=== PATIENT | female | born 1950 | race African-American/Black ===

== ENCOUNTER 2017-04-20 18:53 | Inpatient (IN) | payer OTHER ==
[2017-04-20] MEDS ORDERED: LORazepam 2 MG/ML SDV VIAL ONE (19:06)
[2017-04-20] MEDS ORDERED: NALOXONE HCL 0.4 MG/ML VIAL IVPUSH ONE (19:07)
[2017-04-20 19:27] LABS: BASOPHIL 0.6 % (0-2.0); EOSINOPHIL 0.1 % (0-4.5); MCH 29.2 pg (25.7-33.7); MCHC 32.6 g/dl (32.0-36.0); MEAN CELL VOLUME 89.6 fl (80-96); MEAN PLT VOLUME 8.5 fl (7.5-11.1); NEUTROPHILS 87.5 % (42.8-82.8); PLATELET COUNT 187 K/MM3 (134-434); RDW 18.1 % (11.6-15.6)
--- NOTE | 2017-04-20 19:47 | PDOC ---
History of Present Illness - General Chief Complaint: Injury Stated Complaint: FALL Time Seen by Provider: 04/20/17 19:04 History Source: Patient Exam Limitations: Clinical Condition - History of Present Illness Initial Comments: This is a female of unknown age and name with unknown medical history who presents BIBA after her called 911 because she had fallen on the floor and was not able to pick herself up after being on the floor for about 24 hours. EMS states that the patient was laying on the carpeted floor on their arrival on scene at her home. The explained that he found her on the floor yesterday but she said she felt fine, so he did not call 911 until he saw her in the same place on the floor this evening. The patient herself is minimally verbal but here in the ED she is able to convey that she has no pain, no headache, and she has been having left-sided weakness for the past three days which is what caused her to fall yesterday. She notes recently having been admitted to the hospital (states recently discharged back home) but is unable to say why she was admitted. She denies any recent illness. She cannot communicate her medical history or what medications she takes. She denies any heroin or opiate use. Past History - Past Medical History Allergies/Adverse Reactions: Allergies Allergy/AdvReac Type Severity Reaction Status Date / Time No Allergy Information Allergy Verified 04/20/17 19:02 Available Home Medications: Ambulatory Orders Unobtainable [Unobtainable] 04/21/17 Review of Systems - Review of Systems Able to Perform ROS?: No (clinical condition) *Physical Exam - Physical Exam General Appearance: Yes: Disheveled, Other (smells of urine, red carpet threads scattered in hair, unkempt, initially having an apparent diffuse tonic-clonic seizure which lasts about 30 seconds and resolves without intervention, initially not wearing C-collar) HEENT: positive: Hearing Grossly Normal, Other (mild left-sided subconjunctival hemorrhage, pupils are pinpoint bilaterally, left-sided raccoon eye, TMs not visualized due to cerumen impaction, no Cutler sign, no CSF rhinorrhea or otorrhea seen, small amount of yellow eye discharge bilaterally, small amount of thick oral secretions on lips, no tongue bite/lesion but small inferior lip skin tear, ). negative: Nasal Congestion Neck: positive: Trachea midline, Supple. negative: Tender, Rigid Respiratory/Chest: positive: Lungs Clear, Normal Breath Sounds. negative: Respiratory Distress, Crackles, Rhonchi, Stridor, Wheezing Cardiovascular: positive: Regular Rhythm, Regular Rate. negative: Murmur Gastrointestinal/Abdominal: positive: Normal Bowel Sounds, Soft. negative: Tender, Organomegaly, Pulsatile Mass, Guarding Musculoskeletal: positive: Normal Inspection. negative: Decreased Range of Motion, Vertebral Tenderness Extremity: positive: Normal Capillary Refill, Normal Inspection, Normal Range of Motion. negative: Tender, Cyanosis Integumentary: positive: Normal Color, Dry, Warm. 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 house II-XII NML intact, Fully Oriented, Alert, Normal Mood/ Affect, Normal Response, Motor Strength 5/5 Heart Score/ECG Review - History History: Moderately suspicious - Electrocardiogram EKG: Non specific repolarization disturbance - Age Age: >/= 65 - Risk Factors Based on the list above the patient has:: No risk factors known - Troponin Troponin: >/=3x normal limit - Score Heart Score - Total: 6 (Pt is a Jennifer Carranza at the time of this HEART score, no PMH known) ED Treatment Course - LABORATORY CBC & Chemistry Diagram: 04/20/17 19:10 04/20/17 20:25 - RADIOLOGY Radiology Studies Ordered: EXAM#: TYPE/EXAM: RESULT: [id number] CT/HEAD CT WITHOUT CONTRAST Cranial CT without contrast Clinical information: altered mental status; fall Multiplanar imaging was performed. No intracranial hemorrhage is seen. There is no CT evidence of intracranial injury or calvarial fracture. No discrete infarct is identified within the limitations of CT. There is no gross mass lesion. No abnormal attenuation is noted. Involutional changes are seen with mild ventricular dilatation. The mastoid air cells and partially imaged paranasal sinuses demonstrate no opacification. Impression: No CT evidence of acute intracranial pathology. Reported By: Lawrence Gunderson MD 04/20/171945 EXAM#: TYPE/EXAM: RESULT: [id number] CT/CERVICAL SPINE CT W/O CONTR Cervical spine CT (without contrast) Clinical information: fall There is no CT evidence of fracture or traumatic malalignment. Apparent incidental note is made of curvilinear calcification within the central canal posteriorly at levels C4-C6 probably on a degenerative basis. There is mild to moderate multilevel ventral spondylosis as well as mild multilevel bilateral facet arthropathy. The perivertebral soft tissues demonstrate no discrete abnormality. Impression: No fracture is identified. Reported By: Lawrence Gunderson MD 04/20/172004 Comments: No e/o active infectious process or other acute cardiopulmonary processes Medical Decision Making - Medical Decision Making Middle-aged female arrives via EMS as Jennifer Carranza with unknown PMH and unknown date. Active seizure with tonic-clonic movements all limbs, trunk, head lasts about 30 seconds. Confusing recent history of having fallen to the ground yesterday, found by , still on floor today and so 911 was called. Patient not moving right arm or leg, motor strength 1/5 right and 5/5 left, but sensory intact bilaterally. Able to answer yes/no to about 10 questions before beginning to seize again, lasts 1 minute. Pupils pinpoint on arrival without change with Narcan. Pt taken to CT with 1 mg Ativan drawn up in case of repeat seizure. Pt given Ativan during third seizure, then 1 gm Keppra, no repeat seizures. DDX includes but not limited to CVA, encephalitis (i.e. HSV), meningitis, ACS, sepsis/infection. Ordered is CT head/neck, CXR, CBCD, CMP, Mg, Phos, blood cx, lactate, cardiac profile, EKG, coags. ASA given as well. Initial EKG with significant limb lead artifact but no precordial ST-T changes or pathological q-waves. 04/20/17 21:05 Lactate results 2.7, troponin >2, CPK >3000, NICOLÁS as well. Pt re-assessed, sleeping with snoring respirations and protecting airway, opens eyes only to sternal rub. Pt opens eyes to sternal rub only, otherwise unreactive to pain, incomprehensible sounds currently. 04/20/17 22:30 Did not do LP because the patient did not complain of head/neck/back pain, was not febrile. Did not do tPA because the patient noted right sided weakness for 3 days, now high risk for hemorrhagic conversion. 04/20/17 23:20 Pt's repeat EKG shows ST elevations inferiorly with pathologic q-waves in III. Did not give heparin despite ST elevations and Q-waves inferiorly because of risk for hemorrhagic conversion. 04/21/17 00:25 Dr. Sims did speak with technical trainer Dr. Moss who agrees with plan to hold heparin. Also notes little value in PCI at this point as she does not have reciprocal ST depressions on EKG, no active STEMI. Pt is admitted to hospitalist team, ICU bed, Neuro and Cardiology consults placed. *DC/Admit/Observation/Transfer Diagnosis at time of Disposition: Lactic acidosis, Seizure, NICOLÁS (acute kidney injury) CVA (cerebral vascular accident) Qualifiers: CVA mechanism: unspecified Qualified Code(s): I63.9 - Cerebral infarction, unspecified UTI (urinary tract infection) Qualifiers: Urinary tract infection type: acute cystitis Hematuria presence: without hematuria Qualified Code(s): N30.00 - Acute cystitis without hematuria Rhabdomyolysis Qualifiers: Rhabdomyolysis type: non-traumatic Qualified Code(s): M62.82 - Rhabdomyolysis - Discharge Dispostion Condition at time of disposition: Guarded Admit: Yes NIH Stroke Scale - Initial Evaluation Level of consciousness: Not alert, but arousable with minimal stimulation Ask patient the month and their age: Both incorrect Ask patient to open & close eyes; make fist and let go: Obeys both correctly Best gaze (horizontal eye movement): Normal Visual field testing: No visual field loss Facial paresis (Show teeth/raise eyebrows/close eyes tight): Complete paralysis of one or both sides (Upper and lower face) Motor Function: Left Arm: Normal Motor Function: Right Arm: No movement Motor Function: Left Leg: Normal (extends leg 30 degrees for 5 seconds without drift) Motor Function: Right Leg: No movement Limb Ataxia: Present in one limb Sensory(Use pinprick test arms,legs,trunk,face/side to side): Normal Best language (Describe picture, name items, read sentences): Severe aphasia Dysarthria (read several words): Mild to moderate slurring of words Extinction and Inattention: Inattention or extinction bilaterally to one of the sensory modalities - Total Score NIH Stroke Scale Score: 19
[2017-04-20 19:51] LABS: INR 0.98 (0.82-1.09); PROTHROMBIN TIME (PATIENT) 10.8 SEC (9.98-11.88)
[2017-04-20] MEDS ORDERED: levETIRAcetam 500 MG/5 ML INJECTION VIAL IVPB ONE ×2 (19:51→20:03)
[2017-04-20 19:53] LABS: ACTIVATED PTT 23.8 SECONDS (26.9-34.4)
[2017-04-20 20:00] LABS: URINE APPEARANCE CLOUDY; URINE BILIRUBIN NEGATIVE (NEGATIVE); URINE BLOOD 1+ (NEGATIVE); URINE COLOR DKYELLOW; URINE GLUCOSE (UA) NEGATIVE (NEGATIVE); URINE KETONE TRACE (NEGATIVE); URINE NITRITE NEGATIVE (NEGATIVE); URINE UROBILINOGEN NEGATIVE mg/dL (0.2-1.0)
[2017-04-20 20:04] LABS: URINE LEUK ESTERASE 3+ (NEGATIVE); URINE PROTEIN 1+ (NEGATIVE)
[2017-04-20 20:08] LABS: URINE BACTERIA RARE /hpf (NONE SEEN); URINE MUCUS FEW; URINE WBC 25 /hpf (3-5)
[2017-04-20 20:18] LABS: URINE MARIJUANA THC NEGATIVE ng/ml (CUTOFF=50)
[2017-04-20 21:21] LABS: ALCOHOL < 5.0 mg/dl (0-5)
[2017-04-20 21:25] LABS: ALBUMIN 3.6 g/dl (3.4-5.0); ANION GAP 8 (8-16); BILIRUBIN,TOTAL 1.6 mg/dL (0.2-1.0); CALCIUM 9.8 mg/dL (8.5-10.1); CO2 30 mmol/L (21-32); CREATININE 1.2 mg/dL (0.55-1.02); GLUCOSE,RANDOM 102 mg/dL (74-106); MAGNESIUM 2.3 mg/dL (1.8-2.4); PHOSPHOROUS 2.5 mg/dL (2.5-4.9); SGOT/AST 139 U/L (15-37); SGPT/ALT 59 U/L (12-78); TOT PROT 7.9 g/dl (6.4-8.2)
[2017-04-20 21:39] LABS: SALICYLATE < 4.0 mg/dl (0.0-30.0)
[2017-04-20 21:40] LABS: ALK PHOS 67 U/L (45-117)
[2017-04-20 21:41] LABS: CPK 3458 IU/L (26-192)
[2017-04-20 21:42] LABS: TROPONIN I 2.74 ng/ml (0.00-0.05)
[2017-04-20] MEDS ORDERED: CEFTRIAXONE 1 GM in DEXTROSE 5%-WATER - 50 ML IVPB ONE (22:00)
[2017-04-20] MEDS ORDERED: CEFTRIAXONE 50 ML ONE (22:20)
[2017-04-20] MEDS ORDERED: SODIUM CHLORIDE 2,000 ML IV STA (22:21)
--- NOTE | 2017-04-20 22:47 | CONSULT ---
Consult Consult Specialty:: Critical Care/Pulm Reason for Consultation:: Altered mental status - History of Present Illness Chief Complaint: unable to obtain per patient, "altered mental status" per report History of Present Illness: This is a 74-year-old female with unknown past medical history who presented to the ED via EMS today after having fallen approximately 24 hours ago. Per report , the patient was BIBA after her activated 911 because she had fallen on the floor. Per the 's report (obtained from chart review) she was found lying on the floor yesterday and she said to him that she felt fine. He decided not to call 911 at the time but did call today when she was found in the same place. Per EMS on their arrival she was lying on the floor and was unable to provide any detailed history. Upon arrival to the ED she was minimally verbal but was able to deny pain and headache. She endorsed left- sided weakness for the past three days which she stated was the cause of her fall. She reports a recent hospital admission but did not provide any further information. In the ED, T 99.1, HR 85, BP 129/107, RR 19 with SpO2 100% on NC 2 LPM. Initial labs were notable for WBC 19, Cr 1.2 (unknown baseline), Lactate 2.7, CK 3458, Trop 27 and UA with 25 WBCs. While in the ED per report she had 4 generalized tonic clonic seizures each lasting less than 1 minutes. She received Lorazepam IVP and was loaded with Keppra per neurology. A CT head was negative for acute bleed and CT spine did not show any fracture. She was given a dose of Ceftriaxone, 2 L normal saline and is being sent to the ICU for further management. Of note a Utox was +benzos (unclear if obtained post Lorazepam). - History Source History Provided By: Medical Record Limitations to Obtaining History: Clinical Condition - Smoking History Smoking history: Unknown if ever smoked - Social History Usual Living Arrangement: With Spouse Home Medications - Allergies Allergies/Adverse Reactions: Allergies Allergy/AdvReac Type Severity Reaction Status Date / Time No Allergy Information Allergy Verified 04/20/17 19:02 Available Family Disease History - Family Disease History Family History: Unable to Obtain Physical Exam Vital Signs: Vital Signs Temperature 99.1 F 04/20/17 19:02 Pulse Rate 83 04/20/17 19:54 Respiratory Rate 12 04/20/17 19:54 Blood Pressure 102/72 04/20/17 19:54 O2 Sat by Pulse Oximetry (%) 100 04/20/17 20:45 Labs: CBC, BMP 04/20/17 19:10 04/20/17 20:25
[2017-04-21] MEDS ORDERED: SODIUM CHLORIDE 1,000 ML IV SCH ×3 (00:45→15:15)
--- NOTE | 2017-04-21 01:07 | PN ---
Teaching Attending Note Name of Resident: Stefan Henley ATTENDING PHYSICIAN STATEMENT I saw and evaluated the patient. I reviewed the resident's note and discussed the case with the resident. I agree with the resident's findings and plan as documented. SUBJECTIVE: Elderly female that was brought for evaluation with altered mental status . According to EDP and ER staff patient arrived with paramedics after she was found down on the floor unable to get up 1 day. She was extremely lethargic and disoriented upon arrival. She had 3 episodes of generalized tonic clonic seizures in ED for which she received Ativan IV . No further history was able to be collected. No prior records are available. ED course/workup was significant for UTI Leukocytosis Elevated Lactate level Abnormal EKG Abnormal physical exam - right hemiparesis OBJECTIVE: Vital Signs Temperature 99 F 04/21/17 05:00 Pulse Rate 79 04/21/17 05:00 Respiratory Rate 20 04/21/17 05:00 Blood Pressure 113/74 04/21/17 05:00 O2 Sat by Pulse Oximetry (%) 100 04/21/17 01:51 Constitutional: Yes: No Distress, Poor Hygeine Eyes: Yes: PERRL (Left conjunctival hemorrhage) HENT: Yes: Atraumatic, Normocephalic Neck: Yes: Supple, Trachea Midline Cardiovascular: Yes: Regular Rate and Rhythm, S1, S2 Respiratory: Yes: CTA Bilaterally Gastrointestinal: Yes: WNL, Soft, Hyperactive Bowel Sounds Renal/: Yes: Handy Present Extremities: Yes: WNL Neurological: Yes: Facial Droop (R facial droop. RUE withdraws to pain. 4/5 strength LUE. LLE 4/5. RLE not wothdrawing. Garbled speech.), Lethargy Labs: Abnormal Lab Results 04/20/17 04/20/17 04/20/17 19:10 19:10 19:44 WBC 19.0 H RBC 5.32 H Hgb 15.5 H Hct 47.7 H RDW 18.1 H Neutrophils % 87.5 H Lymphocytes % 4.8 L PTT (Actin FS) 23.8 L BUN Creatinine Lactic Acid Total Bilirubin AST Creatine Kinase CK-MB (CK-2) Troponin I Urine Protein 1+ H Urine Ketones Trace H Urine Blood 1+ H Acetaminophen 04/20/17 04/20/17 04/20/17 20:20 20:20 20:25 WBC RBC Hgb Hct RDW Neutrophils % Lymphocytes % PTT (Actin FS) BUN 32 H Creatinine 1.2 H Lactic Acid 2.7 H* Total Bilirubin 1.6 H AST 139 H Creatine Kinase 3458 H CK-MB (CK-2) 12.338 H Troponin I 2.74 H* Urine Protein Urine Ketones Urine Blood Acetaminophen < 2.0 L 04/21/17 04/21/17 00:30 00:30 WBC RBC Hgb Hct RDW Neutrophils % Lymphocytes % PTT (Actin FS) BUN Creatinine Lactic Acid 2.3 H* Total Bilirubin AST Creatine Kinase 2735 H CK-MB (CK-2) 11.276 H Troponin I 2.55 H* Urine Protein Urine Ketones Urine Blood Acetaminophen EKG ECG was significant for ST elevations in the inferior murray with Q waves however EKG is poor quality ASSESSMENT AND PLAN: 1. Acute right sided hemiparesis - acute CVA complicated by new onset seizure . No evidence of bleed on CT . Out of the window for TPA - ICU monitoring - telemetry - neuro checks - prmissive HTN - ASA rectally - MRI - Swallow eval - c/w Keppra IV 2. Acute Rhabdomyolisis and Acute Renal Failure- likely secondary to fall - IVF at 125 cc/hr - monitor CPK - monitor BMP 3. Severe sepsis secondary to UTI - iv rocephine - urine cultures - repeat lactic acid 4. NSTEMI - as per cardiology heparin was placed on hold - ASA rectally - EKG - ECHO
--- NOTE | 2017-04-21 01:15 | CONSULT ---
Consult Consult Specialty:: Pulm/Critical Care Reason for Consultation:: Altered mental status - History of Present Illness Chief Complaint: Per records "altered mental status" History of Present Illness: This is a 74-year-old female with unknown past medical history who presented to the ED via EMS today after having fallen approximately 24 hours ago. Per report , the patient was BIBA after her activated 911 because she had fallen on the floor. Per the 's report (obtained from chart review) she was found lying on the floor yesterday and she said to him that she felt fine. He decided not to call 911 at the time but did call today when she was found in the same place. Per EMS on their arrival she was lying on the floor and was unable to provide any detailed history. Upon arrival to the ED she was minimally verbal but was able to deny pain and headache. She endorsed right- sided weakness for the past three days which she stated was the cause of her fall. She reports a recent hospital admission but did not provide any further information. In the ED, T 99.1, HR 85, BP 129/107, RR 19 with SpO2 100% on NC 2 LPM. Initial labs were notable for WBC 19, Cr 1.2 (unknown baseline), Lactate 2.7, CK 3458, Trop 2.7 and UA with 25 WBCs. While in the ED per report she had 4 generalized tonic clonic seizures each lasting less than 1 minute. She received Lorazepam IVP and was loaded with Keppra per neurology. She has persistent right-sided hemiparesis. A CT head was negative for acute bleed and CT spine did not show any fracture. MRI brain pending. Per neuro out of the window for TPA. Also, of note a Utox was +benzos (unclear if obtained post Lorazepam). Additionally, ECG was significant for ST elevations in the inferior murray with Q waves and cardiology was curbsided. Given the time frame per cards the only intervention recommended was ASA. Heparin was considered but held in the setting of CVA. She received Ceftriaxone, 2L NS and is now being admitted to ICU for further care. On arrival to ICU, she reports her name is Sherri. She is intermittently answering yes/no questions but not providing further history. She is able to follow simples commands. She is moving the left side spontaneously, withdrawing to pain in the RUE. - History Source History Provided By: Medical Record Limitations to Obtaining History: Clinical Condition (Unable to obtain history per patient) - Smoking History Smoking history: Unknown if ever smoked Home Medications - Allergies Allergies/Adverse Reactions: Allergies Allergy/AdvReac Type Severity Reaction Status Date / Time No Allergy Information Allergy Verified 04/20/17 19:02 Available - Home Medications Home Medications: Ambulatory Orders Unobtainable [Unobtainable] 04/21/17 Family Disease History - Family Disease History Family History: Unable to Obtain Review of Systems Unable to obtain ROS, reason: unable to obtain, Physical Exam Vital Signs: Vital Signs Temperature 99.1 F 04/20/17 19:02 Pulse Rate 94 H 04/21/17 00:58 Respiratory Rate 25 H 04/21/17 00:58 Blood Pressure 110/71 04/21/17 00:58 O2 Sat by Pulse Oximetry (%) 100 04/21/17 00:58 Constitutional: Yes: No Distress, Poor Hygeine Eyes: Yes: PERRL (Left conjunctival hemorrhage) HENT: Yes: Atraumatic, Normocephalic Neck: Yes: Supple, Trachea Midline Cardiovascular: Yes: Regular Rate and Rhythm, S1, S2 Respiratory: Yes: CTA Bilaterally Gastrointestinal: Yes: WNL, Soft, Hyperactive Bowel Sounds Renal/: Yes: Handy Present Extremities: Yes: WNL Neurological: Yes: Facial Droop (R facial droop. RUE withdraws to pain. 4/5 strength LUE. LLE 4/5. RLE not wothdrawing. Garbled speech.), Lethargy Labs: CBC 04/20/17 19:10 Troponin, BNP 04/20/17 04/20/17 04/21/17 19:10 20:25 00:30 Troponin I Cancelled 2.74 H* 2.55 H* CMP Sodium 139 mmol/L (136-145) 04/20/17 20:25 Potassium 3.6 mmol/L (3.5-5.1) 04/20/17 20:25 Chloride 101 mmol/L (98-107) 04/20/17 20:25 Carbon Dioxide 30 mmol/L (21-32) 04/20/17 20:25 Anion Gap 8 (8-16) 04/20/17 20:25 BUN 32 mg/dL (7-18) H 04/20/17 20:25 Creatinine 1.2 mg/dL (0.55-1.02) H 04/20/17 20:25 Creat Clearance w eGFR 44.16 (>60) 04/20/17 20:25 POC Glucometer 163.31020 UNITS (()) 04/20/17 19:10 Random Glucose 102 mg/dL (74-106) 04/20/17 20:25 Lactic Acid 2.3 mmol/L (0.4-2.0) H* 04/21/17 00:30 Calcium 9.8 mg/dL (8.5-10.1) 04/20/17 20:25 Phosphorus 2.5 mg/dL (2.5-4.9) 04/20/17 20:25 Magnesium 2.3 mg/dL (1.8-2.4) 04/20/17 20:25 Total Bilirubin 1.6 mg/dL (0.2-1.0) H 04/20/17 20:25 AST 139 U/L (15-37) H 04/20/17 20:25 ALT 59 U/L (12-78) 04/20/17 20:25 Alkaline Phosphatase 67 U/L (45-117) 04/20/17 20:25 Creatine Kinase 2735 IU/L (26-192) H 04/21/17 00:30 Creatine Kinase Index 0.3 % (0.0-5.0) 04/20/17 20:25 CK-MB (CK-2) 12.338 ng/mL (0.5-3.6) H 04/20/17 20:25 Troponin I 2.55 ng/ml (0.00-0.05) H* 04/21/17 00:30 Total Protein 7.9 g/dl (6.4-8.2) 04/20/17 20:25 Albumin 3.6 g/dl (3.4-5.0) 04/20/17 20:25 Initial Vital Signs Temp Pulse Resp BP Pulse Ox 99.1 F 85 19 129/107 100 04/20/17 19:02 04/20/17 19:02 04/20/17 19:02 04/20/17 19:02 04/20/17 19:02 Active Medications Generic Name Dose Route Start Last Admin Trade Name Freq PRN Reason Stop Dose Admin Chlorhexidine Gluconate 1 applic 04/21/17 22:00 Hibiclens For Decolonization - TP HS CLEMENTE Sodium Chloride 1,000 mls @ 100 mls/hr 04/21/17 01:11 Normal Saline - IV ASDIR CLEMENTE Ceftriaxone Sodium 1 gm/ 100 mls @ 200 mls/hr 04/21/17 10:00 Dextrose IVPB DAILY CLEMENTE Levetiracetam 500 mg 04/21/17 10:00 Keppra Injection - IVPB BID CLEMENTE Mupirocin 1 applic 04/21/17 10:00 Bactroban Ointment (For Decolonization) - NS 04/26/17 09:59 BID CLEMENTE Imaging - Results Cat Scan: Report Reviewed EKG: Pending Problem List - Problems (1) NICOLÁS (acute kidney injury) Code(s): N17.9 - ACUTE KIDNEY FAILURE, UNSPECIFIED (2) CVA (cerebral vascular accident) Code(s): I63.9 - CEREBRAL INFARCTION, UNSPECIFIED Qualifiers: CVA mechanism: unspecified Qualified Code(s): I63.9 - Cerebral infarction, unspecified (3) Lactic acidosis Code(s): E87.2 - ACIDOSIS (4) Seizure Code(s): R56.9 - UNSPECIFIED CONVULSIONS Assessment/Plan A/P: This is a 74-year-old female with unknown past medical history who was BIBA after being found at home on the floor for about 24 hours found to have right-sided weakness c/w CVA as well as elevated troponin and ST changes with Q waves with c/c/b seizure activity now being admitted to the ICU for further care. Neuro: Right-sided paralysis c/w CVA with initial CT Head negative for acute bleed with c/c/b seizure activity now s/p Keppra load and altered mental status -Neurology consulted, to follow -Not within window for TPA -Pending MRI Brain -Continue Keppra -Consider cEEG -Lipid panel -Frequent neuro checks -Dysphagia eval -Statin when LFTs improve CV: Elevated troponin with ECG s/f ST changes and Q waves -Consult cardiology -Continuous telemetry -ASA per cards -No role for Heparin given CVA per cards -Trend Trop -TTE -Trend lactate -Repeat ECG Renal: Acute kidney injury (unknown baseline) likely in the setting of dehydration given poor PO intake with elevated lactate -IVFs as needed -Handy for strict Is and Os -Trend Cr and electrolytes -Consider renal US and urine lytes if no improvement s/p IVF resuscitation Pulm: Stable on NC -High risk for aspiration in setting of CVA -HOB elevated -Supplemental O2 as needed ID: Leukocytosis c/f underlying infection with urine WBC 25 -Ceftriaxone -Reza-culture -Follow up urine culture -Trend fever and WBC GI: NPO for now -Dyshpagia eval -BR Endo: No active issues -FS -AISS PPX: Venodynes Total Critical Care Time: 35 mins CHRISTIAN Layne
--- NOTE | 2017-04-21 01:17 | HP ---
CHIEF COMPLAINT: fall, weakness PCP: unknown HISTORY OF PRESENT ILLNESS: History unable to be obtained. Per Ed "This is a female of unknown age and name with unknown medical history who presents BIBA after her called 911 because she had fallen on the floor and was not able to pick herself up after being on the floor for about 24 hours. EMS states that the patient was laying on the carpeted floor on their arrival on scene at her home. The explained that he found her on the floor yesterday but she said she felt fine, so he did not call 911 until he saw her in the same place on the floor this evening. The patient herself is minimally verbal but here in the ED she is able to convey that she has no pain, no headache, and she has been having left-sided weakness for the past three days which is what caused her to fall yesterday. She notes recently having been admitted to the hospital (states recently discharged back home) but is unable to say why she was admitted. She denies any recent illness. She cannot communicate her medical history or what medications she takes. She denies any heroin or opiate use. In the ED, patient began having 4 generalized tonic clonic seizures, lasting 1 min. She received lorazepam and was given Keppra per neurology. ER course was notable for: (1) VS- wnl, (2) WBC- 19, lacic acid-2.7, BUN-23, Cr-1.2, CK- 3458, Troponin-2.74, CKMB- 12.338, AST-139, T bili- 1.6 (3) UA- wbc-25 (4) GCS-7 per ED, EKG-St elevations inferiorly with q waves in III (5) Keppra, ativan, narcan, rocephin Recent Travel: unknown PAST MEDICAL HISTORY: unknown PAST SURGICAL HISTORY: unknown Social History: Smoking: unknown Alcohol: unknown Drugs: unknown Family History: Allergies No Allergy Information Available Allergy (Verified 04/20/17 19:02) HOME MEDICATIONS: REVIEW OF SYSTEMS -- unable to be obtained CONSTITUTIONAL: Absent: fever, chills, diaphoresis, generalized weakness, malaise, loss of appetite, weight change HEENT: Absent: rhinorrhea, nasal congestion, throat pain, throat swelling, difficulty swallowing, mouth swelling, ear pain, eye pain, visual changes CARDIOVASCULAR: Absent: chest pain, syncope, palpitations, irregular heart rate, lightheadedness , peripheral edema RESPIRATORY: Absent: cough, shortness of breath, dyspnea with exertion, orthopnea, wheezing, stridor, hemoptysis GASTROINTESTINAL: Absent: abdominal pain, abdominal distension, nausea, vomiting, diarrhea, constipation, melena, hematochezia GENITOURINARY: Absent: dysuria, frequency, urgency, hesitancy, hematuria, flank pain, genital pain MUSCULOSKELETAL: Absent: myalgia, arthralgia, joint swelling, back pain, neck pain SKIN: Absent: rash, itching, pallor HEMATOLOGIC/IMMUNOLOGIC: Absent: easy bleeding, easy bruising, lymphadenopathy, frequent infections ENDOCRINE: Absent: unexplained weight gain, unexplained weight loss, heat intolerance, cold intolerance NEUROLOGIC: Absent: headache, focal weakness or paresthesias, dizziness, unsteady gait, seizure, mental status changes, bladder or bowel incontinence PSYCHIATRIC: Absent: anxiety, depression, suicidal or homicidal ideation, hallucinations. PHYSICAL EXAMINATION Vital Signs - 24 hr 04/20/17 04/20/17 04/20/17 19:02 19:54 20:45 Temperature 99.1 F Pulse Rate 85 Pulse Rate [ 83 Apical] Respiratory 19 12 Rate Blood Pressure 129/107 Blood Pressure 102/72 [Left Arm] O2 Sat by Pulse 100 100 100 Oximetry (%) 04/20/17 22:20 Temperature Pulse Rate Pulse Rate [ Apical] Respiratory Rate Blood Pressure 93/67 Blood Pressure [Left Arm] O2 Sat by Pulse Oximetry (%) General: Disheveled, awake, confused, lethargic, unable to fully respond to questions HEENT: Hearing normal, Left eye subconjunctival hemorrhage, pinpoint pupils, left sided racoon eye, thick oral secretions on lips Neck: tachea midline, supple, no jvd Lungs: Lungs clear to auscultation bilaterally, no wheezes, crackles, or accessory muscle use Heart: s1/s2, rrr. no murmurs, gallops, or rubs GI: BS+, nontender, nondistended, no organomegaly, no guarding Neuro: Right facial droop, 4/5 LUE/LLE, Lethargic Laboratory Results - last 24 hr 04/20/17 04/20/17 04/20/17 19:10 19:10 19:10 WBC 19.0 H RBC 5.32 H Hgb 15.5 H Hct 47.7 H MCV 89.6 MCH 29.2 MCHC 32.6 RDW 18.1 H Plt Count 187 MPV 8.5 Neutrophils % 87.5 H Lymphocytes % 4.8 L Monocytes % 7.0 Eosinophils % 0.1 Basophils % 0.6 PT with INR 10.80 INR 0.98 PTT (Actin FS) 23.8 L Sodium Cancelled Potassium Cancelled Chloride Cancelled Carbon Dioxide Cancelled Anion Gap Cancelled BUN Cancelled Creatinine Cancelled Creat Clearance w eGFR Cancelled POC Glucometer Random Glucose Cancelled Lactic Acid Calcium Cancelled Phosphorus Cancelled Magnesium Cancelled Total Bilirubin Cancelled AST Cancelled ALT Cancelled Alkaline Phosphatase Cancelled Creatine Kinase Creatine Kinase Index CK-MB (CK-2) Troponin I Total Protein Cancelled Albumin Cancelled Urine Color Urine Appearance Urine pH Ur Specific [place] Urine Protein Urine Glucose (UA) Urine Ketones Urine Blood Urine Nitrite Urine Bilirubin Urine Urobilinogen Urine RBC Urine WBC Urine Bacteria Urine Mucus Salicylates Opiates Screen Methadone Screen Acetaminophen Barbiturate Screen Phencyclidine Screen Ur Amphetamines Screen MDMA (Ecstasy) Screen Benzodiazepines Screen Cocaine Screen U Marijuana (THC) Screen Alcohol, Quantitative 04/20/17 04/20/17 04/20/17 19:10 19:10 19:44 WBC RBC Hgb Hct MCV MCH MCHC RDW Plt Count MPV Neutrophils % Lymphocytes % Monocytes % Eosinophils % Basophils % PT with INR INR PTT (Actin FS) Sodium Potassium Chloride Carbon Dioxide Anion Gap BUN Creatinine Creat Clearance w eGFR POC Glucometer [id number] Random Glucose Lactic Acid Calcium Phosphorus Magnesium Total Bilirubin AST ALT Alkaline Phosphatase Creatine Kinase Cancelled Creatine Kinase Index CK-MB (CK-2) Troponin I Cancelled Total Protein Albumin Urine Color Dkyellow Urine Appearance Cloudy Urine pH 7.0 Ur Specific [place] 1.015 Urine Protein 1+ H Urine Glucose (UA) Negative Urine Ketones Trace H Urine Blood 1+ H Urine Nitrite Negative Urine Bilirubin Negative Urine Urobilinogen Negative Urine RBC None Urine WBC 25 Urine Bacteria Rare Urine Mucus Few Salicylates Opiates Screen Methadone Screen Acetaminophen Barbiturate Screen Phencyclidine Screen Ur Amphetamines Screen MDMA (Ecstasy) Screen Benzodiazepines Screen Cocaine Screen U Marijuana (THC) Screen Alcohol, Quantitative 04/20/17 04/20/17 04/20/17 19:44 20:20 20:20 WBC RBC Hgb Hct MCV MCH MCHC RDW Plt Count MPV Neutrophils % Lymphocytes % Monocytes % Eosinophils % Basophils % PT with INR INR PTT (Actin FS) Sodium Potassium Chloride Carbon Dioxide Anion Gap BUN Creatinine Creat Clearance w eGFR POC Glucometer Random Glucose Lactic Acid 2.7 H* Calcium Phosphorus Magnesium Total Bilirubin AST ALT Alkaline Phosphatase Creatine Kinase Creatine Kinase Index CK-MB (CK-2) Troponin I Total Protein Albumin Urine Color Urine Appearance Urine pH Ur Specific [place] Urine Protein Urine Glucose (UA) Urine Ketones Urine Blood Urine Nitrite Urine Bilirubin Urine Urobilinogen Urine RBC Urine WBC Urine Bacteria Urine Mucus Salicylates < 4.0 Opiates Screen Negative Methadone Screen Negative Acetaminophen < 2.0 L Barbiturate Screen Negative Phencyclidine Screen Negative Ur Amphetamines Screen Negative MDMA (Ecstasy) Screen Negative Benzodiazepines Screen Positive Cocaine Screen Negative U Marijuana (THC) Screen Negative Alcohol, Quantitative < 5.0 04/20/17 20:25 WBC RBC Hgb Hct MCV MCH MCHC RDW Plt Count MPV Neutrophils % Lymphocytes % Monocytes % Eosinophils % Basophils % PT with INR INR PTT (Actin FS) Sodium 139 Potassium 3.6 Chloride 101 Carbon Dioxide 30 Anion Gap 8 BUN 32 H Creatinine 1.2 H Creat Clearance w eGFR 44.16 POC Glucometer Random Glucose 102 Lactic Acid Calcium 9.8 Phosphorus 2.5 Magnesium 2.3 Total Bilirubin 1.6 H AST 139 H ALT 59 Alkaline Phosphatase 67 Creatine Kinase 3458 H Creatine Kinase Index 0.3 CK-MB (CK-2) 12.338 H Troponin I 2.74 H* Total Protein 7.9 Albumin 3.6 Urine Color Urine Appearance Urine pH Ur Specific [place] Urine Protein Urine Glucose (UA) Urine Ketones Urine Blood Urine Nitrite Urine Bilirubin Urine Urobilinogen Urine RBC Urine WBC Urine Bacteria Urine Mucus Salicylates Opiates Screen Methadone Screen Acetaminophen Barbiturate Screen Phencyclidine Screen Ur Amphetamines Screen MDMA (Ecstasy) Screen Benzodiazepines Screen Cocaine Screen U Marijuana (THC) Screen Alcohol, Quantitative ASSESSMENT/PLAN: Female presenting s/p fall for 24 hours admitted for AMS r/o CVA with generalized tonic clonic seizures, rhabdomyolysis, and elevated troponin. #Altered Mental Status, likely 2/2 to CVA vs UTI with generalized tonic clonic seizures -ICU monitoring -Echo pending -Neuro checks q2h for worsening mental status -Speech/Swallow consult, Jodi Bermudez -Keppra 500 mg iv bid -IVF NS @ 125 cc/hr -MRI pending -Neurology consulted, Dr. Vasquez #Rhabdomyolysis 2/2 to fall -IVF NS @ 125 cc/hr -Repeat CPK in am -Repeat labs in am #Troponinemia, demand vs NSTEMI -Troponins elevated -Will trend troponins/ekg -Repeat EKG in AM -Echo pending #Severe Sepsis 2/2 to UTI -Continue ceftriaxone 1 gm IV -Lactic acid elevated -Will repeat q2h until normalizes -Pt received 1 dose of ceftriaxone 1 gm IV -UCX, BCX pending #FEN/GI -IVF NS @ 125 cc/hr -wnl -NPO #PPx -SCDs, heparin c/i at this time in the setting of CVA -GI- not indicated #Dispo -Admit patient to ICU Visit type - Emergency Visit Emergency Visit: Yes ED Registration Date: 04/21/17 Care time: The patient presented to the Emergency Department on the above date and was hospitalized for further evaluation of their emergent condition. - New Patient This patient is new to me today: Yes Date on this admission: 04/21/17 - Critical Care Critical Care patient: No
[2017-04-21 01:21] LABS: TROPONIN I 2.55 ng/ml (0.00-0.05)
[2017-04-21 01:46] VITALS: BMI 23.6
--- NOTE | 2017-04-21 03:14 | PDOC ---
Attending Attestation - Resident Resident Name: Zenaida Baker - ED Attending Attestation I have performed the following: I have examined & evaluated the patient, The case was reviewed & discussed with the resident, I agree w/resident's findings & plan, Exceptions are as noted - HPI HPI: 04/21/17 03:09 74-year-old patient with unknown medical history brought in by EMS for right- sided hemiparesis after she was found on the floor by her and has remained in that position for a period of 24 hours. Upon arrival in the ER, patient was noted to have intermittent clonic movement of the lower extremities (right greater than left), and suffered 2 generalized tonic-clonic seizures without regaining normal mental status. - Physicial Exam PE: 04/21/17 03:10 On initial evaluation, patient was awake, answering simple commands, with with dense right-sided hemiplegia. Pupils are noted to be pinpoint but reactive bilaterally; Babinski is positive bilaterally. cta; rrr; - Medical Decision Making 04/21/17 03:11 Patient 74-year-old female with unknown medical history who presented to the ER with dense right-sided hemiplegia after a 24-hour period of immobility, followed by recurrent generalized tonic-clonic seizures which required IV Ativan for termination and was consequently loaded with 1 g of Keppra IV. Patient was able to protect her airway and no pulling secretions noted ( decision was made not to intubate at that time). CT of head showed no evidence of acute intracranial pathology. Neurology was consulted. He agreed with administration of Keppra. MRI of brain was recommended. EKG also revealed ST segment elevations in II, III, and F aVF with Q waves but no reciprocal changes likely indicating a completed HI. Increased ICP is less likely. Patient's troponin and CPK noted to be elevated. I suspect a component of rhabdomyolysis. We will administer aspirin rectally; will also administer IV ceftriaxone for suspected UTI. At this time, will hold off on anticoagulation with heparin due to risk of hemorrhagic conversion of patient's suspected ischemic stroke. Case was also discussed with Dr. Patterson of cardiology who agreed with the plan of care. Will admit to the ICU for further evaluation. 04/21/17 03:18 After a period of observation, patient able to answer simple questions. Denies pain. Patient is not a candidate for PCI at this time. Will continue as planned.
[2017-04-21 06:24] LABS: BASOPHIL 0.2 % (0-2.0); MCH 30.3 pg (25.7-33.7); MCHC 33.4 g/dl (32.0-36.0); MEAN CELL VOLUME 90.6 fl (80-96); MEAN PLT VOLUME 8.5 fl (7.5-11.1); NEUTROPHILS 81.8 % (42.8-82.8); PLATELET COUNT 137 K/MM3 (134-434); RDW 17.8 % (11.6-15.6); WHITE BLOOD COUNT 14.4 K/mm3 (4.0-10.0)
[2017-04-21 06:47] LABS: ANION GAP 11 (8-16); BILIRUBIN,TOTAL 1.3 mg/dL (0.2-1.0); CALCIUM 9.3 mg/dL (8.5-10.1); CO2 28 mmol/L (21-32); CREATININE 0.9 mg/dL (0.55-1.02); GLUCOSE,RANDOM 102 mg/dL (74-106); SGOT/AST 97 U/L (15-37); SGPT/ALT 46 U/L (12-78)
[2017-04-21 06:48] LABS: ALK PHOS 53 U/L (45-117); TOT PROT 6.7 g/dl (6.4-8.2)
[2017-04-21] MEDS: SODIUM CHLORIDE 1,000 ML IV SCH ×2 (08:55→12:05)
[2017-04-21] MEDS ORDERED: LORazepam 2 MG/ML SDV VIAL ONE (09:14)
[2017-04-21] MEDS ORDERED: PT OWN MED DRAWER 7, Y5N ONE ×2 (09:20→14:57)
[2017-04-21] MEDS ORDERED: MUPIROCIN 2% TOPICAL OINTMENT FOR DECOLONIZATION NS SCH ×2 (10:00→22:00)
[2017-04-21] MEDS ORDERED: CEFTRIAXONE 1 GM in DEXTROSE 5%-WATER - 50 ML IVPB SCH (10:00)
[2017-04-21] MEDS ORDERED: levETIRAcetam 500 MG/5 ML INJECTION VIAL IVPB SCH (10:00)
[2017-04-21] MEDS ORDERED: ASPIRIN 300 MG SUPP.RECT PR SCH (10:00)
[2017-04-21 10:06] LABS: TROPONIN I 1.66 ng/ml (0.00-0.05)
--- NOTE | 2017-04-21 10:25 | EKG ---
Test Reason : Blood Pressure : / mmHG Vent. Rate : 080 BPM Atrial Rate : 080 BPM P-R Int : 128 ms QRS Dur : 086 ms QT Int : 462 ms P-R-T Axes : 082 011 026 degrees QTc Int : 532 ms NORMAL SINUS RHYTHM INFERIOR INFARCT (CITED ON OR BEFORE 20-APR-2017) PROLONGED QT ABNORMAL ECG WHEN COMPARED WITH ECG OF 20-APR-2017 23:09, NO SIGNIFICANT CHANGE WAS FOUND Confirmed by HUANG ALVAREZ, BRENTON ([id number]) on 04/21/2017 10:25:39 AM Referred By: KRYSTYNA SCHUSTER Confirmed By:BRENTON ENCINAS MD
--- NOTE | 2017-04-21 10:26 | EKG ---
Test Reason : Blood Pressure : / mmHG Vent. Rate : 103 BPM Atrial Rate : 103 BPM P-R Int : 140 ms QRS Dur : 070 ms QT Int : 408 ms P-R-T Axes : 092 023 029 degrees QTc Int : 534 ms POOR DATA QUALITY, INTERPRETATION MAY BE ADVERSELY AFFECTED SINUS TACHYCARDIA INFERIOR INFARCT , AGE UNDETERMINED PROLONGED QT ABNORMAL ECG WHEN COMPARED WITH ECG OF 20-APR-2017 23:05, PREVIOUS ECG HAS UNDETERMINED RHYTHM, NEEDS REVIEW Confirmed by BRENTON ENCINAS MD ([id number]) on 04/21/2017 10:26:13 AM Referred By: Confirmed By:BRENTON ENCINAS MD
[2017-04-21] MEDS ORDERED: CEFTRIAXONE 50 ML IVPB SCH (10:27)
[2017-04-21] MEDS ORDERED: PNEUMOC 13-VAL CONJ-DIP CRM/PF 0.5 ML DISP.SYRIN IM ONE (11:00)
--- NOTE | 2017-04-21 11:17 | CONSULT ---
Consult - text type - Consultation Consultation Note: Neurology This is a female of unknown age and name with unknown medical history who presented BIBA after her called 911 because she had fallen on the floor and was not able to pick herself up after being on the floor for reportedly 24 hours. EMS states that the patient was laying on the carpeted floor on their arrival on scene at her home. The explained that he found her on the floor and she said she felt fine, so he did not call 911 until he saw her in the same place on the floor therafter. The patient was minimally responsive in the ED but able to state she was having left-sided weakness for the past three days which is what caused her to fall but thought it would pass and did not come to the hospital. She was out of TPA window. There was a question of generalized seizure and positive troponins. CT head completed and did not show acute changes. She was admitted and sent to ICU for close management. She is able to tell me her name is Joe Isidro and name of president but did not know exact location or date. Able to tell birthdate. Trying to complete MRI brain and would need to fill out questionaire. Past History - Past Medical History Allergies/Adverse Reactions: Allergies Allergy/AdvReac Type Severity Reaction Status Date / Time No Allergy Information Allergy Verified 04/20/17 19:02 Available Home Medication List Medication Instructions Recorded Confirmed Type Unobtainable [Unobtainable] 04/21/17 04/21/17 History Active Medications Generic Name Dose Route Start Last Admin Trade Name Teofilo PRN Reason Stop Dose Admin Aspirin 300 mg 04/21/17 10:00 04/21/17 09:37 Asa - SD 300 mg DAILY CLEMENTE Administration Chlorhexidine Gluconate 1 applic 04/21/17 22:00 Hibiclens For Decolonization - TP HS CLEMENTE Sodium Chloride 1,000 mls @ 125 mls/hr 04/21/17 06:29 04/21/17 08:55 Normal Saline - IV Not Given ASDIR CLEMENTE Ceftriaxone Sodium 50 mls @ 100 mls/hr 04/21/17 10:27 Rocephin 1gm Ivpb (Pre-Docked) IVPB DAILY CLEMENTE Levetiracetam 500 mg 04/21/17 10:00 04/21/17 09:17 Keppra Injection - IVPB 500 mg BID CLEMENTE Administration Mupirocin 1 applic 04/21/17 10:00 04/21/17 09:43 Bactroban Ointment (For Decolonization) - NS 04/26/17 09:59 1 applic BID CLEMENTE Administration Review of Systems - Review of Systems Able to Perform ROS?: No (clinical condition) *Physical Exam - Physical Exam General Appearance: Yes: Disheveled, Other (smells of urine, red carpet threads scattered in hair, unkempt, initially having an apparent diffuse tonic-clonic seizure which lasts about 30 seconds and resolves without intervention, initially not wearing C-collar) HEENT: positive: Hearing Grossly Normal, Neck: positive: Trachea midline, Supple. negative: Tender, Rigid Respiratory/Chest: positive: Lungs Clear, Normal Breath Sounds. negative: Respiratory Distress, Crackles, Rhonchi, Stridor, Wheezing Cardiovascular: positive: Regular Rhythm, Regular Rate. negative: Murmur Gastrointestinal/Abdominal: positive: Normal Bowel Sounds, Soft. negative: Tender, Organomegaly, Pulsatile Mass, Guarding Musculoskeletal: positive: Normal Inspection. negative: Decreased Range of Motion, Vertebral Tenderness Extremity: positive: Normal Capillary Refill, Normal Inspection, Normal Range of Motion. negative: Tender, Cyanosis Integumentary: positive: Normal Color, Dry, Warm. negative: Erythema, Rash, Bruising Neurologic: Limited exam, not participating in full confrontation, move LUE slight more than right, ?3/5 on R, ? 2/5 on L, tactile stimulation intact but limited on R, gait deferred CBCD WBC 14.4 K/mm3 (4.0-10.0) H 04/21/17 05:10 RBC 4.31 M/mm3 (3.60-5.2) 04/21/17 05:10 Hgb 13.0 GM/dL (10.7-15.3) D 04/21/17 05:10 Hct 39.0 % (32.4-45.2) D 04/21/17 05:10 MCV 90.6 fl (80-96) 04/21/17 05:10 MCHC 33.4 g/dl (32.0-36.0) 04/21/17 05:10 RDW 17.8 % (11.6-15.6) H 04/21/17 05:10 Plt Count 137 K/MM3 (134-434) D 04/21/17 05:10 MPV 8.5 fl (7.5-11.1) 04/21/17 05:10 CMP Sodium 144 mmol/L (136-145) 04/21/17 05:10 Potassium 3.4 mmol/L (3.5-5.1) L 04/21/17 05:10 Chloride 105 mmol/L (98-107) 04/21/17 05:10 Carbon Dioxide 28 mmol/L (21-32) 04/21/17 05:10 Anion Gap 11 (8-16) 04/21/17 05:10 BUN 27 mg/dL (7-18) H 04/21/17 05:10 Creatinine 0.9 mg/dL (0.55-1.02) D 04/21/17 05:10 Creat Clearance w eGFR > 60 (>60) 04/21/17 05:10 Random Glucose 102 mg/dL (74-106) 04/21/17 05:10 Calcium 9.3 mg/dL (8.5-10.1) 04/21/17 05:10 Total Bilirubin 1.3 mg/dL (0.2-1.0) H 04/21/17 05:10 AST 97 U/L (15-37) H D 04/21/17 05:10 ALT 46 U/L (12-78) D 04/21/17 05:10 Alkaline Phosphatase 53 U/L (45-117) D 04/21/17 05:10 Total Protein 6.7 g/dl (6.4-8.2) 04/21/17 05:10 Albumin 3.0 g/dl (3.4-5.0) L 04/21/17 05:10 CARDIAC ENZYMES Creatine Kinase 2095 IU/L (26-192) H 04/21/17 08:25 Troponin I 1.66 ng/ml (0.00-0.05) H* 04/21/17 08:25 - RADIOLOGY CT/HEAD CT WITHOUT CONTRAST Impression: No CT evidence of acute intracranial pathology. Cervical spine CT (without contrast) Impression: No fracture is identified. Medical Decision Making female of unknown age and name with unknown medical history who presented BIBA after her called 911 because she had fallen on the floor and was not able to pick herself up after being on the floor for reportedly 24 hours. EMS states that the patient was laying on the carpeted floor on their arrival on scene at her home. The explained that he found her on the floor and she said she felt fine, so he did not call 911 until he saw her in the same place on the floor therafter. The patient was minimally responsive in the ED but able to state she was having left-sided weakness for the past three days which is what caused her to fall but thought it would pass and did not come to the hospital. There was a question of generalized seizure and positive troponins. CT head completed and did not show acute changes. She was admitted and sent to ICU for close management. She is able to tell me her name is Joe Isidro and name of president but did not know exact location or date. Able to tell birthdate. Trying to complete MRI brain and would need to fill out questionaire. -Patient started on Keppra for seizures, 500mg twice daily, no witnessed seizures during my visit -Ativan if needed -EEG -MRI brain when able to complete questionaire -ASA -Check CD, Echo -Monitor cardiac enzymes, follow up cardiology rec'd -PT/OT as tolerated -DVT ppx -IV hydration for rhabdo, monitor CPK Critical care 40 mins
--- NOTE | 2017-04-21 12:50 | CON.CARD ---
Consult Consult Specialty:: cardiology Referred by:: Aroldo Roper Reason for Consultation:: Stroke and myocardial infarction. - History of Present Illness Chief Complaint: Found on the floor by the . History of Present Illness: The patient is a 74-year-old female who was found on the floor by her confused and lethargic with a dense right hemiparesis. The patient was brought to the emergency room by ambulance. She had seizure activity in the ER. She was placed on Keppra. She is sleepy, barely arousable, not following commands. There ECG is consistent with an acute inferior wall infarction. Cardiac markers are elevated. The patient is in no apparent distress. - History Source History Provided By: Medical Record Limitations to Obtaining History: Unresponsive - Past Medical History ...: No - Alcohol/Substance Use Hx Alcohol Use: (unknown) - Smoking History Smoking history: Unknown if ever smoked Home Medications - Allergies Allergies/Adverse Reactions: Allergies Allergy/AdvReac Type Severity Reaction Status Date / Time No Allergy Information Allergy Verified 04/20/17 19:02 Available - Home Medications Home Medications: Ambulatory Orders Unobtainable [Unobtainable] 04/21/17 Review of Systems - Review of Systems Constitutional: reports: No Symptoms Eyes: reports: No Symptoms HENT: reports: No Symptoms Neck: reports: No Symptoms Cardiovascular: reports: No Symptoms Respiratory: reports: No Symptoms Gastrointestinal: reports: No Symptoms Genitourinary: reports: No Symptoms Breasts: reports: No Symptoms Reported Musculoskeletal: reports: No Symptoms Integumentary: reports: No Symptoms Neurological: reports: Change in LOC, Seizure Endocrine: reports: No Symptoms Hematology/Lymphatic: reports: No Symptoms Psychiatric: reports: No Symptoms Vital Signs: Vital Signs Temperature 99.1 F 04/21/17 12:00 Pulse Rate 92 H 04/21/17 10:00 Respiratory Rate 20 04/21/17 12:00 Blood Pressure 108/63 04/21/17 12:00 O2 Sat by Pulse Oximetry (%) 100 04/21/17 09:00 Constitutional: Yes: Well Nourished, No Distress Eyes: Yes: WNL HENT: Yes: WNL, Atraumatic, Normocephalic Neck: Yes: WNL, Supple, Trachea Midline Respiratory: Yes: WNL, Regular, CTA Bilaterally Gastrointestinal: Yes: WNL, Normal Bowel Sounds, Soft Renal/: Yes: WNL Cardiovascular: Yes: WNL, Regular Rate and Rhythm JVD: No Carotid Bruit: No PMI: Non-Displaced Heart Sounds: Yes: S1, S2 Murmur: Yes: Systolic Murmur, Grade 2 Musculoskeletal: Yes: WNL Extremities: Yes: WNL Edema: No Peripheral Pulses WNL: Yes Integumentary: Yes: WNL Neurological: Yes: Lethargy, Seizure, Unresponsive, Other (Dense right hemiparesis) - Other Data Labs, Other Data: CBC, BMP 04/21/17 05:10 04/21/17 05:10 INR, PTT INR 0.98 (0.82-1.09) 04/20/17 19:10 Troponin, BNP 04/21/17 08:25 Troponin I 1.66 H* Troponin, BNP 04/21/17 08:25 Troponin I 1.66 H* Assessment/Plan 75-year-old female, was found on the floor by the . Noted to have a right hemiparesthesias, seizure activity, ruling in for an inferior STEMI. The patient woke up and was more responsive earlier today. Currently lethargic, barely arousable, not following commands. The patient is in sinus rhythm. There is no CHF. Would start Ecotrin 81 mg daily. Start Toprol-XL 25 mg daily. If the patient cannot receive oral medications, would give metoprolol 5 mg IV every 6 hours. Please arrange for an echocardiogram No need for further intervention nor testing of this point. Conservative cardiac care.
--- NOTE | 2017-04-21 12:56 | PN ---
Teaching Attending Note Name of Resident: Nadira Michelle ATTENDING PHYSICIAN STATEMENT I saw and evaluated the patient. I reviewed the resident's note and discussed the case with the resident. I agree with the resident's findings and plan as documented. SUBJECTIVE: Patient seen and examined in the ICU. Lethargic but interactive. Able to tell us her name and that she is in the hospital. Denies CP or SOB. No VILCHIS. No gross change in weakness. Intake & Output 04/18/17 04/19/17 04/20/17 04/21/17 23:59 23:59 23:59 23:59 Intake Total 300 Output Total 600 Balance -300 Weight 185 lb 154 lb 9 oz Last Vital Signs Temp Pulse Resp BP Pulse Ox 99.1 F 92 H 20 108/63 100 04/21/17 12:00 04/21/17 10:00 04/21/17 12:00 04/21/17 12:00 04/21/17 09:00 Active Medications Aspirin (Asa -) 300 mg [place] DAILY [facility] Last Admin: 04/21/17 09:37 Dose: 300 mg Chlorhexidine Gluconate (Hibiclens For Decolonization -) 1 applic TP HS [facility] Sodium Chloride (Normal Saline -) 1,000 mls @ 125 mls/hr IV ASDIR [facility] Last Admin: 04/21/17 12:05 Dose: 125 mls/hr Ceftriaxone Sodium (Rocephin 1gm Ivpb (Pre-Docked)) 50 mls @ 100 mls/hr IVPB DAILY [facility] Levetiracetam (Keppra Injection -) 500 mg IVPB BID [facility] Last Admin: 04/21/17 09:17 Dose: 500 mg Metoprolol Succinate (Toprol Xl -) 12.5 mg PO DAILY [facility] Mupirocin (Bactroban Ointment (For Decolonization) -) 1 applic NS BID [facility] Stop: 04/26/17 09:59 Last Admin: 04/21/17 09:43 Dose: 1 applic Constitutional: Yes: Awake and alert, NAD Eyes: Yes: PERRL (Left conjunctival hemorrhage) HENT: Yes: Atraumatic, Normocephalic Neck: Yes: Supple, Trachea Midline Cardiovascular: Yes: Regular Rate and Rhythm, S1, S2 Respiratory: Yes: CTA Bilaterally Gastrointestinal: Yes: WNL, Soft, Hyperactive Bowel Sounds Renal/: Yes: Handy Present Extremities: Yes: WNL Neurological: Yes: Facial Droop (R facial droop. RUE withdraws to pain. 4/5 strength LUE. LLE 4/5. RLE not wothdrawing. Garbled speech.), Lethargy Labs: Laboratory Results - last 24 hr 04/20/17 04/20/17 04/20/17 19:10 19:10 19:10 WBC 19.0 H RBC 5.32 H Hgb 15.5 H Hct 47.7 H MCV 89.6 MCH 29.2 MCHC 32.6 RDW 18.1 H Plt Count 187 MPV 8.5 Neutrophils % 87.5 H Lymphocytes % 4.8 L Monocytes % 7.0 Eosinophils % 0.1 Basophils % 0.6 PT with INR 10.80 INR 0.98 PTT (Actin FS) 23.8 L Sodium Cancelled Potassium Cancelled Chloride Cancelled Carbon Dioxide Cancelled Anion Gap Cancelled BUN Cancelled Creatinine Cancelled Creat Clearance w eGFR Cancelled POC Glucometer Random Glucose Cancelled Lactic Acid Calcium Cancelled Phosphorus Cancelled Magnesium Cancelled Total Bilirubin Cancelled AST Cancelled ALT Cancelled Alkaline Phosphatase Cancelled Creatine Kinase Creatine Kinase Index CK-MB (CK-2) Troponin I Total Protein Cancelled Albumin Cancelled Urine Color Urine Appearance Urine pH Ur Specific Bath Urine Protein Urine Glucose (UA) Urine Ketones Urine Blood Urine Nitrite Urine Bilirubin Urine Urobilinogen Urine RBC Urine WBC Urine Bacteria Urine Mucus Salicylates Opiates Screen Methadone Screen Acetaminophen Barbiturate Screen Phencyclidine Screen Ur Amphetamines Screen MDMA (Ecstasy) Screen Benzodiazepines Screen Cocaine Screen U Marijuana (THC) Screen Alcohol, Quantitative 04/20/17 04/20/17 04/20/17 19:10 19:10 19:44 WBC RBC Hgb Hct MCV MCH MCHC RDW Plt Count MPV Neutrophils % Lymphocytes % Monocytes % Eosinophils % Basophils % PT with INR INR PTT (Actin FS) Sodium Potassium Chloride Carbon Dioxide Anion Gap BUN Creatinine Creat Clearance w eGFR POC Glucometer [id number] Random Glucose Lactic Acid Calcium Phosphorus Magnesium Total Bilirubin AST ALT Alkaline Phosphatase Creatine Kinase Cancelled Creatine Kinase Index CK-MB (CK-2) Troponin I Cancelled Total Protein Albumin Urine Color Dkyellow Urine Appearance Cloudy Urine pH 7.0 Ur Specific Bath 1.015 Urine Protein 1+ H Urine Glucose (UA) Negative Urine Ketones Trace H Urine Blood 1+ H Urine Nitrite Negative Urine Bilirubin Negative Urine Urobilinogen Negative Urine RBC None Urine WBC 25 Urine Bacteria Rare Urine Mucus Few Salicylates Opiates Screen Methadone Screen Acetaminophen Barbiturate Screen Phencyclidine Screen Ur Amphetamines Screen MDMA (Ecstasy) Screen Benzodiazepines Screen Cocaine Screen U Marijuana (THC) Screen Alcohol, Quantitative 04/20/17 04/20/17 04/20/17 19:44 20:20 20:20 WBC RBC Hgb Hct MCV MCH MCHC RDW Plt Count MPV Neutrophils % Lymphocytes % Monocytes % Eosinophils % Basophils % PT with INR INR PTT (Actin FS) Sodium Potassium Chloride Carbon Dioxide Anion Gap BUN Creatinine Creat Clearance w eGFR POC Glucometer Random Glucose Lactic Acid 2.7 H* Calcium Phosphorus Magnesium Total Bilirubin AST ALT Alkaline Phosphatase Creatine Kinase Creatine Kinase Index CK-MB (CK-2) Troponin I Total Protein Albumin Urine Color Urine Appearance Urine pH Ur Specific Bath Urine Protein Urine Glucose (UA) Urine Ketones Urine Blood Urine Nitrite Urine Bilirubin Urine Urobilinogen Urine RBC Urine WBC Urine Bacteria Urine Mucus Salicylates < 4.0 Opiates Screen Negative Methadone Screen Negative Acetaminophen < 2.0 L Barbiturate Screen Negative Phencyclidine Screen Negative Ur Amphetamines Screen Negative MDMA (Ecstasy) Screen Negative Benzodiazepines Screen Positive Cocaine Screen Negative U Marijuana (THC) Screen Negative Alcohol, Quantitative < 5.0 04/20/17 04/21/17 04/21/17 20:25 00:30 00:30 WBC RBC Hgb Hct MCV MCH MCHC RDW Plt Count MPV Neutrophils % Lymphocytes % Monocytes % Eosinophils % Basophils % PT with INR INR PTT (Actin FS) Sodium 139 Potassium 3.6 Chloride 101 Carbon Dioxide 30 Anion Gap 8 BUN 32 H Creatinine 1.2 H Creat Clearance w eGFR 44.16 POC Glucometer Random Glucose 102 Lactic Acid 2.3 H* Calcium 9.8 Phosphorus 2.5 Magnesium 2.3 Total Bilirubin 1.6 H AST 139 H ALT 59 Alkaline Phosphatase 67 Creatine Kinase 3458 H 2735 H Creatine Kinase Index 0.3 0.4 CK-MB (CK-2) 12.338 H 11.276 H Troponin I 2.74 H* 2.55 H* Total Protein 7.9 Albumin 3.6 Urine Color Urine Appearance Urine pH Ur Specific Bath Urine Protein Urine Glucose (UA) Urine Ketones Urine Blood Urine Nitrite Urine Bilirubin Urine Urobilinogen Urine RBC Urine WBC Urine Bacteria Urine Mucus Salicylates Opiates Screen Methadone Screen Acetaminophen Barbiturate Screen Phencyclidine Screen Ur Amphetamines Screen MDMA (Ecstasy) Screen Benzodiazepines Screen Cocaine Screen U Marijuana (THC) Screen Alcohol, Quantitative 04/21/17 04/21/17 04/21/17 05:10 05:10 08:25 WBC 14.4 H RBC 4.31 Hgb 13.0 D Hct 39.0 D MCV 90.6 MCH 30.3 MCHC 33.4 RDW 17.8 H Plt Count 137 D MPV 8.5 Neutrophils % 81.8 Lymphocytes % 9.0 D Monocytes % 9.0 Eosinophils % 0.0 D Basophils % 0.2 PT with INR INR PTT (Actin FS) Sodium 144 Potassium 3.4 L Chloride 105 Carbon Dioxide 28 Anion Gap 11 BUN 27 H Creatinine 0.9 D Creat Clearance w eGFR > 60 POC Glucometer Random Glucose 102 Lactic Acid Calcium 9.3 Phosphorus Magnesium Total Bilirubin 1.3 H AST 97 H D ALT 46 D Alkaline Phosphatase 53 D Creatine Kinase 2095 H Creatine Kinase Index 0.3 CK-MB (CK-2) 7.549 H Troponin I 1.66 H* Total Protein 6.7 Albumin 3.0 L Urine Color Urine Appearance Urine pH Ur Specific Bath Urine Protein Urine Glucose (UA) Urine Ketones Urine Blood Urine Nitrite Urine Bilirubin Urine Urobilinogen Urine RBC Urine WBC Urine Bacteria Urine Mucus Salicylates Opiates Screen Methadone Screen Acetaminophen Barbiturate Screen Phencyclidine Screen Ur Amphetamines Screen MDMA (Ecstasy) Screen Benzodiazepines Screen Cocaine Screen U Marijuana (THC) Screen Alcohol, Quantitative 04/21/17 08:25 WBC RBC Hgb Hct MCV MCH MCHC RDW Plt Count MPV Neutrophils % Lymphocytes % Monocytes % Eosinophils % Basophils % PT with INR INR PTT (Actin FS) Sodium Potassium Chloride Carbon Dioxide Anion Gap BUN Creatinine Creat Clearance w eGFR POC Glucometer Random Glucose Lactic Acid 1.1 Calcium Phosphorus Magnesium Total Bilirubin AST ALT Alkaline Phosphatase Creatine Kinase Creatine Kinase Index CK-MB (CK-2) Troponin I Total Protein Albumin Urine Color Urine Appearance Urine pH Ur Specific Bath Urine Protein Urine Glucose (UA) Urine Ketones Urine Blood Urine Nitrite Urine Bilirubin Urine Urobilinogen Urine RBC Urine WBC Urine Bacteria Urine Mucus Salicylates Opiates Screen Methadone Screen Acetaminophen Barbiturate Screen Phencyclidine Screen Ur Amphetamines Screen MDMA (Ecstasy) Screen Benzodiazepines Screen Cocaine Screen U Marijuana (THC) Screen Alcohol, Quantitative Problem List - Problems (1) NICOLÁS (acute kidney injury) Code(s): N17.9 - ACUTE KIDNEY FAILURE, UNSPECIFIED (2) CVA (cerebral vascular accident) Code(s): I63.9 - CEREBRAL INFARCTION, UNSPECIFIED Qualifiers: CVA mechanism: unspecified Qualified Code(s): I63.9 - Cerebral infarction, unspecified (3) Lactic acidosis Code(s): E87.2 - ACIDOSIS (4) Seizure Code(s): R56.9 - UNSPECIFIED CONVULSIONS Assessment/Plan Follow Neuro exam ECHO Aspiration precautions O2 as needed BP monitoring AEDs per Neuro MRI Beta iron ABX Stroke unit Dr Early Critical care time spent in reviewing chart, evaluating patient and formulating plan - 36 minutes.
--- NOTE | 2017-04-21 13:00 | PN ---
Teaching Attending Note Name of Resident: Don Lopez ATTENDING PHYSICIAN STATEMENT I saw and evaluated the patient. I reviewed the resident's note and discussed the case with the resident. I agree with the resident's findings and plan as documented. SUBJECTIVE: Female of unknown age who reports falling 2 days ago while walking to the bathroom. states she felt weak and short of breath and her Right leg gave out causing her to fall. states that her attempted to get her off the ground but was unable to. at one point she attempted to get up again but fell. states she been having multiple falls and was hospitalized here several weeks/months ago due to falling. she states they contributed her falling to her drinking problem and was suppose to go to rehab but never went. currently only complaining of R hip pain and weakness on her R side. denies CP, SOB, fever, chills, N/V/C/D, tonic/clonic movements. does not have hx of seizure or withdrawal seizures. denies past medical history although she was taking a medication at one time but does not recall the name. does not recall having a seizure on arrival at the hospital. denies any metal or devices in her body, denies cardiac stent or any previous cardiac workup in the past. believes she did have MRI before but does not recall what for. states her name is Joe Isidro, is Osmel Isidro OBJECTIVE: Last Vital Signs Temp Pulse Resp BP Pulse Ox 99.1 F 92 H 20 108/63 100 04/21/17 12:00 04/21/17 10:00 04/21/17 12:00 04/21/17 12:00 04/21/17 09:00 General lethargic, slurred speech, delayed speech, disheleved, unkept CV S1 s2 RRR no murmur/rub/gallop Lungs CTA B/L anteriorly Abdomen soft NT/ND Extremities point tenderness over the R hip, Full ROM of the hip on passive movement. unable to assess active movement Neuro + facial droop. slurred speech, decreased sensation to RUE and RLE, strength 1/5 RUE and RLE. only follows some simple commands. gait testing deferred ASSESSMENT AND PLAN: Female of unknown age with PMH ETOH use unknown other medical history presented to the ER after found on the floor by her 1. Acute toxic metabolic encephalopathy- likely due to CVA vs tonic/clonic seizure. initial Head CT negative for acute pathology. appears mental status has improved since presentation. no repeated episodes of tonic/clonic activity since initial presentation. concern for seizure activity secondary to CVA which could be large vs hemorrhagic conversion although not seen on initial imaging. not that mental status has improved will obtain MRI/MRA head and neck. frequent neuro-checks. monitor for seizure like activity. evaluated by Neuro. speech and swallow eval. if able to tolerate po will start. asa, statin. on keppra for seizure prophylaxis. ativan prn for breakthrough seizure. fall and seizure precautions. utox + for BZD but was obtained after ativan given for seizure 2. Troponin leak-demand ischemia vs NSTEMI. Troponin peaked at 2.74. not started on heparin ggt and plavix due to concern of bleeding. no reports of chest pain prior to or at arrival. will ultimately require NMST vs cardiac cath to further assess. echo pending. Cardio consulted 3. SIRS-concern for UTI however does not have +UA. will stop ceftriaxone at this time. monitor. f/u cx 4. Lactic acidosis- likely due to seizure like activity. resolved 5. NICOLÁS- likley dehydration. now resolved 6. Mechanical fall- likely due to CVA vs ETOH intoxication vs other etiology. obtain hip and knee XR. pain control. PT assessment 7. ETOH use- reported by pt. no signs of withdrawal. monitor. will give banana bag. start thiamine/folate/mvi 8. Rhabdomyolsis- due to immobilization. improving with IVF. 9. Polycythemia- resolve with IVF 10. DVT ppx- will start lovenox once confirmed on repeat imaging no bleeding 11. MICU monitoring The care of this patient involved high complexity decision making to prevent further life threatening deterioration of the patient's condition and/or to evaluate & treat vital organ system(s) failure or risk of failure. 50 minutes
--- NOTE | 2017-04-21 13:52 | PN ---
Physical Exam: SUBJECTIVE: Patient seen and examined in ICU. Garbled speech difficult to understand. Denies any chest pain, chest pressure, SOB, or VILCHIS. OBJECTIVE: Vital Signs Period Temp Pulse Resp BP Sys/Levine Pulse Ox Last 24 Hr 99 F-99.4 F 74-94 16-25 103-128/63-89 100-100 Intake & Output 04/18/17 04/19/17 04/20/17 04/21/17 23:59 23:59 23:59 23:59 Intake Total 300 Output Total 600 Balance -300 Weight 83.915 kg 70.108 kg GENERAL: The patient is lethargic, but arousable. EYES: perrla, eomi, sclera anicteric, conjunctiva clear ENT: moist mucous membranes LUNGS: CTAB, no wheezes, no crackles, no accessory muscle use HEART: rrr, normal s1/s2, no murmur, rub or gallop ABDOMEN: Soft, ntnd : Handy present EXTREMITIES: 2+ pulses, wwp, no edema NEUROLOGICAL: Oriented x2 (knows name, at [facility] [place], but not year). R facial droop, RUE withdraws from pain, RLE no motor function, L sided spontaneous movement, 4/5 LUE and LLE motor strength CBC, BMP 04/21/17 05:10 04/21/17 05:10 Hepatic Panel Total Bilirubin 1.3 mg/dL (0.2-1.0) H 04/21/17 05:10 AST 97 U/L (15-37) H D 04/21/17 05:10 ALT 46 U/L (12-78) D 04/21/17 05:10 Alkaline Phosphatase 53 U/L (45-117) D 04/21/17 05:10 Albumin 3.0 g/dl (3.4-5.0) L 04/21/17 05:10 Troponin, BNP 04/20/17 04/20/17 04/21/17 04/21/17 19:10 20:25 00:30 08:25 Troponin I Cancelled 2.74 H* 2.55 H* 1.66 H* Laboratory Tests 04/20/17 04/20/17 04/21/17 04/21/17 20:20 20:25 00:30 08:25 Lactic Acid 2.7 H* 2.3 H* 1.1 Creatine Kinase 3458 H 2735 H 2095 H CK-MB (CK-2) 12.338 H 11.276 H 7.549 H Active Medications Aspirin (Ecotrin -) 81 mg PO DAILY [facility] Chlorhexidine Gluconate (Hibiclens For Decolonization -) 1 applic TP HS [facility] Sodium Chloride (Normal Saline -) 1,000 mls @ 125 mls/hr IV ASDIR [facility] Last Admin: 04/21/17 15:49 Dose: Not Given Folic Acid 1 mg/ Thiamine HCl 100 mg/ Multivitamins/Minerals 10 ml/ Sodium Chloride 1,000 mls @ 125 mls/hr IVPB ONCE ONE Stop: 04/22/17 00:04 Last Admin: 04/21/17 17:56 Dose: 125 mls/hr Levetiracetam (Keppra Injection -) 500 mg IVPB BID [facility] Metoprolol Succinate (Toprol Xl -) 25 mg PO DAILY [facility] Mupirocin (Bactroban Ointment (For Decolonization) -) 1 applic NS BID [facility] ASSESSMENT/PLAN: 75yo woman with unknown PMH who presents with R sided hemiparesis, seizures, and acute inferior wall STEMI. Head CT showed no acute hemorrhage; MRI scheduled for today. Unable to contact Osmel Isidro () at . #CV A: acute inferior wall STEMI, troponin down trending, ECHO wnl (EF 64.6%) -Cardiology consulted -started on ASA 81mg -start Metoprolol 25mg PO daily #Pulm -O2 as needed to maintain SpaO2>90% #Neuro -Neurology consulted -AEDs per neuro -EEG pending -MRI pending -Aspiration/fall precautions #Renal A: NICOLÁS/Rhabdomyolysis -Monitor I&Os -IVF #FEN -NS @ 125cc/hr -Replete K -Dysphagia puree diet with thin liquids per SPL eval #PPX -DVT - b/l SCDs #Dispo: transfer to /tele d/w with Dr. Nneka Michelle MD PGY-1 Visit type - Emergency Visit Emergency Visit: No - New Patient This patient is new to me today: Yes Date on this admission: 04/21/17 - Critical Care Critical Care patient: Yes Total Critical Care Time (in minutes): 35 Critical Care Statement: The care of this patient involved high complexity decision making to prevent further life threatening deterioration of the patient 's condition and/or to evaluate & treat vital organ system(s) failure or risk of failure.
[2017-04-21] MEDS ORDERED: POTASSIUM CHLORIDE 20 MEQ PREMIX IVPB 100 ML IVPB ONE (14:45)
--- NOTE | 2017-04-21 15:40 | CONSULT ---
Admitting History and Physical - Past Medical History ...: No - Smoking History Smoking history: Unknown if ever smoked - Alcohol/Substance Use Hx Alcohol Use: (unknown) History - Admission Reason For Visit: CVA UTI LACTIC ACIDOSIS - Hearing Hearing: Normal With Patient: No Speech Evaluation - Communication Primary Language: TURKMEN Communication: Yes: Simple Responses, Dysarthria (slow weaken movements of the articulators.), Aphasia (possible. confrontational speech , answering some question are difficult.) Oral Expression Ability: Yes: Moderate Impairment - Speech Production Dysarthria: Yes: Mixed Apraxia: Yes Able to Make Needs Known: Yes: Mildly Impaired Intelligibility: Yes: Mildly Impaired (reduced intelligibility secondary to weakness.) - Speech Characteristics Voice Loudness: Normal Voice Pitch: Yes: Normal Voice Phonatory-based Quality: Yes: Tremor, Weak Speech Pattern: Impaired Speech Clarity: < 50% Articulation: Yes: Imprecise Dysfluency: Yes: Tonic Rate of Speech: Too Slow (secondary to apraxic-like and dysarthric movements) - Language/Auditory Comprehension Follows: Yes: 1 Stage Simple Commands (WFL), 2 Stage Simple Commands (WFL), Complex Commands (has difficulty) Observation: Able to respond to yes/no queries: Yes, Yes/No Confusion: No, Comprehends Conversational Speech: Yes, Benefits from Slow Speech: Yes, Benefits from Repetiton: Yes, Benefits from Increased Volume of Speech: No - Language/Verbal Expression Aphasia: Yes: Fluent, Apraxia Able to Respond to Simple Queries: Yes: Moderately Impaired Able to Communicate Wants and Needs: Yes: Mildly Impaired Functional Communication Status: Yes: Mildly Impaired Aware of Errors: No Attempts to Correct Errors: Yes Use of Gestures: Yes Written Expression: not examined Oral Expression: reduced Reading Comprehension: not examined Calculations: not examined Attention: Yes: Mild Impairment - 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: Moderately Impaired Short Term Memory: Yes: Mildly Impaired Hemaniopsia: Yes: Right - Swallow Evaluation/Bedside Assessment Current Nutritional Intake: NPO Oral Secretions: Yes: Halitosis, Dryness, Tongue Coated Tracheostomy Present: No Patient on Ventilator: No Dentition: Yes: Edentulous, Missing Teeth Facial Symmetry at Rest: Facial Droop Right Facial Symmetry on Retraction: Facial Droop Right Facial Movement: Controlled Sensation: Reduced Right Facial Comment: reduced right sided weakness observed but WFL for single word speech /swall Jaw Position: Closed at Rest Against Resistance Opening: Weak (right side) Against Resistance Closing: Weak Pucker Lips: Droops Right Smile: Droops Right Lips, Comment: reduced right sided weakness observed but WFL for single word speech /swall Lingual Movement: Apraxic, Other Lingual Speed of Movement: Reduced Lingual Movement Strgth Against Opposition: Reduced Lingual Movement Characteristics: Jerky, Writhing Lingual Comment: reduced right sided weakness observed but WFL for single word speech /swall Soft Palate Description: Normal Color Hard Palate Description: Normal Color Gag Reflex: Weak Bite Reflex: Present Velopharyngeal Movement: Weak Right Laryngeal Elevation: Impaired Laryngeal Movement: Able to Palpate, Labored,delay initiation Needs Assistance: Yes Rate of Intake: Slow/Holding Bolus Size: Small Labial Seal: WFL Chewing: WFL Oral Prep Time: WFL A-P Transit: Impaired Pocketing: None Timing of Swallow: Delayed (2-4 seconds average) Coughing/Throat Clear: No Change in Voice: No Other Findings/Remarks: 66 female seen at bedside for swallow eval to r/o dysphagia. Pt is verbal cooperative A&Ox2. Admitted to [facility] for s/p fall, right side weakness and AMS. Pt vocal quality is reduced for connected speech. Airway protection is reduced with weak cough and clearing of the throat. Overall right sided weakness of face, haed and extremities observed. Pt is responsive to y/n questions and is able to answer with one word responses. Reduced articulation with connected speech and sentences. Pt given po trials of pureed and mech soft with total assistance revealed good acceptance, reduce bolus formation and transport with mech soft. Pharyngeal swallow are delayed 2-4 seconds average with no s/s of aspiration observed. Pt given po trials of thin and nectar thicken liquids with total assistance revealed via spoon and cup good acceptance, adequate bolus control and transport.Pharyngeal swallow are delayed 2-4 seconds average with no s/s of aspiration observed with thicken liquids. Weak cough observed with initial thin liquid trials. Recommendations - Speech Evaluation, Impression/Plan Impression: Pt presents with apraxic- dysarthric speech pattern and pharyngeal phase dysphagia for puree and liquids. No overt s/s of aspiration but cannot be ruled out at bedside. Recommended Therapies: Speech (d), Articulation (could benefit from intervention.), Swallowing Fdc Goals: tolerate the least restrictive diet consistency with out s/s of aspiration. Short Term Goals: tolerate puree and thicken liquids with out s/s of aspiration. Recommended Frequency for Therapy: Follow Up PRN - Dysphagia Impressions/Plan Swallowing Skills: Impaired Dysphagia Impressions: Mild Impairment *Silent aspiration: cannot be R/O at bedside Dysphagia Treatment Plan: Pharyngeal Resistive Exer, Small Bites, Trial Feedings (puree / nectar thicken liquids pt may have small sips of regular water.), Safe Rate, 1/2 tsp. at a time, Elevate HOB during feed, Other Dysphagia Evaluation Summary: Trial puree and nectar thicken liquids with total assistance as tolerated. Pt may have small sips of regular water via cup. Crush meds in pureed. Monitor nutritional intake and pulmonary status. Results given verbally to mobility scooter repairer and to pcp via chart. Recommendations: Neuro Consult (for right sided weakness) - Recommendations Diet Consistency: Dysphagia Pureed Medication Administration: Crushed with applesauce Liquids: Thin Liquids (water only), Ray Thick (for all other liquids.)
[2017-04-21] MEDS ORDERED: FOLIC ACID INJECTION - 1 MG, THIAMINE HCL 100 MG, MULTIVIT INJECTION ADULT 10 ML in SOD... IVPB ONE (16:05)
[2017-04-21] MEDS ORDERED: METOPROLOL SUCCINATE 25 MG TAB.SR.24H (FP) PO SCH (18:00)
--- NOTE | 2017-04-21 18:30 | PN ---
Physical Exam: SUBJECTIVE: Patient seen and examined at bedside. Patient drowsy and slow to awaken, but able to open eyes and follow commands. She is oriented to time and place. Speech delayed and slurred, but coherent. OBJECTIVE: Vital Signs Period Temp Pulse Resp BP Sys/Levine Pulse Ox Last 24 Hr 97.4 F-99.4 F 74-94 14-25 102-128/63-89 100-100 GENERAL: The patient is arousable to voice but drowsy. Oriented to time and place. HEAD: Normal with no signs of trauma. EYES: PEERL, extraocular movements intact, sclera anicteric, conjunctival injection in left eye. No ptosis. NECK: Trachea midline, full range of motion, supple. LUNGS: Breath sounds equal, clear to auscultation bilaterally, no wheezes, no crackles, no accessory muscle use. HEART: Regular rate and rhythm, S1, S2 without murmur, rub or gallop. ABDOMEN: Soft, nontender, nondistended, normoactive bowel sounds, no guarding, no rebound. EXTREMITIES: 2+ pulses, warm, well-perfused, no edema. NEUROLOGICAL: Speech slurred. Right sided facial droop noted. Right deviation of the tongue. Right lower extremity paresis. Left lower extremity 5/5. B/L 3/5 strength in both upper extremities. Parasthesia over right extremities. PSYCH: Normal mood, normal affect. SKIN: Warm, dry, normal turgor, no rashes or lesions noted Laboratory Results - last 24 hr 04/21/17 04/21/17 04/21/17 05:10 05:10 08:25 WBC 14.4 H RBC 4.31 Hgb 13.0 D Hct 39.0 D MCV 90.6 MCH 30.3 MCHC 33.4 RDW 17.8 H Plt Count 137 D MPV 8.5 Neutrophils % 81.8 Lymphocytes % 9.0 D Monocytes % 9.0 Eosinophils % 0.0 D Basophils % 0.2 Sodium 144 Potassium 3.4 L Chloride 105 Carbon Dioxide 28 Anion Gap 11 BUN 27 H Creatinine 0.9 D Creat Clearance w eGFR > 60 Random Glucose 102 Lactic Acid Calcium 9.3 Total Bilirubin 1.3 H AST 97 H D ALT 46 D Alkaline Phosphatase 53 D Creatine Kinase 2095 H Creatine Kinase Index 0.3 CK-MB (CK-2) 7.549 H Troponin I 1.66 H* Total Protein 6.7 Albumin 3.0 L 04/21/17 08:25 WBC RBC Hgb Hct MCV MCH MCHC RDW Plt Count MPV Neutrophils % Lymphocytes % Monocytes % Eosinophils % Basophils % Sodium Potassium Chloride Carbon Dioxide Anion Gap BUN Creatinine Creat Clearance w eGFR Random Glucose Lactic Acid 1.1 Calcium Total Bilirubin AST ALT Alkaline Phosphatase Creatine Kinase Creatine Kinase Index CK-MB (CK-2) Troponin I Total Protein Albumin Active Medications Generic Name Dose Route Start Last Admin Trade Name Freq PRN Reason Stop Dose Admin Aspirin 300 mg 04/22/17 10:00 Asa - [place] DAILY [facility] Chlorhexidine Gluconate 1 applic 04/21/17 22:00 Hibiclens For Decolonization - TP HS [facility] Sodium Chloride 1,000 mls @ 125 mls/hr 04/21/17 15:15 04/21/17 15:49 Normal Saline - IV Not Given ASDIR [facility] Folic Acid 1 mg/ Thiamine HCl 1,000 mls @ 125 mls/hr 04/21/17 16:05 04/21/17 17 :56 100 mg/ Multivitamins/Minerals IVPB 04/22/17 00:04 125 mls/hr 10 ml/ Sodium Chloride ONCE ONE Administration Levetiracetam 500 mg 04/21/17 22:00 Keppra Injection - IVPB BID [facility] Metoprolol Succinate 12.5 mg 04/21/17 18:00 Toprol Xl - PO DAILY [facility] Mupirocin 1 applic 04/21/17 22:00 Bactroban Ointment (For Decolonization) - NS 04/26/17 09:59 BID [facility] ASSESSMENT/PLAN: Female presenting s/p fall for 24 hours admitted for AMS r/o CVA with generalized tonic clonic seizures, rhabdomyolysis, and elevated troponin. -efforts made to reach patient's next of kin and to obtain medical records without results; will continue attempts. #Paresis and seizures 2/2 to CVA -Echo WNL -Neuro checks q2h for worsening mental status -Speech/Swallow consult: patient cleared for dysphagia puree -Carotid dopplers WNL -Keppra 500 mg iv bid -IVF NS @ 125 cc/hr -MRI shows infarcts in left temporal and parietal lobes as well as in left thalmus -Neurology consulted, Dr. Vasquez #Elevated CK 2/2 acute [place] vs seizure activity -IVF NS @ 125 cc/hr -CPK trending down; 2735 -> 2095 #Troponinemia 2/2 STEMI -Troponins trending down; 2.7 -> 2.5 -> 1.6 -RPT EKG consistent with STEMI as per cardio -ASA 81 -Toprolol XL 25mg -anticoagulation contraindicated in the setting of acute stroke -Echo WNL #Lactic Acidosis -ABX d/c; UA non consistent with infection -Lactic acid 1.1 now -UCX, BCX pending #NICOLÁS-resolved -cr. 1.2 on admission -cr. .9 now #FEN -IVF NS @ 125 cc/hr -potassium 3.4; 20meq KCL given, will recheck in AM -Dysphagia puree #Propylaxsis -SCDs, heparin c/i at this time in the setting of CVA -GI- not indicated #Dispo -patient transferred to [place] as per ICU team. Visit type - Emergency Visit Emergency Visit: Yes ED Registration Date: 04/21/17 Care time: The patient presented to the Emergency Department on the above date and was hospitalized for further evaluation of their emergent condition. - New Patient This patient is new to me today: Yes Date on this admission: 04/21/17 - Critical Care Critical Care patient: Yes Total Critical Care Time (in minutes): 35 Critical Care Statement: The care of this patient involved high complexity decision making to prevent further life threatening deterioration of the patient 's condition and/or to evaluate & treat vital organ system(s) failure or risk of failure.
[2017-04-21] MEDS: levETIRAcetam 500 MG/5 ML INJECTION VIAL IVPB SCH (21:11)
[2017-04-21] MEDS ORDERED: CHLORHEXIDINE GLUCONATE 4% CLEANSER FOR DECOLONIZATION TP SCH ×2 (22:00)
[2017-04-22 05:57] LABS: BASOPHIL 0.1 % (0-2.0); EOSINOPHIL 0.1 % (0-4.5); MCH 31.3 pg (25.7-33.7); MCHC 34.1 g/dl (32.0-36.0); MEAN CELL VOLUME 91.9 fl (80-96); MEAN PLT VOLUME 8.8 fl (7.5-11.1); NEUTROPHILS 78.5 % (42.8-82.8); PLATELET COUNT 118 K/MM3 (134-434); RDW 17.7 % (11.6-15.6); WHITE BLOOD COUNT 9.5 K/mm3 (4.0-10.0)
[2017-04-22 06:31] LABS: ALBUMIN 2.6 g/dl (3.4-5.0); ALK PHOS 50 U/L (45-117); ANION GAP 10 (8-16); BILIRUBIN,TOTAL 1.4 mg/dL (0.2-1.0); CALCIUM 8.6 mg/dL (8.5-10.1); CO2 26 mmol/L (21-32); CREATININE 0.6 mg/dL (0.55-1.02); GLUCOSE,RANDOM 87 mg/dL (74-106); PHOSPHOROUS 2.4 mg/dL (2.5-4.9); SGOT/AST 81 U/L (15-37); SGPT/ALT 41 U/L (12-78); TOT PROT 5.8 g/dl (6.4-8.2)
[2017-04-22] MEDS ORDERED: DEXTROSE 5%-0.45% SALINE 1,000 ML IV SCH (08:00)
--- NOTE | 2017-04-22 08:12 | PN ---
Physical Exam: 24H Events: yesterday: -MRI subacute/chronic L temporal/parietal lobes medially, small subacute L thalamic infarct posteriorly -Doppler - no HD sig stenoses -Hip XRAY - cannot exclude hip fx -Knee - no fx O/N: no events AM: more awake SUBJECTIVE: Patient seen and examined in ICU. More awake and conversant. Strength improving. Denies chest pain, chest pressure, shortness of breath. C/o of R hip pain. OBJECTIVE: Vital Signs Period Temp Pulse Resp BP Sys/Levine Pulse Ox Last 24 Hr 97.4 F-99.1 F 63-92 14-24 102-133/63-88 100-100 Intake & Output 04/19/17 04/20/17 04/21/17 04/22/17 23:59 23:59 23:59 23:59 Intake Total 1808 1150 Output Total 1700 800 Balance 108 350 Weight 83.915 kg 70.108 kg 69.989 kg GENERAL: The patient is lethargic, but arousable. EYES: perrla, eomi, sclera anicteric, conjunctiva clear ENT: moist mucous membranes LUNGS: CTAB, no wheezes, no crackles, no accessory muscle use HEART: rrr, normal s1/s2, no murmur, rub or gallop ABDOMEN: Soft, ntnd : Handy present EXTREMITIES: 2+ pulses, wwp, no edema NEUROLOGICAL: Oriented x2 (knows name, at [facility], but not year). R facial droop, RUE withdraws from pain, RLE no motor function, L sided spontaneous movement, 4/5 LUE and LLE motor strength CBC, BMP 04/22/17 05:00 04/22/17 05:00 Ca- 8.6 Phos - 2.4 Mg - 2.0 Microbiology 04/20/17 20:25 Blood - Peripheral Venous Blood Culture - Preliminary NO GROWTH OBTAINED AFTER 24 HOURS, INCUBATION TO CONTINUE FOR 4 DAYS. 04/20/17 20:20 Blood - Peripheral Venous Blood Culture - Preliminary NO GROWTH OBTAINED AFTER 24 HOURS, INCUBATION TO CONTINUE FOR 4 DAYS. Imaging: Brain MRI w/o contrast: -subacute/chronic cortical infarct in L terminal temporal/parietal lobes medially -small subacute L thalamic infarct posteriorly Carotid dopplers: no hemodynamically significant stenoses bilaterally Knee/Hip Xray: cannot exclude hip fx ASSESSMENT/PLAN: 75yo woman with unknown PMH who presents with R sided hemiparesis, seizures, and acute inferior wall STEMI. #CV A: acute inferior wall STEMI, troponin down trending, ECHO wnl (EF 64.6%) -Cardiology consulted -started on ASA 81mg -start Metoprolol 25mg PO daily #Pulm -O2 as needed to maintain SpaO2>90% #MSK -F/u pelvis CT to r/o hip fracture #Neuro -Neurology consulted -AEDs per neuro -EEG pending -Aspiration/fall precautions #Renal A: NICOLÁS/Rhabdomyolysis -Monitor I&Os -IVF #FEN -1/2 NS @ 75cc/hr -Replete KPhos 30mm -Dysphagia puree diet with thin liquids per SPL eval #PPX -DVT - b/l SCDs #Dispo: transfer to /[facility] d/w with Dr. Nneka Michelle MD PGY-1 Visit type - Emergency Visit Emergency Visit: No - New Patient This patient is new to me today: No - Critical Care Critical Care patient: Yes Total Critical Care Time (in minutes): 35 Critical Care Statement: The care of this patient involved high complexity decision making to prevent further life threatening deterioration of the patient 's condition and/or to evaluate & treat vital organ system(s) failure or risk of failure.
[2017-04-22] MEDS ORDERED: SODIUM CHLORIDE 0.45% 1,000 ML IV SCH ×2 (08:15)
--- NOTE | 2017-04-22 08:16 | EKG ---
Test Reason : Blood Pressure : / mmHG Vent. Rate : 080 BPM Atrial Rate : 080 BPM P-R Int : 124 ms QRS Dur : 064 ms QT Int : 430 ms P-R-T Axes : 068 015 029 degrees QTc Int : 495 ms POOR DATA QUALITY, INTERPRETATION MAY BE ADVERSELY AFFECTED NORMAL SINUS RHYTHM POSSIBLE LEFT ATRIAL ENLARGEMENT POSSIBLE INFERIOR INFARCT , AGE UNDETERMINED ABNORMAL ECG NO PREVIOUS ECGS AVAILABLE Confirmed by JOON GRIMM (1) on 04/22/2017 8:16:28 AM Referred By: Confirmed By:JOON GRIMM
[2017-04-22] MEDS: levETIRAcetam 500 MG/5 ML INJECTION VIAL IVPB SCH ×3 (09:16→21:55)
[2017-04-22] MEDS: ASPIRIN COATED 81 MG TABLET.EC PO SCH (09:16)
[2017-04-22] MEDS: METOPROLOL SUCCINATE 25 MG TAB.SR.24H (FP) PO SCH (09:16)
[2017-04-22] MEDS ORDERED: morphine CARPU-JECT 2 MG/1 ML DISP.SYRIN IVPUSH PRN (09:24)
[2017-04-22] MEDS ORDERED: POTASSIUM PHOSPHATE 30 MM in SODIUM CHLORIDE 250 ML IVPB ONE (09:30)
[2017-04-22] MEDS ORDERED: morphine CARPU-JECT 2 MG/1 ML DISP.SYRIN ONE (09:31)
[2017-04-22] MEDS ORDERED: ASPIRIN 300 MG SUPP.RECT PR SCH (10:00)
[2017-04-22] MEDS ORDERED: METOPROLOL SUCCINATE 25 MG TAB.SR.24H (FP) PO SCH ×2 (10:00)
--- NOTE | 2017-04-22 10:03 | PN ---
Progress Note (short form) - Note Progress Note: Neurology This is a female of unknown age and name with unknown medical history who presented BIBA after her called 911 because she had fallen on the floor and was not able to pick herself up after being on the floor for reportedly 24 hours. EMS states that the patient was laying on the carpeted floor on their arrival on scene at her home. The explained that he found her on the floor and she said she felt fine, so he did not call 911 until he saw her in the same place on the floor therafter. The patient was minimally responsive in the ED but able to state she was having left-sided weakness for the past three days which is what caused her to fall but thought it would pass and did not come to the hospital. She was out of TPA window. There was a question of generalized seizure and positive troponins. CT head completed and did not show acute changes. She was admitted and sent to ICU for close management. She is more awake, alert, conversive today. MRI completed and showed subacute infarcts L temporal/parietal, L thalamic and she does have right sided deficits. There was some facial twitching and patient put on Keppra, increased to 750mg twice a day. Spoke with hospitalist team, remains in ICU, plan to downgrade to tele. Cristaltent on ASA 81mg. CD without hemodynamically significant stenosis, Echo reviewed and LV function normal. Active Medications Aspirin (Ecotrin -) 81 mg PO DAILY [facility] Last Admin: 04/22/17 09:16 Dose: 81 mg Potassium Phosphate 30 mm/ (Sodium Chloride) 260 mls @ 62.5 mls/hr IVPB ONCE ONE Stop: 04/22/17 13:39 Last Admin: 04/22/17 09:17 Dose: 62.5 mls/hr Sodium Chloride (1/2 Normal Saline) 1,000 mls @ 75 mls/hr IV ASDIR [facility] Last Admin: 04/22/17 09:17 Dose: 75 mls/hr Levetiracetam (Keppra Injection -) 500 mg IVPB BID [facility] Last Admin: 04/22/17 09:16 Dose: 500 mg Metoprolol Succinate (Toprol Xl -) 25 mg PO DAILY [facility] Last Admin: 04/22/17 09:16 Dose: 25 mg Morphine Sulfate (Morphine Injection -) 1 mg IVPUSH ONCE PRN PRN Reason: PAIN Stop: 04/23/17 09:23 Last Admin: 04/22/17 09:32 Dose: 1 mg *Physical Exam - Physical Exam General Appearance: Yes: Disheveled, Other (smells of urine, red carpet threads scattered in hair, unkempt, initially having an apparent diffuse tonic-clonic seizure which lasts about 30 seconds and resolves without intervention, initially not wearing C-collar) HEENT: positive: Hearing Grossly Normal, Neck: positive: Trachea midline, Supple. negative: Tender, Rigid Respiratory/Chest: positive: Lungs Clear, Normal Breath Sounds. negative: Respiratory Distress, Crackles, Rhonchi, Stridor, Wheezing Cardiovascular: positive: Regular Rhythm, Regular Rate. negative: Murmur Gastrointestinal/Abdominal: positive: Normal Bowel Sounds, Soft. negative: Tender, Organomegaly, Pulsatile Mass, Guarding Musculoskeletal: positive: Normal Inspection. negative: Decreased Range of Motion, Vertebral Tenderness Extremity: positive: Normal Capillary Refill, Normal Inspection, Normal Range of Motion. negative: Tender, Cyanosis Integumentary: positive: Normal Color, Dry, Warm. negative: Erythema, Rash, Bruising Neurologic: Limited exam, not participating in full confrontation, move LUE slight more than right, ?3/5 on R, ? 2/5 on L, tactile stimulation intact but limited on R, gait deferred CBCD WBC 9.5 K/mm3 (4.0-10.0) D 04/22/17 05:00 RBC 3.82 M/mm3 (3.60-5.2) 04/22/17 05:00 Hgb 12.0 GM/dL (10.7-15.3) 04/22/17 05:00 Hct 35.1 % (32.4-45.2) 04/22/17 05:00 MCV 91.9 fl (80-96) 04/22/17 05:00 MCHC 34.1 g/dl (32.0-36.0) 04/22/17 05:00 RDW 17.7 % (11.6-15.6) H 04/22/17 05:00 Plt Count 118 K/MM3 (134-434) L 04/22/17 05:00 MPV 8.8 fl (7.5-11.1) 04/22/17 05:00 CMP Sodium 146 mmol/L (136-145) H 04/22/17 05:00 Potassium 3.2 mmol/L (3.5-5.1) L 04/22/17 05:00 Chloride 110 mmol/L (98-107) H 04/22/17 05:00 Carbon Dioxide 26 mmol/L (21-32) 04/22/17 05:00 Anion Gap 10 (8-16) 04/22/17 05:00 BUN 14 mg/dL (7-18) D 04/22/17 05:00 Creatinine 0.6 mg/dL (0.55-1.02) D 04/22/17 05:00 Creat Clearance w eGFR > 60 (>60) 04/22/17 05:00 Calcium 8.6 mg/dL (8.5-10.1) 04/22/17 05:00 Total Bilirubin 1.4 mg/dL (0.2-1.0) H 04/22/17 05:00 AST 81 U/L (15-37) H 04/22/17 05:00 ALT 41 U/L (12-78) 04/22/17 05:00 Alkaline Phosphatase 50 U/L (45-117) 04/22/17 05:00 Total Protein 5.8 g/dl (6.4-8.2) L 04/22/17 05:00 Albumin 2.6 g/dl (3.4-5.0) L 04/22/17 05:00 - RADIOLOGY MRI brain reviewed CT head as above CD, echo reviewed Medical Decision Making female of unknown age and name with unknown medical history who presented BIBA after her called 911 because she had fallen on the floor and was not able to pick herself up after being on the floor for reportedly 24 hours. EMS states that the patient was laying on the carpeted floor on their arrival on scene at her home. The explained that he found her on the floor and she said she felt fine, so he did not call 911 until he saw her in the same place on the floor therafter. The patient was minimally responsive in the ED but able to state she was having left-sided weakness for the past three days which is what caused her to fall but thought it would pass and did not come to the hospital. There was a question of generalized seizure and positive troponins. CT head completed and did not show acute changes. She was admitted and sent to ICU for close management. She is able to tell me her name is Joe Isidro and name of president but did not know exact location or date. Able to tell birthdate. Trying to complete MRI brain and would need to fill out questionaire. -Patient started on Keppra for seizures, increased to 750mg twice daily, no witnessed seizures during my visit -EEG -Continue ASA -CD, echo reviewed -BPcontrol, goal < 160/90 for now, < 140/90 as outpatient -PT/OT as tolerated -DVT ppx -IV hydration for rhabdo, monitor CPK - Tele monitoring Critical care 40 mins
--- NOTE | 2017-04-22 12:19 | PN ---
Teaching Attending Note Name of Resident: Nadira Michelle ATTENDING PHYSICIAN STATEMENT I saw and evaluated the patient. I reviewed the resident's note and discussed the case with the resident. I agree with the resident's findings and plan as documented. SUBJECTIVE: Patient seen and examined in the ICU. More awake and alert. Interactive and able to have a conversation. Strength is improving. Denies CP or SOB. No VILCHIS. Intake & Output 04/19/17 04/20/17 04/21/17 04/22/17 23:59 23:59 23:59 23:59 Intake Total 1808 1150 Output Total 1700 800 Balance 108 350 Weight 185 lb 154 lb 9 oz 154 lb 4.8 oz Last Vital Signs Temp Pulse Resp BP Pulse Ox 97.6 F 69 18 100/67 100 04/22/17 10:00 04/22/17 10:00 04/22/17 10:00 04/22/17 10:00 04/22/17 09:00 Active Medications Aspirin (Ecotrin -) 81 mg PO DAILY [facility] Last Admin: 04/22/17 09:16 Dose: 81 mg Potassium Phosphate 30 mm/ (Sodium Chloride) 260 mls @ 62.5 mls/hr IVPB ONCE ONE Stop: 04/22/17 13:39 Last Admin: 04/22/17 09:17 Dose: 62.5 mls/hr Sodium Chloride (1/2 Normal Saline) 1,000 mls @ 75 mls/hr IV ASDIR [facility] Last Admin: 04/22/17 09:17 Dose: 75 mls/hr Levetiracetam (Keppra Injection -) 500 mg IVPB BID [facility] Last Admin: 04/22/17 09:16 Dose: 500 mg Metoprolol Succinate (Toprol Xl -) 25 mg PO DAILY [facility] Last Admin: 04/22/17 09:16 Dose: 25 mg Morphine Sulfate (Morphine Injection -) 1 mg IVPUSH ONCE PRN PRN Reason: PAIN Stop: 04/23/17 09:23 Last Admin: 04/22/17 09:32 Dose: 1 mg Constitutional: Yes: Awake and alert, NAD Eyes: Yes: PERRL (Left conjunctival hemorrhage) HENT: Yes: Atraumatic, Normocephalic Neck: Yes: Supple, Trachea Midline Cardiovascular: Yes: Regular Rate and Rhythm, S1, S2 Respiratory: Yes: CTA Bilaterally Gastrointestinal: Yes: WNL, Soft, Hyperactive Bowel Sounds Renal/: Yes: Handy Present Extremities: Yes: WNL Neurological: Yes: Awake and alert, facial Droop, some increase muscle strength from yesterday Labs: Laboratory Results - last 24 hr 04/22/17 04/22/17 04/22/17 05:00 05:00 05:00 WBC 9.5 D RBC 3.82 Hgb 12.0 Hct 35.1 MCV 91.9 MCH 31.3 MCHC 34.1 RDW 17.7 H Plt Count 118 L MPV 8.8 Neutrophils % 78.5 Lymphocytes % 12.1 D Monocytes % 9.2 Eosinophils % 0.1 D Basophils % 0.1 Sodium 146 H Potassium 3.2 L Chloride 110 H Carbon Dioxide 26 Anion Gap 10 BUN 14 D Creatinine 0.6 D Creat Clearance w eGFR > 60 Random Glucose 87 Lactic Acid 1.0 Calcium 8.6 Phosphorus 2.4 L Magnesium 2.0 Total Bilirubin 1.4 H AST 81 H ALT 41 Alkaline Phosphatase 50 Total Protein 5.8 L Albumin 2.6 L Problem List - Problems (1) NICOLÁS (acute kidney injury) Code(s): N17.9 - ACUTE KIDNEY FAILURE, UNSPECIFIED (2) CVA (cerebral vascular accident) Code(s): I63.9 - CEREBRAL INFARCTION, UNSPECIFIED Qualifiers: CVA mechanism: unspecified Qualified Code(s): I63.9 - Cerebral infarction, unspecified (3) Lactic acidosis Code(s): E87.2 - ACIDOSIS (4) Seizure Code(s): R56.9 - UNSPECIFIED CONVULSIONS Assessment/Plan Follow Neuro exam Aspiration precautions O2 as needed BP monitoring AEDs per Neuro Beta iron Monitor off ABX PO as tolerated Stroke unit Dr Early Critical care time spent in reviewing chart, evaluating patient and formulating plan - 36 minutes.
--- NOTE | 2017-04-22 12:44 | PN ---
Teaching Attending Note Name of Resident: Don Lopez ATTENDING PHYSICIAN STATEMENT I saw and evaluated the patient. I reviewed the resident's note and discussed the case with the resident. I agree with the resident's findings and plan as documented. SUBJECTIVE:c/o R hip pain. states it is improved. continues to have R sided weakness. denies Cp, SOB, fever, chills, N/V/C/D, dixzness OBJECTIVE: Last Vital Signs Temp Pulse Resp BP Pulse Ox 97.6 F 69 18 100/67 100 04/22/17 10:00 04/22/17 10:00 04/22/17 10:00 04/22/17 10:00 04/22/17 09:00 General alert, delayed speech CV S1 s2 RRR no murmur/rub/gallop Lungs CTA B/L anteriorly Abdomen soft NT/ND Extremities point tenderness over the R hip, myotonic twitching RUE Neuro + facial droop. slurred speech, decreased sensation to RUE and RLE, strength 2/5 RUE. did not test strength in lower extremity due to presumed R hip fx only follows some simple commands. gait testing deferred ASSESSMENT AND PLAN: Female of unknown age with PMH ETOH use unknown other medical history presented to the ER after found on the floor by her 1. Acute toxic metabolic encephalopathy- Acute L temporal/parietal CVA with tonic/clonic seziures. continues to have myotonic twitching. increase keppra to 750mg BID. some improvement clinically from pt. started on asa and statin. speech therapy. PT once confirm no hip fracture. will need RAHUL. 2. Troponin leak-demand ischemia vs NSTEMI. Troponin peaked at 2.74. echo wnl. started on lopressor. will need cardiac workup as outpatient. 3. SIRS-concern for UTI however does not have +UA. off abx 4. Lactic acidosis- likely due to seizure like activity. resolved 5. NICOLÁS- likley dehydration. now resolved 6. Mechanical fall- likely due to CVA vs ETOH intoxication vs other etiology. on XR seems may be hip fracture. obtain CT to better evaluate. will get ortho if positive for fracture. PT assessment 7. Hypokalemia- Kcl 8 Hypophosphatemia- neutraphos 9. ETOH use- reported by pt. no signs of withdrawal. monitor. on thiamine/folate /mvi 10. Rhabdomyolsis- due to immobilization. improving with IVF. 11. Polycythemia- resolved 12. DVT ppx- lovenox 13. stable for transfer to stroke floor, 4s The care of this patient involved high complexity decision making to prevent further life threatening deterioration of the patient's condition and/or to evaluate & treat vital organ system(s) failure or risk of failure. 45 minutes
--- NOTE | 2017-04-22 14:21 | PN ---
Progress Note, Physician Chief Complaint: Stroke History of Present Illness: The patient is supine in no apparent distress. She denies chest pains and shortness of breath. - Current Medication List Current Medications: Active Medications Aspirin (Ecotrin -) 81 mg PO DAILY [facility] Last Admin: 04/22/17 09:16 Dose: 81 mg Sodium Chloride (1/2 Normal Saline) 1,000 mls @ 75 mls/hr IV ASDIR [facility] Last Admin: 04/22/17 09:17 Dose: 75 mls/hr Levetiracetam (Keppra Injection -) 750 mg IVPB BID [facility] Metoprolol Succinate (Toprol Xl -) 25 mg PO DAILY [facility] Last Admin: 04/22/17 09:16 Dose: 25 mg Morphine Sulfate (Morphine Injection -) 1 mg IVPUSH ONCE PRN PRN Reason: PAIN Stop: 04/23/17 09:23 Last Admin: 04/22/17 09:32 Dose: 1 mg Rosuvastatin Calcium (Crestor -) 40 mg PO [facility] - Objective Vital Signs: Vital Signs Temperature 97.6 F 04/22/17 10:00 Pulse Rate 70 04/22/17 12:00 Respiratory Rate 20 04/22/17 12:00 Blood Pressure 102/75 04/22/17 12:00 O2 Sat by Pulse Oximetry (%) 100 04/22/17 09:00 Constitutional: Yes: Well Nourished, No Distress, Calm Eyes: Yes: WNL HENT: Yes: WNL Neck: Yes: WNL, Supple, Trachea Midline Cardiovascular: Yes: WNL, Regular Rate and Rhythm Respiratory: Yes: WNL, Regular, CTA Bilaterally Gastrointestinal: Yes: WNL, Normal Bowel Sounds, Soft ...Rectal Exam: Yes: Deferred Musculoskeletal: Yes: WNL Extremities: Yes: WNL Edema: No Peripheral Pulses WNL: Yes Labs: CBC, BMP 04/22/17 05:00 04/22/17 05:00 INR, PTT INR 0.98 (0.82-1.09) 04/20/17 19:10 Assessment/Plan The patient has been stable from the cardiac standpoint. There is significant neurological improvement. She has been chest pain-free. Breathing comfortably. Continue Toprol-XL and Crestor as currently. Continue aspirin. Replete potassium. No need for further cardiac workup nor intervention in this setting. We'll follow with you.
--- NOTE | 2017-04-22 16:49 | PN ---
Physical Exam: SUBJECTIVE: Patient seen and examined at bedside. She is more awake today. Her speech is clearer, but her response is still delayed. Fasciculation noted over right upper extremity, face and neck. OBJECTIVE: Vital Signs Period Temp Pulse Resp BP Sys/Levine Pulse Ox Last 24 Hr 97.4 F-98.4 F 63-76 14-23 100-133/67-88 100-100 GENERAL: The patient is awake, and fully oriented, in no acute distress. Responses delayed. HEAD: Normal with no signs of trauma. EYES: extraocular movements intact, sclera anicteric, conjunctiva clear. No ptosis. NECK: Trachea midline, full range of motion, supple. LUNGS: Breath sounds equal, clear to auscultation bilaterally, no wheezes, no crackles, no accessory muscle use. HEART: Regular rate and rhythm, S1, S2 without murmur, rub or gallop. ABDOMEN: Soft, nontender, nondistended, normoactive bowel sounds, no guarding, no rebound. EXTREMITIES: 2+ pulses, warm, well-perfused, no edema. NEUROLOGICAL: Slurred speech. facial droop on the right. 5/5 strength in LLE, 0/ 5 strength in RLE. 4/5 strength in LUE. 3/5 strength in RUE. PSYCH: Normal mood, normal affect. SKIN: Warm, dry, normal turgor, no rashes or lesions noted Laboratory Results - last 24 hr 04/22/17 04/22/17 04/22/17 05:00 05:00 05:00 WBC 9.5 D RBC 3.82 Hgb 12.0 Hct 35.1 MCV 91.9 MCH 31.3 MCHC 34.1 RDW 17.7 H Plt Count 118 L MPV 8.8 Neutrophils % 78.5 Lymphocytes % 12.1 D Monocytes % 9.2 Eosinophils % 0.1 D Basophils % 0.1 Sodium 146 H Potassium 3.2 L Chloride 110 H Carbon Dioxide 26 Anion Gap 10 BUN 14 D Creatinine 0.6 D Creat Clearance w eGFR > 60 Random Glucose 87 Lactic Acid 1.0 Calcium 8.6 Phosphorus 2.4 L Magnesium 2.0 Total Bilirubin 1.4 H AST 81 H ALT 41 Alkaline Phosphatase 50 Total Protein 5.8 L Albumin 2.6 L Active Medications Generic Name Dose Route Start Last Admin Trade Name Freq PRN Reason Stop Dose Admin Aspirin 81 mg 04/22/17 10:00 04/22/17 09:16 Ecotrin - PO 81 mg DAILY CLEMENTE Administration Sodium Chloride 1,000 mls @ 75 mls/hr 04/22/17 08:15 04/22/17 09:17 1/2 Normal Saline IV 75 mls/hr ASDIR CLEMENTE Administration Levetiracetam 750 mg 04/22/17 22:00 Keppra Injection - IVPB BID CLEMENTE Metoprolol Succinate 25 mg 04/22/17 10:00 04/22/17 09:16 Toprol Xl - PO 25 mg DAILY CLEMENTE Administration Morphine Sulfate 1 mg 04/22/17 09:24 04/22/17 09:32 Morphine Injection - IVPUSH 04/23/17 09:23 1 mg ONCE PRN Administration PAIN Rosuvastatin Calcium 40 mg 04/22/17 22:00 Crestor - PO HS CLEMENTE ASSESSMENT/PLAN: Female presenting s/p fall for 24 hours admitted for AMS r/o CVA with generalized tonic clonic seizures, rhabdomyolysis, and elevated troponin. -efforts made to reach patient's next of kin and to obtain medical records without results; will continue attempts. 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 Vasquez #Elevated CK 2/2 acute PR vs seizure activity -IVF 1/2 NS @ 75 cc/hr -Trend CK in AM #Troponinemia 2/2 STEMI -Troponins trending down; 2.7 -> 2.5 -> 1.6 -RPT EKG consistent with STEMI as per cardio -ASA 81 -Toprolol XL 25mg -anticoagulation contraindicated in the setting of acute stroke -Echo WNL #Lactic Acidosis- resolved -ABX d/c; UA non consistent with infection -Lactic acid 1.1 now -UCX, BCX pending #NICOLÁS-resolved -cr. 1.2 on admission -cr. .9 now #FEN -IVF 1/2 NS @ 75 cc/hr -potassium 3.2, phos 2.4, mag wnl; 30 meq kphos given -Dysphagia puree #Propylaxsis -SCDs, heparin c/i at this time in the setting of CVA -GI- not indicated #Dispo -patient stable for transfer to tele/stroke floor. Problem List - Problems (1) CVA (cerebral vascular accident) Code(s): I63.9 - CEREBRAL INFARCTION, UNSPECIFIED Qualifiers: CVA mechanism: unspecified Qualified Code(s): I63.9 - Cerebral infarction, unspecified (2) Seizure Code(s): R56.9 - UNSPECIFIED CONVULSIONS Visit type - Emergency Visit Emergency Visit: Yes ED Registration Date: 04/21/17 Care time: The patient presented to the Emergency Department on the above date and was hospitalized for further evaluation of their emergent condition. - New Patient This patient is new to me today: No - Critical Care Critical Care patient: Yes Total Critical Care Time (in minutes): 35 Critical Care Statement: The care of this patient involved high complexity decision making to prevent further life threatening deterioration of the patient 's condition and/or to evaluate & treat vital organ system(s) failure or risk of failure.
[2017-04-22 17:33] LABS: ALBUMIN 2.7 g/dl (3.4-5.0); ALK PHOS 52 U/L (45-117); ANION GAP 9 (8-16); BILIRUBIN,TOTAL 1.1 mg/dL (0.2-1.0); CALCIUM 8.3 mg/dL (8.5-10.1); CO2 27 mmol/L (21-32); CREATININE 0.6 mg/dL (0.55-1.02); GLUCOSE,RANDOM 89 mg/dL (74-106); MAGNESIUM 1.8 mg/dL (1.8-2.4); SGOT/AST 71 U/L (15-37); SGPT/ALT 41 U/L (12-78); TOT PROT 5.9 g/dl (6.4-8.2)
[2017-04-22] MEDS: ROSUVASTATIN CA 20 MG TABLET (FP) PO SCH ×2 (21:49→21:55)
[2017-04-23 08:06] LABS: MCH 30.5 pg (25.7-33.7); MCHC 33.5 g/dl (32.0-36.0); MEAN CELL VOLUME 91.1 fl (80-96); MEAN PLT VOLUME 8.9 fl (7.5-11.1); PLATELET COUNT 104 K/MM3 (134-434); RDW 17.2 % (11.6-15.6); WHITE BLOOD COUNT 8.6 K/mm3 (4.0-10.0)
[2017-04-23 08:52] LABS: ALBUMIN 2.5 g/dl (3.4-5.0); ALK PHOS 50 U/L (45-117); ANION GAP 8 (8-16); BILIRUBIN,TOTAL 0.9 mg/dL (0.2-1.0); CO2 26 mmol/L (21-32); CREATININE 0.5 mg/dL (0.55-1.02); GLUCOSE,RANDOM 88 mg/dL (74-106); MAGNESIUM 1.4 mg/dL (1.8-2.4); PHOSPHOROUS 3.1 mg/dL (2.5-4.9); SGOT/AST 57 U/L (15-37); SGPT/ALT 37 U/L (12-78); TOT PROT 5.7 g/dl (6.4-8.2)
[2017-04-23] MEDS: levETIRAcetam 500 MG/5 ML INJECTION VIAL IVPB SCH ×2 (09:23→21:42)
[2017-04-23] MEDS: METOPROLOL SUCCINATE 25 MG TAB.SR.24H (FP) PO SCH (09:23)
[2017-04-23] MEDS: ASPIRIN COATED 81 MG TABLET.EC PO SCH (09:23)
--- NOTE | 2017-04-23 12:17 | PN ---
Progress Note, Physician Chief Complaint: no complaints tele negative History of Present Illness: The patient is a 74-year-old female who was found on the floor by her confused and lethargic with a dense right hemiparesis. The patient was brought to the emergency room by ambulance. She had seizure activity in the ER. She was placed on Keppra. She is sleepy, barely arousable, not following commands. Found with acute CVA. No Tpa given due to fall. There ECG is consistent with an acute inferior wall infarction. Cardiac markers are elevated. Echo 04/21/17 normal EF, normal valves. - Current Medication List Current Medications: Active Medications Aspirin (Ecotrin -) 81 mg PO DAILY [facility] Last Admin: 04/23/17 09:23 Dose: 81 mg Sodium Chloride (1/2 Normal Saline) 1,000 mls @ 75 mls/hr IV ASDIR [facility] Last Admin: 04/22/17 09:17 Dose: 75 mls/hr Levetiracetam (Keppra Injection -) 750 mg IVPB BID [facility] Last Admin: 04/23/17 09:23 Dose: 750 mg Metoprolol Succinate (Toprol Xl -) 25 mg PO DAILY [facility] Last Admin: 04/23/17 09:23 Dose: 25 mg Rosuvastatin Calcium (Crestor -) 40 mg PO HS [facility] Last Admin: 04/22/17 21:55 Dose: 40 mg - Objective Vital Signs: Vital Signs Temperature 98 F 04/23/17 09:00 Pulse Rate 82 04/23/17 09:00 Respiratory Rate 20 04/23/17 09:00 Blood Pressure 115/68 04/23/17 09:00 O2 Sat by Pulse Oximetry (%) 96 04/22/17 20:39 Constitutional: Yes: No Distress, Calm Eyes: Yes: Conjunctiva Clear, EOM Intact HENT: Yes: Atraumatic, Normocephalic Neck: Yes: Supple, Trachea Midline Cardiovascular: Yes: Regular Rate and Rhythm Respiratory: Yes: Regular, CTA Bilaterally Gastrointestinal: Yes: Normal Bowel Sounds, Soft Edema: No Peripheral Pulses WNL: Yes Labs: CBC, BMP 04/23/17 06:00 04/23/17 06:00 INR, PTT INR 0.98 (0.82-1.09) 04/20/17 19:10 Problem List - Problems (1) STEMI (ST elevation myocardial infarction) Assessment/Plan: she is not a candidate for ischemia workup at this time. EF is normal, would continue with medical treatment at this point. continue aspirin, beta iron and statin. No need for ACEI due to normal EF. neuro dickson ongoing. Code(s): I21.3 - ST ELEVATION (STEMI) MYOCARDIAL INFARCTION OF UNSP SITE Qualifiers: Involved coronary artery: LAD coronary artery Qualified Code(s): I21.02 - ST elevation (STEMI) myocardial infarction involving left anterior descending coronary artery
--- NOTE | 2017-04-23 14:22 | PN ---
Progress Note (short form) - Note Progress Note: states she feels much better. continues to feel weak on R side but states improved. hip pain has resolved. denies CP, SOB, fever, chills, N/V/C/D Current Medications Generic Name Dose Route Start Last Admin Trade Name Teofilo PRN Reason Stop Dose Admin Aspirin 81 mg 04/22/17 10:00 04/23/17 09:23 Ecotrin - PO 81 mg DAILY CLEMENTE Administration Sodium Chloride 1,000 mls @ 75 mls/hr 04/22/17 08:15 04/22/17 09:17 1/2 Normal Saline IV 75 mls/hr ASDIR CLEMENTE Administration Levetiracetam 750 mg 04/22/17 22:00 04/23/17 09:23 Keppra Injection - IVPB 750 mg BID CLEMENTE Administration Metoprolol Succinate 25 mg 04/22/17 10:00 04/23/17 09:23 Toprol Xl - PO 25 mg DAILY CLEMENTE Administration Rosuvastatin Calcium 40 mg 04/22/17 22:00 04/22/17 21:55 Crestor - PO 40 mg HS CLEMENTE Administration Last Vital Signs Temp Pulse Resp BP Pulse Ox 98 F 82 20 115/68 97 04/23/17 09:00 04/23/17 09:00 04/23/17 09:00 04/23/17 09:00 04/23/17 09:00 General alert, delayed speech CV S1 s2 RRR no murmur/rub/gallop Lungs CTA B/L anteriorly Abdomen soft NT/ND Extremities no pedal edema. no pain in R hip Neuro + facial droop. speech no longer slurred but delayed response. more alert since yesterday. +pronator drift on R. Strength 3/5 RUE 5/5 LUE 1/5 RLE 3/5 LLE. sensation grossly intact. gait testing deferred CBCD WBC 8.6 K/mm3 (4.0-10.0) 04/23/17 06:00 RBC 3.95 M/mm3 (3.60-5.2) 04/23/17 06:00 Hgb 12.0 GM/dL (10.7-15.3) 04/23/17 06:00 Hct 36.0 % (32.4-45.2) 04/23/17 06:00 MCV 91.1 fl (80-96) 04/23/17 06:00 MCHC 33.5 g/dl (32.0-36.0) 04/23/17 06:00 RDW 17.2 % (11.6-15.6) H 04/23/17 06:00 Plt Count 104 K/MM3 (134-434) L 04/23/17 06:00 MPV 8.9 fl (7.5-11.1) 04/23/17 06:00 CMP Sodium 140 mmol/L (136-145) 04/23/17 06:00 Potassium 3.2 mmol/L (3.5-5.1) L 04/23/17 06:00 Chloride 106 mmol/L (98-107) 04/23/17 06:00 Carbon Dioxide 26 mmol/L (21-32) 04/23/17 06:00 Anion Gap 8 (8-16) 04/23/17 06:00 BUN 9 mg/dL (7-18) 04/23/17 06:00 Creatinine 0.5 mg/dL (0.55-1.02) L 04/23/17 06:00 Creat Clearance w eGFR > 60 (>60) 04/23/17 06:00 Calcium 8.0 mg/dL (8.5-10.1) L 04/23/17 06:00 Total Bilirubin 0.9 mg/dL (0.2-1.0) 04/23/17 06:00 AST 57 U/L (15-37) H 04/23/17 06:00 ALT 37 U/L (12-78) 04/23/17 06:00 Alkaline Phosphatase 50 U/L (45-117) 04/23/17 06:00 Total Protein 5.7 g/dl (6.4-8.2) L 04/23/17 06:00 Albumin 2.5 g/dl (3.4-5.0) L 04/23/17 06:00 ASSESSMENT AND PLAN: Female of unknown age with PMH ETOH use unknown other medical history presented to the ER after found on the floor by her 1. Acute toxic metabolic encephalopathy- Acute L temporal/parietal CVA with tonic/clonic seziures. myotonic twitching resolved. continues to have R hemiparesis with improvement in RUE. pt refusing to go to [facility]. however has not gotten out of bed and can not barely move the foot off the bed. cont asa, statin , keppra. speech therapy with liquid diet. 2. Troponin leak-demand ischemia vs NSTEMI. Troponin peaked at 2.74. echo wnl. on lopressor. will need cardiac workup as outpatient. 3. SIRS-concern for UTI however does not have +UA. off abx 4. Lactic acidosis- likely due to seizure like activity. resolved 5. NICOLÁS- likley dehydration. now resolved 6. Mechanical fall- likely due to CVA vs ETOH intoxication vs other etiology. CT done and r/o fracture. possible Pagets of the R iliac. pt no longer has hip pain, alk phos WNL. would defer treatment for Pagets. would have pt f/u with PMD as outpatient and consider bone scan to further evaulate. asymptomatic at this time if pt does indeed have. 7. Hypokalemia- Kcl 40meq 8 Hypophosphatemia- resolved 9. ETOH use- reported by pt. no signs of withdrawal. monitor. on thiamine/folate /mvi 10. Rhabdomyolsis- due to immobilization. resolved 11. Polycythemia- resolved 12. DVT ppx- lovenox 13. pt wants to go home. stressed need for RAH[facility] as pt is barely able to move leg. refusing [facility]. Although the only thing medically keeping pt hospitalized at this point is need for RAHUL I do not feel comfortable discharging this pt, she does not appear stable enough to care for herself. And her spouse does not appear to take care of her as he left her on the floor for 2 days and was not able to report her name or to EMS when he called for them to arrive. pt displays competency and able to verbalize risks assoc with leaving AMA. called number in chart and person who answered stated wrong number. pt does not know alternative number to reach spouse or son (both named Osmel). conversed with CM who will send referral to [facility] and PT to set up services if pt does indeed leave. counseled pt on risks and benefits of staying Visit type - Emergency Visit Emergency Visit: Yes ED Registration Date: 04/21/17 Care time: The patient presented to the Emergency Department on the above date and was hospitalized for further evaluation of their emergent condition. - New Patient This patient is new to me today: No - Critical Care Critical Care patient: No - Discharge Referral Referred to [facility] No
[2017-04-23] MEDS ORDERED: POTASSIUM CHLORIDE ORAL LIQUID 20 MEQ/15 ML PO ONE (14:45)
[2017-04-23] MEDS ORDERED: MAGNESIUM OXIDE 400 MG TABLET (FP) PO ONE (14:45)
--- NOTE | 2017-04-23 15:38 | PN ---
Progress Note, Physician History of Present Illness: covering for Dr Goins HX of ETOH ( ? last 3 weeks ago), found unresponsive, right hemiparesis (she states for one week) , no TPA given unknown time of onset, +STEMI also found to have subacute-chronic L temporal/parietal CVA, left thalamic, CVA with ? tonic/clonic seziures. on keppra 750BID for facial twitching no HX of seziures as per her , no new seizures noted as per nurse STUDIES : carotid dopplers --no hemodyanamic stenosis CT pelvis: no right hip fracture, DJD L5-S1 ECHO-NL EF - Current Medication List Current Medications: Active Medications Aspirin (Ecotrin -) 81 mg PO DAILY [facility] Last Admin: 04/23/17 09:23 Dose: 81 mg Levetiracetam (Keppra Injection -) 750 mg IVPB BID [facility] Last Admin: 04/23/17 09:23 Dose: 750 mg Metoprolol Succinate (Toprol Xl -) 25 mg PO DAILY [facility] Last Admin: 04/23/17 09:23 Dose: 25 mg Rosuvastatin Calcium (Crestor -) 40 mg PO HS [facility] Last Admin: 04/22/17 21:55 Dose: 40 mg - Objective Vital Signs: Vital Signs Temperature 97.7 F 04/23/17 15:11 Pulse Rate 81 04/23/17 15:11 Respiratory Rate 16 04/23/17 15:11 Blood Pressure 110/73 04/23/17 15:11 O2 Sat by Pulse Oximetry (%) 97 04/23/17 09:00 Neurological: Yes: Alert (awake , orinted right hemiparesis face/arm, leg 3/5) Labs: CBC, BMP 04/23/17 06:00 04/23/17 06:00 INR, PTT INR 0.98 (0.82-1.09) 04/20/17 19:10 Assessment/Plan HX of ETOH ( ? last 3 weeks ago), found unresponsive, right hemiparesis (she states for one week) , no TPA given unknown time of onset, +STEMI also found to have subacute-chronic L temporal/parietal CVA, left thalamic, CVA with ? tonic/clonic seziures. 1) ? etiology of stroke, --? [place]/ transient arrhythmia cont ASA , statin for now , consider [facility] holter as outpt check MRA HEad and neck r/o artery to artery embolism 2) kristal 750BID for facial twitching--seem to be stable 3) will likely need rehab Dr Montes De Oca [phone]
[2017-04-23] MEDS: ROSUVASTATIN CA 20 MG TABLET (FP) PO SCH (21:42)
[2017-04-24] MEDS ORDERED: LORazepam 2 MG/ML SDV VIAL IVPUSH ONE (07:25)
[2017-04-24 07:51] LABS: CALCIUM 8.8 mg/dL (8.5-10.1); CREATININE 0.5 mg/dL (0.55-1.02); GLUCOSE,RANDOM 96 mg/dL (74-106); MAGNESIUM 1.5 mg/dL (1.8-2.4)
[2017-04-24 07:55] LABS: ANION GAP 8 (8-16); CO2 26 mmol/L (21-32)
[2017-04-24] MEDS ORDERED: MAGNESIUM SULF 50% (8.12 MEQ/2 ML-1 GM VIAL) ONE (08:31)
[2017-04-24] MEDS ORDERED: MAGNESIUM OXIDE 400 MG TABLET (FP) PO ONE (08:45)
[2017-04-24] MEDS ORDERED: MAGNESIUM SULF 50% (8.12 MEQ/2 ML-1 GM VIAL) IVPB ONE (09:00)
[2017-04-24] MEDS: levETIRAcetam 500 MG/5 ML INJECTION VIAL IVPB SCH ×2 (09:04→22:05)
[2017-04-24] MEDS: METOPROLOL SUCCINATE 25 MG TAB.SR.24H (FP) PO SCH (09:14)
[2017-04-24] MEDS: ASPIRIN COATED 81 MG TABLET.EC PO SCH (09:15)
--- NOTE | 2017-04-24 09:17 | PN ---
Teaching Attending Note Name of Resident: Don Lopez ATTENDING PHYSICIAN STATEMENT I saw and evaluated the patient. I reviewed the resident's note and discussed the case with the resident. I agree with the resident's findings and plan as documented. SUBJECTIVE: Denies any new complaints. Continues having myoclonic twitching of RLE and RUE. Seizure activity reported by RN however it was RLE myoclonic spasms. OBJECTIVE: Vital Signs Temperature 98.8 F 04/24/17 06:00 Pulse Rate 74 04/24/17 06:00 Respiratory Rate 18 04/24/17 06:00 Blood Pressure 106/70 04/24/17 06:00 O2 Sat by Pulse Oximetry (%) 97 04/23/17 09:00 HEENT PERRL, OP dry , CVS S1 S2 WNL no MRG RS CTA b/l ABD soft NT BS positive 4 q EXT No pedal edema NEURO mild dysarthria , facial droop, Strength 3/5 RUE 5/5 LUE 1/5 RLE 3/5 LLE , paresthesis RUE RLE, myoclonic jerks RLE CBC, BMP 04/23/17 06:00 04/24/17 06:00 CMP Sodium 137 mmol/L (136-145) 04/24/17 06:00 Potassium 3.6 mmol/L (3.5-5.1) 04/24/17 06:00 Chloride 103 mmol/L (98-107) 04/24/17 06:00 Carbon Dioxide 26 mmol/L (21-32) 04/24/17 06:00 Anion Gap 8 (8-16) 04/24/17 06:00 BUN 7 mg/dL (7-18) D 04/24/17 06:00 Creatinine 0.5 mg/dL (0.55-1.02) L 04/24/17 06:00 Creat Clearance w eGFR > 60 (>60) 04/23/17 06:00 POC Glucometer 94 UNITS (()) 04/24/17 07:34 Random Glucose 96 mg/dL (74-106) 04/24/17 06:00 Lactic Acid 1.0 mmol/L (0.4-2.0) 04/22/17 05:00 Calcium 8.8 mg/dL (8.5-10.1) 04/24/17 06:00 Phosphorus 3.1 mg/dL (2.5-4.9) 04/23/17 06:00 Magnesium 1.5 mg/dL (1.8-2.4) L 04/24/17 06:00 Total Bilirubin 0.9 mg/dL (0.2-1.0) 04/23/17 06:00 AST 57 U/L (15-37) H 04/23/17 06:00 ALT 37 U/L (12-78) 04/23/17 06:00 Alkaline Phosphatase 50 U/L (45-117) 04/23/17 06:00 Creatine Kinase 2095 IU/L (26-192) H 04/21/17 08:25 Creatine Kinase Index 0.3 % (0.0-5.0) 04/21/17 08:25 CK-MB (CK-2) 1.643 ng/mL (0.5-3.6) 04/23/17 06:00 Troponin I 0.54 ng/ml (0.00-0.05) H 04/22/17 16:20 Total Protein 5.7 g/dl (6.4-8.2) L 04/23/17 06:00 Albumin 2.5 g/dl (3.4-5.0) L 04/23/17 06:00 ASSESSMENT AND PLAN: 1. Left MCA ischemic CVA - now subacute. Residual R hemiparesis with poor functional status and dysphagia. MRA imaging as above. - c/w statins - c/w aspirin - neurology follow up, appreciate input regarding further imaging studies of M2 MCA segment occlusion and need for intervention - needs PT/OT and rehab placement 2. Rhabdomyolisis - resolved 3. Elevated Troponin Level - in the setting of demand ischemia, rhabdomyolisis and acute CVA - now resolved. 4. Electrolyte Imbalance - will supplement K, Mag and repeat levels 5. 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 DVT ppx- lovenox Barriers for discharge : Concern for safety Unable to care for herself No family could be located
--- NOTE | 2017-04-24 10:43 | PN ---
Physical Exam: SUBJECTIVE: Patient seen and examined at bedside. Patient looks and feels better today. Speech is less slurred. Patient more alert today. She expresses concern that her has not come to see her or reached out to her. Informed her of continued efforts to reach him. OBJECTIVE: Vital Signs Period Temp Pulse Resp BP Sys/Levine Pulse Ox Last 24 Hr 97.7 F-99.2 F 67-81 16-20 106-124/67-73 GENERAL: The patient is awake, and fully oriented, in no acute distress. Responses more timely today. HEAD: Normal with no signs of trauma. EYES: extraocular movements intact, sclera anicteric, conjunctiva clear. No ptosis. NECK: Trachea midline, full range of motion, supple. LUNGS: Breath sounds equal, clear to auscultation bilaterally, no wheezes, no crackles, no accessory muscle use. HEART: Regular rate and rhythm, S1, S2 without murmur, rub or gallop. ABDOMEN: Soft, nontender, nondistended, normoactive bowel sounds, no guarding, no rebound. EXTREMITIES: 2+ pulses, warm, well-perfused, no edema. NEUROLOGICAL: Slurred speech (improved). facial droop on the right. 5/5 strength in LLE, 0/5 strength in RLE. 4/5 strength in LUE. 3/5 strength in RUE. Rhythmic, Tonic movements of right upper and lower extremity PSYCH: Normal mood, normal affect. SKIN: Warm, dry, normal turgor, no rashes or lesions noted Laboratory Results - last 24 hr 04/24/17 04/24/17 06:00 07:34 Sodium 137 Potassium 3.6 Chloride 103 Carbon Dioxide 26 Anion Gap 8 BUN 7 D Creatinine 0.5 L POC Glucometer 94 Random Glucose 96 Calcium 8.8 Magnesium 1.5 L Active Medications Generic Name Dose Route Start Last Admin Trade Name Freq PRN Reason Stop Dose Admin Aspirin 81 mg 04/22/17 10:00 04/24/17 09:15 Ecotrin - PO 81 mg DAILY CLEMENTE Administration Levetiracetam 1,000 mg 04/24/17 10:00 04/24/17 09:04 Keppra Injection - IVPB 1,000 mg BID CLEMENTE Administration Metoprolol Succinate 25 mg 04/22/17 10:00 04/24/17 09:14 Toprol Xl - PO 25 mg DAILY CLEMENTE Administration Rosuvastatin Calcium 40 mg 04/22/17 22:00 04/23/17 21:42 Crestor - PO 40 mg HS CLEMENTE Administration ASSESSMENT/PLAN: Female presenting s/p fall for 24 hours admitted for AMS r/o CVA with generalized tonic clonic seizures, rhabdomyolysis, and elevated troponin. 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, parietal and thalamic CVA -Echo WNL -Speech/Swallow consult: patient cleared for dysphagia puree -Carotid dopplers WNL -Keppra 750 IV BID -MRI shows infarcts in left temporal and parietal lobes as well as in left thalmus -patient continues to have tonic movements of right limbs -Will follow neurology reccs -RPT MRA shows possible occlusion or superior M2 branch of Left MCA #Elevated CK 2/2 acute HI vs seizure activity -ck trending down -Trend CK in AM #Troponinemia 2/2 STEMI -Troponins trending down; 2.7 -> 2.5 -> 1.6 -RPT EKG consistent with STEMI as per cardio -ASA 81 -Toprolol XL 25mg -anticoagulation contraindicated in the setting of acute stroke -Echo WNL -will follow cardio reccs #Lactic Acidosis- resolved -ABX d/c; UA non consistent with infection -Lactic acid 1.1 now -UCX, BCX pending #NICOLÁS-resolved -cr. 1.2 on admission -cr. .9 now #FEN -no fluids indicated -potassium 3.6, mag 1.5; will replete -Dysphagia puree #Propylaxsis -SCDs, heparin c/i at this time in the setting of CVA -GI- not indicated -OOB to chair today #Dispo -patient admitted for workup and treatment of acute stroke. Problem List - Problems (1) CVA (cerebral vascular accident) Code(s): I63.9 - CEREBRAL INFARCTION, UNSPECIFIED Qualifiers: CVA mechanism: unspecified Qualified Code(s): I63.9 - Cerebral infarction, unspecified (2) Seizure Code(s): R56.9 - UNSPECIFIED CONVULSIONS Visit type - Emergency Visit Emergency Visit: Yes ED Registration Date: 04/21/17 Care time: The patient presented to the Emergency Department on the above date and was hospitalized for further evaluation of their emergent condition. - New Patient This patient is new to me today: No - Critical Care Critical Care patient: No
--- NOTE | 2017-04-24 12:18 | PN ---
Progress Note, Physician Chief Complaint: no cp or sob tele nsr. History of Present Illness: The patient is a 74-year-old female who was found on the floor by her confused and lethargic with a dense right hemiparesis. The patient was brought to the emergency room by ambulance. She had seizure activity in the ER. She was placed on Keppra. She is sleepy, barely arousable, not following commands. Found with acute CVA. No Tpa given due to fall. There ECG is consistent with an acute inferior wall infarction. Cardiac markers are elevated. Echo 04/21/17 normal EF, normal valves. - Current Medication List Current Medications: Active Medications Aspirin (Ecotrin -) 81 mg PO DAILY [facility] Last Admin: 04/24/17 09:15 Dose: 81 mg Levetiracetam (Keppra Injection -) 1,000 mg IVPB BID [facility] Last Admin: 04/24/17 09:04 Dose: 1,000 mg Metoprolol Succinate (Toprol Xl -) 25 mg PO DAILY [facility] Last Admin: 04/24/17 09:14 Dose: 25 mg Rosuvastatin Calcium (Crestor -) 40 mg PO HS [facility] Last Admin: 04/23/17 21:42 Dose: 40 mg - Objective Vital Signs: Vital Signs Temperature 98 F 04/24/17 09:23 Pulse Rate 80 04/24/17 09:23 Respiratory Rate 18 04/24/17 09:23 Blood Pressure 124/70 04/24/17 09:23 O2 Sat by Pulse Oximetry (%) 97 04/23/17 09:00 Constitutional: Yes: No Distress Eyes: Yes: Conjunctiva Clear HENT: Yes: Atraumatic, Normocephalic Neck: Yes: Supple, Trachea Midline Cardiovascular: Yes: Regular Rate and Rhythm Respiratory: Yes: CTA Bilaterally Gastrointestinal: Yes: Normal Bowel Sounds, Soft Extremities: Yes: WNL Edema: No Peripheral Pulses WNL: Yes Labs: CBC, BMP 04/23/17 06:00 04/24/17 06:00 INR, PTT INR 0.98 (0.82-1.09) 04/20/17 19:10 Problem List - Problems (1) STEMI (ST elevation myocardial infarction) Assessment/Plan: she is not a candidate for ischemia workup at this time. EF is normal, would continue with medical treatment at this point. continue aspirin, beta iron and statin. No need for ACEI due to normal EF. neuro dickson ongoing. Code(s): I21.3 - ST ELEVATION (STEMI) MYOCARDIAL INFARCTION OF UNSP SITE Qualifiers: Involved coronary artery: LAD coronary artery Qualified Code(s): I21.02 - ST elevation (STEMI) myocardial infarction involving left anterior descending coronary artery
[2017-04-24] MEDS ORDERED: levETIRAcetam 500 MG/5 ML INJECTION VIAL IVPB ONE ×2 (15:07→15:30)
--- NOTE | 2017-04-24 17:04 | PN ---
Progress Note (short form) - Note Progress Note: covering for Dr Goins HX of ETOH ( ? last 3 weeks ago), found unresponsive, right hemiparesis (she states for one week) , no TPA given unknown time of onset, +STEMI also found to have subacute-chronic L temporal/parietal CVA, left thalamic, CVA with ? tonic/clonic seziures. on keppra 750BID for facial twitching FU : arm and leg rythmic shaking throughout day --suggestive of focal motor seziures was given extra dose Keppra and maintenance inc to 1000BID STUDIES : carotid dopplers --no hemodyanamic stenosis CT pelvis: no right hip fracture, DJD L5-S1 ECHO-NL EF - Current Medication List Current Medications: Active Medications Aspirin (Ecotrin -) 81 mg PO DAILY [facility] Last Admin: 04/23/17 09:23 Dose: 81 mg Levetiracetam (Keppra Injection -) 750 mg IVPB BID [facility] Last Admin: 04/23/17 09:23 Dose: 750 mg Metoprolol Succinate (Toprol Xl -) 25 mg PO DAILY [facility] Last Admin: 04/23/17 09:23 Dose: 25 mg Rosuvastatin Calcium (Crestor -) 40 mg PO HS [facility] Last Admin: 04/22/17 21:55 Dose: 40 mg - Objective Vital Signs: Vital Signs Temperature 99.4 F 04/24/17 15:00 Pulse Rate 84 04/24/17 15:00 Respiratory Rate 18 04/24/17 15:00 Blood Pressure 117/70 04/24/17 15:00 O2 Sat by Pulse Oximetry (%) 98 04/24/17 09:00 Neurological: Yes: Alert (awake , orinted right hemiparesis face/arm, leg 3/5) Labs: CBCD WBC 8.6 K/mm3 (4.0-10.0) 04/23/17 06:00 RBC 3.95 M/mm3 (3.60-5.2) 04/23/17 06:00 Hgb 12.0 GM/dL (10.7-15.3) 04/23/17 06:00 Hct 36.0 % (32.4-45.2) 04/23/17 06:00 MCV 91.1 fl (80-96) 04/23/17 06:00 MCHC 33.5 g/dl (32.0-36.0) 04/23/17 06:00 RDW 17.2 % (11.6-15.6) H 04/23/17 06:00 Plt Count 104 K/MM3 (134-434) L 04/23/17 06:00 MPV 8.9 fl (7.5-11.1) 04/23/17 06:00 CMP Sodium 137 mmol/L (136-145) 04/24/17 06:00 Potassium 3.6 mmol/L (3.5-5.1) 04/24/17 06:00 Chloride 103 mmol/L (98-107) 04/24/17 06:00 Carbon Dioxide 26 mmol/L (21-32) 04/24/17 06:00 Anion Gap 8 (8-16) 04/24/17 06:00 BUN 7 mg/dL (7-18) D 04/24/17 06:00 Creatinine 0.5 mg/dL (0.55-1.02) L 04/24/17 06:00 Creat Clearance w eGFR > 60 (>60) 04/23/17 06:00 Calcium 8.8 mg/dL (8.5-10.1) 04/24/17 06:00 Total Bilirubin 0.9 mg/dL (0.2-1.0) 04/23/17 06:00 AST 57 U/L (15-37) H 04/23/17 06:00 ALT 37 U/L (12-78) 04/23/17 06:00 Alkaline Phosphatase 50 U/L (45-117) 04/23/17 06:00 Total Protein 5.7 g/dl (6.4-8.2) L 04/23/17 06:00 Albumin 2.5 g/dl (3.4-5.0) L 04/23/17 06:00 Assessment/Plan HX of ETOH ( ? last 3 weeks ago), found unresponsive, right hemiparesis (she states for one week) , no TPA given unknown time of onset, +STEMI also found to have subacute-chronic L temporal/parietal CVA, left thalamic, CVA with focal motor seizures 1) ? etiology of stroke, --? OK/ transient arrhythmia cont ASA , statin for now , consider terminal clerk holter as outpt check MRA HEad and neck r/o artery to artery embolism 2) focal motor seizures, recurrent; cont keppra 1000BID and start VIMPAT 100BID --nurse aware 3) will likely need rehab Dr Montes De Oca [phone]
[2017-04-24] MEDS: Lacosamide 200 MG/20 ML VIAL IVPB SCH ×2 (17:24→21:55)
[2017-04-24] MEDS ORDERED: Lacosamide 200 MG/20 ML VIAL IVPB ONE (18:45)
[2017-04-24] MEDS ORDERED: VALPROATE SODIUM 500 MG/5 ML VIAL IVPB ONE (20:30)
[2017-04-24] MEDS ORDERED: Lacosamide 200 MG/20 ML VIAL IVPB SCH (22:00)
[2017-04-24] MEDS: ROSUVASTATIN CA 20 MG TABLET (FP) PO SCH (22:02)
[2017-04-25] MEDS ORDERED: ACETAMINOPHEN 325 MG TABLET (FP) PO ONE (00:05)
[2017-04-25 09:13] LABS: ALBUMIN 2.8 g/dl (3.4-5.0); ANION GAP 10 (8-16); CO2 26 mmol/L (21-32); CREATININE 0.5 mg/dL (0.55-1.02); GLUCOSE,RANDOM 110 mg/dL (74-106); MAGNESIUM 1.9 mg/dL (1.8-2.4); PHOSPHOROUS 3.9 mg/dL (2.5-4.9)
[2017-04-25] MEDS ORDERED: PT OWN MED DRAWER 7, Y5N ONE ×2 (09:14→21:01)
[2017-04-25 09:15] LABS: BASOPHIL 0.4 % (0-2.0); EOSINOPHIL 1.4 % (0-4.5); MCH 30.1 pg (25.7-33.7); MCHC 33.6 g/dl (32.0-36.0); MEAN CELL VOLUME 89.6 fl (80-96); MEAN PLT VOLUME 8.9 fl (7.5-11.1); NEUTROPHILS 70.9 % (42.8-82.8); PLATELET COUNT 156 K/MM3 (134-434); RDW 16.7 % (11.6-15.6); WHITE BLOOD COUNT 7.3 K/mm3 (4.0-10.0)
[2017-04-25] MEDS: ASPIRIN COATED 81 MG TABLET.EC PO SCH (09:19)
[2017-04-25] MEDS: METOPROLOL SUCCINATE 25 MG TAB.SR.24H (FP) PO SCH (09:19)
[2017-04-25] MEDS: levETIRAcetam 500 MG/5 ML INJECTION VIAL IVPB SCH ×2 (09:20→22:37)
[2017-04-25] MEDS: Lacosamide 200 MG/20 ML VIAL IVPB SCH ×2 (09:32→22:53)
[2017-04-25] MEDS: VALPROATE SODIUM 500 MG/5 ML VIAL IVPB SCH ×2 (09:37→21:08)
[2017-04-25] MEDS ORDERED: FLU VACCINE QUAD 60 MCG/0.5 ML (MDV 17-18) IM ONE (10:00)
--- NOTE | 2017-04-25 10:02 | PN ---
Progress Note (short form) - Note Progress Note: Neurology This is a female of unknown age and name with unknown medical history who presented BIBA after her called 911 because she had fallen on the floor and was not able to pick herself up after being on the floor for reportedly 24 hours. EMS states that the patient was laying on the carpeted floor on their arrival on scene at her home. The explained that he found her on the floor and she said she felt fine, so he did not call 911 until he saw her in the same place on the floor therafter. The patient was minimally responsive in the ED but able to state she was having left-sided weakness for the past three days which is what caused her to fall but thought it would pass and did not come to the hospital. She was out of TPA window. MRI completed and showed subacute infarcts L temporal/parietal, L thalamic and she does have right sided deficits. There was some facial twitching and patient put on Keppra, increased to 1000mg twice a day over the weekend. Vimpat also started 100mg twice daily, Depakote also started over weekend. Patient on ASA 81mg. CD without hemodynamically significant stenosis, Echo reviewed and LV function normal. Active Medications Aspirin (Ecotrin -) 81 mg PO DAILY [facility] Last Admin: 04/25/17 09:19 Dose: 81 mg Lacosamide (Vimpat Injection -) 100 mg IVPB BID [facility] Stop: 04/28/17 22:01 Last Admin: 04/25/17 09:32 Dose: 100 mg Levetiracetam (Keppra Injection -) 1,000 mg IVPB BID [facility] Last Admin: 04/25/17 09:20 Dose: 1,000 mg Metoprolol Succinate (Toprol Xl -) 25 mg PO DAILY [facility] Last Admin: 04/25/17 09:19 Dose: 25 mg Rosuvastatin Calcium (Crestor -) 40 mg PO HS [facility] Last Admin: 04/24/17 22:02 Dose: 40 mg Valproate Sodium (Depacon Injection -) 1,000 mg IVPB Q12H [facility] Last Admin: 04/25/17 09:37 Dose: 1,000 mg *Physical Exam Vital Signs Period Temp Pulse Resp BP Sys/Levine Pulse Ox Last 24 Hr 97.4 F-99.4 F 75-101 18-20 84-117/43-70 96 - Physical Exam General Appearance: Yes: Disheveled, Other (smells of urine, red carpet threads scattered in hair, unkempt, initially having an apparent diffuse tonic-clonic seizure which lasts about 30 seconds and resolves without intervention, initially not wearing C-collar) HEENT: positive: Hearing Grossly Normal, Neck: positive: Trachea midline, Supple. negative: Tender, Rigid Respiratory/Chest: positive: Lungs Clear, Normal Breath Sounds. negative: Respiratory Distress, Crackles, Rhonchi, Stridor, Wheezing Cardiovascular: positive: Regular Rhythm, Regular Rate. negative: Murmur Gastrointestinal/Abdominal: positive: Normal Bowel Sounds, Soft. negative: Tender, Organomegaly, Pulsatile Mass, Guarding Musculoskeletal: positive: Normal Inspection. negative: Decreased Range of Motion, Vertebral Tenderness Extremity: positive: Normal Capillary Refill, Normal Inspection, Normal Range of Motion. negative: Tender, Cyanosis Integumentary: positive: Normal Color, Dry, Warm. negative: Erythema, Rash, Bruising Neurologic: Limited exam, not participating in full confrontation, move LUE slight more than right, ?3/5 on R, ? 2/5 on L, tactile stimulation intact but limited on R, gait deferred CBCD WBC 7.3 K/mm3 (4.0-10.0) 04/25/17 09:14 RBC 4.33 M/mm3 (3.60-5.2) 04/25/17 09:14 Hgb 13.0 GM/dL (10.7-15.3) 04/25/17 09:14 Hct 38.8 % (32.4-45.2) 04/25/17 09:14 MCV 89.6 fl (80-96) 04/25/17 09:14 MCHC 33.6 g/dl (32.0-36.0) 04/25/17 09:14 RDW 16.7 % (11.6-15.6) H 04/25/17 09:14 Plt Count 156 K/MM3 (134-434) D 04/25/17 09:14 MPV 8.9 fl (7.5-11.1) 04/25/17 09:14 CMP Sodium 139 mmol/L (136-145) 04/25/17 08:30 Potassium 3.8 mmol/L (3.5-5.1) 04/25/17 08:30 Chloride 103 mmol/L (98-107) 04/25/17 08:30 Carbon Dioxide 26 mmol/L (21-32) 04/25/17 08:30 Anion Gap 10 (8-16) 04/25/17 08:30 BUN 9 mg/dL (7-18) D 04/25/17 08:30 Creatinine 0.5 mg/dL (0.55-1.02) L 04/25/17 08:30 Creat Clearance w eGFR > 60 (>60) 04/23/17 06:00 Calcium 9.0 mg/dL (8.5-10.1) 04/25/17 08:30 Total Bilirubin 0.9 mg/dL (0.2-1.0) 04/23/17 06:00 AST 57 U/L (15-37) H 04/23/17 06:00 ALT 37 U/L (12-78) 04/23/17 06:00 Alkaline Phosphatase 50 U/L (45-117) 04/23/17 06:00 Total Protein 5.7 g/dl (6.4-8.2) L 04/23/17 06:00 Albumin 2.8 g/dl (3.4-5.0) L 04/25/17 08:30 - RADIOLOGY MRI brain reviewed CT head as above CD, echo reviewed Medical Decision Making female of unknown age and name with unknown medical history who presented BIBA after her called 911 because she had fallen on the floor and was not able to pick herself up after being on the floor for reportedly 24 hours. EMS states that the patient was laying on the carpeted floor on their arrival on scene at her home. The explained that he found her on the floor and she said she felt fine, so he did not call 911 until he saw her in the same place on the floor therafter. The patient was minimally responsive in the ED but able to state she was having left-sided weakness for the past three days which is what caused her to fall but thought it would pass and did not come to the hospital. There was a question of generalized seizure and positive troponins. CT head completed and did not show acute changes. She was admitted and sent to ICU for close management. She is able to tell me her name is Joe Isidro and name of president but did not know exact location or date. Able to tell birthdate. Trying to complete MRI brain and would need to fill out questionaire. -Patient started on Keppra for seizures, increased to 1000mg twice daily, no witnessed seizures during my visit but reported with arm and leg twitching that is episodic -Vimpat 100mg twice daily and Depakote 1000mg twice daily can be continued -Continue ASA -CD, echo reviewed -BPcontrol, goal < 160/90 for now, < 140/90 as outpatient -PT/OT as tolerated -DVT ppx -IV hydration for rhabdo, monitor CPK -Will need rehab placement
--- NOTE | 2017-04-25 12:53 | PN ---
Progress Note, SOFTWARE PROGRAMMER - Note Progress Note: Pt on Puree/nectar/sips of water. MRI completed and showed subacute infarcts L temporal/parietal, L thalamic and she does have right sided deficits. Selected Entries 04/21/17 04/21/17 04/21/17 01:00 01:40 05:00 Breakfast Lunch Supper Temperature 99.4 F 99.1 F 99 F 04/21/17 04/21/17 04/21/17 10:00 12:00 18:00 Breakfast Lunch Supper Temperature 99.1 F 99.1 F 97.4 F L 04/21/17 04/22/17 04/22/17 22:00 02:00 06:00 Breakfast Lunch Supper Temperature 98.2 F 98.4 F 98.2 F 04/22/17 04/22/17 04/22/17 10:00 14:00 17:00 Breakfast 50% Lunch 25% Supper Temperature 97.6 F 98.0 F 98.3 F 04/22/17 04/22/17 04/23/17 20:01 20:39 01:00 Breakfast Lunch Supper 25% Temperature 99.3 F 98.8 F 04/23/17 04/23/17 04/23/17 05:00 09:00 11:02 Breakfast 100% Lunch Supper Temperature 99.2 F 98 F 04/23/17 04/23/17 04/23/17 15:11 18:00 20:45 Breakfast Lunch 75% Supper 75% Temperature 97.7 F 98.5 F 99.2 F 04/24/17 04/24/17 04/24/17 02:00 06:00 09:23 Breakfast Lunch Supper Temperature 99 F 98.8 F 98 F 04/24/17 04/24/17 04/24/17 12:53 15:00 18:00 Breakfast 75% Lunch 50% Supper 50% Temperature 99.4 F 99.1 F 04/24/17 04/25/17 04/25/17 22:00 02:00 06:00 Breakfast Lunch Supper Temperature 98.8 F 97.4 F L 98.5 F 04/25/17 04/25/17 10:00 12:22 Breakfast 75% Lunch Supper Temperature 98.5 F Laboratory Tests 04/23/17 04/25/17 06:00 09:14 WBC 8.6 7.3 Speech initiation impaired but improving. Right side twitching. Anomia with simple intermittent responses. Overtly tolerating thin liquid and trial of soft solid. My concen is the involuntary twitching potentially adversely affecting oropharyngeal control. IMP: Aphasia/Apraxia/ Grossly oriented Swallowing improving REC: Dys ground with 1-2 soft, moist items, Thin liquids. Monitor tolerance
--- NOTE | 2017-04-25 15:09 | PN ---
Progress Note, Physician Chief Complaint: Patient appears comfortable. She is awake and alert. She denies chest pain, SOB , palpitation, dizziness, syncope or near syncope. Tele shows sinus rhythm without arrhythmia. History of Present Illness: 66-year-old woman admitted with acute CVA with dense right hemiparesis. No tPA was given due to the fall. There ECG is consistent with an acute inferior wall infarction. Cardiac markers are elevated. She has no symptoms of angina. Echo 04/21/17 normal EF, normal valves. - Current Medication List Current Medications: Active Medications Aspirin (Ecotrin -) 81 mg PO DAILY [facility] Last Admin: 04/25/17 09:19 Dose: 81 mg Lacosamide (Vimpat Injection -) 100 mg IVPB BID [facility] Stop: 04/28/17 22:01 Last Admin: 04/25/17 09:32 Dose: 100 mg Levetiracetam (Keppra Injection -) 1,000 mg IVPB BID [facility] Last Admin: 04/25/17 09:20 Dose: 1,000 mg Metoprolol Succinate (Toprol Xl -) 25 mg PO DAILY [facility] Last Admin: 04/25/17 09:19 Dose: 25 mg Rosuvastatin Calcium (Crestor -) 40 mg PO HS [facility] Last Admin: 04/24/17 22:02 Dose: 40 mg Valproate Sodium (Depacon Injection -) 1,000 mg IVPB Q12H [facility] Last Admin: 04/25/17 09:37 Dose: 1,000 mg - Objective Vital Signs: Vital Signs Temperature 98.5 F 04/25/17 10:00 Pulse Rate 89 04/25/17 10:00 Respiratory Rate 20 04/25/17 10:00 Blood Pressure 102/79 04/25/17 10:00 O2 Sat by Pulse Oximetry (%) 96 04/25/17 09:00 Constitutional: Yes: Well Nourished, No Distress, Calm Eyes: Yes: Conjunctiva Clear, EOM Intact HENT: Yes: Atraumatic, Normocephalic Neck: Yes: Supple, Trachea Midline Cardiovascular: Yes: Regular Rate and Rhythm Respiratory: Yes: Regular, CTA Bilaterally Gastrointestinal: Yes: WNL, Normal Bowel Sounds, Soft ...Rectal Exam: Yes: Deferred Extremities: Yes: WNL Edema: No Peripheral Pulses WNL: Yes Labs: CBC, BMP 04/25/17 09:14 04/25/17 08:30 INR, PTT INR 0.98 (0.82-1.09) 04/20/17 19:10 Assessment/Plan Acute inferior wall ST elevation TX in the setting of acute CVA. She has been stable without symptoms of angina or CHF. Cardiac markers are trending down. Echo showed normal wall motion and systolic function. She is not a candidate for ischemia workup at this time. LV wall motion and EF are normal, would continue with medical treatment at this point. Continue aspirin, metoprolol and crestor. No need for ACEI due to normal EF. neuro dickson ongoing.
[2017-04-25] MEDS ORDERED: POLYETHYLENE GLYCOL 3350 119 GM BTL PO ONE (15:18)
--- NOTE | 2017-04-25 15:37 | PN ---
Teaching Attending Note Name of Resident: Don Lopez ATTENDING PHYSICIAN STATEMENT I saw and evaluated the patient. I reviewed the resident's note and discussed the case with the resident. I agree with the resident's findings and plan as documented. SUBJECTIVE:states she has no complaints at this time. denies CP, SOB< fever, chills, N/V/C/D. unaware of twitching shes experiencing OBJECTIVE: Last Vital Signs Temp Pulse Resp BP Pulse Ox 98.5 F 89 20 102/79 96 04/25/17 10:04/25/17 10:00 04/25/17 10:04/25/17 10:04/25/17 09:00 General NAD Neuro slurred speech, +myotonic twitching R side of body, decreased sensation R side, strength 1/5 RUE and RLE 4/5 LUE/LLE ASSESSMENT AND PLAN: 66yo F with PMH ETOH use unknown other medical history presented to the ER after found on the floor by her 1. Acute toxic metabolic encephalopathy- Acute L temporal/parietal CVA with tonic/clonic seziures. continues to have R sided hemiparesis and sensation loss iwth myotonic twitching on that side. neuro is aware of twitching per RN. started on depakote and vimpat yesterday. keppra has been increased. will monitor for now. repeat MRI/MRA was not uselful as pt unable to lay still. cont statin/asa 2. Troponin leak-demand ischemia vs NSTEMI. Troponin peaked at 2.74. echo wnl. on lopressor. will need cardiac workup as outpatient. 3. Fever- 101 documented in RN notes but not on flow sheet. check UA stat. on admission UA was negative but Cx was + for Ecoli. if UA is + will treat for UTI. CXR was not done. will check CXR as she is aspiration risk. BCx sent and are pending. 4. Lactic acidosis- likely due to seizure like activity. resolved 5. NICOLÁS- likley dehydration. now resolved 6. Mechanical fall- likely due to CVA vs ETOH intoxication vs other etiology. CT done and r/o fracture. possible Pagets of the R iliac. pt no longer has hip pain, alk phos WNL. would defer treatment for Pagets. would have pt f/u with PMD as outpatient and consider bone scan to further evaulate. asymptomatic at this time if pt does indeed have. 7. Hypokalemia- Kcl 40meq 8 Hypophosphatemia- resolved 9. ETOH use- reported by pt. no signs of withdrawal. monitor. on thiamine/folate /mvi 10. Rhabdomyolsis- due to immobilization. resolved 11. Polycythemia- resolved 12. DVT ppx- lovenox 13. refusing to go to [facility]. SW has done extensive work to find family and unable to locate anyone. Doubt that pt is unable to care for herself at home and would not be safe for her to d/c home as she has significant deficits that would make her unable to carry ADL's. states she has husbnad but no family has visited and unable to reach anyone. may need to get psych involvement to determine competency.
[2017-04-25] MEDS ORDERED: POTASSIUM CHLORIDE TABS 20 MEQ TABLET.ER (FP) PO ONE (16:04)
--- NOTE | 2017-04-25 17:44 | PN ---
Physical Exam: SUBJECTIVE: Patient seen and examined at bedside. She has no new complaints. Patient continues to have rhythmic tonic movements of the right extremities. PAtient spiked a fever to 101 last night OBJECTIVE: Vital Signs Period Temp Pulse Resp BP Sys/Levine Pulse Ox Last 24 Hr 97.4 F-99.1 F 75-101 18-20 84-119/43-79 96-96 GENERAL: The patient is awake, alert, and fully oriented, in no acute distress. HEAD: Normal with no signs of trauma. EYES: PERRL, extraocular movements intact, sclera anicteric, conjunctiva clear. No ptosis. NECK: Trachea midline, full range of motion, supple. LUNGS: Breath sounds equal, clear to auscultation bilaterally, no wheezes, no crackles, no accessory muscle use. HEART: Regular rate and rhythm, S1, S2 without murmur, rub or gallop. ABDOMEN: Soft, nontender, nondistended, normoactive bowel sounds, no guarding, no rebound. EXTREMITIES: 2+ pulses, warm, well-perfused, no edema. NEUROLOGICAL: Cranial nerves II through X grossly intact. Normal speech, gait not observed. 0/5 strength in right upper and lower extremity. Right sided facial droop noted. PSYCH: Normal mood, normal affect. SKIN: Warm, dry, normal turgor, no rashes or lesions noted Laboratory Results - last 24 hr 04/25/17 04/25/17 04/25/17 00:17 08:30 09:14 WBC 7.3 RBC 4.33 Hgb 13.0 Hct 38.8 MCV 89.6 MCH 30.1 MCHC 33.6 RDW 16.7 H Plt Count 156 D MPV 8.9 Neutrophils % 70.9 Lymphocytes % 17.6 D Monocytes % 9.7 Eosinophils % 1.4 D Basophils % 0.4 D Sodium 139 Potassium 3.8 Chloride 103 Carbon Dioxide 26 Anion Gap 10 BUN 9 D Creatinine 0.5 L POC Glucometer 99 Random Glucose 110 H Calcium 9.0 Phosphorus 3.9 D Magnesium 1.9 D Albumin 2.8 L Active Medications Generic Name Dose Route Start Last Admin Trade Name Freq PRN Reason Stop Dose Admin Aspirin 81 mg 04/22/17 10:00 04/25/17 09:19 Ecotrin - PO 81 mg DAILY [facility] Administration Lacosamide 100 mg 04/24/17 17:15 04/25/17 09:32 Vimpat Injection - IVPB 04/28/17 22:01 100 mg BID [facility] Administration Levetiracetam 1,000 mg 04/24/17 10:00 04/25/17 09:20 Keppra Injection - IVPB 1,000 mg BID [facility] Administration Metoprolol Succinate 25 mg 04/22/17 10:00 04/25/17 09:19 Toprol Xl - PO 25 mg DAILY [facility] Administration Rosuvastatin Calcium 40 mg 04/22/17 22:00 04/24/17 22:02 Crestor - PO 40 mg HS [facility] Administration Valproate Sodium 1,000 mg 04/25/17 08:00 04/25/17 09:37 Depacon Injection - IVPB 1,000 mg Q12H [facility] Administration ASSESSMENT/PLAN: 66 yo f w/PMH ETOH abuse w/ rest of PMH unknown presents s/p fall for 24 hours admitted for CVA with myotonic movments and residual right sided weakness. 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, parietal and thalamic CVA -Echo WNL -Carotid dopplers WNL -RPT MRA shows possible occlusion or superior M2 branch of Left MCA -MRI shows infarcts in left temporal and parietal lobes as well as in left thalmus -patient continues to have tonic movements of right limbs -Will follow neurology reccs to attempt control of tonic movements: -Keppra 750 IV BID increased to 1g BID -Depacon 1g IV Q12H -lacosamide 100mg IV BID #New onset fever to 101, possibly 2/2 UTI -UA on admission was negative for UTI -Ucx from admission growing e. coli -Will obtain repeat UA. If positive, will treat for presumptive UTI with Ceftriaxone. -Bcx, repeat ucx pending -cxr (by my read) unchanged from previous. will follow official read #Troponinemia 2/2 STEMI -Troponin peak at 2.7 documented -No anginal symptoms currently -Echo WNL -no ischemic workup indicated at this time as per cardio -ASA 81 -Toprolol XL 25mg -anticoagulation contraindicated in the setting of acute stroke #Lactic Acidosis- resolved -Lactic acid 1.1 now -UCX, BCX pending #Elevated CK 2/2 acute VA vs seizure activity- resolved -ck trending down #NICOLÁS-resolved -cr. 1.2 on admission -cr. .9 now #FEN -no fluids indicated at this time -potassium 3.8, will replete -Dysphagia puree #Propylaxsis -SCDs, heparin c/i at this time in the setting of CVA -GI- not indicated at this time -OOB to chair #Dispo -patient admitted for workup and treatment of acute stroke. -patient is refusing RAHUL. Multiple attempts to reach the family have been made by multiple health care teams. -Patient is not able to carry out ADLs on her own and requires assistance. Without contact with family members, she will be unable to be discharged home. -Psych may need to be involve to assess the patient's capacity to refuse further treatment. Problem List - Problems (1) CVA (cerebral vascular accident) Code(s): I63.9 - CEREBRAL INFARCTION, UNSPECIFIED Qualifiers: CVA mechanism: unspecified Qualified Code(s): I63.9 - Cerebral infarction, unspecified (2) Seizure Code(s): R56.9 - UNSPECIFIED CONVULSIONS Visit type - Emergency Visit Emergency Visit: Yes ED Registration Date: 04/21/17 Care time: The patient presented to the Emergency Department on the above date and was hospitalized for further evaluation of their emergent condition. - New Patient This patient is new to me today: No - Critical Care Critical Care patient: No
[2017-04-25 21:01] LABS: URINE APPEARANCE SLCLOUDY; URINE BILIRUBIN NEGATIVE (NEGATIVE); URINE BLOOD 2+ (NEGATIVE); URINE COLOR YELLOW; URINE GLUCOSE (UA) NEGATIVE (NEGATIVE); URINE KETONE TRACE (NEGATIVE); URINE NITRITE NEGATIVE (NEGATIVE); URINE PROTEIN NEGATIVE (NEGATIVE)
[2017-04-25 21:03] LABS: URINE LEUK ESTERASE 3+ (NEGATIVE)
[2017-04-25 21:04] LABS: URINE BACTERIA RARE /hpf (NONE SEEN); URINE MUCUS RARE; URINE RBC 3 /hpf (0-3); URINE WBC 54 /hpf (3-5)
[2017-04-25] MEDS: ROSUVASTATIN CA 20 MG TABLET (FP) PO SCH (22:36)
[2017-04-26 07:38] LABS: MCH 31.1 pg (25.7-33.7); MCHC 34.4 g/dl (32.0-36.0); MEAN CELL VOLUME 90.4 fl (80-96); MEAN PLT VOLUME 8.6 fl (7.5-11.1); PLATELET COUNT 180 K/MM3 (134-434); RDW 16.7 % (11.6-15.6); WHITE BLOOD COUNT 7.6 K/mm3 (4.0-10.0)
[2017-04-26] MEDS ORDERED: PT OWN MED DRAWER 7, Y5N ONE (08:49)
[2017-04-26 09:06] LABS: ANION GAP 9 (8-16); CALCIUM 9.2 mg/dL (8.5-10.1); CO2 27 mmol/L (21-32); GLUCOSE,RANDOM 80 mg/dL (74-106)
[2017-04-26] MEDS: VALPROATE SODIUM 500 MG/5 ML VIAL IVPB SCH (09:06)
[2017-04-26 09:07] LABS: CREATININE 0.5 mg/dL (0.55-1.02)
[2017-04-26] MEDS: ASPIRIN COATED 81 MG TABLET.EC PO SCH (09:13)
[2017-04-26] MEDS: METOPROLOL SUCCINATE 25 MG TAB.SR.24H (FP) PO SCH (09:13)
--- NOTE | 2017-04-26 10:21 | PN ---
Progress Note (short form) - Note Progress Note: Neurology This is a female of unknown age and name with unknown medical history who presented BIBA after her called 911 because she had fallen on the floor and was not able to pick herself up after being on the floor for reportedly 24 hours. EMS states that the patient was laying on the carpeted floor on their arrival on scene at her home. The explained that he found her on the floor and she said she felt fine, so he did not call 911 until he saw her in the same place on the floor therafter. The patient was minimally responsive in the ED but able to state she was having left-sided weakness for the past three days which is what caused her to fall but thought it would pass and did not come to the hospital. She was out of TPA window. MRI completed and showed subacute infarcts L temporal/parietal, L thalamic and she does have right sided deficits. There was some facial twitching and patient put on Keppra, increased to 1000mg twice a day over the weekend. Vimpat also started 100mg twice daily, Depakote also started over weekend. Patient on ASA 81mg. CD without hemodynamically significant stenosis, Echo reviewed and LV function normal. Will convert AED's to PO today. Possibly for rehab placement. Will add Klonipin for low amplitude tremor that's bilateral and ongoing. Active Medications Aspirin (Ecotrin -) 81 mg PO DAILY [facility] Last Admin: 04/26/17 09:13 Dose: 81 mg Lacosamide (Vimpat Injection -) 100 mg IVPB BID [facility] Stop: 04/28/17 22:01 Last Admin: 04/25/17 22:53 Dose: 100 mg Levetiracetam (Keppra Injection -) 1,000 mg IVPB BID [facility] Last Admin: 04/25/17 22:37 Dose: 1,000 mg Metoprolol Succinate (Toprol Xl -) 25 mg PO DAILY [facility] Last Admin: 04/26/17 09:13 Dose: 25 mg Rosuvastatin Calcium (Crestor -) 40 mg PO HS [facility] Last Admin: 04/25/17 22:36 Dose: 40 mg Valproate Sodium (Depacon Injection -) 1,000 mg IVPB Q12H [facility] Last Admin: 04/26/17 09:06 Dose: 1,000 mg *Physical Exam Vital Signs Temperature 98.9 F 04/26/17 06:59 Pulse Rate 82 04/26/17 05:47 Respiratory Rate 20 04/26/17 05:47 Blood Pressure 120/73 04/26/17 05:47 O2 Sat by Pulse Oximetry (%) 95 04/25/17 21:00 - Physical Exam General Appearance: Yes: Disheveled, Other (smells of urine, red carpet threads scattered in hair, unkempt, initially having an apparent diffuse tonic-clonic seizure which lasts about 30 seconds and resolves without intervention, initially not wearing C-collar) HEENT: positive: Hearing Grossly Normal, Neck: positive: Trachea midline, Supple. negative: Tender, Rigid Respiratory/Chest: positive: Lungs Clear, Normal Breath Sounds. negative: Respiratory Distress, Crackles, Rhonchi, Stridor, Wheezing Cardiovascular: positive: Regular Rhythm, Regular Rate. negative: Murmur Gastrointestinal/Abdominal: positive: Normal Bowel Sounds, Soft. negative: Tender, Organomegaly, Pulsatile Mass, Guarding Musculoskeletal: positive: Normal Inspection. negative: Decreased Range of Motion, Vertebral Tenderness Extremity: positive: Normal Capillary Refill, Normal Inspection, Normal Range of Motion. negative: Tender, Cyanosis Integumentary: positive: Normal Color, Dry, Warm. negative: Erythema, Rash, Bruising Neurologic: Limited exam, not participating in full confrontation, move LUE slight more than right, ?3/5 on R, ? 2/5 on L, tactile stimulation intact but limited on R, gait deferred CBCD WBC 7.6 K/mm3 (4.0-10.0) 04/26/17 05:28 RBC 4.10 M/mm3 (3.60-5.2) 04/26/17 05:28 Hgb 12.7 GM/dL (10.7-15.3) 04/26/17 05:28 Hct 37.0 % (32.4-45.2) 04/26/17 05:28 MCV 90.4 fl (80-96) 04/26/17 05:28 MCHC 34.4 g/dl (32.0-36.0) 04/26/17 05:28 RDW 16.7 % (11.6-15.6) H 04/26/17 05:28 Plt Count 180 K/MM3 (134-434) 04/26/17 05:28 MPV 8.6 fl (7.5-11.1) 04/26/17 05:28 CMP Sodium 137 mmol/L (136-145) 04/26/17 05:28 Potassium 4.1 mmol/L (3.5-5.1) 04/26/17 05:28 Chloride 101 mmol/L (98-107) 04/26/17 05:28 Carbon Dioxide 27 mmol/L (21-32) 04/26/17 05:28 Anion Gap 9 (8-16) 04/26/17 05:28 BUN 8 mg/dL (7-18) 04/26/17 05:28 Creatinine 0.5 mg/dL (0.55-1.02) L 04/26/17 05:28 Creat Clearance w eGFR > 60 (>60) 04/23/17 06:00 Calcium 9.2 mg/dL (8.5-10.1) 04/26/17 05:28 Total Bilirubin 0.9 mg/dL (0.2-1.0) 04/23/17 06:00 AST 57 U/L (15-37) H 04/23/17 06:00 ALT 37 U/L (12-78) 04/23/17 06:00 Alkaline Phosphatase 50 U/L (45-117) 04/23/17 06:00 Total Protein 5.7 g/dl (6.4-8.2) L 04/23/17 06:00 Albumin 2.8 g/dl (3.4-5.0) L 04/25/17 08:30 - RADIOLOGY MRI brain reviewed CT head as above CD, echo reviewed Medical Decision Making female of unknown age and name with unknown medical history who presented BIBA after her called 911 because she had fallen on the floor and was not able to pick herself up after being on the floor for reportedly 24 hours. EMS states that the patient was laying on the carpeted floor on their arrival on scene at her home. The explained that he found her on the floor and she said she felt fine, so he did not call 911 until he saw her in the same place on the floor therafter. The patient was minimally responsive in the ED but able to state she was having left-sided weakness for the past three days which is what caused her to fall but thought it would pass and did not come to the hospital. There was a question of generalized seizure and positive troponins. CT head completed and did not show acute changes. She was admitted and sent to ICU for close management. She is able to tell me her name is Joe Isidro and name of president but did not know exact location or date. Able to tell birthdate. Trying to complete MRI brain and would need to fill out questionaire. -Patient started on Keppra for seizures, increased to 1000mg twice daily, no witnessed seizures during my visit but reported with arm and leg twitching that is episodic -Vimpat 100mg twice daily and Depakote 1000mg twice daily can be continued, will convert to PA -will add Klonipin 1mg Q12 hrs for tremor -Continue ASA -CD, echo reviewed -BPcontrol, goal < 160/90 for now, < 140/90 as outpatient -PT/OT as tolerated -DVT ppx -IV hydration for rhabdo, monitor CPK -Will need rehab placement
[2017-04-26] MEDS ORDERED: clonazePAM 0.5 MG TABLET PO SCH (10:30)
[2017-04-26] MEDS ORDERED: LACOSAMIDE 10 MG/1 ML PO SCH (11:00)
[2017-04-26] MEDS: levETIRAcetam 500 MG TABLET (FP) PO SCH ×2 (11:22→21:55)
[2017-04-26] MEDS ORDERED: LACOSAMIDE 50 MG TABLET PO SCH (11:43)
[2017-04-26] MEDS: LACOSAMIDE 50 MG TABLET PO SCH ×2 (12:13→22:00)
--- NOTE | 2017-04-26 12:47 | PN ---
Progress Note, [employer] - Note Progress Note: Received Klonopin today for seizures. Seems less verbal, less responsive with greater delay. Eyes less open, blinking. Reduced intelligibility sec Klonopin? Discussed with nursing change in status. Selected Entries 04/25/17 04/25/17 04/25/17 02:00 06:00 10:00 Breakfast Lunch Temperature 97.4 F L 98.5 F 98.5 F 04/25/17 04/25/17 04/25/17 12:22 14:00 21:11 Breakfast 75% Lunch 75% Temperature 97.9 F 98.2 F 04/26/17 04/26/17 04/26/17 02:00 05:47 06:59 Breakfast Lunch Temperature 98.0 F 97.7 F 98.9 F 04/26/17 04/26/17 09:53 10:00 Breakfast 50% Lunch Temperature 99.8 F H Continue diet,as tolerated. Monitor PO tolerance.
--- NOTE | 2017-04-26 14:00 | PN ---
Progress Note, Physician Chief Complaint: Patient appears comfortable. She is awake. No acute distress. Tele shows sinus rhythm without arrhythmia. History of Present Illness: 66-year-old woman admitted with acute CVA with dense right hemiparesis. No tPA was given due to the fall. There ECG is consistent with an acute inferior wall infarction. Cardiac markers are elevated. She has no symptoms of angina. Echo 04/21/17 normal EF, normal valves. - Current Medication List Current Medications: Active Medications Aspirin (Ecotrin -) 81 mg PO DAILY [facility] Last Admin: 04/26/17 09:13 Dose: 81 mg Clonazepam (Klonopin -) 1 mg PO BID [facility] Last Admin: 04/26/17 11:22 Dose: 1 mg Divalproex Sodium (Depakote -) 1,000 mg PO BID [facility] Lacosamide (Vimpat -) 100 mg PO BID [facility] Last Admin: 04/26/17 12:13 Dose: 100 mg Levetiracetam (Keppra -) 1,000 mg PO BID [facility] Last Admin: 04/26/17 11:22 Dose: 1,000 mg Metoprolol Succinate (Toprol Xl -) 25 mg PO DAILY [facility] Last Admin: 04/26/17 09:13 Dose: 25 mg Rosuvastatin Calcium (Crestor -) 40 mg PO HS [facility] Last Admin: 04/25/17 22:36 Dose: 40 mg - Objective Vital Signs: Vital Signs Temperature 99.8 F H 04/26/17 10:00 Pulse Rate 83 04/26/17 10:00 Respiratory Rate 20 04/26/17 10:00 Blood Pressure 102/63 04/26/17 10:00 O2 Sat by Pulse Oximetry (%) 95 04/26/17 09:00 Constitutional: Yes: Well Nourished, No Distress, Calm Eyes: Yes: Conjunctiva Clear HENT: Yes: Atraumatic, Normocephalic Neck: Yes: Supple, Trachea Midline Cardiovascular: Yes: Regular Rate and Rhythm, S1, S2 Respiratory: Yes: Regular, CTA Bilaterally Gastrointestinal: Yes: Normal Bowel Sounds, Soft ...Rectal Exam: Yes: Deferred Extremities: Yes: WNL Edema: No Peripheral Pulses WNL: Yes Labs: CBC, BMP 04/26/17 05:28 04/26/17 05:28 INR, PTT INR 0.98 (0.82-1.09) 04/20/17 19:10 Assessment/Plan Acute inferior wall ST elevation SC in the setting of acute CVA. She has been stable without symptoms of angina or CHF. Cardiac markers are trending down. Echo showed normal wall motion and systolic function. She is not a candidate for myocardial ischemia workup at this time. LV wall motion and EF are normal, would continue with medical treatment at this point. Continue aspirin, metoprolol and crestor. No need for ACEI due to normal EF. Neuro follow up. May discontinue telemetry. Please call us for reconsult as needed.
[2017-04-26] MEDS ORDERED: ACETAMINOPHEN 325 MG TABLET (FP) PO PRN (16:02)
--- NOTE | 2017-04-26 17:48 | PN ---
Teaching Attending Note Name of Resident: Don Lopez ATTENDING PHYSICIAN STATEMENT I saw and evaluated the patient. I reviewed the resident's note and discussed the case with the resident. I agree with the resident's findings and plan as documented. SUBJECTIVE: Patient has no complaints and wants to go home. OBJECTIVE: Vital Signs Period Temp Pulse Resp BP Sys/Levine Pulse Ox Last 24 Hr 97.7 F-99.8 F 80-92 2-20 102-145/50-73 95-95 HEART: S1S2, RRR LUNGS: Clear ABDOMEN: Soft, non-tender, non-distended, normal BS EXTREMITIES: No edema NEUROLOGICAL: Mild slurred speech, RUE/RLE strength 1/5 Current Medications Generic Name Dose Route Start Last Admin Trade Name Freq PRN Reason Stop Dose Admin Acetaminophen 650 mg 04/26/17 16:02 Tylenol - PO Q6H PRN FEVER OR PAIN Aspirin 81 mg 04/22/17 10:00 04/26/17 09:13 Ecotrin - PO 81 mg DAILY [facility] Administration Clonazepam 0.5 mg 04/26/17 22:00 Klonopin - PO BID [facility] Divalproex Sodium 1,000 mg 04/26/17 22:00 Depakote - PO BID [facility] Lacosamide 100 mg 04/26/17 12:00 04/26/17 12:13 Vimpat - PO 100 mg BID [facility] Administration Levetiracetam 1,000 mg 04/26/17 11:00 04/26/17 11:22 Keppra - PO 1,000 mg BID [facility] Administration Metoprolol Succinate 25 mg 04/22/17 10:00 04/26/17 09:13 Toprol Xl - PO 25 mg DAILY [facility] Administration Rosuvastatin Calcium 40 mg 04/22/17 22:00 04/25/17 22:36 Crestor - PO 40 mg HS [facility] Administration Senna 1 tab 04/26/17 22:00 Senna - PO HS [facility] ASSESSMENT AND PLAN: This is a 66 year old woman with a history of alcohol abuse who presented to the ER after she was found on the floor by her . 1. 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 Tonic-clonic seizures - Continue Keppra, Depakote, Vimpat, Klonopin 3. Acute inferior wall STEMI - Echo shows normal LV, normal RV - Continue medical management - Continue aspirin, Toprol XL, Crestor 4. Lactic acidemia secondary to seizure - Resolved 5. Acute kidney injury likely secondary to dehydration - Resolved 6. Hypokalemia - Improved 7. Hypophosphatemia - Improved 8. Hypomagnesemia - Improved 9. Alcohol abuse - No signs of withdrawal 10. Rhabdomyolsis 11. Polycythemia secondary to dehydration - Resolved
--- NOTE | 2017-04-26 20:49 | PN ---
Physical Exam: SUBJECTIVE: Patient seen and examined at bedside. She continues to have myoclonic movements of the right side. She continues to refuse RAHUL and insists on talking to her . OBJECTIVE: Vital Signs Period Temp Pulse Resp BP Sys/Levine Pulse Ox Last 24 Hr 97.7 F-99.8 F 76-92 2-20 102-145/50-73 95-96 GENERAL: The patient is awake, alert, and fully oriented, in no acute distress. HEAD: Normal with no signs of trauma. EYES: extraocular movements intact, sclera anicteric, conjunctiva clear. No ptosis. NECK: Trachea midline, full range of motion, supple. LUNGS: Breath sounds equal, clear to auscultation bilaterally, no wheezes, no crackles, no accessory muscle use. HEART: Regular rate and rhythm, S1, S2 without murmur, rub or gallop. ABDOMEN: Soft, nontender, nondistended, normoactive bowel sounds, no guarding, no rebound. EXTREMITIES: 2+ pulses, warm, well-perfused, no edema. NEUROLOGICAL: Cranial nerves II through X grossly intact. Normal speech, gait not observed. 2/5 strength on right side, 5/5 on left. Patient endorses loss of sensation on right. PSYCH: Normal mood, normal affect. SKIN: Warm, dry, normal turgor, no rashes or lesions noted Laboratory Results - last 24 hr 04/25/17 04/26/17 04/26/17 18:22 05:28 05:28 WBC 7.6 RBC 4.10 Hgb 12.7 Hct 37.0 MCV 90.4 MCH 31.1 MCHC 34.4 RDW 16.7 H Plt Count 180 MPV 8.6 Sodium 137 Potassium 4.1 Chloride 101 Carbon Dioxide 27 Anion Gap 9 BUN 8 Creatinine 0.5 L Random Glucose 80 D Calcium 9.2 Urine Color Yellow Urine Appearance Slcloudy Urine pH 7.0 Ur Specific Sandy 1.015 Urine Protein Negative Urine Glucose (UA) Negative Urine Ketones Trace H Urine Blood 2+ H Urine Nitrite Negative Urine Bilirubin Negative Urine Urobilinogen 2.0 H Urine RBC 3 Urine WBC 54 Urine Bacteria Rare Urine Mucus Rare Active Medications Generic Name Dose Route Start Last Admin Trade Name Freq PRN Reason Stop Dose Admin Acetaminophen 650 mg 04/26/17 16:02 Tylenol - PO Q6H PRN FEVER OR PAIN Aspirin 81 mg 04/22/17 10:00 04/26/17 09:13 Ecotrin - PO 81 mg DAILY [facility] Administration Clonazepam 0.5 mg 04/26/17 22:00 Klonopin - PO BID [facility] Divalproex Sodium 1,000 mg 04/26/17 22:00 Depakote - PO BID [facility] Lacosamide 100 mg 04/26/17 12:00 04/26/17 12:13 Vimpat - PO 100 mg BID [facility] Administration Levetiracetam 1,000 mg 04/26/17 11:00 04/26/17 11:22 Keppra - PO 1,000 mg BID [facility] Administration Metoprolol Succinate 25 mg 04/22/17 10:00 04/26/17 09:13 Toprol Xl - PO 25 mg DAILY [facility] Administration Rosuvastatin Calcium 40 mg 04/22/17 22:00 04/25/17 22:36 Crestor - PO 40 mg HS [facility] Administration Senna 1 tab 04/26/17 22:00 Senna - PO HS [facility] ASSESSMENT/PLAN: 66 yo f w/PMH ETOH abuse w/ rest of PMH unknown presents s/p fall for 24 hours admitted for CVA with myotonic movments and residual right sided weakness. 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, parietal and thalamic CVA -RPT MRA shows possible occlusion or superior M2 branch of Left MCA -MRI shows infarcts in left temporal and parietal lobes as well as in left thalmus -patient continues to have tonic movements of right limbs -Will follow neurology reccs to attempt control of tonic movements: -Neuro has converted anti seizure meds to PO -Keppra 1g PO BID -Depakote 1g PO BID -lacosamide 100mg PO BID -klonopin .5 BID PO added #New onset fever to 101, possibly 2/2 UTI- resolved -Patient afebrile -UA on admission was negative for UTI -Ucx from admission growing e. coli -repeat UA Not indiciative of UTI -Bcx negative -repeat ucx growing lactose fermenting negative bacilli #Troponinemia 2/2 STEMI -Troponin peak at 2.7 documented -No anginal symptoms currently -no ischemic workup indicated at this time as per cardio -ASA 81 -Toprolol XL 25mg -anticoagulation contraindicated in the setting of acute stroke #Lactic Acidosis- resolved -Lactic acid 1.1 now -UCX, BCX pending #Elevated CK 2/2 acute TN vs seizure activity- resolved -ck trending down #NICOLÁS-resolved -cr. 1.2 on admission -cr. .9 now #FEN -no fluids indicated at this time -potassium 3.8, will replete -Dysphagia puree #Propylaxsis -SCDs, heparin c/i at this time in the setting of CVA -GI- not indicated at this time -OOB to chair #Dispo -patient admitted for workup and treatment of acute stroke. -patient is refusing RAHUL. Multiple attempts to reach the family have been made by multiple health care teams. -Patient is not able to carry out ADLs on her own and requires assistance. Without contact with family members, she will be unable to be discharged home. -Psych may need to be involve to assess the patient's capacity to refuse further treatment. -Case management to contact adult protective services as patient seems to have been abandoned by Problem List - Problems (1) CVA (cerebral vascular accident) Code(s): I63.9 - CEREBRAL INFARCTION, UNSPECIFIED Qualifiers: CVA mechanism: unspecified Qualified Code(s): I63.9 - Cerebral infarction, unspecified (2) Seizure Code(s): R56.9 - UNSPECIFIED CONVULSIONS Visit type - Emergency Visit Emergency Visit: Yes ED Registration Date: 04/21/17 Care time: The patient presented to the Emergency Department on the above date and was hospitalized for further evaluation of their emergent condition. - New Patient This patient is new to me today: No - Critical Care Critical Care patient: No
[2017-04-26] MEDS: ROSUVASTATIN CA 20 MG TABLET (FP) PO SCH (21:54)
[2017-04-26] MEDS: SENNOSIDES 8.6MG TABLET (FP) PO SCH (21:55)
[2017-04-26] MEDS: clonazePAM 0.5 MG TABLET PO SCH (21:55)
[2017-04-26] MEDS: DIVALPROEX SODIUM 500 MG TABLET E.C. PO SCH (22:00)
--- NOTE | 2017-04-27 06:00 | PN ---
Physical Exam: SUBJECTIVE: Patient seen and examined at bedside. She has no new complaints and states that she feels fine. OBJECTIVE: Vital Signs Period Temp Pulse Resp BP Sys/Levine Pulse Ox Last 24 Hr 97.4 F-99.8 F 64-83 20-20 94-120/58-64 95-96 GENERAL: The patient is awake, alert, and fully oriented, in no acute distress. HEAD: Normal with no signs of trauma. EYES: extraocular movements intact, sclera anicteric, conjunctiva clear. No ptosis. NECK: Trachea midline, full range of motion, supple. LUNGS: Breath sounds equal, clear to auscultation bilaterally, no wheezes, no crackles, no accessory muscle use. HEART: Regular rate and rhythm, S1, S2 without murmur, rub or gallop. ABDOMEN: Soft, nontender, nondistended, normoactive bowel sounds, no guarding, no rebound, no hepatosplenomegaly, no masses. EXTREMITIES: 2+ pulses, warm, well-perfused, no edema. NEUROLOGICAL: Cranial nerves II through X grossly intact. Normal speech, gait not observed. 2/5 strength on the right, 5/5 strength on the left. PSYCH: Normal mood, normal affect. SKIN: Warm, dry, normal turgor, no rashes or lesions noted Laboratory Results - last 24 hr 04/26/17 04/26/17 05:28 05:28 WBC 7.6 RBC 4.10 Hgb 12.7 Hct 37.0 MCV 90.4 MCH 31.1 MCHC 34.4 RDW 16.7 H Plt Count 180 MPV 8.6 Sodium 137 Potassium 4.1 Chloride 101 Carbon Dioxide 27 Anion Gap 9 BUN 8 Creatinine 0.5 L Random Glucose 80 D Calcium 9.2 Active Medications Generic Name Dose Route Start Last Admin Trade Name Freq PRN Reason Stop Dose Admin Acetaminophen 650 mg 04/26/17 16:02 Tylenol - PO Q6H PRN FEVER OR PAIN Aspirin 81 mg 04/22/17 10:00 04/26/17 09:13 Ecotrin - PO 81 mg DAILY [facility] Administration Clonazepam 0.5 mg 04/26/17 22:00 04/26/17 21:55 Klonopin - PO 0.5 mg BID [facility] Administration Divalproex Sodium 1,000 mg 04/26/17 22:00 04/26/17 22:00 Depakote - PO 1,000 mg BID [facility] Administration Lacosamide 100 mg 04/26/17 12:00 04/26/17 22:00 Vimpat - PO 100 mg BID [facility] Administration Levetiracetam 1,000 mg 04/26/17 11:00 04/26/17 21:55 Keppra - PO 1,000 mg BID [facility] Administration Metoprolol Succinate 25 mg 04/22/17 10:00 04/26/17 09:13 Toprol Xl - PO 25 mg DAILY [facility] Administration Rosuvastatin Calcium 40 mg 04/22/17 22:00 04/26/17 21:54 Crestor - PO 40 mg HS [facility] Administration Senna 1 tab 04/26/17 22:00 04/26/17 21:55 Senna - PO 1 tab HS [facility] Administration ASSESSMENT/PLAN: 66 yo f w/PMH ETOH abuse w/ rest of PMH unknown presents s/p fall for 24 hours admitted for CVA with myotonic movments and residual right sided weakness. 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, parietal and thalamic CVA -RPT MRA shows possible occlusion or superior M2 branch of Left MCA -MRI shows infarcts in left temporal and parietal lobes as well as in left thalmus -patient continues to have tonic movements of right limbs -Will follow neurology reccs to attempt control of tonic movements: -Keppra 1g PO BID -Depakote 1g PO BID -lacosamide 100mg PO BID -klonopin .5 BID PO added #New onset fever to 101, possibly 2/2 UTI- resolved -Patient afebrile for >24h -repeat UA Not indiciative of UTI -repeat ucx growing E. Coli -repeat bcx growing coagulase negative staph #Troponinemia 2/2 STEMI -Troponin peak at 2.7 documented -No anginal symptoms currently -no ischemic workup indicated at this time as per cardio -ASA 81 -Toprolol XL 25mg -anticoagulation contraindicated in the setting of acute stroke #Lactic Acidosis- resolved -Lactic acid 1.1 now #Elevated CK 2/2 acute DC vs seizure activity- resolved -ck trending down #NICOLÁS-resolved -cr. .9 now #FEN -no fluids indicated at this time -monitor lytes -Dysphagia ground; soft items on tray #Propylaxsis -SCDs, heparin c/i at this time in the setting of CVA -GI- not indicated at this time -OOB to chair #Dispo -patient admitted for workup and treatment of acute stroke. -patient is refusing RAHUL. Multiple attempts to reach the family have been made by multiple health care teams. -Patient is not able to carry out ADLs on her own and requires assistance. Without contact with family members, she will be unable to be discharged home. -Psych called to assess the patient's capacity to refuse further treatment. -Case management to contact adult protective services as patient seems to have been abandoned by Problem List - Problems (1) CVA (cerebral vascular accident) Code(s): I63.9 - CEREBRAL INFARCTION, UNSPECIFIED Qualifiers: CVA mechanism: unspecified Qualified Code(s): I63.9 - Cerebral infarction, unspecified (2) Seizure Code(s): R56.9 - UNSPECIFIED CONVULSIONS Visit type - Emergency Visit Emergency Visit: Yes ED Registration Date: 04/21/17 Care time: The patient presented to the Emergency Department on the above date and was hospitalized for further evaluation of their emergent condition. - New Patient This patient is new to me today: No - Critical Care Critical Care patient: No
[2017-04-27] MEDS: clonazePAM 0.5 MG TABLET PO SCH ×2 (09:53→22:04)
[2017-04-27] MEDS: LACOSAMIDE 50 MG TABLET PO SCH ×2 (09:53→22:03)
[2017-04-27] MEDS: levETIRAcetam 500 MG TABLET (FP) PO SCH ×2 (09:53→22:03)
--- NOTE | 2017-04-27 09:54 | PN ---
Progress Note (short form) - Note Progress Note: Neurology This is a female of unknown age and name with unknown medical history who presented BIBA after her called 911 because she had fallen on the floor and was not able to pick herself up after being on the floor for reportedly 24 hours. EMS states that the patient was laying on the carpeted floor on their arrival on scene at her home. The explained that he found her on the floor and she said she felt fine, so he did not call 911 until he saw her in the same place on the floor therafter. The patient was minimally responsive in the ED but able to state she was having left-sided weakness for the past three days which is what caused her to fall but thought it would pass and did not come to the hospital. She was out of TPA window. MRI completed and showed subacute infarcts L temporal/parietal, L thalamic and she does have right sided deficits. There was some facial twitching and patient put on Keppra, increased to 1000mg twice a day over the weekend. Vimpat also started 100mg twice daily, Depakote also started over weekend. Patient on ASA 81mg. CD without hemodynamically significant stenosis, Echo reviewed and LV function normal. AED' s converted to PO. Possibly for rehab placement. Klonipin for low amplitude tremor added, not having seizure events at this time. Active Medications Acetaminophen (Tylenol -) 650 mg PO Q6H PRN PRN Reason: FEVER OR PAIN Aspirin (Ecotrin -) 81 mg PO DAILY [facility] Last Admin: 04/26/17 09:13 Dose: 81 mg Clonazepam (Klonopin -) 0.5 mg PO BID [facility] Last Admin: 04/26/17 21:55 Dose: 0.5 mg Divalproex Sodium (Depakote -) 1,000 mg PO BID [facility] Last Admin: 04/26/17 22:00 Dose: 1,000 mg Lacosamide (Vimpat -) 100 mg PO BID [facility] Last Admin: 04/26/17 22:00 Dose: 100 mg Levetiracetam (Keppra -) 1,000 mg PO BID [facility] Last Admin: 04/26/17 21:55 Dose: 1,000 mg Metoprolol Succinate (Toprol Xl -) 25 mg PO DAILY [facility] Last Admin: 04/26/17 09:13 Dose: 25 mg Rosuvastatin Calcium (Crestor -) 40 mg PO [facility] Last Admin: 04/26/17 21:54 Dose: 40 mg Senna (Senna -) 1 tab PO HS [facility] Last Admin: 04/26/17 21:55 Dose: 1 tab *Physical Exam Vital Signs Temperature 98.7 F 04/27/17 06:00 Pulse Rate 62 04/27/17 06:00 Respiratory Rate 20 04/27/17 06:00 Blood Pressure 101/68 04/27/17 06:00 O2 Sat by Pulse Oximetry (%) 96 04/26/17 21:00 - Physical Exam General Appearance: Yes: Disheveled, Other (smells of urine, red carpet threads scattered in hair, unkempt, initially having an apparent diffuse tonic-clonic seizure which lasts about 30 seconds and resolves without intervention, initially not wearing C-collar) HEENT: positive: Hearing Grossly Normal, Neck: positive: Trachea midline, Supple. negative: Tender, Rigid Respiratory/Chest: positive: Lungs Clear, Normal Breath Sounds. negative: Respiratory Distress, Crackles, Rhonchi, Stridor, Wheezing Cardiovascular: positive: Regular Rhythm, Regular Rate. negative: Murmur Gastrointestinal/Abdominal: positive: Normal Bowel Sounds, Soft. negative: Tender, Organomegaly, Pulsatile Mass, Guarding Musculoskeletal: positive: Normal Inspection. negative: Decreased Range of Motion, Vertebral Tenderness Extremity: positive: Normal Capillary Refill, Normal Inspection, Normal Range of Motion. negative: Tender, Cyanosis Integumentary: positive: Normal Color, Dry, Warm. negative: Erythema, Rash, Bruising Neurologic: Limited exam, not participating in full confrontation, move LUE slight more than right, ?3/5 on R, ? 2/5 on L, tactile stimulation intact but limited on R, gait deferred CBCD WBC 7.6 K/mm3 (4.0-10.0) 04/26/17 05:28 RBC 4.10 M/mm3 (3.60-5.2) 04/26/17 05:28 Hgb 12.7 GM/dL (10.7-15.3) 04/26/17 05:28 Hct 37.0 % (32.4-45.2) 04/26/17 05:28 MCV 90.4 fl (80-96) 04/26/17 05:28 MCHC 34.4 g/dl (32.0-36.0) 04/26/17 05:28 RDW 16.7 % (11.6-15.6) H 04/26/17 05:28 Plt Count 180 K/MM3 (134-434) 04/26/17 05:28 MPV 8.6 fl (7.5-11.1) 04/26/17 05:28 CMP Sodium 137 mmol/L (136-145) 04/26/17 05:28 Potassium 4.1 mmol/L (3.5-5.1) 04/26/17 05:28 Chloride 101 mmol/L (98-107) 04/26/17 05:28 Carbon Dioxide 27 mmol/L (21-32) 04/26/17 05:28 Anion Gap 9 (8-16) 04/26/17 05:28 BUN 8 mg/dL (7-18) 04/26/17 05:28 Creatinine 0.5 mg/dL (0.55-1.02) L 04/26/17 05:28 Creat Clearance w eGFR > 60 (>60) 04/23/17 06:00 Calcium 9.2 mg/dL (8.5-10.1) 04/26/17 05:28 Total Bilirubin 0.9 mg/dL (0.2-1.0) 04/23/17 06:00 AST 57 U/L (15-37) H 04/23/17 06:00 ALT 37 U/L (12-78) 04/23/17 06:00 Alkaline Phosphatase 50 U/L (45-117) 04/23/17 06:00 Total Protein 5.7 g/dl (6.4-8.2) L 04/23/17 06:00 Albumin 2.8 g/dl (3.4-5.0) L 04/25/17 08:30 - RADIOLOGY MRI brain reviewed CT head as above CD, echo reviewed Medical Decision Making female of unknown age and name with unknown medical history who presented BIBA after her called 911 because she had fallen on the floor and was not able to pick herself up after being on the floor for reportedly 24 hours. EMS states that the patient was laying on the carpeted floor on their arrival on scene at her home. The explained that he found her on the floor and she said she felt fine, so he did not call 911 until he saw her in the same place on the floor therafter. The patient was minimally responsive in the ED but able to state she was having left-sided weakness for the past three days which is what caused her to fall but thought it would pass and did not come to the hospital. There was a question of generalized seizure and positive troponins. CT head completed and did not show acute changes. She was admitted and sent to ICU for close management. She is able to tell me her name is Joe Isidro and name of president but did not know exact location or date. Able to tell birthdate. Trying to complete MRI brain and would need to fill out questionaire. -Patient started on Keppra for seizures, increased to 1000mg twice daily, -Vimpat 100mg twice daily and Depakote 1000mg twice daily can be continued, - Klonipin 0.5mg Q12 hrs for tremor -Continue ASA -Seizures stabilized -CD, echo reviewed -BPcontrol, goal < 160/90 for now, < 140/90 as outpatient -PT/OT as tolerated -DVT ppx -IV hydration for rhabdo, monitor CPK -Will need rehab placement
[2017-04-27] MEDS: DIVALPROEX SODIUM 500 MG TABLET E.C. PO SCH ×2 (09:58→22:03)
[2017-04-27] MEDS: ASPIRIN COATED 81 MG TABLET.EC PO SCH (10:04)
--- NOTE | 2017-04-27 11:31 | PN ---
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 Producing mainly single words and some phrases, wih moderate cues required. Twitch of sternocleidomastoid muscle repeatedy. Head rotated fully to right, but able to turn to right with manual assistance. Crosses midline more easily wih eyes. Tolerating diet. Noted to cough on saliva, but tolerating diet. Swallow seems brisk but delayed in onset. Selected Entries 04/26/17 04/26/17 04/26/17 02:00 05:47 06:59 Breakfast Lunch Supper Temperature 98.0 F 97.7 F 98.9 F 04/26/17 04/26/17 04/26/17 09:53 10:00 14:39 Breakfast 50% Lunch 25% Supper Temperature 99.8 F H 98.5 F 04/26/17 04/26/17 04/27/17 18:40 22:00 02:00 Breakfast Lunch Supper 25% Temperature 97.4 F L 98.5 F 98.7 F 04/27/17 04/27/17 06:00 10:29 Breakfast 25% Lunch Supper Temperature 98.7 F Consider trial of diet upgrade to dys ground with 1-2 soft items added per tray, thin liquid, Ensure Enlive bid Monitor PO tolerance/sufficient po accepance.
[2017-04-27] MEDS ORDERED: PT OWN MED DRAWER 7, Y5N ONE ×2 (14:36→22:01)
[2017-04-27] MEDS: METOPROLOL SUCCINATE 25 MG TAB.SR.24H (FP) PO SCH (14:41)
--- NOTE | 2017-04-27 17:38 | PN ---
Teaching Attending Note Name of Resident: Don Lopez ATTENDING PHYSICIAN STATEMENT I saw and evaluated the patient. I reviewed the resident's note and discussed the case with the resident. I agree with the resident's findings and plan as documented. SUBJECTIVE: Patient is comfortable lying in bed. She continues to refuse rehab and says she will be ok at home. OBJECTIVE: Vital Signs Period Temp Pulse Resp BP Sys/Levine Pulse Ox Last 24 Hr 97.4 F-99.0 F 62-81 18-20 94-120/52-68 95-96 HEART: S1S2, RRR LUNGS: Clear ABDOMEN: Soft, non-tender, non-distended, normal BS EXTREMITIES: No edema NEUROLOGICAL: Mild slurred speech, RUE/RLE strength 1/5 Current Medications Generic Name Dose Route Start Last Admin Trade Name Freq PRN Reason Stop Dose Admin Acetaminophen 650 mg 04/26/17 16:02 Tylenol - PO Q6H PRN FEVER OR PAIN Aspirin 81 mg 04/22/17 10:00 04/27/17 10:04 Ecotrin - PO 81 mg DAILY [facility] Administration Clonazepam 0.5 mg 04/26/17 22:00 04/27/17 09:53 Klonopin - PO 0.5 mg BID [facility] Administration Divalproex Sodium 1,000 mg 04/26/17 22:00 04/27/17 09:58 Depakote - PO 1,000 mg BID [facility] Administration Lacosamide 100 mg 04/26/17 12:00 04/27/17 09:53 Vimpat - PO 100 mg BID [facility] Administration Levetiracetam 1,000 mg 04/26/17 11:00 04/27/17 09:53 Keppra - PO 1,000 mg BID [facility] Administration Metoprolol Succinate 25 mg 04/22/17 10:00 04/27/17 14:41 Toprol Xl - PO 25 mg DAILY [facility] Administration Rosuvastatin Calcium 40 mg 04/22/17 22:00 04/26/17 21:54 Crestor - PO 40 mg HS [facility] Administration Senna 1 tab 04/26/17 22:00 04/26/17 21:55 Senna - PO 1 tab HS [facility] Administration ASSESSMENT AND PLAN: This is a 66 year old woman with a history of alcohol abuse who presented to the ER after she was found on the floor by her . 1. 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 Tonic-clonic seizures - Continue Keppra, Depakote, Vimpat, Klonopin 3. Acute inferior wall STEMI - Echo shows normal LV, normal RV - Continue medical management - Continue aspirin, Toprol XL, Crestor 4. Lactic acidemia secondary to seizure - Resolved 5. Acute kidney injury likely secondary to dehydration - Resolved 6. Hypokalemia - Improved 7. Hypophosphatemia - Improved 8. Hypomagnesemia - Improved 9. Alcohol abuse - No signs of withdrawal 10. Rhabdomyolsis 11. Polycythemia secondary to dehydration - Resolved
[2017-04-27] MEDS: SENNOSIDES 8.6MG TABLET (FP) PO SCH (22:03)
[2017-04-27] MEDS: ROSUVASTATIN CA 20 MG TABLET (FP) PO SCH (22:04)
--- NOTE | 2017-04-28 06:11 | PN ---
Physical Exam: SUBJECTIVE: Patient seen and examined at bedside. No new complaints. no events overnight. OBJECTIVE: Vital Signs Period Temp Pulse Resp BP Sys/Levine Pulse Ox Last 24 Hr 98.5 F-99.0 F 70-81 18-20 97-114/52-69 95-98 GENERAL: The patient is awake, alert, and fully oriented, in no acute distress. HEAD: Normal with no signs of trauma. EYES: extraocular movements intact, sclera anicteric, conjunctiva clear. No ptosis. NECK: Trachea midline, full range of motion, supple. LUNGS: Breath sounds equal, clear to auscultation bilaterally, no wheezes, no crackles, no accessory muscle use. HEART: Regular rate and rhythm, S1, S2 without murmur, rub or gallop. ABDOMEN: Soft, nontender, nondistended, normoactive bowel sounds, no guarding, no rebound, no hepatosplenomegaly, no masses. EXTREMITIES: 2+ pulses, warm, well-perfused, no edema. NEUROLOGICAL: Cranial nerves II through X grossly intact. Normal speech, gait not observed. 2/5 strength on the right, 5/5 strength on the left. PSYCH: Normal mood, normal affect. SKIN: Warm, dry, normal turgor, no rashes or lesions noted Active Medications Generic Name Dose Route Start Last Admin Trade Name Freq PRN Reason Stop Dose Admin Acetaminophen 650 mg 04/26/17 16:02 Tylenol - PO Q6H PRN FEVER OR PAIN Aspirin 81 mg 04/22/17 10:00 04/27/17 10:04 Ecotrin - PO 81 mg DAILY [facility] Administration Clonazepam 0.5 mg 04/26/17 22:00 04/27/17 22:04 Klonopin - PO 0.5 mg BID [facility] Administration Divalproex Sodium 1,000 mg 04/26/17 22:00 04/27/17 22:03 Depakote - PO 1,000 mg BID [facility] Administration Lacosamide 100 mg 04/26/17 12:00 04/27/17 22:03 Vimpat - PO 100 mg BID [facility] Administration Levetiracetam 1,000 mg 04/26/17 11:00 04/27/17 22:03 Keppra - PO 1,000 mg BID [facility] Administration Metoprolol Succinate 25 mg 04/22/17 10:00 04/27/17 14:41 Toprol Xl - PO 25 mg DAILY [facility] Administration Rosuvastatin Calcium 40 mg 04/22/17 22:00 04/27/17 22:04 Crestor - PO 40 mg HS [facility] Administration Senna 1 tab 04/26/17 22:00 04/27/17 22:03 Senna - PO 1 tab HS [facility] Administration ASSESSMENT/PLAN: 66 yo f w/PMH ETOH abuse w/ rest of PMH unknown presents s/p fall for 24 hours admitted for CVA with myotonic movments and residual right sided weakness. 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, parietal and thalamic CVA -RPT MRA shows possible occlusion or superior M2 branch of Left MCA -MRI shows infarcts in left temporal and parietal lobes as well as in left thalmus -patient continues to have tonic movements of right limbs -Will follow neurology reccs to attempt control of tonic movements: -Keppra 1g PO BID -Depakote 1g PO BID -lacosamide 100mg PO BID -klonopin .5 BID PO added #Troponinemia 2/2 STEMI -Troponin peak at 2.7 documented -No anginal symptoms currently -no ischemic workup indicated at this time as per cardio -ASA 81 -Toprolol XL 25mg -anticoagulation contraindicated in the setting of acute stroke #New onset fever to 101, possibly 2/2 UTI- resolved -Patient afebrile for >24h -repeat UA Not indiciative of UTI -repeat ucx growing E. Coli -repeat bcx growing coagulase negative staph #Lactic Acidosis- resolved -Lactic acid 1.1 now #Elevated CK 2/2 acute [place] vs seizure activity- resolved -ck trending down #NICOLÁS-resolved -cr. .9 now #FEN -no fluids indicated at this time -monitor lytes -Dysphagia ground; soft items on tray #Propylaxsis -SCDs, heparin c/i at this time in the setting of CVA -GI- not indicated at this time -OOB to chair #Dispo -patient admitted for workup and treatment of acute stroke. -patient is refusing RAHUL. Multiple attempts to reach the family have been made by multiple health care teams. -Patient is not able to carry out ADLs on her own and requires assistance. Without contact with family members, she will be unable to be discharged home. -Psych has deemed that the patient does not have the capacity to make her own decisions. We must defer to an advanced directive or patient's to make decisions. -Case management to contact adult protective services as patient seems to have been abandoned by Problem List - Problems (1) CVA (cerebral vascular accident) Code(s): I63.9 - CEREBRAL INFARCTION, UNSPECIFIED Qualifiers: CVA mechanism: unspecified Qualified Code(s): I63.9 - Cerebral infarction, unspecified (2) Seizure Code(s): R56.9 - UNSPECIFIED CONVULSIONS Visit type - Emergency Visit Emergency Visit: Yes ED Registration Date: 04/21/17 Care time: The patient presented to the Emergency Department on the above date and was hospitalized for further evaluation of their emergent condition. - New Patient This patient is new to me today: No - Critical Care Critical Care patient: No
--- NOTE | 2017-04-28 09:26 | PN ---
Progress Note (short form) - Note Progress Note: Neurology This is a female of unknown age and name with unknown medical history who presented BIBA after her called 911 because she had fallen on the floor and was not able to pick herself up after being on the floor for reportedly 24 hours. EMS states that the patient was laying on the carpeted floor on their arrival on scene at her home. The explained that he found her on the floor and she said she felt fine, so he did not call 911 until he saw her in the same place on the floor therafter. The patient was minimally responsive in the ED but able to state she was having left-sided weakness for the past three days which is what caused her to fall but thought it would pass and did not come to the hospital. She was out of TPA window. MRI completed and showed subacute infarcts L temporal/parietal, L thalamic and she does have right sided deficits. There was some facial twitching and patient put on Keppra, increased to 1000mg twice a day over the weekend. Vimpat also started 100mg twice daily, Depakote also started over weekend. Patient on ASA 81mg. CD without hemodynamically significant stenosis, Echo reviewed and LV function normal. AED' s converted to PO. Possibly for rehab placement. Klonipin for low amplitude tremor added, not having seizure events at this time. Neurologically stable on tele monitoring. Active Medications Acetaminophen (Tylenol -) 650 mg PO Q6H PRN PRN Reason: FEVER OR PAIN Aspirin (Ecotrin -) 81 mg PO DAILY [facility] Last Admin: 04/27/17 10:04 Dose: 81 mg Clonazepam (Klonopin -) 0.5 mg PO BID [facility] Last Admin: 04/27/17 22:04 Dose: 0.5 mg Divalproex Sodium (Depakote -) 1,000 mg PO BID [facility] Last Admin: 04/27/17 22:03 Dose: 1,000 mg Lacosamide (Vimpat -) 100 mg PO BID [facility] Last Admin: 04/27/17 22:03 Dose: 100 mg Levetiracetam (Keppra -) 1,000 mg PO BID [facility] Last Admin: 04/27/17 22:03 Dose: 1,000 mg Metoprolol Succinate (Toprol Xl -) 25 mg PO DAILY [facility] Last Admin: 04/27/17 14:41 Dose: 25 mg Rosuvastatin Calcium (Crestor -) 40 mg PO [facility] Last Admin: 04/27/17 22:04 Dose: 40 mg Senna (Senna -) 1 tab PO [facility] Last Admin: 04/27/17 22:03 Dose: 1 tab *Physical Exam Vital Signs Temperature 98.1 F 04/28/17 06:00 Pulse Rate 74 04/28/17 06:00 Respiratory Rate 20 04/28/17 06:00 Blood Pressure 109/65 04/28/17 06:00 O2 Sat by Pulse Oximetry (%) 98 04/27/17 21:00 - Physical Exam General Appearance: Yes: Disheveled, Other (smells of urine, red carpet threads scattered in hair, unkempt, initially having an apparent diffuse tonic-clonic seizure which lasts about 30 seconds and resolves without intervention, initially not wearing C-collar) HEENT: positive: Hearing Grossly Normal, Neck: positive: Trachea midline, Supple. negative: Tender, Rigid Respiratory/Chest: positive: Lungs Clear, Normal Breath Sounds. negative: Respiratory Distress, Crackles, Rhonchi, Stridor, Wheezing Cardiovascular: positive: Regular Rhythm, Regular Rate. negative: Murmur Gastrointestinal/Abdominal: positive: Normal Bowel Sounds, Soft. negative: Tender, Organomegaly, Pulsatile Mass, Guarding Musculoskeletal: positive: Normal Inspection. negative: Decreased Range of Motion, Vertebral Tenderness Extremity: positive: Normal Capillary Refill, Normal Inspection, Normal Range of Motion. negative: Tender, Cyanosis Integumentary: positive: Normal Color, Dry, Warm. negative: Erythema, Rash, Bruising Neurologic: Limited exam, not participating in full confrontation, move LUE slight more than right, ?3/5 on R, ? 2/5 on L, tactile stimulation intact but limited on R, gait deferred CBCD WBC 7.6 K/mm3 (4.0-10.0) 04/26/17 05:28 RBC 4.10 M/mm3 (3.60-5.2) 04/26/17 05:28 Hgb 12.7 GM/dL (10.7-15.3) 04/26/17 05:28 Hct 37.0 % (32.4-45.2) 04/26/17 05:28 MCV 90.4 fl (80-96) 04/26/17 05:28 MCHC 34.4 g/dl (32.0-36.0) 04/26/17 05:28 RDW 16.7 % (11.6-15.6) H 04/26/17 05:28 Plt Count 180 K/MM3 (134-434) 04/26/17 05:28 MPV 8.6 fl (7.5-11.1) 04/26/17 05:28 CMP Sodium 137 mmol/L (136-145) 04/26/17 05:28 Potassium 4.1 mmol/L (3.5-5.1) 04/26/17 05:28 Chloride 101 mmol/L (98-107) 04/26/17 05:28 Carbon Dioxide 27 mmol/L (21-32) 04/26/17 05:28 Anion Gap 9 (8-16) 04/26/17 05:28 BUN 8 mg/dL (7-18) 04/26/17 05:28 Creatinine 0.5 mg/dL (0.55-1.02) L 04/26/17 05:28 Creat Clearance w eGFR > 60 (>60) 04/23/17 06:00 Calcium 9.2 mg/dL (8.5-10.1) 04/26/17 05:28 Total Bilirubin 0.9 mg/dL (0.2-1.0) 04/23/17 06:00 AST 57 U/L (15-37) H 04/23/17 06:00 ALT 37 U/L (12-78) 04/23/17 06:00 Alkaline Phosphatase 50 U/L (45-117) 04/23/17 06:00 Total Protein 5.7 g/dl (6.4-8.2) L 04/23/17 06:00 Albumin 2.8 g/dl (3.4-5.0) L 04/25/17 08:30 - RADIOLOGY MRI brain reviewed CT head as above CD, echo reviewed Medical Decision Making female of unknown age and name with unknown medical history who presented BIBA after her called 911 because she had fallen on the floor and was not able to pick herself up after being on the floor for reportedly 24 hours. EMS states that the patient was laying on the carpeted floor on their arrival on scene at her home. The explained that he found her on the floor and she said she felt fine, so he did not call 911 until he saw her in the same place on the floor therafter. The patient was minimally responsive in the ED but able to state she was having left-sided weakness for the past three days which is what caused her to fall but thought it would pass and did not come to the hospital. There was a question of generalized seizure and positive troponins. CT head completed and did not show acute changes. She was admitted and sent to ICU for close management. She is able to tell me her name is Joe Isidro and name of president but did not know exact location or date. Able to tell birthdate. Trying to complete MRI brain and would need to fill out questionaire. -Patient started on Keppra for seizures, getting 1000mg twice daily, -Vimpat 100mg twice daily and Depakote 1000mg twice daily can be continued, - Klonipin 0.5mg Q12 hrs for tremor -Continue ASA -Seizures stabilized -BP control, goal < 160/90 for now, < 140/90 as outpatient -PT/OT as tolerated -DVT ppx -Will need rehab placement
[2017-04-28] MEDS: LACOSAMIDE 50 MG TABLET PO SCH ×2 (10:10→21:36)
[2017-04-28] MEDS: clonazePAM 0.5 MG TABLET PO SCH ×2 (10:12→21:36)
[2017-04-28] MEDS: METOPROLOL SUCCINATE 25 MG TAB.SR.24H (FP) PO SCH ×2 (10:13→10:16)
[2017-04-28] MEDS: ASPIRIN COATED 81 MG TABLET.EC PO SCH (10:13)
[2017-04-28] MEDS: levETIRAcetam 500 MG TABLET (FP) PO SCH ×2 (10:13→21:35)
[2017-04-28] MEDS: DIVALPROEX SODIUM 500 MG TABLET E.C. PO SCH ×2 (10:14→21:35)
--- NOTE | 2017-04-28 12:07 | PN ---
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 Producing mainly single words and some phrases, wih moderate cues required. Swallow seems brisk but delayed in onset. Selected Entries 04/26/17 04/26/17 04/26/17 02:00 05:47 06:59 Breakfast Lunch Supper Temperature 98.0 F 97.7 F 98.9 F 04/26/17 04/26/17 04/26/17 09:53 10:00 14:39 Breakfast 50% Lunch 25% Supper Temperature 99.8 F H 98.5 F 04/26/17 04/26/17 04/27/17 18:40 22:00 02:00 Breakfast Lunch Supper 25% Temperature 97.4 F L 98.5 F 98.7 F 04/27/17 04/27/17 06:00 10:29 Breakfast 25% Lunch Supper Temperature 98.7 F Selected Entries 04/27/17 04/27/17 04/27/17 02:00 06:00 10:00 Breakfast 25% Supper Temperature 98.7 F 98.7 F 98.5 F 04/27/17 04/27/17 04/27/17 10:29 14:00 18:00 Breakfast 25% Supper 50% Temperature 99.0 F 98.6 F 04/27/17 04/28/17 04/28/17 22:00 02:00 06:00 Breakfast Supper Temperature 98.5 F 98.8 F 98.1 F Laboratory Tests 04/26/17 05:28 WBC 7.6 Diet upgraded to dys ground with 1-2 soft items added per tray,thin liquid, Ensure Enlive bid Tolerating diet Improved PO acceptance noted. Pt would benefit from contoinued Speech therapy upon d/c.
--- NOTE | 2017-04-28 16:27 | PN ---
Teaching Attending Note Name of Resident: Don Lopez ATTENDING PHYSICIAN STATEMENT I saw and evaluated the patient. I reviewed the resident's note and discussed the case with the resident. I agree with the resident's findings and plan as documented. SUBJECTIVE: Patient has no complaints. OBJECTIVE: Vital Signs Period Temp Pulse Resp BP Sys/Levine Pulse Ox Last 24 Hr 98.1 F-98.8 F 70-76 18-20 100-114/62-69 98 HEART: S1S2, RRR LUNGS: Clear ABDOMEN: Soft, non-tender, non-distended, normal BS EXTREMITIES: No edema NEUROLOGICAL: Mild slurred speech, RUE/RLE strength 1/5 Current Medications Generic Name Dose Route Start Last Admin Trade Name Freq PRN Reason Stop Dose Admin Acetaminophen 650 mg 04/26/17 16:02 Tylenol - PO Q6H PRN FEVER OR PAIN Aspirin 81 mg 04/22/17 10:00 04/28/17 10:13 Ecotrin - PO 81 mg DAILY [facility] Administration Clonazepam 0.5 mg 04/26/17 22:00 04/28/17 10:12 Klonopin - PO 0.5 mg BID [facility] Administration Divalproex Sodium 1,000 mg 04/26/17 22:00 04/28/17 10:14 Depakote - PO 1,000 mg BID [facility] Administration Lacosamide 100 mg 04/26/17 12:00 04/28/17 10:10 Vimpat - PO 100 mg BID [facility] Administration Levetiracetam 1,000 mg 04/26/17 11:00 04/28/17 10:13 Keppra - PO 1,000 mg BID [facility] Administration Metoprolol Succinate 25 mg 04/22/17 10:00 04/28/17 10:16 Toprol Xl - PO Not Given DAILY [facility] Rosuvastatin Calcium 40 mg 04/22/17 22:00 04/27/17 22:04 Crestor - PO 40 mg HS [facility] Administration Senna 1 tab 04/26/17 22:00 04/27/17 22:03 Senna - PO 1 tab HS [facility] Administration ASSESSMENT AND PLAN: This is a 66 year old woman with a history of alcohol abuse who presented to the ER after she was found on the floor by her . 1. 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 Tonic-clonic seizures - Continue Keppra, Depakote, Vimpat, Klonopin 3. Acute inferior wall STEMI - Echo shows normal LV, normal RV - Continue medical management - Continue aspirin, Toprol XL, Crestor 4. Lactic acidemia secondary to seizure - Resolved 5. Acute kidney injury likely secondary to dehydration - Resolved 6. Hypokalemia - Improved 7. Hypophosphatemia - Improved 8. Hypomagnesemia - Improved 9. Alcohol abuse - No signs of withdrawal 10. Rhabdomyolsis 11. Polycythemia secondary to dehydration - Resolved
--- NOTE | 2017-04-28 16:29 | PN ---
Progress Note (short form) - Note Progress Note: Overall appears better. No acute events overnight. No CP or SOB. Intake & Output 04/25/17 04/26/17 04/27/17 04/28/17 23:59 23:59 23:59 23:59 Intake Total 400 1850 740 Output Total 350 900 Balance 50 950 740 Last Vital Signs Temp Pulse Resp BP Pulse Ox 98.3 F 74 20 110/65 98 04/28/17 15:55 04/28/17 15:55 04/28/17 06:00 04/28/17 15:55 04/27/17 21:00 Active Medications Acetaminophen (Tylenol -) 650 mg PO Q6H PRN PRN Reason: FEVER OR PAIN Aspirin (Ecotrin -) 81 mg PO DAILY [facility] Last Admin: 04/28/17 10:13 Dose: 81 mg Clonazepam (Klonopin -) 0.5 mg PO BID [facility] Last Admin: 04/28/17 10:12 Dose: 0.5 mg Divalproex Sodium (Depakote -) 1,000 mg PO BID [facility] Last Admin: 04/28/17 10:14 Dose: 1,000 mg Lacosamide (Vimpat -) 100 mg PO BID [facility] Last Admin: 04/28/17 10:10 Dose: 100 mg Levetiracetam (Keppra -) 1,000 mg PO BID [facility] Last Admin: 04/28/17 10:13 Dose: 1,000 mg Metoprolol Succinate (Toprol Xl -) 25 mg PO DAILY [facility] Last Admin: 04/28/17 10:16 Dose: Not Given Rosuvastatin Calcium (Crestor -) 40 mg PO [facility] Last Admin: 04/27/17 22:04 Dose: 40 mg Senna (Senna -) 1 tab PO [facility] Last Admin: 04/27/17 22:03 Dose: 1 tab Constitutional: Yes: Awake and alert, NAD Eyes: Yes: Resolving Left conjunctival hemorrhage HENT: Yes: Atraumatic, Normocephalic Neck: Yes: Supple, Trachea Midline Cardiovascular: Yes: Regular Rate and Rhythm, S1, S2 Respiratory: Yes: CTA Bilaterally Gastrointestinal: Yes: WNL, Soft, Hyperactive Bowel Sounds Renal/: Yes: Handy Present Extremities: Yes: WNL Neurological: Yes: Awake and alert, facial Droop Labs: Problem List - Problems (1) NICOLÁS (acute kidney injury) Code(s): N17.9 - ACUTE KIDNEY FAILURE, UNSPECIFIED (2) CVA (cerebral vascular accident) Code(s): I63.9 - CEREBRAL INFARCTION, UNSPECIFIED Qualifiers: CVA mechanism: unspecified Qualified Code(s): I63.9 - Cerebral infarction, unspecified (3) Lactic acidosis Code(s): E87.2 - ACIDOSIS (4) Seizure Code(s): R56.9 - UNSPECIFIED CONVULSIONS Assessment/Plan Aspiration precautions O2 as needed BP monitoring AEDs per Neuro Beta iron D/C planning Dr Early
--- NOTE | 2017-04-28 19:20 | PN ---
Progress Note (short form) - Note Progress Note: Patient was seen and examined Nursing notes reviewed Medical documentation reviewed. Patient suffered a CVA with right hemiparesis Patient is somnolent, responds with short answers only- one word, two words, Responds to her name only Not oriented to time but she says, " Im in the hospital Patient states "Ask my " when the topic of rehab placement was broached. She seems hesitant to answer questions and make decision Cognitively impaired. Patient with impaired consciousness. Rec Patient has limited/impaired capacity to make decisions on her behalf She was not able to verbalize the nature and consequences of rehab vs no rehab. Defer to advance directive or to make decisions for her with regard to this particular situation.
[2017-04-28] MEDS: ROSUVASTATIN CA 20 MG TABLET (FP) PO SCH (21:34)
[2017-04-28] MEDS: SENNOSIDES 8.6MG TABLET (FP) PO SCH (21:34)
--- NOTE | 2017-04-29 06:23 | PN ---
Physical Exam: SUBJECTIVE: Patient seen and examined at bedside. No new complaints. Patient states she is fine. OBJECTIVE: Vital Signs Period Temp Pulse Resp BP Sys/Levine Pulse Ox Last 24 Hr 98.1 F-98.7 F 74-78 18-20 97-121/61-80 98-99 GENERAL: The patient is awake, alert, and fully oriented, in no acute distress. HEAD: Normal with no signs of trauma. EYES: extraocular movements intact, sclera anicteric, conjunctiva clear. No ptosis. NECK: Trachea midline, full range of motion, supple. LUNGS: Breath sounds equal, clear to auscultation bilaterally, no wheezes, no crackles, no accessory muscle use. HEART: Regular rate and rhythm, S1, S2 without murmur, rub or gallop. ABDOMEN: Soft, nontender, nondistended, normoactive bowel sounds, no guarding, no rebound, no hepatosplenomegaly, no masses. EXTREMITIES: 2+ pulses, warm, well-perfused, no edema. NEUROLOGICAL: Cranial nerves II through X grossly intact. Normal speech, gait not observed. 2/5 strength on the right, 5/5 strength on the left. PSYCH: Normal mood, normal affect. SKIN: Warm, dry, normal turgor, no rashes or lesions noted Active Medications Generic Name Dose Route Start Last Admin Trade Name Freq PRN Reason Stop Dose Admin Acetaminophen 650 mg 04/26/17 16:02 Tylenol - PO Q6H PRN FEVER OR PAIN Aspirin 81 mg 04/22/17 10:00 04/28/17 10:13 Ecotrin - PO 81 mg DAILY [facility] Administration Clonazepam 0.5 mg 04/26/17 22:00 04/28/17 21:36 Klonopin - PO 0.5 mg BID [facility] Administration Divalproex Sodium 1,000 mg 04/26/17 22:00 04/28/17 21:35 Depakote - PO 1,000 mg BID [facility] Administration Lacosamide 100 mg 04/26/17 12:00 04/28/17 21:36 Vimpat - PO 100 mg BID [facility] Administration Levetiracetam 1,000 mg 04/26/17 11:00 04/28/17 21:35 Keppra - PO 1,000 mg BID [facility] Administration Metoprolol Succinate 25 mg 04/22/17 10:00 04/28/17 10:16 Toprol Xl - PO Not Given DAILY [facility] Rosuvastatin Calcium 40 mg 04/22/17 22:00 04/28/17 21:34 Crestor - PO 40 mg HS [facility] Administration Senna 1 tab 04/26/17 22:00 04/28/17 21:34 Senna - PO 1 tab HS [facility] Administration ASSESSMENT/PLAN: 66 yo f w/PMH ETOH abuse w/ rest of PMH unknown presents s/p fall for 24 hours admitted for CVA with myotonic movments and residual right sided weakness. 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, parietal and thalamic CVA -RPT MRA shows possible occlusion or superior M2 branch of Left MCA -MRI shows infarcts in left temporal and parietal lobes as well as in left thalmus -patient continues to have tonic movements of right limbs -Will follow neurology reccs to attempt control of tonic movements: -Keppra 1g PO BID -Depakote 1g PO BID -lacosamide 100mg PO BID -klonopin .5 BID PO added #Troponinemia 2/2 STEMI -Troponin peak at 2.7 documented -No anginal symptoms currently -no ischemic workup indicated at this time as per cardio -ASA 81 -Toprolol XL 25mg -anticoagulation contraindicated in the setting of acute stroke #New onset fever to 101, possibly 2/2 UTI- resolved -Patient afebrile for >24h -repeat UA Not indiciative of UTI -repeat ucx growing E. Coli -repeat bcx growing coagulase negative staph #Lactic Acidosis- resolved -Lactic acid 1.1 now #Elevated CK 2/2 acute RI vs seizure activity- resolved -ck trending down #NICOLÁS-resolved -cr. .9 now #FEN -no fluids indicated at this time -monitor lytes -Dysphagia ground; soft items on tray #Propylaxsis -SCDs, heparin c/i at this time in the setting of CVA -GI- not indicated at this time -OOB to chair #Dispo -patient admitted for workup and treatment of acute stroke. -patient is refusing RAHUL. Multiple attempts to reach the family have been made by multiple health care teams. -Patient is not able to carry out ADLs on her own and requires assistance. Without contact with family members, she will be unable to be discharged home. -Psych has deemed that the patient does not have the capacity to make her own decisions. We must defer to an advanced directive or patient's to make decisions. -Case management to contact adult protective services as patient seems to have been abandoned by Problem List - Problems (1) CVA (cerebral vascular accident) Code(s): I63.9 - CEREBRAL INFARCTION, UNSPECIFIED Qualifiers: CVA mechanism: unspecified Qualified Code(s): I63.9 - Cerebral infarction, unspecified (2) Seizure Code(s): R56.9 - UNSPECIFIED CONVULSIONS Visit type - Emergency Visit Emergency Visit: Yes ED Registration Date: 04/21/17 Care time: The patient presented to the Emergency Department on the above date and was hospitalized for further evaluation of their emergent condition. - New Patient This patient is new to me today: No - Critical Care Critical Care patient: No
[2017-04-29] MEDS ORDERED: PT OWN MED DRAWER 7, Y5N ONE ×2 (08:04→21:08)
[2017-04-29 08:29] LABS: ANION GAP 8 (8-16); CALCIUM 9.3 mg/dL (8.5-10.1); CO2 29 mmol/L (21-32); GLUCOSE,RANDOM 83 mg/dL (74-106); MAGNESIUM 1.7 mg/dL (1.8-2.4)
[2017-04-29 08:33] LABS: CPK 111 IU/L (26-192); CREATININE 0.7 mg/dL (0.55-1.02); PHOSPHOROUS 4.2 mg/dL (2.5-4.9)
[2017-04-29] MEDS: levETIRAcetam 500 MG TABLET (FP) PO SCH ×2 (09:41→21:32)
[2017-04-29] MEDS: DIVALPROEX SODIUM 500 MG TABLET E.C. PO SCH ×2 (09:41→21:34)
[2017-04-29] MEDS: LACOSAMIDE 50 MG TABLET PO SCH ×2 (09:41→21:32)
[2017-04-29] MEDS: ASPIRIN COATED 81 MG TABLET.EC PO SCH (09:42)
[2017-04-29] MEDS: clonazePAM 0.5 MG TABLET PO SCH ×2 (09:42→21:32)
[2017-04-29] MEDS: METOPROLOL SUCCINATE 25 MG TAB.SR.24H (FP) PO SCH (09:43)
--- NOTE | 2017-04-29 09:57 | PN ---
Progress Note (short form) - Note Progress Note: Neurology This is a female of unknown age and name with unknown medical history who presented BIBA after her called 911 because she had fallen on the floor and was not able to pick herself up after being on the floor for reportedly 24 hours. EMS states that the patient was laying on the carpeted floor on their arrival on scene at her home. The explained that he found her on the floor and she said she felt fine, so he did not call 911 until he saw her in the same place on the floor therafter. The patient was minimally responsive in the ED but able to state she was having left-sided weakness for the past three days which is what caused her to fall but thought it would pass and did not come to the hospital. She was out of TPA window. MRI completed and showed subacute infarcts L temporal/parietal, L thalamic and she does have right sided deficits. There was some facial twitching and patient put on Keppra, increased to 1000mg twice a day over the weekend. Vimpat also started 100mg twice daily, Depakote also started with good control. Patient on ASA 81mg. CD without hemodynamically significant stenosis, Echo reviewed and LV function normal. AED' s converted to PO. Possibly for rehab placement. Klonipin for low amplitude tremor added, not having seizure events at this time. Awaiting placement, no new events overnight. Active Medications Acetaminophen (Tylenol -) 650 mg PO Q6H PRN PRN Reason: FEVER OR PAIN Aspirin (Ecotrin -) 81 mg PO DAILY [facility] Last Admin: 04/29/17 09:42 Dose: 81 mg Clonazepam (Klonopin -) 0.5 mg PO BID [facility] Last Admin: 04/29/17 09:42 Dose: 0.5 mg Divalproex Sodium (Depakote -) 1,000 mg PO BID [facility] Last Admin: 04/29/17 09:41 Dose: 1,000 mg Lacosamide (Vimpat -) 100 mg PO BID [facility] Last Admin: 04/29/17 09:41 Dose: 100 mg Levetiracetam (Keppra -) 1,000 mg PO BID [facility] Last Admin: 04/29/17 09:41 Dose: 1,000 mg Metoprolol Succinate (Toprol Xl -) 25 mg PO DAILY [facility] Last Admin: 09/29/17 09:43 Dose: Not Given Rosuvastatin Calcium (Crestor -) 40 mg PO HS [facility] Last Admin: 04/28/17 21:34 Dose: 40 mg Senna (Senna -) 1 tab PO HS [facility] Last Admin: 04/28/17 21:34 Dose: 1 tab *Physical Exam Vital Signs Period Temp Pulse Resp BP Sys/Levine Pulse Ox Last 24 Hr 98.1 F-98.7 F 74-80 18-20 97-121/61-80 98-99 - Physical Exam General Appearance: Yes: Disheveled, Other (smells of urine, red carpet threads scattered in hair, unkempt, initially having an apparent diffuse tonic-clonic seizure which lasts about 30 seconds and resolves without intervention, initially not wearing C-collar) HEENT: positive: Hearing Grossly Normal, Neck: positive: Trachea midline, Supple. negative: Tender, Rigid Respiratory/Chest: positive: Lungs Clear, Normal Breath Sounds. negative: Respiratory Distress, Crackles, Rhonchi, Stridor, Wheezing Cardiovascular: positive: Regular Rhythm, Regular Rate. negative: Murmur Gastrointestinal/Abdominal: positive: Normal Bowel Sounds, Soft. negative: Tender, Organomegaly, Pulsatile Mass, Guarding Musculoskeletal: positive: Normal Inspection. negative: Decreased Range of Motion, Vertebral Tenderness Extremity: positive: Normal Capillary Refill, Normal Inspection, Normal Range of Motion. negative: Tender, Cyanosis Integumentary: positive: Normal Color, Dry, Warm. negative: Erythema, Rash, Bruising Neurologic: Limited exam, not participating in full confrontation, move LUE slight more than right, ?3/5 on R, ? 2/5 on L, tactile stimulation intact but limited on R, gait deferred CBCD WBC 7.6 K/mm3 (4.0-10.0) 04/26/17 05:28 RBC 4.10 M/mm3 (3.60-5.2) 04/26/17 05:28 Hgb 12.7 GM/dL (10.7-15.3) 04/26/17 05:28 Hct 37.0 % (32.4-45.2) 04/26/17 05:28 MCV 90.4 fl (80-96) 04/26/17 05:28 MCHC 34.4 g/dl (32.0-36.0) 04/26/17 05:28 RDW 16.7 % (11.6-15.6) H 04/26/17 05:28 Plt Count 180 K/MM3 (134-434) 04/26/17 05:28 MPV 8.6 fl (7.5-11.1) 04/26/17 05:28 CMP Sodium 140 mmol/L (136-145) 04/29/17 05:35 Potassium 4.1 mmol/L (3.5-5.1) 04/29/17 05:35 Chloride 103 mmol/L (98-107) 04/29/17 05:35 Carbon Dioxide 29 mmol/L (21-32) 04/29/17 05:35 Anion Gap 8 (8-16) 04/29/17 05:35 BUN 10 mg/dL (7-18) D 04/29/17 05:35 Creatinine 0.7 mg/dL (0.55-1.02) D 04/29/17 05:35 Creat Clearance w eGFR > 60 (>60) 04/23/17 06:00 Calcium 9.3 mg/dL (8.5-10.1) 04/29/17 05:35 Total Bilirubin 0.9 mg/dL (0.2-1.0) 04/23/17 06:00 AST 57 U/L (15-37) H 04/23/17 06:00 ALT 37 U/L (12-78) 04/23/17 06:00 Alkaline Phosphatase 50 U/L (45-117) 04/23/17 06:00 Total Protein 5.7 g/dl (6.4-8.2) L 04/23/17 06:00 Albumin 2.8 g/dl (3.4-5.0) L 04/25/17 08:30 - RADIOLOGY MRI brain reviewed CT head as above CD, echo reviewed Medical Decision Making female of unknown age and name with unknown medical history who presented BIBA after her called 911 because she had fallen on the floor and was not able to pick herself up after being on the floor for reportedly 24 hours. EMS states that the patient was laying on the carpeted floor on their arrival on scene at her home. The explained that he found her on the floor and she said she felt fine, so he did not call 911 until he saw her in the same place on the floor therafter. The patient was minimally responsive in the ED but able to state she was having left-sided weakness for the past three days which is what caused her to fall but thought it would pass and did not come to the hospital. There was a question of generalized seizure and positive troponins. CT head completed and did not show acute changes. MRI demonstrated subacute infarcts L temporal/parietal, L thalamic CVA. She was admitted and sent to ICU for close management. She is able to tell me her name is Joe Isidro and name of president but did not know exact location or date. Able to tell birthdate. -Patient started on Keppra for seizures, getting 1000mg twice daily, -Vimpat 100mg twice daily and Depakote 1000mg twice daily can be continued, - Klonipin 0.5mg Q12 hrs for tremor -Continue ASA -Seizures stabilized -BP control, goal < 160/90 for now, < 140/90 as outpatient -PT/OT as tolerated -DVT ppx -Seen by psych as well -Will need rehab placement
[2017-04-29] MEDS ORDERED: MAGNESIUM OXIDE 400 MG TABLET (FP) PO ONE (10:30)
--- NOTE | 2017-04-29 11:40 | PN ---
Progress Note, [employer] - Note Progress Note: Pt is much more alert and better able to verbalize. Still hesitant with anomia, but seems oriented. Reports receiving and disliking chopped food. Twitching less but still observed. Selected Entries 04/28/17 04/28/17 04/28/17 02:00 06:00 10:00 Supper Temperature 98.8 F 98.1 F 98.3 F 04/28/17 04/28/17 04/28/17 15:55 18:00 19:16 Supper 75% Temperature 98.3 F 98.7 F 04/28/17 04/29/17 04/29/17 21:31 02:00 05:34 Supper Temperature 98.4 F 98.1 F 98.2 F 04/29/17 08:24 Supper 75% Temperature 98.6 F Laboratory Tests 04/26/17 05:28 WBC 7.6 Trial of Dysphagia whole diet/thi liquid. Monitor tolerance.
--- NOTE | 2017-04-29 16:33 | PN ---
Teaching Attending Note Name of Resident: Don Lopez ATTENDING PHYSICIAN STATEMENT I saw and evaluated the patient. I reviewed the resident's note and discussed the case with the resident. I agree with the resident's findings and plan as documented. SUBJECTIVE: Patient is lying in bed. She appears comfortable. She has no complaints. OBJECTIVE: Vital Signs Period Temp Pulse Resp BP Sys/Levine Pulse Ox Last 24 Hr 97.6 F-98.7 F 74-85 18-20 104-121/68-80 98-99 HEART: S1S2, RRR LUNGS: Clear ABDOMEN: Soft, non-tender, non-distended, normal BS EXTREMITIES: No edema NEUROLOGICAL: Mild slurred speech, RUE/RLE strength 1/5. Right side twitching noted when she tries to move her right side Current Medications Generic Name Dose Route Start Last Admin Trade Name Freq PRN Reason Stop Dose Admin Acetaminophen 650 mg 04/26/17 16:02 Tylenol - PO Q6H PRN FEVER OR PAIN Aspirin 81 mg 04/22/17 10:00 04/29/17 09:42 Ecotrin - PO 81 mg DAILY [facility] Administration Clonazepam 0.5 mg 04/26/17 22:00 04/29/17 09:42 Klonopin - PO 0.5 mg BID [facility] Administration Divalproex Sodium 1,000 mg 04/26/17 22:00 04/29/17 09:41 Depakote - PO 1,000 mg BID [facility] Administration Lacosamide 100 mg 04/26/17 12:00 04/29/17 09:41 Vimpat - PO 100 mg BID [facility] Administration Levetiracetam 1,000 mg 04/26/17 11:00 04/29/17 09:41 Keppra - PO 1,000 mg BID [facility] Administration Metoprolol Succinate 25 mg 04/22/17 10:00 04/29/17 09:43 Toprol Xl - PO Not Given DAILY [facility] Rosuvastatin Calcium 40 mg 04/22/17 22:00 04/28/17 21:34 Crestor - PO 40 mg HS [facility] Administration Senna 1 tab 04/26/17 22:00 04/28/17 21:34 Senna - PO 1 tab HS [facility] Administration ASSESSMENT AND PLAN: This is a 66 year old woman with a history of alcohol abuse who presented to the ER after she was found on the floor by her . 1. 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 Psychiatry evaluation appreciated - she has limited/impaired capacity to make decisions on her behalf 2. Tonic-clonic seizures - Continue Keppra, Depakote, Vimpat, Klonopin 3. Acute inferior wall STEMI - Echo shows normal LV, normal RV - Continue medical management - Continue aspirin, Toprol XL, Crestor 4. Lactic acidemia secondary to seizure - Resolved 5. Acute kidney injury likely secondary to dehydration - Resolved 6. Hypokalemia - Improved 7. Hypophosphatemia - Improved 8. Hypomagnesemia - Supplement magnesium 9. Alcohol abuse - No signs of withdrawal 10. Rhabdomyolsis - Resolved 11. Polycythemia secondary to dehydration - Resolved
[2017-04-29] MEDS: SENNOSIDES 8.6MG TABLET (FP) PO SCH (21:32)
[2017-04-29] MEDS: ROSUVASTATIN CA 20 MG TABLET (FP) PO SCH (21:33)
[2017-04-30] MEDS ORDERED: PT OWN MED DRAWER 7, Y5N ONE ×2 (07:51→10:02)
[2017-04-30 08:28] LABS: ALBUMIN 2.6 g/dl (3.4-5.0); ALK PHOS 62 U/L (45-117); ANION GAP 6 (8-16); BILIRUBIN,TOTAL 0.3 mg/dL (0.2-1.0); CALCIUM 9.8 mg/dL (8.5-10.1); CO2 31 mmol/L (21-32); CREATININE 0.9 mg/dL (0.55-1.02); GLUCOSE,RANDOM 79 mg/dL (74-106); MAGNESIUM 1.8 mg/dL (1.8-2.4); PHOSPHOROUS 3.8 mg/dL (2.5-4.9); SGOT/AST 16 U/L (15-37); SGPT/ALT 17 U/L (12-78); TOT PROT 6.6 g/dl (6.4-8.2)
--- NOTE | 2017-04-30 09:15 | PN ---
Physical Exam: SUBJECTIVE: Patient seen and examined at bedside. No acute events overnight. Pt still against going to [facility]. Pt does not remember any new phone numbers for family members today OBJECTIVE: Vital Signs Temperature 98.2 F 04/30/17 08:05 Pulse Rate 72 04/30/17 08:05 Respiratory Rate 16 04/30/17 08:05 Blood Pressure 108/72 04/30/17 08:05 O2 Sat by Pulse Oximetry (%) 98 04/29/17 21:00 GENERAL: The patient is awake, alert, and oriented to person and place only. HEAD: Normal with no signs of trauma. R sided facial droop. ENT: Ears normal, nares patent NECK: Trachea midline, full range of motion, supple. LUNGS: Breath sounds equal, clear to auscultation bilaterally HEART: Regular rate and rhythm, S1, S2+ ABDOMEN: Soft, nontender, nondistended, normoactive bowel sounds, no guarding, no rebound, no hepatosplenomegaly, no masses. EXTREMITIES: R sided weakness. RUE 2/5 strength. RLE 1/5 strength. NEUROLOGICAL: Decreased sensation on R side of body (RUE, RLE). SKIN: Warm, dry Laboratory Results - last 24 hr 04/30/17 05:30 Sodium 139 Potassium 3.9 Chloride 102 Carbon Dioxide 31 Anion Gap 6 L BUN 11 Creatinine 0.9 D Creat Clearance w eGFR > 60 Random Glucose 79 Calcium 9.8 Phosphorus 3.8 Magnesium 1.8 Total Bilirubin 0.3 D AST 16 D ALT 17 D Alkaline Phosphatase 62 D Total Protein 6.6 Albumin 2.6 L Active Medications Generic Name Dose Route Start Last Admin Trade Name Teofilo PRN Reason Stop Dose Admin Acetaminophen 650 mg 04/26/17 16:02 Tylenol - PO Q6H PRN FEVER OR PAIN Aspirin 81 mg 04/22/17 10:00 04/29/17 09:42 Ecotrin - PO 81 mg DAILY [facility] Administration Clonazepam 0.5 mg 04/26/17 22:00 04/29/17 21:32 Klonopin - PO 0.5 mg BID [facility] Administration Divalproex Sodium 1,000 mg 04/26/17 22:00 04/29/17 21:34 Depakote - PO 1,000 mg BID [facility] Administration Lacosamide 100 mg 04/26/17 12:00 04/29/17 21:32 Vimpat - PO 100 mg BID [facility] Administration Levetiracetam 1,000 mg 04/26/17 11:00 04/29/17 21:32 Keppra - PO 1,000 mg BID [facility] Administration Metoprolol Succinate 25 mg 04/22/17 10:00 04/29/17 09:43 Toprol Xl - PO Not Given DAILY [facility] Rosuvastatin Calcium 40 mg 04/22/17 22:00 04/29/17 21:33 Crestor - PO 40 mg HS [facility] Administration Senna 1 tab 04/26/17 22:00 04/29/17 21:32 Senna - PO 1 tab HS [facility] Administration ASSESSMENT/PLAN: 66 y/o F w/PMH of EtOH abuse admitted for CVA w/new onset seizures. Now with R sided weakness and assessed to not have decision making capacity at this time. -AMS and new onset seizures secondary to L temporal, parietal and thalamic CVA -No baseline for mental status but improved compared to on admission. AAOX2 now. Psych eval - pt unable to make decisions at this time. -Neuro on board -Seizures controlled w/ Keppra 1g PO bid, depakote 1g PO bid, lacosamid 100 mg PO bid, klonopin 0.5 mg PO bid -For CVA: asa 81 mg po qd, crestor 40 mg po qhs -Elevated CK secondary to seizures most likely -now wnl at 111 (04/29/17) -DVT ppx -SCDs -FEN -no fluids -monitor electrolytes -speech/swallow recommends: Trial of Dysphagia whole diet/thin liquid. Monitor tolerance. -Psych -Pt seen by psych and assessed not to have decision making capacity. -Dispo: -Needs RAHUL placement or at home VNS/PT -Unable to contact family despite multiple attempts. Pt does not know any new phone numbers we can use. -Pt does not have capacity to make decisions. -Case management aware. -Will continue PT here in the meantime. Problem List - Problems (1) CVA (cerebral vascular accident) Code(s): I63.9 - CEREBRAL INFARCTION, UNSPECIFIED Qualifiers: CVA mechanism: unspecified Qualified Code(s): I63.9 - Cerebral infarction, unspecified (2) Seizure Code(s): R56.9 - UNSPECIFIED CONVULSIONS Visit type - Emergency Visit Emergency Visit: Yes ED Registration Date: 04/21/17 Care time: The patient presented to the Emergency Department on the above date and was hospitalized for further evaluation of their emergent condition. - New Patient This patient is new to me today: No - Critical Care Critical Care patient: No
[2017-04-30] MEDS ORDERED: MAGNESIUM OXIDE 400 MG TABLET (FP) PO ONE (09:17)
--- NOTE | 2017-04-30 10:17 | PN ---
Teaching Attending Note Name of Resident: Jorge Hernandez ATTENDING PHYSICIAN STATEMENT I saw and evaluated the patient. I reviewed the resident's note and discussed the case with the resident. I agree with the resident's findings and plan as documented. SUBJECTIVE: Patient has no complaints. OBJECTIVE: Vital Signs Period Temp Pulse Resp BP Sys/Levine Pulse Ox Last 24 Hr 97.6 F-98.6 F 72-87 16-20 102-124/67-86 98 HEART: S1S2, RRR LUNGS: Clear ABDOMEN: Soft, non-tender, non-distended, normal BS EXTREMITIES: No edema NEUROLOGICAL: Mild slurred speech, right facial weakness, RUE/RLE strength 1/5. Right side twitching noted when she tries to move her right arm Current Medications Generic Name Dose Route Start Last Admin Trade Name Freq PRN Reason Stop Dose Admin Acetaminophen 650 mg 04/26/17 16:02 Tylenol - PO Q6H PRN FEVER OR PAIN Aspirin 81 mg 04/22/17 10:00 04/29/17 09:42 Ecotrin - PO 81 mg DAILY CLEMENTE Administration Clonazepam 0.5 mg 04/26/17 22:00 04/29/17 21:32 Klonopin - PO 0.5 mg BID CLEMENTE Administration Divalproex Sodium 1,000 mg 04/26/17 22:00 04/29/17 21:34 Depakote - PO 1,000 mg BID CLEMENTE Administration Lacosamide 100 mg 04/26/17 12:00 04/29/17 21:32 Vimpat - PO 100 mg BID CLEMENTE Administration Levetiracetam 1,000 mg 04/26/17 11:00 04/29/17 21:32 Keppra - PO 1,000 mg BID CLEMENTE Administration Metoprolol Succinate 25 mg 04/22/17 10:00 04/29/17 09:43 Toprol Xl - PO Not Given DAILY CLEMENTE Rosuvastatin Calcium 40 mg 04/22/17 22:00 04/29/17 21:33 Crestor - PO 40 mg HS CLEMENTE Administration Senna 1 tab 04/26/17 22:00 04/29/17 21:32 Senna - PO 1 tab HS CLEMENTE Administration ASSESSMENT AND PLAN: This is a 66 year old woman with a history of alcohol abuse who presented to the ER after she was found on the floor by her . 1. 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 Psychiatry evaluation appreciated - she has limited/impaired capacity to make decisions on her behalf 2. Tonic-clonic seizures and right side myoclonic jerks - Continue Keppra, Depakote, Vimpat, Klonopin 3. Acute inferior wall STEMI - Echo shows normal LV, normal RV - Continue medical management - Continue aspirin, Toprol XL, Crestor 4. Lactic acidemia secondary to seizure - Resolved 5. Acute kidney injury likely secondary to dehydration - Resolved 6. Hypokalemia - Improved 7. Hypophosphatemia - Improved 8. Hypomagnesemia - Improved 9. Alcohol abuse - No signs of withdrawal 10. Rhabdomyolsis - Resolved 11. Polycythemia secondary to dehydration - Resolved
[2017-04-30] MEDS: LACOSAMIDE 50 MG TABLET PO SCH ×2 (10:39→21:43)
[2017-04-30] MEDS: ASPIRIN COATED 81 MG TABLET.EC PO SCH (10:42)
[2017-04-30] MEDS: levETIRAcetam 500 MG TABLET (FP) PO SCH ×2 (10:42→21:41)
[2017-04-30] MEDS: METOPROLOL SUCCINATE 25 MG TAB.SR.24H (FP) PO SCH (10:43)
[2017-04-30] MEDS: clonazePAM 0.5 MG TABLET PO SCH ×2 (10:43→21:42)
[2017-04-30] MEDS: DIVALPROEX SODIUM 500 MG TABLET E.C. PO SCH ×2 (10:43→21:41)
--- NOTE | 2017-04-30 13:05 | PN ---
Progress Note (short form) - Note Progress Note: Covering for Dr Morley 66 year old female came with unreponsiveness and found to have left sided temporal, parietal and thalamic stroke. Patient has right sided myoclonic jerks and partial seizures, on three AED and klonopin. Patinet is also on crestor and aspirin. She is able to eat and incontinence. There is no new symptoms. She remains confused . There no generalized tonic clonic seizures, and She is able to communicate for her needs. Medication include Depakote 1 gm po bid keppra 1000 mg po bid vimpat 100 mg po bid crestor and apsirin Neurological Examination Vital stable Alert and oriented x 2, speech is dyarthric Her myoclonic jerks becomes worse on arousal severe right sided facial palsy, pupils are reactive and eomi there is right sided hemiparesis Investigation MRI OF BRAIN mra of brain, eeg and echo reviewed Assessment 1. Left Parietal, temporal and thalamci infarct, continue aspirin and statin 2. partial myoclonic jerks, very intractable on four AED , still continue to have myoclonic jerks specially on arousal, continue AED . Prognosis is guarded condition stable, continue current level of care - Continue PT, DVT Prophylaxis, placement , speech therapy, Thanking you so much Emmanuel Hampton MD
[2017-04-30] MEDS: ROSUVASTATIN CA 20 MG TABLET (FP) PO SCH (21:39)
[2017-04-30] MEDS: SENNOSIDES 8.6MG TABLET (FP) PO SCH (21:42)
[2017-05-01 07:38] LABS: ALBUMIN 2.7 g/dl (3.4-5.0); ANION GAP 6 (8-16); CO2 30 mmol/L (21-32); CREATININE 0.9 mg/dL (0.55-1.02); GLUCOSE,RANDOM 83 mg/dL (74-106); MAGNESIUM 1.8 mg/dL (1.8-2.4); PHOSPHOROUS 4.5 mg/dL (2.5-4.9)
[2017-05-01] MEDS ORDERED: PT OWN MED DRAWER 7, Y5N ONE (09:15)
[2017-05-01] MEDS: levETIRAcetam 500 MG TABLET (FP) PO SCH ×2 (09:20→21:34)
[2017-05-01] MEDS: DIVALPROEX SODIUM 500 MG TABLET E.C. PO SCH ×2 (09:20→21:34)
[2017-05-01] MEDS: ASPIRIN COATED 81 MG TABLET.EC PO SCH (09:21)
[2017-05-01] MEDS: clonazePAM 0.5 MG TABLET PO SCH ×2 (09:21→21:34)
[2017-05-01] MEDS: METOPROLOL SUCCINATE 25 MG TAB.SR.24H (FP) PO SCH (09:21)
[2017-05-01] MEDS: LACOSAMIDE 50 MG TABLET PO SCH ×2 (09:21→21:34)
--- NOTE | 2017-05-01 11:06 | PN ---
Physical Exam: SUBJECTIVE: Patient seen and examined. She has no complaints. OBJECTIVE: Vital Signs Period Temp Pulse Resp BP Sys/Levine Pulse Ox Last 24 Hr 97.5 F-98.8 F 68-77 18-20 102-125/66-87 96-96 GENERAL: The patient is awake, alert, confused, in no acute distress. LUNGS: Breath sounds equal, clear to auscultation bilaterally, no wheezes, no crackles, no accessory muscle use. HEART: Regular rate and rhythm, S1, S2 without murmur, rub or gallop. ABDOMEN: Soft, nontender, nondistended, normoactive bowel sounds, no guarding, no rebound, no hepatosplenomegaly, no masses. EXTREMITIES: 2+ pulses, warm, well-perfused, no edema. NEUROLOGICAL: Mild slurred speech, right facial weakness, RUE/RLE strength 1/5, twitching of RLE Laboratory Results - last 24 hr 05/01/17 05:25 Sodium 139 Potassium 4.0 Chloride 103 Carbon Dioxide 30 Anion Gap 6 L BUN 10 Creatinine 0.9 Random Glucose 83 Calcium 10.0 Phosphorus 4.5 Magnesium 1.8 Albumin 2.7 L Active Medications Generic Name Dose Route Start Last Admin Trade Name Freq PRN Reason Stop Dose Admin Acetaminophen 650 mg 04/26/17 16:02 Tylenol - PO Q6H PRN FEVER OR PAIN Aspirin 81 mg 04/22/17 10:00 05/01/17 09:21 Ecotrin - PO 81 mg DAILY CLEMENTE Administration Clonazepam 0.5 mg 04/26/17 22:00 05/01/17 09:21 Klonopin - PO 0.5 mg BID CLEMENTE Administration Divalproex Sodium 1,000 mg 04/26/17 22:00 05/01/17 09:20 Depakote - PO 1,000 mg BID CLEMENTE Administration Lacosamide 100 mg 04/26/17 12:00 05/01/17 09:21 Vimpat - PO 100 mg BID CLEMENTE Administration Levetiracetam 1,000 mg 04/26/17 11:00 05/01/17 09:20 Keppra - PO 1,000 mg BID CLEMENTE Administration Metoprolol Succinate 25 mg 04/22/17 10:00 05/01/17 09:21 Toprol Xl - PO 25 mg DAILY CLEMENTE Administration Rosuvastatin Calcium 40 mg 04/22/17 22:00 04/30/17 21:39 Crestor - PO 40 mg HS CLEMENTE Administration Senna 1 tab 04/26/17 22:00 04/30/17 21:42 Senna - PO 1 tab HS CLEMENTE Administration ASSESSMENT/PLAN: This is a 66 year old woman with a history of alcohol abuse who presented to the ER after she was found on the floor by her . 1. 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 Psychiatry evaluation appreciated - she has limited/impaired capacity to make decisions on her behalf 2. Tonic-clonic seizures and right side myoclonic jerks - Continue Keppra, Depakote, Vimpat, Klonopin 3. Acute inferior wall STEMI - Echo shows normal LV, normal RV - Continue medical management - Continue aspirin, Toprol XL, Crestor 4. Lactic acidemia secondary to seizure - Resolved 5. Acute kidney injury likely secondary to dehydration - Resolved 6. Hypokalemia - Improved 7. Hypophosphatemia - Improved 8. Hypomagnesemia - Improved 9. Alcohol abuse - No signs of withdrawal 10. Rhabdomyolsis - Resolved 11. Polycythemia secondary to dehydration - Resolved Visit type - Emergency Visit Emergency Visit: Yes ED Registration Date: 04/21/17 Care time: The patient presented to the Emergency Department on the above date and was hospitalized for further evaluation of their emergent condition. - New Patient This patient is new to me today: No - Critical Care Critical Care patient: No - Discharge Referral Referred to [facility] No
[2017-05-01] MEDS ORDERED: ROSUVASTATIN CA 10 MG TABLET (FP) ONE (20:25)
[2017-05-01] MEDS: SENNOSIDES 8.6MG TABLET (FP) PO SCH (21:35)
[2017-05-01] MEDS: ROSUVASTATIN CA 20 MG TABLET (FP) PO SCH (21:35)
[2017-05-02] MEDS ORDERED: ACETAMINOPHEN 325 MG TABLET (FP) PO PRN (06:48)
--- NOTE | 2017-05-02 06:55 | PN ---
Physical Exam: SUBJECTIVE: Patient seen and examined at bedside. Patient appears more awake and alert today. Responses still mildly delayed. Now moving left upper limb spontaneously. Left lower limb still with minimal movement. Myoclonic movments have improved. OBJECTIVE: Vital Signs Period Temp Pulse Resp BP Sys/Levine Pulse Ox Last 24 Hr 98 F-98.8 F 66-80 18-20 98-135/56-77 96-96 GENERAL: The patient is awake, alert, and fully oriented, in no acute distress. HEAD: Normal with no signs of trauma. EYES: extraocular movements intact, sclera anicteric, conjunctiva clear. No ptosis. NECK: Trachea midline, full range of motion, supple. LUNGS: Breath sounds equal, clear to auscultation bilaterally, no wheezes, no crackles, no accessory muscle use. HEART: Regular rate and rhythm, S1, S2 without murmur, rub or gallop. ABDOMEN: Soft, nontender, nondistended, normoactive bowel sounds, no guarding, no rebound, no hepatosplenomegaly, no masses. EXTREMITIES: 2+ pulses, warm, well-perfused, no edema. NEUROLOGICAL: Cranial nerves II through X grossly intact. Normal speech, gait not observed. 45 strength on the left. 3/5 strength in the RUE, 2/5 strength in the RLE SKIN: Warm, dry, normal turgor, no rashes or lesions noted Laboratory Results - last 24 hr 05/01/17 05:25 Sodium 139 Potassium 4.0 Chloride 103 Carbon Dioxide 30 Anion Gap 6 L BUN 10 Creatinine 0.9 Random Glucose 83 Calcium 10.0 Phosphorus 4.5 Magnesium 1.8 Albumin 2.7 L Active Medications Generic Name Dose Route Start Last Admin Trade Name Freq PRN Reason Stop Dose Admin Acetaminophen 650 mg 05/02/17 06:48 Tylenol - PO Q6H PRN FEVER OR PAIN Aspirin 81 mg 05/02/17 10:00 Ecotrin - PO DAILY CLEMENTE Clonazepam 0.5 mg 05/02/17 10:00 Klonopin - PO BID CLEMENTE Divalproex Sodium 1,000 mg 05/02/17 10:00 Depakote - PO BID CLEMENTE Lacosamide 100 mg 05/02/17 10:00 Vimpat - PO BID CLEMENTE Levetiracetam 1,000 mg 05/02/17 10:00 Keppra - PO BID CLEMENTE Metoprolol Succinate 25 mg 05/02/17 10:00 Toprol Xl - PO DAILY CLEMENTE Rosuvastatin Calcium 40 mg 05/02/17 22:00 Crestor - PO HS CLEMENTE Senna 1 tab 05/02/17 22:00 Senna - PO HS CLEMENTE ASSESSMENT/PLAN: 66 yo f w/PMH ETOH abuse w/ rest of PMH unknown presents s/p fall for 24 hours admitted for CVA with myotonic movments and residual right sided weakness. 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, parietal and thalamic CVA -RPT MRA shows possible occlusion or superior M2 branch of Left MCA -MRI shows infarcts in left temporal and parietal lobes as well as in left thalmus -tonic movements of right limbs improved today -Will follow neurology reccs to attempt control of tonic movements: -Keppra 1g PO BID -Depakote 1g PO BID -lacosamide 100mg PO BID -klonopin .5 BID PO added #Troponinemia 2/2 STEMI -Troponin peak at 2.7 documented -No anginal symptoms currently -no ischemic workup indicated at this time as per cardio -ASA 81 -Toprolol XL 25mg -anticoagulation contraindicated in the setting of acute stroke #New onset fever to 101, possibly 2/2 UTI- resolved -Patient afebrile for >24h -repeat UA Not indiciative of UTI -repeat ucx growing E. Coli -repeat bcx growing coagulase negative staph #Lactic Acidosis- resolved -Lactic acid 1.1 now #Elevated CK 2/2 acute KS vs seizure activity- resolved -ck trending down #NICOLÁS-resolved -cr. .9 now #FEN -no fluids indicated at this time -monitor lytes -Dysphagia ground; soft items on tray #Propylaxsis -SCDs, heparin c/i at this time in the setting of CVA -GI- not indicated at this time -OOB to chair #Dispo -patient admitted for workup and treatment of acute stroke. -patient is refusing RAHUL. Multiple attempts to reach the family have been made by multiple health care teams. -Patient is not able to carry out ADLs on her own and requires assistance. Without contact with family members, she will be unable to be discharged home. -Psych has deemed that the patient does not have the capacity to make her own decisions. We must defer to an advanced directive or patient's to make decisions. -Case management to contact adult protective services as patient seems to have been abandoned by Problem List - Problems (1) CVA (cerebral vascular accident) Code(s): I63.9 - CEREBRAL INFARCTION, UNSPECIFIED Qualifiers: CVA mechanism: unspecified Qualified Code(s): I63.9 - Cerebral infarction, unspecified; I63.9 - Cerebral infarction, unspecified; I63.9 - Cerebral infarction, unspecified; I63.9 - Cerebral infarction, unspecified (2) Seizure Code(s): R56.9 - UNSPECIFIED CONVULSIONS Visit type - Emergency Visit Emergency Visit: Yes ED Registration Date: 04/21/17 Care time: The patient presented to the Emergency Department on the above date and was hospitalized for further evaluation of their emergent condition. - New Patient This patient is new to me today: No - Critical Care Critical Care patient: No
--- NOTE | 2017-05-02 09:40 | PN ---
Progress Note (short form) - Note Progress Note: Neurology This is a female of unknown age and name with unknown medical history who presented BIBA after her called 911 because she had fallen on the floor and was not able to pick herself up after being on the floor for reportedly 24 hours. EMS states that the patient was laying on the carpeted floor on their arrival on scene at her home. The explained that he found her on the floor and she said she felt fine, so he did not call 911 until he saw her in the same place on the floor therafter. The patient was minimally responsive in the ED but able to state she was having left-sided weakness for the past three days which is what caused her to fall but thought it would pass and did not come to the hospital. She was out of TPA window. MRI completed and showed subacute infarcts L temporal/parietal, L thalamic and she does have right sided deficits. There was some facial twitching and patient put on Keppra, increased to 1000mg twice a day, Vimpat also started 100mg twice daily, Depakote also started with good control. Patient on ASA 81mg. CD without hemodynamically significant stenosis, Echo reviewed and LV function normal. AED's converted to PO. Possibly for rehab placement. Klonipin for low amplitude tremor added, not having seizure events at this time. Awaiting placement, no new events over the weekend, covered by Dr. Neri. Patient calm and comfortable. Active Medications Acetaminophen (Tylenol -) 650 mg PO Q6H PRN PRN Reason: FEVER OR PAIN Aspirin (Ecotrin -) 81 mg PO DAILY CLEMENTE Clonazepam (Klonopin -) 0.5 mg PO BID CLEMENTE Divalproex Sodium (Depakote -) 1,000 mg PO BID CLEMENTE Lacosamide (Vimpat -) 100 mg PO BID CLEMENTE Levetiracetam (Keppra -) 1,000 mg PO BID CLEMENTE Metoprolol Succinate (Toprol Xl -) 25 mg PO DAILY CLEMENTE Rosuvastatin Calcium (Crestor -) 40 mg PO HS CLEMENTE Senna (Senna -) 1 tab PO HS CLEMENTE *Physical Exam Vital Signs Period Temp Pulse Resp BP Sys/Levine Pulse Ox Last 24 Hr 96.7 F-98.8 F 66-80 18-20 98-135/56-77 96 - Physical Exam General Appearance: Yes: Disheveled, Other (smells of urine, red carpet threads scattered in hair, unkempt, initially having an apparent diffuse tonic-clonic seizure which lasts about 30 seconds and resolves without intervention, initially not wearing C-collar) HEENT: positive: Hearing Grossly Normal, Neck: positive: Trachea midline, Supple. negative: Tender, Rigid Respiratory/Chest: positive: Lungs Clear, Normal Breath Sounds. negative: Respiratory Distress, Crackles, Rhonchi, Stridor, Wheezing Cardiovascular: positive: Regular Rhythm, Regular Rate. negative: Murmur Gastrointestinal/Abdominal: positive: Normal Bowel Sounds, Soft. negative: Tender, Organomegaly, Pulsatile Mass, Guarding Musculoskeletal: positive: Normal Inspection. negative: Decreased Range of Motion, Vertebral Tenderness Extremity: positive: Normal Capillary Refill, Normal Inspection, Normal Range of Motion. negative: Tender, Cyanosis Integumentary: positive: Normal Color, Dry, Warm. negative: Erythema, Rash, Bruising Neurologic: Limited exam, not participating in full confrontation, move LUE slight more than right, ?3/5 on R, ? 2/5 on L, tactile stimulation intact but limited on R, gait deferred CBCD WBC 7.6 K/mm3 (4.0-10.0) 04/26/17 05:28 RBC 4.10 M/mm3 (3.60-5.2) 04/26/17 05:28 Hgb 12.7 GM/dL (10.7-15.3) 04/26/17 05:28 Hct 37.0 % (32.4-45.2) 04/26/17 05:28 MCV 90.4 fl (80-96) 04/26/17 05:28 MCHC 34.4 g/dl (32.0-36.0) 04/26/17 05:28 RDW 16.7 % (11.6-15.6) H 04/26/17 05:28 Plt Count 180 K/MM3 (134-434) 04/26/17 05:28 MPV 8.6 fl (7.5-11.1) 04/26/17 05:28 CMP Sodium 139 mmol/L (136-145) 05/01/17 05:25 Potassium 4.0 mmol/L (3.5-5.1) 05/01/17 05:25 Chloride 103 mmol/L (98-107) 05/01/17 05:25 Carbon Dioxide 30 mmol/L (21-32) 05/01/17 05:25 Anion Gap 6 (8-16) L 05/01/17 05:25 BUN 10 mg/dL (7-18) 05/01/17 05:25 Creatinine 0.9 mg/dL (0.55-1.02) 05/01/17 05:25 Creat Clearance w eGFR > 60 (>60) 04/30/17 05:30 Calcium 10.0 mg/dL (8.5-10.1) 05/01/17 05:25 Total Bilirubin 0.3 mg/dL (0.2-1.0) D 04/30/17 05:30 AST 16 U/L (15-37) D 04/30/17 05:30 ALT 17 U/L (12-78) D 04/30/17 05:30 Alkaline Phosphatase 62 U/L (45-117) D 04/30/17 05:30 Total Protein 6.6 g/dl (6.4-8.2) 04/30/17 05:30 Albumin 2.7 g/dl (3.4-5.0) L 05/01/17 05:25 - RADIOLOGY MRI brain reviewed CT head as above CD, echo reviewed Medical Decision Making female of unknown age and name with unknown medical history who presented BIBA after her called 911 because she had fallen on the floor and was not able to pick herself up after being on the floor for reportedly 24 hours. EMS states that the patient was laying on the carpeted floor on their arrival on scene at her home. The explained that he found her on the floor and she said she felt fine, so he did not call 911 until he saw her in the same place on the floor therafter. The patient was minimally responsive in the ED but able to state she was having left-sided weakness for the past three days which is what caused her to fall but thought it would pass and did not come to the hospital. There was a question of generalized seizure and positive troponins. CT head completed and did not show acute changes. MRI demonstrated subacute infarcts L temporal/parietal, L thalamic CVA. She was admitted and sent to ICU for close management. She is able to tell me her name is Joe Isidro and name of president but did not know exact location or date. Able to tell birthdate. -Patient started on Keppra for seizures, getting 1000mg twice daily, -Vimpat 100mg twice daily and Depakote 1000mg twice daily can be continued, - Klonipin 0.5mg Q12 hrs for tremor -Continue ASA -Seizures stabilized -BP control, goal < 160/90 for now, < 140/90 as outpatient -PT/OT as tolerated -DVT ppx -Seen by psych as well -Will need rehab placement
[2017-05-02] MEDS ORDERED: PT OWN MED DRAWER 7, Y5N ONE ×2 (11:16→11:17)
--- NOTE | 2017-05-02 11:26 | PN ---
Teaching Attending Note Name of Resident: Don Lopez ATTENDING PHYSICIAN STATEMENT I saw and evaluated the patient. I reviewed the resident's note and discussed the case with the resident. I agree with the resident's findings and plan as documented. SUBJECTIVE: Patient has no complaints. OBJECTIVE: Vital Signs Period Temp Pulse Resp BP Sys/Levine Pulse Ox Last 24 Hr 96.7 F-98.7 F 66-80 18-18 98-135/56-77 96 HEART: S1S2, RRR LUNGS: Clear ABDOMEN: Soft, non-tender, non-distended, normal BS EXTREMITIES: 2+ pulses, warm, well-perfused, no edema NEUROLOGICAL: Mild slurred speech, right facial weakness, RUE/RLE strength 1/5, occasional twitching of RLE Current Medications Generic Name Dose Route Start Last Admin Trade Name Freq PRN Reason Stop Dose Admin Acetaminophen 650 mg 05/02/17 06:48 Tylenol - PO Q6H PRN FEVER OR PAIN Aspirin 81 mg 05/02/17 10:00 Ecotrin - PO DAILY CLEMENTE Clonazepam 0.5 mg 05/02/17 10:00 Klonopin - PO BID CLEMENTE Divalproex Sodium 1,000 mg 05/02/17 10:00 Depakote - PO BID CLEMENTE Lacosamide 100 mg 05/02/17 10:00 Vimpat - PO BID CLEMENTE Levetiracetam 1,000 mg 05/02/17 10:00 Keppra - PO BID CLEMENTE Metoprolol Succinate 25 mg 05/02/17 10:00 Toprol Xl - PO DAILY CLEMENTE Rosuvastatin Calcium 40 mg 05/02/17 22:00 Crestor - PO HS CLEMENTE Senna 1 tab 05/02/17 22:00 Senna - PO HS CLEMENTE ASSESSMENT AND PLAN: This is a 66 year old woman with a history of alcohol abuse who presented to the ER after she was found on the floor by her . 1. 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 Psychiatry evaluation appreciated - she has limited/impaired capacity to make decisions on her behalf 2. Tonic-clonic seizures and right-sided myoclonic jerks - Continue Keppra, Depakote, Vimpat, Klonopin 3. Acute inferior wall STEMI - Echo shows normal LV, normal RV - Continue medical management - Continue aspirin, Toprol XL, Crestor 4. Lactic acidemia secondary to seizure - Resolved 5. Acute kidney injury likely secondary to dehydration - Resolved 6. Hypokalemia - Improved 7. Hypophosphatemia - Improved 8. Hypomagnesemia - Improved 9. Alcohol abuse - No signs of withdrawal 10. Rhabdomyolsis - Resolved 11. Polycythemia secondary to dehydration - Resolved
[2017-05-02] MEDS: ASPIRIN COATED 81 MG TABLET.EC PO SCH (11:36)
[2017-05-02] MEDS: DIVALPROEX SODIUM 500 MG TABLET E.C. PO SCH ×2 (11:37→21:14)
[2017-05-02] MEDS: levETIRAcetam 500 MG TABLET (FP) PO SCH ×2 (11:37→21:14)
[2017-05-02] MEDS: LACOSAMIDE 50 MG TABLET PO SCH ×2 (11:38→21:13)
[2017-05-02] MEDS: METOPROLOL SUCCINATE 25 MG TAB.SR.24H (FP) PO SCH (11:39)
[2017-05-02] MEDS: clonazePAM 0.5 MG TABLET PO SCH ×2 (11:43→21:14)
--- NOTE | 2017-05-02 14:12 | PN ---
Progress Note (short form) - Note Progress Note: Overall appears better. No acute events overnight. No CP or SOB. Intake & Output 04/29/17 04/30/17 05/01/17 05/02/17 23:59 23:59 23:59 23:59 Intake Total 90 440 670 Balance 90 440 670 Last Vital Signs Temp Pulse Resp BP Pulse Ox 98.3 F 72 24 108/56 98 05/02/17 10:00 05/02/17 10:00 05/02/17 10:00 05/02/17 10:00 05/02/17 09:00 Home Medication List Medication Instructions Recorded Confirmed Type Unobtainable [Unobtainable] 04/21/17 04/21/17 History Active Medications Generic Name Dose Route Start Last Admin Trade Name Freq PRN Reason Stop Dose Admin Acetaminophen 650 mg 05/02/17 06:48 Tylenol - PO Q6H PRN FEVER OR PAIN Aspirin 81 mg 05/02/17 10:00 05/02/17 11:36 Ecotrin - PO 81 mg DAILY CLEMENTE Administration Clonazepam 0.5 mg 05/02/17 10:00 05/02/17 11:43 Klonopin - PO 0.5 mg BID CLEMENTE Administration Divalproex Sodium 1,000 mg 05/02/17 10:00 05/02/17 11:37 Depakote - PO 1,000 mg BID CLEMENTE Administration Lacosamide 100 mg 05/02/17 10:00 05/02/17 11:38 Vimpat - PO 100 mg BID CLEMENTE Administration Levetiracetam 1,000 mg 05/02/17 10:00 05/02/17 11:37 Keppra - PO 1,000 mg BID CLEMENTE Administration Metoprolol Succinate 25 mg 05/02/17 10:00 05/02/17 11:39 Toprol Xl - PO 25 mg DAILY CLEMENTE Administration Rosuvastatin Calcium 40 mg 05/02/17 22:00 Crestor - PO HS CLEMENTE Senna 1 tab 05/02/17 22:00 Senna - PO HS CLEMENTE Constitutional: Yes: Awake and alert, NAD Eyes: Yes: Resolved Left conjunctival hemorrhage HENT: Yes: Atraumatic, Normocephalic Neck: Yes: Supple, Trachea Midline Cardiovascular: Yes: Regular Rate and Rhythm, S1, S2 Respiratory: Yes: CTA Bilaterally Gastrointestinal: Yes: WNL, Soft, Hyperactive Bowel Sounds Renal/: Yes: Handy Present Extremities: Yes: WNL Neurological: Yes: Awake and alert, facial Droop Labs: Problem List - Problems (1) NICOLÁS (acute kidney injury) Code(s): N17.9 - ACUTE KIDNEY FAILURE, UNSPECIFIED (2) CVA (cerebral vascular accident) Code(s): I63.9 - CEREBRAL INFARCTION, UNSPECIFIED Qualifiers: CVA mechanism: unspecified Qualified Code(s): I63.9 - Cerebral infarction, unspecified (3) Lactic acidosis Code(s): E87.2 - ACIDOSIS (4) Seizure Code(s): R56.9 - UNSPECIFIED CONVULSIONS Assessment/Plan Aspiration precautions O2 as needed BP monitoring AEDs per Neuro Beta iron D/C planning Dr Early
--- NOTE | 2017-05-02 15:53 | PN ---
Progress Note, HOME DEPOT REP - Note Progress Note: Lethargic with limited verbalizations. On seizure medications, likely affecting NORI and ability to participate. No twitching noted with me. Said to have beenm twitching in abdominal area leg , earlier today. Selected Entries 05/01/17 05/01/17 05/01/17 02:00 05:26 10:00 Breakfast Lunch Temperature 97.5 F L 98.2 F 98.8 F 05/01/17 05/01/17 05/01/17 11:46 14:00 18:25 Breakfast 50% Lunch 50% Temperature 98.7 F 98.3 F 05/01/17 05/02/17 05/02/17 22:00 01:56 02:16 Breakfast Lunch Temperature 98.0 F 98 F 98 F 05/02/17 05/02/17 05/02/17 06:00 09:29 10:00 Breakfast 75% Lunch Temperature 96.7 F L 98.3 F 05/02/17 14:31 Breakfast Lunch 50% Temperature 98.4 F May need dietary downgrade due to lethargy. Monitor toilerance. Feed only if fully awake.Aspiration precautions.
[2017-05-02] MEDS ORDERED: ROSUVASTATIN CA 10 MG TABLET (FP) ONE (20:22)
[2017-05-02] MEDS: ROSUVASTATIN CA 20 MG TABLET (FP) PO SCH (21:14)
[2017-05-02] MEDS: SENNOSIDES 8.6MG TABLET (FP) PO SCH (21:14)
--- NOTE | 2017-05-03 06:28 | PN ---
Physical Exam: SUBJECTIVE: Patient seen and examined at bedside. No new complaints. Patient appears more lethargic today than yesterday. OBJECTIVE: Vital Signs Period Temp Pulse Resp BP Sys/Levine Pulse Ox Last 24 Hr 97.9 F-98.4 F 65-75 16-24 105-112/56-74 98-98 GENERAL: The patient is awake, alert, and fully oriented, in no acute distress. HEAD: Normal with no signs of trauma. EYES: extraocular movements intact, sclera anicteric, conjunctiva clear. No ptosis. NECK: Trachea midline, full range of motion, supple. LUNGS: Breath sounds equal, clear to auscultation bilaterally, no wheezes, no crackles, no accessory muscle use. HEART: Regular rate and rhythm, S1, S2 without murmur, rub or gallop. ABDOMEN: Soft, nontender, nondistended, normoactive bowel sounds, no guarding, no rebound, no hepatosplenomegaly, no masses. EXTREMITIES: 2+ pulses, warm, well-perfused, no edema. NEUROLOGICAL: Cranial nerves II through X grossly intact. Normal speech, gait not observed. PSYCH: Normal mood, normal affect. SKIN: Warm, dry, normal turgor, no rashes or lesions noted Active Medications Generic Name Dose Route Start Last Admin Trade Name Freq PRN Reason Stop Dose Admin Acetaminophen 650 mg 05/02/17 06:48 Tylenol - PO Q6H PRN FEVER OR PAIN Aspirin 81 mg 05/02/17 10:00 05/02/17 11:36 Ecotrin - PO 81 mg DAILY CLEMENTE Administration Clonazepam 0.5 mg 05/02/17 10:00 05/02/17 21:14 Klonopin - PO 0.5 mg BID CLEMENTE Administration Divalproex Sodium 1,000 mg 05/02/17 10:00 05/02/17 21:14 Depakote - PO 1,000 mg BID CLEMENTE Administration Lacosamide 100 mg 05/02/17 10:00 05/02/17 21:13 Vimpat - PO 100 mg BID CLEMENTE Administration Levetiracetam 1,000 mg 05/02/17 10:00 05/02/17 21:14 Keppra - PO 1,000 mg BID CLEMENTE Administration Metoprolol Succinate 25 mg 05/02/17 10:00 05/02/17 11:39 Toprol Xl - PO 25 mg DAILY CLEMENTE Administration Rosuvastatin Calcium 40 mg 05/02/17 22:00 05/02/17 21:14 Crestor - PO 40 mg HS CLEMENTE Administration Senna 1 tab 05/02/17 22:00 05/02/17 21:14 Senna - PO 1 tab HS CLEMENTE Administration ASSESSMENT/PLAN: 66 yo f w/PMH ETOH abuse w/ rest of PMH unknown presents s/p fall for 24 hours admitted for CVA with myotonic movments and residual right sided weakness. 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, parietal and thalamic CVA -RPT MRA shows possible occlusion or superior M2 branch of Left MCA -MRI shows infarcts in left temporal and parietal lobes as well as in left thalmus -tonic movements of right limbs absent today -Will follow neurology reccs to attempt control of tonic movements: -Keppra 1g PO BID -Depakote 1g PO BID -lacosamide 100mg PO BID -klonopin .5 BID PO added #Troponinemia 2/2 STEMI -Troponin peak at 2.7 documented -No anginal symptoms currently -no ischemic workup indicated at this time as per cardio -ASA 81 -Toprolol XL 25mg -anticoagulation contraindicated in the setting of acute stroke #New onset fever to 101, possibly 2/2 UTI- resolved -Patient afebrile for >24h -repeat UA Not indiciative of UTI -repeat ucx growing E. Coli -repeat bcx growing coagulase negative staph -because patient is more lethargic over the past two days, will treat the otherwise asymptomatic UTI empirically -Rocephin 1g daily -NS @ 75 #Lactic Acidosis- resolved -Lactic acid 1.1 now #Elevated CK 2/2 acute [place] vs seizure activity- resolved -ck trending down #NICOLÁS-resolved -cr. .9 now #FEN -NS @ 75 -monitor lytes -Dysphagia puree with nectar consistancy liquids #Propylaxsis -SCDs, heparin c/i at this time in the setting of CVA -GI- not indicated at this time -OOB to chair #Dispo -patient admitted for workup and treatment of acute stroke. -Multiple attempts to reach the family have been made by multiple health care teams. -Patient is not able to carry out ADLs on her own and requires assistance. Without contact with family members, she will be unable to be discharged home. -Psych has deemed that the patient does not have the capacity to make her own decisions. We must defer to an advanced directive or patient's to make decisions. -Case management to contact adult protective services as patient seems to have been abandoned by Problem List - Problems (1) CVA (cerebral vascular accident) Code(s): I63.9 - CEREBRAL INFARCTION, UNSPECIFIED Qualifiers: CVA mechanism: unspecified Qualified Code(s): I63.9 - Cerebral infarction, unspecified; I63.9 - Cerebral infarction, unspecified; I63.9 - Cerebral infarction, unspecified; I63.9 - Cerebral infarction, unspecified (2) Seizure Code(s): R56.9 - UNSPECIFIED CONVULSIONS Visit type - Emergency Visit Emergency Visit: Yes ED Registration Date: 04/21/17 Care time: The patient presented to the Emergency Department on the above date and was hospitalized for further evaluation of their emergent condition. - New Patient This patient is new to me today: No - Critical Care Critical Care patient: No
[2017-05-03 07:57] LABS: ALBUMIN 2.7 g/dl (3.4-5.0); ANION GAP 6 (8-16); CO2 30 mmol/L (21-32); GLUCOSE,RANDOM 93 mg/dL (74-106)
[2017-05-03 07:59] LABS: PHOSPHOROUS 4.6 mg/dL (2.5-4.9)
[2017-05-03] MEDS ORDERED: PT OWN MED DRAWER 7, Y5N ONE (10:07)
--- NOTE | 2017-05-03 10:12 | PN ---
Progress Note (short form) - Note Progress Note: Neurology This is a female of unknown age and name with unknown medical history who presented BIBA after her called 911 because she had fallen on the floor and was not able to pick herself up after being on the floor for reportedly 24 hours. EMS states that the patient was laying on the carpeted floor on their arrival on scene at her home. The explained that he found her on the floor and she said she felt fine, so he did not call 911 until he saw her in the same place on the floor therafter. The patient was minimally responsive in the ED but able to state she was having left-sided weakness for the past three days which is what caused her to fall but thought it would pass and did not come to the hospital. She was out of TPA window. MRI completed and showed subacute infarcts L temporal/parietal, L thalamic and she does have right sided deficits. There was some facial twitching and patient put on Keppra, increased to 1000mg twice a day, Vimpat also started 100mg twice daily, Depakote also started with good control. Patient on ASA 81mg. CD without hemodynamically significant stenosis, Echo reviewed and LV function normal. AED' s converted to PO. Possibly for rehab placement. Klonipin for low amplitude tremor added, not having seizure events at this time. Awaiting placement, patient slightly fatigued this morning. Active Medications Acetaminophen (Tylenol -) 650 mg PO Q6H PRN PRN Reason: FEVER OR PAIN Aspirin (Ecotrin -) 81 mg PO DAILY [facility] Last Admin: 05/02/17 11:36 Dose: 81 mg Clonazepam (Klonopin -) 0.5 mg PO BID [facility] Last Admin: 05/02/17 21:14 Dose: 0.5 mg Divalproex Sodium (Depakote -) 1,000 mg PO BID [facility] Last Admin: 05/02/17 21:14 Dose: 1,000 mg Lacosamide (Vimpat -) 100 mg PO BID [facility] Last Admin: 05/02/17 21:13 Dose: 100 mg Levetiracetam (Keppra -) 1,000 mg PO BID [facility] Last Admin: 05/02/17 21:14 Dose: 1,000 mg Metoprolol Succinate (Toprol Xl -) 25 mg PO DAILY [facility] Last Admin: 05/02/17 11:39 Dose: 25 mg Rosuvastatin Calcium (Crestor -) 40 mg PO HS [facility] Last Admin: 05/02/17 21:14 Dose: 40 mg Senna (Senna -) 1 tab PO HS [facility] Last Admin: 05/02/17 21:14 Dose: 1 tab *Physical Exam Vital Signs Temperature 98.1 F 05/03/17 06:00 Pulse Rate 75 05/03/17 06:00 Respiratory Rate 18 05/03/17 06:00 Blood Pressure 107/63 05/03/17 06:00 O2 Sat by Pulse Oximetry (%) 98 05/02/17 21:00 - Physical Exam General Appearance: Yes: Disheveled, Other (smells of urine, red carpet threads scattered in hair, unkempt, initially having an apparent diffuse tonic-clonic seizure which lasts about 30 seconds and resolves without intervention, initially not wearing C-collar) HEENT: positive: Hearing Grossly Normal, Neck: positive: Trachea midline, Supple. negative: Tender, Rigid Respiratory/Chest: positive: Lungs Clear, Normal Breath Sounds. negative: Respiratory Distress, Crackles, Rhonchi, Stridor, Wheezing Cardiovascular: positive: Regular Rhythm, Regular Rate. negative: Murmur Gastrointestinal/Abdominal: positive: Normal Bowel Sounds, Soft. negative: Tender, Organomegaly, Pulsatile Mass, Guarding Musculoskeletal: positive: Normal Inspection. negative: Decreased Range of Motion, Vertebral Tenderness Extremity: positive: Normal Capillary Refill, Normal Inspection, Normal Range of Motion. negative: Tender, Cyanosis Integumentary: positive: Normal Color, Dry, Warm. negative: Erythema, Rash, Bruising Neurologic: Limited exam, not participating in full confrontation, move LUE slight more than right, ?3/5 on R, ? 2/5 on L, tactile stimulation intact but limited on R, gait deferred CBCD WBC 7.6 K/mm3 (4.0-10.0) 04/26/17 05:28 RBC 4.10 M/mm3 (3.60-5.2) 04/26/17 05:28 Hgb 12.7 GM/dL (10.7-15.3) 04/26/17 05:28 Hct 37.0 % (32.4-45.2) 04/26/17 05:28 MCV 90.4 fl (80-96) 04/26/17 05:28 MCHC 34.4 g/dl (32.0-36.0) 04/26/17 05:28 RDW 16.7 % (11.6-15.6) H 04/26/17 05:28 Plt Count 180 K/MM3 (134-434) 04/26/17 05:28 MPV 8.6 fl (7.5-11.1) 04/26/17 05:28 CMP Sodium 142 mmol/L (136-145) 05/03/17 06:30 Potassium 3.9 mmol/L (3.5-5.1) 05/03/17 06:30 Chloride 106 mmol/L (98-107) 05/03/17 06:30 Carbon Dioxide 30 mmol/L (21-32) 05/03/17 06:30 Anion Gap 6 (8-16) L 05/03/17 06:30 BUN 15 mg/dL (7-18) D 05/03/17 06:30 Creatinine 1.0 mg/dL (0.55-1.02) 05/03/17 06:30 Creat Clearance w eGFR > 60 (>60) 04/30/17 05:30 Calcium 10.0 mg/dL (8.5-10.1) 05/03/17 06:30 Total Bilirubin 0.3 mg/dL (0.2-1.0) D 04/30/17 05:30 AST 16 U/L (15-37) D 04/30/17 05:30 ALT 17 U/L (12-78) D 04/30/17 05:30 Alkaline Phosphatase 62 U/L (45-117) D 04/30/17 05:30 Total Protein 6.6 g/dl (6.4-8.2) 04/30/17 05:30 Albumin 2.7 g/dl (3.4-5.0) L 05/03/17 06:30 - RADIOLOGY MRI brain reviewed CT head as above CD, echo reviewed Medical Decision Making female of unknown age and name with unknown medical history who presented BIBA after her called 911 because she had fallen on the floor and was not able to pick herself up after being on the floor for reportedly 24 hours. EMS states that the patient was laying on the carpeted floor on their arrival on scene at her home. The explained that he found her on the floor and she said she felt fine, so he did not call 911 until he saw her in the same place on the floor therafter. The patient was minimally responsive in the ED but able to state she was having left-sided weakness for the past three days which is what caused her to fall but thought it would pass and did not come to the hospital. There was a question of generalized seizure and positive troponins. CT head completed and did not show acute changes. MRI demonstrated subacute infarcts L temporal/parietal, L thalamic CVA. She was admitted and sent to ICU for close management. She is able to tell me her name is Joe Isidro and name of president but did not know exact location or date. Able to tell birthdate. -Patient started on Keppra for seizures, getting 1000mg twice daily, -Vimpat 100mg twice daily and Depakote 1000mg twice daily can be continued, - Klonipin 0.5mg Q12 hrs for tremor -Continue ASA -Seizures stabilized -BP control, goal < 160/90 for now, < 140/90 as outpatient -PT/OT as tolerated -DVT ppx -Seen by psych as well -Will need rehab placement, Adult Protection services possibly to be involved as question of abandonment -Monitor mental status to see if more active later in the day
[2017-05-03] MEDS: ASPIRIN COATED 81 MG TABLET.EC PO SCH ×2 (10:33→10:59)
[2017-05-03] MEDS: METOPROLOL SUCCINATE 25 MG TAB.SR.24H (FP) PO SCH ×2 (10:33→11:00)
[2017-05-03] MEDS: clonazePAM 0.5 MG TABLET PO SCH ×3 (10:33→22:06)
[2017-05-03] MEDS: LACOSAMIDE 50 MG TABLET PO SCH ×3 (10:33→22:06)
[2017-05-03] MEDS: levETIRAcetam 500 MG TABLET (FP) PO SCH ×2 (10:41→10:58)
[2017-05-03] MEDS: DIVALPROEX SODIUM 500 MG TABLET E.C. PO SCH ×4 (10:59→22:12)
--- NOTE | 2017-05-03 11:56 | PN ---
Teaching Attending Note Name of Resident: Don Lopez ATTENDING PHYSICIAN STATEMENT I saw and evaluated the patient. I reviewed the resident's note and discussed the case with the resident. I agree with the resident's findings and plan as documented. SUBJECTIVE: Patient has no complaints. Twitching appears less frequent. OBJECTIVE: Vital Signs Period Temp Pulse Resp BP Sys/Levine Pulse Ox Last 24 Hr 97.9 F-99.2 F 65-75 16-18 99-112/62-74 98 HEART: S1S2, RRR LUNGS: Clear ABDOMEN: Soft, non-tender, non-distended, normal BS EXTREMITIES: 2+ pulses, warm, well-perfused, no edema NEUROLOGICAL: Mild slurred speech, right facial weakness, RUE/RLE strength 1/5, occasional twitching of RLE Current Medications Generic Name Dose Route Start Last Admin Trade Name Freq PRN Reason Stop Dose Admin Acetaminophen 650 mg 05/02/17 06:48 Tylenol - PO Q6H PRN FEVER OR PAIN Aspirin 81 mg 05/02/17 10:00 05/03/17 10:59 Ecotrin - PO Not Given DAILY CLEMENTE Clonazepam 0.5 mg 05/02/17 10:00 05/03/17 10:59 Klonopin - PO Not Given BID CLEMENTE Divalproex Sodium 1,000 mg 05/02/17 10:00 05/03/17 10:59 Depakote - PO Not Given BID CLEMENTE Ceftriaxone Sodium 1 gm/ 50 mls @ 100 mls/hr 05/03/17 11:30 Dextrose IVPB DAILY CLEMENTE Lacosamide 100 mg 05/02/17 10:00 05/03/17 11:00 Vimpat - PO Not Given BID CLEMENTE Levetiracetam 1,000 mg 05/02/17 10:00 05/03/17 10:58 Keppra - PO Not Given BID CLEMENTE Metoprolol Succinate 25 mg 05/02/17 10:00 05/03/17 11:00 Toprol Xl - PO Not Given DAILY CLEMENTE Rosuvastatin Calcium 40 mg 05/02/17 22:00 05/02/17 21:14 Crestor - PO 40 mg HS CLEMENTE Administration Senna 1 tab 05/02/17 22:00 05/02/17 21:14 Senna - PO 1 tab HS CLEMENTE Administration ASSESSMENT AND PLAN: This is a 66 year old woman with a history of alcohol abuse who presented to the ER after she was found on the floor by her . 1. 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 Psychiatry evaluation appreciated - she has limited/impaired capacity to make decisions on her behalf 2. Tonic-clonic seizures and right-sided myoclonic jerks - Continue Keppra, Depakote, Vimpat, Klonopin 3. Acute inferior wall STEMI - Echo shows normal LV, normal RV - Continue medical management - Continue aspirin, Toprol XL, Crestor 4. Lactic acidemia secondary to seizure - Resolved 5. Acute kidney injury likely secondary to dehydration - Resolved 6. Hypokalemia - Improved 7. Hypophosphatemia - Improved 8. Hypomagnesemia - Improved 9. Alcohol abuse - No signs of withdrawal 10. Rhabdomyolsis - Resolved 11. Polycythemia secondary to dehydration - Resolved
[2017-05-03] MEDS ORDERED: cefTRIAXone SODIUM 1 GM VIAL ONE (12:04)
[2017-05-03] MEDS ORDERED: DEXTROSE 5%-WATER - 50 ML IVPB ONE (12:05)
[2017-05-03] MEDS: CEFTRIAXONE 1 GM in DEXTROSE 5%-WATER - 50 ML IVPB SCH (12:09)
--- NOTE | 2017-05-03 13:19 | PN ---
Progress Note, ART COORDINATOR - Note Progress Note: Eyes open, staring off. Poor ability to establish/maintain eye contact.Limited abilty to respond to questions with rare responses, moderately impaired intelligibility. Oral holding with very delayed swallow onset, increasing risk of aspiration. (+) UA. Seizure medications. No twitching observed. REC: Dys puree/nectar thick liquid, ensure compact Only feed when alert and responsive Monitor po tolerance
[2017-05-03] MEDS: SODIUM CHLORIDE 1,000 ML IV SCH (15:38)
[2017-05-03] MEDS ORDERED: ROSUVASTATIN CA 10 MG TABLET (FP) ONE (20:42)
[2017-05-03] MEDS: ROSUVASTATIN CA 20 MG TABLET (FP) PO SCH (22:04)
[2017-05-03] MEDS: levETIRAcetam 500 MG/5 ML ORAL SOLUTION (UNIT-DOSE CUPS) PO SCH (22:05)
[2017-05-03] MEDS: SENNOSIDES 8.6MG TABLET (FP) PO SCH (22:06)
--- NOTE | 2017-05-04 06:34 | PN ---
Physical Exam: SUBJECTIVE: Patient seen and examined at bedside. Patient remains lethargic today with delayed speech. Has trouble following simple commands. OBJECTIVE: Vital Signs Period Temp Pulse Resp BP Sys/Levine Pulse Ox Last 24 Hr 98.6 F-101.1 F 68-91 16-22 99-110/62-71 98-98 GENERAL: The patient is Lethargic and oriented to self only. HEAD: Normal with no signs of trauma. EYES: extraocular movements intact, sclera anicteric, conjunctiva clear. No ptosis. NECK: Trachea midline, full range of motion, supple. LUNGS: Breath sounds equal, clear to auscultation bilaterally, no wheezes, no crackles, no accessory muscle use. HEART: Regular rate and rhythm, S1, S2 without murmur, rub or gallop. ABDOMEN: Soft, nontender, nondistended, normoactive bowel sounds, no guarding, no rebound, no hepatosplenomegaly, no masses. EXTREMITIES: 2+ pulses, warm, well-perfused, no edema. NEUROLOGICAL: Unable to perform full neuro exam as patient unable to cooperate. SKIN: Warm, dry, normal turgor, no rashes or lesions noted Laboratory Results - last 24 hr 05/03/17 06:30 Sodium 142 Potassium 3.9 Chloride 106 Carbon Dioxide 30 Anion Gap 6 L BUN 15 D Creatinine 1.0 Random Glucose 93 Calcium 10.0 Phosphorus 4.6 Magnesium 2.0 Albumin 2.7 L Active Medications Generic Name Dose Route Start Last Admin Trade Name Freq PRN Reason Stop Dose Admin Acetaminophen 650 mg 05/02/17 06:48 Tylenol - PO Q6H PRN FEVER OR PAIN Aspirin 81 mg 05/02/17 10:00 05/03/17 10:59 Ecotrin - PO Not Given DAILY CLEMENTE Clonazepam 0.5 mg 05/02/17 10:00 05/03/17 22:06 Klonopin - PO 0.5 mg BID CLEMENTE Administration Divalproex Sodium 1,000 mg 05/02/17 10:00 05/03/17 22:12 Depakote - PO 1,000 mg BID CLEMENTE Administration Ceftriaxone Sodium 1 gm/ 50 mls @ 100 mls/hr 05/03/17 11:30 05/03/17 12:09 Dextrose IVPB 100 mls/hr DAILY CLEMENTE Administration Sodium Chloride 1,000 mls @ 75 mls/hr 05/03/17 15:30 05/03/17 15:38 Normal Saline - IV 75 mls/hr ASDIR CLEMENTE Administration Lacosamide 100 mg 05/02/17 10:00 05/03/17 22:06 Vimpat - PO 100 mg BID CLEMENTE Administration Levetiracetam 1,000 mg 05/03/17 22:00 05/03/17 22:05 Keppra Oral Solution - PO 1,000 mg BID CLEMENTE Administration Metoprolol Succinate 25 mg 05/02/17 10:00 05/03/17 11:00 Toprol Xl - PO Not Given DAILY CLEMENTE Rosuvastatin Calcium 40 mg 05/02/17 22:00 05/03/17 22:04 Crestor - PO 40 mg HS CLEMENTE Administration Senna 1 tab 05/02/17 22:00 05/03/17 22:06 Senna - PO 1 tab HS CLEMENTE Administration ASSESSMENT/PLAN: 66 yo f w/PMH ETOH abuse w/ rest of PMH unknown presents s/p fall for 24 hours admitted for CVA with myotonic movments and residual right sided weakness. #New onset lethargy and fever to 101, likely 2/2 UTI -Patient afebrile for >24h -repeat UA Not indiciative of UTI -repeat ucx growing E. Coli -repeat bcx growing coagulase negative staph -because patient is more lethargic over the past two days, will treat the otherwise asymptomatic UTI empirically -Rocephin 1g daily -NS @ 75 as patient is not eating well -CT head obtained to rule out worsening stroke as cause of lethargy; was negative 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, parietal and thalamic CVA -MRI shows infarcts in left temporal and parietal lobes as well as in left thalmus -tonic movements of right limbs absent today -Will follow neurology reccs to attempt control of tonic movements: -Keppra 1g PO BID -Depakote 1g PO BID -lacosamide 100mg PO BID -klonopin .5 BID PO added -RPT CT head negative #Troponinemia 2/2 STEMI- resolved -Troponin peak at 2.7 documented -No anginal symptoms currently -no ischemic workup indicated at this time as per cardio -ASA 81 -Toprolol XL 25mg -anticoagulation contraindicated in the setting of acute stroke #Lactic Acidosis- resolved -Lactic acid 1.1 now #Elevated CK 2/2 acute [place] vs seizure activity- resolved -ck trending down #NICOLÁS-resolved -cr. .9 now #FEN -NS @ 75 -monitor lytes -Dysphagia puree with nectar consistency liquids #Propylaxsis -SCDs, heparin c/i at this time in the setting of CVA -GI- not indicated at this time -OOB to chair #Dispo -patient admitted for workup and treatment of acute stroke. -Multiple attempts to reach the family have been made by multiple health care teams. -Psych has deemed that the patient does not have the capacity to make her own decisions. We must defer to an advanced directive or patient's to make decisions. -Case management to contact adult protective services as patient seems to have been abandoned by Problem List - Problems (1) CVA (cerebral vascular accident) Code(s): I63.9 - CEREBRAL INFARCTION, UNSPECIFIED Qualifiers: CVA mechanism: unspecified Qualified Code(s): I63.9 - Cerebral infarction, unspecified; I63.9 - Cerebral infarction, unspecified; I63.9 - Cerebral infarction, unspecified; I63.9 - Cerebral infarction, unspecified (2) Seizure Code(s): R56.9 - UNSPECIFIED CONVULSIONS Visit type - Emergency Visit Emergency Visit: Yes ED Registration Date: 04/21/17 Care time: The patient presented to the Emergency Department on the above date and was hospitalized for further evaluation of their emergent condition. - New Patient This patient is new to me today: No - Critical Care Critical Care patient: No
[2017-05-04 07:34] LABS: MCH 29.6 pg (25.7-33.7); MCHC 33.5 g/dl (32.0-36.0); MEAN CELL VOLUME 88.4 fl (80-96); MEAN PLT VOLUME 8.7 fl (7.5-11.1); PLATELET COUNT 154 K/MM3 (134-434); RDW 16.5 % (11.6-15.6); WHITE BLOOD COUNT 14.6 K/mm3 (4.0-10.0)
[2017-05-04 08:02] LABS: ALBUMIN 2.6 g/dl (3.4-5.0); ANION GAP 7 (8-16); CALCIUM 9.7 mg/dL (8.5-10.1); CO2 27 mmol/L (21-32); GLUCOSE,RANDOM 108 mg/dL (74-106); PHOSPHOROUS 4.2 mg/dL (2.5-4.9); SGOT/AST 14 U/L (15-37); SGPT/ALT 13 U/L (12-78)
[2017-05-04 08:03] LABS: ALK PHOS 66 U/L (45-117); BILIRUBIN,TOTAL 0.3 mg/dL (0.2-1.0); TOT PROT 7.4 g/dl (6.4-8.2)
[2017-05-04] MEDS ORDERED: cefTRIAXone SODIUM 1 GM VIAL ONE (09:38)
[2017-05-04] MEDS ORDERED: DEXTROSE 5%-WATER - 50 ML IVPB ONE (09:38)
[2017-05-04] MEDS ORDERED: PT OWN MED DRAWER 7, Y5N ONE ×2 (09:38→09:56)
[2017-05-04] MEDS: CEFTRIAXONE 1 GM in DEXTROSE 5%-WATER - 50 ML IVPB SCH (09:52)
[2017-05-04] MEDS: levETIRAcetam 500 MG/5 ML ORAL SOLUTION (UNIT-DOSE CUPS) PO SCH ×2 (09:53→21:07)
[2017-05-04] MEDS: LACOSAMIDE 50 MG TABLET PO SCH ×2 (09:53→21:07)
[2017-05-04] MEDS: ASPIRIN COATED 81 MG TABLET.EC PO SCH (09:53)
[2017-05-04] MEDS: METOPROLOL SUCCINATE 25 MG TAB.SR.24H (FP) PO SCH (09:53)
[2017-05-04] MEDS: clonazePAM 0.5 MG TABLET PO SCH (09:53)
[2017-05-04] MEDS: DIVALPROEX SODIUM 500 MG TABLET E.C. PO SCH ×2 (09:54→21:07)
--- NOTE | 2017-05-04 12:37 | PN ---
Teaching Attending Note Name of Resident: Don Lopez ATTENDING PHYSICIAN STATEMENT I saw and evaluated the patient. I reviewed the resident's note and discussed the case with the resident. I agree with the resident's findings and plan as documented. SUBJECTIVE:lethargic, slow to answer. states no on all questioning OBJECTIVE: Last Vital Signs Temp Pulse Resp BP Pulse Ox 98.2 F 85 20 110/70 98 05/04/17 06:00 05/04/17 06:00 05/04/17 06:00 05/04/17 06:00 05/04/17 00:36 General lethargic, slow to respond. slurred speech. responsive to verbal and tactile stimuli CV S1 S2 RRR no murmur/rub/gallop Lungs CTA B/L no wheezing/rales/rhonchi Neuro unable to assess CN. flaccid paralysis of RUE/RLE 1/5 LUE and LLE. unable to assess sensation. not following all commands ASSESSMENT AND PLAN: 66 yo F with PMH alcohol abuse who presented to the ER after she was found on the floor by her . 1. Lethargy- most likely due to UTI however concern for stroke due to worsening neurological exam. stat CT head ordered. d/w neurology who will also evaluate. 2. Acute left temporal/parietal ischemic CVA with right hemiparesis- repeat Head CT. neuro on board. cont asa, statin. PT and speech therapy 3. Tonic-clonic seizures and right-sided myoclonic jerks- resolved. no more appreciated. Continue Keppra, Depakote, Vimpat, Klonopin 4. sepsis due to UTI- Tm 101.1 with leukocytosis. started on Ceftriaxone day 2. Ucx showing lombardi-sensitive UTI. cont for now 5. Acute inferior wall STEMI- no cardiac intervention at this time. Continue aspirin, Toprol XL, Crestor 6. Acute kidney injury likely secondary to dehydration- Resolved 7. Alcohol abuse- No signs of withdrawal 8. DVT ppx- unclear why not on ppx at this time. will start lovenox once head CT ensure there is no bleed. 9. pt does not have decision making capacity determined by psych. pt should go to [facility] however family is unreachable. CM/SW aware and working on guardianship placement
--- NOTE | 2017-05-04 13:05 | PN ---
Progress Note, GAS STATION SERVICE ATTENDANT - Note Progress Note: Selected Entries 05/03/17 05/03/17 05/03/17 06:00 10:00 10:44 Breakfast 75% Lunch Supper Temperature 98.1 F 99.2 F 05/03/17 05/03/17 05/03/17 15:09 18:00 20:50 Breakfast Lunch 75% Supper 25% Temperature 98.7 F 99.5 F 05/03/17 05/04/17 05/04/17 22:35 02:00 06:00 Breakfast Lunch Supper Temperature 101.1 F H 98.6 F 98.2 F 05/04/17 05/04/17 10:00 11:49 Breakfast 25% Lunch Supper Temperature [address] results pending. May be secondary to seizure medications?
--- NOTE | 2017-05-04 14:02 | PN ---
Progress Note (short form) - Note Progress Note: Neurology This is a female of unknown age and name with unknown medical history who presented BIBA after her called 911 because she had fallen on the floor and was not able to pick herself up after being on the floor for reportedly 24 hours. EMS states that the patient was laying on the carpeted floor on their arrival on scene at her home. The explained that he found her on the floor and she said she felt fine, so he did not call 911 until he saw her in the same place on the floor therafter. The patient was minimally responsive in the ED but able to state she was having left-sided weakness for the past three days which is what caused her to fall but thought it would pass and did not come to the hospital. She was out of TPA window. MRI completed and showed subacute infarcts L temporal/parietal, L thalamic and she does have right sided deficits. There was some facial twitching and patient put on Keppra, increased to 1000mg twice a day, Vimpat also started 100mg twice daily, Depakote also started with good control. Patient on ASA 81mg. CD without hemodynamically significant stenosis, Echo reviewed and LV function normal. AED' s converted to PO. Possibly for rehab placement. Patient with lethargy this morning, overnight spiked fever and increase in Wbc. Being treated for UTI and put on Ceftriaxone. Due to diminished mental status, CT head ordered, did not show acute changes. Klonipin also held as patient somnolent this AM. Active Medications Acetaminophen (Tylenol -) 650 mg PO Q6H PRN PRN Reason: FEVER OR PAIN Aspirin (Ecotrin -) 81 mg PO DAILY [facility] Last Admin: 05/04/17 09:53 Dose: 81 mg Clonazepam (Klonopin -) 0.5 mg PO BID [facility] Last Admin: 05/04/17 09:53 Dose: Not Given Divalproex Sodium (Depakote -) 1,000 mg PO BID [facility] Last Admin: 05/04/17 09:54 Dose: 1,000 mg Ceftriaxone Sodium 1 gm/ (Dextrose) 50 mls @ 100 mls/hr IVPB DAILY [facility] Last Admin: 05/04/17 09:52 Dose: 100 mls/hr Sodium Chloride (Normal Saline -) 1,000 mls @ 75 mls/hr IV ASDIR [facility] Last Admin: 05/03/17 15:38 Dose: 75 mls/hr Lacosamide (Vimpat -) 100 mg PO BID [facility] Last Admin: 05/04/17 09:53 Dose: 100 mg Levetiracetam (Keppra Oral Solution -) 1,000 mg PO BID [facility] Last Admin: 05/04/17 09:53 Dose: 1,000 mg Metoprolol Succinate (Toprol Xl -) 25 mg PO DAILY [facility] Last Admin: 05/04/17 09:53 Dose: 25 mg Rosuvastatin Calcium (Crestor -) 40 mg PO [facility] Last Admin: 05/03/17 22:04 Dose: 40 mg Senna (Senna -) 1 tab PO [facility] Last Admin: 05/03/17 22:06 Dose: 1 tab *Physical Exam Vital Signs Temperature 98.1 F 05/03/17 06:00 Pulse Rate 75 05/03/17 06:00 Respiratory Rate 18 05/03/17 06:00 Blood Pressure 107/63 05/03/17 06:00 O2 Sat by Pulse Oximetry (%) 98 05/02/17 21:00 - Physical Exam General Appearance: Yes: Disheveled, HEENT: positive: Hearing Grossly Normal, Neck: positive: Trachea midline, Supple. negative: Tender, Rigid Respiratory/Chest: positive: Lungs Clear, Normal Breath Sounds. negative: Respiratory Distress, Crackles, Rhonchi, Stridor, Wheezing Cardiovascular: positive: Regular Rhythm, Regular Rate. negative: Murmur Gastrointestinal/Abdominal: positive: Normal Bowel Sounds, Soft. negative: Tender, Organomegaly, Pulsatile Mass, Guarding Musculoskeletal: positive: Normal Inspection. negative: Decreased Range of Motion, Vertebral Tenderness Extremity: positive: Normal Capillary Refill, Normal Inspection, Normal Range of Motion. negative: Tender, Cyanosis Integumentary: positive: Normal Color, Dry, Warm. negative: Erythema, Rash, Bruising Neurologic: Limited exam, not participating in full confrontation, move LUE slight more than right, ?3/5 on R, ? 2/5 on L, tactile stimulation intact but limited on R, gait deferred CBCD WBC 14.6 K/mm3 (4.0-10.0) H D 05/04/17 07:20 RBC 4.56 M/mm3 (3.60-5.2) 05/04/17 07:20 Hgb 13.5 GM/dL (10.7-15.3) 05/04/17 07:20 Hct 40.3 % (32.4-45.2) 05/04/17 07:20 MCV 88.4 fl (80-96) 05/04/17 07:20 MCHC 33.5 g/dl (32.0-36.0) 05/04/17 07:20 RDW 16.5 % (11.6-15.6) H 05/04/17 07:20 Plt Count 154 K/MM3 (134-434) 05/04/17 07:20 MPV 8.7 fl (7.5-11.1) 05/04/17 07:20 CMP Sodium 146 mmol/L (136-145) H 05/04/17 07:20 Potassium 3.7 mmol/L (3.5-5.1) 05/04/17 07:20 Chloride 112 mmol/L (98-107) H 05/04/17 07:20 Carbon Dioxide 27 mmol/L (21-32) 05/04/17 07:20 Anion Gap 7 (8-16) L 05/04/17 07:20 BUN 14 mg/dL (7-18) 05/04/17 07:20 Creatinine 1.0 mg/dL (0.55-1.02) 05/04/17 07:20 Creat Clearance w eGFR 55.82 (>60) 05/04/17 07:20 Calcium 9.7 mg/dL (8.5-10.1) 05/04/17 07:20 Total Bilirubin 0.3 mg/dL (0.2-1.0) 05/04/17 07:20 AST 14 U/L (15-37) L 05/04/17 07:20 ALT 13 U/L (12-78) D 05/04/17 07:20 Alkaline Phosphatase 66 U/L (45-117) 05/04/17 07:20 Total Protein 7.4 g/dl (6.4-8.2) 05/04/17 07:20 Albumin 2.6 g/dl (3.4-5.0) L 05/04/17 07:20 - RADIOLOGY MRI brain reviewed CT head repeated and reviewed CD, echo reviewed Medical Decision Making female of unknown age and name with unknown medical history who presented BIBA after her called 911 because she had fallen on the floor and was not able to pick herself up after being on the floor for reportedly 24 hours. EMS states that the patient was laying on the carpeted floor on their arrival on scene at her home. The explained that he found her on the floor and she said she felt fine, so he did not call 911 until he saw her in the same place on the floor therafter. The patient was minimally responsive in the ED but able to state she was having left-sided weakness for the past three days which is what caused her to fall but thought it would pass and did not come to the hospital. There was a question of generalized seizure and positive troponins. CT head completed and did not show acute changes. MRI demonstrated subacute infarcts L temporal/parietal, L thalamic CVA. She was admitted and sent to ICU for close management. She is able to tell me her name is Joe Isidro and name of president but did not know exact location or date. Able to tell birthdate. -Patient started on Keppra for seizures, getting 1000mg twice daily, -Vimpat 100mg twice daily and Depakote 1000mg twice daily can be continued, - Klonipin on hold -Repeat CT head stable -Continue ASA -Seizures stabilized -BP control, goal < 160/90 for now, < 140/90 as outpatient -PT/OT as tolerated -Continue Ceftriaxone -Monitor fever, wbc -Discharge on hold - DVT ppx
[2017-05-04] MEDS ORDERED: DEXTROSE 5%-0.45% SALINE 1,000 ML IV SCH (16:30)
[2017-05-04] MEDS: ENOXAPARIN NA (PORCINE) 40 MG/0.4 ML DISP.SYRIN SQ SCH (18:16)
[2017-05-04] MEDS: SODIUM CHLORIDE 1,000 ML IV SCH (18:18)
[2017-05-04] MEDS: SENNOSIDES 8.6MG TABLET (FP) PO SCH (21:06)
[2017-05-04] MEDS: ROSUVASTATIN CA 20 MG TABLET (FP) PO SCH (21:07)
--- NOTE | 2017-05-05 06:26 | PN ---
Physical Exam: SUBJECTIVE: Patient seen and examined at bedside. Patient slightly improved compared with yesterday, but is still lethargic. Has trouble following commands with delayed responses to questions. OBJECTIVE: Vital Signs Period Temp Pulse Resp BP Sys/Levine Pulse Ox Last 24 Hr 98.1 F-100.2 F 66-81 16-24 100-131/59-85 99-99 GENERAL: The patient is awake, alert, and fully oriented, in no acute distress. HEAD: Normal with no signs of trauma. EYES: extraocular movements intact, sclera anicteric, conjunctiva clear. No ptosis. NECK: Trachea midline, full range of motion, supple. LUNGS: Breath sounds equal, clear to auscultation bilaterally, no wheezes, no crackles, no accessory muscle use. HEART: Regular rate and rhythm, S1, S2 without murmur, rub or gallop. ABDOMEN: Soft, nontender, nondistended, normoactive bowel sounds, no guarding, no rebound, no hepatosplenomegaly, no masses. EXTREMITIES: 2+ pulses, warm, well-perfused, no edema. NEUROLOGICAL: Cranial nerves II through X grossly intact. Normal speech, gait not observed. SKIN: Warm, dry, normal turgor, no rashes or lesions noted Laboratory Results - last 24 hr 05/04/17 05/04/17 07:20 07:20 WBC 14.6 H D RBC 4.56 Hgb 13.5 Hct 40.3 MCV 88.4 MCH 29.6 MCHC 33.5 RDW 16.5 H Plt Count 154 MPV 8.7 Sodium 146 H Potassium 3.7 Chloride 112 H Carbon Dioxide 27 Anion Gap 7 L BUN 14 Creatinine 1.0 Creat Clearance w eGFR 55.82 Random Glucose 108 H Calcium 9.7 Phosphorus 4.2 Magnesium 2.0 Total Bilirubin 0.3 AST 14 L ALT 13 D Alkaline Phosphatase 66 Total Protein 7.4 Albumin 2.6 L Active Medications Generic Name Dose Route Start Last Admin Trade Name Freq PRN Reason Stop Dose Admin Acetaminophen 650 mg 05/02/17 06:48 Tylenol - PO Q6H PRN FEVER OR PAIN Aspirin 81 mg 05/02/17 10:00 05/04/17 09:53 Ecotrin - PO 81 mg DAILY [facility] Administration Clonazepam 0.5 mg 05/02/17 10:00 05/04/17 09:53 Klonopin - PO Not Given BID [facility] Divalproex Sodium 1,000 mg 05/02/17 10:00 05/04/17 21:07 Depakote - PO 1,000 mg BID [facility] Administration Enoxaparin Sodium 40 mg 05/04/17 16:30 05/04/17 18:16 Lovenox - SQ 40 mg DAILY [facility] Administration Ceftriaxone Sodium 1 gm/ 50 mls @ 100 mls/hr 05/03/17 11:30 05/04/17 09:52 Dextrose IVPB 100 mls/hr DAILY [facility] Administration Dextrose/Sodium Chloride 1,000 mls @ 100 mls/hr 05/04/17 16:30 05/04/17 18:14 D5-1/2ns - IV 100 mls/hr ASDIR [facility] Administration Lacosamide 100 mg 05/02/17 10:00 05/04/17 21:07 Vimpat - PO 100 mg BID [facility] Administration Levetiracetam 1,000 mg 05/03/17 22:00 05/04/17 21:07 Keppra Oral Solution - PO 1,000 mg BID [facility] Administration Metoprolol Succinate 25 mg 05/02/17 10:00 05/04/17 09:53 Toprol Xl - PO 25 mg DAILY [facility] Administration Rosuvastatin Calcium 40 mg 05/02/17 22:00 05/04/17 21:07 Crestor - PO 40 mg HS [facility] Administration Senna 1 tab 05/02/17 22:00 05/04/17 21:06 Senna - PO 1 tab HS [facility] Administration ASSESSMENT/PLAN: 66 yo f w/PMH ETOH abuse w/ rest of PMH unknown presents s/p fall for 24 hours admitted for CVA with myotonic movments and residual right sided weakness. #New onset lethargy and fever to 101, likely 2/2 UTI -Patient afebrile for >24h -repeat UA Not indiciative of UTI -repeat ucx growing E. Coli -repeat bcx growing coagulase negative staph -because patient is more lethargic over the past two days, will treat the otherwise asymptomatic UTI empirically -Rocephin 1g daily -NS @ 75 as patient is not eating well -CT head obtained to rule out worsening stroke as cause of lethargy; was negative 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, parietal and thalamic CVA -MRI shows infarcts in left temporal and parietal lobes as well as in left thalmus -tonic movements of right limbs absent today -Will follow neurology reccs to attempt control of tonic movements: -Keppra 1g PO BID -Depakote 1g PO BID -lacosamide 100mg PO BID -klonopin .5 BID PO added -RPT CT head negative #Troponinemia 2/2 STEMI- resolved -Troponin peak at 2.7 documented -No anginal symptoms currently -no ischemic workup indicated at this time as per cardio -ASA 81 -Toprolol XL 25mg -anticoagulation contraindicated in the setting of acute stroke #Lactic Acidosis- resolved -Lactic acid 1.1 now #Elevated CK 2/2 acute RI vs seizure activity- resolved -ck trending down #NICOLÁS-resolved -cr. .9 now #FEN -NS @ 75 -monitor lytes -Dysphagia puree with nectar consistency liquids #Propylaxsis -SCDs, heparin c/i at this time in the setting of CVA -GI- not indicated at this time -OOB to chair #Dispo -patient admitted for workup and treatment of acute stroke. -Multiple attempts to reach the family have been made by multiple health care teams. -Psych has deemed that the patient does not have the capacity to make her own decisions. We must defer to an advanced directive or patient's to make decisions. -Case management to contact adult protective services as patient seems to have been abandoned by Problem List - Problems (1) CVA (cerebral vascular accident) Code(s): I63.9 - CEREBRAL INFARCTION, UNSPECIFIED Qualifiers: CVA mechanism: unspecified Qualified Code(s): I63.9 - Cerebral infarction, unspecified; I63.9 - Cerebral infarction, unspecified; I63.9 - Cerebral infarction, unspecified; I63.9 - Cerebral infarction, unspecified (2) Seizure Code(s): R56.9 - UNSPECIFIED CONVULSIONS Visit type - Emergency Visit Emergency Visit: Yes ED Registration Date: 04/21/17 Care time: The patient presented to the Emergency Department on the above date and was hospitalized for further evaluation of their emergent condition. - New Patient This patient is new to me today: No - Critical Care Critical Care patient: No
[2017-05-05 08:39] LABS: BASOPHIL 1.1 % (0-2.0); EOSINOPHIL 0.4 % (0-4.5); MCH 29.1 pg (25.7-33.7); MCHC 32.9 g/dl (32.0-36.0); MEAN CELL VOLUME 88.4 fl (80-96); MEAN PLT VOLUME 8.9 fl (7.5-11.1); NEUTROPHILS 75.2 % (42.8-82.8); PLATELET COUNT 131 K/MM3 (134-434); RDW 16.1 % (11.6-15.6); WHITE BLOOD COUNT 10.2 K/mm3 (4.0-10.0)
[2017-05-05 08:56] LABS: ANION GAP 5 (8-16); CALCIUM 9.1 mg/dL (8.5-10.1); CO2 29 mmol/L (21-32); CREATININE 0.9 mg/dL (0.55-1.02); GLUCOSE,RANDOM 151 mg/dL (74-106)
[2017-05-05] MEDS ORDERED: cefTRIAXone SODIUM 1 GM VIAL ONE (09:29)
[2017-05-05] MEDS ORDERED: DEXTROSE 5%-WATER - 50 ML IVPB ONE (09:29)
[2017-05-05] MEDS: CEFTRIAXONE 1 GM in DEXTROSE 5%-WATER - 50 ML IVPB SCH (09:38)
[2017-05-05] MEDS: LACOSAMIDE 50 MG TABLET PO SCH ×2 (09:38→22:25)
[2017-05-05] MEDS: ENOXAPARIN NA (PORCINE) 40 MG/0.4 ML DISP.SYRIN SQ SCH (09:38)
[2017-05-05] MEDS: ASPIRIN COATED 81 MG TABLET.EC PO SCH (09:38)
[2017-05-05] MEDS: METOPROLOL SUCCINATE 25 MG TAB.SR.24H (FP) PO SCH (09:38)
[2017-05-05] MEDS: levETIRAcetam 500 MG/5 ML ORAL SOLUTION (UNIT-DOSE CUPS) PO SCH ×2 (09:39→23:20)
[2017-05-05] MEDS: DIVALPROEX SODIUM 500 MG TABLET E.C. PO SCH ×2 (09:39→22:24)
--- NOTE | 2017-05-05 10:09 | PN ---
Progress Note (short form) - Note Progress Note: Neurology This is a female of unknown age and name with unknown medical history who presented BIBA after her called 911 because she had fallen on the floor and was not able to pick herself up after being on the floor for reportedly 24 hours. EMS states that the patient was laying on the carpeted floor on their arrival on scene at her home. The explained that he found her on the floor and she said she felt fine, so he did not call 911 until he saw her in the same place on the floor therafter. The patient was minimally responsive in the ED but able to state she was having left-sided weakness for the past three days which is what caused her to fall but thought it would pass and did not come to the hospital. She was out of TPA window. MRI completed and showed subacute infarcts L temporal/parietal, L thalamic and she does have right sided deficits. There was some facial twitching and patient put on Keppra, increased to 1000mg twice a day, Vimpat also started 100mg twice daily, Depakote also started with good control. Patient on ASA 81mg. CD without hemodynamically significant stenosis, Echo reviewed and LV function normal. AED' s converted to PO. Possibly for rehab placement. Patient with lethargy this morning, overnight spiked fever and increase in Wbc. Being treated for UTI and put on Ceftriaxone. Repeat CT head completed due to diminished mental status and did not show acute changes. Klonipin also held as patient somnolent and more awake and alert today. Says she's fine but won't engage in further mental status testing. Today is day 3 of Abx, likely for 2 more days. Active Medications Acetaminophen (Tylenol -) 650 mg PO Q6H PRN PRN Reason: FEVER OR PAIN Aspirin (Ecotrin -) 81 mg PO DAILY [facility] Last Admin: 05/05/17 09:38 Dose: 81 mg Clonazepam (Klonopin -) 0.5 mg PO BID [facility] Last Admin: 05/04/17 09:53 Dose: Not Given Divalproex Sodium (Depakote -) 1,000 mg PO BID [facility] Last Admin: 05/05/17 09:39 Dose: 1,000 mg Enoxaparin Sodium (Lovenox -) 40 mg SQ DAILY [facility] Last Admin: 05/05/17 09:38 Dose: 40 mg Ceftriaxone Sodium 1 gm/ (Dextrose) 50 mls @ 100 mls/hr IVPB DAILY [facility] Last Admin: 05/05/17 09:38 Dose: 100 mls/hr Dextrose/Sodium Chloride (D5-1/2ns -) 1,000 mls @ 100 mls/hr IV ASDIR [facility] Last Admin: 05/04/17 18:14 Dose: 100 mls/hr Lacosamide (Vimpat -) 100 mg PO BID [facility] Last Admin: 05/05/17 09:38 Dose: 100 mg Levetiracetam (Keppra Oral Solution -) 1,000 mg PO BID [facility] Last Admin: 05/05/17 09:39 Dose: 1,000 mg Metoprolol Succinate (Toprol Xl -) 25 mg PO DAILY [facility] Last Admin: 05/05/17 09:38 Dose: 25 mg Rosuvastatin Calcium (Crestor -) 40 mg PO HS [facility] Last Admin: 05/04/17 21:07 Dose: 40 mg Senna (Senna -) 1 tab PO [facility] Last Admin: 05/04/17 21:06 Dose: 1 tab *Physical Exam Vital Signs Temperature 98.3 F 05/05/17 06:00 Pulse Rate 66 05/05/17 06:00 Respiratory Rate 20 05/05/17 06:00 Blood Pressure 102/59 05/05/17 06:00 O2 Sat by Pulse Oximetry (%) 99 05/04/17 21:00 - Physical Exam General Appearance: Yes: Disheveled, HEENT: positive: Hearing Grossly Normal, Neck: positive: Trachea midline, Supple. negative: Tender, Rigid Respiratory/Chest: positive: Lungs Clear, Normal Breath Sounds. negative: Respiratory Distress, Crackles, Rhonchi, Stridor, Wheezing Cardiovascular: positive: Regular Rhythm, Regular Rate. negative: Murmur Gastrointestinal/Abdominal: positive: Normal Bowel Sounds, Soft. negative: Tender, Organomegaly, Pulsatile Mass, Guarding Musculoskeletal: positive: Normal Inspection. negative: Decreased Range of Motion, Vertebral Tenderness Extremity: positive: Normal Capillary Refill, Normal Inspection, Normal Range of Motion. negative: Tender, Cyanosis Integumentary: positive: Normal Color, Dry, Warm. negative: Erythema, Rash, Bruising Neurologic: Limited exam, not participating in full confrontation, move LUE slight more than right, ?3/5 on R, ? 2/5 on L, tactile stimulation intact but limited on R, gait deferred CBCD WBC 10.2 K/mm3 (4.0-10.0) H D 05/05/17 08:22 RBC 4.15 M/mm3 (3.60-5.2) 05/05/17 08:22 Hgb 12.1 GM/dL (10.7-15.3) D 05/05/17 08:22 Hct 36.7 % (32.4-45.2) 05/05/17 08:22 MCV 88.4 fl (80-96) 05/05/17 08:22 MCHC 32.9 g/dl (32.0-36.0) 05/05/17 08:22 RDW 16.1 % (11.6-15.6) H 05/05/17 08:22 Plt Count 131 K/MM3 (134-434) L 05/05/17 08:22 MPV 8.9 fl (7.5-11.1) 05/05/17 08:22 CMP Sodium 145 mmol/L (136-145) 05/05/17 08:22 Potassium 3.3 mmol/L (3.5-5.1) L 05/05/17 08:22 Chloride 111 mmol/L (98-107) H 05/05/17 08:22 Carbon Dioxide 29 mmol/L (21-32) 05/05/17 08:22 Anion Gap 5 (8-16) L 05/05/17 08:22 BUN 9 mg/dL (7-18) D 05/05/17 08:22 Creatinine 0.9 mg/dL (0.55-1.02) 05/05/17 08:22 Creat Clearance w eGFR 55.82 (>60) 05/04/17 07:20 Calcium 9.1 mg/dL (8.5-10.1) 05/05/17 08:22 Total Bilirubin 0.3 mg/dL (0.2-1.0) 05/04/17 07:20 AST 14 U/L (15-37) L 05/04/17 07:20 ALT 13 U/L (12-78) D 05/04/17 07:20 Alkaline Phosphatase 66 U/L (45-117) 05/04/17 07:20 Total Protein 7.4 g/dl (6.4-8.2) 05/04/17 07:20 Albumin 2.6 g/dl (3.4-5.0) L 05/04/17 07:20 - RADIOLOGY MRI brain reviewed CT head repeated and reviewed CD, echo reviewed Medical Decision Making female of unknown age and name with unknown medical history who presented BIBA after her called 911 because she had fallen on the floor and was not able to pick herself up after being on the floor for reportedly 24 hours. EMS states that the patient was laying on the carpeted floor on their arrival on scene at her home. The explained that he found her on the floor and she said she felt fine, so he did not call 911 until he saw her in the same place on the floor therafter. The patient was minimally responsive in the ED but able to state she was having left-sided weakness for the past three days which is what caused her to fall but thought it would pass and did not come to the hospital. There was a question of generalized seizure and positive troponins. CT head completed and did not show acute changes. MRI demonstrated subacute infarcts L temporal/parietal, L thalamic CVA. -Patient started on Keppra for seizures, getting 1000mg twice daily, -Vimpat 100mg twice daily and Depakote 1000mg twice daily can be continued, -Klonipin on hold -Repeat CT head stable -Continue ASA -Seizures stabilized -BP control, goal < 160/90 for now, < 140/90 as outpatient -PT/OT as tolerated -Continue Ceftriaxone -Monitor fever-low grade overnight, wbc count improving -Discharge on hold -DVT ppx
--- NOTE | 2017-05-05 12:57 | PN ---
Teaching Attending Note Name of Resident: Don Lopez ATTENDING PHYSICIAN STATEMENT I saw and evaluated the patient. I reviewed the resident's note and discussed the case with the resident. I agree with the resident's findings and plan as documented. SUBJECTIVE:more alert and responsive but not at baseline. offers no complaints. OBJECTIVE: Last Vital Signs Temp Pulse Resp BP Pulse Ox 98.1 F 70 16 105/60 96 05/05/17 09:00 05/05/17 09:00 05/05/17 09:00 05/05/17 09:00 05/05/17 09:00 General drowsy but more alert A&O x1 (self) CV S1 S2 RRR no murmur/rub/gallop Lungs CTA B/L no wheezing/rales/rhonchi Neuro slow to respond to verbal questioning. +facial droop. follows some commands. strength 2/5 LUE/LLE flaccid RUE/RLE. sensation appears absent on R side evident by not withdrawing to pain. ASSESSMENT AND PLAN: 66 yo F with PMH alcohol abuse who presented to the ER after she was found on the floor by her . 1. Lethargy- most likely due to UTI. CT head negative for acute pathology. more alert today but not at baseline. Klonopin held yesterday, spoke with neuro. will continue to hold at this time as there are no myotonic twitching. will monitor mental status if it does not improve will attempt to decrease antieleptics. cont low dose D51/2NS for now until oral intake improves. 2. Acute left temporal/parietal ischemic CVA with right hemiparesis- neuro on board. cont asa, statin. PT and speech therapy 3. Tonic-clonic seizures and right-sided myoclonic jerks- resolved. no more appreciated. Klonopin now d/c. Continue Keppra, Depakote, Vimpat, 4. Hypokalemia- Kcl to IVF 5. sepsis due to UTI- afebrile. leukocytosis improving. on Ceftriaxone day 3. Ucx showing lombardi-sensitive UTI. cont for now 6. Acute inferior wall STEMI- no cardiac intervention at this time. Continue aspirin, Toprol XL, Crestor 7. Acute kidney injury likely secondary to dehydration- Resolved 8. Alcohol abuse- No signs of withdrawal 9. DVT ppx- lovenox 10. pt does not have decision making capacity determined by psych. pt should go to [facility] however family is unreachable. CM/SW aware and working on guardianship placement
[2017-05-05] MEDS: ROSUVASTATIN CA 20 MG TABLET (FP) PO SCH (22:23)
[2017-05-05] MEDS: DEXTROSE 5%-0.45% SALINE 1,000 ML with POTASSIUM CHLORIDE 10 MEQ IVPB SCH (22:24)
[2017-05-05] MEDS: SENNOSIDES 8.6MG TABLET (FP) PO SCH (22:25)
--- NOTE | 2017-05-06 06:28 | PN ---
Physical Exam: SUBJECTIVE: Patient seen and examined at bedside. She is more alert today, but still having difficulty following commands. OBJECTIVE: Vital Signs Period Temp Pulse Resp BP Sys/Levine Pulse Ox Last 24 Hr 98.1 F-99.4 F 63-86 16-18 105-126/60-75 96-96 GENERAL: The patient is lethargic and oriented to self and place only. HEAD: Normal with no signs of trauma. EYES: extraocular movements intact, sclera anicteric, conjunctiva clear. No ptosis. NECK: Trachea midline, full range of motion, supple. LUNGS: Breath sounds equal, clear to auscultation bilaterally, no wheezes, no crackles, no accessory muscle use. HEART: Regular rate and rhythm, S1, S2 without murmur, rub or gallop. ABDOMEN: Soft, nontender, nondistended, normoactive bowel sounds, no guarding, no rebound, no hepatosplenomegaly, no masses. EXTREMITIES: 2+ pulses, warm, well-perfused, no edema. NEUROLOGICAL: Cranial nerves II through X grossly intact. Normal speech, gait not observed. SKIN: Warm, dry, normal turgor, no rashes or lesions noted Laboratory Results - last 24 hr 05/05/17 05/05/17 08:22 08:22 WBC 10.2 H D RBC 4.15 Hgb 12.1 D Hct 36.7 MCV 88.4 MCH 29.1 MCHC 32.9 RDW 16.1 H Plt Count 131 L MPV 8.9 Neutrophils % 75.2 Lymphocytes % 13.3 D Monocytes % 10.0 Eosinophils % 0.4 Basophils % 1.1 Sodium 145 Potassium 3.3 L Chloride 111 H Carbon Dioxide 29 Anion Gap 5 L BUN 9 D Creatinine 0.9 Random Glucose 151 H D Calcium 9.1 Active Medications Generic Name Dose Route Start Last Admin Trade Name Freq PRN Reason Stop Dose Admin Acetaminophen 650 mg 05/02/17 06:48 Tylenol - PO Q6H PRN FEVER OR PAIN Aspirin 81 mg 05/02/17 10:00 05/05/17 09:38 Ecotrin - PO 81 mg DAILY [facility] Administration Clonazepam 0.5 mg 05/02/17 10:00 05/04/17 09:53 Klonopin - PO Not Given BID [facility] Divalproex Sodium 1,000 mg 05/02/17 10:00 05/05/17 22:24 Depakote - PO 1,000 mg BID [facility] Administration Enoxaparin Sodium 40 mg 05/04/17 16:30 05/05/17 09:38 Lovenox - SQ 40 mg DAILY [facility] Administration Ceftriaxone Sodium 1 gm/ 50 mls @ 100 mls/hr 05/03/17 11:30 05/05/17 09:38 Dextrose IVPB 100 mls/hr DAILY [facility] Administration Potassium Chloride 10 meq/ 1,005 mls @ 100 mls/hr 05/05/17 13:30 05/05/17 22:24 Dextrose/Sodium Chloride IVPB Not Given Q10H [facility] Lacosamide 100 mg 05/02/17 10:00 05/05/17 22:25 Vimpat - PO 100 mg BID [facility] Administration Levetiracetam 1,000 mg 05/03/17 22:00 05/05/17 23:20 Keppra Oral Solution - PO 1,000 mg BID [facility] Administration Metoprolol Succinate 25 mg 05/02/17 10:00 05/05/17 09:38 Toprol Xl - PO 25 mg DAILY [facility] Administration Rosuvastatin Calcium 40 mg 05/02/17 22:00 05/05/17 22:23 Crestor - PO 40 mg HS [facility] Administration Senna 1 tab 05/02/17 22:00 05/05/17 22:25 Senna - PO 1 tab HS [facility] Administration ASSESSMENT/PLAN: 66 yo f w/PMH ETOH abuse w/ rest of PMH unknown presents s/p fall for 24 hours 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 #New onset lethargy likely 2/2 UTI -Patient afebrile for >24h -repeat UA Not indiciative of UTI -repeat ucx growing E. Coli -repeat bcx growing coagulase negative staph -because patient is more lethargic over the past two days, will treat the otherwise asymptomatic UTI empirically -Rocephin 1g daily, day 4 -NS @ 75 as patient is not eating well -CT head obtained to rule out worsening stroke as cause of lethargy; was negative 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, parietal and thalamic CVA -MRI shows infarcts in left temporal and parietal lobes as well as in left thalmus -tonic movements of right limbs absent today -Will follow neurology reccs to attempt control of tonic movements: -Keppra 1g PO BID -Depakote 1g PO BID -lacosamide 100mg PO BID -klonopin .5 BID PO added -RPT CT head negative #Troponinemia 2/2 STEMI- resolved -Troponin peak at 2.7 documented -No anginal symptoms currently -no ischemic workup indicated at this time as per cardio -ASA 81 -Toprolol XL 25mg -anticoagulation contraindicated in the setting of acute stroke #Lactic Acidosis- resolved #Elevated CK 2/2 acute PR vs seizure activity- resolved -ck trending down #NICOLÁS-resolved -cr. .9 now #FEN -NS @ 75 -monitor lytes -Dysphagia puree with nectar consistency liquids #Propylaxsis -SCDs, heparin c/i at this time in the setting of CVA -GI- not indicated at this time -OOB to chair #Dispo -patient admitted for workup and treatment of acute stroke. -Multiple attempts to reach the family have been made by multiple health care teams. -Psych has deemed that the patient does not have the capacity to make her own decisions. We must defer to an advanced directive or patient's to make decisions. -Case management to contact adult protective services as patient seems to have been abandoned by Problem List - Problems (1) CVA (cerebral vascular accident) Code(s): I63.9 - CEREBRAL INFARCTION, UNSPECIFIED Qualifiers: CVA mechanism: unspecified Qualified Code(s): I63.9 - Cerebral infarction, unspecified; I63.9 - Cerebral infarction, unspecified; I63.9 - Cerebral infarction, unspecified; I63.9 - Cerebral infarction, unspecified (2) Seizure Code(s): R56.9 - UNSPECIFIED CONVULSIONS Visit type - Emergency Visit Emergency Visit: Yes ED Registration Date: 04/21/17 Care time: The patient presented to the Emergency Department on the above date and was hospitalized for further evaluation of their emergent condition. - New Patient This patient is new to me today: No - Critical Care Critical Care patient: No
[2017-05-06 08:02] LABS: MCH 30.7 pg (25.7-33.7); MCHC 33.6 g/dl (32.0-36.0); MEAN CELL VOLUME 91.4 fl (80-96); MEAN PLT VOLUME 9.3 fl (7.5-11.1); PLATELET COUNT 134 K/MM3 (134-434); WHITE BLOOD COUNT 8.7 K/mm3 (4.0-10.0)
[2017-05-06 08:14] LABS: ALBUMIN 2.3 g/dl (3.4-5.0); ANION GAP 11 (8-16); CALCIUM 9.2 mg/dL (8.5-10.1); CO2 25 mmol/L (21-32); GLUCOSE,RANDOM 103 mg/dL (74-106); MAGNESIUM 1.7 mg/dL (1.8-2.4)
[2017-05-06 08:18] LABS: ALK PHOS 58 U/L (45-117); BILIRUBIN,TOTAL 0.4 mg/dL (0.2-1.0); CREATININE 0.8 mg/dL (0.55-1.02); PHOSPHOROUS 3.1 mg/dL (2.5-4.9); SGOT/AST 28 U/L (15-37); SGPT/ALT 18 U/L (12-78)
[2017-05-06] MEDS ORDERED: cefTRIAXone SODIUM 1 GM VIAL ONE (09:12)
[2017-05-06] MEDS ORDERED: DEXTROSE 5%-WATER - 50 ML IVPB ONE (09:12)
[2017-05-06] MEDS: ENOXAPARIN NA (PORCINE) 40 MG/0.4 ML DISP.SYRIN SQ SCH (09:15)
[2017-05-06] MEDS: CEFTRIAXONE 1 GM in DEXTROSE 5%-WATER - 50 ML IVPB SCH (09:15)
[2017-05-06] MEDS: levETIRAcetam 500 MG/5 ML ORAL SOLUTION (UNIT-DOSE CUPS) PO SCH ×2 (09:16→21:19)
[2017-05-06] MEDS: METOPROLOL SUCCINATE 25 MG TAB.SR.24H (FP) PO SCH (09:16)
[2017-05-06] MEDS: LACOSAMIDE 50 MG TABLET PO SCH ×2 (09:16→21:22)
[2017-05-06] MEDS: ASPIRIN COATED 81 MG TABLET.EC PO SCH (09:16)
[2017-05-06] MEDS: DIVALPROEX SODIUM 500 MG TABLET E.C. PO SCH ×2 (09:17→21:22)
[2017-05-06] MEDS: DEXTROSE 5%-0.45% SALINE 1,000 ML with POTASSIUM CHLORIDE 10 MEQ IVPB SCH (09:17)
--- NOTE | 2017-05-06 09:25 | PN ---
Progress Note (short form) - Note Progress Note: Neurology This is a female of unknown age and name with unknown medical history who presented BIBA after her called 911 because she had fallen on the floor and was not able to pick herself up after being on the floor for reportedly 24 hours. EMS states that the patient was laying on the carpeted floor on their arrival on scene at her home. The explained that he found her on the floor and she said she felt fine, so he did not call 911 until he saw her in the same place on the floor therafter. The patient was minimally responsive in the ED but able to state she was having left-sided weakness for the past three days which is what caused her to fall but thought it would pass and did not come to the hospital. She was out of TPA window. MRI completed and showed subacute infarcts L temporal/parietal, L thalamic and she does have right sided deficits. There was some facial twitching and patient put on Keppra, increased to 1000mg twice a day, Vimpat also started 100mg twice daily, Depakote also started with good control. Patient on ASA 81mg. CD without hemodynamically significant stenosis, Echo reviewed and LV function normal. AED' s converted to PO. Possibly for rehab placement. Patient with lethargy this morning, overnight spiked fever and increase in Wbc. Being treated for UTI and put on Ceftriaxone. Repeat CT head completed due to diminished mental status and did not show acute changes. Klonipin also held as patient somnolent but continues to be more awake and alert since Abx was started. Today able to tell me she's in the hospital and seems to be more easily arousable and remains more alert. Day 4 of Abx, will complete 5 day course tomorrow. Active Medications Acetaminophen (Tylenol -) 650 mg PO Q6H PRN PRN Reason: FEVER OR PAIN Aspirin (Ecotrin -) 81 mg PO DAILY [facility] Last Admin: 05/06/17 09:16 Dose: 81 mg Clonazepam (Klonopin -) 0.5 mg PO BID [facility] Last Admin: 05/04/17 09:53 Dose: Not Given Divalproex Sodium (Depakote -) 1,000 mg PO BID [facility] Last Admin: 05/06/17 09:17 Dose: 1,000 mg Enoxaparin Sodium (Lovenox -) 40 mg SQ DAILY [facility] Last Admin: 05/06/17 09:15 Dose: 40 mg Ceftriaxone Sodium 1 gm/ (Dextrose) 50 mls @ 100 mls/hr IVPB DAILY [facility] Last Admin: 05/06/17 09:15 Dose: 100 mls/hr Potassium Chloride 10 meq/ (Dextrose/Sodium Chloride) 1,005 mls @ 100 mls/hr IVPB Q10H [facility] Last Admin: 05/06/17 09:17 Dose: Not Given Lacosamide (Vimpat -) 100 mg PO BID [facility] Last Admin: 05/06/17 09:16 Dose: 100 mg Levetiracetam (Keppra Oral Solution -) 1,000 mg PO BID [facility] Last Admin: 05/06/17 09:16 Dose: 1,000 mg Metoprolol Succinate (Toprol Xl -) 25 mg PO DAILY [facility] Last Admin: 05/06/17 09:16 Dose: 25 mg Rosuvastatin Calcium (Crestor -) 40 mg PO [facility] Last Admin: 05/05/17 22:23 Dose: 40 mg Senna (Senna -) 1 tab PO [facility] Last Admin: 05/05/17 22:25 Dose: 1 tab *Physical Exam Vital Signs Temperature 98.1 F 05/06/17 06:00 Pulse Rate 67 05/06/17 06:00 Respiratory Rate 18 05/06/17 06:00 Blood Pressure 110/71 05/06/17 06:00 O2 Sat by Pulse Oximetry (%) 96 05/05/17 21:00 - Physical Exam General Appearance: Yes: Disheveled, HEENT: positive: Hearing Grossly Normal, Neck: positive: Trachea midline, Supple. negative: Tender, Rigid Respiratory/Chest: positive: Lungs Clear, Normal Breath Sounds. negative: Respiratory Distress, Crackles, Rhonchi, Stridor, Wheezing Cardiovascular: positive: Regular Rhythm, Regular Rate. negative: Murmur Gastrointestinal/Abdominal: positive: Normal Bowel Sounds, Soft. negative: Tender, Organomegaly, Pulsatile Mass, Guarding Musculoskeletal: positive: Normal Inspection. negative: Decreased Range of Motion, Vertebral Tenderness Extremity: positive: Normal Capillary Refill, Normal Inspection, Normal Range of Motion. negative: Tender, Cyanosis Integumentary: positive: Normal Color, Dry, Warm. negative: Erythema, Rash, Bruising Neurologic: Limited exam, not participating in full confrontation, move LUE slight more than right, ?3/5 on R, ? 2/5 on L, tactile stimulation intact but limited on R, gait deferred CBCD WBC 8.7 K/mm3 (4.0-10.0) 05/06/17 07:00 RBC 4.27 M/mm3 (3.60-5.2) 05/06/17 07:00 Hgb 13.1 GM/dL (10.7-15.3) 05/06/17 07:00 Hct 39.0 % (32.4-45.2) 05/06/17 07:00 MCV 91.4 fl (80-96) 05/06/17 07:00 MCHC 33.6 g/dl (32.0-36.0) 05/06/17 07:00 RDW 16.0 % (11.6-15.6) H 05/06/17 07:00 Plt Count 134 K/MM3 (134-434) 05/06/17 07:00 MPV 9.3 fl (7.5-11.1) 05/06/17 07:00 CMP Sodium 142 mmol/L (136-145) 05/06/17 07:00 Potassium 3.3 mmol/L (3.5-5.1) L 05/06/17 07:00 Chloride 106 mmol/L (98-107) 05/06/17 07:00 Carbon Dioxide 25 mmol/L (21-32) 05/06/17 07:00 Anion Gap 11 (8-16) 05/06/17 07:00 BUN 5 mg/dL (7-18) L D 05/06/17 07:00 Creatinine 0.8 mg/dL (0.55-1.02) 05/06/17 07:00 Creat Clearance w eGFR > 60 (>60) 05/06/17 07:00 Calcium 9.2 mg/dL (8.5-10.1) 05/06/17 07:00 Total Bilirubin 0.4 mg/dL (0.2-1.0) D 05/06/17 07:00 AST 28 U/L (15-37) D 05/06/17 07:00 ALT 18 U/L (12-78) D 05/06/17 07:00 Alkaline Phosphatase 58 U/L (45-117) 05/06/17 07:00 Total Protein 7.0 g/dl (6.4-8.2) 05/06/17 07:00 Albumin 2.3 g/dl (3.4-5.0) L 05/06/17 07:00 - RADIOLOGY MRI brain reviewed CT head repeated and reviewed CD, echo reviewed Medical Decision Making female of unknown age and name with unknown medical history who presented BIBA after her called 911 because she had fallen on the floor and was not able to pick herself up after being on the floor for reportedly 24 hours. EMS states that the patient was laying on the carpeted floor on their arrival on scene at her home. The explained that he found her on the floor and she said she felt fine, so he did not call 911 until he saw her in the same place on the floor therafter. The patient was minimally responsive in the ED but able to state she was having left-sided weakness for the past three days which is what caused her to fall but thought it would pass and did not come to the hospital. There was a question of generalized seizure and positive troponins. CT head completed and did not show acute changes. MRI demonstrated subacute infarcts L temporal/parietal, L thalamic CVA. -Patient started on Keppra for seizures, getting 1000mg twice daily, -Vimpat 100mg twice daily and Depakote 1000mg twice daily can be continued, -Klonipin on hold -Repeat CT head stable -Continue ASA -Seizures stabilized -BP control, goal < 160/90 for now, < 140/90 as outpatient -PT/OT as tolerated -Mental status improved -Will complete 5 day course of Abx tomorrow -Discharge on hold -DVT ppx
[2017-05-06] MEDS ORDERED: MAGNESIUM OXIDE 400 MG TABLET (FP) PO ONE ×2 (12:15→14:45)
[2017-05-06] MEDS: D5-1/2NS+40 MEQ KCL - 1,000 ML IV SCH ×3 (12:55→22:55)
--- NOTE | 2017-05-06 13:15 | PN ---
Teaching Attending Note Name of Resident: Don Lopez ATTENDING PHYSICIAN STATEMENT I saw and evaluated the patient. I reviewed the resident's note and discussed the case with the resident. I agree with the resident's findings and plan as documented. SUBJECTIVE:more alert, has no complaints OBJECTIVE: Last Vital Signs Temp Pulse Resp BP Pulse Ox 98.1 F 72 16 121/78 96 05/06/17 10:00 05/06/17 10:00 05/06/17 10:00 05/06/17 10:00 05/06/17 09:00 General drowsy but more alert A&O x2 (self and location) CV S1 S2 RRR no murmur/rub/gallop Lungs Crackles R base Neuro slow to respond to verbal questioning. follows some commands ASSESSMENT AND PLAN: 66 yo F with PMH alcohol abuse who presented to the ER after she was found on the floor by her . 1. Lethargy- most likely due to UTI. slowly improving. will cont to monitor. will reduce low dose IVF as developing crackles. encourage pt to increase intake. 2. Acute left temporal/parietal ischemic CVA with right hemiparesis- neuro on board. cont asa, statin. PT and speech therapy 3. Tonic-clonic seizures and right-sided myoclonic jerks- resolved. no more appreciated. Klonopin now d/c. Continue Keppra, Depakote, Vimpat, 4. Hypokalemia- Kcl to IVF 5. sepsis due to UTI- afebrile. leukocytosis improving. on Ceftriaxone day 4. Ucx showing lombardi-sensitive UTI. cont for now 6. Acute inferior wall STEMI- no cardiac intervention at this time. Continue aspirin, Toprol XL, Crestor 7. Acute kidney injury likely secondary to dehydration- Resolved 8. Alcohol abuse- No signs of withdrawal 9. DVT ppx- lovenox 10. pt does not have decision making capacity determined by psych. pt should go to [facility] however family is unreachable. CM/SW aware and working on guardianship placement
[2017-05-06] MEDS: SENNOSIDES 8.6MG TABLET (FP) PO SCH (21:22)
[2017-05-06] MEDS: ROSUVASTATIN CA 20 MG TABLET (FP) PO SCH (21:22)
[2017-05-07 08:24] LABS: MCH 29.2 pg (25.7-33.7); MCHC 32.9 g/dl (32.0-36.0); MEAN CELL VOLUME 88.7 fl (80-96); MEAN PLT VOLUME 9.7 fl (7.5-11.1); PLATELET COUNT 135 K/MM3 (134-434); WHITE BLOOD COUNT 7.6 K/mm3 (4.0-10.0)
[2017-05-07 08:43] LABS: MAGNESIUM 1.6 mg/dL (1.8-2.4); PHOSPHOROUS 2.7 mg/dL (2.5-4.9)
[2017-05-07] MEDS ORDERED: cefTRIAXone SODIUM 1 GM VIAL ONE (09:05)
[2017-05-07] MEDS: ENOXAPARIN NA (PORCINE) 40 MG/0.4 ML DISP.SYRIN SQ SCH (09:10)
[2017-05-07] MEDS: CEFTRIAXONE 1 GM in DEXTROSE 5%-WATER - 50 ML IVPB SCH (09:10)
[2017-05-07] MEDS: METOPROLOL SUCCINATE 25 MG TAB.SR.24H (FP) PO SCH (09:11)
[2017-05-07] MEDS: DIVALPROEX SODIUM 500 MG TABLET E.C. PO SCH ×2 (09:11→21:48)
[2017-05-07] MEDS: ASPIRIN COATED 81 MG TABLET.EC PO SCH (09:11)
[2017-05-07] MEDS: LACOSAMIDE 50 MG TABLET PO SCH ×2 (09:11→21:49)
[2017-05-07] MEDS: levETIRAcetam 500 MG/5 ML ORAL SOLUTION (UNIT-DOSE CUPS) PO SCH ×2 (09:12→21:49)
[2017-05-07] MEDS: D5-1/2NS+40 MEQ KCL - 1,000 ML IV SCH ×2 (09:14→21:42)
--- NOTE | 2017-05-07 09:40 | PN ---
Progress Note (short form) - Note Progress Note: asymptomatic. denies CP, SOB, fver, chills, N/V/C/D Current Medications Generic Name Dose Route Start Last Admin Trade Name Teofilo PRN Reason Stop Dose Admin Acetaminophen 650 mg 05/02/17 06:48 Tylenol - PO Q6H PRN FEVER OR PAIN Aspirin 81 mg 05/02/17 10:00 05/07/17 09:11 Ecotrin - PO 81 mg DAILY [facility] Administration Clonazepam 0.5 mg 05/02/17 10:00 05/04/17 09:53 Klonopin - PO Not Given BID [facility] Divalproex Sodium 1,000 mg 05/02/17 10:00 05/07/17 09:11 Depakote - PO 1,000 mg BID [facility] Administration Enoxaparin Sodium 40 mg 05/04/17 16:30 05/07/17 09:10 Lovenox - SQ 40 mg DAILY [facility] Administration Ceftriaxone Sodium 1 gm/ 50 mls @ 100 mls/hr 05/03/17 11:30 05/07/17 09:10 Dextrose IVPB 100 mls/hr DAILY [facility] Administration Dextrose/Sodium Chloride 1,000 mls @ 75 mls/hr 05/06/17 11:05 05/07/17 09:14 D5-1/2ns+40 Meq Kcl - IV 75 mls/hr Q10H [facility] Administration Lacosamide 100 mg 05/02/17 10:00 05/07/17 09:11 Vimpat - PO 100 mg BID [facility] Administration Levetiracetam 1,000 mg 05/03/17 22:00 05/07/17 09:12 Keppra Oral Solution - PO 1,000 mg BID [facility] Administration Metoprolol Succinate 25 mg 05/02/17 10:00 05/07/17 09:11 Toprol Xl - PO 25 mg DAILY [facility] Administration Rosuvastatin Calcium 40 mg 05/02/17 22:00 05/06/17 21:22 Crestor - PO 40 mg HS [facility] Administration Senna 1 tab 05/02/17 22:00 05/06/17 21:22 Senna - PO 1 tab HS [facility] Administration Last Vital Signs Temp Pulse Resp BP Pulse Ox 98.2 F 76 18 129/80 96 05/07/17 06:07 05/07/17 06:07 05/07/17 06:07 05/07/17 06:07 05/06/17 21:00 General A&O x2 (self and location) CV S1 S2 RRR no murmur/rub/gallop Lungs decreased breath sounds R base no crackles or wheezing Neuro slow to respond to verbal questioning. follows some commands CBCD WBC 7.6 K/mm3 (4.0-10.0) 05/07/17 06:00 RBC 4.28 M/mm3 (3.60-5.2) 05/07/17 06:00 Hgb 12.5 GM/dL (10.7-15.3) 05/07/17 06:00 Hct 38.0 % (32.4-45.2) 05/07/17 06:00 MCV 88.7 fl (80-96) 05/07/17 06:00 MCHC 32.9 g/dl (32.0-36.0) 05/07/17 06:00 RDW 16.0 % (11.6-15.6) H 05/07/17 06:00 Plt Count 135 K/MM3 (134-434) 05/07/17 06:00 MPV 9.7 fl (7.5-11.1) 05/07/17 06:00 CMP Sodium 142 mmol/L (136-145) 05/06/17 07:00 Potassium 3.3 mmol/L (3.5-5.1) L 05/06/17 07:00 Chloride 106 mmol/L (98-107) 05/06/17 07:00 Carbon Dioxide 25 mmol/L (21-32) 05/06/17 07:00 Anion Gap 11 (8-16) 05/06/17 07:00 BUN 5 mg/dL (7-18) L D 05/06/17 07:00 Creatinine 0.8 mg/dL (0.55-1.02) 05/06/17 07:00 Creat Clearance w eGFR > 60 (>60) 05/06/17 07:00 Calcium 9.2 mg/dL (8.5-10.1) 05/06/17 07:00 Total Bilirubin 0.4 mg/dL (0.2-1.0) D 05/06/17 07:00 AST 28 U/L (15-37) D 05/06/17 07:00 ALT 18 U/L (12-78) D 05/06/17 07:00 Alkaline Phosphatase 58 U/L (45-117) 05/06/17 07:00 Total Protein 7.0 g/dl (6.4-8.2) 05/06/17 07:00 Albumin 2.3 g/dl (3.4-5.0) L 05/06/17 07:00 ASSESSMENT AND PLAN: 66 yo F with PMH alcohol abuse who presented to the ER after she was found on the floor by her . 1. Lethargy- most likely due to UTI. now improving. cont low dose IVF at this time. encouraged increase po intake. 2. Acute left temporal/parietal ischemic CVA with right hemiparesis- neuro on board. cont asa, statin. PT and speech therapy 3. Tonic-clonic seizures and right-sided myoclonic jerks- resolved. no more appreciated. Continue Keppra, Depakote, Vimpat, 4. Hypokalemia- Kcl to IVF. will give kcl 2 riders 5. Hypomagnesemia- Mg 2g 6. sepsis due to UTI- afebrile. leukocytosis improving. on Ceftriaxone day 5. will d/c after todays dose. Ucx showing lombardi-sensitive UTI. cont for now 7. Acute inferior wall STEMI- no cardiac intervention at this time. Continue aspirin, Toprol XL, Crestor 8. Acute kidney injury likely secondary to dehydration- Resolved 9. Alcohol abuse- No signs of withdrawal 10. DVT ppx- lovenox 11. pt does not have decision making capacity determined by psych. pt should go to [facility] however family is unreachable. CM/SW aware and working on guardianship placement Visit type - Emergency Visit Emergency Visit: Yes ED Registration Date: 04/21/17 Care time: The patient presented to the Emergency Department on the above date and was hospitalized for further evaluation of their emergent condition. - New Patient This patient is new to me today: No - Critical Care Critical Care patient: No - Discharge Referral Referred to [facility] Med P.C.: No
[2017-05-07] MEDS ORDERED: MAGNESIUM SULF 50% (8.12 MEQ/2 ML-1 GM VIAL) IVPB ONE (10:36)
[2017-05-07] MEDS ORDERED: MAGNESIUM OXIDE 400 MG TABLET (FP) PO ONE (10:36)
[2017-05-07] MEDS: KCL 10 MEQ IVPB 100 ML IVPB SCH ×2 (12:06→14:32)
[2017-05-07] MEDS ORDERED: PT OWN MED DRAWER 7, Y5N ONE (21:05)
[2017-05-07] MEDS: ROSUVASTATIN CA 20 MG TABLET (FP) PO SCH (21:48)
[2017-05-07] MEDS: SENNOSIDES 8.6MG TABLET (FP) PO SCH (21:49)
[2017-05-08 09:00] LABS: ANION GAP 10 (8-16); CALCIUM 9.8 mg/dL (8.5-10.1); CO2 26 mmol/L (21-32); CREATININE 0.7 mg/dL (0.55-1.02); GLUCOSE,RANDOM 96 mg/dL (74-106); MAGNESIUM 1.9 mg/dL (1.8-2.4); PHOSPHOROUS 3.5 mg/dL (2.5-4.9)
[2017-05-08] MEDS ORDERED: PT OWN MED DRAWER 7, Y5N ONE ×2 (09:13→20:42)
[2017-05-08] MEDS: ASPIRIN COATED 81 MG TABLET.EC PO SCH (09:17)
[2017-05-08] MEDS: METOPROLOL SUCCINATE 25 MG TAB.SR.24H (FP) PO SCH (09:17)
[2017-05-08] MEDS: DIVALPROEX SODIUM 500 MG TABLET E.C. PO SCH ×2 (09:17→22:15)
[2017-05-08] MEDS: LACOSAMIDE 50 MG TABLET PO SCH ×2 (09:17→22:22)
[2017-05-08] MEDS: levETIRAcetam 500 MG/5 ML ORAL SOLUTION (UNIT-DOSE CUPS) PO SCH ×2 (09:17→22:45)
[2017-05-08] MEDS: ENOXAPARIN NA (PORCINE) 40 MG/0.4 ML DISP.SYRIN SQ SCH (09:18)
--- NOTE | 2017-05-08 10:05 | PN ---
Progress Note (short form) - Note Progress Note: asymptomatic. denies CP, SOB, fver, chills, N/V/C/D alert with periods of confusion, knows who she is that its a Tuesday and at [facility] but reports she went to [employer] this morning with her . informed her that she has not left the hospital for several weeks and that no one is able to reach her . she disagrees and that she was with him this morning. overall pt is much more alert and speech fluid. Rn confirms waxing/waning mental status states she ate more than 1/4 of her breakfast Current Medications Generic Name Dose Route Start Last Admin Trade Name Freq PRN Reason Stop Dose Admin Acetaminophen 650 mg 05/02/17 06:48 Tylenol - PO Q6H PRN FEVER OR PAIN Aspirin 81 mg 05/02/17 10:00 05/08/17 09:17 Ecotrin - PO 81 mg DAILY [facility] Administration Clonazepam 0.5 mg 05/02/17 10:00 05/04/17 09:53 Klonopin - PO Not Given BID [facility] Divalproex Sodium 1,000 mg 05/02/17 10:00 05/08/17 09:17 Depakote - PO 1,000 mg BID [facility] Administration Enoxaparin Sodium 40 mg 05/04/17 16:30 05/08/17 09:18 Lovenox - SQ 40 mg DAILY [facility] Administration Dextrose/Sodium Chloride 1,000 mls @ 75 mls/hr 05/06/17 11:05 05/07/17 21:42 D5-1/2ns+40 Meq Kcl - IV Not Given Q10H [facility] Lacosamide 100 mg 05/02/17 10:00 05/08/17 09:17 Vimpat - PO 100 mg BID [facility] Administration Levetiracetam 1,000 mg 05/03/17 22:00 05/08/17 09:17 Keppra Oral Solution - PO 1,000 mg BID [facility] Administration Metoprolol Succinate 25 mg 05/02/17 10:00 05/08/17 09:17 Toprol Xl - PO 25 mg DAILY [facility] Administration Rosuvastatin Calcium 40 mg 05/02/17 22:00 05/07/17 21:48 Crestor - PO 40 mg HS [facility] Administration Senna 1 tab 05/02/17 22:00 05/07/17 21:49 Senna - PO 1 tab HS [facility] Administration Last Vital Signs Temp Pulse Resp BP Pulse Ox 98.4 F 63 18 109/76 96 05/08/17 06:00 05/08/17 06:00 05/08/17 06:00 05/08/17 06:00 05/07/17 21:00 General A&O x3 CV S1 S2 RRR no murmur/rub/gallop Lungs CTA B/L no wheezing/rales/rhonchi Neuro follows some commands, +Flaccid paralysis RUE/RLE CMP Sodium 139 mmol/L (136-145) 05/08/17 06:45 Potassium 4.1 mmol/L (3.5-5.1) D 05/08/17 06:45 Chloride 103 mmol/L (98-107) 05/08/17 06:45 Carbon Dioxide 26 mmol/L (21-32) 05/08/17 06:45 Anion Gap 10 (8-16) 05/08/17 06:45 BUN 4 mg/dL (7-18) L 05/08/17 06:45 Creatinine 0.7 mg/dL (0.55-1.02) 05/08/17 06:45 Creat Clearance w eGFR > 60 (>60) 05/06/17 07:00 Calcium 9.8 mg/dL (8.5-10.1) 05/08/17 06:45 Total Bilirubin 0.4 mg/dL (0.2-1.0) D 05/06/17 07:00 AST 28 U/L (15-37) D 05/06/17 07:00 ALT 18 U/L (12-78) D 05/06/17 07:00 Alkaline Phosphatase 58 U/L (45-117) 05/06/17 07:00 Total Protein 7.0 g/dl (6.4-8.2) 05/06/17 07:00 Albumin 2.3 g/dl (3.4-5.0) L 05/06/17 07:00 ASSESSMENT AND PLAN: 66 yo F with PMH alcohol abuse who presented to the ER after she was found on the floor by her . 1. Lethargy- most likely due to UTI. appears to be near baseline. cont low dose IVF at this time. encouraged increase po intake. 2. Acute left temporal/parietal ischemic CVA with right hemiparesis- neuro on board. cont asa, statin. PT and speech therapy 3. Tonic-clonic seizures and right-sided myoclonic jerks- resolved. no more appreciated. Continue Keppra, Depakote, Vimpat, 4. Hypokalemia- resolved. 5. Hypomagnesemia- resolved 6. sepsis due to UTI- afebrile. completed 5 day course of Ceftriaxone. 7. Acute inferior wall STEMI- no cardiac intervention at this time. Continue aspirin, Toprol XL, Crestor 8. Acute kidney injury likely secondary to dehydration- Resolved 9. Alcohol abuse- No signs of withdrawal 10. DVT ppx- lovenox 11. pt does not have decision making capacity determined by psych. pt should go to [facility] however family is unreachable. CM/SW aware and working on guardianship placement Visit type - Emergency Visit Emergency Visit: Yes ED Registration Date: 04/21/17 Care time: The patient presented to the Emergency Department on the above date and was hospitalized for further evaluation of their emergent condition. - New Patient This patient is new to me today: No - Critical Care Critical Care patient: No - Discharge Referral Referred to [facility] Med P.C.: No
[2017-05-08] MEDS: D5-1/2NS+40 MEQ KCL - 1,000 ML IV SCH ×2 (17:41→23:00)
[2017-05-08] MEDS: ROSUVASTATIN CA 20 MG TABLET (FP) PO SCH (22:16)
[2017-05-08] MEDS ORDERED: ROSUVASTATIN CA 10 MG TABLET (FP) ONE (22:20)
[2017-05-08] MEDS: SENNOSIDES 8.6MG TABLET (FP) PO SCH (22:23)
[2017-05-09] MEDS: D5-1/2NS+40 MEQ KCL - 1,000 ML IV SCH (02:38)
--- NOTE | 2017-05-09 06:28 | PN ---
Physical Exam: SUBJECTIVE: Patient seen and examined at bedside. She is more alert today and able to better follow commands. OBJECTIVE: Vital Signs Period Temp Pulse Resp BP Sys/Levine Pulse Ox Last 24 Hr 98.0 F-98.2 F 70-76 18-18 118-125/75-86 96-97 GENERAL: The patient more alert today. Oriented to self and place. HEAD: Normal with no signs of trauma. EYES: extraocular movements intact, sclera anicteric, conjunctiva clear. No ptosis. NECK: Trachea midline, full range of motion, supple. LUNGS: Breath sounds equal, clear to auscultation bilaterally, no wheezes, no crackles, no accessory muscle use. HEART: Regular rate and rhythm, S1, S2 without murmur, rub or gallop. ABDOMEN: Soft, nontender, nondistended, normoactive bowel sounds, no guarding, no rebound, no hepatosplenomegaly, no masses. EXTREMITIES: 2+ pulses, warm, well-perfused, no edema. NEUROLOGICAL: Cranial nerves II through X grossly intact. Normal speech, gait not observed. 3/5 strength in right limbs, 2/5 strength in left limbs SKIN: Warm, dry, normal turgor, no rashes or lesions noted Laboratory Results - last 24 hr 05/08/17 06:45 Sodium 139 Potassium 4.1 D Chloride 103 Carbon Dioxide 26 Anion Gap 10 BUN 4 L Creatinine 0.7 Random Glucose 96 Calcium 9.8 Phosphorus 3.5 D Magnesium 1.9 Active Medications Generic Name Dose Route Start Last Admin Trade Name Freq PRN Reason Stop Dose Admin Acetaminophen 650 mg 05/02/17 06:48 Tylenol - PO Q6H PRN FEVER OR PAIN Aspirin 81 mg 05/02/17 10:00 05/08/17 09:17 Ecotrin - PO 81 mg DAILY CLEMENTE Administration Clonazepam 0.5 mg 05/02/17 10:00 05/04/17 09:53 Klonopin - PO Not Given BID CLEMENTE Divalproex Sodium 1,000 mg 05/02/17 10:00 05/08/17 22:15 Depakote - PO 1,000 mg BID CLEMENTE Administration Enoxaparin Sodium 40 mg 05/04/17 16:30 05/08/17 09:18 Lovenox - SQ 40 mg DAILY CLEMENTE Administration Dextrose/Sodium Chloride 1,000 mls @ 75 mls/hr 05/06/17 11:05 05/09/17 02:38 D5-1/2ns+40 Meq Kcl - IV 75 mls/hr Q10H CLEMENTE Administration Lacosamide 100 mg 05/02/17 10:00 05/08/17 22:22 Vimpat - PO 100 mg BID CLEMENTE Administration Levetiracetam 1,000 mg 05/03/17 22:00 05/08/17 22:45 Keppra Oral Solution - PO 1,000 mg BID CLEMENTE Administration Metoprolol Succinate 25 mg 05/02/17 10:00 05/08/17 09:17 Toprol Xl - PO 25 mg DAILY CLEMENTE Administration Rosuvastatin Calcium 40 mg 05/02/17 22:00 05/08/17 22:16 Crestor - PO 40 mg HS CLEMENTE Administration Senna 1 tab 05/02/17 22:00 05/08/17 22:23 Senna - PO Not Given HS CLEMENTE ASSESSMENT/PLAN: 66 yo f w/PMH ETOH abuse w/ rest of PMH unknown presents s/p fall for 24 hours 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 #New onset lethargy likely 2/2 UTI -Patient afebrile for >24h -because patient is more lethargic over the past two days, will treat the otherwise asymptomatic UTI empirically -completed 4 day course of Rocephin 1g -CT head obtained to rule out worsening stroke as cause of lethargy; was negative -Patient now beginning to eat; will d/c IVF 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, parietal and thalamic CVA -MRI shows infarcts in left temporal and parietal lobes as well as in left thalmus -tonic movements of right limbs absent today -Will follow neurology reccs to attempt control of tonic movements: -Keppra 1g PO BID -Depakote 1g PO BID -lacosamide 100mg PO BID -klonopin .5 BID d/cd -RPT CT head negative #Troponinemia 2/2 STEMI- resolved -ASA 81 daily -Toprolol XL 25mg #Lactic Acidosis- resolved #Elevated CK 2/2 acute [place] vs seizure activity- resolved #NICOLÁS-resolved #FEN -no fluids indicated at this time -monitor lytes -Dysphagia puree with nectar consistency liquids #Propylaxsis -SCDs w/ lovenox 40 mg SQ as patient is at high risk for DVT -GI- not indicated at this time #Dispo -patient admitted for workup and treatment of acute stroke. -Multiple attempts to reach the family have been made by multiple health care teams. -Psych has deemed that the patient does not have the capacity to make her own decisions. We must defer to an advanced directive or patient's to make decisions. -ongoing efforts by case management team to reach Problem List - Problems (1) CVA (cerebral vascular accident) Code(s): I63.9 - CEREBRAL INFARCTION, UNSPECIFIED Qualifiers: CVA mechanism: unspecified Qualified Code(s): I63.9 - Cerebral infarction, unspecified; I63.9 - Cerebral infarction, unspecified; I63.9 - Cerebral infarction, unspecified; I63.9 - Cerebral infarction, unspecified (2) Seizure Code(s): R56.9 - UNSPECIFIED CONVULSIONS Visit type - Emergency Visit Emergency Visit: Yes ED Registration Date: 04/21/17 Care time: The patient presented to the Emergency Department on the above date and was hospitalized for further evaluation of their emergent condition. - New Patient This patient is new to me today: No - Critical Care Critical Care patient: No
[2017-05-09] MEDS ORDERED: PT OWN MED DRAWER 7, Y5N ONE ×2 (09:20→20:30)
[2017-05-09] MEDS: METOPROLOL SUCCINATE 25 MG TAB.SR.24H (FP) PO SCH (09:38)
[2017-05-09] MEDS: ASPIRIN COATED 81 MG TABLET.EC PO SCH (09:38)
[2017-05-09] MEDS: ENOXAPARIN NA (PORCINE) 40 MG/0.4 ML DISP.SYRIN SQ SCH (09:38)
[2017-05-09] MEDS: LACOSAMIDE 50 MG TABLET PO SCH ×2 (09:38→21:58)
[2017-05-09] MEDS: levETIRAcetam 500 MG/5 ML ORAL SOLUTION (UNIT-DOSE CUPS) PO SCH ×2 (09:39→22:40)
[2017-05-09] MEDS: DIVALPROEX SODIUM 500 MG TABLET E.C. PO SCH ×2 (09:39→21:58)
--- NOTE | 2017-05-09 10:08 | PN ---
Progress Note (short form) - Note Progress Note: Neurology This is a female of unknown age and name with unknown medical history who presented BIBA after her called 911 because she had fallen on the floor and was not able to pick herself up after being on the floor for reportedly 24 hours. EMS states that the patient was laying on the carpeted floor on their arrival on scene at her home. The explained that he found her on the floor and she said she felt fine, so he did not call 911 until he saw her in the same place on the floor therafter. The patient was minimally responsive in the ED but able to state she was having left-sided weakness for the past three days which is what caused her to fall but thought it would pass and did not come to the hospital. She was out of TPA window. MRI completed and showed subacute infarcts L temporal/parietal, L thalamic and she does have right sided deficits. There was some facial twitching and patient put on Keppra, increased to 1000mg twice a day, Vimpat also started 100mg twice daily, Depakote also started with good control. Patient on ASA 81mg. CD without hemodynamically significant stenosis, Echo reviewed and LV function normal. AED' s converted to PO. Possibly for rehab placement. Completed Abx for UTI. Wasn't sure of location today, could tell me it's hospital but not exact name. Awake and alert otherwise. Active Medications Acetaminophen (Tylenol -) 650 mg PO Q6H PRN PRN Reason: FEVER OR PAIN Aspirin (Ecotrin -) 81 mg PO DAILY [facility] Last Admin: 05/09/17 09:38 Dose: 81 mg Clonazepam (Klonopin -) 0.5 mg PO BID [facility] Last Admin: 05/04/17 09:53 Dose: Not Given Divalproex Sodium (Depakote -) 1,000 mg PO BID [facility] Last Admin: 05/09/17 09:39 Dose: 1,000 mg Enoxaparin Sodium (Lovenox -) 40 mg SQ DAILY [facility] Last Admin: 05/09/17 09:38 Dose: 40 mg Dextrose/Sodium Chloride (D5-1/2ns+40 Meq Kcl -) 1,000 mls @ 75 mls/hr IV Q10H [facility] Last Admin: 05/09/17 02:38 Dose: 75 mls/hr Lacosamide (Vimpat -) 100 mg PO BID [facility] Last Admin: 05/09/17 09:38 Dose: 100 mg Levetiracetam (Keppra Oral Solution -) 1,000 mg PO BID [facility] Last Admin: 05/09/17 09:39 Dose: 1,000 mg Metoprolol Succinate (Toprol Xl -) 25 mg PO DAILY [facility] Last Admin: 05/09/17 09:38 Dose: 25 mg Rosuvastatin Calcium (Crestor -) 40 mg PO [facility] Last Admin: 05/08/17 22:16 Dose: 40 mg Senna (Senna -) 1 tab PO [facility] Last Admin: 05/08/17 22:23 Dose: Not Given *Physical Exam Vital Signs Temperature 97.9 F 05/09/17 06:27 Pulse Rate 68 05/09/17 06:27 Respiratory Rate 20 05/09/17 06:27 Blood Pressure 108/69 05/09/17 06:27 O2 Sat by Pulse Oximetry (%) 97 05/08/17 21:00 - Physical Exam General Appearance: Yes: Disheveled, HEENT: positive: Hearing Grossly Normal, Neck: positive: Trachea midline, Supple. negative: Tender, Rigid Respiratory/Chest: positive: Lungs Clear, Normal Breath Sounds. negative: Respiratory Distress, Crackles, Rhonchi, Stridor, Wheezing Cardiovascular: positive: Regular Rhythm, Regular Rate. negative: Murmur Gastrointestinal/Abdominal: positive: Normal Bowel Sounds, Soft. negative: Tender, Organomegaly, Pulsatile Mass, Guarding Musculoskeletal: positive: Normal Inspection. negative: Decreased Range of Motion, Vertebral Tenderness Extremity: positive: Normal Capillary Refill, Normal Inspection, Normal Range of Motion. negative: Tender, Cyanosis Integumentary: positive: Normal Color, Dry, Warm. negative: Erythema, Rash, Bruising Neurologic: Limited exam, not participating in full confrontation, move LUE slight more than right, ?3/5 on R, ? 2/5 on L, tactile stimulation intact but limited on R, gait deferred 05/07/17 06:00 05/08/17 06:45 - RADIOLOGY MRI brain reviewed CT head repeated and reviewed CD, echo reviewed Medical Decision Making female of unknown age and name with unknown medical history who presented BIBA after her called 911 because she had fallen on the floor and was not able to pick herself up after being on the floor for reportedly 24 hours. EMS states that the patient was laying on the carpeted floor on their arrival on scene at her home. The explained that he found her on the floor and she said she felt fine, so he did not call 911 until he saw her in the same place on the floor therafter. The patient was minimally responsive in the ED but able to state she was having left-sided weakness for the past three days which is what caused her to fall but thought it would pass and did not come to the hospital. There was a question of generalized seizure and positive troponins. CT head completed and did not show acute changes. MRI demonstrated subacute infarcts L temporal/parietal, L thalamic CVA. -Patient started on Keppra for seizures, getting 1000mg twice daily, -Vimpat 100mg twice daily and Depakote 1000mg twice daily can be continued, -Klonipin was restarted -Repeat CT head stable -Continue ASA -Seizures stabilized -BP control, goal < 160/90 for now, < 140/90 as outpatient -PT/OT as tolerated -Mental status improved -Completed 5 days of ABx for UTI -Awaiting placement -DVT ppx
--- NOTE | 2017-05-09 11:19 | PN ---
Progress Note (short form) - Note Progress Note: Overall appears better. No acute events overnight. No CP or SOB. Intake & Output 05/06/17 05/07/17 05/08/17 05/09/17 23:59 23:59 23:59 23:59 Intake Total 3820 2270 600 900 Balance 3820 2270 600 900 Last Vital Signs Temp Pulse Resp BP Pulse Ox 97.9 F 68 20 108/69 97 05/09/17 06:27 05/09/17 06:27 05/09/17 06:27 05/09/17 06:27 05/08/17 21:00 Active Medications Acetaminophen (Tylenol -) 650 mg PO Q6H PRN PRN Reason: FEVER OR PAIN Aspirin (Ecotrin -) 81 mg PO DAILY [facility] Last Admin: 05/09/17 09:38 Dose: 81 mg Divalproex Sodium (Depakote -) 1,000 mg PO BID [facility] Last Admin: 05/09/17 09:39 Dose: 1,000 mg Enoxaparin Sodium (Lovenox -) 40 mg SQ DAILY [facility] Last Admin: 05/09/17 09:38 Dose: 40 mg Lacosamide (Vimpat -) 100 mg PO BID [facility] Last Admin: 05/09/17 09:38 Dose: 100 mg Levetiracetam (Keppra Oral Solution -) 1,000 mg PO BID [facility] Last Admin: 05/09/17 09:39 Dose: 1,000 mg Metoprolol Succinate (Toprol Xl -) 25 mg PO DAILY [facility] Last Admin: 05/09/17 09:38 Dose: 25 mg Rosuvastatin Calcium (Crestor -) 40 mg PO [facility] Last Admin: 05/08/17 22:16 Dose: 40 mg Senna (Senna -) 1 tab PO [facility] Last Admin: 05/08/17 22:23 Dose: Not Given Constitutional: Yes: Awake and alert, NAD Eyes: Yes: Resolved Left conjunctival hemorrhage HENT: Yes: Atraumatic, Normocephalic Neck: Yes: Supple, Trachea Midline Cardiovascular: Yes: Regular Rate and Rhythm, S1, S2 Respiratory: Yes: CTA Bilaterally Gastrointestinal: Yes: WNL, Soft, Hyperactive Bowel Sounds Renal/: Yes: Handy Present Extremities: Yes: WNL Neurological: Yes: Awake and alert, facial Droop Labs: Problem List - Problems (1) NICOLÁS (acute kidney injury) Code(s): N17.9 - ACUTE KIDNEY FAILURE, UNSPECIFIED (2) CVA (cerebral vascular accident) Code(s): I63.9 - CEREBRAL INFARCTION, UNSPECIFIED Qualifiers: CVA mechanism: unspecified Qualified Code(s): I63.9 - Cerebral infarction, unspecified (3) Lactic acidosis Code(s): E87.2 - ACIDOSIS (4) Seizure Code(s): R56.9 - UNSPECIFIED CONVULSIONS Assessment/Plan PT BP meds as ordered AEDs per Neuro Beta iron D/C planning Dr Early
--- NOTE | 2017-05-09 13:55 | PN ---
Teaching Attending Note Name of Resident: Don Lopez ATTENDING PHYSICIAN STATEMENT I saw and evaluated the patient. I reviewed the resident's note and discussed the case with the resident. I agree with the resident's findings and plan as documented. SUBJECTIVE:asymptomatic. denies CP, SOB, fever, chills, N/V/C/D, states appetite improved. OBJECTIVE: Last Vital Signs Temp Pulse Resp BP Pulse Ox 97.8 F 72 16 128/80 97 05/09/17 09:00 05/09/17 09:00 05/09/17 09:00 05/09/17 09:00 05/08/17 21:00 General NAD A&O x2 (self and location) CV S1 S2 RRR no murmur/rub/gallop Lungs CTA B/L no wheezing/rales/rhonchi Neuro CN grossly intact, flaccid paralysis RUE/RLE ASSESSMENT AND PLAN: 66 yo F with PMH alcohol abuse who presented to the ER after she was found on the floor by her . 1. Lethargy- most likely due to UTI. appears to be near baseline. d/c IVF. encouraged increase po intake. 2. Acute left temporal/parietal ischemic CVA with right hemiparesis- neuro on board. cont asa, statin. PT and speech therapy 3. Tonic-clonic seizures and right-sided myoclonic jerks- resolved. no more appreciated. Continue Keppra, Depakote, Vimpat, 4. Hypokalemia- resolved. 5. Hypomagnesemia- resolved 6. sepsis due to UTI- afebrile. completed 5 day course of Ceftriaxone. 7. Acute inferior wall STEMI- no cardiac intervention at this time. Continue aspirin, Toprol XL, Crestor 8. Acute kidney injury likely secondary to dehydration- Resolved 9. Alcohol abuse- No signs of withdrawal 10. DVT ppx- lovenox 11. pt does not have decision making capacity determined by psych. pt should go to [facility] however family is unreachable. CM/SW aware and working on guardianship placement
[2017-05-09] MEDS: SENNOSIDES 8.6MG TABLET (FP) PO SCH (21:58)
[2017-05-09] MEDS: ROSUVASTATIN CA 20 MG TABLET (FP) PO SCH (21:58)
--- NOTE | 2017-05-10 06:34 | PN ---
Physical Exam: SUBJECTIVE: Patient seen and examined at bedside. Patient's mental status continues to improve daily OBJECTIVE: Vital Signs Period Temp Pulse Resp BP Sys/Levine Pulse Ox Last 24 Hr 97.1 F-98.3 F 65-72 16-20 109-165/76-93 97-97 GENERAL: The patient is awake, alert, and fully oriented, in no acute distress. HEAD: Normal with no signs of trauma. EYES: extraocular movements intact, sclera anicteric, conjunctiva clear. No ptosis. NECK: Trachea midline, full range of motion, supple. LUNGS: Breath sounds equal, clear to auscultation bilaterally, no wheezes, no crackles, no accessory muscle use. HEART: Regular rate and rhythm, S1, S2 without murmur, rub or gallop. ABDOMEN: Soft, nontender, nondistended, normoactive bowel sounds, no guarding, no rebound, no hepatosplenomegaly, no masses. EXTREMITIES: 2+ pulses, warm, well-perfused, no edema. NEUROLOGICAL: Cranial nerves II through X grossly intact. Normal speech, gait not observed. PSYCH: Normal mood, normal affect. SKIN: Warm, dry, normal turgor, no rashes or lesions noted Active Medications Generic Name Dose Route Start Last Admin Trade Name Freq PRN Reason Stop Dose Admin Acetaminophen 650 mg 05/02/17 06:48 Tylenol - PO Q6H PRN FEVER OR PAIN Aspirin 81 mg 05/02/17 10:00 05/09/17 09:38 Ecotrin - PO 81 mg DAILY CLEMENTE Administration Divalproex Sodium 1,000 mg 05/02/17 10:00 05/09/17 21:58 Depakote - PO 1,000 mg BID CLEMENTE Administration Enoxaparin Sodium 40 mg 05/04/17 16:30 05/09/17 09:38 Lovenox - SQ 40 mg DAILY CLEMENTE Administration Lacosamide 100 mg 05/02/17 10:00 05/09/17 21:58 Vimpat - PO 100 mg BID CLEMENTE Administration Levetiracetam 1,000 mg 05/03/17 22:00 05/09/17 22:40 Keppra Oral Solution - PO 1,000 mg BID CLEMENTE Administration Metoprolol Succinate 25 mg 05/02/17 10:00 05/09/17 09:38 Toprol Xl - PO 25 mg DAILY CLEMENTE Administration Rosuvastatin Calcium 40 mg 05/02/17 22:00 05/09/17 21:58 Crestor - PO 40 mg HS CLEMENTE Administration Senna 1 tab 05/02/17 22:00 05/09/17 21:58 Senna - PO 1 tab HS CLEMENTE Administration ASSESSMENT/PLAN: 66 yo f w/PMH ETOH abuse w/ rest of PMH unknown presents s/p fall for 24 hours 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, parietal and thalamic CVA -right hemiparesis improving slowly -tonic movements controlled -Keppra 1g PO BID -Depakote 1g PO BID increased to 1250 BID -lacosamide 100mg PO BID #Troponinemia 2/2 STEMI- resolved -ASA 81 daily -Toprolol XL 25mg #Lactic Acidosis- resolved #Elevated CK 2/2 acute [place] vs seizure activity- resolved #NICOLÁS-resolved #FEN -no fluids indicated at this time -monitor lytes -Dysphagia puree with nectar consistency liquids #Propylaxsis -SCDs w/ lovenox 40 mg SQ as patient is at high risk for DVT -GI- not indicated at this time #Dispo -Psych has deemed that the patient does not have the capacity to make her own decisions. We must defer to an advanced directive or patient's to make decisions. -Patient's found at bedside. He agrees with decision to bring patient to [facility]. Problem List - Problems (1) CVA (cerebral vascular accident) Code(s): I63.9 - CEREBRAL INFARCTION, UNSPECIFIED Qualifiers: CVA mechanism: unspecified Qualified Code(s): I63.9 - Cerebral infarction, unspecified; I63.9 - Cerebral infarction, unspecified; I63.9 - Cerebral infarction, unspecified; I63.9 - Cerebral infarction, unspecified (2) Seizure Code(s): R56.9 - UNSPECIFIED CONVULSIONS Visit type - Emergency Visit Emergency Visit: Yes ED Registration Date: 04/21/17 Care time: The patient presented to the Emergency Department on the above date and was hospitalized for further evaluation of their emergent condition. - New Patient This patient is new to me today: No - Critical Care Critical Care patient: No
[2017-05-10 07:36] LABS: ANION GAP 10 (8-16); CALCIUM 9.9 mg/dL (8.5-10.1); CO2 26 mmol/L (21-32); CREATININE 0.7 mg/dL (0.55-1.02); GLUCOSE,RANDOM 92 mg/dL (74-106)
[2017-05-10] MEDS ORDERED: PT OWN MED DRAWER 7, Y5N ONE (09:43)
[2017-05-10] MEDS: ENOXAPARIN NA (PORCINE) 40 MG/0.4 ML DISP.SYRIN SQ SCH (09:52)
[2017-05-10] MEDS: METOPROLOL SUCCINATE 25 MG TAB.SR.24H (FP) PO SCH ×2 (09:53→13:27)
[2017-05-10] MEDS: levETIRAcetam 500 MG/5 ML ORAL SOLUTION (UNIT-DOSE CUPS) PO SCH ×2 (09:53→13:26)
[2017-05-10] MEDS: DIVALPROEX SODIUM 500 MG TABLET E.C. PO SCH ×2 (09:53→13:24)
[2017-05-10] MEDS: ASPIRIN COATED 81 MG TABLET.EC PO SCH ×2 (09:53→13:26)
[2017-05-10] MEDS: LACOSAMIDE 50 MG TABLET PO SCH ×2 (09:53→13:27)
[2017-05-10] MEDS: D5-1/2NS+40 MEQ KCL - 1,000 ML IV SCH (09:55)
--- NOTE | 2017-05-10 10:06 | PN ---
Progress Note (short form) - Note Progress Note: Neurology This is a female of unknown age and name with unknown medical history who presented BIBA after her called 911 because she had fallen on the floor and was not able to pick herself up after being on the floor for reportedly 24 hours. EMS states that the patient was laying on the carpeted floor on their arrival on scene at her home. The explained that he found her on the floor and she said she felt fine, so he did not call 911 until he saw her in the same place on the floor therafter. The patient was minimally responsive in the ED but able to state she was having left-sided weakness for the past three days which is what caused her to fall but thought it would pass and did not come to the hospital. She was out of TPA window. MRI completed and showed subacute infarcts L temporal/parietal, L thalamic and she does have right sided deficits. There was some facial twitching and patient put on Keppra, increased to 1000mg twice a day, Vimpat also started 100mg twice daily, Depakote also started with good control. Patient on ASA 81mg. CD without hemodynamically significant stenosis, Echo complete and LV function normal. AED' s converted to PO. Completed Abx for UTI. Somnolent but arousable this morning. Able to tell me she's in the hopsital but again wasn't sure of location today, she tends to perk up in the afternoon according to nurse. Active Medications Acetaminophen (Tylenol -) 650 mg PO Q6H PRN PRN Reason: FEVER OR PAIN Aspirin (Ecotrin -) 81 mg PO DAILY [facility] Last Admin: 05/10/17 Dose: 81 mg Divalproex Sodium (Depakote -) 1,000 mg PO BID [facility] Last Admin: 05/10/17 Dose: 1,000 mg Enoxaparin Sodium (Lovenox -) 40 mg SQ DAILY [facility] Last Admin: 05/10/17:52 Dose: 40 mg Lacosamide (Vimpat -) 100 mg PO BID [facility] Last Admin: 05/10/17 Dose: 100 mg Levetiracetam (Keppra Oral Solution -) 1,000 mg PO BID [facility] Last Admin: 05/10/17 Dose: 1,000 mg Metoprolol Succinate (Toprol Xl -) 25 mg PO DAILY [facility] Last Admin: 05/10/17 09:53 Dose: 25 mg Rosuvastatin Calcium (Crestor -) 40 mg PO HS [facility] Last Admin: 05/09/17 21:58 Dose: 40 mg Senna (Senna -) 1 tab PO HS [facility] Last Admin: 05/09/17 21:58 Dose: 1 tab *Physical Exam Vital Signs Temperature 97.3 F L 05/10/17 09:00 Pulse Rate 73 05/10/17 09:00 Respiratory Rate 16 05/10/17 09:00 Blood Pressure 104/70 05/10/17 09:00 O2 Sat by Pulse Oximetry (%) 97 05/09/17 21:00 - Physical Exam General Appearance: Yes: Disheveled, HEENT: positive: Hearing Grossly Normal, Neck: positive: Trachea midline, Supple. negative: Tender, Rigid Respiratory/Chest: positive: Lungs Clear, Normal Breath Sounds. negative: Respiratory Distress, Crackles, Rhonchi, Stridor, Wheezing Cardiovascular: positive: Regular Rhythm, Regular Rate. negative: Murmur Gastrointestinal/Abdominal: positive: Normal Bowel Sounds, Soft. negative: Tender, Organomegaly, Pulsatile Mass, Guarding Musculoskeletal: positive: Normal Inspection. negative: Decreased Range of Motion, Vertebral Tenderness Extremity: positive: Normal Capillary Refill, Normal Inspection, Normal Range of Motion. negative: Tender, Cyanosis Integumentary: positive: Normal Color, Dry, Warm. negative: Erythema, Rash, Bruising Neurologic: Limited exam, not participating in full confrontation, move LUE slight more than right, ?3/5 on R, ? 2/5 on L, tactile stimulation intact but limited on R, gait deferred CBCD WBC 7.6 K/mm3 (4.0-10.0) 05/07/17 06:00 RBC 4.28 M/mm3 (3.60-5.2) 05/07/17 06:00 Hgb 12.5 GM/dL (10.7-15.3) 05/07/17 06:00 Hct 38.0 % (32.4-45.2) 05/07/17 06:00 MCV 88.7 fl (80-96) 05/07/17 06:00 MCHC 32.9 g/dl (32.0-36.0) 05/07/17 06:00 RDW 16.0 % (11.6-15.6) H 05/07/17 06:00 Plt Count 135 K/MM3 (134-434) 05/07/17 06:00 MPV 9.7 fl (7.5-11.1) 05/07/17 06:00 CMP Sodium 138 mmol/L (136-145) 05/10/17 06:30 Potassium 3.9 mmol/L (3.5-5.1) 05/10/17 06:30 Chloride 102 mmol/L (98-107) 05/10/17 06:30 Carbon Dioxide 26 mmol/L (21-32) 05/10/17 06:30 Anion Gap 10 (8-16) 05/10/17 06:30 BUN 9 mg/dL (7-18) D 05/10/17 06:30 Creatinine 0.7 mg/dL (0.55-1.02) 05/10/17 06:30 Creat Clearance w eGFR > 60 (>60) 05/06/17 07:00 Calcium 9.9 mg/dL (8.5-10.1) 05/10/17 06:30 Total Bilirubin 0.4 mg/dL (0.2-1.0) D 05/06/17 07:00 AST 28 U/L (15-37) D 05/06/17 07:00 ALT 18 U/L (12-78) D 05/06/17 07:00 Alkaline Phosphatase 58 U/L (45-117) 05/06/17 07:00 Total Protein 7.0 g/dl (6.4-8.2) 05/06/17 07:00 Albumin 2.3 g/dl (3.4-5.0) L 05/06/17 07:00 - RADIOLOGY MRI brain reviewed CT head repeated and reviewed CD, echo reviewed Medical Decision Making female of unknown age and name with unknown medical history who presented BIBA after her called 911 because she had fallen on the floor and was not able to pick herself up after being on the floor for reportedly 24 hours. EMS states that the patient was laying on the carpeted floor on their arrival on scene at her home. The explained that he found her on the floor and she said she felt fine, so he did not call 911 until he saw her in the same place on the floor therafter. The patient was minimally responsive in the ED but able to state she was having left-sided weakness for the past three days which is what caused her to fall but thought it would pass and did not come to the hospital. There was a question of generalized seizure and positive troponins. CT head completed and did not show acute changes. MRI demonstrated subacute infarcts L temporal/parietal, L thalamic CVA. -Patient started on Keppra for seizures, getting 1000mg twice daily, -Vimpat 100mg twice daily and Depakote 1000mg twice daily can be continued, -Klonipin on hold -Repeat CT head stable -Continue ASA -Seizures stabilized -BP control, goal < 160/90 for now, < 140/90 as outpatient -PT/OT as tolerated -Mental status improves but can be somnolent in AM, resident to recheck later -Completed 5 days of ABx for UTI -Awaiting placement -DVT ppx
[2017-05-10] MEDS ORDERED: SODIUM CHLORIDE 1,000 ML IV STA (10:23)
[2017-05-10] MEDS ORDERED: LORazepam 2 MG/ML SDV VIAL ONE ×2 (10:24→13:42)
[2017-05-10] MEDS ORDERED: VALPROATE SODIUM 500 MG/5 ML VIAL IVPB ONE ×3 (10:39→22:00)
--- NOTE | 2017-05-10 10:47 | RAPID ---
Physical Examination Vital Signs: Vital Signs Temperature 97.3 F L 05/10/17 09:00 Pulse Rate 73 05/10/17 09:00 Respiratory Rate 16 05/10/17 09:00 Blood Pressure 104/70 05/10/17 09:00 O2 Sat by Pulse Oximetry (%) 97 05/09/17 21:00 Findings/Remarks: Called to bedside by rapid response because patient was seizing. Upon arrival, patient was having myoclonic twitching of the right arm, face, leg and toes. No tongue biting, bladder or bowel incontinence noted. Patient was able to answer questions and follow commands very slowly during this time. Dr. Vasquez at bedside. Patient is admitted for stroke with seizures and myoclonic movements previously. He has not had these myoconic movements since 05/02. She had not yet received any of her antiepilleptic medications prior to this episode. Plan -1mg ativan stat to stop seizure activity -Ordered non-con CT head stat which was negative. -As patient became sedated 09/02 ativan administration, will order her AM antiepileptics IV -will increase patient's Depakote to 1250mg BID starting this evening. -Dr. Vasquez agrees with the above plan -neuro checks Q2H -will reassess. Constitutional: Yes: Other (patient with decreased level of consiousness) Eyes: Yes: PERRL HENT: Yes: Atraumatic, Normocephalic Cardiovascular: Yes: Regular Rate and Rhythm, S1, S2. No: JVD, Gallop, Murmur Respiratory: Yes: Regular, CTA Bilaterally Peripheral Pulses: Left Radial: 2+, Right Radial: 2+, Left Doralis Pedis: 2+, Right Dorsalis Pedis: 2+ Neurological: Yes: Other (myoclonic jerking over right face, RUE, RLE. no abnormal movemnt of the left side. Delayed answers to questions. difficulty following commands; sightly worse than this AM.) Labs: CBC, BMP 05/07/17 06:00 05/10/17 06:30
[2017-05-10] MEDS ORDERED: Lacosamide 200 MG/20 ML VIAL IVPB ONE ×2 (11:08→22:00)
--- NOTE | 2017-05-10 11:33 | PN ---
Teaching Attending Note Name of Resident: Don Lopez ATTENDING PHYSICIAN STATEMENT I saw and evaluated the patient. I reviewed the resident's note and discussed the case with the resident. I agree with the resident's findings and plan as documented. SUBJECTIVE: Patient was lethargic this morning. She later was noted to have twitching of the right side of her face, her right arm and right leg. Rapid response was called. She was treated with Ativan 1 mg IV and twitching ceased. OBJECTIVE: Vital Signs Period Temp Pulse Resp BP Sys/Levine Pulse Ox Last 24 Hr 97.1 F-98.4 F 65-74 16-20 104-165/67-93 97 HEART: S1S2, RRR LUNGS: Clear ABDOMEN: Soft, non-distended, normal BS EXTREMITIES: No edema Current Medications Generic Name Dose Route Start Last Admin Trade Name Freq PRN Reason Stop Dose Admin Acetaminophen 650 mg 05/02/17 06:48 Tylenol - PO Q6H PRN FEVER OR PAIN Aspirin 81 mg 05/02/17 10:00 05/10/17 09:53 Ecotrin - PO 81 mg DAILY [facility] Administration Divalproex Sodium 1,000 mg 05/02/17 10:00 05/10/17 09:53 Depakote - PO 1,000 mg BID [facility] Administration Enoxaparin Sodium 40 mg 05/04/17 16:30 05/10/17 09:52 Lovenox - SQ 40 mg DAILY [facility] Administration Sodium Chloride 1,000 mls @ 1,000 mls/hr 05/10/17 10:23 Normal Saline - IV 05/10/17 11:22 ASDIR STA Lacosamide 100 mg 05/02/17 10:00 05/10/17 09:53 Vimpat - PO 100 mg BID [facility] Administration Lacosamide 100 mg 05/10/17 11:08 Vimpat Injection - IVPB 05/10/17 11:09 ONCE ONE Levetiracetam 1,000 mg 05/03/17 22:00 05/10/17 09:53 Keppra Oral Solution - PO 1,000 mg BID [facility] Administration Levetiracetam 1,000 mg 05/10/17 10:39 Keppra Injection - IVPB 05/10/17 10:40 ONCE ONE Lorazepam 1 mg 05/10/17 10:22 Ativan Injection - IVPUSH 05/10/17 10:23 ONCE STA Metoprolol Succinate 25 mg 05/02/17 10:00 05/10/17 09:53 Toprol Xl - PO 25 mg DAILY [facility] Administration Rosuvastatin Calcium 40 mg 05/02/17 22:00 05/09/17 21:58 Crestor - PO 40 mg HS [facility] Administration Senna 1 tab 05/02/17 22:00 05/09/17 21:58 Senna - PO 1 tab HS [facility] Administration Valproate Sodium 1,000 mg 05/10/17 10:39 Depacon Injection - IVPB 05/10/17 10:40 ONCE ONE ASSESSMENT AND PLAN: This is a 66 year old woman with a history of alcohol abuse who presented to the ER after she was found on the floor by her . 1. 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 Seizures - Continue Keppra, Depakote, Vimpat - Klonopin was discontinued - Head CT pending 3. Acute inferior wall STEMI - Echo shows normal LV, normal RV - Continue medical management - Continue aspirin, Toprol XL, Crestor 4. Lactic acidemia secondary to seizure - Resolved 5. Acute kidney injury likely secondary to dehydration - Resolved 6. Hypokalemia - Improved 7. Hypophosphatemia - Improved 8. Hypomagnesemia - Improved 9. Alcohol abuse 10. Rhabdomyolsis - Resolved 11. Polycythemia secondary to dehydration - Resolved 12. E. coli UTI - Completed Rocephin
--- NOTE | 2017-05-10 11:53 | PN ---
Progress Note, [facility] [employer] - Note Progress Note: Selected Entries 05/09/17 05/09/17 05/09/17 06:27 09:00 10:00 Breakfast 100% Supper Temperature 97.9 F 97.8 F 05/09/17 05/09/17 05/09/17 15:36 17:12 19:33 Breakfast Supper 25% Temperature 98.3 F 97.1 F L 05/09/17 05/10/17 05/10/17 22:00 06:31 09:00 Breakfast Supper Temperature 98.0 F 98.4 F 97.3 F L Medical events noted. Breakthrough seizures reported. Sleeping. Case reviewed with staff and who is at bedside. Plan is for transfer to [place].
--- NOTE | 2017-05-10 11:54 | PN ---
Progress Note (short form) - Note Progress Note: Seizure activity this AM. [employer] called. CT Head : likely evolving subacute infarct Intake & Output 05/07/17 05/08/17 05/09/17 05/10/17 23:59 23:59 23:59 23:59 Intake Total 2270 600 2240 Balance 2270 600 2240 Last Vital Signs Temp Pulse Resp BP Pulse Ox 97.3 F L 73 16 104/70 97 05/10/17 09:00 05/10/17 09:00 05/10/17 09:00 05/10/17 09:00 05/09/17 21:00 Active Medications Acetaminophen (Tylenol -) 650 mg PO Q6H PRN PRN Reason: FEVER OR PAIN Aspirin (Ecotrin -) 81 mg PO DAILY [facility] Last Admin: 05/10/17 09:53 Dose: 81 mg Divalproex Sodium (Depakote -) 1,000 mg PO BID [facility] Last Admin: 05/10/17 09:53 Dose: 1,000 mg Enoxaparin Sodium (Lovenox -) 40 mg SQ DAILY [facility] Last Admin: 05/10/17 09:52 Dose: 40 mg Lacosamide (Vimpat -) 100 mg PO BID [facility] Last Admin: 05/10/17 09:53 Dose: 100 mg Levetiracetam (Keppra Oral Solution -) 1,000 mg PO BID [facility] Last Admin: 05/10/17 09:53 Dose: 1,000 mg Levetiracetam (Keppra Injection -) 1,000 mg IVPB ONCE ONE Stop: 05/10/17 10:40 Lorazepam (Ativan Injection -) 1 mg IVPUSH ONCE STA Stop: 05/10/17 10:23 Last Admin: 05/10/17 10:30 Dose: 1 mg Metoprolol Succinate (Toprol Xl -) 25 mg PO DAILY [facility] Last Admin: 05/10/17 09:53 Dose: 25 mg Rosuvastatin Calcium (Crestor -) 40 mg PO HS [facility] Last Admin: 05/09/17 21:58 Dose: 40 mg Senna (Senna -) 1 tab PO HS [facility] Last Admin: 05/09/17 21:58 Dose: 1 tab Valproate Sodium (Depacon Injection -) 1,000 mg IVPB ONCE ONE Stop: 05/10/17 10:40 Constitutional: Yes: Awake and alert, NAD Eyes: Yes: Resolved Left conjunctival hemorrhage HENT: Yes: Atraumatic, Normocephalic Neck: Yes: Supple, Trachea Midline Cardiovascular: Yes: Regular Rate and Rhythm, S1, S2 Respiratory: Yes: CTA Bilaterally Gastrointestinal: Yes: WNL, Soft, Hyperactive Bowel Sounds Renal/: Yes: Handy Present Extremities: Yes: WNL Neurological: Yes: Awake and alert, facial Droop Labs: Laboratory Results - last 24 hr 05/10/17 06:30 Sodium 138 Potassium 3.9 Chloride 102 Carbon Dioxide 26 Anion Gap 10 BUN 9 D Creatinine 0.7 Random Glucose 92 Calcium 9.9 Problem List - Problems (1) NICOLÁS (acute kidney injury) Code(s): N17.9 - ACUTE KIDNEY FAILURE, UNSPECIFIED (2) CVA (cerebral vascular accident) Code(s): I63.9 - CEREBRAL INFARCTION, UNSPECIFIED Qualifiers: CVA mechanism: unspecified Qualified Code(s): I63.9 - Cerebral infarction, unspecified (3) Lactic acidosis Code(s): E87.2 - ACIDOSIS (4) Seizure Code(s): R56.9 - UNSPECIFIED CONVULSIONS Assessment/Plan AEDs per Neuro PT BP meds as ordered Beta iron No Pulmonary contraindication for D/C planning Dr Early
[2017-05-10] MEDS ORDERED: levETIRAcetam 500 MG/5 ML INJECTION VIAL IVPB ONE ×2 (12:30→22:00)
[2017-05-10] MEDS ORDERED: DIVALPROEX SODIUM 500 MG TABLET E.C. PO SCH (13:30)
[2017-05-10] MEDS ORDERED: ROSUVASTATIN CA 10 MG TABLET (FP) ONE (20:57)
[2017-05-10] MEDS ORDERED: DIVALPROEX 1,000 MG, DIVALPROEX 250 MG PO SCH (22:00)
[2017-05-10] MEDS: SENNOSIDES 8.6MG TABLET (FP) PO SCH (22:07)
[2017-05-10] MEDS: ROSUVASTATIN CA 20 MG TABLET (FP) PO SCH (22:07)
--- NOTE | 2017-05-11 06:29 | PN ---
Physical Exam: SUBJECTIVE: Patient seen and examined at bedside. Yesterday PM, patient had rapid response for restarting of myoclonic movements. Neurology aware. Increased depakote dose to 1250. Patient continuing to have myoclonic movements today, improved from those observed at [employer]. OBJECTIVE: Vital Signs Period Temp Pulse Resp BP Sys/Levine Pulse Ox Last 24 Hr 97.3 F-98.4 F 64-75 16-20 101-119/64-70 97-100 GENERAL: The patient lethargic and slow to answer questions and follow commands. HEAD: Normal with no signs of trauma. EYES: extraocular movements intact, sclera anicteric, conjunctiva clear. No ptosis. NECK: Trachea midline, full range of motion, supple. LUNGS: Breath sounds equal, clear to auscultation bilaterally, no wheezes, no crackles, no accessory muscle use. HEART: Regular rate and rhythm, S1, S2 without murmur, rub or gallop. ABDOMEN: Soft, nontender, nondistended, normoactive bowel sounds, no guarding, no rebound, no hepatosplenomegaly, no masses. EXTREMITIES: 2+ pulses, warm, well-perfused, no edema. NEUROLOGICAL: Cranial nerves II through X grossly intact. Normal speech, gait not observed. RLL paresis, weakness in upper extremities R>L, LLL 5/5 strength PSYCH: Normal mood, normal affect. SKIN: Warm, dry, normal turgor, no rashes or lesions noted Laboratory Results - last 24 hr 05/10/17 06:30 Sodium 138 Potassium 3.9 Chloride 102 Carbon Dioxide 26 Anion Gap 10 BUN 9 D Creatinine 0.7 Random Glucose 92 Calcium 9.9 Active Medications Generic Name Dose Route Start Last Admin Trade Name Freq PRN Reason Stop Dose Admin Acetaminophen 650 mg 05/02/17 06:48 Tylenol - PO Q6H PRN FEVER OR PAIN Aspirin 81 mg 05/02/17 10:00 05/10/17 13:26 Ecotrin - PO Not Given DAILY [facility] Divalproex Sodium 1,000 mg/ 1,250 mg 05/11/17 10:00 Divalproex Sodium 250 mg PO BID [facility] Enoxaparin Sodium 40 mg 05/04/17 16:30 05/10/17 09:52 Lovenox - SQ 40 mg DAILY [facility] Administration Lacosamide 100 mg 05/02/17 10:00 10/10/17 13:27 Vimpat - PO Not Given BID [facility] Levetiracetam 1,000 mg 05/03/17 22:00 05/10/17 13:26 Keppra Oral Solution - PO Not Given BID [facility] Lorazepam 1 mg 05/10/17 14:27 Ativan Injection - IVPUSH Q4H PRN Seizures Metoprolol Succinate 25 mg 05/02/17 10:00 05/10/17 13:27 Toprol Xl - PO Not Given DAILY [facility] Rosuvastatin Calcium 40 mg 05/02/17 22:00 05/10/17 22:07 Crestor - PO Not Given HS [facility] Senna 1 tab 05/02/17 22:00 05/10/17 22:07 Senna - PO Not Given HS [facility] ASSESSMENT/PLAN: 66 yo f w/PMH ETOH abuse w/ rest of PMH unknown presents s/p fall for 24 hours 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 #Paresis, lethargy and seizures 2/2 to residual damage from CVA -right hemiparesis improving slowly -tonic movements noted to restart yesterday, improved today -administered ativan 1mg PRN; will d/c and switch the patient to klonopin .25mg BID -Keppra 1g IV BID -Depakote 1250 IV BID -lacosamide 100mg IV BID -NS @ 75 as patient now no longer eating # UTI - resolved -completed 4 day course of Rocephin 1g #Troponinemia 2/2 STEMI- resolved -ASA 81 daily -Toprolol XL 25mg #Lactic Acidosis- resolved #Elevated CK 2/2 acute HI vs seizure activity- resolved #NICOLÁS-resolved #FEN -NS @ 75 -monitor lytes -Dysphagia puree with nectar consistency liquids #Propylaxsis -SCDs w/ lovenox 40 mg SQ as patient is at high risk for DVT -GI- not indicated at this time #Dispo -Psych has deemed that the patient does not have the capacity to make her own decisions. We must defer to an advanced directive or patient's to make decisions. -Patient's agrees with decision to bring patient to [facility]. -ongoing planning for [facility] once patient is stable Problem List - Problems (1) CVA (cerebral vascular accident) Code(s): I63.9 - CEREBRAL INFARCTION, UNSPECIFIED Qualifiers: CVA mechanism: unspecified Qualified Code(s): I63.9 - Cerebral infarction, unspecified; I63.9 - Cerebral infarction, unspecified; I63.9 - Cerebral infarction, unspecified; I63.9 - Cerebral infarction, unspecified (2) Seizure Code(s): R56.9 - UNSPECIFIED CONVULSIONS Visit type - Emergency Visit Emergency Visit: Yes ED Registration Date: 04/21/17 Care time: The patient presented to the Emergency Department on the above date and was hospitalized for further evaluation of their emergent condition. - New Patient This patient is new to me today: No - Critical Care Critical Care patient: No
[2017-05-11 07:20] LABS: MCH 30.2 pg (25.7-33.7); MCHC 33.5 g/dl (32.0-36.0); MEAN CELL VOLUME 90.1 fl (80-96); MEAN PLT VOLUME 9.3 fl (7.5-11.1); PLATELET COUNT 118 K/MM3 (134-434); RDW 15.5 % (11.6-15.6); WHITE BLOOD COUNT 6.5 K/mm3 (4.0-10.0)
[2017-05-11 08:06] LABS: ALBUMIN 2.1 g/dl (3.4-5.0); ANION GAP 9 (8-16); CO2 27 mmol/L (21-32); GLUCOSE,RANDOM 80 mg/dL (74-106); MAGNESIUM 1.6 mg/dL (1.8-2.4)
[2017-05-11 08:13] LABS: ALK PHOS 57 U/L (45-117); BILIRUBIN,TOTAL 0.4 mg/dL (0.2-1.0); CREATININE 0.7 mg/dL (0.55-1.02); PHOSPHOROUS 3.8 mg/dL (2.5-4.9); SGOT/AST 16 U/L (15-37); SGPT/ALT 15 U/L (12-78); TOT PROT 6.3 g/dl (6.4-8.2)
[2017-05-11] MEDS ORDERED: LORazepam 2 MG/ML SDV VIAL IVPUSH PRN (09:02)
[2017-05-11] MEDS: SODIUM CHLORIDE 1,000 ML IV SCH (09:16)
[2017-05-11] MEDS ORDERED: DIVALPROEX 1,000 MG, DIVALPROEX 250 MG PO SCH (10:00)
--- NOTE | 2017-05-11 10:01 | PN ---
Progress Note (short form) - Note Progress Note: Neurology This is a female of unknown age and name with unknown medical history who presented BIBA after her called 911 because she had fallen on the floor and was not able to pick herself up after being on the floor for reportedly 24 hours. EMS states that the patient was laying on the carpeted floor on their arrival on scene at her home. The explained that he found her on the floor and she said she felt fine, so he did not call 911 until he saw her in the same place on the floor therafter. The patient was minimally responsive in the ED but able to state she was having left-sided weakness for the past three days which is what caused her to fall but thought it would pass and did not come to the hospital. She was out of TPA window. MRI completed and showed subacute infarcts L temporal/parietal, L thalamic and she does have right sided deficits. There was some facial twitching and patient put on Keppra, increased to 1000mg twice a day, Vimpat also started 100mg twice daily, Depakote also started with good control. Patient on ASA 81mg. CD without hemodynamically significant stenosis, Echo complete and LV function normal. Completed Abx for UTI. More awake and conversant this morning. Some mild twitching, depakote had been attempted to increase to 1250mg twice daily. Would like to avoid sedative but may consider very low dose Klonipin or Ativan as needed. Active Medications Acetaminophen (Tylenol -) 650 mg PO Q6H PRN PRN Reason: FEVER OR PAIN Aspirin (Ecotrin -) 81 mg PO DAILY [facility] Last Admin: 05/10/17 13:26 Dose: Not Given Enoxaparin Sodium (Lovenox -) 40 mg SQ DAILY [facility] Last Admin: 05/10/17 09:52 Dose: 40 mg Sodium Chloride (Normal Saline -) 1,000 mls @ 75 mls/hr IV ASDIR [facility] Last Admin: 05/11/17 09:16 Dose: 75 mls/hr Lacosamide (Vimpat Injection -) 100 mg IVPB BID [facility] Levetiracetam (Keppra Injection -) 1,000 mg IVPB BID [facility] Lorazepam (Ativan Injection -) 1 mg IVPUSH Q4H PRN PRN Reason: Seizures Last Admin: 05/11/17 09:15 Dose: 1 mg Metoprolol Succinate (Toprol Xl -) 25 mg PO DAILY [facility] Last Admin: 05/10/17 13:27 Dose: Not Given Rosuvastatin Calcium (Crestor -) 40 mg PO HS [facility] Last Admin: 05/10/17 22:07 Dose: Not Given Senna (Senna -) 1 tab PO HS [facility] Last Admin: 05/10/17 22:07 Dose: Not Given Valproate Sodium (Depacon Injection -) 1,250 mg IVPB BID [facility] *Physical Exam Vital Signs Period Temp Pulse Resp BP Sys/Levine Pulse Ox Last 24 Hr 97.7 F-98.4 F 64-75 18-20 101-119/64-69 100 - Physical Exam General Appearance: Yes: Disheveled, HEENT: positive: Hearing Grossly Normal, Neck: positive: Trachea midline, Supple. negative: Tender, Rigid Respiratory/Chest: positive: Lungs Clear, Normal Breath Sounds. negative: Respiratory Distress, Crackles, Rhonchi, Stridor, Wheezing Cardiovascular: positive: Regular Rhythm, Regular Rate. negative: Murmur Gastrointestinal/Abdominal: positive: Normal Bowel Sounds, Soft. negative: Tender, Organomegaly, Pulsatile Mass, Guarding Musculoskeletal: positive: Normal Inspection. negative: Decreased Range of Motion, Vertebral Tenderness Extremity: positive: Normal Capillary Refill, Normal Inspection, Normal Range of Motion. negative: Tender, Cyanosis Integumentary: positive: Normal Color, Dry, Warm. negative: Erythema, Rash, Bruising Neurologic: Limited exam, not participating in full confrontation, move LUE slight more than right, ?3/5 on R, ? 2/5 on L, tactile stimulation intact but limited on R, gait deferred CBCD WBC 6.5 K/mm3 (4.0-10.0) 05/11/17 05:35 RBC 3.98 M/mm3 (3.60-5.2) 05/11/17 05:35 Hgb 12.0 GM/dL (10.7-15.3) 05/11/17 05:35 Hct 35.8 % (32.4-45.2) 05/11/17 05:35 MCV 90.1 fl (80-96) 05/11/17 05:35 MCHC 33.5 g/dl (32.0-36.0) 05/11/17 05:35 RDW 15.5 % (11.6-15.6) 05/11/17 05:35 Plt Count 118 K/MM3 (134-434) L 05/11/17 05:35 MPV 9.3 fl (7.5-11.1) 05/11/17 05:35 CMP Sodium 142 mmol/L (136-145) 05/11/17 05:35 Potassium 4.0 mmol/L (3.5-5.1) 05/11/17 05:35 Chloride 106 mmol/L (98-107) 05/11/17 05:35 Carbon Dioxide 27 mmol/L (21-32) 05/11/17 05:35 Anion Gap 9 (8-16) 05/11/17 05:35 BUN 10 mg/dL (7-18) 05/11/17 05:35 Creatinine 0.7 mg/dL (0.55-1.02) 05/11/17 05:35 Creat Clearance w eGFR > 60 (>60) 05/11/17 05:35 Calcium 9.0 mg/dL (8.5-10.1) 05/11/17 05:35 Total Bilirubin 0.4 mg/dL (0.2-1.0) 05/11/17 05:35 AST 16 U/L (15-37) D 05/11/17 05:35 ALT 15 U/L (12-78) 05/11/17 05:35 Alkaline Phosphatase 57 U/L (45-117) 05/11/17 05:35 Total Protein 6.3 g/dl (6.4-8.2) L 05/11/17 05:35 Albumin 2.1 g/dl (3.4-5.0) L 05/11/17 05:35 - RADIOLOGY MRI brain reviewed CT head repeated and reviewed CD, echo reviewed Medical Decision Making female of unknown age and name with unknown medical history who presented BIBA after her called 911 because she had fallen on the floor and was not able to pick herself up after being on the floor for reportedly 24 hours. EMS states that the patient was laying on the carpeted floor on their arrival on scene at her home. The explained that he found her on the floor and she said she felt fine, so he did not call 911 until he saw her in the same place on the floor therafter. The patient was minimally responsive in the ED but able to state she was having left-sided weakness for the past three days which is what caused her to fall but thought it would pass and did not come to the hospital. There was a question of generalized seizure and positive troponins. CT head completed and did not show acute changes. MRI demonstrated subacute infarcts L temporal/parietal, L thalamic CVA. -Patient started on Keppra for seizures, getting 1000mg twice daily -Vimpat 100mg twice daily and Depakote increased to 1250mg twice daily can be continued, -Repeat CT head stable -Continue ASA -BP control, goal < 160/90 for now, < 140/90 as outpatient -PT/OT as tolerated -Mental status improves but can be somnolent in AM and seems apathetic to questioins -Completed 5 days of ABx for UTI -Awaiting placement -DVT ppx
[2017-05-11] MEDS: METOPROLOL SUCCINATE 25 MG TAB.SR.24H (FP) PO SCH (10:12)
[2017-05-11] MEDS: ASPIRIN COATED 81 MG TABLET.EC PO SCH (10:12)
--- NOTE | 2017-05-11 10:26 | PN ---
Teaching Attending Note Name of Resident: Don Lopez ATTENDING PHYSICIAN STATEMENT I saw and evaluated the patient. I reviewed the resident's note and discussed the case with the resident. I agree with the resident's findings and plan as documented. SUBJECTIVE: Patient is lethargic. Continues to have myoclonic movements of her right side. OBJECTIVE: Vital Signs Period Temp Pulse Resp BP Sys/Levine Pulse Ox Last 24 Hr 97.7 F-98.4 F 64-75 18-20 101-119/64-69 100 HEART: S1S2, RRR LUNGS: Clear ABDOMEN: Soft, non-distended, normal BS EXTREMITIES: No edema NEUROLOGICAL: Lethargic, twitching of right arm, leg, face noted Current Medications Generic Name Dose Route Start Last Admin Trade Name Freq PRN Reason Stop Dose Admin Acetaminophen 650 mg 05/02/17 06:48 Tylenol - PO Q6H PRN FEVER OR PAIN Aspirin 81 mg 05/02/17 10:00 05/11/17 10:12 Ecotrin - PO Not Given DAILY [facility] Enoxaparin Sodium 40 mg 05/04/17 16:30 05/10/17 09:52 Lovenox - SQ 40 mg DAILY [facility] Administration Sodium Chloride 1,000 mls @ 75 mls/hr 05/11/17 09:15 05/11/17 09:16 Normal Saline - IV 75 mls/hr ASDIR [facility] Administration Lacosamide 100 mg 05/11/17 10:00 Vimpat Injection - IVPB BID [facility] Levetiracetam 1,000 mg 05/11/17 10:00 Keppra Injection - IVPB BID [facility] Lorazepam 1 mg 05/11/17 09:02 05/11/17 09:15 Ativan Injection - IVPUSH 1 mg Q4H PRN Administration Seizures Metoprolol Succinate 25 mg 05/02/17 10:00 05/11/17 10:12 Toprol Xl - PO Not Given DAILY [facility] Rosuvastatin Calcium 40 mg 05/02/17 22:00 05/10/17 22:07 Crestor - PO Not Given HS [facility] Senna 1 tab 05/02/17 22:00 05/10/17 22:07 Senna - PO Not Given HS [facility] Valproate Sodium 1,250 mg 05/11/17 10:00 Depacon Injection - IVPB BID [facility] ASSESSMENT AND PLAN: This is a 66 year old woman with a history of alcohol abuse who presented to the ER after she was found on the floor by her . 1. 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 Seizures, myoclonic movements of right side - Continue Keppra, Depacon, Vimpat - Restart Klonopin at lower dose - Head CT shows evolving subacute infarct of left parietal lobe 3. Acute inferior wall STEMI - Echo shows normal LV, normal RV - Continue medical management - Continue aspirin, Toprol XL, Crestor 4. Lactic acidemia secondary to seizure - Resolved 5. Acute kidney injury likely secondary to dehydration - Resolved 6. Hypokalemia - Improved 7. Hypophosphatemia - Improved 8. Hypomagnesemia - Improved 9. Alcohol abuse 10. Rhabdomyolsis - Resolved 11. Polycythemia secondary to dehydration - Resolved 12. E. coli UTI - Completed Rocephin
[2017-05-11] MEDS: ENOXAPARIN NA (PORCINE) 40 MG/0.4 ML DISP.SYRIN SQ SCH (10:55)
[2017-05-11] MEDS: levETIRAcetam 500 MG/5 ML INJECTION VIAL IVPB SCH ×2 (10:55→21:29)
[2017-05-11] MEDS ORDERED: PT OWN MED DRAWER 7, Y5N ONE (11:33)
[2017-05-11] MEDS: VALPROATE SODIUM 500 MG/5 ML VIAL IVPB SCH ×2 (11:49→21:29)
[2017-05-11] MEDS: Lacosamide 200 MG/20 ML VIAL IVPB SCH ×2 (13:36→21:29)
--- NOTE | 2017-05-11 15:10 | PN ---
Progress Note, [employer] - Note Progress Note: Right arm with consistent twitching. Opens left eye and attempts to verbalize but non functional at this time. Dys puree and nectar thick liquid ordered. ASPIRATION PRECAUTIONS. Only feed if pt is responsive and generates a swallow. Monitor PO tolerance. Selected Entries 05/10/17 05/10/17 05/10/17 06:31 09:00 12:07 Breakfast 100% Supper Temperature 98.4 F 97.3 F L 05/10/17 05/10/17 05/10/17 15:14 17:00 18:34 Breakfast Supper NPO Temperature 97.7 F 98.2 F 05/10/17 05/11/17 05/11/17 22:00 02:05 06:06 Breakfast Supper Temperature 98.4 F 98.3 F 98.3 F 05/11/17 09:55 Breakfast 0 Supper Temperature May need TF? if unable to accept PO. What are pt's wishes? Reviewed with staff.
[2017-05-11] MEDS: ROSUVASTATIN CA 20 MG TABLET (FP) PO SCH (21:28)
[2017-05-11] MEDS: clonazePAM 0.5 MG TABLET PO SCH (21:29)
[2017-05-11] MEDS: SENNOSIDES 8.6MG TABLET (FP) PO SCH (21:29)
[2017-05-12] MEDS: SODIUM CHLORIDE 1,000 ML IV SCH ×3 (04:20→20:54)
--- NOTE | 2017-05-12 06:44 | PN ---
Physical Exam: SUBJECTIVE: Patient seen and examined at bedside. patient more alert today OBJECTIVE: Vital Signs Period Temp Pulse Resp BP Sys/Levine Pulse Ox Last 24 Hr 97.7 F-99 F 73-88 17-20 110-145/64-73 100-100 GENERAL: The patient more awake today, but still had delay in answers and trouble following commands. no acute distress. HEAD: Normal with no signs of trauma. EYES: extraocular movements intact, sclera anicteric, conjunctiva clear. No ptosis. NECK: Trachea midline, full range of motion, supple. LUNGS: Breath sounds equal, clear to auscultation bilaterally, no wheezes, no crackles, no accessory muscle use. HEART: Regular rate and rhythm, S1, S2 without murmur, rub or gallop. ABDOMEN: Soft, nontender, nondistended, normoactive bowel sounds, no guarding, no rebound, no hepatosplenomegaly, no masses. EXTREMITIES: 2+ pulses, warm, well-perfused, no edema. NEUROLOGICAL: Cranial nerves II through X grossly intact. Normal speech, gait not observed. PSYCH: Normal mood, normal affect. SKIN: Warm, dry, normal turgor, no rashes or lesions noted Laboratory Results - last 24 hr 05/11/17 05/11/17 05:35 05:35 WBC 6.5 RBC 3.98 Hgb 12.0 Hct 35.8 MCV 90.1 MCH 30.2 MCHC 33.5 RDW 15.5 Plt Count 118 L MPV 9.3 Sodium 142 Potassium 4.0 Chloride 106 Carbon Dioxide 27 Anion Gap 9 BUN 10 Creatinine 0.7 Creat Clearance w eGFR > 60 Random Glucose 80 Calcium 9.0 Phosphorus 3.8 Magnesium 1.6 L Total Bilirubin 0.4 AST 16 D ALT 15 Alkaline Phosphatase 57 Total Protein 6.3 L Albumin 2.1 L Active Medications Generic Name Dose Route Start Last Admin Trade Name Freq PRN Reason Stop Dose Admin Acetaminophen 650 mg 05/02/17 06:48 Tylenol - PO Q6H PRN FEVER OR PAIN Aspirin 81 mg 05/02/17 10:00 05/11/17 10:12 Ecotrin - PO Not Given DAILY [facility] Clonazepam 0.25 mg 05/11/17 22:00 05/11/17 21:29 Klonopin - PO 0.25 mg BID [facility] Administration Enoxaparin Sodium 40 mg 05/04/17 16:30 05/11/17 10:55 Lovenox - SQ 40 mg DAILY [facility] Administration Sodium Chloride 1,000 mls @ 75 mls/hr 05/11/17 09:15 05/12/17 04:20 Normal Saline - IV 75 mls/hr ASDIR [facility] Administration Lacosamide 100 mg 05/11/17 10:00 05/11/17 21:29 Vimpat Injection - IVPB 100 mg BID [facility] Administration Levetiracetam 1,000 mg 05/11/17 10:00 05/11/17 21:29 Keppra Injection - IVPB 1,000 mg BID [facility] Administration Metoprolol Succinate 25 mg 05/02/17 10:00 05/11/17 10:12 Toprol Xl - PO Not Given DAILY [facility] Rosuvastatin Calcium 40 mg 05/02/17 22:00 05/11/17 21:28 Crestor - PO 40 mg HS [facility] Administration Senna 1 tab 05/02/17 22:00 05/11/17 21:29 Senna - PO 1 tab HS [facility] Administration Valproate Sodium 1,250 mg 05/11/17 10:00 05/11/17 21:29 Depacon Injection - IVPB 1,250 mg BID [facility] Administration ASSESSMENT/PLAN: 66 yo f w/PMH ETOH abuse w/ rest of PMH unknown presents s/p fall for 24 hours 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 #Paresis, lethargy and seizures 2/2 to residual damage from CVA -right hemiparesis improving slowly -tonic movements noted to restart yesterday, improved today -administered ativan 1mg PRN; will d/c and switch the patient to klonopin .25mg BID -Keppra 1g IV BID -Depakote 1250 IV BID -lacosamide 100mg IV BID -NS @ 75 as patient now no longer eating -will attempt transition to PO this PM # UTI - resolved -completed 4 day course of Rocephin 1g #Troponinemia 2/2 STEMI- resolved -ASA 81 daily -Toprolol XL 25mg #Lactic Acidosis- resolved #Elevated CK 2/2 acute OK vs seizure activity- resolved #NICOLÁS-resolved #FEN -NS @ 75 -monitor lytes -Dysphagia puree with nectar consistency liquids #Propylaxsis -SCDs w/ lovenox 40 mg SQ as patient is at high risk for DVT -GI- not indicated at this time #Dispo -Psych has deemed that the patient does not have the capacity to make her own decisions. We must defer to an advanced directive or patient's to make decisions. -Patient's agrees with decision to bring patient to [facility]. -ongoing planning for [facility] once patient is stable Problem List - Problems (1) CVA (cerebral vascular accident) Code(s): I63.9 - CEREBRAL INFARCTION, UNSPECIFIED Qualifiers: CVA mechanism: unspecified Qualified Code(s): I63.9 - Cerebral infarction, unspecified; I63.9 - Cerebral infarction, unspecified; I63.9 - Cerebral infarction, unspecified; I63.9 - Cerebral infarction, unspecified (2) Seizure Code(s): R56.9 - UNSPECIFIED CONVULSIONS Visit type - Emergency Visit Emergency Visit: Yes ED Registration Date: 04/21/17 Care time: The patient presented to the Emergency Department on the above date and was hospitalized for further evaluation of their emergent condition. - New Patient This patient is new to me today: No - Critical Care Critical Care patient: No
[2017-05-12 08:03] LABS: ALBUMIN 2.2 g/dl (3.4-5.0); ANION GAP 9 (8-16); CALCIUM 8.9 mg/dL (8.5-10.1); CO2 24 mmol/L (21-32); GLUCOSE,RANDOM 82 mg/dL (74-106); PHOSPHOROUS 3.9 mg/dL (2.5-4.9)
[2017-05-12 08:08] LABS: ALK PHOS 59 U/L (45-117); BILIRUBIN,TOTAL 0.3 mg/dL (0.2-1.0); CREATININE 0.5 mg/dL (0.55-1.02); SGPT/ALT 13 U/L (12-78); TOT PROT 6.3 g/dl (6.4-8.2)
[2017-05-12 08:25] LABS: MAGNESIUM 1.6 mg/dL (1.8-2.4); SGOT/AST 18 U/L (15-37)
--- NOTE | 2017-05-12 08:47 | PN ---
Progress Note (short form) - Note Progress Note: Appears stable. No acute events documented overnight. No CP or SOB. Intake & Output 05/09/17 05/10/17 05/11/17 05/12/17 23:59 23:59 23:59 23:59 Intake Total 1919 1900 1200 1050 Balance 1919 1900 1200 1050 Last Vital Signs Temp Pulse Resp BP Pulse Ox 98.1 F 73 20 115/69 100 05/12/17 06:28 05/12/17 06:28 05/12/17 06:28 05/12/17 06:28 05/11/17 21:00 Active Medications Acetaminophen (Tylenol -) 650 mg PO Q6H PRN PRN Reason: FEVER OR PAIN Aspirin (Ecotrin -) 81 mg PO DAILY [facility] Last Admin: 05/11/17 10:12 Dose: Not Given Clonazepam (Klonopin -) 0.25 mg PO BID [facility] Last Admin: 05/11/17 21:29 Dose: 0.25 mg Enoxaparin Sodium (Lovenox -) 40 mg SQ DAILY [facility] Last Admin: 05/11/17 10:55 Dose: 40 mg Sodium Chloride (Normal Saline -) 1,000 mls @ 75 mls/hr IV ASDIR [facility] Last Admin: 05/12/17 04:20 Dose: 75 mls/hr Lacosamide (Vimpat Injection -) 100 mg IVPB BID [facility] Last Admin: 05/11/17 21:29 Dose: 100 mg Levetiracetam (Keppra Injection -) 1,000 mg IVPB BID [facility] Last Admin: 05/11/17 21:29 Dose: 1,000 mg Metoprolol Succinate (Toprol Xl -) 25 mg PO DAILY [facility] Last Admin: 05/11/17 10:12 Dose: Not Given Rosuvastatin Calcium (Crestor -) 40 mg PO HS [facility] Last Admin: 05/11/17 21:28 Dose: 40 mg Senna (Senna -) 1 tab PO HS [facility] Last Admin: 05/11/17 21:29 Dose: 1 tab Valproate Sodium (Depacon Injection -) 1,250 mg IVPB BID [facility] Last Admin: 05/11/17 21:29 Dose: 1,250 mg Constitutional: NAD Eyes: Yes: Resolved Left conjunctival hemorrhage HENT: Yes: Atraumatic, Normocephalic Neck: Yes: Supple, Trachea Midline Cardiovascular: Yes: Regular Rate and Rhythm, S1, S2 Respiratory: Yes: CTA Bilaterally Gastrointestinal: Yes: WNL, Soft, Hyperactive Bowel Sounds Renal/: Yes: Handy Present Extremities: Yes: WNL Neurological: Yes: Awake and alert, facial Droop Labs: Laboratory Results - last 24 hr 05/12/17 06:25 Sodium 141 Potassium 4.2 Chloride 108 H Carbon Dioxide 24 Anion Gap 9 BUN 8 Creatinine 0.5 L D Creat Clearance w eGFR > 60 Random Glucose 82 Calcium 8.9 Phosphorus 3.9 Magnesium 1.6 L Total Bilirubin 0.3 D AST 18 ALT 13 Alkaline Phosphatase 59 Total Protein 6.3 L Albumin 2.2 L Problem List - Problems (1) NICOLÁS (acute kidney injury) Code(s): N17.9 - ACUTE KIDNEY FAILURE, UNSPECIFIED (2) CVA (cerebral vascular accident) Code(s): I63.9 - CEREBRAL INFARCTION, UNSPECIFIED Qualifiers: CVA mechanism: unspecified Qualified Code(s): I63.9 - Cerebral infarction, unspecified (3) Lactic acidosis Code(s): E87.2 - ACIDOSIS (4) Seizure Code(s): R56.9 - UNSPECIFIED CONVULSIONS Assessment/Plan AEDs per Neuro PT BP meds as ordered Beta iron No Pulmonary contraindication for D/C planning Dr Early
[2017-05-12] MEDS ORDERED: PT OWN MED DRAWER 7, Y5N ONE ×3 (09:42→11:34)
[2017-05-12] MEDS: ENOXAPARIN NA (PORCINE) 40 MG/0.4 ML DISP.SYRIN SQ SCH (09:53)
[2017-05-12] MEDS: levETIRAcetam 500 MG/5 ML INJECTION VIAL IVPB SCH ×2 (09:53→22:06)
[2017-05-12] MEDS: ASPIRIN COATED 81 MG TABLET.EC PO SCH (09:54)
[2017-05-12] MEDS: METOPROLOL SUCCINATE 25 MG TAB.SR.24H (FP) PO SCH (09:54)
[2017-05-12] MEDS: clonazePAM 0.5 MG TABLET PO SCH ×2 (09:54→22:03)
--- NOTE | 2017-05-12 10:26 | PN ---
Progress Note (short form) - Note Progress Note: Neurology This is a female of unknown age and name with unknown medical history who presented BIBA after her called 911 because she had fallen on the floor and was not able to pick herself up after being on the floor for reportedly 24 hours. EMS states that the patient was laying on the carpeted floor on their arrival on scene at her home. The explained that he found her on the floor and she said she felt fine, so he did not call 911 until he saw her in the same place on the floor therafter. The patient was minimally responsive in the ED but able to state she was having left-sided weakness for the past three days which is what caused her to fall but thought it would pass and did not come to the hospital. She was out of TPA window. MRI completed and showed subacute infarcts L temporal/parietal, L thalamic and she does have right sided deficits. There was some facial twitching and patient put on Keppra, increased to 1000mg twice a day, Vimpat also started 100mg twice daily, Depakote also started with good control. Patient on ASA 81mg. CD without hemodynamically significant stenosis, Echo complete and LV function normal. Completed Abx for UTI. Some mild twitching, depakote had been attempted to increase to 1250mg twice daily. Tolerating Klonipin 0.25mg at this time. More awake and conversant this morning. Family now involved and has been stable. Spoke with primary team, will consider placement options with family. Active Medications Generic Name Dose Route Start Last Admin Trade Name Freq PRN Reason Stop Dose Admin Acetaminophen 650 mg 05/02/17 06:48 Tylenol - PO Q6H PRN FEVER OR PAIN Aspirin 81 mg 05/02/17 10:00 05/12/17 09:54 Ecotrin - PO 81 mg DAILY [facility] Administration Clonazepam 0.25 mg 05/11/17 22:00 05/12/17 09:54 Klonopin - PO 0.25 mg BID [facility] Administration Enoxaparin Sodium 40 mg 05/04/17 16:30 05/12/17 09:53 Lovenox - SQ 40 mg DAILY [facility] Administration Sodium Chloride 1,000 mls @ 75 mls/hr 05/11/17 09:15 05/12/17 09:54 Normal Saline - IV Not Given [facility]IR [facility] Lacosamide 100 mg 05/11/17 10:00 05/11/17 21:29 Vimpat Injection - IVPB 100 mg BID [facility] Administration Levetiracetam 1,000 mg 05/11/17 10:00 05/12/17 09:53 Keppra Injection - IVPB 1,000 mg BID [facility] Administration Metoprolol Succinate 25 mg 05/02/17 10:00 05/12/17 09:54 Toprol Xl - PO 25 mg DAILY [facility] Administration Rosuvastatin Calcium 40 mg 05/02/17 22:00 05/11/17 21:28 Crestor - PO 40 mg HS [facility] Administration Senna 1 tab 05/02/17 22:00 05/11/17 21:29 Senna - PO 1 tab HS [facility] Administration Valproate Sodium 1,250 mg 05/11/17 10:00 05/11/17 21:29 Depacon Injection - IVPB 1,250 mg BID [facility] Administration *Physical Exam Vital Signs Temperature 98.1 F 05/12/17 06:28 Pulse Rate 73 05/12/17 06:28 Respiratory Rate 20 05/12/17 06:28 Blood Pressure 115/69 05/12/17 06:28 O2 Sat by Pulse Oximetry (%) 100 05/11/17 21:00 - Physical Exam General Appearance: Yes: Disheveled, HEENT: positive: Hearing Grossly Normal, Neck: positive: Trachea midline, Supple. negative: Tender, Rigid Respiratory/Chest: positive: Lungs Clear, Normal Breath Sounds. negative: Respiratory Distress, Crackles, Rhonchi, Stridor, Wheezing Cardiovascular: positive: Regular Rhythm, Regular Rate. negative: Murmur Gastrointestinal/Abdominal: positive: Normal Bowel Sounds, Soft. negative: Tender, Organomegaly, Pulsatile Mass, Guarding Musculoskeletal: positive: Normal Inspection. negative: Decreased Range of Motion, Vertebral Tenderness Extremity: positive: Normal Capillary Refill, Normal Inspection, Normal Range of Motion. negative: Tender, Cyanosis Integumentary: positive: Normal Color, Dry, Warm. negative: Erythema, Rash, Bruising Neurologic: Limited exam, not participating in full confrontation, move LUE slight more than right, ?3/5 on R, ? 2/5 on L, tactile stimulation intact but limited on R, gait deferred CBCD WBC 6.5 K/mm3 (4.0-10.0) 05/11/17 05:35 RBC 3.98 M/mm3 (3.60-5.2) 05/11/17 05:35 Hgb 12.0 GM/dL (10.7-15.3) 05/11/17 05:35 Hct 35.8 % (32.4-45.2) 05/11/17 05:35 MCV 90.1 fl (80-96) 05/11/17 05:35 MCHC 33.5 g/dl (32.0-36.0) 05/11/17 05:35 RDW 15.5 % (11.6-15.6) 05/11/17 05:35 Plt Count 118 K/MM3 (134-434) L 05/11/17 05:35 MPV 9.3 fl (7.5-11.1) 05/11/17 05:35 CMP Sodium 141 mmol/L (136-145) 05/12/17 06:25 Potassium 4.2 mmol/L (3.5-5.1) 05/12/17 06:25 Chloride 108 mmol/L (98-107) H 05/12/17 06:25 Carbon Dioxide 24 mmol/L (21-32) 05/12/17 06:25 Anion Gap 9 (8-16) 05/12/17 06:25 BUN 8 mg/dL (7-18) 05/12/17 06:25 Creatinine 0.5 mg/dL (0.55-1.02) L D 05/12/17 06:25 Creat Clearance w eGFR > 60 (>60) 05/12/17 06:25 Calcium 8.9 mg/dL (8.5-10.1) 05/12/17 06:25 Total Bilirubin 0.3 mg/dL (0.2-1.0) D 05/12/17 06:25 AST 18 U/L (15-37) 05/12/17 06:25 ALT 13 U/L (12-78) 05/12/17 06:25 Alkaline Phosphatase 59 U/L (45-117) 05/12/17 06:25 Total Protein 6.3 g/dl (6.4-8.2) L 05/12/17 06:25 Albumin 2.2 g/dl (3.4-5.0) L 05/12/17 06:25 - RADIOLOGY MRI brain reviewed CT head repeated and reviewed CD, echo reviewed Medical Decision Making female of unknown age and name with unknown medical history who presented BIBA after her called 911 because she had fallen on the floor and was not able to pick herself up after being on the floor for reportedly 24 hours. EMS states that the patient was laying on the carpeted floor on their arrival on scene at her home. The explained that he found her on the floor and she said she felt fine, so he did not call 911 until he saw her in the same place on the floor therafter. The patient was minimally responsive in the ED but able to state she was having left-sided weakness for the past three days which is what caused her to fall but thought it would pass and did not come to the hospital. There was a question of generalized seizure and positive troponins. CT head completed and did not show acute changes. MRI demonstrated subacute infarcts L temporal/parietal, L thalamic CVA. -Patient started on Keppra for seizures, getting 1000mg twice daily -Vimpat 100mg twice daily and Depakote increased to 1250mg twice daily can be continued, -Klonipin at 0.25mg has been helpful -Repeat CT head stable -Continue ASA -BP control, goal < 160/90 for now, < 140/90 as outpatient -PT/OT as tolerated -Mental status improves but can be somnolent in AM and seems apathetic to questioins -Completed 5 days of ABx for UTI -Awaiting placement, has been medically stable -DVT ppx
[2017-05-12] MEDS: Lacosamide 200 MG/20 ML VIAL IVPB SCH ×2 (11:00→22:03)
--- NOTE | 2017-05-12 11:44 | PN ---
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 Rare verbalizations, usually solicited. Thinks she is in [place]. Limited PO acceptance. Mild right side twitching. Selected Entries 05/11/17 05/11/17 05/11/17 02:05 06:06 15:42 Breakfast Supper Temperature 98.3 F 98.3 F 97.7 F 05/11/17 05/11/17 05/11/17 17:09 18:53 22:00 Breakfast Supper 25% Temperature 99 F 98.4 F 05/12/17 05/12/17 06:28 10:00 Breakfast 25% Supper Temperature 98.1 F Laboratory Tests 05/11/17 05:35 WBC 6.5 Feed only when alert and responsive. Continue modified diet/supplements.
[2017-05-12] MEDS: VALPROATE SODIUM 500 MG/5 ML VIAL IVPB SCH ×2 (12:19→22:16)
--- NOTE | 2017-05-12 12:21 | PN ---
Teaching Attending Note Name of Resident: Don Lopez ATTENDING PHYSICIAN STATEMENT I saw and evaluated the patient. I reviewed the resident's note and discussed the case with the resident. I agree with the resident's findings and plan as documented. SUBJECTIVE: Patient is alert. She appears comfortable and has no complaints. OBJECTIVE: Vital Signs Period Temp Pulse Resp BP Sys/Levine Pulse Ox Last 24 Hr 97.7 F-99 F 73-88 17-20 110-145/64-73 100 HEART: S1S2, RRR LUNGS: Clear ABDOMEN: Soft, non-distended, normal BS EXTREMITIES: No edema NEUROLOGICAL: Lethargic. Decreased twitching of right arm, leg, face Current Medications Generic Name Dose Route Start Last Admin Trade Name Freq PRN Reason Stop Dose Admin Acetaminophen 650 mg 05/02/17 06:48 Tylenol - PO Q6H PRN FEVER OR PAIN Aspirin 81 mg 05/02/17 10:00 05/12/17 09:54 Ecotrin - PO 81 mg DAILY CLEMENTE Administration Clonazepam 0.25 mg 05/11/17 22:00 05/12/17 09:54 Klonopin - PO 0.25 mg BID CLEMENTE Administration Enoxaparin Sodium 40 mg 05/04/17 16:30 05/12/17 09:53 Lovenox - SQ 40 mg DAILY CLEMENTE Administration Sodium Chloride 1,000 mls @ 75 mls/hr 05/11/17 09:15 05/12/17 09:54 Normal Saline - IV Not Given ASDIR CLEMENTE Lacosamide 100 mg 05/11/17 10:00 05/12/17 11:00 Vimpat Injection - IVPB 100 mg BID CLEMENTE Administration Levetiracetam 1,000 mg 05/11/17 10:00 05/12/17 09:53 Keppra Injection - IVPB 1,000 mg BID CLEMENTE Administration Metoprolol Succinate 25 mg 05/02/17 10:00 05/12/17 09:54 Toprol Xl - PO 25 mg DAILY CLEMENTE Administration Rosuvastatin Calcium 40 mg 05/02/17 22:00 05/11/17 21:28 Crestor - PO 40 mg HS CLEMENTE Administration Senna 1 tab 05/02/17 22:00 05/11/17 21:29 Senna - PO 1 tab HS CLEMENTE Administration Valproate Sodium 1,250 mg 05/11/17 10:00 05/12/17 12:19 Depacon Injection - IVPB 1,250 mg BID CLEMENTE Administration ASSESSMENT AND PLAN: This is a 66 year old woman with a history of alcohol abuse who presented to the ER after she was found on the floor by her . 1. 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 Seizures, myoclonic movements of right side - Continue Keppra, Depacon, Vimpat, Klonopin - Head CT shows evolving subacute infarct of left parietal lobe 3. Acute inferior wall STEMI - Echo shows normal LV, normal RV - Continue medical management - Continue aspirin, Toprol XL, Crestor 4. Lactic acidemia secondary to seizure - Resolved 5. Acute kidney injury likely secondary to dehydration - Resolved 6. Hypokalemia - Improved 7. Hypophosphatemia - Improved 8. Hypomagnesemia - Improved 9. Alcohol abuse 10. Rhabdomyolsis - Resolved 11. Polycythemia secondary to dehydration - Resolved 12. E. coli UTI - Completed Rocephin
[2017-05-12] MEDS ORDERED: MAGNESIUM SULF 50% (8.12 MEQ/2 ML-1 GM VIAL) IVPB ONE (17:06)
[2017-05-12] MEDS: ROSUVASTATIN CA 20 MG TABLET (FP) PO SCH (22:02)
[2017-05-12] MEDS: SENNOSIDES 8.6MG TABLET (FP) PO SCH (22:02)
--- NOTE | 2017-05-13 06:47 | PN ---
Physical Exam: SUBJECTIVE: Patient seen and examined at bedside. Patient continues to improve daily. Found awake and alert today. Speech is still delayed. OBJECTIVE: Vital Signs Period Temp Pulse Resp BP Sys/Levine Pulse Ox Last 24 Hr 97.6 F-98.5 F 65-76 16-20 105-138/66-81 96-100 GENERAL: The patient is awake, alert, oriented to self only, in no acute distress. HEAD: Normal with no signs of trauma. EYES: extraocular movements intact, sclera anicteric, conjunctiva clear. No ptosis. NECK: Trachea midline, full range of motion, supple. LUNGS: Breath sounds equal, clear to auscultation bilaterally, no wheezes, no crackles, no accessory muscle use. HEART: Regular rate and rhythm, S1, S2 without murmur, rub or gallop. ABDOMEN: Soft, nontender, nondistended, normoactive bowel sounds, no guarding, no rebound, no hepatosplenomegaly, no masses. EXTREMITIES: 2+ pulses, warm, well-perfused, no edema. NEUROLOGICAL: Cranial nerves II through X grossly intact. Normal speech, gait not observed. PSYCH: Normal mood, normal affect. SKIN: Warm, dry, normal turgor, no rashes or lesions noted Laboratory Results - last 24 hr 05/12/17 06:25 Sodium 141 Potassium 4.2 Chloride 108 H Carbon Dioxide 24 Anion Gap 9 BUN 8 Creatinine 0.5 L D Creat Clearance w eGFR > 60 Random Glucose 82 Calcium 8.9 Phosphorus 3.9 Magnesium 1.6 L Total Bilirubin 0.3 D AST 18 ALT 13 Alkaline Phosphatase 59 Total Protein 6.3 L Albumin 2.2 L Active Medications Generic Name Dose Route Start Last Admin Trade Name Freq PRN Reason Stop Dose Admin Acetaminophen 650 mg 05/02/17 06:48 Tylenol - PO Q6H PRN FEVER OR PAIN Aspirin 81 mg 05/02/17 10:00 05/12/17 09:54 Ecotrin - PO 81 mg DAILY CLEMENTE Administration Clonazepam 0.25 mg 05/11/17 22:00 05/12/17 22:03 Klonopin - PO 0.25 mg BID CLEMENTE Administration Divalproex Sodium 1,000 mg/ 1,250 mg 05/13/17 10:00 Divalproex Sodium 250 mg PO BID CLEMENTE Enoxaparin Sodium 40 mg 05/04/17 16:30 05/12/17 09:53 Lovenox - SQ 40 mg DAILY CLEMENTE Administration Sodium Chloride 1,000 mls @ 75 mls/hr 05/11/17 09:15 05/12/17 20:54 Normal Saline - IV 75 mls/hr ASDIR CLEMENTE Administration Lacosamide 100 mg 05/13/17 10:00 Vimpat - PO BID CLEMENTE Levetiracetam 1,000 mg 05/13/17 10:00 Keppra - PO BID CLEMENTE Metoprolol Succinate 25 mg 05/02/17 10:00 05/12/17 09:54 Toprol Xl - PO 25 mg DAILY CLEMENTE Administration Rosuvastatin Calcium 40 mg 05/02/17 22:00 05/12/17 22:02 Crestor - PO 40 mg HS CLEMENTE Administration Senna 1 tab 05/02/17 22:00 05/12/17 22:02 Senna - PO 1 tab HS CLEMENTE Administration ASSESSMENT/PLAN: 66 yo f w/PMH ETOH abuse w/ rest of PMH unknown presents s/p fall for 24 hours 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 #Paresis, lethargy and seizures 2/2 to residual damage from CVA -tonic movements not seen today; patient has them intermittently as per nurse. -klonopin .25mg BID -Keppra 1g po BID -Depakote 1250 po BID -lacosamide 100mg IV BID -patient tolerated PO meds well this AM # UTI - resolved -completed 4 day course of Rocephin 1g #Troponinemia 2/2 STEMI- resolved -ASA 81 daily -Toprolol XL 25mg #Lactic Acidosis- resolved #Elevated CK 2/2 acute OK vs seizure activity- resolved #NICOLÁS-resolved #FEN -no fluids indicated -monitor lytes -Dysphagia puree with nectar consistency liquids #Propylaxsis -SCDs w/ lovenox 40 mg SQ as patient is at high risk for DVT -GI- not indicated at this time #Dispo -Psych has deemed that the patient does not have the capacity to make her own decisions. We must defer to an advanced directive or patient's to make decisions. -Patient's agrees with decision to bring patient to [facility]. -ongoing planning for [facility] once patient is stable; awaiting insurance auth. Problem List - Problems (1) CVA (cerebral vascular accident) Code(s): I63.9 - CEREBRAL INFARCTION, UNSPECIFIED Qualifiers: CVA mechanism: unspecified Qualified Code(s): I63.9 - Cerebral infarction, unspecified; I63.9 - Cerebral infarction, unspecified; I63.9 - Cerebral infarction, unspecified; I63.9 - Cerebral infarction, unspecified (2) Seizure Code(s): R56.9 - UNSPECIFIED CONVULSIONS Visit type - Emergency Visit Emergency Visit: Yes ED Registration Date: 04/21/17 Care time: The patient presented to the Emergency Department on the above date and was hospitalized for further evaluation of their emergent condition. - New Patient This patient is new to me today: No - Critical Care Critical Care patient: No
[2017-05-13] MEDS ORDERED: PT OWN MED DRAWER 7, Y5N ONE (08:10)
[2017-05-13 08:46] LABS: ALBUMIN 2.2 g/dl (3.4-5.0); ANION GAP 8 (8-16); CO2 30 mmol/L (21-32); GLUCOSE,RANDOM 84 mg/dL (74-106)
[2017-05-13 08:47] LABS: CREATININE 0.7 mg/dL (0.55-1.02); PHOSPHOROUS 3.8 mg/dL (2.5-4.9)
[2017-05-13] MEDS: clonazePAM 0.5 MG TABLET PO SCH ×2 (09:41→22:01)
[2017-05-13] MEDS: LACOSAMIDE 50 MG TABLET PO SCH ×2 (09:41→22:01)
[2017-05-13] MEDS: ASPIRIN COATED 81 MG TABLET.EC PO SCH (09:41)
[2017-05-13] MEDS: METOPROLOL SUCCINATE 25 MG TAB.SR.24H (FP) PO SCH (09:42)
[2017-05-13] MEDS: ENOXAPARIN NA (PORCINE) 40 MG/0.4 ML DISP.SYRIN SQ SCH (09:43)
[2017-05-13] MEDS: levETIRAcetam 500 MG TABLET (FP) PO SCH ×2 (09:43→22:01)
[2017-05-13] MEDS ORDERED: DIVALPROEX 1,000 MG, DIVALPROEX 250 MG PO SCH (10:00)
[2017-05-13] MEDS ORDERED: DIVALPROEX SODIUM 500 MG TABLET E.C. PO SCH (10:00)
--- NOTE | 2017-05-13 10:08 | PN ---
Progress Note (short form) - Note Progress Note: Neurology This is a female of unknown age and name with unknown medical history who presented BIBA after her called 911 because she had fallen on the floor and was not able to pick herself up after being on the floor for reportedly 24 hours. EMS states that the patient was laying on the carpeted floor on their arrival on scene at her home. The explained that he found her on the floor and she said she felt fine, so he did not call 911 until he saw her in the same place on the floor therafter. The patient was minimally responsive in the ED but able to state she was having left-sided weakness for the past three days which is what caused her to fall but thought it would pass and did not come to the hospital. She was out of [facility] window. MRI completed and showed subacute infarcts L temporal/parietal, L thalamic and she does have right sided deficits. There was some facial twitching and patient put on Keppra, increased to 1000mg twice a day, Vimpat also started 100mg twice daily, Depakote also started with good control. Patient on ASA 81mg. CD without hemodynamically significant stenosis, Echo complete and LV function normal. Completed Abx for UTI. Some mild twitching, depakote had been attempted to increase to 1250mg twice daily. Tolerating Klonipin 0.25mg at this time. Family now involved and has been stable. Spoke with primary team, will consider placement options with family. Patient has been responsive and awake in the morning last fews. Does have occasional twitching during the day but stable and subside. Active Medications Acetaminophen (Tylenol -) 650 mg PO Q6H PRN PRN Reason: FEVER OR PAIN Aspirin (Ecotrin -) 81 mg PO DAILY [facility] Last Admin: 05/13/17 09:41 Dose: 81 mg Clonazepam (Klonopin -) 0.25 mg PO BID [facility] Last Admin: 05/13/17 09:41 Dose: 0.25 mg Divalproex Sodium 1,000 mg/ (Divalproex Sodium 250 mg) 1,250 mg PO BID [facility] Enoxaparin Sodium (Lovenox -) 40 mg SQ DAILY [facility] Last Admin: 05/13/17 09:43 Dose: 40 mg Sodium Chloride (Normal Saline -) 1,000 mls @ 75 mls/hr IV ASDIR [facility] Last Admin: 05/12/17 20:54 Dose: 75 mls/hr Lacosamide (Vimpat -) 100 mg PO BID [facility] Last Admin: 05/13/17 09:41 Dose: 100 mg Levetiracetam (Keppra -) 1,000 mg PO BID [facility] Last Admin: 05/13/17 09:43 Dose: 1,000 mg Metoprolol Succinate (Toprol Xl -) 25 mg PO DAILY [facility] Last Admin: 05/13/17 09:42 Dose: 25 mg Rosuvastatin Calcium (Crestor -) 40 mg PO HS [facility] Last Admin: 05/12/17 22:02 Dose: 40 mg Senna (Senna -) 1 tab PO [facility] Last Admin: 05/12/17 22:02 Dose: 1 tab *Physical Exam Vital Signs Temperature 98.0 F 05/13/17 09:00 Pulse Rate 67 05/13/17 09:00 Respiratory Rate 18 05/13/17 09:00 Blood Pressure 117/72 05/13/17 09:00 O2 Sat by Pulse Oximetry (%) 96 05/12/17 21:00 - Physical Exam General Appearance: Yes: Disheveled, HEENT: positive: Hearing Grossly Normal, Neck: positive: Trachea midline, Supple. negative: Tender, Rigid Respiratory/Chest: positive: Lungs Clear, Normal Breath Sounds. negative: Respiratory Distress, Crackles, Rhonchi, Stridor, Wheezing Cardiovascular: positive: Regular Rhythm, Regular Rate. negative: Murmur Gastrointestinal/Abdominal: positive: Normal Bowel Sounds, Soft. negative: Tender, Organomegaly, Pulsatile Mass, Guarding Musculoskeletal: positive: Normal Inspection. negative: Decreased Range of Motion, Vertebral Tenderness Extremity: positive: Normal Capillary Refill, Normal Inspection, Normal Range of Motion. negative: Tender, Cyanosis Integumentary: positive: Normal Color, Dry, Warm. negative: Erythema, Rash, Bruising Neurologic: Limited exam, not participating in full confrontation, move LUE slight more than right, ?3/5 on R, ? 2/5 on L, tactile stimulation intact but limited on R, gait deferred CBCD WBC 6.5 K/mm3 (4.0-10.0) 05/11/17 05:35 RBC 3.98 M/mm3 (3.60-5.2) 05/11/17 05:35 Hgb 12.0 GM/dL (10.7-15.3) 05/11/17 05:35 Hct 35.8 % (32.4-45.2) 05/11/17 05:35 MCV 90.1 fl (80-96) 05/11/17 05:35 MCHC 33.5 g/dl (32.0-36.0) 05/11/17 05:35 RDW 15.5 % (11.6-15.6) 05/11/17 05:35 Plt Count 118 K/MM3 (134-434) L 05/11/17 05:35 MPV 9.3 fl (7.5-11.1) 05/11/17 05:35 CMP Sodium 142 mmol/L (136-145) 05/13/17 06:30 Potassium 3.5 mmol/L (3.5-5.1) 05/13/17 06:30 Chloride 104 mmol/L (98-107) 05/13/17 06:30 Carbon Dioxide 30 mmol/L (21-32) D 05/13/17 06:30 Anion Gap 8 (8-16) 05/13/17 06:30 BUN 8 mg/dL (7-18) 05/13/17 06:30 Creatinine 0.7 mg/dL (0.55-1.02) D 05/13/17 06:30 Creat Clearance w eGFR > 60 (>60) 05/12/17 06:25 Calcium 9.0 mg/dL (8.5-10.1) 05/13/17 06:30 Total Bilirubin 0.3 mg/dL (0.2-1.0) D 05/12/17 06:25 AST 18 U/L (15-37) 05/12/17 06:25 ALT 13 U/L (12-78) 05/12/17 06:25 Alkaline Phosphatase 59 U/L (45-117) 05/12/17 06:25 Total Protein 6.3 g/dl (6.4-8.2) L 05/12/17 06:25 Albumin 2.2 g/dl (3.4-5.0) L 05/13/17 06:30 - RADIOLOGY MRI brain reviewed CT head repeated and reviewed CD, echo reviewed Medical Decision Making female of unknown age and name with unknown medical history who presented BIBA after her called 911 because she had fallen on the floor and was not able to pick herself up after being on the floor for reportedly 24 hours. EMS states that the patient was laying on the carpeted floor on their arrival on scene at her home. The explained that he found her on the floor and she said she felt fine, so he did not call 911 until he saw her in the same place on the floor therafter. The patient was minimally responsive in the ED but able to state she was having left-sided weakness for the past three days which is what caused her to fall but thought it would pass and did not come to the hospital. There was a question of generalized seizure and positive troponins. CT head completed and did not show acute changes. MRI demonstrated subacute infarcts L temporal/parietal, L thalamic CVA. -Patient started on Keppra for seizures, getting 1000mg twice daily -Vimpat 100mg twice daily and Depakote increased to 1250mg twice daily can be continued, -Klonipin at 0.25mg has been helpful -Repeat CT head stable -Continue ASA -BP control, goal < 160/90 for now, < 140/90 as outpatient -PT/OT as tolerated -Mental status improves but can be somnolent in AM and seems apathetic to questioins -Completed 5 days of ABx for UTI -Awaiting placement, SNF, nurse case management involved closely -DVT ppx
[2017-05-13] MEDS ORDERED: ASPIRIN 81 MG CHEWABLE TABLETS PO SCH (11:45)
--- NOTE | 2017-05-13 11:48 | PN ---
Teaching Attending Note Name of Resident: Don Lopez ATTENDING PHYSICIAN STATEMENT I saw and evaluated the patient. I reviewed the resident's note and discussed the case with the resident. I agree with the resident's findings and plan as documented. SUBJECTIVE: No complaints. OBJECTIVE: Vital Signs Period Temp Pulse Resp BP Sys/Levine Pulse Ox Last 24 Hr 97.6 F-98.1 F 65-76 16-20 105-138/66-81 96 HEART: S1S2, RRR LUNGS: Clear ABDOMEN: Soft, non-distended, normal BS EXTREMITIES: No edema NEUROLOGICAL: Strength 1/5 in RUE/RLE. Occasional twitching of RUE/RLE Current Medications Generic Name Dose Route Start Last Admin Trade Name Freq PRN Reason Stop Dose Admin Acetaminophen 650 mg 05/02/17 06:48 Tylenol - PO Q6H PRN FEVER OR PAIN Aspirin 81 mg 05/14/17 10:00 Asa - PO DAILY CLEMENTE Clonazepam 0.25 mg 05/11/17 22:00 05/13/17 09:41 Klonopin - PO 0.25 mg BID CLEMENTE Administration Divalproex Sodium 1,250 mg 05/13/17 12:00 Depakote Sprinkle Caps - PO BID CLEMENTE Enoxaparin Sodium 40 mg 05/04/17 16:30 05/13/17 09:43 Lovenox - SQ 40 mg DAILY CLEMENTE Administration Sodium Chloride 1,000 mls @ 75 mls/hr 05/11/17 09:15 05/12/17 20:54 Normal Saline - IV 75 mls/hr ASDIR CLEMENTE Administration Lacosamide 100 mg 05/13/17 10:00 05/13/17 09:41 Vimpat - PO 100 mg BID CLEMENTE Administration Levetiracetam 1,000 mg 05/13/17 10:00 05/13/17 09:43 Keppra - PO 1,000 mg BID CLEMENTE Administration Metoprolol Succinate 25 mg 05/02/17 10:00 05/13/17 09:42 Toprol Xl - PO 25 mg DAILY CLEMENTE Administration Rosuvastatin Calcium 40 mg 05/02/17 22:00 05/12/17 22:02 Crestor - PO 40 mg HS CLEMENTE Administration Senna 1 tab 05/02/17 22:00 05/12/17 22:02 Senna - PO 1 tab HS CLEMENTE Administration ASSESSMENT AND PLAN: This is a 66 year old woman with a history of alcohol abuse who presented to the ER after she was found on the floor by her . 1. 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 Seizures, myoclonic movements of right side - Continue Keppra, Depakote, Vimpat, Klonopin - Head CT shows evolving subacute infarct of left parietal lobe 3. Acute inferior wall STEMI - Echo shows normal LV, normal RV - Continue medical management - Continue aspirin, Toprol XL, Crestor 4. Lactic acidemia secondary to seizure - Resolved 5. Acute kidney injury likely secondary to dehydration - Resolved 6. Hypokalemia - Improved 7. Hypophosphatemia - Improved 8. Hypomagnesemia - Improved 9. Alcohol abuse 10. Rhabdomyolsis - Resolved 11. Polycythemia secondary to dehydration - Resolved 12. E. coli UTI - Completed Rocephin
[2017-05-13] MEDS: SODIUM CHLORIDE 1,000 ML IV SCH ×2 (12:05→23:09)
--- NOTE | 2017-05-13 12:21 | PN ---
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 Followed by Palliative care regarding end of life decisions. Feed only when alert and responsive. Continue modified diet/supplements.
[2017-05-13] MEDS: DIVALPROEX SODIUM 125 MG SPRINKLE CAPS (FP) PO SCH ×2 (12:28→22:04)
[2017-05-13] MEDS ORDERED: SODIUM PHOSPHATE/NA BIPHOS 133 ML ENEMA PR ONE (15:04)
[2017-05-13] MEDS: SENNOSIDES 8.6MG TABLET (FP) PO SCH (22:01)
[2017-05-13] MEDS: ROSUVASTATIN CA 20 MG TABLET (FP) PO SCH (22:01)
[2017-05-14] MEDS ORDERED: PT OWN MED DRAWER 7, Y5N ONE (09:11)
[2017-05-14] MEDS: LACOSAMIDE 50 MG TABLET PO SCH ×2 (09:12→21:24)
[2017-05-14] MEDS: ENOXAPARIN NA (PORCINE) 40 MG/0.4 ML DISP.SYRIN SQ SCH (09:12)
[2017-05-14] MEDS: levETIRAcetam 500 MG TABLET (FP) PO SCH ×2 (09:13→21:24)
[2017-05-14] MEDS: DIVALPROEX SODIUM 125 MG SPRINKLE CAPS (FP) PO SCH ×2 (09:13→21:23)
[2017-05-14] MEDS: clonazePAM 0.5 MG TABLET PO SCH ×2 (09:13→21:23)
[2017-05-14] MEDS: ASPIRIN 81 MG CHEWABLE TABLETS PO SCH (09:13)
[2017-05-14] MEDS: METOPROLOL SUCCINATE 25 MG TAB.SR.24H (FP) PO SCH (09:13)
--- NOTE | 2017-05-14 09:59 | PN ---
Progress Note (short form) - Note Progress Note: Appears stable. Remains confused. No acute events documented overnight. Intake & Output 05/11/17 05/12/17 05/13/17 05/14/17 23:59 23:59 23:59 23:59 Intake Total 1200 2140 2215 450 Balance 1200 2140 2215 450 Last Vital Signs Temp Pulse Resp BP Pulse Ox 98.0 F 59 L 20 121/68 94 L 05/14/17 06:00 05/14/17 06:00 05/14/17 06:00 05/14/17 06:00 05/13/17 21:00 Active Medications Acetaminophen (Tylenol -) 650 mg PO Q6H PRN PRN Reason: FEVER OR PAIN Aspirin (Asa -) 81 mg PO DAILY [facility] Last Admin: 05/14/17 09:13 Dose: 81 mg Clonazepam (Klonopin -) 0.25 mg PO BID [facility] Last Admin: 05/14/17 09:13 Dose: 0.25 mg Divalproex Sodium (Depakote Sprinkle Caps -) 1,250 mg PO BID [facility] Last Admin: 05/14/17 09:13 Dose: 1,250 mg Enoxaparin Sodium (Lovenox -) 40 mg SQ DAILY [facility] Last Admin: 05/14/17 09:12 Dose: 40 mg Sodium Chloride (Normal Saline -) 1,000 mls @ 75 mls/hr IV ASDIR [facility] Last Admin: 05/13/17 23:09 Dose: 75 mls/hr Lacosamide (Vimpat -) 100 mg PO BID [facility] Last Admin: 05/14/17 09:12 Dose: 100 mg Levetiracetam (Keppra -) 1,000 mg PO BID [facility] Last Admin: 05/14/17 09:13 Dose: 1,000 mg Metoprolol Succinate (Toprol Xl -) 25 mg PO DAILY [facility] Last Admin: 05/14/17 09:13 Dose: 25 mg Rosuvastatin Calcium (Crestor -) 40 mg PO HS [facility] Last Admin: 05/13/17 22:01 Dose: 40 mg Senna (Senna -) 1 tab PO HS [facility] Last Admin: 05/13/17 22:01 Dose: 1 tab Constitutional: NAD Eyes: Yes: Resolved Left conjunctival hemorrhage HENT: Yes: Atraumatic, Normocephalic Neck: Yes: Supple, Trachea Midline Cardiovascular: Yes: Regular Rate and Rhythm, S1, S2 Respiratory: Yes: CTA Bilaterally Gastrointestinal: Yes: WNL, Soft, Hyperactive Bowel Sounds Renal/: Yes: Handy Present Extremities: Yes: WNL Neurological: Yes: Awake and alert, facial Droop Labs: Problem List - Problems (1) NICOLÁS (acute kidney injury) Code(s): N17.9 - ACUTE KIDNEY FAILURE, UNSPECIFIED (2) CVA (cerebral vascular accident) Code(s): I63.9 - CEREBRAL INFARCTION, UNSPECIFIED Qualifiers: CVA mechanism: unspecified Qualified Code(s): I63.9 - Cerebral infarction, unspecified (3) Lactic acidosis Code(s): E87.2 - ACIDOSIS (4) Seizure Code(s): R56.9 - UNSPECIFIED CONVULSIONS Assessment/Plan AEDs per Neuro PT BP meds as ordered Beta iron No Pulmonary contraindication for D/C planning Dr Early
--- NOTE | 2017-05-14 11:43 | PN ---
Progress Note (short form) - Note Progress Note: Neurology This is a female of unknown age and name with unknown medical history who presented BIBA after her called 911 because she had fallen on the floor and was not able to pick herself up after being on the floor for reportedly 24 hours. EMS states that the patient was laying on the carpeted floor on their arrival on scene at her home. The explained that he found her on the floor and she said she felt fine, so he did not call 911 until he saw her in the same place on the floor therafter. The patient was minimally responsive in the ED but able to state she was having left-sided weakness for the past three days which is what caused her to fall but thought it would pass and did not come to the hospital. She was out of TPA window. MRI completed and showed subacute infarcts L temporal/parietal, L thalamic and she does have right sided deficits. There was some facial twitching and patient put on Keppra, increased to 1000mg twice a day, Vimpat also started 100mg twice daily, Depakote also started with good control. Patient on ASA 81mg. CD without hemodynamically significant stenosis, Echo complete and LV function normal. Completed Abx for UTI. Some mild twitching, depakote had been attempted to increase to 1250mg twice daily. Tolerating Klonipin 0.25mg at this time. Family now involved and has been stable. Does have occasional twitching during the day but stable and subside. Patient stable, spoke to nurse and has been interactive and improved. No twitching noted during my visit. Active Medications Acetaminophen (Tylenol -) 650 mg PO Q6H PRN PRN Reason: FEVER OR PAIN Aspirin (Asa -) 81 mg PO DAILY [facility] Last Admin: 05/14/17 09:13 Dose: 81 mg Clonazepam (Klonopin -) 0.25 mg PO BID [facility] Last Admin: 05/14/17 09:13 Dose: 0.25 mg Divalproex Sodium (Depakote Sprinkle Caps -) 1,250 mg PO BID [facility] Last Admin: 05/14/17 09:13 Dose: 1,250 mg Enoxaparin Sodium (Lovenox -) 40 mg SQ DAILY [facility] Last Admin: 05/14/17 09:12 Dose: 40 mg Sodium Chloride (Normal Saline -) 1,000 mls @ 75 mls/hr IV ASDIR [facility] Last Admin: 05/13/17 23:09 Dose: 75 mls/hr Lacosamide (Vimpat -) 100 mg PO BID [facility] Last Admin: 05/14/17 09:12 Dose: 100 mg Levetiracetam (Keppra -) 1,000 mg PO BID [facility] Last Admin: 05/14/17 09:13 Dose: 1,000 mg Metoprolol Succinate (Toprol Xl -) 25 mg PO DAILY [facility] Last Admin: 05/14/17 09:13 Dose: 25 mg Rosuvastatin Calcium (Crestor -) 40 mg PO [facility] Last Admin: 05/13/17 22:01 Dose: 40 mg Senna (Senna -) 1 tab PO [facility] Last Admin: 05/13/17 22:01 Dose: 1 tab *Physical Exam Vital Signs Temperature 98.0 F 05/14/17 06:00 Pulse Rate 59 L 05/14/17 06:00 Respiratory Rate 20 05/14/17 06:00 Blood Pressure 121/68 05/14/17 06:00 O2 Sat by Pulse Oximetry (%) 94 L 05/13/17 21:00 - Physical Exam General Appearance: Yes: Disheveled, HEENT: positive: Hearing Grossly Normal, Neck: positive: Trachea midline, Supple. negative: Tender, Rigid Respiratory/Chest: positive: Lungs Clear, Normal Breath Sounds. negative: Respiratory Distress, Crackles, Rhonchi, Stridor, Wheezing Cardiovascular: positive: Regular Rhythm, Regular Rate. negative: Murmur Gastrointestinal/Abdominal: positive: Normal Bowel Sounds, Soft. negative: Tender, Organomegaly, Pulsatile Mass, Guarding Musculoskeletal: positive: Normal Inspection. negative: Decreased Range of Motion, Vertebral Tenderness Extremity: positive: Normal Capillary Refill, Normal Inspection, Normal Range of Motion. negative: Tender, Cyanosis Integumentary: positive: Normal Color, Dry, Warm. negative: Erythema, Rash, Bruising Neurologic: Limited exam, not participating in full confrontation, move LUE slight more than right, ?3/5 on R, ? 2/5 on L, tactile stimulation intact but limited on R, gait deferred CBCD WBC 6.5 K/mm3 (4.0-10.0) 05/11/17 05:35 RBC 3.98 M/mm3 (3.60-5.2) 05/11/17 05:35 Hgb 12.0 GM/dL (10.7-15.3) 05/11/17 05:35 Hct 35.8 % (32.4-45.2) 05/11/17 05:35 MCV 90.1 fl (80-96) 05/11/17 05:35 MCHC 33.5 g/dl (32.0-36.0) 05/11/17 05:35 RDW 15.5 % (11.6-15.6) 05/11/17 05:35 Plt Count 118 K/MM3 (134-434) L 05/11/17 05:35 MPV 9.3 fl (7.5-11.1) 05/11/17 05:35 CMP Sodium 142 mmol/L (136-145) 05/13/17 06:30 Potassium 3.5 mmol/L (3.5-5.1) 05/13/17 06:30 Chloride 104 mmol/L (98-107) 05/13/17 06:30 Carbon Dioxide 30 mmol/L (21-32) D 05/13/17 06:30 Anion Gap 8 (8-16) 05/13/17 06:30 BUN 8 mg/dL (7-18) 05/13/17 06:30 Creatinine 0.7 mg/dL (0.55-1.02) D 05/13/17 06:30 Creat Clearance w eGFR > 60 (>60) 05/12/17 06:25 Calcium 9.0 mg/dL (8.5-10.1) 05/13/17 06:30 Total Bilirubin 0.3 mg/dL (0.2-1.0) D 05/12/17 06:25 AST 18 U/L (15-37) 05/12/17 06:25 ALT 13 U/L (12-78) 05/12/17 06:25 Alkaline Phosphatase 59 U/L (45-117) 05/12/17 06:25 Total Protein 6.3 g/dl (6.4-8.2) L 05/12/17 06:25 Albumin 2.2 g/dl (3.4-5.0) L 05/13/17 06:30 - RADIOLOGY MRI brain reviewed CT head repeated and reviewed CD, echo reviewed Medical Decision Making female of unknown age and name with unknown medical history who presented BIBA after her called 911 because she had fallen on the floor and was not able to pick herself up after being on the floor for reportedly 24 hours. EMS states that the patient was laying on the carpeted floor on their arrival on scene at her home. The explained that he found her on the floor and she said she felt fine, so he did not call 911 until he saw her in the same place on the floor therafter. The patient was minimally responsive in the ED but able to state she was having left-sided weakness for the past three days which is what caused her to fall but thought it would pass and did not come to the hospital. There was a question of generalized seizure and positive troponins. CT head completed and did not show acute changes. MRI demonstrated subacute infarcts L temporal/parietal, L thalamic CVA. -Patient started on Keppra for seizures, getting 1000mg twice daily -Vimpat 100mg twice daily and Depakote increased to 1250mg twice daily can be continued, -Klonipin at 0.25mg has been helpful, monitor for sedation -Repeat CT head stable -Continue ASA -BP control, goal < 160/90 for now, < 140/90 as outpatient -PT/OT as tolerated -Mental status improves but can be apathetic to questins -Awaiting placement, SNF, case management coordinator involved closely -DVT ppx
--- NOTE | 2017-05-14 18:53 | PN ---
Physical Exam: SUBJECTIVE: Patient seen and examined at bedside. Patient is awake and alert sitting up in bed. She is uncooperative with questioning today and provided minimal answers. OBJECTIVE: Vital Signs Period Temp Pulse Resp BP Sys/Levine Pulse Ox Last 24 Hr 97.8 F-98.5 F 59-67 18-20 109-121/66-71 94-97 GENERAL: The patient is awake, alert, and fully oriented, in no acute distress. HEAD: Normal with no signs of trauma. EYES: extraocular movements intact, sclera anicteric, conjunctiva clear. No ptosis. NECK: Trachea midline, full range of motion, supple. LUNGS: Breath sounds equal, clear to auscultation bilaterally, no wheezes, no crackles, no accessory muscle use. HEART: Regular rate and rhythm, S1, S2 without murmur, rub or gallop. ABDOMEN: Soft, nontender, nondistended, normoactive bowel sounds, no guarding, no rebound. EXTREMITIES: 2+ pulses, warm, well-perfused, no edema. NEUROLOGICAL: Cranial nerves II through X grossly intact. Normal speech, gait not observed. SKIN: Warm, dry, normal turgor, no rashes or lesions noted Active Medications Generic Name Dose Route Start Last Admin Trade Name Freq PRN Reason Stop Dose Admin Acetaminophen 650 mg 05/02/17 06:48 Tylenol - PO Q6H PRN FEVER OR PAIN Aspirin 81 mg 05/14/17 10:00 05/14/17 09:13 Asa - PO 81 mg DAILY [facility] Administration Clonazepam 0.25 mg 05/11/17 22:00 05/14/17 09:13 Klonopin - PO 0.25 mg BID [facility] Administration Divalproex Sodium 1,250 mg 05/13/17 12:00 05/14/17 09:13 Depakote Sprinkle Caps - PO 1,250 mg BID [facility] Administration Enoxaparin Sodium 40 mg 05/04/17 16:30 05/14/17 09:12 Lovenox - SQ 40 mg DAILY [facility] Administration Sodium Chloride 1,000 mls @ 75 mls/hr 05/11/17 09:15 05/13/17 23:09 Normal Saline - IV 75 mls/hr ASDIR [facility] Administration Lacosamide 100 mg 05/13/17 10:00 05/14/17 09:12 Vimpat - PO 100 mg BID [facility] Administration Levetiracetam 1,000 mg 05/13/17 10:00 05/14/17 09:13 Keppra - PO 1,000 mg BID [facility] Administration Metoprolol Succinate 25 mg 05/02/17 10:00 05/14/17 09:13 Toprol Xl - PO 25 mg DAILY [facility] Administration Rosuvastatin Calcium 40 mg 05/02/17 22:00 05/13/17 22:01 Crestor - PO 40 mg HS [facility] Administration Senna 1 tab 05/02/17 22:00 05/13/17 22:01 Senna - PO 1 tab HS [facility] Administration ASSESSMENT/PLAN: 66 yo f w/PMH ETOH abuse w/ rest of PMH unknown presents s/p fall for 24 hours 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 #Paresis, lethargy and seizures 2/2 to residual damage from CVA -tonic movements not seen today -klonopin .25mg PO BID -Keppra 1g po BID -Depakote 1250 po BID -lacosamide 100mg PO BID # UTI - resolved -completed 4 day course of Rocephin 1g #Troponinemia 2/2 STEMI- resolved -ASA 81 daily -Toprolol XL 25mg #Lactic Acidosis- resolved #Elevated CK 2/2 acute ID vs seizure activity- resolved #NICOLÁS-resolved #FEN -no fluids indicated -monitor lytes -Dysphagia puree with nectar consistency liquids #Propylaxsis -SCDs w/ lovenox 40 mg SQ as patient is at high risk for DVT -GI- not indicated at this time #Dispo -Patient's agrees with decision to bring patient to [facility]. -ongoing planning for [facility] once patient is stable; awaiting insurance auth. Problem List - Problems (1) CVA (cerebral vascular accident) Code(s): I63.9 - CEREBRAL INFARCTION, UNSPECIFIED Qualifiers: CVA mechanism: unspecified Qualified Code(s): I63.9 - Cerebral infarction, unspecified; I63.9 - Cerebral infarction, unspecified; I63.9 - Cerebral infarction, unspecified; I63.9 - Cerebral infarction, unspecified (2) Seizure Code(s): R56.9 - UNSPECIFIED CONVULSIONS Visit type - Emergency Visit Emergency Visit: Yes ED Registration Date: 04/21/17 Care time: The patient presented to the Emergency Department on the above date and was hospitalized for further evaluation of their emergent condition. - New Patient This patient is new to me today: No - Critical Care Critical Care patient: No
--- NOTE | 2017-05-14 18:53 | PN ---
Teaching Attending Note Name of Resident: Don Lopez ATTENDING PHYSICIAN STATEMENT I saw and evaluated the patient. I reviewed the resident's note and discussed the case with the resident. I agree with the resident's findings and plan as documented. SUBJECTIVE: Patient appears comfortable. OBJECTIVE: Vital Signs Period Temp Pulse Resp BP Sys/Levine Pulse Ox Last 24 Hr 97.8 F-98.5 F 59-67 18-20 109-121/66-71 94-97 HEART: S1S2, RRR LUNGS: Clear ABDOMEN: Soft, non-distended, normal BS EXTREMITIES: No edema NEUROLOGICAL: Strength 1/5 in RUE/RLE. No twitching of RUE/RLE Current Medications Generic Name Dose Route Start Last Admin Trade Name Freq PRN Reason Stop Dose Admin Acetaminophen 650 mg 05/02/17 06:48 Tylenol - PO Q6H PRN FEVER OR PAIN Aspirin 81 mg 05/14/17 10:00 05/14/17 09:13 Asa - PO 81 mg DAILY [facility] Administration Clonazepam 0.25 mg 05/11/17 22:00 05/14/17 09:13 Klonopin - PO 0.25 mg BID [facility] Administration Divalproex Sodium 1,250 mg 05/13/17 12:00 05/14/17 09:13 Depakote Sprinkle Caps - PO 1,250 mg BID [facility] Administration Enoxaparin Sodium 40 mg 05/04/17 16:30 05/14/17 09:12 Lovenox - SQ 40 mg DAILY [facility] Administration Sodium Chloride 1,000 mls @ 75 mls/hr 05/11/17 09:15 05/13/17 23:09 Normal Saline - IV 75 mls/hr ASDIR [facility] Administration Lacosamide 100 mg 05/13/17 10:00 05/14/17 09:12 Vimpat - PO 100 mg BID [facility] Administration Levetiracetam 1,000 mg 05/13/17 10:00 05/14/17 09:13 Keppra - PO 1,000 mg BID [facility] Administration Metoprolol Succinate 25 mg 05/02/17 10:00 05/14/17 09:13 Toprol Xl - PO 25 mg DAILY [facility] Administration Rosuvastatin Calcium 40 mg 05/02/17 22:00 05/13/17 22:01 Crestor - PO 40 mg HS [facility] Administration Senna 1 tab 05/02/17 22:00 05/13/17 22:01 Senna - PO 1 tab [facility] Administration ASSESSMENT AND PLAN: This is a 66 year old woman with a history of alcohol abuse who presented to the ER after she was found on the floor by her . 1. 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 Seizures, myoclonic movements of right side - Continue Keppra, Depakote, Vimpat, Klonopin - Head CT shows evolving subacute infarct of left parietal lobe 3. Acute inferior wall STEMI - Echo shows normal LV, normal RV - Continue medical management - Continue aspirin, Toprol XL, Crestor 4. Lactic acidemia secondary to seizure - Resolved 5. Acute kidney injury likely secondary to dehydration - Resolved 6. Hypokalemia - Improved 7. Hypophosphatemia - Improved 8. Hypomagnesemia - Improved 9. Alcohol abuse 10. Rhabdomyolsis - Resolved 11. Polycythemia secondary to dehydration - Resolved 12. E. coli UTI - Completed Rocephin
[2017-05-14] MEDS: ROSUVASTATIN CA 20 MG TABLET (FP) PO SCH (21:24)
[2017-05-14] MEDS: SENNOSIDES 8.6MG TABLET (FP) PO SCH (21:24)
[2017-05-14] MEDS: SODIUM CHLORIDE 1,000 ML IV SCH (21:24)
[2017-05-15] MEDS: SODIUM CHLORIDE 1,000 ML IV SCH ×2 (07:06→09:24)
[2017-05-15] MEDS ORDERED: PT OWN MED DRAWER 7, Y5N ONE ×2 (09:11→22:27)
[2017-05-15] MEDS: ENOXAPARIN NA (PORCINE) 40 MG/0.4 ML DISP.SYRIN SQ SCH (09:22)
[2017-05-15] MEDS: DIVALPROEX SODIUM 125 MG SPRINKLE CAPS (FP) PO SCH ×2 (09:23→22:33)
[2017-05-15] MEDS: METOPROLOL SUCCINATE 25 MG TAB.SR.24H (FP) PO SCH (09:23)
[2017-05-15] MEDS: LACOSAMIDE 50 MG TABLET PO SCH ×2 (09:23→22:36)
[2017-05-15] MEDS: ASPIRIN 81 MG CHEWABLE TABLETS PO SCH (09:23)
[2017-05-15] MEDS: levETIRAcetam 500 MG TABLET (FP) PO SCH ×2 (09:23→22:36)
[2017-05-15] MEDS: clonazePAM 0.5 MG TABLET PO SCH ×2 (09:23→22:37)
--- NOTE | 2017-05-15 10:42 | PN ---
Progress Note (short form) - Note Progress Note: Lethargic and remains confused. No acute events documented overnight. Intake & Output 05/12/17 05/13/17 05/14/17 05/15/17 23:59 23:59 23:59 23:59 Intake Total 2140 2215 2233 Balance 2140 2215 2233 Last Vital Signs Temp Pulse Resp BP Pulse Ox 97.9 F 58 L 20 115/71 97 05/15/17 06:00 05/15/17 06:00 05/15/17 06:00 05/15/17 06:00 05/14/17 09:00 Active Medications Acetaminophen (Tylenol -) 650 mg PO Q6H PRN PRN Reason: FEVER OR PAIN Aspirin (Asa -) 81 mg PO DAILY [facility] Last Admin: 05/15/17 09:23 Dose: 81 mg Clonazepam (Klonopin -) 0.25 mg PO BID [facility] Last Admin: 05/15/17 09:23 Dose: 0.25 mg Divalproex Sodium (Depakote Sprinkle Caps -) 1,250 mg PO BID [facility] Last Admin: 05/15/17 09:23 Dose: 1,250 mg Enoxaparin Sodium (Lovenox -) 40 mg SQ DAILY [facility] Last Admin: 05/15/17 09:22 Dose: 40 mg Lacosamide (Vimpat -) 100 mg PO BID [facility] Last Admin: 05/15/17 09:23 Dose: 100 mg Levetiracetam (Keppra -) 1,000 mg PO BID [facility] Last Admin: 05/15/17 09:23 Dose: 1,000 mg Metoprolol Succinate (Toprol Xl -) 25 mg PO DAILY [facility] Last Admin: 05/15/17 09:23 Dose: 25 mg Rosuvastatin Calcium (Crestor -) 40 mg PO HS [facility] Last Admin: 05/14/17 21:24 Dose: 40 mg Senna (Senna -) 1 tab PO [facility] Last Admin: 05/14/17 21:24 Dose: 1 tab Constitutional: NAD Eyes: Yes: Resolved Left conjunctival hemorrhage HENT: Yes: Atraumatic, Normocephalic Neck: Yes: Supple, Trachea Midline Cardiovascular: Yes: Regular Rate and Rhythm, S1, S2 Respiratory: Yes: CTA Bilaterally Gastrointestinal: Yes: WNL, Soft, Hyperactive Bowel Sounds Renal/: Yes: Handy Present Extremities: Yes: WNL Neurological: Yes: Awake and alert, facial Droop Labs: Problem List - Problems (1) NICOLÁS (acute kidney injury) Code(s): N17.9 - ACUTE KIDNEY FAILURE, UNSPECIFIED (2) CVA (cerebral vascular accident) Code(s): I63.9 - CEREBRAL INFARCTION, UNSPECIFIED Qualifiers: CVA mechanism: unspecified Qualified Code(s): I63.9 - Cerebral infarction, unspecified (3) Lactic acidosis Code(s): E87.2 - ACIDOSIS (4) Seizure Code(s): R56.9 - UNSPECIFIED CONVULSIONS Assessment/Plan AEDs per Neuro PT BP meds as ordered Beta iron No Pulmonary contraindication for D/C planning Dr Early
--- NOTE | 2017-05-15 12:34 | PN ---
Physical Exam: SUBJECTIVE: Patient seen and examined OBJECTIVE: Vital Signs Period Temp Pulse Resp BP Sys/Levine Pulse Ox Last 24 Hr 96.6 F-98.4 F 58-67 18-20 94-117/65-71 98 GENERAL: The patient is awake, alert, in no acute distress. LUNGS: Breath sounds equal, clear to auscultation bilaterally, no wheezes, no crackles, no accessory muscle use. HEART: Regular rate and rhythm, S1, S2 without murmur, rub or gallop. ABDOMEN: Soft, nontender, nondistended, normoactive bowel sounds, no guarding, no rebound, no hepatosplenomegaly, no masses. EXTREMITIES: 2+ pulses, warm, well-perfused, no edema. NEUROLOGICAL: Strength 1/5 in RUE/RLE. No twitching of RUE/RLE Active Medications Generic Name Dose Route Start Last Admin Trade Name Freq PRN Reason Stop Dose Admin Acetaminophen 650 mg 05/02/17 06:48 Tylenol - PO Q6H PRN FEVER OR PAIN Aspirin 81 mg 05/14/17 10:00 05/15/17 09:23 Asa - PO 81 mg DAILY [facility] Administration Clonazepam 0.25 mg 05/11/17 22:00 05/15/17 09:23 Klonopin - PO 0.25 mg BID [facility] Administration Divalproex Sodium 1,250 mg 05/13/17 12:00 05/15/17 09:23 Depakote Sprinkle Caps - PO 1,250 mg BID [facility] Administration Enoxaparin Sodium 40 mg 05/04/17 16:30 05/15/17 09:22 Lovenox - SQ 40 mg DAILY [facility] Administration Lacosamide 100 mg 05/13/17 10:00 05/15/17 09:23 Vimpat - PO 100 mg BID [facility] Administration Levetiracetam 1,000 mg 05/13/17 10:00 05/15/17 09:23 Keppra - PO 1,000 mg BID [facility] Administration Metoprolol Succinate 25 mg 05/02/17 10:00 05/15/17 09:23 Toprol Xl - PO 25 mg DAILY [facility] Administration Rosuvastatin Calcium 40 mg 05/02/17 22:00 05/14/17 21:24 Crestor - PO 40 mg HS [facility] Administration Senna 1 tab 05/02/17 22:00 05/14/17 21:24 Senna - PO 1 tab HS [facility] Administration ASSESSMENT/PLAN: This is a 66 year old woman with a history of alcohol abuse who presented to the ER after she was found on the floor by her . 1. 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 Seizures, myoclonic movements of right side - Continue Keppra, Depakote, Vimpat, Klonopin - Head CT shows evolving subacute infarct of left parietal lobe 3. Acute inferior wall STEMI - Echo shows normal LV, normal RV - Continue medical management - Continue aspirin, Toprol XL, Crestor 4. Lactic acidemia secondary to seizure - Resolved 5. Acute kidney injury likely secondary to dehydration - Resolved 6. Hypokalemia - Improved 7. Hypophosphatemia - Improved 8. Hypomagnesemia - Improved 9. Alcohol abuse 10. Rhabdomyolsis - Resolved 11. Polycythemia secondary to dehydration - Resolved 12. E. coli UTI - Completed [facility] Visit type - Emergency Visit Emergency Visit: Yes ED Registration Date: 04/21/17 Care time: The patient presented to the Emergency Department on the above date and was hospitalized for further evaluation of their emergent condition. - New Patient This patient is new to me today: No - Critical Care Critical Care patient: No - Discharge Referral Referred to [facility] No
[2017-05-15] MEDS: ROSUVASTATIN CA 20 MG TABLET (FP) PO SCH (22:32)
[2017-05-15] MEDS: SENNOSIDES 8.6MG TABLET (FP) PO SCH (22:35)
[2017-05-16 08:28] LABS: ANION GAP 8 (8-16); CALCIUM 9.3 mg/dL (8.5-10.1); CO2 28 mmol/L (21-32); CREATININE 0.6 mg/dL (0.55-1.02); GLUCOSE,RANDOM 80 mg/dL (74-106)
[2017-05-16 08:31] LABS: MCH 29.3 pg (25.7-33.7); MCHC 33.4 g/dl (32.0-36.0); MEAN CELL VOLUME 87.8 fl (80-96); MEAN PLT VOLUME 9.3 fl (7.5-11.1); PLATELET COUNT 110 K/MM3 (134-434); RDW 15.5 % (11.6-15.6); WHITE BLOOD COUNT 7.9 K/mm3 (4.0-10.0)
[2017-05-16] MEDS ORDERED: PT OWN MED DRAWER 7, Y5N ONE (09:29)
[2017-05-16] MEDS: METOPROLOL SUCCINATE 25 MG TAB.SR.24H (FP) PO SCH ×2 (09:40→11:42)
[2017-05-16] MEDS: clonazePAM 0.5 MG TABLET PO SCH ×3 (09:40→21:37)
[2017-05-16] MEDS: levETIRAcetam 500 MG TABLET (FP) PO SCH ×2 (09:40→10:13)
[2017-05-16] MEDS: ASPIRIN 81 MG CHEWABLE TABLETS PO SCH ×2 (09:40→11:41)
[2017-05-16] MEDS: LACOSAMIDE 50 MG TABLET PO SCH ×3 (09:40→21:37)
[2017-05-16] MEDS: ENOXAPARIN NA (PORCINE) 40 MG/0.4 ML DISP.SYRIN SQ SCH (09:40)
[2017-05-16] MEDS: DIVALPROEX SODIUM 125 MG SPRINKLE CAPS (FP) PO SCH ×3 (09:40→22:04)
--- NOTE | 2017-05-16 09:59 | PN ---
Teaching Attending Note Name of Resident: Don Lopez ATTENDING PHYSICIAN STATEMENT I saw and evaluated the patient. I reviewed the resident's note and discussed the case with the resident. I agree with the resident's findings and plan as documented. SUBJECTIVE: OBJECTIVE: Vital Signs Period Temp Pulse Resp BP Sys/Levine Pulse Ox Last 24 Hr 97.8 F-99.3 F 62-71 18-20 107-146/68-82 96 Current Medications Generic Name Dose Route Start Last Admin Trade Name Freq PRN Reason Stop Dose Admin Acetaminophen 650 mg 05/02/17 06:48 Tylenol - PO Q6H PRN FEVER OR PAIN Aspirin 81 mg 05/14/17 10:00 05/16/17 09:40 Asa - PO 81 mg DAILY [facility] Administration Clonazepam 0.25 mg 05/11/17 22:00 05/16/17 09:40 Klonopin - PO 0.25 mg BID [facility] Administration Divalproex Sodium 1,250 mg 05/13/17 12:00 05/16/17 09:40 Depakote Sprinkle Caps - PO 1,250 mg BID [facility] Administration Enoxaparin Sodium 40 mg 05/04/17 16:30 05/16/17 09:40 Lovenox - SQ 40 mg DAILY [facility] Administration Lacosamide 100 mg 05/13/17 10:00 05/16/17 09:40 Vimpat - PO 100 mg BID [facility] Administration Levetiracetam 1,000 mg 05/13/17 10:00 05/16/17 09:40 Keppra - PO 1,000 mg BID [facility] Administration Metoprolol Succinate 25 mg 05/02/17 10:00 05/16/17 09:40 Toprol Xl - PO 25 mg DAILY [facility] Administration Rosuvastatin Calcium 40 mg 05/02/17 22:00 05/15/17 22:32 Crestor - PO 40 mg HS [facility] Administration Senna 1 tab 05/02/17 22:00 05/15/17 22:35 Senna - PO 1 tab HS [facility] Administration ASSESSMENT AND PLAN:
--- NOTE | 2017-05-16 10:07 | PN ---
Progress Note (short form) - Note Progress Note: Neurology This is a female of unknown age and name with unknown medical history who presented BIBA after her called 911 because she had fallen on the floor and was not able to pick herself up after being on the floor for reportedly 24 hours. EMS states that the patient was laying on the carpeted floor on their arrival on scene at her home. The explained that he found her on the floor and she said she felt fine, so he did not call 911 until he saw her in the same place on the floor therafter. The patient was minimally responsive in the ED but able to state she was having left-sided weakness for the past three days which is what caused her to fall but thought it would pass and did not come to the hospital. She was out of TPA window. MRI completed and showed subacute infarcts L temporal/parietal, L thalamic and she does have right sided deficits. There was some facial twitching and patient put on Keppra, increased to 1000mg twice a day, Vimpat also started 100mg twice daily, Depakote also started with good control. Patient on ASA 81mg. CD without hemodynamically significant stenosis, Echo complete and LV function normal. Completed Abx for UTI. Some mild twitching, depakote had been attempted to increase to 1250mg twice daily. Tolerating Klonipin 0.25mg at this time. Family now involved and has been stable. Does have occasional twitching during the day but stable and subside. Patient stable, has been interactive and improved. No twitching noted during my visit. Able to tell me she's at [facility]. Spoke to licensed master social worker and patient accepted at [facility], awaiting insurance clearance. Active Medications Acetaminophen (Tylenol -) 650 mg PO Q6H PRN PRN Reason: FEVER OR PAIN Aspirin (Asa -) 81 mg PO DAILY [facility] Last Admin: 05/16/17 09:40 Dose: 81 mg Clonazepam (Klonopin -) 0.25 mg PO BID [facility] Last Admin: 05/16/17 09:40 Dose: 0.25 mg Divalproex Sodium (Depakote Sprinkle Caps -) 1,250 mg PO BID [facility] Last Admin: 05/16/17 09:40 Dose: 1,250 mg Enoxaparin Sodium (Lovenox -) 40 mg SQ DAILY [facility] Last Admin: 05/16/17 09:40 Dose: 40 mg Lacosamide (Vimpat -) 100 mg PO BID [facility] Last Admin: 05/16/17 09:40 Dose: 100 mg Lacosamide (Vimpat Injection -) 100 mg IVPB ONCE ONE Stop: 05/16/17 10:01 Levetiracetam (Keppra -) 1,000 mg PO BID [facility] Last Admin: 05/16/17 09:40 Dose: 1,000 mg Levetiracetam (Keppra Injection -) 1,000 mg IVPB ONCE ONE Stop: 05/16/17 10:00 Lorazepam (Ativan Injection -) 0.5 mg IVPUSH ONCE ONE Stop: 05/16/17 09:59 Metoprolol Succinate (Toprol Xl -) 25 mg PO DAILY [facility] Last Admin: 05/16/17 09:40 Dose: 25 mg Rosuvastatin Calcium (Crestor -) 40 mg PO HS [facility] Last Admin: 05/15/17 22:32 Dose: 40 mg Senna (Senna -) 1 tab PO HS [facility] Last Admin: 05/15/17 22:35 Dose: 1 tab Valproate Sodium (Depacon Injection -) 1,250 mg IVPB ONCE ONE Stop: 05/16/17 10:00 *Physical Exam Vital Signs Period Temp Pulse Resp BP Sys/Levine Pulse Ox Last 24 Hr 97.8 F-99.3 F 62-71 18-20 107-146/68-82 96 - Physical Exam General Appearance: Yes: Disheveled, HEENT: positive: Hearing Grossly Normal, Neck: positive: Trachea midline, Supple. negative: Tender, Rigid Respiratory/Chest: positive: Lungs Clear, Normal Breath Sounds. negative: Respiratory Distress, Crackles, Rhonchi, Stridor, Wheezing Cardiovascular: positive: Regular Rhythm, Regular Rate. negative: Murmur Gastrointestinal/Abdominal: positive: Normal Bowel Sounds, Soft. negative: Tender, Organomegaly, Pulsatile Mass, Guarding Musculoskeletal: positive: Normal Inspection. negative: Decreased Range of Motion, Vertebral Tenderness Extremity: positive: Normal Capillary Refill, Normal Inspection, Normal Range of Motion. negative: Tender, Cyanosis Integumentary: positive: Normal Color, Dry, Warm. negative: Erythema, Rash, Bruising Neurologic: Limited exam, not participating in full confrontation, move LUE slight more than right, ?3/5 on R, ? 2/5 on L, tactile stimulation intact but limited on R, gait deferred CBCD WBC 7.9 K/mm3 (4.0-10.0) 05/16/17 07:45 RBC 4.11 M/mm3 (3.60-5.2) 05/16/17 07:45 Hgb 12.0 GM/dL (10.7-15.3) 05/16/17 07:45 Hct 36.1 % (32.4-45.2) 05/16/17 07:45 MCV 87.8 fl (80-96) 05/16/17 07:45 MCHC 33.4 g/dl (32.0-36.0) 05/16/17 07:45 RDW 15.5 % (11.6-15.6) 05/16/17 07:45 Plt Count 110 K/MM3 (134-434) L 05/16/17 07:45 MPV 9.3 fl (7.5-11.1) 05/16/17 07:45 CMP Sodium 139 mmol/L (136-145) 05/16/17 07:45 Potassium 3.3 mmol/L (3.5-5.1) L 05/16/17 07:45 Chloride 103 mmol/L (98-107) 05/16/17 07:45 Carbon Dioxide 28 mmol/L (21-32) 05/16/17 07:45 Anion Gap 8 (8-16) 05/16/17 07:45 BUN 7 mg/dL (7-18) 05/16/17 07:45 Creatinine 0.6 mg/dL (0.55-1.02) 05/16/17 07:45 Creat Clearance w eGFR > 60 (>60) 05/12/17 06:25 Calcium 9.3 mg/dL (8.5-10.1) 05/16/17 07:45 Total Bilirubin 0.3 mg/dL (0.2-1.0) D 05/12/17 06:25 AST 18 U/L (15-37) 05/12/17 06:25 ALT 13 U/L (12-78) 05/12/17 06:25 Alkaline Phosphatase 59 U/L (45-117) 10/12/17 06:25 Total Protein 6.3 g/dl (6.4-8.2) L 05/12/17 06:25 Albumin 2.2 g/dl (3.4-5.0) L 05/13/17 06:30 - RADIOLOGY MRI brain reviewed CT head repeated and reviewed CD, echo reviewed Medical Decision Making female of unknown age and name with unknown medical history who presented BIBA after her called 911 because she had fallen on the floor and was not able to pick herself up after being on the floor for reportedly 24 hours. EMS states that the patient was laying on the carpeted floor on their arrival on scene at her home. The explained that he found her on the floor and she said she felt fine, so he did not call 911 until he saw her in the same place on the floor therafter. The patient was minimally responsive in the ED but able to state she was having left-sided weakness for the past three days which is what caused her to fall but thought it would pass and did not come to the hospital. There was a question of generalized seizure and positive troponins. CT head completed and did not show acute changes. MRI demonstrated subacute infarcts L temporal/parietal, L thalamic CVA. -Patient on Keppra for seizures, getting 1000mg twice daily -Vimpat 100mg twice daily and Depakote increased to 1250mg twice daily can be continued, -Klonipin at 0.25mg has been helpful, monitor for sedation -Continue ASA -BP control, goal < 160/90 for now, < 140/90 as outpatient -PT/OT as tolerated -Mental status improved -Awaiting placement, SNF, spoke to behavioral health care manager -DVT ppx
[2017-05-16] MEDS ORDERED: LORazepam 2 MG/ML SDV VIAL IVPUSH ONE (10:30)
[2017-05-16] MEDS ORDERED: Lacosamide 200 MG/20 ML VIAL IVPB ONE ×2 (10:30→14:45)
[2017-05-16] MEDS ORDERED: VALPROATE SODIUM 500 MG/5 ML VIAL IVPB ONE ×2 (11:00→22:00)
[2017-05-16] MEDS ORDERED: levETIRAcetam 500 MG/5 ML INJECTION VIAL IVPB ONE (11:00)
--- NOTE | 2017-05-16 11:43 | PN ---
Teaching Attending Note Name of Resident: Don Lopez ATTENDING PHYSICIAN STATEMENT I saw and evaluated the patient. I reviewed the resident's note and discussed the case with the resident. I agree with the resident's findings and plan as documented. SUBJECTIVE: OBJECTIVE: Vital Signs Period Temp Pulse Resp BP Sys/Levine Pulse Ox Last 24 Hr 97.8 F-99.3 F 62-71 18-20 107-146/68-82 96 Current Medications Generic Name Dose Route Start Last Admin Trade Name Freq PRN Reason Stop Dose Admin Acetaminophen 650 mg 05/02/17 06:48 Tylenol - PO Q6H PRN FEVER OR PAIN Aspirin 81 mg 05/14/17 10:00 05/16/17 11:41 Asa - PO Not Given DAILY [facility] Clonazepam 0.25 mg 05/11/17 22:00 05/16/17 11:42 Klonopin - PO Not Given BID [facility] Divalproex Sodium 1,250 mg 05/13/17 12:00 05/16/17 10:12 Depakote Sprinkle Caps - PO Not Given BID [facility] Enoxaparin Sodium 40 mg 05/04/17 16:30 05/16/17 09:40 Lovenox - SQ 40 mg DAILY [facility] Administration Lacosamide 100 mg 05/13/17 10:00 05/16/17 10:13 Vimpat - PO Not Given BID [facility] Levetiracetam 1,000 mg 05/13/17 10:00 05/16/17 10:13 Keppra - PO Not Given BID [facility] Metoprolol Succinate 25 mg 05/02/17 10:00 05/16/17 11:42 Toprol Xl - PO Not Given DAILY [facility] Rosuvastatin Calcium 40 mg 05/02/17 22:00 05/15/17 22:32 Crestor - PO 40 mg HS [facility] Administration Senna 1 tab 05/02/17 22:00 05/15/17 22:35 Senna - PO 1 tab HS [facility] Administration ASSESSMENT AND PLAN:
--- NOTE | 2017-05-16 17:51 | PN ---
Physical Exam: SUBJECTIVE: Patient seen and examined. no new complaints. less talkative today. excessive facial twitching necessities transition of medications back to IV. OBJECTIVE: Vital Signs Period Temp Pulse Resp BP Sys/Levine Pulse Ox Last 24 Hr 98.5 F-99.3 F 70-71 18-18 107-146/68-80 96-96 GENERAL: The patient is awake, alert, and fully oriented, in no acute distress. HEAD: Normal with no signs of trauma. EYES: extraocular movements intact, sclera anicteric, conjunctiva clear. No ptosis. NECK: Trachea midline, full range of motion, supple. LUNGS: Breath sounds equal, clear to auscultation bilaterally, no wheezes, no crackles, no accessory muscle use. HEART: Regular rate and rhythm, S1, S2 without murmur, rub or gallop. ABDOMEN: Soft, nontender, nondistended, normoactive bowel sounds, no guarding, no rebound, no hepatosplenomegaly, no masses. EXTREMITIES: 2+ pulses, warm, well-perfused, no edema. NEUROLOGICAL: Cranial nerves II through X grossly intact. Normal speech, gait not observed. SKIN: Warm, dry, normal turgor, no rashes or lesions noted Laboratory Results - last 24 hr 05/16/17 05/16/17 07:45 07:45 WBC 7.9 RBC 4.11 Hgb 12.0 Hct 36.1 MCV 87.8 MCH 29.3 MCHC 33.4 RDW 15.5 Plt Count 110 L MPV 9.3 Sodium 139 Potassium 3.3 L Chloride 103 Carbon Dioxide 28 Anion Gap 8 BUN 7 Creatinine 0.6 Random Glucose 80 Calcium 9.3 Active Medications Generic Name Dose Route Start Last Admin Trade Name Freq PRN Reason Stop Dose Admin Acetaminophen 650 mg 05/02/17 06:48 Tylenol - PO Q6H PRN FEVER OR PAIN Aspirin 81 mg 05/14/17 10:00 05/16/17 11:41 Asa - PO Not Given DAILY [facility] Clonazepam 0.25 mg 05/11/17 22:00 05/16/17 11:42 Klonopin - PO Not Given BID [facility] Divalproex Sodium 1,250 mg 05/13/17 12:00 05/16/17 10:12 Depakote Sprinkle Caps - PO Not Given BID [facility] Enoxaparin Sodium 40 mg 05/04/17 16:30 05/16/17 09:40 Lovenox - SQ 40 mg DAILY [facility] Administration Lacosamide 100 mg 05/13/17 10:00 05/16/17 10:13 Vimpat - PO Not Given BID [facility] Levetiracetam 1,000 mg 05/13/17 10:00 05/16/17 10:13 Keppra - PO Not Given BID [facility] Metoprolol Succinate 25 mg 05/02/17 10:00 05/16/17 11:42 Toprol Xl - PO Not Given DAILY [facility] Rosuvastatin Calcium 40 mg 05/02/17 22:00 05/15/17 22:32 Crestor - PO 40 mg HS [facility] Administration Senna 1 tab 05/02/17 22:00 05/15/17 22:35 Senna - PO 1 tab HS [facility] Administration ASSESSMENT/PLAN: 66 yo f w/PMH ETOH abuse w/ rest of PMH unknown presents s/p fall for 24 hours 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 #Paresis, lethargy and seizures 2/2 to residual damage from CVA -converted below medications to IV one time, will try PO intake this evening. .5 ativan given this AM for violent twitching. -klonopin .25mg PO BID -Keppra 1g po BID -Depakote 1250 po BID -lacosamide 100mg PO BID # UTI - resolved -completed 4 day course of Rocephin 1g #Troponinemia 2/2 STEMI- resolved -ASA 81 daily -Toprolol XL 25mg #Lactic Acidosis- resolved #Elevated CK 2/2 acute NV vs seizure activity- resolved #NICOLÁS-resolved #FEN -no fluids indicated -monitor lytes -Dysphagia puree with nectar consistency liquids #Propylaxsis -SCDs w/ lovenox 40 mg SQ as patient is at high risk for DVT -GI- not indicated at this time #Dispo -Patient's agrees with decision to bring patient to [facility]. -ongoing planning for [facility] once patient is stable Problem List - Problems (1) CVA (cerebral vascular accident) Code(s): I63.9 - CEREBRAL INFARCTION, UNSPECIFIED Qualifiers: CVA mechanism: unspecified Qualified Code(s): I63.9 - Cerebral infarction, unspecified; I63.9 - Cerebral infarction, unspecified; I63.9 - Cerebral infarction, unspecified; I63.9 - Cerebral infarction, unspecified (2) Seizure Code(s): R56.9 - UNSPECIFIED CONVULSIONS Visit type - Emergency Visit Emergency Visit: Yes ED Registration Date: 04/21/17 Care time: The patient presented to the Emergency Department on the above date and was hospitalized for further evaluation of their emergent condition. - New Patient This patient is new to me today: No - Critical Care Critical Care patient: No
[2017-05-16] MEDS: ROSUVASTATIN CA 20 MG TABLET (FP) PO SCH (21:35)
[2017-05-16] MEDS: levETIRAcetam 500 MG/5 ML ORAL SOLUTION (UNIT-DOSE CUPS) PO SCH (21:37)
[2017-05-16] MEDS: SENNOSIDES 8.6MG TABLET (FP) PO SCH (21:38)
--- NOTE | 2017-05-17 06:23 | PN ---
Physical Exam: SUBJECTIVE: Patient seen and examined at bedside. Patient continues to be lethargic and less talkative. Patient was able to take most of her PO meds last night except for her keppra, which was given IV. Patient unable to tolerate PO Meds today. OBJECTIVE: Vital Signs Period Temp Pulse Resp BP Sys/Levine Pulse Ox Last 24 Hr 98.5 F-98.8 F 71-74 18-18 100-107/57-77 96-97 GENERAL: The patient is lethargic, unable to ascertain orientation as patient is not responding to questions. Patient able to speak if coaxed. HEAD: Normal with no signs of trauma. EYES: extraocular movements intact, sclera anicteric, conjunctiva clear. No ptosis. NECK: Trachea midline, full range of motion, supple. LUNGS: Breath sounds equal, clear to auscultation bilaterally, no wheezes, no crackles, no accessory muscle use. HEART: Regular rate and rhythm, S1, S2 without murmur, rub or gallop. ABDOMEN: Soft, nontender, nondistended, normoactive bowel sounds, no guarding, no rebound. EXTREMITIES: 2+ pulses, warm, well-perfused, no edema. NEUROLOGICAL: Cranial nerves II through X grossly intact. Normal speech, gait not observed. PSYCH: Normal mood, normal affect. SKIN: Warm, dry, normal turgor, no rashes or lesions noted Laboratory Results - last 24 hr 05/16/17 05/16/17 07:45 07:45 WBC 7.9 RBC 4.11 Hgb 12.0 Hct 36.1 MCV 87.8 MCH 29.3 MCHC 33.4 RDW 15.5 Plt Count 110 L MPV 9.3 Sodium 139 Potassium 3.3 L Chloride 103 Carbon Dioxide 28 Anion Gap 8 BUN 7 Creatinine 0.6 Random Glucose 80 Calcium 9.3 Active Medications Generic Name Dose Route Start Last Admin Trade Name Freq PRN Reason Stop Dose Admin Acetaminophen 650 mg 05/02/17 06:48 Tylenol - PO Q6H PRN FEVER OR PAIN Aspirin 81 mg 05/14/17 10:00 05/16/17 11:41 Asa - PO Not Given DAILY [facility] Clonazepam 0.25 mg 05/11/17 22:00 05/16/17 21:37 Klonopin - PO 0.25 mg BID [facility] Administration Divalproex Sodium 1,250 mg 05/13/17 12:00 05/16/17 22:04 Depakote Sprinkle Caps - PO Not Given BID [facility] Enoxaparin Sodium 40 mg 05/04/17 16:30 05/16/17 09:40 Lovenox - SQ 40 mg DAILY [facility] Administration Lacosamide 100 mg 05/13/17 10:00 05/16/17 21:37 Vimpat - PO 100 mg BID [facility] Administration Levetiracetam 1,000 mg 05/16/17 20:38 05/16/17 21:37 Keppra Oral Solution - PO 1,000 mg BID [facility] Administration Metoprolol Succinate 25 mg 05/02/17 10:00 05/16/17 11:42 Toprol Xl - PO Not Given DAILY [facility] Rosuvastatin Calcium 40 mg 05/02/17 22:00 05/16/17 21:35 Crestor - PO 40 mg HS [facility] Administration Senna 1 tab 05/02/17 22:00 05/16/17 21:38 Senna - PO Not Given HS [facility] ASSESSMENT/PLAN: 66 yo f w/PMH ETOH abuse w/ rest of PMH unknown presents s/p fall for 24 hours 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 #Paresis, lethargy and seizures 2/2 to residual damage from CVA -converted medications to IV as patient unable to tolerate PO. -klonopin .25mg PO BID -Keppra 1g IV BID -Depakote 1250 IV BID -lacosamide 100mg IV BID #swelling on right side of back -US shows complex collection suspicious for abscess -afebrile -will consult surgery for I&D # UTI - resolved -completed 4 day course of Rocephin 1g #Troponinemia 2/2 STEMI- resolved -ASA 81 daily -Toprolol XL 25mg #Lactic Acidosis- resolved #Elevated CK 2/2 acute CO vs seizure activity- resolved #NICOLÁS-resolved #FEN -no fluids indicated -monitor lytes -Dysphagia puree with nectar consistency liquids #Propylaxsis -SCDs w/ lovenox 40 mg SQ as patient is at high risk for DVT -GI- not indicated at this time #Dispo -Patient's agrees with decision to bring patient to [facility]. -ongoing planning for [facility] once patient is stable Problem List - Problems (1) CVA (cerebral vascular accident) Code(s): I63.9 - CEREBRAL INFARCTION, UNSPECIFIED Qualifiers: CVA mechanism: unspecified Qualified Code(s): I63.9 - Cerebral infarction, unspecified; I63.9 - Cerebral infarction, unspecified; I63.9 - Cerebral infarction, unspecified; I63.9 - Cerebral infarction, unspecified (2) Seizure Code(s): R56.9 - UNSPECIFIED CONVULSIONS Visit type - Emergency Visit Emergency Visit: Yes ED Registration Date: 04/21/17 Care time: The patient presented to the Emergency Department on the above date and was hospitalized for further evaluation of their emergent condition. - New Patient This patient is new to me today: No - Critical Care Critical Care patient: No
[2017-05-17] MEDS ORDERED: PT OWN MED DRAWER 7, Y5N ONE ×5 (09:30→17:35)
[2017-05-17] MEDS: clonazePAM 0.5 MG TABLET PO SCH ×2 (09:34→21:41)
--- NOTE | 2017-05-17 10:04 | PN ---
Progress Note (short form) - Note Progress Note: Neurology This is a female of unknown age and name with unknown medical history who presented BIBA after her called 911 because she had fallen on the floor and was not able to pick herself up after being on the floor for reportedly 24 hours. EMS states that the patient was laying on the carpeted floor on their arrival on scene at her home. The explained that he found her on the floor and she said she felt fine, so he did not call 911 until he saw her in the same place on the floor therafter. The patient was minimally responsive in the ED but able to state she was having left-sided weakness for the past three days which is what caused her to fall but thought it would pass and did not come to the hospital. She was out of TPA window. MRI completed and showed subacute infarcts L temporal/parietal, L thalamic and she does have right sided deficits. There was some facial twitching and patient put on Keppra, increased to 1000mg twice a day, Vimpat also started 100mg twice daily, Depakote also started with good control. Patient on ASA 81mg. CD without hemodynamically significant stenosis, Echo complete and LV function normal. Completed Abx for UTI. Some mild twitching, depakote had been increased to 1250mg twice daily. Tolerating Klonipin 0.25mg at this time. Patient with twitching overnight, this morning more somnolent. Not following commands and not verbalizing with me this AM. May need to convert medication from PO to IV. Active Medications Acetaminophen (Tylenol -) 650 mg PO Q6H PRN PRN Reason: FEVER OR PAIN Aspirin (Asa -) 81 mg PO DAILY [facility] Last Admin: 05/16/17 11:41 Dose: Not Given Clonazepam (Klonopin -) 0.25 mg PO BID [facility] Last Admin: 05/17/17 09:34 Dose: 0.25 mg Divalproex Sodium (Depakote Sprinkle Caps -) 1,250 mg PO BID [facility] Last Admin: 05/16/17 22:04 Dose: Not Given Enoxaparin Sodium (Lovenox -) 40 mg SQ DAILY [facility] Last Admin: 05/16/17 09:40 Dose: 40 mg Lacosamide (Vimpat -) 100 mg PO BID [facility] Last Admin: 05/16/17 21:37 Dose: 100 mg Levetiracetam (Keppra Oral Solution -) 1,000 mg PO BID [facility] Last Admin: 05/16/17 21:37 Dose: 1,000 mg Metoprolol Succinate (Toprol Xl -) 25 mg PO DAILY [facility] Last Admin: 05/16/17 11:42 Dose: Not Given Rosuvastatin Calcium (Crestor -) 40 mg PO [facility] Last Admin: 05/16/17 21:35 Dose: 40 mg Senna (Senna -) 1 tab PO [facility] Last Admin: 05/16/17 21:38 Dose: Not Given *Physical Exam Vital Signs Temperature 97.7 F 05/17/17 06:22 Pulse Rate 77 05/17/17 06:22 Respiratory Rate 18 05/17/17 06:22 Blood Pressure 99/63 05/17/17 06:22 O2 Sat by Pulse Oximetry (%) 97 05/16/17 21:00 - Physical Exam General Appearance: Yes: Disheveled, HEENT: positive: Hearing Grossly Normal, Neck: positive: Trachea midline, Supple. negative: Tender, Rigid Respiratory/Chest: positive: Lungs Clear, Normal Breath Sounds. negative: Respiratory Distress, Crackles, Rhonchi, Stridor, Wheezing Cardiovascular: positive: Regular Rhythm, Regular Rate. negative: Murmur Gastrointestinal/Abdominal: positive: Normal Bowel Sounds, Soft. negative: Tender, Organomegaly, Pulsatile Mass, Guarding Musculoskeletal: positive: Normal Inspection. negative: Decreased Range of Motion, Vertebral Tenderness Extremity: positive: Normal Capillary Refill, Normal Inspection, Normal Range of Motion. negative: Tender, Cyanosis Integumentary: positive: Normal Color, Dry, Warm. negative: Erythema, Rash, Bruising Neurologic: Limited exam, not participating in full confrontation, move LUE slight more than right, ?3/5 on R, ? 2/5 on L, tactile stimulation intact but limited on R, gait deferred CBCD WBC 7.9 K/mm3 (4.0-10.0) 05/16/17 07:45 RBC 4.11 M/mm3 (3.60-5.2) 05/16/17 07:45 Hgb 12.0 GM/dL (10.7-15.3) 05/16/17 07:45 Hct 36.1 % (32.4-45.2) 05/16/17 07:45 MCV 87.8 fl (80-96) 05/16/17 07:45 MCHC 33.4 g/dl (32.0-36.0) 05/16/17 07:45 RDW 15.5 % (11.6-15.6) 05/16/17 07:45 Plt Count 110 K/MM3 (134-434) L 05/16/17 07:45 MPV 9.3 fl (7.5-11.1) 05/16/17 07:45 CMP Sodium 139 mmol/L (136-145) 05/16/17 07:45 Potassium 3.3 mmol/L (3.5-5.1) L 05/16/17 07:45 Chloride 103 mmol/L (98-107) 05/16/17 07:45 Carbon Dioxide 28 mmol/L (21-32) 05/16/17 07:45 Anion Gap 8 (8-16) 05/16/17 07:45 BUN 7 mg/dL (7-18) 05/16/17 07:45 Creatinine 0.6 mg/dL (0.55-1.02) 05/16/17 07:45 Creat Clearance w eGFR > 60 (>60) 05/12/17 06:25 Calcium 9.3 mg/dL (8.5-10.1) 05/16/17 07:45 Total Bilirubin 0.3 mg/dL (0.2-1.0) D 05/12/17 06:25 AST 18 U/L (15-37) 05/12/17 06:25 ALT 13 U/L (12-78) 05/12/17 06:25 Alkaline Phosphatase 59 U/L (45-117) 05/12/17 06:25 Total Protein 6.3 g/dl (6.4-8.2) L 05/12/17 06:25 Albumin 2.2 g/dl (3.4-5.0) L 05/13/17 06:30 - RADIOLOGY MRI brain reviewed CT head repeated and reviewed CD, echo reviewed Medical Decision Making female of unknown age and name with unknown medical history who presented BIBA after her called 911 because she had fallen on the floor and was not able to pick herself up after being on the floor for reportedly 24 hours. EMS states that the patient was laying on the carpeted floor on their arrival on scene at her home. The explained that he found her on the floor and she said she felt fine, so he did not call 911 until he saw her in the same place on the floor therafter. The patient was minimally responsive in the ED but able to state she was having left-sided weakness for the past three days which is what caused her to fall but thought it would pass and did not come to the hospital. There was a question of generalized seizure and positive troponins. CT head completed and did not show acute changes. MRI demonstrated subacute infarcts L temporal/parietal, L thalamic CVA. -Patient on Keppra for seizures, getting 1000mg twice daily, may need to be IV for now -Vimpat 100mg twice daily and Depakote increased to 1250mg twice daily can be continued, may need to be IV -Klonipin at 0.25mg has been helpful, monitor for sedation -Continue ASA -IF not more awake by afternoon, would check repeat CT head -Monitor labs, check white count, metabolic changes -BP control, goal < 160/90 for now, < 140/90 as outpatient -PT/OT as tolerated -Mental status improved -Awaiting placement, on hold for now -DVT ppx
[2017-05-17] MEDS: levETIRAcetam 500 MG/5 ML ORAL SOLUTION (UNIT-DOSE CUPS) PO SCH ×2 (10:38→13:47)
[2017-05-17] MEDS: LACOSAMIDE 50 MG TABLET PO SCH ×2 (10:38→13:47)
--- NOTE | 2017-05-17 13:39 | PN ---
Progress Note, ADMITTING CLERK - Note Progress Note: Late entry from yesterday and follow up today. Seen yesterday with lethargy and poor PO acceptance/tolerance.She had a seizure witnessed by nursing. Reported by nursing to b spitting out puree./meds,only accepted liquid medication. Selected Entries 05/15/17 05/15/17 05/15/17 11:18 15:06 18:29 Breakfast 50% Lunch 50% Supper 25% Temperature 05/15/17 05/16/17 05/16/17 22:00 06:00 10:00 Breakfast 25% Lunch Supper 25% Temperature 99.3 F 98.5 F 05/16/17 05/16/17 05/17/17 18:30 22:00 06:22 Breakfast Lunch Supper 0 0 Temperature 98.8 F 97.7 F 05/17/17 05/17/17 10:00 11:47 Breakfast 0 Lunch Supper Temperature 98.2 F Lethargy persists. Consider medication iv if possible. Pt may tolerate PO better, with small sips of liquid, when sufficiently awake. Encourage liquid supplements order at present is Dysphagia Puree/[place] thick liquid diet and supplements- Ensure pudding/magic cup Mix puree into soup, Consider Ensure compact. Palliative care consult f/u regarding pt's wishes for tube feeding.
[2017-05-17] MEDS: METOPROLOL SUCCINATE 25 MG TAB.SR.24H (FP) PO SCH (13:47)
[2017-05-17] MEDS: ASPIRIN 81 MG CHEWABLE TABLETS PO SCH (13:47)
[2017-05-17] MEDS: DIVALPROEX SODIUM 125 MG SPRINKLE CAPS (FP) PO SCH (13:47)
[2017-05-17 14:31] LABS: ALBUMIN 2.3 g/dl (3.4-5.0); ANION GAP 7 (8-16); BILIRUBIN,TOTAL 0.3 mg/dL (0.2-1.0); CALCIUM 8.9 mg/dL (8.5-10.1); CO2 30 mmol/L (21-32); CREATININE 0.7 mg/dL (0.55-1.02); GLUCOSE,RANDOM 77 mg/dL (74-106); SGOT/AST 18 U/L (15-37); SGPT/ALT 11 U/L (12-78); TOT PROT 6.4 g/dl (6.4-8.2)
[2017-05-17 14:32] LABS: ALK PHOS 51 U/L (45-117)
[2017-05-17 15:38] LABS: URINE APPEARANCE SLCLOUDY; URINE BILIRUBIN NEGATIVE (NEGATIVE); URINE BLOOD NEGATIVE (NEGATIVE); URINE COLOR YELLOW; URINE GLUCOSE (UA) NEGATIVE (NEGATIVE); URINE KETONE TRACE (NEGATIVE); URINE NITRITE NEGATIVE (NEGATIVE); URINE UROBILINOGEN 4.0 E.U/dl mg/dL (0.2-1.0)
[2017-05-17 15:39] LABS: URINE PROTEIN 1+ (NEGATIVE)
[2017-05-17 15:45] LABS: URINE MUCUS RARE; URINE RBC <1 /hpf (0-3); URINE WBC 4 /hpf (3-5)
[2017-05-17] MEDS: levETIRAcetam 500 MG/5 ML INJECTION VIAL IVPB SCH ×2 (15:45→21:40)
[2017-05-17] MEDS: Lacosamide 200 MG/20 ML VIAL IVPB SCH ×2 (16:39→21:40)
--- NOTE | 2017-05-17 16:58 | PN ---
Teaching Attending Note Name of Resident: Don Lopez ATTENDING PHYSICIAN STATEMENT I saw and evaluated the patient. I reviewed the resident's note and discussed the case with the resident. I agree with the resident's findings and plan as documented. SUBJECTIVE:lethargic, slow to respond to questioning. responds no to everything OBJECTIVE: Last Vital Signs Temp Pulse Resp BP Pulse Ox 98.3 F 70 18 103/57 98 05/17/17 15:29 05/17/17 15:29 05/17/17 15:29 05/17/17 15:29 05/17/17 09:00 General lethargic, alert on verbal stimuli HEENT +myotonic twitching of bottom jaw CV S1 S2 RRR no murmur/rub/gallop Lungs CTA B/L no wheezing/rlaes/rhonchi Abdomen soft NT/ND Extremities +myotonic twitching RUE Skin 2cm flucuating lesion on R shoulder blade, no drainage no warmth, area tender ASSESSMENT AND PLAN: 66 yo F with PMH of alcohol abuse who presented to the ER after she was found on the floor by her . 1. Acute lethargy- appears to have wax/waning. check labs, check UA. if no clinical improvement will need to obtain CT head to evaluate for repeat ischemia 2. 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 PT and speech pathology 3. Seizures, myoclonic movements of right side- + active twitching. re-started back on klonopin. would increase however will wait for now due to worsening lethargy. neuro aware of twitching. will await recommendations for adjustment on anti-eleptics. 4. R shoulder swelling- concern for abscess, maybe alternate source of infection. obtain u/s to evaluate. hold abx for now 5. Acute inferior wall STEMI- medical management. on asa/toprol/crestor 6. Hypokalemia- repeat labs 7. Alcohol abuse 8. E. coli UTI- Completed Rocephin 9. DVT ppx- hep sq 10. was able to locate . agreeable to [facility] placement. when send when medically optimized
[2017-05-17] MEDS: VALPROATE SODIUM 500 MG/5 ML VIAL IVPB SCH ×2 (17:29→21:59)
[2017-05-17] MEDS: ENOXAPARIN NA (PORCINE) 40 MG/0.4 ML DISP.SYRIN SQ SCH (17:58)
[2017-05-17 18:09] LABS: URINE LEUK ESTERASE Negative (NEGATIVE)
[2017-05-17] MEDS: DEXTROSE 5%-0.45% SALINE 1,000 ML IV SCH (18:36)
[2017-05-17] MEDS ORDERED: ROSUVASTATIN CA 10 MG TABLET (FP) ONE (20:58)
[2017-05-17] MEDS: SENNOSIDES 8.6MG TABLET (FP) PO SCH (21:41)
[2017-05-17] MEDS: ROSUVASTATIN CA 20 MG TABLET (FP) PO SCH (21:43)
--- NOTE | 2017-05-18 07:09 | PN ---
Physical Exam: SUBJECTIVE: Patient seen and examined at bedside. Patient appears slightly improved today, more talkative today but still having difficulty following commands and responses continued to be delayed. OBJECTIVE: Vital Signs Period Temp Pulse Resp BP Sys/Levine Pulse Ox Last 24 Hr 98.1 F-98.6 F 58-75 18-20 101-121/56-69 98-98 GENERAL: The patient is awake, alert, and fully oriented, in no acute distress. HEAD: Normal with no signs of trauma. EYES: extraocular movements intact, sclera anicteric, conjunctiva clear. No ptosis. NECK: Trachea midline, full range of motion, supple. LUNGS: Breath sounds equal, clear to auscultation bilaterally, no wheezes, no crackles, no accessory muscle use. HEART: Regular rate and rhythm, S1, S2 without murmur, rub or gallop. ABDOMEN: Soft, nontender, nondistended, normoactive bowel sounds, no guarding, no rebound. EXTREMITIES: 2+ pulses, warm, well-perfused, no edema. NEUROLOGICAL: Cranial nerves II through X grossly intact. Normal speech, gait not observed. weakness of all extremities with 1/5 strength on the right. myoclonic jerks continue and seem to be exacerbated by intention to move. PSYCH: Normal mood, normal affect. SKIN: Warm, dry, normal turgor. raised, warm area on right scapulae draining purulent material Laboratory Results - last 24 hr 05/17/17 05/17/17 13:56 14:07 Sodium 140 Potassium 3.6 Chloride 103 Carbon Dioxide 30 Anion Gap 7 L BUN 11 D Creatinine 0.7 Creat Clearance w eGFR > 60 Random Glucose 77 Calcium 8.9 Total Bilirubin 0.3 AST 18 ALT 11 L Alkaline Phosphatase 51 Total Protein 6.4 Albumin 2.3 L Urine Color Yellow Urine Appearance Slcloudy Urine pH 7.0 Ur Specific [place] 1.015 Urine Protein 1+ H Urine Glucose (UA) Negative Urine Ketones Trace H Urine Blood Negative Urine Nitrite Negative Urine Bilirubin Negative Urine Urobilinogen 4.0 e.u/dl H Ur Leukocyte Esterase Negative Urine RBC <1 Urine WBC 4 Urine Mucus Rare Active Medications Generic Name Dose Route Start Last Admin Trade Name Freq PRN Reason Stop Dose Admin Acetaminophen 650 mg 05/02/17 06:48 Tylenol - PO Q6H PRN FEVER OR PAIN Aspirin 81 mg 05/14/17 10:00 05/17/17 13:47 Asa - PO Not Given DAILY CLEMENTE Clonazepam 0.25 mg 05/11/17 22:00 05/17/17 21:41 Klonopin - PO 0.25 mg BID CLEMENTE Administration Dextrose/Sodium Chloride 1,000 mls @ 75 mls/hr 05/17/17 18:00 05/17/17 18:36 D5-1/2ns - IV 75 mls/hr ASDIR CLEMENTE Administration Lacosamide 100 mg 05/17/17 15:00 05/17/17 21:40 Vimpat Injection - IVPB 100 mg BID CLEMENTE Administration Levetiracetam 1,000 mg 05/17/17 13:30 05/17/17 21:40 Keppra Injection - IVPB 1,000 mg BID CLEMENTE Administration Metoprolol Succinate 25 mg 05/02/17 10:00 05/17/17 13:47 Toprol Xl - PO Not Given DAILY CLEMENTE Rosuvastatin Calcium 40 mg 05/02/17 22:00 05/17/17 21:43 Crestor - PO 40 mg HS CLEMENTE Administration Senna 1 tab 05/02/17 22:00 05/17/17 21:41 Senna - PO 1 tab HS CLEMENTE Administration Valproate Sodium 1,250 mg 05/17/17 13:30 05/17/17 21:59 Depacon Injection - IVPB 1,250 mg BID CLEMENTE Administration ASSESSMENT/PLAN: 66 yo f w/PMH ETOH abuse w/ rest of PMH unknown presents s/p fall for 24 hours 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 #Paresis, lethargy and seizures 2/2 to residual damage from CVA -converted medications to IV as patient unable to tolerate PO. -klonopin .25mg PO BID -Keppra 1g IV BID -Depakote 1250 IV BID -lacosamide 100mg IV BID # Acute drop in Hb -Hb on 05/16 was 12 -9.6 today -possibly an error as sample drawn close to IV site -will repeat this PM -will conduct further workup if counts continue to drop #swelling on right side of back -US shows complex collection suspicious for abscess -afebrile -surgery consulted and performed I&D of abscess. -wound culture sent w/ grams stain showing G+cocci in pairs # UTI - resolved -completed 4 day course of Rocephin 1g #Troponinemia 2/2 STEMI- resolved -ASA 81 daily -Toprolol XL 25mg changed to metoprolol tartrate 12.5 BID as patient cannot tolerate PO #Lactic Acidosis- resolved #Elevated CK 2/2 acute DC vs seizure activity- resolved #NICOLÁS-resolved #FEN -no fluids indicated -monitor lytes -Dysphagia puree with nectar consistency liquids #Propylaxsis -SCDs w/ lovenox 40 mg SQ as patient is at high risk for DVT -GI- not indicated at this time #Dispo -Patient's agrees with decision to bring patient to [facility]. -ongoing planning for [facility] once patient is stable Problem List - Problems (1) CVA (cerebral vascular accident) Code(s): I63.9 - CEREBRAL INFARCTION, UNSPECIFIED Qualifiers: CVA mechanism: unspecified Qualified Code(s): I63.9 - Cerebral infarction, unspecified; I63.9 - Cerebral infarction, unspecified; I63.9 - Cerebral infarction, unspecified; I63.9 - Cerebral infarction, unspecified (2) Seizure Code(s): R56.9 - UNSPECIFIED CONVULSIONS Visit type - Emergency Visit Emergency Visit: Yes ED Registration Date: 04/21/17 Care time: The patient presented to the Emergency Department on the above date and was hospitalized for further evaluation of their emergent condition. - New Patient This patient is new to me today: No - Critical Care Critical Care patient: No
[2017-05-18 07:56] LABS: BASOPHIL 2.2 % (0-2.0); EOSINOPHIL 2.1 % (0-4.5); MCH 28.9 pg (25.7-33.7); MCHC 31.7 g/dl (32.0-36.0); MEAN CELL VOLUME 91.2 fl (80-96); NEUTROPHILS 55.4 % (42.8-82.8); PLATELET COUNT 82 K/MM3 (134-434); RDW 15.1 % (11.6-15.6)
[2017-05-18] MEDS ORDERED: PT OWN MED DRAWER 7, Y5N ONE ×4 (10:22→20:53)
[2017-05-18] MEDS: levETIRAcetam 500 MG/5 ML INJECTION VIAL IVPB SCH ×2 (10:31→21:56)
[2017-05-18] MEDS: AMINO ACIDS/PROTEIN HYDROLYS 30 ML LIQUID.PKT PO SCH ×2 (10:31→17:12)
[2017-05-18] MEDS: clonazePAM 0.5 MG TABLET PO SCH (10:32)
[2017-05-18] MEDS: METOPROLOL SUCCINATE 25 MG TAB.SR.24H (FP) PO SCH (10:32)
[2017-05-18] MEDS: ASPIRIN 81 MG CHEWABLE TABLETS PO SCH (10:32)
--- NOTE | 2017-05-18 10:51 | CONSULT ---
- Consultation REQUESTING PROVIDER: Sami Reyes - General Surgery CONSULT REQUEST: We have been asked to surgically evaluate this patient for right scapular abscess. PCP: Kelli Diaz HPI: Called to sharron 66 yo female admitted to [facility] w/ subacute evolving CVA. During physical exam, she was noted to have abscess on her right scapula. PMHx: PSHx: Home Meds: Allergy: NKDA (per ) ROS: CONSTITUTIONAL: Absent: fever, chills, diaphoresis, generalized weakness, malaise, loss of appetite, weight change COR: Absent: chest pain, syncope, palpitations, irregular heart rate, lightheadedness, peripheral edema RESPIRATORY: Absent: cough, shortness of breath, dyspnea with exertion, wheezing , stridor, hemoptysis GI:Absent: abdominal pain, abdominal distension, nausea, vomiting, diarrhea, constipation, melena, hematochezia GENITOURINARY: Absent: dysuria, frequency, urgency, hesitancy, hematuria, flank pain, genital pain MUSCULOSKELETAL: Absent: myalgia, arthralgia, joint swelling, back pain, neck pain SKIN: Absent: SEE HPI HEMATOLOGIC/IMMUNOLOGIC: Absent: easy bleeding, easy bruising, lymphadenopathy NEUROLOGIC: HPI PSYCHIATRIC: Absent: anxiety, depression, suicidal or homicidal ideation, hallucinations. PHYSICAL EXAM: General: awake, confused Neck: tachea midline, supple, no jvd Lungs: CTA bilat anteriorly Heart: RRR Skin: ~ 3 x 3 cm abscess over right scapula. Foul smelling. + purulent drainage Vital Signs Temperature 98.1 F 05/18/17 06:15 Pulse Rate 58 L 05/18/17 06:15 Respiratory Rate 20 05/18/17 06:15 Blood Pressure 112/56 05/18/17 06:15 O2 Sat by Pulse Oximetry (%) 98 05/17/17 21:00 Lab Results WBC 5.0 K/mm3 (4.0-10.0) D 05/18/17 06:00 RBC 3.33 M/mm3 (3.60-5.2) L 05/18/17 06:00 Hgb 9.6 GM/dL (10.7-15.3) L D 05/18/17 06:00 Hct 30.4 % (32.4-45.2) L D 05/18/17 06:00 MCV 91.2 fl (80-96) 05/18/17 06:00 MCHC 31.7 g/dl (32.0-36.0) L 05/18/17 06:00 RDW 15.1 % (11.6-15.6) 05/18/17 06:00 Plt Count 82 K/MM3 (134-434) L D 05/18/17 06:00 Sodium 140 mmol/L (136-145) 05/17/17 13:56 Potassium 3.6 mmol/L (3.5-5.1) 05/17/17 13:56 Chloride 103 mmol/L (98-107) 05/17/17 13:56 Carbon Dioxide 30 mmol/L (21-32) 05/17/17 13:56 Anion Gap 7 (8-16) L 05/17/17 13:56 BUN 11 mg/dL (7-18) D 05/17/17 13:56 Creatinine 0.7 mg/dL (0.55-1.02) 05/17/17 13:56 Random Glucose 77 mg/dL (74-106) 05/17/17 13:56 Calcium 8.9 mg/dL (8.5-10.1) 05/17/17 13:56 INR 0.98 (0.82-1.09) 04/20/17 19:10 Problem List - Problems (1) Abscess Assessment/Plan: Will perform bedside I&D. Will send culture. IV abx Pain management prn Above discussed with Dr. Reyes and agrees Code(s): L02.91 - CUTANEOUS ABSCESS, UNSPECIFIED (2) CVA (cerebral vascular accident) Code(s): I63.9 - CEREBRAL INFARCTION, UNSPECIFIED Qualifiers: CVA mechanism: unspecified Qualified Code(s): I63.9 - Cerebral infarction, unspecified; I63.9 - Cerebral infarction, unspecified; I63.9 - Cerebral infarction, unspecified; I63.9 - Cerebral infarction, unspecified Visit type - Case Type Case Type: ED Admission - New patient This patient is new to me today: Yes Date on this admission: 05/18/17
[2017-05-18] MEDS ORDERED: LIDOCAINE HCL 2% (50ML VIAL) SQ ONE (11:06)
[2017-05-18] MEDS: Lacosamide 200 MG/20 ML VIAL IVPB SCH ×2 (11:09→21:57)
[2017-05-18] MEDS ORDERED: LIDOCAINE HCL 1%, 10 MG/ML (20ML VIAL) ONE (11:10)
[2017-05-18] MEDS: DEXTROSE 5%-0.45% SALINE 1,000 ML IV SCH ×2 (11:11→21:55)
--- NOTE | 2017-05-18 11:33 | PROC ---
Incision and Drainage Indication/Location: Right posterior shoulder Risks and Benefits Explained: Yes Consent on Chart: Yes (Her signed) Betadine cleansed: Yes Anesthesia: 1% Lidocaine Blade Size: 10 Drainage: Contents of infected sebaceous cyst plus extraction of capsule Irrigated with Normal Saline: Yes (20mL NS) Iodinated Packin/ in Sterile Dressing Applied: Yes
[2017-05-18] MEDS: ENOXAPARIN NA (PORCINE) 40 MG/0.4 ML DISP.SYRIN SQ SCH (11:37)
--- NOTE | 2017-05-18 11:45 | PN ---
Progress Note, BLENDING LINE ATTENDANT - Note Progress Note: Status similar to before. Selected Entries 05/17/17 05/17/17 05/17/17 06:22 10:00 11:47 Breakfast 0 Supper Temperature 97.7 F 98.2 F 05/17/17 05/17/17 05/17/17 15:29 18:00 22:00 Breakfast Supper 0 0 Temperature 98.3 F 98.2 F 98.6 F 05/18/17 06:15 Breakfast Supper Temperature 98.1 F Taking very little on tsp. Educated staff on mixing puree into soup, milk or ensure when sufficiently awake. Consider Ensure compact. If likely too lethargic to accept sufficient nutrition by mouth and medication, TF may need to be considered. What is pt's prognosis for a functional recovery? Palliative care consult f/u regarding pt's wishes for tube feeding vs comfort care. PO can be given with supplemental tf, if pt becomes more alert.
[2017-05-18] MEDS: METOPROLOL TARTRATE 25 MG TABLET (FP) PO SCH ×2 (11:50→21:56)
[2017-05-18] MEDS: VALPROATE SODIUM 500 MG/5 ML VIAL IVPB SCH ×2 (12:24→21:59)
[2017-05-18] MEDS ORDERED: CLINDAMYCIN HCL 150 MG CAPSULE (FP) PO SCH (12:30)
--- NOTE | 2017-05-18 13:05 | PN ---
Teaching Attending Note Name of Resident: Don Lopez ATTENDING PHYSICIAN STATEMENT I saw and evaluated the patient. I reviewed the resident's note and discussed the case with the resident. I agree with the resident's findings and plan as documented. SUBJECTIVE:asymptomatic. steven CP, SOB, fever, chills, N/V/C/D OBJECTIVE: Last Vital Signs Temp Pulse Resp BP Pulse Ox 97.9 F 70 18 101/68 98 05/18/17 12:15 05/18/17 12:15 05/18/17 12:15 05/18/17 12:15 05/18/17 09:00 General alert, A&O x2 (self and location) HEENT +myotonic twitching of bottom jaw CV S1 S2 RRR no murmur/rub/gallop Lungs CTA B/L no wheezing/rlaes/rhonchi Abdomen soft NT/ND Extremities +myotonic twitching RUE Skin 2cm flucuating lesion on R shoulder blade,+ dark pus drainage, area tender ASSESSMENT AND PLAN: 66 yo F with PMH of alcohol abuse who presented to the ER after she was found on the floor by her . 1. Acute lethargy- appears to have wax/waning. no signs of infection (afebrile no luekocytosis) concern for abcess on back, today was able to express some pus. will send cx to lab. Start Clindamycin empirically. consult surgery for I& D. 2. 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 PT and speech pathology 3. Seizures, myoclonic movements of right side- + active twitching but less than yesterday. will monitor closely. consider increasing klonopin but will hold for now to prevent lethargy. cont anti-eleptics 4. R shoulder swelling- u/s showing complex cyst 2.3x2.2x1cm. as per above will have surgery perform I&D. 5. Acute anemia- no active signs of bleeding. repeat Hgb this afternoon. consider FIOBT. txn for Hgb < 7. 6. Acute inferior wall STEMI- medical management. on asa/toprol/crestor 7. Hypokalemia- repeat labs 8. Alcohol abuse 9. E. coli UTI- Completed Rocephin 10. DVT ppx- hep sq 11. present at bedside. all questions answered. agrees to I&D of shoulder and ok to blood products if necessary. is not aware if pt had colonoscopy in the past.
--- NOTE | 2017-05-18 14:10 | PN ---
Progress Note (short form) - Note Progress Note: Neurology This is a female of unknown age and name with unknown medical history who presented BIBA after her called 911 because she had fallen on the floor and was not able to pick herself up after being on the floor for reportedly 24 hours. EMS states that the patient was laying on the carpeted floor on their arrival on scene at her home. The explained that he found her on the floor and she said she felt fine, so he did not call 911 until he saw her in the same place on the floor therafter. The patient was minimally responsive in the ED but able to state she was having left-sided weakness for the past three days which is what caused her to fall but thought it would pass and did not come to the hospital. She was out of TPA window. MRI completed and showed subacute infarcts L temporal/parietal, L thalamic and she does have right sided deficits. There was some facial twitching and patient put on Keppra, increased to 1000mg twice a day, Vimpat also started 100mg twice daily, Depakote also started with good control. Patient on ASA 81mg. CD without hemodynamically significant stenosis, Echo complete and LV function normal. Completed Abx for UTI. Some mild twitching, depakote had been increased to 1250mg twice daily. Tolerating Klonipin 0.25mg at this time. Patient this morning more somnolent. Not following commands and not verbalizing with me this AM. Medication converted to IV. I ordered CT head to re-evaluate infarct. Discussed with nurse. Note regarding R shoulder abcess reviewed drainage procedure reviewed. Active Medications Acetaminophen (Tylenol -) 650 mg PO Q6H PRN PRN Reason: FEVER OR PAIN Amino Acids (Prosource No Carb Liquid Pkt) 30 ml PO BID@0800,1730 [facility] Last Admin: 05/18/17 10:31 Dose: 30 ml Aspirin (Asa -) 81 mg PO DAILY [facility] Last Admin: 05/18/17 10:32 Dose: 81 mg Clindamycin HCl (Cleocin -) 300 mg PO Q6HPO [facility] Last Admin: 05/18/17 12:25 Dose: 300 mg Clonazepam (Klonopin -) 0.25 mg PO BID [facility] Last Admin: 05/18/17 10:32 Dose: 0.25 mg Enoxaparin Sodium (Lovenox -) 40 mg SQ DAILY [facility] Last Admin: 05/18/17 11:37 Dose: 40 mg Dextrose/Sodium Chloride (D5-1/2ns -) 1,000 mls @ 75 mls/hr IV ASDIR [facility] Last Admin: 05/18/17 11:11 Dose: 75 mls/hr Lacosamide (Vimpat Injection -) 100 mg IVPB BID [facility] Last Admin: 05/18/17 11:09 Dose: 100 mg Levetiracetam (Keppra Injection -) 1,000 mg IVPB BID [facility] Last Admin: 05/18/17 10:31 Dose: 1,000 mg Metoprolol Tartrate (Lopressor -) 12.5 mg PO BID [facility] Last Admin: 05/18/17 11:50 Dose: Not Given Rosuvastatin Calcium (Crestor -) 40 mg PO HS [facility] Last Admin: 05/17/17 21:43 Dose: 40 mg Senna (Senna -) 1 tab PO HS [facility] Last Admin: 05/17/17 21:41 Dose: 1 tab Valproate Sodium (Depacon Injection -) 1,250 mg IVPB BID [facility] Last Admin: 05/18/17 12:24 Dose: 1,250 mg *Physical Exam Vital Signs Temperature 97.9 F 05/18/17 12:15 Pulse Rate 70 05/18/17 12:15 Respiratory Rate 18 05/18/17 12:15 Blood Pressure 101/68 05/18/17 12:15 O2 Sat by Pulse Oximetry (%) 98 05/18/17 09:00 - Physical Exam General Appearance: Yes: Disheveled, HEENT: positive: Hearing Grossly Normal, Neck: positive: Trachea midline, Supple. negative: Tender, Rigid Respiratory/Chest: positive: Lungs Clear, Normal Breath Sounds. negative: Respiratory Distress, Crackles, Rhonchi, Stridor, Wheezing Cardiovascular: positive: Regular Rhythm, Regular Rate. negative: Murmur Gastrointestinal/Abdominal: positive: Normal Bowel Sounds, Soft. negative: Tender, Organomegaly, Pulsatile Mass, Guarding Musculoskeletal: positive: Normal Inspection. negative: Decreased Range of Motion, Vertebral Tenderness Extremity: positive: Normal Capillary Refill, Normal Inspection, Normal Range of Motion. negative: Tender, Cyanosis Integumentary: positive: Normal Color, Dry, Warm. negative: Erythema, Rash, Bruising Neurologic: Limited exam, not participating in full confrontation, move LUE slight more than right, ?3/5 on R, ? 2/5 on L, tactile stimulation intact but limited on R, gait deferred CBCD WBC 5.0 K/mm3 (4.0-10.0) D 05/18/17 06:00 RBC 3.33 M/mm3 (3.60-5.2) L 05/18/17 06:00 Hgb 9.6 GM/dL (10.7-15.3) L D 05/18/17 06:00 Hct 30.4 % (32.4-45.2) L D 05/18/17 06:00 MCV 91.2 fl (80-96) 05/18/17 06:00 MCHC 31.7 g/dl (32.0-36.0) L 05/18/17 06:00 RDW 15.1 % (11.6-15.6) 05/18/17 06:00 Plt Count 82 K/MM3 (134-434) L D 05/18/17 06:00 MPV 9.0 fl (7.5-11.1) 05/18/17 06:00 CMP Sodium 140 mmol/L (136-145) 05/17/17 13:56 Potassium 3.6 mmol/L (3.5-5.1) 05/17/17 13:56 Chloride 103 mmol/L (98-107) 05/17/17 13:56 Carbon Dioxide 30 mmol/L (21-32) 05/17/17 13:56 Anion Gap 7 (8-16) L 05/17/17 13:56 BUN 11 mg/dL (7-18) D 05/17/17 13:56 Creatinine 0.7 mg/dL (0.55-1.02) 05/17/17 13:56 Creat Clearance w eGFR > 60 (>60) 05/17/17 13:56 Calcium 8.9 mg/dL (8.5-10.1) 05/17/17 13:56 Total Bilirubin 0.3 mg/dL (0.2-1.0) 05/17/17 13:56 AST 18 U/L (15-37) 05/17/17 13:56 ALT 11 U/L (12-78) L 05/17/17 13:56 Alkaline Phosphatase 51 U/L (45-117) 05/17/17 13:56 Total Protein 6.4 g/dl (6.4-8.2) 05/17/17 13:56 Albumin 2.3 g/dl (3.4-5.0) L 05/17/17 13:56 - RADIOLOGY MRI brain reviewed CT head repeated and reviewed CD, echo reviewed Medical Decision Making female of unknown age and name with unknown medical history who presented BIBA after her called 911 because she had fallen on the floor and was not able to pick herself up after being on the floor for reportedly 24 hours. EMS states that the patient was laying on the carpeted floor on their arrival on scene at her home. The explained that he found her on the floor and she said she felt fine, so he did not call 911 until he saw her in the same place on the floor therafter. The patient was minimally responsive in the ED but able to state she was having left-sided weakness for the past three days which is what caused her to fall but thought it would pass and did not come to the hospital. There was a question of generalized seizure and positive troponins. CT head completed and did not show acute changes. MRI demonstrated subacute infarcts L temporal/parietal, L thalamic CVA. -Patient on Keppra for seizures, getting 1000mg twice daily, may need to be IV for now -Vimpat 100mg twice daily and Depakote increased to 1250mg twice daily can be continued, may need to be IV -Klonipin at 0.25mg has been helpful, sedation issue currently, will hold -Continue ASA -Check repeat CT head -Monitor labs, check white count, metabolic changes -BP control, goal < 160/90 for now, < 140/90 as outpatient -PT/OT as tolerated -Mental status somnolent -Awaiting placement, on hold for now -DVT ppx
[2017-05-18 15:41] LABS: BASOPHIL 0.8 % (0-2.0); EOSINOPHIL 2.9 % (0-4.5); MCH 29.4 pg (25.7-33.7); MCHC 33.4 g/dl (32.0-36.0); MEAN CELL VOLUME 87.8 fl (80-96); MEAN PLT VOLUME 9.5 fl (7.5-11.1); NEUTROPHILS 56.3 % (42.8-82.8); PLATELET COUNT 104 K/MM3 (134-434); RDW 15.2 % (11.6-15.6); WHITE BLOOD COUNT 6.9 K/mm3 (4.0-10.0)
[2017-05-18 16:20] LABS: ALBUMIN 2.4 g/dl (3.4-5.0); ALK PHOS 54 U/L (45-117); ANION GAP 7 (8-16); BILIRUBIN,TOTAL 0.3 mg/dL (0.2-1.0); CALCIUM 9.2 mg/dL (8.5-10.1); CO2 30 mmol/L (21-32); CREATININE 0.7 mg/dL (0.55-1.02); GLUCOSE,RANDOM 87 mg/dL (74-106); MAGNESIUM 1.7 mg/dL (1.8-2.4); PHOSPHOROUS 3.4 mg/dL (2.5-4.9); SGOT/AST 20 U/L (15-37); SGPT/ALT 12 U/L (12-78); TOT PROT 6.6 g/dl (6.4-8.2)
[2017-05-18 16:23] LABS: CHOLESTEROL 149 mg/dL (50-200)
[2017-05-18] MEDS ORDERED: MAGNESIUM SULF 50% (8.12 MEQ/2 ML-1 GM VIAL) IVPB ONE ×2 (18:55→23:00)
[2017-05-18] MEDS ORDERED: ROSUVASTATIN CA 10 MG TABLET (FP) ONE (20:51)
[2017-05-18] MEDS: SENNOSIDES 8.6MG TABLET (FP) PO SCH (21:57)
[2017-05-18] MEDS: ROSUVASTATIN CA 20 MG TABLET (FP) PO SCH (21:59)
--- NOTE | 2017-05-19 06:26 | PN ---
Physical Exam: SUBJECTIVE: Patient seen and examined at bedside. Lethargic and minimally verbal today. Patient continues to wax and wane in her mental status daily. Family expresses wishes for PEG placement. Still able to tolerate only minimal feeds and PO meds. No myoclonic jerks noted today. OBJECTIVE: Vital Signs Period Temp Pulse Resp BP Sys/Levine Pulse Ox Last 24 Hr 97.5 F-98.6 F 61-72 18-20 98-112/61-79 97-98 GENERAL: The patient is awake, alert, and fully oriented, in no acute distress. HEAD: Normal with no signs of trauma. EYES: extraocular movements intact, sclera anicteric, conjunctiva clear. No ptosis. NECK: Trachea midline, full range of motion, supple. LUNGS: Breath sounds equal, clear to auscultation bilaterally, no wheezes, no crackles, no accessory muscle use. HEART: Regular rate and rhythm, S1, S2 without murmur, rub or gallop. ABDOMEN: Soft, nontender, nondistended, normoactive bowel sounds, no guarding, no rebound. EXTREMITIES: 2+ pulses, warm, well-perfused, no edema. NEUROLOGICAL: Cranial nerves II through X grossly intact. Normal speech, gait not observed. SKIN: Warm, dry, normal turgor, I&D site covered with clean bandage. Laboratory Results - last 24 hr 05/18/17 05/18/17 05/18/17 06:00 06:00 14:35 WBC 5.0 D 6.9 D RBC 3.33 L 4.11 D Hgb 9.6 L D 12.1 D Hct 30.4 L D 36.1 D MCV 91.2 87.8 MCH 28.9 29.4 MCHC 31.7 L 33.4 RDW 15.1 15.2 Plt Count 82 L D 104 L D MPV 9.0 9.5 Neutrophils % 55.4 D 56.3 Lymphocytes % 28.3 D 28.7 Monocytes % 12.0 H 11.3 H Eosinophils % 2.1 D 2.9 Basophils % 2.2 H 0.8 Sodium Cancelled Potassium Cancelled Chloride Cancelled Carbon Dioxide Cancelled Anion Gap Cancelled BUN Cancelled Creatinine Cancelled Creat Clearance w eGFR Cancelled Random Glucose Cancelled Calcium Cancelled Phosphorus Cancelled Magnesium Cancelled Total Bilirubin Cancelled AST Cancelled ALT Cancelled Alkaline Phosphatase Cancelled Total Protein Cancelled Albumin Cancelled Triglycerides Cholesterol Total LDL Cholesterol HDL Cholesterol 05/18/17 05/18/17 14:35 14:35 WBC RBC Hgb Hct MCV MCH MCHC RDW Plt Count MPV Neutrophils % Lymphocytes % Monocytes % Eosinophils % Basophils % Sodium 142 Potassium 3.6 Chloride 105 Carbon Dioxide 30 Anion Gap 7 L BUN 11 Creatinine 0.7 Creat Clearance w eGFR > 60 Random Glucose 87 Calcium 9.2 Phosphorus 3.4 Magnesium 1.7 L Total Bilirubin 0.3 AST 20 ALT 12 Alkaline Phosphatase 54 Total Protein 6.6 Albumin 2.4 L Triglycerides 100 Cholesterol 149 Total LDL Cholesterol 87 HDL Cholesterol 32 L Active Medications Generic Name Dose Route Start Last Admin Trade Name Freq PRN Reason Stop Dose Admin Acetaminophen 650 mg 05/02/17 06:48 Tylenol - PO Q6H PRN FEVER OR PAIN Amino Acids 30 ml 05/18/17 08:15 05/18/17 17:12 Prosource No Carb Liquid Pkt PO Not Given BID@0800,1730 CLEMENTE Aspirin 81 mg 05/14/17 10:00 05/18/17 10:32 Asa - PO 81 mg DAILY CLEMENTE Administration Clonazepam 0.25 mg 05/11/17 22:00 05/18/17 10:32 Klonopin - PO 0.25 mg BID CLEMENTE Administration Enoxaparin Sodium 40 mg 05/18/17 10:00 05/18/17 11:37 Lovenox - SQ 40 mg DAILY CLEMENTE Administration Dextrose/Sodium Chloride 1,000 mls @ 75 mls/hr 05/17/17 18:00 05/18/17 21:55 D5-1/2ns - IV 75 mls/hr ASDIR CLEMENTE Administration Lacosamide 100 mg 05/17/17 15:00 05/18/17 21:57 Vimpat Injection - IVPB 100 mg BID CLEMENTE Administration Levetiracetam 1,000 mg 05/17/17 13:30 05/18/17 21:56 Keppra Injection - IVPB 1,000 mg BID CLEMENTE Administration Metoprolol Tartrate 12.5 mg 05/18/17 11:45 05/18/17 21:56 Lopressor - PO 12.5 mg BID CLEMENTE Administration Rosuvastatin Calcium 40 mg 05/02/17 22:00 05/18/17 21:59 Crestor - PO 40 mg HS CLEMENTE Administration Senna 1 tab 05/02/17 22:00 05/18/17 21:57 Senna - PO 1 tab HS CLEMENTE Administration Valproate Sodium 1,250 mg 05/17/17 13:30 05/18/17 21:59 Depacon Injection - IVPB 1,250 mg BID CLEMENTE Administration ASSESSMENT/PLAN: 66 yo f w/PMH ETOH abuse w/ rest of PMH unknown presents s/p fall for 24 hours 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 #Paresis, lethargy and seizures 2/2 to residual damage from CVA -converted medications to IV as patient unable to tolerate PO. -klonopin .25mg PO BID -Keppra 1g IV BID -Depakote 1250 IV BID -lacosamide 100mg IV BID -D5/2 NS as patient has poor PO intake # Acute drop in Hb- resolved -repeat Hb 12.1, dropped to 11.1 this AM; will monitor -possibly an error as sample drawn close to IV site -will conduct further workup if counts continue to drop #abscess on right side of back -US shows complex collection suspicious for abscess -afebrile -surgery consulted and performed I&D of abscess. -wound culture sent w/ grams stain showing G+cocci in pairs -Gentamycin 300mg Q6H #patient for PEG placement -scheduled for 05/24 -Dr. Santoro consulted -will reconsult Dr. Benavides for cardio clearance. # UTI - resolved #Troponinemia 2/2 STEMI- resolved -ASA 81 daily -Toprolol XL 25mg changed to metoprolol tartrate 12.5 BID as patient cannot tolerate PO #Lactic Acidosis- resolved #Elevated CK 2/2 acute PA vs seizure activity- resolved #NICOLÁS-resolved #FEN -D5 08/02 NS -potassium 3.0 today, added 2meq to IVF. will monitor. -Dysphagia puree with nectar consistency liquids #Propylaxsis -SCDs w/ lovenox 40 mg SQ as patient is at high risk for DVT -GI- not indicated at this time #Dispo -Patient's agrees with decision to bring patient to [facility]. -ongoing planning for [facility] once patient is stable -Pt for PEG placement 05/24; will require cardio clearance. Problem List - Problems (1) CVA (cerebral vascular accident) Code(s): I63.9 - CEREBRAL INFARCTION, UNSPECIFIED Qualifiers: Qualified Code(s): I63.9 - Cerebral infarction, unspecified; I63.9 - Cerebral infarction, unspecified; I63.9 - Cerebral infarction, unspecified; I63.9 - Cerebral infarction, unspecified (2) Seizure Code(s): R56.9 - UNSPECIFIED CONVULSIONS Visit type - Emergency Visit Emergency Visit: Yes ED Registration Date: 04/21/17 Care time: The patient presented to the Emergency Department on the above date and was hospitalized for further evaluation of their emergent condition. - New Patient This patient is new to me today: No - Critical Care Critical Care patient: No
[2017-05-19 08:45] LABS: MCH 29.3 pg (25.7-33.7); MCHC 33.3 g/dl (32.0-36.0); MEAN CELL VOLUME 87.7 fl (80-96); MEAN PLT VOLUME 9.4 fl (7.5-11.1); PLATELET COUNT 91 K/MM3 (134-434); RDW 15.1 % (11.6-15.6); WHITE BLOOD COUNT 7.8 K/mm3 (4.0-10.0)
[2017-05-19 09:16] LABS: ALBUMIN 2.2 g/dl (3.4-5.0); ALK PHOS 49 U/L (45-117); ANION GAP 6 (8-16); BILIRUBIN,TOTAL 0.3 mg/dL (0.2-1.0); CALCIUM 8.8 mg/dL (8.5-10.1); CO2 29 mmol/L (21-32); CREATININE 0.6 mg/dL (0.55-1.02); GLUCOSE,RANDOM 79 mg/dL (74-106); MAGNESIUM 2.3 mg/dL (1.8-2.4); SGOT/AST 20 U/L (15-37); SGPT/ALT 10 U/L (12-78); TOT PROT 6.4 g/dl (6.4-8.2)
[2017-05-19] MEDS ORDERED: PT OWN MED DRAWER 7, Y5N ONE ×4 (09:17→18:02)
[2017-05-19] MEDS: AMINO ACIDS/PROTEIN HYDROLYS 30 ML LIQUID.PKT PO SCH ×3 (09:23→18:26)
[2017-05-19] MEDS: ENOXAPARIN NA (PORCINE) 40 MG/0.4 ML DISP.SYRIN SQ SCH (09:23)
[2017-05-19] MEDS: METOPROLOL TARTRATE 25 MG TABLET (FP) PO SCH ×2 (09:23→21:51)
[2017-05-19] MEDS: ASPIRIN 81 MG CHEWABLE TABLETS PO SCH (09:23)
[2017-05-19] MEDS: Lacosamide 200 MG/20 ML VIAL IVPB SCH (09:24)
--- NOTE | 2017-05-19 10:11 | PN ---
Progress Note (short form) - Note Progress Note: Neurology This is a female of unknown age and name with unknown medical history who presented BIBA after her called 911 because she had fallen on the floor and was not able to pick herself up after being on the floor for reportedly 24 hours. EMS states that the patient was laying on the carpeted floor on their arrival on scene at her home. The explained that he found her on the floor and she said she felt fine, so he did not call 911 until he saw her in the same place on the floor therafter. The patient was minimally responsive in the ED but able to state she was having left-sided weakness for the past three days which is what caused her to fall but thought it would pass and did not come to the hospital. She was out of TPA window. MRI completed and showed subacute infarcts L temporal/parietal, L thalamic and she does have right sided deficits. There was some facial twitching and patient put on Keppra, increased to 1000mg twice a day, Vimpat also started 100mg twice daily, Depakote also started with good control. Patient on ASA 81mg. CD without hemodynamically significant stenosis, Echo complete and LV function normal. Completed Abx for UTI. Some mild twitching, depakote had been increased to 1250mg twice daily. Tolerating Klonipin 0.25mg at this time. Patient this morning more somnolent. Not following commands and not verbalizing with me this AM. Medication converted to IV.Ct head was repeated and no acute changes. Regarding R shoulder abcess, this could be source of lethargy. Was incised and drained. Cultures grew Gram positive cocci in pairs. Active Medications Acetaminophen (Tylenol -) 650 mg PO Q6H PRN PRN Reason: FEVER OR PAIN Amino Acids (Prosource No Carb Liquid Pkt) 30 ml PO BID@0800,1730 [facility] Last Admin: 05/19/17 09:23 Dose: 30 ml Aspirin (Asa -) 81 mg PO DAILY [facility] Last Admin: 05/19/17 09:23 Dose: 81 mg Clonazepam (Klonopin -) 0.25 mg PO BID [facility] Last Admin: 05/18/17 10:32 Dose: 0.25 mg Enoxaparin Sodium (Lovenox -) 40 mg SQ DAILY [facility] Last Admin: 05/19/17 09:23 Dose: 40 mg Dextrose/Sodium Chloride (D5-1/2ns -) 1,000 mls @ 75 mls/hr IV ASDIR [facility] Last Admin: 05/18/17 21:55 Dose: 75 mls/hr Lacosamide (Vimpat Injection -) 100 mg IVPB BID [facility] Last Admin: 05/19/17 09:24 Dose: 100 mg Levetiracetam (Keppra Injection -) 1,000 mg IVPB BID [facility] Last Admin: 05/18/17 21:56 Dose: 1,000 mg Metoprolol Tartrate (Lopressor -) 12.5 mg PO BID [facility] Last Admin: 05/19/17 09:23 Dose: 12.5 mg Rosuvastatin Calcium (Crestor -) 40 mg PO [facility] Last Admin: 05/18/17 21:59 Dose: 40 mg Senna (Senna -) 1 tab PO [facility] Last Admin: 05/18/17 21:57 Dose: 1 tab Valproate Sodium (Depacon Injection -) 1,250 mg IVPB BID [facility] Last Admin: 05/18/17 21:59 Dose: 1,250 mg *Physical Exam Vital Signs Temperature 97.4 F L 05/19/17 09:28 Pulse Rate 64 05/19/17 09:28 Respiratory Rate 20 05/19/17 09:28 Blood Pressure 97/67 05/19/17 09:28 O2 Sat by Pulse Oximetry (%) 97 05/18/17 20:04 - Physical Exam General Appearance: Yes: Disheveled, HEENT: positive: Hearing Grossly Normal, Neck: positive: Trachea midline, Supple. negative: Tender, Rigid Respiratory/Chest: positive: Lungs Clear, Normal Breath Sounds. negative: Respiratory Distress, Crackles, Rhonchi, Stridor, Wheezing Cardiovascular: positive: Regular Rhythm, Regular Rate. negative: Murmur Gastrointestinal/Abdominal: positive: Normal Bowel Sounds, Soft. negative: Tender, Organomegaly, Pulsatile Mass, Guarding Musculoskeletal: positive: Normal Inspection. negative: Decreased Range of Motion, Vertebral Tenderness Extremity: positive: Normal Capillary Refill, Normal Inspection, Normal Range of Motion. negative: Tender, Cyanosis Integumentary: positive: Normal Color, Dry, Warm. negative: Erythema, Rash, Bruising Neurologic: Limited exam, not participating in full confrontation, move LUE slight more than right, ?3/5 on R, ? 2/5 on L, tactile stimulation intact but limited on R, gait deferred CBCD WBC 7.8 K/mm3 (4.0-10.0) 05/19/17 06:00 RBC 3.80 M/mm3 (3.60-5.2) 05/19/17 06:00 Hgb 11.1 GM/dL (10.7-15.3) 05/19/17 06:00 Hct 33.3 % (32.4-45.2) 05/19/17 06:00 MCV 87.7 fl (80-96) 05/19/17 06:00 MCHC 33.3 g/dl (32.0-36.0) 05/19/17 06:00 RDW 15.1 % (11.6-15.6) 05/19/17 06:00 Plt Count 91 K/MM3 (134-434) L 05/19/17 06:00 MPV 9.4 fl (7.5-11.1) 05/19/17 06:00 CMP Sodium 140 mmol/L (136-145) 05/19/17 06:00 Potassium 3.0 mmol/L (3.5-5.1) L 05/19/17 06:00 Chloride 105 mmol/L (98-107) 05/19/17 06:00 Carbon Dioxide 29 mmol/L (21-32) 05/19/17 06:00 Anion Gap 6 (8-16) L 05/19/17 06:00 BUN 8 mg/dL (7-18) D 05/19/17 06:00 Creatinine 0.6 mg/dL (0.55-1.02) 05/19/17 06:00 Creat Clearance w eGFR > 60 (>60) 05/19/17 06:00 Calcium 8.8 mg/dL (8.5-10.1) 05/19/17 06:00 Total Bilirubin 0.3 mg/dL (0.2-1.0) 05/19/17 06:00 AST 20 U/L (15-37) 05/19/17 06:00 ALT 10 U/L (12-78) L 05/19/17 06:00 Alkaline Phosphatase 49 U/L (45-117) 05/19/17 06:00 Total Protein 6.4 g/dl (6.4-8.2) 05/19/17 06:00 Albumin 2.2 g/dl (3.4-5.0) L 05/19/17 06:00 - RADIOLOGY MRI brain reviewed CT head repeated and reviewed CD, echo reviewed Medical Decision Making female of unknown age and name with unknown medical history who presented BIBA after her called 911 because she had fallen on the floor and was not able to pick herself up after being on the floor for reportedly 24 hours. EMS states that the patient was laying on the carpeted floor on their arrival on scene at her home. The explained that he found her on the floor and she said she felt fine, so he did not call 911 until he saw her in the same place on the floor therafter. The patient was minimally responsive in the ED but able to state she was having left-sided weakness for the past three days which is what caused her to fall but thought it would pass and did not come to the hospital. There was a question of generalized seizure and positive troponins. CT head completed and did not show acute changes. MRI demonstrated subacute infarcts L temporal/parietal, L thalamic CVA. -Patient on Keppra for seizures, getting 1000mg twice daily, may need to be IV for now -Vimpat 100mg twice daily and Depakote increased to 1250mg twice daily can be continued, may need to be IV -Klonipin at 0.25mg has been helpful, sedation issue currently, held -Continue ASA -repeat CT head without acute changes -Abcess growing Gram + cocci in pairs, likely source of lethargy -BP control, goal < 160/90 for now, < 140/90 as outpatient -PT/OT as tolerated -Mental status remains somnolent -Abx as per primary team -DVT ppx
[2017-05-19] MEDS ORDERED: DIVALPROEX SODIUM 500 MG TABLET E.C. PO SCH (10:45)
[2017-05-19] MEDS: DEXTROSE 5%-0.45% SALINE 1,000 ML with POTASSIUM CHLORIDE 20 MEQ IV SCH (11:24)
--- NOTE | 2017-05-19 11:51 | CON.GI ---
Consult Consult Specialty:: GI Referred by:: Hospitalist Reason for Consultation:: Inadequate po intak, failure to thrive - History of Present Illness History of Present Illness: Chart reviewed. A 66 yo female hospitalized 20+ days ago for CVA, acute AMI, seizures, lethargy. The patient remains lethargic with fluctuating mental status. Per hospital records and assessments she is unable to maintain adequate PO intake. The patient's and son are aware of this. An option of alterative feeding mode via gastrostomy tube was discussed with them and they have agreed to PEG placement. Home Medication List Medication Instructions Recorded Confirmed Type Unobtainable [Unobtainable] 04/21/17 04/21/17 History Active Medications Generic Name Dose Route Start Last Admin Trade Name Freq PRN Reason Stop Dose Admin Acetaminophen 650 mg 05/02/17 06:48 Tylenol - PO Q6H PRN FEVER OR PAIN Amino Acids 30 ml 05/18/17 08:15 05/19/17 09:23 Prosource No Carb Liquid Pkt PO 30 ml BID@0800,1730 CLEMENTE Administration Aspirin 81 mg 05/14/17 10:00 05/19/17 09:23 Asa - PO 81 mg DAILY CLEMENTE Administration Clindamycin HCl 300 mg 05/19/17 12:00 Cleocin - PO Q6HPO CLEMENTE Clonazepam 0.25 mg 05/11/17 22:00 05/18/17 10:32 Klonopin - PO 0.25 mg BID CLEMENTE Administration Divalproex Sodium 1,000 mg/ 1,250 mg 05/19/17 12:00 Divalproex Sodium 250 mg PO BID CLEMENTE Enoxaparin Sodium 40 mg 05/18/17 10:00 05/19/17 09:23 Lovenox - SQ 40 mg DAILY CLEMENTE Administration Potassium Chloride 20 meq/ 1,010 mls @ 75 mls/hr 05/19/17 10:21 05/19/17 11:24 Dextrose/Sodium Chloride IV 75 mls/hr ASDIR CLEMENTE Administration Lacosamide 100 mg 05/19/17 22:00 Vimpat Liquid - PO BID CLEMENTE Levetiracetam 1,000 mg 05/19/17 12:00 Keppra Oral Solution - PO BID CLEMENTE Metoprolol Tartrate 12.5 mg 05/18/17 11:45 05/19/17 09:23 Lopressor - PO 12.5 mg BID CLEMENTE Administration Rosuvastatin Calcium 40 mg 05/02/17 22:00 05/18/17 21:59 Crestor - PO 40 mg HS CLEMENTE Administration Senna 1 tab 05/02/17 22:00 05/18/17 21:57 Senna - PO 1 tab HS CLEMENTE Administration - History Source History Provided By: Medical Record Limitations to Obtaining History: Clinical Condition - Past Medical History ...: No - Alcohol/Substance Use Hx Alcohol Use: (unknown) - Smoking History Smoking history: Unknown if ever smoked Home Medications - Allergies Allergies/Adverse Reactions: Allergies Allergy/AdvReac Type Severity Reaction Status Date / Time No Known Allergies Allergy Verified 05/10/17 12:18 - Home Medications Home Medications: Ambulatory Orders Unobtainable [Unobtainable] 04/21/17 Family Disease History - Family Disease History Family History: Unable to Obtain Review of Systems Unable to obtain ROS, reason: Non-verbal, Findings/Remarks: chart for ROS reviewed Physical Exam-GI Vital Signs: Vital Signs Temperature 97.4 F L 05/19/17 09:28 Pulse Rate 64 05/19/17 09:28 Respiratory Rate 20 05/19/17 09:28 Blood Pressure 97/67 05/19/17 09:28 O2 Sat by Pulse Oximetry (%) 97 05/18/17 20:04 Constitutional: Yes: No Distress, Calm Eyes: Yes: Conjunctiva Clear HENT: Yes: Atraumatic Neck: Yes: Supple Cardiovascular: Yes: Regular Rate and Rhythm Respiratory: Yes: Regular ...Auscultate: Yes: Normoactive Bowel Sounds ...Palpate: Yes: Soft. No: Guarding, Mass, Pulsatile Mass, Tenderness ...Percussion: No: Fluid Wave Neurological: Yes: Confusion Labs: CBC, BMP 05/19/17 06:00 05/19/17 06:00 INR, PTT INR 0.98 (0.82-1.09) 04/20/17 19:10 CBCD WBC 7.8 K/mm3 (4.0-10.0) 05/19/17 06:00 RBC 3.80 M/mm3 (3.60-5.2) 05/19/17 06:00 Hgb 11.1 GM/dL (10.7-15.3) 05/19/17 06:00 Hct 33.3 % (32.4-45.2) 05/19/17 06:00 MCV 87.7 fl (80-96) 05/19/17 06:00 MCHC 33.3 g/dl (32.0-36.0) 05/19/17 06:00 RDW 15.1 % (11.6-15.6) 05/19/17 06:00 Plt Count 91 K/MM3 (134-434) L 05/19/17 06:00 MPV 9.4 fl (7.5-11.1) 05/19/17 06:00 CMP Sodium 140 mmol/L (136-145) 05/19/17 06:00 Potassium 3.0 mmol/L (3.5-5.1) L 05/19/17 06:00 Chloride 105 mmol/L (98-107) 05/19/17 06:00 Carbon Dioxide 29 mmol/L (21-32) 05/19/17 06:00 Anion Gap 6 (8-16) L 05/19/17 06:00 BUN 8 mg/dL (7-18) D 05/19/17 06:00 Creatinine 0.6 mg/dL (0.55-1.02) 05/19/17 06:00 Creat Clearance w eGFR > 60 (>60) 05/19/17 06:00 Calcium 8.8 mg/dL (8.5-10.1) 05/19/17 06:00 Total Bilirubin 0.3 mg/dL (0.2-1.0) 05/19/17 06:00 AST 20 U/L (15-37) 05/19/17 06:00 ALT 10 U/L (12-78) L 05/19/17 06:00 Alkaline Phosphatase 49 U/L (45-117) 05/19/17 06:00 Total Protein 6.4 g/dl (6.4-8.2) 05/19/17 06:00 Albumin 2.2 g/dl (3.4-5.0) L 05/19/17 06:00 INR, PTT INR 0.98 (0.82-1.09) 04/20/17 19:10 Vital Signs Temp 97.4 F L 05/19/17 09:28 Pulse 64 05/19/17 09:28 Resp 20 05/19/17 09:28 BP 97/67 05/19/17 09:28 Pulse Ox 97 05/18/17 20:04 Intake & Output 05/18/17 05/18/17 05/19/17 11:59 23:59 11:59 Intake Total 450 1868 450 Balance 450 1868 450 Intake: IV 450 1350 450 D5-1/2Ns - 1,000 ml @ 75 450 900 450 mls/hr IV ASDIR CLEMENTE Rx#: [id number] s/l 450 IVPB 400 Oral 118 CBI Intake 0 Other: Voiding Method Incontinent Incontinent # Unmeasured Voids Void 1 1 1 Bowel Movement No No No Problem List - Problems (1) Failure to thrive in adult Code(s): R62.7 - ADULT FAILURE TO THRIVE (2) CVA (cerebral vascular accident) Code(s): I63.9 - CEREBRAL INFARCTION, UNSPECIFIED Qualifiers: CVA mechanism: unspecified Qualified Code(s): I63.9 - Cerebral infarction, unspecified; I63.9 - Cerebral infarction, unspecified; I63.9 - Cerebral infarction, unspecified; I63.9 - Cerebral infarction, unspecified (3) Seizure Code(s): R56.9 - UNSPECIFIED CONVULSIONS (4) STEMI (ST elevation myocardial infarction) Assessment/Plan: Will need input from cardiology re PEG procedure. Ok to continue Aspirin, if needed. Code(s): I21.3 - ST ELEVATION (STEMI) MYOCARDIAL INFARCTION OF [facility] SITE Qualifiers: Involved coronary artery: LAD coronary artery Qualified Code(s): I21.02 - ST elevation (STEMI) myocardial infarction involving left anterior descending coronary artery; I21.02 - ST elevation (STEMI) myocardial infarction involving left anterior descending coronary artery; I21.02 - ST elevation (STEMI ) myocardial infarction involving left anterior descending coronary artery; I21.02 - ST elevation (STEMI) myocardial infarction involving left anterior descending coronary artery Assessment/Plan Plan PEG placement on Tuesday. Cardiology clearance. Continue Aspirin, if necessary. Aspiration precautions maintain IV hydration and assist with PO as tolerated Patient's will be contacted for consent Discussed with Dr. Diaz, palliative care nurse, speech pathologist
[2017-05-19] MEDS ORDERED: DIVALPROEX 1,000 MG, DIVALPROEX 250 MG PO SCH (12:00)
[2017-05-19] MEDS ORDERED: levETIRAcetam 500 MG TABLET (FP) PO SCH (12:00)
[2017-05-19] MEDS: levETIRAcetam 500 MG/5 ML INJECTION VIAL IVPB SCH (12:06)
[2017-05-19] MEDS: VALPROATE SODIUM 500 MG/5 ML VIAL IVPB SCH (12:06)
--- NOTE | 2017-05-19 12:42 | PN ---
Progress Note, [employer] - Note Progress Note: Selected Entries 05/18/17 05/18/17 05/18/17 06:15 10:00 12:13 Breakfast 25% Supper Temperature 98.1 F 98.6 F 05/18/17 05/18/17 05/18/17 12:15 15:34 18:00 Breakfast Supper 0 Temperature 97.9 F 97.5 F L 97.7 F 05/18/17 05/18/17 05/19/17 20:01 22:00 06:52 Breakfast Supper 0 Temperature 97.5 F L 97.6 F 97.5 F L 05/19/17 09:28 Breakfast Supper Temperature 97.4 F L Case reviewed with palliative care and GI. For PEG insertion. In meantime, educated staff on mixing puree with liquid to "drink" meals, which she manages better than on a tsp. Focus pt and tell her to "swallow" with each bite/sip. Trial of Ensure with each meal, to increase nutritional intake.
[2017-05-19] MEDS: CLINDAMYCIN HCL 150 MG CAPSULE (FP) PO SCH ×2 (12:56→18:06)
[2017-05-19] MEDS: VALPROATE SODIUM 250 MG/5 ML UNIT DOSE CUP PO SCH ×2 (13:17→21:51)
[2017-05-19] MEDS: levETIRAcetam 500 MG/5 ML ORAL SOLUTION (UNIT-DOSE CUPS) PO SCH ×2 (13:24→21:51)
--- NOTE | 2017-05-19 17:02 | PN ---
Teaching Attending Note Name of Resident: Don Lopez ATTENDING PHYSICIAN STATEMENT I saw and evaluated the patient. I reviewed the resident's note and discussed the case with the resident. I agree with the resident's findings and plan as documented. SUBJECTIVE:asymptomatic. denies CP, SOB, fever, chills, N/V/C/D OBJECTIVE: Last Vital Signs Temp Pulse Resp BP Pulse Ox 98.2 F 68 18 97/67 96 05/19/17 15:14 05/19/17 15:14 05/19/17 15:14 05/19/17 09:28 05/19/17 09:00 General alert, A&O x2 (self and location) HEENT no twitching noted CV S1 S2 RRR no murmur/rub/gallop Lungs CTA B/L no wheezing/rlaes/rhonchi Abdomen soft NT/ND Extremities no pedal edema ASSESSMENT AND PLAN: 66 yo F with PMH of alcohol abuse who presented to the ER after she was found on the floor by her . 1. Acute lethargy- appears to have wax/waning. no signs of infection (afebrile no luekocytosis) back abscess s/p I&D 05/18. was stated to be sebaceuous cyst. now WCx with + organism. will start clindamcyin until organism is obtained. 2. Dysphagia- component of poor mental status. unclear if this is progression of disease. family discussion regarding PEG. agreeable to PEG at this time. GI consulted. plan for PEG placement tuesday, cont low dose IVF to prevent dehydration. 3. 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 PT and speech pathology 4. Seizures, myoclonic movements of right side- resolvedy. will monitor closely. consider increasing klonopin but will hold for now to prevent lethargy. cont anti-eleptics 5. R shoulder swelling- u/s showing complex cyst 2.3x2.2x1cm. s/p I&D 05/18. + pending organism. will start clindamycin until Cx results. 6. Acute anemia- no active signs of bleeding. HGB stable. txn for Hgb < 7. 7. Acute inferior wall STEMI- medical management. on asa/toprol/crestor 8. Hypokalemia- add KCl to IVF 9. Alcohol abuse 10. E. coli UTI- Completed Rocephin 11. DVT ppx- hep sq
[2017-05-19] MEDS ORDERED: ROSUVASTATIN CA 10 MG TABLET (FP) ONE (20:55)
[2017-05-19] MEDS: ROSUVASTATIN CA 20 MG TABLET (FP) PO SCH (21:51)
[2017-05-19] MEDS: SENNOSIDES 8.6MG TABLET (FP) PO SCH (21:51)
[2017-05-19] MEDS: LACOSAMIDE 10 MG/1 ML PO SCH (22:23)
[2017-05-20] MEDS: CLINDAMYCIN HCL 150 MG CAPSULE (FP) PO SCH ×2 (00:18→06:31)
[2017-05-20 08:41] LABS: MCH 29.4 pg (25.7-33.7); MCHC 33.8 g/dl (32.0-36.0); MEAN CELL VOLUME 87.1 fl (80-96); MEAN PLT VOLUME 8.7 fl (7.5-11.1); PLATELET COUNT 80 K/MM3 (134-434); RDW 15.5 % (11.6-15.6); WHITE BLOOD COUNT 8.4 K/mm3 (4.0-10.0)
[2017-05-20] MEDS: AMINO ACIDS/PROTEIN HYDROLYS 30 ML LIQUID.PKT PO SCH ×2 (08:44→17:24)
--- NOTE | 2017-05-20 08:49 | PN ---
Progress Note, Physician History of Present Illness: Chart reviewed. More awake and alert this am. No events, comfortable. - Current Medication List Current Medications: Active Medications Acetaminophen (Tylenol -) 650 mg PO Q6H PRN PRN Reason: FEVER OR PAIN Amino Acids (Prosource No Carb Liquid Pkt) 30 ml PO BID@0800,1730 [facility] Last Admin: 05/20/17 08:44 Dose: 30 ml Aspirin (Asa -) 81 mg PO DAILY [facility] Last Admin: 05/19/17 09:23 Dose: 81 mg Clonazepam (Klonopin -) 0.25 mg PO BID [facility] Last Admin: 05/18/17 10:32 Dose: 0.25 mg Enoxaparin Sodium (Lovenox -) 40 mg SQ DAILY [facility] Last Admin: 05/19/17 09:23 Dose: 40 mg Potassium Chloride 20 meq/ (Dextrose/Sodium Chloride) 1,010 mls @ 75 mls/hr IV ASDIR [facility] Last Admin: 05/19/17 11:24 Dose: 75 mls/hr Lacosamide (Vimpat Liquid -) 100 mg PO BID [facility] Last Admin: 05/19/17 22:23 Dose: 100 mg Levetiracetam (Keppra Oral Solution -) 1,000 mg PO BID [facility] Last Admin: 05/19/17 21:51 Dose: 1,000 mg Metoprolol Tartrate (Lopressor -) 12.5 mg PO BID [facility] Last Admin: 05/19/17 21:51 Dose: 12.5 mg Rosuvastatin Calcium (Crestor -) [address] [facility] Last Admin: 05/19/17 21:51 Dose: 40 mg Senna (Senna -) [address] [facility] Last Admin: 05/19/17 21:51 Dose: 1 tab Valproate Sodium (Depakene -) 1,250 mg PO BID [facility] Last Admin: 05/19/17 21:51 Dose: 1,250 mg - Objective Vital Signs: Vital Signs Temperature 97.9 F 05/19/17 22:00 Pulse Rate 76 05/19/17 22:00 Respiratory Rate 18 05/19/17 22:00 Blood Pressure 114/70 05/19/17 22:00 O2 Sat by Pulse Oximetry (%) 97 05/19/17 21:00 Constitutional: Yes: No Distress, Calm Gastrointestinal: Yes: Normal Bowel Sounds, Soft. No: Tenderness Neurological: Yes: Alert, Aphasia Labs: CBC, BMP 05/20/17 06:00 INR, PTT INR 0.98 (0.82-1.09) 04/20/17 19:10 Problem List - Problems (1) Failure to thrive in adult Code(s): R62.7 - ADULT FAILURE TO THRIVE (2) CVA (cerebral vascular accident) Code(s): I63.9 - CEREBRAL INFARCTION, UNSPECIFIED Qualifiers: CVA mechanism: unspecified Qualified Code(s): I63.9 - Cerebral infarction, unspecified; I63.9 - Cerebral infarction, unspecified; I63.9 - Cerebral infarction, unspecified; I63.9 - Cerebral infarction, unspecified (3) Seizure Code(s): R56.9 - UNSPECIFIED CONVULSIONS (4) STEMI (ST elevation myocardial infarction) Code(s): I21.3 - ST ELEVATION (STEMI) MYOCARDIAL INFARCTION OF UNSP SITE Qualifiers: Involved coronary artery: LAD coronary artery Qualified Code(s): I21.02 - ST elevation (STEMI) myocardial infarction involving left anterior descending coronary artery; I21.02 - ST elevation (STEMI) myocardial infarction involving left anterior descending coronary artery; I21.02 - ST elevation (STEMI ) myocardial infarction involving left anterior descending coronary artery; I21.02 - ST elevation (STEMI) myocardial infarction involving left anterior descending coronary artery Assessment/Plan Plan PEG placement on Tuesday. Cardiology clearance requested. Continue Aspirin, if necessary. Aspiration precautions maintain IV hydration and assist with PO as tolerated Patient's will be contacted for consent
[2017-05-20 08:50] LABS: ANION GAP 7 (8-16); CALCIUM 9.3 mg/dL (8.5-10.1); CO2 29 mmol/L (21-32); CREATININE 0.7 mg/dL (0.55-1.02); GLUCOSE,RANDOM 90 mg/dL (74-106); MAGNESIUM 1.8 mg/dL (1.8-2.4); PHOSPHOROUS 3.4 mg/dL (2.5-4.9)
[2017-05-20] MEDS ORDERED: PT OWN MED DRAWER 7, Y5N ONE ×2 (09:30→14:35)
[2017-05-20] MEDS: VALPROATE SODIUM 250 MG/5 ML UNIT DOSE CUP PO SCH ×2 (09:35→21:47)
[2017-05-20] MEDS: ASPIRIN 81 MG CHEWABLE TABLETS PO SCH (09:35)
[2017-05-20] MEDS: DEXTROSE 5%-0.45% SALINE 1,000 ML with POTASSIUM CHLORIDE 20 MEQ IV SCH (09:36)
[2017-05-20] MEDS: levETIRAcetam 500 MG/5 ML ORAL SOLUTION (UNIT-DOSE CUPS) PO SCH ×2 (09:36→21:48)
[2017-05-20] MEDS: ENOXAPARIN NA (PORCINE) 40 MG/0.4 ML DISP.SYRIN SQ SCH (09:36)
[2017-05-20] MEDS: METOPROLOL TARTRATE 25 MG TABLET (FP) PO SCH ×2 (09:36→21:48)
[2017-05-20] MEDS: LACOSAMIDE 10 MG/1 ML PO SCH ×2 (09:36→21:48)
--- NOTE | 2017-05-20 09:58 | PN ---
Progress Note (short form) - Note Progress Note: Neurology This is a female of unknown age and name with unknown medical history who presented BIBA after her called 911 because she had fallen on the floor and was not able to pick herself up after being on the floor for reportedly 24 hours. EMS states that the patient was laying on the carpeted floor on their arrival on scene at her home. The explained that he found her on the floor and she said she felt fine, so he did not call 911 until he saw her in the same place on the floor therafter. The patient was minimally responsive in the ED but able to state she was having left-sided weakness for the past three days which is what caused her to fall but thought it would pass and did not come to the hospital. She was out of TPA window. MRI completed and showed subacute infarcts L temporal/parietal, L thalamic and she does have right sided deficits. There was some facial twitching and patient put on Keppra, increased to 1000mg twice a day, Vimpat also started 100mg twice daily, Depakote also started with good control. Patient on ASA 81mg. CD without hemodynamically significant stenosis, Echo complete and LV function normal. Completed Abx for UTI. Some mild twitching, depakote had been increased to 1250mg twice daily. Much more awake and alert today. Was conversive but also irritable. Discussed possible plan for placement. Regarding R shoulder abcess, this likely source of lethargy. Was incised and drained. Cultures grew Gram positive cocci in pairs. Active Medications Acetaminophen (Tylenol -) 650 mg PO Q6H PRN PRN Reason: FEVER OR PAIN Amino Acids (Prosource No Carb Liquid Pkt) 30 ml PO BID@0800,1730 [facility] Last Admin: 05/20/17 08:44 Dose: 30 ml Aspirin (Asa -) 81 mg PO DAILY [facility] Last Admin: 05/20/17 09:35 Dose: 81 mg Clonazepam (Klonopin -) 0.25 mg PO BID [facility] Last Admin: 05/18/17 10:32 Dose: 0.25 mg Enoxaparin Sodium (Lovenox -) 40 mg SQ DAILY [facility] Last Admin: 05/20/17 09:36 Dose: 40 mg Potassium Chloride 20 meq/ (Dextrose/Sodium Chloride) 1,010 mls @ 75 mls/hr IV ASDIR [facility] Last Admin: 05/20/17 09:36 Dose: Not Given Lacosamide (Vimpat Liquid -) 100 mg PO BID [facility] Last Admin: 05/20/17 09:36 Dose: 100 mg Levetiracetam (Keppra Oral Solution -) 1,000 mg PO BID [facility] Last Admin: 05/20/17 09:36 Dose: 1,000 mg Metoprolol Tartrate (Lopressor -) 12.5 mg PO BID [facility] Last Admin: 05/20/17 09:36 Dose: 12.5 mg Rosuvastatin Calcium (Crestor -) 40 mg PO [facility] Last Admin: 05/19/17 21:51 Dose: 40 mg Senna (Senna -) 1 tab PO [facility] Last Admin: 05/19/17 21:51 Dose: 1 tab Valproate Sodium (Depakene -) 1,250 mg PO BID [facility] Last Admin: 05/20/17 09:35 Dose: 1,250 mg *Physical Exam Vital Signs Temperature 97.9 F 05/19/17 22:00 Pulse Rate 76 05/19/17 22:00 Respiratory Rate 18 05/19/17 22:00 Blood Pressure 114/70 05/19/17 22:00 O2 Sat by Pulse Oximetry (%) 97 05/19/17 21:00 - Physical Exam General Appearance: Yes: Disheveled, HEENT: positive: Hearing Grossly Normal, Neck: positive: Trachea midline, Supple. negative: Tender, Rigid Respiratory/Chest: positive: Lungs Clear, Normal Breath Sounds. negative: Respiratory Distress, Crackles, Rhonchi, Stridor, Wheezing Cardiovascular: positive: Regular Rhythm, Regular Rate. negative: Murmur Gastrointestinal/Abdominal: positive: Normal Bowel Sounds, Soft. negative: Tender, Organomegaly, Pulsatile Mass, Guarding Musculoskeletal: positive: Normal Inspection. negative: Decreased Range of Motion, Vertebral Tenderness Extremity: positive: Normal Capillary Refill, Normal Inspection, Normal Range of Motion. negative: Tender, Cyanosis Integumentary: positive: Normal Color, Dry, Warm. negative: Erythema, Rash, Bruising Neurologic: Limited exam, not participating in full confrontation, move LUE slight more than right, ?3/5 on R, ? 2/5 on L, tactile stimulation intact but limited on R, gait deferred CBCD WBC 8.4 K/mm3 (4.0-10.0) 05/20/17 06:00 RBC 4.09 M/mm3 (3.60-5.2) 05/20/17 06:00 Hgb 12.0 GM/dL (10.7-15.3) 05/20/17 06:00 Hct 35.6 % (32.4-45.2) 05/20/17 06:00 MCV 87.1 fl (80-96) 05/20/17 06:00 MCHC 33.8 g/dl (32.0-36.0) 05/20/17 06:00 RDW 15.5 % (11.6-15.6) 05/20/17 06:00 Plt Count 80 K/MM3 (134-434) L 05/20/17 06:00 MPV 8.7 fl (7.5-11.1) 05/20/17 06:00 CMP Sodium 140 mmol/L (136-145) 05/20/17 06:00 Potassium 3.1 mmol/L (3.5-5.1) L 05/20/17 06:00 Chloride 104 mmol/L (98-107) 05/20/17 06:00 Carbon Dioxide 29 mmol/L (21-32) 05/20/17 06:00 Anion Gap 7 (8-16) L 05/20/17 06:00 BUN 7 mg/dL (7-18) 05/20/17 06:00 Creatinine 0.7 mg/dL (0.55-1.02) 05/20/17 06:00 Creat Clearance w eGFR > 60 (>60) 05/19/17 06:00 Calcium 9.3 mg/dL (8.5-10.1) 05/20/17 06:00 Total Bilirubin 0.3 mg/dL (0.2-1.0) 05/19/17 06:00 AST 20 U/L (15-37) 05/19/17 06:00 ALT 10 U/L (12-78) L 05/19/17 06:00 Alkaline Phosphatase 49 U/L (45-117) 05/19/17 06:00 Total Protein 6.4 g/dl (6.4-8.2) 05/19/17 06:00 Albumin 2.2 g/dl (3.4-5.0) L 05/19/17 06:00 - RADIOLOGY MRI brain reviewed CT head repeated and reviewed CD, echo reviewed Medical Decision Making female of unknown age and name with unknown medical history who presented BIBA after her called 911 because she had fallen on the floor and was not able to pick herself up after being on the floor for reportedly 24 hours. EMS states that the patient was laying on the carpeted floor on their arrival on scene at her home. The explained that he found her on the floor and she said she felt fine, so he did not call 911 until he saw her in the same place on the floor therafter. The patient was minimally responsive in the ED but able to state she was having left-sided weakness for the past three days which is what caused her to fall but thought it would pass and did not come to the hospital. There was a question of generalized seizure and positive troponins. CT head completed and did not show acute changes. MRI demonstrated subacute infarcts L temporal/parietal, L thalamic CVA. -Patient on Keppra for seizures, getting 1000mg twice daily, may need to be IV for now -Vimpat 100mg twice daily and Depakote increased to 1250mg twice daily can be continued, may need to be IV -Klonipin at 0.25mg has been helpful, sedation issue currently, held -Continue ASA -repeat CT head without acute changes -Abcess growing Gram + cocci in pairs, likely source of lethargy -BP control, goal < 160/90 for now, < 140/90 as outpatient -PT/OT as tolerated -Mental status has improved -Consider placement options -DVT ppx
--- NOTE | 2017-05-20 12:58 | PN ---
Progress Note, [employer] - Note Progress Note: Selected Entries 05/19/17 05/19/17 05/19/17 06:52 09:28 15:14 Breakfast 25% Lunch 0 Supper Temperature 97.5 F L 97.4 F L 98.2 F 05/19/17 05/19/17 05/19/17 17:52 18:41 22:00 Breakfast Lunch Supper 0 0 Temperature 98.4 F 97.9 F 05/20/17 05/20/17 10:00 11:17 Breakfast 25% Lunch Supper Temperature 98.3 F Laboratory Tests 05/19/17 05/20/17 06:00 06:00 WBC 7.8 8.4 Taking a little more by mouth. Seen being fed by her , educated on waiting for the swallow reflex, small bites, fed slowly, alternating solids with liquids. Encourage supplements. PEG planned due to inconsistency of PO intake, intermittent seizues, need for consistency of ability to give medications, etc. PEG may be used to supplement PO intake.
--- NOTE | 2017-05-20 13:21 | PN ---
Teaching Attending Note Name of Resident: Don Lopez ATTENDING PHYSICIAN STATEMENT I saw and evaluated the patient. I reviewed the resident's note and discussed the case with the resident. I agree with the resident's findings and plan as documented. SUBJECTIVE:asymptomatic. denies CP, SOB, fever,chills, N/V/C/D OBJECTIVE: Last Vital Signs Temp Pulse Resp BP Pulse Ox 98.3 F 71 18 102/69 97 05/20/17 10:00 05/20/17 10:05/20/17 10:05/20/17 10:05/19/17 21:00 General alert, A&O x0 HEENT no twitching noted CV S1 S2 RRR no murmur/rub/gallop Lungs CTA B/L no wheezing/rlaes/rhonchi Abdomen soft NT/ND Extremities no pedal edema back R shoulder non tender. bleeding noted on dressing. +packing in place ASSESSMENT AND PLAN: 66 yo F with PMH of alcohol abuse who presented to the ER after she was found on the floor by her . 1. Acute lethargy- appears to have wax/waning. no signs of infection (afebrile no luekocytosis) back abscess s/p I&D 05/18. was stated to be sebaceuous cyst. now WCx showing normal skin michael. will d/c abx 2. Dysphagia- component of poor mental status. unclear if this is progression of disease. family discussion regarding PEG. agreeable to PEG at this time. GI consulted. plan for PEG placement tuesday, cont low dose IVF to prevent dehydration. 3. 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 PT and speech pathology 4. Seizures, myoclonic movements of right side- resolved. will monitor closely. consider increasing klonopin but will hold for now to prevent lethargy. cont anti-eleptics 5. R shoulder swelling- u/s showing complex cyst 2.3x2.2x1cm. s/p I&D 05/18. normal skin michael. will d/c abx. 6. Acute anemia- no active signs of bleeding. HGB stable. txn for Hgb < 7. 7. Acute inferior wall STEMI- medical management. on asa/toprol/crestor 8. Hypokalemia- add KCl to IVF. +kriders x3 9. Alcohol abuse 10. E. coli UTI- Completed Rocephin 11. DVT ppx- hep sq
[2017-05-20] MEDS ORDERED: POTASSIUM CHLORIDE ORAL LIQUID 20 MEQ/15 ML PO ONE (14:30)
--- NOTE | 2017-05-20 14:52 | PN ---
Progress Note, Physician Chief Complaint: Reconsult for preoperative cardiac risk assessment of PEG. Patient appears comfortable. She is awake, but not answering questions. No acute distress. History of Present Illness: 66-year-old woman admitted with acute CVA with dense right hemiparesis. No tPA was given due to the fall. She was found to have acute inferior wall infarction. Her LV systolic function is normal and no symptoms of angina. Her hospital course was complicated by seizures and lethargy. She has fluctuating mental status. She was seen by GI. PEG placement planned. - Current Medication List Current Medications: Active Medications Acetaminophen (Tylenol -) 650 mg PO Q6H PRN PRN Reason: FEVER OR PAIN Amino Acids (Prosource No Carb Liquid Pkt) 30 ml PO BID@0800,1730 [facility] Last Admin: 05/20/17 08:44 Dose: 30 ml Aspirin (Asa -) 81 mg PO DAILY [facility] Last Admin: 05/20/17 09:35 Dose: 81 mg Clonazepam (Klonopin -) 0.25 mg PO BID [facility] Last Admin: 05/18/17 10:32 Dose: 0.25 mg Enoxaparin Sodium (Lovenox -) 40 mg SQ DAILY [facility] Last Admin: 05/20/17 09:36 Dose: 40 mg Potassium Chloride 20 meq/ (Dextrose/Sodium Chloride) 1,010 mls @ 75 mls/hr IV ASDIR [facility] Last Admin: 05/20/17 09:36 Dose: Not Given Lacosamide (Vimpat Liquid -) 100 mg PO BID [facility] Last Admin: 05/20/17 09:36 Dose: 100 mg Levetiracetam (Keppra Oral Solution -) 1,000 mg PO BID [facility] Last Admin: 05/20/17 09:36 Dose: 1,000 mg Metoprolol Tartrate (Lopressor -) 12.5 mg PO BID [facility] Last Admin: 05/20/17 09:36 Dose: 12.5 mg Rosuvastatin Calcium (Crestor -) 40 mg PO HS [facility] Last Admin: 05/19/17 21:51 Dose: 40 mg Senna (Senna -) 1 tab PO HS [facility] Last Admin: 05/19/17 21:51 Dose: 1 tab Valproate Sodium (Depakene -) 1,250 mg PO BID [facility] Last Admin: 05/20/17 09:35 Dose: 1,250 mg - Objective Vital Signs: Vital Signs Temperature 99.1 F 05/20/17 14:41 Pulse Rate 64 05/20/17 14:41 Respiratory Rate 18 05/20/17 14:41 Blood Pressure 112/76 05/20/17 14:41 O2 Sat by Pulse Oximetry (%) 96 05/20/17 09:00 Labs: CBC, BMP 05/20/17 06:00 05/20/17 06:00 INR, PTT INR 0.98 (0.82-1.09) 04/20/17 19:10 Assessment/Plan Ms. Isidro was seen by GI. PEG placement planned. She had recent acute inferior wall ST elevation NC in the setting of acute CVA. She has been stable without symptoms of angina or CHF. Her cardiac function is normal without regional wall motion abnormality. Patient is at intermediate risk of cardiac complication for the planned low risk PEG placement. There are no direct cardiac contraindication to the procedure. She is medically optimized. No further cardiac test recommended at this time. Continue current cardiac meds. Please call us for reconsult as needed.
--- NOTE | 2017-05-20 17:17 | PN ---
Physical Exam: SUBJECTIVE: Patient seen and examined at bedside. Patient is more alert today and more responsive to questioning. OBJECTIVE: Vital Signs Period Temp Pulse Resp BP Sys/Levine Pulse Ox Last 24 Hr 97.9 F-99.1 F 64-76 18-18 102-114/69-76 96-97 GENERAL: The patient is awake, alert, oriented to self only. in no acute distress. HEAD: Normal with no signs of trauma. EYES: extraocular movements intact, sclera anicteric, conjunctiva clear. No ptosis. NECK: Trachea midline, full range of motion, supple. LUNGS: Breath sounds equal, clear to auscultation bilaterally, no wheezes, no crackles, no accessory muscle use. HEART: Regular rate and rhythm, S1, S2 without murmur, rub or gallop. ABDOMEN: Soft, nontender, nondistended, normoactive bowel sounds, no guarding, no rebound. EXTREMITIES: 2+ pulses, warm, well-perfused, no edema. NEUROLOGICAL: Cranial nerves II through X grossly intact. Normal speech, gait not observed. SKIN: Warm, dry, normal turgor, no rashes or lesions noted Laboratory Results - last 24 hr 05/20/17 05/20/17 06:00 06:00 WBC 8.4 RBC 4.09 Hgb 12.0 Hct 35.6 MCV 87.1 MCH 29.4 MCHC 33.8 RDW 15.5 Plt Count 80 L MPV 8.7 Sodium 140 Potassium 3.1 L Chloride 104 Carbon Dioxide 29 Anion Gap 7 L BUN 7 Creatinine 0.7 Random Glucose 90 Calcium 9.3 Phosphorus 3.4 Magnesium 1.8 D Active Medications Generic Name Dose Route Start Last Admin Trade Name Freq PRN Reason Stop Dose Admin Acetaminophen 650 mg 05/02/17 06:48 Tylenol - PO Q6H PRN FEVER OR PAIN Amino Acids 30 ml 05/18/17 08:15 05/20/17 08:44 Prosource No Carb Liquid Pkt PO 30 ml BID@0800,1730 [facility] Administration Aspirin 81 mg 05/14/17 10:00 05/20/17 09:35 Asa - PO 81 mg DAILY [facility] Administration Clonazepam 0.25 mg 05/11/17 22:00 05/18/17 10:32 Klonopin - PO 0.25 mg BID [facility] Administration Enoxaparin Sodium 40 mg 05/18/17 10:00 05/20/17 09:36 Lovenox - SQ 40 mg DAILY [facility] Administration Potassium Chloride 20 meq/ 1,010 mls @ 75 mls/hr 05/19/17 10:21 05/20/17 09:36 Dextrose/Sodium Chloride IV Not Given ASDIR [facility] Lacosamide 100 mg 05/19/17 22:00 05/20/17 09:36 Vimpat Liquid - PO 100 mg BID [facility] Administration Levetiracetam 1,000 mg 05/19/17 12:00 05/20/17 09:36 Keppra Oral Solution - PO 1,000 mg BID [facility] Administration Metoprolol Tartrate 12.5 mg 05/18/17 11:45 05/20/17 09:36 Lopressor - PO 12.5 mg BID [facility] Administration Rosuvastatin Calcium 40 mg 05/02/17 22:00 05/19/17 21:51 Crestor - PO 40 mg HS [facility] Administration Senna 1 tab 05/02/17 22:00 05/19/17 21:51 Senna - PO 1 tab HS [facility] Administration Valproate Sodium 1,250 mg 05/19/17 13:00 05/20/17 09:35 Depakene - PO 1,250 mg BID [facility] Administration ASSESSMENT/PLAN: 66 yo f w/PMH ETOH abuse w/ rest of PMH unknown presents s/p fall for 24 hours 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 #Paresis, lethargy and seizures 2/2 to residual damage from CVA -converted medications to IV as patient unable to tolerate PO. -klonopin .25mg PO BID -Keppra 1g IV BID -Depakote 1250 IV BID -lacosamide 100mg IV BID -D51/2 NS as patient has poor PO intake # Acute drop in Hb- resolved -repeat Hb 12.1, dropped to 11.1 this AM; will monitor -possibly an error as sample drawn close to IV site -will conduct further workup if counts continue to drop #sebacious cyst on right side of back -US shows complex collection suspicious for abscess -afebrile -surgery consulted and performed I&D of abscess. -wound culture gowing mssa; nigelley contaminant -d/c'd clindamycin #patient for PEG placement -scheduled for 05/24 -Dr. Santoro consulted -will reconsult Dr. Benvaides for cardio clearance. # UTI - resolved #Troponinemia 2/2 STEMI- resolved -ASA 81 daily -Toprolol XL 25mg changed to metoprolol tartrate 12.5 BID as patient cannot tolerate PO #Lactic Acidosis- resolved #Elevated CK 2/2 acute DC vs seizure activity- resolved #NICOLÁS-resolved #FEN -D5 1/2 NS -potassium 3.0 today, added 2meq to IVF. will monitor. -Dysphagia puree with nectar consistency liquids #Propylaxsis -SCDs w/ lovenox 40 mg SQ as patient is at high risk for DVT -GI- not indicated at this time #Dispo -Patient's agrees with decision to bring patient to [facility]. -ongoing planning for [facility] once patient is stable -Pt for PEG placement 05/24; will require cardio clearance. Problem List - Problems (1) CVA (cerebral vascular accident) Code(s): I63.9 - CEREBRAL INFARCTION, UNSPECIFIED Qualifiers: CVA mechanism: unspecified Qualified Code(s): I63.9 - Cerebral infarction, unspecified; I63.9 - Cerebral infarction, unspecified; I63.9 - Cerebral infarction, unspecified; I63.9 - Cerebral infarction, unspecified (2) Seizure Code(s): R56.9 - UNSPECIFIED CONVULSIONS Visit type - Emergency Visit Emergency Visit: Yes ED Registration Date: 04/21/17 Care time: The patient presented to the Emergency Department on the above date and was hospitalized for further evaluation of their emergent condition. - New Patient This patient is new to me today: No - Critical Care Critical Care patient: No
[2017-05-20] MEDS ORDERED: ROSUVASTATIN CA 10 MG TABLET (FP) ONE (21:34)
[2017-05-20] MEDS: ROSUVASTATIN CA 20 MG TABLET (FP) PO SCH (21:47)
[2017-05-20] MEDS: SENNOSIDES 8.6MG TABLET (FP) PO SCH (21:48)
[2017-05-21] MEDS: DEXTROSE 5%-0.45% SALINE 1,000 ML with POTASSIUM CHLORIDE 20 MEQ IV SCH ×2 (02:36→11:42)
--- NOTE | 2017-05-21 07:56 | PN ---
Progress Note (short form) - Note Progress Note: no complaints. denies Cp, SOB, fever, chills, N/V/C/D Current Medications Generic Name Dose Route Start Last Admin Trade Name Teofilo PRN Reason Stop Dose Admin Acetaminophen 650 mg 05/02/17 06:48 Tylenol - PO Q6H PRN FEVER OR PAIN Amino Acids 30 ml 05/18/17 08:15 05/20/17 17:24 Prosource No Carb Liquid Pkt PO 30 ml BID@0800,1730 [facility] Administration Aspirin 81 mg 05/14/17 10:00 05/20/17 09:35 Asa - PO 81 mg DAILY [facility] Administration Clonazepam 0.25 mg 05/11/17 22:00 05/18/17 10:32 Klonopin - PO 0.25 mg BID [facility] Administration Enoxaparin Sodium 40 mg 05/18/17 10:00 05/20/17 09:36 Lovenox - SQ 40 mg DAILY [facility] Administration Potassium Chloride 20 meq/ 1,010 mls @ 75 mls/hr 05/19/17 10:21 05/21/17 02:36 Dextrose/Sodium Chloride IV 75 mls/hr ASDIR [facility] Administration Lacosamide 100 mg 05/19/17 22:00 05/20/17 21:48 Vimpat Liquid - PO 100 mg BID [facility] Administration Levetiracetam 1,000 mg 05/19/17 12:00 05/20/17 21:48 Keppra Oral Solution - PO 1,000 mg BID [facility] Administration Metoprolol Tartrate 12.5 mg 05/18/17 11:45 05/20/17 21:48 Lopressor - PO 12.5 mg BID [facility] Administration Rosuvastatin Calcium 40 mg 05/02/17 22:00 05/20/17 21:47 Crestor - PO 40 mg HS [facility] Administration Senna 1 tab 05/02/17 22:00 05/20/17 21:48 Senna - PO 1 tab HS [facility] Administration Valproate Sodium 1,250 mg 05/19/17 13:00 05/20/17 21:47 Depakene - PO 1,250 mg BID [facility] Administration Last Vital Signs Temp Pulse Resp BP Pulse Ox 99.7 F H 68 18 91/58 94 L 05/21/17 05:58 05/21/17 05:58 05/21/17 05:58 05/21/17 05:58 05/20/17 21:00 General alert, A&O x0 CV S1 S2 RRR no murmur/rub/gallop Lungs CTA B/L no wheezing/rlaes/rhonchi Abdomen soft NT/ND Extremities +twitching RUE ASSESSMENT AND PLAN: 66 yo F with PMH of alcohol abuse who presented to the ER after she was found on the floor by her . 1. Acute lethargy- appears to have wax/waning. this may be new mental status. no signs of infection (afebrile no luekocytosis) back abscess s/p I&D 05/18. was stated to be sebaceuous cyst. now WCx showing normal skin michael. 2. Dysphagia- component of poor mental status. unclear if this is progression of disease. family discussion regarding PEG. agreeable to PEG at this time. GI consulted. plan for PEG placement tuesday, cont low dose IVF to prevent dehydration. 3. 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 PT and speech pathology 4. Seizures, myoclonic movements of right side- some twitching RUE, klonopin on hold due to lethargy, will re-start at lower dose with holding parameter for lethagy. cont anti-eleptics 5. R shoulder swelling- u/s showing complex cyst 2.3x2.2x1cm. s/p I&D 05/18. normal skin michael. off abx 6. Acute anemia- no active signs of bleeding. HGB stable. txn for Hgb < 7. 7. Acute inferior wall STEMI- medical management. on asa/toprol/crestor 8. Hypokalemia- awaiting todays labs 9. Alcohol abuse 10. E. coli UTI- Completed Rocephin 11. DVT ppx- hep sq Visit type - Emergency Visit Emergency Visit: Yes ED Registration Date: 04/21/17 Care time: The patient presented to the Emergency Department on the above date and was hospitalized for further evaluation of their emergent condition. - New Patient This patient is new to me today: No - Critical Care Critical Care patient: No - Discharge Referral Referred to [facility] Med P.C.: No
[2017-05-21] MEDS: AMINO ACIDS/PROTEIN HYDROLYS 30 ML LIQUID.PKT PO SCH ×2 (08:16→16:45)
[2017-05-21] MEDS ORDERED: PT OWN MED DRAWER 7, Y5N ONE ×2 (09:13→22:50)
[2017-05-21] MEDS ORDERED: clonazePAM 0.5 MG TABLET PO SCH (09:15)
[2017-05-21] MEDS: LACOSAMIDE 10 MG/1 ML PO SCH ×2 (09:18→22:58)
[2017-05-21] MEDS: levETIRAcetam 500 MG/5 ML ORAL SOLUTION (UNIT-DOSE CUPS) PO SCH ×2 (09:18→22:54)
[2017-05-21] MEDS: METOPROLOL TARTRATE 25 MG TABLET (FP) PO SCH ×2 (09:18→22:51)
[2017-05-21] MEDS: ENOXAPARIN NA (PORCINE) 40 MG/0.4 ML DISP.SYRIN SQ SCH (09:18)
[2017-05-21] MEDS: VALPROATE SODIUM 250 MG/5 ML UNIT DOSE CUP PO SCH ×2 (09:18→22:54)
[2017-05-21] MEDS: ASPIRIN 81 MG CHEWABLE TABLETS PO SCH (09:18)
[2017-05-21] MEDS ORDERED: clonazePAM 0.5 MG TABLET PO PRN (10:00)
--- NOTE | 2017-05-21 10:02 | PN ---
Progress Note (short form) - Note Progress Note: CC left parietal lobe infarct also involving left thalamic area 66 year old female history of Hypertension, admitted for left parietal and thalamic stroke. She has very bad right sided focal seizures vs myoclonic jerks , and her mental status was detiorated after giving klonopin , now patient mental status has improved and she was able to eat this morning. Her current medication include keppra, crestor, aspirin, lacosamide and clonazepam and valproic acid. Active Medications Acetaminophen (Tylenol -) 650 mg PO Q6H PRN PRN Reason: FEVER OR PAIN Amino Acids (Prosource No Carb Liquid Pkt) 30 ml PO BID@0800,1730 [facility] Last Admin: 05/20/17 08:44 Dose: 30 ml Aspirin (Asa -) 81 mg PO DAILY [facility] Last Admin: 05/20/17 09:35 Dose: 81 mg Clonazepam (Klonopin -) 0.25 mg PO BID [facility] Last Admin: 05/18/17 10:32 Dose: 0.25 mg Enoxaparin Sodium (Lovenox -) 40 mg SQ DAILY [facility] Last Admin: 05/20/17 09:36 Dose: 40 mg Potassium Chloride 20 meq/ (Dextrose/Sodium Chloride) 1,010 mls @ 75 mls/hr IV ASDIR [facility] Last Admin: 05/20/17 09:36 Dose: Not Given Lacosamide (Vimpat Liquid -) 100 mg PO BID [facility] Last Admin: 05/20/17 09:36 Dose: 100 mg Levetiracetam (Keppra Oral Solution -) 1,000 mg PO BID [facility] Last Admin: 05/20/17 09:36 Dose: 1,000 mg Metoprolol Tartrate (Lopressor -) 12.5 mg PO BID [facility] Last Admin: 05/20/17 09:36 Dose: 12.5 mg Rosuvastatin Calcium (Crestor -) 40 mg PO HS [facility] Last Admin: 05/19/17 21:51 Dose: 40 mg Senna (Senna -) 1 tab PO HS [facility] Last Admin: 05/19/17 21:51 Dose: 1 tab Valproate Sodium (Depakene -) 1,250 mg PO BID [facility] Last Admin: 05/20/17 09:35 Dose: 1,250 mg Neurological Examination limited by mental status alert follow command, and able to speak, she is oriented x 1 There is right sided hemparesis Mri of brain and recent ct scan reviewed Assessment- left hemispheric stroke , currently on statin, apsirin and three antiepileptic medication plus Klonopin . Klonopin is being resumed today. PLan- she is currently maximal medical therapy, continue current medication and all AED. Please feel free to call me if you have any question Emmanuel Ramos MD
[2017-05-21 10:20] LABS: ANION GAP 7 (8-16); CALCIUM 9.2 mg/dL (8.5-10.1); CO2 27 mmol/L (21-32); CREATININE 0.8 mg/dL (0.55-1.02); GLUCOSE,RANDOM 114 mg/dL (74-106); MAGNESIUM 1.6 mg/dL (1.8-2.4)
[2017-05-21] MEDS: clonazePAM 0.5 MG TABLET PO SCH ×2 (11:42→22:57)
[2017-05-21] MEDS ORDERED: MAGNESIUM OXIDE 400 MG TABLET (FP) PO ONE (15:45)
[2017-05-21] MEDS ORDERED: POTASSIUM CHLORIDE ORAL LIQUID 20 MEQ/15 ML PO ONE (15:45)
[2017-05-21] MEDS ORDERED: ROSUVASTATIN CA 10 MG TABLET (FP) ONE (22:49)
[2017-05-21] MEDS: SENNOSIDES 8.6MG TABLET (FP) PO SCH (22:51)
[2017-05-21] MEDS: ROSUVASTATIN CA 20 MG TABLET (FP) PO SCH (22:51)
[2017-05-22] MEDS: DEXTROSE 5%-0.45% SALINE 1,000 ML with POTASSIUM CHLORIDE 20 MEQ IV SCH ×2 (04:48→18:13)
[2017-05-22] MEDS: AMINO ACIDS/PROTEIN HYDROLYS 30 ML LIQUID.PKT PO SCH ×2 (08:23→16:50)
[2017-05-22] MEDS ORDERED: PT OWN MED DRAWER 7, Y5N ONE ×2 (09:01→20:28)
[2017-05-22] MEDS: VALPROATE SODIUM 250 MG/5 ML UNIT DOSE CUP PO SCH ×2 (09:06→21:14)
[2017-05-22] MEDS: ENOXAPARIN NA (PORCINE) 40 MG/0.4 ML DISP.SYRIN SQ SCH (09:07)
[2017-05-22] MEDS: LACOSAMIDE 10 MG/1 ML PO SCH ×2 (09:07→21:16)
[2017-05-22] MEDS: clonazePAM 0.5 MG TABLET PO SCH ×2 (09:07→21:13)
[2017-05-22] MEDS: levETIRAcetam 500 MG/5 ML ORAL SOLUTION (UNIT-DOSE CUPS) PO SCH ×2 (09:07→21:14)
[2017-05-22] MEDS: METOPROLOL TARTRATE 25 MG TABLET (FP) PO SCH ×2 (09:07→21:12)
[2017-05-22] MEDS: ASPIRIN 81 MG CHEWABLE TABLETS PO SCH (09:07)
--- NOTE | 2017-05-22 09:46 | PN ---
Physical Exam: SUBJECTIVE: Patient seen and examined at bedside. Patient much more awake and talkative today. Quicker to respond to questions. Patient denies any pain. OBJECTIVE: Vital Signs Period Temp Pulse Resp BP Sys/Levine Pulse Ox Last 24 Hr 98.0 F-98.6 F 66-76 18-18 93-100/60-64 96 GENERAL: The patient is awake, alert, and oriented to self only. in no acute distress. LUNGS: Breath sounds equal, clear to auscultation bilaterally, no wheezes, no crackles, no accessory muscle use. HEART: Regular rate and rhythm, S1, S2 without murmur, rub or gallop. ABDOMEN: Soft, nontender, nondistended, normoactive bowel sounds, no guarding, no rebound. NEUROLOGICAL: Normal speech, gait not observed. Strength 5/5 on left side and 1/ 5 in RUE and 0/5 in RLE. PSYCH: Normal mood, normal affect. SKIN: Warm, dry, normal turgor, no rashes or lesions noted Laboratory Results - last 24 hr 05/21/17 09:45 Sodium 141 Potassium 3.7 Chloride 107 Carbon Dioxide 27 Anion Gap 7 L BUN 9 D Creatinine 0.8 Random Glucose 114 H D Calcium 9.2 Magnesium 1.6 L Active Medications Generic Name Dose Route Start Last Admin Trade Name Teofilo PRN Reason Stop Dose Admin Acetaminophen 650 mg 05/02/17 06:48 Tylenol - PO Q6H PRN FEVER OR PAIN Amino Acids 30 ml 05/18/17 08:15 05/22/17 08:23 Prosource No Carb Liquid Pkt PO 30 ml BID@0800,1730 [facility] Administration Aspirin 81 mg 05/14/17 10:00 05/22/17 09:07 Asa - PO 81 mg DAILY [facility] Administration Clonazepam 0.25 mg 05/21/17 10:00 05/22/17 09:07 Klonopin - PO 0.25 mg BID [facility] Administration Enoxaparin Sodium 40 mg 05/18/17 10:00 05/22/17 09:07 Lovenox - SQ 40 mg DAILY [facility] Administration Potassium Chloride 20 meq/ 1,010 mls @ 75 mls/hr 05/19/17 10:21 05/22/17 04:48 Dextrose/Sodium Chloride IV 75 mls/hr ASDIR [facility] Administration Lacosamide 100 mg 05/19/17 22:00 05/22/17 09:07 Vimpat Liquid - PO 100 mg BID [facility] Administration Levetiracetam 1,000 mg 05/19/17 12:00 05/22/17 09:07 Keppra Oral Solution - PO 1,000 mg BID [facility] Administration Metoprolol Tartrate 12.5 mg 05/18/17 11:45 05/22/17 09:07 Lopressor - PO 12.5 mg BID [facility] Administration Rosuvastatin Calcium 40 mg 05/02/17 22:00 05/21/17 22:51 Crestor - PO 40 mg HS [facility] Administration Senna 1 tab 05/02/17 22:00 05/21/17 22:51 Senna - PO 1 tab HS [facility] Administration Valproate Sodium 1,250 mg 05/19/17 13:00 05/22/17 09:06 Depakene - PO 1,250 mg BID [facility] Administration ASSESSMENT/PLAN: 66 yo f w/ PMH ETOH abuse w/ rest of PMH unknown presents s/p fall for 24 hours 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 #Paresis, lethargy and seizures 2/2 to residual damage from CVA -converted medications to IV as patient unable to tolerate PO. -klonopin .25mg PO BID -Keppra 1g IV BID -Depakote 1250 IV BID -lacosamide 100mg IV BID -D51/2 NS as patient has poor PO intake #sebaceous cyst on right side of back -US shows complex collection suspicious for abscess -afebrile -surgery consulted and performed I&D. -wound culture gowing mssa; steffany contaminant -d/c'd clindamycin #patient for PEG placement -scheduled for 05/24 -Dr. Santoro consulted -Cardio has cleared patient. # Acute drop in Hb- resolved -will monitor periodically # UTI - resolved #Troponinemia 2/2 STEMI- resolved -ASA 81 daily -metoprolol tartrate 12.5 BID; Hold parameters placed on beta blockers as patient has been hypotensive #Lactic Acidosis- resolved #Elevated CK 2/2 acute PR vs seizure activity- resolved #NICOLÁS-resolved #FEN -D5 1/2 NS -potassium 3.0 today, added 2meq to IVF. will monitor. -Dysphagia puree with nectar consistency liquids #Propylaxsis -SCDs w/ lovenox 40 mg SQ as patient is at high risk for DVT -GI- not indicated at this time #Dispo -Patient's agrees with decision to bring patient to [facility]. -ongoing planning for [facility] once patient is stable -Pt for PEG placement 05/24; will require cardio clearance. Problem List - Problems (1) CVA (cerebral vascular accident) Code(s): I63.9 - CEREBRAL INFARCTION, UNSPECIFIED Qualifiers: CVA mechanism: unspecified Qualified Code(s): I63.9 - Cerebral infarction, unspecified; I63.9 - Cerebral infarction, unspecified; I63.9 - Cerebral infarction, unspecified; I63.9 - Cerebral infarction, unspecified (2) Seizure Code(s): R56.9 - UNSPECIFIED CONVULSIONS Visit type - Emergency Visit Emergency Visit: Yes ED Registration Date: 04/21/17 Care time: The patient presented to the Emergency Department on the above date and was hospitalized for further evaluation of their emergent condition. - New Patient This patient is new to me today: No - Critical Care Critical Care patient: No
--- NOTE | 2017-05-22 09:47 | PN ---
Teaching Attending Note Name of Resident: Don Lopez ATTENDING PHYSICIAN STATEMENT I saw and evaluated the patient. I reviewed the resident's note and discussed the case with the resident. I agree with the resident's findings and plan as documented. SUBJECTIVE:resting comfortable. offers no complaints OBJECTIVE: Last Vital Signs Temp Pulse Resp BP Pulse Ox 98.6 F 69 18 93/60 96 05/21/17 18:00 05/21/17 18:00 05/21/17 21:00 05/21/17 18:00 05/21/17 21:00 General alert, A&O x1 (self only) CV S1 S2 RRR no murmur/rub/gallop Lungs CTA B/L no wheezing/rlaes/rhonchi Abdomen soft NT/ND Extremities no twitching noted ASSESSMENT AND PLAN: 66 yo F with PMH of alcohol abuse who presented to the ER after she was found on the floor by her . 1. Acute lethargy- appears to have wax/waning. this may be new mental status. no signs of infection (afebrile no luekocytosis) back abscess s/p I&D 05/18. was stated to be sebaceuous cyst. now WCx showing normal skin michael. 2. Dysphagia- component of poor mental status. unclear if this is progression of disease. family discussion regarding PEG. agreeable to PEG at this time. GI consulted. plan for PEG placement tuesday, cont low dose IVF to prevent dehydration. 3. 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 PT and speech pathology 4. Seizures, myoclonic movements of right side- some twitching RUE, klonopin with holding parameters. no more twitching noted. cont anti-eleptics 5. R shoulder swelling- u/s showing complex cyst 2.3x2.2x1cm. s/p I&D 05/18. normal skin michael. off abx 6. Acute anemia- no active signs of bleeding. HGB stable. txn for Hgb < 7. 7. Acute inferior wall STEMI- medical management. on asa/toprol/crestor 8. Hypokalemia- awaiting todays labs 9. Alcohol abuse 10. E. coli UTI- Completed Rocephin 11. DVT ppx- hep sq
[2017-05-22] MEDS ORDERED: POTASSIUM CHLORIDE ORAL LIQUID 20 MEQ/15 ML PO ONE (14:15)
--- NOTE | 2017-05-22 15:17 | PN ---
Progress Note (short form) - Note Progress Note: at bedside. Feeding patient soft foods. States she is eating all of it. Consider 24 hr caloric count. Reevaluate need for PEG. Problem List - Problems (1) Failure to thrive in adult Code(s): R62.7 - ADULT FAILURE TO THRIVE (2) CVA (cerebral vascular accident) Code(s): I63.9 - CEREBRAL INFARCTION, UNSPECIFIED Qualifiers: CVA mechanism: unspecified Qualified Code(s): I63.9 - Cerebral infarction, unspecified; I63.9 - Cerebral infarction, unspecified; I63.9 - Cerebral infarction, unspecified; I63.9 - Cerebral infarction, unspecified (3) Seizure Code(s): R56.9 - UNSPECIFIED CONVULSIONS (4) STEMI (ST elevation myocardial infarction) Code(s): I21.3 - ST ELEVATION (STEMI) MYOCARDIAL INFARCTION OF UNSP SITE Qualifiers: Involved coronary artery: LAD coronary artery Qualified Code(s): I21.02 - ST elevation (STEMI) myocardial infarction involving left anterior descending coronary artery; I21.02 - ST elevation (STEMI) myocardial infarction involving left anterior descending coronary artery; I21.02 - ST elevation (STEMI ) myocardial infarction involving left anterior descending coronary artery; I21.02 - ST elevation (STEMI) myocardial infarction involving left anterior descending coronary artery
[2017-05-22] MEDS ORDERED: ROSUVASTATIN CA 10 MG TABLET (FP) ONE (20:25)
[2017-05-22] MEDS: ROSUVASTATIN CA 20 MG TABLET (FP) PO SCH (21:13)
[2017-05-22] MEDS: SENNOSIDES 8.6MG TABLET (FP) PO SCH (21:14)
[2017-05-23] MEDS: DEXTROSE 5%-0.45% SALINE 1,000 ML with POTASSIUM CHLORIDE 20 MEQ IV SCH ×3 (06:29→21:20)
[2017-05-23 08:03] LABS: ANION GAP 6 (8-16); CALCIUM 8.7 mg/dL (8.5-10.1); CO2 29 mmol/L (21-32); CREATININE 0.8 mg/dL (0.55-1.02); GLUCOSE,RANDOM 88 mg/dL (74-106); MAGNESIUM 1.7 mg/dL (1.8-2.4); PHOSPHOROUS 3.7 mg/dL (2.5-4.9)
[2017-05-23] MEDS: AMINO ACIDS/PROTEIN HYDROLYS 30 ML LIQUID.PKT PO SCH ×2 (09:46→18:39)
--- NOTE | 2017-05-23 10:18 | PN ---
Progress Note (short form) - Note Progress Note: Neurology This is a female of unknown age and name with unknown medical history who presented BIBA after her called 911 because she had fallen on the floor and was not able to pick herself up after being on the floor for reportedly 24 hours. EMS states that the patient was laying on the carpeted floor on their arrival on scene at her home. The explained that he found her on the floor and she said she felt fine, so he did not call 911 until he saw her in the same place on the floor therafter. The patient was minimally responsive in the ED but able to state she was having left-sided weakness for the past three days which is what caused her to fall but thought it would pass and did not come to the hospital. She was out of TPA window. MRI completed and showed subacute infarcts L temporal/parietal, L thalamic and she does have right sided deficits. There was some facial twitching and patient put on Keppra, increased to 1000mg twice a day, Vimpat also started 100mg twice daily, Depakote also started with good control. Patient on ASA 81mg. CD without hemodynamically significant stenosis, Echo complete and LV function normal. Completed Abx for UTI. Some mild twitching, depakote had been increased to 1250mg twice daily. Has been arousable and more communicative. Regarding R shoulder abcess, this likely source of lethargy. Was incised and drained. No twitching which has been stable. Active Medications Acetaminophen (Tylenol -) 650 mg PO Q6H PRN PRN Reason: FEVER OR PAIN Amino Acids (Prosource No Carb Liquid Pkt) 30 ml PO BID@0800,1730 [facility] Last Admin: 05/22/17 16:50 Dose: 30 ml Aspirin (Asa -) 81 mg PO DAILY [facility] Last Admin: 05/22/17 09:07 Dose: 81 mg Clonazepam (Klonopin -) 0.25 mg PO BID [facility] Last Admin: 05/22/17 21:13 Dose: 0.25 mg Enoxaparin Sodium (Lovenox -) 40 mg SQ DAILY [facility] Last Admin: 05/22/17 09:07 Dose: 40 mg Potassium Chloride 20 meq/ (Dextrose/Sodium Chloride) 1,010 mls @ 75 mls/hr IV ASDIR [facility] Last Admin: 05/23/17 06:29 Dose: 75 mls/hr Lacosamide (Vimpat Liquid -) 100 mg PO BID [facility] Last Admin: 05/22/17 21:16 Dose: 100 mg Levetiracetam (Keppra Oral Solution -) 1,000 mg PO BID [facility] Last Admin: 05/22/17 21:14 Dose: 1,000 mg Metoprolol Tartrate (Lopressor -) 12.5 mg PO BID [facility] Last Admin: 05/22/17 21:12 Dose: 12.5 mg Rosuvastatin Calcium (Crestor -) 40 mg PO [facility] Last Admin: 05/22/17 21:13 Dose: 40 mg Senna (Senna -) 1 tab PO [facility] Last Admin: 05/22/17 21:14 Dose: 1 tab Valproate Sodium (Depakene -) 1,250 mg PO BID [facility] Last Admin: 05/22/17 21:14 Dose: 1,250 mg *Physical Exam Vital Signs Period Temp Pulse Resp BP Sys/Levine Pulse Ox Last 24 Hr 97.2 F-97.8 F 63-70 18-18 93-118/61-75 96 - Physical Exam General Appearance: Yes: Disheveled, HEENT: positive: Hearing Grossly Normal, Neck: positive: Trachea midline, Supple. negative: Tender, Rigid Respiratory/Chest: positive: Lungs Clear, Normal Breath Sounds. negative: Respiratory Distress, Crackles, Rhonchi, Stridor, Wheezing Cardiovascular: positive: Regular Rhythm, Regular Rate. negative: Murmur Gastrointestinal/Abdominal: positive: Normal Bowel Sounds, Soft. negative: Tender, Organomegaly, Pulsatile Mass, Guarding Musculoskeletal: positive: Normal Inspection. negative: Decreased Range of Motion, Vertebral Tenderness Extremity: positive: Normal Capillary Refill, Normal Inspection, Normal Range of Motion. negative: Tender, Cyanosis Integumentary: positive: Normal Color, Dry, Warm. negative: Erythema, Rash, Bruising Neurologic: Limited exam, not participating in full confrontation, move LUE slight more than right, ?3/5 on R, ? 2/5 on L, tactile stimulation intact but limited on R, gait deferred CBCD WBC 8.4 K/mm3 (4.0-10.0) 05/20/17 06:00 RBC 4.09 M/mm3 (3.60-5.2) 05/20/17 06:00 Hgb 12.0 GM/dL (10.7-15.3) 05/20/17 06:00 Hct 35.6 % (32.4-45.2) 05/20/17 06:00 MCV 87.1 fl (80-96) 05/20/17 06:00 MCHC 33.8 g/dl (32.0-36.0) 05/20/17 06:00 RDW 15.5 % (11.6-15.6) 05/20/17 06:00 Plt Count 80 K/MM3 (134-434) L 05/20/17 06:00 MPV 8.7 fl (7.5-11.1) 05/20/17 06:00 CMP Sodium 140 mmol/L (136-145) 05/23/17 06:00 Potassium 3.6 mmol/L (3.5-5.1) 05/23/17 06:00 Chloride 105 mmol/L (98-107) 05/23/17 06:00 Carbon Dioxide 29 mmol/L (21-32) 05/23/17 06:00 Anion Gap 6 (8-16) L 05/23/17 06:00 BUN 11 mg/dL (7-18) D 05/23/17 06:00 Creatinine 0.8 mg/dL (0.55-1.02) 05/23/17 06:00 Creat Clearance w eGFR > 60 (>60) 05/19/17 06:00 Calcium 8.7 mg/dL (8.5-10.1) 05/23/17 06:00 Total Bilirubin 0.3 mg/dL (0.2-1.0) 05/19/17 06:00 AST 20 U/L (15-37) 05/19/17 06:00 ALT 10 U/L (12-78) L 05/19/17 06:00 Alkaline Phosphatase 49 U/L (45-117) 05/19/17 06:00 Total Protein 6.4 g/dl (6.4-8.2) 05/19/17 06:00 Albumin 2.2 g/dl (3.4-5.0) L 05/19/17 06:00 - RADIOLOGY MRI brain reviewed CT head repeated and reviewed CD, echo reviewed Medical Decision Making female of unknown age and name with unknown medical history who presented BIBA after her called 911 because she had fallen on the floor and was not able to pick herself up after being on the floor for reportedly 24 hours. EMS states that the patient was laying on the carpeted floor on their arrival on scene at her home. The explained that he found her on the floor and she said she felt fine, so he did not call 911 until he saw her in the same place on the floor therafter. The patient was minimally responsive in the ED but able to state she was having left-sided weakness for the past three days which is what caused her to fall but thought it would pass and did not come to the hospital. There was a question of generalized seizure and positive troponins. CT head completed and did not show acute changes. MRI demonstrated subacute infarcts L temporal/parietal, L thalamic CVA. -Patient on Keppra for seizures, getting 1000mg twice daily, -Vimpat 100mg twice daily and Depakote increased to 1250mg twice daily can be continued -Klonipin at 0.25mg has been helpful, sedation issue currently, held -Continue ASA -repeat CT head without acute changes -Shoulder wound treated -BP control, goal < 160/90 for now, < 140/90 as outpatient -PT/OT as tolerated -Mental status has improved -Consider placement options -DVT ppx
[2017-05-23] MEDS: ASPIRIN 81 MG CHEWABLE TABLETS PO SCH (11:46)
[2017-05-23] MEDS: clonazePAM 0.5 MG TABLET PO SCH ×2 (11:47→21:18)
[2017-05-23] MEDS: METOPROLOL TARTRATE 25 MG TABLET (FP) PO SCH ×3 (11:47→21:19)
[2017-05-23] MEDS ORDERED: PT OWN MED DRAWER 7, Y5N ONE ×3 (11:57→20:08)
[2017-05-23] MEDS: VALPROATE SODIUM 250 MG/5 ML UNIT DOSE CUP PO SCH ×2 (12:01→21:18)
[2017-05-23] MEDS: LACOSAMIDE 10 MG/1 ML PO SCH ×2 (12:01→21:19)
[2017-05-23] MEDS: levETIRAcetam 500 MG/5 ML ORAL SOLUTION (UNIT-DOSE CUPS) PO SCH ×2 (12:01→21:18)
[2017-05-23] MEDS: ENOXAPARIN NA (PORCINE) 40 MG/0.4 ML DISP.SYRIN SQ SCH (12:02)
--- NOTE | 2017-05-23 12:02 | PN ---
Progress Note (short form) - Note Progress Note: tolerating soft diet. needs assistance. Caloric count. Reevaluate need for PEG. Problem List - Problems (1) Failure to thrive in adult Code(s): R62.7 - ADULT FAILURE TO THRIVE (2) CVA (cerebral vascular accident) Code(s): I63.9 - CEREBRAL INFARCTION, UNSPECIFIED Qualifiers: CVA mechanism: unspecified Qualified Code(s): I63.9 - Cerebral infarction, unspecified; I63.9 - Cerebral infarction, unspecified; I63.9 - Cerebral infarction, unspecified; I63.9 - Cerebral infarction, unspecified (3) Seizure Code(s): R56.9 - UNSPECIFIED CONVULSIONS (4) STEMI (ST elevation myocardial infarction) Code(s): I21.3 - ST ELEVATION (STEMI) MYOCARDIAL INFARCTION OF UNSP SITE Qualifiers: Involved coronary artery: LAD coronary artery Qualified Code(s): I21.02 - ST elevation (STEMI) myocardial infarction involving left anterior descending coronary artery; I21.02 - ST elevation (STEMI) myocardial infarction involving left anterior descending coronary artery; I21.02 - ST elevation (STEMI ) myocardial infarction involving left anterior descending coronary artery; I21.02 - ST elevation (STEMI) myocardial infarction involving left anterior descending coronary artery
[2017-05-23] MEDS ORDERED: MAGNESIUM SULF 50% (8.12 MEQ/2 ML-1 GM VIAL) IVPB ONE ×2 (13:30→16:15)
--- NOTE | 2017-05-23 13:51 | PN ---
Teaching Attending Note Name of Resident: Brian Paz ATTENDING PHYSICIAN STATEMENT I saw and evaluated the patient. I reviewed the resident's note and discussed the case with the resident. I agree with the resident's findings and plan as documented. SUBJECTIVE:asymptomatic. denies Cp, SOB, fever, chills, N/V/c/D. OBJECTIVE: Last Vital Signs Temp Pulse Resp BP Pulse Ox 97.8 F 63 18 118/75 96 05/23/17 07:34 05/23/17 07:34 05/23/17 07:34 05/23/17 07:34 05/22/17 21:00 General alert, A&O x1 (self only) CV S1 S2 RRR no murmur/rub/gallop Lungs CTA B/L no wheezing/rlaes/rhonchi Abdomen soft NT/ND Extremities random myotonic twitching RUE ASSESSMENT AND PLAN: 66 yo F with PMH of alcohol abuse who presented to the ER after she was found on the floor by her . 1. Acute lethargy- appears to have wax/waning. this may be new mental status. no signs of infection (afebrile no luekocytosis) back abscess s/p I&D 05/18. was stated to be sebaceuous cyst. now WCx showing normal skin michael. 2. Dysphagia- component of poor mental status. as per she is eating most of her meals but noted by RN she is not. will do calorie count and determine if PEG still indicated at this time. PEG placement on hold. cont low dose IVF to prevent dehydration. 3. 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 PT and speech pathology 4. Seizures, myoclonic movements of right side- some twitching RUE, klonopin with holding parameters. no more twitching noted. cont anti-eleptics 5. R shoulder swelling- u/s showing complex cyst 2.3x2.2x1cm. s/p I&D 05/18. normal skin michael. off abx 6. Acute anemia- no active signs of bleeding. HGB stable. txn for Hgb < 7. 7. Acute inferior wall STEMI- medical management. on asa/toprol/crestor 8. Hypokalemia- resolved 9. hypomagnesemia- Mg 800mg 10. Alcohol abuse 11. E. coli UTI- Completed Rocephin 12. DVT ppx- hep sq
--- NOTE | 2017-05-23 14:43 | PN ---
Progress Note, FIELD AUDITOR - Note Progress Note: Selected Entries 05/21/17 05/21/17 05/21/17 10:00 15:46 18:00 Breakfast 50% Lunch 0 Supper 25% Temperature 05/21/17 05/22/17 05/22/17 22:00 09:41 10:00 Breakfast 0 Lunch Supper 25% Temperature 97.9 F 05/22/17 05/22/17 05/22/17 15:39 18:00 22:00 Breakfast Lunch 25% Supper 25% Temperature 97.6 F 97.2 F L 97.8 F 05/23/17 05/23/17 07:34 10:00 Breakfast 50% Lunch Supper Temperature 97.8 F Pending PEG insertion tomorrow. GI recommended calorie count to reconsider necessity for PEG. PO intake seems inconsistent. Concern regarding periods of lethargy/ seizures? may adversely affect sufficient PO acceptance and ability to receive medication. May benefit from PEG insertion to supplement PO intake with goal to wean from TF , if pt improves. Encourage supplements b/n meals.
--- NOTE | 2017-05-23 18:54 | PN ---
Physical Exam: SUBJECTIVE: Patient seen and examined at bedside. Patient is lethargic appearing and is unable to answer any of my questions or respond to my commands. OBJECTIVE: Vital Signs Period Temp Pulse Resp BP Sys/Levine Pulse Ox Last 24 Hr 97 F-98.9 F 62-70 18-20 90-132/56-75 96-96 GENERAL: The patient is awake, awake but not alert or oriented. Is not in any acute distress. HEAD: Normal with no signs of trauma. ENT: Ears normal, nares patent, oropharynx clear without exudates, moist mucous membranes. NECK: Trachea midline, full range of motion, supple. LUNGS: Breath sounds equal, clear to auscultation bilaterally, no wheezes, no crackles, no accessory muscle use. HEART: Regular rate and rhythm, S1, S2 without murmur, rub or gallop. ABDOMEN: Soft, nontender, nondistended, normoactive bowel sounds, no guarding, no rebound, no hepatosplenomegaly, no masses. EXTREMITIES: 2+ pulses, warm, well-perfused, no edema. NEUROLOGICAL: Cranial nerves II through XII grossly intact. Normal speech, gait not observed. PSYCH: Normal mood, normal affect. SKIN: Warm, dry, normal turgor, no rashes or lesions noted Laboratory Results - last 24 hr 05/23/17 06:00 Sodium 140 Potassium 3.6 Chloride 105 Carbon Dioxide 29 Anion Gap 6 L BUN 11 D Creatinine 0.8 Random Glucose 88 D Calcium 8.7 Phosphorus 3.7 Magnesium 1.7 L Active Medications Generic Name Dose Route Start Last Admin Trade Name Freq PRN Reason Stop Dose Admin Acetaminophen 650 mg 05/02/17 06:48 Tylenol - PO Q6H PRN FEVER OR PAIN Amino Acids 30 ml 05/18/17 08:15 05/23/17 09:46 Prosource No Carb Liquid Pkt PO 30 ml BID@0800,1730 [facility] Administration Aspirin 81 mg 05/14/17 10:00 05/23/17 11:46 Asa - PO 81 mg DAILY [facility] Administration Clonazepam 0.25 mg 05/21/17 10:00 05/23/17 11:47 Klonopin - PO 0.25 mg BID [facility] Administration Enoxaparin Sodium 40 mg 05/18/17 10:00 05/23/17 12:02 Lovenox - SQ 40 mg DAILY [facility] Administration Potassium Chloride 20 meq/ 1,010 mls @ 75 mls/hr 05/19/17 10:21 05/23/17 12:02 Dextrose/Sodium Chloride IV Not Given ASDIR [facility] Lacosamide 100 mg 05/19/17 22:00 05/23/17 12:01 Vimpat Liquid - PO 100 mg BID [facility] Administration Levetiracetam 1,000 mg 05/19/17 12:00 05/23/17 12:01 Keppra Oral Solution - PO 1,000 mg BID [facility] Administration Metoprolol Tartrate 12.5 mg 05/22/17 11:34 05/23/17 12:03 Lopressor - PO Not Given BID [facility] Rosuvastatin Calcium 40 mg 05/02/17 22:00 05/22/17 21:13 Crestor - PO 40 mg HS [facility] Administration Senna 1 tab 05/02/17 22:00 05/22/17 21:14 Senna - PO 1 tab HS [facility] Administration Valproate Sodium 1,250 mg 05/19/17 13:00 05/23/17 12:01 Depakene - PO 1,250 mg BID [facility] Administration ASSESSMENT/PLAN: 66 year old female w/ hx of alcohol abuse presented to the ED after being found on the floor by her , hospitalized, on day 34 for L temporal/parietal CVA and seizures, acute inferior wall SD 1. Lethargy: her lethargy waxes and wanes, could be lethargic and unresponsive to commands and several hours later be oriented -no signs of any acute cause or infection -continue to monitor 2. Dysphagia: patient's states that she is able to eat foods - nurse did not observe that same finding. -order calorie count and plan for PEG if necessary -continue low dose IVF for hydration 3. CVA: -continues to have R hemiparesis -continue aspirin 81mg -continue crestor 40mg 4. Seizures: patient continues to have myoclonic movements of her right upper extremity -patient is on klonopin, which has been effective, continue medication -continue keppra 1000 BID and depakene 1250 5. R shoulder cyst: ultrasound revealed a cystic mass with dimensions 2.3 x 2.2x 1 centimeters -patient received an I&D on 05/18 and pathology revealed normal skin michael -patient is not currently receiving antibiotics 6. Acute Inferior Wall SD: currently managed medically, no other intervention required -continue aspirin -continue crestor 7. Hypomagnesemia: magnesium was low at 1.7 -replete magnesium with 2gm IV Mag 8. Hypokalemia: resolved -monitor K and Mg in the AM 9. UTI: resolved 10. FEN -patient is on KCl 20meq in dextrose/NS @75/hr -electrolytes stable, measure CMP in AM -continue dysphagia puree diet 11. Prophylaxis -cont lovenox 40mg QD 12. Dyspo: -f/u calorie count -need to d/c to [facility] facility -pending PEG placement if calorie count low Problem List - Problems (1) NICOLÁS (acute kidney injury) Code(s): N17.9 - ACUTE KIDNEY FAILURE, UNSPECIFIED (2) Abscess Code(s): L02.91 - CUTANEOUS ABSCESS, UNSPECIFIED (3) CVA (cerebral vascular accident) Code(s): I63.9 - CEREBRAL INFARCTION, UNSPECIFIED Qualifiers: CVA mechanism: unspecified Qualified Code(s): I63.9 - Cerebral infarction, unspecified; I63.9 - Cerebral infarction, unspecified; I63.9 - Cerebral infarction, unspecified; I63.9 - Cerebral infarction, unspecified (4) STEMI (ST elevation myocardial infarction) Code(s): I21.3 - ST ELEVATION (STEMI) MYOCARDIAL INFARCTION OF UNSP SITE Qualifiers: Involved coronary artery: LAD coronary artery Qualified Code(s): I21.02 - ST elevation (STEMI) myocardial infarction involving left anterior descending coronary artery; I21.02 - ST elevation (STEMI) myocardial infarction involving left anterior descending coronary artery; I21.02 - ST elevation (STEMI ) myocardial infarction involving left anterior descending coronary artery; I21.02 - ST elevation (STEMI) myocardial infarction involving left anterior descending coronary artery (5) Seizure Code(s): R56.9 - UNSPECIFIED CONVULSIONS (6) UTI (urinary tract infection) Code(s): N39.0 - URINARY TRACT INFECTION, SITE NOT SPECIFIED Qualifiers: Urinary tract infection type: acute cystitis Hematuria presence: without hematuria Qualified Code(s): N30.00 - Acute cystitis without hematuria; N30.00 - Acute cystitis without hematuria Visit type - Emergency Visit Emergency Visit: No - New Patient This patient is new to me today: Yes Date on this admission: 05/23/17 - Critical Care Critical Care patient: No
[2017-05-23] MEDS ORDERED: ROSUVASTATIN CA 10 MG TABLET (FP) ONE (20:06)
[2017-05-23] MEDS: ROSUVASTATIN CA 20 MG TABLET (FP) PO SCH (21:17)
[2017-05-23] MEDS: SENNOSIDES 8.6MG TABLET (FP) PO SCH (21:19)
--- NOTE | 2017-05-24 06:24 | PN ---
Physical Exam: SUBJECTIVE: Patient seen and examined at bedside. Patient is more awake/alert but does not respond to all questions. OBJECTIVE: Vital Signs Period Temp Pulse Resp BP Sys/Levine Pulse Ox Last 24 Hr 97 F-98.9 F 62-72 18-20 90-134/56-89 96 GENERAL: The patient is awake, alert and oriented only to person LUNGS: Breath sounds equal, clear to auscultation bilaterally, no wheezes, no crackles, no accessory muscle use. HEART: Regular rate and rhythm, S1, S2 without murmur, rub or gallop. EXTREMITIES: 2+ pulses, warm, well-perfused, no edema. NEUROLOGICAL: R sided hemiparalaysis with right upper extremity myoclonic jerk observed Laboratory Results - last 24 hr 05/23/17 06:00 Sodium 140 Potassium 3.6 Chloride 105 Carbon Dioxide 29 Anion Gap 6 L BUN 11 D Creatinine 0.8 Random Glucose 88 D Calcium 8.7 Phosphorus 3.7 Magnesium 1.7 L Active Medications Generic Name Dose Route Start Last Admin Trade Name Freq PRN Reason Stop Dose Admin Acetaminophen 650 mg 05/02/17 06:48 Tylenol - PO Q6H PRN FEVER OR PAIN Amino Acids 30 ml 05/18/17 08:15 05/23/17 18:39 Prosource No Carb Liquid Pkt PO Not Given BID@0800,1730 [facility] Aspirin 81 mg 05/14/17 10:00 05/23/17 11:46 Asa - PO 81 mg DAILY [facility]E Administration Clonazepam 0.25 mg 05/21/17 10:00 05/23/17 21:18 Klonopin - PO 0.25 mg BID [facility] Administration Enoxaparin Sodium 40 mg 05/18/17 10:00 05/23/17 12:02 Lovenox - SQ 40 mg DAILY [facility]E Administration Potassium Chloride 20 meq/ 1,010 mls @ 75 mls/hr 05/19/17 10:21 05/23/17 21:20 Dextrose/Sodium Chloride IV 75 mls/hr ASDIR CLEMENTE Administration Lacosamide 100 mg 05/19/17 22:00 05/23/17 21:19 Vimpat Liquid - PO 100 mg BID CLEMENTE Administration Levetiracetam 1,000 mg 05/19/17 12:00 05/23/17 21:18 Keppra Oral Solution - PO 1,000 mg BID [facility]MENTE Administration Metoprolol Tartrate 12.5 mg 05/22/17 11:34 05/23/17 21:19 Lopressor - PO 12.5 mg BID [facility]E Administration Rosuvastatin Calcium 40 mg 05/02/17 22:00 05/23/17 21:17 Crestor - PO 40 mg HS [facility] Administration Senna 1 tab 05/02/17 22:00 05/23/17 21:19 Senna - PO 1 tab HS [facility]E Administration Valproate Sodium 1,250 mg 05/19/17 13:00 05/23/17 21:18 Depakene - PO 1,250 mg BID [facility] Administration ASSESSMENT/PLAN: 66 year old female w/ hx of alcohol abuse presented to the ED after being found on the floor by her , hospitalized, on day 34 for L temporal/parietal CVA and seizures, acute inferior wall NC 1. Lethargy: her lethargy waxes and wanes, could be lethargic and unresponsive to commands and several hours later be oriented -today patient was more alert and oriented, but only to name -no signs of any acute cause or infection -continue to monitor 2. Dysphagia: patient's states that she is able to eat foods - nurse did not observe that same finding. -monitor calorie count today/tomorrow and plan for PEG if necessary -poor PO intake -continue low dose IVF for hydration 3. CVA: continues to have R hemiparesis and R upper extremity myoclonic jerks -continue aspirin 81mg -continue crestor 40mg 4. Seizures: patient continues to have myoclonic movements of her right upper extremity -patient is on klonopin, which has been effective, continue medication -continue keppra 1000 BID, depakene 1250 bid and Vimpat 100 bid 5. R shoulder cyst: ultrasound revealed a cystic mass with dimensions 2.3 x 2.2x 1 centimeters -patient received an I&D on 05/18 and pathology revealed normal skin michael -patient is not currently receiving antibiotics 6. Acute Inferior Wall NC: currently managed medically, no other intervention required -continue aspirin -continue crestor 7. Hypomagnesemia: previously resolved -order mag level in the Am 8. Hypokalemia: potassium 3.5 today -gave 1 dose of 50mEq K-dur -monitor K and Mg in the AM 9. UTI: resolved 10. FEN -patient is on KCl 20meq in dextrose/NS @75/hr -electrolytes stable, measure CMP in AM -continue dysphagia puree diet 11. Prophylaxis -cont lovenox 40mg QD 12. Dyspo: -f/u calorie count -[facility]pending [facility] placement Problem List - Problems (1) NICOLÁS (acute kidney injury) Code(s): N17.9 - ACUTE KIDNEY FAILURE, UNSPECIFIED (2) Abscess Code(s): L02.91 - CUTANEOUS ABSCESS, UNSPECIFIED (3) CVA (cerebral vascular accident) Code(s): I63.9 - CEREBRAL INFARCTION, UNSPECIFIED Qualifiers: CVA mechanism: unspecified Qualified Code(s): I63.9 - Cerebral infarction, unspecified; I63.9 - Cerebral infarction, unspecified; I63.9 - Cerebral infarction, unspecified; I63.9 - Cerebral infarction, unspecified (4) STEMI (ST elevation myocardial infarction) Code(s): I21.3 - ST ELEVATION (STEMI) MYOCARDIAL INFARCTION OF UNSP SITE Qualifiers: Involved coronary artery: LAD coronary artery Qualified Code(s): I21.02 - ST elevation (STEMI) myocardial infarction involving left anterior descending coronary artery; I21.02 - ST elevation (STEMI) myocardial infarction involving left anterior descending coronary artery; I21.02 - ST elevation (STEMI ) myocardial infarction involving left anterior descending coronary artery; I21.02 - ST elevation (STEMI) myocardial infarction involving left anterior descending coronary artery (5) Seizure Code(s): R56.9 - UNSPECIFIED CONVULSIONS (6) UTI (urinary tract infection) Code(s): N39.0 - URINARY TRACT INFECTION, SITE NOT SPECIFIED Qualifiers: Urinary tract infection type: acute cystitis Hematuria presence: without hematuria Qualified Code(s): N30.00 - Acute cystitis without hematuria; N30.00 - Acute cystitis without hematuria Visit type - Emergency Visit Emergency Visit: No - New Patient This patient is new to me today: No - Critical Care Critical Care patient: No
[2017-05-24 08:07] LABS: INR 1.11 (0.82-1.09); PROTHROMBIN TIME (PATIENT) 12.5 SEC (9.98-11.88)
[2017-05-24] MEDS: AMINO ACIDS/PROTEIN HYDROLYS 30 ML LIQUID.PKT PO SCH ×2 (08:28→18:18)
[2017-05-24 08:46] LABS: BASOPHIL 0.5 % (0-2.0); EOSINOPHIL 5.6 % (0-4.5); MCH 28.7 pg (25.7-33.7); MCHC 33.9 g/dl (32.0-36.0); MEAN CELL VOLUME 84.8 fl (80-96); MEAN PLT VOLUME 8.6 fl (7.5-11.1); NEUTROPHILS 63.8 % (42.8-82.8); PLATELET COUNT 73 K/MM3 (134-434); RDW 15.5 % (11.6-15.6)
[2017-05-24 09:00] LABS: ALBUMIN 2.2 g/dl (3.4-5.0); ANION GAP 10 (8-16); CALCIUM 8.9 mg/dL (8.5-10.1); CO2 26 mmol/L (21-32); GLUCOSE,RANDOM 83 mg/dL (74-106)
[2017-05-24 09:07] LABS: ALK PHOS 104 U/L (45-117); BILIRUBIN,TOTAL 0.3 mg/dL (0.2-1.0); CREATININE 0.8 mg/dL (0.55-1.02); SGOT/AST 25 U/L (15-37); SGPT/ALT 22 U/L (12-78); TOT PROT 6.8 g/dl (6.4-8.2)
--- NOTE | 2017-05-24 09:43 | PN ---
Progress Note (short form) - Note Progress Note: Neurology This is a female of unknown age and name with unknown medical history who presented BIBA after her called 911 because she had fallen on the floor and was not able to pick herself up after being on the floor for reportedly 24 hours. EMS states that the patient was laying on the carpeted floor on their arrival on scene at her home. The explained that he found her on the floor and she said she felt fine, so he did not call 911 until he saw her in the same place on the floor therafter. The patient was minimally responsive in the ED but able to state she was having left-sided weakness for the past three days which is what caused her to fall but thought it would pass and did not come to the hospital. She was out of TPA window. MRI completed and showed subacute infarcts L temporal/parietal, L thalamic and she does have right sided deficits. There was some facial twitching and patient put on Keppra, increased to 1000mg twice a day, Vimpat also started 100mg twice daily, Depakote also started with good control. Patient on ASA 81mg. CD without hemodynamically significant stenosis, Echo complete and LV function normal. Completed Abx for UTI. Some mild twitching, depakote had been increased to 1250mg twice daily. Has been arousable and more communicative. Regarding R shoulder abcess, this likely source of lethargy. Was incised and drained. No twitching which has been stable. Was being consider for PEG placement. Active Medications Acetaminophen (Tylenol -) 650 mg PO Q6H PRN PRN Reason: FEVER OR PAIN Amino Acids (Prosource No Carb Liquid Pkt) 30 ml PO BID@0800,1730 [facility] Last Admin: 05/24/17 08:28 Dose: 30 ml Aspirin (Asa -) 81 mg PO DAILY [facility] Last Admin: 05/23/17 11:46 Dose: 81 mg Clonazepam (Klonopin -) 0.25 mg PO BID [facility] Last Admin: 05/23/17 21:18 Dose: 0.25 mg Enoxaparin Sodium (Lovenox -) 40 mg SQ DAILY [facility] Last Admin: 05/23/17 12:02 Dose: 40 mg Potassium Chloride 20 meq/ (Dextrose/Sodium Chloride) 1,010 mls @ 75 mls/hr IV ASDIR [facility] Last Admin: 05/23/17 21:20 Dose: 75 mls/hr Lacosamide (Vimpat Liquid -) 100 mg PO BID [facility] Last Admin: 05/23/17 21:19 Dose: 100 mg Levetiracetam (Keppra Oral Solution -) 1,000 mg PO BID [facility] Last Admin: 05/23/17 21:18 Dose: 1,000 mg Metoprolol Tartrate (Lopressor -) 12.5 mg PO BID [facility] Last Admin: 05/23/17 21:19 Dose: 12.5 mg Rosuvastatin Calcium (Crestor -) 40 mg PO [facility] Last Admin: 05/23/17 21:17 Dose: 40 mg Senna (Senna -) 1 tab PO [facility] Last Admin: 05/23/17 21:19 Dose: 1 tab Valproate Sodium (Depakene -) 1,250 mg PO BID [facility] Last Admin: 05/23/17 21:18 Dose: 1,250 mg *Physical Exam Vital Signs Temperature 98 F 05/24/17 06:00 Pulse Rate 72 05/24/17 06:00 Respiratory Rate 20 05/24/17 06:00 Blood Pressure 134/89 05/24/17 06:00 O2 Sat by Pulse Oximetry (%) 96 05/23/17 21:00 - Physical Exam General Appearance: Yes: Disheveled, HEENT: positive: Hearing Grossly Normal, Neck: positive: Trachea midline, Supple. negative: Tender, Rigid Respiratory/Chest: positive: Lungs Clear, Normal Breath Sounds. negative: Respiratory Distress, Crackles, Rhonchi, Stridor, Wheezing Cardiovascular: positive: Regular Rhythm, Regular Rate. negative: Murmur Gastrointestinal/Abdominal: positive: Normal Bowel Sounds, Soft. negative: Tender, Organomegaly, Pulsatile Mass, Guarding Musculoskeletal: positive: Normal Inspection. negative: Decreased Range of Motion, Vertebral Tenderness Extremity: positive: Normal Capillary Refill, Normal Inspection, Normal Range of Motion. negative: Tender, Cyanosis Integumentary: positive: Normal Color, Dry, Warm. negative: Erythema, Rash, Bruising Neurologic: Limited exam, not participating in full confrontation, move LUE slight more than right, ?3/5 on R, ? 2/5 on L, tactile stimulation intact but limited on R, gait deferred CBCD WBC 9.0 K/mm3 (4.0-10.0) 05/24/17 08:35 RBC 4.16 M/mm3 (3.60-5.2) 05/24/17 08:35 Hgb 12.0 GM/dL (10.7-15.3) 05/24/17 08:35 Hct 35.3 % (32.4-45.2) 05/24/17 08:35 MCV 84.8 fl (80-96) 05/24/17 08:35 MCHC 33.9 g/dl (32.0-36.0) 05/24/17 08:35 RDW 15.5 % (11.6-15.6) 05/24/17 08:35 Plt Count 73 K/MM3 (134-434) L 05/24/17 08:35 MPV 8.6 fl (7.5-11.1) 05/24/17 08:35 CMP Sodium 137 mmol/L (136-145) 05/24/17 07:25 Potassium 3.5 mmol/L (3.5-5.1) 05/24/17 07:25 Chloride 101 mmol/L (98-107) 05/24/17 07:25 Carbon Dioxide 26 mmol/L (21-32) 05/24/17 07:25 Anion Gap 10 (8-16) 05/24/17 07:25 BUN 9 mg/dL (7-18) 05/24/17 07:25 Creatinine 0.8 mg/dL (0.55-1.02) 05/24/17 07:25 Creat Clearance w eGFR > 60 (>60) 05/24/17 07:25 Calcium 8.9 mg/dL (8.5-10.1) 05/24/17 07:25 Total Bilirubin 0.3 mg/dL (0.2-1.0) 05/24/17 07:25 AST 25 U/L (15-37) D 05/24/17 07:25 ALT 22 U/L (12-78) D 05/24/17 07:25 Alkaline Phosphatase 104 U/L (45-117) D 05/24/17 07:25 Total Protein 6.8 g/dl (6.4-8.2) 05/24/17 07:25 Albumin 2.2 g/dl (3.4-5.0) L 05/24/17 07:25 - RADIOLOGY MRI brain reviewed CT head repeated and reviewed CD, echo reviewed Medical Decision Making female of unknown age and name with unknown medical history who presented BIBA after her called 911 because she had fallen on the floor and was not able to pick herself up after being on the floor for reportedly 24 hours. EMS states that the patient was laying on the carpeted floor on their arrival on scene at her home. The explained that he found her on the floor and she said she felt fine, so he did not call 911 until he saw her in the same place on the floor therafter. The patient was minimally responsive in the ED but able to state she was having left-sided weakness for the past three days which is what caused her to fall but thought it would pass and did not come to the hospital. There was a question of generalized seizure and positive troponins. CT head completed and did not show acute changes. MRI demonstrated subacute infarcts L temporal/parietal, L thalamic CVA. -Patient on Keppra for seizures, getting 1000mg twice daily, -Vimpat 100mg twice daily and Depakote increased to 1250mg twice daily can be continued -Klonipin at 0.25mg has been helpful, sedation issue currently, held -Continue ASA -repeat CT head without acute changes -Shoulder wound treated -BP control, goal < 160/90 for now, < 140/90 as outpatient -PT/OT as tolerated -Mental status has improved -Being considered for PEG placement -DVT ppx
[2017-05-24] MEDS: levETIRAcetam 500 MG/5 ML ORAL SOLUTION (UNIT-DOSE CUPS) PO SCH ×2 (09:48→12:33)
[2017-05-24] MEDS: ENOXAPARIN NA (PORCINE) 40 MG/0.4 ML DISP.SYRIN SQ SCH (09:48)
[2017-05-24] MEDS: clonazePAM 0.5 MG TABLET PO SCH ×2 (09:49→22:31)
[2017-05-24] MEDS: LACOSAMIDE 10 MG/1 ML PO SCH ×2 (09:50→22:28)
[2017-05-24] MEDS: METOPROLOL TARTRATE 25 MG TABLET (FP) PO SCH ×2 (09:50→22:31)
[2017-05-24] MEDS: VALPROATE SODIUM 250 MG/5 ML UNIT DOSE CUP PO SCH ×3 (09:51→22:32)
[2017-05-24] MEDS: ASPIRIN 81 MG CHEWABLE TABLETS PO SCH (09:51)
[2017-05-24] MEDS: DEXTROSE 5%-0.45% SALINE 1,000 ML with POTASSIUM CHLORIDE 20 MEQ IV SCH (09:52)
[2017-05-24] MEDS ORDERED: POTASSIUM CHLORIDE TABS 20 MEQ TABLET.ER (FP) PO ONE (13:18)
--- NOTE | 2017-05-24 13:24 | PN ---
Progress Note (short form) - Note Progress Note: No significant in overall condition. No acute events documented overnight. Intake & Output 05/21/17 05/22/17 05/23/17 05/24/17 23:59 23:59 23:59 23:59 Intake Total 2805 900 2020 1100 Balance 2805 900 2020 1100 Last Vital Signs Temp Pulse Resp BP Pulse Ox 98.0 F 70 20 110/70 96 05/24/17 10:59 05/24/17 10:59 05/24/17 10:59 05/24/17 10:59 05/23/17 21:00 Active Medications Acetaminophen (Tylenol -) 650 mg PO Q6H PRN PRN Reason: FEVER OR PAIN Amino Acids (Prosource No Carb Liquid Pkt) 30 ml PO BID@0800,1730 [facility] Last Admin: 05/24/17 08:28 Dose: 30 ml Aspirin (Asa -) 81 mg PO DAILY [facility] Last Admin: 05/24/17 09:51 Dose: 81 mg Clonazepam (Klonopin -) 0.25 mg PO BID [facility] Last Admin: 05/24/17 09:49 Dose: 0.25 mg Enoxaparin Sodium (Lovenox -) 40 mg SQ DAILY [facility] Last Admin: 05/24/17 09:48 Dose: 40 mg Potassium Chloride 20 meq/ (Dextrose/Sodium Chloride) 1,010 mls @ 75 mls/hr IV ASDIR [facility] Last Admin: 05/24/17 09:52 Dose: 75 mls/hr Lacosamide (Vimpat Liquid -) 100 mg PO BID [facility] Last Admin: 05/24/17 09:50 Dose: 100 mg Levetiracetam (Keppra Oral Solution -) 1,000 mg PO BID [facility] Last Admin: 05/24/17 12:33 Dose: Not Given Metoprolol Tartrate (Lopressor -) 12.5 mg PO BID [facility] Last Admin: 05/24/17 09:50 Dose: 12.5 mg Potassium Chloride (K-Dur -) 40 meq PO ONCE ONE Stop: 05/24/17 13:19 Rosuvastatin Calcium (Crestor -) 40 mg PO HS [facility] Last Admin: 05/23/17 21:17 Dose: 40 mg Senna (Senna -) 1 tab PO HS [facility] Last Admin: 05/23/17 21:19 Dose: 1 tab Valproate Sodium (Depakene -) 1,250 mg PO BID [facility] Last Admin: 05/24/17 09:51 Dose: 1,250 mg Constitutional: NAD Eyes: Yes: (-) Pallor HENT: Yes: Atraumatic, Normocephalic Neck: Yes: Supple, Trachea Midline Cardiovascular: Yes: Regular Rate and Rhythm, S1, S2 Respiratory: Yes: CTA Bilaterally Gastrointestinal: Yes: WNL, Soft, Hyperactive Bowel Sounds Renal/: Yes: Handy Present Extremities: Yes: WNL Neurological: Yes: Awake, facial Droop Labs: Laboratory Results - last 24 hr 05/24/17 05/24/17 05/24/17 07:25 07:25 07:25 WBC Cancelled Corrected WBC (auto) Cancelled RBC Cancelled Hgb Cancelled Hct Cancelled MCV Cancelled MCH Cancelled MCHC Cancelled RDW Cancelled Plt Count Cancelled MPV Cancelled Neutrophils % Cancelled Lymphocytes % Cancelled Monocytes % Cancelled Eosinophils % Cancelled Basophils % Cancelled Platelet Estimate Cancelled Platelet Comment Cancelled RBC Morphology Cancelled PT with INR 12.50 H INR 1.11 Sodium 137 Potassium 3.5 Chloride 101 Carbon Dioxide 26 Anion Gap 10 BUN 9 Creatinine 0.8 Creat Clearance w eGFR > 60 Random Glucose 83 Calcium 8.9 Total Bilirubin 0.3 AST 25 D ALT 22 D Alkaline Phosphatase 104 D Total Protein 6.8 Albumin 2.2 L 05/24/17 08:35 WBC 9.0 Corrected WBC (auto) RBC 4.16 Hgb 12.0 Hct 35.3 MCV 84.8 MCH 28.7 MCHC 33.9 RDW 15.5 Plt Count 73 L MPV 8.6 Neutrophils % 63.8 Lymphocytes % 17.1 D Monocytes % 13.0 H Eosinophils % 5.6 H D Basophils % 0.5 Platelet Estimate Platelet Comment RBC Morphology PT with INR INR Sodium Potassium Chloride Carbon Dioxide Anion Gap BUN Creatinine Creat Clearance w eGFR Random Glucose Calcium Total Bilirubin AST ALT Alkaline Phosphatase Total Protein Albumin Problem List - Problems (1) NICOLÁS (acute kidney injury) Code(s): N17.9 - ACUTE KIDNEY FAILURE, UNSPECIFIED (2) CVA (cerebral vascular accident) Code(s): I63.9 - CEREBRAL INFARCTION, UNSPECIFIED Qualifiers: CVA mechanism: unspecified Qualified Code(s): I63.9 - Cerebral infarction, unspecified (3) Lactic acidosis Code(s): E87.2 - ACIDOSIS (4) Seizure Code(s): R56.9 - UNSPECIFIED CONVULSIONS Assessment/Plan For possible PEG AEDs PT BP meds as ordered Beta iron No Pulmonary contraindication for D/C planning Dr Early
[2017-05-24] MEDS ORDERED: DEXTROSE 5%-0.45% SALINE 1,000 ML with POTASSIUM CHLORIDE 40 MEQ IVPB ONE (15:00)
--- NOTE | 2017-05-24 15:51 | PN ---
Teaching Attending Note Name of Resident: Brian Paz ATTENDING PHYSICIAN STATEMENT I saw and evaluated the patient. I reviewed the resident's note and discussed the case with the resident. I agree with the resident's findings and plan as documented. SUBJECTIVE:asymptomatic. denies Cp, SOB, fever, chills, N/V/C/D OBJECTIVE: Last Vital Signs Temp Pulse Resp BP Pulse Ox 98.0 F 73 20 113/78 96 05/24/17 14:00 05/24/17 14:00 05/24/17 14:00 05/24/17 14:00 05/23/17 21:00 General alert, A&O x1 (self only) CV S1 S2 RRR no murmur/rub/gallop Lungs CTA B/L no wheezing/rlaes/rhonchi Abdomen soft NT/ND Extremities no myotonic twitching noted ASSESSMENT AND PLAN: 66 yo F with PMH of alcohol abuse who presented to the ER after she was found on the floor by her . 1. Acute lethargy- appears to have wax/waning. this may be new mental status. no signs of infection (afebrile no luekocytosis) back abscess s/p I&D 05/18. was stated to be sebaceuous cyst. now WCx showing normal skin michael. 2. Dysphagia- component of poor mental status. PEG on hold for calorie count. believe this pt will likely also have good and bad days of consuming enough calories but overall will not be enough to sustain life. would recommend to go forward with the peg at this time as her mental status today is poor. will inform GI of plan. 3. 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 PT and speech pathology 4. Seizures, myoclonic movements of right side- some twitching RUE, klonopin with holding parameters. no more twitching noted. cont anti-eleptics 5. R shoulder swelling- u/s showing complex cyst 2.3x2.2x1cm. s/p I&D 05/18. normal skin michael. off abx 6. Acute anemia- no active signs of bleeding. HGB stable. txn for Hgb < 7. 7. Acute inferior wall STEMI- medical management. on asa/toprol/crestor 8. Hypokalemia- resolved 9. hypomagnesemia- resolved 10. Alcohol abuse 11. E. coli UTI- Completed Rocephin 12. DVT ppx- hep sq 13. ideally will need PEG prior to d/c to [facility]. awaiting to hear if there is insurance auth to move forward with placement
[2017-05-24] MEDS ORDERED: ROSUVASTATIN CA 10 MG TABLET (FP) ONE (20:31)
[2017-05-24] MEDS ORDERED: PT OWN MED DRAWER 7, Y5N ONE (20:32)
[2017-05-24] MEDS ORDERED: levETIRAcetam 500 MG/5 ML INJECTION VIAL IVPB SCH (22:00)
[2017-05-24] MEDS: levETIRAcetam 500 MG TABLET (FP) PO SCH (22:31)
[2017-05-24] MEDS: ROSUVASTATIN CA 20 MG TABLET (FP) PO SCH (22:31)
[2017-05-24] MEDS: SENNOSIDES 8.6MG TABLET (FP) PO SCH (22:31)
[2017-05-24] MEDS: VALPROATE SODIUM 500 MG/5 ML VIAL IVPB SCH (22:32)
[2017-05-25 08:49] LABS: BASOPHIL 1.9 % (0-2.0); EOSINOPHIL 3.6 % (0-4.5); MCH 28.7 pg (25.7-33.7); MCHC 33.4 g/dl (32.0-36.0); MEAN CELL VOLUME 86.1 fl (80-96); MEAN PLT VOLUME 8.2 fl (7.5-11.1); NEUTROPHILS 57.6 % (42.8-82.8); PLATELET COUNT 75 K/MM3 (134-434); RDW 15.4 % (11.6-15.6); WHITE BLOOD COUNT 7.5 K/mm3 (4.0-10.0)
[2017-05-25] MEDS: AMINO ACIDS/PROTEIN HYDROLYS 30 ML LIQUID.PKT PO SCH ×2 (09:03→17:39)
[2017-05-25] MEDS: ENOXAPARIN NA (PORCINE) 40 MG/0.4 ML DISP.SYRIN SQ SCH (09:03)
[2017-05-25] MEDS: METOPROLOL TARTRATE 25 MG TABLET (FP) PO SCH ×2 (09:03→22:20)
[2017-05-25] MEDS: levETIRAcetam 500 MG TABLET (FP) PO SCH ×2 (09:04→22:19)
[2017-05-25] MEDS: ASPIRIN 81 MG CHEWABLE TABLETS PO SCH (09:04)
[2017-05-25] MEDS: clonazePAM 0.5 MG TABLET PO SCH ×2 (09:08→22:20)
[2017-05-25 09:23] LABS: ALBUMIN 2.3 g/dl (3.4-5.0); ANION GAP 10 (8-16); CO2 26 mmol/L (21-32); GLUCOSE,RANDOM 98 mg/dL (74-106); MAGNESIUM 1.9 mg/dL (1.8-2.4)
[2017-05-25 09:26] LABS: ALK PHOS 94 U/L (45-117); BILIRUBIN,TOTAL 0.3 mg/dL (0.2-1.0); CREATININE 0.8 mg/dL (0.55-1.02); SGOT/AST 20 U/L (15-37); SGPT/ALT 16 U/L (12-78); TOT PROT 6.9 g/dl (6.4-8.2)
--- NOTE | 2017-05-25 10:10 | PN ---
Progress Note (short form) - Note Progress Note: Neurology This is a female of unknown age and name with unknown medical history who presented BIBA after her called 911 because she had fallen on the floor and was not able to pick herself up after being on the floor for reportedly 24 hours. EMS states that the patient was laying on the carpeted floor on their arrival on scene at her home. The explained that he found her on the floor and she said she felt fine, so he did not call 911 until he saw her in the same place on the floor therafter. The patient was minimally responsive in the ED but able to state she was having left-sided weakness for the past three days which is what caused her to fall but thought it would pass and did not come to the hospital. She was out of TPA window. MRI completed and showed subacute infarcts L temporal/parietal, L thalamic and she does have right sided deficits. There was some facial twitching and patient put on Keppra, increased to 1000mg twice a day, Vimpat also started 100mg twice daily, Depakote also started with good control. Patient on ASA 81mg. CD without hemodynamically significant stenosis, Echo complete and LV function normal. Completed Abx for UTI. Some mild twitching, depakote had been increased to 1250mg twice daily. Has been arousable and more communicative. Regarding R shoulder abcess, this likely source of lethargy. Was incised and drained. No twitching which has been stable. Was being consider for PEG placement and spoke to PCP today, plan is for PEG tomorrow. Active Medications Acetaminophen (Tylenol -) 650 mg PO Q6H PRN PRN Reason: FEVER OR PAIN Amino Acids (Prosource No Carb Liquid Pkt) 30 ml PO BID@0800,1730 [facility] Last Admin: 05/25/17 09:03 Dose: 30 ml Aspirin (Asa -) 81 mg PO DAILY [facility] Last Admin: 05/25/17 09:04 Dose: 81 mg Clonazepam (Klonopin -) 0.25 mg PO BID [facility] Last Admin: 05/25/17 09:08 Dose: 0.25 mg Enoxaparin Sodium (Lovenox -) 40 mg SQ DAILY [facility] Last Admin: 05/25/17 09:03 Dose: 40 mg Lacosamide (Vimpat Liquid -) 100 mg PO BID [facility] Last Admin: 05/24/17 22:28 Dose: 100 mg Levetiracetam (Keppra -) 1,000 mg PO BID [facility] Last Admin: 05/25/17 09:04 Dose: 1,000 mg Metoprolol Tartrate (Lopressor -) 12.5 mg PO BID [facility] Last Admin: 05/25/17 09:03 Dose: 12.5 mg Rosuvastatin Calcium (Crestor -) 40 mg PO [facility] Last Admin: 05/24/17 22:31 Dose: 40 mg Senna (Senna -) 1 tab PO HS [facility] Last Admin: 05/24/17 22:31 Dose: 1 tab Valproate Sodium (Depacon Injection -) 1,250 mg IVPB BID [facility] Last Admin: 05/24/17 22:32 Dose: Not Given *Physical Exam Vital Signs Temperature 98.4 F 05/25/17 06:00 Pulse Rate 66 05/25/17 06:00 Respiratory Rate 20 05/25/17 06:00 Blood Pressure 109/71 05/25/17 06:00 O2 Sat by Pulse Oximetry (%) 96 05/23/17 21:00 - Physical Exam General Appearance: Yes: Disheveled, HEENT: positive: Hearing Grossly Normal, Neck: positive: Trachea midline, Supple. negative: Tender, Rigid Respiratory/Chest: positive: Lungs Clear, Normal Breath Sounds. negative: Respiratory Distress, Crackles, Rhonchi, Stridor, Wheezing Cardiovascular: positive: Regular Rhythm, Regular Rate. negative: Murmur Gastrointestinal/Abdominal: positive: Normal Bowel Sounds, Soft. negative: Tender, Organomegaly, Pulsatile Mass, Guarding Musculoskeletal: positive: Normal Inspection. negative: Decreased Range of Motion, Vertebral Tenderness Extremity: positive: Normal Capillary Refill, Normal Inspection, Normal Range of Motion. negative: Tender, Cyanosis Integumentary: positive: Normal Color, Dry, Warm. negative: Erythema, Rash, Bruising Neurologic: Limited exam, not participating in full confrontation, move LUE slight more than right, ?3/5 on R, ? 2/5 on L, tactile stimulation intact but limited on R, gait deferred CBCD WBC 7.5 K/mm3 (4.0-10.0) 05/25/17 08:35 RBC 4.09 M/mm3 (3.60-5.2) 05/25/17 08:35 Hgb 11.8 GM/dL (10.7-15.3) 05/25/17 08:35 Hct 35.2 % (32.4-45.2) 05/25/17 08:35 MCV 86.1 fl (80-96) 05/25/17 08:35 MCHC 33.4 g/dl (32.0-36.0) 05/25/17 08:35 RDW 15.4 % (11.6-15.6) 05/25/17 08:35 Plt Count 75 K/MM3 (134-434) L 05/25/17 08:35 MPV 8.2 fl (7.5-11.1) 05/25/17 08:35 CMP Sodium 140 mmol/L (136-145) 05/25/17 08:35 Potassium 3.9 mmol/L (3.5-5.1) 05/25/17 08:35 Chloride 104 mmol/L (98-107) 05/25/17 08:35 Carbon Dioxide 26 mmol/L (21-32) 05/25/17 08:35 Anion Gap 10 (8-16) 05/25/17 08:35 BUN 11 mg/dL (7-18) D 05/25/17 08:35 Creatinine 0.8 mg/dL (0.55-1.02) 05/25/17 08:35 Creat Clearance w eGFR > 60 (>60) 05/25/17 08:35 Calcium 9.0 mg/dL (8.5-10.1) 05/25/17 08:35 Total Bilirubin 0.3 mg/dL (0.2-1.0) 05/25/17 08:35 AST 20 U/L (15-37) 05/25/17 08:35 ALT 16 U/L (12-78) D 05/25/17 08:35 Alkaline Phosphatase 94 U/L (45-117) 05/25/17 08:35 Total Protein 6.9 g/dl (6.4-8.2) 05/25/17 08:35 Albumin 2.3 g/dl (3.4-5.0) L 05/25/17 08:35 - RADIOLOGY MRI brain reviewed CT head repeated and reviewed CD, echo reviewed Medical Decision Making female of unknown age and name with unknown medical history who presented BIBA after her called 911 because she had fallen on the floor and was not able to pick herself up after being on the floor for reportedly 24 hours. EMS states that the patient was laying on the carpeted floor on their arrival on scene at her home. The explained that he found her on the floor and she said she felt fine, so he did not call 911 until he saw her in the same place on the floor therafter. The patient was minimally responsive in the ED but able to state she was having left-sided weakness for the past three days which is what caused her to fall but thought it would pass and did not come to the hospital. There was a question of generalized seizure and positive troponins. CT head completed and did not show acute changes. MRI demonstrated subacute infarcts L temporal/parietal, L thalamic CVA. -Patient on Keppra for seizures, getting 1000mg twice daily, -Vimpat 100mg twice daily and Depakote increased to 1250mg twice daily can be continued -Klonipin at 0.25mg has been helpful, sedation issue currently, held -Continue ASA -repeat CT head without acute changes -Shoulder wound treated -BP control, goal < 160/90 for now, < 140/90 as outpatient -PT/OT as tolerated -Mental status has improved -Being considered for PEG placement for tomorrow -SNF thereafter -DVT ppx
--- NOTE | 2017-05-25 10:33 | PN ---
Progress Note, Physician History of Present Illness: Chart reviewed. More awake and alert this am. No events, comfortable. Consensus that pt will not be able to maintain adequate po intake in settings of fluctuation metal status. Will discuss with PEG placement before transfer. - Current Medication List Current Medications: Active Medications Acetaminophen (Tylenol -) 650 mg PO Q6H PRN PRN Reason: FEVER OR PAIN Amino Acids (Prosource No Carb Liquid Pkt) 30 ml PO BID@0800,1730 [facility] Last Admin: 05/25/17 09:03 Dose: 30 ml Aspirin (Asa -) 81 mg PO DAILY [facility] Last Admin: 05/25/17 09:04 Dose: 81 mg Clonazepam (Klonopin -) 0.25 mg PO BID [facility] Last Admin: 05/25/17 09:08 Dose: 0.25 mg Enoxaparin Sodium (Lovenox -) 40 mg SQ DAILY [facility] Last Admin: 05/25/17 09:03 Dose: 40 mg Lacosamide (Vimpat Liquid -) 100 mg PO BID [facility] Last Admin: 05/24/17 22:28 Dose: 100 mg Levetiracetam (Keppra -) 1,000 mg PO BID [facility] Last Admin: 05/25/17 09:04 Dose: 1,000 mg Metoprolol Tartrate (Lopressor -) 12.5 mg PO BID [facility] Last Admin: 05/25/17 09:03 Dose: 12.5 mg Rosuvastatin Calcium (Crestor -) 40 mg PO HS [facility] Last Admin: 05/24/17 22:31 Dose: 40 mg Senna (Senna -) 1 tab PO HS [facility] Last Admin: 05/24/17 22:31 Dose: 1 tab Valproate Sodium (Depacon Injection -) 1,250 mg IVPB BID [facility] Last Admin: 05/24/17 22:32 Dose: Not Given - Objective Vital Signs: Vital Signs Temperature 98.4 F 05/25/17 06:00 Pulse Rate 66 05/25/17 06:00 Respiratory Rate 20 05/25/17 06:00 Blood Pressure 109/71 05/25/17 06:00 O2 Sat by Pulse Oximetry (%) 96 05/23/17 21:00 Constitutional: Yes: No Distress, Calm Eyes: Yes: Conjunctiva Clear HENT: Yes: Atraumatic Neck: Yes: Supple Cardiovascular: Yes: Regular Rate and Rhythm Respiratory: Yes: Regular Gastrointestinal: Yes: Normal Bowel Sounds, Soft. No: Distention, Pulsatile Mass, Rectal Bleeding, Tenderness, Vomiting Neurological: Yes: Alert Labs: CBC, BMP 05/25/17 08:35 05/25/17 08:35 INR, PTT INR 1.11 (0.82-1.09) 05/24/17 07:25 CBCD WBC 7.5 K/mm3 (4.0-10.0) 05/25/17 08:35 RBC 4.09 M/mm3 (3.60-5.2) 05/25/17 08:35 Hgb 11.8 GM/dL (10.7-15.3) 05/25/17 08:35 Hct 35.2 % (32.4-45.2) 05/25/17 08:35 MCV 86.1 fl (80-96) 05/25/17 08:35 MCHC 33.4 g/dl (32.0-36.0) 05/25/17 08:35 RDW 15.4 % (11.6-15.6) 05/25/17 08:35 Plt Count 75 K/MM3 (134-434) L 05/25/17 08:35 MPV 8.2 fl (7.5-11.1) 05/25/17 08:35 CMP Sodium 140 mmol/L (136-145) 05/25/17 08:35 Potassium 3.9 mmol/L (3.5-5.1) 05/25/17 08:35 Chloride 104 mmol/L (98-107) 05/25/17 08:35 Carbon Dioxide 26 mmol/L (21-32) 05/25/17 08:35 Anion Gap 10 (8-16) 05/25/17 08:35 BUN 11 mg/dL (7-18) D 05/25/17 08:35 Creatinine 0.8 mg/dL (0.55-1.02) 05/25/17 08:35 Creat Clearance w eGFR > 60 (>60) 05/25/17 08:35 Calcium 9.0 mg/dL (8.5-10.1) 05/25/17 08:35 Total Bilirubin 0.3 mg/dL (0.2-1.0) 05/25/17 08:35 AST 20 U/L (15-37) 05/25/17 08:35 ALT 16 U/L (12-78) D 05/25/17 08:35 Alkaline Phosphatase 94 U/L (45-117) 05/25/17 08:35 Total Protein 6.9 g/dl (6.4-8.2) 05/25/17 08:35 Albumin 2.3 g/dl (3.4-5.0) L 05/25/17 08:35 Problem List - Problems (1) Failure to thrive in adult Code(s): R62.7 - ADULT FAILURE TO THRIVE (2) CVA (cerebral vascular accident) Code(s): I63.9 - CEREBRAL INFARCTION, UNSPECIFIED Qualifiers: CVA mechanism: unspecified Qualified Code(s): I63.9 - Cerebral infarction, unspecified; I63.9 - Cerebral infarction, unspecified; I63.9 - Cerebral infarction, unspecified; I63.9 - Cerebral infarction, unspecified (3) Seizure Code(s): R56.9 - UNSPECIFIED CONVULSIONS (4) STEMI (ST elevation myocardial infarction) Code(s): I21.3 - ST ELEVATION (STEMI) MYOCARDIAL INFARCTION OF UNSP SITE Qualifiers: Involved coronary artery: LAD coronary artery Qualified Code(s): I21.02 - ST elevation (STEMI) myocardial infarction involving left anterior descending coronary artery; I21.02 - ST elevation (STEMI) myocardial infarction involving left anterior descending coronary artery; I21.02 - ST elevation (STEMI ) myocardial infarction involving left anterior descending coronary artery; I21.02 - ST elevation (STEMI) myocardial infarction involving left anterior descending coronary artery Assessment/Plan Plan PEG placement on . To readress this with pts today. Cardiology clearance Continue Aspirin, if necessary. Aspiration precautions maintain IV hydration and assist with PO as tolerated Consent in chart NPO after midnight
[2017-05-25] MEDS: LACOSAMIDE 10 MG/1 ML PO SCH ×2 (10:43→22:20)
[2017-05-25] MEDS: VALPROATE SODIUM 500 MG/5 ML VIAL IVPB SCH ×2 (10:53→22:34)
--- NOTE | 2017-05-25 11:35 | PN ---
Progress Note, [facility] - Note Progress Note: Selected Entries 05/23/17 05/23/17 05/24/17 10:00 15:48 06:00 Breakfast Lunch 0 0 Supper Temperature 98 F 05/24/17 05/24/17 05/24/17 09:00 10:59 12:17 Breakfast 25% Lunch 25% Supper Temperature 98.1 F 98.0 F 05/24/17 05/24/17 05/24/17 14:00 16:30 16:55 Breakfast Lunch Supper 25% Temperature 98.0 F 98.3 F 05/25/17 06:00 Breakfast Lunch Supper Temperature 98.4 F Case discussed with GI/nursing.PO acceptance is intermittent, with pt holding food in her mouth secondary to Apraxia. Pending PEG insertion. Suggest PEG be used to supplement PO intake, with goal for possible weaning from PEG feedings if pt improves.
[2017-05-25] MEDS ORDERED: PT OWN MED DRAWER 7, Y5N ONE (12:05)
--- NOTE | 2017-05-25 15:19 | PN ---
Physical Exam: SUBJECTIVE: Patient seen and examined at bedside. Patient is in no acute distress, and is minimally able to answer questions or respond to commands. She is in a lethargic state. OBJECTIVE: Vital Signs Period Temp Pulse Resp BP Sys/Levine Pulse Ox Last 24 Hr 98.3 F-98.5 F 66-71 20-20 92-109/64-71 GENERAL: The patient is awake, alert and oriented only to person LUNGS: Breath sounds equal, clear to auscultation bilaterally, no wheezes, no crackles, no accessory muscle use. HEART: Regular rate and rhythm, S1, S2 without murmur, rub or gallop. EXTREMITIES: 2+ pulses, warm, well-perfused, no edema. NEUROLOGICAL: R sided hemiparalaysis with right upper extremity myoclonic jerk observed CBC, BMP 05/25/17 08:35 05/25/17 08:35 Active Medications Generic Name Dose Route Start Last Admin Trade Name Freq PRN Reason Stop Dose Admin Acetaminophen 650 mg 05/02/17 06:48 Tylenol - PO Q6H PRN FEVER OR PAIN Amino Acids 30 ml 05/18/17 08:15 05/25/17 09:03 Prosource No Carb Liquid Pkt PO 30 ml BID@0800,1730 [facility] Administration Aspirin 81 mg 05/14/17 10:00 05/25/17 09:04 Asa - PO 81 mg DAILY [facility] Administration Clonazepam 0.25 mg 05/21/17 10:00 05/25/17 09:08 Klonopin - PO 0.25 mg BID [facility] Administration Enoxaparin Sodium 40 mg 05/18/17 10:00 05/25/17 09:03 Lovenox - SQ 40 mg DAILY [facility] Administration Lacosamide 100 mg 05/19/17 22:00 05/25/17 10:43 Vimpat Liquid - PO 100 mg BID [facility] Administration Levetiracetam 1,000 mg 05/24/17 22:00 05/25/17 09:04 Keppra - PO 1,000 mg BID [facility] Administration Metoprolol Tartrate 12.5 mg 05/22/17 11:34 05/25/17 09:03 Lopressor - PO 12.5 mg BID [facility] Administration Rosuvastatin Calcium 40 mg 05/02/17 22:00 05/24/17 22:31 Crestor - PO 40 mg HS [facility] Administration Senna 1 tab 05/02/17 22:00 05/24/17 22:31 Senna - PO 1 tab HS [facility] Administration Valproate Sodium 1,250 mg 05/24/17 22:00 05/25/17 10:53 Depacon Injection - IVPB 1,250 mg BID [facility] Administration ASSESSMENT/PLAN: 66 year old female w/ hx of alcohol abuse presented to the ED after being found on the floor by her , hospitalized, on day 34 for L temporal/parietal CVA and seizures, acute inferior wall AL 1. Dysphagia: patient's states that she is able to eat foods - nurse did not observe that same finding. -calorie count proved insufficient intake. -poor PO intake -continue low dose IVF for hydration -GI on board and planned for PEG tomorrow -consent on file -NPO after midnight 2. Lethargy: her lethargy waxes and wanes, could be lethargic and unresponsive to commands and several hours later be oriented -today patient wasalert and oriented, but only to name -no signs of any acute cause or infection -continue to monitor 3. CVA: continues to have R hemiparesis and R upper extremity myoclonic jerks -continue aspirin 81mg -continue crestor 40mg 4. Seizures: patient continues to have myoclonic movements of her right upper extremity -patient is on klonopin, which has been effective, continue medication -continue keppra 1000 BID, depakene 1250 bid and Vimpat 100 bid 5. R shoulder cyst: ultrasound revealed a cystic mass with dimensions 2.3 x 2.2x 1 centimeters -patient received an I&D on 05/18 and pathology revealed normal skin michael -patient is not currently receiving antibiotics 6. Acute Inferior Wall AL: currently managed medically, no other intervention required -continue aspirin -continue crestor 7. Hypomagnesemia: previously resolved 8. Hypokalemia: resolved -monitor K and Mg in the AM 9. UTI: resolved 10. FEN -patient is on KCl 20meq in dextrose/NS @75/hr -electrolytes stable, measure CMP in AM -continue dysphagia puree diet 11. Prophylaxis -cont lovenox 40mg QD 12. Dyspo: -need to d/c to assisted facility -pending PEG placement Problem List - Problems (1) NICOLÁS (acute kidney injury) Code(s): N17.9 - ACUTE KIDNEY FAILURE, UNSPECIFIED (2) Abscess Code(s): L02.91 - CUTANEOUS ABSCESS, UNSPECIFIED (3) CVA (cerebral vascular accident) Code(s): I63.9 - CEREBRAL INFARCTION, UNSPECIFIED Qualifiers: Qualified Code(s): I63.9 - Cerebral infarction, unspecified; I63.9 - Cerebral infarction, unspecified; I63.9 - Cerebral infarction, unspecified; I63.9 - Cerebral infarction, unspecified (4) STEMI (ST elevation myocardial infarction) Code(s): I21.3 - ST ELEVATION (STEMI) MYOCARDIAL INFARCTION OF UNSP SITE Qualifiers: Qualified Code(s): I21.02 - ST elevation (STEMI) myocardial infarction involving left anterior descending coronary artery; I21.02 - ST elevation (STEMI ) myocardial infarction involving left anterior descending coronary artery; I21.02 - ST elevation (STEMI) myocardial infarction involving left anterior descending coronary artery; I21.02 - ST elevation (STEMI) myocardial infarction involving left anterior descending coronary artery (5) Seizure Code(s): R56.9 - UNSPECIFIED CONVULSIONS (6) UTI (urinary tract infection) Code(s): N39.0 - URINARY TRACT INFECTION, SITE NOT SPECIFIED Qualifiers: Qualified Code(s): N30.00 - Acute cystitis without hematuria; N30.00 - Acute cystitis without hematuria Visit type - Emergency Visit Emergency Visit: No - New Patient This patient is new to me today: No - Critical Care Critical Care patient: No
--- NOTE | 2017-05-25 17:33 | PN ---
Teaching Attending Note Name of Resident: Brian Paz ATTENDING PHYSICIAN STATEMENT I saw and evaluated the patient. I reviewed the resident's note and discussed the case with the resident. I agree with the resident's findings and plan as documented. SUBJECTIVE: Patient seen and examined. no complaints. oriented to self only currently. ROS limited by her mental status. OBJECTIVE: Vital Signs Period Temp Pulse Resp BP Sys/Levine Pulse Ox Last 24 Hr 98.1 F-98.5 F 65-70 18-20 92-109/64-71 100 CVS- S1S2 regular Chest - poor effort but positive air entry, no rales or wheezing Abdomen - soft, NT, ND, positive bowel sounds Extr - no edema Neuro AA, oriented to self, RIght hemiparesis Current Medications Acetaminophen (Tylenol -) 650 mg PO Q6H PRN PRN Reason: FEVER OR PAIN Amino Acids (Prosource No Carb Liquid Pkt) 30 ml PO BID@0800,1730 [facility] Last Admin: 05/25/17 09:03 Dose: 30 ml Aspirin (Asa -) 81 mg PO DAILY [facility] Last Admin: 05/25/17 09:04 Dose: 81 mg Clonazepam (Klonopin -) 0.25 mg PO BID [facility] Last Admin: 05/25/17 09:08 Dose: 0.25 mg Enoxaparin Sodium (Lovenox -) 40 mg SQ DAILY [facility] Last Admin: 05/25/17 09:03 Dose: 40 mg Lacosamide (Vimpat Liquid -) 100 mg PO BID [facility] Last Admin: 05/25/17 10:43 Dose: 100 mg Levetiracetam (Keppra -) 1,000 mg PO BID [facility] Last Admin: 05/25/17 09:04 Dose: 1,000 mg Metoprolol Tartrate (Lopressor -) 12.5 mg PO BID [facility] Last Admin: 05/25/17 09:03 Dose: 12.5 mg Rosuvastatin Calcium (Crestor -) 40 mg PO HS [facility] Last Admin: 05/24/17 22:31 Dose: 40 mg Senna (Senna -) 1 tab PO HS [facility] Last Admin: 05/24/17 22:31 Dose: 1 tab Valproate Sodium (Depacon Injection -) 1,250 mg IVPB BID [facility] Last Admin: 05/25/17 10:53 Dose: 1,250 mg Laboratory Results - last 24 hr 05/25/17 05/25/17 08:35 08:35 WBC 7.5 RBC 4.09 Hgb 11.8 Hct 35.2 MCV 86.1 MCH 28.7 MCHC 33.4 RDW 15.4 Plt Count 75 L MPV 8.2 Neutrophils % 57.6 Lymphocytes % 22.0 D Monocytes % 14.9 H Eosinophils % 3.6 Basophils % 1.9 D Sodium 140 Potassium 3.9 Chloride 104 Carbon Dioxide 26 Anion Gap 10 BUN 11 D Creatinine 0.8 Creat Clearance w eGFR > 60 Random Glucose 98 Calcium 9.0 Magnesium 1.9 Total Bilirubin 0.3 AST 20 ALT 16 D Alkaline Phosphatase 94 Total Protein 6.9 Albumin 2.3 L ASSESSMENT AND PLAN: 66 yo F with PMH of alcohol abuse who presented to the ER after she was found on the floor by her . 1. Acute lethargy- appears to have wax/waning. this may be new mental status. no signs of infection (afebrile no luekocytosis) back abscess s/p I&D 05/18. was stated to be sebaceuous cyst. now WCx showing normal skin michael. Suspect multifactorial encephalopathy from ongoing ETOH use, CVA Klonopin BID as mental status tolerates. 2. Dysphagia- component of poor mental status. Overall PO intake unrelaible. Refused meds today. Discussed with GI, PEG placement in AM, cardiology clearance as needed. Aspiration precautions. 3. 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 PT and speech pathology 4. Seizures, myoclonic movements of right side- some twitching RUE, klonopin with holding parameters. no more twitching noted. cont anti-eleptics 5. R shoulder swelling- u/s showing complex cyst 2.3x2.2x1cm. s/p I&D 05/18. normal skin michael. off abx 6. Acute anemia- no active signs of bleeding. HGB stable. txn for Hgb < 7. 7. Acute inferior wall STEMI- medical management. on asa/toprol/crestor 8. Hypokalemia- resolved 9. hypomagnesemia- resolved 10. Alcohol abuse 11. E. coli UTI- Completed Rocephin 12. DVT ppx- hep sq 13. PLan for PEG tomorrow and anticipate d/c to [facility] on Tuesday if tolerating feeds and no concerns.
--- NOTE | 2017-05-25 17:59 | PN ---
Progress Note (short form) - Note Progress Note: The patient's at bedside. Need for PEG was discussed. Reiterated that the GT can be removed if the patient regains ability to maintane adequate po intake. Risks discussed. He verbalized understanding. Problem List - Problems (1) Failure to thrive in adult Code(s): R62.7 - ADULT FAILURE TO THRIVE (2) CVA (cerebral vascular accident) Code(s): I63.9 - CEREBRAL INFARCTION, UNSPECIFIED Qualifiers: CVA mechanism: unspecified Qualified Code(s): I63.9 - Cerebral infarction, unspecified; I63.9 - Cerebral infarction, unspecified; I63.9 - Cerebral infarction, unspecified; I63.9 - Cerebral infarction, unspecified (3) Seizure Code(s): R56.9 - UNSPECIFIED CONVULSIONS (4) STEMI (ST elevation myocardial infarction) Code(s): I21.3 - ST ELEVATION (STEMI) MYOCARDIAL INFARCTION OF UNSP SITE Qualifiers: Involved coronary artery: LAD coronary artery Qualified Code(s): I21.02 - ST elevation (STEMI) myocardial infarction involving left anterior descending coronary artery; I21.02 - ST elevation (STEMI) myocardial infarction involving left anterior descending coronary artery; I21.02 - ST elevation (STEMI ) myocardial infarction involving left anterior descending coronary artery; I21.02 - ST elevation (STEMI) myocardial infarction involving left anterior descending coronary artery
[2017-05-25] MEDS ORDERED: ROSUVASTATIN CA 10 MG TABLET (FP) ONE (21:35)
[2017-05-25] MEDS: ROSUVASTATIN CA 20 MG TABLET (FP) PO SCH (22:18)
[2017-05-25] MEDS: SENNOSIDES 8.6MG TABLET (FP) PO SCH (22:19)
[2017-05-26] MEDS: AMINO ACIDS/PROTEIN HYDROLYS 30 ML LIQUID.PKT PO SCH ×2 (08:26→17:13)
[2017-05-26 08:47] LABS: ALBUMIN 2.2 g/dl (3.4-5.0); ANION GAP 9 (8-16); BASOPHIL 1.1 % (0-2.0); CALCIUM 8.6 mg/dL (8.5-10.1); CO2 26 mmol/L (21-32); CREATININE 0.9 mg/dL (0.55-1.02); EOSINOPHIL 3.6 % (0-4.5); GLUCOSE,RANDOM 90 mg/dL (74-106); MAGNESIUM 1.8 mg/dL (1.8-2.4); MCH 29.7 pg (25.7-33.7); MCHC 34.1 g/dl (32.0-36.0); MEAN CELL VOLUME 87.2 fl (80-96); MEAN PLT VOLUME 8.5 fl (7.5-11.1); NEUTROPHILS 58.1 % (42.8-82.8); PHOSPHOROUS 3.3 mg/dL (2.5-4.9); PLATELET COUNT 71 K/MM3 (134-434); RDW 15.6 % (11.6-15.6); SGOT/AST 17 U/L (15-37); SGPT/ALT 14 U/L (12-78); WHITE BLOOD COUNT 8.1 K/mm3 (4.0-10.0)
[2017-05-26 08:53] LABS: ALK PHOS 86 U/L (45-117); BILIRUBIN,TOTAL 0.3 mg/dL (0.2-1.0); TOT PROT 6.8 g/dl (6.4-8.2)
[2017-05-26] MEDS ORDERED: PT OWN MED DRAWER 7, Y5N ONE (09:03)
[2017-05-26] MEDS: D5-NS + 20 MEQ KCL - 1,000 ML IV SCH (09:13)
[2017-05-26] MEDS: VALPROATE SODIUM 500 MG/5 ML VIAL IVPB SCH ×2 (09:14→21:47)
[2017-05-26] MEDS: METOPROLOL TARTRATE 25 MG TABLET (FP) PO SCH ×2 (09:15→21:46)
[2017-05-26] MEDS: clonazePAM 0.5 MG TABLET PO SCH ×2 (09:15→21:44)
[2017-05-26] MEDS: ENOXAPARIN NA (PORCINE) 40 MG/0.4 ML DISP.SYRIN SQ SCH (09:16)
[2017-05-26] MEDS: ASPIRIN 81 MG CHEWABLE TABLETS PO SCH (09:17)
[2017-05-26] MEDS ORDERED: PROPOFOL 20 ML ONE (09:35)
[2017-05-26] MEDS ORDERED: ETOMIDATE 20 MG/10 ML AMPUL IVPUSH ONE (09:35)
--- NOTE | 2017-05-26 10:11 | PN ---
Progress Note (short form) - Note Progress Note: Neurology This is a female of unknown age and name with unknown medical history who presented BIBA after her called 911 because she had fallen on the floor and was not able to pick herself up after being on the floor for reportedly 24 hours. EMS states that the patient was laying on the carpeted floor on their arrival on scene at her home. The explained that he found her on the floor and she said she felt fine, so he did not call 911 until he saw her in the same place on the floor therafter. The patient was minimally responsive in the ED but able to state she was having left-sided weakness for the past three days which is what caused her to fall but thought it would pass and did not come to the hospital. She was out of TPA window. MRI completed and showed subacute infarcts L temporal/parietal, L thalamic and she does have right sided deficits. There was some facial twitching and patient put on Keppra, increased to 1000mg twice a day, Vimpat also started 100mg twice daily, Depakote also started with good control. Patient on ASA 81mg. CD without hemodynamically significant stenosis, Echo complete and LV function normal. Completed Abx for UTI. Some mild twitching, depakote had been increased to 1250mg twice daily. Has been arousable and more communicative. Regarding R shoulder abcess, this likely source of lethargy. Was incised and drained. Some twitching noted, for PEG today. Recommend giving her seizure medications as IV for this morning to prevent seizures. Patient also to get anesthesia which would also be protective. Active Medications Acetaminophen (Tylenol -) 650 mg PO Q6H PRN PRN Reason: FEVER OR PAIN Amino Acids (Prosource No Carb Liquid Pkt) 30 ml PO BID@0800,1730 [facility] Last Admin: 05/26/17 08:26 Dose: Not Given Aspirin (Asa -) 81 mg PO DAILY [facility] Last Admin: 05/26/17 09:17 Dose: Not Given Clonazepam (Klonopin -) 0.25 mg PO BID [facility] Last Admin: 05/26/17 09:15 Dose: Not Given Enoxaparin Sodium (Lovenox -) 40 mg SQ DAILY [facility] Last Admin: 05/26/17 09:16 Dose: Not Given Dextrose/Sodium Chloride (Dextrose 5%-Normal Saline+20 Meq Kcl -) 1,000 mls @ 75 mls/hr IV ASDIR [facility] Last Admin: 05/26/17 09:13 Dose: 75 mls/hr Lacosamide (Vimpat Injection -) 100 mg IVPB BID [facility] Levetiracetam (Keppra Injection -) 1,000 mg IVPB BID [facility] Metoprolol Tartrate (Lopressor -) 12.5 mg PO BID [facility] Last Admin: 05/26/17 09:15 Dose: Not Given Rosuvastatin Calcium (Crestor -) 40 mg PO HS [facility] Last Admin: 05/25/17 22:18 Dose: 40 mg Senna (Senna -) 1 tab PO HS [facility] Last Admin: 05/25/17 22:19 Dose: 1 tab Valproate Sodium (Depacon Injection -) 1,250 mg IVPB BID [facility] Last Admin: 05/26/17 09:14 Dose: 1,250 mg *Physical Exam Vital Signs Temperature 98.5 F 05/26/17 06:00 Pulse Rate 61 05/26/17 06:00 Respiratory Rate 20 05/26/17 06:00 Blood Pressure 127/69 05/26/17 06:00 O2 Sat by Pulse Oximetry (%) 100 05/25/17 21:00 - Physical Exam General Appearance: Yes: Disheveled, HEENT: positive: Hearing Grossly Normal, Neck: positive: Trachea midline, Supple. negative: Tender, Rigid Respiratory/Chest: positive: Lungs Clear, Normal Breath Sounds. negative: Respiratory Distress, Crackles, Rhonchi, Stridor, Wheezing Cardiovascular: positive: Regular Rhythm, Regular Rate. negative: Murmur Gastrointestinal/Abdominal: positive: Normal Bowel Sounds, Soft. negative: Tender, Organomegaly, Pulsatile Mass, Guarding Musculoskeletal: positive: Normal Inspection. negative: Decreased Range of Motion, Vertebral Tenderness Extremity: positive: Normal Capillary Refill, Normal Inspection, Normal Range of Motion. negative: Tender, Cyanosis Integumentary: positive: Normal Color, Dry, Warm. negative: Erythema, Rash, Bruising Neurologic: Limited exam, not participating in full confrontation, move LUE slight more than right, ?3/5 on R, ? 2/5 on L, tactile stimulation intact but limited on R, gait deferred CBCD WBC 8.1 K/mm3 (4.0-10.0) 05/26/17 07:00 RBC 3.73 M/mm3 (3.60-5.2) 05/26/17 07:00 Hgb 11.1 GM/dL (10.7-15.3) 05/26/17 07:00 Hct 32.5 % (32.4-45.2) 05/26/17 07:00 MCV 87.2 fl (80-96) 05/26/17 07:00 MCHC 34.1 g/dl (32.0-36.0) 05/26/17 07:00 RDW 15.6 % (11.6-15.6) 05/26/17 07:00 Plt Count 71 K/MM3 (134-434) L 05/26/17 07:00 MPV 8.5 fl (7.5-11.1) 05/26/17 07:00 CMP Sodium 137 mmol/L (136-145) 05/26/17 07:00 Potassium 3.7 mmol/L (3.5-5.1) 05/26/17 07:00 Chloride 102 mmol/L (98-107) 05/26/17 07:00 Carbon Dioxide 26 mmol/L (21-32) 05/26/17 07:00 Anion Gap 9 (8-16) 05/26/17 07:00 BUN 12 mg/dL (7-18) 05/26/17 07:00 Creatinine 0.9 mg/dL (0.55-1.02) 05/26/17 07:00 Creat Clearance w eGFR > 60 (>60) 05/26/17 07:00 Calcium 8.6 mg/dL (8.5-10.1) 05/26/17 07:00 Total Bilirubin 0.3 mg/dL (0.2-1.0) 05/26/17 07:00 AST 17 U/L (15-37) 05/26/17 07:00 ALT 14 U/L (12-78) 05/26/17 07:00 Alkaline Phosphatase 86 U/L (45-117) 05/26/17 07:00 Total Protein 6.8 g/dl (6.4-8.2) 05/26/17 07:00 Albumin 2.2 g/dl (3.4-5.0) L 05/26/17 07:00 - RADIOLOGY MRI brain reviewed CT head repeated and reviewed CD, echo reviewed Medical Decision Making female of unknown age and name with unknown medical history who presented BIBA after her called 911 because she had fallen on the floor and was not able to pick herself up after being on the floor for reportedly 24 hours. EMS states that the patient was laying on the carpeted floor on their arrival on scene at her home. The explained that he found her on the floor and she said she felt fine, so he did not call 911 until he saw her in the same place on the floor therafter. The patient was minimally responsive in the ED but able to state she was having left-sided weakness for the past three days which is what caused her to fall but thought it would pass and did not come to the hospital. There was a question of generalized seizure and positive troponins. CT head completed and did not show acute changes. MRI demonstrated subacute infarcts L temporal/parietal, L thalamic CVA. -Patient on Keppra for seizures, getting 1000mg twice daily, recommend IV admistration as expected to get PEG -Vimpat 100mg twice daily and Depakote increased to 1250mg twice daily can be continued, would recommend IV in anticipating of PEG -Klonipin at 0.25mg has been helpful, sedation issue currently, held -Continue ASA -Shoulder wound treated -BP control, goal < 160/90 for now, < 140/90 as outpatient -PT/OT as tolerated -Mental status has improved -Being considered for PEG placement for today -SNF thereafter -DVT ppx
[2017-05-26] MEDS: levETIRAcetam 500 MG/5 ML INJECTION VIAL IVPB SCH ×2 (10:33→21:47)
[2017-05-26] MEDS ORDERED: ceFAZolin SODIUM 1 GM VIAL ONE (10:56)
[2017-05-26] MEDS ORDERED: ceFAZolin SODIUM 1 GM VIAL IVPB ONE (11:00)
--- NOTE | 2017-05-26 11:23 | PN ---
Physical Exam: SUBJECTIVE: Patient seen and examined at bedside. Patient is more lethargic today, possibly due to his antipsychotics. Patient is able to respond to commands. OBJECTIVE: Vital Signs Period Temp Pulse Resp BP Sys/Levine Pulse Ox Last 24 Hr 98.1 F-98.8 F 61-70 18-20 92-127/64-76 100-100 GENERAL: The patient is barely arousable and not oriented HEAD: Normal with no signs of trauma. LUNGS: Breath sounds equal, clear to auscultation bilaterally, no wheezes, no crackles, no accessory muscle use. HEART: Regular rate and rhythm, S1, S2 without murmur, rub or gallop. ABDOMEN: Soft, nontender, nondistended, normoactive bowel sounds, no guarding, no rebound, no hepatosplenomegaly, no masses. NEUROLOGICAL: patient is able to lift her L arm on command, slightly moves her right hand and fingers on command, no myoclonic jerks noted on exam Laboratory Results - last 24 hr 05/26/17 05/26/17 07:00 07:00 WBC 8.1 RBC 3.73 Hgb 11.1 Hct 32.5 MCV 87.2 MCH 29.7 MCHC 34.1 RDW 15.6 Plt Count 71 L MPV 8.5 Neutrophils % 58.1 Lymphocytes % 25.3 Monocytes % 11.9 H Eosinophils % 3.6 Basophils % 1.1 Sodium 137 Potassium 3.7 Chloride 102 Carbon Dioxide 26 Anion Gap 9 BUN 12 Creatinine 0.9 Creat Clearance w eGFR > 60 Random Glucose 90 Calcium 8.6 Phosphorus 3.3 Magnesium 1.8 Total Bilirubin 0.3 AST 17 ALT 14 Alkaline Phosphatase 86 Total Protein 6.8 Albumin 2.2 L Active Medications Generic Name Dose Route Start Last Admin Trade Name Freq PRN Reason Stop Dose Admin Acetaminophen 650 mg 05/02/17 06:48 Tylenol - PO Q6H PRN FEVER OR PAIN Amino Acids 30 ml 05/18/17 08:15 05/26/17 08:26 Prosource No Carb Liquid Pkt PO Not Given BID@0800,1730 [facility] Aspirin 81 mg 05/14/17 10:00 05/26/17 09:17 Asa - PO Not Given DAILY [facility] Clonazepam 0.25 mg 05/21/17 10:00 05/26/17 09:15 Klonopin - PO Not Given BID [facility] Enoxaparin Sodium 40 mg 05/18/17 10:00 05/26/17 09:16 Lovenox - SQ Not Given DAILY [facility] Dextrose/Sodium Chloride 1,000 mls @ 75 mls/hr 05/26/17 09:00 05/26/17 09:13 Dextrose 5%-Normal Saline+20 Meq Kcl - IV 75 mls/hr ASDIR [facility] Administration Lacosamide 100 mg 05/26/17 10:00 Vimpat Injection - IVPB BID [facility] Levetiracetam 1,000 mg 05/26/17 10:00 05/26/17 10:33 Keppra Injection - IVPB 1,000 mg BID [facility] Administration Metoprolol Tartrate 12.5 mg 05/22/17 11:34 05/26/17 09:15 Lopressor - PO Not Given BID [facility] Rosuvastatin Calcium 40 mg 05/02/17 22:00 05/25/17 22:18 Crestor - PO 40 mg HS [facility] Administration Senna 1 tab 05/02/17 22:00 05/25/17 22:19 Senna - PO 1 tab HS [facility] Administration Valproate Sodium 1,250 mg 05/24/17 22:00 05/26/17 09:14 Depacon Injection - IVPB 1,250 mg BID [facility] Administration ASSESSMENT/PLAN: 66 year old female w/ hx of alcohol abuse presented to the ED after being found on the floor by her , hospitalized, on day 34 for L temporal/parietal CVA and seizures, acute inferior wall SD 1. Dysphagia: patient has poor PO intake; PEG placement today -continue low dose IVF for hydration -PEG today (Dr. Santoro), consent on file -start tube feeds in the AM 2. Lethargy: her lethargy waxes and wanes, could be lethargic and unresponsive to commands and several hours later be oriented -today patient was not alert and oriented -no signs of any acute cause or infection -continue to monitor 3. CVA: slightly improved R hemiparesis and R upper extremity myoclonic jerks -continue aspirin 81mg -continue crestor 40mg 4. Seizures: patient continues to have myoclonic movements of her right upper extremity -patient is on klonopin, which has been effective, continue medication -switch seizure meds to IV - keppra 1000 BID, depakene 1250 bid and Vimpat 100 bid 5. R shoulder cyst: ultrasound revealed a cystic mass with dimensions 2.3 x 2.2x 1 centimeters -patient received an I&D on 05/18 and pathology revealed normal skin michael -patient is not currently receiving antibiotics 6. Acute Inferior Wall SD: currently managed medically, no other intervention required -continue aspirin -continue crestor 7. Hypomagnesemia: previously resolved 8. Hypokalemia: resolved -monitor K and Mg in the AM 9. UTI: resolved 10. FEN -patient is on KCl 20meq in dextrose/NS @75/hr -electrolytes stable, measure CMP in AM -continue dysphagia puree diet 11. Prophylaxis -cont lovenox 40mg QD 12. Dyspo: -PEG today -Will need D/C to [facility] facility tomorrow Problem List - Problems (1) NICOLÁS (acute kidney injury) Code(s): N17.9 - ACUTE KIDNEY FAILURE, UNSPECIFIED (2) Abscess Code(s): L02.91 - CUTANEOUS ABSCESS, UNSPECIFIED (3) CVA (cerebral vascular accident) Code(s): I63.9 - CEREBRAL INFARCTION, UNSPECIFIED Qualifiers: CVA mechanism: unspecified Qualified Code(s): I63.9 - Cerebral infarction, unspecified; I63.9 - Cerebral infarction, unspecified; I63.9 - Cerebral infarction, unspecified; I63.9 - Cerebral infarction, unspecified (4) STEMI (ST elevation myocardial infarction) Code(s): I21.3 - ST ELEVATION (STEMI) MYOCARDIAL INFARCTION OF UNSP SITE Qualifiers: Involved coronary artery: LAD coronary artery Qualified Code(s): I21.02 - ST elevation (STEMI) myocardial infarction involving left anterior descending coronary artery; I21.02 - ST elevation (STEMI) myocardial infarction involving left anterior descending coronary artery; I21.02 - ST elevation (STEMI ) myocardial infarction involving left anterior descending coronary artery; I21.02 - ST elevation (STEMI) myocardial infarction involving left anterior descending coronary artery (5) Seizure Code(s): R56.9 - UNSPECIFIED CONVULSIONS (6) UTI (urinary tract infection) Code(s): N39.0 - URINARY TRACT INFECTION, SITE NOT SPECIFIED Qualifiers: Urinary tract infection type: acute cystitis Hematuria presence: without hematuria Qualified Code(s): N30.00 - Acute cystitis without hematuria; N30.00 - Acute cystitis without hematuria Visit type - Emergency Visit Emergency Visit: No - New Patient This patient is new to me today: No - Critical Care Critical Care patient: No
--- NOTE | 2017-05-26 11:38 | PROC ---
Endoscopy Procedure Endoscopy procedure completed. Please see scanned procedure report.
--- NOTE | 2017-05-26 11:43 | PN ---
Progress Note (short form) - Note Progress Note: NPO, except medications Do not use peg today Monitor for signs of bleeding' Inform GI if fever, tachycardia, hypotension, abdominal pain, hematemesis, vomiting. CBC in AM Problem List - Problems (1) Failure to thrive in adult Code(s): R62.7 - ADULT FAILURE TO THRIVE (2) CVA (cerebral vascular accident) Code(s): I63.9 - CEREBRAL INFARCTION, UNSPECIFIED Qualifiers: CVA mechanism: unspecified Qualified Code(s): I63.9 - Cerebral infarction, unspecified; I63.9 - Cerebral infarction, unspecified; I63.9 - Cerebral infarction, unspecified; I63.9 - Cerebral infarction, unspecified (3) Seizure Code(s): R56.9 - UNSPECIFIED CONVULSIONS (4) STEMI (ST elevation myocardial infarction) Code(s): I21.3 - ST ELEVATION (STEMI) MYOCARDIAL INFARCTION OF UNSP SITE Qualifiers: Involved coronary artery: LAD coronary artery Qualified Code(s): I21.02 - ST elevation (STEMI) myocardial infarction involving left anterior descending coronary artery; I21.02 - ST elevation (STEMI) myocardial infarction involving left anterior descending coronary artery; I21.02 - ST elevation (STEMI ) myocardial infarction involving left anterior descending coronary artery; I21.02 - ST elevation (STEMI) myocardial infarction involving left anterior descending coronary artery
[2017-05-26] MEDS: Lacosamide 200 MG/20 ML VIAL IVPB SCH ×3 (11:55→21:46)
--- NOTE | 2017-05-26 14:16 | PN ---
Teaching Attending Note Name of Resident: Brian Paz ATTENDING PHYSICIAN STATEMENT I saw and evaluated the patient. I reviewed the resident's note and discussed the case with the resident. I agree with the resident's findings and plan as documented. SUBJECTIVE: patient seen and examined, Calm, responds to name, follows commands, denies any symptoms, but ROS limited by her cognitive status. OBJECTIVE: Vital Signs Period Temp Pulse Resp BP Sys/Levine Pulse Ox Last 24 Hr 98.1 F-98.8 F 61-68 18-20 101-129/67-81 98-100 Intake & Output 05/23/17 05/24/17 05/25/17 05/26/17 23:59 23:59 23:59 23:59 Intake Total 2019 1200 2335 200 Balance 2019 1200 2335 200 Weight 151 lb 8 oz General - in bed in no acute distress CVS -S1S2 regular Chest poor effort, no rales or wheezing appreciated Abdomen - soft, NT extremities - no edema Neuro sleepy but arousable, responds to name, follows commands, right hemiparesis (few intentional movements in RUE) Current Medications Acetaminophen (Tylenol -) 650 mg PO Q6H PRN PRN Reason: FEVER OR PAIN Amino Acids (Prosource No Carb Liquid Pkt) 30 ml PO BID@0800,1730 [facility] Last Admin: 05/26/17 08:26 Dose: Not Given Aspirin (Asa -) 81 mg PO DAILY [facility] Last Admin: 05/26/17 09:17 Dose: Not Given Clonazepam (Klonopin -) 0.25 mg PO BID [facility] Last Admin: 05/26/17 09:15 Dose: Not Given Enoxaparin Sodium (Lovenox -) 40 mg SQ DAILY [facility] Last Admin: 05/26/17 09:16 Dose: Not Given Dextrose/Sodium Chloride (Dextrose 5%-Normal Saline+20 Meq Kcl -) 1,000 mls @ 75 mls/hr IV ASDIR [facility] Last Admin: 05/26/17 09:13 Dose: 75 mls/hr Lacosamide (Vimpat Injection -) 100 mg IVPB BID [facility] Last Admin: 05/26/17 13:26 Dose: 100 mg Levetiracetam (Keppra Injection -) 1,000 mg IVPB BID [facility] Last Admin: 05/26/17 10:33 Dose: 1,000 mg Metoprolol Tartrate (Lopressor -) 12.5 mg PO BID [facility] Last Admin: 05/26/17 09:15 Dose: Not Given Rosuvastatin Calcium (Crestor -) 40 mg PO [facility] Last Admin: 05/25/17 22:18 Dose: 40 mg Senna (Senna -) 1 tab PO [facility] Last Admin: 05/25/17 22:19 Dose: 1 tab Valproate Sodium (Depacon Injection -) 1,250 mg IVPB BID [facility] Last Admin: 05/26/17 09:14 Dose: 1,250 mg Laboratory Results - last 24 hr 05/26/17 05/26/17 07:00 07:00 WBC 8.1 RBC 3.73 Hgb 11.1 Hct 32.5 MCV 87.2 MCH 29.7 MCHC 34.1 RDW 15.6 Plt Count 71 L MPV 8.5 Neutrophils % 58.1 Lymphocytes % 25.3 Monocytes % 11.9 H Eosinophils % 3.6 Basophils % 1.1 Sodium 137 Potassium 3.7 Chloride 102 Carbon Dioxide 26 Anion Gap 9 BUN 12 Creatinine 0.9 Creat Clearance w eGFR > 60 Random Glucose 90 Calcium 8.6 Phosphorus 3.3 Magnesium 1.8 Total Bilirubin 0.3 AST 17 ALT 14 Alkaline Phosphatase 86 Total Protein 6.8 Albumin 2.2 L ASSESSMENT AND PLAN: -Encephalopathy, suspect multifactorial from CVA with seizures, ETOH abuse, prior infection -Dysphagia -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 coli UTI s/p rocephin Plan: for PEG insertion today, post procedure care per GI. Continue current medical management. PLan for d/c tomorrow if no issues with PEG and no new concerns.
--- NOTE | 2017-05-26 15:38 | PN ---
Progress Note (short form) - Note Progress Note: No significant in overall condition. No acute events documented overnight. Awake and responsive. Intake & Output 05/21/17 05/22/17 05/23/17 05/24/17 23:59 23:59 23:59 23:59 Intake Total 2805 900 2020 1100 Balance 2805 900 2020 1100 Last Vital Signs Temp Pulse Resp BP Pulse Ox 98.0 F 70 20 110/70 96 05/24/17 10:59 05/24/17 10:59 05/24/17 10:59 05/24/17 10:59 05/23/17 21:00 Active Medications Acetaminophen (Tylenol -) 650 mg PO Q6H PRN PRN Reason: FEVER OR PAIN Amino Acids (Prosource No Carb Liquid Pkt) 30 ml PO BID@0800,1730 [facility] Last Admin: 05/24/17 08:28 Dose: 30 ml Aspirin (Asa -) 81 mg PO DAILY [facility] Last Admin: 05/24/17 09:51 Dose: 81 mg Clonazepam (Klonopin -) 0.25 mg PO BID [facility] Last Admin: 05/24/17 09:49 Dose: 0.25 mg Enoxaparin Sodium (Lovenox -) 40 mg SQ DAILY [facility] Last Admin: 05/24/17 09:48 Dose: 40 mg Potassium Chloride 20 meq/ (Dextrose/Sodium Chloride) 1,010 mls @ 75 mls/hr IV ASDIR [facility] Last Admin: 05/24/17 09:52 Dose: 75 mls/hr Lacosamide (Vimpat Liquid -) 100 mg PO BID [facility] Last Admin: 05/24/17 09:50 Dose: 100 mg Levetiracetam (Keppra Oral Solution -) 1,000 mg PO BID [facility] Last Admin: 05/24/17 12:33 Dose: Not Given Metoprolol Tartrate (Lopressor -) 12.5 mg PO BID [facility] Last Admin: 05/24/17 09:50 Dose: 12.5 mg Potassium Chloride (K-Dur -) 40 meq PO ONCE ONE Stop: 05/24/17 13:19 Rosuvastatin Calcium (Crestor -) 40 mg PO HS [facility] Last Admin: 05/23/17 21:17 Dose: 40 mg Senna (Senna -) 1 tab PO HS [facility] Last Admin: 05/23/17 21:19 Dose: 1 tab Valproate Sodium (Depakene -) 1,250 mg PO BID [facility] Last Admin: 05/24/17 09:51 Dose: 1,250 mg Constitutional: NAD Eyes: Yes: (-) Pallor HENT: Yes: Atraumatic, Normocephalic Neck: Yes: Supple, Trachea Midline Cardiovascular: Yes: Regular Rate and Rhythm, S1, S2 Respiratory: Yes: CTA Bilaterally Gastrointestinal: Yes: WNL, Soft, Hyperactive Bowel Sounds Renal/: Yes: Handy Present Extremities: Yes: WNL Neurological: Yes: Awake, facial Droop Labs: Laboratory Results - last 24 hr 05/24/17 05/24/17 05/24/17 07:25 07:25 07:25 WBC Cancelled Corrected WBC (auto) Cancelled RBC Cancelled Hgb Cancelled Hct Cancelled MCV Cancelled MCH Cancelled MCHC Cancelled RDW Cancelled Plt Count Cancelled MPV Cancelled Neutrophils % Cancelled Lymphocytes % Cancelled Monocytes % Cancelled Eosinophils % Cancelled Basophils % Cancelled Platelet Estimate Cancelled Platelet Comment Cancelled RBC Morphology Cancelled PT with INR 12.50 H INR 1.11 Sodium 137 Potassium 3.5 Chloride 101 Carbon Dioxide 26 Anion Gap 10 BUN 9 Creatinine 0.8 Creat Clearance w eGFR > 60 Random Glucose 83 Calcium 8.9 Total Bilirubin 0.3 AST 25 D ALT 22 D Alkaline Phosphatase 104 D Total Protein 6.8 Albumin 2.2 L 05/24/17 08:35 WBC 9.0 Corrected WBC (auto) RBC 4.16 Hgb 12.0 Hct 35.3 MCV 84.8 MCH 28.7 MCHC 33.9 RDW 15.5 Plt Count 73 L MPV 8.6 Neutrophils % 63.8 Lymphocytes % 17.1 D Monocytes % 13.0 H Eosinophils % 5.6 H D Basophils % 0.5 Platelet Estimate Platelet Comment RBC Morphology PT with INR INR Sodium Potassium Chloride Carbon Dioxide Anion Gap BUN Creatinine Creat Clearance w eGFR Random Glucose Calcium Total Bilirubin AST ALT Alkaline Phosphatase Total Protein Albumin Problem List - Problems (1) NICOLÁS (acute kidney injury) Code(s): N17.9 - ACUTE KIDNEY FAILURE, UNSPECIFIED (2) CVA (cerebral vascular accident) Code(s): I63.9 - CEREBRAL INFARCTION, UNSPECIFIED Qualifiers: CVA mechanism: unspecified Qualified Code(s): I63.9 - Cerebral infarction, unspecified (3) Lactic acidosis Code(s): E87.2 - ACIDOSIS (4) Seizure Code(s): R56.9 - UNSPECIFIED CONVULSIONS Assessment/Plan S/P PEG AEDs PT Medications as ordered No Pulmonary contraindication for D/C planning Dr Early
[2017-05-26] MEDS: ROSUVASTATIN CA 20 MG TABLET (FP) PO SCH (21:43)
[2017-05-26] MEDS: SENNOSIDES 8.6MG TABLET (FP) PO SCH (21:46)
--- NOTE | 2017-05-27 09:04 | PN ---
Progress Note, Physician History of Present Illness: No events. PEG intact @ 5-6. No bleeding, fever, melena - Current Medication List Current Medications: Active Medications Acetaminophen (Tylenol -) 650 mg PO Q6H PRN PRN Reason: FEVER OR PAIN Amino Acids (Prosource No Carb Liquid Pkt) 30 ml PO BID@0800,1730 [facility] Last Admin: 05/26/17 17:13 Dose: 30 ml Aspirin (Asa -) 81 mg PO DAILY [facility] Last Admin: 05/26/17 09:17 Dose: Not Given Clonazepam (Klonopin -) 0.25 mg PO BID [facility] Last Admin: 05/26/17 21:44 Dose: 0.25 mg Enoxaparin Sodium (Lovenox -) 40 mg SQ DAILY [facility] Last Admin: 05/26/17 09:16 Dose: Not Given Dextrose/Sodium Chloride (Dextrose 5%-Normal Saline+20 Meq Kcl -) 1,000 mls @ 75 mls/hr IV ASDIR [facility] Last Admin: 05/26/17 09:13 Dose: 75 mls/hr Lacosamide (Vimpat Injection -) 100 mg IVPB BID [facility] Last Admin: 05/26/17 21:46 Dose: 100 mg Levetiracetam (Keppra Injection -) 1,000 mg IVPB BID [facility] Last Admin: 05/26/17 21:47 Dose: 1,000 mg Metoprolol Tartrate (Lopressor -) 12.5 mg PO BID [facility] Last Admin: 05/26/17 21:46 Dose: 12.5 mg Rosuvastatin Calcium (Crestor -) 40 mg PO [facility] Last Admin: 05/26/17 21:43 Dose: 40 mg Senna (Senna -) 1 tab PO [facility] Last Admin: 05/26/17 21:46 Dose: 1 tab Valproate Sodium (Depacon Injection -) 1,250 mg IVPB BID [facility] Last Admin: 05/26/17 21:47 Dose: 1,250 mg - Objective Vital Signs: Vital Signs Temperature 99 F 05/26/17 22:00 Pulse Rate 89 05/26/17 22:00 Respiratory Rate 18 05/26/17 22:00 Blood Pressure 127/74 05/26/17 22:00 O2 Sat by Pulse Oximetry (%) 95 05/26/17 21:00 Constitutional: Yes: No Distress, Calm Eyes: Yes: Conjunctiva Clear HENT: Yes: Atraumatic Neck: Yes: Supple Cardiovascular: Yes: Regular Rate and Rhythm Respiratory: Yes: Regular Gastrointestinal: Yes: Normal Bowel Sounds, Soft, Tenderness (at PEG), Other ( PEG intact. NO leak, bleeding. Mild tenderness (expected)). No: Distention, Melena, Palpable Mass, Pulsatile Mass, Rectal Bleeding Wound/Incision: Yes: Clean/Dry, Dressing Dry and Intact. No: Draining, Reddened , Bleeding, Excoriated Neurological: Yes: Alert Labs: CBC, BMP 05/26/17 07:00 05/26/17 07:00 INR, PTT INR 1.11 (0.82-1.09) 05/24/17 07:25 CBCD WBC 8.1 K/mm3 (4.0-10.0) 05/26/17 07:00 RBC 3.73 M/mm3 (3.60-5.2) 05/26/17 07:00 Hgb 11.1 GM/dL (10.7-15.3) 05/26/17 07:00 Hct 32.5 % (32.4-45.2) 05/26/17 07:00 MCV 87.2 fl (80-96) 05/26/17 07:00 MCHC 34.1 g/dl (32.0-36.0) 05/26/17 07:00 RDW 15.6 % (11.6-15.6) 05/26/17 07:00 Plt Count 71 K/MM3 (134-434) L 05/26/17 07:00 MPV 8.5 fl (7.5-11.1) 05/26/17 07:00 CMP Sodium 137 mmol/L (136-145) 05/26/17 07:00 Potassium 3.7 mmol/L (3.5-5.1) 05/26/17 07:00 Chloride 102 mmol/L (98-107) 05/26/17 07:00 Carbon Dioxide 26 mmol/L (21-32) 05/26/17 07:00 Anion Gap 9 (8-16) 05/26/17 07:00 BUN 12 mg/dL (7-18) 05/26/17 07:00 Creatinine 0.9 mg/dL (0.55-1.02) 05/26/17 07:00 Creat Clearance w eGFR > 60 (>60) 05/26/17 07:00 Calcium 8.6 mg/dL (8.5-10.1) 05/26/17 07:00 Total Bilirubin 0.3 mg/dL (0.2-1.0) 05/26/17 07:00 AST 17 U/L (15-37) 05/26/17 07:00 ALT 14 U/L (12-78) 05/26/17 07:00 Alkaline Phosphatase 86 U/L (45-117) 05/26/17 07:00 Total Protein 6.8 g/dl (6.4-8.2) 05/26/17 07:00 Albumin 2.2 g/dl (3.4-5.0) L 05/26/17 07:00 Problem List - Problems (1) Failure to thrive in adult Code(s): R62.7 - ADULT FAILURE TO THRIVE (2) CVA (cerebral vascular accident) Code(s): I63.9 - CEREBRAL INFARCTION, UNSPECIFIED Qualifiers: CVA mechanism: unspecified Qualified Code(s): I63.9 - Cerebral infarction, unspecified; I63.9 - Cerebral infarction, unspecified; I63.9 - Cerebral infarction, unspecified; I63.9 - Cerebral infarction, unspecified (3) Seizure Code(s): R56.9 - UNSPECIFIED CONVULSIONS (4) STEMI (ST elevation myocardial infarction) Code(s): I21.3 - ST ELEVATION (STEMI) [facility]ARDIAL [facility] Qualifiers: Involved coronary artery: LAD coronary artery Qualified Code(s): I21.02 - ST elevation (STEMI) myocardial infarction involving left anterior descending coronary artery; I21.02 - ST elevation (STEMI) myocardial infarction involving left anterior descending coronary artery; I21.02 - ST elevation (STEMI ) myocardial infarction involving left anterior descending coronary artery; I21.02 - ST elevation (STEMI) myocardial infarction involving left anterior descending coronary artery Assessment/Plan OK to use PEG Diet order placed. Follow AM labs OK to D/C in the afternoon if tolerating feeding OK to supplement diet via PO Discussed with convening nurse
[2017-05-27] MEDS ORDERED: PT OWN MED DRAWER 7, Y5N ONE ×3 (09:14→15:27)
[2017-05-27] MEDS: AMINO ACIDS/PROTEIN HYDROLYS 30 ML LIQUID.PKT PO SCH ×2 (09:21→17:29)
[2017-05-27] MEDS: VALPROATE SODIUM 500 MG/5 ML VIAL IVPB SCH (09:21)
[2017-05-27] MEDS: ASPIRIN 81 MG CHEWABLE TABLETS PO SCH (09:21)
[2017-05-27] MEDS: D5-NS + 20 MEQ KCL - 1,000 ML IV SCH (09:21)
[2017-05-27] MEDS: clonazePAM 0.5 MG TABLET PO SCH ×2 (09:22→22:01)
[2017-05-27] MEDS: METOPROLOL TARTRATE 25 MG TABLET (FP) PO SCH (09:22)
[2017-05-27] MEDS: ENOXAPARIN NA (PORCINE) 40 MG/0.4 ML DISP.SYRIN SQ SCH (09:26)
[2017-05-27 09:42] LABS: BASOPHIL 1.4 % (0-2.0); EOSINOPHIL 0.8 % (0-4.5); MCH 29.7 pg (25.7-33.7); MCHC 34.3 g/dl (32.0-36.0); MEAN CELL VOLUME 86.5 fl (80-96); MEAN PLT VOLUME 8.8 fl (7.5-11.1); NEUTROPHILS 65.8 % (42.8-82.8); PLATELET COUNT 80 K/MM3 (134-434); RDW 15.8 % (11.6-15.6); WHITE BLOOD COUNT 9.6 K/mm3 (4.0-10.0)
--- NOTE | 2017-05-27 09:52 | PN ---
Progress Note (short form) - Note Progress Note: Neurology This is a female of unknown age and name with unknown medical history who presented BIBA after her called 911 because she had fallen on the floor and was not able to pick herself up after being on the floor for reportedly 24 hours. EMS states that the patient was laying on the carpeted floor on their arrival on scene at her home. The explained that he found her on the floor and she said she felt fine, so he did not call 911 until he saw her in the same place on the floor therafter. The patient was minimally responsive in the ED but able to state she was having left-sided weakness for the past three days which is what caused her to fall but thought it would pass and did not come to the hospital. She was out of TPA window. MRI completed and showed subacute infarcts L temporal/parietal, L thalamic and she does have right sided deficits. There was some facial twitching and patient put on Keppra, increased to 1000mg twice a day, Vimpat also started 100mg twice daily, Depakote also started with good control. Patient on ASA 81mg. CD without hemodynamically significant stenosis, Echo complete and LV function normal. Completed Abx for UTI. Some mild twitching, depakote had been increased to 1250mg twice daily. Has been arousable and more communicative. Regarding R shoulder abcess, this likely source of lethargy. Was incised and drained. Completed PEG and in place. No neurologic issues overnight and post-procedure. Fatigued appearing this morning but awake and alert. Active Medications Acetaminophen (Tylenol -) 650 mg PO Q6H PRN PRN Reason: FEVER OR PAIN Amino Acids (Prosource No Carb Liquid Pkt) 30 ml PO BID@0800,1730 [facility] Last Admin: 05/27/17 09:21 Dose: 30 ml Aspirin (Asa -) 81 mg PO DAILY [facility] Last Admin: 05/27/17 09:21 Dose: 81 mg Clonazepam (Klonopin -) 0.25 mg PO BID [facility] Last Admin: 05/27/17 09:22 Dose: 0.25 mg Enoxaparin Sodium (Lovenox -) 40 mg SQ DAILY [facility] Last Admin: 05/27/17 09:26 Dose: 40 mg Dextrose/Sodium Chloride (Dextrose 5%-Normal Saline+20 Meq Kcl -) 1,000 mls @ 75 mls/hr IV ASDIR [facility] Last Admin: 05/27/17 09:21 Dose: Not Given Lacosamide (Vimpat Injection -) 100 mg IVPB BID [facility] Last Admin: 05/26/17 21:46 Dose: 100 mg Levetiracetam (Keppra Injection -) 1,000 mg IVPB BID [facility] Last Admin: 05/26/17 21:47 Dose: 1,000 mg Metoprolol Tartrate (Lopressor -) 12.5 mg PO BID [facility] Last Admin: 05/27/17 09:22 Dose: 12.5 mg Rosuvastatin Calcium (Crestor -) 40 mg PO [facility] Last Admin: 05/26/17 21:43 Dose: 40 mg Senna (Senna -) 1 tab PO [facility] Last Admin: 05/26/17 21:46 Dose: 1 tab Valproate Sodium (Depacon Injection -) 1,250 mg IVPB BID [facility] Last Admin: 05/27/17 09:21 Dose: 1,250 mg *Physical Exam Vital Signs Period Temp Pulse Resp BP Sys/Levine Pulse Ox Last 24 Hr 98.1 F-99 F 62-89 18-20 107-129/53-81 95-100 - Physical Exam HEENT: positive: Hearing Grossly Normal, Neck: positive: Trachea midline, Supple. negative: Tender, Rigid Respiratory/Chest: positive: Lungs Clear, Normal Breath Sounds. negative: Respiratory Distress, Crackles, Rhonchi, Stridor, Wheezing Cardiovascular: positive: Regular Rhythm, Regular Rate. negative: Murmur Gastrointestinal/Abdominal: positive: Normal Bowel Sounds, Soft. negative: Tender, Organomegaly, Pulsatile Mass, Guarding Musculoskeletal: positive: Normal Inspection. negative: Decreased Range of Motion, Vertebral Tenderness Extremity: positive: Normal Capillary Refill, Normal Inspection, Normal Range of Motion. negative: Tender, Cyanosis Integumentary: positive: Normal Color, Dry, Warm. negative: Erythema, Rash, Bruising Neurologic: Limited exam, not participating in full confrontation, move LUE slight more than right, 3+/5 on R, 2/5 on L, tactile stimulation intact but limited on R, gait deferred CBCD WBC 8.1 K/mm3 (4.0-10.0) 05/26/17 07:00 RBC 3.73 M/mm3 (3.60-5.2) 05/26/17 07:00 Hgb 11.1 GM/dL (10.7-15.3) 05/26/17 07:00 Hct 32.5 % (32.4-45.2) 05/26/17 07:00 MCV 87.2 fl (80-96) 05/26/17 07:00 MCHC 34.1 g/dl (32.0-36.0) 05/26/17 07:00 RDW 15.6 % (11.6-15.6) 05/26/17 07:00 Plt Count 71 K/MM3 (134-434) L 05/26/17 07:00 MPV 8.5 fl (7.5-11.1) 05/26/17 07:00 CMP Sodium 137 mmol/L (136-145) 05/26/17 07:00 Potassium 3.7 mmol/L (3.5-5.1) 05/26/17 07:00 Chloride 102 mmol/L (98-107) 05/26/17 07:00 Carbon Dioxide 26 mmol/L (21-32) 05/26/17 07:00 Anion Gap 9 (8-16) 05/26/17 07:00 BUN 12 mg/dL (7-18) 05/26/17 07:00 Creatinine 0.9 mg/dL (0.55-1.02) 05/26/17 07:00 Creat Clearance w eGFR > 60 (>60) 05/26/17 07:00 Calcium 8.6 mg/dL (8.5-10.1) 05/26/17 07:00 Total Bilirubin 0.3 mg/dL (0.2-1.0) 05/26/17 07:00 AST 17 U/L (15-37) 05/26/17 07:00 ALT 14 U/L (12-78) 05/26/17 07:00 Alkaline Phosphatase 86 U/L (45-117) 05/26/17 07:00 Total Protein 6.8 g/dl (6.4-8.2) 05/26/17 07:00 Albumin 2.2 g/dl (3.4-5.0) L 05/26/17 07:00 - RADIOLOGY MRI brain reviewed CT head repeated and reviewed CD, echo reviewed Medical Decision Making female of unknown age and name with unknown medical history who presented BIBA after her called 911 because she had fallen on the floor and was not able to pick herself up after being on the floor for reportedly 24 hours. EMS states that the patient was laying on the carpeted floor on their arrival on scene at her home. The explained that he found her on the floor and she said she felt fine, so he did not call 911 until he saw her in the same place on the floor therafter. The patient was minimally responsive in the ED but able to state she was having left-sided weakness for the past three days which is what caused her to fall but thought it would pass and did not come to the hospital. There was a question of generalized seizure and positive troponins. CT head completed and did not show acute changes. MRI demonstrated subacute infarcts L temporal/parietal, L thalamic CVA. -Patient on Keppra for seizures, getting 1000mg twice daily, Give IV or via PEG , whichever able to be tolerated -Vimpat 100mg twice daily and Depakote increased to 1250mg twice daily can be continued, Give IV or via PEG, whichever able to be tolerated -Klonipin at 0.25mg has been helpful, sedation issue currently, held -Continue ASA -PEG completed and no issues -BP control, goal < 160/90 for now, < 140/90 as outpatient -PT/OT as tolerated -Mental status has improved -SNF placement -DVT ppx
[2017-05-27 09:55] LABS: ALBUMIN 2.2 g/dl (3.4-5.0); ANION GAP 6 (8-16); BILIRUBIN,TOTAL 0.4 mg/dL (0.2-1.0); CALCIUM 8.6 mg/dL (8.5-10.1); CO2 28 mmol/L (21-32); CREATININE 0.8 mg/dL (0.55-1.02); GLUCOSE,RANDOM 95 mg/dL (74-106); MAGNESIUM 1.7 mg/dL (1.8-2.4); PHOSPHOROUS 3.7 mg/dL (2.5-4.9); SGOT/AST 13 U/L (15-37); SGPT/ALT 12 U/L (12-78); TOT PROT 6.9 g/dl (6.4-8.2)
[2017-05-27 09:56] LABS: ALK PHOS 77 U/L (45-117)
[2017-05-27] MEDS: VALPROATE SODIUM 250 MG/5 ML UNIT DOSE CUP PEG SCH ×2 (11:56→21:59)
[2017-05-27] MEDS ORDERED: levETIRAcetam 500 MG/5 ML ORAL SOLUTION (UNIT-DOSE CUPS) PO SCH (12:00)
--- NOTE | 2017-05-27 12:20 | PN ---
Progress Note, PRESS HELPER - Note Progress Note: PEG inserted and TF ordered. Pending transfer to NH if TF tolerated. PO acceptance is intermittent, with pt holding food in her mouth secondary to Apraxia. Continue to mix puree into soup, milk or ensure if pt is holding food orally. Feed only when sufficiently awake, palpate larynx for reflex and verbally cue pt to swallow. Alternate puree with liquid and finish meal with liquid. Suggest PEG be used to supplement PO intake, with goal for possible weaning from PEG feedings if pt improves.
[2017-05-27] MEDS: levETIRAcetam 500 MG/5 ML ORAL SOLUTION (UNIT-DOSE CUPS) PEG SCH ×2 (13:50→22:00)
[2017-05-27] MEDS: LACOSAMIDE 10 MG/1 ML PEG SCH ×2 (13:51→22:02)
--- NOTE | 2017-05-27 14:53 | DS ---
Physical Exam: SUBJECTIVE: Patient seen and examined at bedside. Patient was mildly lethargic but opens her eyes to commands. Patient is s/p PEG and is tolerating feeds. OBJECTIVE: Vital Signs Period Temp Pulse Resp BP Sys/Levine Pulse Ox Last 24 Hr 98.2 F-99 F 73-89 18-20 106-127/61-81 95-98 PHYSICAL EXAM GENERAL: The patient is barely arousable and not oriented HEAD: Normal with no signs of trauma. LUNGS: Breath sounds equal, clear to auscultation bilaterally, no wheezes, no crackles, no accessory muscle use. HEART: Regular rate and rhythm, S1, S2 without murmur, rub or gallop. ABDOMEN: Soft, nontender, nondistended, abdomen in a binder s/p G-tube placement NEUROLOGICAL: patient is able to lift her L arm on command, slightly moves her right hand and fingers on command, no myoclonic jerks noted on exam LABS Laboratory Results - last 24 hr 05/27/17 05/27/17 09:18 09:18 WBC 9.6 RBC 3.78 Hgb 11.2 Hct 32.7 MCV 86.5 MCH 29.7 MCHC 34.3 RDW 15.8 H Plt Count 80 L MPV 8.8 Neutrophils % 65.8 Lymphocytes % 18.6 D Monocytes % 13.4 H Eosinophils % 0.8 Basophils % 1.4 Sodium 140 Potassium 3.9 Chloride 106 Carbon Dioxide 28 Anion Gap 6 L BUN 12 Creatinine 0.8 Creat Clearance w eGFR > 60 Random Glucose 95 Calcium 8.6 Phosphorus 3.7 Magnesium 1.7 L Total Bilirubin 0.4 D AST 13 L D ALT 12 Alkaline Phosphatase 77 Total Protein 6.9 Albumin 2.2 L HOSPITAL COURSE: Date of Admission:04/21/17 Patient initially presented to the hospital after her called EMS due to a fall where she was not able to get up for 24 hours. She arrived at the hospital without a known age, name, or medical history. Patient was admitted to the hospital with several medical issues including altered mental status secondary to cerebrovascular accident, seizures, inferior wall STEMI, sepsis, and electrolyte abnormalities. Patient's baseline after admission became a waxing and waning lethargy, where on any given day patient would be arousable and able to answer questions, and another day she would be in a somnolent state. There were no acute triggers to these events. Her CVA left her with a R-sided paresis of upper and lower extremities that was treated with aspirin and crestor. Her condition mildly improved and near the end of her admission, patient was able to ambulate her phalanges minimally. Her seizures and subsequent R sided myoclonic jerks of her upper extremity were well controlled on klonopin, keppra, depakene, and vimpat. During her hospitalization, patient developed a troponinemia which was determined to be an acute, inferior wall myocardial infarction, treated medically with aspirin and crestor. Patient furthermore experienced sepsis due to UTI resolved with antibiotic management. Patient's status improved overall, however she was not able to eat and obtain enough calories to sustain a normal intake. Patient underwent percutaneous endoscopic gastrostomy tube placement for caloric supplementation and she was started on a Jevity 1.5 regimen. Patient was discharged to [facility] facility for [facility]. Date of Discharge: 05/27/17 Minutes to complete discharge: 45 Discharge Summary Reason For Visit: CVA UTI LACTIC ACIDOSIS Current Active Problems NICOLÁS (acute kidney injury) (Acute) Abscess (Acute) CVA (cerebral vascular accident) (Acute) Failure to thrive in adult (Acute) Lactic acidosis (Acute) Rhabdomyolysis (Acute) STEMI (ST elevation myocardial infarction) (Acute) Seizure (Acute) UTI (urinary tract infection) (Acute) Condition: Stable - Instructions Diet, Activity, Other Instructions: You were treated at the hospital for stroke, poor ability to eat, seizures, and a heart attack. You had a Percutaneous Endoscopic Gastrostomy tube inserted to assist with feeding. TUBE FEEDING RECOMMENDATION: -Begin Jevity 1.5 @ 20ml/hr x 24 hours with 40ml water flush each hour of feeding -Increase 10ml every 6 hours to goal rate 50ml/hr x 24 hours with 40ml water flush each hour of feeding -Aspiration precautions, keep head elevated to 30-45 degrees -Continue PO diet for pleasure feeding -Please perform calorie count at home with your assistants These are the medications you should be taking at home Keppra 1000mg PO liquid 2x a day through PEG Depakene 1250mg liquid 2x a day through PEG Vimpat 100mg liquid 2x a day Aspirin 81mg once a day Crestor 40mg Metoprolol 12.5mg 2x a day Follow-up Please follow up with your primary care physician. If you don't have a primary care physician, please make an appointment at [facility] Internal Medicine Office [address], [address] Office Additionally, make an appointment with the software engineering project manager Dr. Santoro, the neurologist Dr. Vasquez, and the plant mechanic Dr. Benavides. Advise taper klonopin to off as patient improves. If you experience fever of >101 degrees, return to the emergency room. Referrals: Lc Benavides MD [Staff Physician] - Anthony Santoro MD [Staff Physician] - Clark Vasquez MD [Staff Physician] - Disposition: [facility] - Home Medications Comprehensive Discharge Medication List: Ambulatory Orders Amino Acids/Protein Hydrolys [Prosource No Carb Liquid Pkt] 30 ml PO BID@0800, 1730 #60 packet 05/27/17 Aspirin [ASA -] 81 mg PO DAILY 30 Days 05/27/17 Clonazepam [Klonopin -] 0.25 mg PO BID #30 tablet MDD 0.5 05/27/17 Lacosamide Liquid [Vimpat Liquid -] 100 mg PEG BID #60 bottle MDD 200 05/27/17 Metoprolol Tartrate [Lopressor -] 12.5 mg PEG BID tablet 05/27/17 Rosuvastatin [Crestor -] 40 mg PO HS 30 Days 05/27/17 Sennosides [Senna -] 1 tab PO HS #30 tablet 05/27/17 Valproate Sodium [Depakene -] 1,250 mg PEG BID #60 bottle 05/27/17 Problem List - Problems (1) NICOLÁS (acute kidney injury) Code(s): N17.9 - ACUTE KIDNEY FAILURE, UNSPECIFIED (2) Abscess Code(s): L02.91 - CUTANEOUS ABSCESS, UNSPECIFIED (3) CVA (cerebral vascular accident) Code(s): I63.9 - CEREBRAL INFARCTION, UNSPECIFIED Qualifiers: CVA mechanism: unspecified Qualified Code(s): I63.9 - Cerebral infarction, unspecified; I63.9 - Cerebral infarction, unspecified; I63.9 - Cerebral infarction, unspecified; I63.9 - Cerebral infarction, unspecified (4) STEMI (ST elevation myocardial infarction) Code(s): I21.3 - ST ELEVATION (STEMI) MYOCARDIAL INFARCTION OF [facility] S[facility] Qualifiers: Involved coronary artery: LAD coronary artery Qualified Code(s): I21.02 - ST elevation (STEMI) myocardial infarction involving left anterior descending coronary artery; I21.02 - ST elevation (STEMI) myocardial infarction involving left anterior descending coronary artery; I21.02 - ST elevation (STEMI ) myocardial infarction involving left anterior descending coronary artery; I21.02 - ST elevation (STEMI) myocardial infarction involving left anterior descending coronary artery (5) Seizure Code(s): R56.9 - UNSPECIFIED CONVULSIONS (6) UTI (urinary tract infection) Code(s): N39.0 - URINARY TRACT INFECTION, SITE NOT SPECIFIED Qualifiers: Urinary tract infection type: acute cystitis Hematuria presence: without hematuria Qualified Code(s): N30.00 - Acute cystitis without hematuria; N30.00 - Acute cystitis without hematuria This patient is new to me today: No Emergency Visit: No Critical Care patient: No - Discharge Referral Referred to [facility] No
[2017-05-27] MEDS: levETIRAcetam 500 MG/5 ML INJECTION VIAL IVPB SCH (15:28)
[2017-05-27] MEDS: Lacosamide 200 MG/20 ML VIAL IVPB SCH (15:28)
--- NOTE | 2017-05-27 16:06 | PN ---
Teaching Attending Note Name of Resident: Brian Paz ATTENDING PHYSICIAN STATEMENT I saw and evaluated the patient. I reviewed the resident's note and discussed the case with the resident. I agree with the resident's findings and plan as documented. SUBJECTIVE: Patient seen and examined, Responds to name, no complaints. ROS limited by cognitive status OBJECTIVE: Vital Signs Period Temp Pulse Resp BP Sys/Levine Pulse Ox Last 24 Hr 97.3 F-99 F 71-89 16-20 93-127/57-81 95-98 Intake & Output 05/24/17 05/25/17 05/26/17 05/27/17 23:59 23:59 23:59 23:59 Intake Total 1200 2335 1545 700 Balance 1200 2335 1545 700 Weight 151 lb 8 oz general in no acute distress in bed CVS -S1S2 regular Chest CTAB, no rales, poor effort Abdomen soft, PEG in place, no surrounding erythema/discharge Extremities no edema Neuro RIght hemiparesis Current Medications Acetaminophen (Tylenol -) 650 mg PO Q6H PRN PRN Reason: FEVER OR PAIN Amino Acids (Prosource No Carb Liquid Pkt) 30 ml PO BID@0800,1730 [facility] Last Admin: 05/27/17 09:21 Dose: 30 ml Aspirin (Asa -) 81 mg PO DAILY [facility] Last Admin: 05/27/17 09:21 Dose: 81 mg Clonazepam (Klonopin -) 0.25 mg PO BID [facility] Last Admin: 05/27/17 09:22 Dose: 0.25 mg Enoxaparin Sodium (Lovenox -) 40 mg SQ DAILY [facility] Last Admin: 05/27/17 09:26 Dose: 40 mg Lacosamide (Vimpat Liquid -) 100 mg PEG BID [facility] Last Admin: 05/27/17 13:51 Dose: 100 mg Levetiracetam (Keppra Oral Solution -) 1,000 mg PEG BID [facility] Last Admin: 05/27/17 13:50 Dose: 1,000 mg Metoprolol Tartrate (Lopressor -) 12.5 mg PEG BID [facility] Rosuvastatin Calcium (Crestor -) 40 mg PO HS [facility] Last Admin: 05/26/17 21:43 Dose: 40 mg Senna (Senna -) 1 tab PO [facility] Last Admin: 05/26/17 21:46 Dose: 1 tab Valproate Sodium (Depakene -) 1,250 mg PEG BID [facility] Last Admin: 05/27/17 11:56 Dose: Not Given Laboratory Results - last 24 hr 05/27/17 05/27/17 09:18 09:18 WBC 9.6 RBC 3.78 Hgb 11.2 Hct 32.7 MCV 86.5 MCH 29.7 MCHC 34.3 RDW 15.8 H Plt Count 80 L MPV 8.8 Neutrophils % 65.8 Lymphocytes % 18.6 D Monocytes % 13.4 H Eosinophils % 0.8 Basophils % 1.4 Sodium 140 Potassium 3.9 Chloride 106 Carbon Dioxide 28 Anion Gap 6 L BUN 12 Creatinine 0.8 Creat Clearance w eGFR > 60 Random Glucose 95 Calcium 8.6 Phosphorus 3.7 Magnesium 1.7 L Total Bilirubin 0.4 D AST 13 L D ALT 12 Alkaline Phosphatase 77 Total Protein 6.9 Albumin 2.2 L ASSESSMENT AND PLAN: -Encephalopathy, suspect multifactorial from CVA with seizures, ETOH abuse, prior infection -Dysphagia -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 coli UTI s/p rocephin Plan: s/p PEG placement, tolerating feeds well, titrate up to goal. Continue current medical management. D/c to rehab today when bed available.
[2017-05-27] MEDS ORDERED: ROSUVASTATIN CA 10 MG TABLET (FP) ONE (20:39)
[2017-05-27] MEDS: ROSUVASTATIN CA 20 MG TABLET (FP) PO SCH (21:57)
[2017-05-27] MEDS: METOPROLOL TARTRATE 25 MG TABLET (FP) PEG SCH (22:01)
[2017-05-27] MEDS: SENNOSIDES 8.6MG TABLET (FP) PO SCH (22:02)
[2017-05-28] MEDS ORDERED: PT OWN MED DRAWER 7, Y5N ONE (09:55)
[2017-05-28] MEDS: clonazePAM 0.5 MG TABLET PO SCH (10:25)
[2017-05-28] MEDS: METOPROLOL TARTRATE 25 MG TABLET (FP) PEG SCH ×2 (10:29→21:37)
[2017-05-28] MEDS: ENOXAPARIN NA (PORCINE) 40 MG/0.4 ML DISP.SYRIN SQ SCH (10:32)
[2017-05-28] MEDS: LACOSAMIDE 10 MG/1 ML PEG SCH ×2 (10:35→21:40)
[2017-05-28] MEDS: ASPIRIN 81 MG CHEWABLE TABLETS PO SCH (10:44)
[2017-05-28] MEDS: AMINO ACIDS/PROTEIN HYDROLYS 30 ML LIQUID.PKT PO SCH ×2 (10:45→19:30)
[2017-05-28] MEDS: VALPROATE SODIUM 250 MG/5 ML UNIT DOSE CUP PEG SCH ×2 (10:46→21:39)
[2017-05-28] MEDS: levETIRAcetam 500 MG/5 ML ORAL SOLUTION (UNIT-DOSE CUPS) PEG SCH ×2 (10:47→21:39)
[2017-05-28] MEDS ORDERED: clonazePAM 0.5 MG TABLET PO PRN (13:18)
--- NOTE | 2017-05-28 13:25 | PN ---
Teaching Attending Note Name of Resident: Bozena Crawley ATTENDING PHYSICIAN STATEMENT I saw and evaluated the patient. I reviewed the resident's note and discussed the case with the resident. I agree with the resident's findings and plan as documented. SUBJECTIVE: patient seen and examined, sleepy but arousable, minimal conversation, opens eyes when called, but does not follow all commands. OBJECTIVE: Vital Signs Period Temp Pulse Resp BP Sys/Levine Pulse Ox Last 24 Hr 97.3 F-99.4 F 68-75 16-18 90-104/57-68 98 Intake & Output 05/25/17 05/26/17 05/27/17 05/28/17 23:59 23:59 23:59 23:59 Intake Total 2335 1545 1560 480 Output Total 400 Balance 2335 1545 1160 480 Weight 150 lb 1.6 oz General: sleepy but arousable, in no acute distress in bed CVS-S1s2 regular Chest poor effort, no rales or wheezing abdomen soft, NT, PEG in place, Neuro sleepy but arousable, right hemiparesis Current Medications Acetaminophen (Tylenol -) 650 mg PO Q6H PRN PRN Reason: FEVER OR PAIN Amino Acids (Prosource No Carb Liquid Pkt) 30 ml PO BID@0800,1730 [facility] Last Admin: 05/28/17 10:45 Dose: 30 ml Aspirin (Asa -) 81 mg PO DAILY [facility] Last Admin: 05/28/17 10:44 Dose: 81 mg Clonazepam (Klonopin -) 0.25 mg PO BID PRN PRN Reason: ANXIETY Enoxaparin Sodium (Lovenox -) 40 mg SQ DAILY [facility] Last Admin: 05/28/17 10:32 Dose: 40 mg Lacosamide (Vimpat Liquid -) 100 mg PEG BID [facility] Last Admin: 05/28/17 10:35 Dose: 100 mg Levetiracetam (Keppra Oral Solution -) 1,000 mg PEG BID [facility] Last Admin: 05/28/17 10:47 Dose: 1,000 mg Metoprolol Tartrate (Lopressor -) 12.5 mg PEG BID [facility] Last Admin: 05/28/17 10:29 Dose: 12.5 mg Rosuvastatin Calcium (Crestor -) 40 mg PO HS [facility] Last Admin: 05/27/17 21:57 Dose: 40 mg Senna (Senna -) 1 tab PO HS [facility] Last Admin: 05/27/17 22:02 Dose: 1 tab Valproate Sodium (Depakene -) 1,250 mg PEG BID [facility] Last Admin: 05/28/17 10:46 Dose: 1,250 mg ASSESSMENT AND PLAN: -Encephalopathy, suspect multifactorial from CVA with seizures, ETOH abuse, prior infection -Dysphagia -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 coli UTI s/p rocephin Plan: s/p PEG placement, tolerating feeds well, titrate up to goal. SBP 90s-100s, monitor for now, patient at baseline. Continue current medical management. D/c to rehab when bed available.
[2017-05-28] MEDS ORDERED: ROSUVASTATIN CA 10 MG TABLET (FP) ONE (21:27)
[2017-05-28] MEDS: SENNOSIDES 8.6MG TABLET (FP) PO SCH (21:36)
[2017-05-28] MEDS: ROSUVASTATIN CA 20 MG TABLET (FP) PO SCH (21:38)
[2017-05-29 07:38] LABS: BASOPHIL 2.6 % (0-2.0); EOSINOPHIL 2.5 % (0-4.5); MCH 30.1 pg (25.7-33.7); MCHC 34.3 g/dl (32.0-36.0); MEAN CELL VOLUME 87.6 fl (80-96); MEAN PLT VOLUME 9.1 fl (7.5-11.1); NEUTROPHILS 59.3 % (42.8-82.8); PLATELET COUNT 86 K/MM3 (134-434); RDW 15.5 % (11.6-15.6); WHITE BLOOD COUNT 7.9 K/mm3 (4.0-10.0)
[2017-05-29 08:24] LABS: ANION GAP 9 (8-16); CALCIUM 8.8 mg/dL (8.5-10.1); CO2 29 mmol/L (21-32); CREATININE 0.8 mg/dL (0.55-1.02); GLUCOSE,RANDOM 95 mg/dL (74-106)
[2017-05-29] MEDS: AMINO ACIDS/PROTEIN HYDROLYS 30 ML LIQUID.PKT PO SCH ×2 (09:44→17:40)
[2017-05-29] MEDS: VALPROATE SODIUM 250 MG/5 ML UNIT DOSE CUP PEG SCH ×2 (09:46→23:31)
[2017-05-29] MEDS: levETIRAcetam 500 MG/5 ML ORAL SOLUTION (UNIT-DOSE CUPS) PEG SCH ×2 (09:47→23:31)
[2017-05-29] MEDS: METOPROLOL TARTRATE 25 MG TABLET (FP) PEG SCH ×2 (09:54→23:32)
[2017-05-29] MEDS: LACOSAMIDE 10 MG/1 ML PEG SCH ×2 (09:55→23:32)
[2017-05-29] MEDS: ASPIRIN 81 MG CHEWABLE TABLETS PO SCH (09:55)
[2017-05-29] MEDS: ENOXAPARIN NA (PORCINE) 40 MG/0.4 ML DISP.SYRIN SQ SCH (09:55)
--- NOTE | 2017-05-29 10:20 | PN ---
Progress Note (short form) - Note Progress Note: No significant in overall condition. No acute events documented overnight. Awake and responsive. Intake & Output 05/26/17 05/27/17 05/28/17 05/29/17 23:59 23:59 23:59 23:59 Intake Total 1545 1560 1875 630 Output Total 400 Balance 1545 1160 1875 630 Weight 150 lb 1.6 oz 153 lb Last Vital Signs Temp Pulse Resp BP Pulse Ox 98.5 F 73 20 106/69 97 05/29/17 06:00 05/29/17 06:00 05/29/17 06:00 05/29/17 06:00 05/28/17 21:00 Active Medications Acetaminophen (Tylenol -) 650 mg PO Q6H PRN PRN Reason: FEVER OR PAIN Amino Acids (Prosource No Carb Liquid Pkt) 30 ml PO BID@0800,1730 [facility] Last Admin: 05/29/17 09:44 Dose: 30 ml Aspirin (Asa -) 81 mg PO DAILY [facility] Last Admin: 05/29/17 09:55 Dose: 81 mg Clonazepam (Klonopin -) 0.25 mg PO BID PRN PRN Reason: ANXIETY Enoxaparin Sodium (Lovenox -) 40 mg SQ DAILY [facility] Last Admin: 05/29/17 09:55 Dose: 40 mg Lacosamide (Vimpat Liquid -) 100 mg PEG BID [facility] Last Admin: 05/29/17 09:55 Dose: 100 mg Levetiracetam (Keppra Oral Solution -) 1,000 mg PEG BID [facility] Last Admin: 05/29/17 09:47 Dose: 1,000 mg Metoprolol Tartrate (Lopressor -) 12.5 mg PEG BID [facility] Last Admin: 05/29/17 09:54 Dose: 12.5 mg Rosuvastatin Calcium (Crestor -) 40 mg PO [facility] Last Admin: 05/28/17 21:38 Dose: 40 mg Senna (Senna -) 1 tab PO [facility] Last Admin: 05/28/17 21:36 Dose: 1 tab Valproate Sodium (Depakene -) 1,250 mg PEG BID [facility] Last Admin: 05/29/17 09:46 Dose: 1,250 mg Constitutional: NAD Eyes: Yes: (-) Pallor HENT: Yes: Atraumatic, Normocephalic Neck: Yes: Supple, Trachea Midline Cardiovascular: Yes: Regular Rate and Rhythm, S1, S2 Respiratory: Yes: CTA Bilaterally Gastrointestinal: Yes: WNL, Soft, Hyperactive Bowel Sounds Renal/: Yes: Handy Present Extremities: Yes: WNL Neurological: Yes: Awake, facial Droop Labs: Laboratory Results - last 24 hr 05/29/17 05/29/17 06:00 06:00 WBC 7.9 RBC 3.61 Hgb 10.9 Hct 31.7 L MCV 87.6 MCH 30.1 MCHC 34.3 RDW 15.5 Plt Count 86 L MPV 9.1 Neutrophils % 59.3 Lymphocytes % 19.8 Monocytes % 15.8 H Eosinophils % 2.5 D Basophils % 2.6 H Sodium 138 Potassium 3.5 Chloride 100 Carbon Dioxide 29 Anion Gap 9 BUN 19 H D Creatinine 0.8 Random Glucose 95 Calcium 8.8 Problem List - Problems (1) NICOLÁS (acute kidney injury) Code(s): N17.9 - ACUTE KIDNEY FAILURE, UNSPECIFIED (2) CVA (cerebral vascular accident) Code(s): I63.9 - CEREBRAL INFARCTION, UNSPECIFIED Qualifiers: CVA mechanism: unspecified Qualified Code(s): I63.9 - Cerebral infarction, unspecified (3) Lactic acidosis Code(s): E87.2 - ACIDOSIS (4) Seizure Code(s): R56.9 - UNSPECIFIED CONVULSIONS Assessment/Plan AEDs Medications as ordered No Pulmonary contraindication for D/C planning Dr Early
--- NOTE | 2017-05-29 15:49 | PN ---
Teaching Attending Note Name of Resident: Bozena Crawley ATTENDING PHYSICIAN STATEMENT SUBJECTIVE: Patient seen and examined. Awake and more conversant today OBJECTIVE: Vital Signs Period Temp Pulse Resp BP Sys/Levine Pulse Ox Last 24 Hr 97.3 F-98.5 F 72-85 18-20 92-117/58-75 97 Intake & Output 05/26/17 05/27/17 05/28/17 05/29/17 23:59 23:59 23:59 23:59 Intake Total 1545 1560 1875 630 Output Total 400 Balance 1545 1160 1875 630 Weight 150 lb 1.6 oz 153 lb General: sleepy but arousable, in no acute distress in bed CVS-S1s2 regular Chest poor effort, no rales or wheezing abdomen soft, NT, PEG in place, Neuro sleepy but arousable, right hemiparesis Current Medications Acetaminophen (Tylenol -) 650 mg PO Q6H PRN PRN Reason: FEVER OR PAIN Amino Acids (Prosource No Carb Liquid Pkt) 30 ml PO BID@0800,1730 [facility] Last Admin: 05/29/17 09:44 Dose: 30 ml Aspirin (Asa -) 81 mg PO DAILY [facility] Last Admin: 05/29/17 09:55 Dose: 81 mg Clonazepam (Klonopin -) 0.25 mg PO BID PRN PRN Reason: ANXIETY Enoxaparin Sodium (Lovenox -) 40 mg SQ DAILY [facility] Last Admin: 05/29/17 09:55 Dose: 40 mg Lacosamide (Vimpat Liquid -) 100 mg PEG BID [facility] Last Admin: 05/29/17 09:55 Dose: 100 mg Levetiracetam (Keppra Oral Solution -) 1,000 mg PEG BID [facility] Last Admin: 05/29/17 09:47 Dose: 1,000 mg Metoprolol Tartrate (Lopressor -) 12.5 mg PEG BID [facility] Last Admin: 05/29/17 09:54 Dose: 12.5 mg Rosuvastatin Calcium (Crestor -) 40 mg PO HS [facility] Last Admin: 05/28/17 21:38 Dose: 40 mg Senna (Senna -) 1 tab PO [facility] Last Admin: 05/28/17 21:36 Dose: 1 tab Valproate Sodium (Depakene -) 1,250 mg PEG BID [facility] Last Admin: 05/29/17 09:46 Dose: 1,250 mg Laboratory Results - last 24 hr 05/29/17 05/29/17 05/29/17 06:00 06:00 12:22 WBC 7.9 RBC 3.61 Hgb 10.9 Hct 31.7 L MCV 87.6 MCH 30.1 MCHC 34.3 RDW 15.5 Plt Count 86 L MPV 9.1 Neutrophils % 59.3 Lymphocytes % 19.8 Monocytes % 15.8 H Eosinophils % 2.5 D Basophils % 2.6 H Sodium 138 Potassium 3.5 Chloride 100 Carbon Dioxide 29 Anion Gap 9 BUN 19 H D Creatinine 0.8 POC Glucometer 103 Random Glucose 95 Calcium 8.8 ASSESSMENT AND PLAN: -Encephalopathy, suspect multifactorial from CVA with seizures, ETOH abuse, prior infection -Dysphagia -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 coli UTI s/p rocephin Plan: s/p PEG placement, tolerating feeds well, at goal now. Continue current medical management. D/c to rehab when bed available.
[2017-05-29] MEDS ORDERED: ROSUVASTATIN CA 10 MG TABLET (FP) ONE (20:45)
[2017-05-29] MEDS: ROSUVASTATIN CA 20 MG TABLET (FP) PO SCH (23:30)
[2017-05-29] MEDS: SENNOSIDES 8.6MG TABLET (FP) PO SCH (23:32)
[2017-05-30] MEDS ORDERED: PT OWN MED DRAWER 7, Y5N ONE (08:55)
[2017-05-30] MEDS: ENOXAPARIN NA (PORCINE) 40 MG/0.4 ML DISP.SYRIN SQ SCH (09:08)
[2017-05-30] MEDS: ASPIRIN 81 MG CHEWABLE TABLETS PO SCH (09:08)
[2017-05-30] MEDS: METOPROLOL TARTRATE 25 MG TABLET (FP) PEG SCH ×2 (09:08→23:13)
[2017-05-30] MEDS: LACOSAMIDE 10 MG/1 ML PEG SCH ×2 (09:09→23:21)
[2017-05-30] MEDS: AMINO ACIDS/PROTEIN HYDROLYS 30 ML LIQUID.PKT PO SCH ×2 (09:51→17:18)
--- NOTE | 2017-05-30 10:00 | PN ---
Progress Note (short form) - Note Progress Note: Neurology This is a female of unknown age and name with unknown medical history who presented BIBA after her called 911 because she had fallen on the floor and was not able to pick herself up after being on the floor for reportedly 24 hours. EMS states that the patient was laying on the carpeted floor on their arrival on scene at her home. The explained that he found her on the floor and she said she felt fine, so he did not call 911 until he saw her in the same place on the floor therafter. The patient was minimally responsive in the ED but able to state she was having left-sided weakness for the past three days which is what caused her to fall but thought it would pass and did not come to the hospital. She was out of TPA window. MRI completed and showed subacute infarcts L temporal/parietal, L thalamic and she does have right sided deficits. There was some facial twitching and patient put on Keppra, increased to 1000mg twice a day, Vimpat also started 100mg twice daily, Depakote also started with good control. Patient on ASA 81mg. CD without hemodynamically significant stenosis, Echo complete and LV function normal. Completed Abx for UTI. Had R shoulder abcess, Was incised and drained. Completed PEG and in place. No neurologic issues over weekend and awaiting transfer to SNF. Active Medications Acetaminophen (Tylenol -) 650 mg PO Q6H PRN PRN Reason: FEVER OR PAIN Amino Acids (Prosource No Carb Liquid Pkt) 30 ml PO BID@0800,1730 [facility] Last Admin: 05/30/17 09:51 Dose: 30 ml Aspirin (Asa -) 81 mg PO DAILY [facility] Last Admin: 05/30/17 09:08 Dose: 81 mg Clonazepam (Klonopin -) 0.25 mg PO BID PRN PRN Reason: ANXIETY Enoxaparin Sodium (Lovenox -) 40 mg SQ DAILY [facility] Last Admin: 05/30/17 09:08 Dose: 40 mg Lacosamide (Vimpat Liquid -) 100 mg PEG BID [facility] Last Admin: 05/30/17 09:09 Dose: 100 mg Levetiracetam (Keppra Oral Solution -) 1,000 mg PEG BID [facility] Last Admin: 05/29/17 23:31 Dose: 1,000 mg Metoprolol Tartrate (Lopressor -) 12.5 mg PEG BID [facility] Last Admin: 05/30/17 09:08 Dose: 12.5 mg Rosuvastatin Calcium (Crestor -) 40 mg PO [facility] Last Admin: 05/29/17 23:30 Dose: 40 mg Senna (Senna -) 1 tab PO [facility] Last Admin: 05/29/17 23:32 Dose: 1 tab Valproate Sodium (Depakene -) 1,250 mg PEG BID [facility] Last Admin: 05/29/17 23:31 Dose: 1,250 mg *Physical Exam Vital Signs Period Temp Pulse Resp BP Sys/Levine Pulse Ox Last 24 Hr 97.3 F-99.5 F 72-85 18-20 93-117/60-75 96 - Physical Exam HEENT: positive: Hearing Grossly Normal, Neck: positive: Trachea midline, Supple. negative: Tender, Rigid Respiratory/Chest: positive: Lungs Clear, Normal Breath Sounds. negative: Respiratory Distress, Crackles, Rhonchi, Stridor, Wheezing Cardiovascular: positive: Regular Rhythm, Regular Rate. negative: Murmur Gastrointestinal/Abdominal: positive: Normal Bowel Sounds, Soft. negative: Tender, Organomegaly, Pulsatile Mass, Guarding Musculoskeletal: positive: Normal Inspection. negative: Decreased Range of Motion, Vertebral Tenderness Extremity: positive: Normal Capillary Refill, Normal Inspection, Normal Range of Motion. negative: Tender, Cyanosis Integumentary: positive: Normal Color, Dry, Warm. negative: Erythema, Rash, Bruising Neurologic: Limited exam, not participating in full confrontation, move LUE slight more than right, 3+/5 on R, 2/5 on L, tactile stimulation intact but limited on R, gait deferred CBCD WBC 7.9 K/mm3 (4.0-10.0) 05/29/17 06:00 RBC 3.61 M/mm3 (3.60-5.2) 05/29/17 06:00 Hgb 10.9 GM/dL (10.7-15.3) 05/29/17 06:00 Hct 31.7 % (32.4-45.2) L 05/29/17 06:00 MCV 87.6 fl (80-96) 05/29/17 06:00 MCHC 34.3 g/dl (32.0-36.0) 05/29/17 06:00 RDW 15.5 % (11.6-15.6) 05/29/17 06:00 Plt Count 86 K/MM3 (134-434) L 05/29/17 06:00 MPV 9.1 fl (7.5-11.1) 05/29/17 06:00 CMP Sodium 138 mmol/L (136-145) 05/29/17 06:00 Potassium 3.5 mmol/L (3.5-5.1) 05/29/17 06:00 Chloride 100 mmol/L (98-107) 05/29/17 06:00 Carbon Dioxide 29 mmol/L (21-32) 05/29/17 06:00 Anion Gap 9 (8-16) 05/29/17 06:00 BUN 19 mg/dL (7-18) H D 05/29/17 06:00 Creatinine 0.8 mg/dL (0.55-1.02) 05/29/17 06:00 Creat Clearance w eGFR > 60 (>60) 05/27/17 09:18 Calcium 8.8 mg/dL (8.5-10.1) 05/29/17 06:00 Total Bilirubin 0.4 mg/dL (0.2-1.0) D 05/27/17 09:18 AST 13 U/L (15-37) L D 05/27/17 09:18 ALT 12 U/L (12-78) 05/27/17 09:18 Alkaline Phosphatase 77 U/L (45-117) 05/27/17 09:18 Total Protein 6.9 g/dl (6.4-8.2) 05/27/17 09:18 Albumin 2.2 g/dl (3.4-5.0) L 05/27/17 09:18 - RADIOLOGY MRI brain reviewed CT head repeated and reviewed CD, echo reviewed Medical Decision Making female of unknown age and name with unknown medical history who presented BIBA after her called 911 because she had fallen on the floor and was not able to pick herself up after being on the floor for reportedly 24 hours. EMS states that the patient was laying on the carpeted floor on their arrival on scene at her home. The explained that he found her on the floor and she said she felt fine, so he did not call 911 until he saw her in the same place on the floor therafter. The patient was minimally responsive in the ED but able to state she was having left-sided weakness for the past three days which is what caused her to fall but thought it would pass and did not come to the hospital. There was a question of generalized seizure and positive troponins. CT head completed and did not show acute changes. MRI demonstrated subacute infarcts L temporal/parietal, L thalamic CVA. -Patient on Keppra for seizures, getting 1000mg twice daily, -Vimpat 100mg twice daily and Depakote increased to 1250mg twice daily can be continued, -Klonipin at 0.25mg has been helpful, sedation issue currently, held and likely will not need to restart as twitching stabilized -Continue ASA -PEG completed and no issues -BP control, goal < 160/90 for now, < 140/90 as outpatient -PT/OT as tolerated -Mental status has improved -SNF placement -DVT ppx
[2017-05-30] MEDS: VALPROATE SODIUM 250 MG/5 ML UNIT DOSE CUP PEG SCH ×2 (11:04→23:17)
[2017-05-30] MEDS: levETIRAcetam 500 MG/5 ML ORAL SOLUTION (UNIT-DOSE CUPS) PEG SCH ×2 (11:04→23:17)
--- NOTE | 2017-05-30 16:47 | PN ---
Teaching Attending Note Name of Resident: Brian Paz ATTENDING PHYSICIAN STATEMENT Time of evaluation: 10:50 AM I saw and evaluated the patient. I reviewed the resident's note and discussed the case with the resident. I agree with the resident's findings and plan as documented. SUBJECTIVE: patient seen and examined. No complaints, sleepy but arousable. OBJECTIVE: Vital Signs Period Temp Pulse Resp BP Sys/Levine Pulse Ox Last 24 Hr 97.3 F-99.5 F 72-79 18-20 93-143/57-71 95-96 Intake & Output 05/27/17 05/28/17 05/29/17 05/30/17 23:59 23:59 23:59 23:59 Intake Total 1560 1875 1890 0 Output Total 400 Balance 1160 1875 1890 0 Weight 150 lb 1.6 oz 153 lb 154 lb 8 oz General: comfortable in bed,sleepy but arousable CVS S1S2 regular Chest poor effort no rales or wheezing abdomen soft, NT, PEG in place Neuro Sleepy but arousable, right hemiparesis, unchanged. Current Medications Acetaminophen (Tylenol -) 650 mg PO Q6H PRN PRN Reason: FEVER OR PAIN Amino Acids (Prosource No Carb Liquid Pkt) 30 ml PO BID@0800,1730 [facility] Last Admin: 05/30/17 09:51 Dose: 30 ml Aspirin (Asa -) 81 mg PO DAILY [facility] Last Admin: 05/30/17 09:08 Dose: 81 mg Clonazepam (Klonopin -) 0.25 mg PO BID PRN PRN Reason: ANXIETY Enoxaparin Sodium (Lovenox -) 40 mg SQ DAILY [facility] Last Admin: 05/30/17 09:08 Dose: 40 mg Lacosamide (Vimpat Liquid -) 100 mg PEG BID [facility] Last Admin: 05/30/17 09:09 Dose: 100 mg Levetiracetam (Keppra Oral Solution -) 1,000 mg PEG BID [facility] Last Admin: 05/30/17 11:04 Dose: 1,000 mg Metoprolol Tartrate (Lopressor -) 12.5 mg PEG BID [facility] Last Admin: 05/30/17 09:08 Dose: 12.5 mg Rosuvastatin Calcium (Crestor -) 40 mg PO HS [facility] Last Admin: 05/29/17 23:30 Dose: 40 mg Senna (Senna -) 1 tab PO [facility] Last Admin: 05/29/17 23:32 Dose: 1 tab Valproate Sodium (Depakene -) 1,250 mg PEG BID [facility] Last Admin: 05/30/17 11:04 Dose: 1,250 mg Laboratory Results - last 24 hr 05/29/17 18:15 POC Glucometer 110 ASSESSMENT AND PLAN: -Encephalopathy, suspect multifactorial from CVA with seizures, ETOH abuse, prior infection -Dysphagia -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 coli UTI s/p rocephin Plan: s/p PEG placement, tolerating feeds well, at goal now. Continue current medical management. D/c to rehab vs SNF when bed available.
--- NOTE | 2017-05-30 19:01 | PN ---
Physical Exam: SUBJECTIVE: Patient seen and examined at bedside. No acute complaints. No interval frame changer the weekend. OBJECTIVE: Vital Signs Period Temp Pulse Resp BP Sys/Levine Pulse Ox Last 24 Hr 97.3 F-99.5 F 73-79 18-18 93-143/57-71 95-96 GENERAL: The patient is awake, not alert or oriented. EYES: PERRL, extraocular movements intact, sclera anicteric, conjunctiva clear. No ptosis. ENT: Ears normal, nares patent, oropharynx clear without exudates, moist mucous membranes. NECK: Trachea midline, full range of motion, supple. LUNGS: Breath sounds equal, clear to auscultation bilaterally, no wheezes, no crackles, no accessory muscle use. HEART: Regular rate and rhythm, S1, S2 without murmur, rub or gallop. ABDOMEN: Soft, nontender, nondistended, normoactive bowel sounds, no guarding, no rebound, no hepatosplenomegaly, no masses. Active Medications Generic Name Dose Route Start Last Admin Trade Name Freq PRN Reason Stop Dose Admin Acetaminophen 650 mg 05/02/17 06:48 Tylenol - PO Q6H PRN FEVER OR PAIN Amino Acids 30 ml 05/18/17 08:15 05/30/17 17:18 Prosource No Carb Liquid Pkt PO 30 ml BID@0800,1730 [facility] Administration Aspirin 81 mg 05/14/17 10:00 05/30/17 09:08 Asa - PO 81 mg DAILY [facility] Administration Enoxaparin Sodium 40 mg 05/18/17 10:00 05/30/17 09:08 Lovenox - SQ 40 mg DAILY [facility] Administration Lacosamide 100 mg 05/27/17 12:15 05/30/17 09:09 Vimpat Liquid - PEG 100 mg BID [facility] Administration Levetiracetam 1,000 mg 05/27/17 12:30 05/30/17 11:04 Keppra Oral Solution - PEG 1,000 mg BID [facility] Administration Metoprolol Tartrate 12.5 mg 05/27/17 22:00 05/30/17 09:08 Lopressor - PEG 12.5 mg BID [facility] Administration Rosuvastatin Calcium 40 mg 05/02/17 22:00 05/29/17 23:30 Crestor - PO 40 mg HS [facility] Administration Senna 1 tab 05/02/17 22:00 05/29/17 23:32 Senna - PO 1 tab HS [facility] Administration Valproate Sodium 1,250 mg 05/27/17 12:00 05/30/17 11:04 Depakene - PEG 1,250 mg BID [facility] Administration ASSESSMENT/PLAN: 66 year old female w/ hx of alcohol abuse presented to the ED after being found on the floor by her , hospitalized, on day 39 for L temporal/parietal CVA and seizures, acute inferior wall SD 1. Dysphagia: patient has poor PO intake; PEG placed -s/p PEG (Dr. Santoro) -continue tube feeds 2. Lethargy: her lethargy waxes and wanes, could be lethargic and unresponsive to commands and several hours later be oriented -today patient was not alert and oriented -no signs of any acute cause or infection -continue to monitor 3. CVA: slightly improved R hemiparesis and R upper extremity myoclonic jerks -continue aspirin 81mg -continue crestor 40mg 4. Seizures: patient continues to have myoclonic movements of her right upper extremity -patient is on klonopin, which has been effective, continue medication -switch seizure meds to IV - keppra 1000 BID, depakene 1250 bid and Vimpat 100 bid 5. R shoulder cyst: ultrasound revealed a cystic mass with dimensions 2.3 x 2.2x 1 centimeters -patient received an I&D on 05/18 and pathology revealed normal skin michael -patient is not currently receiving antibiotics 6. Acute Inferior Wall SD: currently managed medically, no other intervention required -continue aspirin -continue crestor 7. Hypomagnesemia: previously resolved 8. Hypokalemia: resolved -monitor K and Mg in the AM 9. UTI: resolved 10. FEN -patient is on KCl 20meq in dextrose/NS @75/hr -electrolytes stable, measure CMP in AM -continue dysphagia puree diet 11. Prophylaxis -cont lovenox 40mg QD 12. Dyspo: -Pending insurance acceptance of nursing facility placement Problem List - Problems (1) NICOLÁS (acute kidney injury) Code(s): N17.9 - ACUTE KIDNEY FAILURE, UNSPECIFIED (2) Abscess Code(s): L02.91 - CUTANEOUS ABSCESS, UNSPECIFIED (3) CVA (cerebral vascular accident) Code(s): I63.9 - CEREBRAL INFARCTION, UNSPECIFIED Qualifiers: CVA mechanism: unspecified Qualified Code(s): I63.9 - Cerebral infarction, unspecified; I63.9 - Cerebral infarction, unspecified; I63.9 - Cerebral infarction, unspecified; I63.9 - Cerebral infarction, unspecified (4) STEMI (ST elevation myocardial infarction) Code(s): I21.3 - ST ELEVATION (STEMI) MYOCARDIAL INFARCTION OF UNSP SITE Qualifiers: Involved coronary artery: LAD coronary artery Qualified Code(s): I21.02 - ST elevation (STEMI) myocardial infarction involving left anterior descending coronary artery; I21.02 - ST elevation (STEMI) myocardial infarction involving left anterior descending coronary artery; I21.02 - ST elevation (STEMI ) myocardial infarction involving left anterior descending coronary artery; I21.02 - ST elevation (STEMI) myocardial infarction involving left anterior descending coronary artery (5) Seizure Code(s): R56.9 - UNSPECIFIED CONVULSIONS (6) UTI (urinary tract infection) Code(s): N39.0 - URINARY TRACT INFECTION, SITE NOT SPECIFIED Qualifiers: Urinary tract infection type: acute cystitis Hematuria presence: without hematuria Qualified Code(s): N30.00 - Acute cystitis without hematuria; N30.00 - Acute cystitis without hematuria Visit type - Emergency Visit Emergency Visit: No - New Patient This patient is new to me today: No - Critical Care Critical Care patient: No
[2017-05-30] MEDS ORDERED: ROSUVASTATIN CA 10 MG TABLET (FP) ONE (21:20)
[2017-05-30] MEDS: ROSUVASTATIN CA 20 MG TABLET (FP) PO SCH (23:13)
[2017-05-30] MEDS: SENNOSIDES 8.6MG TABLET (FP) PO SCH (23:13)
[2017-05-31] MEDS ORDERED: PT OWN MED DRAWER 7, Y5N ONE ×4 (08:16→22:02)
[2017-05-31] MEDS: AMINO ACIDS/PROTEIN HYDROLYS 30 ML LIQUID.PKT PO SCH ×2 (08:24→17:28)
--- NOTE | 2017-05-31 09:44 | PN ---
Progress Note (short form) - Note Progress Note: Neurology This is a female of unknown age and name with unknown medical history who presented BIBA after her called 911 because she had fallen on the floor and was not able to pick herself up after being on the floor for reportedly 24 hours. EMS states that the patient was laying on the carpeted floor on their arrival on scene at her home. The explained that he found her on the floor and she said she felt fine, so he did not call 911 until he saw her in the same place on the floor therafter. The patient was minimally responsive in the ED but able to state she was having left-sided weakness for the past three days which is what caused her to fall but thought it would pass and did not come to the hospital. She was out of TPA window. MRI completed and showed subacute infarcts L temporal/parietal, L thalamic and she does have right sided deficits. There was some facial twitching and patient put on Keppra, increased to 1000mg twice a day, Vimpat also started 100mg twice daily, Depakote also started with good control. Patient on ASA 81mg. CD without hemodynamically significant stenosis, Echo complete and LV function normal. Completed Abx for UTI. Had R shoulder abcess, Was incised and drained. Completed PEG and in place. No neurologic issues overnight and awaiting transfer to SNF. Remains somnolent in AM but recovers during the day. Twitching has resolved but occasionally recur briefly. Active Medications Acetaminophen (Tylenol -) 650 mg PO Q6H PRN PRN Reason: FEVER OR PAIN Amino Acids (Prosource No Carb Liquid Pkt) 30 ml PO BID@0800,1730 [facility] Last Admin: 05/31/17 08:24 Dose: 30 ml Aspirin (Asa -) 81 mg PO DAILY [facility] Last Admin: 05/30/17 09:08 Dose: 81 mg Enoxaparin Sodium (Lovenox -) 40 mg SQ DAILY [facility] Last Admin: 05/30/17 09:08 Dose: 40 mg Lacosamide (Vimpat Liquid -) 100 mg PEG BID [facility] Last Admin: 05/30/17 23:21 Dose: 100 mg Levetiracetam (Keppra Oral Solution -) 1,000 mg PEG BID [facility] Last Admin: 05/30/17 23:17 Dose: 1,000 mg Metoprolol Tartrate (Lopressor -) 12.5 mg PEG BID [facility] Last Admin: 05/30/17 23:13 Dose: 12.5 mg Rosuvastatin Calcium (Crestor -) [address] [facility] Last Admin: 05/30/17 23:13 Dose: 40 mg Senna (Senna -) [address] [facility] Last Admin: 05/30/17 23:13 Dose: 1 tab Valproate Sodium (Depakene -) 1,250 mg PEG BID [facility] Last Admin: 05/30/17 23:17 Dose: 1,250 mg *Physical Exam Vital Signs Period Temp Pulse Resp BP Sys/Levine Pulse Ox Last 24 Hr 97.3 F-99.6 F 73-84 18-20 92-147/56-99 97 - Physical Exam HEENT: positive: Hearing Grossly Normal, Neck: positive: Trachea midline, Supple. negative: Tender, Rigid Respiratory/Chest: positive: Lungs Clear, Normal Breath Sounds. negative: Respiratory Distress, Crackles, Rhonchi, Stridor, Wheezing Cardiovascular: positive: Regular Rhythm, Regular Rate. negative: Murmur Gastrointestinal/Abdominal: positive: Normal Bowel Sounds, Soft. negative: Tender, Organomegaly, Pulsatile Mass, Guarding Musculoskeletal: positive: Normal Inspection. negative: Decreased Range of Motion, Vertebral Tenderness Extremity: positive: Normal Capillary Refill, Normal Inspection, Normal Range of Motion. negative: Tender, Cyanosis Integumentary: positive: Normal Color, Dry, Warm. negative: Erythema, Rash, Bruising Neurologic: Limited exam, not participating in full confrontation, move LUE slight more than right, 3+/5 on R, 2/5 on L, tactile stimulation intact but limited on R, gait deferred CBCD WBC 7.9 K/mm3 (4.0-10.0) 05/29/17 06:00 RBC 3.61 M/mm3 (3.60-5.2) 05/29/17 06:00 Hgb 10.9 GM/dL (10.7-15.3) 05/29/17 06:00 Hct 31.7 % (32.4-45.2) L 05/29/17 06:00 MCV 87.6 fl (80-96) 05/29/17 06:00 MCHC 34.3 g/dl (32.0-36.0) 05/29/17 06:00 RDW 15.5 % (11.6-15.6) 05/29/17 06:00 Plt Count 86 K/MM3 (134-434) L 05/29/17 06:00 MPV 9.1 fl (7.5-11.1) 05/29/17 06:00 CMP Sodium 138 mmol/L (136-145) 05/29/17 06:00 Potassium 3.5 mmol/L (3.5-5.1) 05/29/17 06:00 Chloride 100 mmol/L (98-107) 05/29/17 06:00 Carbon Dioxide 29 mmol/L (21-32) 05/29/17 06:00 Anion Gap 9 (8-16) 05/29/17 06:00 BUN 19 mg/dL (7-18) H D 05/29/17 06:00 Creatinine 0.8 mg/dL (0.55-1.02) 05/29/17 06:00 Creat Clearance w eGFR > 60 (>60) 05/27/17 09:18 Calcium 8.8 mg/dL (8.5-10.1) 05/29/17 06:00 Total Bilirubin 0.4 mg/dL (0.2-1.0) D 05/27/17 09:18 AST 13 U/L (15-37) L D 05/27/17 09:18 ALT 12 U/L (12-78) 05/27/17 09:18 Alkaline Phosphatase 77 U/L (45-117) 05/27/17 09:18 Total Protein 6.9 g/dl (6.4-8.2) 05/27/17 09:18 Albumin 2.2 g/dl (3.4-5.0) L 05/27/17 09:18 - RADIOLOGY MRI brain reviewed CT head repeated and reviewed CD, echo reviewed Medical Decision Making female of unknown age and name with unknown medical history who presented BIBA after her called 911 because she had fallen on the floor and was not able to pick herself up after being on the floor for reportedly 24 hours. EMS states that the patient was laying on the carpeted floor on their arrival on scene at her home. The explained that he found her on the floor and she said she felt fine, so he did not call 911 until he saw her in the same place on the floor therafter. The patient was minimally responsive in the ED but able to state she was having left-sided weakness for the past three days which is what caused her to fall but thought it would pass and did not come to the hospital. There was a question of generalized seizure and positive troponins. CT head completed and did not show acute changes. MRI demonstrated subacute infarcts L temporal/parietal, L thalamic CVA. -Patient on Keppra for seizures, getting 1000mg twice daily, -Vimpat 100mg twice daily and Depakote increased to 1250mg twice daily can be continued, -Klonipin at 0.25mg has been helpful, sedation issue currently, held and likely will not need to restart as twitching stabilized -Continue ASA -PEG completed and no issues, tolerating tube feeds -BP control, goal < 160/90 for now, < 140/90 as outpatient -PT/OT as tolerated -Mental status has improved -Twitching has also stabilized -SNF placement -DVT ppx
[2017-05-31] MEDS: LACOSAMIDE 10 MG/1 ML PEG SCH (10:11)
[2017-05-31] MEDS: METOPROLOL TARTRATE 25 MG TABLET (FP) PEG SCH ×2 (10:12→23:10)
[2017-05-31] MEDS: VALPROATE SODIUM 250 MG/5 ML UNIT DOSE CUP PEG SCH ×2 (10:12→23:04)
[2017-05-31] MEDS: ASPIRIN 81 MG CHEWABLE TABLETS PO SCH (10:12)
[2017-05-31] MEDS: ENOXAPARIN NA (PORCINE) 40 MG/0.4 ML DISP.SYRIN SQ SCH (10:13)
[2017-05-31] MEDS: levETIRAcetam 500 MG/5 ML ORAL SOLUTION (UNIT-DOSE CUPS) PEG SCH ×2 (10:13→23:03)
--- NOTE | 2017-05-31 13:10 | PN ---
Physical Exam: SUBJECTIVE: Patient seen and examined at bedside. No interval change from yesterday. OBJECTIVE: Vital Signs Period Temp Pulse Resp BP Sys/Levine Pulse Ox Last 24 Hr 97.3 F-99.6 F 73-85 18-20 92-147/56-99 97 GENERAL: The patient is awake, not alert or oriented. EYES: PERRL, extraocular movements intact, sclera anicteric, conjunctiva clear. No ptosis. ENT: Ears normal, nares patent, oropharynx clear without exudates, moist mucous membranes. NECK: Trachea midline, full range of motion, supple. LUNGS: Breath sounds equal, clear to auscultation bilaterally, no wheezes, no crackles, no accessory muscle use. HEART: Regular rate and rhythm, S1, S2 without murmur, rub or gallop. ABDOMEN: Soft, nontender, nondistended, normoactive bowel sounds, no guarding, no rebound, no hepatosplenomegaly, no masses. Active Medications Generic Name Dose Route Start Last Admin Trade Name Freq PRN Reason Stop Dose Admin Acetaminophen 650 mg 05/02/17 06:48 Tylenol - PO Q6H PRN FEVER OR PAIN Amino Acids 30 ml 05/18/17 08:15 05/31/17 08:24 Prosource No Carb Liquid Pkt PO 30 ml BID@0800,1730 [facility] Administration Aspirin 81 mg 05/14/17 10:00 05/31/17 10:12 Asa - PO 81 mg DAILY [facility] Administration Enoxaparin Sodium 40 mg 05/18/17 10:00 05/31/17 10:13 Lovenox - SQ 40 mg DAILY [facility] Administration Lacosamide 100 mg 05/31/17 11:51 Vimpat Liquid - PEG BID [facility] Levetiracetam 1,000 mg 05/27/17 12:30 05/31/17 10:13 Keppra Oral Solution - PEG 1,000 mg BID [facility] Administration Metoprolol Tartrate 12.5 mg 05/27/17 22:00 05/31/17 10:12 Lopressor - PEG 12.5 mg BID [facility] Administration Rosuvastatin Calcium 40 mg 05/02/17 22:00 05/30/17 23:13 Crestor - PO 40 mg HS [facility] Administration Senna 1 tab 05/02/17 22:00 05/30/17 23:13 Senna - PO 1 tab HS [facility] Administration Valproate Sodium 1,250 mg 05/27/17 12:00 05/31/17 10:12 Depakene - PEG 1,250 mg BID [facility] Administration ASSESSMENT/PLAN: 66 year old female w/ hx of alcohol abuse presented to the ED after being found on the floor by her , hospitalized, on day 40 for L temporal/parietal CVA and seizures, acute inferior wall CO 1. Dysphagia: patient has poor PO intake; PEG placed -s/p PEG (Dr. Santoro) -continue tube feeds 2. Lethargy: her lethargy waxes and wanes, could be lethargic and unresponsive to commands and several hours later be oriented -today patient was not alert and oriented -no signs of any acute cause or infection -continue to monitor 3. CVA: slightly improved R hemiparesis and R upper extremity myoclonic jerks -continue aspirin 81mg -continue crestor 40mg 4. Seizures: patient continues to have myoclonic movements of her right upper extremity -patient is on klonopin, which has been effective, continue medication -switch seizure meds to IV - keppra 1000 BID, depakene 1250 bid and Vimpat 100 bid 5. R shoulder cyst: ultrasound revealed a cystic mass with dimensions 2.3 x 2.2x 1 centimeters -patient received an I&D on 05/18 and pathology revealed normal skin michael -patient is not currently receiving antibiotics 6. Acute Inferior Wall CO: currently managed medically, no other intervention required -continue aspirin -continue crestor 7. Hypomagnesemia: previously resolved 8. Hypokalemia: resolved -monitor K and Mg in the AM 9. UTI: resolved 10. FEN -patient is on KCl 20meq in dextrose/NS @75/hr -electrolytes stable, measure CMP in AM -continue dysphagia puree diet 11. Prophylaxis -cont lovenox 40mg QD 12. Dyspo: -Pending insurance acceptance of nursing facility placement Problem List - Problems (1) NICOLÁS (acute kidney injury) Code(s): N17.9 - ACUTE KIDNEY FAILURE, UNSPECIFIED (2) Abscess Code(s): L02.91 - CUTANEOUS ABSCESS, UNSPECIFIED (3) CVA (cerebral vascular accident) Code(s): I63.9 - CEREBRAL INFARCTION, UNSPECIFIED Qualifiers: CVA mechanism: unspecified Qualified Code(s): I63.9 - Cerebral infarction, unspecified; I63.9 - Cerebral infarction, unspecified; I63.9 - Cerebral infarction, unspecified; I63.9 - Cerebral infarction, unspecified (4) STEMI (ST elevation myocardial infarction) Code(s): I21.3 - ST ELEVATION (STEMI) MYOCARDIAL INFARCTION OF UNSP SITE Qualifiers: Involved coronary artery: LAD coronary artery Qualified Code(s): I21.02 - ST elevation (STEMI) myocardial infarction involving left anterior descending coronary artery; I21.02 - ST elevation (STEMI) myocardial infarction involving left anterior descending coronary artery; I21.02 - ST elevation (STEMI ) myocardial infarction involving left anterior descending coronary artery; I21.02 - ST elevation (STEMI) myocardial infarction involving left anterior descending coronary artery (5) Seizure Code(s): R56.9 - UNSPECIFIED CONVULSIONS (6) UTI (urinary tract infection) Code(s): N39.0 - URINARY TRACT INFECTION, SITE NOT SPECIFIED Qualifiers: Urinary tract infection type: acute cystitis Hematuria presence: without hematuria Qualified Code(s): N30.00 - Acute cystitis without hematuria; N30.00 - Acute cystitis without hematuria Visit type - Emergency Visit Emergency Visit: No - New Patient This patient is new to me today: No - Critical Care Critical Care patient: No
--- NOTE | 2017-05-31 17:55 | PN ---
Teaching Attending Note Name of Resident: Brian Paz ATTENDING PHYSICIAN STATEMENT I saw and evaluated the patient. I reviewed the resident's note and discussed the case with the resident. I agree with the resident's findings and plan as documented. SUBJECTIVE: Patient appears comfortable. OBJECTIVE: Vital Signs Period Temp Pulse Resp BP Sys/Levine Pulse Ox Last 24 Hr 98.3 F-99.6 F 80-85 18-20 105-147/67-99 97-98 HEART: S1S2, RRR LUNGS: Clear ABDOMEN: Soft, non-distended, normal BS, PEG in place EXTREMITIES: No edema Current Medications Generic Name Dose Route Start Last Admin Trade Name Freq PRN Reason Stop Dose Admin Acetaminophen 650 mg 05/02/17 06:48 Tylenol - PO Q6H PRN FEVER OR PAIN Amino Acids 30 ml 05/18/17 08:15 05/31/17 17:28 Prosource No Carb Liquid Pkt PO 30 ml BID@0800,1730 [facility] Administration Aspirin 81 mg 05/14/17 10:00 05/31/17 10:12 Asa - PO 81 mg DAILY [facility] Administration Lacosamide 100 mg 05/31/17 11:51 Vimpat Liquid - PEG BID [facility] Levetiracetam 1,000 mg 05/27/17 12:30 05/31/17 10:13 Keppra Oral Solution - PEG 1,000 mg BID [facility] Administration Metoprolol Tartrate 12.5 mg 05/27/17 22:00 05/31/17 10:12 Lopressor - PEG 12.5 mg BID [facility] Administration Rosuvastatin Calcium 40 mg 05/02/17 22:00 05/30/17 23:13 Crestor - PO 40 mg HS [facility] Administration Senna 1 tab 05/02/17 22:00 05/30/17 23:13 Senna - PO 1 tab HS [facility] Administration Valproate Sodium 1,250 mg 05/27/17 12:00 05/31/17 10:12 Depakene - PEG 1,250 mg BID [facility] Administration ASSESSMENT AND PLAN: This is a 66 year old woman with a history of alcohol abuse who presented to the ER after being found on the floor by her . 1. 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 Seizures, myoclonic movements of right side - Continue Keppra, Depakene, Vimpat 3. Acute inferior wall STEMI - Echo shows normal LV, normal RV - Continue medical management - Continue aspirin, Lopressor, Crestor 4. Posterior right shoulder sebaceous cyst - s/p incision and drainage 05/18 5. Acute kidney injury likely secondary to dehydration - Resolved 6. Alcohol abuse 7. Rhabdomyolsis - Resolved 8. Polycythemia secondary to dehydration - Resolved 9. E. coli UTI - Completed Rocephin 10. Nutrition - Continue dysphagia diet, Jevity via PEG, Prosource
[2017-05-31] MEDS ORDERED: ROSUVASTATIN CA 10 MG TABLET (FP) ONE (19:58)
[2017-05-31] MEDS: ROSUVASTATIN CA 20 MG TABLET (FP) PO SCH (23:02)
[2017-05-31] MEDS: SENNOSIDES 8.6MG TABLET (FP) PO SCH (23:05)
[2017-05-31] MEDS: Lacosamide 50 MG/5 ML ORAL SOLUTION UNIT CUPS PEG SCH (23:10)
--- NOTE | 2017-06-01 08:33 | PN ---
Physical Exam: SUBJECTIVE: Patient seen and examined at bedside. No interval change from yesterday. OBJECTIVE: Vital Signs - 8 hr 06/01/17 07:34 Temperature 98.2 F Pulse Rate 85 Respiratory 20 Rate Blood Pressure 92/57 GENERAL: The patient is awake, not alert or oriented. EYES: PERRL, extraocular movements intact, sclera anicteric, conjunctiva clear. No ptosis. ENT: Ears normal, nares patent, oropharynx clear without exudates, moist mucous membranes. NECK: Trachea midline, full range of motion, supple. LUNGS: Breath sounds equal, clear to auscultation bilaterally, no wheezes, no crackles, no accessory muscle use. HEART: Regular rate and rhythm, S1, S2 without murmur, rub or gallop. ABDOMEN: Soft, nontender, nondistended, normoactive bowel sounds, no guarding, no rebound, no hepatosplenomegaly, no masses. Active Medications Acetaminophen (Tylenol Oral Solution -) 650 mg PEG Q6H PRN PRN Reason: FEVER OR PAIN Amino Acids (Prosource No Carb Liquid Pkt) 30 ml PEG BID@0800,1730 [facility] Last Admin: 06/01/17 10:12 Dose: 30 ml Aspirin (Asa -) 81 mg PEG DAILY [facility] Last Admin: 06/01/17 10:00 Dose: 81 mg Emollient Ointment (Aquaphor -) 1 applic TP BID PRN PRN Reason: DRYNESS Enoxaparin Sodium (Lovenox -) 40 mg SQ DAILY [facility] Last Admin: 06/01/17 10:00 Dose: 40 mg Lacosamide (Vimpat Liquid -) 100 mg PEG BID [facility] Last Admin: 05/31/17 23:10 Dose: 100 mg Levetiracetam (Keppra Oral Solution -) 1,000 mg PEG BID [facility] Last Admin: 06/01/17 10:00 Dose: 1,000 mg Metoprolol Tartrate (Lopressor -) 12.5 mg PEG BID [facility] Last Admin: 06/01/17 09:50 Dose: Not Given Rosuvastatin Calcium (Crestor -) 40 mg NR HS [facility] Senna (Senna Oral Solution -) 8.8 mg PEG HS [facility] Valproate Sodium (Depakene -) 1,250 mg PEG BID [facility] Last Admin: 06/01/17 10:01 Dose: 1,250 mg CBC, BMP 10/29/17 06:00 06/01/17 07:00 ASSESSMENT/PLAN: 66 year old female w/ hx of alcohol abuse presented to the ED after being found on the floor by her , hospitalized, on day 41 for L temporal/parietal CVA and seizures, acute inferior wall MT 1. Dysphagia: patient has poor PO intake; PEG placed -s/p PEG (Dr. Santoro) -continue tube feeds as per dietary note 2. Lethargy: her lethargy waxes and wanes, could be lethargic and unresponsive to commands and several hours later be oriented -today patient was not alert and oriented -no signs of any acute cause or infection -continue to monitor 3. CVA: slightly improved R hemiparesis and R upper extremity myoclonic jerks -continue aspirin 81mg -continue crestor 40mg 4. Seizures: patient continues to have myoclonic movements of her right upper extremity -patient is on klonopin, which has been effective, continue medication -switch seizure meds to IV - keppra 1000 BID, depakene 1250 bid and Vimpat 100 bid 5. R shoulder cyst: ultrasound revealed a cystic mass with dimensions 2.3 x 2.2x 1 centimeters -patient received an I&D on 05/18 and pathology revealed normal skin michael -patient is not currently receiving antibiotics 6. Acute Inferior Wall MT: currently managed medically, no other intervention required -continue aspirin -continue crestor 7. Hypomagnesemia: previously resolved 8. Hypokalemia: resolved -monitor K and Mg in the AM 9. UTI: resolved 10. FEN -No standing fluid -electrolytes stable, measure CMP in AM -continue dysphagia puree diet 11. Prophylaxis -cont lovenox 40mg QD 12. Dyspo: -Pending insurance acceptance of nursing facility placement Problem List - Problems (1) NICOLÁS (acute kidney injury) Code(s): N17.9 - ACUTE KIDNEY FAILURE, UNSPECIFIED (2) Abscess Code(s): L02.91 - CUTANEOUS ABSCESS, UNSPECIFIED (3) CVA (cerebral vascular accident) Code(s): I63.9 - CEREBRAL INFARCTION, UNSPECIFIED Qualifiers: CVA mechanism: unspecified Qualified Code(s): I63.9 - Cerebral infarction, unspecified; I63.9 - Cerebral infarction, unspecified; I63.9 - Cerebral infarction, unspecified; I63.9 - Cerebral infarction, unspecified (4) STEMI (ST elevation myocardial infarction) Code(s): I21.3 - ST ELEVATION (STEMI) MYOCARDIAL INFARCTION OF UNSP SITE Qualifiers: Involved coronary artery: LAD coronary artery Qualified Code(s): I21.02 - ST elevation (STEMI) myocardial infarction involving left anterior descending coronary artery; I21.02 - ST elevation (STEMI) myocardial infarction involving left anterior descending coronary artery; I21.02 - ST elevation (STEMI ) myocardial infarction involving left anterior descending coronary artery; I21.02 - ST elevation (STEMI) myocardial infarction involving left anterior descending coronary artery (5) Seizure Code(s): R56.9 - UNSPECIFIED CONVULSIONS (6) UTI (urinary tract infection) Code(s): N39.0 - URINARY TRACT INFECTION, SITE NOT SPECIFIED Qualifiers: Urinary tract infection type: acute cystitis Hematuria presence: without hematuria Qualified Code(s): N30.00 - Acute cystitis without hematuria; N30.00 - Acute cystitis without hematuria Visit type - Emergency Visit Emergency Visit: No - New Patient This patient is new to me today: No - Critical Care Critical Care patient: No
[2017-06-01 08:51] LABS: ANION GAP 6 (8-16); CALCIUM 8.4 mg/dL (8.5-10.1); CO2 30 mmol/L (21-32); CREATININE 0.8 mg/dL (0.55-1.02); GLUCOSE,RANDOM 134 mg/dL (74-106); MAGNESIUM 2.2 mg/dL (1.8-2.4); PHOSPHOROUS 3.7 mg/dL (2.5-4.9)
[2017-06-01] MEDS ORDERED: ACETAMINOPHEN 650 MG/20.3 ML ORAL SOLUTION (CUPS) PO PRN (08:57)
[2017-06-01] MEDS: AMINO ACIDS/PROTEIN HYDROLYS 30 ML LIQUID.PKT PO SCH (09:08)
[2017-06-01] MEDS ORDERED: MINERAL OIL/PET HY-PHL TOPICAL OINTMENT 454 GM JAR TP PRN (09:32)
[2017-06-01] MEDS: METOPROLOL TARTRATE 25 MG TABLET (FP) PEG SCH (09:50)
[2017-06-01] MEDS ORDERED: PT OWN MED DRAWER 7, Y5N ONE (09:58)
[2017-06-01] MEDS: levETIRAcetam 500 MG/5 ML ORAL SOLUTION (UNIT-DOSE CUPS) PEG SCH (10:00)
[2017-06-01] MEDS ORDERED: AMINO ACIDS/PROTEIN HYDROLYS 30 ML LIQUID.PKT PO SCH (10:00)
[2017-06-01] MEDS ORDERED: MINERAL OIL/PET HY-PHL TOPICAL OINTMENT 454 GM JAR TP SCH (10:00)
[2017-06-01] MEDS ORDERED: ASPIRIN 81 MG CHEWABLE TABLETS PEG SCH (10:00)
[2017-06-01] MEDS ORDERED: ENOXAPARIN NA (PORCINE) 40 MG/0.4 ML DISP.SYRIN SQ SCH ×2 (10:00)
[2017-06-01] MEDS: VALPROATE SODIUM 250 MG/5 ML UNIT DOSE CUP PEG SCH (10:01)
[2017-06-01] MEDS ORDERED: ACETAMINOPHEN 650 MG/20.3 ML ORAL SOLUTION (CUPS) PEG PRN (10:05)
[2017-06-01] MEDS ORDERED: AMINO ACIDS/PROTEIN HYDROLYS 30 ML LIQUID.PKT PEG SCH (10:15)
--- NOTE | 2017-06-01 10:36 | PN ---
Progress Note (short form) - Note Progress Note: Neurology This is a female of unknown age and name with unknown medical history who presented BIBA after her called 911 because she had fallen on the floor and was not able to pick herself up after being on the floor for reportedly 24 hours. EMS states that the patient was laying on the carpeted floor on their arrival on scene at her home. The explained that he found her on the floor and she said she felt fine, so he did not call 911 until he saw her in the same place on the floor therafter. The patient was minimally responsive in the ED but able to state she was having left-sided weakness for the past three days which is what caused her to fall but thought it would pass and did not come to the hospital. She was out of TPA window. MRI completed and showed subacute infarcts L temporal/parietal, L thalamic and she does have right sided deficits. There was some facial twitching and patient put on Keppra, increased to 1000mg twice a day, Vimpat also started 100mg twice daily, Depakote also started with good control. Patient on ASA 81mg. CD without hemodynamically significant stenosis, Echo complete and LV function normal. Completed Abx for UTI. Had R shoulder abcess, Was incised and drained. Completed PEG and in place. No neurologic issues overnight and awaiting transfer to SNF. Remains neurologically stable. Twitching has resolved but occasionally recur briefly. Active Medications Acetaminophen (Tylenol Oral Solution -) 650 mg PEG Q6H PRN PRN Reason: FEVER OR PAIN Amino Acids (Prosource No Carb Liquid Pkt) 30 ml PEG BID@0800,1730 [facility] Last Admin: 06/01/17 10:12 Dose: 30 ml Aspirin (Asa -) 81 mg PEG DAILY [facility] Last Admin: 06/01/17 10:00 Dose: 81 mg Emollient Ointment (Aquaphor -) 1 applic TP BID PRN PRN Reason: DRYNESS Enoxaparin Sodium (Lovenox -) 40 mg SQ DAILY [facility] Last Admin: 06/01/17 10:00 Dose: 40 mg Lacosamide (Vimpat Liquid -) 100 mg PEG BID [facility] Last Admin: 05/31/17 23:10 Dose: 100 mg Levetiracetam (Keppra Oral Solution -) 1,000 mg PEG BID [facility] Last Admin: 06/01/17 10:00 Dose: 1,000 mg Metoprolol Tartrate (Lopressor -) 12.5 mg PEG BID [facility] Last Admin: 06/01/17 09:50 Dose: Not Given Rosuvastatin Calcium (Crestor -) 40 mg NR HS [facility] Senna (Senna Oral Solution -) 8.8 mg PEG HS [facility] Valproate Sodium (Depakene -) 1,250 mg PEG BID [facility] Last Admin: 06/01/17 10:01 Dose: 1,250 mg *Physical Exam Vital Signs Temperature 98.2 F 06/01/17 07:34 Pulse Rate 85 06/01/17 07:34 Respiratory Rate 20 06/01/17 07:34 Blood Pressure 92/57 06/01/17 07:34 O2 Sat by Pulse Oximetry (%) 98 05/31/17 21:00 - Physical Exam HEENT: positive: Hearing Grossly Normal, Neck: positive: Trachea midline, Supple. negative: Tender, Rigid Respiratory/Chest: positive: Lungs Clear, Normal Breath Sounds. negative: Respiratory Distress, Crackles, Rhonchi, Stridor, Wheezing Cardiovascular: positive: Regular Rhythm, Regular Rate. negative: Murmur Gastrointestinal/Abdominal: positive: Normal Bowel Sounds, Soft. negative: Tender, Organomegaly, Pulsatile Mass, Guarding Musculoskeletal: positive: Normal Inspection. negative: Decreased Range of Motion, Vertebral Tenderness Extremity: positive: Normal Capillary Refill, Normal Inspection, Normal Range of Motion. negative: Tender, Cyanosis Integumentary: positive: Normal Color, Dry, Warm. negative: Erythema, Rash, Bruising Neurologic: Limited exam, not participating in full confrontation, move LUE slight more than right, 3+/5 on R, 2/5 on L, tactile stimulation intact but limited on R, gait deferred CBCD WBC 7.9 K/mm3 (4.0-10.0) 05/29/17 06:00 RBC 3.61 M/mm3 (3.60-5.2) 05/29/17 06:00 Hgb 10.9 GM/dL (10.7-15.3) 05/29/17 06:00 Hct 31.7 % (32.4-45.2) L 05/29/17 06:00 MCV 87.6 fl (80-96) 05/29/17 06:00 MCHC 34.3 g/dl (32.0-36.0) 05/29/17 06:00 RDW 15.5 % (11.6-15.6) 05/29/17 06:00 Plt Count 86 K/MM3 (134-434) L 05/29/17 06:00 MPV 9.1 fl (7.5-11.1) 05/29/17 06:00 CMP Sodium 136 mmol/L (136-145) 06/01/17 07:00 Potassium 3.8 mmol/L (3.5-5.1) 06/01/17 07:00 Chloride 100 mmol/L (98-107) 06/01/17 07:00 Carbon Dioxide 30 mmol/L (21-32) 06/01/17 07:00 Anion Gap 6 (8-16) L 06/01/17 07:00 BUN 23 mg/dL (7-18) H D 06/01/17 07:00 Creatinine 0.8 mg/dL (0.55-1.02) 06/01/17 07:00 Creat Clearance w eGFR > 60 (>60) 05/27/17 09:18 Calcium 8.4 mg/dL (8.5-10.1) L 06/01/17 07:00 Total Bilirubin 0.4 mg/dL (0.2-1.0) D 05/27/17 09:18 AST 13 U/L (15-37) L D 05/27/17 09:18 ALT 12 U/L (12-78) 05/27/17 09:18 Alkaline Phosphatase 77 U/L (45-117) 05/27/17 09:18 Total Protein 6.9 g/dl (6.4-8.2) 05/27/17 09:18 Albumin 2.2 g/dl (3.4-5.0) L 05/27/17 09:18 - RADIOLOGY MRI brain reviewed CT head repeated and reviewed CD, echo reviewed Medical Decision Making female of unknown age and name with unknown medical history who presented BIBA after her called 911 because she had fallen on the floor and was not able to pick herself up after being on the floor for reportedly 24 hours. EMS states that the patient was laying on the carpeted floor on their arrival on scene at her home. The explained that he found her on the floor and she said she felt fine, so he did not call 911 until he saw her in the same place on the floor therafter. The patient was minimally responsive in the ED but able to state she was having left-sided weakness for the past three days which is what caused her to fall but thought it would pass and did not come to the hospital. There was a question of generalized seizure and positive troponins. CT head completed and did not show acute changes. MRI demonstrated subacute infarcts L temporal/parietal, L thalamic CVA. -Patient on Keppra for seizures, getting 1000mg twice daily, -Vimpat 100mg twice daily and Depakote increased to 1250mg twice daily can be continued, -Klonipin at 0.25mg has been helpful, sedation issue currently, held and likely will not need to restart as twitching stabilized -Continue ASA -PEG completed and no issues, tolerating tube feeds -BP control, goal < 160/90 for now, < 140/90 as outpatient -PT/OT as tolerated -Mental status has improved, continue to monitor -Twitching has also stabilized, continue to monitor -SNF placement -DVT ppx
[2017-06-01] MEDS: Lacosamide 50 MG/5 ML ORAL SOLUTION UNIT CUPS PEG SCH (10:57)
--- NOTE | 2017-06-01 13:32 | PN ---
Progress Note, [employer]GE - Note Progress Note: PEG inserted and TF ordered. Pending transfer to [place] if TF tolerated. PO acceptance is intermittent, with pt holding food in her mouth secondary to Apraxia. Continue to mix puree into soup, milk or ensure if pt is holding food orally. Feed only when sufficiently awake, palpate larynx for reflex and verbally cue pt to swallow. Alternate puree with liquid and finish meal with liquid. Selected Entries 05/25/17 05/25/17 05/25/17 06:00 11:34 15:21 Breakfast Lunch Supper Temperature 98.4 F 98.5 F 98.1 F 05/25/17 05/25/17 05/26/17 17:06 22:00 06:00 Breakfast Lunch Supper Temperature 98.4 F 98.8 F 98.5 F 05/26/17 05/26/17 05/26/17 10:00 14:50 16:20 Breakfast Lunch Supper Temperature 98.1 F 98.3 F 98.2 F 05/26/17 05/26/17 05/31/17 18:30 22:00 10:59 Breakfast 25% Lunch Supper NPO Temperature 99 F 05/31/17 05/31/17 06/01/17 15:12 18:04 11:34 Breakfast 0 Lunch 25% Supper 0 Temperature Laboratory Tests 05/27/17 09:18 WBC 9.6 Suggest PEG be used to supplement PO intake, with goal for possible weaning from PEG feedings if pt improves. Suggest RD consult regarding coordination of PO and GT intake.
[2017-06-01 15:01] VITALS: BP 96/59; PULSE 58; TEMP 99
--- NOTE | 2017-06-01 15:29 | PN ---
Teaching Attending Note Name of Resident: Brian Paz ATTENDING PHYSICIAN STATEMENT I saw and evaluated the patient. I reviewed the resident's note and discussed the case with the resident. I agree with the resident's findings and plan as documented. SUBJECTIVE:resting comfortable. refusing to answer my questions OBJECTIVE: Last Vital Signs Temp Pulse Resp BP Pulse Ox 99.0 F 58 L 20 96/59 98 06/01/17 10:00 06/01/17 10:00 06/01/17 10:00 06/01/17 10:00 05/31/17 21:00 General NAD, no myotonic twitching ASSESSMENT AND PLAN: 66 yo F with PMH alcohol abuse who presented to the ER after being found on the floor by her . 1. 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 s/p PEG. tolerating PEG feeds. on asa/crestor. cont PT and speech therapy. 2. Seizures, myoclonic movements of right side- none noted today. Continue Keppra, Depakene, Vimpat 3. Acute inferior wall STEMI- medically managed. not candidate for ischemia workup at this time. on asa/lopressor/crestor 4. Posterior right shoulder sebaceous cyst- s/p incision and drainage 05/18 5. Acute kidney injury likely secondary to dehydration- Resolved 6. Alcohol abuse 7. Rhabdomyolsis- Resolved 8. Polycythemia secondary to dehydration- Resolved 9. E. coli UTI- Completed Rocephin 10. d/c to [facility]
[2017-06-01] MEDS ORDERED: ROSUVASTATIN CA 20 MG TABLET (FP) NR SCH ×2 (22:00)
[2017-06-01] MEDS ORDERED: SENNOSIDES 8.8 MG/5 ML BULK BOTTLE PEG SCH (22:00)
[2017-06-01] MEDS ORDERED: SENNOSIDES 8.8 MG/5 ML BULK BOTTLE PO SCH (22:00)
== END 2017-06-01 15:12 | DRG 951 ==
LOC: JER 18:53 → JERBED 04-21 00:38 → EDBD 04-21 00:38 → UNDOADMIN 04-21 00:44 → JERBED 04-21 00:44 → JICU 04-21 01:37 → J4W 04-22 16:57 → J8W 05-01 20:02
PROVIDERS: ADMIT Internal Medicine; ATTEND Internal Medicine
PROC: 0R9J0ZZ Drainage of Right Shoulder Joint, Open Approach (ICD-10-PCS; 2017-05-18)
PROC: 3E0G76Z Introduction of Nutritional Substance into Upper GI, Via Natural or Artificial Opening (ICD-10-PCS; 2017-05-26)
PROC: 0DJ08ZZ Inspection of Upper Intestinal Tract, Via Natural or Artificial Opening Endoscopic (ICD-10-PCS; 2017-05-26)
PROC: 0DH63UZ Insertion of Feeding Device into Stomach, Percutaneous Approach (ICD-10-PCS; principal; 2017-05-26 12:30)
DX: I63.9 Cerebral infarction, unspecified (principal); I21.19 ST elevation (STEMI) myocardial infarction involving other coronary artery of inferior wall; N17.9 Acute kidney failure, unspecified; E87.2 Acidosis; G81.91 Hemiplegia, unspecified affecting right dominant side; G92 Toxic encephalopathy; A41.9 Sepsis, unspecified organism; D75.1 Secondary polycythemia; M62.82 Rhabdomyolysis; E83.39 Other disorders of phosphorus metabolism; N39.0 Urinary tract infection, site not specified; R62.7 Adult failure to thrive; R47.01 Aphasia; G40.409 Other generalized epilepsy and epileptic syndromes, not intractable, without status epilepticus; E83.42 Hypomagnesemia; E87.8 Other disorders of electrolyte and fluid balance, not elsewhere classified; E86.0 Dehydration; F10.10 Alcohol abuse, uncomplicated; E87.6 Hypokalemia; R29.709 NIHSS score 9; B96.20 Unspecified Escherichia coli [E. coli] as the cause of diseases classified elsewhere; L02.413 Cutaneous abscess of right upper limb; D64.9 Anemia, unspecified; L72.3 Sebaceous cyst
CPT/HCPCS: 36415; 70450-TC; 70544-TC; 70547-TC; 70551-TC; 71010-TC; 72125-TC; 72192-TC; 73502-TC-RT; 73560-TC-RT; 74000-TC; 76604; 80048; 80053; 80061; 80307; 81003; 81015; 82040; 82553; 83605; 83721; 83735; 84100; 84484; 85025; 85027; 85610; 85730; 87040; 87070; 87077; 87086; 87186; 87205; 90670; 90688; 93005; 93010; 93306-TC; 93880-TC; 95816; 97161-GP; 99285-25; C9254; G0008; G0009

== ENCOUNTER 2017-07-13 18:45 | Emergency (ER) | payer OTHER ==
[2017-07-13 19:01] VITALS: BP 107/80; PULSE 77; TEMP 99.2; BMI 21.8
--- NOTE | 2017-07-13 20:29 | PDOC ---
History of Present Illness - General Chief Complaint: G Tube Problem Stated Complaint: G-TUBE PROBLEM Time Seen by Provider: 07/13/17 19:41 - History of Present Illness Initial Comments: 07/13/17 20:22 CHIEF COMPLAINT: HISTORY OF PRESENT ILLNESS: 66 yo F with hx of seizure disorder, HLD, recurrent falls, TIA, dysphagia, HTN, s/p g-tube placement (05/26/17) sent to ED by [facility] for g-tube placement confirmation. Patient is a poor historian but per chart notes KUB indicated that tip of g-tube was overlying right upper abdomen. Patient was sent for KUB with contrast. PAST MEDICAL HISTORY: as per HPI FAMILY HISTORY: Denies SOCIAL HISTORY: Denies tobacco, alcohol, illicit drug use. SURGICAL HISTORY: Denies ALLERGIES: No known drug allergies REVIEW OF SYSTEMS General/Constitutional: Denies fever or chills. Denies weakness, weight change. HEENT: Denies change in vision. Denies ear pain or discharge. Denies sore throat. Cardiovascular: Denies chest pain or shortness of breath. Respiratory: Denies cough, wheezing, or hemoptysis. Gastrointestinal: Denies nausea, vomiting, diarrhea or constipation. Denies rectal bleeding. Genitourinary: Denies dysuria, frequency, or change in urination. Musculoskeletal: Denies joint or muscle swelling or pain. Denies neck or back pain. Skin and breasts: Denies rash or easy bruising. Neurologic: Denies headache, vertigo, loss of consciousness, or loss of sensation. Psychiatric: Denies depression or anxiety. Endocrine: Denies increased thirst. Denies abnormal weight change. Hematologic/Lymphatic: Denies anemia, easy bleeding, or history of blood clots. Allergic/Immunologic: Denies hives or skin allergy. Denies latex allergy. PHYSICAL EXAM General Appearance: Well-appearing, appropriately dressed. No apparent distress , no intoxication. HEENT: EOMI, PERRLA, normal ENT inspection, normal voice, TMs normal, pharynx normal. No conjunctival pallor. No photophobia, scleral icterus. Neck: Supple. Trachea midline. No tenderness, rigidity, carotid bruit, stridor , lymphadenopathy, or thyromegaly. Respiratory/Chest: Lungs CTAB. No shortness of breath, chest tenderness, respiratory distress, accessory muscle use. No crackles, rales, rhonchi, stridor , wheezing, dullness Cardiovascular: RRR. S1, S2. No JVD, murmur, bradycardia, tachycardia. Vascular Pulses: Dorsalis-Pedis (R): 2+, Dorsalis-Pedis (L): 2+ Gastrointestinal/Abdominal: Normal bowel sounds. Abdomen soft, non-distended. No tenderness or rebound tenderness. No organomegaly, pulsatile mass, guarding , hernia, hepatomegaly, splenomegaly. Lymphatic: No adenopathy, tenderness. Musculoskeletal/Extremities: Normal inspection. FROM of all extremities, normal capillary refill. Pelvis Stable. No CVA tenderness. No tenderness to extremities, pedal edema, swelling, erythema or deformity. Integumentary: Appropriate color, dry, warm. No cyanosis, erythema, jaundice or rash Neurologic: investment sales assistant II-XII intact. Fully oriented, alert. Appropriate mood/affect. Motor strength 5/5. No appreciable EOM palsy, facial droop or sensory deficit. 07/13/17 21:28 07/13/17 21:31 Past History - Past Medical History Allergies/Adverse Reactions: Allergies Allergy/AdvReac Type Severity Reaction Status Date / Time No Known Allergies Allergy Verified 07/13/17 19:02 Home Medications: Ambulatory Orders Amino Acids/Protein Hydrolys [Prosource No Carb Liquid Pkt] 30 ml PO BID@0800, 1730 #60 packet 05/27/17 Aspirin [ASA -] 81 mg PO DAILY 30 Days tab.chew 05/27/17 Clonazepam [Klonopin -] 0.25 mg PO BID #30 tablet MDD 0.5 05/27/17 Lacosamide Liquid [Vimpat Liquid -] 100 mg PEG BID #60 bottle MDD 200 05/27/17 Metoprolol Tartrate [Lopressor -] 12.5 mg PEG BID tablet 05/27/17 Rosuvastatin [Crestor -] 40 mg PO HS 30 Days tablet 05/27/17 Sennosides [Senna -] 1 tab PO HS #30 tablet 05/27/17 Valproate Sodium [Depakene -] 1,250 mg PEG BID #60 bottle 05/27/17 Anemia: Yes CVA: Yes (TIA dyspagia) COPD: No HTN: Yes Hypercholesterolemia: Yes Psychiatric Problems: Yes (depressive disorders) Seizures: Yes Other medical history: thiamine deficiency, generalized weakness. frequent falls - Suicide/Smoking/Psychosocial Hx Smoking History: Unknown if ever smoked Have you smoked in the past 12 months: No Information on smoking cessation initiated: No Hx Alcohol Use: No Drug/Substance Use Hx: No Substance Use Type: None Hx Substance Use Treatment: (unknown) *Physical Exam - Vital Signs Last Vital Signs Temp Pulse Resp BP Pulse Ox 99.2 F 77 18 107/80 100 07/13/17 18:45 07/13/17 18:45 07/13/17 18:45 07/13/17 18:45 07/13/17 18:45 ED Treatment Course - LABORATORY CBC & Chemistry Diagram: 07/13/17 20:50 07/13/17 20:50 - RADIOLOGY Radiology Studies Ordered: Category Date Time Status KUB (KID UR & BLAD) [RAD] Stat Radiology 07/13/17 20:21 Ordered Medical Decision Making - Medical Decision Making 07/13/17 23:27 66 yo F with hx of seizure disorder, HLD, recurrent falls, TIA, dysphagia, HTN , s/p g-tube placement (05/26/17) sent to ED by [facility] for g-tube placement confirmation. -CBC, CMP -KUB with contrast 07/13/17 23:28 Laboratory Tests 07/13/17 07/13/17 20:50 20:50 WBC 12.4 H D Sodium 149 H KUB results: A gastronomy tube is identified within the gastric lumen. Contrast opacification of the gastric lumen, duodenal cap, duodenal sweep, and proximal jejunum is noted. No gross contrast extravasation is identified. The gastrostomy tube tip appears to be positioned adjacent to the gastroesophageal junction. The initial radiograph obtained following contrast instillation demonstrates refluxed contrast within the partially imaged lower thoracic esophagus which subsequently clears on the second radiograph. Read by: Lawrence Gunderson MD Patient to be discharged to [place]. *DC/Admit/Observation/Transfer Diagnosis at time of Disposition: Problem with gastrostomy tube - Discharge Dispostion Disposition: [facility]ILITY Condition at time of disposition: Stable Admit: No - Referrals Referrals: Lyndon Akbar MD [Primary Care Provider] - - Patient Instructions - Post Discharge Activity
[2017-07-13 20:56] LABS: BASOPHIL 1.1 % (0-2.0); EOSINOPHIL 0.3 % (0-4.5); MCH 28.8 pg (25.7-33.7); MCHC 32.4 g/dl (32.0-36.0); MEAN CELL VOLUME 88.7 fl (80-96); MEAN PLT VOLUME 9.8 fl (7.5-11.1); NEUTROPHILS 63.6 % (42.8-82.8); PLATELET COUNT 259 K/MM3 (134-434); RDW 17.1 % (11.6-15.6); WHITE BLOOD COUNT 12.4 K/mm3 (4.0-10.0)
--- NOTE | 2017-07-13 21:24 | PDOC ---
*Physical Exam - Vital Signs Last Vital Signs Temp Pulse Resp BP Pulse Ox 99.2 F 77 18 107/80 100 07/13/17 18:45 07/13/17 18:45 07/13/17 18:45 07/13/17 18:45 07/13/17 18:45 ED Treatment Course - LABORATORY CBC & Chemistry Diagram: 07/13/17 20:50 07/13/17 20:50 - ADDITIONAL ORDERS Additional order review: 07/13/17 20:50 RBC 3.81 MCV 88.7 MCHC 32.4 RDW 17.1 H D MPV 9.8 Neutrophils % 63.6 Lymphocytes % 29.0 D Monocytes % 6.0 Eosinophils % 0.3 D Basophils % 1.1 Medical Decision Making - Medical Decision Making 07/13/17 21:24 agree with care from [facility] *DC/Admit/Observation/Transfer Diagnosis at time of Disposition: Problem with gastrostomy tube - Discharge Dispostion Disposition: [facility] Condition at time of disposition: Stable - Referrals Referrals: Lyndon Akbar MD [Primary Care Provider] - - Patient Instructions - Post Discharge Activity
[2017-07-13 21:26] LABS: ALBUMIN 3.1 g/dl (3.4-5.0); ALK PHOS 69 U/L (45-117); ANION GAP 11 (8-16); BILIRUBIN,TOTAL 0.5 mg/dL (0.2-1.0); CALCIUM 10.7 mg/dL (8.5-10.1); CO2 27 mmol/L (21-32); CREATININE 0.9 mg/dL (0.55-1.02); GLUCOSE,RANDOM 93 mg/dL (74-106); SGOT/AST 12 U/L (15-37); SGPT/ALT 12 U/L (12-78); TOT PROT 7.9 g/dl (6.4-8.2)
== END 2017-07-14 01:10 ==
LOC: JER 18:45
DX: K94.29 Other complications of gastrostomy (principal); I10 Essential (primary) hypertension; E78.5 Hyperlipidemia, unspecified; G40.909 Epilepsy, unspecified, not intractable, without status epilepticus; F39 Unspecified mood [affective] disorder; Z91.81 History of falling; I69.891 Dysphagia following other cerebrovascular disease; R13.19 Other dysphagia; Z79.82 Long term (current) use of aspirin
CPT/HCPCS: 36415; 74000-TC; 80053; 85025; 99282-25

== ENCOUNTER 2017-09-22 02:05 | Inpatient (IN) | payer OTHER ==
[2017-09-22 02:26] VITALS: BMI 23.3
[2017-09-22] MEDS ORDERED: ACETAMINOPHEN 1000 MG/100 ML VIAL (NON FORMULARY) IVPB ONE (02:49)
[2017-09-22] MEDS ORDERED: SODIUM CHLORIDE 1,000 ML IV STA ×3 (02:49→04:49)
--- NOTE | 2017-09-22 02:52 | PDOC ---
History of Present Illness - General History Source: [facility] Records - History of Present Illness Initial Comments: 09/22/17 02:55 The patient is a 66 year old female, with a significant past medical history of hyperlipidemia, frequent falls, epilepsy, anemia, TIA, dysphasia, and depression , who presents to the emergency department via EMS from [facility] for evaluation of altered mental status, tachypnea, and fever of 103F and rule out pneumonia as per [place] paperwork. Allergies: NKDA <Staci Ramires - Last Filed: 09/22/17 04:54> - General History Source: [facility] Records <Darien Rodriguez - Last Filed: 09/22/17 05:11> - General Chief Complaint: SIRS, Suspected/Possible Stated Complaint: FEVER Time Seen by Provider: 09/22/17 02:47 Past History <Staci Ramires - Last Filed: 09/22/17 04:54> - Suicide/Smoking/Psychosocial Hx Smoking History: Unknown if ever smoked Have you smoked in the past 12 months: No Information on smoking cessation initiated: No Hx Alcohol Use: No Drug/Substance Use Hx: No <Darien Rodriguez - Last Filed: 09/22/17 05:11> - Past Medical History Allergies/Adverse Reactions: Allergies Allergy/AdvReac Type Severity Reaction Status Date / Time No Known Allergies Allergy Verified 09/22/17 02:55 Review of Systems - Review of Systems Able to Perform ROS?: No (AMS) <Staci Ramires - Last Filed: 09/22/17 04:54> *Physical Exam - Vital Signs Last Vital Signs Temp Pulse Resp BP Pulse Ox 103.7 F H 128 H 14 104/71 94 L 09/22/17 02:16 09/22/17 02:16 09/22/17 02:16 09/22/17 02:16 09/22/17 02:16 - Physical Exam Comments: 09/22/17 02:57 GENERAL: (+) in mild distress. mildly confused. Well developed, well nourished. Awake. HEENT: (+) dry mucous membranes. Normocephalic, atraumatic. PERRLA, EOMI. No conjunctival pallor. Sclera are non-icteric. Oropharynx is clear. NECK: Supple. Full ROM. No JVD. Carotid pulses 2+ and symmetric, without bruits. No thyromegaly. No lymphadenopathy. CARDIOVASCULAR: (+) tachycardic rate with regular rhythm. diaphoretic. No murmurs, rubs, or gallops. Distal pulses are 2+ and symmetric. PULMONARY: (+) tachypneic. decreased breath sounds bilaterally. No wheezing, rales or rhonchi. ABDOMINAL: Soft. Non-tender. Non-distended. No rebound or guarding. No organomegaly. Normoactive bowel sounds. MUSCULOSKELETAL Normal range of motion at all joints. No bony deformities or tenderness. No CVA tenderness. EXTREMITIES: No cyanosis. No clubbing. No edema. No calf tenderness. SKIN: Warm and dry. Normal capillary refill. No rashes. No jaundice. NEUROLOGICAL: Alert, awake, appropriate. Cranial nerves 2-12 intact. Normoreflexic in the upper and lower extremities. Toes are down-going bilaterally. No focal neuro deficits. PSYCHIATRIC: Cooperative. Good eye contact. <Staci Ramires - Last Filed: 09/22/17 04:54> - Vital Signs Last Vital Signs Temp Pulse Resp BP Pulse Ox 103.7 F H 128 H 14 104/71 94 L 09/22/17 02:16 09/22/17 02:16 09/22/17 02:16 09/22/17 02:16 09/22/17 02:16 <Darien Rodriguez - Last Filed: 09/22/17 05:11> ED Treatment Course - LABORATORY CBC & Chemistry Diagram: 09/22/17 03:17 09/22/17 03:17 <Staci Ramires - Last Filed: 09/22/17 04:54> - LABORATORY CBC & Chemistry Diagram: 09/22/17 03:17 09/22/17 03:17 - RADIOLOGY Radiology Studies Ordered: Category Date Time Status CHEST X-RAY PORTABLE* [RAD] Stat Radiology 09/22/17 02:49 Ordered <Darien Rodriguez - Last Filed: 09/22/17 05:11> Medical Decision Making - Medical Decision Making 09/22/17 05:09 Dr. Rodriguez: The scribe's documentation has been prepared under my direction and personally reviewed by me in its entirery. I confirm that the note above accurately reflects all work, treatment, procedures, and medical decision making performed by me. patient accepted to ICU by [facility]. IVF and Abx given. awaiting UA results. <Darien Rodriguez - Last Filed: 09/22/17 05:11> *DC/Admit/Observation/Transfer - Attestations Scribe Attestion: 09/22/17 03:01 Documentation prepared by Staci Ramires, acting as medical science liaison for Darien Rodriguez DO. <Staci Ramires - Last Filed: 09/22/17 04:54> - Discharge Dispostion Admit: Yes <Darien Rodriguez - Last Filed: 09/22/17 05:11> Diagnosis at time of Disposition: Sepsis Qualifiers: Sepsis type: sepsis due to unspecified organism Qualified Code(s): A41.9 - Sepsis, unspecified organism - Discharge Dispostion Condition at time of disposition: Stable
[2017-09-22 03:25] LABS: BASO % 0.2 % (0-2.0); HEMATOCRIT 33.5 % (32.4-45.2); MCH 29.3 pg (25.7-33.7); MCHC 32.8 g/dl (32.0-36.0); MEAN CELL VOLUME 89.3 fl (80-96); MEAN PLT VOLUME 11.6 fl (7.5-11.1); MONO % 9.5 % (3.8-10.2); NEUT % 85.3 % (42.8-82.8); PLATELET COUNT 142 K/MM3 (134-434); RBC 3.75 M/mm3 (3.60-5.2); RDW 16.5 % (11.6-15.6); WHITE BLOOD COUNT 15.5 K/mm3 (4.0-10.0)
[2017-09-22] MEDS ORDERED: VANCOMYCIN 1,000 MG in DEXTROSE 5%-WATER - 250 ML IVPB ONE (03:29)
[2017-09-22] MEDS ORDERED: PIPERACILLIN/TAZOB 3.375 GM 50 ML IVPB ONE (03:30)
[2017-09-22 03:38] LABS: VENOUS PH 7.46 (7.32-7.42); VENOUS PO2 52.9 mmHg (28-48)
[2017-09-22 04:03] LABS: GLUCOSE,RANDOM 283 mg/dL (74-106)
[2017-09-22 04:04] LABS: ANION GAP 9 (8-16); BLOOD UREA NITROGEN 41 mg/dL (7-18); CHLORIDE 124 mmol/L (98-107); CO2 24 mmol/L (21-32); CREATININE 1.4 mg/dL (0.55-1.02); POTASSIUM 3.7 mmol/L (3.5-5.1); SODIUM 157 mmol/L (136-145)
[2017-09-22 04:05] LABS: ALBUMIN 2.4 g/dl (3.4-5.0); ALK PHOS 70 U/L (45-117); BILIRUBIN,TOTAL 0.4 mg/dL (0.2-1.0); CALCIUM 8.4 mg/dL (8.5-10.1); SGOT/AST 7 U/L (15-37); SGPT/ALT 8 U/L (12-78); TOT PROT 6.7 g/dl (6.4-8.2)
[2017-09-22 04:27] LABS: INR 1.28 (0.82-1.09); PROTHROMBIN TIME (PATIENT) 14.5 SEC (9.98-11.88)
[2017-09-22 04:30] LABS: ACTIVATED PTT 28.8 SECONDS (26.9-34.4)
[2017-09-22] MEDS ORDERED: IBUPROFEN 800 MG/8 ML IJ IVPB ONE (04:41)
[2017-09-22 05:29] LABS: URINE APPEARANCE SLCLOUDY; URINE BILIRUBIN NEGATIVE (NEGATIVE); URINE BLOOD NEGATIVE (NEGATIVE); URINE COLOR LTYELLOW; URINE GLUCOSE (UA) NEGATIVE (NEGATIVE); URINE KETONE NEGATIVE (NEGATIVE); URINE NITRITE NEGATIVE (NEGATIVE); URINE PROTEIN NEGATIVE (NEGATIVE); URINE UROBILINOGEN NEGATIVE mg/dL (0.2-1.0)
[2017-09-22 05:41] LABS: URINE LEUK ESTERASE 3+ (NEGATIVE)
[2017-09-22 05:42] LABS: EPI CELLS RARE /HPF (FEW); URINE BACTERIA MODERATE /hpf (NONE SEEN); URINE MUCUS RARE
[2017-09-22] MEDS ORDERED: SODIUM CHLORIDE 1,000 ML IV SCH (06:00)
--- NOTE | 2017-09-22 06:12 | HP ---
CHIEF COMPLAINT: Fever PCP: Dr. Akbar HISTORY OF PRESENT ILLNESS: The patient is a 66 yo f w/ PMH HLD, Epilepsy, anemia, CVA with residual right sided weakness was brought from [facility] for evaluation of altered mental status and fever. Per [facility] records, the patient had a fever to 103 as well as tachypnea. Patient is minimally responsive and unable to provide a history. ER course was notable for: (1) Fever to 102.7 (2) Vanc/zosyn (3) 1L bolus Recent Travel: none PAST MEDICAL HISTORY: same as HPI PAST SURGICAL HISTORY: Social History: Smoking: none Alcohol: none Drugs: none Family History: non-contributory Allergies No Known Allergies Allergy (Verified 09/22/17 02:55) HOME MEDICATIONS: REVIEW OF SYSTEMS Unable to obtain due to patient's clinical status PHYSICAL EXAMINATION Vital Signs - 24 hr 09/22/17 09/22/17 09/22/17 02:16 04:26 04:41 Temperature 103.7 F H 103.2 F H 102.7 F H Pulse Rate 128 H Respiratory 14 Rate Blood Pressure 104/71 O2 Sat by Pulse 94 L Oximetry (%) GENERAL: Minimally responsive to stimuli. Patient makes some effort to interact. Withdraws from pain. Patient diaphoretic. HEAD: Normal with no signs of trauma. EYES: Pupils equal, round and reactive to light, extraocular movements intact, sclera anicteric, conjunctiva clear. No lid lag. LUNGS: Breath sounds equal. Coarse breath sounds b/l. No accessory muscle use. HEART: Regular rate and rhythm, normal S1 and S2 without murmur, rub or gallop. ABDOMEN: Soft, nontender, not distended, normoactive bowel sounds, no guarding, no rebound, no masses. G tube in place. LOWER EXTREMITIES: 2+ pulses, warm, well-perfused. No calf tenderness. No peripheral edema. NEUROLOGICAL: unable to perform due to clinical status Laboratory Results - last 24 hr 09/22/17 09/22/17 09/22/17 03:17 03:17 03:32 WBC 15.5 H RBC 3.75 Hgb 11.0 Hct 33.5 MCV 89.3 MCH 29.3 MCHC 32.8 RDW 16.5 H Plt Count 142 MPV 11.6 H Neutrophils % 85.3 H Lymphocytes % 5.0 L Monocytes % 9.5 Eosinophils % 0.0 Basophils % 0.2 PT with INR 14.50 H INR 1.28 H PTT (Actin FS) 28.8 VBG pH POC VBG pCO2 POC VBG pO2 Mixed VBG HCO3 Sodium 157 H Potassium 3.7 Chloride 124 H Carbon Dioxide 24 Anion Gap 9 BUN 41 H Creatinine 1.4 H Creat Clearance w eGFR 37.86 Random Glucose 283 H Lactic Acid Calcium 8.4 L Total Bilirubin 0.4 AST 7 L ALT 8 L Alkaline Phosphatase 70 Creatine Kinase 17 L Troponin I 0.04 Total Protein 6.7 Albumin 2.4 L Urine Color Urine Appearance Urine pH Ur Specific [place] Urine Protein Urine Glucose (UA) Urine Ketones Urine Blood Urine Nitrite Urine Bilirubin Urine Urobilinogen Ur Leukocyte Esterase Urine WBC (Auto) Urine RBC (Auto) Ur Epithelial Cells Urine Bacteria Urine Mucus 09/22/17 09/22/17 09/22/17 03:32 03:32 05:17 WBC RBC Hgb Hct MCV MCH MCHC RDW Plt Count MPV Neutrophils % Lymphocytes % Monocytes % Eosinophils % Basophils % PT with INR INR PTT (Actin FS) VBG pH 7.46 H POC VBG pCO2 32.0 L POC VBG pO2 52.9 H Mixed VBG HCO3 22.5 Sodium Potassium Chloride Carbon Dioxide Anion Gap BUN Creatinine Creat Clearance w eGFR Random Glucose Lactic Acid 4.1 H* Calcium Total Bilirubin AST ALT Alkaline Phosphatase Creatine Kinase Troponin I Total Protein Albumin Urine Color Ltyellow Urine Appearance Slcloudy Urine pH 5.0 Ur Specific [place] 1.018 Urine Protein Negative Urine Glucose (UA) Negative Urine Ketones Negative Urine Blood Negative Urine Nitrite Negative Urine Bilirubin Negative Urine Urobilinogen Negative Ur Leukocyte Esterase 3+ H Urine WBC (Auto) 76 Urine RBC (Auto) 3 Ur Epithelial Cells Rare Urine Bacteria Moderate Urine Mucus Rare ASSESSMENT/PLAN: The patient is a 66 yo f w/ PMH epilepsy, anemia, CVA w/ residual right sided weakness who is being admitted to ICU for septic shock. #Septic shock 2/2 unknown source -s/p vanc/zosyn in ED -c/w vanc/zosyn (today's vanc dose already administered) -NS @75 -trend lactic acid -BCx/ UCx pending #FEN -NS @75 -monitor lytes -NPO #Prophylaxis -Hep sq TID #dispo -Admit to ICU Visit type - Emergency Visit Emergency Visit: Yes Care time: The patient presented to the Emergency Department on the above date and was hospitalized for further evaluation of their emergent condition. - New Patient This patient is new to me today: Yes Date on this admission: 09/22/17 - Critical Care Critical Care patient: No Hospitalist Screening - Colonoscopy Questionnaire Colonoscopy Questionnaire: Colonoscopy Questionnaire - Patient: 50 - 75 years old and never had a screening colonoscopy: Unknown History of colon or rectal polyps, or CA: Unknown History of IBD, Crohn's disease or UC: Unknown History of abdominal radiation therapy as a child: Unknown - Relative: 1 with colon or rectal CA, or polyps at age 60 or younger: Unknown Colon or rectal CA diagnosed at age 45 or younger: Unknown Multiple relatives with colon or rectal CA: Unknown - Outcome: Screening Result: Negative Screen
[2017-09-22] MEDS: HEPARIN NA (PORCINE) 5,000 UNITS/ML 1ML VIAL SQ SCH ×3 (06:23→22:00)
--- NOTE | 2017-09-22 06:32 | PN ---
Teaching Attending Note Name of Resident: Don Lopez ATTENDING PHYSICIAN STATEMENT I saw and evaluated the patient. I reviewed the resident's note and discussed the case with the resident. I agree with the resident's findings and plan as documented. SUBJECTIVE: OBJECTIVE: Vital Signs Period Temp Pulse Resp BP Sys/Levine Pulse Ox Last 24 Hr 102.7 F-103.7 F 128 14 104/71 94 Laboratory Tests 09/22/17 09/22/17 09/22/17 03:17 03:17 03:32 WBC 15.5 H RBC 3.75 Hgb 11.0 Hct 33.5 MCV 89.3 MCH 29.3 MCHC 32.8 RDW 16.5 H Plt Count 142 MPV 11.6 H Neutrophils % 85.3 H Lymphocytes % 5.0 L Monocytes % 9.5 Eosinophils % 0.0 Basophils % 0.2 PT with INR 14.50 H INR 1.28 H PTT (Actin FS) 28.8 VBG pH POC VBG pCO2 POC VBG pO2 Mixed VBG HCO3 Sodium 157 H Potassium 3.7 Chloride 124 H Carbon Dioxide 24 Anion Gap 9 BUN 41 H Creatinine 1.4 H Creat Clearance w eGFR 37.86 Random Glucose 283 H Lactic Acid Calcium 8.4 L Total Bilirubin 0.4 AST 7 L ALT 8 L Alkaline Phosphatase 70 Creatine Kinase 17 L Troponin I 0.04 Total Protein 6.7 Albumin 2.4 L Urine Color Urine Appearance Urine pH Ur Specific [place] Urine Protein Urine Glucose (UA) Urine Ketones Urine Blood Urine Nitrite Urine Bilirubin Urine Urobilinogen Ur Leukocyte Esterase Urine WBC (Auto) Urine RBC (Auto) Ur Epithelial Cells Urine Bacteria Urine Mucus 09/22/17 09/22/17 09/22/17 03:32 03:32 05:17 WBC RBC Hgb Hct MCV MCH MCHC RDW Plt Count MPV Neutrophils % Lymphocytes % Monocytes % Eosinophils % Basophils % PT with INR INR PTT (Actin FS) VBG pH 7.46 H POC VBG pCO2 32.0 L POC VBG pO2 52.9 H Mixed VBG HCO3 22.5 Sodium Potassium Chloride Carbon Dioxide Anion Gap BUN Creatinine Creat Clearance w eGFR Random Glucose Lactic Acid 4.1 H* Calcium Total Bilirubin AST ALT Alkaline Phosphatase Creatine Kinase Troponin I Total Protein Albumin Urine Color Ltyellow Urine Appearance Slcloudy Urine pH 5.0 Ur Specific [place] 1.018 Urine Protein Negative Urine Glucose (UA) Negative Urine Ketones Negative Urine Blood Negative Urine Nitrite Negative Urine Bilirubin Negative Urine Urobilinogen Negative Ur Leukocyte Esterase 3+ H Urine WBC (Auto) 76 Urine RBC (Auto) 3 Ur Epithelial Cells Rare Urine Bacteria Moderate Urine Mucus Rare ASSESSMENT AND PLAN:
--- NOTE | 2017-09-22 08:01 | CONSULT ---
Consult Consult Specialty:: ICU - History of Present Illness History of Present Illness: This is a 66 YOF with h/o CVA (residual right sided weakness), dysphagia, gastrostomy (current PEG tube), epilepsy, UTI, anemia, folate and thiamine deficiency, HLD, HTN, and depression who was BIBA to ED from [facility] for fever (103), tachypnea, and altered mental status. The patient herself is unable to provide any of her medical history and family is not answering the three phone numbers given on her [facility] records. Per SNF VS were BP 100/72, HR 123 , RR 24, T 103.7. The is Osmel Isidro not reachable on any numbers from [facility] record, and neither is son. The PCP is Dr. Arana. ED course: WBC elevation to 15k's, lactate 4.1, BCx drawn. Hypernatremic to 157, BUN 41, Cr 1.4. CXR showing LLL consolidation, no vascular congestion. UTI with leukocyte esterase and WBCs. Given vanc/zosyn and 4 liters NS. Given Tylenol 1 gm at about 0250 today. - History Source History Provided By: Medical Record Limitations to Obtaining History: Clinical Condition - Alcohol/Substance Use Hx Alcohol Use: No - Smoking History Smoking history: Unknown if ever smoked Have you smoked in the past 12 months: No Home Medications - Allergies Allergies/Adverse Reactions: Allergies Allergy/AdvReac Type Severity Reaction Status Date / Time No Known Allergies Allergy Verified 09/22/17 02:55 - Home Medications Home Medications: Ambulatory Orders Acetaminophen 325 mg PO Q4H 09/22/17 Amino Acids/Protein Hydrolys [Prosource No Carb Liquid Pkt] 30 ml PO BID Aspirin 81 mg PO DAILY 09/22/17 Enoxaparin [Lovenox -] 40 mg SQ DAILY 09/22/17 Lacosamide [Vimpat -] 100 mg PO DAILY 09/22/17 Metoprolol Tartrate 25 mg PO BID 09/22/17 Sennosides [Senna] 8.6 mg PO HS 09/22/17 Simvastatin 20 mg PO DAILY 09/22/17 Valproate Na [Depakene] 250 mg GT BID 09/22/17 Vit A/Vitamin D3/E/Aloe V/Zinc [Periguard Ointment] 5 gm TP DAILY 09/22/17 levETIRAcetam [Keppra -] 500 mg PO BID 09/22/17 Review of Systems Unable to obtain ROS, reason: AMS Physical Exam Vital Signs: Vital Signs Temperature 102.7 F H 09/22/17 04:41 Pulse Rate 99 H 09/22/17 06:44 Respiratory Rate 18 09/22/17 06:44 Blood Pressure 102/67 09/22/17 06:44 O2 Sat by Pulse Oximetry (%) 94 L 09/22/17 06:44 Constitutional: Yes: Well Nourished, No Distress, Calm, Other (mumbles yes/no to very simple questions, does not follow commands) Eyes: Yes: Conjunctiva Clear, EOM Intact HENT: Yes: Atraumatic, Normocephalic Neck: Yes: Supple, Trachea Midline Cardiovascular: Yes: Regular Rate and Rhythm, Murmur (2/6 systolid at LUSB) Respiratory: Yes: Regular, On Nasal O2, Other (coarse BS bilaterally, no cough) Gastrointestinal: Yes: Normal Bowel Sounds, Soft. No: Tenderness Renal/: Yes: Bingham Present, Other (cloudy urine in bingham bag) Extremities: No: Calf Tenderness, Cold, Cyanosis, Erythema Edema: No Integumentary: Yes: Other (skin dry, tenting) Neurological: Yes: Confusion, Other (moving all extremities) Psychiatric: No: Alert, Oriented, Agitated Labs: CBC, BMP 09/22/17 03:17 09/22/17 03:17 Assessment/Plan 66 YOF with h/o CVA (residual right sided weakness), dysphagia, gastrostomy ( current PEG tube), epilepsy, UTI, anemia, folate and thiamine deficiency, HLD, HTN, and depression who was BIBA to ED from [facility] for fever (103), tachypnea, and altered mental status. Found to have UTI and possible PNA on workup in the ED. NEURO #Altered mental status. Likely 2/2 septic shock. Per SNF she can talk in simple language, say yes/no when asked simple questions, normally is on thin liquids PO , and tends to have agitation when repositioned or changed at her normal baseline. -Frequent neuro checks. RESPIRATORY #Septic shock. Likely 2/2 PNA and UTI. -Continue vanc/zosyn (today's vanc dose already administered) -Continue fluid resuscitation -Trend lactic acid, WBC -BCx/ UCx pending FEN #Hypernatremia -1/2 NS at 150cc as patient still looks dry (max correction 190cc/h) -monitor lytes -NPO for now (may advance after swallow study) -PEG tube feeds PPX -Hep sq TID -GI: none currently -PT when able DISPO Further ICU care CODE STATUS
--- NOTE | 2017-09-22 08:11 | PN ---
Progress Note, Physician Chief Complaint: ID Patient is alert but offers no history Febrile currently 102 Hypoxic - Current Medication List Current Medications: Active Medications Chlorhexidine Gluconate (Hibiclens For Decolonization -) 1 applic TP HS CLEMENTE Heparin Sodium (Porcine) (Heparin -) 5,000 unit SQ TID CLEMENTE Last Admin: 09/22/17 06:23 Dose: 5,000 unit Piperacillin/Tazobactam/Dextrose (Zosyn 3.375gm Ivpb (Premix)) 50 mls @ 100 mls /hr IVPB Q8H-IV CLEMENTE PRN Reason: Protocol Sodium Chloride (1/2 Normal Saline) 1,000 mls @ 150 mls/hr IV ASDIR CLEMENTE Mupirocin (Bactroban Ointment (For Decolonization) -) 1 applic NS BID CLEMENTE Stop: 09/27/17 09:59 - Objective Vital Signs: Vital Signs Temperature 102.7 F H 09/22/17 04:41 Pulse Rate 99 H 09/22/17 06:44 Respiratory Rate 18 09/22/17 06:44 Blood Pressure 102/67 09/22/17 06:44 O2 Sat by Pulse Oximetry (%) 94 L 09/22/17 06:44 Constitutional: Yes: No Distress HENT: Yes: WNL, Atraumatic Neck: Yes: WNL, Supple Cardiovascular: Yes: S1, S2 Respiratory: Yes: WNL, Regular, CTA Bilaterally Gastrointestinal: Yes: WNL, Normal Bowel Sounds, Soft. No: Tenderness Edema: No Labs: CBC, BMP 09/22/17 03:17 09/22/17 03:17 INR, PTT INR 1.28 (0.82-1.09) H 09/22/17 03:32 Problem List - Problems (1) UTI (urinary tract infection) Code(s): N39.0 - URINARY TRACT INFECTION, SITE NOT SPECIFIED (2) Sepsis Code(s): A41.9 - SEPSIS, UNSPECIFIED ORGANISM Qualifiers: Sepsis type: sepsis due to unspecified organism Qualified Code(s): A41.9 - Sepsis, unspecified organism Assessment/Plan Laboratory Tests 09/22/17 09/22/17 09/22/17 03:17 03:17 03:32 WBC 15.5 H Plt Count 142 BUN 41 H Lactic Acid 4.1 H* ALT 8 L Alkaline Phosphatase 70 Creatine Kinase 17 L Ur Leukocyte Esterase Urine WBC (Auto) Urine Bacteria 09/22/17 05:17 WBC Plt Count BUN Lactic Acid ALT Alkaline Phosphatase Creatine Kinase Ur Leukocyte Esterase 3+ H Urine WBC (Auto) 76 Urine Bacteria Moderate Assessment Sepsis syndrome urinary source likely Plan Cultures pending Vanco daily and Zosyn pending c/s Adele ALVAREZ
[2017-09-22] MEDS ORDERED: ACETAMINOPHEN 325 MG TABLET (FP) PO SCH (08:45)
[2017-09-22 08:48] LABS: BASO % 0.3 % (0-2.0); HEMATOCRIT 32.2 % (32.4-45.2); HEMOGLOBIN 10.2 GM/dL (10.7-15.3); LYMPH % 8.6 % (8-40); MCH 28.6 pg (25.7-33.7); MCHC 31.6 g/dl (32.0-36.0); MEAN CELL VOLUME 90.6 fl (80-96); MEAN PLT VOLUME 11.1 fl (7.5-11.1); MONO % 10.8 % (3.8-10.2); NEUT % 80.3 % (42.8-82.8); PLATELET COUNT 123 K/MM3 (134-434); RBC 3.55 M/mm3 (3.60-5.2); RDW 16.5 % (11.6-15.6); WHITE BLOOD COUNT 15.8 K/mm3 (4.0-10.0)
[2017-09-22 09:13] LABS: ALBUMIN 2.4 g/dl (3.4-5.0); ANION GAP 11 (8-16); BILIRUBIN,TOTAL 0.6 mg/dL (0.2-1.0); BLOOD UREA NITROGEN 34 mg/dL (7-18); CALCIUM 8.8 mg/dL (8.5-10.1); CHLORIDE 125 mmol/L (98-107); CO2 24 mmol/L (21-32); GLUCOSE,RANDOM 129 mg/dL (74-106); MAGNESIUM 2.5 mg/dL (1.8-2.4); PHOSPHOROUS 3.5 mg/dL (2.5-4.9); POTASSIUM 3.3 mmol/L (3.5-5.1); SGOT/AST 7 U/L (15-37); SGPT/ALT 7 U/L (12-78); SODIUM 160 mmol/L (136-145); TOT PROT 6.6 g/dl (6.4-8.2)
[2017-09-22 09:14] LABS: ALK PHOS 62 U/L (45-117)
--- NOTE | 2017-09-22 09:30 | CONS ---
DATE OF CONSULTATION: 09/22/2017 HISTORY OF PRESENT ILLNESS: This is an ICU consultation for this 66-year-old female from the care home who presents for evaluation of tachypnea, hypoxemia, and temperature to 103. Though alert, she can offer no history. The history was obtained from reviewing the ER records, indicating history of epilepsy, frequent falls, TIA, dysphagia, and depression. On admission, she was noted to be febrile and hypoxic. She was brought to the ICU for further evaluation and treatment. PAST MEDICAL HISTORY: As noted above. CURRENT MEDICATIONS: Vancomycin and Zosyn. ALLERGIES: None known. SOCIAL HISTORY: Unknown if ever smoked. No history of alcohol or drug use. FAMILY HISTORY: Unobtainable. REVIEW OF SYSTEMS: Respiratory: Tachypnea. No cough. Cardiac: No chest pain, palpitations, syncope. History of murmur. Gastrointestinal: No abdominal pain, nausea, vomiting, diarrhea. Genitourinary: Incontinent of urine. No gross hematuria. PHYSICAL EXAMINATION: Vital signs: The admitting temperature was 103.7, pulse 128, respiratory rate 14, blood pressure 104/71, oxygen 94%. HEENT: Reveal malodorous mouth with poor dentition and mouth care. Neck: Supple, without adenopathy. Heart: S1, S2, regular rhythm, without audible murmur or gallop. Lungs: Coarse breath sounds. No rales or rhonchi. Abdomen: Soft, nontender. Normoactive bowel sounds. No guarding or rebound. Gastrostomy tube. Extremities: No clubbing, cyanosis, or edema. LABORATORY DATA: The white count was 15.5 with hemoglobin 11, platelets of 142. Sodium 157, potassium 3.7, BUN 41, creatinine 1.4, glucose 283. Liver enzymes within normal limits. Urinalysis with 3+ leukocyte esterase, 76 WBCs, 3 RBCs, and moderate bacteria. Blood and urine cultures pending. Chest x-ray was reviewed, shows some increased markings in the left lower lobe, cannot rule out pneumonia. ASSESSMENT: A 66-year-old female with history of epilepsy and prior transient ischemic attack who presents now with tachypnea and fever to 103. Possible sources include urinary tract infection as well as possible pneumonia. Her mouth care is poor, and the possibility of an anaerobic pulmonary infection is considered. Would empirically treat with piperacillin tazobactam 3.375 g IV q.8 hours, await blood and urine cultures. She received vancomycin overnight. Will determine whether she needs additional vancomycin dosing going forward. Legionella urinary antigen ordered. SHAE BESS M.D. [id number]
[2017-09-22] MEDS ORDERED: PATIENT'S OWN MEDICATION (NON-FORMULARY) (Vit A/Vitamin D3/E/Aloe V/Zinc [Periguard Ointme TP SCH (10:00)
[2017-09-22] MEDS ORDERED: ASPIRIN 81 MG CHEWABLE TABLETS PO SCH (10:00)
[2017-09-22] MEDS: SODIUM CHLORIDE 0.45% 1,000 ML IV SCH (10:00)
[2017-09-22] MEDS ORDERED: levETIRAcetam 500 MG TABLET (FP) PO SCH (10:00)
[2017-09-22] MEDS ORDERED: PIPERACILLIN/TAZOB 3.375 GM 50 ML IVPB SCH (10:00)
[2017-09-22] MEDS ORDERED: AMINO ACIDS/PROTEIN HYDROLYS 30 ML LIQUID.PKT PO SCH (10:00)
[2017-09-22] MEDS ORDERED: METOPROLOL TARTRATE 25 MG TABLET (FP) PO SCH (10:00)
[2017-09-22] MEDS: PIPERACILLIN/TAZOB 3.375 GM 50 ML IVPB SCH ×2 (10:30→18:37)
[2017-09-22] MEDS ORDERED: ASPIRIN 81 MG CHEWABLE TABLETS GT SCH (11:16)
--- NOTE | 2017-09-22 12:17 | EKG ---
Test Reason : Blood Pressure : / mmHG Vent. Rate : 119 BPM Atrial Rate : 119 BPM P-R Int : 128 ms QRS Dur : 072 ms QT Int : 334 ms P-R-T Axes : 067 015 071 degrees QTc Int : 469 ms SINUS TACHYCARDIA NONSPECIFIC ST ABNORMALITY ABNORMAL ECG NO PREVIOUS ECGS AVAILABLE Confirmed by BRENTON ENCINAS MD ([id number]) on 09/22/2017 12:17:12 PM Referred By: Confirmed By:BRENTON ENCINAS MD
--- NOTE | 2017-09-22 12:33 | PN ---
Teaching Attending Note Name of Resident: Zenaida Baker ATTENDING PHYSICIAN STATEMENT I saw and evaluated the patient. I reviewed the resident's note and discussed the case with the resident. I agree with the resident's findings and plan as documented. SUBJECTIVE: Patient seen and examined in the ICU. Awake but confused and not able to provide a history. No pressors, but periods of marginal BP. All cultures are pending. Intake & Output 09/19/17 09/20/17 09/21/17 09/22/17 23:59 23:59 23:59 23:59 Weight 145 lb Last Vital Signs Temp Pulse Resp BP Pulse Ox 98.8 F 84 15 92/66 94 L 09/22/17 10:00 09/22/17 10:00 09/22/17 10:09/22/17 10:00 09/22/17 06:44 Active Medications Acetaminophen (Tylenol Oral Solution -) 325 mg GT Q4HPO CLEMENTE Amino Acids (Prosource No Carb Liquid Pkt) 30 ml GT BIDWM CLEMENTE Aspirin (Asa -) 81 mg GT DAILY CLEMENTE Atorvastatin Calcium (Lipitor -) 10 mg GT HS CLEMENTE Chlorhexidine Gluconate (Hibiclens For Decolonization -) 1 applic TP HS CLEMENTE Heparin Sodium (Porcine) (Heparin -) 5,000 unit SQ TID CLEMENTE Last Admin: 09/22/17 06:23 Dose: 5,000 unit Sodium Chloride (1/2 Normal Saline) 1,000 mls @ 150 mls/hr IV ASDIR CLEMENTE Piperacillin/Tazobactam/Dextrose (Zosyn 3.375gm Ivpb (Premix)) 50 mls @ 100 mls /hr IVPB Q8H-IV CLEMENTE PRN Reason: Protocol Lacosamide (Vimpat Liquid -) 100 mg GT DAILY CLEMENTE Levetiracetam (Keppra Oral Solution -) 500 mg GT BID CLEMENTE Metoprolol Tartrate (Lopressor -) 25 mg GT BID CLEMENTE Mupirocin (Bactroban Ointment (For Decolonization) -) 1 applic NS BID CLEMENTE Stop: 09/27/17 09:59 Non-Formulary Medication (Vit A/Vitamin D3/E/Aloe V/Zinc [Periguard Ointment]) 5 gm TP DAILY CLEMENTE Senna (Senna Oral Solution -) 8.8 mg PO HS CLEMENTE Valproate Sodium (Depakene -) 250 mg GT BID CLEMENTE Constitutional: Yes: Awake, confused Eyes: Yes: Conjunctiva Clear, EOM Intact HENT: Yes: Atraumatic, Normocephalic Neck: Yes: Supple, Trachea Midline Cardiovascular: Yes: Regular Rate and Rhythm, (+) ESM Respiratory: Yes: Bilateral scattered rhonchi, On Nasal O2 Gastrointestinal: Yes: Normal Bowel Sounds, Soft. No: Tenderness Renal/: Yes: [place]ingham Present, Other (cloudy urine in bingham bag) Extremities: No: Calf Tenderness, Cold, Cyanosis, Erythema Edema: No Integumentary: Yes: Other (skin dry, tenting) Neurological: Yes: Confusion, Other (moving all extremities) Psychiatric: No: Confusion Labs: Laboratory Results - last 24 hr 09/22/17 09/22/17 09/22/17 03:17 03:17 03:32 WBC 15.5 H RBC 3.75 Hgb 11.0 Hct 33.5 MCV 89.3 MCH 29.3 MCHC 32.8 RDW 16.5 H Plt Count 142 MPV 11.6 H Neutrophils % 85.3 H Lymphocytes % 5.0 L Monocytes % 9.5 Eosinophils % 0.0 Basophils % 0.2 PT with INR 14.50 H INR 1.28 H PTT (Actin FS) 28.8 VBG pH POC VBG pCO2 POC VBG pO2 Mixed VBG HCO3 Sodium 157 H Potassium 3.7 Chloride 124 H Carbon Dioxide 24 Anion Gap 9 BUN 41 H Creatinine 1.4 H Creat Clearance w eGFR 37.86 Random Glucose 283 H Lactic Acid Calcium 8.4 L Phosphorus Magnesium Total Bilirubin 0.4 AST 7 L ALT 8 L Alkaline Phosphatase 70 Creatine Kinase 17 L Troponin I 0.04 Total Protein 6.7 Albumin 2.4 L Urine Color Urine Appearance Urine pH Ur Specific [place] Urine Protein Urine Glucose (UA) Urine Ketones Urine Blood Urine Nitrite Urine Bilirubin Urine Urobilinogen Ur Leukocyte Esterase Urine WBC (Auto) Urine RBC (Auto) Ur Epithelial Cells Urine Bacteria Urine Mucus Blood Type Antibody Screen 09/22/17 09/22/17 09/22/17 03:32 03:32 05:17 WBC RBC Hgb Hct MCV MCH MCHC RDW Plt Count MPV Neutrophils % Lymphocytes % Monocytes % Eosinophils % Basophils % PT with INR INR PTT (Actin FS) VBG pH 7.46 H POC VBG pCO2 32.0 L POC VBG pO2 52.9 H Mixed VBG HCO3 22.5 Sodium Potassium Chloride Carbon Dioxide Anion Gap BUN Creatinine Creat Clearance w eGFR Random Glucose Lactic Acid 4.1 H* Calcium Phosphorus Magnesium Total Bilirubin AST ALT Alkaline Phosphatase Creatine Kinase Troponin I Total Protein Albumin Urine Color Ltyellow Urine Appearance Slcloudy Urine pH 5.0 Ur Specific [place] 1.018 Urine Protein Negative Urine Glucose (UA) Negative Urine Ketones Negative Urine Blood Negative Urine Nitrite Negative Urine Bilirubin Negative Urine Urobilinogen Negative Ur Leukocyte Esterase 3+ H Urine WBC (Auto) 76 Urine RBC (Auto) 3 Ur Epithelial Cells Rare Urine Bacteria Moderate Urine Mucus Rare Blood Type Antibody Screen 09/22/17 09/22/17 09/22/17 05:47 06:50 08:20 WBC RBC Hgb Hct MCV MCH MCHC RDW Plt Count MPV Neutrophils % Lymphocytes % Monocytes % Eosinophils % Basophils % PT with INR INR PTT (Actin FS) VBG pH POC VBG pCO2 POC VBG pO2 Mixed VBG HCO3 Sodium Potassium Chloride Carbon Dioxide Anion Gap BUN Creatinine Creat Clearance w eGFR Random Glucose Lactic Acid 3.4 H* 3.0 H* Calcium Phosphorus Magnesium Total Bilirubin AST ALT Alkaline Phosphatase Creatine Kinase Troponin I Total Protein Albumin Urine Color Urine Appearance Urine pH Ur Specific [place] Urine Protein Urine Glucose (UA) Urine Ketones Urine Blood Urine Nitrite Urine Bilirubin Urine Urobilinogen Ur Leukocyte Esterase Urine WBC (Auto) Urine RBC (Auto) Ur Epithelial Cells Urine Bacteria Urine Mucus Blood Type A POSITIVE Antibody Screen Negative 09/22/17 09/22/17 09/22/17 08:20 08:20 08:20 WBC 15.8 H RBC 3.55 L Hgb 10.2 L Hct 32.2 L MCV 90.6 MCH 28.6 MCHC 31.6 L RDW 16.5 H Plt Count 123 L MPV 11.1 Neutrophils % 80.3 Lymphocytes % 8.6 D Monocytes % 10.8 H Eosinophils % 0.0 Basophils % 0.3 PT with INR INR PTT (Actin FS) VBG pH POC VBG pCO2 POC VBG pO2 Mixed VBG HCO3 Sodium 160 H Potassium 3.3 L Chloride 125 H Carbon Dioxide 24 Anion Gap 11 BUN 34 H Creatinine 1.0 Creat Clearance w eGFR 55.82 Random Glucose 129 H Lactic Acid Calcium 8.8 Phosphorus 3.5 Magnesium 2.5 H Total Bilirubin 0.6 D AST 7 L ALT 7 L Alkaline Phosphatase 62 Creatine Kinase Troponin I Total Protein 6.6 Albumin 2.4 L Urine Color Urine Appearance Urine pH Ur Specific [place] Urine Protein Urine Glucose (UA) Urine Ketones Urine Blood Urine Nitrite Urine Bilirubin Urine Urobilinogen Ur Leukocyte Esterase Urine WBC (Auto) Urine RBC (Auto) Ur Epithelial Cells Urine Bacteria Urine Mucus Blood Type A POSITIVE Antibody Screen Assessment/Plan Sepsis due to suspected LLL PNA / UTI AMS Hypernatremia Electrolyte imbalance IVF changed Strict I&O Broad ABX per ID O2 as needed Aspiration precautions Replete lytes ICU monitoring Dr Early Critical care time spent in reviewing chart, evaluating patient and formulating plan - 36 minutes.
[2017-09-22] MEDS: Lacosamide 50 MG/5 ML ORAL SOLUTION UNIT CUPS GT SCH (13:07)
[2017-09-22] MEDS: MUPIROCIN 2% TOPICAL OINTMENT FOR DECOLONIZATION NS SCH ×2 (13:07→22:00)
[2017-09-22] MEDS: VALPROATE SODIUM 250 MG/5 ML UNIT DOSE CUP GT SCH ×2 (13:08→22:59)
[2017-09-22] MEDS: levETIRAcetam 500 MG/5 ML ORAL SOLUTION (UNIT-DOSE CUPS) GT SCH ×2 (13:09→21:42)
[2017-09-22] MEDS ORDERED: PNEUMOC 13-VAL CONJ-DIP CRM/PF 0.5 ML DISP.SYRIN IM ONE (16:15)
[2017-09-22] MEDS ORDERED: PT OWN MED DRAWER 7, Y5N ONE ×2 (18:27→21:22)
[2017-09-22] MEDS: ACETAMINOPHEN 650 MG/20.3 ML ORAL SOLUTION (CUPS) GT SCH ×3 (18:36→22:00)
[2017-09-22] MEDS: AMINO ACIDS/PROTEIN HYDROLYS 30 ML LIQUID.PKT GT SCH (18:37)
[2017-09-22 19:01] LABS: BASO % 0.2 % (0-2.0); HEMATOCRIT 28.5 % (32.4-45.2); HEMOGLOBIN 9.3 GM/dL (10.7-15.3); LYMPH % 11.1 % (8-40); MCH 29.4 pg (25.7-33.7); MCHC 32.5 g/dl (32.0-36.0); MEAN CELL VOLUME 90.6 fl (80-96); MEAN PLT VOLUME 11.4 fl (7.5-11.1); MONO % 6.6 % (3.8-10.2); NEUT % 82.1 % (42.8-82.8); PLATELET COUNT 126 K/MM3 (134-434); RBC 3.15 M/mm3 (3.60-5.2); RDW 16.2 % (11.6-15.6); WHITE BLOOD COUNT 18.3 K/mm3 (4.0-10.0)
[2017-09-22 19:28] LABS: ALBUMIN 2.2 g/dl (3.4-5.0); ANION GAP 6 (8-16); BLOOD UREA NITROGEN 27 mg/dL (7-18); CALCIUM 8.1 mg/dL (8.5-10.1); CHLORIDE 127 mmol/L (98-107); CO2 27 mmol/L (21-32); CREATININE 0.9 mg/dL (0.55-1.02); GLUCOSE,RANDOM 81 mg/dL (74-106); MAGNESIUM 2.1 mg/dL (1.8-2.4); PHOSPHOROUS 2.8 mg/dL (2.5-4.9); POTASSIUM 3.6 mmol/L (3.5-5.1); SGOT/AST 7 U/L (15-37); SGPT/ALT 7 U/L (12-78)
[2017-09-22 19:30] LABS: ALK PHOS 58 U/L (45-117); BILIRUBIN,TOTAL 0.9 mg/dL (0.2-1.0); TOT PROT 6.1 g/dl (6.4-8.2)
[2017-09-22 19:35] LABS: SODIUM 160 mmol/L (136-145)
[2017-09-22] MEDS: METOPROLOL TARTRATE 25 MG TABLET (FP) GT SCH (21:43)
[2017-09-22] MEDS ORDERED: SENNOSIDES 8.8 MG/5 ML BULK BOTTLE PO SCH (22:00)
[2017-09-22] MEDS ORDERED: CHLORHEXIDINE GLUCONATE 4% CLEANSER FOR DECOLONIZATION TP SCH (22:00)
[2017-09-22] MEDS ORDERED: ATORVASTATIN CA 10 MG TABLET (FP) GT SCH (22:00)
[2017-09-23] MEDS: ACETAMINOPHEN 650 MG/20.3 ML ORAL SOLUTION (CUPS) GT SCH ×3 (01:41→21:54)
[2017-09-23] MEDS: PIPERACILLIN/TAZOB 3.375 GM 50 ML IVPB SCH ×4 (01:48→17:43)
[2017-09-23 06:22] LABS: HEMATOCRIT 27.5 % (32.4-45.2); HEMOGLOBIN 8.8 GM/dL (10.7-15.3); MCH 28.9 pg (25.7-33.7); MCHC 31.8 g/dl (32.0-36.0); MEAN CELL VOLUME 90.8 fl (80-96); MEAN PLT VOLUME 11.8 fl (7.5-11.1); PLATELET COUNT 129 K/MM3 (134-434); RBC 3.03 M/mm3 (3.60-5.2); RDW 16.2 % (11.6-15.6); WHITE BLOOD COUNT 20.9 K/mm3 (4.0-10.0)
[2017-09-23 06:38] LABS: INR 1.33 (0.82-1.09)
[2017-09-23 06:40] LABS: ACTIVATED PTT 34.3 SECONDS (26.9-34.4)
--- NOTE | 2017-09-23 06:42 | PN ---
Progress Note, Physician History of Present Illness: This is a 66 YOF with h/o CVA (residual right sided weakness), dysphagia, gastrostomy (current PEG tube), epilepsy, UTI, anemia, folate and thiamine deficiency, HLD, HTN, and depression who was BIBA to ED from [facility] for fever (103), tachypnea, and altered mental status, admitted to ICU 2/2 septic shock likely from UTI and possible PNA. 24 HOUR EVENTS Per RN notes: Received patient alert, oriented to name only. Afebrile. 2 LPM O2 , SPO2-100%. Becomes agitated and screams while performing care. Incontinent of stool Handy catheter in place patent and draining. Overall doing much better this morning. Dr. Angulo concerned for abdominal pain patient is noting this morning; CT with PO contrast ordered. SUBJECTIVE Patient states no SOB or cough, feels much better. Only complaint is mild left- sided abdominal pain. 24 HOUR INTAKE & OUTPUT In: 1700cc Out: 1100cc Net: +600cc BM: Yes, incontinent - Current Medication List Current Medications: Active Medications Acetaminophen (Tylenol Oral Solution -) 325 mg GT Q4HPO [facility] Last Admin: 09/23/17 01:41 Dose: 325 mg Amino Acids (Prosource No Carb Liquid Pkt) 30 ml GT BIDWM [facility] Last Admin: 09/22/17 18:37 Dose: 30 ml Aspirin (Asa -) 81 mg GT DAILY [facility] Atorvastatin Calcium (Lipitor -) 10 mg GT HS [facility] Last Admin: 09/22/17 21:43 Dose: 10 mg Chlorhexidine Gluconate (Hibiclens For Decolonization -) 1 applic TP HS [facility] Last Admin: 09/22/17 21:43 Dose: 1 applic Heparin Sodium (Porcine) (Heparin -) 5,000 unit SQ TID [facility] Last Admin: 09/22/17 22:00 Dose: 5,000 unit Sodium Chloride (1/2 Normal Saline) 1,000 mls @ 150 mls/hr IV ASDIR [facility] Last Admin: 09/22/17 10:00 Dose: 150 mls/hr Piperacillin/Tazobactam/Dextrose (Zosyn 3.375gm Ivpb (Premix)) 50 mls @ 100 mls /hr IVPB Q8H-IV [facility] PRN Reason: Protocol Last Admin: 09/23/17 01:48 Dose: 100 mls/hr Lacosamide (Vimpat Liquid -) 100 mg GT DAILY [facility] Last Admin: 09/22/17 13:07 Dose: 100 mg Levetiracetam (Keppra Oral Solution -) 500 mg GT BID [facility] Last Admin: 09/22/17 21:42 Dose: 500 mg Metoprolol Tartrate (Lopressor -) 25 mg GT BID [facility] Last Admin: 09/22/17 21:43 Dose: Not Given Mupirocin (Bactroban Ointment (For Decolonization) -) 1 applic NS BID [facility] Stop: 09/27/17 09:59 Last Admin: 09/22/17 22:00 Dose: 1 applic Non-Formulary Medication (Vit A/Vitamin D3/E/Aloe V/Zinc [Periguard Ointment]) 5 gm TP DAILY [facility] Pneumococcal 13-Valent Conj Vacc (Prevnar 13 Syringe -) 0.5 ml IM .ONCE ONE Stop: 09/22/17 16:16 Senna (Senna Oral Solution -) 8.8 mg PO HS [facility] Last Admin: 09/22/17 21:42 Dose: 5 ml Valproate Sodium (Depakene -) 250 mg GT BID [facility] Last Admin: 09/22/17 22:59 Dose: 250 mg - Objective Vital Signs: Vital Signs Temperature 98.5 F 09/23/17 02:00 Pulse Rate 83 09/23/17 02:00 Respiratory Rate 18 09/23/17 02:00 Blood Pressure 132/84 09/23/17 02:00 O2 Sat by Pulse Oximetry (%) 98 09/22/17 21:00 Constitutional: Yes: Well Nourished, No Distress, Calm, Other (much more communicative than yesterday, conversing, answering most questions appropriately and occasionally misunderstands questions, positive sense of humor ) Eyes: Yes: Conjunctiva Clear, EOM Intact HENT: Yes: Atraumatic, Normocephalic Neck: Yes: Supple, Trachea Midline Cardiovascular: Yes: Regular Rate and Rhythm, Murmur (2/6 systolic) Respiratory: Yes: Regular, CTA Bilaterally. No: Tachypnea, Wheezes Gastrointestinal: Yes: Normal Bowel Sounds, Soft, Distention (possibly normal baseline), Tenderness (LUQ mild) Genitourinary: Yes: Handy Present Extremities: Yes: WNL. No: Calf Tenderness, Cold, Cyanosis, Delayed Capillary Refill, Erythema Edema: No Peripheral Pulses: Left Doralis Pedis: 2+, Right Dorsalis Pedis: 2+ Integumentary: Yes: WNL, Other (dry) Neurological: Yes: Alert, Other (oriented to name and own birthdate but not to year, type of building, city, or situation) Psychiatric: Yes: Alert Labs: CBC, BMP 09/23/17 05:00 INR, PTT INR 1.28 (0.82-1.09) H 09/22/17 03:32 Assessment/Plan 66 YOF with h/o CVA (residual right sided weakness), dysphagia, gastrostomy ( current PEG tube), epilepsy, UTI, anemia, folate and thiamine deficiency, HLD, HTN, and depression who was BIBA to ED from [facility] for fever (103), tachypnea, and altered mental status. Found to have UTI and possible PNA on workup in the ED. NEURO #Altered mental status, resolved. Likely 2/2 septic shock which has also resolved. Per SNF she can talk in simple language, say yes/no when asked simple questions, normally is on thin liquids PO, and tends to have agitation when repositioned or changed at her normal baseline. Today she seems to be acting per this normal baseline. -Frequent neuro checks. RESPIRATORY #Septic shock, resolved. Likely 2/2 UTI, possible additional source. BCx negative and UCx negative. -Continue vanc/zosyn (today's vanc dose already administered) -Continue fluid resuscitation -CT abdomen/pelvis with PO contrast as ordered by Dr. Angulo FEN #Hypernatremia -1/2 NS at 150cc (max correction 190cc/h) -Monitor lytes -NPO for now (may advance after swallow study) -PEG tube feeds PPX -Hep sq TID -GI: none currently -PT when able DISPO Likely can be transferred to tele today if abdomen/pelvis CT results negative. Otherwise further ICU care. CODE STATUS
[2017-09-23 07:00] LABS: CHLORIDE 121 mmol/L (98-107); POTASSIUM 3.3 mmol/L (3.5-5.1); SODIUM 157 mmol/L (136-145)
[2017-09-23 07:12] LABS: ALK PHOS 58 U/L (45-117); ANION GAP 11 (8-16); BILIRUBIN,TOTAL 0.5 mg/dL (0.2-1.0); BLOOD UREA NITROGEN 22 mg/dL (7-18); CALCIUM 9.1 mg/dL (8.5-10.1); CO2 25 mmol/L (21-32); CREATININE 0.8 mg/dL (0.55-1.02); GLUCOSE,RANDOM 82 mg/dL (74-106); MAGNESIUM 2.4 mg/dL (1.8-2.4); PHOSPHOROUS 3.3 mg/dL (2.5-4.9); SGOT/AST 10 U/L (15-37); SGPT/ALT 9 U/L (12-78); TOT PROT 5.9 g/dl (6.4-8.2)
--- NOTE | 2017-09-23 07:34 | PN ---
Progress Note, Physician Chief Complaint: ID More alert and able to answer questions today. Appears dyspneic Dose of vancomycin given along with Pip Tazobactam day 1 therapy T max 103.7 She denies SOB abd pains - Current Medication List Current Medications: Active Medications Acetaminophen (Tylenol Oral Solution -) 325 mg GT Q4HPO [facility] Last Admin: 09/23/17 01:41 Dose: 325 mg Amino Acids (Prosource No Carb Liquid Pkt) 30 ml GT BIDWM [facility] Last Admin: 09/22/17 18:37 Dose: 30 ml Aspirin (Asa -) 81 mg GT DAILY [facility] Atorvastatin Calcium (Lipitor -) 10 mg GT HS [facility] Last Admin: 09/22/17 21:43 Dose: 10 mg Chlorhexidine Gluconate (Hibiclens For Decolonization -) 1 applic TP HS [facility] Last Admin: 09/22/17 21:43 Dose: 1 applic Heparin Sodium (Porcine) (Heparin -) 5,000 unit SQ TID [facility] Last Admin: 09/22/17 22:00 Dose: 5,000 unit Sodium Chloride (1/2 Normal Saline) 1,000 mls @ 150 mls/hr IV ASDIR [facility] Last Admin: 09/22/17 10:00 Dose: 150 mls/hr Piperacillin/Tazobactam/Dextrose (Zosyn 3.375gm Ivpb (Premix)) 50 mls @ 100 mls /hr IVPB Q8H-IV [facility] PRN Reason: Protocol Last Admin: 09/23/17 01:48 Dose: 100 mls/hr Lacosamide (Vimpat Liquid -) 100 mg GT DAILY [facility] Last Admin: 09/22/17 13:07 Dose: 100 mg Levetiracetam (Keppra Oral Solution -) 500 mg GT BID [facility] Last Admin: 09/22/17 21:42 Dose: 500 mg Metoprolol Tartrate (Lopressor -) 25 mg GT BID [facility] Last Admin: 09/22/17 21:43 Dose: Not Given Mupirocin (Bactroban Ointment (For Decolonization) -) 1 applic NS BID [facility] Stop: 09/27/17 09:59 Last Admin: 09/22/17 22:00 Dose: 1 applic Non-Formulary Medication (Vit A/Vitamin D3/E/Aloe V/Zinc [Periguard Ointment]) 5 gm TP DAILY [facility] Pneumococcal 13-Valent Conj Vacc (Prevnar 13 Syringe -) 0.5 ml IM .ONCE ONE Stop: 09/22/17 16:16 Senna (Senna Oral Solution -) 8.8 mg PO HS [facility] Last Admin: 09/22/17 21:42 Dose: 5 ml Valproate Sodium (Depakene -) 250 mg GT BID [facility] Last Admin: 09/22/17 22:59 Dose: 250 mg - Objective Vital Signs: Vital Signs Temperature 98.5 F 09/23/17 02:00 Pulse Rate 84 09/23/17 07:00 Respiratory Rate 21 09/23/17 07:00 Blood Pressure 96/58 09/23/17 07:00 O2 Sat by Pulse Oximetry (%) 98 09/22/17 21:00 Constitutional: Yes: Mild Distress HENT: Yes: Other (Mouth care poor dentition poor) Cardiovascular: Yes: Regular Rate and Rhythm, S1, S2 Respiratory: Yes: WNL, Regular, CTA Bilaterally. No: Rales, Rhonchi Gastrointestinal: Yes: Soft, Distention, Tenderness. No: Tenderness, Rebound Extremities: No: Cold, Cool, Cyanosis Edema: No Labs: CBC, BMP 09/23/17 05:00 09/23/17 05:00 INR, PTT INR 1.33 (0.82-1.09) H 09/23/17 05:00 Problem List - Problems (1) UTI (urinary tract infection) Code(s): N39.0 - URINARY TRACT INFECTION, SITE NOT SPECIFIED (2) Sepsis Code(s): A41.9 - SEPSIS, UNSPECIFIED ORGANISM Qualifiers: Sepsis type: sepsis due to unspecified organism Qualified Code(s): A41.9 - Sepsis, unspecified organism Assessment/Plan Microbiology 09/22/17 03:17 Blood - Peripheral Venous Blood Culture - Preliminary NO GROWTH OBTAINED AFTER 24 HOURS, INCUBATION TO CONTINUE FOR 4 DAYS. 09/22/17 03:17 Blood - Peripheral Venous Blood Culture - Preliminary NO GROWTH OBTAINED AFTER 24 HOURS, INCUBATION TO CONTINUE FOR 4 DAYS. Laboratory Tests 09/22/17 09/22/17 09/22/17 05:17 06:50 08:20 WBC Hgb Plt Count INR BUN Creatinine Lactic Acid 3.4 H* 3.0 H* Magnesium Total Bilirubin AST ALT Ur Leukocyte Esterase 3+ H Urine WBC (Auto) 76 Urine RBC (Auto) 3 09/23/17 09/23/17 09/23/17 05:00 05:00 05:00 WBC 20.9 H Hgb 8.8 L Plt Count 129 L INR 1.33 H BUN 22 H Creatinine 0.8 Lactic Acid Magnesium 2.4 Total Bilirubin 0.5 D AST 10 L ALT 9 L Ur Leukocyte Esterase Urine WBC (Auto) Urine RBC (Auto) Assessment Sepsis syndrome sources pneumonia and urinary tract. No decubitus ulcers per nursing staff. ? persistant leukocytosis raises question of either resistant organisms or another focus ? abd. Plan Vanco level random this am Check cultures when available Order CT abd and pelvis make sure nothing going on the abd LEATHA Angulo MD
[2017-09-23] MEDS ORDERED: PT OWN MED DRAWER 7, Y5N ONE ×3 (09:16→17:35)
[2017-09-23] MEDS: Lacosamide 50 MG/5 ML ORAL SOLUTION UNIT CUPS GT SCH (09:25)
[2017-09-23] MEDS: levETIRAcetam 500 MG/5 ML ORAL SOLUTION (UNIT-DOSE CUPS) GT SCH ×2 (09:26→21:48)
[2017-09-23] MEDS: VALPROATE SODIUM 250 MG/5 ML UNIT DOSE CUP GT SCH ×2 (09:26→21:49)
[2017-09-23] MEDS: AMINO ACIDS/PROTEIN HYDROLYS 30 ML LIQUID.PKT GT SCH ×2 (09:27→17:43)
[2017-09-23] MEDS: HEPARIN NA (PORCINE) 5,000 UNITS/ML 1ML VIAL SQ SCH ×3 (09:27→21:45)
[2017-09-23] MEDS: METOPROLOL TARTRATE 25 MG TABLET (FP) GT SCH ×2 (09:28→21:58)
[2017-09-23] MEDS: SODIUM CHLORIDE 0.45% 1,000 ML IV SCH ×2 (09:29→18:54)
[2017-09-23] MEDS: MUPIROCIN 2% TOPICAL OINTMENT FOR DECOLONIZATION NS SCH (09:36)
--- NOTE | 2017-09-23 09:44 | PN ---
Progress Note, Physician History of Present Illness: Pt seen/ examined in icu. Chart reviewed. All f/u noted / appreciated Pt awake. no distress but somewhat confused. Afebrile - Current Medication List Current Medications: Active Medications Acetaminophen (Tylenol Oral Solution -) 325 mg GT Q4HPO [facility] Last Admin: 09/23/17 01:41 Dose: 325 mg Amino Acids (Prosource No Carb Liquid Pkt) 30 ml GT BIDWM [facility] Last Admin: 09/23/17 09:27 Dose: 30 ml Aspirin (Asa -) 81 mg GT DAILY [facility] Last Admin: 09/23/17 09:28 Dose: 81 mg Atorvastatin Calcium (Lipitor -) 10 mg GT HS [facility] Last Admin: 09/22/17 21:43 Dose: 10 mg Chlorhexidine Gluconate (Hibiclens For Decolonization -) 1 applic TP HS [facility] Last Admin: 09/22/17 21:43 Dose: 1 applic Heparin Sodium (Porcine) (Heparin -) 5,000 unit SQ TID [facility] Last Admin: 09/23/17 09:27 Dose: 5,000 unit Sodium Chloride (1/2 Normal Saline) 1,000 mls @ 150 mls/hr IV ASDIR [facility] Last Admin: 09/23/17 09:29 Dose: 150 mls/hr Piperacillin/Tazobactam/Dextrose (Zosyn 3.375gm Ivpb (Premix)) 50 mls @ 100 mls /hr IVPB Q8H-IV [facility] PRN Reason: Protocol Last Admin: 09/23/17 09:35 Dose: 100 mls/hr Lacosamide (Vimpat Liquid -) 100 mg GT DAILY [facility] Last Admin: 09/23/17 09:25 Dose: 100 mg Levetiracetam (Keppra Oral Solution -) 500 mg GT BID [facility] Last Admin: 09/23/17 09:26 Dose: 500 mg Metoprolol Tartrate (Lopressor -) 25 mg GT BID [facility] Last Admin: 09/23/17 09:28 Dose: 25 mg Mupirocin (Bactroban Ointment (For Decolonization) -) 1 applic NS BID [facility] Stop: 09/27/17 09:59 Last Admin: 09/23/17 09:36 Dose: 1 applic Non-Formulary Medication (Vit A/Vitamin D3/E/Aloe V/Zinc [Periguard Ointment]) 5 gm TP DAILY [facility] Pneumococcal 13-Valent Conj Vacc (Prevnar 13 Syringe -) 0.5 ml IM .ONCE ONE Stop: 09/22/17 16:16 Senna (Senna Oral Solution -) 8.8 mg PO HS [facility] Last Admin: 09/22/17 21:42 Dose: 5 ml Valproate Sodium (Depakene -) 250 mg GT BID [facility] Last Admin: 09/23/17 09:26 Dose: 250 mg - Objective Vital Signs: Vital Signs Temperature 98.5 F 09/23/17 02:00 Pulse Rate 88 09/23/17 08:00 Respiratory Rate 21 09/23/17 08:00 Blood Pressure 99/57 09/23/17 08:00 O2 Sat by Pulse Oximetry (%) 96 09/23/17 09:00 Constitutional: Yes: No Distress Eyes: Yes: Conjunctiva Clear Neck: Yes: Supple Cardiovascular: Yes: Regular Rate and Rhythm Respiratory: Yes: Diminished Gastrointestinal: Yes: Soft Edema: No Neurological: Yes: Other (awake/ confused) Labs: CBC, BMP 09/23/17 05:00 09/23/17 05:00 INR, PTT INR 1.33 (0.82-1.09) H 09/23/17 05:00 - ....Imaging Chest X-ray: Report Reviewed Problem List - Problems (1) Sepsis Code(s): A41.9 - SEPSIS, UNSPECIFIED ORGANISM Qualifiers: Sepsis type: sepsis due to unspecified organism Qualified Code(s): A41.9 - Sepsis, unspecified organism (2) Lactic acidosis Code(s): E87.2 - ACIDOSIS Assessment/Plan Continue Abx f/u cultures Ct Abd/ pelvis for occult sourse of infection. f/u labs will follow. Discussed with nursing staff.
[2017-09-23 11:31] LABS: ANISOCYTOSIS 1+; MACROCYTOSIS 1+; PLATELET ESTIMATE DECREASED; TOXIC GRANULATION 1+
--- NOTE | 2017-09-23 11:56 | PN ---
Teaching Attending Note Name of Resident: Zenaida Baker ATTENDING PHYSICIAN STATEMENT I saw and evaluated the patient. I reviewed the resident's note and discussed the case with the resident. I agree with the resident's findings and plan as documented. SUBJECTIVE: Patient seen and examined in the ICU. Awake and less confused. Reports feeling better. (+) Fever and elevated WBC. CXR: Better inspiratory effort with improvig basilar atelectasis Intake & Output 09/20/17 09/21/17 09/22/17 09/23/17 23:59 23:59 23:59 23:59 Intake Total 1700 Output Total 1100 450 Balance 600 -450 Weight 145 lb Last Vital Signs Temp Pulse Resp BP Pulse Ox 97.6 F 92 H 27 H 105/71 96 09/23/17 10:00 09/23/17 10:00 09/23/17 10:00 09/23/17 10:00 09/23/17 09:00 Active Medications Acetaminophen (Tylenol Oral Solution -) 325 mg GT Q4HPO [facility] Last Admin: 09/23/17 01:41 Dose: 325 mg Amino Acids (Prosource No Carb Liquid Pkt) 30 ml GT BIDWM [facility] Last Admin: 09/23/17 09:27 Dose: 30 ml Aspirin (Asa -) 81 mg GT DAILY [facility] Last Admin: 09/23/17 09:28 Dose: 81 mg Atorvastatin Calcium (Lipitor -) 10 mg GT HS [facility] Last Admin: 09/22/17 21:43 Dose: 10 mg Chlorhexidine Gluconate (Hibiclens For Decolonization -) 1 applic TP HS [facility] Last Admin: 09/22/17 21:43 Dose: 1 applic Heparin Sodium (Porcine) (Heparin -) 5,000 unit SQ TID [facility] Last Admin: 09/23/17 09:27 Dose: 5,000 unit Sodium Chloride (1/2 Normal Saline) 1,000 mls @ 150 mls/hr IV ASDIR [facility] Last Admin: 09/23/17 09:29 Dose: 150 mls/hr Piperacillin/Tazobactam/Dextrose (Zosyn 3.375gm Ivpb (Premix)) 50 mls @ 100 mls /hr IVPB Q8H-IV [facility] PRN Reason: Protocol Last Admin: 09/23/17 09:35 Dose: 100 mls/hr Lacosamide (Vimpat Liquid -) 100 mg GT DAILY [facility] Last Admin: 09/23/17 09:25 Dose: 100 mg Levetiracetam (Keppra Oral Solution -) 500 mg GT BID [facility] Last Admin: 09/23/17 09:26 Dose: 500 mg Metoprolol Tartrate (Lopressor -) 25 mg GT BID [facility] Last Admin: 09/23/17 09:28 Dose: 25 mg Mupirocin (Bactroban Ointment (For Decolonization) -) 1 applic NS BID [facility] Stop: 09/27/17 09:59 Last Admin: 09/23/17 09:36 Dose: 1 applic Non-Formulary Medication (Vit A/Vitamin D3/E/Aloe V/Zinc [Periguard Ointment]) 5 gm TP DAILY [facility] Pneumococcal Polyvalent Vaccine (Pneumovax -) 0.5 ml IM .ONCE ONE Stop: 09/23/17 12:01 Senna (Senna Oral Solution -) 8.8 mg PO HS [facility] Last Admin: 09/22/17 21:42 Dose: 5 ml Valproate Sodium (Depakene -) 250 mg GT BID [facility] Last Admin: 09/23/17 09:26 Dose: 250 mg Constitutional: Yes: Awake, less confused, now interactive Eyes: Yes: Conjunctiva Clear, EOM Intact HENT: Yes: Atraumatic, Normocephalic Neck: Yes: Supple, Trachea Midline Cardiovascular: Yes: Regular Rate and Rhythm, (+) ESM Respiratory: Yes: Bilateral scattered rhonchi, On Nasal O2 Gastrointestinal: Yes: Normal Bowel Sounds, Soft. (+) mild tenderness Renal/: Yes: Bingham Present, Other (cloudy urine in bingham bag) Extremities: No: Calf Tenderness, Cold, Cyanosis, Erythema Edema: No Integumentary: Yes: Other (skin dry, tenting) Neurological: Yes: Less confusion, Other (moving all extremities) Psychiatric: No: Less confusion Labs: Laboratory Results - last 24 hr 09/22/17 09/22/17 09/22/17 17:20 17:20 17:20 WBC 18.3 H RBC 3.15 L Hgb 9.3 L Hct 28.5 L MCV 90.6 MCH 29.4 MCHC 32.5 RDW 16.2 H Plt Count 126 L MPV 11.4 H Neutrophils % 82.1 Neutrophils % (Manual) Band Neutrophils % Lymphocytes % 11.1 D Lymphocytes % (Manual) Monocytes % 6.6 Monocytes % (Manual) Eosinophils % 0.0 Eosinophils % (Manual) Basophils % 0.2 Basophils % (Manual) Myelocytes % (Man) Promyelocytes % (Man) Nucleated RBC % Metamyelocytes Hypochromia Toxic Granulation Dohle Bodies Platelet Estimate Polychromasia Poikilocytosis Anisocytosis Microcytosis Macrocytosis PT with INR INR PTT (Actin FS) Sodium 160 H Potassium 3.6 Chloride 127 H Carbon Dioxide 27 Anion Gap 6 L BUN 27 H Creatinine 0.9 Creat Clearance w eGFR > 60 Random Glucose 81 Lactic Acid 2.8 H* Calcium 8.1 L Phosphorus 2.8 Magnesium 2.1 Total Bilirubin 0.9 D AST 7 L ALT 7 L Alkaline Phosphatase 58 C-Reactive Protein Total Protein 6.1 L Albumin 2.2 L Random Vancomycin 09/23/17 09/23/17 09/23/17 05:00 05:00 05:00 WBC 20.9 H RBC 3.03 L Hgb 8.8 L Hct 27.5 L MCV 90.8 MCH 28.9 MCHC 31.8 L RDW 16.2 H Plt Count 129 L MPV 11.8 H Neutrophils % No Result Required. Neutrophils % (Manual) 38.8 L Band Neutrophils % 35.7 Lymphocytes % No Result Required. Lymphocytes % (Manual) 17.3 Monocytes % Monocytes % (Manual) 5 Eosinophils % Eosinophils % (Manual) 0.0 Basophils % Basophils % (Manual) 0.0 Myelocytes % (Man) 0 Promyelocytes % (Man) 0 Nucleated RBC % 0 Metamyelocytes 0 Hypochromia 0 Toxic Granulation 1+ Dohle Bodies 1+ Platelet Estimate Decreased Polychromasia 1+ Poikilocytosis 1+ Anisocytosis 1+ Microcytosis 1+ Macrocytosis 1+ PT with INR 15.00 H INR 1.33 H PTT (Actin FS) 34.3 Sodium 157 H Potassium 3.3 L Chloride 121 H Carbon Dioxide 25 Anion Gap 11 BUN 22 H Creatinine 0.8 Creat Clearance w eGFR > 60 Random Glucose 82 Lactic Acid Calcium 9.1 Phosphorus 3.3 Magnesium 2.4 Total Bilirubin 0.5 D AST 10 L ALT 9 L Alkaline Phosphatase 58 C-Reactive Protein Total Protein 5.9 L Albumin 2.0 L Random Vancomycin 09/23/17 09/23/17 08:20 08:20 WBC RBC Hgb Hct MCV MCH MCHC RDW Plt Count MPV Neutrophils % Neutrophils % (Manual) Band Neutrophils % Lymphocytes % Lymphocytes % (Manual) Monocytes % Monocytes % (Manual) Eosinophils % Eosinophils % (Manual) Basophils % Basophils % (Manual) Myelocytes % (Man) Promyelocytes % (Man) Nucleated RBC % Metamyelocytes Hypochromia Toxic Granulation Dohle Bodies Platelet Estimate Polychromasia Poikilocytosis Anisocytosis Microcytosis Macrocytosis PT with INR INR PTT (Actin FS) Sodium Potassium Chloride Carbon Dioxide Anion Gap BUN Creatinine Creat Clearance w eGFR Random Glucose Lactic Acid Calcium Phosphorus Magnesium Total Bilirubin AST ALT Alkaline Phosphatase C-Reactive Protein 26.0 H Total Protein Albumin Random Vancomycin 1.613 Assessment/Plan Sepsis due to suspected LLL PNA / UTI AMS Hypernatremia Electrolyte imbalance CT evaluation of the Abdomen/Pelvis IVF Strict I&O Broad ABX per ID O2 as needed Aspiration precautions Replete hiral Early Critical care time spent in reviewing chart, evaluating patient and formulating plan - 36 minutes.
[2017-09-23] MEDS ORDERED: PNEUMOCOCCAL 23 VACCINE 0.5 ML VIAL IM ONE (12:00)
[2017-09-23] MEDS ORDERED: POTASSIUM CHLORIDE ORAL LIQUID 20 MEQ/15 ML GT ONE (17:34)
[2017-09-23] MEDS: PIPERACILLIN/TAZOB 3.375 GM 3.375 GM in DEXTROSE 5%-WATER - 50 ML IVPB SCH (18:54)
[2017-09-23] MEDS: ATORVASTATIN CA 10 MG TABLET (FP) GT SCH (21:47)
[2017-09-23] MEDS: SENNOSIDES 8.8 MG/5 ML BULK BOTTLE PO SCH (21:57)
[2017-09-23] MEDS ORDERED: MUPIROCIN 2% TOPICAL OINTMENT FOR DECOLONIZATION NS SCH (22:00)
[2017-09-23] MEDS ORDERED: CHLORHEXIDINE GLUCONATE 4% CLEANSER FOR DECOLONIZATION TP SCH (22:00)
[2017-09-24] MEDS: ACETAMINOPHEN 650 MG/20.3 ML ORAL SOLUTION (CUPS) GT SCH ×6 (02:01→21:56)
[2017-09-24] MEDS: PIPERACILLIN/TAZOB 3.375 GM 3.375 GM in DEXTROSE 5%-WATER - 50 ML IVPB SCH ×3 (02:03→17:00)
[2017-09-24] MEDS ORDERED: PT OWN MED DRAWER 7, Y5N ONE ×3 (05:45→16:42)
[2017-09-24] MEDS: HEPARIN NA (PORCINE) 5,000 UNITS/ML 1ML VIAL SQ SCH ×3 (05:52→21:57)
[2017-09-24 06:55] LABS: BASO % 0.3 % (0-2.0); EOS % 1.6 % (0-4.5); HEMATOCRIT 27.2 % (32.4-45.2); HEMOGLOBIN 8.8 GM/dL (10.7-15.3); LYMPH % 15.6 % (8-40); MCH 28.9 pg (25.7-33.7); MCHC 32.3 g/dl (32.0-36.0); MEAN CELL VOLUME 89.4 fl (80-96); MEAN PLT VOLUME 11.5 fl (7.5-11.1); NEUT % 78.5 % (42.8-82.8); PLATELET COUNT 160 K/MM3 (134-434); RBC 3.04 M/mm3 (3.60-5.2); RDW 16.3 % (11.6-15.6); WHITE BLOOD COUNT 13.5 K/mm3 (4.0-10.0)
[2017-09-24 07:10] LABS: CHLORIDE 117 mmol/L (98-107); POTASSIUM 3.4 mmol/L (3.5-5.1); SODIUM 152 mmol/L (136-145)
[2017-09-24 07:36] LABS: ALK PHOS 59 U/L (45-117); ANION GAP 12 (8-16); BILIRUBIN,TOTAL 0.5 mg/dL (0.2-1.0); BLOOD UREA NITROGEN 14 mg/dL (7-18); CALCIUM 9.2 mg/dL (8.5-10.1); CO2 23 mmol/L (21-32); CREATININE 0.7 mg/dL (0.55-1.02); GLUCOSE,RANDOM 72 mg/dL (74-106); INR 1.07 (0.82-1.09); MAGNESIUM 2.1 mg/dL (1.8-2.4); PHOSPHOROUS 3.5 mg/dL (2.5-4.9); PROTHROMBIN TIME (PATIENT) 12.1 SEC (9.98-11.88); SGOT/AST 11 U/L (15-37); SGPT/ALT 10 U/L (12-78); TOT PROT 5.8 g/dl (6.4-8.2)
[2017-09-24 07:37] LABS: ACTIVATED PTT 31.2 SECONDS (26.9-34.4)
[2017-09-24] MEDS: SODIUM CHLORIDE 0.45% 1,000 ML IV SCH (08:46)
[2017-09-24] MEDS: AMINO ACIDS/PROTEIN HYDROLYS 30 ML LIQUID.PKT GT SCH ×2 (09:09→16:48)
[2017-09-24] MEDS: Lacosamide 50 MG/5 ML ORAL SOLUTION UNIT CUPS GT SCH (09:09)
[2017-09-24] MEDS: METOPROLOL TARTRATE 25 MG TABLET (FP) GT SCH ×2 (09:10→21:56)
[2017-09-24] MEDS: levETIRAcetam 500 MG/5 ML ORAL SOLUTION (UNIT-DOSE CUPS) GT SCH ×2 (09:10→21:55)
[2017-09-24] MEDS: ASPIRIN 81 MG CHEWABLE TABLETS GT SCH (09:10)
[2017-09-24] MEDS: VALPROATE SODIUM 250 MG/5 ML UNIT DOSE CUP GT SCH ×2 (09:10→21:56)
--- NOTE | 2017-09-24 10:41 | PN ---
Progress Note, Physician Chief Complaint: ID Jaylene day 3 Dialysis in progress - Current Medication List Current Medications: Active Medications Acetaminophen (Tylenol Oral Solution -) 325 mg GT Q4HPO [facility] Last Admin: 09/24/17 10:02 Dose: 325 mg Amino Acids (Prosource No Carb Liquid Pkt) 30 ml GT BIDWM [facility] Last Admin: 09/24/17 09:09 Dose: 30 ml Aspirin (Asa -) 81 mg GT DAILY [facility] Last Admin: 09/24/17 09:10 Dose: 81 mg Atorvastatin Calcium (Lipitor -) 10 mg GT HS [facility] Last Admin: 09/23/17 21:47 Dose: 10 mg Heparin Sodium (Porcine) (Heparin -) 5,000 unit SQ TID [facility] Last Admin: 09/24/17 05:52 Dose: 5,000 unit Sodium Chloride (1/2 Normal Saline) 1,000 mls @ 150 mls/hr IV ASDIR [facility] Last Admin: 09/24/17 08:46 Dose: 150 mls/hr Piperacillin Sod/Tazobactam (Sod 3.375 gm/ Dextrose) 50 mls @ 100 mls/hr IVPB Q8H-IV [facility] PRN Reason: Protocol Last Admin: 09/24/17 10:37 Dose: 100 mls/hr Lacosamide (Vimpat Liquid -) 100 mg GT DAILY [facility] Last Admin: 09/24/17 09:09 Dose: 100 mg Levetiracetam (Keppra Oral Solution -) 500 mg GT BID [facility] Last Admin: 09/24/17 09:10 Dose: 500 mg Metoprolol Tartrate (Lopressor -) 25 mg GT BID [facility] Last Admin: 09/24/17 09:10 Dose: 25 mg Senna (Senna Oral Solution -) 8.8 mg PO HS [facility] Last Admin: 09/23/17 21:57 Dose: Not Given Valproate Sodium (Depakene -) 250 mg GT BID [facility] Last Admin: 09/24/17 09:10 Dose: 250 mg - Objective Vital Signs: Vital Signs Temperature 98 F 09/24/17 10:00 Pulse Rate 80 09/24/17 10:00 Respiratory Rate 18 09/24/17 10:00 Blood Pressure 102/68 09/24/17 10:00 O2 Sat by Pulse Oximetry (%) 99 09/23/17 21:00 Constitutional: Yes: Well Nourished, No Distress Cardiovascular: Yes: S1, S2 Respiratory: Yes: WNL, Regular, CTA Bilaterally Extremities: Yes: Other (AV fistula) Labs: CBC, BMP 09/24/17 05:10 09/24/17 05:10 INR, PTT INR 1.07 (0.82-1.09) 09/24/17 05:10 Problem List - Problems (1) Sepsis Code(s): A41.9 - SEPSIS, UNSPECIFIED ORGANISM Qualifiers: Sepsis type: sepsis due to unspecified organism Qualified Code(s): A41.9 - Sepsis, unspecified organism (2) UTI (urinary tract infection) Code(s): N39.0 - URINARY TRACT INFECTION, SITE NOT SPECIFIED Assessment/Plan Microbiology 09/22/17 05:17 Urine - Urine - Catheterized Urine Culture - Final NO GROWTH OBTAINED 09/22/17 03:17 Blood - Peripheral Venous Blood Culture - Preliminary NO GROWTH OBTAINED AFTER 48 HOURS, INCUBATION TO CONTINUE FOR 3 DAYS. 09/22/17 03:17 Blood - Peripheral Venous Blood Culture - Preliminary NO GROWTH OBTAINED AFTER 48 HOURS, INCUBATION TO CONTINUE FOR 3 DAYS. Laboratory Tests 09/23/17 09/24/17 05:00 05:10 WBC 20.9 H 13.5 H D Plt Count [address] consolidation but no intrabd pathology Assessment ESRD Fever to 103 culture negative/ Sepsis improving Pneumonia Plan Continue antibiotic through the weekend reassess on tuesday Adele ALVAREZ
--- NOTE | 2017-09-24 10:51 | PN ---
Progress Note (short form) - Note Progress Note: ID Revised note the ID note preceeding this under my name is for another patient not Genice Zosyn day 2 therapy Appears comfortable Selected Entries 09/24/17 10:00 Temperature 98 F Pulse Rate 80 Respiratory 18 Rate Blood Pressure 102/68 Lung Clear Cor S1 S2 RR Abd Soft nontender Ext NO edema Microbiology 09/22/17 05:17 Urine - Urine - Catheterized Urine Culture - Final NO GROWTH OBTAINED 09/22/17 03:17 Blood - Peripheral Venous Blood Culture - Preliminary NO GROWTH OBTAINED AFTER 48 HOURS, INCUBATION TO CONTINUE FOR 3 DAYS. 09/22/17 03:17 Blood - Peripheral Venous Blood Culture - Preliminary NO GROWTH OBTAINED AFTER 48 HOURS, INCUBATION TO CONTINUE FOR 3 DAYS. Laboratory Tests 09/23/17 09/24/17 09/24/17 05:00 05:10 05:10 WBC 20.9 H 13.5 H D Hgb 8.8 L Hct 27.2 L Plt Count 160 D BUN 14 Creatinine 0.7 Assessment Fever 103 sepsis Pneumonia unspecified improving culture no growth Plan Continue current therapy antibiotic PNA as ordered few more days Adele ALVAREZ Problem List - Problems (1) Sepsis Code(s): A41.9 - SEPSIS, UNSPECIFIED ORGANISM Qualifiers: Sepsis type: sepsis due to unspecified organism Qualified Code(s): A41.9 - Sepsis, unspecified organism (2) UTI (urinary tract infection) Code(s): N39.0 - URINARY TRACT INFECTION, SITE NOT SPECIFIED
--- NOTE | 2017-09-24 11:04 | PN ---
Progress Note, Physician Chief Complaint: Awake no complaints looks comfortable - Current Medication List Current Medications: Active Medications Acetaminophen (Tylenol Oral Solution -) 325 mg GT Q4HPO [facility] Last Admin: 09/24/17 10:02 Dose: 325 mg Amino Acids (Prosource No Carb Liquid Pkt) 30 ml GT BIDWM [facility] Last Admin: 09/24/17 09:09 Dose: 30 ml Aspirin (Asa -) 81 mg GT DAILY [facility] Last Admin: 09/24/17 09:10 Dose: 81 mg Atorvastatin Calcium (Lipitor -) 10 mg GT HS [facility] Last Admin: 09/23/17 21:47 Dose: 10 mg Heparin Sodium (Porcine) (Heparin -) 5,000 unit SQ TID [facility] Last Admin: 09/24/17 05:52 Dose: 5,000 unit Sodium Chloride (1/2 Normal Saline) 1,000 mls @ 150 mls/hr IV ASDIR [facility] Last Admin: 09/24/17 08:46 Dose: 150 mls/hr Piperacillin Sod/Tazobactam (Sod 3.375 gm/ Dextrose) 50 mls @ 100 mls/hr IVPB Q8H-IV [facility] PRN Reason: Protocol Last Admin: 09/24/17 10:37 Dose: 100 mls/hr Lacosamide (Vimpat Liquid -) 100 mg GT DAILY [facility] Last Admin: 09/24/17 09:09 Dose: 100 mg Levetiracetam (Keppra Oral Solution -) 500 mg GT BID [facility] Last Admin: 09/24/17 09:10 Dose: 500 mg Metoprolol Tartrate (Lopressor -) 25 mg GT BID [facility] Last Admin: 09/24/17 09:10 Dose: 25 mg Senna (Senna Oral Solution -) 8.8 mg PO HS [facility] Last Admin: 09/23/17 21:57 Dose: Not Given Valproate Sodium (Depakene -) 250 mg GT BID [facility] Last Admin: 09/24/17 09:10 Dose: 250 mg - Objective Vital Signs: Vital Signs Temperature 98 F 09/24/17 10:00 Pulse Rate 80 09/24/17 10:00 Respiratory Rate 18 09/24/17 10:00 Blood Pressure 102/68 09/24/17 10:00 O2 Sat by Pulse Oximetry (%) 99 09/23/17 21:00 Cardiovascular: Yes: Regular Rate and Rhythm Respiratory: Yes: Diminished Gastrointestinal: Yes: Normal Bowel Sounds, Soft, Other (GT). No: Tenderness Edema: No Labs: CBC, BMP 09/24/17 05:10 09/24/17 05:10 INR, PTT INR 1.07 (0.82-1.09) 09/24/17 05:10 Problem List - Problems (1) Pneumonia Code(s): J18.9 - PNEUMONIA, UNSPECIFIED ORGANISM (2) Sepsis Code(s): A41.9 - SEPSIS, UNSPECIFIED ORGANISM Qualifiers: Sepsis type: sepsis due to unspecified organism Qualified Code(s): A41.9 - Sepsis, unspecified organism (3) UTI (urinary tract infection) Code(s): N39.0 - URINARY TRACT INFECTION, SITE NOT SPECIFIED (4) Failure to thrive in adult Code(s): R62.7 - ADULT FAILURE TO THRIVE Assessment/Plan CT abd noted on iv antibiotics nebs O2 as needed continue with meds resume GT feeding
[2017-09-24] MEDS ORDERED: SODIUM CHLORIDE 0.45% 1,000 ML IV SCH (11:29)
[2017-09-24] MEDS: SODIUM CHLORIDE 0.45% 1,000 ML with POTASSIUM CHLORIDE 10 MEQ IV SCH ×2 (13:05→22:54)
--- NOTE | 2017-09-24 13:29 | PN ---
Progress Note, Physician Chief Complaint: APPEARS STABLE History of Present Illness: REVIEWED - Current Medication List Current Medications: Active Medications Acetaminophen (Tylenol Oral Solution -) 325 mg GT Q4HPO [facility] Last Admin: 09/24/17 10:02 Dose: 325 mg Amino Acids (Prosource No Carb Liquid Pkt) 30 ml GT BIDWM [facility] Last Admin: 09/24/17 09:09 Dose: 30 ml Aspirin (Asa -) 81 mg GT DAILY [facility] Last Admin: 09/24/17 09:10 Dose: 81 mg Atorvastatin Calcium (Lipitor -) 10 mg GT HS [facility] Last Admin: 09/23/17 21:47 Dose: 10 mg Heparin Sodium (Porcine) (Heparin -) 5,000 unit SQ TID [facility] Last Admin: 09/24/17 05:52 Dose: 5,000 unit Piperacillin Sod/Tazobactam (Sod 3.375 gm/ Dextrose) 50 mls @ 100 mls/hr IVPB Q8H-IV [facility] PRN Reason: Protocol Last Admin: 09/24/17 10:37 Dose: 100 mls/hr Potassium Chloride 10 meq/ (Sodium Chloride) 1,005 mls @ 100 mls/hr IV Q10H [facility] Last Admin: 09/24/17 13:05 Dose: 100 mls/hr Lacosamide (Vimpat Liquid -) 100 mg GT DAILY [facility] Last Admin: 09/24/17 09:09 Dose: 100 mg Levetiracetam (Keppra Oral Solution -) 500 mg GT BID [facility] Last Admin: 09/24/17 09:10 Dose: 500 mg Metoprolol Tartrate (Lopressor -) 25 mg GT BID [facility] Last Admin: 09/24/17 09:10 Dose: 25 mg Senna (Senna Oral Solution -) 8.8 mg PO HS [facility] Last Admin: 09/23/17 21:57 Dose: Not Given Valproate Sodium (Depakene -) 250 mg GT BID [facility] Last Admin: 09/24/17 09:10 Dose: 250 mg - Objective Vital Signs: Vital Signs Temperature 98 F 09/24/17 10:00 Pulse Rate 80 09/24/17 10:00 Respiratory Rate 18 09/24/17 10:00 Blood Pressure 102/68 09/24/17 10:00 O2 Sat by Pulse Oximetry (%) 99 09/23/17 21:00 Constitutional: Yes: Calm Eyes: Yes: EOM Intact HENT: Yes: Normocephalic Neck: Yes: Trachea Midline Cardiovascular: Yes: S1, S2 Respiratory: Yes: Diminished (BIBASILAR) Gastrointestinal: Yes: Soft Edema: LLE: Trace, RLE: Trace Labs: CBC, BMP 09/24/17 05:10 09/24/17 05:10 INR, PTT INR 1.07 (0.82-1.09) 09/24/17 05:10 - ....Imaging Chest X-ray: Report Reviewed Cat Scan: Report Reviewed Problem List - Problems (1) Pneumonia Code(s): J18.9 - PNEUMONIA, UNSPECIFIED ORGANISM (2) Sepsis Code(s): A41.9 - SEPSIS, UNSPECIFIED ORGANISM Qualifiers: Sepsis type: sepsis due to unspecified organism Qualified Code(s): A41.9 - Sepsis, unspecified organism (3) CVA (cerebral vascular accident) Code(s): I63.9 - CEREBRAL INFARCTION, UNSPECIFIED Qualifiers: CVA mechanism: unspecified Qualified Code(s): I63.9 - Cerebral infarction, unspecified (4) Failure to thrive in adult Code(s): R62.7 - ADULT FAILURE TO THRIVE Assessment/Plan Bibasilar consolidations on CT abd AMS Hypernatremia Electrolyte imbalance IVF Strict I&O Broad ABX per ID O2 as needed Aspiration precautions Replete hiral PRIETO MD
[2017-09-24] MEDS: SENNOSIDES 8.8 MG/5 ML BULK BOTTLE PO SCH (21:55)
[2017-09-24] MEDS: ATORVASTATIN CA 10 MG TABLET (FP) GT SCH (21:56)
[2017-09-25] MEDS: PIPERACILLIN/TAZOB 3.375 GM 3.375 GM in DEXTROSE 5%-WATER - 50 ML IVPB SCH ×3 (01:06→16:59)
[2017-09-25] MEDS: ACETAMINOPHEN 650 MG/20.3 ML ORAL SOLUTION (CUPS) GT SCH ×6 (01:56→21:48)
[2017-09-25] MEDS: HEPARIN NA (PORCINE) 5,000 UNITS/ML 1ML VIAL SQ SCH ×3 (06:11→21:50)
[2017-09-25 06:43] LABS: ANION GAP 11 (8-16); BLOOD UREA NITROGEN 13 mg/dL (7-18); CALCIUM 8.5 mg/dL (8.5-10.1); CHLORIDE 116 mmol/L (98-107); CO2 22 mmol/L (21-32); CREATININE 0.6 mg/dL (0.55-1.02); GLUCOSE,RANDOM 122 mg/dL (74-106); POTASSIUM 3.4 mmol/L (3.5-5.1); SODIUM 149 mmol/L (136-145)
[2017-09-25] MEDS: ASPIRIN 81 MG CHEWABLE TABLETS GT SCH (09:01)
[2017-09-25] MEDS: VALPROATE SODIUM 250 MG/5 ML UNIT DOSE CUP GT SCH ×2 (09:01→21:48)
[2017-09-25] MEDS: Lacosamide 50 MG/5 ML ORAL SOLUTION UNIT CUPS GT SCH (09:02)
[2017-09-25] MEDS: AMINO ACIDS/PROTEIN HYDROLYS 30 ML LIQUID.PKT GT SCH ×2 (09:02→17:00)
[2017-09-25] MEDS: METOPROLOL TARTRATE 25 MG TABLET (FP) GT SCH ×2 (09:02→21:50)
[2017-09-25] MEDS: levETIRAcetam 500 MG/5 ML ORAL SOLUTION (UNIT-DOSE CUPS) GT SCH ×2 (09:02→21:50)
[2017-09-25] MEDS ORDERED: POTASSIUM CHLORIDE ORAL LIQUID 20 MEQ/15 ML GT ONE (10:58)
[2017-09-25] MEDS: SODIUM CHLORIDE 0.45% 1,000 ML with POTASSIUM CHLORIDE 10 MEQ IV SCH ×2 (11:30→17:00)
--- NOTE | 2017-09-25 12:03 | PN ---
Progress Note, Physician Chief Complaint: Awake no complaints looks comfortable - Current Medication List Current Medications: Active Medications Acetaminophen (Tylenol Oral Solution -) 325 mg GT Q4HPO [facility] Last Admin: 09/25/17 09:01 Dose: 325 mg Amino Acids (Prosource No Carb Liquid Pkt) 30 ml GT BIDWM [facility] Last Admin: 09/25/17 09:02 Dose: 30 ml Aspirin (Asa -) 81 mg GT DAILY [facility] Last Admin: 09/25/17 09:01 Dose: 81 mg Atorvastatin Calcium (Lipitor -) 10 mg GT HS [facility] Last Admin: 09/24/17 21:56 Dose: 10 mg Heparin Sodium (Porcine) (Heparin -) 5,000 unit SQ TID [facility] Last Admin: 09/25/17 06:11 Dose: 5,000 unit Piperacillin Sod/Tazobactam (Sod 3.375 gm/ Dextrose) 50 mls @ 100 mls/hr IVPB Q8H-IV [facility] PRN Reason: Protocol Last Admin: 09/25/17 09:02 Dose: 100 mls/hr Potassium Chloride 10 meq/ (Sodium Chloride) 1,005 mls @ 100 mls/hr IV Q10H [facility] Last Admin: 09/25/17 11:30 Dose: 100 mls/hr Lacosamide (Vimpat Liquid -) 100 mg GT DAILY [facility] Last Admin: 09/25/17 09:02 Dose: 100 mg Levetiracetam (Keppra Oral Solution -) 500 mg GT BID [facility] Last Admin: 09/25/17 09:02 Dose: 500 mg Metoprolol Tartrate (Lopressor -) 25 mg GT BID [facility] Last Admin: 09/25/17 09:02 Dose: Not Given Senna (Senna Oral Solution -) 8.8 mg PO HS [facility] Last Admin: 09/24/17 21:55 Dose: Not Given Valproate Sodium (Depakene -) 250 mg GT BID [facility] Last Admin: 09/25/17 09:01 Dose: 250 mg - Objective Vital Signs: Vital Signs Temperature 98.5 F 09/25/17 05:25 Pulse Rate 71 09/25/17 05:25 Respiratory Rate 20 09/25/17 05:25 Blood Pressure 98/65 09/25/17 05:25 O2 Sat by Pulse Oximetry (%) 94 L 09/24/17 21:00 Constitutional: Yes: No Distress Cardiovascular: Yes: Regular Rate and Rhythm Respiratory: Yes: Diminished Gastrointestinal: Yes: Normal Bowel Sounds, Soft, Other (gt). No: Tenderness Edema: No Labs: CBC, BMP 09/24/17 05:10 09/25/17 05:05 INR, PTT INR 1.07 (0.82-1.09) 09/24/17 05:10 Problem List - Problems (1) Pneumonia Code(s): J18.9 - PNEUMONIA, UNSPECIFIED ORGANISM (2) Sepsis Code(s): A41.9 - SEPSIS, UNSPECIFIED ORGANISM Qualifiers: Sepsis type: sepsis due to unspecified organism Qualified Code(s): A41.9 - Sepsis, unspecified organism (3) UTI (urinary tract infection) Code(s): N39.0 - URINARY TRACT INFECTION, SITE NOT SPECIFIED (4) Failure to thrive in adult Code(s): R62.7 - ADULT FAILURE TO THRIVE Assessment/Plan CT abd noted on iv antibiotics nebs O2 as needed continue with meds continue GT feeding decrease fluids
--- NOTE | 2017-09-25 12:19 | PN ---
Progress Note, Physician Chief Complaint: APPEARS STABLE History of Present Illness: REVIEWED - Current Medication List Current Medications: Active Medications Acetaminophen (Tylenol Oral Solution -) 325 mg GT Q4HPO [facility] Last Admin: 09/25/17 09:01 Dose: 325 mg Amino Acids (Prosource No Carb Liquid Pkt) 30 ml GT BIDWM [facility] Last Admin: 09/25/17 09:02 Dose: 30 ml Aspirin (Asa -) 81 mg GT DAILY [facility] Last Admin: 09/25/17 09:01 Dose: 81 mg Atorvastatin Calcium (Lipitor -) 10 mg GT HS [facility] Last Admin: 09/24/17 21:56 Dose: 10 mg Heparin Sodium (Porcine) (Heparin -) 5,000 unit SQ TID [facility] Last Admin: 09/25/17 06:11 Dose: 5,000 unit Piperacillin Sod/Tazobactam (Sod 3.375 gm/ Dextrose) 50 mls @ 100 mls/hr IVPB Q8H-IV [facility] PRN Reason: Protocol Last Admin: 09/25/17 09:02 Dose: 100 mls/hr Potassium Chloride 10 meq/ (Sodium Chloride) 1,005 mls @ 100 mls/hr IV Q10H [facility] Last Admin: 09/25/17 11:30 Dose: 100 mls/hr Lacosamide (Vimpat Liquid -) 100 mg GT DAILY [facility] Last Admin: 09/25/17 09:02 Dose: 100 mg Levetiracetam (Keppra Oral Solution -) 500 mg GT BID [facility] Last Admin: 09/25/17 09:02 Dose: 500 mg Metoprolol Tartrate (Lopressor -) 25 mg GT BID [facility] Last Admin: 09/25/17 09:02 Dose: Not Given Senna (Senna Oral Solution -) 8.8 mg PO HS [facility] Last Admin: 09/24/17 21:55 Dose: Not Given Valproate Sodium (Depakene -) 250 mg GT BID [facility] Last Admin: 09/25/17 09:01 Dose: 250 mg - Objective Vital Signs: Vital Signs Temperature 98.5 F 09/25/17 05:25 Pulse Rate 71 09/25/17 05:25 Respiratory Rate 20 09/25/17 05:25 Blood Pressure 98/65 09/25/17 05:25 O2 Sat by Pulse Oximetry (%) 94 L 09/24/17 21:00 Constitutional: Yes: Calm Eyes: Yes: EOM Intact HENT: Yes: Normocephalic Neck: Yes: Trachea Midline Cardiovascular: Yes: S1, S2 Respiratory: Yes: Diminished Gastrointestinal: Yes: Soft Edema: No Labs: CBC, BMP 09/24/17 05:10 09/25/17 05:05 INR, PTT INR 1.07 (0.82-1.09) 09/24/17 05:10 Problem List - Problems (1) Pneumonia Code(s): J18.9 - PNEUMONIA, UNSPECIFIED ORGANISM (2) Sepsis Code(s): A41.9 - SEPSIS, UNSPECIFIED ORGANISM Qualifiers: Sepsis type: sepsis due to unspecified organism Qualified Code(s): A41.9 - Sepsis, unspecified organism (3) CVA (cerebral vascular accident) Code(s): I63.9 - CEREBRAL INFARCTION, UNSPECIFIED Qualifiers: CVA mechanism: unspecified Qualified Code(s): I63.9 - Cerebral infarction, unspecified (4) Failure to thrive in adult Code(s): R62.7 - ADULT FAILURE TO THRIVE Assessment/Plan Bibasilar consolidations on CT abd AMS Hypernatremia Electrolyte imbalance IVF Strict I&O Broad ABX per ID O2 as needed Aspiration precautions Replete hiral PRIETO MD
[2017-09-25] MEDS ORDERED: PT OWN MED DRAWER 7, Y5N ONE (16:59)
[2017-09-25] MEDS: ATORVASTATIN CA 10 MG TABLET (FP) GT SCH (21:50)
[2017-09-25] MEDS: SENNOSIDES 8.8 MG/5 ML BULK BOTTLE PO SCH (21:50)
[2017-09-26] MEDS: ACETAMINOPHEN 650 MG/20.3 ML ORAL SOLUTION (CUPS) GT SCH ×6 (01:33→22:17)
[2017-09-26] MEDS: PIPERACILLIN/TAZOB 3.375 GM 3.375 GM in DEXTROSE 5%-WATER - 50 ML IVPB SCH ×3 (01:33→17:55)
[2017-09-26] MEDS: SODIUM CHLORIDE 0.45% 1,000 ML with POTASSIUM CHLORIDE 10 MEQ IV SCH ×2 (01:34→15:17)
[2017-09-26] MEDS: HEPARIN NA (PORCINE) 5,000 UNITS/ML 1ML VIAL SQ SCH ×3 (06:07→22:18)
[2017-09-26 07:20] LABS: ANION GAP 12 (8-16); BLOOD UREA NITROGEN 10 mg/dL (7-18); CALCIUM 8.5 mg/dL (8.5-10.1); CHLORIDE 110 mmol/L (98-107); CO2 23 mmol/L (21-32); CREATININE 0.5 mg/dL (0.55-1.02); GLUCOSE,RANDOM 89 mg/dL (74-106); POTASSIUM 3.3 mmol/L (3.5-5.1); SODIUM 145 mmol/L (136-145)
[2017-09-26 07:26] LABS: HEMATOCRIT 28.7 % (32.4-45.2); HEMOGLOBIN 9.4 GM/dL (10.7-15.3); MCH 28.8 pg (25.7-33.7); MCHC 32.6 g/dl (32.0-36.0); MEAN CELL VOLUME 88.4 fl (80-96); MEAN PLT VOLUME 10.6 fl (7.5-11.1); PLATELET COUNT 202 K/MM3 (134-434); RBC 3.25 M/mm3 (3.60-5.2); RDW 15.7 % (11.6-15.6); WHITE BLOOD COUNT 8.4 K/mm3 (4.0-10.0)
--- NOTE | 2017-09-26 08:33 | PN ---
Progress Note, Physician Chief Complaint: ID Day 4 antibiotic with Pip Tazo IN good spirits NAD NO SOB no couph - Current Medication List Current Medications: Active Medications Acetaminophen (Tylenol Oral Solution -) 325 mg GT Q4HPO [facility] Last Admin: 09/26/17 06:07 Dose: 325 mg Amino Acids (Prosource No Carb Liquid Pkt) 30 ml GT BIDWM [facility] Last Admin: 09/25/17 17:00 Dose: 30 ml Aspirin (Asa -) 81 mg GT DAILY [facility] Last Admin: 09/25/17 09:01 Dose: 81 mg Atorvastatin Calcium (Lipitor -) 10 mg GT HS [facility] Last Admin: 09/25/17 21:50 Dose: 10 mg Heparin Sodium (Porcine) (Heparin -) 5,000 unit SQ TID [facility] Last Admin: 09/26/17 06:07 Dose: 5,000 unit Piperacillin Sod/Tazobactam (Sod 3.375 gm/ Dextrose) 50 mls @ 100 mls/hr IVPB Q8H-IV [facility] PRN Reason: Protocol Last Admin: 09/26/17 01:33 Dose: 100 mls/hr Potassium Chloride 10 meq/ (Sodium Chloride) 1,005 mls @ 80 mls/hr IV Q12H [facility] Last Admin: 09/26/17 01:34 Dose: 80 mls/hr Lacosamide (Vimpat Liquid -) 100 mg GT DAILY [facility] Last Admin: 09/25/17 09:02 Dose: 100 mg Levetiracetam (Keppra Oral Solution -) 500 mg GT BID [facility] Last Admin: 09/25/17 21:50 Dose: 500 mg Metoprolol Tartrate (Lopressor -) 25 mg GT BID [facility] Last Admin: 09/25/17 21:50 Dose: 25 mg Senna (Senna Oral Solution -) 8.8 mg PO HS [facility] Last Admin: 09/25/17 21:50 Dose: 8.8 mg Valproate Sodium (Depakene -) 250 mg GT BID [facility] Last Admin: 09/25/17 21:48 Dose: 250 mg - Objective Vital Signs: Vital Signs Temperature 98.3 F 09/26/17 05:37 Pulse Rate 73 09/26/17 05:37 Respiratory Rate 20 09/26/17 05:37 Blood Pressure 117/60 09/26/17 05:37 O2 Sat by Pulse Oximetry (%) 95 09/25/17 20:37 Constitutional: Yes: No Distress HENT: Yes: WNL, Atraumatic Neck: Yes: WNL, Supple Cardiovascular: Yes: Regular Rate and Rhythm, S1, S2 Respiratory: Yes: WNL, Regular, CTA Bilaterally Gastrointestinal: Yes: WNL, Normal Bowel Sounds, Soft. No: Tenderness, Tenderness, Epigastrium Edema: No Labs: CBC, BMP 09/26/17 06:25 09/26/17 06:25 INR, PTT INR 1.07 (0.82-1.09) 09/24/17 05:10 Problem List - Problems (1) Sepsis Code(s): A41.9 - SEPSIS, UNSPECIFIED ORGANISM Qualifiers: Sepsis type: sepsis due to unspecified organism Qualified Code(s): A41.9 - Sepsis, unspecified organism (2) UTI (urinary tract infection) Code(s): N39.0 - URINARY TRACT INFECTION, SITE NOT SPECIFIED Assessment/Plan Microbiology 09/22/17 05:17 Urine - Urine - Catheterized Urine Culture - Final NO GROWTH OBTAINED 09/22/17 03:17 Blood - Peripheral Venous Blood Culture - Preliminary NO GROWTH OBTAINED AFTER 96 HOURS, INCUBATION TO CONTINUE FOR 1 DAYS. 09/22/17 03:17 Blood - Peripheral Venous Blood Culture - Preliminary NO GROWTH OBTAINED AFTER 96 HOURS, INCUBATION TO CONTINUE FOR 1 DAYS. Laboratory Tests 09/26/17 09/26/17 06:25 06:25 WBC 8.4 D Hgb 9.4 L Plt Count 202 D BUN 10 Creatinine 0.5 L Assessment Pneumonia possible aspiration unspecified etiology improving Plan Would consider discharge tomorrow on Augmentin suspension for another 2 days after that Kindly recall as needed Adele ALVAREZ
[2017-09-26] MEDS ORDERED: PT OWN MED DRAWER 7, Y5N ONE ×2 (08:54→17:52)
[2017-09-26] MEDS: Lacosamide 50 MG/5 ML ORAL SOLUTION UNIT CUPS GT SCH (09:00)
[2017-09-26] MEDS: AMINO ACIDS/PROTEIN HYDROLYS 30 ML LIQUID.PKT GT SCH ×2 (09:01→17:54)
[2017-09-26] MEDS: ASPIRIN 81 MG CHEWABLE TABLETS GT SCH (09:01)
[2017-09-26] MEDS: levETIRAcetam 500 MG/5 ML ORAL SOLUTION (UNIT-DOSE CUPS) GT SCH ×2 (09:02→22:18)
[2017-09-26] MEDS: VALPROATE SODIUM 250 MG/5 ML UNIT DOSE CUP GT SCH ×2 (09:02→22:18)
[2017-09-26] MEDS: METOPROLOL TARTRATE 25 MG TABLET (FP) GT SCH ×2 (09:02→22:18)
--- NOTE | 2017-09-26 11:32 | PN ---
Progress Note, Physician History of Present Illness: pulmonary awake,still confused ,-resp distress - Current Medication List Current Medications: Active Medications Acetaminophen (Tylenol Oral Solution -) 325 mg GT Q4HPO [facility] Last Admin: 09/26/17 09:00 Dose: 325 mg Amino Acids (Prosource No Carb Liquid Pkt) 30 ml GT BIDWM [facility] Last Admin: 09/26/17 09:01 Dose: 30 ml Aspirin (Asa -) 81 mg GT DAILY [facility] Last Admin: 09/26/17 09:01 Dose: 81 mg Atorvastatin Calcium (Lipitor -) 10 mg GT HS [facility] Last Admin: 09/25/17 21:50 Dose: 10 mg Heparin Sodium (Porcine) (Heparin -) 5,000 unit SQ TID [facility] Last Admin: 09/26/17 06:07 Dose: 5,000 unit Piperacillin Sod/Tazobactam (Sod 3.375 gm/ Dextrose) 50 mls @ 100 mls/hr IVPB Q8H-IV [facility] PRN Reason: Protocol Last Admin: 09/26/17 08:59 Dose: 100 mls/hr Potassium Chloride 10 meq/ (Sodium Chloride) 1,005 mls @ 80 mls/hr IV Q12H [facility] Last Admin: 09/26/17 01:34 Dose: 80 mls/hr Lacosamide (Vimpat Liquid -) 100 mg GT DAILY [facility] Last Admin: 09/26/17 09:00 Dose: 100 mg Levetiracetam (Keppra Oral Solution -) 500 mg GT BID [facility] Last Admin: 09/26/17 09:02 Dose: 500 mg Metoprolol Tartrate (Lopressor -) 25 mg GT BID [facility] Last Admin: 09/26/17 09:02 Dose: Not Given Senna (Senna Oral Solution -) 8.8 mg PO HS [facility] Last Admin: 09/25/17 21:50 Dose: 8.8 mg Valproate Sodium (Depakene -) 250 mg GT BID [facility] Last Admin: 09/26/17 09:02 Dose: 250 mg - Objective Vital Signs: Vital Signs Temperature 98.8 F 09/26/17 09:00 Pulse Rate 69 09/26/17 09:00 Respiratory Rate 20 09/26/17 09:00 Blood Pressure 113/70 09/26/17 09:00 O2 Sat by Pulse Oximetry (%) 98 09/26/17 09:00 Constitutional: Yes: Well Nourished, Calm Eyes: Yes: WNL HENT: Yes: WNL Neck: Yes: WNL Cardiovascular: Yes: Regular Rate and Rhythm, S1, S2 Respiratory: Yes: Diminished Gastrointestinal: Yes: Normal Bowel Sounds, Soft Extremities: Yes: WNL Edema: No Labs: CBC, BMP 09/26/17 06:25 09/26/17 06:25 INR, PTT INR 1.07 (0.82-1.09) 09/24/17 05:10 Assessment/Plan Problem List - Problems (1) Pneumonia Code(s): J18.9 - PNEUMONIA, UNSPECIFIED ORGANISM (2) Sepsis Code(s): A41.9 - SEPSIS, UNSPECIFIED ORGANISM Qualifiers: Sepsis type: sepsis due to unspecified organism Qualified Code(s): A41.9 - Sepsis, unspecified organism (3) CVA (cerebral vascular accident) Code(s): I63.9 - CEREBRAL INFARCTION, UNSPECIFIED Qualifiers: CVA mechanism: unspecified Qualified Code(s): I63.9 - Cerebral infarction, unspecified (4) Failure to thrive in adult Code(s): R62.7 - ADULT FAILURE TO THRIVE Assessment/Plan Pneumonia AMS Hypernatremia improved Electrolyte imbalance IVF Strict I&O Broad ABX per ID O2 as needed Aspiration precautions Replete hiral BOWMAN
--- NOTE | 2017-09-26 12:15 | PN ---
Progress Note, Physician History of Present Illness: pt seen/ examined. comfortable chart reviewed. all f/u noted denies pain. - Current Medication List Current Medications: Active Medications Acetaminophen (Tylenol Oral Solution -) 325 mg GT Q4HPO [facility] Last Admin: 09/26/17 09:00 Dose: 325 mg Amino Acids (Prosource No Carb Liquid Pkt) 30 ml GT BIDWM [facility] Last Admin: 09/26/17 09:01 Dose: 30 ml Aspirin (Asa -) 81 mg GT DAILY [facility] Last Admin: 09/26/17 09:01 Dose: 81 mg Atorvastatin Calcium (Lipitor -) 10 mg GT HS [facility] Last Admin: 09/25/17 21:50 Dose: 10 mg Heparin Sodium (Porcine) (Heparin -) 5,000 unit SQ TID [facility] Last Admin: 09/26/17 06:07 Dose: 5,000 unit Piperacillin Sod/Tazobactam (Sod 3.375 gm/ Dextrose) 50 mls @ 100 mls/hr IVPB Q8H-IV [facility] PRN Reason: Protocol Last Admin: 09/26/17 08:59 Dose: 100 mls/hr Potassium Chloride 10 meq/ (Sodium Chloride) 1,005 mls @ 80 mls/hr IV Q12H [facility] Last Admin: 09/26/17 01:34 Dose: 80 mls/hr Potassium Chloride (Potassium Chloride 10 Meq Premix Ivpb -) 10 meq in 100 mls @ 100 mls/hr IVPB Q60M [facility] Stop: 09/26/17 14:14 Lacosamide (Vimpat Liquid -) 100 mg GT DAILY [facility] Last Admin: 09/26/17 09:00 Dose: 100 mg Levetiracetam (Keppra Oral Solution -) 500 mg GT BID [facility] Last Admin: 09/26/17 09:02 Dose: 500 mg Metoprolol Tartrate (Lopressor -) 25 mg GT BID [facility] Last Admin: 09/26/17 09:02 Dose: Not Given Senna (Senna Oral Solution -) 8.8 mg PO HS [facility] Last Admin: 09/25/17 21:50 Dose: 8.8 mg Valproate Sodium (Depakene -) 250 mg GT BID [facility] Last Admin: 09/26/17 09:02 Dose: 250 mg - Objective Vital Signs: Vital Signs Temperature 98.8 F 09/26/17 09:00 Pulse Rate 69 02/26/18 09:00 Respiratory Rate 20 09/26/17 09:00 Blood Pressure 113/70 09/26/17 09:00 O2 Sat by Pulse Oximetry (%) 98 09/26/17 09:00 Constitutional: Yes: No Distress, Calm Eyes: Yes: Conjunctiva Clear Neck: Yes: Supple Cardiovascular: Yes: Regular Rate and Rhythm Respiratory: Yes: Diminished Gastrointestinal: Yes: Soft, Other (g tube) Edema: No Neurological: Yes: Alert Labs: CBC, BMP 09/26/17 06:25 09/26/17 06:25 INR, PTT INR 1.07 (0.82-1.09) 09/24/17 05:10 Problem List - Problems (1) Sepsis Code(s): A41.9 - SEPSIS, UNSPECIFIED ORGANISM Qualifiers: Sepsis type: sepsis due to unspecified organism Qualified Code(s): A41.9 - Sepsis, unspecified organism (2) Lactic acidosis Code(s): E87.2 - ACIDOSIS Assessment/Plan Clinically better Continue present care Abx Anticipate d/c in am if stable.
[2017-09-26] MEDS: POTASSIUM CHLORIDE 10 MEQ in SODIUM CHLORIDE 100 ML IVPB SCH ×2 (14:43→16:25)
[2017-09-26] MEDS: ATORVASTATIN CA 10 MG TABLET (FP) GT SCH (22:18)
[2017-09-26] MEDS: SENNOSIDES 8.8 MG/5 ML BULK BOTTLE PO SCH (22:19)
[2017-09-27] MEDS: PIPERACILLIN/TAZOB 3.375 GM 3.375 GM in DEXTROSE 5%-WATER - 50 ML IVPB SCH ×2 (01:48→10:23)
[2017-09-27] MEDS: ACETAMINOPHEN 650 MG/20.3 ML ORAL SOLUTION (CUPS) GT SCH ×4 (01:48→13:22)
[2017-09-27] MEDS ORDERED: PT OWN MED DRAWER 7, Y5N ONE ×3 (01:57→09:49)
[2017-09-27] MEDS: HEPARIN NA (PORCINE) 5,000 UNITS/ML 1ML VIAL SQ SCH ×2 (05:11→13:24)
[2017-09-27] MEDS: SODIUM CHLORIDE 0.45% 1,000 ML with POTASSIUM CHLORIDE 10 MEQ IV SCH (06:14)
[2017-09-27 07:09] LABS: BASO % 0.2 % (0-2.0); EOS % 1.1 % (0-4.5); HEMATOCRIT 28.8 % (32.4-45.2); HEMOGLOBIN 9.6 GM/dL (10.7-15.3); LYMPH % 15.3 % (8-40); MCH 29.3 pg (25.7-33.7); MCHC 33.3 g/dl (32.0-36.0); MEAN CELL VOLUME 87.9 fl (80-96); MEAN PLT VOLUME 10.2 fl (7.5-11.1); MONO % 5.6 % (3.8-10.2); NEUT % 77.8 % (42.8-82.8); PLATELET COUNT 217 K/MM3 (134-434); RBC 3.27 M/mm3 (3.60-5.2); RDW 15.5 % (11.6-15.6); WHITE BLOOD COUNT 10.1 K/mm3 (4.0-10.0)
[2017-09-27 07:30] LABS: CHLORIDE 107 mmol/L (98-107); POTASSIUM 3.6 mmol/L (3.5-5.1); SGOT/AST 16 U/L (15-37); SODIUM 144 mmol/L (136-145)
[2017-09-27 07:36] LABS: ALBUMIN 2.2 g/dl (3.4-5.0); ALK PHOS 73 U/L (45-117); ANION GAP 12 (8-16); BILIRUBIN,TOTAL 0.4 mg/dL (0.2-1.0); BLOOD UREA NITROGEN 7 mg/dL (7-18); CALCIUM 8.8 mg/dL (8.5-10.1); CO2 25 mmol/L (21-32); CREATININE 0.5 mg/dL (0.55-1.02); GLUCOSE,RANDOM 106 mg/dL (74-106); MAGNESIUM 1.7 mg/dL (1.8-2.4); SGPT/ALT 12 U/L (12-78); TOT PROT 6.3 g/dl (6.4-8.2)
[2017-09-27 09:37] VITALS: BP 100/60; PULSE 88; TEMP 99
[2017-09-27] MEDS: AMINO ACIDS/PROTEIN HYDROLYS 30 ML LIQUID.PKT GT SCH (10:13)
[2017-09-27] MEDS: VALPROATE SODIUM 250 MG/5 ML UNIT DOSE CUP GT SCH (10:13)
[2017-09-27] MEDS: METOPROLOL TARTRATE 25 MG TABLET (FP) GT SCH (10:13)
[2017-09-27] MEDS: ASPIRIN 81 MG CHEWABLE TABLETS GT SCH (10:13)
[2017-09-27] MEDS: levETIRAcetam 500 MG/5 ML ORAL SOLUTION (UNIT-DOSE CUPS) GT SCH (10:13)
[2017-09-27] MEDS: Lacosamide 50 MG/5 ML ORAL SOLUTION UNIT CUPS GT SCH (10:14)
--- NOTE | 2017-09-27 11:08 | DS ---
Physical Examination Vital Signs: Vital Signs Temperature 99 F 09/27/17 09:33 Pulse Rate 88 09/27/17 09:33 Respiratory Rate 18 09/27/17 09:33 Blood Pressure 100/60 09/27/17 09:33 O2 Sat by Pulse Oximetry (%) 96 09/26/17 19:29 Constitutional: Yes: No Distress, Calm Cardiovascular: Yes: Regular Rate and Rhythm Respiratory: Yes: Diminished Gastrointestinal: Yes: Normal Bowel Sounds, Soft, Other (gt+). No: Tenderness Edema: No Labs: CBC, BMP 09/27/17 06:25 09/27/17 06:25 Discharge Summary Reason For Visit: SEPSIS Current Active Problems Pneumonia (Acute) Sepsis (Acute) UTI (urinary tract infection) (Acute) Hospital Course: ER history - History of Present Illness History of Present Illness: This is a 66 YOF with h/o CVA (residual right sided weakness), dysphagia, gastrostomy (current PEG tube), epilepsy, UTI, anemia, folate and thiamine deficiency, HLD, HTN, and depression who was BIBA to ED from [facility] for fever (103), tachypnea, and altered mental status. Per [facility] VS were BP 100/72, HR 123, RR 24, T 103.7. ED course: WBC elevation to 15k's, lactate 4.1, BCx drawn. Hypernatremic to 157, BUN 41, Cr 1.4. CXR showing LLL consolidation, no vascular congestion. UTI with leukocyte esterase and WBCs. Given vanc/zosyn and 4 liters NS. Hospitalization- Seen by ID and Pulmonary Admitted for sepsis, septic shock due to pneumonia, dehydration, hypernatremia and hypokalemia Was on iv antibiotics blood cultures negative electrolytes corrected pt better BP stable She is at her baseline mental status stable for dc to NH on Augmentin x 2 days Condition: Stable - Instructions Disposition: HALFWAY FACILITY - Home Medications Comprehensive Discharge Medication List: Ambulatory Orders Amino Acids/Protein Hydrolys [Prosource No Carb Liquid Pkt] 30 ml PO BID@0800, 1730 #60 packet 05/27/17 Aspirin [ASA -] 81 mg PO DAILY 30 Days tab.chew 05/27/17 Lacosamide Liquid [Vimpat Liquid -] 100 mg PEG BID #60 bottle MDD 200 05/27/17 Metoprolol Tartrate [Lopressor -] 12.5 mg PEG BID tablet 05/27/17 Rosuvastatin [Crestor -] 40 mg PO HS 30 Days tablet 05/27/17 Sennosides [Senna -] 1 tab PO HS #30 tablet 05/27/17 Valproate Sodium [Depakene -] 1,250 mg PEG BID #60 bottle 05/27/17 clonazePAM [Klonopin -] 0.25 mg PO BID #30 tablet MDD 0.5 05/27/17 Acetaminophen 325 mg PO Q4H 09/22/17 Amino Acids/Protein Hydrolys [Prosource No Carb Liquid Pkt] 30 ml PO BID Aspirin 81 mg PO DAILY 09/22/17 Enoxaparin [Lovenox -] 40 mg SQ DAILY 09/22/17 Lacosamide [Vimpat -] 100 mg PO DAILY 09/22/17 Metoprolol Tartrate 25 mg PO BID 09/22/17 Sennosides [Senna] 8.6 mg PO HS 09/22/17 Simvastatin 20 mg PO DAILY 09/22/17 Valproate Na [Depakene] 250 mg GT BID 09/22/17 Vit A/Vitamin D3/E/Aloe V/Zinc [Periguard Ointment] 5 gm TP DAILY 09/22/17 levETIRAcetam [Keppra -] 500 mg PO BID 09/22/17
--- NOTE | 2017-09-27 12:50 | PN ---
Progress Note (short form) - Note Progress Note: Reports feeling overall better. Afebrile. No acute events overnight. Intake & Output 09/24/17 09/25/17 09/26/17 09/27/17 23:59 23:59 23:59 23:59 Intake Total 2049 4440 1030 1590 Output Total 3 Balance 2049 4440 1027 1590 Last Vital Signs Temp Pulse Resp BP Pulse Ox 99 F 88 18 100/60 96 09/27/17 09:33 09/27/17 09:33 09/27/17 09:33 09/27/17 09:33 09/27/17 09:00 Active Medications Acetaminophen (Tylenol Oral Solution -) 325 mg GT Q4HPO [facility] Last Admin: 09/27/17 10:12 Dose: 325 mg Amino Acids (Prosource No Carb Liquid Pkt) 30 ml GT BIDWM [facility] Last Admin: 09/27/17 10:13 Dose: 30 ml Aspirin (Asa -) 81 mg GT DAILY [facility] Last Admin: 09/27/17 10:13 Dose: 81 mg Atorvastatin Calcium (Lipitor -) 10 mg GT HS [facility] Last Admin: 09/26/17 22:18 Dose: 10 mg Heparin Sodium (Porcine) (Heparin -) 5,000 unit SQ TID [facility] Last Admin: 09/27/17 05:11 Dose: 5,000 unit Piperacillin Sod/Tazobactam (Sod 3.375 gm/ Dextrose) 50 mls @ 100 mls/hr IVPB Q8H-IV CLEMENTE PRN Reason: Protocol Last Admin: 09/27/17 01:48 Dose: 100 mls/hr Potassium Chloride 10 meq/ (Sodium Chloride) 1,005 mls @ 80 mls/hr IV Q12H [facility] Last Admin: 09/27/17 06:14 Dose: 80 mls/hr Lacosamide (Vimpat Liquid -) 100 mg GT DAILY [facility] Last Admin: 09/27/17 10:14 Dose: 100 mg Levetiracetam (Keppra Oral Solution -) 500 mg GT BID [facility] Last Admin: 09/27/17 10:13 Dose: 500 mg Metoprolol Tartrate (Lopressor -) 25 mg GT BID [facility] Last Admin: 09/27/17 10:13 Dose: 25 mg Senna (Senna Oral Solution -) 8.8 mg PO HS [facility] Last Admin: 09/26/17 22:19 Dose: Not Given Valproate Sodium (Depakene -) 250 mg GT BID [facility] Last Admin: 09/27/17 10:13 Dose: 250 mg Constitutional: Yes: NAD Eyes: Yes: Conjunctiva Clear, EOM Intact HENT: Yes: Atraumatic, Normocephalic Neck: Yes: Supple, Trachea Midline Cardiovascular: Yes: Regular Rate and Rhythm, (+) ESM Respiratory: Yes: few scattered rhonchi, On Nasal O2 Gastrointestinal: Yes: Normal Bowel Sounds, Soft. (+) mild tenderness Renal/: Yes: Bingham Present, Other (cloudy urine in bingham bag) Extremities: No: Calf Tenderness, Cold, Cyanosis, Erythema Edema: No Integumentary: Yes: Other (skin dry, tenting) Neurological: Yes: Non-focal Labs: Laboratory Results - last 24 hr 09/27/17 09/27/17 06:25 06:25 WBC 10.1 H RBC 3.27 L Hgb 9.6 L Hct 28.8 L MCV 87.9 MCH 29.3 MCHC 33.3 RDW 15.5 Plt Count 217 MPV 10.2 Neutrophils % 77.8 Lymphocytes % 15.3 Monocytes % 5.6 Eosinophils % 1.1 Basophils % 0.2 Sodium 144 Potassium 3.6 Chloride 107 Carbon Dioxide 25 Anion Gap 12 BUN 7 Creatinine 0.5 L Creat Clearance w eGFR > 60 Random Glucose 106 Calcium 8.8 Magnesium 1.7 L Total Bilirubin 0.4 AST 16 ALT 12 Alkaline Phosphatase 73 Total Protein 6.3 L Albumin 2.2 L Assessment/Plan Sepsis due to suspected LLL PNA / UTI AMS Hypernatremia Electrolyte imbalance Augmentin O2 as needed Current meds D/C planning to SNF Dr Early
== END 2017-09-27 13:39 | DRG 720 ==
LOC: JER 02:05 → JERBED 05:08 → MERGE 05:08 → UNDOADMIN 05:48 → JERBED 05:48 → JICU 07:49 → J4W 09-23 17:57
PROVIDERS: ADMIT Internal Medicine; ATTEND Internal Medicine
PROC: 3E0G76Z Introduction of Nutritional Substance into Upper GI, Via Natural or Artificial Opening (ICD-10-PCS; principal; 2017-09-22)
DX: A41.9 Sepsis, unspecified organism (principal); R65.21 Severe sepsis with septic shock; E87.0 Hyperosmolality and hypernatremia; E51.9 Thiamine deficiency, unspecified; I69.351 Hemiplegia and hemiparesis following cerebral infarction affecting right dominant side; Z93.1 Gastrostomy status; E53.8 Deficiency of other specified B group vitamins; E87.8 Other disorders of electrolyte and fluid balance, not elsewhere classified; R62.7 Adult failure to thrive; E87.2 Acidosis; G40.909 Epilepsy, unspecified, not intractable, without status epilepticus; N39.0 Urinary tract infection, site not specified; E87.6 Hypokalemia; D64.9 Anemia, unspecified; F32.9 Major depressive disorder, single episode, unspecified; E78.5 Hyperlipidemia, unspecified; E86.0 Dehydration; R41.82 Altered mental status, unspecified; R50.9 Fever, unspecified; R00.0 Tachycardia, unspecified; R09.02 Hypoxemia; D72.829 Elevated white blood cell count, unspecified; E87.5 Hyperkalemia; I10 Essential (primary) hypertension; J98.11 Atelectasis; J69.0 Pneumonitis due to inhalation of food and vomit
CPT/HCPCS: 36415; 71045-TC-FY; 74176-TC; 80048; 80053; 81003; 81015; 82550; 82803; 83605; 83735; 84100; 84484; 85025; 85027; 85610; 85730; 86140; 86850; 86900; 86901; 87040; 87086; 90732; 93005; 93010; 99284-25; G0009; G0480; J1644

== ENCOUNTER 2017-12-11 21:28 | Inpatient (IN) | payer OTHER ==
--- NOTE | 2017-12-11 22:01 | PDOC ---
History of Present Illness - General Stated Complaint: POSSIBLE SEPSIS Time Seen by Provider: 12/11/17 21:50 - History of Present Illness Initial Comments: Patient is a 67 year old female, with a significant past medical history of CVA with residual R sided weakness, dementia, PEG tube, HLD, epilepsy, who presents to the emergency department from [facility] due to hypotension/hypoxia this AM in the setting of diarrhea and + c. diff toxin Ag. Pt noted to have diarrhea 4- 5 days ago by [facility] staff; labs at [place] notable for Na 152. Pt started on IVFs at the time. C diff toxin and ag sent, subsequently + for c diff toxin. Pt started on flagyl and continued on IVFs. Pt febrile overnight and noted to be hypotensive to 70s/40s today, with hypoxia to mid 80s. Pt sent to ED with presumed sepsis secondary to likely intra-abdominal process. Allergies: NKA Past surgical history: Unknown Social History: Unknown PMD: Dr. Akbar 12/11/17 22:13 Past History - Past Medical History Allergies/Adverse Reactions: Allergies Allergy/AdvReac Type Severity Reaction Status Date / Time No Known Allergies Allergy Verified 12/11/17 22:11 Home Medications: Ambulatory Orders Acetaminophen 650 mg GT PRN PRN 12/11/17 Atorvastatin Ca [Lipitor] 40 mg GT HS 12/11/17 Bisacodyl Suppository [Dulcolax Suppository -] 10 mg RC DAILY PRN 12/11/17 Enoxaparin [Lovenox -] 40 mg SQ DAILY 12/11/17 Lacosamide Liquid [Vimpat] 10 mg GT BID 12/11/17 Valproate Sodium Liquid [Depakene] 1,250 mg GT BID 12/11/17 Vit A/Vitamin D3/E/Aloe V/Zinc [Periguard Ointment] 15 gm TP TID 12/11/17 Zinc Oxide 20% Topical Oint 454 gm NR TID 12/11/17 levETIRAcetam [Keppra Oral Solution -] 500 mg GT BID 12/11/17 metroNIDAZOLE [Flagyl -] 500 mg GT TID 12/11/17 Review of Systems - Review of Systems Comments:: Unable to perform as pt is nonverbal 12/11/17 23:24 *Physical Exam - Physical Exam Comments: GENERAL: Elderly woman, awake, nonverbal in mild distress, vocalizing HEAD: No signs of trauma, normocephalic, atraumatic EYES: PERRLA, EOMI, sclera anicteric, conjunctiva clear ENT: Poor dention. Auricles normal inspection, hearing grossly normal, nares patent, oropharynx clear without exudates. Moist mucosa NECK: Normal ROM, supple, no lymphadenopathy, JVD, or masses LUNGS: Decreased air entry at bases. No wheezes, rhonchi or crackles HEART: +Tachycardic, normal S1 and S2, no murmurs, rubs or gallops, peripheral pulses normal and equal bilaterally. ABDOMEN: +Distended abdomen, discomfort on palpation in all four quadrants. Hyperactive bowel sounds. No guarding, no rebound. No masses EXTREMITIES : Normal inspection, Normal range of motion, no edema. No clubbing or cyanosis. NEUROLOGICAL: Unable to respond to simple questions. Nonverbal. Cranial nerves II through XII grossly intact. No facial asymmetry. Minimal movement of R extremity. 12/11/17 22:14 ED Treatment Course - LABORATORY CBC & Chemistry Diagram: 12/12/17 03:45 12/12/17 04:57 Medical Decision Making - Medical Decision Making 67 year old female, with a significant past medical history of CVA with residual R sided weakness, dementia, PEG tube, HLD, epilepsy, who presents to the emergency department from [facility] due to hypotension/hypoxia this AM in the setting of diarrhea and + c. diff toxin Ag. Pt hypotensive to 70s/40s on presentation. Bolused 2L IVFs with good response with MAP in low 70s. Ddx includes likely sepsis secondary to CAP vs. UTI vs. C diff colitis/ gastroenteritis, however also includes cardiogenic shock secondary to VT, adrenal insufficiency, PE, metabolic derangement. Plan: - CBC, CMP, lactate, - EKG, CXR - Cardiac, O2 monitoring - UA, urine, blood cultures - empiric abx 12/11/17 23:[address] Baker. Sign-out given. Will likely need central line and admission to ICU. 12/12/17 00:13 *DC/Admit/Observation/Transfer Diagnosis at time of Disposition: Clostridium difficile diarrhea, Bladder mass, Severe sepsis, Prolonged QT interval, Hypernatremia Anemia Qualifiers: Anemia type: unspecified type Qualified Code(s): D64.9 - Anemia, unspecified UTI (urinary tract infection) Qualifiers: Urinary tract infection type: site unspecified Hematuria presence: without hematuria Qualified Code(s): N39.0 - Urinary tract infection, site not specified - Discharge Dispostion Condition at time of disposition: Guarded - Referrals - Patient Instructions - Post Discharge Activity
[2017-12-11] MEDS ORDERED: LACTATED RINGERS SOLUTION 1,000 ML/1,000 ML INFUS.BAG IV STA ×2 (22:06→22:44)
[2017-12-11] MEDS ORDERED: SODIUM CHLORIDE 1,000 ML IV STA (22:09)
--- NOTE | 2017-12-11 22:18 | PDOC ---
Attending Attestation - Resident Resident Name: Boni Birminghamua - ED Attending Attestation I have performed the following: I have examined & evaluated the patient, The case was reviewed & discussed with the resident, I agree w/resident's findings & plan, Exceptions are as noted - HPI HPI: 12/11/17 22:18 67 yo female BIBA from [facility] because of fever <Mayi Monroy - Last Filed: 12/11/17 22:18> - Physicial Exam PE: 12/12/17 00:44 GENERAL: Frail appearing. Febrile. Awake. No apparent distress. HEENT: Normocephalic, atraumatic. NECK: No JVD. Carotid pulses 2+ and symmetric, without bruits. No thyromegaly. No lymphadenopathy. CARDIOVASCULAR: Tachycardic. Regular rate and rhythm. No murmurs, rubs, or gallops. Distal pulses are 2+ and symmetric. PULMONARY: Rhonchi. No evidence of respiratory distress. ABDOMINAL: Soft. Non-tender. Mildly distended. No rebound or guarding. No organomegaly. Normoactive bowel sounds. MUSCULOSKELETAL Normal range of motion at all joints. No bony deformities or tenderness. No CVA tenderness. EXTREMITIES: No voluntary movement of legs. No cyanosis. No clubbing. No edema. No calf tenderness. SKIN: Warm and dry. Normal capillary refill. No rashes. No jaundice. NEUROLOGICAL: Significant stroke in the past. Nonverbal at baseline. Unable to participate in her exam. - Medical Decision Making 12/12/17 01:05 Spoke to patient's son. Patient is full code - please keep in him informed of any updates. <Diane Cottrell - Last Filed: 12/12/17 01:05>
[2017-12-11 22:33] LABS: HEMATOCRIT 27.1 % (32.4-45.2); HEMOGLOBIN 8.8 GM/dL (10.7-15.3); MCH 28.6 pg (25.7-33.7); MCHC 32.4 g/dl (32.0-36.0); MEAN CELL VOLUME 88.3 fl (80-96); MEAN PLT VOLUME 9.3 fl (7.5-11.1); PLATELET COUNT 248 K/MM3 (134-434); RBC 3.07 M/mm3 (3.60-5.2); RDW 17.3 % (11.6-15.6)
[2017-12-11 22:46] LABS: WHITE BLOOD COUNT 35.3 K/mm3 (4.0-10.0)
[2017-12-11 22:53] LABS: INR 1.37 (0.82-1.09); PROTHROMBIN TIME (PATIENT) 15.5 SEC (9.7-13.0)
[2017-12-11 22:55] LABS: ACTIVATED PTT 23.2 SECONDS (26.9-34.4)
[2017-12-11 23:03] LABS: ALBUMIN 1.4 g/dl (3.4-5.0); ALK PHOS 73 U/L (45-117); ANION GAP 16 (8-16); BILIRUBIN,TOTAL 0.2 mg/dL (0.2-1.0); BLOOD UREA NITROGEN 40 mg/dL (7-18); CALCIUM 7.5 mg/dL (8.5-10.1); CHLORIDE 116 mmol/L (98-107); CO2 21 mmol/L (21-32); CREATININE 2.8 mg/dL (0.55-1.02); GLUCOSE,RANDOM 218 mg/dL (74-106); SGPT/ALT 6 U/L (12-78); SODIUM 153 mmol/L (136-145); TOT PROT 5.5 g/dl (6.4-8.2)
[2017-12-11 23:07] LABS: POTASSIUM 3.9 mmol/L (3.5-5.1); SGOT/AST 23 U/L (15-37)
[2017-12-11] MEDS ORDERED: ACETAMINOPHEN 1000 MG/100 ML VIAL (NON FORMULARY) IVPB ONE (23:22)
[2017-12-11 23:23] LABS: ARTERIAL BLD GAS O2 SATURATION 94.9 % (90-98.9); ARTERIAL BLOOD GAS PCO2 25.9 mmHg (35-45); ARTERIAL BLOOD GAS PO2 76.3 mmHg (80-100); ARTERIAL BLOOD GAS pH 7.45 (7.35-7.45); CARBOXYHEMOGLOBIN 1.6 gm% (0.5-2.0)
[2017-12-11 23:24] LABS: ALLENS TEST POSITIVE
[2017-12-11 23:39] LABS: ANISOCYTOSIS 1+; MACROCYTOSIS 1+; PLATELET ESTIMATE ADEQUATE
[2017-12-11 23:57] LABS: URINE APPEARANCE CLOUDY; URINE BILIRUBIN NEGATIVE (<2.0 mg/dL); URINE COLOR AMBER; URINE GLUCOSE (UA) NEGATIVE (NEGATIVE); URINE KETONE NEGATIVE (NEGATIVE); URINE NITRITE NEGATIVE (NEGATIVE)
[2017-12-11 23:59] LABS: URINE LEUK ESTERASE 2+ (NEGATIVE); URINE PROTEIN 1+ (NEGATIVE)
[2017-12-12] LABS: EPI CELLS RARE /HPF (FEW); URINE HYALINE CAST 11 /lpf; URINE MUCUS RARE
[2017-12-12] MEDS ORDERED: LACTATED RINGERS SOLUTION 1,000 ML/1,000 ML INFUS.BAG IV STA (00:04)
[2017-12-12] MEDS ORDERED: VANCOMYCIN 1,000 MG in DEXTROSE 5%-WATER - 250 ML IVPB ONE (00:08)
[2017-12-12] MEDS ORDERED: PIPERACILLIN/TAZOB 3.375 GM 3.375 GM in DEXTROSE 5%-WATER - 50 ML IVPB ONE (00:10)
[2017-12-12] MEDS ORDERED: ACETAMINOPHEN INJECTION 100 ML IVPB ONE ×2 (00:11→04:40)
[2017-12-12] MEDS ORDERED: PIPERACILLIN/TAZOB 3.375 GM 3.375 GM/50 ML BAG IVPB ONE (00:19)
--- NOTE | 2017-12-12 01:03 | PDOC ---
*Physical Exam - Vital Signs Last Vital Signs Temp Pulse Resp BP Pulse Ox 101.3 F H 119 H 71/44 97 12/11/17 21:28 12/11/17 21:28 12/11/17 21:28 12/11/17 21:28 12/11/17 23:59 Care endorsed to me by Dr. Birmingham at the end of his shift. 67 YOF with h/o CVA with residual right sided deficit, PEG use, severe dementia, and recently diagnosed C. diff diarrhea (was getting tx with Flagyl), came from [facility] for intermittent diarrhea. Had Na of 152 and Intermittent diarrhea, and this morning was hypotensive to 70s/40s and hypoxic to mid-80s. Pressures have responded well to IVF, now back down to mid-70s over mid-40s (MAP of 55) even after 3 liters IVF. Most likely will need CVC, pressors, ICU admission for septic shock. Pending repeat lactate. ED Treatment Course - LABORATORY CBC & Chemistry Diagram: 12/12/17 03:45 12/12/17 04:57 - ADDITIONAL ORDERS Additional order review: Laboratory Results 12/11/17 12/11/17 12/11/17 23:15 22:30 22:30 PT with INR INR PTT (Actin FS) Anticoagulation Therapy No Result Required. Puncture Site Right radial ABG pH 7.45 ABG pCO2 at Pt Temp 25.9 L ABG pO2 at Pt Temp 76.3 L ABG HCO3 17.6 L ABG O2 Sat (Measured) 94.9 ABG O2 Content 12.9 L ABG Base Excess -5.0 L Amando Test Positive Carboxyhemoglobin 1.6 Methemoglobin 1.5 O2 Delivery Device Nasal Oxygen Flow Rate 4l Vent Mode No Result Required. Vent Rate No Result Required. Mechanical Rate No Result Required. Pressure Support Vent No Result Required. Sodium 153 H Potassium 3.9 Chloride 116 H Carbon Dioxide 21 Anion Gap 16 BUN 40 H Creatinine 2.8 H Creat Clearance w eGFR 16.96 Random Glucose 218 H Lactic Acid 10.9 H* Calcium 7.5 L Total Bilirubin 0.2 AST 23 ALT 6 L Alkaline Phosphatase 73 Total Protein 5.5 L Albumin 1.4 L 12/11/17 22:30 PT with INR 15.50 H INR 1.37 H PTT (Actin FS) 23.2 L Anticoagulation Therapy Puncture Site ABG pH ABG pCO2 at Pt Temp ABG pO2 at Pt Temp ABG HCO3 ABG O2 Sat (Measured) ABG O2 Content ABG Base Excess Amando Test Carboxyhemoglobin Methemoglobin O2 Delivery Device Oxygen Flow Rate Vent Mode Vent Rate Mechanical Rate Pressure Support Vent Sodium Potassium Chloride Carbon Dioxide Anion Gap BUN Creatinine Creat Clearance w eGFR Random Glucose Lactic Acid Calcium Total Bilirubin AST ALT Alkaline Phosphatase Total Protein Albumin 12/11/17 22:30 RBC 3.07 L MCV 88.3 MCHC 32.4 RDW 17.3 H MPV 9.3 Neutrophils % No Result Required. Lymphocytes % No Result Required. - Medications Given in the ED: ED Medications Discontinued Medications Generic Name Dose Route Start Last Admin Trade Name Freq PRN Reason Stop Dose Admin Sodium Chloride 1,000 mls @ 1,000 mls/hr 12/11/17 22:09 12/11/17 22:09 Normal Saline - IV 12/11/17 23:08 1,000 mls/hr ASDIR STA Administration Lactated Ringer's 1,000 ml in 1,000 mls @ 1,000 mls/hr 12/11/17 22:44 22:53 Lactated Ringers Solution IV 12/11/17 23:43 1,000 mls/hr ONCE STA Administration Medical Decision Making - Critical Care Time Total Critical Care Time (minutes): 90 Critical Care Statement: The care of this patient involved high complexity decision making to prevent further life threatening deterioration of the patient 's condition and/or to evaluate & treat vital organ system(s) failure or risk of failure. - Medical Decision Making 12/12/17 03:10 Patient's BP increased to 114 systolic for one reading after 3 liters IVF resuscitation. However after returning from CT her pressures again dropped to mid-80s, then up to 94/66 when 4th liter IVF started. Patient without JVD, pitting edema, or crackles prior to starting 4th liter IVF. If patient's MAP drops below 65 will start norepi drip at 2 mcg/min. 12/12/17 03:43 At this time the patient's blood pressure remains at 94/61. She is septic but not currently meeting severe sepsis criteria. Notably she has required 4 liters IVF resuscitation. Her initial Hgb here in the ED was 8.8. Repeating CBCD now to re-check H/H. Microblog sent to [facility] for admission. CVC is deep and is pulled back 3 cm. 12/12/17 04:11 Spoke with UTILITY ACCOUNTS DIRECTOR Mayi Barrera; in agreement patient to be admitted to ICU. Decision to Admit order placed to [facility] covering attending Dr. Miller. Spoke with ICU; they will accept the patient for ICU placement. Patient has received half of her 4th liter IVF. BP is 84/68 and norepi drip started at 2 mcg/min. Repeating EKG given prolonged QTc of 568. Ordered another dose of Ofirmev as patient's repeat rectal temp was 102.3. 12/12/17 04:40 Ordered 500 mg Keppra IVPB as patient takes Keppra daily, seems to be shaking more over the past 30 min. *DC/Admit/Observation/Transfer Diagnosis at time of Disposition: Clostridium difficile diarrhea, Bladder mass, Severe sepsis, Prolonged QT interval, Hypernatremia Anemia Qualifiers: Anemia type: unspecified type Qualified Code(s): D64.9 - Anemia, unspecified UTI (urinary tract infection) Qualifiers: Urinary tract infection type: site unspecified Hematuria presence: without hematuria Qualified Code(s): N39.0 - Urinary tract infection, site not specified - Discharge Dispostion Condition at time of disposition: Guarded Decision to Admit order: Yes - Referrals - Patient Instructions - Post Discharge Activity Procedures - Central Line Central Line Lumen: triple Central Line Position: internal jugular (R) Anesthesia: 1% Lidocaine Amount of anesthesia (ccs): 4 Complications: none Post Central Line Insertion: sutured, good blood return, position confirmed w/ CXR Progress: US guided. First attempt after cannulation wire would not thread, wire and needle removed, second attempt dark non-pulsatile blood, wire threaded well, wire placement confirmed with US. Patient tolerated procedure well.
[2017-12-12 03:58] LABS: HEMATOCRIT 27.7 % (32.4-45.2); HEMOGLOBIN 9.3 GM/dL (10.7-15.3); MCHC 33.6 g/dl (32.0-36.0); MEAN CELL VOLUME 86.4 fl (80-96); MEAN PLT VOLUME 9.1 fl (7.5-11.1); PLATELET COUNT 277 K/MM3 (134-434); RDW 17.4 % (11.6-15.6)
[2017-12-12 04:03] LABS: WHITE BLOOD COUNT 40.4 K/mm3 (4.0-10.0)
[2017-12-12] MEDS: NOREPINEPHRINE BITARTRATE 4,000 MCG in DEXTROSE 5%-WATER - 496 ML IV SCH ×3 (04:21→14:05)
[2017-12-12] MEDS ORDERED: ACETAMINOPHEN 1000 MG/100 ML VIAL (NON FORMULARY) IVPB ONE ×2 (04:24→16:00)
[2017-12-12] MEDS ORDERED: levETIRAcetam 500 MG/5 ML INJECTION VIAL IVPB ONE ×2 (04:38→04:59)
--- NOTE | 2017-12-12 05:19 | HP ---
CHIEF COMPLAINT: Fever PCP: Dr. Lyndon Akbar HISTORY OF PRESENT ILLNESS: This is a 67 y/o woman from [facility] with a PMH: HTN, HLD, Seizure Disorder, Epilepsy, UTIs, Sepsis, Anemia, TIa, CVA (no residual deficits), MDD, Dyspahgia , Sacral Ulcer, recently diagnosed C- Diff (12/09/17). Who presents to the ED for Fever, Hypotension. Patient is non-verbal unable to provider HPI. Per ED records, patient was found by the [facility] staff to be febrile and hypotensive and sent in for evaluation. On arrival to the ED patient was in Severe Sepsis- T Max 101.3, P 119, R 30, BP 71/44, Spo2 97% w/ trach collar on vent. During the course in the ED patient's MAP < 60 after 3L fluid resuscitation. Vancomycin, Zosyn was given in ED. Patient continued to have a MAP < 60, requiring ICU admission for MODS secondary to Fulminate C- Diff infection. ER course was notable for: (1) MODS Criteria Met- LA 10.9~7.2, WBC 30>40, BP [id number] (2) Chest Xray- No acute pulmonary disease (3) CTAP- Diffuse Colonic Thickening, Partial SBO, Complex Cystic Mass in Anterior Bladder Wall (4) NICOLÁS- BUN 2.8 (5) Stool Occult- negative Recent Travel: None PAST MEDICAL HISTORY: See HPI PAST SURGICAL HISTORY: Trach G- Tube Social History: Smoking: Unknown Alcohol: Unknown Drugs: Unknown Resides at [facility], non-ambulatory Family History: Unknown Allergies No Known Allergies Allergy (Verified 12/11/17 22:11) HOME MEDICATIONS: Home Medications Medication Instructions Recorded Acetaminophen 650 mg GT PRN PRN 12/11/17 Atorvastatin Ca [Lipitor] 40 mg GT HS 12/11/17 Bisacodyl Suppository [Dulcolax 10 mg RC DAILY PRN 12/11/17 Suppository -] Enoxaparin [Lovenox -] 40 mg SQ DAILY 12/11/17 Lacosamide Liquid [Vimpat] 10 mg GT BID 12/11/17 Valproate Sodium Liquid [Depakene] 1,250 mg GT BID 12/11/17 Vit A/Vitamin D3/E/Aloe V/Zinc 15 gm TP TID 12/11/17 [Periguard Ointment] Zinc Oxide 20% Topical Oint 454 gm NR TID 12/11/17 levETIRAcetam [Keppra Oral 500 mg GT BID 12/11/17 Solution -] metroNIDAZOLE [Flagyl -] 500 mg GT TID 12/11/17 REVIEW OF SYSTEMS Dementia/MDD- Non Verbal- Unable to Obtain CONSTITUTIONAL: Absent: fever, chills, diaphoresis, generalized weakness, malaise, loss of appetite, weight change HEENT: Absent: rhinorrhea, nasal congestion, throat pain, throat swelling, difficulty swallowing, mouth swelling, ear pain, eye pain, visual changes CARDIOVASCULAR: Absent: chest pain, syncope, palpitations, irregular heart rate, lightheadedness , peripheral edema RESPIRATORY: Absent: cough, shortness of breath, dyspnea with exertion, orthopnea, wheezing, stridor, hemoptysis GASTROINTESTINAL: Absent: abdominal pain, abdominal distension, nausea, vomiting, diarrhea, constipation, melena, hematochezia GENITOURINARY: Absent: dysuria, frequency, urgency, hesitancy, hematuria, flank pain, genital pain MUSCULOSKELETAL: Absent: myalgia, arthralgia, joint swelling, back pain, neck pain SKIN: Absent: rash, itching, pallor HEMATOLOGIC/IMMUNOLOGIC: Absent: easy bleeding, easy bruising, lymphadenopathy, frequent infections ENDOCRINE: Absent: unexplained weight gain, unexplained weight loss, heat intolerance, cold intolerance NEUROLOGIC: Absent: headache, focal weakness or paresthesias, dizziness, unsteady gait, seizure, mental status changes, bladder or bowel incontinence PSYCHIATRIC: Absent: anxiety, depression, suicidal or homicidal ideation, hallucinations. PHYSICAL EXAMINATION Vital Signs - 24 hr 12/11/17 12/12/17 12/12/17 21:28 04:21 04:37 Temperature 101.3 F H 102.3 F H Pulse Rate 119 H 129 H Pulse Rate [ 129 H Left Radial] Respiratory 30 H Rate Blood Pressure 71/44 84/68 Blood Pressure 84/68 [Right Arm] O2 Sat by Pulse 97 Oximetry (%) GENERAL: Dementia/MDD at baseline, in acute distress 2/2 MODS HEAD: Normal with no signs of trauma. EYES: Pupils equal, round and reactive to light, sclera anicteric, conjunctiva clear. No lid lag. EARS, NOSE, THROAT: Ears normal, nares patent, oropharynx clear without exudates. Dry mucous membranes. NECK: Normal range of motion, supple without lymphadenopathy, JVD, or masses. LUNGS: Breath sounds equal, clear to auscultation bilaterally. No wheezes, and no crackles. No accessory muscle use. HEART: Tachycardiac rhythm, normal S1 and S2 without murmur, rub or gallop. ABDOMEN: Hypoactive bowel sounds, G-Tube to LMQ, Soft, nontender, not distended , no guarding, no rebound, no masses. No hepatomegaly or splenomegaly. GENITOURINARY: Handy Catheter with dark yellow urine in the tubing and drainage collection container 100ml MUSCULOSKELETAL: Normal range of motion at all joints. No bony deformities or tenderness. No CVA tenderness. UPPER EXTREMITIES: 2+ pulses, warm, well-perfused. No cyanosis. No clubbing. No peripheral edema. LOWER EXTREMITIES: 2+ pulses, warm, well-perfused. No calf tenderness. No peripheral edema. NEUROLOGICAL: Cranial nerves II-XII intact. Non-verbal speech. Non-ambulatory Gait not assessed. PSYCHIATRIC: MDD/Dementia- at baseline. SKIN: poor turgor +Sacral Decubitus Stage III with non circumscribed edges, yellow/white granulation deep crater ulcer noted, Warm, dry, no rashes, normal capillary refill. Laboratory Results - last 24 hr 12/11/17 12/11/17 12/11/17 22:30 22:30 22:30 WBC 35.3 H* RBC 3.07 L Hgb 8.8 L Hct 27.1 L MCV 88.3 MCH 28.6 MCHC 32.4 RDW 17.3 H Plt Count 248 MPV 9.3 Total Counted 100 Neutrophils % No Result Required. Neutrophils % (Manual) 56.0 Band Neutrophils % 19.0 Lymphocytes % No Result Required. Lymphocytes % (Manual) 5.0 L Monocytes % (Manual) 6 Basophils % (Manual) 1.0 Myelocytes % (Man) 9 H Nucleated RBC % 1 H Metamyelocytes 4 H Differential Comment Man diff performed Platelet Estimate Adequate Platelet Comment Giant platelets Polychromasia 1+ Anisocytosis 1+ Macrocytosis 1+ PT with INR 15.50 H INR 1.37 H PTT (Actin FS) 23.2 L Anticoagulation Therapy Puncture Site ABG pH ABG pCO2 at Pt Temp ABG pO2 at Pt Temp ABG HCO3 ABG O2 Sat (Measured) ABG O2 Content ABG Base Excess Amando Test Carboxyhemoglobin Methemoglobin O2 Delivery Device Oxygen Flow Rate Vent Mode Vent Rate Mechanical Rate Pressure Support Vent Sodium 153 H Potassium 3.9 Chloride 116 H Carbon Dioxide 21 Anion Gap 16 BUN 40 H Creatinine 2.8 H Creat Clearance w eGFR 16.96 Random Glucose 218 H Lactic Acid Calcium 7.5 L Total Bilirubin 0.2 AST 23 ALT 6 L Alkaline Phosphatase 73 Total Protein 5.5 L Albumin 1.4 L Urine Color Urine Appearance Urine pH Ur Specific [place] Urine Protein Urine Glucose (UA) Urine Ketones Urine Blood Urine Nitrite Urine Bilirubin Urine Urobilinogen Ur Leukocyte Esterase Urine WBC (Auto) Urine RBC (Auto) Ur Epithelial Cells Hyaline Casts Urine Mucus Stool Occult Blood 12/11/17 12/11/17 12/11/17 22:30 23:15 23:50 WBC RBC Hgb Hct MCV MCH MCHC RDW Plt Count MPV Total Counted Neutrophils % Neutrophils % (Manual) Band Neutrophils % Lymphocytes % Lymphocytes % (Manual) Monocytes % (Manual) Basophils % (Manual) Myelocytes % (Man) Nucleated RBC % Metamyelocytes Differential Comment Platelet Estimate Platelet Comment Polychromasia Anisocytosis Macrocytosis PT with INR INR PTT (Actin FS) Anticoagulation Therapy No Result Required. Puncture Site Right radial ABG pH 7.45 ABG pCO2 at Pt Temp 25.9 L ABG pO2 at Pt Temp 76.3 L ABG HCO3 17.6 L ABG O2 Sat (Measured) 94.9 ABG O2 Content 12.9 L ABG Base Excess -5.0 L Amando Test Positive Carboxyhemoglobin 1.6 Methemoglobin 1.5 O2 Delivery Device Nasal Oxygen Flow Rate 4l Vent Mode No Result Required. Vent Rate No Result Required. Mechanical Rate No Result Required. Pressure Support Vent No Result Required. Sodium Potassium Chloride Carbon Dioxide Anion Gap BUN Creatinine Creat Clearance w eGFR Random Glucose Lactic Acid 10.9 H* Calcium Total Bilirubin AST ALT Alkaline Phosphatase Total Protein Albumin Urine Color Radha Urine Appearance Cloudy Urine pH 5.0 Ur Specific [place] 1.026 Urine Protein 1+ H Urine Glucose (UA) Negative Urine Ketones Negative Urine Blood Negative Urine Nitrite Negative Urine Bilirubin Negative Urine Urobilinogen 2.0 H Ur Leukocyte Esterase 2+ H Urine WBC (Auto) 71 Urine RBC (Auto) 3 Ur Epithelial Cells Rare Hyaline Casts 11 Urine Mucus Rare Stool Occult Blood 12/12/17 12/12/17 03:45 04:30 WBC 40.4 H* RBC 3.20 L Hgb 9.3 L Hct 27.7 L MCV 86.4 MCH 29.0 MCHC 33.6 RDW 17.4 H Plt Count 277 MPV 9.1 Total Counted Neutrophils % No Result Required. Neutrophils % (Manual) Band Neutrophils % Lymphocytes % No Result Required. Lymphocytes % (Manual) Monocytes % (Manual) Basophils % (Manual) Myelocytes % (Man) Nucleated RBC % Metamyelocytes Differential Comment Platelet Estimate Platelet Comment Polychromasia Anisocytosis Macrocytosis PT with INR INR PTT (Actin FS) Anticoagulation Therapy Puncture Site ABG pH ABG pCO2 at Pt Temp ABG pO2 at Pt Temp ABG HCO3 ABG O2 Sat (Measured) ABG O2 Content ABG Base Excess Amando Test Carboxyhemoglobin Methemoglobin O2 Delivery Device Oxygen Flow Rate Vent Mode Vent Rate Mechanical Rate Pressure Support Vent Sodium Potassium Chloride Carbon Dioxide Anion Gap BUN Creatinine Creat Clearance w eGFR Random Glucose Lactic Acid Calcium Total Bilirubin AST ALT Alkaline Phosphatase Total Protein Albumin Urine Color Urine Appearance Urine pH Ur Specific [place] Urine Protein Urine Glucose (UA) Urine Ketones Urine Blood Urine Nitrite Urine Bilirubin Urine Urobilinogen Ur Leukocyte Esterase Urine WBC (Auto) Urine RBC (Auto) Ur Epithelial Cells Hyaline Casts Urine Mucus Stool Occult Blood Negative ASSESSMENT/PLAN: This is a 67 y/o woman with a PMHx recently diagnosed C- Diff, HTN, HLD, Seizure Disorder, TIA/CVA (without residual deficit), MDD, UTIs, Sepsis, Sacral Ulcer. Who presents to the ED in Severe Sepsis secondary C- Diff. Admitted to ICU for MODS Secondary to Fulminant C Diff, Severe Sepsis, Hypernatremia. Plan: 1. Admit to ICU- Multiple Organ Dysfunction Syndrome secondary to Fulminant CDI , Severe Sepsis, Hypernatremia, Continue Cardiac monitoring, Reza Cultured, qSOFA 2, SIRS Criteria Met/ Septic Shock Met/ MODS Criteria Met. Lactic Acid 10.2~ 7.1, post fluid resuscitation, Repeat LA this am, WBC 35~40, BP 70s/40s. Started on Vancomycin, Zosyn in ED, will add Metronidazole, Isolation Precautions, 3L given in ED, started on Levophed in ICU, Appreciate ID Consult, Appreciate Water Main Installer Helper/Pulm Consult, Appreciate Nephrology Consult, EKG- ST, Chest Xray- CM, no active pulmonary disease, Monitor CBC, CMP, Lactic Acid, Maintain MAP > 65, strict INOs 2. C- Diff (collected outpatient 12/09) +C Diff- Restarted on Metronidazole, Vancomycin, CTAP- reviewed, Appreciate Surgical Consult- ?SBO, Monitor CBC, CMP , Monitor vitals, Continue IVF, Isolation Precautions. 3. Hypernatremia- 152, (baseline from outpatient lab 12/05/17) likely secondary to excessive diarrhea, NS and LR boluses given in ED, will monitor CMP closely to avoid overcorrection. 4. Hypertension- Hold home meds secondary to current hypotensive state, related to MODS, IVF boluses given in ED, will need IV pressors, titrate to maintain MAP > 65 5. Chronic Respiratory Failure- Trach w/vent, ABG reviewed, continue vent settings, monitor vitals, 6. NICOLÁS- baseline 0.7 (12/05/17 outpatient) Likely secondary to Dehydration from GI losses, NS fluid boluses given, Monitor BMP, will treat accordingly 7. Sacral Ulcer- Appreciate Wound Care nurse, Dressing changes daily 8. Bladder Mass- CTAP- complex cystic mass in anterior bladder wall, Appreciate Surgical Consult, Consider Urology as needed 9. Seizure Disorder- Continue home meds, Seizure Precautions, Fall Precautions 10. Hyperlipidemia- Continue home med, Monitor LFTs 11. TIA/CVA- stable, continue home meds, Fall Precautions 12. MDD- Continue home meds 13. Functional Quadriplegia- Complete immobility due to frailty, end-stage Dementia, Requires total care, Turn Q2h, Art Lift as needed, Heel protectors, Fall precautions 14. FEN- Replete lytes as indicated, Hold tube feedings for now, until condition improves 15. DVT ppx- SCDs, Heparin SQ 16. Discussed with patient's son via telephone this am, on the grave condition of his mother (BP 44/25, P 120s) and Advance Directives, the son requests that his mother still be a Full Code. Code Status: Full Code, HCP- Florencio Isidro Jr (Son) [phone] Dispo: Requires Inpatient Care Problem List - Problem (1) MODS (multiple organ dysfunction syndrome) Code(s): [id number] - (2) Severe sepsis Code(s): A41.9 - SEPSIS, UNSPECIFIED ORGANISM; R65.20 - SEVERE SEPSIS WITHOUT SEPTIC SHOCK (3) Clostridium difficile diarrhea Code(s): A04.72 - ENTEROCOLITIS D/T CLOSTRIDIUM DIFFICILE, NOT SPCF RECUR (4) Hypernatremia Code(s): E87.0 - HYPEROSMOLALITY AND HYPERNATREMIA (5) Chronic respiratory failure Code(s): J96.10 - CHRONIC RESPIRATORY FAILURE, UNSP W HYPOXIA OR HYPERCAPNIA (6) Seizures Code(s): R56.9 - UNSPECIFIED CONVULSIONS (7) Bladder mass Code(s): N32.89 - OTHER SPECIFIED DISORDERS OF BLADDER (8) MDD (major depressive disorder) Code(s): F32.9 - MAJOR DEPRESSIVE DISORDER, SINGLE EPISODE, UNSPECIFIED (9) Hx TIA/stroke w/o resid Code(s): Z86.73 - PRSNL HX OF TIA (TIA), AND CEREB INFRC W/O RESID DEFICITS (10) HTN (hypertension) Code(s): I10 - ESSENTIAL (PRIMARY) HYPERTENSION (11) HLD (hyperlipidemia) Code(s): E78.5 - HYPERLIPIDEMIA, UNSPECIFIED (12) Functional quadriplegia Code(s): R53.2 - FUNCTIONAL QUADRIPLEGIA (13) Prolonged QT interval Code(s): R94.31 - ABNORMAL ELECTROCARDIOGRAM [ECG] [EKG] (14) Anemia Code(s): D64.9 - ANEMIA, UNSPECIFIED Qualifiers: Anemia type: unspecified type Qualified Code(s): D64.9 - Anemia, unspecified (15) DVT prophylaxis Code(s): [id number] - Visit type - Emergency Visit Emergency Visit: Yes ED Registration Date: 12/11/17 Care time: The patient presented to the Emergency Department on the above date and was hospitalized for further evaluation of their emergent condition. - New Patient This patient is new to me today: Yes Date on this admission: 12/12/17 - Critical Care Critical Care patient: Yes Total Critical Care Time (in minutes): 45 Critical Care Statement: The care of this patient involved high complexity decision making to prevent further life threatening deterioration of the patient 's condition and/or to evaluate & treat vital organ system(s) failure or risk of failure. Hospitalist Screening - Colonoscopy Questionnaire Colonoscopy Questionnaire: Colonoscopy Questionnaire - Patient: 50 - 75 years old and never had a screening colonoscopy: Unknown History of colon or rectal polyps, or CA: Unknown History of IBD, Crohn's disease or UC: Unknown History of abdominal radiation therapy as a child: Unknown - Relative: 1 with colon or rectal CA, or polyps at age 60 or younger: Unknown Colon or rectal CA diagnosed at age 45 or younger: Unknown Multiple relatives with colon or rectal CA: Unknown - Outcome: Screening Result: Negative Screen
[2017-12-12] MEDS ORDERED: SODIUM CHLORIDE 0.9% 500 ML INFUS.BAG IV ONE (05:24)
[2017-12-12 05:31] LABS: ALBUMIN 1.4 g/dl (3.4-5.0); ALK PHOS 65 U/L (45-117); ANION GAP 13 (8-16); BILIRUBIN,TOTAL 0.3 mg/dL (0.2-1.0); BLOOD UREA NITROGEN 37 mg/dL (7-18); CALCIUM 7.1 mg/dL (8.5-10.1); CHLORIDE 114 mmol/L (98-107); CO2 20 mmol/L (21-32); GLUCOSE,RANDOM 135 mg/dL (74-106); POTASSIUM 3.2 mmol/L (3.5-5.1); SGOT/AST 17 U/L (15-37); SGPT/ALT 7 U/L (12-78); SODIUM 147 mmol/L (136-145); TOT PROT 5.3 g/dl (6.4-8.2)
--- NOTE | 2017-12-12 05:32 | CONSULT ---
Consult Consult Specialty:: Pulmonary Critical Care Reason for Consultation:: Septic shock - History of Present Illness Chief Complaint: Diarrhea History of Present Illness: Pt is a 66 yo female with h/o CVA (residual R sided weakness), dementia, PEG and recently diagnosed C.Diff colitis who was brought to ED from [facility] with hypotension. As per report from [facility] pt with diarrhea x 5 days, positive for C.Diff and was started on Flagyl. Last night was noted to be febrile and hypotensive with SBP in 70s and brought to ED for evaluation. In ED pt febrile, hypotensive (SBP in 70s), tachycardic, SpO 2 90s on 2L/min. Labs notable for WBC 35 (now 40), Na 153, Lactate 10.9 (now down to 7), Cr 2.8 (unclear baseline) , ABG 7.45/26/76 (on 2L), UA with leuk esterase and 71WBC. She was given 3L of NS and started on Zosyn/Vanco IV for broad coverage; Flagyl continued for C.Diff. She also had R IJ TLC placed. Initially BP stabilized with fluids, however shortly thereafter became hypotensive again and is now transferred to ICU for further management. Current Medications Chlorhexidine Gluconate (Hibiclens For Decolonization -) 1 applic TP HS CLEMENTE Heparin Sodium (Porcine) (Heparin -) 5,000 unit SQ TID CLEMENTE Norepinephrine Bitartrate 4, (000 mcg/ Dextrose) 500 mls @ 15 mls/hr IV TITR CLEMENTE; 2 MCG/MIN PRN Reason: Protocol Last Admin: 12/12/17 04:21 Dose: 2 mcg/min, 15 mls/hr Metronidazole (Flagyl 500mg Premixed Ivpb -) 500 mg in 100 mls @ 100 mls/hr IVPB Q8H-IV CLEMENTE Mupirocin (Bactroban Ointment (For Decolonization) -) 1 applic NS BID CLEMENTE Stop: 12/17/17 09:59 Vancomycin HCl (Vancomycin Oral Solution) 500 mg GT Q6HPO CLEMENTE - Smoking History Smoking history: Unknown if ever smoked Home Medications - Allergies Allergies/Adverse Reactions: Allergies Allergy/AdvReac Type Severity Reaction Status Date / Time No Known Allergies Allergy Verified 12/11/17 22:11 - Home Medications Home Medications: Ambulatory Orders Acetaminophen 650 mg GT PRN PRN 12/11/17 Atorvastatin Ca [Lipitor] 40 mg GT HS 12/11/17 Bisacodyl Suppository [Dulcolax Suppository -] 10 mg RC DAILY PRN 12/11/17 Enoxaparin [Lovenox -] 40 mg SQ DAILY 12/11/17 Lacosamide Liquid [Vimpat] 10 mg GT BID 12/11/17 Valproate Sodium Liquid [Depakene] 1,250 mg GT BID 12/11/17 Vit A/Vitamin D3/E/Aloe V/Zinc [Periguard Ointment] 15 gm TP TID 12/11/17 Zinc Oxide 20% Topical Oint 454 gm NR TID 12/11/17 levETIRAcetam [Keppra Oral Solution -] 500 mg GT BID 12/11/17 metroNIDAZOLE [Flagyl -] 500 mg GT TID 12/11/17 Physical Exam Vital Signs: Vital Signs Temperature 102.3 F H 12/12/17 04:37 Pulse Rate 129 H 12/12/17 04:37 Respiratory Rate 30 H 12/12/17 04:37 Blood Pressure 84/68 12/12/17 04:37 O2 Sat by Pulse Oximetry (%) 97 12/11/17 21:28 Constitutional: Yes: No Distress HENT: Yes: Other (R IJ TLC c/d/i) Cardiovascular: Yes: Tachycardia, S1, S2 Respiratory: Yes: CTA Bilaterally Gastrointestinal: Yes: Other (soft, nd, tender in lower quadrants, PEG in place c/d/i) Extremities: Yes: Other (R foot drop) Edema: No Neurological: Yes: Other (awake, tracking, not following commands) Labs: CBC, BMP 12/12/17 03:45 CBCD WBC 40.4 K/mm3 (4.0-10.0) H* 12/12/17 03:45 RBC 3.20 M/mm3 (3.60-5.2) L 12/12/17 03:45 Hgb 9.3 GM/dL (10.7-15.3) L 12/12/17 03:45 Hct 27.7 % (32.4-45.2) L 12/12/17 03:45 MCV 86.4 fl (80-96) 12/12/17 03:45 MCHC 33.6 g/dl (32.0-36.0) 12/12/17 03:45 RDW 17.4 % (11.6-15.6) H 12/12/17 03:45 Plt Count 277 K/MM3 (134-434) 12/12/17 03:45 MPV 9.1 fl (7.5-11.1) 12/12/17 03:45 CMP Sodium 147 mmol/L (136-145) H 12/12/17 04:57 Potassium 3.2 mmol/L (3.5-5.1) L 12/12/17 04:57 Chloride 114 mmol/L (98-107) H 12/12/17 04:57 Carbon Dioxide 20 mmol/L (21-32) L 12/12/17 04:57 Anion Gap 13 (8-16) 12/12/17 04:57 BUN 37 mg/dL (7-18) H 12/12/17 04:57 Creatinine 2.0 mg/dL (0.55-1.02) H 12/12/17 04:57 Creat Clearance w eGFR 25.01 (>60) 12/12/17 04:57 Calcium 7.1 mg/dL (8.5-10.1) L 12/12/17 04:57 Total Bilirubin 0.3 mg/dL (0.2-1.0) D 12/12/17 04:57 AST 17 U/L (15-37) 12/12/17 04:57 ALT 7 U/L (12-78) L 12/12/17 04:57 Alkaline Phosphatase 65 U/L (45-117) 12/12/17 04:57 Total Protein 5.3 g/dl (6.4-8.2) L 12/12/17 04:57 Albumin 1.4 g/dl (3.4-5.0) L 12/12/17 04:57 Assessment/Plan Septic shock in the setting of C.diff +/- UTI NICOLÁS likely prerenal Hypernatremia likely hypovolemic Lactic acidosis likely 2/2 sepsis (less likely abdominal process given relatively benign abd exam and the fact that lactate decreasing) -cont levophed -fluid resuscitation -cont Zosyn/Vanco for broad coverage -d/c if cultures negative given C.Diff -cont Flagyl for C.Diff -consider adding PO Vanco for double coverage -CT a/p results pending -recheck BMP post fluids to evaluate for Cr and Na -trend lactate -cont supplemental O2 -heparin SubQ -pepcid (indication: septic shock) KAITLYNN Hamilton Critical Care time: 35 min
[2017-12-12 05:56] VITALS: BMI 25.7
[2017-12-12] MEDS ORDERED: VANCOMYCIN 250 MG/5 ML ORAL SOLUTION PO SCH (06:00)
[2017-12-12] MEDS ORDERED: HEPARIN NA (PORCINE) 5,000 UNITS/ML 1ML VIAL SQ SCH (06:00)
[2017-12-12] MEDS ORDERED: NOREPINEPHRINE BITARTRATE 4 MG/4 ML ML IV ONE ×2 (06:12→19:56)
[2017-12-12] MEDS: VANCOMYCIN 250 MG/5 ML ORAL SOLUTION GT SCH ×3 (06:22→18:46)
[2017-12-12] MEDS: HEPARIN NA (PORCINE) 5,000 UNITS/ML 1ML VIAL SQ SCH ×3 (06:22→21:10)
[2017-12-12] MEDS ORDERED: PHENYLEPHRINE HCL 10 MG/1 ML SINGLE DOSE VIAL ONE ×5 (06:40→19:57)
[2017-12-12] MEDS: PHENYLEPHRINE HCL 20,000 MCG in SODIUM CHLORIDE 248 ML IVPB SCH ×3 (06:51→12:24)
[2017-12-12 07:43] LABS: PLATELET ESTIMATE ADEQUATE
[2017-12-12] MEDS ORDERED: POTASSIUM CHLORIDE 10 MEQ PREMIX IVPB (POTASSIUM RIDER) IVPB SCH ×2 (08:00→17:15)
[2017-12-12] MEDS ORDERED: SODIUM CHLORIDE 1,000 ML IV SCH (08:15)
--- NOTE | 2017-12-12 08:54 | PN ---
Physical Exam: SUBJECTIVE: Patient awake, minimally verbal, responsive to verbal and tactile stimuli. Family @ bedside, confirm patient is at baseline MS. OBJECTIVE: Vital Signs Period Temp Pulse Resp BP Sys/Levine Pulse Ox Last 24 Hr 98.6 F-102.3 F 108-129 24-35 44-90/25-68 97-99 GENERAL: The patient is awake, tracks with eyes, withdraws from painful stimuli , responds to verbal stimuli HEAD: Normal with no signs of trauma. EYES: PERRL, sclera anicteric, conjunctiva clear. No ptosis. NECK: Trachea midline, supple. LUNGS: Breath sounds equal, clear to auscultation bilaterally, no wheezes, no crackles, no accessory muscle use. HEART: Regular rate and rhythm, S1, S2 without murmur, rub or gallop. ABDOMEN: Soft, nontender, nondistended, normoactive bowel sounds EXTREMITIES: 2+ pulses, warm, well-perfused, no edema. Laboratory Results - last 24 hr 12/11/17 12/11/17 12/11/17 22:30 22:30 22:30 WBC 35.3 H* RBC 3.07 L Hgb 8.8 L Hct 27.1 L MCV 88.3 MCH 28.6 MCHC 32.4 RDW 17.3 H Plt Count 248 MPV 9.3 Total Counted 100 Neutrophils % No Result Required. Neutrophils % (Manual) 56.0 Band Neutrophils % 19.0 Lymphocytes % No Result Required. Lymphocytes % (Manual) 5.0 L Monocytes % (Manual) 6 Basophils % (Manual) 1.0 Myelocytes % (Man) 9 H Nucleated RBC % 1 H Metamyelocytes 4 H Differential Comment Man diff performed Platelet Estimate Adequate Platelet Comment Giant platelets Polychromasia 1+ Anisocytosis 1+ Macrocytosis 1+ PT with INR 15.50 H INR 1.37 H PTT (Actin FS) 23.2 L Anticoagulation Therapy Puncture Site ABG pH ABG pCO2 at Pt Temp ABG pO2 at Pt Temp ABG HCO3 ABG O2 Sat (Measured) ABG O2 Content ABG Base Excess Amando Test Carboxyhemoglobin Methemoglobin O2 Delivery Device Oxygen Flow Rate Vent Mode Vent Rate Mechanical Rate Pressure Support Vent Sodium 153 H Potassium 3.9 Chloride 116 H Carbon Dioxide 21 Anion Gap 16 BUN 40 H Creatinine 2.8 H Creat Clearance w eGFR 16.96 Random Glucose 218 H Lactic Acid Calcium 7.5 L Total Bilirubin 0.2 AST 23 ALT 6 L Alkaline Phosphatase 73 Total Protein 5.5 L Albumin 1.4 L Urine Color Urine Appearance Urine pH Ur Specific [place] Urine Protein Urine Glucose (UA) Urine Ketones Urine Blood Urine Nitrite Urine Bilirubin Urine Urobilinogen Ur Leukocyte Esterase Urine WBC (Auto) Urine RBC (Auto) Ur Epithelial Cells Hyaline Casts Urine Mucus Stool Occult Blood Blood Type Antibody Screen 12/11/17 12/11/17 12/11/17 22:30 23:15 23:50 WBC RBC Hgb Hct MCV MCH MCHC RDW Plt Count MPV Total Counted Neutrophils % Neutrophils % (Manual) Band Neutrophils % Lymphocytes % Lymphocytes % (Manual) Monocytes % (Manual) Basophils % (Manual) Myelocytes % (Man) Nucleated RBC % Metamyelocytes Differential Comment Platelet Estimate Platelet Comment Polychromasia Anisocytosis Macrocytosis PT with INR INR PTT (Actin FS) Anticoagulation Therapy No Result Required. Puncture Site Right radial ABG pH 7.45 ABG pCO2 at Pt Temp 25.9 L ABG pO2 at Pt Temp 76.3 L ABG HCO3 17.6 L ABG O2 Sat (Measured) 94.9 ABG O2 Content 12.9 L ABG Base Excess -5.0 L Amando Test Positive Carboxyhemoglobin 1.6 Methemoglobin 1.5 O2 Delivery Device Nasal Oxygen Flow Rate 4l Vent Mode No Result Required. Vent Rate No Result Required. Mechanical Rate No Result Required. Pressure Support Vent No Result Required. Sodium Potassium Chloride Carbon Dioxide Anion Gap BUN Creatinine Creat Clearance w eGFR Random Glucose Lactic Acid 10.9 H* Calcium Total Bilirubin AST ALT Alkaline Phosphatase Total Protein Albumin Urine Color Radha Urine Appearance Cloudy Urine pH 5.0 Ur Specific [place] 1.026 Urine Protein 1+ H Urine Glucose (UA) Negative Urine Ketones Negative Urine Blood Negative Urine Nitrite Negative Urine Bilirubin Negative Urine Urobilinogen 2.0 H Ur Leukocyte Esterase 2+ H Urine WBC (Auto) 71 Urine RBC (Auto) 3 Ur Epithelial Cells Rare Hyaline Casts 11 Urine Mucus Rare Stool Occult Blood Blood Type Antibody Screen 12/12/17 12/12/17 12/12/17 03:45 03:45 04:10 WBC 40.4 H* RBC 3.20 L Hgb 9.3 L Hct 27.7 L MCV 86.4 MCH 29.0 MCHC 33.6 RDW 17.4 H Plt Count 277 MPV 9.1 Total Counted 100 Neutrophils % No Result Required. Neutrophils % (Manual) 77.0 Band Neutrophils % 8.0 Lymphocytes % No Result Required. Lymphocytes % (Manual) 8.0 Monocytes % (Manual) 2 L Basophils % (Manual) Myelocytes % (Man) 3 H Nucleated RBC % Metamyelocytes 2 Differential Comment Platelet Estimate Adequate Platelet Comment Polychromasia Anisocytosis Macrocytosis PT with INR INR PTT (Actin FS) Anticoagulation Therapy Puncture Site ABG pH ABG pCO2 at Pt Temp ABG pO2 at Pt Temp ABG HCO3 ABG O2 Sat (Measured) ABG O2 Content ABG Base Excess Amando Test Carboxyhemoglobin Methemoglobin O2 Delivery Device Oxygen Flow Rate Vent Mode Vent Rate Mechanical Rate Pressure Support Vent Sodium Potassium Chloride Carbon Dioxide Anion Gap BUN Creatinine Creat Clearance w eGFR Random Glucose Lactic Acid 7.2 H* Calcium Total Bilirubin AST ALT Alkaline Phosphatase Total Protein Albumin Urine Color Urine Appearance Urine pH Ur Specific [place] Urine Protein Urine Glucose (UA) Urine Ketones Urine Blood Urine Nitrite Urine Bilirubin Urine Urobilinogen Ur Leukocyte Esterase Urine WBC (Auto) Urine RBC (Auto) Ur Epithelial Cells Hyaline Casts Urine Mucus Stool Occult Blood Blood Type A POSITIVE Antibody Screen Negative 12/12/17 12/12/17 04:30 04:57 WBC RBC Hgb Hct MCV MCH MCHC RDW Plt Count MPV Total Counted Neutrophils % Neutrophils % (Manual) Band Neutrophils % Lymphocytes % Lymphocytes % (Manual) Monocytes % (Manual) Basophils % (Manual) Myelocytes % (Man) Nucleated RBC % Metamyelocytes Differential Comment Platelet Estimate Platelet Comment Polychromasia Anisocytosis Macrocytosis PT with INR INR PTT (Actin FS) Anticoagulation Therapy Puncture Site ABG pH ABG pCO2 at Pt Temp ABG pO2 at Pt Temp ABG HCO3 ABG O2 Sat (Measured) ABG O2 Content ABG Base Excess Amando Test Carboxyhemoglobin Methemoglobin O2 Delivery Device Oxygen Flow Rate Vent Mode Vent Rate Mechanical Rate Pressure Support Vent Sodium 147 H Potassium 3.2 L Chloride 114 H Carbon Dioxide 20 L Anion Gap 13 BUN 37 H Creatinine 2.0 H Creat Clearance w eGFR 25.01 Random Glucose 135 H Lactic Acid Calcium 7.1 L Total Bilirubin 0.3 D AST 17 ALT 7 L Alkaline Phosphatase 65 Total Protein 5.3 L Albumin 1.4 L Urine Color Urine Appearance Urine pH Ur Specific [place] Urine Protein Urine Glucose (UA) Urine Ketones Urine Blood Urine Nitrite Urine Bilirubin Urine Urobilinogen Ur Leukocyte Esterase Urine WBC (Auto) Urine RBC (Auto) Ur Epithelial Cells Hyaline Casts Urine Mucus Stool Occult Blood Negative Blood Type Antibody Screen Active Medications Generic Name Dose Route Start Last Admin Trade Name Teofilo PRN Reason Stop Dose Admin Chlorhexidine Gluconate 1 applic 12/12/17 22:00 Hibiclens For Decolonization - TP HS CLEMENTE Heparin Sodium (Porcine) 5,000 unit 12/12/17 06:00 12/12/17 06:22 Heparin - SQ 5,000 unit TID CLEMENTE Administration Norepinephrine Bitartrate 4, 500 mls @ 15 mls/hr 12/12/17 03:15 12/12/17 06: 10 000 mcg/ Dextrose IV 15 mcg/min TITR CLEMENTE 112.5 mls/hr Protocol Titration 2 MCG/MIN Metronidazole 500 mg in 100 mls @ 100 mls/hr 12/12/17 11:00 Flagyl 500mg Premixed Ivpb - IVPB Q8H-IV CLEMENTE Phenylephrine HCl 20,000 mcg/ 250 mls @ 75 mls/hr 12/12/17 06:45 12/12/17 07: 06 Sodium Chloride IVPB 150 mcg/min TITR CLEMENTE 112.5 mls/hr Protocol Titration 100 MCG/MIN Sodium Chloride 1,000 mls @ 75 mls/hr 12/12/17 08:15 12/12/17 08:05 Normal Saline - IV 75 mls/hr ASDIR CLEMENTE Administration Mupirocin 1 applic 12/12/17 10:00 Bactroban Ointment (For Decolonization) - NS 12/17/17 09:59 BID CLEMENTE Potassium Chloride 10 meq 12/12/17 07:59 Potassium Chloride 10 Meq Premix Ivpb - IVPB 12/12/17 09:00 Q1H CLEMENTE Vancomycin HCl 500 mg 12/12/17 06:00 12/12/17 06:22 Vancomycin Oral Solution GT 500 mg Q6HPO CLEMENTE Administration ASSESSMENT/PLAN: Patient is a 67 year old female with a PMH of CVA (residual R sided weakness), dementia, PEG tube, HLD, epilepsy who presented to ED on 12/11 from assisted living facility for hypotension and hypoxia. Patient recently tested positive for C. Diff (12/09) on Flagyll. 1. SEPSIS 2/2 to MODS vs. C. Difficile Colitis - Febrile (102.3) and hypotensive 71/44 @ presentation on 12/11 - Currently afebrile - BP overnight 40's-70's/20's-40's - Lactic Acidosis resolving 10.9 -> 7.2 - Will continue pressors with close BP monitoring - LR Bolus + IV NS maintenance fluids - Continue Vancomycin, hold Zoysn 2/2 to renal compromise 2. CARDIAC - Hypotensive: 40's-70's/20's-40's - Continue pressors and fluid resuscitation with plan of weaning off Phenylepinephrine - Echo pending 3. PULMONARY - SpO2 98% on 4 L NC; tachypneic - CXR shows R sided atelectasis - Repeat CXR, ABG pending 4. GI - Fulminant C. Diff Colitis - CT Abdomen/Pelvis shows diffuse colonic thickening, partial SBO, complex cystic mass in anterior bladder wall - Stool culture pending - Continue Flagyll; close monitoring for toxic megacolon 5. RENAL - NICOLÁS - Cr. 2.0 <-- 2.8, BUN 37 <-- 40, likely pre-renal - Renal/Bladder U/S pending - Will recheck BMP pending fluids 4. HYPOKALEMIA - likely 2/2 to C. Diff Colitis induced diarrhea - K+ 3.2 today (12/12) - Replacement with repeat K+ pending 5. HYPERNATREMIA - likely 2/2 to volume loss 2/2 to C Diff colitis induced diarrhea - Na+ 147 today <-- 153 - LR + IV NS maintenance fluids - Continue to trend 6. NORMOCYTIC ANEMIA - 2/2 to Colitis vs. Chronic Disease vs CRYSTAL - Hb 9.3 today < -- 8.8, no previous Hb in system - FOBT pending 7. NEUROLOGIC - Patient alert, responsive to verbal and tactile stimuli, tracks with eyes; @ baseline - Continue to monitor FEN - Electrolyte monitoring and replacement as indicated above - J-tube feeding once stable PROPHYLAXIS Heparin SQ SCDs FULL CODE Visit type - Emergency Visit Emergency Visit: No - New Patient This patient is new to me today: Yes Date on this admission: 12/12/17 - Critical Care Critical Care patient: No
[2017-12-12] MEDS: POTASSIUM CHLORIDE 10 MEQ PREMIX IVPB (POTASSIUM RIDER) IVPB SCH ×2 (09:25→10:37)
[2017-12-12] MEDS ORDERED: MUPIROCIN 2% TOPICAL OINTMENT FOR DECOLONIZATION NS SCH (10:00)
[2017-12-12] MEDS ORDERED: PIPERACILLIN/TAZOB 2.25 GM 2.25 GM in DEXTROSE 5%-WATER - 50 ML IVPB ONE (10:15)
[2017-12-12] MEDS: MUPIROCIN 2% TOPICAL OINTMENT FOR DECOLONIZATION NS SCH ×2 (10:37→21:10)
[2017-12-12] MEDS ORDERED: PIPERACILLIN/TAZOBACTAM 2.25 GM VIAL IVPB ONE (10:40)
[2017-12-12] MEDS ORDERED: DEXTROSE 5%-WATER - 50 ML IVPB ONE (10:40)
--- NOTE | 2017-12-12 10:51 | EKG ---
Test Reason : Blood Pressure : / mmHG Vent. Rate : 124 BPM Atrial Rate : 124 BPM P-R Int : 120 ms QRS Dur : 064 ms QT Int : 396 ms P-R-T Axes : 052 027 058 degrees QTc Int : 568 ms SINUS TACHYCARDIA LOW VOLTAGE QRS NONSPECIFIC T WAVE ABNORMALITY ABNORMAL ECG NO PREVIOUS ECGS AVAILABLE Confirmed by NATACHA MORALES MD ([id number]) on 12/12/2017 10:51:45 AM Referred By: Confirmed By:NATACHA MORALES MD
[2017-12-12] MEDS ORDERED: LACTATED RINGERS SOLUTION 1000 ML INFUS.BAG IV ONE (11:11)
[2017-12-12] MEDS: PANTOPRAZOLE SODIUM 40 MG VIAL IVPUSH SCH (12:30)
[2017-12-12 13:57] LABS: ARTERIAL BLD GAS O2 SATURATION 96.5 % (90-98.9); ARTERIAL BLOOD GAS BASE EXCESS -7.4 meq/l (-2-2); ARTERIAL BLOOD GAS PCO2 27.4 mmHg (35-45); ARTERIAL BLOOD GAS PO2 89.1 mmHg (80-100); ARTERIAL BLOOD GAS pH 7.39 (7.35-7.45)
[2017-12-12 14:00] LABS: ALLENS TEST POSITIVE
--- NOTE | 2017-12-12 14:52 | CON.ID ---
Consult Consult Specialty:: infectious diseases Reason for Consultation:: sepsis,leukocytosis,cdiff - History of Present Illness History of Present Illness: patient in no condition to give history,just opens eyes to her name the story of the patient is as follows 66 yo female with h/o CVA (residual R sided weakness), dementia, PEG and recently diagnosed C.Diff colitis who was brought [place] ED from [place] with hypotension. As per report from [facility] pt with diarrhea x 5 days, positive for C.Diff and was started on Flagyl. Last night was noted to be febrile and hypotensive in the ed patient continued to be hypotensive aftre fluids and was txed to icu for further mgmt the above was the history taken from the charts and currently patient in the icu non verbal but able to open eyes on taking her name patient has known history of HTN, HLD, Seizure Disorder, Epilepsy, UTIs, Sepsis , Anemia, TIa, CVA (no residual deficits), MDD, Dyspahgia, Sacral Ulcer, recently diagnosed C- Diff (12/09/17). patient currently on pressors he has has received multiple abx in the ed and now currently on vanco orlly and flagyl iv wbc has increased - History Source History Provided By: Medical Record Limitations to Obtaining History: Clinical Condition - Smoking History Smoking history: Unknown if ever smoked Home Medications - Allergies Allergies/Adverse Reactions: Allergies Allergy/AdvReac Type Severity Reaction Status Date / Time No Known Allergies Allergy Verified 12/11/17 22:11 - Home Medications Home Medications: Ambulatory Orders Acetaminophen 650 mg GT PRN PRN 12/11/17 Atorvastatin Ca [Lipitor] 40 mg GT HS 12/11/17 Bisacodyl Suppository [Dulcolax Suppository -] 10 mg RC DAILY PRN 12/11/17 Enoxaparin [Lovenox -] 40 mg SQ DAILY 12/11/17 Lacosamide Liquid [Vimpat] 10 mg GT BID 12/11/17 Valproate Sodium Liquid [Depakene] 1,250 mg GT BID 12/11/17 Vit A/Vitamin D3/E/Aloe V/Zinc [Periguard Ointment] 15 gm TP TID 12/11/17 Zinc Oxide 20% Topical Oint 454 gm NR TID 12/11/17 levETIRAcetam [Keppra Oral Solution -] 500 mg GT BID 12/11/17 metroNIDAZOLE [Flagyl -] 500 mg GT TID 12/11/17 Review of Systems Unable to obtain ROS, reason: unable Physical Exam Vital Signs: Vital Signs Temperature 99.5 F 12/12/17 14:00 Pulse Rate 125 H 12/12/17 14:06 Respiratory Rate 38 H 12/12/17 14:00 Blood Pressure 101/89 12/12/17 14:06 O2 Sat by Pulse Oximetry (%) 99 12/12/17 05:58 Constitutional: Yes: Other HENT: Yes: Atraumatic, Other (rt ij in place) Neck: Yes: Supple, Trachea Midline Cardiovascular: Yes: Regular Rate and Rhythm Respiratory: Yes: Regular, Poor Air Entry (at the bases) Gastrointestinal: Yes: Normal Bowel Sounds, Soft, Other (peg in place) Musculoskeletal: Yes: WNL Extremities: Yes: WNL Neurological: Yes: Other (non verbal) Psychiatric: Yes: Other Labs: CBC, BMP 12/12/17 03:45 12/12/17 04:57 Imaging - Results Chest X-ray: Report Reviewed, Image Reviewed Cat Scan: Report Reviewed, Image Reviewed Assessment/Plan after looking at the patients ct scan and the patient i have strong suspicion that this could be very well due to cdiff although patient is septic and has a very worrisome picture Problem List - Problem (1) MODS (multiple organ dysfunction syndrome) Code(s): [id number] - (2) Severe sepsis Code(s): A41.9 - SEPSIS, UNSPECIFIED ORGANISM; R65.20 - SEVERE SEPSIS WITHOUT SEPTIC SHOCK (3) Clostridium difficile diarrhea Code(s): A04.72 - ENTEROCOLITIS D/T CLOSTRIDIUM DIFFICILE, NOT SPCF RECUR (4) Hypernatremia Code(s): E87.0 - HYPEROSMOLALITY AND HYPERNATREMIA (5) Chronic respiratory failure Code(s): J96.10 - CHRONIC RESPIRATORY FAILURE, UNSP W HYPOXIA OR HYPERCAPNIA (6) Seizures Code(s): R56.9 - UNSPECIFIED CONVULSIONS (7) Bladder mass Code(s): N32.89 - OTHER SPECIFIED DISORDERS OF BLADDER (8) MDD (major depressive disorder) Code(s): F32.9 - MAJOR DEPRESSIVE DISORDER, SINGLE EPISODE, UNSPECIFIED (9) Hx TIA/stroke w/o resid Code(s): Z86.73 - PRSNL HX OF TIA (TIA), AND CEREB INFRC W/O RESID DEFICITS (10) HTN (hypertension) Code(s): I10 - ESSENTIAL (PRIMARY) HYPERTENSION (11) HLD (hyperlipidemia) Code(s): E78.5 - HYPERLIPIDEMIA, UNSPECIFIED (12) Functional quadriplegia Code(s): R53.2 - FUNCTIONAL QUADRIPLEGIA (13) Prolonged QT interval Code(s): R94.31 - ABNORMAL ELECTROCARDIOGRAM [ECG] [EKG] (14) Anemia Code(s): D64.9 - ANEMIA, UNSPECIFIED Qualifiers: Anemia type: unspecified type Qualified Code(s): D64.9 - Anemia, unspecified plan i would continue beba and kaila for now hydration monitor wbc await for cx before starting on any other abx patient might very well need other abx close watch hydration rest as per icu
--- NOTE | 2017-12-12 14:57 | CON.GI ---
Consult Consult Specialty:: GI Reason for Consultation:: c. diff - History of Present Illness History of Present Illness: Chart reviewed. Events noted. Per ED intake: This is a 67 y/o woman from [facility] with a PMH: HTN, HLD, Seizure Disorder, Epilepsy, UTIs, Sepsis, Anemia, TIa, CVA (no residual deficits), MDD, Dyspahgia, Sacral Ulcer, recently diagnosed C- Diff (12/09/17). Who presents to the ED for Fever, Hypotension. Patient is non-verbal unable to provider HPI. Per ED records, patient was found by the [facility] staff to be febrile and hypotensive and sent in for evaluation. On arrival to the ED patient was in Severe Sepsis- T Max 101.3, P 119, R 30, BP 71/ 44, Spo2 97% w/ trach collar on vent. During the course in the ED patient's MAP < 60 after 3L fluid resuscitation. Vancomycin, Zosyn was given in ED. Patient continued to have a MAP < 60, requiring ICU admission for MODS secondary to Fulminate C- Diff infection. ER course was notable for: (1) MODS Criteria Met- LA 10.9~7.2, WBC 30>40, BP [id number] (2) Chest Xray- No acute pulmonary disease (3) CTAP- Diffuse Colonic Thickening, Partial SBO, Complex Cystic Mass in Anterior Bladder Wall (4) NICOLÁS- BUN 2.8 (5) Stool Occult- negative At the time of this encounter the patient appears in mild distress. Awake, but cannot provide history due to dementia. Abdomen firm, distended, mass felt in suprapubic area extending into the RLQ. No apparent abdominal tenderness elicited. Brown, thick liquid stools in collection bag. Radha colored urine per yessicaey. On labs: significant leukocytosis, elevated Cr and low albumin. CT A/P diffuse pancolitis. MRI of the pelvis recommended for pelvic "complex cyst". - History Source History Provided By: Medical Record Limitations to Obtaining History: Dementia - Smoking History Smoking history: Unknown if ever smoked Home Medications - Allergies Allergies/Adverse Reactions: Allergies Allergy/AdvReac Type Severity Reaction Status Date / Time No Known Allergies Allergy Verified 12/11/17 22:11 - Home Medications Home Medications: Ambulatory Orders Acetaminophen 650 mg GT PRN PRN 12/11/17 Atorvastatin Ca [Lipitor] 40 mg GT HS 12/11/17 Bisacodyl Suppository [Dulcolax Suppository -] 10 mg RC DAILY PRN 12/11/17 Enoxaparin [Lovenox -] 40 mg SQ DAILY 12/11/17 Lacosamide Liquid [Vimpat] 10 mg GT BID 12/11/17 Valproate Sodium Liquid [Depakene] 1,250 mg GT BID 12/11/17 Vit A/Vitamin D3/E/Aloe V/Zinc [Periguard Ointment] 15 gm TP TID 12/11/17 Zinc Oxide 20% Topical Oint 454 gm NR TID 12/11/17 levETIRAcetam [Keppra Oral Solution -] 500 mg GT BID 12/11/17 metroNIDAZOLE [Flagyl -] 500 mg GT TID 12/11/17 Family Disease History - Family Disease History Family History: Unremarkable (non-contributory) Review of Systems Unable to obtain ROS, reason: dementia Physical Exam-GI Vital Signs: Vital Signs Temperature 99.5 F 12/12/17 14:00 Pulse Rate 125 H 12/12/17 14:06 Respiratory Rate 38 H 12/12/17 14:00 Blood Pressure 101/89 12/12/17 14:06 O2 Sat by Pulse Oximetry (%) 99 12/12/17 05:58 Constitutional: Yes: Mild Distress HENT: Yes: Atraumatic Neck: Yes: Supple Labs: CBC, BMP 12/12/17 03:45 12/12/17 04:57 INR, PTT INR 1.37 (0.82-1.09) H 12/11/17 22:30 Imaging - Results Cat Scan: Report Reviewed Assessment/Plan Possibly fulminant c.diff associated colitis in settings of pancolitis, poor renal funtion and low albumin requiring resuciation with fluids and vasopressors. No signs of ileus,or megacolon. Agree with IV/G-tube vanco and IV flagyl, ICU monitoring, ID consult. Prognosis very poor. Will follow.
[2017-12-12 17:01] LABS: ANION GAP 12 (8-16); BLOOD UREA NITROGEN 28 mg/dL (7-18); CALCIUM 7.2 mg/dL (8.5-10.1); CHLORIDE 116 mmol/L (98-107); CO2 20 mmol/L (21-32); CREATININE 1.3 mg/dL (0.55-1.02); GLUCOSE,RANDOM 182 mg/dL (74-106); POTASSIUM 3.4 mmol/L (3.5-5.1); SODIUM 148 mmol/L (136-145)
--- NOTE | 2017-12-12 17:19 | PN ---
Progress Note (short form) - Note Progress Note: Repeat BMP shows K+ is still low, likely from Cdiff diarrhea Will give total 40meq K+ Will also add potassium to maintenance fluids. Repeat lab in AM
[2017-12-12] MEDS ORDERED: SODIUM CHLORIDE 0.9%/KCL 20 MEQ/1,000 ML INFUS.BAG IV SCH (17:30)
[2017-12-12] MEDS ORDERED: POTASSIUM CHLORIDE ORAL LIQUID 20 MEQ/15 ML PO ONE (17:30)
[2017-12-12] MEDS ORDERED: KCL 10 MEQ IVPB 10 MEQ/100 ML INFUS.BAG IVPB SCH (17:30)
--- NOTE | 2017-12-12 17:54 | CONSULT ---
Consult - text type - Consultation Consultation Note: Renal Consult for NICOLÁS This is a 67 year old woman with PMhx of CVS, Dementia, PEG with recent Cdiff admission who presented with hypotension and found to have acute sepsis with NICOLÁS. No baseline Cr available on EMR. Pt is awake and alert but non-verbal. Pt in ICU on 2 pressers and IVF. Rectal tube and bingham in place. CT of the Abd showed Colitis. PMhx: as above Allergies: NKDA Family Hx: Nc Social Hx: No T/A/D ROS: unable to access. Home Medications Medication Instructions Recorded Acetaminophen 650 mg GT PRN PRN 12/11/17 Atorvastatin Ca [Lipitor] 40 mg GT HS 12/11/17 Bisacodyl Suppository [Dulcolax 10 mg RC DAILY PRN 12/11/17 Suppository -] Enoxaparin [Lovenox -] 40 mg SQ DAILY 12/11/17 Lacosamide Liquid [Vimpat] 10 mg GT BID 12/11/17 Valproate Sodium Liquid [Depakene] 1,250 mg GT BID 12/11/17 Vit A/Vitamin D3/E/Aloe V/Zinc 15 gm TP TID 12/11/17 [Periguard Ointment] Zinc Oxide 20% Topical Oint 454 gm NR TID 12/11/17 levETIRAcetam [Keppra Oral 500 mg GT BID 12/11/17 Solution -] metroNIDAZOLE [Flagyl -] 500 mg GT TID 12/11/17 Vital Signs Temperature 100.5 F H 12/12/17 15:00 Pulse Rate 118 H 12/12/17 17:00 Respiratory Rate 35 H 12/12/17 17:00 Blood Pressure 81/58 12/12/17 17:00 O2 Sat by Pulse Oximetry (%) 99 12/12/17 05:58 Intake & Output 12/09/17 12/10/17 12/11/17 12/12/17 23:59 23:59 23:59 23:59 Output Total 200 800 Balance -200 -800 Weight 68.492 kg 72.393 kg CBC, BMP 12/12/17 03:45 12/12/17 15:45 Current Medications Chlorhexidine Gluconate (Hibiclens For Decolonization -) 1 applic TP HS CLEMENTE Heparin Sodium (Porcine) (Heparin -) 5,000 unit SQ TID CLEMETNE Last Admin: 12/12/17 13:17 Dose: 5,000 unit Norepinephrine Bitartrate 4, (000 mcg/ Dextrose) 500 mls @ 15 mls/hr IV TITR CLEMENTE; 2 MCG/MIN PRN Reason: Protocol Last Admin: 12/12/17 14:05 Dose: 20 mcg/min, 150 mls/hr Metronidazole (Flagyl 500mg Premixed Ivpb -) 500 mg in 100 mls @ 100 mls/hr IVPB Q8H-IV [facility] Last Admin: 12/12/17 10:42 Dose: 100 mls/hr Phenylephrine HCl 20,000 mcg/ (Sodium Chloride) 250 mls @ 75 mls/hr IVPB TITR CLEMENTE; 100 MCG/MIN PRN Reason: Protocol Last Titration: 12/12/17 16:14 Dose: 100 mcg/min, 75 mls/hr Potassium Chloride (Potassium Chloride 10 Meq Premix Ivpb -) 10 meq in 100 mls @ 100 mls/hr IVPB Q60M [facility] Stop: 12/12/17 19:29 Potassium Chloride/Sodium Chloride (Ns+20 Meq Kcl -) 20 meq in 1,000 mls @ 75 mls/hr IV ASDIR [facility] Mupirocin (Bactroban Ointment (For Decolonization) -) 1 applic NS BID [facility] Stop: 12/17/17 09:59 Last Admin: 12/12/17 10:37 Dose: 1 applic Pantoprazole Sodium (Protonix Iv) 40 mg IVPUSH DAILY [facility] Last Admin: 12/12/17 12:30 Dose: 40 mg Vancomycin HCl (Vancomycin Oral Solution) 500 mg GT Q6HPO [facility] Last Admin: 12/12/17 12:30 Dose: 500 mg 67 year old woman with PMhx of CVS, Dementia, PEG with recent Cdiff admission who presented with hypotension and found to have acute sepsis with NICOLÁS #Acute Kidney Injury secondary to renal hypoprofusion +/- ATN in setting of Sepsis #Lactic acidosis #Colitis/C-diff #Sepsis with hypotension #Anemia #Hypokalemia #Hypernatremia Renal function is improving with IVF and vasopressers. Titrate fluids and vasopressers to maintain MAP > 65 and CVP 8-10 Check urine for FeNa CT showed no obstruction of the kidneys, no further renal imaging needed continue Emperic Abx as per ID no indication for bicarb at this time Continue KCL with IVF Trend BP Q12h Thank you Will follow Constantino Clemons DO
[2017-12-12] MEDS: KCL 10 MEQ IVPB 10 MEQ/100 ML INFUS.BAG IVPB SCH ×2 (18:19→19:00)
[2017-12-12] MEDS: CHLORHEXIDINE GLUCONATE 4% CLEANSER FOR DECOLONIZATION TP SCH (21:11)
[2017-12-12] MEDS ORDERED: CHLORHEXIDINE GLUCONATE 4% CLEANSER FOR DECOLONIZATION TP SCH (22:00)
[2017-12-13] MEDS: VANCOMYCIN 250 MG/5 ML ORAL SOLUTION GT SCH ×4 (00:39→17:01)
[2017-12-13 01:26] LABS: ALBUMIN 1.3 g/dl (3.4-5.0); ALK PHOS 78 U/L (45-117); ANION GAP 11 (8-16); BILIRUBIN,TOTAL 0.2 mg/dL (0.2-1.0); BLOOD UREA NITROGEN 24 mg/dL (7-18); CALCIUM 7.1 mg/dL (8.5-10.1); CHLORIDE 115 mmol/L (98-107); CO2 18 mmol/L (21-32); CREATININE 1.1 mg/dL (0.55-1.02); GLUCOSE,RANDOM 207 mg/dL (74-106); POTASSIUM 4.2 mmol/L (3.5-5.1); SGOT/AST 20 U/L (15-37); SGPT/ALT 7 U/L (12-78); SODIUM 144 mmol/L (136-145); TOT PROT 4.8 g/dl (6.4-8.2)
[2017-12-13] MEDS ORDERED: ACETAMINOPHEN 325 MG TABLET (FP) ONE (02:10)
[2017-12-13 06:14] LABS: HEMATOCRIT 27.8 % (32.4-45.2); HEMOGLOBIN 9.1 GM/dL (10.7-15.3); MCH 28.5 pg (25.7-33.7); MCHC 32.7 g/dl (32.0-36.0); MEAN CELL VOLUME 87.3 fl (80-96); MEAN PLT VOLUME 8.5 fl (7.5-11.1); PLATELET COUNT 313 K/MM3 (134-434); RBC 3.19 M/mm3 (3.60-5.2); RDW 17.2 % (11.6-15.6)
[2017-12-13] MEDS: NOREPINEPHRINE BITARTRATE 4,000 MCG in DEXTROSE 5%-WATER - 496 ML IV SCH ×2 (06:22→08:27)
[2017-12-13] MEDS: HEPARIN NA (PORCINE) 5,000 UNITS/ML 1ML VIAL SQ SCH ×3 (06:23→21:55)
[2017-12-13 06:29] LABS: WHITE BLOOD COUNT 50.5 K/mm3 (4.0-10.0)
--- NOTE | 2017-12-13 07:27 | PN ---
Physical Exam: SUBJECTIVE: Patient alert, verbal ("good morning"), tracks with eyes. OBJECTIVE: Vital Signs Period Temp Pulse Resp BP Sys/Levine Pulse Ox Last 24 Hr 98.4 F-100.5 F 88-127 24-38 68-113/44-89 99 GENERAL: The patient is awake, alert, minimally verbal HEAD: Normal with no signs of trauma, RIJ in place EYES: PERRL, extraocular movements intact, sclera anicteric, conjunctiva clear. No ptosis. NECK: Trachea midline, supple. LUNGS: Breath sounds equal, no accessory muscle use. HEART: Regular rate and rhythm, S1, S2 without murmur, rub or gallop. ABDOMEN: Soft, nontender, nondistended, normoactive bowel sounds, no masses. EXTREMITIES: 2+ pulses, warm, well-perfused, no edema. NEUROLOGICAL: alert, lethargic Laboratory Results - last 24 hr 12/12/17 12/12/17 12/12/17 03:45 07:54 12:20 WBC RBC Hgb Hct MCV MCH MCHC RDW Plt Count MPV Total Counted 100 Neutrophils % (Manual) 77.0 Band Neutrophils % 8.0 Lymphocytes % (Manual) 8.0 Monocytes % (Manual) 2 L Myelocytes % (Man) 3 H Metamyelocytes 2 Platelet Estimate Adequate Puncture Site Right radial ABG pH 7.39 ABG pCO2 at Pt Temp 27.4 L ABG pO2 at Pt Temp 89.1 ABG HCO3 16.2 L ABG O2 Sat (Measured) 96.5 ABG O2 Content 10.8 L ABG Base Excess -7.4 L Amando Test Positive O2 Delivery Device Nasal cannula Oxygen Flow Rate 3l Mechanical Rate No PEEP 0.0 Sodium Potassium Chloride Carbon Dioxide Anion Gap BUN Creatinine Creat Clearance w eGFR Random Glucose Lactic Acid 6.6 H* Calcium Total Bilirubin AST ALT Alkaline Phosphatase Total Protein Albumin U Random Total Protein Ur Random Sodium Urine Creatinine 12/12/17 12/12/17 12/12/17 15:45 15:45 20:45 WBC RBC Hgb Hct MCV MCH MCHC RDW Plt Count MPV Total Counted Neutrophils % (Manual) Band Neutrophils % Lymphocytes % (Manual) Monocytes % (Manual) Myelocytes % (Man) Metamyelocytes Platelet Estimate Puncture Site ABG pH ABG pCO2 at Pt Temp ABG pO2 at Pt Temp ABG HCO3 ABG O2 Sat (Measured) ABG O2 Content ABG Base Excess Amando Test O2 Delivery Device Oxygen Flow Rate Mechanical Rate PEEP Sodium 148 H Potassium 3.4 L Chloride 116 H Carbon Dioxide 20 L Anion Gap 12 BUN 28 H Creatinine 1.3 H Creat Clearance w eGFR Random Glucose 182 H Lactic Acid 5.5 H* Calcium 7.2 L Total Bilirubin AST ALT Alkaline Phosphatase Total Protein Albumin U Random Total Protein Ur Random Sodium 7 Urine Creatinine 12/12/17 12/12/17 12/13/17 20:45 20:45 00:00 WBC RBC Hgb Hct MCV MCH MCHC RDW Plt Count MPV Total Counted Neutrophils % (Manual) Band Neutrophils % Lymphocytes % (Manual) Monocytes % (Manual) Myelocytes % (Man) Metamyelocytes Platelet Estimate Puncture Site ABG pH ABG pCO2 at Pt Temp ABG pO2 at Pt Temp ABG HCO3 ABG O2 Sat (Measured) ABG O2 Content ABG Base Excess Amando Test O2 Delivery Device Oxygen Flow Rate Mechanical Rate PEEP Sodium 144 Potassium 4.2 Chloride 115 H Carbon Dioxide 18 L Anion Gap 11 BUN 24 H Creatinine 1.1 H Creat Clearance w eGFR 49.85 Random Glucose 207 H Lactic Acid Calcium 7.1 L Total Bilirubin 0.2 D AST 20 ALT 7 L Alkaline Phosphatase 78 Total Protein 4.8 L Albumin 1.3 L U Random Total Protein 63 H Ur Random Sodium Urine Creatinine 118.0 12/13/17 05:18 WBC 50.5 H* RBC 3.19 L Hgb 9.1 L Hct 27.8 L MCV 87.3 MCH 28.5 MCHC 32.7 RDW 17.2 H Plt Count 313 MPV 8.5 Total Counted Neutrophils % (Manual) Band Neutrophils % Lymphocytes % (Manual) Monocytes % (Manual) Myelocytes % (Man) Metamyelocytes Platelet Estimate Puncture Site ABG pH ABG pCO2 at Pt Temp ABG pO2 at Pt Temp ABG HCO3 ABG O2 Sat (Measured) ABG O2 Content ABG Base Excess Amando Test O2 Delivery Device Oxygen Flow Rate Mechanical Rate PEEP Sodium Potassium Chloride Carbon Dioxide Anion Gap BUN Creatinine Creat Clearance w eGFR Random Glucose Lactic Acid Calcium Total Bilirubin AST ALT Alkaline Phosphatase Total Protein Albumin U Random Total Protein Ur Random Sodium Urine Creatinine Active Medications Generic Name Dose Route Start Last Admin Trade Name Freq PRN Reason Stop Dose Admin Chlorhexidine Gluconate 1 applic 12/12/17 22:00 12/12/17 21:11 Hibiclens For Decolonization - TP 1 applic HS CLEMENTE Administration Heparin Sodium (Porcine) 5,000 unit 12/12/17 06:00 12/13/17 06:23 Heparin - SQ 5,000 unit TID CLEMENTE Administration Norepinephrine Bitartrate 4, 500 mls @ 15 mls/hr 12/12/17 03:15 12/13/17 06: 22 000 mcg/ Dextrose IV Not Given TITR CLEMENTE Protocol 2 MCG/MIN Metronidazole 500 mg in 100 mls @ 100 mls/hr 12/12/17 11:00 12/13/17 01:34 Flagyl 500mg Premixed Ivpb - IVPB 100 mls/hr Q8H-IV [facility]E Administration Phenylephrine HCl 20,000 mcg/ 250 mls @ 75 mls/hr 12/12/17 06:45 12/12/17 19: 15 Sodium Chloride IVPB 150 mcg/min TITR CLEMENTE 112.5 mls/hr Protocol Titration 100 MCG/MIN Potassium Chloride/Sodium Chloride 20 meq in 1,000 mls @ 75 mls/hr 12/12/17 17 :30 12/12/17 18:19 Ns+20 Meq Kcl - IV 75 mls/hr ASDIR [facility]E Administration Mupirocin 1 applic 12/12/17 10:00 12/12/17 21:10 Bactroban Ointment (For Decolonization) - NS 12/17/17 09:59 1 applic BID CLEMENTE Administration Pantoprazole Sodium 40 mg 12/12/17 11:30 12/12/17 12:30 Protonix Iv IVPUSH 40 mg DAILY CLEMENTE Administration Vancomycin HCl 500 mg 12/12/17 06:00 12/13/17 06:23 Vancomycin Oral Solution GT 500 mg Q6HPO [facility]E Administration ASSESSMENT/PLAN: Patient is a 67 year old female with a PMH of CVA (residual R sided weakness), dementia, PEG tube, HLD, epilepsy who presented to ED on 12/11 from assisted living facility for hypotension and hypoxia. Patient recently tested positive for C. Diff (12/09) on Flagyll. 1. SEPSIS 2/2 to MODS vs. C. Difficile Colitis - Febrile (102.3) and hypotensive 71/44 @ presentation on 12/11 - Leukocytosis 50 today (12/12) <-- 40 <-- 35 - Currently afebrile - BP overnight 90's-100's/40's-70's; CVP 5 - Lactic Acidosis resolving 10.9 -> 7.2 - Will continue pressors with close BP monitoring, goal CVP 10-12 -- plan to wean of phenylepinephrine then NE - Continue Vancomycin, Flagyll; consider adding Zoysn for empiric coverage for UTI as patient's Cr 1.3 today (12/13) 2. CARDIAC - Hypotension improving w/ SBP 90's-100's - CVP 5; - Continue pressors and fluid resuscitation with plan of weaning off Phenylepinephrine 3. PULMONARY - SpO2 98% on 4 L NC; tachypneic - CXR shows R sided atelectasis, c/w with previous CXR -- slightly worsened atelectasis 4. GI - Fulminant C. Diff Colitis - CT Abdomen/Pelvis shows diffuse colonic thickening, partial illeus, complex cystic mass in urethra - Stool cultures pending - Continue Flagyll; close monitoring for toxic megacolon 5. RENAL - NICOLÁS resolving, Cr 1.3/BUN 20 today (12/13) <--Cr. 2.0 <-- 2.8, likely pre- renal 2/2 to hypovolemia 2/2 to C Diff colitis diarrhea - Renal/Bladder U/S unremarkable - Will recheck BMP pending fluids 6. - UA shows 2+ Leukocyte Esterase, 71 WBC - Patient's renal function improving, consider re-starting Zosyn for empiric coverage, ID following appreciate recs 6. NORMOCYTIC ANEMIA - 2/2 to Colitis vs. Chronic Disease vs CRYSTAL - Hb stable @ 9.1 today (12/13) <-- 9.1 < -- 8.8, no previous Hb in system - FOBT pending 7. NEUROLOGIC - Patient alert, responsive to verbal and tactile stimuli, tracks with eyes; @ baseline - Continue to monitor FEN - Electrolyte monitoring and replacement as indicated above - J-tube feeding once stable PROPHYLAXIS Heparin SQ SCDs FULL CODE Visit type - Emergency Visit Emergency Visit: No - New Patient This patient is new to me today: No - Critical Care Critical Care patient: No
[2017-12-13 07:45] LABS: ANION GAP 11 (8-16); BLOOD UREA NITROGEN 22 mg/dL (7-18); CHLORIDE 111 mmol/L (98-107); CO2 19 mmol/L (21-32); CREATININE 0.9 mg/dL (0.55-1.02); GLUCOSE,RANDOM 185 mg/dL (74-106); POTASSIUM 3.5 mmol/L (3.5-5.1); SODIUM 141 mmol/L (136-145)
[2017-12-13] MEDS ORDERED: PT OWN MED DRAWER 7, Y5N ONE (08:06)
[2017-12-13] MEDS ORDERED: NOREPINEPHRINE BITARTRATE 4 MG/4 ML ML IV ONE ×2 (08:09→20:47)
--- NOTE | 2017-12-13 09:06 | PN ---
Progress Note (short form) - Note Progress Note: Pt seen/ examined in icu Chart reviewed. drowsy but arousable follow with eyes hypotensive-- on pressor support. On abx wbc 50 !! Vital Signs Temp 98.9 F 12/13/17 06:00 Pulse 96 H 12/13/17 08:27 Resp 24 12/13/17 06:00 BP 80/65 12/13/17 08:27 Pulse Ox 99 12/12/17 20:00 Intake & Output 12/12/17 12/12/17 12/13/17 11:59 23:59 11:59 Intake Total 5097 4194 Output Total 1975 350 Balance 3122 3844 Weight 159 lb 9.6 oz Intake: IV 5047 4044 20 L AC 12/11 1399 20 R AC 12/11 455 Levophed - 4,000 Mcg In 1320 1800 D5w - 496 ml @ 2 MCG/MIN 15 mls/hr IV TITR CLEMENTE Rx# :[id number] Adis-Synephrine - 20,000 1003 1344 Mcg In Normal Saline - 248 ml @ 100 MCG/MIN 75 mls/hr IVPB TITR CLEMENTE Rx#: [id number] Normal Saline - 1,000 ml 870 900 @ 75 mls/hr IV ASDIR [facility]MENTE Rx#:[id number] IVPB 100 Tube Irrigant 50 50 Output: Drainage 275 fms 275 Urine 1700 350 Handy 1700 350 Other: Voiding Method Indwelling Catheter Indwelling Catheter Bowel Movement Yes Yes Height 5 ft 6 in Body Mass Index (BMI) 25.7 Weight Measurement Method Built in [facility] Active Medications Chlorhexidine Gluconate (Hibiclens For Decolonization -) 1 applic TP HS CLEMENTE Last Admin: 12/12/17 21:11 Dose: 1 applic Heparin Sodium (Porcine) (Heparin -) 5,000 unit SQ TID [facility]MENTE Last Admin: 12/13/17 06:23 Dose: 5,000 unit Norepinephrine Bitartrate 4, (000 mcg/ Dextrose) 500 mls @ 15 mls/hr IV TITR CLEMENTE; 2 MCG/MIN PRN Reason: Protocol Last Admin: 12/13/17 08:27 Dose: 20 mcg/min, 150 mls/hr Metronidazole (Flagyl 500mg Premixed Ivpb -) 500 mg in 100 mls @ 100 mls/hr IVPB Q8H-IV [facility]E Last Admin: 12/13/17 01:34 Dose: 100 mls/hr Phenylephrine HCl 20,000 mcg/ (Sodium Chloride) 250 mls @ 75 mls/hr IVPB TITR CLEMENTE; 100 MCG/MIN PRN Reason: Protocol Last Titration: 12/12/17 19:15 Dose: 150 mcg/min, 112.5 mls/hr Potassium Chloride/Sodium Chloride (Ns+20 Meq Kcl -) 20 meq in 1,000 mls @ 75 mls/hr IV ASDIR [facility] Last Admin: 12/12/17 18:19 Dose: 75 mls/hr Mupirocin (Bactroban Ointment (For Decolonization) -) 1 applic NS BID CLEMENTE Stop: 12/17/17 09:59 Last Admin: 12/12/17 21:10 Dose: 1 applic Pantoprazole Sodium (Protonix Iv) 40 mg IVPUSH DAILY [facility] Last Admin: 12/12/17 12:30 Dose: 40 mg Vancomycin HCl (Vancomycin Oral Solution) 500 mg GT Q6HPO [facility] Last Admin: 12/13/17 06:23 Dose: 500 mg CBC, BMP 12/13/17 05:18 12/13/17 05:18 Abnormal Lab Results 12/12/17 12/12/17 12/12/17 07:54 12:20 15:45 WBC RBC Hgb Hct RDW ABG pCO2 at Pt Temp 27.4 L ABG HCO3 16.2 L ABG O2 Content 10.8 L ABG Base Excess -7.4 L Sodium 148 H Potassium 3.4 L Chloride 116 H Carbon Dioxide 20 L BUN 28 H Creatinine 1.3 H Random Glucose 182 H Lactic Acid 6.6 H* Calcium 7.2 L ALT Total Protein Albumin U Random Total Protein 12/12/17 12/12/17 12/13/17 15:45 20:45 00:00 WBC RBC Hgb Hct RDW ABG pCO2 at Pt Temp ABG HCO3 ABG O2 Content ABG Base Excess Sodium Potassium Chloride 115 H Carbon Dioxide 18 L BUN 24 H Creatinine 1.1 H Random Glucose 207 H Lactic Acid 5.5 H* Calcium 7.1 L ALT 7 L Total Protein 4.8 L Albumin 1.3 L U Random Total Protein 63 H 12/13/17 12/13/17 05:18 05:18 WBC 50.5 H* RBC 3.19 L Hgb 9.1 L Hct 27.8 L RDW 17.2 H ABG pCO2 at Pt Temp ABG HCO3 ABG O2 Content ABG Base Excess Sodium Potassium Chloride 111 H Carbon Dioxide 19 L BUN 22 H Creatinine Random Glucose 185 H Lactic Acid Calcium 7.0 L ALT Total Protein Albumin U Random Total Protein ct abd/ pelvis -- Pancolitis. us/ - kidneys - ok Physical Exam. Drowsy / Arousable Heent - CCentral line + lungs- diminished at bases cvs- s1, s2 rrr Abd- soft/ slightly distended. G tube + ext- no edema rectal tube A/p Fulminant c diff colitis Continue present care Abx Pressor support C diff precautions in place. Condition critical Will follow Discussed also with Nursing staf Cc time 35 min Problem List - Problems (1) Clostridium difficile diarrhea Code(s): A04.72 - ENTEROCOLITIS D/T CLOSTRIDIUM DIFFICILE, NOT SPCF RECUR (2) Functional quadriplegia Code(s): R53.2 - FUNCTIONAL QUADRIPLEGIA (3) Hx TIA/stroke w/o resid Code(s): Z86.73 - PRSNL HX OF TIA (TIA), AND CEREB INFRC W/O RESID DEFICITS (4) Severe sepsis Code(s): A41.9 - SEPSIS, UNSPECIFIED ORGANISM; R65.20 - SEVERE SEPSIS WITHOUT SEPTIC SHOCK
[2017-12-13] MEDS ORDERED: PHENYLEPHRINE HCL 10 MG/1 ML SINGLE DOSE VIAL ONE ×2 (09:20→20:49)
[2017-12-13] MEDS: PHENYLEPHRINE HCL 20,000 MCG in SODIUM CHLORIDE 248 ML IVPB SCH (09:23)
[2017-12-13] MEDS: MUPIROCIN 2% TOPICAL OINTMENT FOR DECOLONIZATION NS SCH ×2 (10:24→21:55)
[2017-12-13] MEDS: SODIUM CHLORIDE 0.9%/KCL 20 MEQ/1,000 ML INFUS.BAG IV SCH (10:24)
[2017-12-13] MEDS: PANTOPRAZOLE SODIUM 40 MG VIAL IVPUSH SCH (10:25)
[2017-12-13] MEDS ORDERED: SODIUM CHLORIDE 0.9% 500 ML INFUS.BAG IV ONE (11:37)
--- NOTE | 2017-12-13 11:54 | PN ---
Teaching Attending Note Name of Resident: Candy Pina ATTENDING PHYSICIAN STATEMENT I saw and evaluated the patient. I reviewed the resident's note and discussed the case with the resident. I agree with the resident's findings and plan as documented. SUBJECTIVE: Pt seen and examined in the ICU. Remains lethargic on levophed and phenylephrine gtts. CVP 3 this AM. OBJECTIVE: Last Vital Signs Temp Pulse Resp BP Pulse Ox 98.7 F 103 H 32 H 115/72 99 12/13/17 10:00 12/13/17 10:00 12/13/17 10:00 12/13/17 10:00 12/13/17 09:14 Intake & Output 12/10/17 12/11/17 12/12/17 12/13/17 23:59 23:59 23:59 23:59 Intake Total 5097 4194 Output Total 200 1975 350 Balance -200 3122 3844 Weight 68.492 kg 72.393 kg Gen: lethargic but arousable Heart: tachycardic, regular Lung: scattered rhonchi Abd: softly distended, more tympanic Ext: + edema CBC, BMP 12/13/17 05:18 12/13/17 05:18 Active Medications Chlorhexidine Gluconate (Hibiclens For Decolonization -) 1 applic TP HS CLEMENTE Last Admin: 12/12/17 21:11 Dose: 1 applic Heparin Sodium (Porcine) (Heparin -) 5,000 unit SQ TID CLEMENTE Last Admin: 12/13/17 06:23 Dose: 5,000 unit Norepinephrine Bitartrate 4, (000 mcg/ Dextrose) 500 mls @ 15 mls/hr IV TITR CLEMENTE; 2 MCG/MIN PRN Reason: Protocol Last Admin: 12/13/17 08:27 Dose: 20 mcg/min, 150 mls/hr Metronidazole (Flagyl 500mg Premixed Ivpb -) 500 mg in 100 mls @ 100 mls/hr IVPB Q8H-IV [facility] Last Admin: 12/13/17 10:25 Dose: 100 mls/hr Phenylephrine HCl 20,000 mcg/ (Sodium Chloride) 250 mls @ 75 mls/hr IVPB TITR CLEMENTE; 100 MCG/MIN PRN Reason: Protocol Last Admin: 12/13/17 09:23 Dose: 150 mcg/min, 112.5 mls/hr Potassium Chloride/Sodium Chloride (Ns+20 Meq Kcl -) 20 meq in 1,000 mls @ 100 mls/hr IV ASDIR [facility] Last Admin: 12/13/17 10:24 Dose: 100 mls/hr Mupirocin (Bactroban Ointment (For Decolonization) -) 1 applic NS BID [facility] Stop: 12/17/17 09:59 Last Admin: 12/13/17 10:24 Dose: 1 applic Pantoprazole Sodium (Protonix Iv) 40 mg IVPUSH DAILY [facility] Last Admin: 12/13/17 10:25 Dose: 40 mg Vancomycin HCl (Vancomycin Oral Solution) 500 mg GT Q6HPO [facility] Last Admin: 12/13/17 06:23 Dose: 500 mg ASSESSMENT AND PLAN: C Diff Colitis UTI Septic Shock Acute Kidney Injury Lactic Acidosis h/o CVA Dementia - continue antibiotics per ID - f/u cultures - d/w ID possible UTI coverage - IVF bolus resuscitation to CVP 8-12 - titrate pressors to maintain MAP >65 - monitor urine output, creatinine - aspiration precautions - O2 to keep SpO2 >90% - f/u echocardiogram - NPO - DVT/GI prophylaxis - prognosis guarded - continue ICU monitoring critical care time spent in reviewing chart, evaluating patient and formulating plan 35 min
[2017-12-13 12:55] LABS: MAGNESIUM 1.8 mg/dL (1.8-2.4); PHOSPHOROUS 2.2 mg/dL (2.5-4.9)
--- NOTE | 2017-12-13 13:48 | PN ---
Progress Note, Physician History of Present Illness: still lethargic on pressors wbc still on very high side - Current Medication List Current Medications: Active Medications Albuterol Sulfate (Ventolin 0.083% Nebulizer Soln -) 1 amp NEB Q4H PRN PRN Reason: SHORT OF BREATH/WHEEZING Chlorhexidine Gluconate (Hibiclens For Decolonization -) 1 applic TP HS [facility] Last Admin: 12/12/17 21:11 Dose: 1 applic Heparin Sodium (Porcine) (Heparin -) 5,000 unit SQ TID [facility] Last Admin: 12/13/17 06:23 Dose: 5,000 unit Norepinephrine Bitartrate 4, (000 mcg/ Dextrose) 500 mls @ 15 mls/hr IV TITR CLEMENTE; 2 MCG/MIN PRN Reason: Protocol Last Admin: 12/13/17 08:27 Dose: 20 mcg/min, 150 mls/hr Metronidazole (Flagyl 500mg Premixed Ivpb -) 500 mg in 100 mls @ 100 mls/hr IVPB Q8H-IV [facility] Last Admin: 12/13/17 10:25 Dose: 100 mls/hr Phenylephrine HCl 20,000 mcg/ (Sodium Chloride) 250 mls @ 75 mls/hr IVPB TITR CLEMENTE; 100 MCG/MIN PRN Reason: Protocol Last Admin: 12/13/17 09:23 Dose: 150 mcg/min, 112.5 mls/hr Potassium Chloride/Sodium Chloride (Ns+20 Meq Kcl -) 20 meq in 1,000 mls @ 100 mls/hr IV ASDIR [facility] Last Admin: 12/13/17 10:24 Dose: 100 mls/hr Mupirocin (Bactroban Ointment (For Decolonization) -) 1 applic NS BID [facility] Stop: 12/17/17 09:59 Last Admin: 12/13/17 10:24 Dose: 1 applic Pantoprazole Sodium (Protonix Iv) 40 mg IVPUSH DAILY [facility] Last Admin: 12/13/17 10:25 Dose: 40 mg Vancomycin HCl (Vancomycin Oral Solution) 500 mg GT Q6HPO [facility] Last Admin: 12/13/17 11:55 Dose: 500 mg - Objective Vital Signs: Vital Signs Temperature 98.7 F 12/13/17 10:00 Pulse Rate 103 H 12/13/17 12:00 Respiratory Rate 22 05/15/18 12:00 Blood Pressure 115/72 05/15/18 12:00 O2 Sat by Pulse Oximetry (%) 99 12/13/17 09:14 Constitutional: Yes: No Distress, Calm HENT: Yes: Atraumatic, Normocephalic Cardiovascular: Yes: Regular Rate and Rhythm Respiratory: Yes: Regular, CTA Bilaterally, On Nasal O2 Gastrointestinal: Yes: Normal Bowel Sounds, Soft Musculoskeletal: Yes: WNL Extremities: Yes: WNL Neurological: Yes: Other Psychiatric: Yes: Other Labs: CBC, BMP 12/13/17 05:18 12/13/17 05:18 INR, PTT INR 1.37 (0.82-1.09) H 12/11/17 22:30 Assessment/Plan after looking at the patients ct scan and the patient i have strong suspicion that this could be very well due to cdiff although patient is septic and has a very worrisome picture Problem List - Problem (1) MODS (multiple organ dysfunction syndrome) Code(s): [id number] - (2) Severe sepsis Code(s): A41.9 - SEPSIS, UNSPECIFIED ORGANISM; R65.20 - SEVERE SEPSIS WITHOUT SEPTIC SHOCK (3) Clostridium difficile diarrhea Code(s): A04.72 - ENTEROCOLITIS D/T CLOSTRIDIUM DIFFICILE, NOT SPCF RECUR (4) Hypernatremia Code(s): E87.0 - HYPEROSMOLALITY AND HYPERNATREMIA (5) Chronic respiratory failure Code(s): J96.10 - CHRONIC RESPIRATORY FAILURE, UNSP W HYPOXIA OR HYPERCAPNIA (6) Seizures Code(s): R56.9 - UNSPECIFIED CONVULSIONS (7) Bladder mass Code(s): N32.89 - OTHER SPECIFIED DISORDERS OF BLADDER (8) MDD (major depressive disorder) Code(s): F32.9 - MAJOR DEPRESSIVE DISORDER, SINGLE EPISODE, UNSPECIFIED (9) Hx TIA/stroke w/o resid Code(s): Z86.73 - PRSNL HX OF TIA (TIA), AND CEREB INFRC W/O RESID DEFICITS (10) HTN (hypertension) Code(s): I10 - ESSENTIAL (PRIMARY) HYPERTENSION (11) HLD (hyperlipidemia) Code(s): E78.5 - HYPERLIPIDEMIA, UNSPECIFIED (12) Functional quadriplegia Code(s): R53.2 - FUNCTIONAL QUADRIPLEGIA (13) Prolonged QT interval Code(s): R94.31 - ABNORMAL ELECTROCARDIOGRAM [ECG] [EKG] (14) Anemia Code(s): D64.9 - ANEMIA, UNSPECIFIED Qualifiers: Anemia type: unspecified type Qualified Code(s): D64.9 - Anemia, unspecified plan continue current mgmt await for all cx might have to add another abx hydration rest continue as per icu pressors cc time 40 min
--- NOTE | 2017-12-13 15:15 | PN ---
Progress Note (short form) - Note Progress Note: Renal follow up for NICOLÁS Pt seen and examined at the bedside pt sleeping making urine on Levophed, phenylephrine and IVF no fevers overnight Vital Signs Temperature 98.7 F 12/13/17 10:00 Pulse Rate 103 H 12/13/17 12:00 Respiratory Rate 22 12/13/17 12:00 Blood Pressure 115/72 12/13/17 12:00 O2 Sat by Pulse Oximetry (%) 99 12/13/17 09:14 Intake & Output 12/10/17 12/11/17 12/12/17 12/13/17 23:59 23:59 23:59 23:59 Intake Total 5097 4194 Output Total 200 1975 350 Balance -200 3122 3844 Weight 68.492 kg 72.393 kg NAD, sleeping tachycardic, no murmur Dec BS distended abd no LE edema CBC, BMP 12/13/17 05:18 12/13/17 05:18 Current Medications Albuterol Sulfate (Ventolin 0.083% Nebulizer Soln -) 1 amp NEB Q4H PRN PRN Reason: SHORT OF BREATH/WHEEZING Chlorhexidine Gluconate (Hibiclens For Decolonization -) 1 applic TP HS [facility] Last Admin: 12/12/17 21:11 Dose: 1 applic Heparin Sodium (Porcine) (Heparin -) 5,000 unit SQ TID [facility] Last Admin: 12/13/17 06:23 Dose: 5,000 unit Norepinephrine Bitartrate 4, (000 mcg/ Dextrose) 500 mls @ 15 mls/hr IV TITR CLEMENTE; 2 MCG/MIN PRN Reason: Protocol Last Admin: 12/13/17 08:27 Dose: 20 mcg/min, 150 mls/hr Metronidazole (Flagyl 500mg Premixed Ivpb -) 500 mg in 100 mls @ 100 mls/hr IVPB Q8H-IV [facility] Last Admin: 12/13/17 10:25 Dose: 100 mls/hr Phenylephrine HCl 20,000 mcg/ (Sodium Chloride) 250 mls @ 75 mls/hr IVPB TITR CLEMENTE; 100 MCG/MIN PRN Reason: Protocol Last Admin: 12/13/17 09:23 Dose: 150 mcg/min, 112.5 mls/hr Potassium Chloride/Sodium Chloride (Ns+20 Meq Kcl -) 20 meq in 1,000 mls @ 100 mls/hr IV ASDIR [facility] Last Admin: 12/13/17 10:24 Dose: 100 mls/hr Levetiracetam (Keppra Oral Solution -) 500 mg GT BID [facility] Mupirocin (Bactroban Ointment (For Decolonization) -) 1 applic NS BID [facility] Stop: 12/17/17 09:59 Last Admin: 12/13/17 10:24 Dose: 1 applic Pantoprazole Sodium (Protonix Iv) 40 mg IVPUSH DAILY [facility] Last Admin: 12/13/17 10:25 Dose: 40 mg Vancomycin HCl (Vancomycin Oral Solution) 500 mg GT Q6HPO [facility] Last Admin: 12/13/17 11:55 Dose: 500 mg 67 year old woman with PMhx of CVS, Dementia, PEG with recent Cdiff admission who presented with hypotension and found to have acute sepsis with NICOLÁS #Acute Kidney Injury secondary to renal hypoprofusion +/- ATN in setting of Sepsis #Lactic acidosis #Colitis/C-diff #Sepsis with hypotension #Anemia #Hypokalemia #Hypernatremia renal function improving toward baseline continue vasopressers and IVF will maintain on isotonic saline despite hypernatremia as pt remains hypovolemic at the present time keep MAP > 65, CVP 8-10 give IV K -phos x 1 trend BMP, Mg, Phos Q12h continue Abx as per ID Constantino Clemons DO
[2017-12-13] MEDS ORDERED: POTASSIUM PHOSPHATE 15 MM in DEXTROSE 5%-WATER - 250 ML IVPB ONE (15:30)
--- NOTE | 2017-12-13 20:12 | PN ---
Progress Note, Physician History of Present Illness: Clinically the same. Remains on 2 vasopressors. Abdomen distended, but soft. Continues to have diarrhea - Current Medication List Current Medications: Active Medications Albuterol Sulfate (Ventolin 0.083% Nebulizer Soln -) 1 amp NEB Q4H PRN PRN Reason: SHORT OF BREATH/WHEEZING Chlorhexidine Gluconate (Hibiclens For Decolonization -) 1 applic TP HS [facility] Last Admin: 12/12/17 21:11 Dose: 1 applic Heparin Sodium (Porcine) (Heparin -) 5,000 unit SQ TID [facility] Last Admin: 12/13/17 15:47 Dose: 5,000 unit Norepinephrine Bitartrate 4, (000 mcg/ Dextrose) 500 mls @ 15 mls/hr IV TITR [facility]; 2 MCG/MIN PRN Reason: Protocol Last Admin: 12/13/17 08:27 Dose: 20 mcg/min, 150 mls/hr Metronidazole (Flagyl 500mg Premixed Ivpb -) 500 mg in 100 mls @ 100 mls/hr IVPB Q8H-IV [facility] Last Admin: 12/13/17 17:00 Dose: 100 mls/hr Phenylephrine HCl 20,000 mcg/ (Sodium Chloride) 250 mls @ 75 mls/hr IVPB TITR [facility]; 100 MCG/MIN PRN Reason: Protocol Last Titration: 12/13/17 12:00 Dose: 120 mcg/min, 90 mls/hr Potassium Chloride/Sodium Chloride (Ns+20 Meq Kcl -) 20 meq in 1,000 mls @ 100 mls/hr IV ASDIR [facility] Last Admin: 12/13/17 10:24 Dose: 100 mls/hr Levetiracetam (Keppra Oral Solution -) 500 mg GT BID [facility] Mupirocin (Bactroban Ointment (For Decolonization) -) 1 applic NS BID [facility] Stop: 12/17/17 09:59 Last Admin: 12/13/17 10:24 Dose: 1 applic Pantoprazole Sodium (Protonix Iv) 40 mg IVPUSH DAILY [facility] Last Admin: 12/13/17 10:25 Dose: 40 mg Vancomycin HCl (Vancomycin Oral Solution) 500 mg GT Q6HPO [facility] Last Admin: 12/13/17 17:01 Dose: 500 mg - Objective Vital Signs: Vital Signs Temperature 98.4 F 12/13/17 14:00 Pulse Rate 112 H 12/13/17 20:00 Respiratory Rate 34 H 12/13/17 20:00 Blood Pressure 108/54 12/13/17 20:00 O2 Sat by Pulse Oximetry (%) 99 12/13/17 19:00 Constitutional: Yes: Calm HENT: Yes: Normocephalic Gastrointestinal: Yes: Soft, Distention Neurological: Yes: Confusion, Lethargy Labs: CBC, BMP 12/13/17 05:18 12/13/17 05:18 INR, PTT INR 1.37 (0.82-1.09) H 12/11/17 22:30 Laboratory Last Values WBC 50.5 K/mm3 (4.0-10.0) H* 12/13/17 05:18 RBC 3.19 M/mm3 (3.60-5.2) L 12/13/17 05:18 Hgb 9.1 GM/dL (10.7-15.3) L 12/13/17 05:18 Hct 27.8 % (32.4-45.2) L 12/13/17 05:18 MCV 87.3 fl (80-96) 12/13/17 05:18 MCH 28.5 pg (25.7-33.7) 12/13/17 05:18 MCHC 32.7 g/dl (32.0-36.0) 12/13/17 05:18 RDW 17.2 % (11.6-15.6) H 12/13/17 05:18 Plt Count 313 K/MM3 (134-434) 12/13/17 05:18 MPV 8.5 fl (7.5-11.1) 12/13/17 05:18 Total Counted 100 12/12/17 03:45 Neutrophils % No Result Required. 12/12/17 03:45 Neutrophils % (Manual) No Result Required. 12/13/17 05:18 Band Neutrophils % 8.0 % (0-10) 12/12/17 03:45 Lymphocytes % No Result Required. 12/12/17 03:45 Lymphocytes % (Manual) 8.0 % (8-40) 12/12/17 03:45 Monocytes % (Manual) 2 % (3.8-10.2) L 12/12/17 03:45 Basophils % (Manual) 1.0 % (0-2.0) 12/11/17 22:30 Myelocytes % (Man) 3 % (0-2) H 12/12/17 03:45 Nucleated RBC % 1 % (0-0) H 12/11/17 22:30 Metamyelocytes 2 % (0-2) 12/12/17 03:45 Differential Comment Man diff performed 12/11/17 22:30 Platelet Estimate Adequate 12/12/17 03:45 Platelet Comment Giant platelets 12/11/17 22:30 Polychromasia 1+ 12/11/17 22:30 Anisocytosis 1+ 12/11/17 22:30 Macrocytosis 1+ 12/11/17 22:30 PT with INR 15.50 SEC (9.7-13.0) H 12/11/17 22:30 INR 1.37 (0.82-1.09) H 12/11/17 22:30 PTT (Actin FS) 23.2 SECONDS (26.9-34.4) L 12/11/17 22:30 Anticoagulation Therapy No Result Required. 12/11/17 23:15 Puncture Site Right radial 12/12/17 12:20 ABG pH 7.39 (7.35-7.45) 12/12/17 12:20 ABG pCO2 at Pt Temp 27.4 mmHg (35-45) L 12/12/17 12:20 ABG pO2 at Pt Temp 89.1 mmHg (80-100) 12/12/17 12:20 ABG HCO3 16.2 meq/L (22-26) L 12/12/17 12:20 ABG O2 Sat (Measured) 96.5 % (90-98.9) 12/12/17 12:20 ABG O2 Content 10.8 % vol (15-22) L 12/12/17 12:20 ABG Base Excess -7.4 meq/l (-2-2) L 12/12/17 12:20 Amando Test Positive 12/12/17 12:20 Carboxyhemoglobin 1.6 gm% (0.5-2.0) 12/11/17 23:15 Methemoglobin 1.5 % (0.4-1.5) 12/11/17 23:15 O2 Delivery Device Nasal cannula 12/12/17 12:20 Oxygen Flow Rate 3l 12/12/17 12:20 Vent Mode No Result Required. 12/11/17 23:15 Vent Rate No Result Required. 12/11/17 23:15 Mechanical Rate No 12/12/17 12:20 PEEP 0.0 cmH2O 12/12/17 12:20 Pressure Support Vent No Result Required. 12/11/17 23:15 Sodium 141 mmol/L (136-145) 12/13/17 05:18 Potassium 3.5 mmol/L (3.5-5.1) 12/13/17 05:18 Chloride 111 mmol/L (98-107) H 12/13/17 05:18 Carbon Dioxide 19 mmol/L (21-32) L 12/13/17 05:18 Anion Gap 11 (8-16) 12/13/17 05:18 BUN 22 mg/dL (7-18) H 12/13/17 05:18 Creatinine 0.9 mg/dL (0.55-1.02) 12/13/17 05:18 Creat Clearance w eGFR 49.85 (>60) 12/13/17 00:00 Random Glucose 185 mg/dL (74-106) H 12/13/17 05:18 Lactic Acid 5.5 mmol/L (0.0-2.0) H* 12/12/17 15:45 Calcium 7.0 mg/dL (8.5-10.1) L 12/13/17 05:18 Phosphorus Cancelled 12/13/17 12:20 Magnesium Cancelled 12/13/17 12:20 Total Bilirubin 0.2 mg/dL (0.2-1.0) D 12/13/17 00:00 AST 20 U/L (15-37) 12/13/17 00:00 ALT 7 U/L (12-78) L 12/13/17 00:00 Alkaline Phosphatase 78 U/L (45-117) 12/13/17 00:00 Total Protein 4.8 g/dl (6.4-8.2) L 12/13/17 00:00 Albumin 1.3 g/dl (3.4-5.0) L 12/13/17 00:00 Urine Color Radha 12/11/17 23:50 Urine Appearance Cloudy 12/11/17 23:50 Urine pH 5.0 (5.0-8.0) 12/11/17 23:50 Ur Specific [place] 1.026 (1.001-1.035) 12/11/17 23:50 Urine Protein 1+ (NEGATIVE) H 12/11/17 23:50 Urine Glucose (UA) Negative (NEGATIVE) 12/11/17 23:50 Urine Ketones Negative (NEGATIVE) 12/11/17 23:50 Urine Blood Negative (NEGATIVE) 12/11/17 23:50 Urine Nitrite Negative (NEGATIVE) 12/11/17 23:50 Urine Bilirubin Negative (<2.0 mg/dL) 12/11/17 23:50 Urine Urobilinogen 2.0 mg/dL (0.2-1.0) H 12/11/17 23:50 Ur Leukocyte Esterase 2+ (NEGATIVE) H 12/11/17 23:50 Urine WBC (Auto) 71 /hpf (3-5) 12/11/17 23:50 Urine RBC (Auto) 3 /hpf (0-3) 12/11/17 23:50 Ur Epithelial Cells Rare /HPF (FEW) 12/11/17 23:50 Hyaline Casts 11 /lpf 12/11/17 23:50 Urine Mucus Rare 12/11/17 23:50 U Random Total Protein 63 mg/dl (5-11.9) H 12/12/17 20:45 Ur Random Sodium 7 MMOL/L 12/12/17 20:45 Urine Creatinine 118.0 mg/dL (20-320) 12/12/17 20:45 Stool Occult Blood Negative (NEGATIVE) 12/12/17 04:30 Blood Type A POSITIVE 12/12/17 04:10 Antibody Screen Negative 12/12/17 04:10 Problem List - Problems (1) Colitis Code(s): K52.9 - NONINFECTIVE GASTROENTERITIS AND COLITIS, UNSPECIFIED (2) Colitis presumed infectious Code(s): K52.9 - NONINFECTIVE GASTROENTERITIS AND COLITIS, UNSPECIFIED (3) Clostridium difficile diarrhea Code(s): A04.72 - ENTEROCOLITIS D/T CLOSTRIDIUM DIFFICILE, NOT SPCF RECUR Assessment/Plan Clinically the same. Possibly fulminant c.diff associated pancolitis, poor renal function and low albumin requiring resuscitation with fluids and vasopressors. No signs of ileus,or megacolon. Agree with IV/G-tube vanco and IV flagyl, ICU monitoring, Prognosis very poor.
[2017-12-13] MEDS: CHLORHEXIDINE GLUCONATE 4% CLEANSER FOR DECOLONIZATION TP SCH (21:55)
[2017-12-13] MEDS: levETIRAcetam 500 MG/5 ML ORAL SOLUTION (UNIT-DOSE CUPS) GT SCH (21:55)
[2017-12-14 00:03] LABS: CALCIUM 7.1 mg/dL (8.5-10.1); CO2 18 mmol/L (21-32); CREATININE 0.7 mg/dL (0.55-1.02); GLUCOSE,RANDOM 213 mg/dL (74-106); MAGNESIUM 1.7 mg/dL (1.8-2.4); PHOSPHOROUS 2.2 mg/dL (2.5-4.9)
[2017-12-14 00:05] LABS: ANION GAP 11 (8-16); BLOOD UREA NITROGEN 13 mg/dL (7-18); CHLORIDE 111 mmol/L (98-107); POTASSIUM 4.1 mmol/L (3.5-5.1); SODIUM 140 mmol/L (136-145)
[2017-12-14 06:07] LABS: HEMATOCRIT 27.1 % (32.4-45.2); HEMOGLOBIN 8.7 GM/dL (10.7-15.3); MCH 28.5 pg (25.7-33.7); MCHC 32.3 g/dl (32.0-36.0); MEAN CELL VOLUME 88.2 fl (80-96); MEAN PLT VOLUME 8.5 fl (7.5-11.1); PLATELET COUNT 272 K/MM3 (134-434); RBC 3.07 M/mm3 (3.60-5.2); RDW 17.3 % (11.6-15.6)
[2017-12-14] MEDS: HEPARIN NA (PORCINE) 5,000 UNITS/ML 1ML VIAL SQ SCH ×3 (06:20→21:26)
[2017-12-14] MEDS: VANCOMYCIN 250 MG/5 ML ORAL SOLUTION GT SCH ×4 (06:20→17:00)
[2017-12-14] MEDS: PHENYLEPHRINE HCL 20,000 MCG in SODIUM CHLORIDE 248 ML IVPB SCH (06:20)
[2017-12-14] MEDS: NOREPINEPHRINE BITARTRATE 4,000 MCG in DEXTROSE 5%-WATER - 496 ML IV SCH ×2 (06:20→09:22)
[2017-12-14 06:35] LABS: WHITE BLOOD COUNT 46.2 K/mm3 (4.0-10.0)
[2017-12-14 06:48] LABS: CHLORIDE 113 mmol/L (98-107); POTASSIUM 4.1 mmol/L (3.5-5.1); SODIUM 141 mmol/L (136-145)
[2017-12-14 06:54] LABS: ALBUMIN 1.2 g/dl (3.4-5.0); ALK PHOS 80 U/L (45-117); ANION GAP 9 (8-16); BILIRUBIN,TOTAL 0.2 mg/dL (0.2-1.0); BLOOD UREA NITROGEN 11 mg/dL (7-18); CO2 19 mmol/L (21-32); CREATININE 0.7 mg/dL (0.55-1.02); GLUCOSE,RANDOM 174 mg/dL (74-106); MAGNESIUM 1.6 mg/dL (1.8-2.4); SGOT/AST 19 U/L (15-37); SGPT/ALT < 6 U/L (12-78); TOT PROT 4.5 g/dl (6.4-8.2)
[2017-12-14] MEDS: ALBUTEROL SO4 0.083% IH SOL 2.5 MG/3 ML VIAL.NEB. NEB PRN ×2 (07:39→10:35)
[2017-12-14] MEDS ORDERED: PT OWN MED DRAWER 7, Y5N ONE (09:06)
--- NOTE | 2017-12-14 09:18 | PN ---
Progress Note, Physician History of Present Illness: Clinically the same. Remains on 2 vasopressors. Abdomen distended, firm. - Current Medication List Current Medications: Active Medications Albuterol Sulfate (Ventolin 0.083% Nebulizer Soln -) 1 amp NEB Q4H PRN PRN Reason: SHORT OF BREATH/WHEEZING Last Admin: 12/14/17 07:39 Dose: 1 amp Chlorhexidine Gluconate (Hibiclens For Decolonization -) 1 applic TP HS [facility] Last Admin: 12/13/17 21:55 Dose: 1 applic Heparin Sodium (Porcine) (Heparin -) 5,000 unit SQ TID [facility] Last Admin: 12/14/17 06:20 Dose: 5,000 unit Norepinephrine Bitartrate 4, (000 mcg/ Dextrose) 500 mls @ 15 mls/hr IV TITR [facility]; 2 MCG/MIN PRN Reason: Protocol Last Titration: 12/14/17 06:22 Dose: 15 mcg/min, 112.5 mls/hr Metronidazole (Flagyl 500mg Premixed Ivpb -) 500 mg in 100 mls @ 100 mls/hr IVPB Q8H-IV [facility] Last Admin: 12/14/17 02:19 Dose: 100 mls/hr Phenylephrine HCl 20,000 mcg/ (Sodium Chloride) 250 mls @ 75 mls/hr IVPB TITR [facility]; 100 MCG/MIN PRN Reason: Protocol Last Admin: 12/14/17 06:20 Dose: 100 mcg/min, 75 mls/hr Potassium Chloride/Sodium Chloride (Ns+20 Meq Kcl -) 20 meq in 1,000 mls @ 100 mls/hr IV ASDIR [facility] Last Admin: 12/13/17 10:24 Dose: 100 mls/hr Levetiracetam (Keppra Oral Solution -) 500 mg GT BID [facility] Last Admin: 12/13/17 21:55 Dose: 500 mg Mupirocin (Bactroban Ointment (For Decolonization) -) 1 applic NS BID [facility] Stop: 12/17/17 09:59 Last Admin: 12/13/17 21:55 Dose: 1 applic Pantoprazole Sodium (Protonix Iv) 40 mg IVPUSH DAILY [facility] Last Admin: 12/13/17 10:25 Dose: 40 mg Vancomycin HCl (Vancomycin Oral Solution) 500 mg GT Q6HPO [facility] Last Admin: 12/14/17 06:20 Dose: 500 mg - Objective Vital Signs: Vital Signs Temperature 98.9 F 12/14/17 06:00 Pulse Rate 106 H 12/14/17 08:00 Respiratory Rate 33 H 12/14/17 08:00 Blood Pressure 117/74 12/14/17 08:00 O2 Sat by Pulse Oximetry (%) 99 12/14/17 08:16 Constitutional: Yes: No Distress Gastrointestinal: Yes: Distention. No: Melena, Rectal Bleeding, Vomiting Labs: CBC, BMP 12/14/17 05:55 12/14/17 05:55 INR, PTT INR 1.37 (0.82-1.09) H 12/11/17 22:30 Laboratory Last Values WBC 46.2 K/mm3 (4.0-10.0) H* 12/14/17 05:55 RBC 3.07 M/mm3 (3.60-5.2) L 12/14/17 05:55 Hgb 8.7 GM/dL (10.7-15.3) L 12/14/17 05:55 Hct 27.1 % (32.4-45.2) L 12/14/17 05:55 MCV 88.2 fl (80-96) 12/14/17 05:55 MCH 28.5 pg (25.7-33.7) 12/14/17 05:55 MCHC 32.3 g/dl (32.0-36.0) 12/14/17 05:55 RDW 17.3 % (11.6-15.6) H 12/14/17 05:55 Plt Count 272 K/MM3 (134-434) 12/14/17 05:55 MPV 8.5 fl (7.5-11.1) 12/14/17 05:55 Total Counted 100 12/12/17 03:45 Neutrophils % No Result Required. 12/12/17 03:45 Neutrophils % (Manual) No Result Required. 12/13/17 05:18 Band Neutrophils % 8.0 % (0-10) 12/12/17 03:45 Lymphocytes % No Result Required. 12/12/17 03:45 Lymphocytes % (Manual) 8.0 % (8-40) 12/12/17 03:45 Monocytes % (Manual) 2 % (3.8-10.2) L 12/12/17 03:45 Basophils % (Manual) 1.0 % (0-2.0) 12/11/17 22:30 Myelocytes % (Man) 3 % (0-2) H 12/12/17 03:45 Nucleated RBC % 1 % (0-0) H 12/11/17 22:30 Metamyelocytes 2 % (0-2) 12/12/17 03:45 Differential Comment Man diff performed 12/11/17 22:30 Platelet Estimate Adequate 12/12/17 03:45 Platelet Comment Giant platelets 12/11/17 22:30 Polychromasia 1+ 12/11/17 22:30 Anisocytosis 1+ 12/11/17 22:30 Macrocytosis 1+ 12/11/17 22:30 PT with INR 15.50 SEC (9.7-13.0) H 12/11/17 22:30 INR 1.37 (0.82-1.09) H 12/11/17 22:30 PTT (Actin FS) 23.2 SECONDS (26.9-34.4) L 12/11/17 22:30 Anticoagulation Therapy No Result Required. 12/11/17 23:15 Puncture Site Right radial 12/12/17 12:20 ABG pH 7.39 (7.35-7.45) 12/12/17 12:20 ABG pCO2 at Pt Temp 27.4 mmHg (35-45) L 12/12/17 12:20 ABG pO2 at Pt Temp 89.1 mmHg (80-100) 12/12/17 12:20 ABG HCO3 16.2 meq/L (22-26) L 12/12/17 12:20 ABG O2 Sat (Measured) 96.5 % (90-98.9) 12/12/17 12:20 ABG O2 Content 10.8 % vol (15-22) L 12/12/17 12:20 ABG Base Excess -7.4 meq/l (-2-2) L 12/12/17 12:20 Amando Test Positive 12/12/17 12:20 Carboxyhemoglobin 1.6 gm% (0.5-2.0) 12/11/17 23:15 Methemoglobin 1.5 % (0.4-1.5) 12/11/17 23:15 O2 Delivery Device Nasal cannula 12/12/17 12:20 Oxygen Flow Rate 3l 12/12/17 12:20 Vent Mode No Result Required. 12/11/17 23:15 Vent Rate No Result Required. 12/11/17 23:15 Mechanical Rate No 12/12/17 12:20 PEEP 0.0 cmH2O 12/12/17 12:20 Pressure Support Vent No Result Required. 12/11/17 23:15 Sodium 141 mmol/L (136-145) 12/14/17 05:55 Potassium 4.1 mmol/L (3.5-5.1) 12/14/17 05:55 Chloride 113 mmol/L (98-107) H 12/14/17 05:55 Carbon Dioxide 19 mmol/L (21-32) L 12/14/17 05:55 Anion Gap 9 (8-16) 12/14/17 05:55 BUN 11 mg/dL (7-18) 12/14/17 05:55 Creatinine 0.7 mg/dL (0.55-1.02) 12/14/17 05:55 Creat Clearance w eGFR > 60 (>60) 12/14/17 05:55 Random Glucose 174 mg/dL (74-106) H 12/14/17 05:55 Lactic Acid 2.7 mmol/L (0.0-2.0) H* 12/14/17 05:55 Calcium 7.0 mg/dL (8.5-10.1) L 12/14/17 05:55 Phosphorus 2.0 mg/dL (2.5-4.9) L 12/14/17 05:55 Magnesium 1.6 mg/dL (1.8-2.4) L 12/14/17 05:55 Total Bilirubin 0.2 mg/dL (0.2-1.0) 12/14/17 05:55 AST 19 U/L (15-37) 12/14/17 05:55 ALT < 6 U/L (12-78) L 12/14/17 05:55 Alkaline Phosphatase 80 U/L (45-117) 12/14/17 05:55 Total Protein 4.5 g/dl (6.4-8.2) L 12/14/17 05:55 Albumin 1.2 g/dl (3.4-5.0) L 12/14/17 05:55 Urine Color Radha 12/11/17 23:50 Urine Appearance Cloudy 12/11/17 23:50 Urine pH 5.0 (5.0-8.0) 12/11/17 23:50 Ur Specific [place] 1.026 (1.001-1.035) 12/11/17 23:50 Urine Protein 1+ (NEGATIVE) H 12/11/17 23:50 Urine Glucose (UA) Negative (NEGATIVE) 12/11/17 23:50 Urine Ketones Negative (NEGATIVE) 12/11/17 23:50 Urine Blood Negative (NEGATIVE) 12/11/17 23:50 Urine Nitrite Negative (NEGATIVE) 12/11/17 23:50 Urine Bilirubin Negative (<2.0 mg/dL) 12/11/17 23:50 Urine Urobilinogen 2.0 mg/dL (0.2-1.0) H 12/11/17 23:50 Ur Leukocyte Esterase 2+ (NEGATIVE) H 12/11/17 23:50 Urine WBC (Auto) 71 /hpf (3-5) 12/11/17 23:50 Urine RBC (Auto) 3 /hpf (0-3) 12/11/17 23:50 Ur Epithelial Cells Rare /HPF (FEW) 12/11/17 23:50 Hyaline Casts 11 /lpf 12/11/17 23:50 Urine Mucus Rare 12/11/17 23:50 U Random Total Protein 63 mg/dl (5-11.9) H 12/12/17 20:45 Ur Random Sodium 7 MMOL/L 12/12/17 20:45 Urine Creatinine 118.0 mg/dL (20-320) 12/12/17 20:45 Stool Occult Blood Negative (NEGATIVE) 12/12/17 04:30 Blood Type A POSITIVE 12/12/17 04:10 Antibody Screen Negative 12/12/17 04:10 Problem List - Problems (1) Colitis Code(s): K52.9 - NONINFECTIVE GASTROENTERITIS AND COLITIS, UNSPECIFIED (2) Colitis presumed infectious Code(s): K52.9 - NONINFECTIVE GASTROENTERITIS AND COLITIS, UNSPECIFIED (3) Clostridium difficile diarrhea Code(s): A04.72 - ENTEROCOLITIS D/T CLOSTRIDIUM DIFFICILE, NOT SPCF RECUR Assessment/Plan Clinically the same. Possibly fulminant c.diff associated pancolitis, poor renal function and low albumin requiring resuscitation with fluids and vasopressors. No signs of ileus,or megacolon. Agree with IV/G-tube vanco and IV flagyl, ICU monitoring, Prognosis very poor.
[2017-12-14] MEDS ORDERED: SODIUM CHLORIDE 0.9% 500 ML INFUS.BAG IV ONE (09:20)
[2017-12-14] MEDS: MUPIROCIN 2% TOPICAL OINTMENT FOR DECOLONIZATION NS SCH ×2 (09:25→21:27)
[2017-12-14] MEDS ORDERED: MAGNESIUM SULF 50% (8.12 MEQ/2 ML-1 GM VIAL) IVPB ONE (09:25)
[2017-12-14] MEDS: levETIRAcetam 500 MG/5 ML ORAL SOLUTION (UNIT-DOSE CUPS) GT SCH ×2 (09:27→21:26)
[2017-12-14] MEDS ORDERED: NAPH,MB-DB/K PH,MBDB POWDER PACKET PO ONE (09:27)
[2017-12-14] MEDS: PANTOPRAZOLE SODIUM 40 MG VIAL IVPUSH SCH (09:27)
[2017-12-14] MEDS ORDERED: MAGNESIUM SULFATE IN WATER 2 GM/50 ML IVPB IVPB ONE (10:00)
--- NOTE | 2017-12-14 10:08 | PN ---
Progress Note, Physician Chief Complaint: Awake, confused Afebrile no distress - Current Medication List Current Medications: Active Medications Albuterol Sulfate (Ventolin 0.083% Nebulizer Soln -) 1 amp NEB Q4H PRN PRN Reason: SHORT OF BREATH/WHEEZING Last Admin: 12/14/17 07:39 Dose: 1 amp Chlorhexidine Gluconate (Hibiclens For Decolonization -) 1 applic TP HS [facility] Last Admin: 12/13/17 21:55 Dose: 1 applic Heparin Sodium (Porcine) (Heparin -) 5,000 unit SQ TID [facility] Last Admin: 12/14/17 06:20 Dose: 5,000 unit Norepinephrine Bitartrate 4, (000 mcg/ Dextrose) 500 mls @ 15 mls/hr IV TITR [facility]; 2 MCG/MIN PRN Reason: Protocol Last Admin: 12/14/17 09:22 Dose: 15 mcg/min, 112.5 mls/hr Metronidazole (Flagyl 500mg Premixed Ivpb -) 500 mg in 100 mls @ 100 mls/hr IVPB Q8H-IV [facility] Last Admin: 12/14/17 09:25 Dose: 100 mls/hr Phenylephrine HCl 20,000 mcg/ (Sodium Chloride) 250 mls @ 75 mls/hr IVPB TITR [facility]; 100 MCG/MIN PRN Reason: Protocol Last Admin: 12/14/17 06:20 Dose: 100 mcg/min, 75 mls/hr Potassium Chloride/Sodium Chloride (Ns+20 Meq Kcl -) 20 meq in 1,000 mls @ 100 mls/hr IV ASDIR [facility] Last Admin: 12/13/17 10:24 Dose: 100 mls/hr Magnesium Sulfate (Magnesium Sulf 2 G/50 Ml Bag) 2 gm in 50 mls @ 50 mls/hr IVPB ONCE ONE Stop: 12/14/17 10:59 Levetiracetam (Keppra Oral Solution -) 500 mg GT BID [facility] Last Admin: 12/14/17 09:27 Dose: 500 mg Mupirocin (Bactroban Ointment (For Decolonization) -) 1 applic NS BID [facility] Stop: 12/17/17 09:59 Last Admin: 12/14/17 09:25 Dose: 1 applic Pantoprazole Sodium (Protonix Iv) 40 mg IVPUSH DAILY [facility] Last Admin: 12/14/17 09:27 Dose: 40 mg Vancomycin HCl (Vancomycin Oral Solution) 500 mg GT Q6HPO [facility] Last Admin: 12/14/17 06:20 Dose: 500 mg - Objective Vital Signs: Vital Signs Temperature 98.9 F 12/14/17 06:00 Pulse Rate 104 H 12/14/17 09:22 Respiratory Rate 33 H 12/14/17 08:00 Blood Pressure 105/67 12/14/17 09:22 O2 Sat by Pulse Oximetry (%) 99 12/14/17 08:16 Constitutional: Yes: No Distress Cardiovascular: Yes: Regular Rate and Rhythm Respiratory: Yes: Diminished Gastrointestinal: Yes: Normal Bowel Sounds, Soft, Distention. No: Tenderness Edema: No Psychiatric: Yes: Alert Labs: CBC, BMP 12/14/17 05:55 12/14/17 05:55 INR, PTT INR 1.37 (0.82-1.09) H 12/11/17 22:30 Problem List - Problems (1) Clostridium difficile diarrhea Code(s): A04.72 - ENTEROCOLITIS D/T CLOSTRIDIUM DIFFICILE, NOT SPCF RECUR (2) Colitis Code(s): K52.9 - NONINFECTIVE GASTROENTERITIS AND COLITIS, UNSPECIFIED (3) Functional quadriplegia Code(s): R53.2 - FUNCTIONAL QUADRIPLEGIA (4) HLD (hyperlipidemia) Code(s): E78.5 - HYPERLIPIDEMIA, UNSPECIFIED (5) HTN (hypertension) Code(s): I10 - ESSENTIAL (PRIMARY) HYPERTENSION (6) Seizures Code(s): R56.9 - UNSPECIFIED CONVULSIONS (7) Severe sepsis Code(s): A41.9 - SEPSIS, UNSPECIFIED ORGANISM; R65.20 - SEVERE SEPSIS WITHOUT SEPTIC SHOCK (8) MODS (multiple organ dysfunction syndrome) Code(s): [id number] - Assessment/Plan PLAN Septic shock -- on pressor support -- Levophed and Neosynephrine -- ICU monitoring -- lactic acid levels elevated Fulminant Cdiff colitis -- on Vanco and Flagyl -- WBC 46 -- afebrile Acure renal failure/MODS/Hypernatremia -- renal function improving -- hypernatremia improved continue ICU care, pressor support Pt is more alert
[2017-12-14] MEDS ORDERED: PHENYLEPHRINE HCL 10 MG/1 ML SINGLE DOSE VIAL ONE (11:01)
[2017-12-14] MEDS: SODIUM CHLORIDE 0.9%/KCL 20 MEQ/1,000 ML INFUS.BAG IV SCH ×2 (11:11→17:00)
--- NOTE | 2017-12-14 12:08 | PN ---
Physical Exam: SUBJECTIVE: Patient alert, oriented to self and place. No active medical complaints. OBJECTIVE: Vital Signs Period Temp Pulse Resp BP Sys/Levine Pulse Ox Last 24 Hr 98.2 F-99.5 F 85-121 24-35 88-166/54-97 99-99 GENERAL: The patient is awake, alert, verbal HEAD: Normal with no signs of trauma, RIJ in place EYES: PERRL, extraocular movements intact, sclera anicteric, conjunctiva clear. No ptosis. NECK: Trachea midline, supple. LUNGS: Breath sounds equal, no accessory muscle use. HEART: Regular rate and rhythm, S1, S2 without murmur, rub or gallop. ABDOMEN: Distended, normoactive bowel sounds, no masses. EXTREMITIES: 2+ pulses, warm, well-perfused, no edema. NEUROLOGICAL: alert, lethargic Laboratory Results - last 24 hr 12/13/17 12/13/17 12/13/17 05:18 12:20 23:08 WBC RBC Hgb Hct MCV MCH MCHC RDW Plt Count MPV Sodium 141 140 Potassium 3.5 4.1 Chloride 111 H 111 H Carbon Dioxide 19 L 18 L Anion Gap 11 11 BUN 22 H 13 Creatinine 0.9 0.7 Creat Clearance w eGFR Random Glucose 185 H 213 H Lactic Acid Calcium 7.0 L 7.1 L Phosphorus 2.2 L Cancelled 2.2 L Magnesium 1.8 Cancelled 1.7 L Total Bilirubin AST ALT Alkaline Phosphatase Total Protein Albumin 12/14/17 12/14/17 12/14/17 05:55 05:55 05:55 WBC 46.2 H* RBC 3.07 L Hgb 8.7 L Hct 27.1 L MCV 88.2 MCH 28.5 MCHC 32.3 RDW 17.3 H Plt Count 272 MPV 8.5 Sodium 141 Potassium 4.1 Chloride 113 H Carbon Dioxide 19 L Anion Gap 9 BUN 11 Creatinine 0.7 Creat Clearance w eGFR > 60 Random Glucose 174 H Lactic Acid 2.7 H* Calcium 7.0 L Phosphorus 2.0 L Magnesium 1.6 L Total Bilirubin 0.2 AST 19 ALT < 6 L Alkaline Phosphatase 80 Total Protein 4.5 L Albumin 1.2 L Active Medications Generic Name Dose Route Start Last Admin Trade Name Freq PRN Reason Stop Dose Admin Albuterol Sulfate 1 amp 12/13/17 12:30 12/14/17 10:35 Ventolin 0.083% Nebulizer Soln - NEB 1 amp Q4H PRN Administration SHORT OF BREATH/WHEEZING Chlorhexidine Gluconate 1 applic 12/12/17 22:00 12/13/17 21:55 Hibiclens For Decolonization - TP 1 applic HS [facility] Administration Heparin Sodium (Porcine) 5,000 unit 12/12/17 06:00 12/14/17 06:20 Heparin - SQ 5,000 unit TID [facility] Administration Norepinephrine Bitartrate 4, 500 mls @ 15 mls/hr 12/12/17 03:15 12/14/17 09: 22 000 mcg/ Dextrose IV 15 mcg/min TITR [facility] 112.5 mls/hr Protocol Administration 2 MCG/MIN Metronidazole 500 mg in 100 mls @ 100 mls/hr 12/12/17 11:00 12/14/17 09:25 Flagyl 500mg Premixed Ivpb - IVPB 100 mls/hr Q8H-IV [facility] Administration Phenylephrine HCl 20,000 mcg/ 250 mls @ 75 mls/hr 12/12/17 06:45 12/14/17 06: 20 Sodium Chloride IVPB 100 mcg/min TITR [facility] 75 mls/hr Protocol Administration 100 MCG/MIN Potassium Chloride/Sodium Chloride 20 meq in 1,000 mls @ 100 mls/hr 12/13/17 09:44 12/14/17 11:11 Ns+20 Meq Kcl - IV Not Given ASDIR [facility] Levetiracetam 500 mg 12/13/17 22:00 12/14/17 09:27 Keppra Oral Solution - GT 500 mg BID CLEMENTE Administration Mupirocin 1 applic 12/12/17 10:00 12/14/17 09:25 Bactroban Ointment (For Decolonization) - NS 12/17/17 09:59 1 applic BID CLEMENTE Administration Pantoprazole Sodium 40 mg 12/12/17 11:30 12/14/17 09:27 Protonix Iv IVPUSH 40 mg DAILY CLEMENTE Administration Vancomycin HCl 500 mg 12/12/17 06:00 12/14/17 11:12 Vancomycin Oral Solution GT 500 mg Q6HPO CLEMENTE Administration ASSESSMENT/PLAN: Patient is a 67 year old female with a PMH of CVA (residual R sided weakness), dementia, PEG tube, HLD, epilepsy who presented to ED on 12/11 from assisted living facility for hypotension and hypoxia. Patient recently tested positive for C. Diff (12/09) on Flagyll. 1. SEPSIS 2/2 to MODS vs. C. Difficile Colitis - Febrile (102.3) and hypotensive 71/44 @ presentation on 12/11 - Leukocytosis 46 today (12/14), improving <-- 50 <-- 40 <-- 35 - Currently afebrile - BP overnight 100's/60's-70's; CVP 3 - Lactic Acidosis resolving 10.9 -> 7.2 - Will continue pressors with close BP monitoring, goal CVP 10-12 -- plan to wean of phenylepinephrine then NE - Continue Vancomycin, Flagyll; consider adding Zoysn for empiric coverage for UTI as patient's NICOLÁS resolved, Cr 0.7 today (12/14) 2. CARDIAC - Hypotension improving w/ SBP 100's/60's-70's - CVP 3; - Continue pressors and fluid resuscitation with plan of weaning off Phenylepinephrine 3. PULMONARY - SpO2 98% on 4 L NC; tachypneic - CXR shows R sided atelectasis, c/w with previous CXR -- slightly worsened atelectasis 4. GI - Fulminant C. Diff Colitis - CT Abdomen/Pelvis shows diffuse colonic thickening, partial illeus, complex cystic mass in urethra - Stool cultures pending - Continue Flagyll; close monitoring for toxic megacolon 5. RENAL - NICOLÁS resolved Cr 0.7/BUN 11 today (12/12) <-- Cr 1.3/BUN 20 today (12/13) <-- Cr. 2.0 <-- 2.8, likely pre-renal 2/2 to hypovolemia 2/2 to C Diff colitis diarrhea - Renal/Bladder U/S unremarkable - Will recheck BMP pending fluids 6. - UA shows 2+ Leukocyte Esterase, 71 WBC - Patient's renal function improving, consider re-starting Zosyn for empiric coverage, ID following appreciate recs 6. NORMOCYTIC ANEMIA - 2/2 to Colitis vs. Chronic Disease vs CRYSTAL - Hb stable @ 9.1 today (12/13) <-- 9.1 < -- 8.8, no previous Hb in system - FOBT pending 7. NEUROLOGIC - Patient alert, responsive to verbal and tactile stimuli, tracks with eyes; @ baseline - Continue to monitor FEN - Electrolyte monitoring and replacement as indicated above - J-tube feeding once stable PROPHYLAXIS Heparin SQ SCDs FULL CODE Visit type - Emergency Visit Emergency Visit: No - New Patient This patient is new to me today: No - Critical Care Critical Care patient: No
--- NOTE | 2017-12-14 12:33 | PN ---
Teaching Attending Note Name of Resident: Candy Pina ATTENDING PHYSICIAN STATEMENT I saw and evaluated the patient. I reviewed the resident's note and discussed the case with the resident. I agree with the resident's findings and plan as documented. SUBJECTIVE: Pt seen and examined in the ICU. Remains on levophed, phenylephrine gtts. Tachypneic at rest. No further fevers recorded. OBJECTIVE: Last Vital Signs Temp Pulse Resp BP Pulse Ox 99.5 F 106 H 23 113/70 99 12/14/17 10:00 12/14/17 12:00 12/14/17 12:00 12/14/17 12:00 12/14/17 08:16 Intake & Output 12/11/17 12/12/17 12/13/17 12/14/17 23:59 23:59 23:59 23:59 Intake Total 5098 8975 3600 Output Total 200 1975 1250 1200 Balance -200 3122 7678 2400 Weight 68.492 kg 72.393 kg Gen: tachypneic at rest Heart: tachycardic, regular Lung: scattered rhonchi Abd: increased distention, no rebound Ext: + edema CBC, BMP 12/14/17 05:55 12/14/17 05:55 Active Medications Albuterol Sulfate (Ventolin 0.083% Nebulizer Soln -) 1 amp NEB Q4H PRN PRN Reason: SHORT OF BREATH/WHEEZING Last Admin: 12/14/17 10:35 Dose: 1 amp Chlorhexidine Gluconate (Hibiclens For Decolonization -) 1 applic TP HS [facility] Last Admin: 12/13/17 21:55 Dose: 1 applic Heparin Sodium (Porcine) (Heparin -) 5,000 unit SQ TID [facility] Last Admin: 12/14/17 06:20 Dose: 5,000 unit Norepinephrine Bitartrate 4, (000 mcg/ Dextrose) 500 mls @ 15 mls/hr IV TITR [facility]; 2 MCG/MIN PRN Reason: Protocol Last Admin: 12/14/17 09:22 Dose: 15 mcg/min, 112.5 mls/hr Metronidazole (Flagyl 500mg Premixed Ivpb -) 500 mg in 100 mls @ 100 mls/hr IVPB Q8H-IV [facility] Last Admin: 12/14/17 09:25 Dose: 100 mls/hr Phenylephrine HCl 20,000 mcg/ (Sodium Chloride) 250 mls @ 75 mls/hr IVPB TITR [facility]; 100 MCG/MIN PRN Reason: Protocol Last Admin: 12/14/17 06:20 Dose: 100 mcg/min, 75 mls/hr Potassium Chloride/Sodium Chloride (Ns+20 Meq Kcl -) 20 meq in 1,000 mls @ 100 mls/hr IV ASDIR [facility] Last Admin: 12/14/17 11:11 Dose: Not Given Levetiracetam (Keppra Oral Solution -) 500 mg GT BID [facility] Last Admin: 12/14/17 09:27 Dose: 500 mg Mupirocin (Bactroban Ointment (For Decolonization) -) 1 applic NS BID [facility] Stop: 12/17/17 09:59 Last Admin: 12/14/17 09:25 Dose: 1 applic Pantoprazole Sodium (Protonix Iv) 40 mg IVPUSH DAILY [facility] Last Admin: 12/14/17 09:27 Dose: 40 mg Vancomycin HCl (Vancomycin Oral Solution) 500 mg GT Q6HPO [facility] Last Admin: 12/14/17 11:12 Dose: 500 mg ASSESSMENT AND PLAN: C Diff Colitis UTI Septic Shock Acute Kidney Injury Lactic Acidosis h/o CVA Dementia - continue antibiotics per ID - f/u cultures - IVF bolus resuscitation to CVP 8-12 - titrate pressors to maintain MAP >65 - monitor urine output, creatinine - aspiration precautions - O2 to keep SpO2 >90% - NPO - DVT/GI prophylaxis - prognosis guarded - continue ICU monitoring critical care time spent in reviewing chart, evaluating patient and formulating plan 35 min
--- NOTE | 2017-12-14 14:44 | PN ---
Progress Note, Physician History of Present Illness: patient more awake and alert says she is feeling better calm has been afebrile still remains on pressors and tachy present - Current Medication List Current Medications: Active Medications Albuterol Sulfate (Ventolin 0.083% Nebulizer Soln -) 1 amp NEB Q4H PRN PRN Reason: SHORT OF BREATH/WHEEZING Last Admin: 12/14/17 10:35 Dose: 1 amp Chlorhexidine Gluconate (Hibiclens For Decolonization -) 1 applic TP HS [facility] Last Admin: 12/13/17 21:55 Dose: 1 applic Heparin Sodium (Porcine) (Heparin -) 5,000 unit SQ TID [facility] Last Admin: 12/14/17 14:33 Dose: 5,000 unit Norepinephrine Bitartrate 4, (000 mcg/ Dextrose) 500 mls @ 15 mls/hr IV TITR [facility]; 2 MCG/MIN PRN Reason: Protocol Last Admin: 12/14/17 09:22 Dose: 15 mcg/min, 112.5 mls/hr Metronidazole (Flagyl 500mg Premixed Ivpb -) 500 mg in 100 mls @ 100 mls/hr IVPB Q8H-IV [facility] Last Admin: 12/14/17 09:25 Dose: 100 mls/hr Phenylephrine HCl 20,000 mcg/ (Sodium Chloride) 250 mls @ 75 mls/hr IVPB TITR [facility]; 100 MCG/MIN PRN Reason: Protocol Last Admin: 12/14/17 06:20 Dose: 100 mcg/min, 75 mls/hr Potassium Chloride/Sodium Chloride (Ns+20 Meq Kcl -) 20 meq in 1,000 mls @ 100 mls/hr IV ASDIR [facility] Last Admin: 12/14/17 11:11 Dose: Not Given Levetiracetam (Keppra Oral Solution -) 500 mg GT BID [facility] Last Admin: 12/14/17 09:27 Dose: 500 mg Mupirocin (Bactroban Ointment (For Decolonization) -) 1 applic NS BID [facility] Stop: 12/17/17 09:59 Last Admin: 12/14/17 09:25 Dose: 1 applic Pantoprazole Sodium (Protonix Iv) 40 mg IVPUSH DAILY [facility] Last Admin: 12/14/17 09:27 Dose: 40 mg Vancomycin HCl (Vancomycin Oral Solution) 500 mg GT Q6HPO [facility] Last Admin: 12/14/17 11:12 Dose: 500 mg - Objective Vital Signs: Vital Signs Temperature 99.5 F 12/14/17 10:00 Pulse Rate 105 H 12/14/17 14:00 Respiratory Rate 28 H 12/14/17 14:00 Blood Pressure 115/76 12/14/17 14:00 O2 Sat by Pulse Oximetry (%) 99 12/14/17 08:16 Constitutional: Yes: No Distress, Calm Cardiovascular: Yes: Regular Rate and Rhythm, Tachycardia Respiratory: Yes: Regular, On Nasal O2, Poor Air Entry (bases) Gastrointestinal: Yes: Soft, Hypoactive Bowel Sounds Musculoskeletal: Yes: WNL Extremities: Yes: WNL Neurological: Yes: Alert Psychiatric: Yes: Alert Labs: CBC, BMP 12/14/17 05:55 12/14/17 05:55 INR, PTT INR 1.37 (0.82-1.09) H 12/11/17 22:30 Assessment/Plan wbc trending down Problem List - Problem (1) MODS (multiple organ dysfunction syndrome) Code(s): [id number] - (2) Severe sepsis Code(s): A41.9 - SEPSIS, UNSPECIFIED ORGANISM; R65.20 - SEVERE SEPSIS WITHOUT SEPTIC SHOCK (3) Clostridium difficile diarrhea Code(s): A04.72 - ENTEROCOLITIS D/T CLOSTRIDIUM DIFFICILE, NOT SPCF RECUR (4) Hypernatremia Code(s): E87.0 - HYPEROSMOLALITY AND HYPERNATREMIA (5) Chronic respiratory failure Code(s): J96.10 - CHRONIC RESPIRATORY FAILURE, UNSP W HYPOXIA OR HYPERCAPNIA (6) Seizures Code(s): R56.9 - UNSPECIFIED CONVULSIONS (7) Bladder mass Code(s): N32.89 - OTHER SPECIFIED DISORDERS OF BLADDER (8) MDD (major depressive disorder) Code(s): F32.9 - MAJOR DEPRESSIVE DISORDER, SINGLE EPISODE, UNSPECIFIED (9) Hx TIA/stroke w/o resid Code(s): Z86.73 - PRSNL HX OF TIA (TIA), AND CEREB INFRC W/O RESID DEFICITS (10) HTN (hypertension) Code(s): I10 - ESSENTIAL (PRIMARY) HYPERTENSION (11) HLD (hyperlipidemia) Code(s): E78.5 - HYPERLIPIDEMIA, UNSPECIFIED (12) Functional quadriplegia Code(s): R53.2 - FUNCTIONAL QUADRIPLEGIA (13) Prolonged QT interval Code(s): R94.31 - ABNORMAL ELECTROCARDIOGRAM [ECG] [EKG] (14) Anemia Code(s): D64.9 - ANEMIA, UNSPECIFIED Qualifiers: Anemia type: unspecified type Qualified Code(s): D64.9 - Anemia, unspecified plan continue current mgmt cx reports noted continue hydration pressors as needed continue to monitor wbc rest as per icu cc time 40 min
--- NOTE | 2017-12-14 17:26 | PN ---
Progress Note (short form) - Note Progress Note: Renal follow up for NICOLÁS Pt seen and examined at the bedside awake and talking more today has abd discomfort on vasopressers and IVF making urine Vital Signs Temperature 99.0 F 12/14/17 12:00 Pulse Rate 122 H 12/14/17 17:00 Respiratory Rate 30 H 12/14/17 17:00 Blood Pressure 121/71 12/14/17 17:00 O2 Sat by Pulse Oximetry (%) 99 12/14/17 08:16 Intake & Output 12/11/17 12/12/17 12/13/17 12/14/17 23:59 23:59 23:59 23:59 Intake Total 5093 5572 3600 Output Total 200 1975 1250 2100 Balance -200 3122 7678 1500 Weight 68.492 kg 72.393 kg 72.121 kg NAD, sleeping tachycardic, no murmur Dec BS distended abd no LE edema CBC, BMP 12/14/17 05:55 12/14/17 05:55 Current Medications Albuterol Sulfate (Ventolin 0.083% Nebulizer Soln -) 1 amp NEB Q4H PRN PRN Reason: SHORT OF BREATH/WHEEZING Last Admin: 12/14/17 10:35 Dose: 1 amp Chlorhexidine Gluconate (Hibiclens For Decolonization -) 1 applic TP HS [facility] Last Admin: 12/13/17 21:55 Dose: 1 applic Heparin Sodium (Porcine) (Heparin -) 5,000 unit SQ TID [facility] Last Admin: 12/14/17 14:33 Dose: 5,000 unit Norepinephrine Bitartrate 4, (000 mcg/ Dextrose) 500 mls @ 15 mls/hr IV TITR [facility]; 2 MCG/MIN PRN Reason: Protocol Last Admin: 12/14/17 09:22 Dose: 15 mcg/min, 112.5 mls/hr Metronidazole (Flagyl 500mg Premixed Ivpb -) 500 mg in 100 mls @ 100 mls/hr IVPB Q8H-IV [facility] Last Admin: 12/14/17 16:59 Dose: 100 mls/hr Phenylephrine HCl 20,000 mcg/ (Sodium Chloride) 250 mls @ 75 mls/hr IVPB TITR [facility]; 100 MCG/MIN PRN Reason: Protocol Last Admin: 12/14/17 06:20 Dose: 100 mcg/min, 75 mls/hr Potassium Chloride/Sodium Chloride (Ns+20 Meq Kcl -) 20 meq in 1,000 mls @ 100 mls/hr IV ASDIR [facility] Last Admin: 12/14/17 17:00 Dose: 100 mls/hr Levetiracetam (Keppra Oral Solution -) 500 mg GT BID [facility] Last Admin: 12/14/17 09:27 Dose: 500 mg Mupirocin (Bactroban Ointment (For Decolonization) -) 1 applic NS BID [facility] Stop: 12/17/17 09:59 Last Admin: 12/14/17 09:25 Dose: 1 applic Pantoprazole Sodium (Protonix Iv) 40 mg IVPUSH DAILY [facility] Last Admin: 12/14/17 09:27 Dose: 40 mg Vancomycin HCl (Vancomycin Oral Solution) 500 mg GT Q6HPO [facility] Last Admin: 12/14/17 17:00 Dose: 500 mg 67 year old woman with PMhx of CVS, Dementia, PEG with recent Cdiff admission who presented with hypotension and found to have acute sepsis with NICOLÁS #Acute Kidney Injury secondary to renal hypoprofusion +/- ATN in setting of Sepsis #Lactic acidosis #Colitis/C-diff #Sepsis with hypotension #Anemia #Hypokalemia #Hypernatremia Renal function is improved and stable continue vasopresser support keep MAP > 65, CVP 8-10 supplament Phos levels with PO Neutra-phos Trend lactic acid oral water intake as tolerated Constantino Clemons DO
[2017-12-14] MEDS: CHLORHEXIDINE GLUCONATE 4% CLEANSER FOR DECOLONIZATION TP SCH (21:26)
[2017-12-15] MEDS: VANCOMYCIN 250 MG/5 ML ORAL SOLUTION GT SCH ×5 (00:05→23:23)
[2017-12-15] MEDS: NOREPINEPHRINE BITARTRATE 4,000 MCG in DEXTROSE 5%-WATER - 496 ML IV SCH (03:15)
[2017-12-15] MEDS: HEPARIN NA (PORCINE) 5,000 UNITS/ML 1ML VIAL SQ SCH ×3 (05:14→21:54)
[2017-12-15] MEDS: SODIUM CHLORIDE 0.9%/KCL 20 MEQ/1,000 ML INFUS.BAG IV SCH ×2 (05:15→10:05)
[2017-12-15 06:49] LABS: HEMATOCRIT 24.1 % (32.4-45.2); MCH 29.6 pg (25.7-33.7); MCHC 33.1 g/dl (32.0-36.0); MEAN CELL VOLUME 89.5 fl (80-96); MEAN PLT VOLUME 8.5 fl (7.5-11.1); PLATELET COUNT 254 K/MM3 (134-434); RBC 2.69 M/mm3 (3.60-5.2); RDW 17.4 % (11.6-15.6)
[2017-12-15 07:27] LABS: ANION GAP 6 (8-16); BLOOD UREA NITROGEN 6 mg/dL (7-18); CALCIUM 7.2 mg/dL (8.5-10.1); CHLORIDE 114 mmol/L (98-107); CO2 23 mmol/L (21-32); CREATININE 0.5 mg/dL (0.55-1.02); GLUCOSE,RANDOM 95 mg/dL (74-106); MAGNESIUM 1.6 mg/dL (1.8-2.4); PHOSPHOROUS 2.2 mg/dL (2.5-4.9); POTASSIUM 4.1 mmol/L (3.5-5.1); SODIUM 143 mmol/L (136-145)
[2017-12-15 07:36] LABS: WHITE BLOOD COUNT 33.9 K/mm3 (4.0-10.0)
[2017-12-15] MEDS ORDERED: MAGNESIUM SULF 50% (8.12 MEQ/2 ML-1 GM VIAL) IVPB ONE (08:21)
[2017-12-15] MEDS ORDERED: MAGNESIUM 1GM/D5W - 1 GM/100 ML IVPB IVPB ONE (09:00)
--- NOTE | 2017-12-15 09:24 | PN ---
Physical Exam: SUBJECTIVE: Patient alert. Intermittently verbal. OBJECTIVE: Vital Signs Period Temp Pulse Resp BP Sys/Levine Pulse Ox Last 24 Hr 98.7 F-99.5 F 101-128 18-37 94-136/54-87 100-100 GENERAL: The patient is awake, alert, verbal HEAD: Normal with no signs of trauma, RIJ in place EYES: PERRL, extraocular movements intact, sclera anicteric, conjunctiva clear. No ptosis. NECK: Trachea midline, supple. LUNGS: Breath sounds equal, no accessory muscle use. HEART: Regular rate and rhythm, S1, S2 without murmur, rub or gallop. ABDOMEN: Distended, normoactive bowel sounds, no masses. EXTREMITIES: 2+ pulses, warm, well-perfused, no edema. NEUROLOGICAL: alert, lethargic Laboratory Results - last 24 hr 12/15/17 12/15/17 12/15/17 05:20 06:00 06:00 WBC 33.9 H* RBC 2.69 L Hgb 8.0 L Hct 24.1 L MCV 89.5 MCH 29.6 MCHC 33.1 RDW 17.4 H Plt Count 254 MPV 8.5 Sodium 143 Potassium 4.1 Chloride 114 H Carbon Dioxide 23 Anion Gap 6 L BUN 6 L Creatinine 0.5 L Random Glucose 95 Lactic Acid 1.2 Calcium 7.2 L Phosphorus 2.2 L Magnesium 1.6 L Active Medications Generic Name Dose Route Start Last Admin Trade Name Freq PRN Reason Stop Dose Admin Albuterol Sulfate 1 amp 12/13/17 12:30 12/14/17 10:35 Ventolin 0.083% Nebulizer Soln - NEB 1 amp Q4H PRN Administration SHORT OF BREATH/WHEEZING Chlorhexidine Gluconate 1 applic 12/12/17 22:00 12/14/17 21:26 Hibiclens For Decolonization - TP 1 applic HS [facility] Administration Heparin Sodium (Porcine) 5,000 unit 12/12/17 06:00 12/15/17 05:14 Heparin - SQ 5,000 unit TID [facility] Administration Norepinephrine Bitartrate 4, 500 mls @ 15 mls/hr 12/12/17 03:15 12/15/17 03: 15 000 mcg/ Dextrose IV 1 mcg/min TITR [facility] 7.5 mls/hr Protocol Administration 2 MCG/MIN Metronidazole 500 mg in 100 mls @ 100 mls/hr 12/12/17 11:00 12/15/17 01:05 Flagyl 500mg Premixed Ivpb - IVPB 100 mls/hr Q8H-IV [facility] Administration Potassium Chloride/Sodium Chloride 20 meq in 1,000 mls @ 100 mls/hr 12/13/17 09:44 12/15/17 05:15 Ns+20 Meq Kcl - IV 100 mls/hr ASDIR [facility] Administration Magnesium Sulfate/Dextrose 1 gm in 100 mls @ 100 mls/hr 12/15/17 09:00 Magnesium 1gm/D5w - IVPB 12/15/17 09:59 ONCE ONE Levetiracetam 500 mg 12/13/17 22:00 12/14/17 21:26 Keppra Oral Solution - GT 500 mg BID [facility] Administration Mupirocin 1 applic 12/12/17 10:00 12/14/17 21:27 Bactroban Ointment (For Decolonization) - NS 12/17/17 09:59 1 applic BID [facility] Administration Pantoprazole Sodium 40 mg 12/12/17 11:30 12/14/17 09:27 Protonix Iv IVPUSH 40 mg DAILY [facility] Administration Potassium Phos/Sodium Phos 1 packet 12/15/17 10:00 Phos-Nak Packet - PO BID [facility] Vancomycin HCl 500 mg 12/12/17 06:00 12/15/17 05:14 Vancomycin Oral Solution GT 500 mg Q6HPO [facility] Administration ASSESSMENT/PLAN: Patient is a 67 year old female with a PMH of CVA (residual R sided weakness), dementia, PEG tube, HLD, epilepsy who presented to ED on 12/11 from assisted living facility for hypotension and hypoxia. Patient recently tested positive for C. Diff (12/09) on Flagyll. 1. SEPSIS 2/2 to MODS vs. C. Difficile Colitis - Febrile (102.3) and hypotensive 71/44 @ presentation on 12/11 - Leukocytosis 33.9 (12/15), improving <-- 50 <-- 40 <-- 35 - Currently afebrile - Patient weaned off pressors - Lactic Acidosis resolved - Will continue close BP monitoring with patient off pressors - Continue Vancomycin, Flagyll; consider adding Zoysn for empiric coverage for UTI as patient's NICOLÁS at presentaiton resolved 2. CARDIAC - Hypotension improving w/ SBP 100's-120's/60's-90's - patient off pressors as of today (12/15) a.m. - CVP 9-12; - Continue close BP monitoring 3. PULMONARY - SpO2 98% on 4 L NC; tachypneic, wheezing on PE - CXR shows R sided atelectasis, c/w with previous CXR -- slightly worsened atelectasis - Will repeat CXR and schedule Duo Nebs 4. GI - Fulminant C. Diff Colitis - CT Abdomen/Pelvis shows diffuse colonic thickening, partial illeus, complex cystic mass in urethra - Stool cultures pending - Continue Flagyll; close monitoring for toxic megacolon 5. RENAL - NICOLÁS resolved Cr 0.5/BUN 6 today (12/15) <-- Cr 0.7/BUN 11 (12/14) <-- Cr 1.3/ BUN 20 (12/13) <--Cr. 2.0 <-- 2.8, likely pre-renal 2/2 to hypovolemia 2/2 to C Diff colitis diarrhea - Renal/Bladder U/S unremarkable - Continue to monitor 6. - UA shows 2+ Leukocyte Esterase, 71 WBC - Patient's renal function improving, consider re-starting Zosyn for empiric coverage, ID following appreciate recs 6. NORMOCYTIC ANEMIA - 2/2 to Colitis vs. Chronic Disease vs CRYSTAL - Hb 8.0 <-- 9.1 (12/13) <-- 9.1 < -- 8.8, no previous Hb in system - FOBT pending 7. NEUROLOGIC - Patient alert, responsive to verbal and tactile stimuli, tracks with eyes; @ baseline - Continue to monitor 8. HYPOMAGNESIA - likely 2/2 to IV fluids and PPI - Mg 1.6 today (12/15) will replace - Will switch PPI to H2 iron 9. HYPOPHOSPHATEMIA - Phosphorus 2.2 today (12/15) will replace FEN - Electrolyte monitoring and replacement as indicated above - J-tube feeding initiated today (12/15) PROPHYLAXIS Heparin SQ GI prophylaxis switched to H2 iron 2/2 to hypomagnesia SCDs FULL CODE Visit type - Emergency Visit Emergency Visit: No - New Patient This patient is new to me today: No - Critical Care Critical Care patient: No
[2017-12-15] MEDS ORDERED: PT OWN MED DRAWER 7, Y5N ONE (09:39)
--- NOTE | 2017-12-15 09:54 | PN ---
Progress Note, Physician Chief Complaint: Awake, confused Afebrile no distress no bm today so far - Current Medication List Current Medications: Active Medications Albuterol Sulfate (Ventolin 0.083% Nebulizer Soln -) 1 amp NEB Q4H PRN PRN Reason: SHORT OF BREATH/WHEEZING Last Admin: 12/14/17 10:35 Dose: 1 amp Chlorhexidine Gluconate (Hibiclens For Decolonization -) 1 applic TP HS [facility] Last Admin: 12/14/17 21:26 Dose: 1 applic Heparin Sodium (Porcine) (Heparin -) 5,000 unit SQ TID [facility] Last Admin: 12/15/17 05:14 Dose: 5,000 unit Norepinephrine Bitartrate 4, (000 mcg/ Dextrose) 500 mls @ 15 mls/hr IV TITR [facility]; 2 MCG/MIN PRN Reason: Protocol Last Admin: 12/15/17 03:15 Dose: 1 mcg/min, 7.5 mls/hr Metronidazole (Flagyl 500mg Premixed Ivpb -) 500 mg in 100 mls @ 100 mls/hr IVPB Q8H-IV [facility] Last Admin: 12/15/17 01:05 Dose: 100 mls/hr Potassium Chloride/Sodium Chloride (Ns+20 Meq Kcl -) 20 meq in 1,000 mls @ 100 mls/hr IV ASDIR [facility] Last Admin: 12/15/17 05:15 Dose: 100 mls/hr Magnesium Sulfate/Dextrose (Magnesium 1gm/D5w -) 1 gm in 100 mls @ 100 mls/hr IVPB ONCE ONE Stop: 12/15/17 09:59 Levetiracetam (Keppra Oral Solution -) 500 mg GT BID [facility] Last Admin: 12/14/17 21:26 Dose: 500 mg Mupirocin (Bactroban Ointment (For Decolonization) -) 1 applic NS BID [facility] Stop: 12/17/17 09:59 Last Admin: 12/14/17 21:27 Dose: 1 applic Pantoprazole Sodium (Protonix Iv) 40 mg IVPUSH DAILY [facility] Last Admin: 12/14/17 09:27 Dose: 40 mg Potassium Phos/Sodium Phos (Phos-Nak Packet -) 1 packet PO BID [facility] Vancomycin HCl (Vancomycin Oral Solution) 500 mg GT Q6HPO [facility] Last Admin: 12/15/17 05:14 Dose: 500 mg - Objective Vital Signs: Vital Signs Temperature 98.8 F 12/15/17 06:00 Pulse Rate 115 H 12/15/17 08:00 Respiratory Rate 33 H 12/15/17 08:00 Blood Pressure 95/63 12/15/17 08:00 O2 Sat by Pulse Oximetry (%) 100 12/15/17 07:49 Constitutional: Yes: No Distress Cardiovascular: Yes: Regular Rate and Rhythm Respiratory: Yes: Diminished Gastrointestinal: Yes: Normal Bowel Sounds, Soft. No: Tenderness Edema: Yes Edema: LLE: Trace, RLE: Trace Labs: CBC, BMP 12/15/17 05:20 12/15/17 06:00 INR, PTT INR 1.37 (0.82-1.09) H 12/11/17 22:30 Problem List - Problems (1) Clostridium difficile diarrhea Code(s): A04.72 - ENTEROCOLITIS D/T CLOSTRIDIUM DIFFICILE, NOT SPCF RECUR (2) Colitis Code(s): K52.9 - NONINFECTIVE GASTROENTERITIS AND COLITIS, UNSPECIFIED (3) Functional quadriplegia Code(s): R53.2 - FUNCTIONAL QUADRIPLEGIA (4) HLD (hyperlipidemia) Code(s): E78.5 - HYPERLIPIDEMIA, UNSPECIFIED (5) HTN (hypertension) Code(s): I10 - ESSENTIAL (PRIMARY) HYPERTENSION (6) Seizures Code(s): R56.9 - UNSPECIFIED CONVULSIONS (7) Severe sepsis Code(s): A41.9 - SEPSIS, UNSPECIFIED ORGANISM; R65.20 - SEVERE SEPSIS WITHOUT SEPTIC SHOCK (8) MODS (multiple organ dysfunction syndrome) Code(s): [id number] - Assessment/Plan PLAN Septic shock -- on pressor support -- Levophed wean -- ICU monitoring -- lactic acid levels decreased Fulminant Cdiff colitis -- on Vanco and Flagyl -- WBC trending down -- PO diet -- afebrile-- cdiff antigen positive s/p Acute renal failure/MODS/Hypernatremia -- renal function improving -- hypernatremia improved -- replace electrolytes continue ICU care, pressor support Pt is more alert clinically better
[2017-12-15] MEDS: NAPH,MB-DB/K PH,MBDB POWDER PACKET PO SCH ×2 (10:04→21:55)
[2017-12-15] MEDS: MUPIROCIN 2% TOPICAL OINTMENT FOR DECOLONIZATION NS SCH ×2 (10:05→21:54)
[2017-12-15] MEDS: PANTOPRAZOLE SODIUM 40 MG VIAL IVPUSH SCH (10:05)
[2017-12-15] MEDS ORDERED: FUROSEMIDE 40 MG/4 ML INJECTABLE VIAL ONE (10:47)
[2017-12-15] MEDS ORDERED: FUROSEMIDE 40 MG/4 ML INJECTABLE VIAL IVPUSH ONE ×2 (10:50→18:00)
[2017-12-15] MEDS: ALBUTEROL SO4 2.5/IPRATROPIUM 0.5 INH SOL 3 ML VIAL.NEB. NEB SCH ×3 (10:55→20:43)
--- NOTE | 2017-12-15 11:22 | PN ---
Progress Note (short form) - Note Progress Note: Renal follow up for NICOLÁS Pt seen and examined at the bedside pt noted to have SOB, required Nebs and IV lasix reports feeling better now no chest pain, fever, chills, N/V continues to have persistent diarrhea Vital Signs Temperature 98.7 F 12/15/17 10:00 Pulse Rate 115 H 12/15/17 11:00 Respiratory Rate 27 H 12/15/17 11:00 Blood Pressure 101/65 12/15/17 11:00 O2 Sat by Pulse Oximetry (%) 100 12/15/17 07:49 Intake & Output 12/12/17 12/13/17 12/14/17 12/15/17 23:59 23:59 23:59 23:59 Intake Total 5097 8928 7847.1 1010 Output Total 1975 1250 3330 200 Balance 3122 7678 4517.1 810 Weight 72.393 kg 72.121 kg NAD, sleeping tachycardic, no murmur Dec BS distended abd no LE edema CBC, BMP 12/15/17 05:20 12/15/17 06:00 Current Medications Albuterol Sulfate (Ventolin 0.083% Nebulizer Soln -) 1 amp NEB Q4H PRN PRN Reason: SHORT OF BREATH/WHEEZING Last Admin: 12/14/17 10:35 Dose: 1 amp Albuterol/Ipratropium (Duoneb -) 1 amp NEB RQID [facility] Last Admin: 12/15/17 10:55 Dose: 1 amp Chlorhexidine Gluconate (Hibiclens For Decolonization -) 1 applic TP HS [facility] Last Admin: 12/14/17 21:26 Dose: 1 applic Heparin Sodium (Porcine) (Heparin -) 5,000 unit SQ TID [facility] Last Admin: 12/15/17 05:14 Dose: 5,000 unit Norepinephrine Bitartrate 4, (000 mcg/ Dextrose) 500 mls @ 15 mls/hr IV TITR [facility]; 2 MCG/MIN PRN Reason: Protocol Last Admin: 12/15/17 03:15 Dose: 1 mcg/min, 7.5 mls/hr Metronidazole (Flagyl 500mg Premixed Ivpb -) 500 mg in 100 mls @ 100 mls/hr IVPB Q8H-IV [facility] Last Admin: 12/15/17 10:05 Dose: 100 mls/hr Levetiracetam (Keppra Oral Solution -) 500 mg GT BID [facility] Last Admin: 12/14/17 21:26 Dose: 500 mg Mupirocin (Bactroban Ointment (For Decolonization) -) 1 applic NS BID [facility] Stop: 12/17/17 09:59 Last Admin: 12/15/17 10:05 Dose: 1 applic Pantoprazole Sodium (Protonix Iv) 40 mg IVPUSH DAILY [facility] Last Admin: 12/15/17 10:05 Dose: 40 mg Potassium Phos/Sodium Phos (Phos-Nak Packet -) 1 packet PO BID [facility] Last Admin: 12/15/17 10:04 Dose: 1 packet Vancomycin HCl (Vancomycin Oral Solution) 500 mg GT Q6HPO [facility] Last Admin: 12/15/17 05:14 Dose: 500 mg 67 year old woman with PMhx of CVS, Dementia, PEG with recent Cdiff admission who presented with hypotension and found to have acute sepsis with NICOLÁS #Acute Kidney Injury secondary to renal hypoprofusion +/- ATN in setting of Sepsis #Lactic acidosis #Colitis/C-diff #Sepsis with hypotension #Anemia #Hypokalemia #Hypernatremia Renal function improved and stable Trend BUN/Cr and electrolytes daily continue Abx as per ID PRN Lasix as needed for sob ICU monitoring and care keep MAP > 65, CVP 8-10 continue oral phos supplementation, may need IV if levels < 2 Give IV Mg Sulfate (total of 4g) consider change PPI to H2 iron as pt with persistent hypomagnesemia oral intake as tolerated Constantino Clemons DO
--- NOTE | 2017-12-15 11:37 | PN ---
Teaching Attending Note Name of Resident: Candy Pina ATTENDING PHYSICIAN STATEMENT I saw and evaluated the patient. I reviewed the resident's note and discussed the case with the resident. I agree with the resident's findings and plan as documented. SUBJECTIVE: Pt seen and examined in the ICU. Off pressors overnight. Some shortness of breath. No further fevers. OBJECTIVE: Last Vital Signs Temp Pulse Resp BP Pulse Ox 98.7 F 115 H 27 H 101/65 100 12/15/17 10:00 12/15/17 11:00 12/15/17 11:00 12/15/17 11:00 12/15/17 07:49 Intake & Output 12/12/17 12/13/17 12/14/17 12/15/17 23:59 23:59 23:59 23:59 Intake Total 5097 8928 7847.1 1010 Output Total 1975 1250 3330 200 Balance 3122 7678 4517.1 810 Weight 72.393 kg 72.121 kg Gen: mildly tachypneic at rest Heart: tachycardic, regular Lung: bilateral rhonchi Abd: softly distended Ext: + edema CBC, BMP 12/15/17 05:20 12/15/17 06:00 Active Medications Albuterol Sulfate (Ventolin 0.083% Nebulizer Soln -) 1 amp NEB Q4H PRN PRN Reason: SHORT OF BREATH/WHEEZING Last Admin: 12/14/17 10:35 Dose: 1 amp Albuterol/Ipratropium (Duoneb -) 1 amp NEB RQID [facility] Last Admin: 12/15/17 10:55 Dose: 1 amp Chlorhexidine Gluconate (Hibiclens For Decolonization -) 1 applic TP HS [facility] Last Admin: 12/14/17 21:26 Dose: 1 applic Heparin Sodium (Porcine) (Heparin -) 5,000 unit SQ TID [facility] Last Admin: 12/15/17 05:14 Dose: 5,000 unit Norepinephrine Bitartrate 4, (000 mcg/ Dextrose) 500 mls @ 15 mls/hr IV TITR [facility]; 2 MCG/MIN PRN Reason: Protocol Last Admin: 12/15/17 03:15 Dose: 1 mcg/min, 7.5 mls/hr Metronidazole (Flagyl 500mg Premixed Ivpb -) 500 mg in 100 mls @ 100 mls/hr IVPB Q8H-IV [facility] Last Admin: 12/15/17 10:05 Dose: 100 mls/hr Levetiracetam (Keppra Oral Solution -) 500 mg GT BID [facility] Last Admin: 12/14/17 21:26 Dose: 500 mg Mupirocin (Bactroban Ointment (For Decolonization) -) 1 applic NS BID [facility] Stop: 12/17/17 09:59 Last Admin: 12/15/17 10:05 Dose: 1 applic Pantoprazole Sodium (Protonix Iv) 40 mg IVPUSH DAILY [facility] Last Admin: 12/15/17 10:05 Dose: 40 mg Potassium Phos/Sodium Phos (Phos-Nak Packet -) 1 packet PO BID [facility] Last Admin: 12/15/17 10:04 Dose: 1 packet Vancomycin HCl (Vancomycin Oral Solution) 500 mg GT Q6HPO [facility] Last Admin: 12/15/17 11:29 Dose: 500 mg ASSESSMENT AND PLAN: C Diff Colitis r/o UTI Septic Shock resolving Acute Kidney Injury improving Lactic Acidosis resolved h/o CVA Dementia - continue antibiotics per ID - f/u cultures - monitor off pressors, maintain MAP >65 - lasix today if remains hemodynamically stable - monitor urine output, creatinine - aspiration precautions - O2 to keep SpO2 >90% - enteral feeds - DVT/GI prophylaxis - continue ICU monitoring critical care time spent in reviewing chart, evaluating patient and formulating plan 35 min
[2017-12-15] MEDS: levETIRAcetam 500 MG/5 ML ORAL SOLUTION (UNIT-DOSE CUPS) GT SCH ×2 (12:24→21:55)
--- NOTE | 2017-12-15 12:52 | PN ---
Progress Note, Physician History of Present Illness: Clinically better. Off pressors. Awake, alert, smiling. Leukocytosis improved. Still has green-colored diarrhea. - Current Medication List Current Medications: Active Medications Albuterol Sulfate (Ventolin 0.083% Nebulizer Soln -) 1 amp NEB Q4H PRN PRN Reason: SHORT OF BREATH/WHEEZING Last Admin: 12/14/17 10:35 Dose: 1 amp Albuterol/Ipratropium (Duoneb -) 1 amp NEB RQID [facility] Last Admin: 12/15/17 10:55 Dose: 1 amp Chlorhexidine Gluconate (Hibiclens For Decolonization -) 1 applic TP HS [facility] Last Admin: 12/14/17 21:26 Dose: 1 applic Heparin Sodium (Porcine) (Heparin -) 5,000 unit SQ TID [facility] Last Admin: 12/15/17 05:14 Dose: 5,000 unit Norepinephrine Bitartrate 4, (000 mcg/ Dextrose) 500 mls @ 15 mls/hr IV TITR [facility]; 2 MCG/MIN PRN Reason: Protocol Last Admin: 12/15/17 03:15 Dose: 1 mcg/min, 7.5 mls/hr Metronidazole (Flagyl 500mg Premixed Ivpb -) 500 mg in 100 mls @ 100 mls/hr IVPB Q8H-IV [facility] Last Admin: 12/15/17 10:05 Dose: 100 mls/hr Levetiracetam (Keppra Oral Solution -) 500 mg GT BID [facility] Last Admin: 12/15/17 12:24 Dose: 500 mg Mupirocin (Bactroban Ointment (For Decolonization) -) 1 applic NS BID [facility] Stop: 12/17/17 09:59 Last Admin: 12/15/17 10:05 Dose: 1 applic Potassium Phos/Sodium Phos (Phos-Nak Packet -) 1 packet PO BID [facility] Last Admin: 12/15/17 10:04 Dose: 1 packet Ranitidine HCl (Zantac Oral Solution -) 150 mg PO DAILY [facility] Vancomycin HCl (Vancomycin Oral Solution) 500 mg GT Q6HPO [facility] Last Admin: 12/15/17 11:29 Dose: 500 mg - Objective Vital Signs: Vital Signs Temperature 98.7 F 12/15/17 10:00 Pulse Rate 128 H 12/15/17 12:00 Respiratory Rate 30 H 12/15/17 12:00 Blood Pressure 93/72 12/15/17 12:00 O2 Sat by Pulse Oximetry (%) 100 12/15/17 07:49 Constitutional: Yes: No Distress Eyes: Yes: Conjunctiva Clear Labs: CBC, BMP 12/15/17 05:20 12/15/17 06:00 INR, PTT INR 1.37 (0.82-1.09) H 12/11/17 22:30 Laboratory Last Values WBC 33.9 K/mm3 (4.0-10.0) H* 12/15/17 05:20 RBC 2.69 M/mm3 (3.60-5.2) L 12/15/17 05:20 Hgb 8.0 GM/dL (10.7-15.3) L 12/15/17 05:20 Hct 24.1 % (32.4-45.2) L 12/15/17 05:20 MCV 89.5 fl (80-96) 12/15/17 05:20 MCH 29.6 pg (25.7-33.7) 12/15/17 05:20 MCHC 33.1 g/dl (32.0-36.0) 12/15/17 05:20 RDW 17.4 % (11.6-15.6) H 12/15/17 05:20 Plt Count 254 K/MM3 (134-434) 12/15/17 05:20 MPV 8.5 fl (7.5-11.1) 12/15/17 05:20 Total Counted 100 12/12/17 03:45 Neutrophils % No Result Required. 12/12/17 03:45 Neutrophils % (Manual) No Result Required. 12/13/17 05:18 Band Neutrophils % 8.0 % (0-10) 12/12/17 03:45 Lymphocytes % No Result Required. 12/12/17 03:45 Lymphocytes % (Manual) 8.0 % (8-40) 12/12/17 03:45 Monocytes % (Manual) 2 % (3.8-10.2) L 12/12/17 03:45 Basophils % (Manual) 1.0 % (0-2.0) 12/11/17 22:30 Myelocytes % (Man) 3 % (0-2) H 12/12/17 03:45 Nucleated RBC % 1 % (0-0) H 12/11/17 22:30 Metamyelocytes 2 % (0-2) 12/12/17 03:45 Differential Comment Man diff performed 12/11/17 22:30 Platelet Estimate Adequate 12/12/17 03:45 Platelet Comment Giant platelets 12/11/17 22:30 Polychromasia 1+ 12/11/17 22:30 Anisocytosis 1+ 12/11/17 22:30 Macrocytosis 1+ 12/11/17 22:30 PT with INR 15.50 SEC (9.7-13.0) H 12/11/17 22:30 INR 1.37 (0.82-1.09) H 12/11/17 22:30 PTT (Actin FS) 23.2 SECONDS (26.9-34.4) L 12/11/17 22:30 Anticoagulation Therapy No Result Required. 12/11/17 23:15 Puncture Site Right radial 12/12/17 12:20 ABG pH 7.39 (7.35-7.45) 12/12/17 12:20 ABG pCO2 at Pt Temp 27.4 mmHg (35-45) L 12/12/17 12:20 ABG pO2 at Pt Temp 89.1 mmHg (80-100) 12/12/17 12:20 ABG HCO3 16.2 meq/L (22-26) L 12/12/17 12:20 ABG O2 Sat (Measured) 96.5 % (90-98.9) 12/12/17 12:20 ABG O2 Content 10.8 % vol (15-22) L 12/12/17 12:20 ABG Base Excess -7.4 meq/l (-2-2) L 12/12/17 12:20 Amando Test Positive 12/12/17 12:20 Carboxyhemoglobin 1.6 gm% (0.5-2.0) 12/11/17 23:15 Methemoglobin 1.5 % (0.4-1.5) 12/11/17 23:15 O2 Delivery Device Nasal cannula 12/12/17 12:20 Oxygen Flow Rate 3l 12/12/17 12:20 Vent Mode No Result Required. 12/11/17 23:15 Vent Rate No Result Required. 12/11/17 23:15 Mechanical Rate No 12/12/17 12:20 PEEP 0.0 cmH2O 12/12/17 12:20 Pressure Support Vent No Result Required. 12/11/17 23:15 Sodium 143 mmol/L (136-145) 12/15/17 06:00 Potassium 4.1 mmol/L (3.5-5.1) 12/15/17 06:00 Chloride 114 mmol/L (98-107) H 12/15/17 06:00 Carbon Dioxide 23 mmol/L (21-32) 12/15/17 06:00 Anion Gap 6 (8-16) L 12/15/17 06:00 BUN 6 mg/dL (7-18) L 12/15/17 06:00 Creatinine 0.5 mg/dL (0.55-1.02) L 12/15/17 06:00 Creat Clearance w eGFR > 60 (>60) 12/14/17 05:55 Random Glucose 95 mg/dL (74-106) 12/15/17 06:00 Lactic Acid 1.2 mmol/L (0.0-2.0) 12/15/17 06:00 Calcium 7.2 mg/dL (8.5-10.1) L 12/15/17 06:00 Phosphorus 2.2 mg/dL (2.5-4.9) L 12/15/17 06:00 Magnesium 1.6 mg/dL (1.8-2.4) L 12/15/17 06:00 Total Bilirubin 0.2 mg/dL (0.2-1.0) 12/14/17 05:55 AST 19 U/L (15-37) 12/14/17 05:55 ALT < 6 U/L (12-78) L 12/14/17 05:55 Alkaline Phosphatase 80 U/L (45-117) 12/14/17 05:55 Total Protein 4.5 g/dl (6.4-8.2) L 12/14/17 05:55 Albumin 1.2 g/dl (3.4-5.0) L 12/14/17 05:55 Urine Color Radha 12/11/17 23:50 Urine Appearance Cloudy 12/11/17 23:50 Urine pH 5.0 (5.0-8.0) 12/11/17 23:50 Ur Specific Terrell 1.026 (1.001-1.035) 12/11/17 23:50 Urine Protein 1+ (NEGATIVE) H 12/11/17 23:50 Urine Glucose (UA) Negative (NEGATIVE) 12/11/17 23:50 Urine Ketones Negative (NEGATIVE) 12/11/17 23:50 Urine Blood Negative (NEGATIVE) 12/11/17 23:50 Urine Nitrite Negative (NEGATIVE) 12/11/17 23:50 Urine Bilirubin Negative (<2.0 mg/dL) 12/11/17 23:50 Urine Urobilinogen 2.0 mg/dL (0.2-1.0) H 12/11/17 23:50 Ur Leukocyte Esterase 2+ (NEGATIVE) H 12/11/17 23:50 Urine WBC (Auto) 71 /hpf (3-5) 12/11/17 23:50 Urine RBC (Auto) 3 /hpf (0-3) 12/11/17 23:50 Ur Epithelial Cells Rare /HPF (FEW) 12/11/17 23:50 Hyaline Casts 11 /lpf 12/11/17 23:50 Urine Mucus Rare 12/11/17 23:50 U Random Total Protein 63 mg/dl (5-11.9) H 12/12/17 20:45 Ur Random Sodium 7 MMOL/L 12/12/17 20:45 Urine Creatinine 118.0 mg/dL (20-320) 12/12/17 20:45 Stool Occult Blood Negative (NEGATIVE) 12/12/17 04:30 Blood Type A POSITIVE 12/12/17 04:10 Antibody Screen Negative 12/12/17 04:10 Problem List - Problems (1) Colitis Code(s): K52.9 - NONINFECTIVE GASTROENTERITIS AND COLITIS, UNSPECIFIED (2) Colitis presumed infectious Code(s): K52.9 - NONINFECTIVE GASTROENTERITIS AND COLITIS, UNSPECIFIED (3) Clostridium difficile diarrhea Code(s): A04.72 - ENTEROCOLITIS D/T CLOSTRIDIUM DIFFICILE, NOT SPCF RECUR Assessment/Plan Clinically better. leukocytosis improved. Off pressors. Continue current care.
--- NOTE | 2017-12-15 17:04 | PN ---
Progress Note, Physician History of Present Illness: stable jeff chew says she is no distress awake and alert wbc trending down off of pressors - Current Medication List Current Medications: Active Medications Albuterol Sulfate (Ventolin 0.083% Nebulizer Soln -) 1 amp NEB Q4H PRN PRN Reason: SHORT OF BREATH/WHEEZING Last Admin: 12/14/17 10:35 Dose: 1 amp Albuterol/Ipratropium (Duoneb -) 1 amp NEB RQID [facility] Last Admin: 12/15/17 16:11 Dose: 1 amp Chlorhexidine Gluconate (Hibiclens For Decolonization -) 1 applic TP HS [facility] Last Admin: 12/14/17 21:26 Dose: 1 applic Furosemide (Lasix Injection -) 40 mg IVPUSH ONCE ONE Stop: 12/15/17 18:01 Heparin Sodium (Porcine) (Heparin -) 5,000 unit SQ TID [facility] Last Admin: 12/15/17 14:32 Dose: 5,000 unit Metronidazole (Flagyl 500mg Premixed Ivpb -) 500 mg in 100 mls @ 100 mls/hr IVPB Q8H-IV [facility] Last Admin: 12/15/17 10:05 Dose: 100 mls/hr Levetiracetam (Keppra Oral Solution -) 500 mg GT BID [facility] Last Admin: 12/15/17 12:24 Dose: 500 mg Mupirocin (Bactroban Ointment (For Decolonization) -) 1 applic NS BID [facility] Stop: 12/17/17 09:59 Last Admin: 12/15/17 10:05 Dose: 1 applic Potassium Phos/Sodium Phos (Phos-Nak Packet -) 1 packet PO BID [facility] Last Admin: 12/15/17 10:04 Dose: 1 packet Ranitidine HCl (Zantac Oral Solution -) 150 mg PO DAILY [facility] Vancomycin HCl (Vancomycin Oral Solution) 500 mg GT Q6HPO [facility] Last Admin: 12/15/17 11:29 Dose: 500 mg - Objective Vital Signs: Vital Signs Temperature 98.5 F 12/15/17 14:00 Pulse Rate 112 H 12/15/17 16:00 Respiratory Rate 27 H 12/15/17 16:00 Blood Pressure 81/63 12/15/17 16:00 O2 Sat by Pulse Oximetry (%) 100 12/15/17 07:49 Constitutional: Yes: No Distress, Calm Cardiovascular: Yes: Regular Rate and Rhythm Respiratory: Yes: Regular, CTA Bilaterally Gastrointestinal: Yes: Normal Bowel Sounds, Soft Musculoskeletal: Yes: WNL Extremities: Yes: WNL Neurological: Yes: Alert, Oriented Psychiatric: Yes: Alert, Oriented Labs: CBC, BMP 12/15/17 05:20 12/15/17 06:00 INR, PTT INR 1.37 (0.82-1.09) H 12/11/17 22:30 Assessment/Plan wbc trending down Problem List - Problem (1) MODS (multiple organ dysfunction syndrome) Code(s): UPR7128 - (2) Severe sepsis Code(s): A41.9 - SEPSIS, UNSPECIFIED ORGANISM; R65.20 - SEVERE SEPSIS WITHOUT SEPTIC SHOCK (3) Clostridium difficile diarrhea Code(s): A04.72 - ENTEROCOLITIS D/T CLOSTRIDIUM DIFFICILE, NOT SPCF RECUR (4) Hypernatremia Code(s): E87.0 - HYPEROSMOLALITY AND HYPERNATREMIA (5) Chronic respiratory failure Code(s): J96.10 - CHRONIC RESPIRATORY FAILURE, UNSP W HYPOXIA OR HYPERCAPNIA (6) Seizures Code(s): R56.9 - UNSPECIFIED CONVULSIONS (7) Bladder mass Code(s): N32.89 - OTHER SPECIFIED DISORDERS OF BLADDER (8) MDD (major depressive disorder) Code(s): F32.9 - MAJOR DEPRESSIVE DISORDER, SINGLE EPISODE, UNSPECIFIED (9) Hx TIA/stroke w/o resid Code(s): Z86.73 - PRSNL HX OF TIA (TIA), AND CEREB INFRC W/O RESID DEFICITS (10) HTN (hypertension) Code(s): I10 - ESSENTIAL (PRIMARY) HYPERTENSION (11) HLD (hyperlipidemia) Code(s): E78.5 - HYPERLIPIDEMIA, UNSPECIFIED (12) Functional quadriplegia Code(s): R53.2 - FUNCTIONAL QUADRIPLEGIA (13) Prolonged QT interval Code(s): R94.31 - ABNORMAL ELECTROCARDIOGRAM [ECG] [EKG] (14) Anemia Code(s): D64.9 - ANEMIA, UNSPECIFIED Qualifiers: Anemia type: unspecified type Qualified Code(s): D64.9 - Anemia, unspecified plan continue current mgmt cx reports noted continue hydration pressors as needed continue to monitor wbc rest as per icu patient improving cc time 40 min
[2017-12-15] MEDS: CHLORHEXIDINE GLUCONATE 4% CLEANSER FOR DECOLONIZATION TP SCH (21:55)
[2017-12-16] MEDS ORDERED: NOREPINEPHRINE BITARTRATE 4 MG/4 ML ML IV ONE (02:19)
[2017-12-16 06:31] LABS: MCH 28.4 pg (25.7-33.7); MCHC 33.4 g/dl (32.0-36.0); MEAN CELL VOLUME 84.9 fl (80-96); MEAN PLT VOLUME 7.7 fl (7.5-11.1); PLATELET COUNT 330 K/MM3 (134-434); RBC 2.82 M/mm3 (3.60-5.2); RDW 17.4 % (11.6-15.6)
[2017-12-16] MEDS: HEPARIN NA (PORCINE) 5,000 UNITS/ML 1ML VIAL SQ SCH ×3 (06:33→22:14)
[2017-12-16] MEDS: VANCOMYCIN 250 MG/5 ML ORAL SOLUTION GT SCH ×4 (06:33→23:55)
[2017-12-16 07:15] LABS: CHLORIDE 116 mmol/L (98-107); POTASSIUM 3.8 mmol/L (3.5-5.1); SODIUM 146 mmol/L (136-145)
[2017-12-16 07:28] LABS: ALBUMIN 1.4 g/dl (3.4-5.0); ALK PHOS 65 U/L (45-117); ANION GAP 8 (8-16); BILIRUBIN,TOTAL 0.6 mg/dL (0.2-1.0); BLOOD UREA NITROGEN 6 mg/dL (7-18); CALCIUM 7.4 mg/dL (8.5-10.1); CO2 22 mmol/L (21-32); CREATININE 0.5 mg/dL (0.55-1.02); GLUCOSE,RANDOM 159 mg/dL (74-106); SGOT/AST 21 U/L (15-37); SGPT/ALT 10 U/L (12-78); TOT PROT 4.5 g/dl (6.4-8.2)
[2017-12-16] MEDS ORDERED: NOREPINEPHRINE BITARTRATE 8,000 MCG in DEXTROSE 5%-WATER - 492 ML IV SCH (07:45)
[2017-12-16] MEDS: ALBUTEROL SO4 2.5/IPRATROPIUM 0.5 INH SOL 3 ML VIAL.NEB. NEB SCH ×4 (08:35→21:30)
--- NOTE | 2017-12-16 09:06 | PN ---
Progress Note (short form) - Note Progress Note: patient seen and examined today in the ICU. Chart reviewed Patient is much more alert and awake Comfortable Denies pain Afebrile Still on pressor--levophed blood pressure Better Vital Signs Temp 98.0 F 12/16/17 02:00 Pulse 102 H 12/16/17 06:00 Resp 30 H 12/16/17 06:00 BP 96/65 12/16/17 06:00 Pulse Ox 98 12/15/17 21:00 Intake & Output 12/15/17 12/15/17 12/16/17 11:59 23:59 11:59 Intake Total 1010 1052 242 Output Total 200 1900 100 Balance 810 -848 142 Intake: IV 860 516 72 Levophed - 4,000 Mcg In 60 6 D5w - 496 ml @ 2 MCG/MIN 15 mls/hr IV TITR [facility] Rx# :[id number] NS+20 MEQ KCL - 20 meq In 800 510 1,000 ml @ 100 mls/hr IV ASDIR [facility] Rx#: [id number] levophed 72 IVPB 100 196 Tube Feeding 50 280 140 Tube Irrigant 60 30 Output: Urine 200 1900 100 Handy 200 1900 100 Other: Voiding Method Indwelling Catheter Indwelling Catheter Bowel Movement No Active Medications Albuterol Sulfate (Ventolin 0.083% Nebulizer Soln -) 1 amp NEB Q4H PRN PRN Reason: SHORT OF BREATH/WHEEZING Last Admin: 12/14/17 10:35 Dose: 1 amp Albuterol/Ipratropium (Duoneb -) 1 amp NEB RQID [facility] Last Admin: 12/16/17 08:35 Dose: 1 amp Chlorhexidine Gluconate (Hibiclens For Decolonization -) 1 applic TP HS [facility] Last Admin: 12/15/17 21:55 Dose: 1 applic Heparin Sodium (Porcine) (Heparin -) 5,000 unit SQ TID [facility] Last Admin: 12/16/17 06:33 Dose: 5,000 unit Metronidazole (Flagyl 500mg Premixed Ivpb -) 500 mg in 100 mls @ 100 mls/hr IVPB Q8H-IV [facility] Last Admin: 12/16/17 01:19 Dose: 100 mls/hr Norepinephrine Bitartrate 8, (000 mcg/ Dextrose) 500 mls @ 18.75 mls/hr IV TITR [facility]; 5 MCG/MIN PRN Reason: Protocol Last Admin: 12/16/17 03:00 Dose: 5 mcg/min, 18.75 mls/hr Levetiracetam (Keppra Oral Solution -) 500 mg GT BID [facility] Last Admin: 12/15/17 21:55 Dose: 500 mg Mupirocin (Bactroban Ointment (For Decolonization) -) 1 applic NS BID [facility] Stop: 12/17/17 09:59 Last Admin: 12/15/17 21:54 Dose: 1 applic Potassium Phos/Sodium Phos (Phos-Nak Packet -) 1 packet PO BID [facility] Last Admin: 12/15/17 21:55 Dose: 1 packet Ranitidine HCl (Zantac Oral Solution -) 150 mg PO DAILY [facility] Vancomycin HCl (Vancomycin Oral Solution) 500 mg GT Q6HPO [facility] Last Admin: 12/16/17 06:33 Dose: 500 mg CBC, BMP 12/16/17 06:10 12/16/17 06:10 Microbiology 12/11/17 22:27 Blood Culture - Preliminary Blood - Peripheral Venous NO GROWTH OBTAINED AFTER 96 HOURS, INCUBATION TO CONTINUE FOR 1 DAYS. 12/11/17 22:27 Blood Culture - Preliminary Blood - Peripheral Venous NO GROWTH OBTAINED AFTER 96 HOURS, INCUBATION TO CONTINUE FOR 1 DAYS. physical exam Constitutional: Yes: No Distress.awake Cardiovascular: Yes: Regular Rate and Rhythm Respiratory: Yes: Diminished Gastrointestinal: Yes: Normal Bowel Sounds, Soft. No: Tenderness Edema: Yes Edema: LLE: Trace, RLE: Trace Assessment/Plan clinically improved significantly continue present care Antibiotics Taper off Levophed slowly as tolerated Monitor lites closely Discussed with nursing staff Will follow Problem List - Problems (1) Clostridium difficile diarrhea Code(s): A04.72 - ENTEROCOLITIS D/T CLOSTRIDIUM DIFFICILE, NOT SPCF RECUR (2) Functional quadriplegia Code(s): R53.2 - FUNCTIONAL QUADRIPLEGIA (3) Hx TIA/stroke w/o resid Code(s): Z86.73 - PRSNL HX OF TIA (TIA), AND CEREB INFRC W/O RESID DEFICITS (4) Severe sepsis Code(s): A41.9 - SEPSIS, UNSPECIFIED ORGANISM; R65.20 - SEVERE SEPSIS WITHOUT SEPTIC SHOCK
[2017-12-16] MEDS ORDERED: PT OWN MED DRAWER 7, Y5N ONE (09:13)
[2017-12-16] MEDS: NAPH,MB-DB/K PH,MBDB POWDER PACKET PO SCH ×2 (09:25→22:14)
[2017-12-16] MEDS: levETIRAcetam 500 MG/5 ML ORAL SOLUTION (UNIT-DOSE CUPS) GT SCH ×2 (09:25→22:15)
[2017-12-16] MEDS: MUPIROCIN 2% TOPICAL OINTMENT FOR DECOLONIZATION NS SCH ×2 (09:26→22:14)
[2017-12-16] MEDS: RANITIDINE HCL 150 MG/10 ML UNIT-DOSE PO SCH (09:26)
--- NOTE | 2017-12-16 12:22 | PN ---
Teaching Attending Note Name of Resident: Candy Pina ATTENDING PHYSICIAN STATEMENT I saw and evaluated the patient. I reviewed the resident's note and discussed the case with the resident. I agree with the resident's findings and plan as documented. SUBJECTIVE: Patient seen and examined in the ICU. Currently on pressors, 5 mcq NE. Denies SOB or CP. No fever. CXR: Layering right effusion OBJECTIVE: Intake & Output 12/13/17 12/14/17 12/15/17 12/16/17 23:59 23:59 23:59 23:59 Intake Total 8928 7847.1 2062 242 Output Total 1250 3330 2100 100 Balance 7678 4517.1 -38 142 Weight 159 lb Last Vital Signs Temp Pulse Resp BP Pulse Ox 98.0 F 102 H 30 H 96/65 98 12/16/17 02:00 12/16/17 06:00 12/16/17 06:00 12/16/17 06:00 12/15/17 21:00 Active Medications Albuterol Sulfate (Ventolin 0.083% Nebulizer Soln -) 1 amp NEB Q4H PRN PRN Reason: SHORT OF BREATH/WHEEZING Last Admin: 12/14/17 10:35 Dose: 1 amp Albuterol/Ipratropium (Duoneb -) 1 amp NEB RQID [facility] Last Admin: 12/16/17 11:24 Dose: 1 amp Chlorhexidine Gluconate (Hibiclens For Decolonization -) 1 applic TP HS [facility] Last Admin: 12/15/17 21:55 Dose: 1 applic Heparin Sodium (Porcine) (Heparin -) 5,000 unit SQ TID [facility] Last Admin: 12/16/17 06:33 Dose: 5,000 unit Metronidazole (Flagyl 500mg Premixed Ivpb -) 500 mg in 100 mls @ 100 mls/hr IVPB Q8H-IV [facility] Last Admin: 12/16/17 09:26 Dose: 100 mls/hr Norepinephrine Bitartrate 8, (000 mcg/ Dextrose) 500 mls @ 18.75 mls/hr IV TITR [facility]; 5 MCG/MIN PRN Reason: Protocol Last Admin: 12/16/17 03:00 Dose: 5 mcg/min, 18.75 mls/hr Levetiracetam (Keppra Oral Solution -) 500 mg GT BID [facility] Last Admin: 12/16/17 09:25 Dose: 500 mg Mupirocin (Bactroban Ointment (For Decolonization) -) 1 applic NS BID [facility] Stop: 12/17/17 09:59 Last Admin: 12/16/17 09:26 Dose: 1 applic Potassium Phos/Sodium Phos (Phos-Nak Packet -) 1 packet PO BID [facility] Last Admin: 12/16/17 09:25 Dose: 1 packet Ranitidine HCl (Zantac Oral Solution -) 150 mg PO DAILY [facility] Last Admin: 12/16/17 09:26 Dose: 150 mg Vancomycin HCl (Vancomycin Oral Solution) 500 mg GT Q6HPO [facility] Last Admin: 12/16/17 06:33 Dose: 500 mg Gen: Awake and interactive, NAD Heart: tachycardic, regular Lung: bibasilar rhonchi Abd: softly distended, (+) BS Ext: (+) edema Laboratory Results - last 24 hr 12/16/17 12/16/17 12/16/17 06:10 06:10 06:10 WBC 24.0 H RBC 2.82 L Hgb 8.0 L Hct 24.0 L MCV 84.9 MCH 28.4 MCHC 33.4 RDW 17.4 H Plt Count 330 D MPV 7.7 Sodium 146 H Potassium 3.8 Chloride 116 H Carbon Dioxide 22 Anion Gap 8 BUN 6 L Creatinine 0.5 L Creat Clearance w eGFR > 60 Random Glucose 159 H Lactic Acid 1.1 Calcium 7.4 L Total Bilirubin 0.6 D AST 21 ALT 10 L Alkaline Phosphatase 65 Total Protein 4.5 L Albumin 1.4 L ASSESSMENT AND PLAN: C Diff Colitis Septic Shock resolving Acute Kidney Injury improving Lactic Acidosis resolved h/o CVA Dementia - Continue antibiotics per ID - Wean pressors as tolerated - Hold lasix: Trial of IVF - Monitor urine output, creatinine - Aspiration precautions - O2 to keep SpO2 >90% - Enteral feeds - DVT/GI prophylaxis - Continue ICU monitoring Dr Early Critical care time spent in reviewing chart, evaluating patient and formulating plan 36 min
--- NOTE | 2017-12-16 13:24 | PN ---
Progress Note, Physician History of Present Illness: Clinically improved. Awake, alert, smiling, communicating. Leukocytosis improved. - Current Medication List Current Medications: Active Medications Albuterol Sulfate (Ventolin 0.083% Nebulizer Soln -) 1 amp NEB Q4H PRN PRN Reason: SHORT OF BREATH/WHEEZING Last Admin: 12/14/17 10:35 Dose: 1 amp Albuterol/Ipratropium (Duoneb -) 1 amp NEB RQID [facility] Last Admin: 12/16/17 11:24 Dose: 1 amp Chlorhexidine Gluconate (Hibiclens For Decolonization -) 1 applic TP HS [facility] Last Admin: 12/15/17 21:55 Dose: 1 applic Heparin Sodium (Porcine) (Heparin -) 5,000 unit SQ TID [facility] Last Admin: 12/16/17 06:33 Dose: 5,000 unit Metronidazole (Flagyl 500mg Premixed Ivpb -) 500 mg in 100 mls @ 100 mls/hr IVPB Q8H-IV [facility] Last Admin: 12/16/17 09:26 Dose: 100 mls/hr Norepinephrine Bitartrate 8, (000 mcg/ Dextrose) 500 mls @ 18.75 mls/hr IV TITR [facility]; 5 MCG/MIN PRN Reason: Protocol Last Admin: 12/16/17 03:00 Dose: 5 mcg/min, 18.75 mls/hr Levetiracetam (Keppra Oral Solution -) 500 mg GT BID [facility] Last Admin: 12/16/17 09:25 Dose: 500 mg Mupirocin (Bactroban Ointment (For Decolonization) -) 1 applic NS BID [facility] Stop: 12/17/17 09:59 Last Admin: 12/16/17 09:26 Dose: 1 applic Potassium Phos/Sodium Phos (Phos-Nak Packet -) 1 packet PO BID [facility] Last Admin: 12/16/17 09:25 Dose: 1 packet Ranitidine HCl (Zantac Oral Solution -) 150 mg PO DAILY [facility] Last Admin: 12/16/17 09:26 Dose: 150 mg Vancomycin HCl (Vancomycin Oral Solution) 500 mg GT Q6HPO [facility] Last Admin: 12/16/17 13:05 Dose: 500 mg - Objective Vital Signs: Vital Signs Temperature 98.0 F 12/16/17 02:00 Pulse Rate 111 H 12/16/17 12:00 Respiratory Rate 30 H 12/16/17 12:00 Blood Pressure 107/74 12/16/17 12:00 O2 Sat by Pulse Oximetry (%) 98 12/15/17 21:00 Labs: CBC, BMP 12/16/17 06:10 12/16/17 06:10 INR, PTT INR 1.37 (0.82-1.09) H 12/11/17 22:30 Laboratory Last Values WBC 24.0 K/mm3 (4.0-10.0) H 12/16/17 06:10 RBC 2.82 M/mm3 (3.60-5.2) L 12/16/17 06:10 Hgb 8.0 GM/dL (10.7-15.3) L 12/16/17 06:10 Hct 24.0 % (32.4-45.2) L 12/16/17 06:10 MCV 84.9 fl (80-96) 12/16/17 06:10 MCH 28.4 pg (25.7-33.7) 12/16/17 06:10 MCHC 33.4 g/dl (32.0-36.0) 12/16/17 06:10 RDW 17.4 % (11.6-15.6) H 12/16/17 06:10 Plt Count 330 K/MM3 (134-434) D 12/16/17 06:10 MPV 7.7 fl (7.5-11.1) 12/16/17 06:10 Total Counted 100 12/12/17 03:45 Neutrophils % No Result Required. 12/12/17 03:45 Neutrophils % (Manual) No Result Required. 12/13/17 05:18 Band Neutrophils % 8.0 % (0-10) 12/12/17 03:45 Lymphocytes % No Result Required. 12/12/17 03:45 Lymphocytes % (Manual) 8.0 % (8-40) 12/12/17 03:45 Monocytes % (Manual) 2 % (3.8-10.2) L 12/12/17 03:45 Basophils % (Manual) 1.0 % (0-2.0) 12/11/17 22:30 Myelocytes % (Man) 3 % (0-2) H 12/12/17 03:45 Nucleated RBC % 1 % (0-0) H 12/11/17 22:30 Metamyelocytes 2 % (0-2) 12/12/17 03:45 Differential Comment Man diff performed 12/11/17 22:30 Platelet Estimate Adequate 12/12/17 03:45 Platelet Comment Giant platelets 12/11/17 22:30 Polychromasia 1+ 12/11/17 22:30 Anisocytosis 1+ 12/11/17 22:30 Macrocytosis 1+ 12/11/17 22:30 PT with INR 15.50 SEC (9.7-13.0) H 12/11/17 22:30 INR 1.37 (0.82-1.09) H 12/11/17 22:30 PTT (Actin FS) 23.2 SECONDS (26.9-34.4) L 12/11/17 22:30 Anticoagulation Therapy No Result Required. 12/11/17 23:15 Puncture Site Right radial 12/12/17 12:20 ABG pH 7.39 (7.35-7.45) 12/12/17 12:20 ABG pCO2 at Pt Temp 27.4 mmHg (35-45) L 12/12/17 12:20 ABG pO2 at Pt Temp 89.1 mmHg (80-100) 12/12/17 12:20 ABG HCO3 16.2 meq/L (22-26) L 12/12/17 12:20 ABG O2 Sat (Measured) 96.5 % (90-98.9) 12/12/17 12:20 ABG O2 Content 10.8 % vol (15-22) L 12/12/17 12:20 ABG Base Excess -7.4 meq/l (-2-2) L 12/12/17 12:20 Amando Test Positive 12/12/17 12:20 Carboxyhemoglobin 1.6 gm% (0.5-2.0) 12/11/17 23:15 Methemoglobin 1.5 % (0.4-1.5) 12/11/17 23:15 O2 Delivery Device Nasal cannula 12/12/17 12:20 Oxygen Flow Rate 3l 12/12/17 12:20 Vent Mode No Result Required. 12/11/17 23:15 Vent Rate No Result Required. 12/11/17 23:15 Mechanical Rate No 12/12/17 12:20 PEEP 0.0 cmH2O 12/12/17 12:20 Pressure Support Vent No Result Required. 12/11/17 23:15 Sodium 146 mmol/L (136-145) H 12/16/17 06:10 Potassium 3.8 mmol/L (3.5-5.1) 12/16/17 06:10 Chloride 116 mmol/L (98-107) H 12/16/17 06:10 Carbon Dioxide 22 mmol/L (21-32) 12/16/17 06:10 Anion Gap 8 (8-16) 12/16/17 06:10 BUN 6 mg/dL (7-18) L 12/16/17 06:10 Creatinine 0.5 mg/dL (0.55-1.02) L 12/16/17 06:10 Creat Clearance w eGFR > 60 (>60) 12/16/17 06:10 Random Glucose 159 mg/dL (74-106) H 12/16/17 06:10 Lactic Acid 1.1 mmol/L (0.0-2.0) 12/16/17 06:10 Calcium 7.4 mg/dL (8.5-10.1) L 12/16/17 06:10 Phosphorus 2.2 mg/dL (2.5-4.9) L 12/15/17 06:00 Magnesium 1.6 mg/dL (1.8-2.4) L 12/15/17 06:00 Total Bilirubin 0.6 mg/dL (0.2-1.0) D 12/16/17 06:10 AST 21 U/L (15-37) 12/16/17 06:10 ALT 10 U/L (12-78) L 12/16/17 06:10 Alkaline Phosphatase 65 U/L (45-117) 12/16/17 06:10 Total Protein 4.5 g/dl (6.4-8.2) L 12/16/17 06:10 Albumin 1.4 g/dl (3.4-5.0) L 12/16/17 06:10 Urine Color Radha 12/11/17 23:50 Urine Appearance Cloudy 12/11/17 23:50 Urine pH 5.0 (5.0-8.0) 12/11/17 23:50 Ur Specific Atkinson 1.026 (1.001-1.035) 12/11/17 23:50 Urine Protein 1+ (NEGATIVE) H 12/11/17 23:50 Urine Glucose (UA) Negative (NEGATIVE) 12/11/17 23:50 Urine Ketones Negative (NEGATIVE) 12/11/17 23:50 Urine Blood Negative (NEGATIVE) 12/11/17 23:50 Urine Nitrite Negative (NEGATIVE) 12/11/17 23:50 Urine Bilirubin Negative (<2.0 mg/dL) 12/11/17 23:50 Urine Urobilinogen 2.0 mg/dL (0.2-1.0) H 12/11/17 23:50 Ur Leukocyte Esterase 2+ (NEGATIVE) H 12/11/17 23:50 Urine WBC (Auto) 71 /hpf (3-5) 12/11/17 23:50 Urine RBC (Auto) 3 /hpf (0-3) 12/11/17 23:50 Ur Epithelial Cells Rare /HPF (FEW) 12/11/17 23:50 Hyaline Casts 11 /lpf 12/11/17 23:50 Urine Mucus Rare 12/11/17 23:50 U Random Total Protein 63 mg/dl (5-11.9) H 12/12/17 20:45 Ur Random Sodium 7 MMOL/L 12/12/17 20:45 Urine Creatinine 118.0 mg/dL (20-320) 12/12/17 20:45 Stool Occult Blood Negative (NEGATIVE) 12/12/17 04:30 Blood Type A POSITIVE 12/12/17 04:10 Antibody Screen Negative 12/12/17 04:10 Problem List - Problems (1) Colitis Code(s): K52.9 - NONINFECTIVE GASTROENTERITIS AND COLITIS, UNSPECIFIED (2) Colitis presumed infectious Code(s): K52.9 - NONINFECTIVE GASTROENTERITIS AND COLITIS, UNSPECIFIED (3) Clostridium difficile diarrhea Code(s): A04.72 - ENTEROCOLITIS D/T CLOSTRIDIUM DIFFICILE, NOT SPCF RECUR Assessment/Plan Clinically better. Continue current care.
--- NOTE | 2017-12-16 13:54 | PN ---
Progress Note (short form) - Note Progress Note: Renal follow up for NICOLÁS Pt seen and examined at the bedside awake and alert asking for ice chips diarrhea resolving no chest pain, sob, abd pain NAD, sleeping tachycardic, no murmur Dec BS distended abd no LE edema CBC, BMP 12/15/17 05:20 12/15/17 06:00 Current Medications Albuterol Sulfate (Ventolin 0.083% Nebulizer Soln -) 1 amp NEB Q4H PRN PRN Reason: SHORT OF BREATH/WHEEZING Last Admin: 12/14/17 10:35 Dose: 1 amp Albuterol/Ipratropium (Duoneb -) 1 amp NEB RQID [facility] Last Admin: 12/15/17 10:55 Dose: 1 amp Chlorhexidine Gluconate (Hibiclens For Decolonization -) 1 applic TP HS [facility] Last Admin: 12/14/17 21:26 Dose: 1 applic Heparin Sodium (Porcine) (Heparin -) 5,000 unit SQ TID [facility] Last Admin: 12/15/17 05:14 Dose: 5,000 unit Norepinephrine Bitartrate 4, (000 mcg/ Dextrose) 500 mls @ 15 mls/hr IV TITR [facility]; 2 MCG/MIN PRN Reason: Protocol Last Admin: 12/15/17 03:15 Dose: 1 mcg/min, 7.5 mls/hr Metronidazole (Flagyl 500mg Premixed Ivpb -) 500 mg in 100 mls @ 100 mls/hr IVPB Q8H-IV [facility] Last Admin: 12/15/17 10:05 Dose: 100 mls/hr Levetiracetam (Keppra Oral Solution -) 500 mg GT BID [facility] Last Admin: 12/14/17 21:26 Dose: 500 mg Mupirocin (Bactroban Ointment (For Decolonization) -) 1 applic NS BID [facility] Stop: 12/17/17 09:59 Last Admin: 12/15/17 10:05 Dose: 1 applic Pantoprazole Sodium (Protonix Iv) 40 mg IVPUSH DAILY [facility] Last Admin: 12/15/17 10:05 Dose: 40 mg Potassium Phos/Sodium Phos (Phos-Nak Packet -) 1 packet PO BID [facility] Last Admin: 12/15/17 10:04 Dose: 1 packet Vancomycin HCl (Vancomycin Oral Solution) 500 mg GT Q6HPO [facility] Last Admin: 12/15/17 05:14 Dose: 500 mg 67 year old woman with PMhx of CVS, Dementia, PEG with recent Cdiff admission who presented with hypotension and found to have acute sepsis with NICOLÁS #Acute Kidney Injury secondary to renal hypoprofusion +/- ATN in setting of Sepsis #Lactic acidosis #Colitis/C-diff #Sepsis with hypotension #Anemia #Hypokalemia #Hypernatremia Renal function stable at this time pt with large right effusion, PRN Lasix as per ICU team check Mg, Phos levels daily, added to am labs today Trend CBC increase free water intake Constantino Clemons DO
--- NOTE | 2017-12-16 16:04 | PN ---
Progress Note, Physician History of Present Illness: stable dong well improving wbc trending downwards - Current Medication List Current Medications: Active Medications Albuterol Sulfate (Ventolin 0.083% Nebulizer Soln -) 1 amp NEB Q4H PRN PRN Reason: SHORT OF BREATH/WHEEZING Last Admin: 12/14/17 10:35 Dose: 1 amp Albuterol/Ipratropium (Duoneb -) 1 amp NEB RQID [facility] Last Admin: 12/16/17 11:24 Dose: 1 amp Chlorhexidine Gluconate (Hibiclens For Decolonization -) 1 applic TP HS [facility] Last Admin: 12/15/17 21:55 Dose: 1 applic Heparin Sodium (Porcine) (Heparin -) 5,000 unit SQ TID [facility] Last Admin: 12/16/17 15:46 Dose: 5,000 unit Metronidazole (Flagyl 500mg Premixed Ivpb -) 500 mg in 100 mls @ 100 mls/hr IVPB Q8H-IV [facility] Last Admin: 12/16/17 09:26 Dose: 100 mls/hr Norepinephrine Bitartrate 8, (000 mcg/ Dextrose) 500 mls @ 18.75 mls/hr IV TITR [facility]; 5 MCG/MIN PRN Reason: Protocol Last Admin: 12/16/17 03:00 Dose: 5 mcg/min, 18.75 mls/hr Levetiracetam (Keppra Oral Solution -) 500 mg GT BID [facility] Last Admin: 12/16/17 09:25 Dose: 500 mg Mupirocin (Bactroban Ointment (For Decolonization) -) 1 applic NS BID [facility] Stop: 12/17/17 09:59 Last Admin: 12/16/17 09:26 Dose: 1 applic Potassium Phos/Sodium Phos (Phos-Nak Packet -) 1 packet PO BID [facility] Last Admin: 12/16/17 09:25 Dose: 1 packet Ranitidine HCl (Zantac Oral Solution -) 150 mg PO DAILY [facility] Last Admin: 12/16/17 09:26 Dose: 150 mg Vancomycin HCl (Vancomycin Oral Solution) 500 mg GT Q6HPO [facility] Last Admin: 12/16/17 13:05 Dose: 500 mg - Objective Vital Signs: Vital Signs Temperature 97.6 F 12/16/17 12:00 Pulse Rate 111 H 12/16/17 14:00 Respiratory Rate 34 H 05/18/18 14:00 Blood Pressure 108/80 12/16/17 14:00 O2 Sat by Pulse Oximetry (%) 100 12/16/17 09:00 Constitutional: Yes: No Distress, Calm HENT: Yes: Atraumatic, Normocephalic Neck: Yes: Supple, Trachea Midline Cardiovascular: Yes: Regular Rate and Rhythm, S1 Respiratory: Yes: Regular, CTA Bilaterally Gastrointestinal: Yes: Normal Bowel Sounds, Soft Musculoskeletal: Yes: WNL Extremities: Yes: WNL Labs: CBC, BMP 12/16/17 06:10 12/16/17 06:10 INR, PTT INR 1.37 (0.82-1.09) H 12/11/17 22:30 Assessment/Plan wbc trending down Problem List - Problem (1) MODS (multiple organ dysfunction syndrome) Code(s): [id number] - (2) Severe sepsis Code(s): A41.9 - SEPSIS, UNSPECIFIED ORGANISM; R65.20 - SEVERE SEPSIS WITHOUT SEPTIC SHOCK (3) Clostridium difficile diarrhea Code(s): A04.72 - ENTEROCOLITIS D/T CLOSTRIDIUM DIFFICILE, NOT SPCF RECUR (4) Hypernatremia Code(s): E87.0 - HYPEROSMOLALITY AND HYPERNATREMIA (5) Chronic respiratory failure Code(s): J96.10 - CHRONIC RESPIRATORY FAILURE, UNSP W HYPOXIA OR HYPERCAPNIA (6) Seizures Code(s): R56.9 - UNSPECIFIED CONVULSIONS (7) Bladder mass Code(s): N32.89 - OTHER SPECIFIED DISORDERS OF BLADDER (8) MDD (major depressive disorder) Code(s): F32.9 - MAJOR DEPRESSIVE DISORDER, SINGLE EPISODE, UNSPECIFIED (9) Hx TIA/stroke w/o resid Code(s): Z86.73 - PRSNL HX OF TIA (TIA), AND CEREB INFRC W/O RESID DEFICITS (10) HTN (hypertension) Code(s): I10 - ESSENTIAL (PRIMARY) HYPERTENSION (11) HLD (hyperlipidemia) Code(s): E78.5 - HYPERLIPIDEMIA, UNSPECIFIED (12) Functional quadriplegia Code(s): R53.2 - FUNCTIONAL QUADRIPLEGIA (13) Prolonged QT interval Code(s): R94.31 - ABNORMAL ELECTROCARDIOGRAM [ECG] [EKG] (14) Anemia Code(s): D64.9 - ANEMIA, UNSPECIFIED Qualifiers: Anemia type: unspecified type Qualified Code(s): D64.9 - Anemia, unspecified plan continue current mgmt cx reports noted continue hydration pressors as needed continue to monitor wbc rest as per icu patient improving after 5 days stop iv flagyl and continue oral vanco cc time 40 min
[2017-12-16] MEDS ORDERED: PROMETHAZINE HCL 25 MG/1 ML VIAL IVPUSH ONE (16:15)
[2017-12-16] MEDS ORDERED: SODIUM CHLORIDE 0.9% 500 ML INFUS.BAG IV ONE (16:31)
[2017-12-16 17:48] LABS: MAGNESIUM 1.5 mg/dL (1.8-2.4); PHOSPHOROUS 2.5 mg/dL (2.5-4.9)
[2017-12-16] MEDS: CHLORHEXIDINE GLUCONATE 4% CLEANSER FOR DECOLONIZATION TP SCH (22:15)
[2017-12-17] MEDS ORDERED: PT OWN MED DRAWER 7, Y5N ONE ×5 (05:53→22:13)
[2017-12-17] MEDS: HEPARIN NA (PORCINE) 5,000 UNITS/ML 1ML VIAL SQ SCH ×3 (05:58→22:17)
[2017-12-17] MEDS: VANCOMYCIN 250 MG/5 ML ORAL SOLUTION GT SCH ×3 (05:59→17:22)
[2017-12-17 06:04] LABS: HEMATOCRIT 24.1 % (32.4-45.2); HEMOGLOBIN 8.2 GM/dL (10.7-15.3); MCH 30.4 pg (25.7-33.7); MEAN CELL VOLUME 89.3 fl (80-96); MEAN PLT VOLUME 7.9 fl (7.5-11.1); PLATELET COUNT 327 K/MM3 (134-434); RDW 17.9 % (11.6-15.6); WHITE BLOOD COUNT 23.2 K/mm3 (4.0-10.0)
[2017-12-17 06:34] LABS: ALBUMIN 1.5 g/dl (3.4-5.0); ANION GAP 7 (8-16); BLOOD UREA NITROGEN 6 mg/dL (7-18); CALCIUM 7.3 mg/dL (8.5-10.1); CHLORIDE 117 mmol/L (98-107); CO2 24 mmol/L (21-32); GLUCOSE,RANDOM 183 mg/dL (74-106); POTASSIUM 3.7 mmol/L (3.5-5.1); SODIUM 148 mmol/L (136-145)
[2017-12-17 06:37] LABS: ALK PHOS 72 U/L (45-117); BILIRUBIN,TOTAL 0.3 mg/dL (0.2-1.0); CREATININE 0.6 mg/dL (0.55-1.02); SGOT/AST 16 U/L (15-37); SGPT/ALT 11 U/L (12-78); TOT PROT 4.8 g/dl (6.4-8.2)
[2017-12-17] MEDS: ALBUTEROL SO4 2.5/IPRATROPIUM 0.5 INH SOL 3 ML VIAL.NEB. NEB SCH ×3 (08:12→16:19)
--- NOTE | 2017-12-17 08:29 | PN ---
Progress Note, Physician Chief Complaint: Awake, confused Afebrile no distress has some amount bm abd pain - mild - Current Medication List Current Medications: Active Medications Albuterol Sulfate (Ventolin 0.083% Nebulizer Soln -) 1 amp NEB Q4H PRN PRN Reason: SHORT OF BREATH/WHEEZING Last Admin: 12/14/17 10:35 Dose: 1 amp Albuterol/Ipratropium (Duoneb -) 1 amp NEB RQID [facility] Last Admin: 12/17/17 08:12 Dose: 1 amp Chlorhexidine Gluconate (Hibiclens For Decolonization -) 1 applic TP HS [facility] Last Admin: 12/16/17 22:15 Dose: 1 applic Heparin Sodium (Porcine) (Heparin -) 5,000 unit SQ TID [facility] Last Admin: 12/17/17 05:58 Dose: 5,000 unit Metronidazole (Flagyl 500mg Premixed Ivpb -) 500 mg in 100 mls @ 100 mls/hr IVPB Q8H-IV [facility] Last Admin: 12/17/17 02:20 Dose: 100 mls/hr Levetiracetam (Keppra Oral Solution -) 500 mg GT BID [facility] Last Admin: 12/16/17 22:15 Dose: 500 mg Mupirocin (Bactroban Ointment (For Decolonization) -) 1 applic NS BID [facility] Stop: 12/17/17 09:59 Last Admin: 12/16/17 22:14 Dose: 1 applic Potassium Phos/Sodium Phos (Phos-Nak Packet -) 1 packet PO BID [facility] Last Admin: 12/16/17 22:14 Dose: 1 packet Ranitidine HCl (Zantac Oral Solution -) 150 mg PO DAILY [facility] Last Admin: 12/16/17 09:26 Dose: 150 mg Vancomycin HCl (Vancomycin Oral Solution) 500 mg GT Q6HPO [facility] Last Admin: 12/17/17 05:59 Dose: 500 mg - Objective Vital Signs: Vital Signs Temperature 99.2 F 12/17/17 06:00 Pulse Rate 111 H 12/17/17 08:00 Respiratory Rate 32 H 12/17/17 08:00 Blood Pressure 114/85 12/17/17 08:00 O2 Sat by Pulse Oximetry (%) 100 12/17/17 08:07 Constitutional: Yes: No Distress, Calm Cardiovascular: Yes: Regular Rate and Rhythm, Tachycardia Respiratory: Yes: Diminished Gastrointestinal: Yes: Normal Bowel Sounds, Soft, Distention, Tenderness (rt quadrant) Edema: No Labs: CBC, BMP 12/17/17 05:50 12/17/17 05:50 INR, PTT INR 1.37 (0.82-1.09) H 12/11/17 22:30 Problem List - Problems (1) Clostridium difficile diarrhea Code(s): A04.72 - ENTEROCOLITIS D/T CLOSTRIDIUM DIFFICILE, NOT SPCF RECUR (2) Colitis Code(s): K52.9 - NONINFECTIVE GASTROENTERITIS AND COLITIS, UNSPECIFIED (3) Functional quadriplegia Code(s): R53.2 - FUNCTIONAL QUADRIPLEGIA (4) HLD (hyperlipidemia) Code(s): E78.5 - HYPERLIPIDEMIA, UNSPECIFIED (5) HTN (hypertension) Code(s): I10 - ESSENTIAL (PRIMARY) HYPERTENSION (6) Seizures Code(s): R56.9 - UNSPECIFIED CONVULSIONS (7) Severe sepsis Code(s): A41.9 - SEPSIS, UNSPECIFIED ORGANISM; R65.20 - SEVERE SEPSIS WITHOUT SEPTIC SHOCK (8) MODS (multiple organ dysfunction syndrome) Code(s): [id number] - Assessment/Plan PLAN Septic shock -- off pressor support -- ICU monitoring -- lactic acid levels decreased -- antibiotics Fulminant Cdiff colitis -- on Vanco and Flagyl -- WBC trending down -- afebrile-- cdiff antigen positive s/p Acute renal failure/MODS/Hypernatremia -- renal function improving -- hypernatremia - give extra water flushes-- watch for volume overload -- replace electrolytes continue ICU care Pt is more alert clinically better
[2017-12-17] MEDS: levETIRAcetam 500 MG/5 ML ORAL SOLUTION (UNIT-DOSE CUPS) GT SCH ×2 (09:04→22:17)
[2017-12-17] MEDS: NAPH,MB-DB/K PH,MBDB POWDER PACKET PO SCH ×2 (09:04→22:17)
[2017-12-17] MEDS: RANITIDINE HCL 150 MG/10 ML UNIT-DOSE PO SCH (09:04)
--- NOTE | 2017-12-17 10:35 | PN ---
Progress Note (short form) - Note Progress Note: PULMONARY/CCM Pt seen and examined in the ICU. Still some abdominal pain. Remains off pressors. More tachypneic today. Last Vital Signs Temp Pulse Resp BP Pulse Ox 99.2 F 111 H 32 H 114/85 100 12/17/17 06:00 12/17/17 08:00 12/17/17 08:00 12/17/17 08:00 12/17/17 08:07 Intake & Output 12/14/17 12/15/17 12/16/17 12/17/17 23:59 23:59 23:59 23:59 Intake Total 7847.1 2062 452 394 Output Total 3330 2100 475 100 Balance 4517.1 -38 -23 294 Weight 72.121 kg 83.064 kg Gen: tachypneic at rest Heart: tachycardic, regular Lung: scattered rhonchi Abd: softly distended Ext: + edema CBC, BMP 12/17/17 05:50 12/17/17 05:50 Active Medications Albuterol Sulfate (Ventolin 0.083% Nebulizer Soln -) 1 amp NEB Q4H PRN PRN Reason: SHORT OF BREATH/WHEEZING Last Admin: 12/14/17 10:35 Dose: 1 amp Albuterol/Ipratropium (Duoneb -) 1 amp NEB RQID [facility] Last Admin: 12/17/17 08:12 Dose: 1 amp Chlorhexidine Gluconate (Hibiclens For Decolonization -) 1 applic TP HS [facility] Last Admin: 12/16/17 22:15 Dose: 1 applic Heparin Sodium (Porcine) (Heparin -) 5,000 unit SQ TID [facility] Last Admin: 12/17/17 05:58 Dose: 5,000 unit Metronidazole (Flagyl 500mg Premixed Ivpb -) 500 mg in 100 mls @ 100 mls/hr IVPB Q8H-IV [facility] Last Admin: 12/17/17 09:04 Dose: 100 mls/hr Levetiracetam (Keppra Oral Solution -) 500 mg GT BID [facility] Last Admin: 12/17/17 09:04 Dose: 500 mg Potassium Phos/Sodium Phos (Phos-Nak Packet -) 1 packet PO BID [facility] Last Admin: 12/17/17 09:04 Dose: 1 packet Ranitidine HCl (Zantac Oral Solution -) 150 mg PO DAILY [facility] Last Admin: 12/17/17 09:04 Dose: 150 mg Vancomycin HCl (Vancomycin Oral Solution) 500 mg GT Q6HPO [facility] Last Admin: 12/17/17 05:59 Dose: 500 mg A/P C Diff Colitis Septic Shock resolving Acute Kidney Injury improving Lactic Acidosis resolved Volume Overload h/o CVA Dementia - continue antibiotics per ID - monitor off pressors, maintain MAP >65 - lasix today - monitor urine output, creatinine - aspiration precautions - O2 to keep SpO2 >90% - enteral feeds - DVT/GI prophylaxis - continue ICU monitoring critical care time spent in reviewing chart, evaluating patient and formulating plan 35 min
[2017-12-17] MEDS ORDERED: FUROSEMIDE 40 MG/4 ML INJECTABLE VIAL IVPUSH ONE (10:36)
--- NOTE | 2017-12-17 10:47 | PN ---
Progress Note (short form) - Note Progress Note: Renal follow up for NICOLÁS Pt seen and examined at the bedside awake and alert no acute complaints no sob, chest pain continues to have abd discomfort Vital Signs Temperature 99.2 F 12/17/17 06:00 Pulse Rate 111 H 12/17/17 08:00 Respiratory Rate 32 H 12/17/17 08:00 Blood Pressure 114/85 12/17/17 08:00 O2 Sat by Pulse Oximetry (%) 100 12/17/17 08:07 Intake & Output 12/14/17 12/15/17 12/16/17 12/17/17 23:59 23:59 23:59 23:59 Intake Total 7847.1 2062 452 394 Output Total 3330 2100 475 100 Balance 4517.1 -38 -23 294 Weight 72.121 kg 83.064 kg NAD, sleeping tachycardic, no murmur Dec BS distended abd no LE edema CBC, BMP 12/17/17 05:50 12/17/17 05:50 Current Medications Albuterol Sulfate (Ventolin 0.083% Nebulizer Soln -) 1 amp NEB Q4H PRN PRN Reason: SHORT OF BREATH/WHEEZING Last Admin: 12/14/17 10:35 Dose: 1 amp Albuterol/Ipratropium (Duoneb -) 1 amp NEB RQID [facility] Last Admin: 12/17/17 08:12 Dose: 1 amp Chlorhexidine Gluconate (Hibiclens For Decolonization -) 1 applic TP HS [facility] Last Admin: 12/16/17 22:15 Dose: 1 applic Furosemide (Lasix Injection -) 40 mg IVPUSH ONCE ONE Stop: 12/17/17 10:37 Heparin Sodium (Porcine) (Heparin -) 5,000 unit SQ TID [facility] Last Admin: 12/17/17 05:58 Dose: 5,000 unit Metronidazole (Flagyl 500mg Premixed Ivpb -) 500 mg in 100 mls @ 100 mls/hr IVPB Q8H-IV [facility] Last Admin: 12/17/17 09:04 Dose: 100 mls/hr Levetiracetam (Keppra Oral Solution -) 500 mg GT BID [facility] Last Admin: 12/17/17 09:04 Dose: 500 mg Potassium Phos/Sodium Phos (Phos-Nak Packet -) 1 packet PO BID [facility] Last Admin: 12/17/17 09:04 Dose: 1 packet Ranitidine HCl (Zantac Oral Solution -) 150 mg PO DAILY [facility] Last Admin: 12/17/17 09:04 Dose: 150 mg Vancomycin HCl (Vancomycin Oral Solution) 500 mg GT Q6HPO [facility] Last Admin: 12/17/17 05:59 Dose: 500 mg 67 year old woman with PMhx of CVS, Dementia, PEG with recent Cdi admission who presented with hypotension and found to have acute sepsis with NICOLÁS #Acute Kidney Injury secondary to renal hypoprofusion +/- ATN in setting of Sepsis #Lactic acidosis #Colitis/C-diff #Sepsis with hypotension #Anemia #Hypokalemia #Hypernatremia Renal function stable continue free water with tube feeds added on Mg, Phos levels to am labs, supplement as needed continue Abx as per ID trend H/H, transfuse as per ICU protocol Constantino Clemons DO
[2017-12-17 11:25] LABS: MAGNESIUM 1.5 mg/dL (1.8-2.4); PHOSPHOROUS 2.8 mg/dL (2.5-4.9)
--- NOTE | 2017-12-17 11:45 | PN ---
Progress Note, Physician History of Present Illness: Clinically improved. Awake, alert, smiling, communicating. Still has diarrhea. - Current Medication List Current Medications: Active Medications Albuterol Sulfate (Ventolin 0.083% Nebulizer Soln -) 1 amp NEB Q4H PRN PRN Reason: SHORT OF BREATH/WHEEZING Last Admin: 12/14/17 10:35 Dose: 1 amp Albuterol/Ipratropium (Duoneb -) 1 amp NEB RQID [facility] Last Admin: 12/17/17 08:12 Dose: 1 amp Chlorhexidine Gluconate (Hibiclens For Decolonization -) 1 applic TP HS [facility] Last Admin: 12/16/17 22:15 Dose: 1 applic Heparin Sodium (Porcine) (Heparin -) 5,000 unit SQ TID [facility] Last Admin: 12/17/17 05:58 Dose: 5,000 unit Metronidazole (Flagyl 500mg Premixed Ivpb -) 500 mg in 100 mls @ 100 mls/hr IVPB Q8H-IV [facility] Last Admin: 12/17/17 09:04 Dose: 100 mls/hr Levetiracetam (Keppra Oral Solution -) 500 mg GT BID [facility] Last Admin: 12/17/17 09:04 Dose: 500 mg Potassium Phos/Sodium Phos (Phos-Nak Packet -) 1 packet PO BID [facility] Last Admin: 12/17/17 09:04 Dose: 1 packet Ranitidine HCl (Zantac Oral Solution -) 150 mg PO DAILY [facility] Last Admin: 12/17/17 09:04 Dose: 150 mg Vancomycin HCl (Vancomycin Oral Solution) 500 mg GT Q6HPO [facility] Last Admin: 12/17/17 05:59 Dose: 500 mg - Objective Vital Signs: Vital Signs Temperature 99.2 F 12/17/17 06:00 Pulse Rate 111 H 12/17/17 08:00 Respiratory Rate 32 H 12/17/17 08:00 Blood Pressure 114/85 12/17/17 08:00 O2 Sat by Pulse Oximetry (%) 100 12/17/17 08:07 Constitutional: Yes: No Distress, Calm Eyes: Yes: Conjunctiva Clear HENT: Yes: Atraumatic Neurological: Yes: Alert Labs: CBC, BMP 12/17/17 05:50 12/17/17 05:50 INR, PTT INR 1.37 (0.82-1.09) H 12/11/17 22:30 Laboratory Last Values WBC 23.2 K/mm3 (4.0-10.0) H 12/17/17 05:50 RBC 2.70 M/mm3 (3.60-5.2) L 12/17/17 05:50 Hgb 8.2 GM/dL (10.7-15.3) L 12/17/17 05:50 Hct 24.1 % (32.4-45.2) L 12/17/17 05:50 MCV 89.3 fl (80-96) 12/17/17 05:50 MCH 30.4 pg (25.7-33.7) 12/17/17 05:50 MCHC 34.0 g/dl (32.0-36.0) 12/17/17 05:50 RDW 17.9 % (11.6-15.6) H 12/17/17 05:50 Plt Count 327 K/MM3 (134-434) 12/17/17 05:50 MPV 7.9 fl (7.5-11.1) 12/17/17 05:50 Total Counted 100 12/12/17 03:45 Neutrophils % No Result Required. 12/12/17 03:45 Neutrophils % (Manual) No Result Required. 12/13/17 05:18 Band Neutrophils % 8.0 % (0-10) 12/12/17 03:45 Lymphocytes % No Result Required. 12/12/17 03:45 Lymphocytes % (Manual) 8.0 % (8-40) 12/12/17 03:45 Monocytes % (Manual) 2 % (3.8-10.2) L 12/12/17 03:45 Basophils % (Manual) 1.0 % (0-2.0) 12/11/17 22:30 Myelocytes % (Man) 3 % (0-2) H 12/12/17 03:45 Nucleated RBC % 1 % (0-0) H 12/11/17 22:30 Metamyelocytes 2 % (0-2) 12/12/17 03:45 Differential Comment Man diff performed 12/11/17 22:30 Platelet Estimate Adequate 12/12/17 03:45 Platelet Comment Giant platelets 12/11/17 22:30 Polychromasia 1+ 12/11/17 22:30 Anisocytosis 1+ 12/11/17 22:30 Macrocytosis 1+ 12/11/17 22:30 PT with INR 15.50 SEC (9.7-13.0) H 12/11/17 22:30 INR 1.37 (0.82-1.09) H 12/11/17 22:30 PTT (Actin FS) 23.2 SECONDS (26.9-34.4) L 12/11/17 22:30 Anticoagulation Therapy No Result Required. 12/11/17 23:15 Puncture Site Right radial 12/12/17 12:20 ABG pH 7.39 (7.35-7.45) 12/12/17 12:20 ABG pCO2 at Pt Temp 27.4 mmHg (35-45) L 12/12/17 12:20 ABG pO2 at Pt Temp 89.1 mmHg (80-100) 12/12/17 12:20 ABG HCO3 16.2 meq/L (22-26) L 12/12/17 12:20 ABG O2 Sat (Measured) 96.5 % (90-98.9) 12/12/17 12:20 ABG O2 Content 10.8 % vol (15-22) L 12/12/17 12:20 ABG Base Excess -7.4 meq/l (-2-2) L 12/12/17 12:20 Amando Test Positive 12/12/17 12:20 Carboxyhemoglobin 1.6 gm% (0.5-2.0) 12/11/17 23:15 Methemoglobin 1.5 % (0.4-1.5) 12/11/17 23:15 O2 Delivery Device Nasal cannula 12/12/17 12:20 Oxygen Flow Rate 3l 12/12/17 12:20 Vent Mode No Result Required. 12/11/17 23:15 Vent Rate No Result Required. 12/11/17 23:15 Mechanical Rate No 12/12/17 12:20 PEEP 0.0 cmH2O 12/12/17 12:20 Pressure Support Vent No Result Required. 12/11/17 23:15 Sodium 148 mmol/L (136-145) H 12/17/17 05:50 Potassium 3.7 mmol/L (3.5-5.1) 12/17/17 05:50 Chloride 117 mmol/L (98-107) H 12/17/17 05:50 Carbon Dioxide 24 mmol/L (21-32) 12/17/17 05:50 Anion Gap 7 (8-16) L 12/17/17 05:50 BUN 6 mg/dL (7-18) L 12/17/17 05:50 Creatinine 0.6 mg/dL (0.55-1.02) 12/17/17 05:50 Creat Clearance w eGFR > 60 (>60) 12/17/17 05:50 Random Glucose 183 mg/dL (74-106) H 12/17/17 05:50 Lactic Acid 1.1 mmol/L (0.0-2.0) 12/16/17 06:10 Calcium 7.3 mg/dL (8.5-10.1) L 12/17/17 05:50 Phosphorus 2.8 mg/dL (2.5-4.9) 12/17/17 10:55 Magnesium 1.5 mg/dL (1.8-2.4) L 12/17/17 10:55 Total Bilirubin 0.3 mg/dL (0.2-1.0) D 12/17/17 05:50 AST 16 U/L (15-37) 12/17/17 05:50 ALT 11 U/L (12-78) L 12/17/17 05:50 Alkaline Phosphatase 72 U/L (45-117) 12/17/17 05:50 Total Protein 4.8 g/dl (6.4-8.2) L 12/17/17 05:50 Albumin 1.5 g/dl (3.4-5.0) L 12/17/17 05:50 Urine Color Radha 12/11/17 23:50 Urine Appearance Cloudy 12/11/17 23:50 Urine pH 5.0 (5.0-8.0) 12/11/17 23:50 Ur Specific [place] 1.026 (1.001-1.035) 12/11/17 23:50 Urine Protein 1+ (NEGATIVE) H 12/11/17 23:50 Urine Glucose (UA) Negative (NEGATIVE) 12/11/17 23:50 Urine Ketones Negative (NEGATIVE) 12/11/17 23:50 Urine Blood Negative (NEGATIVE) 12/11/17 23:50 Urine Nitrite Negative (NEGATIVE) 12/11/17 23:50 Urine Bilirubin Negative (<2.0 mg/dL) 12/11/17 23:50 Urine Urobilinogen 2.0 mg/dL (0.2-1.0) H 12/11/17 23:50 Ur Leukocyte Esterase 2+ (NEGATIVE) H 12/11/17 23:50 Urine WBC (Auto) 71 /hpf (3-5) 12/11/17 23:50 Urine RBC (Auto) 3 /hpf (0-3) 12/11/17 23:50 Ur Epithelial Cells Rare /HPF (FEW) 12/11/17 23:50 Hyaline Casts 11 /lpf 12/11/17 23:50 Urine Mucus Rare 12/11/17 23:50 U Random Total Protein 63 mg/dl (5-11.9) H 12/12/17 20:45 Ur Random Sodium 7 MMOL/L 12/12/17 20:45 Urine Creatinine 118.0 mg/dL (20-320) 12/12/17 20:45 Stool Occult Blood Negative (NEGATIVE) 12/12/17 04:30 Blood Type A POSITIVE 12/12/17 04:10 Antibody Screen Negative 12/12/17 04:10 Problem List - Problems (1) Colitis Code(s): K52.9 - NONINFECTIVE GASTROENTERITIS AND COLITIS, UNSPECIFIED (2) Colitis presumed infectious Code(s): K52.9 - NONINFECTIVE GASTROENTERITIS AND COLITIS, UNSPECIFIED (3) Clostridium difficile diarrhea Code(s): A04.72 - ENTEROCOLITIS D/T CLOSTRIDIUM DIFFICILE, NOT SPCF RECUR Assessment/Plan Clinically better. Continue current care. Consider cholestyramine to control diarrhea.
--- NOTE | 2017-12-17 14:52 | PN ---
Progress Note, Physician History of Present Illness: stable no new issues says doing well still having dirrhoea - Current Medication List Current Medications: Active Medications Albuterol Sulfate (Ventolin 0.083% Nebulizer Soln -) 1 amp NEB Q4H PRN PRN Reason: SHORT OF BREATH/WHEEZING Last Admin: 12/14/17 10:35 Dose: 1 amp Albuterol/Ipratropium (Duoneb -) 1 amp NEB RQID [facility] Last Admin: 12/17/17 11:53 Dose: 1 amp Chlorhexidine Gluconate (Hibiclens For Decolonization -) 1 applic TP HS [facility] Last Admin: 12/16/17 22:15 Dose: 1 applic Heparin Sodium (Porcine) (Heparin -) 5,000 unit SQ TID [facility] Last Admin: 12/17/17 05:58 Dose: 5,000 unit Metronidazole (Flagyl 500mg Premixed Ivpb -) 500 mg in 100 mls @ 100 mls/hr IVPB Q8H-IV [facility] Last Admin: 12/17/17 09:04 Dose: 100 mls/hr Levetiracetam (Keppra Oral Solution -) 500 mg GT BID [facility] Last Admin: 12/17/17 09:04 Dose: 500 mg Potassium Phos/Sodium Phos (Phos-Nak Packet -) 1 packet PO BID [facility] Last Admin: 12/17/17 09:04 Dose: 1 packet Ranitidine HCl (Zantac Oral Solution -) 150 mg PO DAILY [facility] Last Admin: 12/17/17 09:04 Dose: 150 mg Vancomycin HCl (Vancomycin Oral Solution) 500 mg GT Q6HPO [facility] Last Admin: 12/17/17 12:57 Dose: 500 mg - Objective Vital Signs: Vital Signs Temperature 99.2 F 12/17/17 06:00 Pulse Rate 115 H 12/17/17 10:00 Respiratory Rate 31 H 12/17/17 10:00 Blood Pressure 114/83 12/17/17 10:00 O2 Sat by Pulse Oximetry (%) 100 12/17/17 08:07 Constitutional: Yes: No Distress, Calm Cardiovascular: Yes: Regular Rate and Rhythm Respiratory: Yes: Regular, CTA Bilaterally Gastrointestinal: Yes: Normal Bowel Sounds, Soft Musculoskeletal: Yes: WNL Extremities: Yes: WNL Neurological: Yes: Alert, Oriented Psychiatric: Yes: Alert, Oriented Labs: CBC, BMP 12/17/17 05:50 12/17/17 05:50 INR, PTT INR 1.37 (0.82-1.09) H 12/11/17 22:30 Assessment/Plan wbc trending down Problem List - Problem (1) MODS (multiple organ dysfunction syndrome) Code(s): [id number] - (2) Severe sepsis Code(s): A41.9 - SEPSIS, UNSPECIFIED ORGANISM; R65.20 - SEVERE SEPSIS WITHOUT SEPTIC SHOCK (3) Clostridium difficile diarrhea Code(s): A04.72 - ENTEROCOLITIS D/T CLOSTRIDIUM DIFFICILE, NOT SPCF RECUR (4) Hypernatremia Code(s): E87.0 - HYPEROSMOLALITY AND HYPERNATREMIA (5) Chronic respiratory failure Code(s): J96.10 - CHRONIC RESPIRATORY FAILURE, UNSP W HYPOXIA OR HYPERCAPNIA (6) Seizures Code(s): R56.9 - UNSPECIFIED CONVULSIONS (7) Bladder mass Code(s): N32.89 - OTHER SPECIFIED DISORDERS OF BLADDER (8) MDD (major depressive disorder) Code(s): F32.9 - MAJOR DEPRESSIVE DISORDER, SINGLE EPISODE, UNSPECIFIED (9) Hx TIA/stroke w/o resid Code(s): Z86.73 - PRSNL HX OF TIA (TIA), AND CEREB INFRC W/O RESID DEFICITS (10) HTN (hypertension) Code(s): I10 - ESSENTIAL (PRIMARY) HYPERTENSION (11) HLD (hyperlipidemia) Code(s): E78.5 - HYPERLIPIDEMIA, UNSPECIFIED (12) Functional quadriplegia Code(s): R53.2 - FUNCTIONAL QUADRIPLEGIA (13) Prolonged QT interval Code(s): R94.31 - ABNORMAL ELECTROCARDIOGRAM [ECG] [EKG] (14) Anemia Code(s): D64.9 - ANEMIA, UNSPECIFIED Qualifiers: Anemia type: unspecified type Qualified Code(s): D64.9 - Anemia, unspecified plan continue current mgmt cx reports noted continue hydration pressors as needed continue to monitor wbc rest as per icu patient improving stop flagyl tomorrow and we will see wbc trending down cc time 40 min
[2017-12-17] MEDS: CHLORHEXIDINE GLUCONATE 4% CLEANSER FOR DECOLONIZATION TP SCH (22:17)
[2017-12-18] MEDS: VANCOMYCIN 250 MG/5 ML ORAL SOLUTION GT SCH ×5 (00:09→23:05)
[2017-12-18 06:11] LABS: BASO % 0.3 % (0-2.0); EOS % 1.7 % (0-4.5); HEMATOCRIT 23.5 % (32.4-45.2); HEMOGLOBIN 7.8 GM/dL (10.7-15.3); LYMPH % 12.4 % (8-40); MCH 28.9 pg (25.7-33.7); MEAN CELL VOLUME 87.6 fl (80-96); MEAN PLT VOLUME 7.7 fl (7.5-11.1); MONO % 8.5 % (3.8-10.2); NEUT % 77.1 % (42.8-82.8); PLATELET COUNT 322 K/MM3 (134-434); RBC 2.68 M/mm3 (3.60-5.2); RDW 17.7 % (11.6-15.6); WHITE BLOOD COUNT 24.4 K/mm3 (4.0-10.0)
[2017-12-18] MEDS: HEPARIN NA (PORCINE) 5,000 UNITS/ML 1ML VIAL SQ SCH ×3 (06:19→22:41)
[2017-12-18 06:40] LABS: CHLORIDE 117 mmol/L (98-107); PHOSPHOROUS 2.5 mg/dL (2.5-4.9); POTASSIUM 3.7 mmol/L (3.5-5.1); SODIUM 148 mmol/L (136-145)
[2017-12-18 06:45] LABS: ALBUMIN 1.5 g/dl (3.4-5.0); ALK PHOS 64 U/L (45-117); ANION GAP 5 (8-16); BILIRUBIN,TOTAL 0.2 mg/dL (0.2-1.0); BLOOD UREA NITROGEN 7 mg/dL (7-18); CALCIUM 7.1 mg/dL (8.5-10.1); CO2 26 mmol/L (21-32); CREATININE 0.6 mg/dL (0.55-1.02); GLUCOSE,RANDOM 168 mg/dL (74-106); MAGNESIUM 1.4 mg/dL (1.8-2.4); SGOT/AST 12 U/L (15-37); SGPT/ALT 10 U/L (12-78); TOT PROT 4.7 g/dl (6.4-8.2)
[2017-12-18] MEDS: ALBUTEROL SO4 2.5/IPRATROPIUM 0.5 INH SOL 3 ML VIAL.NEB. NEB SCH ×4 (08:58→20:58)
--- NOTE | 2017-12-18 09:20 | PN ---
Progress Note, Physician Chief Complaint: Awake, confused Afebrile no distress has some amount bm - Current Medication List Current Medications: Active Medications Albuterol Sulfate (Ventolin 0.083% Nebulizer Soln -) 1 amp NEB Q4H PRN PRN Reason: SHORT OF BREATH/WHEEZING Last Admin: 12/14/17 10:35 Dose: 1 amp Albuterol/Ipratropium (Duoneb -) 1 amp NEB RQID [facility] Last Admin: 12/18/17 08:58 Dose: 1 amp Chlorhexidine Gluconate (Hibiclens For Decolonization -) 1 applic TP HS [facility] Last Admin: 12/17/17 22:17 Dose: 1 applic Heparin Sodium (Porcine) (Heparin -) 5,000 unit SQ TID [facility] Last Admin: 12/18/17 06:19 Dose: 5,000 unit Metronidazole (Flagyl 500mg Premixed Ivpb -) 500 mg in 100 mls @ 100 mls/hr IVPB Q8H-IV [facility] Last Admin: 12/18/17 01:12 Dose: 100 mls/hr Levetiracetam (Keppra Oral Solution -) 500 mg GT BID [facility] Last Admin: 12/17/17 22:17 Dose: 500 mg Potassium Phos/Sodium Phos (Phos-Nak Packet -) 1 packet PO BID [facility] Last Admin: 12/17/17 22:17 Dose: 1 packet Ranitidine HCl (Zantac Oral Solution -) 150 mg PO DAILY [facility] Last Admin: 12/17/17 09:04 Dose: 150 mg Vancomycin HCl (Vancomycin Oral Solution) 500 mg GT Q6HPO [facility] Last Admin: 12/18/17 06:19 Dose: 500 mg - Objective Vital Signs: Vital Signs Temperature 98.9 F 12/18/17 06:00 Pulse Rate 114 H 12/18/17 08:00 Respiratory Rate 22 12/18/17 08:27 Blood Pressure 99/76 12/18/17 08:00 O2 Sat by Pulse Oximetry (%) 98 12/18/17 08:27 Constitutional: Yes: No Distress Cardiovascular: Yes: Regular Rate and Rhythm Respiratory: Yes: Diminished Gastrointestinal: Yes: Normal Bowel Sounds, Soft, Distention (decreased). No: Tenderness Edema: No Labs: CBC, BMP 12/18/17 05:55 12/18/17 05:55 INR, PTT INR 1.37 (0.82-1.09) H 12/11/17 22:30 Problem List - Problems (1) Clostridium difficile diarrhea Code(s): A04.72 - ENTEROCOLITIS D/T CLOSTRIDIUM DIFFICILE, NOT SPCF RECUR (2) Colitis Code(s): K52.9 - NONINFECTIVE GASTROENTERITIS AND COLITIS, UNSPECIFIED (3) Functional quadriplegia Code(s): R53.2 - FUNCTIONAL QUADRIPLEGIA (4) HLD (hyperlipidemia) Code(s): E78.5 - HYPERLIPIDEMIA, UNSPECIFIED (5) HTN (hypertension) Code(s): I10 - ESSENTIAL (PRIMARY) HYPERTENSION (6) Seizures Code(s): R56.9 - UNSPECIFIED CONVULSIONS (7) Severe sepsis Code(s): A41.9 - SEPSIS, UNSPECIFIED ORGANISM; R65.20 - SEVERE SEPSIS WITHOUT SEPTIC SHOCK (8) MODS (multiple organ dysfunction syndrome) Code(s): [id number] - Assessment/Plan PLAN Septic shock -- off pressor support -- ICU monitoring -- lactic acid levels decreased -- antibiotics Fulminant Cdiff colitis -- on Vanco and Flagyl -- WBC slight upward trend today -- clinically improving -- afebrile-- cdiff antigen positive s/p Acute renal failure/MODS/Hypernatremia -- renal function improving -- hypernatremia - give extra water flushes-- watch for volume overload continue ICU care Pt is more alert clinically better
[2017-12-18] MEDS ORDERED: PT OWN MED DRAWER 7, Y5N ONE ×3 (09:51→22:33)
--- NOTE | 2017-12-18 09:55 | PN ---
Progress Note (short form) - Note Progress Note: PULMONARY/CCM Pt seen and examined in the ICU. Somnolent but arousable. Off pressors, blood pressure borderline low. Last Vital Signs Temp Pulse Resp BP Pulse Ox 98.9 F 115 H 24 105/56 98 12/18/17 06:00 12/18/17 09:37 12/18/17 09:37 12/18/17 09:37 12/18/17 08:27 Intake & Output 12/15/17 12/16/17 12/17/17 12/18/17 23:59 23:59 23:59 23:59 Intake Total 2062 872 1440 794 Output Total 2100 475 1100 Balance -38 397 340 794 Weight 83.064 kg 83.943 kg Gen: tachypneic at rest Heart: tachycardic, regular Lung: bilateral wheezes, rhonchi Abd: softly distended Ext: + edema CBC, BMP 12/18/17 05:55 12/18/17 05:55 Active Medications Albuterol Sulfate (Ventolin 0.083% Nebulizer Soln -) 1 amp NEB Q4H PRN PRN Reason: SHORT OF BREATH/WHEEZING Last Admin: 12/14/17 10:35 Dose: 1 amp Albuterol/Ipratropium (Duoneb -) 1 amp NEB RQID [facility] Last Admin: 12/18/17 08:58 Dose: 1 amp Chlorhexidine Gluconate (Hibiclens For Decolonization -) 1 applic TP HS [facility] Last Admin: 12/17/17 22:17 Dose: 1 applic Heparin Sodium (Porcine) (Heparin -) 5,000 unit SQ TID [facility] Last Admin: 12/18/17 06:19 Dose: 5,000 unit Metronidazole (Flagyl 500mg Premixed Ivpb -) 500 mg in 100 mls @ 100 mls/hr IVPB Q8H-IV [facility] Last Admin: 12/18/17 01:12 Dose: 100 mls/hr Levetiracetam (Keppra Oral Solution -) 500 mg GT BID [facility] Last Admin: 12/17/17 22:17 Dose: 500 mg Potassium Phos/Sodium Phos (Phos-Nak Packet -) 1 packet PO BID [facility] Last Admin: 12/17/17 22:17 Dose: 1 packet Ranitidine HCl (Zantac Oral Solution -) 150 mg PO DAILY [facility] Last Admin: 12/17/17 09:04 Dose: 150 mg Vancomycin HCl (Vancomycin Oral Solution) 500 mg GT Q6HPO [facility] Last Admin: 12/18/17 06:19 Dose: 500 mg A/P C Diff Colitis Septic Shock resolving Acute Kidney Injury improving Lactic Acidosis resolved Volume Overload h/o CVA Dementia - continue antibiotics per ID - monitor off pressors, maintain MAP >65 - lasix today if BP tolerates - monitor urine output, creatinine - replete lytes - aspiration precautions - O2 to keep SpO2 >90% - enteral feeds - DVT/GI prophylaxis - continue ICU monitoring critical care time spent in reviewing chart, evaluating patient and formulating plan 35 min
[2017-12-18] MEDS ORDERED: MAGNESIUM SULF 50% (8.12 MEQ/2 ML-1 GM VIAL) IVPB ONE (10:15)
[2017-12-18] MEDS ORDERED: FUROSEMIDE 40 MG/4 ML INJECTABLE VIAL IVPUSH ONE (10:15)
[2017-12-18] MEDS: RANITIDINE HCL 150 MG/10 ML UNIT-DOSE PO SCH (10:33)
[2017-12-18] MEDS: levETIRAcetam 500 MG/5 ML ORAL SOLUTION (UNIT-DOSE CUPS) GT SCH ×2 (10:33→22:41)
[2017-12-18] MEDS: NAPH,MB-DB/K PH,MBDB POWDER PACKET PO SCH ×2 (10:33→22:41)
--- NOTE | 2017-12-18 12:24 | PN ---
Progress Note, Physician History of Present Illness: stable confused wbc still on the higher side still with some dirrhoea - Current Medication List Current Medications: Active Medications Albuterol Sulfate (Ventolin 0.083% Nebulizer Soln -) 1 amp NEB Q4H PRN PRN Reason: SHORT OF BREATH/WHEEZING Last Admin: 12/14/17 10:35 Dose: 1 amp Albuterol/Ipratropium (Duoneb -) 1 amp NEB RQID [facility] Last Admin: 12/18/17 11:37 Dose: 1 amp Chlorhexidine Gluconate (Hibiclens For Decolonization -) 1 applic TP HS [facility] Last Admin: 12/17/17 22:17 Dose: 1 applic Heparin Sodium (Porcine) (Heparin -) 5,000 unit SQ TID [facility] Last Admin: 12/18/17 06:19 Dose: 5,000 unit Metronidazole (Flagyl 500mg Premixed Ivpb -) 500 mg in 100 mls @ 100 mls/hr IVPB Q8H-IV [facility] Last Admin: 12/18/17 10:33 Dose: 100 mls/hr Levetiracetam (Keppra Oral Solution -) 500 mg GT BID [facility] Last Admin: 12/18/17 10:33 Dose: 500 mg Potassium Phos/Sodium Phos (Phos-Nak Packet -) 1 packet PO BID [facility] Last Admin: 12/18/17 10:33 Dose: 1 packet Ranitidine HCl (Zantac Oral Solution -) 150 mg PO DAILY [facility] Last Admin: 12/18/17 10:33 Dose: 150 mg Vancomycin HCl (Vancomycin Oral Solution) 500 mg GT Q6HPO [facility] Last Admin: 12/18/17 06:19 Dose: 500 mg - Objective Vital Signs: Vital Signs Temperature 98.9 F 12/18/17 06:00 Pulse Rate 115 H 12/18/17 09:37 Respiratory Rate 24 12/18/17 09:37 Blood Pressure 105/56 12/18/17 09:37 O2 Sat by Pulse Oximetry (%) 98 12/18/17 08:27 Constitutional: Yes: No Distress, Calm Cardiovascular: Yes: Regular Rate and Rhythm Respiratory: Yes: Regular, CTA Bilaterally Gastrointestinal: Yes: Normal Bowel Sounds, Soft, Other Musculoskeletal: Yes: WNL Extremities: Yes: WNL Neurological: Yes: Alert, Other (confused) Psychiatric: Yes: Alert Labs: CBC, BMP 12/18/17 05:55 12/18/17 05:55 INR, PTT INR 1.37 (0.82-1.09) H 12/11/17 22:30 Assessment/Plan wbc trending down Problem List - Problem (1) MODS (multiple organ dysfunction syndrome) Code(s): [id number] - (2) Severe sepsis Code(s): A41.9 - SEPSIS, UNSPECIFIED ORGANISM; R65.20 - SEVERE SEPSIS WITHOUT SEPTIC SHOCK (3) Clostridium difficile diarrhea Code(s): A04.72 - ENTEROCOLITIS D/T CLOSTRIDIUM DIFFICILE, NOT SPCF RECUR (4) Hypernatremia Code(s): E87.0 - HYPEROSMOLALITY AND HYPERNATREMIA (5) Chronic respiratory failure Code(s): J96.10 - CHRONIC RESPIRATORY FAILURE, UNSP W HYPOXIA OR HYPERCAPNIA (6) Seizures Code(s): R56.9 - UNSPECIFIED CONVULSIONS (7) Bladder mass Code(s): N32.89 - OTHER SPECIFIED DISORDERS OF BLADDER (8) MDD (major depressive disorder) Code(s): F32.9 - MAJOR DEPRESSIVE DISORDER, SINGLE EPISODE, UNSPECIFIED (9) Hx TIA/stroke w/o resid Code(s): Z86.73 - PRSNL HX OF TIA (TIA), AND CEREB INFRC W/O RESID DEFICITS (10) HTN (hypertension) Code(s): I10 - ESSENTIAL (PRIMARY) HYPERTENSION (11) HLD (hyperlipidemia) Code(s): E78.5 - HYPERLIPIDEMIA, UNSPECIFIED (12) Functional quadriplegia Code(s): R53.2 - FUNCTIONAL QUADRIPLEGIA (13) Prolonged QT interval Code(s): R94.31 - ABNORMAL ELECTROCARDIOGRAM [ECG] [EKG] (14) Anemia Code(s): D64.9 - ANEMIA, UNSPECIFIED Qualifiers: Anemia type: unspecified type Qualified Code(s): D64.9 - Anemia, unspecified plan continue current mgmt cx reports noted continue hydration off the pressors continue to monitor wbc rest as per icu patient improving stop flagyl tomorrow and we will see wbc trending down continue vanco cc time 40 min
--- NOTE | 2017-12-18 14:31 | PN ---
Progress Note, Physician History of Present Illness: Clinically improving. Bump in leukocytosis. Tmax 99 - Current Medication List Current Medications: Active Medications Albuterol Sulfate (Ventolin 0.083% Nebulizer Soln -) 1 amp NEB Q4H PRN PRN Reason: SHORT OF BREATH/WHEEZING Last Admin: 12/14/17 10:35 Dose: 1 amp Albuterol/Ipratropium (Duoneb -) 1 amp NEB RQID [facility] Last Admin: 12/18/17 11:37 Dose: 1 amp Chlorhexidine Gluconate (Hibiclens For Decolonization -) 1 applic TP HS [facility] Last Admin: 12/17/17 22:17 Dose: 1 applic Heparin Sodium (Porcine) (Heparin -) 5,000 unit SQ TID [facility] Last Admin: 12/18/17 06:19 Dose: 5,000 unit Metronidazole (Flagyl 500mg Premixed Ivpb -) 500 mg in 100 mls @ 100 mls/hr IVPB Q8H-IV [facility] Last Admin: 12/18/17 10:33 Dose: 100 mls/hr Levetiracetam (Keppra Oral Solution -) 500 mg GT BID [facility] Last Admin: 12/18/17 10:33 Dose: 500 mg Potassium Phos/Sodium Phos (Phos-Nak Packet -) 1 packet PO BID [facility] Last Admin: 12/18/17 10:33 Dose: 1 packet Ranitidine HCl (Zantac Oral Solution -) 150 mg PO DAILY [facility] Last Admin: 12/18/17 10:33 Dose: 150 mg Vancomycin HCl (Vancomycin Oral Solution) 500 mg GT Q6HPO [facility] Last Admin: 12/18/17 06:19 Dose: 500 mg - Objective Vital Signs: Vital Signs Temperature 98.9 F 12/18/17 06:00 Pulse Rate 115 H 12/18/17 09:37 Respiratory Rate 24 12/18/17 09:37 Blood Pressure 105/56 12/18/17 09:37 O2 Sat by Pulse Oximetry (%) 98 12/18/17 08:27 Constitutional: Yes: No Distress, Calm Labs: CBC, BMP 12/18/17 05:55 12/18/17 05:55 INR, PTT INR 1.37 (0.82-1.09) H 12/11/17 22:30 Problem List - Problems (1) Colitis Code(s): K52.9 - NONINFECTIVE GASTROENTERITIS AND COLITIS, UNSPECIFIED (2) Colitis presumed infectious Code(s): K52.9 - NONINFECTIVE GASTROENTERITIS AND COLITIS, UNSPECIFIED (3) Clostridium difficile diarrhea Code(s): A04.72 - ENTEROCOLITIS D/T CLOSTRIDIUM DIFFICILE, NOT SPCF RECUR Assessment/Plan Clinically better. Continue current care. Cholestyramine ordered..
[2017-12-18] MEDS: CHOLESTYRAMINE/SUCROSE 4 GM PACKET PO SCH (15:38)
[2017-12-18] MEDS: CHLORHEXIDINE GLUCONATE 4% CLEANSER FOR DECOLONIZATION TP SCH (22:41)
[2017-12-19 06:21] LABS: BASO % 0.4 % (0-2.0); EOS % 0.8 % (0-4.5); HEMATOCRIT 24.9 % (32.4-45.2); HEMOGLOBIN 8.2 GM/dL (10.7-15.3); LYMPH % 10.6 % (8-40); MCH 28.8 pg (25.7-33.7); MCHC 32.8 g/dl (32.0-36.0); MEAN CELL VOLUME 87.7 fl (80-96); MEAN PLT VOLUME 7.7 fl (7.5-11.1); MONO % 9.6 % (3.8-10.2); NEUT % 78.6 % (42.8-82.8); PLATELET COUNT 361 K/MM3 (134-434); RBC 2.84 M/mm3 (3.60-5.2); RDW 18.3 % (11.6-15.6); WHITE BLOOD COUNT 24.1 K/mm3 (4.0-10.0)
[2017-12-19 06:43] LABS: ALBUMIN 1.6 g/dl (3.4-5.0); ANION GAP 5 (8-16); BLOOD UREA NITROGEN 9 mg/dL (7-18); CALCIUM 7.5 mg/dL (8.5-10.1); CHLORIDE 119 mmol/L (98-107); CO2 27 mmol/L (21-32); GLUCOSE,RANDOM 135 mg/dL (74-106); MAGNESIUM 1.9 mg/dL (1.8-2.4); POTASSIUM 3.8 mmol/L (3.5-5.1); SODIUM 151 mmol/L (136-145)
[2017-12-19 06:47] LABS: ALK PHOS 65 U/L (45-117); BILIRUBIN,TOTAL 0.3 mg/dL (0.2-1.0); CREATININE 0.7 mg/dL (0.55-1.02); PHOSPHOROUS 3.1 mg/dL (2.5-4.9); SGOT/AST 13 U/L (15-37); SGPT/ALT 11 U/L (12-78)
[2017-12-19] MEDS: ALBUTEROL SO4 2.5/IPRATROPIUM 0.5 INH SOL 3 ML VIAL.NEB. NEB SCH ×4 (07:45→20:39)
[2017-12-19] MEDS ORDERED: DEXTROSE 5%-NORMAL SALINE 1,000 ML IV SCH (07:45)
[2017-12-19] MEDS: HEPARIN NA (PORCINE) 5,000 UNITS/ML 1ML VIAL SQ SCH ×2 (10:00→21:04)
[2017-12-19] MEDS: levETIRAcetam 500 MG/5 ML ORAL SOLUTION (UNIT-DOSE CUPS) GT SCH ×2 (10:01→21:04)
[2017-12-19] MEDS: RANITIDINE HCL 150 MG/10 ML UNIT-DOSE PO SCH (10:01)
[2017-12-19] MEDS: CHOLESTYRAMINE/SUCROSE 4 GM PACKET PO SCH (10:01)
[2017-12-19] MEDS: NAPH,MB-DB/K PH,MBDB POWDER PACKET PO SCH ×2 (10:01→21:05)
--- NOTE | 2017-12-19 12:59 | PN ---
Physical Exam: SUBJECTIVE: Patient awake, A&O x2. C/o dry mouth. OBJECTIVE: GENERAL: The patient is awake, aA&O x2, verbal HEAD: Normal with no signs of trauma, RIJ in place EYES: PERRL, extraocular movements intact, sclera anicteric, conjunctiva clear. No ptosis. NECK: Trachea midline, supple. LUNGS: Breath sounds equal, no accessory muscle use. HEART: Regular rate and rhythm, S1, S2 without murmur, rub or gallop. ABDOMEN: Distended, normoactive bowel sounds, no masses. EXTREMITIES: 2+ pulses, warm, well-perfused, no edema. NEUROLOGICAL: A&O x2 - improved since exam on 12/16 Vital Signs Period Temp Pulse Resp BP Sys/Levine Pulse Ox Last 24 Hr 98 F-98.4 F 109-119 20-29 87-124/59-79 98-99 Laboratory Results - last 24 hr 12/19/17 12/19/17 05:30 05:30 WBC 24.1 H RBC 2.84 L Hgb 8.2 L Hct 24.9 L MCV 87.7 MCH 28.8 MCHC 32.8 RDW 18.3 H Plt Count 361 MPV 7.7 Neutrophils % 78.6 Lymphocytes % 10.6 Monocytes % 9.6 Eosinophils % 0.8 Basophils % 0.4 Sodium 151 H Potassium 3.8 Chloride 119 H Carbon Dioxide 27 Anion Gap 5 L BUN 9 Creatinine 0.7 Creat Clearance w eGFR > 60 Random Glucose 135 H Calcium 7.5 L Phosphorus 3.1 Magnesium 1.9 Total Bilirubin 0.3 D AST 13 L ALT 11 L Alkaline Phosphatase 65 Total Protein 5.0 L Albumin 1.6 L Active Medications Generic Name Dose Route Start Last Admin Trade Name Freq PRN Reason Stop Dose Admin Albuterol Sulfate 1 amp 12/13/17 12:30 12/14/17 10:35 Ventolin 0.083% Nebulizer Soln - NEB 1 amp Q4H PRN Administration SHORT OF BREATH/WHEEZING Albuterol/Ipratropium 1 amp 12/15/17 12:00 12/19/17 11:19 Duoneb - NEB 1 amp RQID [facility] Administration Chlorhexidine Gluconate 1 applic 12/12/17 22:00 12/18/17 22:41 Hibiclens For Decolonization - TP 1 applic HS [facility] Administration Cholestyramine Resin 4 gm 05/20/18 14:45 12/19/17 10:01 Questran Packet - PO 4 gm DAILY [facility] Administration Heparin Sodium (Porcine) 5,000 unit 12/18/17 22:00 12/19/17 10:00 Heparin - SQ 5,000 unit BID [facility] Administration Metronidazole 500 mg in 100 mls @ 100 mls/hr 12/12/17 11:00 12/19/17 10:00 Flagyl 500mg Premixed Ivpb - IVPB 100 mls/hr Q8H-IV [facility] Administration Levetiracetam 500 mg 12/13/17 22:00 12/19/17 10:01 Keppra Oral Solution - GT 500 mg BID [facility] Administration Potassium Phos/Sodium Phos 1 packet 12/15/17 10:00 12/19/17 10:01 Phos-Nak Packet - PO 1 packet BID [facility] Administration Ranitidine HCl 150 mg 12/16/17 10:00 12/19/17 10:01 Zantac Oral Solution - PO 150 mg DAILY [facility] Administration ASSESSMENT/PLAN: Patient is a 67 year old female with a PMH of CVA (residual R sided weakness), dementia, PEG tube, HLD, epilepsy who presented to ED on 12/11 from assisted living facility for hypotension and hypoxia. Patient recently tested positive for C. Diff (12/09) on Flagyll and confirmed by repeat testing at our facility ( 12/14). 1. SEPSIS 2/2 to MODS vs. C. Difficile Colitis - Febrile (102.3) and hypotensive 71/44 @ presentation on 12/11 - Leukocytosis improving 22.4 today (12/19) <-- 33.9 (12/15), improving <-- 50 < -- 40 <-- 35 - Currently afebrile - Patient weaned off pressors -24 hour BP 90's/50's-60's - Lactic Acidosis resolved - Will continue close BP monitoring with patient off pressors - Continue Vancomycin, Flagyll 2. GI - Fulminant C. Diff Colitis with improving infection WBC 24 today (12/19) <--33 <-- 50 - Patient vomited overnight - CT Abdomen/Pelvis shows diffuse colonic thickening, partial illeus, complex cystic mass in urethra - Will hold tube feeds today (12/19); reassess tomorrow (12/20) - Continue Flagyll; close monitoring for toxic megacolon 3. CARDIAC - Hypotensive w/ 24 hour BP range 90's-50's-60's continue to monitor - Patient off pressors as of 12/15 - CVP 9-12; - Continue close BP monitoring 4. PULMONARY - SpO2 98% on 4 L NC; tachypneic, wheezing on PE - CXR shows R sided atelectasis, c/w with previous CXR (12/18) - Continued scheduled Duo-Neb 5. RENAL - NICOLÁS resolved 0.7 Cr/9 BUN over the last 48 hours - Initial Cr 2.8 likely pre-renal 2/2 to hypovolemia 2/2 to C Diff colitis diarrhea - Renal/Bladder U/S unremarkable - Continue to monitor 6. - UA shows 2+ Leukocyte Esterase, 71 WBC - Continue empiric antibiotics 7. NORMOCYTIC ANEMIA - 2/2 to Colitis vs. Chronic Disease vs CRYSTAL - Hb 8.0 <-- 9.1 (12/13) <-- 9.1 < -- 8.8, no previous Hb in system - FOBT pending 8. NEUROLOGIC - Patient neurologically improving clinically, A&O x2 today - Continue to monitor 9. HYPERNATREMIA - Na 151 - S/p Dextrose - Repeat CMP pending FEN - Electrolyte monitoring and replacement as indicated above - J-tube feeding held today 2/2 to vomiting; repeat trial tomorrow 12/20 PROPHYLAXIS Heparin SQ GI prophylaxis switched to H2 iron 2/2 to hypomagnesia SCDs FULL CODE Visit type - Emergency Visit Emergency Visit: No - New Patient This patient is new to me today: No - Critical Care Critical Care patient: No
[2017-12-19 13:02] LABS: ALBUMIN 1.4 g/dl (3.4-5.0); ALK PHOS 60 U/L (45-117); ANION GAP 5 (8-16); BILIRUBIN,TOTAL 0.2 mg/dL (0.2-1.0); BLOOD UREA NITROGEN 9 mg/dL (7-18); CALCIUM 7.2 mg/dL (8.5-10.1); CHLORIDE 119 mmol/L (98-107); CO2 26 mmol/L (21-32); CREATININE 0.7 mg/dL (0.55-1.02); GLUCOSE,RANDOM 165 mg/dL (74-106); POTASSIUM 3.6 mmol/L (3.5-5.1); SGOT/AST 13 U/L (15-37); SGPT/ALT 11 U/L (12-78); SODIUM 150 mmol/L (136-145); TOT PROT 4.7 g/dl (6.4-8.2)
[2017-12-19] MEDS ORDERED: PT OWN MED DRAWER 7, Y5N ONE ×2 (13:34→21:01)
--- NOTE | 2017-12-19 13:59 | PN ---
Teaching Attending Note Name of Resident: Candy Pina ATTENDING PHYSICIAN STATEMENT I saw and evaluated the patient. I reviewed the resident's note and discussed the case with the resident. I agree with the resident's findings and plan as documented. SUBJECTIVE: Patient seen and examined in the ICU. Awake and interactive. Denies CP or SOB. Currently off pressors. Intake & Output 12/16/17 12/17/17 12/18/17 12/19/17 23:59 23:59 23:59 23:59 Intake Total 872 1440 1807 1203 Output Total 475 1100 900 Balance 397 691 086 2646 Weight 183 lb 2 oz 185 lb 1 oz 182 lb 8 oz Last Vital Signs Temp Pulse Resp BP Pulse Ox 98.2 F 112 H 23 95/59 99 12/19/17 12:00 12/19/17 12:00 12/19/17 12:00 12/19/17 12:00 12/19/17 08:00 Active Medications Albuterol Sulfate (Ventolin 0.083% Nebulizer Soln -) 1 amp NEB Q4H PRN PRN Reason: SHORT OF BREATH/WHEEZING Last Admin: 12/14/17 10:35 Dose: 1 amp Albuterol/Ipratropium (Duoneb -) 1 amp NEB RQID [facility] Last Admin: 12/19/17 11:19 Dose: 1 amp Chlorhexidine Gluconate (Hibiclens For Decolonization -) 1 applic TP HS [facility] Last Admin: 12/18/17 22:41 Dose: 1 applic Cholestyramine Resin (Questran Packet -) 4 gm PO DAILY [facility] Last Admin: 12/19/17 10:01 Dose: 4 gm Heparin Sodium (Porcine) (Heparin -) 5,000 unit SQ BID [facility] Last Admin: 12/19/17 10:00 Dose: 5,000 unit Metronidazole (Flagyl 500mg Premixed Ivpb -) 500 mg in 100 mls @ 100 mls/hr IVPB Q8H-IV [facility] Last Admin: 12/19/17 10:00 Dose: 100 mls/hr Levetiracetam (Keppra Oral Solution -) 500 mg GT BID [facility] Last Admin: 12/19/17 10:01 Dose: 500 mg Potassium Phos/Sodium Phos (Phos-Nak Packet -) 1 packet PO BID [facility] Last Admin: 12/19/17 10:01 Dose: 1 packet Ranitidine HCl (Zantac Oral Solution -) 150 mg PO DAILY [facility] Last Admin: 12/19/17 10:01 Dose: 150 mg Gen: Awake and responsive, NAD Heart: S1S2, tachycardia Lung: Scattered bilateral rhonchi Abd: softly distended Ext: less edema Laboratory Results - last 24 hr 12/19/17 12/19/17 12/19/17 05:30 05:30 12:15 WBC 24.1 H RBC 2.84 L Hgb 8.2 L Hct 24.9 L MCV 87.7 MCH 28.8 MCHC 32.8 RDW 18.3 H Plt Count 361 MPV 7.7 Neutrophils % 78.6 Lymphocytes % 10.6 Monocytes % 9.6 Eosinophils % 0.8 Basophils % 0.4 Sodium 151 H 150 H Potassium 3.8 3.6 Chloride 119 H 119 H Carbon Dioxide 27 26 Anion Gap 5 L 5 L BUN 9 9 Creatinine 0.7 0.7 Creat Clearance w eGFR > 60 > 60 Random Glucose 135 H 165 H Calcium 7.5 L 7.2 L Phosphorus 3.1 Magnesium 1.9 Total Bilirubin 0.3 D 0.2 D AST 13 L 13 L ALT 11 L 11 L Alkaline Phosphatase 65 60 Total Protein 5.0 L 4.7 L Albumin 1.6 L 1.4 L A/P C Diff Colitis Septic Shock resolving Acute Kidney Injury improving Lactic Acidosis resolved Volume Overload h/o CVA Dementia - ABX per ID - monitor off pressors, maintain MAP >65 - Hold lasix for now unless signs of volume overload - monitor urine output, creatinine - replete lytes - aspiration precautions - O2 to keep SpO2 >90% - enteral feeds - DVT/GI prophylaxis - 4W/4S monitoring Dr Early Critical care time spent in reviewing chart, evaluating patient and formulating plan 35 min
--- NOTE | 2017-12-19 14:29 | PN ---
Progress Note (short form) - Note Progress Note: Pt seen/ examined i icu chart reviewed Awake/ confused afebrile diarrhea improved Vital Signs Temp 98.2 F 12/19/17 12:00 Pulse 112 H 12/19/17 12:00 Resp 23 12/19/17 12:00 BP 95/59 12/19/17 12:00 Pulse Ox 99 12/19/17 08:00 Intake & Output 12/18/17 12/19/17 12/19/17 23:59 11:59 23:59 Intake Total 1013 35 1168 Output Total 900 Balance 135 78 8039 Weight 182 lb 8 oz Intake: IV 25 35 1068 D5-Ns - 1,000 ml @ 240 1068 mls/hr IV ASDIR [facility] Rx#: [id number] tlc 25 35 IVPB 100 Tube Feeding 588 Tube Irrigant 400 Output: Urine 900 Handy 900 Other: Voiding Method Indwelling Catheter Indwelling Catheter Bowel Movement Yes Yes: large and loose Weight Measurement Method Built in [facility] Active Medications Albuterol Sulfate (Ventolin 0.083% Nebulizer Soln -) 1 amp NEB Q4H PRN PRN Reason: SHORT OF BREATH/WHEEZING Last Admin: 12/14/17 10:35 Dose: 1 amp Albuterol/Ipratropium (Duoneb -) 1 amp NEB RQID [facility] Last Admin: 12/19/17 11:19 Dose: 1 amp Chlorhexidine Gluconate (Hibiclens For Decolonization -) 1 applic TP HS [facility] Last Admin: 12/18/17 22:41 Dose: 1 applic Cholestyramine Resin (Questran Packet -) 4 gm PO DAILY [facility] Last Admin: 12/19/17 10:01 Dose: 4 gm Heparin Sodium (Porcine) (Heparin -) 5,000 unit SQ BID [facility] Last Admin: 12/19/17 10:00 Dose: 5,000 unit Metronidazole (Flagyl 500mg Premixed Ivpb -) 500 mg in 100 mls @ 100 mls/hr IVPB Q8H-IV [facility] Last Admin: 12/19/17 10:00 Dose: 100 mls/hr Levetiracetam (Keppra Oral Solution -) 500 mg GT BID [facility] Last Admin: 12/19/17 10:01 Dose: 500 mg Potassium Phos/Sodium Phos (Phos-Nak Packet -) 1 packet PO BID [facility] Last Admin: 12/19/17 10:01 Dose: 1 packet Ranitidine HCl (Zantac Oral Solution -) 150 mg PO DAILY [facility] Last Admin: 12/19/17 10:01 Dose: 150 mg CBC, BMP 12/19/17 05:30 12/19/17 12:15 Physical. Constitutional: Yes: No Distress. awake/ confused. Cardiovascular: Yes: Regular Rate and Rhythm Respiratory: Yes: Diminished Gastrointestinal: Yes: Normal Bowel Sounds, Soft, . No: Tenderness Edema: No Assessment/Plan Overall improving slowly continue present care c diff precautions Abx per i/d will follow Discussed with nursing staff/ resident team. Problem List - Problems (1) Clostridium difficile diarrhea Code(s): A04.72 - ENTEROCOLITIS D/T CLOSTRIDIUM DIFFICILE, NOT SPCF RECUR (2) Functional quadriplegia Code(s): R53.2 - FUNCTIONAL QUADRIPLEGIA (3) Hx TIA/stroke w/o resid Code(s): Z86.73 - PRSNL HX OF TIA (TIA), AND CEREB INFRC W/O RESID DEFICITS (4) Severe sepsis Code(s): A41.9 - SEPSIS, UNSPECIFIED ORGANISM; R65.20 - SEVERE SEPSIS WITHOUT SEPTIC SHOCK
--- NOTE | 2017-12-19 17:25 | PN ---
Progress Note, Physician History of Present Illness: had one episode of dirrhoea still with confusion and high wbc - Current Medication List Current Medications: Active Medications Albuterol Sulfate (Ventolin 0.083% Nebulizer Soln -) 1 amp NEB Q4H PRN PRN Reason: SHORT OF BREATH/WHEEZING Last Admin: 12/14/17 10:35 Dose: 1 amp Albuterol/Ipratropium (Duoneb -) 1 amp NEB RQID [facility] Last Admin: 12/19/17 16:16 Dose: 1 amp Chlorhexidine Gluconate (Hibiclens For Decolonization -) 1 applic TP HS [facility] Last Admin: 12/18/17 22:41 Dose: 1 applic Cholestyramine Resin (Questran Packet -) 4 gm PO DAILY [facility] Last Admin: 12/19/17 10:01 Dose: 4 gm Heparin Sodium (Porcine) (Heparin -) 5,000 unit SQ BID [facility] Last Admin: 12/19/17 10:00 Dose: 5,000 unit Levetiracetam (Keppra Oral Solution -) 500 mg GT BID [facility] Last Admin: 12/19/17 10:01 Dose: 500 mg Potassium Phos/Sodium Phos (Phos-Nak Packet -) 1 packet PO BID [facility] Last Admin: 12/19/17 10:01 Dose: 1 packet Ranitidine HCl (Zantac Oral Solution -) 150 mg PO DAILY [facility] Last Admin: 12/19/17 10:01 Dose: 150 mg Vancomycin HCl (Vancomycin Oral Solution) 125 mg PO Q6HPO [facility] - Objective Vital Signs: Vital Signs Temperature 98.3 F 12/19/17 16:00 Pulse Rate 118 H 12/19/17 16:00 Respiratory Rate 22 12/19/17 16:00 Blood Pressure 98/57 12/19/17 16:00 O2 Sat by Pulse Oximetry (%) 99 12/19/17 08:00 Constitutional: Yes: No Distress, Calm Cardiovascular: Yes: Regular Rate and Rhythm Respiratory: Yes: Regular, CTA Bilaterally Gastrointestinal: Yes: Normal Bowel Sounds, Soft Musculoskeletal: Yes: WNL Extremities: Yes: WNL Neurological: Yes: Alert, Other Psychiatric: Yes: Alert Labs: CBC, BMP 12/19/17 05:30 12/19/17 12:15 INR, PTT INR 1.37 (0.82-1.09) H 12/11/17 22:30 Assessment/Plan wbc trending down Problem List - Problem (1) MODS (multiple organ dysfunction syndrome) Code(s): [id number] - (2) Severe sepsis Code(s): A41.9 - SEPSIS, UNSPECIFIED ORGANISM; R65.20 - SEVERE SEPSIS WITHOUT SEPTIC SHOCK (3) Clostridium difficile diarrhea Code(s): A04.72 - ENTEROCOLITIS D/T CLOSTRIDIUM DIFFICILE, NOT SPCF RECUR (4) Hypernatremia Code(s): E87.0 - HYPEROSMOLALITY AND HYPERNATREMIA (5) Chronic respiratory failure Code(s): J96.10 - CHRONIC RESPIRATORY FAILURE, UNSP W HYPOXIA OR HYPERCAPNIA (6) Seizures Code(s): R56.9 - UNSPECIFIED CONVULSIONS (7) Bladder mass Code(s): N32.89 - OTHER SPECIFIED DISORDERS OF BLADDER (8) MDD (major depressive disorder) Code(s): F32.9 - MAJOR DEPRESSIVE DISORDER, SINGLE EPISODE, UNSPECIFIED (9) Hx TIA/stroke w/o resid Code(s): Z86.73 - PRSNL HX OF TIA (TIA), AND CEREB INFRC W/O RESID DEFICITS (10) HTN (hypertension) Code(s): I10 - ESSENTIAL (PRIMARY) HYPERTENSION (11) HLD (hyperlipidemia) Code(s): E78.5 - HYPERLIPIDEMIA, UNSPECIFIED (12) Functional quadriplegia Code(s): R53.2 - FUNCTIONAL QUADRIPLEGIA (13) Prolonged QT interval Code(s): R94.31 - ABNORMAL ELECTROCARDIOGRAM [ECG] [EKG] (14) Anemia Code(s): D64.9 - ANEMIA, UNSPECIFIED Qualifiers: Anemia type: unspecified type Qualified Code(s): D64.9 - Anemia, unspecified plan will stop falgyl continue vanco close monitoring monitor wbc still samuel the higher side patient otherwise stable cc time 40 min
[2017-12-19] MEDS: VANCOMYCIN 250 MG/5 ML ORAL SOLUTION PO SCH (18:33)
--- NOTE | 2017-12-19 19:38 | PN ---
Progress Note (short form) - Note Progress Note: Central line was removed without any complication pt is laying down in the bed with NAD . continue to monitor in ICU
[2017-12-19] MEDS: CHLORHEXIDINE GLUCONATE 4% CLEANSER FOR DECOLONIZATION TP SCH (21:04)
[2017-12-20] MEDS: VANCOMYCIN 250 MG/5 ML ORAL SOLUTION PO SCH ×5 (02:31→23:11)
[2017-12-20 07:22] LABS: HEMATOCRIT 24.1 % (32.4-45.2); HEMOGLOBIN 7.9 GM/dL (10.7-15.3); MCH 29.3 pg (25.7-33.7); MCHC 32.6 g/dl (32.0-36.0); MEAN CELL VOLUME 89.7 fl (80-96); MEAN PLT VOLUME 7.9 fl (7.5-11.1); PLATELET COUNT 392 K/MM3 (134-434); RBC 2.69 M/mm3 (3.60-5.2); RDW 18.3 % (11.6-15.6); WHITE BLOOD COUNT 23.3 K/mm3 (4.0-10.0)
[2017-12-20 07:55] LABS: CHLORIDE 118 mmol/L (98-107); POTASSIUM 3.6 mmol/L (3.5-5.1); SODIUM 149 mmol/L (136-145)
[2017-12-20] MEDS: ALBUTEROL SO4 2.5/IPRATROPIUM 0.5 INH SOL 3 ML VIAL.NEB. NEB SCH (08:07)
[2017-12-20 08:19] LABS: ALBUMIN 1.5 g/dl (3.4-5.0); ALK PHOS 59 U/L (45-117); ANION GAP 8 (8-16); BILIRUBIN,TOTAL 0.4 mg/dL (0.2-1.0); BLOOD UREA NITROGEN 10 mg/dL (7-18); CALCIUM 7.2 mg/dL (8.5-10.1); CO2 23 mmol/L (21-32); CREATININE 0.7 mg/dL (0.55-1.02); GLUCOSE,RANDOM 90 mg/dL (74-106); SGOT/AST 15 U/L (15-37); SGPT/ALT 11 U/L (12-78); TOT PROT 4.8 g/dl (6.4-8.2)
--- NOTE | 2017-12-20 08:40 | PN ---
Progress Note (short form) - Note Progress Note: awake No distress confused afebrile all follow-ups noted WBC is still elevated Vital Signs Temp 98.6 F 12/20/17 02:00 Pulse 110 H 12/20/17 08:00 Resp 24 12/20/17 08:00 BP 103/63 12/20/17 08:00 Pulse Ox 100 12/20/17 08:10 Intake & Output 12/19/17 12/19/17 12/20/17 11:59 23:59 11:59 Intake Total 35 1502 1116 Output Total 325 Balance 35 1177 1116 Weight 182 lb 8 oz 181 lb 9 oz Intake: IV 35 1068 D5-Ns - 1,000 ml @ 240 1068 mls/hr IV ASDIR [facility] Rx#: [id number] tlc 35 IVPB 200 Oral 0 Tube Feeding 45 360 Tube Irrigant 189 756 Output: Urine 325 Handy 325 Other: Voiding Method Indwelling Catheter Indwelling Catheter Bowel Movement Yes Yes # Bowel Movements 1 1 Weight Measurement Method Built in [facility] Built in [facility] Active Medications Albuterol Sulfate (Ventolin 0.083% Nebulizer Soln -) 1 amp NEB Q4H PRN PRN Reason: SHORT OF BREATH/WHEEZING Last Admin: 12/14/17 10:35 Dose: 1 amp Albuterol/Ipratropium (Duoneb -) 1 amp NEB RQID [facility] Last Admin: 12/20/17 08:07 Dose: 1 amp Chlorhexidine Gluconate (Hibiclens For Decolonization -) 1 applic TP HS [facility] Last Admin: 12/19/17 21:04 Dose: 1 applic Cholestyramine Resin (Questran Light Packet -) 4 gm PO DAILY [facility] Heparin Sodium (Porcine) (Heparin -) 5,000 unit SQ BID [facility] Last Admin: 12/19/17 21:04 Dose: 5,000 unit Levetiracetam (Keppra Oral Solution -) 500 mg GT BID [facility] Last Admin: 12/19/17 21:04 Dose: 500 mg Potassium Phos/Sodium Phos (Phos-Nak Packet -) 1 packet PO BID [facility] Last Admin: 12/19/17 21:05 Dose: 1 packet Ranitidine HCl (Zantac Oral Solution -) 150 mg PO DAILY [facility] Last Admin: 12/19/17 10:01 Dose: 150 mg Vancomycin HCl (Vancomycin Oral Solution) 125 mg PO Q6HPO [facility] Last Admin: 12/20/17 06:32 Dose: 125 mg CBC, BMP 12/20/17 05:58 12/20/17 05:58 Physical. Constitutional: Yes: No Distress. awake/ confused. Cardiovascular: Yes: Regular Rate and Rhythm Respiratory: Yes: Diminished Gastrointestinal: Yes: Normal Bowel Sounds, Soft, . No: Tenderness Edema: No Assessment/Plan Overall improving slowly Still significant leukocytosis continue present care c diff precautions Abx per i/d monitor lites will follow Discussed with resident team. Problem List - Problems (1) Clostridium difficile diarrhea Code(s): A04.72 - ENTEROCOLITIS D/T CLOSTRIDIUM DIFFICILE, NOT SPCF RECUR (2) Functional quadriplegia Code(s): R53.2 - FUNCTIONAL QUADRIPLEGIA (3) Hx TIA/stroke w/o resid Code(s): Z86.73 - PRSNL HX OF TIA (TIA), AND CEREB INFRC W/O RESID DEFICITS (4) Severe sepsis Code(s): A41.9 - SEPSIS, UNSPECIFIED ORGANISM; R65.20 - SEVERE SEPSIS WITHOUT SEPTIC SHOCK
[2017-12-20] MEDS ORDERED: PT OWN MED DRAWER 7, Y5N ONE (10:32)
[2017-12-20] MEDS: levETIRAcetam 500 MG/5 ML ORAL SOLUTION (UNIT-DOSE CUPS) GT SCH ×2 (10:33→21:13)
[2017-12-20] MEDS: NAPH,MB-DB/K PH,MBDB POWDER PACKET PO SCH ×2 (10:33→21:13)
[2017-12-20] MEDS: CHOLESTYRAMINE/ASPARTAME 4 GM PACKET PO SCH (10:33)
[2017-12-20] MEDS: RANITIDINE HCL 150 MG/10 ML UNIT-DOSE PO SCH (10:34)
--- NOTE | 2017-12-20 11:59 | PN ---
Teaching Attending Note Name of Resident: Candy Pina ATTENDING PHYSICIAN STATEMENT I saw and evaluated the patient. I reviewed the resident's note and discussed the case with the resident. I agree with the resident's findings and plan as documented. SUBJECTIVE: Patient seen and examined in the ICU. Awake and interactive. Denies CP or SOB. Apparently had an episode of AMS that may have been an acute delerium. Remains off pressors. Intake & Output 12/17/17 12/18/17 12/19/17 12/20/17 23:59 23:59 23:59 23:59 Intake Total 1440 1807 1537 1116 Output Total 1100 900 325 Balance 528 301 5293 1116 Weight 183 lb 2 oz 185 lb 1 oz 182 lb 8 oz 181 lb 9 oz Last Vital Signs Temp Pulse Resp BP Pulse Ox 99.4 F 106 H 25 H 91/61 100 12/20/17 10:00 12/20/17 10:00 12/20/17 10:00 12/20/17 10:00 12/20/17 09:00 Active Medications Albuterol Sulfate (Ventolin 0.083% Nebulizer Soln -) 1 amp NEB Q4H PRN PRN Reason: SHORT OF BREATH/WHEEZING Last Admin: 12/14/17 10:35 Dose: 1 amp Albuterol/Ipratropium (Duoneb -) 1 amp NEB RQID [facility] Last Admin: 12/20/17 08:07 Dose: 1 amp Chlorhexidine Gluconate (Hibiclens For Decolonization -) 1 applic TP HS [facility] Last Admin: 12/19/17 21:04 Dose: 1 applic Cholestyramine Resin (Questran Light Packet -) 4 gm PO DAILY [facility] Last Admin: 12/20/17 10:33 Dose: 4 gm Heparin Sodium (Porcine) (Heparin -) 5,000 unit SQ BID [facility] Last Admin: 12/19/17 21:04 Dose: 5,000 unit Levetiracetam (Keppra Oral Solution -) 500 mg GT BID [facility] Last Admin: 12/20/17 10:33 Dose: 500 mg Potassium Phos/Sodium Phos (Phos-Nak Packet -) 1 packet PO BID [facility] Last Admin: 12/20/17 10:33 Dose: 1 packet Ranitidine HCl (Zantac Oral Solution -) 150 mg PO DAILY [facility] Last Admin: 12/20/17 10:34 Dose: 150 mg Vancomycin HCl (Vancomycin Oral Solution) 125 mg PO Q6HPO [facility] Last Admin: 12/20/17 06:32 Dose: 125 mg Gen: Awake and responsive, NAD Heart: S1S2, tachycardia Lung: Scattered bilateral rhonchi Abd: softly distended Ext: less edema Laboratory Results - last 24 hr 12/19/17 12/20/17 12/20/17 12:15 05:58 05:58 WBC 23.3 H RBC 2.69 L Hgb 7.9 L Hct 24.1 L MCV 89.7 MCH 29.3 MCHC 32.6 RDW 18.3 H Plt Count 392 MPV 7.9 Sodium 150 H 149 H Potassium 3.6 3.6 Chloride 119 H 118 H Carbon Dioxide 26 23 Anion Gap 5 L 8 BUN 9 10 Creatinine 0.7 0.7 Creat Clearance w eGFR > 60 > 60 Random Glucose 165 H 90 Calcium 7.2 L 7.2 L Total Bilirubin 0.2 D 0.4 D AST 13 L 15 ALT 11 L 11 L Alkaline Phosphatase 60 59 Total Protein 4.7 L 4.8 L Albumin 1.4 L 1.5 L A/P C Diff Colitis Septic Shock resolving Acute Kidney Injury improving Lactic Acidosis resolved Volume Overload h/o CVA Dementia - ABX per ID - Hold lasix for now unless signs of volume overload - monitor urine output, creatinine - replete lytes - aspiration precautions - O2 to keep SpO2 >90% - enteral feeds - DVT/GI prophylaxis - 4W/4S monitoring Dr Early Critical care time spent in reviewing chart, evaluating patient and formulating plan 35 min
[2017-12-20] MEDS: HEPARIN NA (PORCINE) 5,000 UNITS/ML 1ML VIAL SQ SCH ×2 (12:31→21:14)
--- NOTE | 2017-12-20 12:32 | PN ---
Progress Note (short form) - Note Progress Note: Renal follow up for NICOLÁS Pt seen and examined in the ICU awake and alert no acute complaints no sob, chest pain Vital Signs Temperature 99.4 F 12/20/17 10:00 Pulse Rate 110 H 12/20/17 12:00 Respiratory Rate 28 H 12/20/17 12:00 Blood Pressure 90/60 12/20/17 12:00 O2 Sat by Pulse Oximetry (%) 98 12/20/17 12:14 Intake & Output 12/17/17 12/18/17 12/19/17 12/20/17 23:59 23:59 23:59 23:59 Intake Total 1440 1807 1537 1316 Output Total 1100 900 325 Balance 542 976 8329 1316 Weight 83.064 kg 83.943 kg 82.781 kg 82.355 kg NAD, sleeping tachycardic, no murmur Dec BS distended abd no LE edema CBC, BMP 12/20/17 05:58 12/20/17 05:58 Current Medications Albuterol Sulfate (Ventolin 0.083% Nebulizer Soln -) 1 amp NEB Q4H PRN PRN Reason: SHORT OF BREATH/WHEEZING Last Admin: 12/14/17 10:35 Dose: 1 amp Chlorhexidine Gluconate (Hibiclens For Decolonization -) 1 applic TP HS [facility] Last Admin: 12/19/17 21:04 Dose: 1 applic Cholestyramine Resin (Questran Light Packet -) 4 gm PO DAILY [facility] Last Admin: 12/20/17 10:33 Dose: 4 gm Heparin Sodium (Porcine) (Heparin -) 5,000 unit SQ BID [facility] Last Admin: 12/19/17 21:04 Dose: 5,000 unit Levetiracetam (Keppra Oral Solution -) 500 mg GT BID [facility] Last Admin: 12/20/17 10:33 Dose: 500 mg Potassium Phos/Sodium Phos (Phos-Nak Packet -) 1 packet PO BID [facility] Last Admin: 12/20/17 10:33 Dose: 1 packet Ranitidine HCl (Zantac Oral Solution -) 150 mg PO DAILY [facility] Last Admin: 12/20/17 10:34 Dose: 150 mg Vancomycin HCl (Vancomycin Oral Solution) 125 mg PO Q6HPO [facility] Last Admin: 12/20/17 06:32 Dose: 125 mg 67 year old woman with PMhx of CVS, Dementia, PEG with recent Cdiff admission who presented with hypotension and found to have acute sepsis with NICOLÁS #Acute Kidney Injury secondary to renal hypoprofusion +/- ATN in setting of Sepsis #Lactic acidosis #Colitis/C-diff #Sepsis with hypotension #Anemia #Hypokalemia #Hypernatremia Renal function stable free water deficit is ~3.5L continue continous free water with tube feeds and give additional 250ml Q6h continue supportive care trend renal function and electrolytes Constantino Clemons DO
--- NOTE | 2017-12-20 13:06 | PN ---
Physical Exam: SUBJECTIVE: Patient alert, A&O x2 (able to self identify and identify she is at the hospital). Clinical staff note period of intermittent confusion. Patient denies any chest pain, dyspnea, abdominal pain. OBJECTIVE: GENERAL: The patient is awake, intermittently aA&O x2, verbal HEAD: Normal with no signs of trauma, no erythema/edema @ site of previous RIJ EYES: PERRL, sclera anicteric, conjunctiva clear. No ptosis. NECK: Trachea midline, supple. LUNGS: Breath sounds equal, no accessory muscle use. HEART: Regular rate and rhythm, S1, S2 without murmur, rub or gallop. ABDOMEN: Distended, normoactive bowel sounds, no masses. EXTREMITIES: 2+ pulses, warm, well-perfused, no edema. NEUROLOGICAL: intermittently A&O x2 Vital Signs Period Temp Pulse Resp BP Sys/Levine Pulse Ox Last 24 Hr 98.0 F-99.8 F 105-118 20-28 86-104/53-69 98-100 Laboratory Results - last 24 hr 12/20/17 12/20/17 05:58 05:58 WBC 23.3 H RBC 2.69 L Hgb 7.9 L Hct 24.1 L MCV 89.7 MCH 29.3 MCHC 32.6 RDW 18.3 H Plt Count 392 MPV 7.9 Sodium 149 H Potassium 3.6 Chloride 118 H Carbon Dioxide 23 Anion Gap 8 BUN 10 Creatinine 0.7 Creat Clearance w eGFR > 60 Random Glucose 90 Calcium 7.2 L Total Bilirubin 0.4 D AST 15 ALT 11 L Alkaline Phosphatase 59 Total Protein 4.8 L Albumin 1.5 L Active Medications Generic Name Dose Route Start Last Admin Trade Name Freq PRN Reason Stop Dose Admin Albuterol Sulfate 1 amp 12/13/17 12:30 12/14/17 10:35 Ventolin 0.083% Nebulizer Soln - NEB 1 amp Q4H PRN Administration SHORT OF BREATH/WHEEZING Chlorhexidine Gluconate 1 applic 12/12/17 22:00 12/19/17 21:04 Hibiclens For Decolonization - TP 1 applic HS [facility] Administration Cholestyramine Resin 4 gm 12/20/17 10:00 12/20/17 10:33 Questran Light Packet - PO 4 gm DAILY [facility] Administration Heparin Sodium (Porcine) 5,000 unit 12/18/17 22:00 12/20/17 12:31 Heparin - SQ 5,000 unit BID [facility] Administration Levetiracetam 500 mg 12/13/17 22:00 12/20/17 10:33 Keppra Oral Solution - GT 500 mg BID [facility] Administration Potassium Phos/Sodium Phos 1 packet 12/15/17 10:00 12/20/17 10:33 Phos-Nak Packet - PO 1 packet BID [facility] Administration Ranitidine HCl 150 mg 12/16/17 10:00 12/20/17 10:34 Zantac Oral Solution - PO 150 mg DAILY [facility] Administration Vancomycin HCl 125 mg 12/19/17 18:00 12/20/17 12:32 Vancomycin Oral Solution PO 125 mg Q6HPO [facility] Administration ASSESSMENT/PLAN: Patient is a 67 year old female with a PMH of CVA (residual R sided weakness), dementia, PEG tube, HLD, epilepsy who presented to ED on 12/11 from assisted living facility for hypotension and hypoxia. Patient recently tested positive for C. Diff (12/09) on Flagyll and confirmed by repeat testing at our facility ( 12/14). 1. SEPSIS 2/2 to MODS vs. C. Difficile Colitis - Febrile (102.3) and hypotensive 71/44 @ presentation on 12/11 - Leukocytosis stable 23 today <-- 22.4 (12/19) <-- 33.9 (12/15), improving <- - 50 <-- 40 <-- 35 - Currently afebrile - Patient weaned off pressors 48 hours previous -24 hour BP 90's-100's/50's-60's - Lactic Acidosis resolved - Will continue close BP monitoring with patient off pressors - Continue Vancomycin, Flagyll 2. GI - Fulminant C. Diff Colitis with improving infection WBC 23 today (12/20) <--33 <-- 50 - Patient tolerating tube feeds today - CT Abdomen/Pelvis shows diffuse colonic thickening, partial illeus, complex cystic mass in urethra - Continue Flagyll; close monitoring for toxic megacolon 3. CARDIAC - Hypotensive w/ 24 hour BP range 90's-100's/50's-60's continue to monitor - Patient off pressors as of 12/18 - Continue close BP monitoring 4. PULMONARY - SpO2 98% on 4 L NC; tachypneic, wheezing on PE - CXR shows R sided atelectasis, c/w with previous CXR (12/18) - Continued scheduled Duo-Neb 5. RENAL - NICOLÁS resolved 0.7 Cr/9-10 BUN over the last 72 hours - Initial Cr 2.8 likely pre-renal 2/2 to hypovolemia 2/2 to C Diff colitis diarrhea - Renal/Bladder U/S unremarkable - 250 mL q6H as per nephro - Continue to monitor 6. - UA shows 2+ Leukocyte Esterase, 71 WBC - Continue empiric antibiotics 7. NORMOCYTIC ANEMIA - 2/2 to Colitis vs. Chronic Disease vs CRYSTAL - Hb 7.9 <-- 8.0 <-- 9.1 (12/13) <-- 9.1 < -- 8.8, no previous Hb in system - FOBT pending 8. NEUROLOGIC - Patient neurologically waxing and waning, intermittently A&O x2 today - Head CT pending - Continue to monitor 9. HYPERNATREMIA - Na 149 - S/p Dextrose with Na of 151 yesterday (12/20) - Daily monitoring FEN - Electrolyte monitoring and replacement as indicated above - Patient tolerating J-tube feeds today (12/20) after feeding withheld yesterday (12/19) PROPHYLAXIS Heparin SQ GI prophylaxis switched to H2 iron 2/2 to hypomagnesia SCDs Disposition: Patient to be transferred to inpatient medicine floor 4W or 4S for continuing care. FULL CODE Visit type - Emergency Visit Emergency Visit: No - New Patient This patient is new to me today: No - Critical Care Critical Care patient: No
--- NOTE | 2017-12-20 15:56 | PN ---
Progress Note, Physician History of Present Illness: stable still confused wbc trending down no complaints - Current Medication List Current Medications: Active Medications Albuterol Sulfate (Ventolin 0.083% Nebulizer Soln -) 1 amp NEB Q4H PRN PRN Reason: SHORT OF BREATH/WHEEZING Last Admin: 12/14/17 10:35 Dose: 1 amp Chlorhexidine Gluconate (Hibiclens For Decolonization -) 1 applic TP HS [facility] Last Admin: 12/19/17 21:04 Dose: 1 applic Cholestyramine Resin (Questran Light Packet -) 4 gm PO DAILY [facility] Last Admin: 12/20/17 10:33 Dose: 4 gm Heparin Sodium (Porcine) (Heparin -) 5,000 unit SQ BID [facility] Last Admin: 12/20/17 12:31 Dose: 5,000 unit Levetiracetam (Keppra Oral Solution -) 500 mg GT BID [facility] Last Admin: 12/20/17 10:33 Dose: 500 mg Potassium Phos/Sodium Phos (Phos-Nak Packet -) 1 packet PO BID [facility] Last Admin: 12/20/17 10:33 Dose: 1 packet Ranitidine HCl (Zantac Oral Solution -) 150 mg PO DAILY [facility] Last Admin: 12/20/17 10:34 Dose: 150 mg Vancomycin HCl (Vancomycin Oral Solution) 125 mg PO Q6HPO [facility] Last Admin: 12/20/17 12:32 Dose: 125 mg - Objective Vital Signs: Vital Signs Temperature 99.3 F 12/20/17 13:58 Pulse Rate 117 H 12/20/17 13:58 Respiratory Rate 23 12/20/17 13:58 Blood Pressure 88/63 12/20/17 13:58 O2 Sat by Pulse Oximetry (%) 98 12/20/17 14:02 Constitutional: Yes: No Distress, Calm Cardiovascular: Yes: Regular Rate and Rhythm Respiratory: Yes: Regular, CTA Bilaterally Gastrointestinal: Yes: Normal Bowel Sounds, Soft Musculoskeletal: Yes: WNL Extremities: Yes: WNL Neurological: Yes: Alert, Confusion, Other Psychiatric: Yes: Alert Labs: CBC, BMP 12/20/17 05:58 12/20/17 05:58 INR, PTT INR 1.37 (0.82-1.09) H 12/11/17 22:30 Assessment/Plan wbc trending down Problem List - Problem (1) MODS (multiple organ dysfunction syndrome) Code(s): PSR1619 - (2) Severe sepsis Code(s): A41.9 - SEPSIS, UNSPECIFIED ORGANISM; R65.20 - SEVERE SEPSIS WITHOUT SEPTIC SHOCK (3) Clostridium difficile diarrhea Code(s): A04.72 - ENTEROCOLITIS D/T CLOSTRIDIUM DIFFICILE, NOT SPCF RECUR (4) Hypernatremia Code(s): E87.0 - HYPEROSMOLALITY AND HYPERNATREMIA (5) Chronic respiratory failure Code(s): J96.10 - CHRONIC RESPIRATORY FAILURE, UNSP W HYPOXIA OR HYPERCAPNIA (6) Seizures Code(s): R56.9 - UNSPECIFIED CONVULSIONS (7) Bladder mass Code(s): N32.89 - OTHER SPECIFIED DISORDERS OF BLADDER (8) MDD (major depressive disorder) Code(s): F32.9 - MAJOR DEPRESSIVE DISORDER, SINGLE EPISODE, UNSPECIFIED (9) Hx TIA/stroke w/o resid Code(s): Z86.73 - PRSNL HX OF TIA (TIA), AND CEREB INFRC W/O RESID DEFICITS (10) HTN (hypertension) Code(s): I10 - ESSENTIAL (PRIMARY) HYPERTENSION (11) HLD (hyperlipidemia) Code(s): E78.5 - HYPERLIPIDEMIA, UNSPECIFIED (12) Functional quadriplegia Code(s): R53.2 - FUNCTIONAL QUADRIPLEGIA (13) Prolonged QT interval Code(s): R94.31 - ABNORMAL ELECTROCARDIOGRAM [ECG] [EKG] (14) Anemia Code(s): D64.9 - ANEMIA, UNSPECIFIED Qualifiers: Anemia type: unspecified type Qualified Code(s): D64.9 - Anemia, unspecified plan continue vanco close monitoring monitor wbc still on the higher side patient otherwise stable dirrhoea improving cc time 40 min
[2017-12-20] MEDS: ALBUTEROL SO4 0.083% IH SOL 2.5 MG/3 ML VIAL.NEB. NEB PRN (20:37)
[2017-12-20] MEDS: CHLORHEXIDINE GLUCONATE 4% CLEANSER FOR DECOLONIZATION TP SCH (21:12)
[2017-12-21 06:39] LABS: HEMATOCRIT 23.9 % (32.4-45.2); HEMOGLOBIN 7.7 GM/dL (10.7-15.3); MCH 28.2 pg (25.7-33.7); MCHC 32.1 g/dl (32.0-36.0); MEAN CELL VOLUME 87.8 fl (80-96); MEAN PLT VOLUME 7.6 fl (7.5-11.1); PLATELET COUNT 419 K/MM3 (134-434); RBC 2.73 M/mm3 (3.60-5.2); RDW 19.1 % (11.6-15.6); WHITE BLOOD COUNT 18.3 K/mm3 (4.0-10.0)
[2017-12-21] MEDS: VANCOMYCIN 250 MG/5 ML ORAL SOLUTION PO SCH ×3 (07:00→18:08)
[2017-12-21 07:20] LABS: ALBUMIN 1.4 g/dl (3.4-5.0); ALK PHOS 62 U/L (45-117); ANION GAP 8 (8-16); BILIRUBIN,TOTAL 0.2 mg/dL (0.2-1.0); BLOOD UREA NITROGEN 9 mg/dL (7-18); CALCIUM 7.1 mg/dL (8.5-10.1); CHLORIDE 115 mmol/L (98-107); CO2 25 mmol/L (21-32); CREATININE 0.5 mg/dL (0.55-1.02); GLUCOSE,RANDOM 120 mg/dL (74-106); MAGNESIUM 1.7 mg/dL (1.8-2.4); PHOSPHOROUS 3.4 mg/dL (2.5-4.9); POTASSIUM 3.8 mmol/L (3.5-5.1); SGOT/AST 13 U/L (15-37); SGPT/ALT 11 U/L (12-78); SODIUM 148 mmol/L (136-145); TOT PROT 4.7 g/dl (6.4-8.2)
[2017-12-21] MEDS ORDERED: MAGNESIUM 1GM/D5W 100ML - 100 ML IVPB IVPB ONE (08:59)
[2017-12-21] MEDS ORDERED: SODIUM CHLORIDE 250 ML IV STA (09:03)
[2017-12-21] MEDS ORDERED: SODIUM CHLORIDE 1,000 ML IV SCH (09:15)
[2017-12-21] MEDS ORDERED: PT OWN MED DRAWER 7, Y5N ONE (10:08)
[2017-12-21] MEDS: CHOLESTYRAMINE/ASPARTAME 4 GM PACKET PO SCH (10:12)
[2017-12-21] MEDS: NAPH,MB-DB/K PH,MBDB POWDER PACKET PO SCH ×2 (10:12→21:25)
[2017-12-21] MEDS: RANITIDINE HCL 150 MG/10 ML UNIT-DOSE PO SCH (10:12)
[2017-12-21] MEDS: HEPARIN NA (PORCINE) 5,000 UNITS/ML 1ML VIAL SQ SCH ×2 (10:14→21:24)
[2017-12-21] MEDS: levETIRAcetam 500 MG/5 ML ORAL SOLUTION (UNIT-DOSE CUPS) GT SCH ×2 (10:14→21:25)
--- NOTE | 2017-12-21 10:59 | PN ---
Progress Note, Physician Chief Complaint: Awake, confused- baseline Afebrile no distress has some amount bm was hypotensive this AM spoke with ICU resident - Current Medication List Current Medications: Active Medications Albuterol Sulfate (Ventolin 0.083% Nebulizer Soln -) 1 amp NEB Q4H PRN PRN Reason: SHORT OF BREATH/WHEEZING Last Admin: 12/20/17 20:37 Dose: 1 amp Chlorhexidine Gluconate (Hibiclens For Decolonization -) 1 applic TP HS [facility] Last Admin: 12/20/17 21:12 Dose: 1 applic Cholestyramine Resin (Questran Light Packet -) 4 gm PO DAILY [facility] Last Admin: 12/21/17 10:12 Dose: 4 gm Heparin Sodium (Porcine) (Heparin -) 5,000 unit SQ BID [facility] Last Admin: 12/21/17 10:14 Dose: 5,000 unit Levetiracetam (Keppra Oral Solution -) 500 mg GT BID [facility] Last Admin: 12/21/17 10:14 Dose: 500 mg Potassium Phos/Sodium Phos (Phos-Nak Packet -) 1 packet PO BID [facility] Last Admin: 12/21/17 10:12 Dose: 1 packet Ranitidine HCl (Zantac Oral Solution -) 150 mg PO DAILY [facility] Last Admin: 12/21/17 10:12 Dose: 150 mg Vancomycin HCl (Vancomycin Oral Solution) 125 mg PO Q6HPO [facility] Last Admin: 12/21/17 07:00 Dose: 125 mg - Objective Vital Signs: Vital Signs Temperature 99.3 F 12/21/17 10:00 Pulse Rate 107 H 12/21/17 10:00 Respiratory Rate 28 H 12/21/17 10:00 Blood Pressure 92/59 12/21/17 10:00 O2 Sat by Pulse Oximetry (%) 97 12/21/17 10:00 Constitutional: Yes: No Distress Cardiovascular: Yes: Regular Rate and Rhythm Respiratory: Yes: Diminished Gastrointestinal: Yes: Normal Bowel Sounds, Soft, Other (GT). No: Tenderness Edema: No Labs: CBC, BMP 12/21/17 05:00 12/21/17 05:00 INR, PTT INR 1.37 (0.82-1.09) H 12/11/17 22:30 Problem List - Problems (1) Clostridium difficile diarrhea Code(s): A04.72 - ENTEROCOLITIS D/T CLOSTRIDIUM DIFFICILE, NOT SPCF RECUR (2) Colitis Code(s): K52.9 - NONINFECTIVE GASTROENTERITIS AND COLITIS, UNSPECIFIED (3) Functional quadriplegia Code(s): R53.2 - FUNCTIONAL QUADRIPLEGIA (4) HLD (hyperlipidemia) Code(s): E78.5 - HYPERLIPIDEMIA, UNSPECIFIED (5) HTN (hypertension) Code(s): I10 - ESSENTIAL (PRIMARY) HYPERTENSION (6) Seizures Code(s): R56.9 - UNSPECIFIED CONVULSIONS (7) Severe sepsis Code(s): A41.9 - SEPSIS, UNSPECIFIED ORGANISM; R65.20 - SEVERE SEPSIS WITHOUT SEPTIC SHOCK (8) MODS (multiple organ dysfunction syndrome) Code(s): [id number] - Assessment/Plan PLAN Septic shock- resolved -- off pressor support -- ok to trasnfer to floor if vitals stable -- lactic acid levels decreased -- antibiotics- GT Vanco Fulminant Cdiff colitis -- on Vanco GT -- WBC decreasing -- clinically improving -- afebrile-- cdiff antigen positive s/p Acute renal failure/MODS/Hypernatremia -- renal function improving -- hypernatremia -improving- give extra water flushes-- watch for volume overload -- replace magnesium contact precautions Pt is more alert clinically better
--- NOTE | 2017-12-21 11:35 | PN ---
Teaching Attending Note Name of Resident: Ailyn De Santiago ATTENDING PHYSICIAN STATEMENT I saw and evaluated the patient. I reviewed the resident's note and discussed the case with the resident. I agree with the resident's findings and plan as documented. SUBJECTIVE: Pt seen and examined in the ICU. Still with abdominal pain and diarrhea, tolerating feeds. OBJECTIVE: Last Vital Signs Temp Pulse Resp BP Pulse Ox 99.3 F 107 H 28 H 92/59 97 12/21/17 10:00 12/21/17 10:00 12/21/17 10:00 12/21/17 10:00 12/21/17 10:00 Intake & Output 12/18/17 12/19/17 12/20/17 12/21/17 23:59 23:59 23:59 23:59 Intake Total 1807 1537 3327 1085 Output Total 900 325 400 300 Balance 907 1212 2927 785 Weight 83.943 kg 82.781 kg 82.355 kg 81.647 kg Gen: mildly tachypneic at rest Heart: tachycardic, regular Lung: scattered rhonchi Abd: softly distended, diffusely tender but no rebound Ext: + edema CBC, BMP 12/21/17 05:00 12/21/17 05:00 Active Medications Acetaminophen (Ofirmev Injection -) 1,000 mg IVPB Q6H PRN PRN Reason: PAIN LEVEL 4 - 6 Albuterol Sulfate (Ventolin 0.083% Nebulizer Soln -) 1 amp NEB Q4H PRN PRN Reason: SHORT OF BREATH/WHEEZING Last Admin: 12/20/17 20:37 Dose: 1 amp Chlorhexidine Gluconate (Hibiclens For Decolonization -) 1 applic TP HS [facility] Last Admin: 12/20/17 21:12 Dose: 1 applic Cholestyramine Resin (Questran Light Packet -) 4 gm PO DAILY [facility] Last Admin: 12/21/17 10:12 Dose: 4 gm Heparin Sodium (Porcine) (Heparin -) 5,000 unit SQ BID [facility] Last Admin: 12/21/17 10:14 Dose: 5,000 unit Levetiracetam (Keppra Oral Solution -) 500 mg GT BID [facility] Last Admin: 12/21/17 10:14 Dose: 500 mg Potassium Phos/Sodium Phos (Phos-Nak Packet -) 1 packet PO BID [facility] Last Admin: 12/21/17 10:12 Dose: 1 packet Ranitidine HCl (Zantac Oral Solution -) 150 mg PO DAILY [facility] Last Admin: 12/21/17 10:12 Dose: 150 mg Vancomycin HCl (Vancomycin Oral Solution) 125 mg PO Q6HPO [facility] Last Admin: 12/21/17 07:00 Dose: 125 mg ASSESSMENT AND PLAN: C Diff Colitis Septic Shock resolving Acute Kidney Injury improving Lactic Acidosis resolved Volume Overload h/o CVA Dementia - continue antibiotics per ID - monitor off pressors, maintain MAP >65 - monitor urine output, creatinine - monitor lytes - monitor abdominal exam, WBC - aspiration precautions - O2 to keep SpO2 >90% - enteral feeds - DVT/GI prophylaxis critical care time spent in reviewing chart, evaluating patient and formulating plan 35 min
[2017-12-21] MEDS: ACETAMINOPHEN 1000 MG/100 ML VIAL (NON FORMULARY) IVPB PRN (12:10)
--- NOTE | 2017-12-21 15:55 | PN ---
Progress Note, Physician History of Present Illness: continues to improve bp still on lower side c/o of loose bm says she cannot hold it - Current Medication List Current Medications: Active Medications Acetaminophen (Ofirmev Injection -) 1,000 mg IVPB Q6H PRN PRN Reason: PAIN LEVEL 4 - 6 Last Admin: 12/21/17 12:10 Dose: 1,000 mg Albuterol Sulfate (Ventolin 0.083% Nebulizer Soln -) 1 amp NEB Q4H PRN PRN Reason: SHORT OF BREATH/WHEEZING Last Admin: 12/20/17 20:37 Dose: 1 amp Chlorhexidine Gluconate (Hibiclens For Decolonization -) 1 applic TP HS [facility] Last Admin: 12/20/17 21:12 Dose: 1 applic Cholestyramine Resin (Questran Light Packet -) 4 gm PO DAILY [facility] Last Admin: 12/21/17 10:12 Dose: 4 gm Heparin Sodium (Porcine) (Heparin -) 5,000 unit SQ BID [facility] Last Admin: 12/21/17 10:14 Dose: 5,000 unit Levetiracetam (Keppra Oral Solution -) 500 mg GT BID [facility] Last Admin: 12/21/17 10:14 Dose: 500 mg Potassium Phos/Sodium Phos (Phos-Nak Packet -) 1 packet PO BID [facility] Last Admin: 12/21/17 10:12 Dose: 1 packet Ranitidine HCl (Zantac Oral Solution -) 150 mg PO DAILY [facility] Last Admin: 12/21/17 10:12 Dose: 150 mg Vancomycin HCl (Vancomycin Oral Solution) 125 mg PO Q6HPO [facility] Last Admin: 12/21/17 13:31 Dose: 125 mg - Objective Vital Signs: Vital Signs Temperature 99.0 F 12/21/17 14:00 Pulse Rate 103 H 12/21/17 14:00 Respiratory Rate 23 12/21/17 14:00 Blood Pressure 93/68 12/21/17 14:00 O2 Sat by Pulse Oximetry (%) 97 12/21/17 10:00 Constitutional: Yes: No Distress, Calm Cardiovascular: Yes: Regular Rate and Rhythm Respiratory: Yes: Regular, CTA Bilaterally Gastrointestinal: Yes: Normal Bowel Sounds, Soft Musculoskeletal: Yes: WNL Extremities: Yes: WNL Neurological: Yes: Alert, Confusion Psychiatric: Yes: Alert, Other Labs: CBC, BMP 12/21/17 05:00 12/21/17 05:00 INR, PTT INR 1.37 (0.82-1.09) H 12/11/17 22:30 - ....Imaging Chest X-ray: Report Reviewed, Image Reviewed Assessment/Plan wbc trending down Problem List - Problem (1) MODS (multiple organ dysfunction syndrome) Code(s): [id number] - (2) Severe sepsis Code(s): A41.9 - SEPSIS, UNSPECIFIED ORGANISM; R65.20 - SEVERE SEPSIS WITHOUT SEPTIC SHOCK (3) Clostridium difficile diarrhea Code(s): A04.72 - ENTEROCOLITIS D/T CLOSTRIDIUM DIFFICILE, NOT SPCF RECUR (4) Hypernatremia Code(s): E87.0 - HYPEROSMOLALITY AND HYPERNATREMIA (5) Chronic respiratory failure Code(s): J96.10 - CHRONIC RESPIRATORY FAILURE, UNSP W HYPOXIA OR HYPERCAPNIA (6) Seizures Code(s): R56.9 - UNSPECIFIED CONVULSIONS (7) Bladder mass Code(s): N32.89 - OTHER SPECIFIED DISORDERS OF BLADDER (8) MDD (major depressive disorder) Code(s): F32.9 - MAJOR DEPRESSIVE DISORDER, SINGLE EPISODE, UNSPECIFIED (9) Hx TIA/stroke w/o resid Code(s): Z86.73 - PRSNL HX OF TIA (TIA), AND CEREB INFRC W/O RESID DEFICITS (10) HTN (hypertension) Code(s): I10 - ESSENTIAL (PRIMARY) HYPERTENSION (11) HLD (hyperlipidemia) Code(s): E78.5 - HYPERLIPIDEMIA, UNSPECIFIED (12) Functional quadriplegia Code(s): R53.2 - FUNCTIONAL QUADRIPLEGIA (13) Prolonged QT interval Code(s): R94.31 - ABNORMAL ELECTROCARDIOGRAM [ECG] [EKG] (14) Anemia Code(s): D64.9 - ANEMIA, UNSPECIFIED Qualifiers: Anemia type: unspecified type Qualified Code(s): D64.9 - Anemia, unspecified plan continue vanco close monitoring monitor wbc still on the higher side patient otherwise stable dirrhoea improving cc time 40 min wbc trending down monitor for dirrhoea
--- NOTE | 2017-12-21 16:56 | PN ---
Physical Exam: SUBJECTIVE: Patient seen and examined ; c/o abdominal pain and persistent diarrhea. -still hypotensive -afebrile OBJECTIVE: Vital Signs Period Temp Pulse Resp BP Sys/Levine Pulse Ox Last 24 Hr 99.0 F-100.3 F 63-113 15-28 87-119/51-79 96-97 GENERAL: The patient is awake, slightly confused; tremors LUNGS: bilateral rhonchi; mild crackles HEART: Regular rate and rhythm, S1, S2 without murmur, rub or gallop. ABDOMEN: Soft,mildy tender EXTREMITIES: 2+ pulses, warm, well-perfused, no edema. Laboratory Results - last 24 hr 12/21/17 12/21/17 12/21/17 05:00 05:00 10:34 WBC 18.3 H RBC 2.73 L Hgb 7.7 L Hct 23.9 L MCV 87.8 MCH 28.2 MCHC 32.1 RDW 19.1 H Plt Count 419 MPV 7.6 Sodium 148 H Potassium 3.8 Chloride 115 H Carbon Dioxide 25 Anion Gap 8 BUN 9 Creatinine 0.5 L Creat Clearance w eGFR > 60 Random Glucose 120 H Lactic Acid 2.0 Calcium 7.1 L Phosphorus 3.4 Magnesium 1.7 L Total Bilirubin 0.2 D AST 13 L ALT 11 L Alkaline Phosphatase 62 Total Protein 4.7 L Albumin 1.4 L Active Medications Generic Name Dose Route Start Last Admin Trade Name Freq PRN Reason Stop Dose Admin Acetaminophen 1,000 mg 12/21/17 11:16 12/21/17 12:10 Ofirmev Injection - IVPB 1,000 mg Q6H PRN Administration PAIN LEVEL 4 - 6 Albuterol Sulfate 1 amp 12/13/17 12:30 12/20/17 20:37 Ventolin 0.083% Nebulizer Soln - NEB 1 amp Q4H PRN Administration SHORT OF BREATH/WHEEZING Chlorhexidine Gluconate 1 applic 12/12/17 22:00 12/20/17 21:12 Hibiclens For Decolonization - TP 1 applic HS [facility] Administration Cholestyramine Resin 4 gm 12/20/17 10:00 12/21/17 10:12 Questran Light Packet - PO 4 gm DAILY [facility] Administration Heparin Sodium (Porcine) 5,000 unit 12/18/17 22:00 12/21/17 10:14 Heparin - SQ 5,000 unit BID [facility] Administration Levetiracetam 500 mg 12/13/17 22:00 12/21/17 10:14 Keppra Oral Solution - GT 500 mg BID [facility] Administration Potassium Phos/Sodium Phos 1 packet 12/15/17 10:00 12/21/17 10:12 Phos-Nak Packet - PO 1 packet BID [facility] Administration Ranitidine HCl 150 mg 12/16/17 10:00 12/21/17 10:12 Zantac Oral Solution - PO 150 mg DAILY [facility] Administration Vancomycin HCl 125 mg 12/19/17 18:00 12/21/17 13:31 Vancomycin Oral Solution PO 125 mg Q6HPO [facility] Administration ASSESSMENT/PLAN: This is a 67 year old female with a significant past medical history of CVA with residual R sided weakness, dementia, PEG tube, HLD, epilepsy, who presents to the emergency department from [facility] due to hypotension/hypoxia this AM in the setting of diarrhea and + c. diff toxin Ag. #septic shock secondary to c diff colitis; resolving -off pressors -maintain MAP >65 -monitor U/O, cr -continue vancomycin -add banana flakes to feeds #acute kidney injury; sec to sepsis; resolving #h/o CVA #dementia; at baseline #enteral fees; #hx seizure; cont AES DVT ppl; cont heparin sub q Stable to transfer to floor Visit type - Emergency Visit Emergency Visit: Yes ED Registration Date: 12/12/17 Care time: The patient presented to the Emergency Department on the above date and was hospitalized for further evaluation of their emergent condition. - New Patient This patient is new to me today: Yes Date on this admission: 12/21/17 - Critical Care Critical Care patient: Yes Total Critical Care Time (in minutes): 35 Critical Care Statement: The care of this patient involved high complexity decision making to prevent further life threatening deterioration of the patient 's condition and/or to evaluate & treat vital organ system(s) failure or risk of failure.
[2017-12-21] MEDS: CHLORHEXIDINE GLUCONATE 4% CLEANSER FOR DECOLONIZATION TP SCH (21:24)
[2017-12-21] MEDS: BANATROL PLUS POWDER PACKET PO SCH (21:24)
[2017-12-22] MEDS: VANCOMYCIN 250 MG/5 ML ORAL SOLUTION PO SCH ×4 (00:44→17:30)
[2017-12-22] MEDS: BANATROL PLUS POWDER PACKET PO SCH ×3 (05:46→22:36)
[2017-12-22 07:03] LABS: BASO % 0.4 % (0-2.0); EOS % 1.8 % (0-4.5); HEMATOCRIT 24.3 % (32.4-45.2); HEMOGLOBIN 8.1 GM/dL (10.7-15.3); LYMPH % 13.4 % (8-40); MCH 29.7 pg (25.7-33.7); MCHC 33.2 g/dl (32.0-36.0); MEAN CELL VOLUME 89.6 fl (80-96); MEAN PLT VOLUME 7.8 fl (7.5-11.1); MONO % 3.1 % (3.8-10.2); NEUT % 81.3 % (42.8-82.8); PLATELET COUNT 405 K/MM3 (134-434); RBC 2.72 M/mm3 (3.60-5.2); RDW 18.8 % (11.6-15.6); WHITE BLOOD COUNT 17.5 K/mm3 (4.0-10.0)
[2017-12-22 07:25] LABS: CHLORIDE 114 mmol/L (98-107); POTASSIUM 4.2 mmol/L (3.5-5.1); SODIUM 146 mmol/L (136-145)
[2017-12-22 08:01] LABS: ALBUMIN 1.5 g/dl (3.4-5.0); ALK PHOS 67 U/L (45-117); ANION GAP 6 (8-16); BILIRUBIN,TOTAL 0.3 mg/dL (0.2-1.0); BLOOD UREA NITROGEN 6 mg/dL (7-18); CALCIUM 7.5 mg/dL (8.5-10.1); CO2 26 mmol/L (21-32); CREATININE 0.5 mg/dL (0.55-1.02); GLUCOSE,RANDOM 106 mg/dL (74-106); MAGNESIUM 1.8 mg/dL (1.8-2.4); PHOSPHOROUS 3.5 mg/dL (2.5-4.9); SGOT/AST 15 U/L (15-37); SGPT/ALT 13 U/L (12-78)
[2017-12-22] MEDS: RANITIDINE HCL 150 MG/10 ML UNIT-DOSE PO SCH (09:54)
[2017-12-22] MEDS: NAPH,MB-DB/K PH,MBDB POWDER PACKET PO SCH ×2 (09:54→22:38)
[2017-12-22] MEDS: HEPARIN NA (PORCINE) 5,000 UNITS/ML 1ML VIAL SQ SCH ×2 (09:54→22:36)
[2017-12-22] MEDS: levETIRAcetam 500 MG/5 ML ORAL SOLUTION (UNIT-DOSE CUPS) GT SCH ×2 (09:55→22:37)
[2017-12-22] MEDS: ACETAMINOPHEN 1000 MG/100 ML VIAL (NON FORMULARY) IVPB PRN (10:25)
--- NOTE | 2017-12-22 10:29 | PN ---
Progress Note, Physician - Current Medication List Current Medications: Active Medications Acetaminophen (Ofirmev Injection -) 1,000 mg IVPB Q6H PRN PRN Reason: PAIN LEVEL 4 - 6 Last Admin: 12/22/17 10:25 Dose: 1,000 mg Albuterol Sulfate (Ventolin 0.083% Nebulizer Soln -) 1 amp NEB Q4H PRN PRN Reason: SHORT OF BREATH/WHEEZING Last Admin: 12/20/17 20:37 Dose: 1 amp Chlorhexidine Gluconate (Hibiclens For Decolonization -) 1 applic TP HS [facility] Last Admin: 12/21/17 21:24 Dose: 1 applic Cholestyramine Resin (Questran Light Packet -) 4 gm PO DAILY [facility] Last Admin: 12/21/17 10:12 Dose: 4 gm Heparin Sodium (Porcine) (Heparin -) 5,000 unit SQ BID [facility] Last Admin: 12/22/17 09:54 Dose: 5,000 unit Levetiracetam (Keppra Oral Solution -) 500 mg GT BID [facility] Last Admin: 12/22/17 09:55 Dose: 500 mg Pantoprazole Sodium (Protonix Iv) 40 mg IVPUSH DAILY [facility] Potassium Phos/Sodium Phos (Phos-Nak Packet -) 1 packet PO BID [facility] Last Admin: 12/22/17 09:54 Dose: 1 packet Vancomycin HCl (Vancomycin Oral Solution) 125 mg PO Q6HPO [facility] Last Admin: 12/22/17 05:46 Dose: 125 mg - Objective Vital Signs: Vital Signs Temperature 98.9 F 12/22/17 07:25 Pulse Rate 108 H 12/22/17 10:00 Respiratory Rate 26 H 12/22/17 10:00 Blood Pressure 96/67 12/22/17 10:00 O2 Sat by Pulse Oximetry (%) 98 12/22/17 07:25 Labs: CBC, BMP 12/22/17 05:35 12/22/17 05:35 INR, PTT INR 1.37 (0.82-1.09) H 12/11/17 22:30 Problem List - Problems (1) Clostridium difficile diarrhea Code(s): A04.72 - ENTEROCOLITIS D/T CLOSTRIDIUM DIFFICILE, NOT SPCF RECUR (2) Colitis Code(s): K52.9 - NONINFECTIVE GASTROENTERITIS AND COLITIS, UNSPECIFIED (3) Functional quadriplegia Code(s): R53.2 - FUNCTIONAL QUADRIPLEGIA (4) HLD (hyperlipidemia) Code(s): E78.5 - HYPERLIPIDEMIA, UNSPECIFIED (5) HTN (hypertension) Code(s): I10 - ESSENTIAL (PRIMARY) HYPERTENSION (6) Seizures Code(s): R56.9 - UNSPECIFIED CONVULSIONS (7) Severe sepsis Code(s): A41.9 - SEPSIS, UNSPECIFIED ORGANISM; R65.20 - SEVERE SEPSIS WITHOUT SEPTIC SHOCK (8) MODS (multiple organ dysfunction syndrome) Code(s): [id number] -
[2017-12-22] MEDS ORDERED: PT OWN MED DRAWER 7, Y5N ONE ×2 (10:32→13:46)
[2017-12-22] MEDS: CHOLESTYRAMINE/ASPARTAME 4 GM PACKET PO SCH (10:40)
[2017-12-22] MEDS: PANTOPRAZOLE SODIUM 40 MG VIAL IVPUSH SCH (11:31)
--- NOTE | 2017-12-22 12:34 | PN ---
Teaching Attending Note Name of Resident: Candy Pina ATTENDING PHYSICIAN STATEMENT I saw and evaluated the patient. I reviewed the resident's note and discussed the case with the resident. I agree with the resident's findings and plan as documented. SUBJECTIVE: Patient seen and examined in the ICU. Awake and interactive. Denies CP or SOB. Remains off pressors. CXR: No gross change in layered right effusion Intake & Output 12/19/17 12/20/17 12/21/17 12/22/17 23:59 23:59 23:59 23:59 Intake Total 1537 3327 2783 1450 Output Total 269 115 6011 800 Balance 1212 2927 1683 650 Weight 182 lb 8 oz 181 lb 9 oz 180 lb 181 lb 3.2 oz Last Vital Signs Temp Pulse Resp BP Pulse Ox 98.9 F 106 H 22 92/77 98 12/22/17 07:25 12/22/17 12:00 12/22/17 12:00 12/22/17 12:00 12/22/17 07:25 Active Medications Acetaminophen (Ofirmev Injection -) 1,000 mg IVPB Q6H PRN PRN Reason: PAIN LEVEL 4 - 6 Last Admin: 12/22/17 10:25 Dose: 1,000 mg Albuterol Sulfate (Ventolin 0.083% Nebulizer Soln -) 1 amp NEB Q4H PRN PRN Reason: SHORT OF BREATH/WHEEZING Last Admin: 12/20/17 20:37 Dose: 1 amp Chlorhexidine Gluconate (Hibiclens For Decolonization -) 1 applic TP HS [facility] Last Admin: 12/21/17 21:24 Dose: 1 applic Cholestyramine Resin (Questran Light Packet -) 4 gm PO DAILY [facility] Last Admin: 12/22/17 10:40 Dose: 4 gm Heparin Sodium (Porcine) (Heparin -) 5,000 unit SQ BID [facility] Last Admin: 12/22/17 09:54 Dose: 5,000 unit Levetiracetam (Keppra Oral Solution -) 500 mg GT BID [facility] Last Admin: 12/22/17 09:55 Dose: 500 mg Pantoprazole Sodium (Protonix Iv) 40 mg IVPUSH DAILY [facility] Last Admin: 12/22/17 11:31 Dose: 40 mg Potassium Phos/Sodium Phos (Phos-Nak Packet -) 1 packet PO BID [facility] Last Admin: 12/22/17 09:54 Dose: 1 packet Vancomycin HCl (Vancomycin Oral Solution) 125 mg PO Q6HPO [facility] Last Admin: 12/22/17 11:37 Dose: 125 mg Gen: Awake and responsive, NAD Heart: S1S2, tachycardia Lung: Scattered bilateral rhonchi, decreased BS right Abd: softly distended Ext: less edema Laboratory Results - last 24 hr 12/21/17 12/22/17 12/22/17 10:34 05:35 05:35 WBC 17.5 H RBC 2.72 L Hgb 8.1 L Hct 24.3 L MCV 89.6 MCH 29.7 MCHC 33.2 RDW 18.8 H Plt Count 405 MPV 7.8 Neutrophils % 81.3 Lymphocytes % 13.4 D Monocytes % 3.1 L Eosinophils % 1.8 D Basophils % 0.4 Nucleated RBC % 0 Sodium 146 H Potassium 4.2 Chloride 114 H Carbon Dioxide 26 Anion Gap 6 L BUN 6 L Creatinine 0.5 L Creat Clearance w eGFR > 60 Random Glucose 106 Lactic Acid 2.0 Calcium 7.5 L Phosphorus 3.5 Magnesium 1.8 Total Bilirubin 0.3 D AST 15 ALT 13 Alkaline Phosphatase 67 Total Protein 5.0 L Albumin 1.5 L Total Amylase Lipase 12/22/17 05:35 WBC RBC Hgb Hct MCV MCH MCHC RDW Plt Count MPV Neutrophils % Lymphocytes % Monocytes % Eosinophils % Basophils % Nucleated RBC % Sodium Potassium Chloride Carbon Dioxide Anion Gap BUN Creatinine Creat Clearance w eGFR Random Glucose Lactic Acid Calcium Phosphorus Magnesium Total Bilirubin AST ALT Alkaline Phosphatase Total Protein Albumin Total Amylase Cancelled Lipase Cancelled A/P C Diff Colitis Septic Shock resolving Acute Kidney Injury improving Lactic Acidosis resolved Volume Overload h/o CVA Dementia - ABX per ID - Can judiciously diurese as an outpatient once overall condition has improved - aspiration precautions - O2 to keep SpO2 >90% - enteral feeds as tolerated - DVT/GI prophylaxis - Follow CXR in 1 week or earlier based on symptoms - D/C planning back to SNF Dr Early
--- NOTE | 2017-12-22 12:53 | PN ---
Physical Exam: SUBJECTIVE: Patient awake, A&O x2. C/o abdominal pain. Nursing staff notes emesis with GT tube feedings. OBJECTIVE: GENERAL: The patient is awake, intermittently aA&O x2, verbal NECK: Trachea midline, supple. LUNGS: B/L scattered rhonchi, RLL < LLL HEART: Regular rate and rhythm, S1, S2 without murmur, rub or gallop. ABDOMEN: Distended, normoactive bowel sounds, no masses. GT tube in place, not stablized EXTREMITIES: 2+ pulses, warm, well-perfused, no edema. NEUROLOGICAL: A&O x2 Vital Signs Period Temp Pulse Resp BP Sys/Levine Pulse Ox Last 24 Hr 98 F-99.0 F 103-112 20-31 91-127/54-79 98-98 Laboratory Results - last 24 hr 12/22/17 12/22/17 12/22/17 05:35 05:35 05:35 WBC 17.5 H RBC 2.72 L Hgb 8.1 L Hct 24.3 L MCV 89.6 MCH 29.7 MCHC 33.2 RDW 18.8 H Plt Count 405 MPV 7.8 Neutrophils % 81.3 Lymphocytes % 13.4 D Monocytes % 3.1 L Eosinophils % 1.8 D Basophils % 0.4 Nucleated RBC % 0 Sodium 146 H Potassium 4.2 Chloride 114 H Carbon Dioxide 26 Anion Gap 6 L BUN 6 L Creatinine 0.5 L Creat Clearance w eGFR > 60 Random Glucose 106 Calcium 7.5 L Phosphorus 3.5 Magnesium 1.8 Total Bilirubin 0.3 D AST 15 ALT 13 Alkaline Phosphatase 67 Total Protein 5.0 L Albumin 1.5 L Total Amylase Cancelled Lipase Cancelled Active Medications Generic Name Dose Route Start Last Admin Trade Name Freq PRN Reason Stop Dose Admin Acetaminophen 1,000 mg 12/21/17 11:16 12/22/17 10:25 Ofirmev Injection - IVPB 1,000 mg Q6H PRN Administration PAIN LEVEL 4 - 6 Albuterol Sulfate 1 amp 12/13/17 12:30 12/20/17 20:37 Ventolin 0.083% Nebulizer Soln - NEB 1 amp Q4H PRN Administration SHORT OF BREATH/WHEEZING Chlorhexidine Gluconate 1 applic 12/12/17 22:00 12/21/17 21:24 Hibiclens For Decolonization - TP 1 applic HS [facility] Administration Cholestyramine Resin 4 gm 12/20/17 10:00 12/22/17 10:40 Questran Light Packet - PO 4 gm DAILY [facility] Administration Heparin Sodium (Porcine) 5,000 unit 12/18/17 22:00 12/22/17 09:54 Heparin - SQ 5,000 unit BID [facility] Administration Levetiracetam 500 mg 12/13/17 22:00 12/22/17 09:55 Keppra Oral Solution - GT 500 mg BID [facility] Administration Pantoprazole Sodium 40 mg 12/22/17 10:30 12/22/17 11:31 Protonix Iv IVPUSH 40 mg DAILY [facility] Administration Potassium Phos/Sodium Phos 1 packet 12/15/17 10:00 12/22/17 09:54 Phos-Nak Packet - PO 1 packet BID [facility] Administration Vancomycin HCl 125 mg 12/19/17 18:00 12/22/17 11:37 Vancomycin Oral Solution PO 125 mg Q6HPO [facility] Administration ASSESSMENT/PLAN: Patient is a 67 year old female with a PMH of CVA (residual R sided weakness), dementia, PEG tube, HLD, epilepsy who presented to ED on 12/11 from assisted living facility for hypotension and hypoxia. Patient recently tested positive for C. Diff (12/09) on Flagyll and confirmed by repeat testing at our facility ( 12/14). 1. SEPSIS 2/2 to MODS vs. C. Difficile Colitis - RESOLVED - Febrile (102.3) and hypotensive 71/44 @ presentation on 12/11 - Leukocytosis improving 17 today 23 today <-- 22.4 (12/19) <-- 33.9 (12/15), improving <-- 50 <-- 40 <-- 35 - Currently afebrile - Soft BP overnight - continue to monitor - Lactic Acidosis resolved - Will continue close BP monitoring with patient off pressors - Continue Vancomycin (PO via GT) 2. GI - Fulminant C. Diff Colitis with improving infection WBC 17 <--23 (12/20) <-- 33 <-- 50 - Patient initially not tolerating tube feeds, Abdominal XR shows - CT Abdomen/Pelvis shows diffuse colonic thickening, partial illeus, complex cystic mass in urethra - Continue Flagyll; close monitoring for toxic megacolon 3. CARDIAC - Hypotensive w/ 24 hour BP range 90's-100's/50's-60's continue to monitor - Patient off pressors as of 12/18 - Continue close BP monitoring 4. PULMONARY - SpO2 96% on RA - Minimal wheezing on ascultation - CXR grossly unchanged - R sided atelectasis - Continued scheduled Duo-Neb 5. RENAL - Resolved NICOLÁS - Initial Cr 2.8 likely pre-renal 2/2 to hypovolemia 2/2 to C Diff colitis diarrhea - Renal/Bladder U/S unremarkable - 250 mL q6H as per nephro - Continue to monitor 6. - UA shows 2+ Leukocyte Esterase, 71 WBC - Continue empiric antibiotics 7. NORMOCYTIC ANEMIA - 2/2 to Colitis vs. Chronic Disease vs CRYSTAL - IMPROVING - Hb 8.1 < --7.9 <-- 9.1 < -- 8.8, no previous Hb in system - FOBT pending 8. NEUROLOGIC - Patient neurologically waxing and waning, intermittently A&O x2 today - Head CT negative for acute ischemia/bleed - Continue to monitor 9. HYPERNATREMIA - IMPROVING - Na 146 today (12/22) <-- 148 <-- 149 - Metabolically correcting - Daily monitoring FEN - Electrolyte monitoring and replacement as indicated above - Jevity PROPHYLAXIS Heparin SQ GI prophylaxis switched to H2 iron 2/2 to hypomagnesia SCDs Disposition: Patient stable - no longer requires ICU care, awaiting isolation bed on inpatient floor > 48 hours. As patient on PO Abx, consider transfer to [facility]. Visit type - Emergency Visit Emergency Visit: No - New Patient This patient is new to me today: No - Critical Care Critical Care patient: No
[2017-12-22 13:01] LABS: LIPASE 257 U/L (73-393)
[2017-12-22 13:06] LABS: AMYLASE 48 U/L (25-115)
--- NOTE | 2017-12-22 13:23 | PN ---
Progress Note, Physician History of Present Illness: continues to improve abd pain feeding tube in place - Current Medication List Current Medications: Active Medications Acetaminophen (Ofirmev Injection -) 1,000 mg IVPB Q6H PRN PRN Reason: PAIN LEVEL 4 - 6 Last Admin: 12/22/17 10:25 Dose: 1,000 mg Albuterol Sulfate (Ventolin 0.083% Nebulizer Soln -) 1 amp NEB Q4H PRN PRN Reason: SHORT OF BREATH/WHEEZING Last Admin: 12/20/17 20:37 Dose: 1 amp Chlorhexidine Gluconate (Hibiclens For Decolonization -) 1 applic TP HS [facility] Last Admin: 12/21/17 21:24 Dose: 1 applic Cholestyramine Resin (Questran Light Packet -) 4 gm PO DAILY [facility] Last Admin: 12/22/17 10:40 Dose: 4 gm Heparin Sodium (Porcine) (Heparin -) 5,000 unit SQ BID [facility] Last Admin: 12/22/17 09:54 Dose: 5,000 unit Levetiracetam (Keppra Oral Solution -) 500 mg GT BID [facility] Last Admin: 12/22/17 09:55 Dose: 500 mg Pantoprazole Sodium (Protonix Iv) 40 mg IVPUSH DAILY [facility] Last Admin: 12/22/17 11:31 Dose: 40 mg Potassium Phos/Sodium Phos (Phos-Nak Packet -) 1 packet PO BID [facility] Last Admin: 12/22/17 09:54 Dose: 1 packet Vancomycin HCl (Vancomycin Oral Solution) 125 mg PO Q6HPO [facility] Last Admin: 12/22/17 11:37 Dose: 125 mg - Objective Vital Signs: Vital Signs Temperature 98.9 F 12/22/17 07:25 Pulse Rate 106 H 12/22/17 12:00 Respiratory Rate 22 12/22/17 12:00 Blood Pressure 92/77 12/22/17 12:00 O2 Sat by Pulse Oximetry (%) 98 12/22/17 07:25 Constitutional: Yes: Calm, Mild Distress Cardiovascular: Yes: Regular Rate and Rhythm Respiratory: Yes: Regular, CTA Bilaterally Gastrointestinal: Yes: Normal Bowel Sounds, Soft Neurological: Yes: Alert Labs: CBC, BMP 12/22/17 05:35 12/22/17 05:35 INR, PTT INR 1.37 (0.82-1.09) H 12/11/17 22:30 Assessment/Plan wbc trending down Problem List - Problem (1) MODS (multiple organ dysfunction syndrome) Code(s): [id number] - (2) Severe sepsis Code(s): A41.9 - SEPSIS, UNSPECIFIED ORGANISM; R65.20 - SEVERE SEPSIS WITHOUT SEPTIC SHOCK (3) Clostridium difficile diarrhea Code(s): A04.72 - ENTEROCOLITIS D/T CLOSTRIDIUM DIFFICILE, NOT SPCF RECUR (4) Hypernatremia Code(s): E87.0 - HYPEROSMOLALITY AND HYPERNATREMIA (5) Chronic respiratory failure Code(s): J96.10 - CHRONIC RESPIRATORY FAILURE, UNSP W HYPOXIA OR HYPERCAPNIA (6) Seizures Code(s): R56.9 - UNSPECIFIED CONVULSIONS (7) Bladder mass Code(s): N32.89 - OTHER SPECIFIED DISORDERS OF BLADDER (8) MDD (major depressive disorder) Code(s): F32.9 - MAJOR DEPRESSIVE DISORDER, SINGLE EPISODE, UNSPECIFIED (9) Hx TIA/stroke w/o resid Code(s): Z86.73 - PRSNL HX OF TIA (TIA), AND CEREB INFRC W/O RESID DEFICITS (10) HTN (hypertension) Code(s): I10 - ESSENTIAL (PRIMARY) HYPERTENSION (11) HLD (hyperlipidemia) Code(s): E78.5 - HYPERLIPIDEMIA, UNSPECIFIED (12) Functional quadriplegia Code(s): R53.2 - FUNCTIONAL QUADRIPLEGIA (13) Prolonged QT interval Code(s): R94.31 - ABNORMAL ELECTROCARDIOGRAM [ECG] [EKG] (14) Anemia Code(s): D64.9 - ANEMIA, UNSPECIFIED Qualifiers: Anemia type: unspecified type Qualified Code(s): D64.9 - Anemia, unspecified plan continue vanco close monitoring monitor wbc still on the higher side patient otherwise stable dirrhoea improving continue oral vanco for at least one more week
[2017-12-22] MEDS: CHLORHEXIDINE GLUCONATE 4% CLEANSER FOR DECOLONIZATION TP SCH (22:37)
[2017-12-22] MEDS ORDERED: ALBUTEROL SO4 0.083% IH SOL 2.5 MG/3 ML VIAL.NEB. NEB PRN (23:12)
[2017-12-23] MEDS: VANCOMYCIN 250 MG/5 ML ORAL SOLUTION GT SCH ×4 (01:29→17:45)
[2017-12-23 06:14] LABS: HEMATOCRIT 23.2 % (32.4-45.2); HEMOGLOBIN 7.6 GM/dL (10.7-15.3); MCH 29.1 pg (25.7-33.7); MCHC 32.7 g/dl (32.0-36.0); MEAN CELL VOLUME 89.1 fl (80-96); MEAN PLT VOLUME 7.9 fl (7.5-11.1); PLATELET COUNT 364 K/MM3 (134-434); RDW 18.7 % (11.6-15.6); WHITE BLOOD COUNT 14.8 K/mm3 (4.0-10.0)
[2017-12-23] MEDS: BANATROL PLUS POWDER PACKET PO SCH ×3 (06:19→22:43)
[2017-12-23 06:36] LABS: ALBUMIN 1.5 g/dl (3.4-5.0); ANION GAP 6 (8-16); BILIRUBIN,TOTAL 0.3 mg/dL (0.2-1.0); BLOOD UREA NITROGEN 5 mg/dL (7-18); CALCIUM 7.4 mg/dL (8.5-10.1); CHLORIDE 112 mmol/L (98-107); CO2 27 mmol/L (21-32); CREATININE 0.5 mg/dL (0.55-1.02); GLUCOSE,RANDOM 109 mg/dL (74-106); POTASSIUM 4.1 mmol/L (3.5-5.1); SGOT/AST 13 U/L (15-37); SGPT/ALT 11 U/L (12-78); SODIUM 145 mmol/L (136-145); TOT PROT 5.2 g/dl (6.4-8.2)
[2017-12-23 06:37] LABS: ALK PHOS 67 U/L (45-117)
[2017-12-23] MEDS ORDERED: PT OWN MED DRAWER 7, Y5N ONE ×2 (09:09→14:14)
[2017-12-23] MEDS: PANTOPRAZOLE SODIUM 40 MG VIAL IVPUSH SCH (09:34)
[2017-12-23] MEDS: levETIRAcetam 500 MG/5 ML ORAL SOLUTION (UNIT-DOSE CUPS) GT SCH ×2 (09:34→22:42)
[2017-12-23] MEDS: HEPARIN NA (PORCINE) 5,000 UNITS/ML 1ML VIAL SQ SCH ×2 (09:34→22:42)
[2017-12-23] MEDS: NAPH,MB-DB/K PH,MBDB POWDER PACKET GT SCH ×2 (09:35→22:43)
[2017-12-23] MEDS: CHOLESTYRAMINE/ASPARTAME 4 GM PACKET GT SCH (09:35)
--- NOTE | 2017-12-23 11:37 | PN ---
Progress Note (short form) - Note Progress Note: Awake and interactive. Denies CP or SOB. No acute events overnight. Intake & Output 12/20/17 12/21/17 12/22/17 12/23/17 23:59 23:59 23:59 23:59 Intake Total 3327 2783 3672 770 Output Total 400 1100 2400 500 Balance 2927 1683 1272 270 Weight 181 lb 9 oz 180 lb 181 lb 3.2 oz 180 lb 1.6 oz Last Vital Signs Temp Pulse Resp BP Pulse Ox 99.3 F 103 H 22 103/67 98 12/23/17 10:00 12/23/17 10:00 12/23/17 10:00 12/23/17 10:00 12/23/17 10:00 Active Medications Acetaminophen (Ofirmev Injection -) 1,000 mg IVPB Q6H PRN PRN Reason: PAIN LEVEL 4 - 6 Last Admin: 12/22/17 10:25 Dose: 1,000 mg Albuterol Sulfate (Ventolin 0.083% Nebulizer Soln -) 1 amp NEB Q4H PRN PRN Reason: SHORT OF BREATH/WHEEZING Chlorhexidine Gluconate (Hibiclens For Decolonization -) 1 applic TP HS [facility] Cholestyramine Resin (Questran Light Packet -) 4 gm GT DAILY [facility] Last Admin: 12/23/17 09:35 Dose: 4 gm Heparin Sodium (Porcine) (Heparin -) 5,000 unit SQ BID [facility] Last Admin: 12/23/17 09:34 Dose: 5,000 unit Levetiracetam (Keppra Oral Solution -) 500 mg GT BID [facility] Last Admin: 12/23/17 09:34 Dose: 500 mg Pantoprazole Sodium (Protonix Iv) 40 mg IVPUSH DAILY [facility] Last Admin: 12/23/17 09:34 Dose: 40 mg Potassium Phos/Sodium Phos (Phos-Nak Packet -) 1 packet GT BID [facility] Last Admin: 12/23/17 09:35 Dose: 1 packet Vancomycin HCl (Vancomycin Oral Solution) 125 mg GT Q6HPO [facility] Last Admin: 12/23/17 06:19 Dose: 125 mg Gen: Awake and responsive, NAD Heart: S1S2, tachycardia Lung: Scattered bilateral rhonchi, decreased BS right Abd: softly distended Ext: less edema Laboratory Results - last 24 hr 12/22/17 12/23/17 12/23/17 05:35 05:55 05:55 WBC 14.8 H RBC 2.60 L Hgb 7.6 L Hct 23.2 L MCV 89.1 MCH 29.1 MCHC 32.7 RDW 18.7 H Plt Count 364 MPV 7.9 Sodium 145 Potassium 4.1 Chloride 112 H Carbon Dioxide 27 Anion Gap 6 L BUN 5 L Creatinine 0.5 L Creat Clearance w eGFR > 60 Random Glucose 109 H Calcium 7.4 L Total Bilirubin 0.3 AST 13 L ALT 11 L Alkaline Phosphatase 67 Total Protein 5.2 L Albumin 1.5 L Total Amylase 48 Lipase 257 A/P C Diff Colitis Septic Shock resolving Acute Kidney Injury improving Lactic Acidosis resolved Volume Overload h/o CVA Dementia - ABX per ID - Can judiciously diurese as an outpatient once overall condition has improved - aspiration precautions - O2 to keep SpO2 >90% - enteral feeds as tolerated - DVT/GI prophylaxis - Follow CXR in 1 week or earlier based on symptoms - D/C planning back to SNF Dr Early
--- NOTE | 2017-12-23 12:01 | PN ---
Progress Note (short form) - Note Progress Note: feels ok chart reviewed low grade temp. wbc trending down Vital Signs Temp 99.3 F 12/23/17 10:00 Pulse 103 H 12/23/17 10:00 Resp 22 12/23/17 10:00 BP 103/67 12/23/17 10:00 Pulse Ox 98 12/23/17 10:00 Intake & Output 12/22/17 12/23/17 12/23/17 23:59 11:59 23:59 Intake Total 1722 770 Output Total 1600 500 Balance 122 270 Weight 180 lb 1.6 oz Intake: Oral 252 Tube Feeding 600 520 Tube Irrigant 870 250 Output: Urine 1600 500 Handy 1600 500 Other: Voiding Method Indwelling Catheter Indwelling Catheter Bowel Movement Yes Yes # Bowel Movements 2 3 Active Medications Acetaminophen (Ofirmev Injection -) 1,000 mg IVPB Q6H PRN PRN Reason: PAIN LEVEL 4 - 6 Last Admin: 12/22/17 10:25 Dose: 1,000 mg Albuterol Sulfate (Ventolin 0.083% Nebulizer Soln -) 1 amp NEB Q4H PRN PRN Reason: SHORT OF BREATH/WHEEZING Chlorhexidine Gluconate (Hibiclens For Decolonization -) 1 applic TP [facility] Cholestyramine Resin (Questran Light Packet -) 4 gm GT DAILY [facility] Last Admin: 12/23/17 09:35 Dose: 4 gm Heparin Sodium (Porcine) (Heparin -) 5,000 unit SQ BID [facility] Last Admin: 12/23/17 09:34 Dose: 5,000 unit Levetiracetam (Keppra Oral Solution -) 500 mg GT BID [facility] Last Admin: 12/23/17 09:34 Dose: 500 mg Pantoprazole Sodium (Protonix Iv) 40 mg IVPUSH DAILY [facility] Last Admin: 12/23/17 09:34 Dose: 40 mg Potassium Phos/Sodium Phos (Phos-Nak Packet -) 1 packet GT BID [facility] Last Admin: 12/23/17 09:35 Dose: 1 packet Vancomycin HCl (Vancomycin Oral Solution) 125 mg GT Q6HPO [facility]PL[facility] BY [facility] Last Admin: 12/23/17 11:40 Dose: 125 mg CBC, BMP 12/23/17 05:55 12/23/17 05:55 Abnormal Lab Results 05/25/18 05/25/18 05:55 05:55 WBC 14.8 H RBC 2.60 L Hgb 7.6 L Hct 23.2 L RDW 18.7 H Chloride 112 H Anion Gap 6 L BUN 5 L Creatinine 0.5 L Random Glucose 109 H Calcium 7.4 L AST 13 L ALT 11 L Total Protein 5.2 L Albumin 1.5 L o/e awake lungs- diminished cvs- s1 s2 abd- soft ext- no edema A/P C Diff Colitis Septic Shock resolving Acute Kidney Injury improving Lactic Acidosis resolved Volume Overload h/o CVA Dementia overall better monitor today if stable- d/c tomorrow Problem List - Problems (1) Clostridium difficile diarrhea Code(s): A04.72 - ENTEROCOLITIS D/T CLOSTRIDIUM DIFFICILE, NOT SPCF RECUR (2) Functional quadriplegia Code(s): R53.2 - FUNCTIONAL QUADRIPLEGIA (3) Hx TIA/stroke w/o resid Code(s): Z86.73 - PRSNL HX OF TIA (TIA), AND CEREB INFRC W/O RESID DEFICITS (4) Severe sepsis Code(s): A41.9 - SEPSIS, UNSPECIFIED ORGANISM; R65.20 - SEVERE SEPSIS WITHOUT SEPTIC SHOCK
--- NOTE | 2017-12-23 15:00 | PN ---
Progress Note, Physician History of Present Illness: stable no new issues - Current Medication List Current Medications: Active Medications Acetaminophen (Ofirmev Injection -) 1,000 mg IVPB Q6H PRN PRN Reason: PAIN LEVEL 4 - 6 Last Admin: 12/22/17 10:25 Dose: 1,000 mg Albuterol Sulfate (Ventolin 0.083% Nebulizer Soln -) 1 amp NEB Q4H PRN PRN Reason: SHORT OF BREATH/WHEEZING Chlorhexidine Gluconate (Hibiclens For Decolonization -) 1 applic TP [facility] Cholestyramine Resin (Questran Light Packet -) 4 gm GT DAILY [facility] Last Admin: 12/23/17 09:35 Dose: 4 gm Heparin Sodium (Porcine) (Heparin -) 5,000 unit SQ BID [facility] Last Admin: 12/23/17 09:34 Dose: 5,000 unit Levetiracetam (Keppra Oral Solution -) 500 mg GT BID [facility] Last Admin: 12/23/17 09:34 Dose: 500 mg Pantoprazole Sodium (Protonix Iv) 40 mg IVPUSH DAILY [facility] Last Admin: 12/23/17 09:34 Dose: 40 mg Potassium Phos/Sodium Phos (Phos-Nak Packet -) 1 packet GT BID [facility] Last Admin: 12/23/17 09:35 Dose: 1 packet Vancomycin HCl (Vancomycin Oral Solution) 125 mg GT Q6HPO [facility] Last Admin: 12/23/17 11:40 Dose: 125 mg - Objective Vital Signs: Vital Signs Temperature 99.3 F 12/23/17 10:00 Pulse Rate 103 H 12/23/17 10:00 Respiratory Rate 22 12/23/17 10:00 Blood Pressure 103/67 12/23/17 10:00 O2 Sat by Pulse Oximetry (%) 98 12/23/17 10:00 Constitutional: Yes: No Distress, Calm Cardiovascular: Yes: Regular Rate and Rhythm Respiratory: Yes: Regular, CTA Bilaterally Gastrointestinal: Yes: Normal Bowel Sounds, Soft Musculoskeletal: Yes: WNL Extremities: Yes: WNL Neurological: Yes: Alert, Other Labs: CBC, BMP 12/23/17 05:55 12/23/17 05:55 INR, PTT INR 1.37 (0.82-1.09) H 12/11/17 22:30 Assessment/Plan wbc trending down Problem List - Problem (1) MODS (multiple organ dysfunction syndrome) Code(s): [id number] - (2) Severe sepsis Code(s): A41.9 - SEPSIS, UNSPECIFIED ORGANISM; R65.20 - SEVERE SEPSIS WITHOUT SEPTIC SHOCK (3) Clostridium difficile diarrhea Code(s): A04.72 - ENTEROCOLITIS D/T CLOSTRIDIUM DIFFICILE, NOT SPCF RECUR (4) Hypernatremia Code(s): E87.0 - HYPEROSMOLALITY AND HYPERNATREMIA (5) Chronic respiratory failure Code(s): J96.10 - CHRONIC RESPIRATORY FAILURE, UNSP W HYPOXIA OR HYPERCAPNIA (6) Seizures Code(s): R56.9 - UNSPECIFIED CONVULSIONS (7) Bladder mass Code(s): N32.89 - OTHER SPECIFIED DISORDERS OF BLADDER (8) MDD (major depressive disorder) Code(s): F32.9 - MAJOR DEPRESSIVE DISORDER, SINGLE EPISODE, UNSPECIFIED (9) Hx TIA/stroke w/o resid Code(s): Z86.73 - PRSNL HX OF TIA (TIA), AND CEREB INFRC W/O RESID DEFICITS (10) HTN (hypertension) Code(s): I10 - ESSENTIAL (PRIMARY) HYPERTENSION (11) HLD (hyperlipidemia) Code(s): E78.5 - HYPERLIPIDEMIA, UNSPECIFIED (12) Functional quadriplegia Code(s): R53.2 - FUNCTIONAL QUADRIPLEGIA (13) Prolonged QT interval Code(s): R94.31 - ABNORMAL ELECTROCARDIOGRAM [ECG] [EKG] (14) Anemia Code(s): D64.9 - ANEMIA, UNSPECIFIED Qualifiers: Anemia type: unspecified type Qualified Code(s): D64.9 - Anemia, unspecified plan continue vanco follow wbc rest as per the team
--- NOTE | 2017-12-23 16:10 | PN ---
Progress Note (short form) - Note Progress Note: Renal function and electrolytes stable at this time continue free water via G-tube will sign off case at this time please call if any change in status Thank you Constantino Clemnos DO
[2017-12-23] MEDS ORDERED: CHLORHEXIDINE GLUCONATE 4% CLEANSER FOR DECOLONIZATION TP SCH (22:00)
[2017-12-24 05:14] VITALS: PULSE 96
[2017-12-24] MEDS: BANATROL PLUS POWDER PACKET PO SCH ×2 (06:49→15:50)
[2017-12-24] MEDS: VANCOMYCIN 250 MG/5 ML ORAL SOLUTION GT SCH ×3 (06:49→13:46)
[2017-12-24] MEDS ORDERED: PT OWN MED DRAWER 7, Y5N ONE ×3 (08:58→13:45)
[2017-12-24] MEDS: HEPARIN NA (PORCINE) 5,000 UNITS/ML 1ML VIAL SQ SCH (10:04)
[2017-12-24] MEDS: CHOLESTYRAMINE/ASPARTAME 4 GM PACKET GT SCH (10:05)
[2017-12-24] MEDS: levETIRAcetam 500 MG/5 ML ORAL SOLUTION (UNIT-DOSE CUPS) GT SCH (10:05)
[2017-12-24] MEDS: PANTOPRAZOLE SODIUM 40 MG VIAL IVPUSH SCH (10:05)
[2017-12-24] MEDS: NAPH,MB-DB/K PH,MBDB POWDER PACKET GT SCH (10:05)
--- NOTE | 2017-12-24 11:19 | PN ---
Progress Note (short form) - Note Progress Note: PULMONARY Denies shortness of breath or chest pain. Last Vital Signs Temp Pulse Resp BP Pulse Ox 98.4 F 96 H 18 91/68 98 12/24/17 06:00 12/24/17 06:00 12/24/17 06:00 12/24/17 06:00 12/23/17 20:00 Gen: less tachypneic Heart: tachycardic, regular Lung: scattered rhonchi Abd: softly distended Ext: + edema CBC, BMP 12/23/17 05:55 12/23/17 05:55 Active Medications Acetaminophen (Ofirmev Injection -) 1,000 mg IVPB Q6H PRN PRN Reason: PAIN LEVEL 4 - 6 Last Admin: 12/22/17 10:25 Dose: 1,000 mg Albuterol Sulfate (Ventolin 0.083% Nebulizer Soln -) 1 amp NEB Q4H PRN PRN Reason: SHORT OF BREATH/WHEEZING Chlorhexidine Gluconate (Hibiclens For Decolonization -) 1 applic TP HS [facility] Last Admin: 12/23/17 22:41 Dose: 1 applic Cholestyramine Resin (Questran Light Packet -) 4 gm GT DAILY [facility] Last Admin: 12/24/17 10:05 Dose: 4 gm Heparin Sodium (Porcine) (Heparin -) 5,000 unit SQ BID [facility] Last Admin: 12/24/17 10:04 Dose: 5,000 unit Levetiracetam (Keppra Oral Solution -) 500 mg GT BID [facility] Last Admin: 12/24/17 10:05 Dose: 500 mg Pantoprazole Sodium (Protonix Iv) 40 mg IVPUSH DAILY [facility] Last Admin: 12/24/17 10:05 Dose: 40 mg Potassium Phos/Sodium Phos (Phos-Nak Packet -) 1 packet GT BID [facility] Last Admin: 12/24/17 10:05 Dose: 1 packet Vancomycin HCl (Vancomycin Oral Solution) 125 mg GT Q6HPO [facility] Last Admin: 12/24/17 06:49 Dose: 125 mg A/P C Diff Colitis Septic Shock resolving Acute Kidney Injury improving Lactic Acidosis resolved Volume Overload h/o CVA Dementia - continue antibiotics per ID - lasix as needed - monitor urine output, creatinine - aspiration precautions - O2 to keep SpO2 >90% - enteral feeds - DVT/GI prophylaxis
--- NOTE | 2017-12-24 12:24 | DS ---
Physical Examination Vital Signs: Vital Signs Temperature 98.4 F 12/24/17 06:00 Pulse Rate 96 H 12/24/17 06:00 Respiratory Rate 18 12/24/17 06:00 Blood Pressure 91/68 12/24/17 06:00 O2 Sat by Pulse Oximetry (%) 98 12/23/17 20:00 Findings/Remarks: feels well awake no complains afebrile stool better formed Constitutional: Yes: No Distress Eyes: Yes: Conjunctiva Clear Neck: Yes: Supple Respiratory: Yes: Diminished Gastrointestinal: Yes: Soft Edema: No Neurological: Yes: Alert Labs: CBC, BMP 12/23/17 05:55 12/23/17 05:55 Discharge Summary Reason For Visit: URINARY TRACT INFECTION,ANEMIA,PSEUDOMEMBRANOUS EN Current Active Problems Anemia (Acute) Bladder mass (Acute) Chronic respiratory failure (Acute) Clostridium difficile diarrhea (Acute) Colitis (Acute) Colitis presumed infectious (Acute) DVT prophylaxis (Acute) Functional quadriplegia (Acute) HLD (hyperlipidemia) (Acute) HTN (hypertension) (Acute) Hx TIA/stroke w/o resid (Acute) Hypernatremia (Acute) MDD (major depressive disorder) (Acute) MODS (multiple organ dysfunction syndrome) (Acute) Prolonged QT interval (Acute) Seizures (Acute) Severe sepsis (Acute) UTI (urinary tract infection) (Acute) Hospital Course: 67 y/o woman from [facility] with a PMH: HTN, HLD, Seizure Disorder, Epilepsy, UTIs, Sepsis, Anemia, TIa, CVA (no residual deficits), MDD, Dyspahgia, Sacral Ulcer, recently diagnosed C- Diff (12/09/17). Who presents to the ED for Fever, Hypotension Pt found to have Pancoliits treated with abx gi/ i/d followed improved now stable for d/c need one more week of vanco A/P C Diff Colitis Septic Shock resolving Acute Kidney Injury improving Lactic Acidosis resolved Volume Overload h/o CVA Dementia Meds reconcilled Discussed with nursing staff. [facility] 35 min in documenting/ examining and coordating care Condition: Guarded - Instructions Disposition: VNS/HOME HEALTH CARE - Home Medications Comprehensive Discharge Medication List: Ambulatory Orders Aspirin [ASA -] 81 mg PO DAILY 30 Days tab.chew 05/27/17 Metoprolol Tartrate [Lopressor -] 12.5 mg PEG BID tablet 05/27/17 Acetaminophen 325 mg PO Q4H 09/22/17 Amino Acids/Protein Hydrolys [Prosource No Carb Liquid Pkt] 30 ml PO BID Enoxaparin [Lovenox -] 40 mg SQ DAILY 09/22/17 Metoprolol Tartrate 25 mg PO BID 09/22/17 Simvastatin 20 mg PO DAILY 09/22/17 Valproate Na [Depakene] 250 mg GT BID 09/22/17 Vit A/Vitamin D3/E/Aloe V/Zinc [Periguard Ointment] 5 gm TP DAILY 09/22/17 levETIRAcetam [Keppra -] 500 mg PO BID 09/22/17 Atorvastatin Ca [Lipitor] 40 mg GT HS 12/11/17 Lacosamide Liquid [Vimpat Liquid -] 10 mg GT BID 12/11/17 Valproate Sodium Liquid [Depakene Oral Solution -] 1,250 mg GT BID 12/11/17 Zinc Oxide 20% Topical Oint 454 gm NR TID 12/11/17 levETIRAcetam [Keppra Oral Solution -] 500 mg GT BID 12/11/17 Albuterol 0.083% Nebulizer Hanane [Ventolin 0.083% Nebulizer Soln -] 1 amp NEB Q4H PRN amp 12/24/17 Chlorhexidine Gluconate [Hibiclens For Decolonization -] 1 applic TP HS bottle 12/24/17 Vancomycin Oral Solution 125 mg GT Q6HPO 7 Days #0 ml 12/24/17
--- NOTE | 2017-12-24 13:12 | PN ---
Progress Note, Physician History of Present Illness: stable no new issues - Current Medication List Current Medications: Active Medications Acetaminophen (Ofirmev Injection -) 1,000 mg IVPB Q6H PRN PRN Reason: PAIN LEVEL 4 - 6 Last Admin: 12/22/17 10:25 Dose: 1,000 mg Albuterol Sulfate (Ventolin 0.083% Nebulizer Soln -) 1 amp NEB Q4H PRN PRN Reason: SHORT OF BREATH/WHEEZING Chlorhexidine Gluconate (Hibiclens For Decolonization -) 1 applic TP HS [facility] Last Admin: 12/23/17 22:41 Dose: 1 applic Cholestyramine Resin (Questran Light Packet -) 4 gm GT DAILY [facility] Last Admin: 12/24/17 10:05 Dose: 4 gm Heparin Sodium (Porcine) (Heparin -) 5,000 unit SQ BID [facility] Last Admin: 12/24/17 10:04 Dose: 5,000 unit Levetiracetam (Keppra Oral Solution -) 500 mg GT BID [facility] Last Admin: 12/24/17 10:05 Dose: 500 mg Pantoprazole Sodium (Protonix Iv) 40 mg IVPUSH DAILY [facility] Last Admin: 12/24/17 10:05 Dose: 40 mg Potassium Phos/Sodium Phos (Phos-Nak Packet -) 1 packet GT BID [facility] Last Admin: 12/24/17 10:05 Dose: 1 packet Vancomycin HCl (Vancomycin Oral Solution) 125 mg GT Q6HPO [facility] Last Admin: 12/24/17 06:49 Dose: 125 mg - Objective Vital Signs: Vital Signs Temperature 98.4 F 12/24/17 06:00 Pulse Rate 96 H 12/24/17 06:00 Respiratory Rate 18 12/24/17 06:00 Blood Pressure 91/68 12/24/17 06:00 O2 Sat by Pulse Oximetry (%) 98 12/23/17 20:00 Constitutional: Yes: Calm, Other Cardiovascular: Yes: Regular Rate and Rhythm Respiratory: Yes: On Nasal O2, Other Gastrointestinal: Yes: Normal Bowel Sounds, Soft Musculoskeletal: Yes: WNL Extremities: Yes: WNL Neurological: Yes: Alert Psychiatric: Yes: Alert Labs: CBC, BMP 12/23/17 05:55 12/23/17 05:55 INR, PTT INR 1.37 (0.82-1.09) H 12/11/17 22:30 Assessment/Plan wbc trending down Problem List - Problem (1) MODS (multiple organ dysfunction syndrome) Code(s): [id number] - (2) Severe sepsis Code(s): A41.9 - SEPSIS, UNSPECIFIED ORGANISM; R65.20 - SEVERE SEPSIS WITHOUT SEPTIC SHOCK (3) Clostridium difficile diarrhea Code(s): A04.72 - ENTEROCOLITIS D/T CLOSTRIDIUM DIFFICILE, NOT SPCF RECUR (4) Hypernatremia Code(s): E87.0 - HYPEROSMOLALITY AND HYPERNATREMIA (5) Chronic respiratory failure Code(s): J96.10 - CHRONIC RESPIRATORY FAILURE, UNSP W HYPOXIA OR HYPERCAPNIA (6) Seizures Code(s): R56.9 - UNSPECIFIED CONVULSIONS (7) Bladder mass Code(s): N32.89 - OTHER SPECIFIED DISORDERS OF BLADDER (8) MDD (major depressive disorder) Code(s): F32.9 - MAJOR DEPRESSIVE DISORDER, SINGLE EPISODE, UNSPECIFIED (9) Hx TIA/stroke w/o resid Code(s): Z86.73 - PRSNL HX OF TIA (TIA), AND CEREB INFRC W/O RESID DEFICITS (10) HTN (hypertension) Code(s): I10 - ESSENTIAL (PRIMARY) HYPERTENSION (11) HLD (hyperlipidemia) Code(s): E78.5 - HYPERLIPIDEMIA, UNSPECIFIED (12) Functional quadriplegia Code(s): R53.2 - FUNCTIONAL QUADRIPLEGIA (13) Prolonged QT interval Code(s): R94.31 - ABNORMAL ELECTROCARDIOGRAM [ECG] [EKG] (14) Anemia Code(s): D64.9 - ANEMIA, UNSPECIFIED Qualifiers: Anemia type: unspecified type Qualified Code(s): D64.9 - Anemia, unspecified plan continue vanco orally follow wbc rest as per the team
[2017-12-24 14:13] VITALS: BP 137/107; TEMP 98.8
== END 2017-12-24 17:18 | disposition home health service (06) | DRG 720 ==
LOC: JER 21:28 → JERBED 12-12 04:14 → MERGE 12-12 04:14 → JICU 12-12 05:31 → J2W 12-23 01:07
PROVIDERS: ADMIT Internal Medicine; ATTEND Internal Medicine
DX: A41.4 Sepsis due to anaerobes (principal); A04.72 Enterocolitis due to Clostridium difficile, not specified as recurrent; E87.0 Hyperosmolality and hypernatremia; E78.5 Hyperlipidemia, unspecified; R53.2 Functional quadriplegia; N32.89 Other specified disorders of bladder; D64.9 Anemia, unspecified; N39.0 Urinary tract infection, site not specified; R65.21 Severe sepsis with septic shock; E87.2 Acidosis; E87.70 Fluid overload, unspecified; F03.90 Unspecified dementia, unspecified severity, without behavioral disturbance, psychotic disturbance, mood disturbance, and anxiety; R94.31 Abnormal electrocardiogram [ECG] [EKG]; E87.6 Hypokalemia; N17.0 Acute kidney failure with tubular necrosis; D72.829 Elevated white blood cell count, unspecified; I69.351 Hemiplegia and hemiparesis following cerebral infarction affecting right dominant side; J98.11 Atelectasis; G40.909 Epilepsy, unspecified, not intractable, without status epilepticus
CPT/HCPCS: 36415; 36600; 71045-TC-FY; 74176-TC; 74190-TC-FY; 76775-TC; 76856-TC; 80048; 80053; 81003; 81015; 82150; 82272; 82375; 82570; 82803; 82962; 83050; 83605; 83690; 83735; 84100; 84156; 84300; 85025; 85027; 85610; 85730; 86850; 86900; 86901; 87040; 87045; 87046; 87086; 87186; 87324; 87449; 93005; 93010; 93306-TC; 94640; 99284-25; J0131; J1644; J7030; J7620

== ENCOUNTER 2018-02-26 14:55 | Inpatient (IN) | payer OTHER ==
[2018-02-26] MEDS ORDERED: ACETAMINOPHEN INJECTION 100 ML IVPB ONE (16:14)
[2018-02-26] MEDS ORDERED: SODIUM CHLORIDE 1,000 ML IV STA ×2 (16:14→17:28)
[2018-02-26] MEDS ORDERED: ACETAMINOPHEN 1000 MG/100 ML VIAL (NON FORMULARY) IVPB ONE (16:14)
[2018-02-26] MEDS ORDERED: VANCOMYCIN 1,500 MG in DEXTROSE 5%-WATER - 500 ML IVPB ONE (16:24)
[2018-02-26] MEDS ORDERED: PIPERACILLIN/TAZOB 4.5 GM 4.5 GM/100 ML BAG IVPB ONE ×2 (16:25→17:02)
--- NOTE | 2018-02-26 16:32 | PDOC ---
History of Present Illness - General Chief Complaint: Shortness of Breath Stated Complaint: WEAKNESS Time Seen by Provider: 02/26/18 15:15 - History of Present Illness Initial Comments: 02/26/18 16:27 "The patient is a 67-year-old female from [facility], with a past medical history of HTN, hyperlipidemia, seizure disorder, epilepsy, frequent UTIs, anemia, CVA/TIA, MDD, and dysphagia, who was sent to the ED for fever and hypotension. The patient is nonverbal and is unable to provide history. Pt was recently admitted for similar complaint 2 months ago and found to be septic with + c diff. Past History - Past Medical History Allergies/Adverse Reactions: Allergies Allergy/AdvReac Type Severity Reaction Status Date / Time No Known Allergies Allergy Verified 07/13/17 19:02 Home Medications: Ambulatory Orders Aspirin [ASA -] 81 mg PO DAILY 30 Days tab.chew 05/27/17 Metoprolol Tartrate [Lopressor -] 12.5 mg PEG BID tablet 05/27/17 Acetaminophen 325 mg PO Q4H 09/22/17 Amino Acids/Protein Hydrolys [Prosource No Carb Liquid Pkt] 30 ml PO BID Enoxaparin [Lovenox -] 40 mg SQ DAILY 09/22/17 Metoprolol Tartrate 25 mg PO BID 09/22/17 Simvastatin 20 mg PO DAILY 09/22/17 Valproate Na [Depakene] 250 mg GT BID 09/22/17 Vit A/Vitamin D3/E/Aloe V/Zinc [Periguard Ointment] 5 gm TP DAILY 09/22/17 levETIRAcetam [Keppra -] 500 mg PO BID 09/22/17 Atorvastatin Ca [Lipitor] 40 mg GT HS 12/11/17 Lacosamide Liquid [Vimpat Liquid -] 10 mg GT BID 12/11/17 Valproate Sodium Liquid [Depakene Oral Solution -] 1,250 mg GT BID 12/11/17 Zinc Oxide 20% Topical Oint 454 gm NR TID 12/11/17 levETIRAcetam [Keppra Oral Solution -] 500 mg GT BID 12/11/17 Albuterol 0.083% Nebulizer Hanane [Ventolin 0.083% Nebulizer Soln -] 1 amp NEB Q4H PRN amp 12/24/17 Chlorhexidine Gluconate [Hibiclens For Decolonization -] 1 applic TP HS bottle 12/24/17 Vancomycin Oral Solution 125 mg GT Q6HPO 7 Days #0 ml 12/24/17 Anemia: No CVA: Yes COPD: No Dementia: Yes GI Disorders: Yes (constipation) Disorders: Yes (UTI) HTN: Yes Hypercholesterolemia: Yes Psychiatric Problems: Yes (depressive disorders) Seizures: Yes Lung CA: Yes (depression,) - Surgical History GI Surgery: Yes (gtube insertion) - Suicide/Smoking/Psychosocial Hx Smoking History: Never smoked Have you smoked in the past 12 months: No Hx Alcohol Use: No Drug/Substance Use Hx: No Substance Use Type: None Hx Substance Use Treatment: (unknown) Review of Systems - Review of Systems Able to Perform ROS?: No *Physical Exam - Vital Signs Last Vital Signs Temp Pulse Resp BP Pulse Ox 102 F H 120 H 38 H 95/67 92 L 02/26/18 16:13 02/26/18 15:00 02/26/18 15:00 02/26/18 15:00 02/26/18 15:00 - Physical Exam Comments: 02/26/18 16:28 "GENERAL: lethargic, responsive to painful stimuli EYES: PERRLA, clear conjunctiva NOSE: Nose is clear without discharge EARS: EACs and TMs are normal THROAT: Moist mucosa, oropharynx is clear without erythema or exudates, NECK: Supple, no adenopathy, no meningismus CHEST: Lungs are clear without crackles, or wheezes HEART: Regular rhythm, normal S1 and S2, no murmurs ABDOMEN: Soft and nontender with normal bowel sounds, no organomegaly, no mass, no rebound, no guarding SKIN: Unremarkable, no rash, no swelling, no bruising, no signs of injury " ED Treatment Course - LABORATORY CBC & Chemistry Diagram: 02/26/18 16:24 02/26/18 16:24 - RADIOLOGY Radiology Studies Ordered: Category Date Time Status CHEST X-RAY PORTABLE* [RAD] Stat Radiology 02/26/18 15:19 Taken Medical Decision Making - Critical Care Time Total Critical Care Time (minutes): 60 Critical Care Statement: The care of this patient involved high complexity decision making to prevent further life threatening deterioration of the patient 's condition and/or to evaluate & treat vital organ system(s) failure or risk of failure. - Medical Decision Making 02/26/18 16:30 67 F with fever, hypoxia, hypotension. Concerning for sepsis. Source unclear at this time. Pt hypoxic, so possible pulmonary source. Also consider recurrent C diff as pt with diarrhea in ED. - Labs, cultures - CXR, UA - IVF, tylenol, abx - C diff - Admit 02/26/18 17:33 Labs notable for elevated WBC 23, Lactate 3.7 Pt received 1L NS, tylenol, now on 2nd liter NS Repeat vitals BP 114/82, HR 117, O2 100% Pt covered with IV vanc/zosyn, PO vanc for C diff coverage 02/26/18 18:13 Pt admitted to hospitalist *DC/Admit/Observation/Transfer Diagnosis at time of Disposition: Sepsis, Clostridium difficile diarrhea, Lactic acidosis - Discharge Dispostion Decision to Admit order: Yes - Referrals - Patient Instructions - Post Discharge Activity - Attestations Physician Attestion: 02/26/18 18:14 I, Dr. Sami Mckenna MD, attest that this document has been prepared under my direction and personally reviewed by me in its entirety. I further attest, that it accurately reflects all work, treatment, procedures and medical decision -making performed by me.
[2018-02-26 16:34] LABS: BASO % 0.6 % (0-2.0); HEMATOCRIT 34.8 % (32.4-45.2); HEMOGLOBIN 11.2 GM/dL (10.7-15.3); LYMPH % 9.4 % (8-40); MCH 27.1 pg (25.7-33.7); MCHC 32.1 g/dl (32.0-36.0); MEAN CELL VOLUME 84.4 fl (80-96); MONO % 8.7 % (3.8-10.2); NEUT % 81.3 % (42.8-82.8); PLATELET COUNT 119 K/MM3 (134-434); RBC 4.12 M/mm3 (3.60-5.2); RDW 19.5 % (11.6-15.6); WHITE BLOOD COUNT 22.8 K/mm3 (4.0-10.0)
[2018-02-26 16:48] LABS: INR 1.19 (0.82-1.09); PROTHROMBIN TIME (PATIENT) 13.4 SEC (9.7-13.0)
[2018-02-26 16:49] LABS: URINE APPEARANCE CLEAR; URINE BILIRUBIN NEGATIVE (<2.0 mg/dL); URINE COLOR YELLOW; URINE GLUCOSE (UA) NEGATIVE (NEGATIVE); URINE KETONE NEGATIVE (NEGATIVE); URINE LEUK ESTERASE NEGATIVE (NEGATIVE); URINE NITRITE NEGATIVE (NEGATIVE); URINE PROTEIN NEGATIVE (NEGATIVE); URINE UROBILINOGEN NEGATIVE mg/dL (0.2-1.0)
[2018-02-26 16:51] LABS: ACTIVATED PTT 28.4 SECONDS (25.2-36.5)
[2018-02-26 16:52] LABS: VENOUS PC02 56.6 mmHg (38-52); VENOUS PH 7.32 (7.32-7.42); VENOUS PO2 21.6 mmHg (28-48)
[2018-02-26 16:53] LABS: ALBUMIN 2.4 g/dl (3.4-5.0); ALK PHOS 68 U/L (45-117); ANION GAP 6 (8-16); BILIRUBIN,TOTAL 0.3 mg/dL (0.2-1.0); BLOOD UREA NITROGEN 15 mg/dL (7-18); CALCIUM 9.1 mg/dL (8.5-10.1); CHLORIDE 111 mmol/L (98-107); CO2 29 mmol/L (21-32); CREATININE 0.8 mg/dL (0.55-1.02); GLUCOSE,RANDOM 112 mg/dL (74-106); SGPT/ALT 15 U/L (12-78); SODIUM 146 mmol/L (136-145); TOT PROT 7.2 g/dl (6.4-8.2)
[2018-02-26 17:09] LABS: POTASSIUM 4.6 mmol/L (3.5-5.1); SGOT/AST 23 U/L (15-37)
[2018-02-26] MEDS ORDERED: VANCOMYCIN 250 MG/5 ML ORAL SOLUTION PEG ONE (17:18)
[2018-02-26 17:37] LABS: ANISOCYTOSIS 1+; MACROCYTOSIS 1+; PLATELET ESTIMATE SLT DECREASE
[2018-02-26] MEDS ORDERED: VANCOMYCIN 500 MG VIAL (RESTRICTED TO ID ONLY) ONE (18:17)
[2018-02-26] MEDS ORDERED: VANCOMYCIN 1 GRAM (PRE-DOCKED) 1,000 MG/250 ML BAG IVPB ONE (18:17)
--- NOTE | 2018-02-26 18:45 | HP ---
Admitting History and Physical - Smoking History Smoking history: Never smoked Have you smoked in the past 12 months: No - Alcohol/Substance Use Hx Alcohol Use: No Home Medications - Allergies Allergies/Adverse Reactions: Allergies Allergy/AdvReac Type Severity Reaction Status Date / Time No Known Allergies Allergy Verified 07/13/17 19:02 - Home Medications Home Medications: Ambulatory Orders Aspirin [ASA -] 81 mg PO DAILY 30 Days tab.chew 05/27/17 Metoprolol Tartrate [Lopressor -] 12.5 mg PEG BID tablet 05/27/17 Acetaminophen 325 mg PO Q4H 09/22/17 Amino Acids/Protein Hydrolys [Prosource No Carb Liquid Pkt] 30 ml PO BID Enoxaparin [Lovenox -] 40 mg SQ DAILY 09/22/17 Metoprolol Tartrate 25 mg PO BID 09/22/17 Simvastatin 20 mg PO DAILY 09/22/17 Valproate Na [Depakene] 250 mg GT BID 09/22/17 Vit A/Vitamin D3/E/Aloe V/Zinc [Periguard Ointment] 5 gm TP DAILY 09/22/17 levETIRAcetam [Keppra -] 500 mg PO BID 09/22/17 Atorvastatin Ca [Lipitor] 40 mg GT HS 12/11/17 Lacosamide Liquid [Vimpat Liquid -] 10 mg GT BID 12/11/17 Valproate Sodium Liquid [Depakene Oral Solution -] 1,250 mg GT BID 12/11/17 Zinc Oxide 20% Topical Oint 454 gm NR TID 12/11/17 levETIRAcetam [Keppra Oral Solution -] 500 mg GT BID 12/11/17 Albuterol 0.083% Nebulizer Hanane [Ventolin 0.083% Nebulizer Soln -] 1 amp NEB Q4H PRN amp 12/24/17 Chlorhexidine Gluconate [Hibiclens For Decolonization -] 1 applic TP HS bottle 12/24/17 Vancomycin Oral Solution 125 mg GT Q6HPO 7 Days #0 ml 12/24/17 Physical Examination Vital Signs: Vital Signs Temperature 99.2 F 02/26/18 18:37 Pulse Rate 107 H 02/26/18 18:37 Respiratory Rate 30 H 02/26/18 18:37 Blood Pressure 122/83 02/26/18 18:37 O2 Sat by Pulse Oximetry (%) 100 02/26/18 18:37 Labs: CBC, BMP 02/26/18 16:24 02/26/18 16:24 Hospitalist Screening - Colonoscopy Questionnaire Colonoscopy Questionnaire: Colonoscopy Questionnaire
--- NOTE | 2018-02-26 18:49 | HP ---
CHIEF COMPLAINT: PCP: Dr. Lyndon Akbar HISTORY OF PRESENT ILLNESS: Patient is a 67 year old female with a significant past medical history of hypertension, hyperlipidemia, seizure disorder, epilepsy, frequent UTIs, sepsis , anemia, TIAs dysphasia with peg tube and CVA. She is sent from [facility] for fevers and hypotension. Patient is non verbal at baseline and unable to provide history. Per ED signout, patient was found to have fevers and low BP by [facility] staff and sent in for evaluation. On arrival to the ED, patient was found to be in severe sepsis with tachycardia (120s), fever (102f), leukocytosis (22.8), hypoxia requiring NRB mask and lactic acidosis (3.7). Vancomycin, Zosyn was given in ED and ID has been consulted for further antibiotic therapy. The patient is nonverbal and is unable to provide history. Pt was recently admitted for similar presentation 2 months ago and found to be in sepsis with + cdiff ER course was notable for: (1) severe sepsis (2) Chest Xray- with evidence of aspiration (3) Recent Travel: PAST MEDICAL HISTORY: PAST SURGICAL HISTORY: Social History: Smoking: unknown Alcohol: unknown Drugs: unknown Family History: Allergies No Known Allergies Allergy (Verified 07/13/17 19:02) HOME MEDICATIONS: Home Medications Medication Instructions Recorded Aspirin [ASA -] 81 mg PO DAILY 30 Days tab.chew 05/27/17 Metoprolol Tartrate [Lopressor -] 12.5 mg PEG BID tablet 05/27/17 Acetaminophen 325 mg PO Q4H 09/22/17 Amino Acids/Protein Hydrolys 30 ml PO BID 09/22/17 [Prosource No Carb Liquid Pkt] Enoxaparin [Lovenox -] 40 mg SQ DAILY 09/22/17 Metoprolol Tartrate 25 mg PO BID 09/22/17 Simvastatin 20 mg PO DAILY 09/22/17 Valproate Na [Depakene] 250 mg GT BID 09/22/17 Vit A/Vitamin D3/E/Aloe V/Zinc 5 gm TP DAILY 09/22/17 [Periguard Ointment] levETIRAcetam [Keppra -] 500 mg PO BID 09/22/17 Atorvastatin Ca [Lipitor] 40 mg GT HS 12/11/17 Lacosamide Liquid [Vimpat Liquid -] 10 mg GT BID 12/11/17 Valproate Sodium Liquid [Depakene 1,250 mg GT BID 12/11/17 Oral Solution -] Zinc Oxide 20% Topical Oint 454 gm NR TID 12/11/17 levETIRAcetam [Keppra Oral 500 mg GT BID 12/11/17 Solution -] Albuterol 0.083% Nebulizer Hanane 1 amp NEB Q4H PRN amp 12/24/17 [Ventolin 0.083% Nebulizer Soln -] Chlorhexidine Gluconate [Hibiclens 1 applic TP HS bottle 12/24/17 For Decolonization -] Vancomycin Oral Solution 125 mg GT Q6HPO 7 Days #0 ml 12/24/17 PHYSICAL EXAMINATION Vital Signs - 24 hr 02/26/18 02/26/18 02/26/18 15:00 16:05 16:10 Temperature 101 F H 102 F H Pulse Rate 120 H 120 H Pulse Rate [ Apical] Respiratory 38 H Rate Blood Pressure 95/67 Blood Pressure [Right Arm] O2 Sat by Pulse 92 L 92 L 92 L Oximetry (%) 02/26/18 02/26/18 02/26/18 16:13 16:45 18:37 Temperature 102 F H 99.2 F Pulse Rate Pulse Rate [ 121 H 107 H Apical] Respiratory 26 H 30 H Rate Blood Pressure Blood Pressure 114/84 122/83 [Right Arm] O2 Sat by Pulse 100 100 Oximetry (%) GENERAL: non verbal at baseline, hx of dementia. follows simple commands. in acute respiratory distress with NRB sats at 100% HEAD: Normal with no signs of trauma. EYES: Pupils equal, round and reactive to light, sclera anicteric, conjunctiva clear. No lid lag. EARS, NOSE, THROAT: Ears normal, nares patent, oropharynx clear without exudates. Dry mucous membranes. NECK: Normal range of motion, supple without lymphadenopathy, JVD, or masses. LUNGS: accessory muscle use, respiratory distress, lungs diminished, right>left HEART: Tachycardiac 100s-110s ABDOMEN: Hypoactive bowel sounds, G-Tube Soft, nontender, not distended, no guarding, no rebound, no masses. No hepatomegaly or splenomegaly. MUSCULOSKELETAL: Normal range of motion at all joints. No bony deformities or tenderness. No CVA tenderness. UPPER EXTREMITIES: 2+ pulses, warm, well-perfused. No cyanosis. No clubbing. No peripheral edema. LOWER EXTREMITIES: 2+ pulses, warm, well-perfused. No calf tenderness. No peripheral edema. NEUROLOGICAL: Non-verbal speech. Non-ambulatory. PSYCHIATRIC:dementia SKIN: poor dry skin turgor Laboratory Results - last 24 hr 02/26/18 02/26/18 02/26/18 16:24 16:24 16:24 WBC 22.8 H RBC 4.12 Hgb 11.2 Hct 34.8 D MCV 84.4 MCH 27.1 MCHC 32.1 RDW 19.5 H Plt Count 119 L D MPV 11.0 D Absolute Neuts (auto) 18.5 Neutrophils % 81.3 Neutrophils % (Manual) 87.0 H D Lymphocytes % 9.4 D Lymphocytes % (Manual) 11.0 D Monocytes % 8.7 D Monocytes % (Manual) 2 L Eosinophils % 0.0 D Basophils % 0.6 Nucleated RBC % 0 Hypochromia 1+ Platelet Estimate Slt decrease Platelet Comment No clumping noted Anisocytosis 1+ Macrocytosis 1+ PT with INR 13.40 H INR 1.19 H PTT (Actin FS) 28.4 VBG pH POC VBG pCO2 POC VBG pO2 Mixed VBG HCO3 Sodium 146 H Potassium 4.6 Chloride 111 H Carbon Dioxide 29 Anion Gap 6 L BUN 15 Creatinine 0.8 Creat Clearance w eGFR > 60 Random Glucose 112 H Lactic Acid Calcium 9.1 Total Bilirubin 0.3 AST 23 ALT 15 Alkaline Phosphatase 68 Troponin I Total Protein 7.2 Albumin 2.4 L Urine Color Urine Appearance Urine pH Ur Specific [place] Urine Protein Urine Glucose (UA) Urine Ketones Urine Blood Urine Nitrite Urine Bilirubin Urine Urobilinogen Ur Leukocyte Esterase 02/26/18 02/26/18 02/26/18 16:24 16:24 16:30 WBC RBC Hgb Hct MCV MCH MCHC RDW Plt Count MPV Absolute Neuts (auto) Neutrophils % Neutrophils % (Manual) Lymphocytes % Lymphocytes % (Manual) Monocytes % Monocytes % (Manual) Eosinophils % Basophils % Nucleated RBC % Hypochromia Platelet Estimate Platelet Comment Anisocytosis Macrocytosis PT with INR INR PTT (Actin FS) VBG pH 7.32 POC VBG pCO2 56.6 H D POC VBG pO2 21.6 L D Mixed VBG HCO3 28.0 H Sodium Potassium Chloride Carbon Dioxide Anion Gap BUN Creatinine Creat Clearance w eGFR Random Glucose Lactic Acid 3.7 H* Calcium Total Bilirubin AST ALT Alkaline Phosphatase Troponin I < 0.02 Total Protein Albumin Urine Color Urine Appearance Urine pH Ur Specific [place] Urine Protein Urine Glucose (UA) Urine Ketones Urine Blood Urine Nitrite Urine Bilirubin Urine Urobilinogen Ur Leukocyte Esterase 02/26/18 16:42 WBC RBC Hgb Hct MCV MCH MCHC RDW Plt Count MPV Absolute Neuts (auto) Neutrophils % Neutrophils % (Manual) Lymphocytes % Lymphocytes % (Manual) Monocytes % Monocytes % (Manual) Eosinophils % Basophils % Nucleated RBC % Hypochromia Platelet Estimate Platelet Comment Anisocytosis Macrocytosis PT with INR INR PTT (Actin FS) VBG pH POC VBG pCO2 POC VBG pO2 Mixed VBG HCO3 Sodium Potassium Chloride Carbon Dioxide Anion Gap BUN Creatinine Creat Clearance w eGFR Random Glucose Lactic Acid Calcium Total Bilirubin AST ALT Alkaline Phosphatase Troponin I Total Protein Albumin Urine Color Yellow Urine Appearance Clear Urine pH 5.0 Ur Specific [place] 1.019 Urine Protein Negative Urine Glucose (UA) Negative Urine Ketones Negative Urine Blood Negative Urine Nitrite Negative Urine Bilirubin Negative Urine Urobilinogen Negative Ur Leukocyte Esterase Negative ASSESSMENT/PLAN: Patient is a 67 year old female with a significant past medical history of hypertension, hyperlipidemia, seizure disorder, epilepsy, frequent UTIs, sepsis , anemia, TIAs dysphasia with peg tube and CVA. She is sent from [facility] for fevers and hypotension. On arrival to the ED, patient was found to be in severe sepsis with tachycardia (120s), fever (102f), leukocytosis (22.8), hypoxia requiring NRB mask and lactic acidosis (3.7). Vancomycin, Zosyn was given in ED and ID has been consulted for further antibiotic therapy. ID: Severe Sepsis: WBC 22.8 given Vanco and zosyn in ED, on NRB for airway support. Reza cultured. Post fluid resuscitation for lactic acidosis. Will start standing IVF and trend lactic acid. Appreciate ID consult for further antibiotic therapy. satellite project site monitor with sinus tachy, Chest xray with evidence of aspiration. Will start on Solumedrol for help in work of breathing. Hold tube feeds for now. Pulmonary consulted GI: Cdiff: Rule out cdiff, hold feeds, cdiff pending. Start on Vanco thru g tube until c diff is ruled out. Card: Hypertension: Hold beta iron secondary to severe sepsis. Pulmonary: Acute on chronic respiratory failure: On NRB, abg reviewed. Solumedrol 40mg q8 to help ease work of breathing. Pulmonary consult. Neuro: Seizure disorder/epilepsy: On Keppra, vimpat and depakane. Seizure precautions. CVA history: fall precautions. Functional Quadriplegia: bed bound, dependent on others for all ADLs. total care, turn and position q2 to protect bony prominences. fen NS @ 100cc/hr monitor electrolytes Hold tube feeds for now until respiratory status improves - NPO, all meds through GTube only Prophy lovenox 40mg daily full code Visit type - Emergency Visit Emergency Visit: Yes ED Registration Date: 02/26/18 Care time: The patient presented to the Emergency Department on the above date and was hospitalized for further evaluation of their emergent condition. - New Patient This patient is new to me today: Yes Date on this admission: 02/26/18 - Critical Care Critical Care patient: No Hospitalist Screening - Colonoscopy Questionnaire Colonoscopy Questionnaire: Colonoscopy Questionnaire - Patient: 50 - 75 years old and never had a screening colonoscopy: Unknown History of colon or rectal polyps, or CA: Unknown History of IBD, Crohn's disease or UC: Unknown History of abdominal radiation therapy as a child: Unknown - Relative: 1 with colon or rectal CA, or polyps at age 60 or younger: Unknown Colon or rectal CA diagnosed at age 45 or younger: Unknown Multiple relatives with colon or rectal CA: Unknown - Outcome: Screening Result: Negative Screen
[2018-02-26] MEDS ORDERED: SODIUM CHLORIDE 500 ML IV STA (20:50)
[2018-02-26] MEDS ORDERED: ACETAMINOPHEN 650 MG/20.3 ML ORAL SOLUTION (CUPS) GT PRN (21:21)
[2018-02-26] MEDS ORDERED: methylPREDNISolone NA SUCC 40 MG/1 ML VIAL ONE (21:48)
[2018-02-26] MEDS: methylPREDNISolone NA SUCC 40 MG/1 ML VIAL IVPUSH SCH (21:54)
[2018-02-26] MEDS ORDERED: AMINO ACIDS/PROTEIN HYDROLYS 30 ML LIQUID.PKT GT SCH (22:00)
[2018-02-26] MEDS ORDERED: AMINO ACIDS/PROTEIN HYDROLYS 30 ML LIQUID.PKT PO SCH (22:00)
[2018-02-26] MEDS ORDERED: VALPROATE SODIUM 250 MG/5 ML UNIT DOSE CUP GT SCH (22:00)
[2018-02-26] MEDS ORDERED: [UNRECOGNIZED DRUG - OTHER] GT SCH (22:00)
[2018-02-26] MEDS ORDERED: levETIRAcetam 500 MG/5 ML ORAL SOLUTION (UNIT-DOSE CUPS) GT SCH (22:00)
[2018-02-26] MEDS ORDERED: levETIRAcetam 500 MG TABLET (FP) PO SCH (22:00)
[2018-02-26] MEDS: VALPROATE SODIUM 250 MG/5 ML UNIT DOSE CUP GT SCH (23:41)
[2018-02-26] MEDS: ATORVASTATIN CA 10 MG TABLET (FP) GT SCH (23:42)
[2018-02-26] MEDS: levETIRAcetam 500 MG/5 ML ORAL SOLUTION (UNIT-DOSE CUPS) GT SCH (23:42)
[2018-02-26] MEDS: Lacosamide 50 MG/5 ML ORAL SOLUTION UNIT CUPS GT SCH (23:43)
[2018-02-27] MEDS: SODIUM CHLORIDE 1,000 ML IV SCH ×3 (00:16→22:51)
[2018-02-27] MEDS ORDERED: PT OWN MED DRAWER 7, Y5N ONE ×2 (00:26→20:37)
[2018-02-27] MEDS: VANCOMYCIN 250 MG/5 ML ORAL SOLUTION GT SCH ×5 (00:30→23:31)
[2018-02-27] MEDS: methylPREDNISolone NA SUCC 40 MG/1 ML VIAL IVPUSH SCH ×2 (01:01→10:33)
[2018-02-27 01:44] VITALS: BMI 24.5
[2018-02-27] MEDS ORDERED: PIPERACILLIN/TAZOBACTAM 3.375 GM VIAL IVPB ONE ×3 (02:15→18:02)
[2018-02-27] MEDS ORDERED: DEXTROSE 5%-WATER - 50 ML IVPB ONE ×3 (02:15→18:03)
[2018-02-27] MEDS ORDERED: PIPERACILLIN/TAZOB 3.375 GM 3.375 GM in DEXTROSE 5%-WATER - 50 ML IVPB ONE (03:00)
[2018-02-27 07:28] LABS: HEMATOCRIT 28.8 % (32.4-45.2); HEMOGLOBIN 10.2 GM/dL (10.7-15.3); MCH 31.8 pg (25.7-33.7); MCHC 35.5 g/dl (32.0-36.0); MEAN CELL VOLUME 89.6 fl (80-96); MEAN PLT VOLUME 11.2 fl (7.5-11.1); PLATELET COUNT 100 K/MM3 (134-434); RBC 3.21 M/mm3 (3.60-5.2); RDW 19.2 % (11.6-15.6); WHITE BLOOD COUNT 17.2 K/mm3 (4.0-10.0)
[2018-02-27 07:56] LABS: ANION GAP 6 (8-16); BLOOD UREA NITROGEN 13 mg/dL (7-18); CALCIUM 8.9 mg/dL (8.5-10.1); CHLORIDE 117 mmol/L (98-107); CO2 25 mmol/L (21-32); CREATININE 0.7 mg/dL (0.55-1.02); GLUCOSE,RANDOM 123 mg/dL (74-106); MAGNESIUM 1.9 mg/dL (1.8-2.4); POTASSIUM 4.1 mmol/L (3.5-5.1); SODIUM 148 mmol/L (136-145)
[2018-02-27] MEDS: ALBUTEROL SO4 2.5/IPRATROPIUM 0.5 INH SOL 3 ML VIAL.NEB. NEB SCH ×5 (08:11→20:04)
[2018-02-27] MEDS ORDERED: ASPIRIN 81 MG CHEWABLE TABLETS PO SCH (10:00)
[2018-02-27] MEDS ORDERED: PATIENT'S OWN MEDICATION (NON-FORMULARY) (Simvastatin [Simvastatin] 20 MG) PO SCH (10:00)
--- NOTE | 2018-02-27 10:17 | EKG ---
Test Reason : Blood Pressure : / mmHG Vent. Rate : 117 BPM Atrial Rate : 117 BPM P-R Int : 134 ms QRS Dur : 068 ms QT Int : 364 ms P-R-T Axes : 051 -02 057 degrees QTc Int : 507 ms SINUS TACHYCARDIA LOW VOLTAGE QRS INFERIOR INFARCT (CITED ON OR BEFORE 20-APR-2017) ABNORMAL ECG WHEN COMPARED WITH ECG OF 21-APR-2017 08:37, VENT. RATE HAS INCREASED Confirmed by ANDREW ALVAREZ, NATACHA ([id number]) on 02/27/2018 10:17:24 AM Referred By: Confirmed By:NATACHA MORALES MD
--- NOTE | 2018-02-27 10:30 | CON.PULM ---
Consult Consult Specialty:: PULMONARY Referred by:: FRAN Reid Reason for Consultation:: r/o pneumonia - History of Present Illness Chief Complaint: fever History of Present Illness: 67yo female with h/o HTN, hyperlipidemia, h/o CVA, seizure disorder, h/o C diff , dysphagia s/p PEG placement who was transferred from the skilled nursing for fevers and hypotension. Pt currently lethargic, unable to provide further history at this time. Febrile to 102 on admission with lactic acidosis, started on antibiotics, IVF with improvement in her BP. Urinalysis negative and CXR with mild right basilar infiltrate which is markedly improved from last CXR in November 2017. She has had history of severe C diff colitis. Currently growing polymicrobial bactermia. - History Source History Provided By: Medical Record Limitations to Obtaining History: Clinical Condition - Past Medical History Cardio/Vascular: Yes: HTN, Hyperlipdemia ...: No - Alcohol/Substance Use Hx Alcohol Use: No - Smoking History Smoking history: Never smoked Have you smoked in the past 12 months: No Home Medications - Allergies Allergies/Adverse Reactions: Allergies Allergy/AdvReac Type Severity Reaction Status Date / Time No Known Allergies Allergy Verified 07/13/17 19:02 - Home Medications Home Medications: Ambulatory Orders Aspirin [ASA -] 81 mg PO DAILY 30 Days tab.chew 05/27/17 Metoprolol Tartrate [Lopressor -] 12.5 mg PEG BID tablet 05/27/17 Acetaminophen 325 mg PO Q4H 09/22/17 Amino Acids/Protein Hydrolys [Prosource No Carb Liquid Pkt] 30 ml PO BID Enoxaparin [Lovenox -] 40 mg SQ DAILY 09/22/17 Metoprolol Tartrate 25 mg PO BID 09/22/17 Simvastatin 20 mg PO DAILY 09/22/17 Valproate Na [Depakene] 250 mg GT BID 09/22/17 Vit A/Vitamin D3/E/Aloe V/Zinc [Periguard Ointment] 5 gm TP DAILY 09/22/17 levETIRAcetam [Keppra -] 500 mg PO BID 09/22/17 Atorvastatin Ca [Lipitor] 40 mg GT HS 12/11/17 Lacosamide Liquid [Vimpat Liquid -] 10 mg GT BID 12/11/17 Valproate Sodium Liquid [Depakene Oral Solution -] 1,250 mg GT BID 12/11/17 Zinc Oxide 20% Topical Oint 454 gm NR TID 12/11/17 levETIRAcetam [Keppra Oral Solution -] 500 mg GT BID 12/11/17 Albuterol 0.083% Nebulizer Hanane [Ventolin 0.083% Nebulizer Soln -] 1 amp NEB Q4H PRN amp 12/24/17 Chlorhexidine Gluconate [Hibiclens For Decolonization -] 1 applic TP HS bottle 12/24/17 Vancomycin Oral Solution 125 mg GT Q6HPO 7 Days #0 ml 12/24/17 Review of Systems Unable to obtain ROS, reason: pt lethargic Physical Exam Vital Sings: Vital Signs Temperature 98.2 F 02/27/18 05:00 Pulse Rate 91 H 02/27/18 05:00 Respiratory Rate 20 02/27/18 05:00 Blood Pressure 95/85 02/27/18 05:00 O2 Sat by Pulse Oximetry (%) 98 02/26/18 23:00 Constitutional: Yes: Mild Distress, Other (lethargic) Eyes: Yes: Conjunctiva Clear, EOM Intact HENT: Yes: Atraumatic, Normocephalic Neck: Yes: Supple, Trachea Midline Cardiovascular: Yes: Tachycardia Respiratory: Yes: Diminished (decreased breath sounds at the bases) ...Clubbing: No Gastrointestinal: Yes: Normal Bowel Sounds, Soft. No: Tenderness Edema: No Neurological: Yes: Lethargy Labs: CBC, BMP 02/27/18 06:00 02/27/18 06:00 Imaging - Results Chest X-ray: Report Reviewed, Image Reviewed (right base infiltrate vs atelectasis) Problem List - Problems (1) Bacteremia Code(s): R78.81 - BACTEREMIA (2) Severe sepsis Code(s): A41.9 - SEPSIS, UNSPECIFIED ORGANISM; R65.20 - SEVERE SEPSIS WITHOUT SEPTIC SHOCK (3) Lactic acidosis Code(s): E87.2 - ACIDOSIS (4) Failure to thrive in adult Code(s): R62.7 - ADULT FAILURE TO THRIVE (5) Functional quadriplegia Code(s): R53.2 - FUNCTIONAL QUADRIPLEGIA (6) HLD (hyperlipidemia) Code(s): E78.5 - HYPERLIPIDEMIA, UNSPECIFIED (7) HTN (hypertension) Code(s): I10 - ESSENTIAL (PRIMARY) HYPERTENSION Assessment/Plan Polymicrobial Bacteremia Severe Sepsis Lactic Acidosis r/o Pneumonia h/o CVA HTN Hyperlipidemia Seizure Disorder - broad spectrum antibiotics - f/u blood cultures - stool for C diff - IVF - trend lactate - aspiration precautions - O2 to keep SpO2 >90% - DVT prophylaxis Thank you for this consult Thiago Wallis MD
[2018-02-27] MEDS: ENOXAPARIN NA (PORCINE) 40 MG/0.4 ML DISP.SYRIN SQ SCH (10:33)
[2018-02-27] MEDS: AMINO ACIDS/PROTEIN HYDROLYS 30 ML LIQUID.PKT GT SCH ×2 (10:34→18:13)
[2018-02-27] MEDS: levETIRAcetam 500 MG/5 ML ORAL SOLUTION (UNIT-DOSE CUPS) GT SCH ×2 (10:35→22:35)
[2018-02-27] MEDS: VALPROATE SODIUM 250 MG/5 ML UNIT DOSE CUP GT SCH ×2 (10:35→22:34)
[2018-02-27] MEDS: ASPIRIN 81 MG CHEWABLE TABLETS GT SCH (10:36)
--- NOTE | 2018-02-27 11:11 | CON.ID ---
Consult Consult Specialty:: infectious diseases Referred by:: Celia Reason for Consultation:: sepsi,bacteremia - History of Present Illness History of Present Illness: 67yo female with h/o HTN, hyperlipidemia, h/o CVA, seizure disorder, h/o C diff , dysphagia s/p PEG placement who was transferred from the half-way for fevers and hypotension. patient s awake and non verbal wiht known h/o of dementia continuing to spike fever and stillw ith high lactic acidosis and concentrated urine her vitals have improved though patient was admitted and worked up and has polymicrobial bacteremia - History Source History Provided By: Medical Record, Transfer Record Limitations to Obtaining History: Clinical Condition - Past Medical History Cardio/Vascular: Yes: HTN, Hyperlipdemia ...: No - Alcohol/Substance Use Hx Alcohol Use: No - Smoking History Smoking history: Never smoked Have you smoked in the past 12 months: No Home Medications - Allergies Allergies/Adverse Reactions: Allergies Allergy/AdvReac Type Severity Reaction Status Date / Time No Known Allergies Allergy Verified 07/13/17 19:02 - Home Medications Home Medications: Ambulatory Orders Aspirin [ASA -] 81 mg PO DAILY 30 Days tab.chew 05/27/17 Metoprolol Tartrate [Lopressor -] 12.5 mg PEG BID tablet 05/27/17 Acetaminophen 325 mg PO Q4H 09/22/17 Amino Acids/Protein Hydrolys [Prosource No Carb Liquid Pkt] 30 ml PO BID Enoxaparin [Lovenox -] 40 mg SQ DAILY 09/22/17 Metoprolol Tartrate 25 mg PO BID 09/22/17 Simvastatin 20 mg PO DAILY 09/22/17 Valproate Na [Depakene] 250 mg GT BID 09/22/17 Vit A/Vitamin D3/E/Aloe V/Zinc [Periguard Ointment] 5 gm TP DAILY 09/22/17 levETIRAcetam [Keppra -] 500 mg PO BID 09/22/17 Atorvastatin Ca [Lipitor] 40 mg GT HS 12/11/17 Lacosamide Liquid [Vimpat Liquid -] 10 mg GT BID 12/11/17 Valproate Sodium Liquid [Depakene Oral Solution -] 1,250 mg GT BID 12/11/17 Zinc Oxide 20% Topical Oint 454 gm NR TID 12/11/17 levETIRAcetam [Keppra Oral Solution -] 500 mg GT BID 12/11/17 Albuterol 0.083% Nebulizer Hanane [Ventolin 0.083% Nebulizer Soln -] 1 amp NEB Q4H PRN amp 12/24/17 Chlorhexidine Gluconate [Hibiclens For Decolonization -] 1 applic TP HS bottle 12/24/17 Vancomycin Oral Solution 125 mg GT Q6HPO 7 Days #0 ml 12/24/17 Review of Systems Unable to obtain ROS, reason: unable to obtain Physical Exam Vital Signs: Vital Signs Temperature 98.2 F 02/27/18 05:00 Pulse Rate 91 H 02/27/18 05:00 Respiratory Rate 20 02/27/18 05:00 Blood Pressure 95/85 02/27/18 05:00 O2 Sat by Pulse Oximetry (%) 98 02/26/18 23:00 Constitutional: Yes: No Distress, Calm Cardiovascular: Yes: Regular Rate and Rhythm, Tachycardia Respiratory: Yes: Regular, Poor Air Entry (bases) Gastrointestinal: Yes: Normal Bowel Sounds, Soft Renal/: Yes: Handy Present Musculoskeletal: Yes: WNL Extremities: Yes: WNL Neurological: Yes: Alert, Other (dementia) Psychiatric: Yes: Other Labs: CBC, BMP 02/27/18 06:00 02/27/18 06:00 Imaging - Results Chest X-ray: Report Reviewed, Image Reviewed Assessment/Plan patient coming in with sepsis and bacteremia Problem List - Problems (1) Bacteremia Code(s): R78.81 - BACTEREMIA (2) Severe sepsis Code(s): A41.9 - SEPSIS, UNSPECIFIED ORGANISM; R65.20 - SEVERE SEPSIS WITHOUT SEPTIC SHOCK (3) Lactic acidosis Code(s): E87.2 - ACIDOSIS (4) Failure to thrive in adult Code(s): R62.7 - ADULT FAILURE TO THRIVE (5) Functional quadriplegia Code(s): R53.2 - FUNCTIONAL QUADRIPLEGIA (6) HLD (hyperlipidemia) Code(s): E78.5 - HYPERLIPIDEMIA, UNSPECIFIED (7) HTN (hypertension) Code(s): I10 - ESSENTIAL (PRIMARY) HYPERTENSION Assessment/Plan will start patient on broad spectrum abx repeat blood cx tomorrow await for rest of the result cdiff work up rest as per the team monitor for fevers
[2018-02-27] MEDS: PIPERACILLIN/TAZOB 3.375 GM 3.375 GM in DEXTROSE 5%-WATER - 50 ML IVPB SCH ×2 (11:48→18:12)
[2018-02-27] MEDS: Lacosamide 50 MG/5 ML ORAL SOLUTION UNIT CUPS GT SCH ×2 (11:48→22:35)
--- NOTE | 2018-02-27 11:52 | PN ---
Progress Note (short form) - Note Progress Note: pt seen/ examined. chart reviewed. awake. non verbal. +ve blood cultures Discussed with Dr. Junior also today Vital Signs Temp 98.2 F 02/27/18 05:00 Pulse 91 H 02/27/18 05:00 Resp 20 02/27/18 05:00 BP 95/85 02/27/18 05:00 Pulse Ox 98 02/26/18 23:00 Intake & Output 02/26/18 02/26/18 02/27/18 11:59 23:59 11:59 Intake Total 800 1050 Output Total 400 Balance 400 1050 Weight 152 lb 6 oz Intake: IV 700 900 Normal Saline - 1,000 ml 900 @ 100 mls/hr IV ASDIR [facility] Rx#:[id number] Normal Saline - 1,000 ml 700 @ 1000 mls/hr IV ASDIR STA Rx#:[id number] IVPB 100 50 Oral 0 Tube Irrigant 100 Output: Urine 400 Handy 400 Other: Voiding Method Indwelling Catheter Indwelling Catheter # Unmeasured Voids Handy 250 Bowel Movement Yes Yes # Bowel Movements 1 Height 5 ft 6 in Body Mass Index (BMI) 24.5 Weight Measurement Method Patient Lift Scale Weight Measurement Method Estimated by Staff Active Medications Acetaminophen (Tylenol Oral Solution -) 650 mg GT Q6H PRN PRN Reason: FEVER Last Admin: 02/26/18 23:45 Dose: 650 mg Albuterol/Ipratropium (Duoneb -) 1 amp NEB RQID [facility] Last Admin: 02/27/18 11:24 Dose: 1 amp Amino Acids (Prosource No Carb Liquid Pkt) 30 ml GT BIDWM [facility] Last Admin: 02/27/18 10:34 Dose: 30 ml Aspirin (Asa -) 81 mg GT DAILY [facility] Last Admin: 02/27/18 10:36 Dose: 81 mg Atorvastatin Calcium (Lipitor -) 10 mg GT HS [facility] Last Admin: 02/26/18 23:42 Dose: 10 mg Enoxaparin Sodium (Lovenox -) 40 mg SQ DAILY [facility] Last Admin: 02/27/18 10:33 Dose: 40 mg Sodium Chloride (Normal Saline -) 1,000 mls @ 100 mls/hr IV [facility]IR [facility] Last Admin: 02/27/18 06:12 Dose: 100 mls/hr Vancomycin HCl 1,250 mg/ (Dextrose) 250 mls @ 166.667 mls/hr IVPB Q24H [facility]; Protocol Piperacillin Sod/Tazobactam (Sod 3.375 gm/ Dextrose) 50 mls @ 100 mls/hr IVPB Q8H-IV [facility]; Protocol Last Admin: 02/27/18 11:48 Dose: 100 mls/hr Lacosamide (Vimpat Liquid -) 200 mg GT BID [facility] Last Admin: 02/27/18 11:48 Dose: 200 mg Levetiracetam (Keppra Oral Solution -) 1,000 mg GT BID [facility] Last Admin: 02/27/18 10:35 Dose: 1,000 mg Methylprednisolone Sodium Succinate (Solu-Medrol -) 40 mg IVPUSH Q8H-IV [facility] Last Admin: 02/27/18 10:33 Dose: 40 mg Metoprolol Tartrate (Lopressor -) 12.5 mg PEG BID [facility] Valproate Sodium (Depakene -) 1,250 mg GT BID [facility] Last Admin: 02/27/18 10:35 Dose: 1,250 mg Vancomycin HCl (Vancomycin Oral Solution) 250 mg GT Q6HPO [facility] Last Admin: 02/27/18 06:11 Dose: 250 mg CBC, BMP 02/27/18 06:00 02/27/18 06:00 Microbiology 02/26/18 16:24 Blood Culture - Preliminary Blood - Peripheral Venous Pending Organism Pending Organism#2 02/26/18 16:24 Blood Culture - Preliminary Blood - Peripheral Venous Pending Organism Pending Organism#2 Physical Exam Constitutional: Yes: awake/ non verbal. chronic ill appearance. Eyes: Yes: Conjunctiva Clear, EOM Intact HEENT: Yes: Atraumatic, Normocephalic Neck: Yes: Supple, Trachea Midline. No jvd. Cardiovascular: Yes: S1, S2 rrr Respiratory: Yes: Diminished (decreased breath sounds at the bases) Gastrointestinal: Yes: Normal Bowel Sounds, Soft. No: Tenderness. Problem List - Problems (1) Bacteremia Code(s): R78.81 - BACTEREMIA (2) Severe sepsis Code(s): A41.9 - SEPSIS, UNSPECIFIED ORGANISM; R65.20 - SEVERE SEPSIS WITHOUT SEPTIC SHOCK (3) Lactic acidosis Code(s): E87.2 - ACIDOSIS (4) Failure to thrive in adult Code(s): R62.7 - ADULT FAILURE TO THRIVE (5) Functional quadriplegia Code(s): R53.2 - FUNCTIONAL QUADRIPLEGIA (6) HLD (hyperlipidemia) Code(s): E78.5 - HYPERLIPIDEMIA, UNSPECIFIED (7) HTN (hypertension) Code(s): I10 - ESSENTIAL (PRIMARY) HYPERTENSION Assessment/Plan Sepsis Lactic Acidosis Pneumonia ? h/o CVA HTN Hyperlipidemia Seizure Disorder continue abx Continue fluids/ D/c solumedrol f/u labs overall condition gaurded will follow
[2018-02-27] MEDS: VANCOMYCIN 1,250 MG in DEXTROSE 5%-WATER - 250 ML IVPB SCH (12:52)
[2018-02-27] MEDS: ATORVASTATIN CA 10 MG TABLET (FP) GT SCH (22:35)
[2018-02-28] MEDS ORDERED: PIPERACILLIN/TAZOBACTAM 3.375 GM VIAL IVPB ONE ×3 (01:53→19:27)
[2018-02-28] MEDS ORDERED: DEXTROSE 5%-WATER - 50 ML IVPB ONE ×3 (01:54→19:27)
[2018-02-28] MEDS: PIPERACILLIN/TAZOB 3.375 GM 3.375 GM in DEXTROSE 5%-WATER - 50 ML IVPB SCH ×3 (02:09→19:31)
[2018-02-28] MEDS: VANCOMYCIN 250 MG/5 ML ORAL SOLUTION GT SCH ×4 (06:24→23:07)
[2018-02-28 07:32] LABS: BASO % 0.5 % (0-2.0); HEMATOCRIT 26.9 % (32.4-45.2); HEMOGLOBIN 9.8 GM/dL (10.7-15.3); LYMPH % 17.2 % (8-40); MCH 33.8 pg (25.7-33.7); MCHC 36.5 g/dl (32.0-36.0); MEAN CELL VOLUME 92.6 fl (80-96); MEAN PLT VOLUME 10.9 fl (7.5-11.1); MONO % 3.9 % (3.8-10.2); NEUT % 78.4 % (42.8-82.8); PLATELET COUNT 111 K/MM3 (134-434); RDW 19.2 % (11.6-15.6); WHITE BLOOD COUNT 11.8 K/mm3 (4.0-10.0)
[2018-02-28 07:54] LABS: ALBUMIN 2.1 g/dl (3.4-5.0); ANION GAP 7 (8-16); BILIRUBIN,TOTAL 0.2 mg/dL (0.2-1.0); BLOOD UREA NITROGEN 16 mg/dL (7-18); CALCIUM 8.9 mg/dL (8.5-10.1); CHLORIDE 121 mmol/L (98-107); CO2 25 mmol/L (21-32); CREATININE 0.6 mg/dL (0.55-1.02); GLUCOSE,RANDOM 73 mg/dL (74-106); POTASSIUM 3.6 mmol/L (3.5-5.1); SGOT/AST 9 U/L (15-37); SGPT/ALT 9 U/L (12-78); SODIUM 153 mmol/L (136-145); TOT PROT 6.3 g/dl (6.4-8.2)
[2018-02-28 07:55] LABS: ALK PHOS 50 U/L (45-117)
[2018-02-28] MEDS: ALBUTEROL SO4 2.5/IPRATROPIUM 0.5 INH SOL 3 ML VIAL.NEB. NEB SCH ×4 (08:20→20:48)
[2018-02-28] MEDS: SODIUM CHLORIDE 1,000 ML IV SCH (09:24)
[2018-02-28] MEDS ORDERED: PT OWN MED DRAWER 7, Y5N ONE ×2 (09:37→20:57)
[2018-02-28] MEDS: ASPIRIN 81 MG CHEWABLE TABLETS GT SCH (10:22)
[2018-02-28] MEDS: AMINO ACIDS/PROTEIN HYDROLYS 30 ML LIQUID.PKT GT SCH ×2 (10:22→19:32)
[2018-02-28] MEDS: VALPROATE SODIUM 250 MG/5 ML UNIT DOSE CUP GT SCH ×2 (10:23→22:50)
[2018-02-28] MEDS: levETIRAcetam 500 MG/5 ML ORAL SOLUTION (UNIT-DOSE CUPS) GT SCH ×2 (10:24→22:50)
[2018-02-28] MEDS: ENOXAPARIN NA (PORCINE) 40 MG/0.4 ML DISP.SYRIN SQ SCH (10:24)
[2018-02-28] MEDS: Lacosamide 50 MG/5 ML ORAL SOLUTION UNIT CUPS GT SCH ×2 (10:25→22:50)
[2018-02-28] MEDS: VANCOMYCIN 1,250 MG in DEXTROSE 5%-WATER - 250 ML IVPB SCH (10:27)
--- NOTE | 2018-02-28 11:07 | PN ---
Progress Note (short form) - Note Progress Note: PULMONARY More alert, awake today. Fever curve trending down. Stool positive for C diff. Vital Signs Period Temp Pulse Resp BP Sys/Levine Pulse Ox Last 24 Hr 97.0 F-98.5 F 83-95 18-20 98-124/50-64 96 Gen: more awake Heart: RRR Lung: decreased breath sounds at the bases Abd: softly distended, nontender Ext: no edema CBC, BMP 02/28/18 06:15 02/28/18 06:15 Active Medications Acetaminophen (Tylenol Oral Solution -) 650 mg GT Q6H PRN PRN Reason: FEVER Last Admin: 02/26/18 23:45 Dose: 650 mg Albuterol/Ipratropium (Duoneb -) 1 amp NEB RQID [facility] Last Admin: 02/28/18 08:20 Dose: 1 amp Amino Acids (Prosource No Carb Liquid Pkt) 30 ml GT BIDWM [facility] Last Admin: 02/28/18 10:22 Dose: 30 ml Aspirin (Asa -) 81 mg GT DAILY [facility] Last Admin: 02/28/18 10:22 Dose: 81 mg Atorvastatin Calcium (Lipitor -) 10 mg GT HS [facility] Last Admin: 02/27/18 22:35 Dose: 10 mg Enoxaparin Sodium (Lovenox -) 40 mg SQ DAILY [facility] Last Admin: 02/28/18 10:24 Dose: 40 mg Sodium Chloride (Normal Saline -) 1,000 mls @ 100 mls/hr IV ASDIR [facility] Last Admin: 02/28/18 09:24 Dose: 100 mls/hr Vancomycin HCl 1,250 mg/ (Dextrose) 250 mls @ 166.667 mls/hr IVPB Q24H [facility]; Protocol Last Admin: 02/28/18 10:27 Dose: 166.667 mls/hr Piperacillin Sod/Tazobactam (Sod 3.375 gm/ Dextrose) 50 mls @ 100 mls/hr IVPB Q8H-IV [facility]; Protocol Last Admin: 02/28/18 10:26 Dose: 100 mls/hr Lacosamide (Vimpat Liquid -) 200 mg GT BID [facility] Last Admin: 02/28/18 10:25 Dose: 200 mg Levetiracetam (Keppra Oral Solution -) 1,000 mg GT BID [facility] Last Admin: 02/28/18 10:24 Dose: 1,000 mg Metoprolol Tartrate (Lopressor -) 12.5 mg PEG BID [facility] Valproate Sodium (Depakene -) 1,250 mg GT BID [facility] Last Admin: 02/28/18 10:23 Dose: 1,250 mg Vancomycin HCl (Vancomycin Oral Solution) 250 mg GT Q6HPO [facility] Last Admin: 02/28/18 06:24 Dose: 250 mg A/P Polymicrobial Bacteremia C Diff Colitis Severe Sepsis Lactic Acidosis r/o Pneumonia h/o CVA HTN Hyperlipidemia Seizure Disorder - broad spectrum antibiotics - f/u blood cultures - IVF - aspiration precautions - O2 to keep SpO2 >90% - DVT prophylaxis Problem List - Problems (1) Bacteremia Code(s): R78.81 - BACTEREMIA (2) Severe sepsis Code(s): A41.9 - SEPSIS, UNSPECIFIED ORGANISM; R65.20 - SEVERE SEPSIS WITHOUT SEPTIC SHOCK (3) Lactic acidosis Code(s): E87.2 - ACIDOSIS (4) Failure to thrive in adult Code(s): R62.7 - ADULT FAILURE TO THRIVE (5) Functional quadriplegia Code(s): R53.2 - FUNCTIONAL QUADRIPLEGIA (6) HLD (hyperlipidemia) Code(s): E78.5 - HYPERLIPIDEMIA, UNSPECIFIED (7) HTN (hypertension) Code(s): I10 - ESSENTIAL (PRIMARY) HYPERTENSION
--- NOTE | 2018-02-28 12:06 | PN ---
Progress Note (short form) - Note Progress Note: Progress Note (short form) events noted pt seen/ examined. chart reviewed. has diarrhea-- loose bm awake. no complaints of abd pain Dementia-- smiling +ve blood cultures Vital Signs - 24 hr 02/27/18 02/27/18 02/27/18 13:00 17:00 21:00 Temperature 97.0 F L 98.5 F 98 F Pulse Rate 95 H 87 92 H Respiratory 18 20 18 Rate Blood Pressure 98/50 124/63 107/63 O2 Sat by Pulse 96 Oximetry (%) 02/28/18 02/28/18 02/28/18 01:00 05:00 09:00 Temperature 98 F 98 F 98.6 F Pulse Rate 83 89 90 Respiratory 18 18 18 Rate Blood Pressure 98/59 118/64 106/61 O2 Sat by Pulse 96 Oximetry (%) Current Medications Generic Name Dose Route Start Last Admin Trade Name Freq PRN Reason Stop Dose Admin Acetaminophen 650 mg 02/26/18 21:21 02/26/18 23:45 Tylenol Oral Solution - GT 650 mg Q6H PRN Administration FEVER Albuterol/Ipratropium 1 amp 02/26/18 20:18 02/28/18 08:20 Duoneb - NEB 1 amp RQID [facility] Administration Amino Acids 30 ml 02/27/18 08:00 02/28/18 10:22 Prosource No Carb Liquid Pkt GT 30 ml BIDWM [facility] Administration Aspirin 81 mg 02/27/18 10:00 02/28/18 10:22 Asa - GT 81 mg DAILY [facility] Administration Atorvastatin Calcium 10 mg 02/26/18 22:00 02/27/18 22:35 Lipitor - GT 10 mg HS [facility] Administration Enoxaparin Sodium 40 mg 02/27/18 10:00 02/28/18 10:24 Lovenox - SQ 40 mg DAILY [facility] Administration Sodium Chloride 1,000 mls @ 100 mls/hr 02/26/18 21:49 02/28/18 09:24 Normal Saline - IV 100 mls/hr ASDIR [facility] Administration Vancomycin HCl 1,250 mg/ 250 mls @ 166.667 mls/hr 02/27/18 11:15 02/28/18 10: 27 Dextrose IVPB 166.667 mls/hr Q24H [facility] Administration Protocol Piperacillin Sod/Tazobactam 50 mls @ 100 mls/hr 02/27/18 11:15 02/28/18 10:26 Sod 3.375 gm/ Dextrose IVPB 100 mls/hr Q8H-IV [facility] Administration Protocol Lacosamide 200 mg 02/26/18 22:00 02/28/18 10:25 Vimpat Liquid - GT 200 mg BID [facility] Administration Levetiracetam 1,000 mg 02/26/18 22:00 02/28/18 10:24 Keppra Oral Solution - GT 1,000 mg BID [facility] Administration Metoprolol Tartrate 12.5 mg 02/26/18 22:00 Lopressor - PEG BID [facility] Valproate Sodium 1,250 mg 02/26/18 22:00 02/28/18 10:23 Depakene - GT 1,250 mg BID [facility] Administration Vancomycin HCl 250 mg 02/27/18 00:00 02/28/18 06:24 Vancomycin Oral Solution GT 250 mg Q6HPO [facility] Administration Laboratory Results - last 24 hr 02/28/18 02/28/18 02/28/18 06:15 06:15 07:00 WBC 11.8 H RBC 2.90 L Hgb 9.8 L Hct 26.9 L MCV 92.6 MCH 33.8 H MCHC 36.5 H RDW 19.2 H Plt Count 111 L MPV 10.9 Absolute Neuts (auto) 9.3 Neutrophils % 78.4 Lymphocytes % 17.2 D Monocytes % 3.9 Eosinophils % 0.0 Basophils % 0.5 Nucleated RBC % 0 Sodium 153 H Potassium 3.6 Chloride 121 H Carbon Dioxide 25 Anion Gap 7 L BUN 16 Creatinine 0.6 Creat Clearance w eGFR > 60 Random Glucose 73 L Lactic Acid 1.5 Calcium 8.9 Total Bilirubin 0.2 AST 9 L ALT 9 L Alkaline Phosphatase 50 D Total Protein 6.3 L Albumin 2.1 L Physical Exam Constitutional: Yes: awake/ non verbal. chronic ill appearance. Eyes: Yes: Conjunctiva Clear, EOM Intact HEENT: Yes: Atraumatic, Normocephalic Neck: Yes: Supple, Trachea Midline. No jvd. Cardiovascular: Yes: S1, S2 rrr Respiratory: Yes: Diminished (decreased breath sounds at the bases) Gastrointestinal: Yes: Normal Bowel Sounds, Soft. No: Tenderness.Peg+ Problem List - Problems (1) Bacteremia Code(s): R78.81 - BACTEREMIA (2) Severe sepsis Code(s): A41.9 - SEPSIS, UNSPECIFIED ORGANISM; R65.20 - SEVERE SEPSIS WITHOUT SEPTIC SHOCK (3) Lactic acidosis Code(s): E87.2 - ACIDOSIS (4) Failure to thrive in adult Code(s): R62.7 - ADULT FAILURE TO THRIVE (5) Functional quadriplegia Code(s): R53.2 - FUNCTIONAL QUADRIPLEGIA (6) HLD (hyperlipidemia) Code(s): E78.5 - HYPERLIPIDEMIA, UNSPECIFIED (7) HTN (hypertension) Code(s): I10 - ESSENTIAL (PRIMARY) HYPERTENSION Assessment/Plan Sepsis Lactic Acidosis Cdiff colitis dementia h/o CVA HTN Hyperlipidemia Seizure Disorder continue abx continue fluids start GT feeds, add free water overall condition guarded will follow
--- NOTE | 2018-02-28 14:23 | PN ---
Progress Note, Physician History of Present Illness: positive dementia no new issues looks comfortable much better than yesterday - Current Medication List Current Medications: Active Medications Acetaminophen (Tylenol Oral Solution -) 650 mg GT Q6H PRN PRN Reason: FEVER Last Admin: 02/26/18 23:45 Dose: 650 mg Albuterol/Ipratropium (Duoneb -) 1 amp NEB RQID [facility] Last Admin: 02/28/18 08:20 Dose: 1 amp Amino Acids (Prosource No Carb Liquid Pkt) 30 ml GT BIDWM [facility] Last Admin: 02/28/18 10:22 Dose: 30 ml Aspirin (Asa -) 81 mg GT DAILY [facility] Last Admin: 02/28/18 10:22 Dose: 81 mg Atorvastatin Calcium (Lipitor -) 10 mg GT HS [facility] Last Admin: 02/27/18 22:35 Dose: 10 mg Enoxaparin Sodium (Lovenox -) 40 mg SQ DAILY [facility] Last Admin: 02/28/18 10:24 Dose: 40 mg Sodium Chloride (Normal Saline -) 1,000 mls @ 100 mls/hr IV ASDIR [facility] Last Admin: 02/28/18 09:24 Dose: 100 mls/hr Vancomycin HCl 1,250 mg/ (Dextrose) 250 mls @ 166.667 mls/hr IVPB Q24H [facility]; Protocol Last Admin: 02/28/18 10:27 Dose: 166.667 mls/hr Piperacillin Sod/Tazobactam (Sod 3.375 gm/ Dextrose) 50 mls @ 100 mls/hr IVPB Q8H-IV [facility]; Protocol Last Admin: 02/28/18 10:26 Dose: 100 mls/hr Lacosamide (Vimpat Liquid -) 200 mg GT BID [facility] Last Admin: 02/28/18 10:25 Dose: 200 mg Levetiracetam (Keppra Oral Solution -) 1,000 mg GT BID [facility] Last Admin: 02/28/18 10:24 Dose: 1,000 mg Metoprolol Tartrate (Lopressor -) 12.5 mg PEG BID [facility] Valproate Sodium (Depakene -) 1,250 mg GT BID [facility] Last Admin: 02/28/18 10:23 Dose: 1,250 mg Vancomycin HCl (Vancomycin Oral Solution) 250 mg GT Q6HPO [facility] Last Admin: 02/28/18 12:00 Dose: 250 mg - Objective Vital Signs: Vital Signs Temperature 97.4 F L 02/28/18 13:51 Pulse Rate 89 02/28/18 13:51 Respiratory Rate 18 02/28/18 13:51 Blood Pressure 114/71 02/28/18 13:51 O2 Sat by Pulse Oximetry (%) 96 02/28/18 09:00 Constitutional: Yes: No Distress, Calm Cardiovascular: Yes: Regular Rate and Rhythm Respiratory: Yes: Regular, CTA Bilaterally Gastrointestinal: Yes: Normal Bowel Sounds, Soft Genitourinary: Yes: Handy Present Musculoskeletal: Yes: WNL Extremities: Yes: WNL Neurological: Yes: Alert, Other Labs: CBC, BMP 02/28/18 06:15 02/28/18 06:15 INR, PTT INR 1.19 (0.82-1.09) H 02/26/18 16:24 Assessment/Plan patient coming in with sepsis and bacteremia Problem List - Problems (1) Bacteremia Code(s): R78.81 - BACTEREMIA (2) Severe sepsis Code(s): A41.9 - SEPSIS, UNSPECIFIED ORGANISM; R65.20 - SEVERE SEPSIS WITHOUT SEPTIC SHOCK (3) Lactic acidosis Code(s): E87.2 - ACIDOSIS (4) Failure to thrive in adult Code(s): R62.7 - ADULT FAILURE TO THRIVE (5) Functional quadriplegia Code(s): R53.2 - FUNCTIONAL QUADRIPLEGIA (6) HLD (hyperlipidemia) Code(s): E78.5 - HYPERLIPIDEMIA, UNSPECIFIED (7) HTN (hypertension) Code(s): I10 - ESSENTIAL (PRIMARY) HYPERTENSION cdiff Assessment/Plan continue abx await for repeat cx reports hydration rest as per the team
[2018-02-28] MEDS: ATORVASTATIN CA 10 MG TABLET (FP) GT SCH (22:50)
[2018-03-01] MEDS: SODIUM CHLORIDE 1,000 ML IV SCH ×2 (00:03→10:43)
[2018-03-01] MEDS ORDERED: PIPERACILLIN/TAZOBACTAM 3.375 GM VIAL IVPB ONE ×3 (02:14→17:34)
[2018-03-01] MEDS ORDERED: DEXTROSE 5%-WATER - 50 ML IVPB ONE ×3 (02:15→17:34)
[2018-03-01] MEDS: PIPERACILLIN/TAZOB 3.375 GM 3.375 GM in DEXTROSE 5%-WATER - 50 ML IVPB SCH ×3 (02:34→17:45)
[2018-03-01] MEDS: VANCOMYCIN 250 MG/5 ML ORAL SOLUTION GT SCH ×4 (06:29→23:11)
[2018-03-01 06:47] LABS: HEMATOCRIT 29.2 % (32.4-45.2); HEMOGLOBIN 10.2 GM/dL (10.7-15.3); MCH 31.3 pg (25.7-33.7); MCHC 34.9 g/dl (32.0-36.0); MEAN CELL VOLUME 89.7 fl (80-96); MEAN PLT VOLUME 10.2 fl (7.5-11.1); PLATELET COUNT 126 K/MM3 (134-434); RBC 3.25 M/mm3 (3.60-5.2); RDW 18.8 % (11.6-15.6); WHITE BLOOD COUNT 5.6 K/mm3 (4.0-10.0)
[2018-03-01 07:19] LABS: ANION GAP 5 (8-16); BLOOD UREA NITROGEN 12 mg/dL (7-18); CALCIUM 8.7 mg/dL (8.5-10.1); CHLORIDE 120 mmol/L (98-107); CO2 28 mmol/L (21-32); GLUCOSE,RANDOM 100 mg/dL (74-106); POTASSIUM 3.2 mmol/L (3.5-5.1); SODIUM 153 mmol/L (136-145)
[2018-03-01 07:20] LABS: CREATININE 0.5 mg/dL (0.55-1.02)
[2018-03-01] MEDS: ALBUTEROL SO4 2.5/IPRATROPIUM 0.5 INH SOL 3 ML VIAL.NEB. NEB SCH ×4 (08:12→20:17)
[2018-03-01] MEDS: AMINO ACIDS/PROTEIN HYDROLYS 30 ML LIQUID.PKT GT SCH ×2 (08:54→17:45)
[2018-03-01] MEDS: VALPROATE SODIUM 250 MG/5 ML UNIT DOSE CUP GT SCH ×2 (10:26→21:46)
[2018-03-01] MEDS: ASPIRIN 81 MG CHEWABLE TABLETS GT SCH (10:27)
[2018-03-01] MEDS: ENOXAPARIN NA (PORCINE) 40 MG/0.4 ML DISP.SYRIN SQ SCH ×2 (10:28→11:24)
[2018-03-01] MEDS: Lacosamide 50 MG/5 ML ORAL SOLUTION UNIT CUPS GT SCH ×2 (10:28→21:46)
[2018-03-01] MEDS: levETIRAcetam 500 MG/5 ML ORAL SOLUTION (UNIT-DOSE CUPS) GT SCH ×2 (10:29→21:45)
[2018-03-01] MEDS: VANCOMYCIN 1,250 MG in DEXTROSE 5%-WATER - 250 ML IVPB SCH (11:09)
[2018-03-01] MEDS ORDERED: PT OWN MED DRAWER 7, Y5N ONE ×2 (11:31→20:10)
--- NOTE | 2018-03-01 11:34 | PN ---
Progress Note, Physician History of Present Illness: positive dementia no new issues looks comfortable not talking to me but according to the staff she does talk - Current Medication List Current Medications: Active Medications Acetaminophen (Tylenol Oral Solution -) 650 mg GT Q6H PRN PRN Reason: FEVER Last Admin: 02/26/18 23:45 Dose: 650 mg Albuterol/Ipratropium (Duoneb -) 1 amp NEB RQID [facility] Last Admin: 03/01/18 08:12 Dose: 1 amp Amino Acids (Prosource No Carb Liquid Pkt) 30 ml GT BIDWM [facility] Last Admin: 03/01/18 08:54 Dose: 30 ml Aspirin (Asa -) 81 mg GT DAILY [facility] Last Admin: 03/01/18 10:27 Dose: 81 mg Atorvastatin Calcium (Lipitor -) 10 mg GT HS [facility] Last Admin: 02/28/18 22:50 Dose: 10 mg Enoxaparin Sodium (Lovenox -) 40 mg SQ DAILY [facility] Last Admin: 03/01/18 11:24 Dose: Not Given Sodium Chloride (Normal Saline -) 1,000 mls @ 100 mls/hr IV ASDIR [facility] Last Admin: 03/01/18 10:43 Dose: 100 mls/hr Piperacillin Sod/Tazobactam (Sod 3.375 gm/ Dextrose) 50 mls @ 100 mls/hr IVPB Q8H-IV [facility]; Protocol Last Admin: 03/01/18 10:29 Dose: 100 mls/hr Lacosamide (Vimpat Liquid -) 200 mg GT BID [facility] Last Admin: 03/01/18 10:28 Dose: 200 mg Levetiracetam (Keppra Oral Solution -) 1,000 mg GT BID [facility] Last Admin: 03/01/18 10:29 Dose: 1,000 mg Metoprolol Tartrate (Lopressor -) 12.5 mg PEG BID [facility] Valproate Sodium (Depakene -) 1,250 mg GT BID [facility] Last Admin: 03/01/18 10:26 Dose: 1,250 mg Vancomycin HCl (Vancomycin Oral Solution) 250 mg GT Q6HPO [facility] Last Admin: 03/01/18 06:29 Dose: 250 mg - Objective Vital Signs: Vital Signs Temperature 97.9 F 03/01/18 06:00 Pulse Rate 79 03/01/18 06:00 Respiratory Rate 20 03/01/18 06:00 Blood Pressure 120/75 03/01/18 06:00 O2 Sat by Pulse Oximetry (%) 97 02/28/18 21:00 Constitutional: Yes: No Distress, Calm Eyes: Yes: Conjunctiva Clear HENT: Yes: Atraumatic, Normocephalic Cardiovascular: Yes: S1, S2 Respiratory: Yes: Regular, Poor Air Entry Gastrointestinal: Yes: Normal Bowel Sounds, Soft Genitourinary: Yes: Handy Present Musculoskeletal: Yes: WNL Extremities: Yes: WNL Neurological: Yes: Alert Labs: CBC, BMP 03/01/18 06:00 03/01/18 06:00 INR, PTT INR 1.19 (0.82-1.09) H 02/26/18 16:24 Assessment/Plan patient coming in with sepsis and bacteremia Problem List - Problems (1) Bacteremia Code(s): R78.81 - BACTEREMIA (2) Severe sepsis Code(s): A41.9 - SEPSIS, UNSPECIFIED ORGANISM; R65.20 - SEVERE SEPSIS WITHOUT SEPTIC SHOCK (3) Lactic acidosis Code(s): E87.2 - ACIDOSIS (4) Failure to thrive in adult Code(s): R62.7 - ADULT FAILURE TO THRIVE (5) Functional quadriplegia Code(s): R53.2 - FUNCTIONAL QUADRIPLEGIA (6) HLD (hyperlipidemia) Code(s): E78.5 - HYPERLIPIDEMIA, UNSPECIFIED (7) HTN (hypertension) Code(s): I10 - ESSENTIAL (PRIMARY) HYPERTENSION cdiff Assessment/Plan pharmacy called in to say that the patient has vre in blood will stop vanco start dapto awaiting still for identification of couple of bacteria repeat blood cx rest as per the team
--- NOTE | 2018-03-01 11:38 | PN ---
Progress Note (short form) - Note Progress Note: Progress Note (short form) events noted pt seen/ examined. chart reviewed. has diarrhea-- loose bm today awake. no complaints of abd pain Dementia-- smiling +ve blood cultures Vital Signs - 24 hr Vital Signs - 24 hr 02/28/18 02/28/18 02/28/18 21:00 21:21 22:00 Temperature 97.9 F 98.5 F Pulse Rate 82 77 Respiratory 20 18 20 Rate Blood Pressure 117/70 94/60 O2 Sat by Pulse 97 Oximetry (%) 03/01/18 03/01/18 03/01/18 02:00 06:00 09:00 Temperature 98.9 F 97.9 F Pulse Rate 82 79 Respiratory 20 20 Rate Blood Pressure 105/69 120/75 O2 Sat by Pulse 96 Oximetry (%) 03/01/18 03/01/18 03/01/18 10:00 14:00 17:49 Temperature 97.9 F 97.5 F L 98.6 F Pulse Rate 79 90 84 Respiratory 20 20 18 Rate Blood Pressure 125/77 113/59 103/62 O2 Sat by Pulse Oximetry (%) Current Medications Generic Name Dose Route Start Last Admin Trade Name Freq PRN Reason Stop Dose Admin Acetaminophen 650 mg 02/26/18 21:21 02/26/18 23:45 Tylenol Oral Solution - GT 650 mg Q6H PRN Administration FEVER Albuterol/Ipratropium 1 amp 02/26/18 20:18 03/01/18 15:49 Duoneb - NEB 1 amp RQID [facility] Administration Amino Acids 30 ml 02/27/18 08:00 03/01/18 17:45 Prosource No Carb Liquid Pkt GT 30 ml BIDWM [facility] Administration Aspirin 81 mg 02/27/18 10:00 03/01/18 10:27 Asa - GT 81 mg DAILY [facility] Administration Enoxaparin Sodium 40 mg 02/27/18 10:00 03/01/18 11:24 Lovenox - SQ Not Given DAILY [facility] Piperacillin Sod/Tazobactam 50 mls @ 100 mls/hr 02/27/18 11:15 03/01/18 17:45 Sod 3.375 gm/ Dextrose IVPB 100 mls/hr Q8H-IV [facility] Administration Protocol Daptomycin 400 mg/ Sodium 50 mls @ 100 mls/hr 03/01/18 13:00 03/01/18 13:54 Chloride IVPB 100 mls/hr DAILY@1300 [facility] Administration Potassium Chloride 20 meq/ 1,010 mls @ 101 mls/hr 03/01/18 19:29 Sodium Chloride IVPB Q10H [facility] Lacosamide 200 mg 02/26/18 22:00 03/01/18 10:28 Vimpat Liquid - GT 200 mg BID [facility] Administration Levetiracetam 1,000 mg 02/26/18 22:00 03/01/18 10:29 Keppra Oral Solution - GT 1,000 mg BID [facility] Administration Metoprolol Tartrate 12.5 mg 02/26/18 22:00 Lopressor - PEG BID [facility] Valproate Sodium 1,250 mg 02/26/18 22:00 03/01/18 10:26 Depakene - GT 1,250 mg BID [facility] Administration Vancomycin HCl 250 mg 02/27/18 00:00 03/01/18 17:44 Vancomycin Oral Solution GT 250 mg Q6HPO [facility] Administration Laboratory Results - last 24 hr 02/26/18 03/01/18 03/01/18 16:30 06:00 06:00 WBC 5.6 RBC 3.25 L Hgb 10.2 L Hct 29.2 L MCV 89.7 MCH 31.3 MCHC 34.9 RDW 18.8 H Plt Count 126 L MPV 10.2 VBG pH 7.32 POC VBG pCO2 56.6 H D POC VBG pO2 21.6 L D Mixed VBG HCO3 28.0 H Sodium 153 H Potassium 3.2 L Chloride 120 H Carbon Dioxide 28 Anion Gap 5 L BUN 12 Creatinine 0.5 L Creat Clearance w eGFR > 60 Random Glucose 100 Calcium 8.7 Physical Exam Constitutional: Yes: awake/ non verbal. chronic ill appearance. Eyes: Yes: Conjunctiva Clear, EOM Intact HEENT: Yes: Atraumatic, Normocephalic Neck: Yes: Supple, Trachea Midline. No jvd. Cardiovascular: Yes: S1, S2 rrr Respiratory: Yes: Diminished (decreased breath sounds at the bases) Gastrointestinal: Yes: Normal Bowel Sounds, Soft. No: Tenderness.Peg+ Problem List - Problems (1) Bacteremia Code(s): R78.81 - BACTEREMIA (2) Severe sepsis Code(s): A41.9 - SEPSIS, UNSPECIFIED ORGANISM; R65.20 - SEVERE SEPSIS WITHOUT SEPTIC SHOCK (3) Lactic acidosis Code(s): E87.2 - ACIDOSIS (4) Failure to thrive in adult Code(s): R62.7 - ADULT FAILURE TO THRIVE (5) Functional quadriplegia Code(s): R53.2 - FUNCTIONAL QUADRIPLEGIA (6) HLD (hyperlipidemia) Code(s): E78.5 - HYPERLIPIDEMIA, UNSPECIFIED (7) HTN (hypertension) Code(s): I10 - ESSENTIAL (PRIMARY) HYPERTENSION Assessment/Plan Sepsis Lactic Acidosis Cdiff colitis dementia h/o CVA HTN Hyperlipidemia Seizure Disorder continue abx continue fluids toerating GT feeds, add free water overall condition guarded will follow iv fluids
[2018-03-01] MEDS: DAPTOMYCIN 400 MG in SODIUM CHLORIDE 50 ML IVPB SCH (13:54)
--- NOTE | 2018-03-01 15:23 | PN ---
Progress Note, Physician History of Present Illness: pulmonary more alert,responds to questions,no distress - Current Medication List Current Medications: Active Medications Acetaminophen (Tylenol Oral Solution -) 650 mg GT Q6H PRN PRN Reason: FEVER Last Admin: 02/26/18 23:45 Dose: 650 mg Albuterol/Ipratropium (Duoneb -) 1 amp NEB RQID [facility] Last Admin: 03/01/18 11:44 Dose: 1 amp Amino Acids (Prosource No Carb Liquid Pkt) 30 ml GT BIDWM [facility] Last Admin: 03/01/18 08:54 Dose: 30 ml Aspirin (Asa -) 81 mg GT DAILY [facility] Last Admin: 03/01/18 10:27 Dose: 81 mg Enoxaparin Sodium (Lovenox -) 40 mg SQ DAILY [facility] Last Admin: 03/01/18 11:24 Dose: Not Given Sodium Chloride (Normal Saline -) 1,000 mls @ 100 mls/hr IV ASDIR [facility] Last Admin: 03/01/18 10:43 Dose: 100 mls/hr Piperacillin Sod/Tazobactam (Sod 3.375 gm/ Dextrose) 50 mls @ 100 mls/hr IVPB Q8H-IV [facility]; Protocol Last Admin: 03/01/18 10:29 Dose: 100 mls/hr Daptomycin 400 mg/ Sodium (Chloride) 50 mls @ 100 mls/hr IVPB DAILY@1300 [facility] Last Admin: 03/01/18 13:54 Dose: 100 mls/hr Lacosamide (Vimpat Liquid -) 200 mg GT BID [facility] Last Admin: 03/01/18 10:28 Dose: 200 mg Levetiracetam (Keppra Oral Solution -) 1,000 mg GT BID [facility] Last Admin: 03/01/18 10:29 Dose: 1,000 mg Metoprolol Tartrate (Lopressor -) 12.5 mg PEG BID [facility] Valproate Sodium (Depakene -) 1,250 mg GT BID [facility] Last Admin: 03/01/18 10:26 Dose: 1,250 mg Vancomycin HCl (Vancomycin Oral Solution) 250 mg GT Q6HPO [facility] Last Admin: 03/01/18 11:41 Dose: 250 mg - Objective Vital Signs: Vital Signs Temperature 97.5 F L 03/01/18 14:00 Pulse Rate 90 03/01/18 14:00 Respiratory Rate 20 08/01/18 14:00 Blood Pressure 113/59 03/01/18 14:00 O2 Sat by Pulse Oximetry (%) 96 03/01/18 09:00 Constitutional: Yes: Well Nourished, Calm Eyes: Yes: WNL HENT: Yes: WNL Neck: Yes: WNL Cardiovascular: Yes: Regular Rate and Rhythm, S1, S2 Respiratory: Yes: Diminished Gastrointestinal: Yes: Normal Bowel Sounds, Soft Extremities: Yes: WNL Edema: No Labs: CBC, BMP 03/01/18 06:00 03/01/18 06:00 INR, PTT INR 1.19 (0.82-1.09) H 02/26/18 16:24 Assessment/Plan A/P Polymicrobial Bacteremia C Diff Colitis Severe Sepsis Lactic Acidosis r/o Pneumonia h/o CVA HTN Hyperlipidemia Seizure Disorder - antibiotics - IVF - aspiration precautions - O2 to keep SpO2 >90% - DVT prophylaxis Problem List - Problems (1) Bacteremia Code(s): R78.81 - BACTEREMIA (2) Severe sepsis Code(s): A41.9 - SEPSIS, UNSPECIFIED ORGANISM; R65.20 - SEVERE SEPSIS WITHOUT SEPTIC SHOCK (3) Lactic acidosis Code(s): E87.2 - ACIDOSIS (4) Failure to thrive in adult Code(s): R62.7 - ADULT FAILURE TO THRIVE (5) Functional quadriplegia Code(s): R53.2 - FUNCTIONAL QUADRIPLEGIA (6) HLD (hyperlipidemia) Code(s): E78.5 - HYPERLIPIDEMIA, UNSPECIFIED (7) HTN (hypertension) Code(s): I10 - ESSENTIAL (PRIMARY) HYPERTENSION
[2018-03-01] MEDS ORDERED: POTASSIUM CHLORIDE ORAL LIQUID 20 MEQ/15 ML GT ONE (19:30)
[2018-03-01] MEDS: POTASSIUM CHLORIDE 20 MEQ in SODIUM CHLORIDE 1,000 ML IVPB SCH (21:44)
[2018-03-01] MEDS: METOPROLOL TARTRATE 25 MG TABLET (FP) PEG SCH (21:45)
[2018-03-02] MEDS ORDERED: PIPERACILLIN/TAZOBACTAM 3.375 GM VIAL IVPB ONE ×3 (01:30→17:34)
[2018-03-02] MEDS ORDERED: DEXTROSE 5%-WATER - 50 ML IVPB ONE ×3 (01:31→17:34)
[2018-03-02] MEDS: PIPERACILLIN/TAZOB 3.375 GM 3.375 GM in DEXTROSE 5%-WATER - 50 ML IVPB SCH ×3 (02:12→17:52)
[2018-03-02] MEDS: POTASSIUM CHLORIDE 20 MEQ in SODIUM CHLORIDE 1,000 ML IVPB SCH ×3 (05:47→22:55)
[2018-03-02] MEDS: VANCOMYCIN 250 MG/5 ML ORAL SOLUTION GT SCH ×4 (05:47→23:00)
[2018-03-02 07:22] LABS: HEMATOCRIT 29.6 % (32.4-45.2); MCH 29.5 pg (25.7-33.7); MCHC 33.7 g/dl (32.0-36.0); MEAN CELL VOLUME 87.6 fl (80-96); MEAN PLT VOLUME 10.4 fl (7.5-11.1); PLATELET COUNT 115 K/MM3 (134-434); RBC 3.38 M/mm3 (3.60-5.2); RDW 18.9 % (11.6-15.6); WHITE BLOOD COUNT 7.7 K/mm3 (4.0-10.0)
[2018-03-02] MEDS: ALBUTEROL SO4 2.5/IPRATROPIUM 0.5 INH SOL 3 ML VIAL.NEB. NEB SCH ×4 (07:30→20:34)
[2018-03-02 08:03] LABS: ANION GAP 8 (8-16); BLOOD UREA NITROGEN 6 mg/dL (7-18); CALCIUM 8.7 mg/dL (8.5-10.1); CHLORIDE 124 mmol/L (98-107); CO2 24 mmol/L (21-32); CREATININE 0.5 mg/dL (0.55-1.02); GLUCOSE,RANDOM 109 mg/dL (74-106); POTASSIUM 3.1 mmol/L (3.5-5.1); SODIUM 156 mmol/L (136-145)
[2018-03-02] MEDS ORDERED: PT OWN MED DRAWER 7, Y5N ONE (10:05)
--- NOTE | 2018-03-02 10:23 | PN ---
Progress Note (short form) - Note Progress Note: PULMONARY Pt nonverbal. No fevers recorded. Vital Signs Period Temp Pulse Resp BP Sys/Levine Pulse Ox Last 24 Hr 97.5 F-98.6 F 74-90 18-22 103-121/58-64 96 Gen: more awake Heart: RRR Lung: decreased breath sounds at the bases Abd: softly distended, nontender Ext: no edema CBC, BMP 03/02/18 06:00 03/02/18 06:00 Active Medications Acetaminophen (Tylenol Oral Solution -) 650 mg GT Q6H PRN PRN Reason: FEVER Last Admin: 02/26/18 23:45 Dose: 650 mg Albuterol/Ipratropium (Duoneb -) 1 amp NEB RQID [facility] Last Admin: 03/02/18 07:30 Dose: 1 amp Amino Acids (Prosource No Carb Liquid Pkt) 30 ml GT BIDWM [facility] Last Admin: 03/01/18 17:45 Dose: 30 ml Aspirin (Asa -) 81 mg GT DAILY [facility] Last Admin: 03/01/18 10:27 Dose: 81 mg Enoxaparin Sodium (Lovenox -) 40 mg SQ DAILY [facility] Last Admin: 03/01/18 11:24 Dose: Not Given Piperacillin Sod/Tazobactam (Sod 3.375 gm/ Dextrose) 50 mls @ 100 mls/hr IVPB Q8H-IV [facility]; Protocol Last Admin: 03/02/18 02:12 Dose: 100 mls/hr Daptomycin 400 mg/ Sodium (Chloride) 50 mls @ 100 mls/hr IVPB DAILY@1300 [facility] Last Admin: 03/01/18 13:54 Dose: 100 mls/hr Potassium Chloride 20 meq/ (Sodium Chloride) 1,010 mls @ 101 mls/hr IVPB Q10H [facility] Last Admin: 03/02/18 05:47 Dose: Not Given Lacosamide (Vimpat Liquid -) 200 mg GT BID [facility] Last Admin: 03/01/18 21:46 Dose: 200 mg Levetiracetam (Keppra Oral Solution -) 1,000 mg GT BID [facility] Last Admin: 03/01/18 21:45 Dose: 1,000 mg Metoprolol Tartrate (Lopressor -) 12.5 mg PEG BID [facility] Last Admin: 03/01/18 21:45 Dose: 12.5 mg Valproate Sodium (Depakene -) 1,250 mg GT BID [facility] Last Admin: 03/01/18 21:46 Dose: 1,250 mg Vancomycin HCl (Vancomycin Oral Solution) 250 mg GT Q6HPO [facility] Last Admin: 03/02/18 05:47 Dose: 250 mg A/P Polymicrobial Bacteremia C Diff Colitis Severe Sepsis Lactic Acidosis r/o Pneumonia h/o CVA HTN Hyperlipidemia Seizure Disorder - broad spectrum antibiotics - replete lytes - aspiration precautions - O2 to keep SpO2 >90% - DVT prophylaxis Problem List - Problems (1) Bacteremia Code(s): R78.81 - BACTEREMIA (2) Severe sepsis Code(s): A41.9 - SEPSIS, UNSPECIFIED ORGANISM; R65.20 - SEVERE SEPSIS WITHOUT SEPTIC SHOCK (3) Lactic acidosis Code(s): E87.2 - ACIDOSIS (4) Failure to thrive in adult Code(s): R62.7 - ADULT FAILURE TO THRIVE (5) Functional quadriplegia Code(s): R53.2 - FUNCTIONAL QUADRIPLEGIA (6) HLD (hyperlipidemia) Code(s): E78.5 - HYPERLIPIDEMIA, UNSPECIFIED (7) HTN (hypertension) Code(s): I10 - ESSENTIAL (PRIMARY) HYPERTENSION
[2018-03-02] MEDS: AMINO ACIDS/PROTEIN HYDROLYS 30 ML LIQUID.PKT GT SCH ×2 (10:40→17:52)
[2018-03-02] MEDS: ASPIRIN 81 MG CHEWABLE TABLETS GT SCH (10:40)
[2018-03-02] MEDS: VALPROATE SODIUM 250 MG/5 ML UNIT DOSE CUP GT SCH ×2 (10:41→22:58)
[2018-03-02] MEDS: METOPROLOL TARTRATE 25 MG TABLET (FP) PEG SCH ×2 (10:41→22:58)
[2018-03-02] MEDS: ENOXAPARIN NA (PORCINE) 40 MG/0.4 ML DISP.SYRIN SQ SCH (10:43)
[2018-03-02] MEDS: levETIRAcetam 500 MG/5 ML ORAL SOLUTION (UNIT-DOSE CUPS) GT SCH ×2 (10:43→22:57)
[2018-03-02] MEDS: Lacosamide 50 MG/5 ML ORAL SOLUTION UNIT CUPS GT SCH ×2 (10:44→22:59)
--- NOTE | 2018-03-02 11:11 | PN ---
Progress Note (short form) - Note Progress Note: patient seen and examined today Chart reviewed Comfortable having loose bowel movements----I also noticed that patient getting feeding at 70 cc--- which is relatively high Sodium also going up--- started on free water Patient awake answers simple questions No distress Afebrile Vital Signs Temp 97.7 F 03/02/18 05:00 Pulse 85 03/02/18 05:00 Resp 20 03/02/18 05:00 BP 109/58 03/02/18 05:00 Pulse Ox 96 03/01/18 21:00 Intake & Output 03/01/18 03/01/18 03/02/18 11:59 23:59 11:59 Intake Total 1225 1410 2415 Balance 1225 1410 2415 Intake: IV 080 584 9049 Normal Saline - 1,000 ml 347 495 2886 @ 100 mls/hr IV ASDIR COUNT [facility] Rx#:[id number] IVPB 100 50 Tube Feeding 315 510 770 Tube Irrigant 210 495 Other: Voiding Method Incontinent Incontinent Incontinent # Unmeasured Voids Handy 1 1 Void 1 Bowel Movement Yes Yes Yes Active Medications Acetaminophen (Tylenol Oral Solution -) 650 mg GT Q6H PRN PRN Reason: FEVER Last Admin: 02/26/18 23:45 Dose: 650 mg Albuterol/Ipratropium (Duoneb -) 1 amp NEB RQID [facility] Last Admin: 03/02/18 07:30 Dose: 1 amp Amino Acids (Prosource No Carb Liquid Pkt) 30 ml GT BIDWM [facility] Last Admin: 03/02/18 10:40 Dose: 30 ml Aspirin (Asa -) 81 mg GT DAILY [facility] Last Admin: 03/02/18 10:40 Dose: 81 mg Enoxaparin Sodium (Lovenox -) 40 mg SQ DAILY [facility] Last Admin: 03/02/18 10:43 Dose: 40 mg Piperacillin Sod/Tazobactam (Sod 3.375 gm/ Dextrose) 50 mls @ 100 mls/hr IVPB Q8H-IV [facility]; Protocol Last Admin: 03/02/18 10:44 Dose: 100 mls/hr Daptomycin 400 mg/ Sodium (Chloride) 50 mls @ 100 mls/hr IVPB DAILY@1300 [facility] Last Admin: 03/01/18 13:54 Dose: 100 mls/hr Potassium Chloride 20 meq/ (Sodium Chloride) 1,010 mls @ 101 mls/hr IVPB Q10H [facility] Last Admin: 03/02/18 08:15 Dose: 101 mls/hr Lacosamide (Vimpat Liquid -) 200 mg GT BID [facility] Last Admin: 03/02/18 10:44 Dose: 200 mg Levetiracetam (Keppra Oral Solution -) 1,000 mg GT BID [facility] Last Admin: 03/02/18 10:43 Dose: 1,000 mg Metoprolol Tartrate (Lopressor -) 12.5 mg PEG BID [facility] Last Admin: 03/02/18 10:41 Dose: 12.5 mg Valproate Sodium (Depakene -) 1,250 mg GT BID [facility] Last Admin: 03/02/18 10:41 Dose: 1,250 mg Vancomycin HCl (Vancomycin Oral Solution) 250 mg GT Q6HPO [facility] Last Admin: 03/02/18 05:47 Dose: 250 mg CBC, BMP 03/02/18 06:00 03/02/18 06:00 Microbiology 02/26/18 16:24 Blood Culture - Preliminary Blood - Peripheral Venous Anaero Spore Forming Gp Vibha Anaerobic Gram Neg Bacilli Enterococcus Raffinosus Enterococcus Faecalis Group D Strep Or Entero Coccus#3 02/28/18 08:00 Blood Culture - Preliminary Blood - Peripheral Venous NO GROWTH OBTAINED AFTER 48 HOURS, INCUBATION TO CONTINUE FOR 3 DAYS. 02/28/18 07:00 Blood Culture - Preliminary Blood - Peripheral Venous NO GROWTH OBTAINED AFTER 48 HOURS, INCUBATION TO CONTINUE FOR 3 DAYS. 02/26/18 16:24 Blood Culture - Final Blood - Peripheral Venous Enterococcus Faecium Clostridium Innocuum Physical Exam Constitutional: Yes: awake/ comfortable. Eyes: Yes: Conjunctiva Clear HEENT: Yes: throat clear Neck: Yes: Supple, Trachea Midline. No jvd. Cardiovascular: Yes: S1, S2 rrr. Respiratory: Yes: Diminished (decreased breath sounds at the bases) Gastrointestinal: Yes: Normal Bowel Sounds, Soft. No: Tenderness.Peg+ extremities--- no edema. neuro--awake. Problem List - Problems (1) Bacteremia Code(s): R78.81 - BACTEREMIA (2) Severe sepsis Code(s): A41.9 - SEPSIS, UNSPECIFIED ORGANISM; R65.20 - SEVERE SEPSIS WITHOUT SEPTIC SHOCK (3) Lactic acidosis Code(s): E87.2 - ACIDOSIS (4) Failure to thrive in adult Code(s): R62.7 - ADULT FAILURE TO THRIVE (5) Functional quadriplegia Code(s): R53.2 - FUNCTIONAL QUADRIPLEGIA (6) HLD (hyperlipidemia) Code(s): E78.5 - HYPERLIPIDEMIA, UNSPECIFIED (7) HTN (hypertension) Code(s): I10 - ESSENTIAL (PRIMARY) HYPERTENSION Assessment/Plan Sepsis Lactic Acidosis Cdiff colitis dementia h/o CVA HTN Hyperlipidemia Seizure Disorder continue abx continue fluids decrease feeding rate overall condition improved but guarded monitor labs Will follow discussed with nursing staff also
[2018-03-02] MEDS: DAPTOMYCIN 400 MG in SODIUM CHLORIDE 50 ML IVPB SCH (15:40)
--- NOTE | 2018-03-02 17:25 | PN ---
Progress Note, Physician History of Present Illness: stable patient much more conversant stable - Current Medication List Current Medications: Active Medications Acetaminophen (Tylenol Oral Solution -) 650 mg GT Q6H PRN PRN Reason: FEVER Last Admin: 02/26/18 23:45 Dose: 650 mg Albuterol/Ipratropium (Duoneb -) 1 amp NEB RQID [facility] Last Admin: 03/02/18 16:19 Dose: 1 amp Amino Acids (Prosource No Carb Liquid Pkt) 30 ml GT BIDWM [facility] Last Admin: 03/02/18 10:40 Dose: 30 ml Aspirin (Asa -) 81 mg GT DAILY [facility] Last Admin: 03/02/18 10:40 Dose: 81 mg Enoxaparin Sodium (Lovenox -) 40 mg SQ DAILY [facility] Last Admin: 03/02/18 10:43 Dose: 40 mg Piperacillin Sod/Tazobactam (Sod 3.375 gm/ Dextrose) 50 mls @ 100 mls/hr IVPB Q8H-IV [facility]; Protocol Last Admin: 03/02/18 10:44 Dose: 100 mls/hr Daptomycin 400 mg/ Sodium (Chloride) 50 mls @ 100 mls/hr IVPB DAILY@1300 [facility] Last Admin: 03/02/18 15:40 Dose: 100 mls/hr Potassium Chloride 20 meq/ (Sodium Chloride) 1,010 mls @ 101 mls/hr IVPB Q10H [facility] Last Admin: 03/02/18 08:15 Dose: 101 mls/hr Lacosamide (Vimpat Liquid -) 200 mg GT BID [facility] Last Admin: 03/02/18 10:44 Dose: 200 mg Levetiracetam (Keppra Oral Solution -) 1,000 mg GT BID [facility] Last Admin: 03/02/18 10:43 Dose: 1,000 mg Metoprolol Tartrate (Lopressor -) 12.5 mg PEG BID [facility] Last Admin: 03/02/18 10:41 Dose: 12.5 mg Valproate Sodium (Depakene -) 1,250 mg GT BID [facility] Last Admin: 03/02/18 10:41 Dose: 1,250 mg Vancomycin HCl (Vancomycin Oral Solution) 250 mg GT Q6HPO [facility] Last Admin: 03/02/18 12:00 Dose: 250 mg - Objective Vital Signs: Vital Signs Temperature 97.9 F 03/02/18 14:14 Pulse Rate 76 03/02/18 14:14 Respiratory Rate 20 03/02/18 14:14 Blood Pressure 149/56 03/02/18 14:14 O2 Sat by Pulse Oximetry (%) 97 03/02/18 10:30 Constitutional: Yes: No Distress, Calm Cardiovascular: Yes: S1, S2 Respiratory: Yes: Regular, CTA Bilaterally Gastrointestinal: Yes: Normal Bowel Sounds, Soft Genitourinary: Yes: Handy Present Musculoskeletal: Yes: WNL Extremities: Yes: WNL Neurological: Yes: Alert Labs: CBC, BMP 03/02/18 06:00 03/02/18 06:00 INR, PTT INR 1.19 (0.82-1.09) H 02/26/18 16:24 Assessment/Plan patient coming in with sepsis and bacteremia Problem List - Problems (1) Bacteremia Code(s): R78.81 - BACTEREMIA (2) Severe sepsis Code(s): A41.9 - SEPSIS, UNSPECIFIED ORGANISM; R65.20 - SEVERE SEPSIS WITHOUT SEPTIC SHOCK (3) Lactic acidosis Code(s): E87.2 - ACIDOSIS (4) Failure to thrive in adult Code(s): R62.7 - ADULT FAILURE TO THRIVE (5) Functional quadriplegia Code(s): R53.2 - FUNCTIONAL QUADRIPLEGIA (6) HLD (hyperlipidemia) Code(s): E78.5 - HYPERLIPIDEMIA, UNSPECIFIED (7) HTN (hypertension) Code(s): I10 - ESSENTIAL (PRIMARY) HYPERTENSION cdiff Assessment/Plan continue current mgmt repeat blood cx negative so far stable continue current mgmt
[2018-03-03] MEDS ORDERED: PIPERACILLIN/TAZOBACTAM 3.375 GM VIAL IVPB ONE ×3 (00:22→17:06)
[2018-03-03] MEDS ORDERED: DEXTROSE 5%-WATER - 50 ML IVPB ONE ×3 (00:22→17:06)
[2018-03-03] MEDS: POTASSIUM CHLORIDE 20 MEQ in SODIUM CHLORIDE 1,000 ML IVPB SCH ×2 (01:22→10:30)
[2018-03-03] MEDS: PIPERACILLIN/TAZOB 3.375 GM 3.375 GM in DEXTROSE 5%-WATER - 50 ML IVPB SCH ×3 (01:22→18:04)
[2018-03-03] MEDS: VANCOMYCIN 250 MG/5 ML ORAL SOLUTION GT SCH ×4 (05:12→23:27)
[2018-03-03 07:24] LABS: BASO % 0.4 % (0-2.0); EOS % 2.3 % (0-4.5); HEMATOCRIT 26.2 % (32.4-45.2); HEMOGLOBIN 9.4 GM/dL (10.7-15.3); LYMPH % 41.9 % (8-40); MCH 31.8 pg (25.7-33.7); MCHC 35.9 g/dl (32.0-36.0); MEAN CELL VOLUME 88.6 fl (80-96); MEAN PLT VOLUME 9.6 fl (7.5-11.1); MONO % 8.5 % (3.8-10.2); NEUT % 46.9 % (42.8-82.8); PLATELET COUNT 132 K/MM3 (134-434); RBC 2.96 M/mm3 (3.60-5.2); RDW 18.7 % (11.6-15.6); WHITE BLOOD COUNT 6.4 K/mm3 (4.0-10.0)
[2018-03-03 07:45] LABS: ALBUMIN 1.9 g/dl (3.4-5.0); ANION GAP 7 (8-16); BLOOD UREA NITROGEN 6 mg/dL (7-18); CALCIUM 8.3 mg/dL (8.5-10.1); CHLORIDE 124 mmol/L (98-107); CO2 26 mmol/L (21-32); CREATININE 0.4 mg/dL (0.55-1.02); GLUCOSE,RANDOM 91 mg/dL (74-106); POTASSIUM 3.1 mmol/L (3.5-5.1); SGOT/AST 8 U/L (15-37); SGPT/ALT 9 U/L (12-78); SODIUM 157 mmol/L (136-145)
[2018-03-03 07:46] LABS: ALK PHOS 49 U/L (45-117); BILIRUBIN,TOTAL 0.1 mg/dL (0.2-1.0); TOT PROT 5.3 g/dl (6.4-8.2)
[2018-03-03] MEDS: ALBUTEROL SO4 2.5/IPRATROPIUM 0.5 INH SOL 3 ML VIAL.NEB. NEB SCH ×4 (08:12→21:10)
[2018-03-03] MEDS ORDERED: POTASSIUM CHLORIDE ORAL LIQUID 20 MEQ/15 ML PO ONE (09:21)
--- NOTE | 2018-03-03 09:49 | PN ---
Progress Note (short form) - Note Progress Note: patient seen and examined. Comfortable Awake denies pain Communicate slowly answers simple questions Afebrile diarrhea improved Sodium--- continue to rise discussed with nursing staff--- Not getting enough free water Vital Signs Temp 98.4 F 03/03/18 05:00 Pulse 78 03/03/18 05:00 Resp 18 03/03/18 05:00 BP 120/66 03/03/18 05:00 Pulse Ox 96 03/02/18 21:00 Intake & Output 03/02/18 03/02/18 03/03/18 11:59 23:59 11:59 Intake Total 2415 2260 1890 Balance 2415 2260 1890 Intake: IV 1100 1060 1100 Normal Saline - 1,000 ml 1100 1060 @ 100 mls/hr IV ASDIR [facility] Rx#:[id number] SL 1100 IVPB 50 150 50 Tube Feeding 770 550 440 Tube Irrigant 495 500 300 Other: Voiding Method Urinal Diaper # Unmeasured Voids Handy 1 Void 1 1 1 Bowel Movement Yes Yes # Bowel Movements 2 Body Mass Index (BMI) 24.5 Active Medications Acetaminophen (Tylenol Oral Solution -) 650 mg GT Q6H PRN PRN Reason: FEVER Last Admin: 02/26/18 23:45 Dose: 650 mg Albuterol/Ipratropium (Duoneb -) 1 amp NEB RQID [facility] Last Admin: 03/03/18 08:12 Dose: 1 amp Amino Acids (Prosource No Carb Liquid Pkt) 30 ml GT BIDWM [facility] Last Admin: 03/02/18 17:52 Dose: 30 ml Aspirin (Asa -) 81 mg GT DAILY [facility] Last Admin: 03/02/18 10:40 Dose: 81 mg Enoxaparin Sodium (Lovenox -) 40 mg SQ DAILY [facility] Last Admin: 03/02/18 10:43 Dose: 40 mg Piperacillin Sod/Tazobactam (Sod 3.375 gm/ Dextrose) 50 mls @ 100 mls/hr IVPB Q8H-IV [facility]; Protocol Last Admin: 03/03/18 01:22 Dose: 100 mls/hr Daptomycin 400 mg/ Sodium (Chloride) 50 mls @ 100 mls/hr IVPB DAILY@1300 [facility] Last Admin: 03/02/18 15:40 Dose: 100 mls/hr Potassium Chloride 20 meq/ (Sodium Chloride) 1,010 mls @ 101 mls/hr IVPB Q10H [facility] Last Admin: 03/03/18 01:22 Dose: Not Given Lacosamide (Vimpat Liquid -) 200 mg GT BID [facility] Last Admin: 03/02/18 22:59 Dose: 200 mg Levetiracetam (Keppra Oral Solution -) 1,000 mg GT BID [facility] Last Admin: 03/02/18 22:57 Dose: 1,000 mg Metoprolol Tartrate (Lopressor -) 12.5 mg PEG BID [facility] Last Admin: 03/02/18 22:58 Dose: 12.5 mg Valproate Sodium (Depakene -) 1,250 mg GT BID [facility] Last Admin: 03/02/18 22:58 Dose: 1,250 mg Vancomycin HCl (Vancomycin Oral Solution) 250 mg GT Q6HPO [facility] Last Admin: 03/03/18 05:12 Dose: 250 mg CBC, BMP 03/03/18 06:00 03/03/18 06:00 Microbiology 02/28/18 08:00 Blood Culture - Preliminary Blood - Peripheral Venous NO GROWTH OBTAINED AFTER 72 HOURS, INCUBATION TO CONTINUE FOR 2 DAYS. 02/28/18 07:00 Blood Culture - Preliminary Blood - Peripheral Venous NO GROWTH OBTAINED AFTER 72 HOURS, INCUBATION TO CONTINUE FOR 2 DAYS. 02/26/18 16:24 Blood Culture - Preliminary Blood - Peripheral Venous Clostridium Perfringens Anaerobic Gram Neg Bacilli Enterococcus Raffinosus Enterococcus Faecalis Enterococcus Raffinosus#2 Physical Exam Constitutional: Yes: awake/ comfortable. Eyes: Yes: Conjunctiva Clear HEENT: Yes: throat clear Neck: Yes: Supple, Trachea Midline. No jvd. Cardiovascular: Yes: S1, S2 rrr. Respiratory: Yes: Diminished (decreased breath sounds at the bases) Gastrointestinal: Yes: Normal Bowel Sounds, Soft. No: Tenderness.Peg+ extremities--- no edema. neuro--awake. Problem List - Problems (1) Bacteremia Code(s): R78.81 - BACTEREMIA (2) Severe sepsis Code(s): A41.9 - SEPSIS, UNSPECIFIED ORGANISM; R65.20 - SEVERE SEPSIS WITHOUT SEPTIC SHOCK (3) Lactic acidosis Code(s): E87.2 - ACIDOSIS (4) Failure to thrive in adult Code(s): R62.7 - ADULT FAILURE TO THRIVE (5) Functional quadriplegia Code(s): R53.2 - FUNCTIONAL QUADRIPLEGIA (6) HLD (hyperlipidemia) Code(s): E78.5 - HYPERLIPIDEMIA, UNSPECIFIED (7) HTN (hypertension) Code(s): I10 - ESSENTIAL (PRIMARY) HYPERTENSION Assessment/Plan Sepsis Lactic Acidosis Cdiff colitis dementia h/o CVA HTN Hyperlipidemia Seizure Disorder continue abx continue fluids---add free water follow-up labs Continue present care physical therapy Discussed with nursing Staff Will follow
[2018-03-03] MEDS ORDERED: PT OWN MED DRAWER 7, Y5N ONE ×2 (10:05→20:28)
[2018-03-03] MEDS: VALPROATE SODIUM 250 MG/5 ML UNIT DOSE CUP GT SCH ×2 (10:24→21:45)
[2018-03-03] MEDS: AMINO ACIDS/PROTEIN HYDROLYS 30 ML LIQUID.PKT GT SCH ×2 (10:25→18:04)
[2018-03-03] MEDS: ASPIRIN 81 MG CHEWABLE TABLETS GT SCH (10:25)
[2018-03-03] MEDS: Lacosamide 50 MG/5 ML ORAL SOLUTION UNIT CUPS GT SCH ×2 (10:25→21:44)
[2018-03-03] MEDS: levETIRAcetam 500 MG/5 ML ORAL SOLUTION (UNIT-DOSE CUPS) GT SCH ×2 (10:25→21:45)
[2018-03-03] MEDS: METOPROLOL TARTRATE 25 MG TABLET (FP) PEG SCH ×2 (10:25→21:41)
[2018-03-03] MEDS: ENOXAPARIN NA (PORCINE) 40 MG/0.4 ML DISP.SYRIN SQ SCH (10:26)
[2018-03-03] MEDS ORDERED: SODIUM CHLORIDE 0.9%/KCL 20 MEQ/1,000 ML INFUS.BAG IV SCH (11:17)
--- NOTE | 2018-03-03 11:24 | PN ---
Progress Note, Physician History of Present Illness: stable no new issues - Current Medication List Current Medications: Active Medications Acetaminophen (Tylenol Oral Solution -) 650 mg GT Q6H PRN PRN Reason: FEVER Last Admin: 02/26/18 23:45 Dose: 650 mg Albuterol/Ipratropium (Duoneb -) 1 amp NEB RQID [facility] Last Admin: 03/03/18 08:12 Dose: 1 amp Amino Acids (Prosource No Carb Liquid Pkt) 30 ml GT BIDWM [facility] Last Admin: 03/03/18 10:25 Dose: 30 ml Aspirin (Asa -) 81 mg GT DAILY [facility] Last Admin: 03/03/18 10:25 Dose: 81 mg Enoxaparin Sodium (Lovenox -) 40 mg SQ DAILY [facility] Last Admin: 03/03/18 10:26 Dose: 40 mg Piperacillin Sod/Tazobactam (Sod 3.375 gm/ Dextrose) 50 mls @ 100 mls/hr IVPB Q8H-IV [facility]; Protocol Last Admin: 03/03/18 10:27 Dose: 100 mls/hr Daptomycin 400 mg/ Sodium (Chloride) 50 mls @ 100 mls/hr IVPB DAILY@1300 [facility] Last Admin: 03/02/18 15:40 Dose: 100 mls/hr Potassium Chloride/Sodium Chloride (Ns+20 Meq Kcl -) 20 meq in 1,000 mls @ 101 mls/hr IV ASDIR [facility] Lacosamide (Vimpat Liquid -) 200 mg GT BID [facility] Last Admin: 03/03/18 10:25 Dose: 200 mg Levetiracetam (Keppra Oral Solution -) 1,000 mg GT BID [facility] Last Admin: 03/03/18 10:25 Dose: 1,000 mg Metoprolol Tartrate (Lopressor -) 12.5 mg PEG BID [facility] Last Admin: 03/03/18 10:25 Dose: 12.5 mg Valproate Sodium (Depakene -) 1,250 mg GT BID [facility] Last Admin: 03/03/18 10:24 Dose: 1,250 mg Vancomycin HCl (Vancomycin Oral Solution) 250 mg GT Q6HPO [facility] Last Admin: 03/03/18 05:12 Dose: 250 mg - Objective Vital Signs: Vital Signs Temperature 98.4 F 03/03/18 10:17 Pulse Rate 86 03/03/18 10:17 Respiratory Rate 18 03/03/18 10:17 Blood Pressure 117/68 03/03/18 10:17 O2 Sat by Pulse Oximetry (%) 96 03/02/18 21:00 Constitutional: Yes: No Distress, Calm Cardiovascular: Yes: S1, S2 Respiratory: Yes: Regular, CTA Bilaterally Gastrointestinal: Yes: Normal Bowel Sounds, Soft Genitourinary: Yes: Handy Present Musculoskeletal: Yes: WNL Extremities: Yes: WNL Neurological: Yes: Alert Psychiatric: Yes: Alert Labs: CBC, BMP 03/03/18 06:00 03/03/18 06:00 INR, PTT INR 1.19 (0.82-1.09) H 02/26/18 16:24 Assessment/Plan patient coming in with sepsis and bacteremia Problem List - Problems (1) Bacteremia Code(s): R78.81 - BACTEREMIA (2) Severe sepsis Code(s): A41.9 - SEPSIS, UNSPECIFIED ORGANISM; R65.20 - SEVERE SEPSIS WITHOUT SEPTIC SHOCK (3) Lactic acidosis Code(s): E87.2 - ACIDOSIS (4) Failure to thrive in adult Code(s): R62.7 - ADULT FAILURE TO THRIVE (5) Functional quadriplegia Code(s): R53.2 - FUNCTIONAL QUADRIPLEGIA (6) HLD (hyperlipidemia) Code(s): E78.5 - HYPERLIPIDEMIA, UNSPECIFIED (7) HTN (hypertension) Code(s): I10 - ESSENTIAL (PRIMARY) HYPERTENSION cdiff Assessment/Plan continue current mgmt repeat blood cx negative so far stable continue current mgmt
--- NOTE | 2018-03-03 13:18 | PN ---
Progress Note (short form) - Note Progress Note: No acute events overnight. Nonverbal. VSS. Intake & Output 02/28/18 03/01/18 03/02/18 03/03/18 23:59 23:59 23:59 23:59 Intake Total 2380 2635 4675 1890 Balance 2380 2635 4675 1890 Weight 152 lb Last Vital Signs Temp Pulse Resp BP Pulse Ox 98.4 F 86 18 117/68 96 03/03/18 10:17 03/03/18 10:17 03/03/18 10:17 03/03/18 10:17 03/02/18 21:00 Active Medications Acetaminophen (Tylenol Oral Solution -) 650 mg GT Q6H PRN PRN Reason: FEVER Last Admin: 02/26/18 23:45 Dose: 650 mg Albuterol/Ipratropium (Duoneb -) 1 amp NEB RQID [facility] Last Admin: 03/03/18 12:03 Dose: 1 amp Amino Acids (Prosource No Carb Liquid Pkt) 30 ml GT BIDWM [facility] Last Admin: 03/03/18 10:25 Dose: 30 ml Aspirin (Asa -) 81 mg GT DAILY [facility] Last Admin: 03/03/18 10:25 Dose: 81 mg Enoxaparin Sodium (Lovenox -) 40 mg SQ DAILY [facility] Last Admin: 03/03/18 10:26 Dose: 40 mg Piperacillin Sod/Tazobactam (Sod 3.375 gm/ Dextrose) 50 mls @ 100 mls/hr IVPB Q8H-IV [facility]; Protocol Last Admin: 03/03/18 10:27 Dose: 100 mls/hr Daptomycin 400 mg/ Sodium (Chloride) 50 mls @ 100 mls/hr IVPB DAILY@1300 [facility] Last Admin: 03/02/18 15:40 Dose: 100 mls/hr Potassium Chloride/Sodium Chloride (Ns+20 Meq Kcl -) 20 meq in 1,000 mls @ 101 mls/hr IV ASDIR [facility] Lacosamide (Vimpat Liquid -) 200 mg GT BID [facility] Last Admin: 03/03/18 10:25 Dose: 200 mg Levetiracetam (Keppra Oral Solution -) 1,000 mg GT BID [facility] Last Admin: 03/03/18 10:25 Dose: 1,000 mg Metoprolol Tartrate (Lopressor -) 12.5 mg PEG BID [facility] Last Admin: 03/03/18 10:25 Dose: 12.5 mg Valproate Sodium (Depakene -) 1,250 mg GT BID [facility] Last Admin: 03/03/18 10:24 Dose: 1,250 mg Vancomycin HCl (Vancomycin Oral Solution) 250 mg GT Q6HPO [facility] Last Admin: 03/03/18 11:39 Dose: 250 mg Gen: NAD Heart: RRR Lung: decreased breath sounds at the bases Abd: softly distended, nontender Ext: no edema Laboratory Results - last 24 hr 02/26/18 03/03/18 03/03/18 16:30 06:00 06:00 WBC 6.4 RBC 2.96 L Hgb 9.4 L Hct 26.2 L MCV 88.6 MCH 31.8 MCHC 35.9 RDW 18.7 H Plt Count 132 L MPV 9.6 Absolute Neuts (auto) 3.0 Neutrophils % 46.9 D Lymphocytes % 41.9 H D Monocytes % 8.5 D Eosinophils % 2.3 D Basophils % 0.4 Nucleated RBC % 0 VBG pH 7.32 POC VBG pCO2 56.6 H D POC VBG pO2 21.6 L D Mixed VBG HCO3 28.0 H Sodium 157 H Potassium 3.1 L Chloride 124 H Carbon Dioxide 26 Anion Gap 7 L BUN 6 L Creatinine 0.4 L Creat Clearance w eGFR > 60 Random Glucose 91 Calcium 8.3 L Total Bilirubin 0.1 L AST 8 L ALT 9 L Alkaline Phosphatase 49 Total Protein 5.3 L Albumin 1.9 L Problem List - Problems (1) Bacteremia Code(s): R78.81 - BACTEREMIA (2) Severe sepsis Code(s): A41.9 - SEPSIS, UNSPECIFIED ORGANISM; R65.20 - SEVERE SEPSIS WITHOUT SEPTIC SHOCK (3) Lactic acidosis Code(s): E87.2 - ACIDOSIS (4) Failure to thrive in adult Code(s): R62.7 - ADULT FAILURE TO THRIVE (5) Functional quadriplegia Code(s): R53.2 - FUNCTIONAL QUADRIPLEGIA (6) HLD (hyperlipidemia) Code(s): E78.5 - HYPERLIPIDEMIA, UNSPECIFIED (7) HTN (hypertension) Code(s): I10 - ESSENTIAL (PRIMARY) HYPERTENSION A/P Polymicrobial Bacteremia C Diff Colitis Severe Sepsis Lactic Acidosis r/o Pneumonia h/o CVA HTN Hyperlipidemia Seizure Disorder - ABX per ID - Aspiration precautions - O2 to keep SpO2 >90% - VTE prophylaxis Dr Early
[2018-03-03] MEDS: DAPTOMYCIN 400 MG in SODIUM CHLORIDE 50 ML IVPB SCH (14:02)
[2018-03-03] MEDS: SODIUM CHLORIDE 0.9%/KCL 20 MEQ/1,000 ML INFUS.BAG IV SCH (21:40)
[2018-03-04] MEDS ORDERED: PIPERACILLIN/TAZOBACTAM 3.375 GM VIAL IVPB ONE ×2 (01:18→11:00)
[2018-03-04] MEDS ORDERED: DEXTROSE 5%-WATER - 50 ML IVPB ONE ×2 (01:19→11:01)
[2018-03-04] MEDS: PIPERACILLIN/TAZOB 3.375 GM 3.375 GM in DEXTROSE 5%-WATER - 50 ML IVPB SCH ×2 (01:24→17:24)
[2018-03-04] MEDS: VANCOMYCIN 250 MG/5 ML ORAL SOLUTION GT SCH ×4 (05:25→23:03)
[2018-03-04] MEDS ORDERED: PT OWN MED DRAWER 7, Y5N ONE ×2 (10:58→20:16)
--- NOTE | 2018-03-04 11:06 | PN ---
Progress Note (short form) - Note Progress Note: patient seen and examined. Much more alert and awake engages in meaningful conversation Denies pain Comfortable Had 2 loose bowel movements today afebrile Vital Signs Temp 97.9 F 03/04/18 05:48 Pulse 78 03/04/18 05:48 Resp 18 03/04/18 05:48 BP 114/69 03/04/18 05:48 Pulse Ox 96 03/03/18 21:00 Intake & Output 03/03/18 03/03/18 03/04/18 11:59 23:59 11:59 Intake Total 1890 2460 2110 Balance 1890 2460 2110 Intake: IV 1100 1000 1150 NS+20 MEQ KCL - 20 meq In 1000 1150 1,000 ml @ 101 mls/hr IV ASDIR [facility] Rx#: [id number] SL 1100 IVPB 50 150 50 Oral 0 Tube Feeding 440 430 480 Tube Irrigant 300 880 430 Other: Voiding Method Incontinent Incontinent Incontinent # Unmeasured Voids Void 1 1 Bowel Movement Yes: 2 Active Medications Acetaminophen (Tylenol Oral Solution -) 650 mg GT Q6H PRN PRN Reason: FEVER Last Admin: 02/26/18 23:45 Dose: 650 mg Amino Acids (Prosource No Carb Liquid Pkt) 30 ml GT BIDWM [facility] Last Admin: 03/03/18 18:04 Dose: 30 ml Aspirin (Asa -) 81 mg GT DAILY [facility] Last Admin: 03/03/18 10:25 Dose: 81 mg Enoxaparin Sodium (Lovenox -) 40 mg SQ DAILY [facility] Last Admin: 03/03/18 10:26 Dose: 40 mg Piperacillin Sod/Tazobactam (Sod 3.375 gm/ Dextrose) 50 mls @ 100 mls/hr IVPB Q8H-IV [facility]; Protocol Last Admin: 03/04/18 01:24 Dose: 100 mls/hr Daptomycin 400 mg/ Sodium (Chloride) 50 mls @ 100 mls/hr IVPB DAILY@1300 [facility] Last Admin: 03/03/18 14:02 Dose: 100 mls/hr Potassium Chloride/Sodium Chloride (Ns+20 Meq Kcl -) 20 meq in 1,000 mls @ 101 mls/hr IV ASDIR [facility] Last Admin: 03/03/18 21:40 Dose: 101 mls/hr Lacosamide (Vimpat Liquid -) 200 mg GT BID [facility] Last Admin: 03/03/18 21:44 Dose: 200 mg Levetiracetam (Keppra Oral Solution -) 1,000 mg GT BID [facility] Last Admin: 03/03/18 21:45 Dose: 1,000 mg Metoprolol Tartrate (Lopressor -) 12.5 mg PEG BID [facility] Last Admin: 03/03/18 21:41 Dose: 12.5 mg Valproate Sodium (Depakene -) 1,250 mg GT BID [facility] Last Admin: 03/03/18 21:45 Dose: 1,250 mg Vancomycin HCl (Vancomycin Oral Solution) 250 mg GT Q6HPO [facility] Last Admin: 03/04/18 05:25 Dose: 250 mg CBC, BMP 03/03/18 06:00 03/03/18 06:00 Todays Labs- Ordered including Depakote level Microbiology 02/28/18 08:00 Blood Culture - Preliminary Blood - Peripheral Venous NO GROWTH OBTAINED AFTER 96 HOURS, INCUBATION TO CONTINUE FOR 1 DAYS. 02/28/18 07:00 Blood Culture - Preliminary Blood - Peripheral Venous NO GROWTH OBTAINED AFTER 96 HOURS, INCUBATION TO CONTINUE FOR 1 DAYS. 02/26/18 16:24 Blood Culture - Final Blood - Peripheral Venous Clostridium Perfringens Clostridium Perfringens#2 Enterococcus Raffinosus Enterococcus Faecalis Enterococcus Raffinosus#2 Physical exam HEENT: Yes: throat clear Neck: Yes: Supple, Trachea Midline. No jvd. Cardiovascular: Yes: S1, S2 rrr. Respiratory: Yes: Diminished (decreased breath sounds at the bases) Gastrointestinal: Yes: Normal Bowel Sounds, Soft. No: Tenderness. Peg+ extremities--- no edema. neuro--awake. Problem List - Problems (1) Bacteremia Code(s): R78.81 - BACTEREMIA (2) Severe sepsis Code(s): A41.9 - SEPSIS, UNSPECIFIED ORGANISM; R65.20 - SEVERE SEPSIS WITHOUT SEPTIC SHOCK (3) Lactic acidosis Code(s): E87.2 - ACIDOSIS (4) Failure to thrive in adult Code(s): R62.7 - ADULT FAILURE TO THRIVE (5) Functional quadriplegia Code(s): R53.2 - FUNCTIONAL QUADRIPLEGIA (6) HLD (hyperlipidemia) Code(s): E78.5 - HYPERLIPIDEMIA, UNSPECIFIED (7) HTN (hypertension) Code(s): I10 - ESSENTIAL (PRIMARY) HYPERTENSION Assessment/Plan Sepsis Lactic Acidosis Cdiff colitis dementia h/o CVA HTN Hyperlipidemia Seizure Disorder clinically better continue abx. antibiotics per ID continue fluids---add free water follow-up labs Continue present care physical therapy contact precautions in place Discussed with nursing Staff Follow-up labs Will follow
--- NOTE | 2018-03-04 11:38 | PN ---
Progress Note, Physician History of Present Illness: Infectious Disease Progress Note: Pt seen and examined. Events reviewed. She is afebrile, without acute distress. 2 loose BMs reported so far today. - Current Medication List Current Medications: Active Medications Acetaminophen (Tylenol Oral Solution -) 650 mg GT Q6H PRN PRN Reason: FEVER Last Admin: 02/26/18 23:45 Dose: 650 mg Amino Acids (Prosource No Carb Liquid Pkt) 30 ml GT BIDWM [facility] Last Admin: 03/03/18 18:04 Dose: 30 ml Aspirin (Asa -) 81 mg GT DAILY [facility] Last Admin: 03/03/18 10:25 Dose: 81 mg Enoxaparin Sodium (Lovenox -) 40 mg SQ DAILY [facility] Last Admin: 03/03/18 10:26 Dose: 40 mg Piperacillin Sod/Tazobactam (Sod 3.375 gm/ Dextrose) 50 mls @ 100 mls/hr IVPB Q8H-IV [facility]; Protocol Last Admin: 03/04/18 01:24 Dose: 100 mls/hr Daptomycin 400 mg/ Sodium (Chloride) 50 mls @ 100 mls/hr IVPB DAILY@1300 [facility] Last Admin: 03/03/18 14:02 Dose: 100 mls/hr Potassium Chloride/Sodium Chloride (Ns+20 Meq Kcl -) 20 meq in 1,000 mls @ 101 mls/hr IV ASDIR [facility] Last Admin: 03/03/18 21:40 Dose: 101 mls/hr Lacosamide (Vimpat Liquid -) 200 mg GT BID [facility] Last Admin: 03/03/18 21:44 Dose: 200 mg Levetiracetam (Keppra Oral Solution -) 1,000 mg GT BID [facility] Last Admin: 03/03/18 21:45 Dose: 1,000 mg Metoprolol Tartrate (Lopressor -) 12.5 mg PEG BID [facility] Last Admin: 03/03/18 21:41 Dose: 12.5 mg Valproate Sodium (Depakene -) 1,250 mg GT BID [facility] Last Admin: 03/03/18 21:45 Dose: 1,250 mg Vancomycin HCl (Vancomycin Oral Solution) 250 mg GT Q6HPO [facility] Last Admin: 03/04/18 05:25 Dose: 250 mg - Objective Vital Signs: Vital Signs Temperature 97.9 F 03/04/18 05:48 Pulse Rate 78 03/04/18 05:48 Respiratory Rate 18 03/04/18 05:48 Blood Pressure 114/69 03/04/18 05:48 O2 Sat by Pulse Oximetry (%) 96 03/03/18 21:00 Constitutional: Yes: No Distress, Calm Cardiovascular: Yes: Regular Rate and Rhythm Respiratory: Yes: Regular Gastrointestinal: Yes: Normal Bowel Sounds, Soft Extremities: Yes: WNL Integumentary: Yes: WNL Neurological: Yes: Confusion (baseline dementia) Labs: CBC, BMP 03/03/18 06:00 03/03/18 06:00 INR, PTT INR 1.19 (0.82-1.09) H 02/26/18 16:24 Microbiology 02/28/18 08:00 Blood - Peripheral Venous Blood Culture - Preliminary NO GROWTH OBTAINED AFTER 96 HOURS, INCUBATION TO CONTINUE FOR 1 DAYS. 02/28/18 07:00 Blood - Peripheral Venous Blood Culture - Preliminary NO GROWTH OBTAINED AFTER 96 HOURS, INCUBATION TO CONTINUE FOR 1 DAYS. 02/26/18 16:24 Blood - Peripheral Venous Blood Culture - Final Clostridium Perfringens Clostridium Perfringens#2 Enterococcus Raffinosus Enterococcus Faecalis Enterococcus Raffinosus#2 02/26/18 16:24 Blood - Peripheral Venous Blood Culture - Final Enterococcus Faecium Clostridium Innocuum 02/26/18 16:42 Urine - Urine - Catheterized Urine Culture - Final NO GROWTH OBTAINED 02/26/18 16:30 Stool Clostridium difficile Antigen (ALEX) - Final 02/26/18 16:30 Stool Clostridium difficile Toxin Assay - Final Problem List - Problems (1) Bacteremia Code(s): R78.81 - BACTEREMIA (2) Clostridium difficile diarrhea Code(s): A04.72 - ENTEROCOLITIS D/T CLOSTRIDIUM DIFFICILE, NOT SPCF RECUR (3) Lactic acidosis Code(s): E87.2 - ACIDOSIS (4) NICOLÁS (acute kidney injury) Code(s): N17.9 - ACUTE KIDNEY FAILURE, UNSPECIFIED (5) Failure to thrive in adult Code(s): R62.7 - ADULT FAILURE TO THRIVE (6) HLD (hyperlipidemia) Code(s): E78.5 - HYPERLIPIDEMIA, UNSPECIFIED (7) HTN (hypertension) Code(s): I10 - ESSENTIAL (PRIMARY) HYPERTENSION (8) Hx TIA/stroke w/o resid Code(s): Z86.73 - PRSNL HX OF TIA (TIA), AND CEREB INFRC W/O RESID DEFICITS (9) Seizure Code(s): R56.9 - UNSPECIFIED CONVULSIONS (10) Severe sepsis Code(s): A41.9 - SEPSIS, UNSPECIFIED ORGANISM; R65.20 - SEVERE SEPSIS WITHOUT SEPTIC SHOCK Assessment/Plan 67 y.o. female with PMH of dementia, dysphagia s/p peg, CVA, seizure d.o., HTN, HLD presented with hypotension, fever, leukocytosis and lactic acidosis Severe Sepsis VRE/Clostridium Bacteremia C. difficile colitis -- leukocytosis/fever resolved -- latest blood cultures negative -- d/c zosyn -- continue Daptomycin IV and Vancomycin via peg continue monitor
[2018-03-04] MEDS: VALPROATE SODIUM 250 MG/5 ML UNIT DOSE CUP GT SCH ×2 (12:18→21:56)
[2018-03-04] MEDS: ASPIRIN 81 MG CHEWABLE TABLETS GT SCH (12:18)
[2018-03-04] MEDS: METOPROLOL TARTRATE 25 MG TABLET (FP) PEG SCH ×2 (12:18→21:54)
[2018-03-04] MEDS: Lacosamide 50 MG/5 ML ORAL SOLUTION UNIT CUPS GT SCH ×2 (12:18→21:58)
[2018-03-04] MEDS: SODIUM CHLORIDE 0.9%/KCL 20 MEQ/1,000 ML INFUS.BAG IV SCH ×2 (12:18→22:28)
[2018-03-04] MEDS: AMINO ACIDS/PROTEIN HYDROLYS 30 ML LIQUID.PKT GT SCH ×2 (12:18→18:12)
[2018-03-04] MEDS: levETIRAcetam 500 MG/5 ML ORAL SOLUTION (UNIT-DOSE CUPS) GT SCH ×2 (12:18→21:55)
[2018-03-04] MEDS: ENOXAPARIN NA (PORCINE) 40 MG/0.4 ML DISP.SYRIN SQ SCH (12:18)
[2018-03-04 13:15] LABS: BASO % 0.4 % (0-2.0); EOS % 1.7 % (0-4.5); HEMATOCRIT 28.8 % (32.4-45.2); HEMOGLOBIN 9.7 GM/dL (10.7-15.3); LYMPH % 31.2 % (8-40); MCH 29.6 pg (25.7-33.7); MCHC 33.7 g/dl (32.0-36.0); MEAN CELL VOLUME 87.7 fl (80-96); MEAN PLT VOLUME 9.7 fl (7.5-11.1); MONO % 5.8 % (3.8-10.2); NEUT % 60.9 % (42.8-82.8); PLATELET COUNT 156 K/MM3 (134-434); RBC 3.29 M/mm3 (3.60-5.2); RDW 18.9 % (11.6-15.6); WHITE BLOOD COUNT 9.4 K/mm3 (4.0-10.0)
[2018-03-04 13:35] LABS: ALBUMIN 2.1 g/dl (3.4-5.0); ALK PHOS 57 U/L (45-117); ANION GAP 8 (8-16); BILIRUBIN,TOTAL 0.1 mg/dL (0.2-1.0); BLOOD UREA NITROGEN 4 mg/dL (7-18); CALCIUM 8.8 mg/dL (8.5-10.1); CHLORIDE 114 mmol/L (98-107); CO2 27 mmol/L (21-32); CREATININE 0.5 mg/dL (0.55-1.02); GLUCOSE,RANDOM 90 mg/dL (74-106); POTASSIUM 3.6 mmol/L (3.5-5.1); SGOT/AST 10 U/L (15-37); SGPT/ALT 12 U/L (12-78); SODIUM 149 mmol/L (136-145); TOT PROT 6.1 g/dl (6.4-8.2)
--- NOTE | 2018-03-04 14:09 | PN ---
Progress Note (short form) - Note Progress Note: PULMONARY Communicative today. Denies shortness of breath. Mild abdominal pain. No fevers recorded. Vital Signs Period Temp Pulse Resp BP Sys/Levine Pulse Ox Last 24 Hr 97.5 F-98.7 F 73-86 18-20 98-122/64-75 96 Gen: NAD at rest Heart: RRR Lung: decreased breath sounds at the bases Abd: softly distended, nontender Ext: no edema CBC, BMP 03/04/18 12:36 03/04/18 12:36 Active Medications Acetaminophen (Tylenol Oral Solution -) 650 mg GT Q6H PRN PRN Reason: FEVER Last Admin: 02/26/18 23:45 Dose: 650 mg Amino Acids (Prosource No Carb Liquid Pkt) 30 ml GT BIDWM [facility] Last Admin: 03/04/18 12:18 Dose: 30 ml Aspirin (Asa -) 81 mg GT DAILY [facility] Last Admin: 03/04/18 12:18 Dose: 81 mg Enoxaparin Sodium (Lovenox -) 40 mg SQ DAILY [facility] Last Admin: 03/04/18 12:18 Dose: 40 mg Daptomycin 400 mg/ Sodium (Chloride) 50 mls @ 100 mls/hr IVPB DAILY@1300 [facility] Last Admin: 03/03/18 14:02 Dose: 100 mls/hr Potassium Chloride/Sodium Chloride (Ns+20 Meq Kcl -) 20 meq in 1,000 mls @ 101 mls/hr IV ASDIR [facility] Last Admin: 03/04/18 12:18 Dose: 101 mls/hr Lacosamide (Vimpat Liquid -) 200 mg GT BID [facility] Last Admin: 03/04/18 12:18 Dose: 200 mg Levetiracetam (Keppra Oral Solution -) 1,000 mg GT BID [facility] Last Admin: 03/04/18 12:18 Dose: 1,000 mg Metoprolol Tartrate (Lopressor -) 12.5 mg PEG BID [facility] Last Admin: 03/04/18 12:18 Dose: 12.5 mg Valproate Sodium (Depakene -) 1,250 mg GT BID [facility] Last Admin: 03/04/18 12:18 Dose: 1,250 mg Vancomycin HCl (Vancomycin Oral Solution) 250 mg GT Q6HPO [facility] Last Admin: 03/04/18 12:18 Dose: 250 mg A/P Polymicrobial Bacteremia C Diff Colitis Severe Sepsis Lactic Acidosis r/o Pneumonia h/o CVA HTN Hyperlipidemia Seizure Disorder - continue antibiotics per ID - aspiration precautions - O2 to keep SpO2 >90% - DVT prophylaxis Problem List - Problems (1) Bacteremia Code(s): R78.81 - BACTEREMIA (2) Severe sepsis Code(s): A41.9 - SEPSIS, UNSPECIFIED ORGANISM; R65.20 - SEVERE SEPSIS WITHOUT SEPTIC SHOCK (3) Lactic acidosis Code(s): E87.2 - ACIDOSIS (4) Failure to thrive in adult Code(s): R62.7 - ADULT FAILURE TO THRIVE (5) Functional quadriplegia Code(s): R53.2 - FUNCTIONAL QUADRIPLEGIA (6) HLD (hyperlipidemia) Code(s): E78.5 - HYPERLIPIDEMIA, UNSPECIFIED (7) HTN (hypertension) Code(s): I10 - ESSENTIAL (PRIMARY) HYPERTENSION
[2018-03-04] MEDS: DAPTOMYCIN 400 MG in SODIUM CHLORIDE 50 ML IVPB SCH (14:36)
[2018-03-05] MEDS: VANCOMYCIN 250 MG/5 ML ORAL SOLUTION GT SCH ×4 (05:35→23:37)
[2018-03-05 07:53] LABS: BASO % 0.4 % (0-2.0); EOS % 3.4 % (0-4.5); HEMATOCRIT 26.7 % (32.4-45.2); HEMOGLOBIN 9.3 GM/dL (10.7-15.3); MCH 30.5 pg (25.7-33.7); MCHC 34.6 g/dl (32.0-36.0); MEAN CELL VOLUME 87.9 fl (80-96); MEAN PLT VOLUME 9.6 fl (7.5-11.1); MONO % 8.9 % (3.8-10.2); NEUT % 45.3 % (42.8-82.8); PLATELET COUNT 160 K/MM3 (134-434); RBC 3.04 M/mm3 (3.60-5.2); RDW 18.6 % (11.6-15.6); WHITE BLOOD COUNT 7.5 K/mm3 (4.0-10.0)
[2018-03-05] MEDS ORDERED: PT OWN MED DRAWER 7, Y5N ONE ×2 (08:00→19:57)
[2018-03-05] MEDS: AMINO ACIDS/PROTEIN HYDROLYS 30 ML LIQUID.PKT GT SCH ×2 (08:19→17:55)
[2018-03-05 08:39] LABS: CHLORIDE 114 mmol/L (98-107); POTASSIUM 3.6 mmol/L (3.5-5.1); SODIUM 150 mmol/L (136-145)
[2018-03-05 08:55] LABS: ALK PHOS 58 U/L (45-117); ANION GAP 7 (8-16); BILIRUBIN,TOTAL 0.1 mg/dL (0.2-1.0); BLOOD UREA NITROGEN 5 mg/dL (7-18); CALCIUM 8.4 mg/dL (8.5-10.1); CO2 29 mmol/L (21-32); CREATININE 0.4 mg/dL (0.55-1.02); GLUCOSE,RANDOM 74 mg/dL (74-106); SGOT/AST 10 U/L (15-37); SGPT/ALT 10 U/L (12-78); TOT PROT 5.6 g/dl (6.4-8.2)
[2018-03-05] MEDS: METOPROLOL TARTRATE 25 MG TABLET (FP) PEG SCH ×2 (09:37→21:43)
[2018-03-05] MEDS: VALPROATE SODIUM 250 MG/5 ML UNIT DOSE CUP GT SCH ×2 (09:37→21:41)
[2018-03-05] MEDS: ASPIRIN 81 MG CHEWABLE TABLETS GT SCH (09:38)
[2018-03-05] MEDS: Lacosamide 50 MG/5 ML ORAL SOLUTION UNIT CUPS GT SCH ×2 (09:39→21:44)
[2018-03-05] MEDS: ENOXAPARIN NA (PORCINE) 40 MG/0.4 ML DISP.SYRIN SQ SCH (09:39)
[2018-03-05] MEDS: levETIRAcetam 500 MG/5 ML ORAL SOLUTION (UNIT-DOSE CUPS) GT SCH ×2 (09:40→21:41)
[2018-03-05] MEDS: SODIUM CHLORIDE 0.9%/KCL 20 MEQ/1,000 ML INFUS.BAG IV SCH ×3 (09:41→19:17)
--- NOTE | 2018-03-05 11:17 | PN ---
Progress Note, Physician History of Present Illness: Infectious Disease progress note: Pt remains alert, afebrile. States she feels "fine". Currently with loose BM, no abd discomfort. - Current Medication List Current Medications: Active Medications Acetaminophen (Tylenol Oral Solution -) 650 mg GT Q6H PRN PRN Reason: FEVER Last Admin: 02/26/18 23:45 Dose: 650 mg Amino Acids (Prosource No Carb Liquid Pkt) 30 ml GT BIDWM [facility] Last Admin: 03/05/18 08:19 Dose: 30 ml Aspirin (Asa -) 81 mg GT DAILY [facility] Last Admin: 03/05/18 09:38 Dose: 81 mg Enoxaparin Sodium (Lovenox -) 40 mg SQ DAILY [facility] Last Admin: 03/05/18 09:39 Dose: 40 mg Daptomycin 400 mg/ Sodium (Chloride) 50 mls @ 100 mls/hr IVPB DAILY@1300 [facility] Last Admin: 03/04/18 14:36 Dose: 100 mls/hr Potassium Chloride/Sodium Chloride (Ns+20 Meq Kcl -) 20 meq in 1,000 mls @ 101 mls/hr IV ASDIR [facility] Last Admin: 03/05/18 09:41 Dose: 101 mls/hr Lacosamide (Vimpat Liquid -) 200 mg GT BID [facility] Last Admin: 03/05/18 09:39 Dose: 200 mg Levetiracetam (Keppra Oral Solution -) 1,000 mg GT BID [facility] Last Admin: 03/05/18 09:40 Dose: 1,000 mg Metoprolol Tartrate (Lopressor -) 12.5 mg PEG BID [facility] Last Admin: 03/05/18 09:37 Dose: 12.5 mg Valproate Sodium (Depakene -) 1,250 mg GT BID [facility] Last Admin: 03/05/18 09:37 Dose: 1,250 mg Vancomycin HCl (Vancomycin Oral Solution) 250 mg GT Q6HPO [facility] Last Admin: 03/05/18 05:35 Dose: 250 mg - Objective Vital Signs: Vital Signs Temperature 97.7 F 03/05/18 09:00 Pulse Rate 77 03/05/18 09:00 Respiratory Rate 18 03/05/18 09:00 Blood Pressure 107/55 03/05/18 09:00 O2 Sat by Pulse Oximetry (%) 97 03/04/18 21:00 Constitutional: Yes: No Distress, Calm Cardiovascular: Yes: Regular Rate and Rhythm Respiratory: Yes: Regular Gastrointestinal: Yes: Normal Bowel Sounds, Soft Edema: No Integumentary: Yes: WNL Neurological: Yes: Alert Labs: CBC, BMP 03/05/18 06:34 03/05/18 06:34 INR, PTT INR 1.19 (0.82-1.09) H 02/26/18 16:24 Problem List - Problems (1) Bacteremia Code(s): R78.81 - BACTEREMIA (2) Clostridium difficile diarrhea Code(s): A04.72 - ENTEROCOLITIS D/T CLOSTRIDIUM DIFFICILE, NOT SPCF RECUR (3) Lactic acidosis Code(s): E87.2 - ACIDOSIS (4) NICOLÁS (acute kidney injury) Code(s): N17.9 - ACUTE KIDNEY FAILURE, UNSPECIFIED (5) Failure to thrive in adult Code(s): R62.7 - ADULT FAILURE TO THRIVE (6) HLD (hyperlipidemia) Code(s): E78.5 - HYPERLIPIDEMIA, UNSPECIFIED (7) HTN (hypertension) Code(s): I10 - ESSENTIAL (PRIMARY) HYPERTENSION (8) Hx TIA/stroke w/o resid Code(s): Z86.73 - PRSNL HX OF TIA (TIA), AND CEREB INFRC W/O RESID DEFICITS (9) Seizure Code(s): R56.9 - UNSPECIFIED CONVULSIONS (10) Severe sepsis Code(s): A41.9 - SEPSIS, UNSPECIFIED ORGANISM; R65.20 - SEVERE SEPSIS WITHOUT SEPTIC SHOCK Assessment/Plan 67 y.o. female with PMH of dementia, dysphagia s/p peg, CVA, seizure d.o., HTN, HLD presented with hypotension, fever, leukocytosis and lactic acidosis Severe Sepsis VRE/Clostridium Bacteremia C. difficile colitis -- remains afebrile, without leukocytosis -- bacteremia resolved -- pt with persisten diarrhea -- continue Daptomycin IV and Vancomycin via peg, will consider add flagyl IV continue monitor
--- NOTE | 2018-03-05 12:26 | PN ---
Progress Note (short form) - Note Progress Note: overall comfortable No new issues Still having diarrhea Afebrile denies abdominal pain Vital Signs Temp 97.7 F 03/05/18 09:00 Pulse 77 03/05/18 09:00 Resp 18 03/05/18 09:00 BP 107/55 03/05/18 09:00 Pulse Ox 97 03/04/18 21:00 Intake & Output 03/04/18 03/05/18 03/05/18 23:59 11:59 23:59 Intake Total 0 2059 Balance 0 2059 Intake: IV 1150 NS+20 MEQ KCL - 20 meq In 1150 1,000 ml @ 101 mls/hr IV ASDIR [facility] Rx#: [id number] Oral 0 Tube Feeding 480 Tube Irrigant 430 Other: Voiding Method Incontinent Incontinent # Unmeasured Voids Void 3 2 Bowel Movement Yes No # Bowel Movements 3 Active Medications Acetaminophen (Tylenol Oral Solution -) 650 mg GT Q6H PRN PRN Reason: FEVER Last Admin: 02/26/18 23:45 Dose: 650 mg Amino Acids (Prosource No Carb Liquid Pkt) 30 ml GT BIDWM [facility] Last Admin: 03/05/18 08:19 Dose: 30 ml Aspirin (Asa -) 81 mg GT DAILY [facility] Last Admin: 03/05/18 09:38 Dose: 81 mg Enoxaparin Sodium (Lovenox -) 40 mg SQ DAILY [facility] Last Admin: 03/05/18 09:39 Dose: 40 mg Daptomycin 400 mg/ Sodium (Chloride) 50 mls @ 100 mls/hr IVPB DAILY@1300 [facility] Last Admin: 03/04/18 14:36 Dose: 100 mls/hr Potassium Chloride/Sodium Chloride (Ns+20 Meq Kcl -) 20 meq in 1,000 mls @ 101 mls/hr IV ASDIR [facility] Last Admin: 03/05/18 09:41 Dose: 101 mls/hr Lacosamide (Vimpat Liquid -) 200 mg GT BID [facility] Last Admin: 03/05/18 09:39 Dose: 200 mg Levetiracetam (Keppra Oral Solution -) 1,000 mg GT BID [facility] Last Admin: 03/05/18 09:40 Dose: 1,000 mg Metoprolol Tartrate (Lopressor -) 12.5 mg PEG BID [facility] Last Admin: 03/05/18 09:37 Dose: 12.5 mg Valproate Sodium (Depakene -) 1,250 mg GT BID [facility] Last Admin: 03/05/18 09:37 Dose: 1,250 mg Vancomycin HCl (Vancomycin Oral Solution) 250 mg GT Q6HPO [facility] Last Admin: 03/05/18 05:35 Dose: 250 mg CBC, BMP 03/05/18 06:34 03/05/18 06:34 Microbiology 02/28/18 08:00 Blood Culture - Final Blood - Peripheral Venous NO GROWTH AFTER 5 DAYS INCUBATION 02/28/18 07:00 Blood Culture - Final Blood - Peripheral Venous NO GROWTH AFTER 5 DAYS INCUBATION Physical exam HEENT: Yes: throat clear Neck: Yes: Supple, Trachea Midline. No jvd. Cardiovascular: Yes: S1, S2 rrr. Respiratory: Yes: Diminished (decreased breath sounds at the bases) Gastrointestinal: Yes: Normal Bowel Sounds, Soft. No: Tenderness. Peg+ extremities--- no edema. neuro--awake. Problem List - Problems (1) Bacteremia Code(s): R78.81 - BACTEREMIA (2) Severe sepsis Code(s): A41.9 - SEPSIS, UNSPECIFIED ORGANISM; R65.20 - SEVERE SEPSIS WITHOUT SEPTIC SHOCK (3) Lactic acidosis Code(s): E87.2 - ACIDOSIS (4) Failure to thrive in adult Code(s): R62.7 - ADULT FAILURE TO THRIVE (5) Functional quadriplegia Code(s): R53.2 - FUNCTIONAL QUADRIPLEGIA (6) HLD (hyperlipidemia) Code(s): E78.5 - HYPERLIPIDEMIA, UNSPECIFIED (7) HTN (hypertension) Code(s): I10 - ESSENTIAL (PRIMARY) HYPERTENSION Assessment/Plan Sepsis Lactic Acidosis Cdiff colitis dementia h/o CVA HTN Hyperlipidemia Seizure Disorder clinically better continue abx. antibiotics per ID continue fluids--- follow-up labs Continue present care physical therapy contact precautions in place Discussed with nursing Staff Follow-up labs if no improvement in diarrhea--- will consider adding Flagyl Will follow
--- NOTE | 2018-03-05 12:34 | PN ---
Progress Note (short form) - Note Progress Note: PULMONARY Remains awake, alert. Denies shortness of breath. Mild abdominal pain. No fevers recorded. Vital Signs Period Temp Pulse Resp BP Sys/Levine Pulse Ox Last 24 Hr 97.7 F-99.4 F 69-82 -18 102-128/55-76 97 Gen: NAD at rest Heart: RRR Lung: decreased breath sounds at the bases Abd: softly distended, nontender Ext: no edema CBC, BMP 03/05/18 06:34 03/05/18 06:34 Active Medications Acetaminophen (Tylenol Oral Solution -) 650 mg GT Q6H PRN PRN Reason: FEVER Last Admin: 02/26/18 23:45 Dose: 650 mg Amino Acids (Prosource No Carb Liquid Pkt) 30 ml GT BIDWM [facility] Last Admin: 03/05/18 08:19 Dose: 30 ml Aspirin (Asa -) 81 mg GT DAILY [facility] Last Admin: 03/05/18 09:38 Dose: 81 mg Enoxaparin Sodium (Lovenox -) 40 mg SQ DAILY [facility] Last Admin: 03/05/18 09:39 Dose: 40 mg Daptomycin 400 mg/ Sodium (Chloride) 50 mls @ 100 mls/hr IVPB DAILY@1300 [facility] Last Admin: 03/04/18 14:36 Dose: 100 mls/hr Potassium Chloride/Sodium Chloride (Ns+20 Meq Kcl -) 20 meq in 1,000 mls @ 101 mls/hr IV ASDIR [facility] Last Admin: 03/05/18 09:41 Dose: 101 mls/hr Lacosamide (Vimpat Liquid -) 200 mg GT BID [facility] Last Admin: 03/05/18 09:39 Dose: 200 mg Levetiracetam (Keppra Oral Solution -) 1,000 mg GT BID [facility] Last Admin: 03/05/18 09:40 Dose: 1,000 mg Metoprolol Tartrate (Lopressor -) 12.5 mg PEG BID [facility] Last Admin: 03/05/18 09:37 Dose: 12.5 mg Valproate Sodium (Depakene -) 1,250 mg GT BID [facility] Last Admin: 03/05/18 09:37 Dose: 1,250 mg Vancomycin HCl (Vancomycin Oral Solution) 250 mg GT Q6HPO [facility] Last Admin: 08/05/18 05:35 Dose: 250 mg A/P Polymicrobial Bacteremia C Diff Colitis Severe Sepsis improving Lactic Acidosis resolved r/o Pneumonia h/o CVA HTN Hyperlipidemia Seizure Disorder - continue antibiotics per ID - aspiration precautions - O2 to keep SpO2 >90% - DVT prophylaxis Problem List - Problems (1) Bacteremia Code(s): R78.81 - BACTEREMIA (2) Severe sepsis Code(s): A41.9 - SEPSIS, UNSPECIFIED ORGANISM; R65.20 - SEVERE SEPSIS WITHOUT SEPTIC SHOCK (3) Lactic acidosis Code(s): E87.2 - ACIDOSIS (4) Failure to thrive in adult Code(s): R62.7 - ADULT FAILURE TO THRIVE (5) Functional quadriplegia Code(s): R53.2 - FUNCTIONAL QUADRIPLEGIA (6) HLD (hyperlipidemia) Code(s): E78.5 - HYPERLIPIDEMIA, UNSPECIFIED (7) HTN (hypertension) Code(s): I10 - ESSENTIAL (PRIMARY) HYPERTENSION
[2018-03-05] MEDS: DAPTOMYCIN 400 MG in SODIUM CHLORIDE 50 ML IVPB SCH (13:43)
[2018-03-06] MEDS: SODIUM CHLORIDE 0.9%/KCL 20 MEQ/1,000 ML INFUS.BAG IV SCH ×3 (05:42→17:25)
[2018-03-06] MEDS: VANCOMYCIN 250 MG/5 ML ORAL SOLUTION GT SCH ×3 (05:44→18:24)
[2018-03-06] MEDS: AMINO ACIDS/PROTEIN HYDROLYS 30 ML LIQUID.PKT GT SCH ×2 (09:07→17:26)
--- NOTE | 2018-03-06 09:53 | PN ---
Progress Note (short form) - Note Progress Note: No acute events overnight. Breathing non-labored. Intake & Output 03/03/18 03/04/18 03/05/18 03/06/18 23:59 23:59 23:59 23:59 Intake Total 4350 0 3322 0 Balance 4350 0 3321 2059 Last Vital Signs Temp Pulse Resp BP Pulse Ox 98.6 F 65 18 119/77 97 03/06/18 04:32 03/06/18 04:32 03/06/18 04:32 03/06/18 04:32 03/05/18 21:00 Active Medications Acetaminophen (Tylenol Oral Solution -) 650 mg GT Q6H PRN PRN Reason: FEVER Last Admin: 02/26/18 23:45 Dose: 650 mg Amino Acids (Prosource No Carb Liquid Pkt) 30 ml GT BIDWM [facility] Last Admin: 03/06/18 09:07 Dose: 30 ml Aspirin (Asa -) 81 mg GT DAILY [facility] Last Admin: 03/05/18 09:38 Dose: 81 mg Enoxaparin Sodium (Lovenox -) 40 mg SQ DAILY [facility] Last Admin: 03/05/18 09:39 Dose: 40 mg Daptomycin 400 mg/ Sodium (Chloride) 50 mls @ 100 mls/hr IVPB DAILY@1300 [facility] Last Admin: 03/05/18 13:43 Dose: 100 mls/hr Potassium Chloride/Sodium Chloride (Ns+20 Meq Kcl -) 20 meq in 1,000 mls @ 101 mls/hr IV ASDIR [facility] Last Admin: 03/06/18 05:42 Dose: 101 mls/hr Lacosamide (Vimpat Liquid -) 200 mg GT BID [facility] Last Admin: 03/05/18 21:44 Dose: 200 mg Levetiracetam (Keppra Oral Solution -) 1,000 mg GT BID [facility] Last Admin: 03/05/18 21:41 Dose: 1,000 mg Metoprolol Tartrate (Lopressor -) 12.5 mg PEG BID [facility] Last Admin: 03/05/18 21:43 Dose: 12.5 mg Valproate Sodium (Depakene -) 1,250 mg GT BID [facility] Last Admin: 03/05/18 21:41 Dose: 1,250 mg Vancomycin HCl (Vancomycin Oral Solution) 250 mg GT Q6HPO [facility] Last Admin: 03/06/18 05:44 Dose: 250 mg Gen: NAD Heart: RRR Lung: decreased breath sounds at the bases Abd: softly distended, nontender Ext: no edema Problem List - Problems (1) Bacteremia Code(s): R78.81 - BACTEREMIA (2) Severe sepsis Code(s): A41.9 - SEPSIS, UNSPECIFIED ORGANISM; R65.20 - SEVERE SEPSIS WITHOUT SEPTIC SHOCK (3) Lactic acidosis Code(s): E87.2 - ACIDOSIS (4) Failure to thrive in adult Code(s): R62.7 - ADULT FAILURE TO THRIVE (5) Functional quadriplegia Code(s): R53.2 - FUNCTIONAL QUADRIPLEGIA (6) HLD (hyperlipidemia) Code(s): E78.5 - HYPERLIPIDEMIA, UNSPECIFIED (7) HTN (hypertension) Code(s): I10 - ESSENTIAL (PRIMARY) HYPERTENSION A/P Polymicrobial Bacteremia C Diff Colitis Severe Sepsis Lactic Acidosis r/o Pneumonia h/o CVA HTN Hyperlipidemia Seizure Disorder - ABX per ID - Aspiration precautions - O2 to keep SpO2 >90% - VTE prophylaxis Dr Early
[2018-03-06] MEDS ORDERED: PT OWN MED DRAWER 7, Y5N ONE ×2 (09:56→19:57)
--- NOTE | 2018-03-06 11:22 | PN ---
Progress Note (short form) - Note Progress Note: comfortable Still having diarrhea No other issues Afebrile denies pain Vital Signs Temp 98.6 F 03/06/18 04:32 Pulse 65 03/06/18 04:32 Resp 18 03/06/18 04:32 BP 119/77 03/06/18 04:32 Pulse Ox 97 03/05/18 21:00 Intake & Output 03/05/18 03/05/18 03/06/18 11:59 23:59 11:59 Intake Total 2059 [id number] Balance 2059 1261 2059 Intake: IV 1150 1212 1150 NS+20 MEQ KCL - 20 meq In 1150 1212 1150 1,000 ml @ 101 mls/hr IV ASDIR [facility] Rx#: [id number] IVPB 50 Oral 0 Tube Feeding 480 480 Tube Irrigant 430 430 Other: Voiding Method Incontinent Incontinent Incontinent # Unmeasured Voids Void 2 Bowel Movement No Active Medications Acetaminophen (Tylenol Oral Solution -) 650 mg GT Q6H PRN PRN Reason: FEVER Last Admin: 02/26/18 23:45 Dose: 650 mg Amino Acids (Prosource No Carb Liquid Pkt) 30 ml GT BIDWM [facility] Last Admin: 03/06/18 09:07 Dose: 30 ml Aspirin (Asa -) 81 mg GT DAILY [facility] Last Admin: 03/05/18 09:38 Dose: 81 mg Daptomycin 400 mg/ Sodium (Chloride) 50 mls @ 100 mls/hr IVPB DAILY@1300 [facility] Last Admin: 03/05/18 13:43 Dose: 100 mls/hr Potassium Chloride/Sodium Chloride (Ns+20 Meq Kcl -) 20 meq in 1,000 mls @ 101 mls/hr IV ASDIR [facility] Last Admin: 03/06/18 05:42 Dose: 101 mls/hr Metronidazole (Flagyl 500mg Premixed Ivpb -) 500 mg in 100 mls @ 100 mls/hr IVPB Q8H-IV [facility] Lacosamide (Vimpat Liquid -) 200 mg GT BID [facility] Last Admin: 03/05/18 21:44 Dose: 200 mg Levetiracetam (Keppra Oral Solution -) 1,000 mg GT BID [facility] Last Admin: 03/05/18 21:41 Dose: 1,000 mg Metoprolol Tartrate (Lopressor -) 12.5 mg PEG BID [facility] Last Admin: 03/05/18 21:43 Dose: 12.5 mg Valproate Sodium (Depakene -) 1,250 mg GT BID [facility] Last Admin: 03/05/18 21:41 Dose: 1,250 mg Vancomycin HCl (Vancomycin Oral Solution) 250 mg GT Q6HPO [facility] Last Admin: 03/06/18 05:44 Dose: 250 mg CBC, BMP 03/05/18 06:34 03/05/18 06:34 Microbiology 02/28/18 08:00 Blood Culture - Final Blood - Peripheral Venous NO GROWTH AFTER 5 DAYS INCUBATION Physical exam HEENT: Yes: throat clear Neck: Yes: Supple, Trachea Midline. No jvd. Cardiovascular: Yes: S1, S2 rrr. Respiratory: Yes: Diminished (decreased breath sounds at the bases) Gastrointestinal: Yes: Normal Bowel Sounds, Soft. No: Tenderness. Peg+ extremities--- no edema. neuro--awake. Assessment/Plan Sepsis Lactic Acidosis Cdiff colitis dementia h/o CVA HTN Hyperlipidemia Seizure Disorder clinically better continue abx. antibiotics per ID continue fluids--- follow-up labs Continue present care physical therapy contact precautions in place Discussed with nursing Staff Will get F UA I will add Flagyl also Will follow
[2018-03-06] MEDS: ASPIRIN 81 MG CHEWABLE TABLETS GT SCH (11:46)
[2018-03-06] MEDS: VALPROATE SODIUM 250 MG/5 ML UNIT DOSE CUP GT SCH ×2 (11:46→22:04)
[2018-03-06] MEDS: levETIRAcetam 500 MG/5 ML ORAL SOLUTION (UNIT-DOSE CUPS) GT SCH ×2 (11:47→22:04)
[2018-03-06] MEDS: METOPROLOL TARTRATE 25 MG TABLET (FP) PEG SCH ×2 (11:47→22:04)
[2018-03-06] MEDS: Lacosamide 50 MG/5 ML ORAL SOLUTION UNIT CUPS GT SCH ×2 (11:49→22:03)
--- NOTE | 2018-03-06 12:32 | PN ---
Progress Note, Physician History of Present Illness: stable no new issues - Current Medication List Current Medications: Active Medications Acetaminophen (Tylenol Oral Solution -) 650 mg GT Q6H PRN PRN Reason: FEVER Last Admin: 02/26/18 23:45 Dose: 650 mg Amino Acids (Prosource No Carb Liquid Pkt) 30 ml GT BIDWM [facility] Last Admin: 03/06/18 09:07 Dose: 30 ml Aspirin (Asa -) 81 mg GT DAILY [facility] Last Admin: 03/06/18 11:46 Dose: 81 mg Daptomycin 400 mg/ Sodium (Chloride) 50 mls @ 100 mls/hr IVPB DAILY@1300 [facility] Last Admin: 03/05/18 13:43 Dose: 100 mls/hr Potassium Chloride/Sodium Chloride (Ns+20 Meq Kcl -) 20 meq in 1,000 mls @ 101 mls/hr IV ASDIR [facility] Last Admin: 03/06/18 11:49 Dose: Not Given Metronidazole (Flagyl 500mg Premixed Ivpb -) 500 mg in 100 mls @ 100 mls/hr IVPB Q8H-IV [facility] Last Admin: 03/06/18 12:17 Dose: 100 mls/hr Lacosamide (Vimpat Liquid -) 200 mg GT BID [facility] Last Admin: 03/06/18 11:49 Dose: 200 mg Levetiracetam (Keppra Oral Solution -) 1,000 mg GT BID [facility] Last Admin: 03/06/18 11:47 Dose: 1,000 mg Metoprolol Tartrate (Lopressor -) 12.5 mg PEG BID [facility] Last Admin: 03/06/18 11:47 Dose: 12.5 mg Valproate Sodium (Depakene -) 1,250 mg GT BID [facility] Last Admin: 03/06/18 11:46 Dose: 1,250 mg Vancomycin HCl (Vancomycin Oral Solution) 250 mg GT Q6HPO [facility] Last Admin: 03/06/18 05:44 Dose: 250 mg - Objective Vital Signs: Vital Signs Temperature 98.6 F 03/06/18 04:32 Pulse Rate 65 03/06/18 04:32 Respiratory Rate 18 03/06/18 04:32 Blood Pressure 119/77 03/06/18 04:32 O2 Sat by Pulse Oximetry (%) 97 03/05/18 21:00 Constitutional: Yes: No Distress, Calm Cardiovascular: Yes: S1, S2 Respiratory: Yes: Regular, CTA Bilaterally Gastrointestinal: Yes: Normal Bowel Sounds, Soft Musculoskeletal: Yes: WNL Extremities: Yes: WNL Neurological: Yes: Alert Psychiatric: Yes: Alert Labs: CBC, BMP 03/05/18 06:34 03/05/18 06:34 INR, PTT INR 1.19 (0.82-1.09) H 02/26/18 16:24 Assessment/Plan patient coming in with sepsis and bacteremia Problem List - Problems (1) Bacteremia Code(s): R78.81 - BACTEREMIA (2) Severe sepsis Code(s): A41.9 - SEPSIS, UNSPECIFIED ORGANISM; R65.20 - SEVERE SEPSIS WITHOUT SEPTIC SHOCK (3) Lactic acidosis Code(s): E87.2 - ACIDOSIS (4) Failure to thrive in adult Code(s): R62.7 - ADULT FAILURE TO THRIVE (5) Functional quadriplegia Code(s): R53.2 - FUNCTIONAL QUADRIPLEGIA (6) HLD (hyperlipidemia) Code(s): E78.5 - HYPERLIPIDEMIA, UNSPECIFIED (7) HTN (hypertension) Code(s): I10 - ESSENTIAL (PRIMARY) HYPERTENSION cdiff Assessment/Plan continue current mgmt continue abx monitor dirrhoea rest as per the team
[2018-03-06] MEDS: DAPTOMYCIN 400 MG in SODIUM CHLORIDE 50 ML IVPB SCH (15:10)
[2018-03-07] MEDS: VANCOMYCIN 250 MG/5 ML ORAL SOLUTION GT SCH ×5 (01:00→23:34)
[2018-03-07] MEDS: SODIUM CHLORIDE 0.9%/KCL 20 MEQ/1,000 ML INFUS.BAG IV SCH ×2 (05:51→18:24)
--- NOTE | 2018-03-07 08:51 | PN ---
Progress Note (short form) - Note Progress Note: Pt seen/ examined feels well denies abd pain today afebrile + diarrhea. Vital Signs Temp 98.3 F 03/07/18 05:56 Pulse 73 03/07/18 05:56 Resp 20 03/07/18 05:56 BP 110/71 03/07/18 05:56 Pulse Ox 99 03/06/18 21:00 Intake & Output 03/06/18 03/06/18 03/07/18 11:59 23:59 11:59 Intake Total 0 2646 1322 Balance 0 2646 1322 Intake: IV 1150 1616 707 NS+20 MEQ KCL - 20 meq In 1150 1616 707 1,000 ml @ 101 mls/hr IV ASDIR [facility] Rx#: [id number] IVPB 150 Tube Feeding 480 640 280 Tube Irrigant 430 240 335 Other: Voiding Method Incontinent Incontinent Incontinent # Unmeasured Voids Void 1 2 Bowel Movement Yes Yes: loose # Bowel Movements 1 2 Body Mass Index (BMI) 24.5 Active Medications Acetaminophen (Tylenol Oral Solution -) 650 mg GT Q6H PRN PRN Reason: FEVER Last Admin: 02/26/18 23:45 Dose: 650 mg Amino Acids (Prosource No Carb Liquid Pkt) 30 ml GT BIDWM [facility] Last Admin: 03/06/18 17:26 Dose: 30 ml Aspirin (Asa -) 81 mg GT DAILY [facility] Last Admin: 03/06/18 11:46 Dose: 81 mg Daptomycin 400 mg/ Sodium (Chloride) 50 mls @ 100 mls/hr IVPB DAILY@1300 [facility] Last Admin: 03/06/18 15:10 Dose: 100 mls/hr Potassium Chloride/Sodium Chloride (Ns+20 Meq Kcl -) 20 meq in 1,000 mls @ 101 mls/hr IV ASDIR [facility] Last Admin: 03/07/18 05:51 Dose: 101 mls/hr Metronidazole (Flagyl 500mg Premixed Ivpb -) 500 mg in 100 mls @ 100 mls/hr IVPB Q8H-IV [facility] Last Admin: 03/07/18 02:11 Dose: 100 mls/hr Lacosamide (Vimpat Liquid -) 200 mg GT BID [facility] Last Admin: 03/06/18 22:03 Dose: 200 mg Levetiracetam (Keppra Oral Solution -) 1,000 mg GT BID [facility] Last Admin: 03/06/18 22:04 Dose: 1,000 mg Metoprolol Tartrate (Lopressor -) 12.5 mg PEG BID [facility] Last Admin: 03/06/18 22:04 Dose: 12.5 mg Valproate Sodium (Depakene -) 1,250 mg GT BID [facility] Last Admin: 03/06/18 22:04 Dose: 1,250 mg Vancomycin HCl (Vancomycin Oral Solution) 250 mg GT Q6HPO [facility] Last Admin: 03/07/18 05:51 Dose: 250 mg CBC, BMP 03/05/18 06:34 03/05/18 06:34 Physical exam HEENT: Yes: wnl Neck: Yes: Supple, Trachea Midline. No jvd. Cardiovascular: Yes: S1, S2 rrr. Respiratory: Yes: Diminished (decreased breath sounds at the bases) Gastrointestinal: Yes: Normal Bowel Sounds, Soft. No: Tenderness. Peg+ extremities--- no edema. neuro--awake. Problem List - Problems (1) Bacteremia Code(s): R78.81 - BACTEREMIA (2) Severe sepsis Code(s): A41.9 - SEPSIS, UNSPECIFIED ORGANISM; R65.20 - SEVERE SEPSIS WITHOUT SEPTIC SHOCK (3) Lactic acidosis Code(s): E87.2 - ACIDOSIS (4) Failure to thrive in adult Code(s): R62.7 - ADULT FAILURE TO THRIVE (5) Functional quadriplegia Code(s): R53.2 - FUNCTIONAL QUADRIPLEGIA (6) HLD (hyperlipidemia) Code(s): E78.5 - HYPERLIPIDEMIA, UNSPECIFIED (7) HTN (hypertension) Code(s): I10 - ESSENTIAL (PRIMARY) HYPERTENSION Assessment/Plan Sepsis Lactic Acidosis Cdiff colitis dementia h/o CVA HTN Hyperlipidemia Seizure Disorder clinically stable. continue abx. antibiotics per ID fua - pending Continue present care contact precautions in place Discussed with nursing Staff will discuss with i/d will follow
[2018-03-07] MEDS ORDERED: PT OWN MED DRAWER 7, Y5N ONE ×2 (10:23→20:36)
[2018-03-07] MEDS: METOPROLOL TARTRATE 25 MG TABLET (FP) PEG SCH ×2 (10:38→21:47)
[2018-03-07] MEDS: ASPIRIN 81 MG CHEWABLE TABLETS GT SCH (10:38)
[2018-03-07] MEDS: AMINO ACIDS/PROTEIN HYDROLYS 30 ML LIQUID.PKT GT SCH ×2 (10:39→18:03)
[2018-03-07] MEDS: levETIRAcetam 500 MG/5 ML ORAL SOLUTION (UNIT-DOSE CUPS) GT SCH ×2 (10:39→21:47)
[2018-03-07] MEDS: VALPROATE SODIUM 250 MG/5 ML UNIT DOSE CUP GT SCH ×2 (10:39→21:47)
--- NOTE | 2018-03-07 11:02 | PN ---
Progress Note (short form) - Note Progress Note: No acute events overnight. Breathing non-labored. Intake & Output 03/04/18 03/05/18 03/06/18 03/07/18 23:59 23:59 23:59 23:59 Intake Total 2110 3322 4706 1322 Balance 2110 3322 4706 1322 Last Vital Signs Temp Pulse Resp BP Pulse Ox 98.3 F 76 18 100/68 99 03/07/18 10:36 03/07/18 10:36 03/07/18 10:36 03/07/18 10:36 03/06/18 21:00 Active Medications Acetaminophen (Tylenol Oral Solution -) 650 mg GT Q6H PRN PRN Reason: FEVER Last Admin: 02/26/18 23:45 Dose: 650 mg Amino Acids (Prosource No Carb Liquid Pkt) 30 ml GT BIDWM [facility] Last Admin: 03/07/18 10:39 Dose: 30 ml Aspirin (Asa -) 81 mg GT DAILY [facility] Last Admin: 03/07/18 10:38 Dose: 81 mg Daptomycin 400 mg/ Sodium (Chloride) 50 mls @ 100 mls/hr IVPB DAILY@1300 [facility] Last Admin: 03/06/18 15:10 Dose: 100 mls/hr Potassium Chloride/Sodium Chloride (Ns+20 Meq Kcl -) 20 meq in 1,000 mls @ 101 mls/hr IV ASDIR [facility] Last Admin: 03/07/18 05:51 Dose: 101 mls/hr Metronidazole (Flagyl 500mg Premixed Ivpb -) 500 mg in 100 mls @ 100 mls/hr IVPB Q8H-IV [facility] Last Admin: 03/07/18 10:39 Dose: 100 mls/hr Lacosamide (Vimpat Liquid -) 200 mg GT BID [facility] Last Admin: 03/06/18 22:03 Dose: 200 mg Levetiracetam (Keppra Oral Solution -) 1,000 mg GT BID [facility] Last Admin: 03/07/18 10:39 Dose: 1,000 mg Metoprolol Tartrate (Lopressor -) 12.5 mg PEG BID [facility] Last Admin: 03/07/18 10:38 Dose: 12.5 mg Valproate Sodium (Depakene -) 1,250 mg GT BID [facility] Last Admin: 03/07/18 10:39 Dose: 1,250 mg Vancomycin HCl (Vancomycin Oral Solution) 250 mg GT Q6HPO [facility] Last Admin: 03/07/18 05:51 Dose: 250 mg Gen: NAD Heart: RRR Lung: decreased breath sounds at the bases Abd: softly distended, nontender Ext: no edema Problem List - Problems (1) Bacteremia Code(s): R78.81 - BACTEREMIA (2) Severe sepsis Code(s): A41.9 - SEPSIS, UNSPECIFIED ORGANISM; R65.20 - SEVERE SEPSIS WITHOUT SEPTIC SHOCK (3) Lactic acidosis Code(s): E87.2 - ACIDOSIS (4) Failure to thrive in adult Code(s): R62.7 - ADULT FAILURE TO THRIVE (5) Functional quadriplegia Code(s): R53.2 - FUNCTIONAL QUADRIPLEGIA (6) HLD (hyperlipidemia) Code(s): E78.5 - HYPERLIPIDEMIA, UNSPECIFIED (7) HTN (hypertension) Code(s): I10 - ESSENTIAL (PRIMARY) HYPERTENSION A/P Polymicrobial Bacteremia C Diff Colitis Severe Sepsis Lactic Acidosis r/o Pneumonia h/o CVA HTN Hyperlipidemia Seizure Disorder - ABX per ID - Aspiration precautions - O2 to keep SpO2 >90% - VTE prophylaxis Dr Early
[2018-03-07] MEDS: Lacosamide 50 MG/5 ML ORAL SOLUTION UNIT CUPS GT SCH ×2 (12:05→21:47)
--- NOTE | 2018-03-07 14:09 | PN ---
Progress Note, Physician History of Present Illness: patient doing well afebrile stable no complaints - Current Medication List Current Medications: Active Medications Acetaminophen (Tylenol Oral Solution -) 650 mg GT Q6H PRN PRN Reason: FEVER Last Admin: 02/26/18 23:45 Dose: 650 mg Amino Acids (Prosource No Carb Liquid Pkt) 30 ml GT BIDWM [facility] Last Admin: 03/07/18 10:39 Dose: 30 ml Aspirin (Asa -) 81 mg GT DAILY [facility] Last Admin: 03/07/18 10:38 Dose: 81 mg Daptomycin 400 mg/ Sodium (Chloride) 50 mls @ 100 mls/hr IVPB DAILY@1300 [facility] Last Admin: 03/06/18 15:10 Dose: 100 mls/hr Potassium Chloride/Sodium Chloride (Ns+20 Meq Kcl -) 20 meq in 1,000 mls @ 101 mls/hr IV ASDIR [facility] Last Admin: 03/07/18 05:51 Dose: 101 mls/hr Metronidazole (Flagyl 500mg Premixed Ivpb -) 500 mg in 100 mls @ 100 mls/hr IVPB Q8H-IV [facility] Last Admin: 03/07/18 10:39 Dose: 100 mls/hr Lacosamide (Vimpat Liquid -) 200 mg GT BID [facility] Last Admin: 03/07/18 12:05 Dose: 200 mg Levetiracetam (Keppra Oral Solution -) 1,000 mg GT BID [facility] Last Admin: 03/07/18 10:39 Dose: 1,000 mg Metoprolol Tartrate (Lopressor -) 12.5 mg PEG BID [facility] Last Admin: 03/07/18 10:38 Dose: 12.5 mg Valproate Sodium (Depakene -) 1,250 mg GT BID [facility] Last Admin: 03/07/18 10:39 Dose: 1,250 mg Vancomycin HCl (Vancomycin Oral Solution) 250 mg GT Q6HPO [facility] Last Admin: 03/07/18 12:04 Dose: 250 mg - Objective Vital Signs: Vital Signs Temperature 98.4 F 03/07/18 13:36 Pulse Rate 70 03/07/18 13:36 Respiratory Rate 18 03/07/18 13:36 Blood Pressure 93/63 03/07/18 13:36 O2 Sat by Pulse Oximetry (%) 99 03/06/18 21:00 Constitutional: Yes: No Distress Cardiovascular: Yes: Regular Rate and Rhythm Respiratory: Yes: Regular, CTA Bilaterally Gastrointestinal: Yes: Normal Bowel Sounds, Soft Musculoskeletal: Yes: WNL Extremities: Yes: WNL Neurological: Yes: Alert, Oriented Psychiatric: Yes: Alert, Oriented Labs: CBC, BMP 03/05/18 06:34 03/05/18 06:34 INR, PTT INR 1.19 (0.82-1.09) H 02/26/18 16:24 Assessment/Plan patient coming in with sepsis and bacteremia Problem List - Problems (1) Bacteremia Code(s): R78.81 - BACTEREMIA (2) Severe sepsis Code(s): A41.9 - SEPSIS, UNSPECIFIED ORGANISM; R65.20 - SEVERE SEPSIS WITHOUT SEPTIC SHOCK (3) Lactic acidosis Code(s): E87.2 - ACIDOSIS (4) Failure to thrive in adult Code(s): R62.7 - ADULT FAILURE TO THRIVE (5) Functional quadriplegia Code(s): R53.2 - FUNCTIONAL QUADRIPLEGIA (6) HLD (hyperlipidemia) Code(s): E78.5 - HYPERLIPIDEMIA, UNSPECIFIED (7) HTN (hypertension) Code(s): I10 - ESSENTIAL (PRIMARY) HYPERTENSION cdiff Assessment/Plan continue current mgmt will deescalate abx continue oral vanco hydration rest as per the team
[2018-03-07] MEDS: DAPTOMYCIN 400 MG in SODIUM CHLORIDE 50 ML IVPB SCH (16:45)
[2018-03-08] MEDS: VANCOMYCIN 250 MG/5 ML ORAL SOLUTION GT SCH ×4 (05:46→23:35)
[2018-03-08] MEDS: SODIUM CHLORIDE 0.9%/KCL 20 MEQ/1,000 ML INFUS.BAG IV SCH ×2 (05:47→16:57)
[2018-03-08] MEDS: AMINO ACIDS/PROTEIN HYDROLYS 30 ML LIQUID.PKT GT SCH ×2 (09:42→16:56)
--- NOTE | 2018-03-08 09:44 | PN ---
Progress Note (short form) - Note Progress Note: No acute events overnight. Remains afebrile. Breathing non-labored. Intake & Output 03/05/18 03/06/18 03/07/18 03/08/18 23:59 23:59 23:59 23:59 Intake Total 8972 6296 4402 Balance 3325 2846 4451 Last Vital Signs Temp Pulse Resp BP Pulse Ox 97.9 F 80 18 116/68 100 03/08/18 05:29 03/08/18 05:29 03/08/18 05:29 03/08/18 05:29 03/07/18 21:00 Active Medications Acetaminophen (Tylenol Oral Solution -) 650 mg GT Q6H PRN PRN Reason: FEVER Last Admin: 02/26/18 23:45 Dose: 650 mg Amino Acids (Prosource No Carb Liquid Pkt) 30 ml GT BIDWM [facility] Last Admin: 03/08/18 09:42 Dose: 30 ml Aspirin (Asa -) 81 mg GT DAILY [facility] Last Admin: 03/07/18 10:38 Dose: 81 mg Daptomycin 400 mg/ Sodium (Chloride) 50 mls @ 100 mls/hr IVPB DAILY@1300 [facility] Last Admin: 03/07/18 16:45 Dose: 100 mls/hr Potassium Chloride/Sodium Chloride (Ns+20 Meq Kcl -) 20 meq in 1,000 mls @ 101 mls/hr IV ASDIR [facility] Last Admin: 03/08/18 05:47 Dose: 101 mls/hr Metronidazole (Flagyl 500mg Premixed Ivpb -) 500 mg in 100 mls @ 100 mls/hr IVPB Q8H-IV [facility] Last Admin: 03/08/18 02:49 Dose: 100 mls/hr Lacosamide (Vimpat Liquid -) 200 mg GT BID [facility] Last Admin: 03/07/18 21:47 Dose: 200 mg Levetiracetam (Keppra Oral Solution -) 1,000 mg GT BID [facility] Last Admin: 03/07/18 21:47 Dose: 1,000 mg Metoprolol Tartrate (Lopressor -) 12.5 mg PEG BID [facility] Last Admin: 03/07/18 21:47 Dose: Not Given Valproate Sodium (Depakene -) 1,250 mg GT BID [facility] Last Admin: 03/07/18 21:47 Dose: 1,250 mg Vancomycin HCl (Vancomycin Oral Solution) 250 mg GT Q6HPO [facility] Last Admin: 03/08/18 05:46 Dose: 250 mg Gen: NAD Heart: RRR Lung: decreased breath sounds at the bases Abd: softly distended, nontender Ext: no edema Problem List - Problems (1) Bacteremia Code(s): R78.81 - BACTEREMIA (2) Severe sepsis Code(s): A41.9 - SEPSIS, UNSPECIFIED ORGANISM; R65.20 - SEVERE SEPSIS WITHOUT SEPTIC SHOCK (3) Lactic acidosis Code(s): E87.2 - ACIDOSIS (4) Failure to thrive in adult Code(s): R62.7 - ADULT FAILURE TO THRIVE (5) Functional quadriplegia Code(s): R53.2 - FUNCTIONAL QUADRIPLEGIA (6) HLD (hyperlipidemia) Code(s): E78.5 - HYPERLIPIDEMIA, UNSPECIFIED (7) HTN (hypertension) Code(s): I10 - ESSENTIAL (PRIMARY) HYPERTENSION A/P Polymicrobial Bacteremia C Diff Colitis Severe Sepsis Lactic Acidosis r/o Pneumonia h/o CVA HTN Hyperlipidemia Seizure Disorder - ABX per ID - Aspiration precautions - O2 to keep SpO2 >90% - VTE prophylaxis Dr Early
[2018-03-08] MEDS ORDERED: PT OWN MED DRAWER 7, Y5N ONE ×2 (09:49→22:17)
[2018-03-08] MEDS: ASPIRIN 81 MG CHEWABLE TABLETS GT SCH (09:55)
[2018-03-08] MEDS: METOPROLOL TARTRATE 25 MG TABLET (FP) PEG SCH ×2 (09:55→22:30)
[2018-03-08] MEDS: VALPROATE SODIUM 250 MG/5 ML UNIT DOSE CUP GT SCH ×2 (09:57→22:23)
[2018-03-08] MEDS: Lacosamide 50 MG/5 ML ORAL SOLUTION UNIT CUPS GT SCH ×2 (09:58→22:25)
[2018-03-08] MEDS: levETIRAcetam 500 MG/5 ML ORAL SOLUTION (UNIT-DOSE CUPS) GT SCH ×2 (09:58→22:24)
--- NOTE | 2018-03-08 12:42 | PN ---
Progress Note (short form) - Note Progress Note: Progress Note: Pt seen/ examined feels well denies abd pain today FUA noted afebrile + diarrhea. Vital Signs - 24 hr 03/07/18 03/07/18 03/07/18 13:36 18:00 21:00 Temperature 98.4 F 97.6 F Pulse Rate 70 72 Respiratory 18 18 18 Rate Blood Pressure 93/63 116/92 O2 Sat by Pulse 100 Oximetry (%) 03/07/18 03/08/18 03/08/18 22:00 01:37 05:29 Temperature 98.1 F 98.2 F 97.9 F Pulse Rate 78 85 80 Respiratory 18 18 18 Rate Blood Pressure 95/64 132/82 116/68 O2 Sat by Pulse Oximetry (%) 03/08/18 09:54 Temperature 98.4 F Pulse Rate 78 Respiratory 18 Rate Blood Pressure 113/67 O2 Sat by Pulse Oximetry (%) Current Medications Generic Name Dose Route Start Last Admin Trade Name Freq PRN Reason Stop Dose Admin Acetaminophen 650 mg 02/26/18 21:21 02/26/18 23:45 Tylenol Oral Solution - GT 650 mg Q6H PRN Administration FEVER Amino Acids 30 ml 02/27/18 08:00 03/08/18 09:42 Prosource No Carb Liquid Pkt GT 30 ml BIDWM [facility] Administration Aspirin 81 mg 02/27/18 10:00 03/08/18 09:55 Asa - GT 81 mg DAILY [facility] Administration Daptomycin 400 mg/ Sodium 50 mls @ 100 mls/hr 03/01/18 13:00 03/07/18 16:45 Chloride IVPB 100 mls/hr DAILY@1300 [facility] Administration Potassium Chloride/Sodium Chloride 20 meq in 1,000 mls @ 101 mls/hr 03/04/18 11:17 03/08/18 05:47 Ns+20 Meq Kcl - IV 101 mls/hr ASDIR [facility] Administration Metronidazole 500 mg in 100 mls @ 100 mls/hr 03/06/18 11:30 03/08/18 09:56 Flagyl 500mg Premixed Ivpb - IVPB 100 mls/hr Q8H-IV [facility] Administration Lacosamide 200 mg 02/26/18 22:00 03/08/18 09:58 Vimpat Liquid - GT 200 mg BID [facility] Administration Levetiracetam 1,000 mg 02/26/18 22:00 03/08/18 09:58 Keppra Oral Solution - GT 1,000 mg BID [facility] Administration Metoprolol Tartrate 12.5 mg 02/26/18 22:00 03/08/18 09:55 Lopressor - PEG 12.5 mg BID [facility] Administration Valproate Sodium 1,250 mg 02/26/18 22:00 03/08/18 09:57 Depakene - GT 1,250 mg BID [facility] Administration Vancomycin HCl 250 mg 02/27/18 00:00 03/08/18 05:46 Vancomycin Oral Solution GT 250 mg Q6HPO [facility] Administration Physical exam HEENT: Yes: wnl Neck: Yes: Supple, Trachea Midline. No jvd. Cardiovascular: Yes: S1, S2 rrr. Respiratory: Yes: Diminished (decreased breath sounds at the bases) Gastrointestinal: Yes: Normal Bowel Sounds, Soft. No: Tenderness. Peg+ extremities--- no edema. neuro--awake. Problem List - Problems (1) Bacteremia Code(s): R78.81 - BACTEREMIA (2) Severe sepsis Code(s): A41.9 - SEPSIS, UNSPECIFIED ORGANISM; R65.20 - SEVERE SEPSIS WITHOUT SEPTIC SHOCK (3) Lactic acidosis Code(s): E87.2 - ACIDOSIS (4) Failure to thrive in adult Code(s): R62.7 - ADULT FAILURE TO THRIVE (5) Functional quadriplegia Code(s): R53.2 - FUNCTIONAL QUADRIPLEGIA (6) HLD (hyperlipidemia) Code(s): E78.5 - HYPERLIPIDEMIA, UNSPECIFIED (7) HTN (hypertension) Code(s): I10 - ESSENTIAL (PRIMARY) HYPERTENSION Assessment/Plan Sepsis Lactic Acidosis Cdiff colitis dementia h/o CVA HTN Hyperlipidemia Seizure Disorder clinically stable. continue abx. antibiotics per ID fua - noted pt has no guicho at [facility] site she has diarrhea Continue present care contact precautions in place
--- NOTE | 2018-03-08 13:18 | PN ---
Progress Note, Physician History of Present Illness: stable no complaints still with dirrhoea - Current Medication List Current Medications: Active Medications Acetaminophen (Tylenol Oral Solution -) 650 mg GT Q6H PRN PRN Reason: FEVER Last Admin: 02/26/18 23:45 Dose: 650 mg Amino Acids (Prosource No Carb Liquid Pkt) 30 ml GT BIDWM [facility] Last Admin: 03/08/18 09:42 Dose: 30 ml Aspirin (Asa -) 81 mg GT DAILY [facility] Last Admin: 03/08/18 09:55 Dose: 81 mg Daptomycin 400 mg/ Sodium (Chloride) 50 mls @ 100 mls/hr IVPB DAILY@1300 [facility] Last Admin: 03/07/18 16:45 Dose: 100 mls/hr Potassium Chloride/Sodium Chloride (Ns+20 Meq Kcl -) 20 meq in 1,000 mls @ 101 mls/hr IV ASDIR [facility] Last Admin: 03/08/18 05:47 Dose: 101 mls/hr Metronidazole (Flagyl 500mg Premixed Ivpb -) 500 mg in 100 mls @ 100 mls/hr IVPB Q8H-IV [facility] Last Admin: 03/08/18 09:56 Dose: 100 mls/hr Lacosamide (Vimpat Liquid -) 200 mg GT BID [facility] Last Admin: 03/08/18 09:58 Dose: 200 mg Levetiracetam (Keppra Oral Solution -) 1,000 mg GT BID [facility] Last Admin: 03/08/18 09:58 Dose: 1,000 mg Metoprolol Tartrate (Lopressor -) 12.5 mg PEG BID [facility] Last Admin: 03/08/18 09:55 Dose: 12.5 mg Valproate Sodium (Depakene -) 1,250 mg GT BID [facility] Last Admin: 03/08/18 09:57 Dose: 1,250 mg Vancomycin HCl (Vancomycin Oral Solution) 250 mg GT Q6HPO [facility] Last Admin: 03/08/18 12:45 Dose: 250 mg - Objective Vital Signs: Vital Signs Temperature 98.4 F 03/08/18 09:54 Pulse Rate 78 03/08/18 09:54 Respiratory Rate 18 03/08/18 09:54 Blood Pressure 113/67 03/08/18 09:54 O2 Sat by Pulse Oximetry (%) 100 03/07/18 21:00 Constitutional: Yes: No Distress, Calm Cardiovascular: Yes: S1, S2 Respiratory: Yes: Regular, CTA Bilaterally Gastrointestinal: Yes: Normal Bowel Sounds, Soft Musculoskeletal: Yes: WNL Neurological: Yes: Alert Psychiatric: Yes: Alert Labs: CBC, BMP 03/05/18 06:34 03/05/18 06:34 INR, PTT INR 1.19 (0.82-1.09) H 02/26/18 16:24 Assessment/Plan patient coming in with sepsis and bacteremia Problem List - Problems (1) Bacteremia Code(s): R78.81 - BACTEREMIA (2) Severe sepsis Code(s): A41.9 - SEPSIS, UNSPECIFIED ORGANISM; R65.20 - SEVERE SEPSIS WITHOUT SEPTIC SHOCK (3) Lactic acidosis Code(s): E87.2 - ACIDOSIS (4) Failure to thrive in adult Code(s): R62.7 - ADULT FAILURE TO THRIVE (5) Functional quadriplegia Code(s): R53.2 - FUNCTIONAL QUADRIPLEGIA (6) HLD (hyperlipidemia) Code(s): E78.5 - HYPERLIPIDEMIA, UNSPECIFIED (7) HTN (hypertension) Code(s): I10 - ESSENTIAL (PRIMARY) HYPERTENSION cdiff Assessment/Plan continue current mgmt continue abx monitor dirrhoea rest as per the team will stop abx after tomorrows dose continue oral vanco though
[2018-03-08] MEDS: DAPTOMYCIN 400 MG in SODIUM CHLORIDE 50 ML IVPB SCH (13:22)
[2018-03-09] MEDS: VANCOMYCIN 250 MG/5 ML ORAL SOLUTION GT SCH ×3 (06:11→17:05)
[2018-03-09] MEDS: AMINO ACIDS/PROTEIN HYDROLYS 30 ML LIQUID.PKT GT SCH ×2 (08:02→16:57)
--- NOTE | 2018-03-09 09:39 | PN ---
Progress Note (short form) - Note Progress Note: No acute events overnight. Remains afebrile. Breathing non-labored. Intake & Output 03/06/18 03/07/18 03/08/18 03/09/18 23:59 23:59 23:59 23:59 Intake Total 4706 4424 2505 2070 Output Total 900 Balance 4706 4424 1605 2070 Last Vital Signs Temp Pulse Resp BP Pulse Ox 98.3 F 79 20 114/66 98 03/09/18 06:04 03/09/18 06:04 03/09/18 06:04 03/09/18 06:04 03/08/18 21:00 Active Medications Acetaminophen (Tylenol Oral Solution -) 650 mg GT Q6H PRN PRN Reason: FEVER Last Admin: 02/26/18 23:45 Dose: 650 mg Amino Acids (Prosource No Carb Liquid Pkt) 30 ml GT BIDWM [facility] Last Admin: 03/09/18 08:02 Dose: 30 ml Aspirin (Asa -) 81 mg GT DAILY [facility] Last Admin: 03/08/18 09:55 Dose: 81 mg Daptomycin 400 mg/ Sodium (Chloride) 50 mls @ 100 mls/hr IVPB DAILY@1300 [facility] Last Admin: 03/08/18 13:22 Dose: 100 mls/hr Potassium Chloride/Sodium Chloride (Ns+20 Meq Kcl -) 20 meq in 1,000 mls @ 101 mls/hr IV ASDIR [facility] Last Admin: 03/08/18 16:57 Dose: 101 mls/hr Metronidazole (Flagyl 500mg Premixed Ivpb -) 500 mg in 100 mls @ 100 mls/hr IVPB Q8H-IV [facility] Last Admin: 03/09/18 02:14 Dose: 100 mls/hr Lacosamide (Vimpat Liquid -) 200 mg GT BID [facility] Last Admin: 03/08/18 22:25 Dose: 200 mg Levetiracetam (Keppra Oral Solution -) 1,000 mg GT BID [facility] Last Admin: 03/08/18 22:24 Dose: 1,000 mg Metoprolol Tartrate (Lopressor -) 12.5 mg PEG BID [facility] Last Admin: 03/08/18 22:30 Dose: Not Given Valproate Sodium (Depakene -) 1,250 mg GT BID [facility] Last Admin: 03/08/18 22:23 Dose: 1,250 mg Vancomycin HCl (Vancomycin Oral Solution) 250 mg GT Q6HPO [facility] Last Admin: 03/09/18 06:11 Dose: 250 mg Gen: NAD Heart: RRR Lung: decreased breath sounds at the bases Abd: softly distended, nontender Ext: no edema Problem List - Problems (1) Bacteremia Code(s): R78.81 - BACTEREMIA (2) Severe sepsis Code(s): A41.9 - SEPSIS, UNSPECIFIED ORGANISM; R65.20 - SEVERE SEPSIS WITHOUT SEPTIC SHOCK (3) Lactic acidosis Code(s): E87.2 - ACIDOSIS (4) Failure to thrive in adult Code(s): R62.7 - ADULT FAILURE TO THRIVE (5) Functional quadriplegia Code(s): R53.2 - FUNCTIONAL QUADRIPLEGIA (6) HLD (hyperlipidemia) Code(s): E78.5 - HYPERLIPIDEMIA, UNSPECIFIED (7) HTN (hypertension) Code(s): I10 - ESSENTIAL (PRIMARY) HYPERTENSION A/P Polymicrobial Bacteremia C Diff Colitis Severe Sepsis Lactic Acidosis Low clinical suspicion of Pneumonia h/o CVA HTN Hyperlipidemia Seizure Disorder - ABX per ID - Aspiration precautions - O2 to keep SpO2 >90% - VTE prophylaxis - No Pulmonary contraindication for D/C Dr Early
[2018-03-09] MEDS: ASPIRIN 81 MG CHEWABLE TABLETS GT SCH (11:05)
[2018-03-09] MEDS: METOPROLOL TARTRATE 25 MG TABLET (FP) PEG SCH ×2 (11:05→21:23)
[2018-03-09] MEDS: levETIRAcetam 500 MG/5 ML ORAL SOLUTION (UNIT-DOSE CUPS) GT SCH ×2 (11:09→21:20)
[2018-03-09] MEDS: VALPROATE SODIUM 250 MG/5 ML UNIT DOSE CUP GT SCH ×2 (11:09→21:21)
--- NOTE | 2018-03-09 11:38 | PN ---
Progress Note (short form) - Note Progress Note: Progress Note: Pt seen/ examined feels well denies abd pain today no diarrhea Vital Signs - 24 hr 03/09/18 03/09/18 03/09/18 06:04 09:00 11:00 Temperature 98.3 F 98.3 F Pulse Rate 79 77 Respiratory 20 20 Rate Blood Pressure 114/66 112/65 O2 Sat by Pulse 97 Oximetry (%) 03/09/18 03/09/18 03/09/18 15:21 18:00 19:00 Temperature 98.6 F 97.8 F 98.4 F Pulse Rate 68 88 70 Respiratory 22 20 20 Rate Blood Pressure 110/62 124/84 117/62 O2 Sat by Pulse Oximetry (%) Current Medications Generic Name Dose Route Start Last Admin Trade Name Freq PRN Reason Stop Dose Admin Acetaminophen 650 mg 02/26/18 21:21 02/26/18 23:45 Tylenol Oral Solution - GT 650 mg Q6H PRN Administration FEVER Amino Acids 30 ml 02/27/18 08:00 03/08/18 09:42 Prosource No Carb Liquid Pkt GT 30 ml BIDWM [facility] Administration Aspirin 81 mg 02/27/18 10:00 03/08/18 09:55 Asa - GT 81 mg DAILY [facility] Administration Daptomycin 400 mg/ Sodium 50 mls @ 100 mls/hr 03/01/18 13:00 03/07/18 16:45 Chloride IVPB 100 mls/hr DAILY@1300 [facility] Administration Potassium Chloride/Sodium Chloride 20 meq in 1,000 mls @ 101 mls/hr 03/04/18 11:17 03/08/18 05:47 Ns+20 Meq Kcl - IV 101 mls/hr ASDIR [facility] Administration Metronidazole 500 mg in 100 mls @ 100 mls/hr 03/06/18 11:30 03/08/18 09:56 Flagyl 500mg Premixed Ivpb - IVPB 100 mls/hr Q8H-IV [facility] Administration Lacosamide 200 mg 02/26/18 22:00 03/08/18 09:58 Vimpat Liquid - GT 200 mg BID [facility] Administration Levetiracetam 1,000 mg 02/26/18 22:00 03/08/18 09:58 Keppra Oral Solution - GT 1,000 mg BID [facility] Administration Metoprolol Tartrate 12.5 mg 02/26/18 22:00 03/08/18 09:55 Lopressor - PEG 12.5 mg BID [facility] Administration Valproate Sodium 1,250 mg 02/26/18 22:00 03/08/18 09:57 Depakene - GT 1,250 mg BID [facility] Administration Vancomycin HCl 250 mg 02/27/18 00:00 03/08/18 05:46 Vancomycin Oral Solution GT 250 mg Q6HPO [facility] Administration Physical exam HEENT: Yes: wnl Neck: Yes: Supple, Trachea Midline. No jvd. Cardiovascular: Yes: S1, S2 rrr. Respiratory: Yes: Diminished (decreased breath sounds at the bases) Gastrointestinal: Yes: Normal Bowel Sounds, Soft. No: Tenderness. Peg+ extremities--- no edema. neuro--awake. Problem List - Problems (1) Bacteremia Code(s): R78.81 - BACTEREMIA (2) Severe sepsis Code(s): A41.9 - SEPSIS, UNSPECIFIED ORGANISM; R65.20 - SEVERE SEPSIS WITHOUT SEPTIC SHOCK (3) Lactic acidosis Code(s): E87.2 - ACIDOSIS (4) Failure to thrive in adult Code(s): R62.7 - ADULT FAILURE TO THRIVE (5) Functional quadriplegia Code(s): R53.2 - FUNCTIONAL QUADRIPLEGIA (6) HLD (hyperlipidemia) Code(s): E78.5 - HYPERLIPIDEMIA, UNSPECIFIED (7) HTN (hypertension) Code(s): I10 - ESSENTIAL (PRIMARY) HYPERTENSION Assessment/Plan Sepsis Lactic Acidosis Cdiff colitis dementia h/o CVA HTN Hyperlipidemia Seizure Disorder clinically stable. continue abx.- last dose dapto today per ID dc plan for AM if afebrile- will need to complete po vanco and Flagyl Continue present care contact precautions in place
[2018-03-09] MEDS: Lacosamide 50 MG/5 ML ORAL SOLUTION UNIT CUPS GT SCH ×2 (11:57→21:19)
--- NOTE | 2018-03-09 13:34 | PN ---
Progress Note, Physician History of Present Illness: doing well no issues - Current Medication List Current Medications: Active Medications Acetaminophen (Tylenol Oral Solution -) 650 mg GT Q6H PRN PRN Reason: FEVER Last Admin: 02/26/18 23:45 Dose: 650 mg Amino Acids (Prosource No Carb Liquid Pkt) 30 ml GT BIDWM [facility] Last Admin: 03/09/18 08:02 Dose: 30 ml Aspirin (Asa -) 81 mg GT DAILY [facility] Last Admin: 03/09/18 11:05 Dose: 81 mg Daptomycin 400 mg/ Sodium (Chloride) 50 mls @ 100 mls/hr IVPB DAILY@1300 [facility] Last Admin: 03/08/18 13:22 Dose: 100 mls/hr Potassium Chloride/Sodium Chloride (Ns+20 Meq Kcl -) 20 meq in 1,000 mls @ 101 mls/hr IV ASDIR [facility] Last Admin: 03/08/18 16:57 Dose: 101 mls/hr Metronidazole (Flagyl 500mg Premixed Ivpb -) 500 mg in 100 mls @ 100 mls/hr IVPB Q8H-IV [facility] Last Admin: 03/09/18 11:06 Dose: 100 mls/hr Lacosamide (Vimpat Liquid -) 200 mg GT BID [facility] Last Admin: 03/09/18 11:57 Dose: 200 mg Levetiracetam (Keppra Oral Solution -) 1,000 mg GT BID [facility] Last Admin: 03/09/18 11:09 Dose: 1,000 mg Metoprolol Tartrate (Lopressor -) 12.5 mg PEG BID [facility] Last Admin: 03/09/18 11:05 Dose: 12.5 mg Valproate Sodium (Depakene -) 1,250 mg GT BID [facility] Last Admin: 03/09/18 11:09 Dose: 1,250 mg Vancomycin HCl (Vancomycin Oral Solution) 250 mg GT Q6HPO [facility] Last Admin: 03/09/18 11:06 Dose: 250 mg - Objective Vital Signs: Vital Signs Temperature 98.3 F 03/09/18 11:00 Pulse Rate 77 03/09/18 11:00 Respiratory Rate 20 03/09/18 11:00 Blood Pressure 112/65 03/09/18 11:00 O2 Sat by Pulse Oximetry (%) 97 03/09/18 09:00 Constitutional: Yes: No Distress, Calm Eyes: Yes: Conjunctiva Clear Cardiovascular: Yes: Regular Rate and Rhythm Respiratory: Yes: Regular, CTA Bilaterally Gastrointestinal: Yes: Normal Bowel Sounds, Soft Musculoskeletal: Yes: WNL Extremities: Yes: WNL Labs: CBC, BMP 03/05/18 06:34 03/05/18 06:34 INR, PTT INR 1.19 (0.82-1.09) H 02/26/18 16:24 Assessment/Plan patient coming in with sepsis and bacteremia Problem List - Problems (1) Bacteremia Code(s): R78.81 - BACTEREMIA (2) Severe sepsis Code(s): A41.9 - SEPSIS, UNSPECIFIED ORGANISM; R65.20 - SEVERE SEPSIS WITHOUT SEPTIC SHOCK (3) Lactic acidosis Code(s): E87.2 - ACIDOSIS (4) Failure to thrive in adult Code(s): R62.7 - ADULT FAILURE TO THRIVE (5) Functional quadriplegia Code(s): R53.2 - FUNCTIONAL QUADRIPLEGIA (6) HLD (hyperlipidemia) Code(s): E78.5 - HYPERLIPIDEMIA, UNSPECIFIED (7) HTN (hypertension) Code(s): I10 - ESSENTIAL (PRIMARY) HYPERTENSION cdiff Assessment/Plan continue current mgmt continue vanco as planned monitor dirrhoea rest as per the team
[2018-03-09] MEDS: DAPTOMYCIN 400 MG in SODIUM CHLORIDE 50 ML IVPB SCH (14:36)
[2018-03-09] MEDS: SODIUM CHLORIDE 0.9%/KCL 20 MEQ/1,000 ML INFUS.BAG IV SCH (16:17)
[2018-03-09] MEDS ORDERED: PT OWN MED DRAWER 7, Y5N ONE (20:17)
[2018-03-10] MEDS: VANCOMYCIN 250 MG/5 ML ORAL SOLUTION GT SCH ×3 (00:51→13:51)
[2018-03-10] MEDS: SODIUM CHLORIDE 0.9%/KCL 20 MEQ/1,000 ML INFUS.BAG IV SCH ×2 (03:21→13:52)
[2018-03-10] MEDS: metroNIDAZOLE 250 MG TABLET PEG SCH ×2 (05:21→13:51)
[2018-03-10] MEDS ORDERED: PT OWN MED DRAWER 7, Y5N ONE (08:47)
--- NOTE | 2018-03-10 09:30 | PN ---
Progress Note (short form) - Note Progress Note: No acute events overnight. Remains afebrile. Breathing non-labored. Intake & Output 03/07/18 03/08/18 03/09/18 03/10/18 23:59 23:59 23:59 23:59 Intake Total 4424 2505 2069 2109 Output Total 900 Balance 4424 1605 2069 2109 Last Vital Signs Temp Pulse Resp BP Pulse Ox 98.9 F 73 20 98/63 97 03/10/18 05:15 03/10/18 05:15 03/10/18 05:15 03/10/18 05:15 03/09/18 21:00 Active Medications Acetaminophen (Tylenol Oral Solution -) 650 mg GT Q6H PRN PRN Reason: FEVER Last Admin: 02/26/18 23:45 Dose: 650 mg Amino Acids (Prosource No Carb Liquid Pkt) 30 ml GT BIDWM [facility] Last Admin: 03/09/18 16:57 Dose: 30 ml Aspirin (Asa -) 81 mg GT DAILY [facility] Last Admin: 03/09/18 11:05 Dose: 81 mg Potassium Chloride/Sodium Chloride (Ns+20 Meq Kcl -) 20 meq in 1,000 mls @ 101 mls/hr IV ASDIR [facility] Last Admin: 03/10/18 03:21 Dose: 101 mls/hr Lacosamide (Vimpat Liquid -) 200 mg GT BID [facility] Last Admin: 03/09/18 21:19 Dose: 200 mg Levetiracetam (Keppra Oral Solution -) 1,000 mg GT BID [facility] Last Admin: 03/09/18 21:20 Dose: 1,000 mg Metoprolol Tartrate (Lopressor -) 12.5 mg PEG BID [facility] Last Admin: 03/09/18 21:23 Dose: 12.5 mg Metronidazole (Flagyl -) 500 mg PEG TID [facility] Last Admin: 03/10/18 05:21 Dose: 500 mg Valproate Sodium (Depakene -) 1,250 mg GT BID [facility] Last Admin: 03/09/18 21:21 Dose: 1,250 mg Vancomycin HCl (Vancomycin Oral Solution) 250 mg GT Q6HPO [facility] Last Admin: 03/10/18 05:21 Dose: 250 mg Gen: NAD Heart: RRR Lung: decreased breath sounds at the bases Abd: softly distended, nontender Ext: no edema Problem List - Problems (1) Bacteremia Code(s): R78.81 - BACTEREMIA (2) Severe sepsis Code(s): A41.9 - SEPSIS, UNSPECIFIED ORGANISM; R65.20 - SEVERE SEPSIS WITHOUT SEPTIC SHOCK (3) Lactic acidosis Code(s): E87.2 - ACIDOSIS (4) Failure to thrive in adult Code(s): R62.7 - ADULT FAILURE TO THRIVE (5) Functional quadriplegia Code(s): R53.2 - FUNCTIONAL QUADRIPLEGIA (6) HLD (hyperlipidemia) Code(s): E78.5 - HYPERLIPIDEMIA, UNSPECIFIED (7) HTN (hypertension) Code(s): I10 - ESSENTIAL (PRIMARY) HYPERTENSION A/P Polymicrobial Bacteremia C Diff Colitis Severe Sepsis Lactic Acidosis Low clinical suspicion of Pneumonia h/o CVA HTN Hyperlipidemia Seizure Disorder - ABX per ID - Aspiration precautions - O2 to keep SpO2 >90% - VTE prophylaxis - No Pulmonary contraindication for D/C Dr Early
[2018-03-10] MEDS: AMINO ACIDS/PROTEIN HYDROLYS 30 ML LIQUID.PKT GT SCH (09:32)
[2018-03-10] MEDS: METOPROLOL TARTRATE 25 MG TABLET (FP) PEG SCH (09:32)
[2018-03-10] MEDS: levETIRAcetam 500 MG/5 ML ORAL SOLUTION (UNIT-DOSE CUPS) GT SCH (09:33)
[2018-03-10] MEDS: VALPROATE SODIUM 250 MG/5 ML UNIT DOSE CUP GT SCH (09:34)
[2018-03-10] MEDS: ASPIRIN 81 MG CHEWABLE TABLETS GT SCH (09:34)
[2018-03-10] MEDS: Lacosamide 50 MG/5 ML ORAL SOLUTION UNIT CUPS GT SCH (09:34)
[2018-03-10 10:06] VITALS: TEMP 98
--- NOTE | 2018-03-10 10:18 | DS ---
Physical Examination Vital Signs: Vital Signs Temperature 98 F 03/10/18 10:04 Pulse Rate 77 03/10/18 10:04 Respiratory Rate 18 03/10/18 10:04 Blood Pressure 104/73 03/10/18 10:04 O2 Sat by Pulse Oximetry (%) 97 03/09/18 21:00 Findings/Remarks: patient seen and examined. Feels well. Alert and awake. Diarrhea significantly improved. Afebrile Chart reviewed Constitutional: Yes: No Distress, Calm Eyes: Yes: Conjunctiva Clear Neck: Yes: Supple Cardiovascular: Yes: Regular Rate and Rhythm Gastrointestinal: Yes: Soft, Other (peg +) Edema: No Neurological: Yes: Alert Psychiatric: Yes: Alert Labs: CBC, BMP 03/05/18 06:34 03/05/18 06:34 Discharge Summary Reason For Visit: SEPSIS Current Active Problems Bacteremia (Acute) Clostridium difficile diarrhea (Acute) Lactic acidosis (Acute) Sepsis (Acute) Hospital Course: Admission records Patient is a 67 year old female with a significant past medical history of hypertension, hyperlipidemia, seizure disorder, epilepsy, frequent UTIs, sepsis , anemia, TIAs dysphasia with peg tube and CVA. She is sent from [facility] for fevers and hypotension. Patient is non verbal at baseline and unable to provide history. Per ED signout, patient was found to have fevers and low BP by [facility] staff and sent in for evaluation. On arrival to the ED, patient was found to be in severe sepsis with tachycardia (120s), fever (102f), leukocytosis (22.8), hypoxia requiring NRB mask and lactic acidosis (3.7). Vancomycin, Zosyn was given in ED and ID has been consulted for further antibiotic therapy. patient admitted to the floor positive blood cultures--Clostridia and enterococcus C. difficile also positive Treated with antibiotics--- daptomycin and by mouth vancomycin Due to diarrhea--- IV Flagyl was also added later on repeat cultures negative Patient clinically improved significantly Diarrhea also significantly improved Now stable for discharge I discussed with ID Will discharge on by mouth Vanco and Flagyl for 1 more week Medications reconciled and discussed with nursing staff also Discharge today back to [facility] Condition: Improved - Instructions [facility]position: [facility] - Home Medications Comprehensive Discharge Medication List: Ambulatory Orders Aspirin [ASA -] 81 mg PO DAILY 30 Days tab.chew 10/27/17 Acetaminophen 325 mg PO Q4H 09/22/17 Amino Acids/Protein Hydrolys [Prosource No Carb Liquid Pkt] 30 ml PO BID Enoxaparin [Lovenox -] 40 mg SQ DAILY 09/22/17 Metoprolol Tartrate 25 mg PO BID 09/22/17 Valproate Na [Depakene] 250 mg GT BID 09/22/17 Vit A/Vitamin D3/E/Aloe V/Zinc [Periguard Ointment] 5 gm TP DAILY 09/22/17 Atorvastatin Ca [Lipitor] 40 mg GT HS 12/11/17 Lacosamide Liquid [Vimpat Liquid -] 10 mg GT BID 12/11/17 Valproate Sodium Liquid [Depakene Oral Solution -] 1,250 mg GT BID 12/11/17 Zinc Oxide 20% Topical Oint 454 gm NR TID 12/11/17 levETIRAcetam [Keppra Oral Solution -] 500 mg GT BID 12/11/17 Albuterol 0.083% Nebulizer Hanane [Ventolin 0.083% Nebulizer Soln -] 1 amp NEB Q4H PRN amp 12/24/17 Chlorhexidine Gluconate [Hibiclens For Decolonization -] 1 applic TP HS bottle 12/24/17 Vancomycin Oral Solution 250 mg GT Q6HPO #28 ml MDD 4 03/10/18 metroNIDAZOLE [Flagyl -] 500 mg PEG TID #28 tablet 03/10/18
--- NOTE | 2018-03-10 10:43 | PN ---
Progress Note, Physician History of Present Illness: stable no new issues off of abx still with some loose stools - Current Medication List Current Medications: Active Medications Acetaminophen (Tylenol Oral Solution -) 650 mg GT Q6H PRN PRN Reason: FEVER Last Admin: 02/26/18 23:45 Dose: 650 mg Amino Acids (Prosource No Carb Liquid Pkt) 30 ml GT BIDWM [facility] Last Admin: 03/10/18 09:32 Dose: 30 ml Aspirin (Asa -) 81 mg GT DAILY [facility] Last Admin: 03/10/18 09:34 Dose: 81 mg Potassium Chloride/Sodium Chloride (Ns+20 Meq Kcl -) 20 meq in 1,000 mls @ 101 mls/hr IV ASDIR [facility] Last Admin: 03/10/18 03:21 Dose: 101 mls/hr Lacosamide (Vimpat Liquid -) 200 mg GT BID [facility] Last Admin: 03/10/18 09:34 Dose: 200 mg Levetiracetam (Keppra Oral Solution -) 1,000 mg GT BID [facility] Last Admin: 03/10/18 09:33 Dose: 1,000 mg Metoprolol Tartrate (Lopressor -) 12.5 mg PEG BID [facility] Last Admin: 03/10/18 09:32 Dose: 12.5 mg Metronidazole (Flagyl -) 500 mg PEG TID [facility] Last Admin: 03/10/18 05:21 Dose: 500 mg Valproate Sodium (Depakene -) 1,250 mg GT BID [facility] Last Admin: 03/10/18 09:34 Dose: 1,250 mg Vancomycin HCl (Vancomycin Oral Solution) 250 mg GT Q6HPO [facility] Last Admin: 03/10/18 05:21 Dose: 250 mg - Objective Vital Signs: Vital Signs Temperature 98 F 03/10/18 10:04 Pulse Rate 77 03/10/18 10:04 Respiratory Rate 18 03/10/18 10:04 Blood Pressure 104/73 03/10/18 10:04 O2 Sat by Pulse Oximetry (%) 97 03/09/18 21:00 Constitutional: Yes: No Distress, Calm Cardiovascular: Yes: Regular Rate and Rhythm Respiratory: Yes: Regular, CTA Bilaterally Gastrointestinal: Yes: Normal Bowel Sounds, Soft Musculoskeletal: Yes: WNL Extremities: Yes: WNL Neurological: Yes: Alert Psychiatric: Yes: Alert Labs: CBC, BMP 03/05/18 06:34 08/05/18 06:34 INR, PTT INR 1.19 (0.82-1.09) H 02/26/18 16:24 Assessment/Plan patient coming in with sepsis and bacteremia Problem List - Problems (1) Bacteremia Code(s): R78.81 - BACTEREMIA (2) Severe sepsis Code(s): A41.9 - SEPSIS, UNSPECIFIED ORGANISM; R65.20 - SEVERE SEPSIS WITHOUT SEPTIC SHOCK (3) Lactic acidosis Code(s): E87.2 - ACIDOSIS (4) Failure to thrive in adult Code(s): R62.7 - ADULT FAILURE TO THRIVE (5) Functional quadriplegia Code(s): R53.2 - FUNCTIONAL QUADRIPLEGIA (6) HLD (hyperlipidemia) Code(s): E78.5 - HYPERLIPIDEMIA, UNSPECIFIED (7) HTN (hypertension) Code(s): I10 - ESSENTIAL (PRIMARY) HYPERTENSION cdiff Assessment/Plan continue current mgmt continue vanco as planned monitor dirrhoea rest as per the team
[2018-03-10 13:34] VITALS: BP 141/68; PULSE 75
== END 2018-03-10 14:17 | DRG 720 ==
LOC: JER 14:55 → JERBED 18:12 → J7W 23:20
PROVIDERS: ADMIT Internal Medicine; ATTEND Internal Medicine
DX: A41.9 Sepsis, unspecified organism (principal); R65.20 Severe sepsis without septic shock; J96.01 Acute respiratory failure with hypoxia; A04.72 Enterocolitis due to Clostridium difficile, not specified as recurrent; R53.2 Functional quadriplegia; I95.9 Hypotension, unspecified; E87.2 Acidosis; R13.10 Dysphagia, unspecified; R62.7 Adult failure to thrive; Z93.1 Gastrostomy status; E87.5 Hyperkalemia; I10 Essential (primary) hypertension; F03.90 Unspecified dementia, unspecified severity, without behavioral disturbance, psychotic disturbance, mood disturbance, and anxiety; D64.9 Anemia, unspecified; G40.909 Epilepsy, unspecified, not intractable, without status epilepticus; Z86.73 Personal history of transient ischemic attack (TIA), and cerebral infarction without residual deficits; F32.9 Major depressive disorder, single episode, unspecified; K59.00 Constipation, unspecified; Z85.118 Personal history of other malignant neoplasm of bronchus and lung; Z74.01 Bed confinement status; E78.5 Hyperlipidemia, unspecified
CPT/HCPCS: 36415; 71045-TC-FY; 74018-TC-FY; 80048; 80053; 80164; 81003; 82803; 83605; 83735; 84484; 85025; 85027; 85610; 85730; 87040; 87076; 87086; 87186; 87324; 87449; 93005; 93010; 94640; 99284-25; J0131; J0878; J7030; J7620

== ENCOUNTER 2018-04-12 07:33 | Inpatient (IN) | payer OTHER ==
[2018-04-12] MEDS ORDERED: SODIUM CHLORIDE 1,000 ML IV STA (07:37)
[2018-04-12] MEDS ORDERED: VANCOMYCIN 1,500 MG in DEXTROSE 5%-WATER - 500 ML IVPB ONE (08:11)
--- NOTE | 2018-04-12 08:11 | PDOC ---
History of Present Illness - History of Present Illness Initial Comments: The patient is a 67 year old female with a PMHx of hypertension, hyperlipidemia , seizure disorder, epilepsy, GERD, frequent UTIs, sepsis, anemia, TIAs dysphagia with peg tube and CVA, who was BIBA from [facility] presenting with subjective fever, elevated blood pressure, altered mental status, and suspected SEPSIS. As per EMS, patient was hypotensive, tachycardic to 107, with a blood glucose of 147. Allergies: NKDA <Diane Cottrell - Last Filed: 04/12/18 09:33> <Clayton Sims - Last Filed: 04/12/18 17:14> - General Chief Complaint: Altered Mental Status Stated Complaint: SEPSIS Time Seen by Provider: 04/12/18 07:36 Past History <Diane Cottrell - Last Filed: 04/12/18 09:33> - Past Medical History Anemia: No Asthma: Yes Cancer: No Cardiac Disorders: No CVA: Yes COPD: No CHF: No Dementia: Yes Diabetes: No GI Disorders: Yes (constipation, peg tube) Disorders: Yes (UTI) HTN: Yes Hypercholesterolemia: Yes Liver Disease: No Psychiatric Problems: Yes (depressive disorders) Seizures: Yes Thyroid Disease: No Lung CA: Yes (depression,) - Surgical History Abdominal Surgery: No Appendectomy: No Cardiac Surgery: No Cholecystectomy: No GI Surgery: Yes (gtube insertion) Lung Surgery: No Neurologic Surgery: No Orthopedic Surgery: No - Suicide/Smoking/Psychosocial Hx Smoking History: Unknown if ever smoked Have you smoked in the past 12 months: No Information on smoking cessation initiated: No Hx Alcohol Use: No Drug/Substance Use Hx: No Substance Use Type: None Hx Substance Use Treatment: No (unknown) <Clayton Sims - Last Filed: 04/12/18 17:14> - Past Medical History Allergies/Adverse Reactions: Allergies Allergy/AdvReac Type Severity Reaction Status Date / Time No Known Allergies Allergy Verified 04/12/18 07:50 Home Medications: Ambulatory Orders Aspirin [ASA -] 81 mg PO DAILY 30 Days tab.chew 05/27/17 Acetaminophen 325 mg PO Q4H 09/22/17 Amino Acids/Protein Hydrolys [Prosource No Carb Liquid Pkt] 30 ml PO BID Enoxaparin [Lovenox -] 40 mg SQ DAILY 09/22/17 Metoprolol Tartrate 25 mg PO BID 09/22/17 Valproate Na [Depakene] 250 mg GT BID 09/22/17 Vit A/Vitamin D3/E/Aloe V/Zinc [Periguard Ointment] 5 gm TP DAILY 09/22/17 Atorvastatin Ca [Lipitor] 40 mg GT HS 12/11/17 Lacosamide Liquid [Vimpat Liquid -] 10 mg GT BID 12/11/17 Valproate Sodium Liquid [Depakene Oral Solution -] 1,250 mg GT BID 12/11/17 Zinc Oxide 20% Topical Oint 454 gm NR TID 12/11/17 levETIRAcetam [Keppra Oral Solution -] 500 mg GT BID 12/11/17 Albuterol 0.083% Nebulizer Hanane [Ventolin 0.083% Nebulizer Soln -] 1 amp NEB Q4H PRN amp 12/24/17 Chlorhexidine Gluconate [Hibiclens For Decolonization -] 1 applic TP HS bottle 12/24/17 metroNIDAZOLE [Flagyl -] 500 mg PEG TID #28 tablet 03/10/18 Review of Systems - Review of Systems Able to Perform ROS?: No (altered mental status) <Diane Cottrell - Last Filed: 04/12/18 09:33> *Physical Exam - Vital Signs Last Vital Signs Temp Pulse Resp BP Pulse Ox 100.4 F H 104 H 20 85/63 100 04/12/18 07:36 04/12/18 07:36 04/12/18 07:36 04/12/18 07:36 04/12/18 07:36 <Diane Cottrell - Last Filed: 04/12/18 09:33> - Vital Signs Last Vital Signs Temp Pulse Resp BP Pulse Ox 100.4 F H 104 H 20 85/63 100 04/12/18 07:36 04/12/18 07:36 04/12/18 07:36 04/12/18 07:36 04/12/18 07:36 - Physical Exam Comments: 04/12/18 09:45 Patient seen on arrival. Initial evaluation: EXAMINATION CONSTITUTIONAL: Awake, mumbling incoherently, frail-appearing, HEAD: Normocephalic; atraumatic EYES: PERRL; + left ptosis is noted ENMT: With flattening of the right nasolabial fold; mucous membranes are dry tongue is coated NECK: Supple; no JVD, no carotid bruits CARD: Tachycardic; Normal S1, S2; no murmurs, rubs, or gallops RESP: Normal chest excursion with respiration; coarse breath sounds bilaterally ABD: Soft, non-distended; non-tender; + G-tube in the left upper quadrant; no palpable organomegaly, no palpable hernias EXT: No obvious deformity; non-tender to palpation; distal pulses intact SKIN: Warm, dry, no petechia NEURO: Awake, mumbling incoherently, does not follow commands,grimaces to painful stimuli; flaccid paralysis on the right; hypertonicity is noted on the left; <Clayton Sims - Last Filed: 04/12/18 17:14> ED Treatment Course - LABORATORY CBC & Chemistry Diagram: 04/12/18 07:45 04/12/18 07:45 - Consult/PCP Time Called: 09:33 (Paged service for Dr. Kellen Mendiola) <Diane Cottrell - Last Filed: 04/12/18 09:33> - LABORATORY CBC & Chemistry Diagram: 04/12/18 10:18 04/12/18 15:45 - RADIOLOGY Radiology Studies Ordered: Category Date Time Status CHEST X-RAY PORTABLE* [RAD] Stat Radiology 04/12/18 07:37 Ordered <Clayton Sims - Last Filed: 04/12/18 17:14> Medical Decision Making - Critical Care Time Total Critical Care Time (minutes): 75 Critical Care Statement: The care of this patient involved high complexity decision making to prevent further life threatening deterioration of the patient 's condition and/or to evaluate & treat vital organ system(s) failure or risk of failure. - Medical Decision Making 04/12/18 08:10 Patient evaluated immediately upon arrival. Detailed H&P to follow. Patient is presenting with fever, hypotension and altered mental status. Sepsis is suspected. We will panculture. We'll administer antipyretics, we'll initiate fluid resuscitation and broad-spectrum antibiotic coverage. Chest x-ray to rule out pneumonia. Likely admission. 04/12/18 09:36 67-year-old female with multiple comorbidities, a phasic from previous CVA, history of recurrent urosepsis and C. difficile pseudomembranous colitis treated with by G-tube vancomycin now and G-tube Flagyl presents to the ER with altered mental status fever of 100.4 and hypotension. On initial evaluation, patient is noted to mumble incoherently, does not follow commands, grimace to painful stimuli. Coarse breath sounds are noted bilaterally. Abdomen is soft nondistended bowel sounds are present in all 4 quadrants. No sacral decubiti ulcers are noted. There is no lower extremity edema or evidence of soft tissue infection. Patient pancultured. Handy catheter placed for measurement of urine output. Fluid resuscitation initiated with normal saline. Antipyretics administered. Vancomycin and Zosyn also administered for suspected sepsis. Lactic acid obtained. 04/12/18 10:11 Patient reassessed. Blood pressure has improved to 110/62 after administration of 2 L of normal saline. Will initiate a D5 half normal saline drip at 150 mL an hour for the treatment of hypernatremia. CBC reveals leukocytosis of 16,000. CMP reveals NICOLÁS with elevated BUN and creatinine compared to baseline as well as severe hypernatremia. Chest x-ray reveals no evidence of infiltrate or effusion. Urinalysis reveals no evidence of significant pyuria. Lactic acid is elevated 3.6. Will admit to the ICU for suspected sepsis and hypernatremia. Will consult infectious disease. <Clayton Sims - Last Filed: 04/12/18 17:14> *DC/Admit/Observation/Transfer - Attestations Scribe Attestion: 04/12/18 08:33 Documentation prepared by Diane Cottrell, acting as medical coding instructor for Clayton Sims MD. <Diane Cottrell - Last Filed: 04/12/18 09:33> - Discharge Dispostion Decision to Admit order: Yes <Clayton Sims - Last Filed: 04/12/18 17:14> Diagnosis at time of Disposition: Hypernatremia Sepsis Qualifiers: Sepsis type: sepsis due to unspecified organism Qualified Code(s): A41.9 - Sepsis, unspecified organism - Discharge Dispostion Condition at time of disposition: Critical
[2018-04-12] MEDS ORDERED: PIPERACILLIN/TAZOB 3.375 GM 3.375 GM in DEXTROSE 5%-WATER - 50 ML IVPB ONE (08:12)
[2018-04-12 08:22] LABS: BASO % 0.2 % (0-2.0); EOS % 0.4 % (0-4.5); HEMATOCRIT 37.3 % (32.4-45.2); HEMOGLOBIN 11.5 GM/dL (10.7-15.3); LYMPH % 15.3 % (8-40); MCHC 30.9 g/dl (32.0-36.0); MEAN CELL VOLUME 90.7 fl (80-96); MEAN PLT VOLUME 12.4 fl (7.5-11.1); MONO % 5.5 % (3.8-10.2); NEUT % 78.6 % (42.8-82.8); PLATELET COUNT 81 K/MM3 (134-434); RBC 4.11 M/mm3 (3.60-5.2); RDW 19.3 % (11.6-15.6); WHITE BLOOD COUNT 16.6 K/mm3 (4.0-10.0)
[2018-04-12] MEDS ORDERED: VANCOMYCIN 1 GRAM (PRE-DOCKED) 1,000 MG/250 ML BAG IVPB ONE (08:24)
[2018-04-12] MEDS ORDERED: PIPERACILLIN/TAZOB 3.375 GM 3.375 GM/50 ML BAG IVPB ONE (08:24)
[2018-04-12 08:36] LABS: URINE APPEARANCE CLEAR; URINE BILIRUBIN NEGATIVE (<2.0 mg/dL); URINE COLOR AMBER; URINE GLUCOSE (UA) NEGATIVE (NEGATIVE); URINE KETONE NEGATIVE (NEGATIVE); URINE LEUK ESTERASE TRACE (NEGATIVE); URINE NITRITE NEGATIVE (NEGATIVE); URINE PROTEIN NEGATIVE (NEGATIVE); URINE UROBILINOGEN NEGATIVE mg/dL (0.2-1.0); VENOUS PC02 60.5 mmHg (38-52); VENOUS PH 7.37 (7.32-7.42); VENOUS PO2 20.9 mmHg (28-48)
[2018-04-12 08:39] LABS: EPI CELLS RARE /HPF (FEW); URINE HYALINE CAST 5 /lpf; URINE MUCUS RARE
[2018-04-12 08:43] LABS: INR 1.28 (0.83-1.09); PROTHROMBIN TIME (PATIENT) 14.5 SEC (9.7-13.0)
[2018-04-12 08:45] LABS: ACTIVATED PTT 30.3 SECONDS (25.2-36.5)
[2018-04-12 09:05] LABS: ALBUMIN 2.5 g/dl (3.4-5.0); ALK PHOS 78 U/L (45-117); ANION GAP 1 MMOL/L (8-16); BILIRUBIN,TOTAL 0.3 mg/dL (0.2-1.0); BLOOD UREA NITROGEN 54 mg/dL (7-18); CALCIUM 8.5 mg/dL (8.5-10.1); CHLORIDE 137 mmol/L (98-107); CO2 38 mmol/L (21-32); CREATININE 1.5 mg/dL (0.55-1.02); GLUCOSE,RANDOM 130 mg/dL (74-106); POTASSIUM 3.6 mmol/L (3.5-5.1); SGOT/AST 20 U/L (15-37); SGPT/ALT 15 U/L (12-78); TOT PROT 7.1 g/dl (6.4-8.2)
[2018-04-12 09:08] LABS: SODIUM 176 mmol/L (136-145)
[2018-04-12 09:30] LABS: ARTERIAL BLD GAS O2 SATURATION 96.9 % (90-98.9); ARTERIAL BLOOD GAS BASE EXCESS 5.6 meq/l (-2-2); ARTERIAL BLOOD GAS PCO2 45.8 mmHg (35-45); ARTERIAL BLOOD GAS PO2 88.7 mmHg (80-100); ARTERIAL BLOOD GAS pH 7.43 (7.35-7.45)
[2018-04-12] MEDS ORDERED: DEXTROSE 5%-0.45% SALINE 1,000 ML IV SCH (09:30)
[2018-04-12 09:37] LABS: ALLENS TEST POSITIVE
[2018-04-12] MEDS ORDERED: metroNIDAZOLE 250 MG TABLET GT ONE (09:53)
[2018-04-12] MEDS ORDERED: metroNIDAZOLE 250 MG TABLET ONE (10:06)
[2018-04-12] MEDS ORDERED: VANCOMYCIN 500 MG VIAL (RESTRICTED TO ID ONLY) ONE (10:07)
[2018-04-12 10:29] LABS: BASO % 0.2 % (0-2.0); EOS % 0.2 % (0-4.5); HEMATOCRIT 31.7 % (32.4-45.2); HEMOGLOBIN 9.9 GM/dL (10.7-15.3); LYMPH % 14.8 % (8-40); MCH 28.2 pg (25.7-33.7); MCHC 31.1 g/dl (32.0-36.0); MEAN CELL VOLUME 90.7 fl (80-96); MEAN PLT VOLUME 11.7 fl (7.5-11.1); MONO % 7.3 % (3.8-10.2); NEUT % 77.5 % (42.8-82.8); PLATELET COUNT 73 K/MM3 (134-434); RDW 19.1 % (11.6-15.6); WHITE BLOOD COUNT 16.2 K/mm3 (4.0-10.0)
--- NOTE | 2018-04-12 10:40 | HP ---
Admitting History and Physical - Primary Care Physician PCP: Lyndon Akbar (s) - Admission Chief Complaint: sepsis History of Present Illness: History of Present Illness - History of Present Illness Initial Comments: The patient is a 67 year old female with a PMHx of hypertension, hyperlipidemia , seizure disorder, epilepsy, GERD, frequent UTIs, sepsis, anemia, TIAs dysphagia with peg tube and CVA, who was BIBA from [facility] presenting with subjective fever, elevated blood pressure, altered mental status, and suspected SEPSIS. As per EMS, patient was hypotensive, tachycardic to 107, with a blood glucose of 147. Allergies: NKDA Pt Seen by me in ER- Usually awake and alert and conversant-- today she is lethargic. In the ER- Found to have sodium of 176, acute renal failure , elevated WBC Given Vanco and Zosyn in ER. Pt was recently admitted here for sepsis, Cdiff-- was discharged on flagyl History Source: Medical Record, Transfer Record Limitations to Obtaining History: Poor Historian - Past Medical History Cardiovascular: Yes: HTN, Hyperlipdemia Gastrointestinal: Yes: Other (dysphagia, s/p peg) - Smoking History Smoking history: Unknown if ever smoked Have you smoked in the past 12 months: No - Alcohol/Substance Use Hx Alcohol Use: No Home Medications - Allergies Allergies/Adverse Reactions: Allergies Allergy/AdvReac Type Severity Reaction Status Date / Time No Known Allergies Allergy Verified 04/12/18 07:50 - Home Medications Home Medications: Ambulatory Orders RX: Aspirin [ASA -] 81 mg PO DAILY 30 Days tab.chew 05/27/17 RX: Acetaminophen 325 mg PO Q4H 09/22/17 RX: Amino Acids/Protein Hydrolys [Prosource No Carb Liquid Pkt] 30 ml PO BID RX: Enoxaparin [Lovenox -] 40 mg SQ DAILY 09/22/17 RX: Metoprolol Tartrate 25 mg PO BID 09/22/17 RX: Valproate Na [Depakene] 250 mg GT BID 09/22/17 RX: Vit A/Vitamin D3/E/Aloe V/Zinc [Periguard Ointment] 5 gm TP DAILY 09/22/17 RX: Atorvastatin Ca [Lipitor] 40 mg GT HS 12/11/17 RX: Lacosamide Liquid [Vimpat Liquid -] 10 mg GT BID 12/11/17 RX: Valproate Sodium Liquid [Depakene Oral Solution -] 1,250 mg GT BID 12/11/17 RX: Zinc Oxide 20% Topical Oint 454 gm NR TID 12/11/17 RX: levETIRAcetam [Keppra Oral Solution -] 500 mg GT BID 12/11/17 RX: Albuterol 0.083% Nebulizer Hanane [Ventolin 0.083% Nebulizer Soln -] 1 amp NEB Q4H PRN amp 12/24/17 RX: Chlorhexidine Gluconate [Hibiclens For Decolonization -] 1 applic TP HS bottle 12/24/17 RX: metroNIDAZOLE [Flagyl -] 500 mg PEG TID #28 tablet 03/10/18 Review of Systems Unable to obtain ROS, reason: poor historian - Review of Systems Constitutional: denies: Chills Physical Examination Vital Signs: Vital Signs Temperature 100.4 F H 04/12/18 07:36 Pulse Rate 94 H 04/12/18 10:30 Respiratory Rate 20 04/12/18 10:30 Blood Pressure 110/64 04/12/18 10:30 O2 Sat by Pulse Oximetry (%) 100 04/12/18 10:30 Constitutional: Yes: No Distress Cardiovascular: Yes: Regular Rate and Rhythm Respiratory: Yes: Diminished Gastrointestinal: Yes: Normal Bowel Sounds, Soft, Other (GT+). No: Distention, Tenderness Edema: No Labs: CBC, BMP 04/12/18 10:18 Imaging - Results Chest X-ray: Image Reviewed (no infiltrate) EKG: Image Reviewed (sinus tachycardia) Assessment/Plan Septic shock Severe dehydration/hypernatremia acute renal failure PLAN IV fluids received 2 liters of fluids in ER-- repeat sodium admit to ICU spoke with ICU resident IV antibiotics per ID Renal consult increase free water prognosis guarded
[2018-04-12 10:49] LABS: ANION GAP 7 MMOL/L (8-16); BLOOD UREA NITROGEN 49 mg/dL (7-18); CALCIUM 8.2 mg/dL (8.5-10.1); CHLORIDE 142 mmol/L (98-107); CO2 31 mmol/L (21-32); CREATININE 1.3 mg/dL (0.55-1.02); GLUCOSE,RANDOM 192 mg/dL (74-106); MAGNESIUM 2.8 mg/dL (1.8-2.4); PHOSPHOROUS 3.1 mg/dL (2.5-4.9); POTASSIUM 4.1 mmol/L (3.5-5.1)
[2018-04-12 10:52] LABS: SODIUM 180 mmol/L (136-145)
--- NOTE | 2018-04-12 11:08 | CON.ID ---
Consult - History of Present Illness History of Present Illness: Asked to evaluate this 67 y.o. female NH resident with PMH of CVA, HTN, HLD, Anemia, dysphagia s/p peg admitted and treated one month ago for Sepsis due to VRE/Clostridium bacteremia and C. difficile colitis. Bacteremia resolved, clinical improvement was seen and pt was discharged on antibiotics. Pt brought to ER now with AMS, hypotension, fever (100.4F), leukocytosis (16K), hypernatremia with elevated BUN/Creatinine. She has been started on IV fluids with improvement in blood pressure but lactic acid level is trending upwards. At bedside pt is arousable without acute distress but weak. No recent respiratory distress reported and no episodes of loose BMs noted. 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 Cardio/Vascular: Yes: HTN, Hyperlipdemia Heme/Onc: Yes: Anemia Infectious Disease: Yes: C-Diff - Alcohol/Substance Use Hx Alcohol Use: No - Smoking History Smoking history: Unknown if ever smoked Have you smoked in the past 12 months: No - Social History Usual Living Arrangement: [facility] History of Recent Travel: No Home Medications - Allergies Allergies/Adverse Reactions: Allergies Allergy/AdvReac Type Severity Reaction Status Date / Time No Known Allergies Allergy Verified 04/12/18 07:50 - Home Medications Home Medications: Ambulatory Orders Aspirin [ASA -] 81 mg PO DAILY 30 Days tab.chew 05/27/17 Acetaminophen 325 mg PO Q4H 09/22/17 Amino Acids/Protein Hydrolys [Prosource No Carb Liquid Pkt] 30 ml PO BID Enoxaparin [Lovenox -] 40 mg SQ DAILY 09/22/17 Metoprolol Tartrate 25 mg PO BID 09/22/17 Valproate Na [Depakene] 250 mg GT BID 09/22/17 Vit A/Vitamin D3/E/Aloe V/Zinc [Periguard Ointment] 5 gm TP DAILY 09/22/17 Atorvastatin Ca [Lipitor] 40 mg GT HS 12/11/17 Lacosamide Liquid [Vimpat Liquid -] 10 mg GT BID 12/11/17 Valproate Sodium Liquid [Depakene Oral Solution -] 1,250 mg GT BID 12/11/17 Zinc Oxide 20% Topical Oint 454 gm NR TID 12/11/17 levETIRAcetam [Keppra Oral Solution -] 500 mg GT BID 12/11/17 Albuterol 0.083% Nebulizer Hanane [Ventolin 0.083% Nebulizer Soln -] 1 amp NEB Q4H PRN amp 12/24/17 Chlorhexidine Gluconate [Hibiclens For Decolonization -] 1 applic TP HS bottle 12/24/17 Vancomycin Oral Solution 250 mg GT Q6HPO #28 ml MDD 4 03/10/18 metroNIDAZOLE [Flagyl -] 500 mg PEG TID #28 tablet 03/10/18 Physical Exam Vital Signs: Vital Signs Temperature 100.4 F H 04/12/18 07:36 Pulse Rate 94 H 04/12/18 10:30 Respiratory Rate 20 04/12/18 10:30 Blood Pressure 110/64 04/12/18 10:30 O2 Sat by Pulse Oximetry (%) 100 04/12/18 10:30 Constitutional: Yes: No Distress, Calm, Other (easily arousable) HENT: Yes: Atraumatic Neck: Yes: Supple Cardiovascular: Yes: Tachycardia Respiratory: Yes: Other (poor inspiratory effort, no r/r/w noted) Gastrointestinal: Yes: Normal Bowel Sounds, Soft, Other (peg) Renal/: Yes: Handy Present (clear, yellow urine) Musculoskeletal: Yes: WNL Extremities: Yes: WNL Edema: No Integumentary: Yes: WNL Neurological: Yes: Weakness Labs: CBC, BMP 04/12/18 10:18 04/12/18 10:18 Laboratory Tests 04/12/18 04/12/18 04/12/18 07:45 07:45 07:45 WBC 16.6 H RBC 4.11 Hgb 11.5 Hct 37.3 D MCV 90.7 MCH 28.0 MCHC 30.9 L RDW 19.3 H Plt Count 81 L D MPV 12.4 H D Absolute Neuts (auto) 13.0 H Neutrophils % 78.6 D Lymphocytes % 15.3 D Monocytes % 5.5 Eosinophils % 0.4 D Basophils % 0.2 Nucleated RBC % 0 PT with INR 14.50 H INR 1.28 H PTT (Actin FS) 30.3 Anticoagulation Therapy Puncture Site ABG pH ABG pCO2 at Pt Temp ABG pO2 at Pt Temp ABG HCO3 ABG O2 Sat (Measured) ABG O2 Content ABG Base Excess Amando Test VBG pH POC VBG pCO2 POC VBG pO2 Mixed VBG HCO3 O2 Delivery Device Oxygen Flow Rate Vent Mode Vent Rate Mechanical Rate Pressure Support Vent Sodium Potassium Chloride Carbon Dioxide Anion Gap BUN Creatinine Creat Clearance w eGFR Random Glucose Lactic Acid Calcium Phosphorus Magnesium Total Bilirubin AST ALT Alkaline Phosphatase Creatine Kinase Troponin I Total Protein Albumin Urine Color Radha Urine Appearance Clear Urine pH 5.0 Ur Specific [place] 1.021 Urine Protein Negative Urine Glucose (UA) Negative Urine Ketones Negative Urine Blood Negative Urine Nitrite Negative Urine Bilirubin Negative Urine Urobilinogen Negative Ur Leukocyte Esterase Trace Urine WBC (Auto) 2 Urine RBC (Auto) 1 Ur Epithelial Cells Rare Hyaline Casts 5 Urine Mucus Rare 04/12/18 04/12/18 04/12/18 07:45 07:45 07:45 WBC RBC Hgb Hct MCV MCH MCHC RDW Plt Count MPV Absolute Neuts (auto) Neutrophils % Lymphocytes % Monocytes % Eosinophils % Basophils % Nucleated RBC % PT with INR INR PTT (Actin FS) Anticoagulation Therapy Puncture Site ABG pH ABG pCO2 at Pt Temp ABG pO2 at Pt Temp ABG HCO3 ABG O2 Sat (Measured) ABG O2 Content ABG Base Excess Amando Test VBG pH 7.37 POC VBG pCO2 60.5 H* POC VBG pO2 20.9 L Mixed VBG HCO3 33.9 H O2 Delivery Device Oxygen Flow Rate Vent Mode Vent Rate Mechanical Rate Pressure Support Vent Sodium 176 H* Potassium 3.6 Chloride 137 H Carbon Dioxide 38 H Anion Gap 1 L BUN 54 H Creatinine 1.5 H Creat Clearance w eGFR 34.85 Random Glucose 130 H Lactic Acid 3.6 H* Calcium 8.5 Phosphorus Magnesium Total Bilirubin 0.3 AST 20 ALT 15 Alkaline Phosphatase 78 Creatine Kinase Troponin I < 0.02 Total Protein 7.1 Albumin 2.5 L Urine Color Urine Appearance Urine pH Ur Specific [place] Urine Protein Urine Glucose (UA) Urine Ketones Urine Blood Urine Nitrite Urine Bilirubin Urine Urobilinogen Ur Leukocyte Esterase Urine WBC (Auto) Urine RBC (Auto) Ur Epithelial Cells Hyaline Casts Urine Mucus 04/12/18 04/12/18 04/12/18 07:45 09:10 09:33 WBC RBC Hgb Hct MCV MCH MCHC RDW Plt Count MPV Absolute Neuts (auto) Neutrophils % Lymphocytes % Monocytes % Eosinophils % Basophils % Nucleated RBC % PT with INR INR PTT (Actin FS) Anticoagulation Therapy No Result Required. Puncture Site Right radial ABG pH 7.43 ABG pCO2 at Pt Temp 45.8 H D ABG pO2 at Pt Temp 88.7 ABG HCO3 30.2 H ABG O2 Sat (Measured) 96.9 ABG O2 Content 14.3 L ABG Base Excess 5.6 H Amando Test Positive VBG pH POC VBG pCO2 POC VBG pO2 Mixed VBG HCO3 O2 Delivery Device Nasal cannula Oxygen Flow Rate 3l Vent Mode No Result Required. Vent Rate No Result Required. Mechanical Rate No Result Required. Pressure Support Vent No Result Required. Sodium Potassium Chloride Carbon Dioxide Anion Gap BUN Creatinine Creat Clearance w eGFR Random Glucose Lactic Acid 4.8 H* Calcium Phosphorus Magnesium Total Bilirubin AST ALT Alkaline Phosphatase Creatine Kinase Troponin I Cancelled Total Protein Albumin Urine Color Urine Appearance Urine pH Ur Specific [place] Urine Protein Urine Glucose (UA) Urine Ketones Urine Blood Urine Nitrite Urine Bilirubin Urine Urobilinogen Ur Leukocyte Esterase Urine WBC (Auto) Urine RBC (Auto) Ur Epithelial Cells Hyaline Casts Urine Mucus 04/12/18 04/12/18 04/12/18 10:18 10:18 10:18 WBC 16.2 H RBC 3.50 L Hgb 9.9 L Hct 31.7 L D MCV 90.7 MCH 28.2 MCHC 31.1 L RDW 19.1 H Plt Count 73 L MPV 11.7 H Absolute Neuts (auto) 12.6 H Neutrophils % 77.5 Lymphocytes % 14.8 Monocytes % 7.3 Eosinophils % 0.2 Basophils % 0.2 Nucleated RBC % 0 PT with INR INR PTT (Actin FS) Anticoagulation Therapy Puncture Site ABG pH ABG pCO2 at Pt Temp ABG pO2 at Pt Temp ABG HCO3 ABG O2 Sat (Measured) ABG O2 Content ABG Base Excess Amando Test VBG pH POC VBG pCO2 POC VBG pO2 Mixed VBG HCO3 O2 Delivery Device Oxygen Flow Rate Vent Mode Vent Rate Mechanical Rate Pressure Support Vent Sodium 180 H* Potassium 4.1 Chloride 142 H Carbon Dioxide 31 Anion Gap 7 L BUN 49 H Creatinine 1.3 H Creat Clearance w eGFR 41.11 Random Glucose 192 H Lactic Acid Calcium 8.2 L Phosphorus 3.1 Magnesium 2.8 H Total Bilirubin AST ALT Alkaline Phosphatase Creatine Kinase Cancelled Troponin I Total Protein Albumin Urine Color Urine Appearance Urine pH Ur Specific [place] Urine Protein Urine Glucose (UA) Urine Ketones Urine Blood Urine Nitrite Urine Bilirubin Urine Urobilinogen Ur Leukocyte Esterase Urine WBC (Auto) Urine RBC (Auto) Ur Epithelial Cells Hyaline Casts Urine Mucus Lactate: 4.8 Imaging - Results Chest X-ray: Report Reviewed (no acute infiltrates) Problem List - Problems (1) Hypernatremia Code(s): E87.0 - HYPEROSMOLALITY AND HYPERNATREMIA (2) Sepsis Code(s): A41.9 - SEPSIS, UNSPECIFIED ORGANISM Qualifiers: Sepsis type: sepsis due to unspecified organism Qualified Code(s): A41.9 - Sepsis, unspecified organism (3) NICOLÁS (acute kidney injury) Code(s): N17.9 - ACUTE KIDNEY FAILURE, UNSPECIFIED (4) Anemia Code(s): D64.9 - ANEMIA, UNSPECIFIED Qualifiers: Anemia type: unspecified type Qualified Code(s): D64.9 - Anemia, unspecified (5) CVA (cerebral vascular accident) Code(s): I63.9 - CEREBRAL INFARCTION, UNSPECIFIED Qualifiers: CVA mechanism: unspecified Qualified Code(s): I63.9 - Cerebral infarction, unspecified (6) Clostridium difficile diarrhea Code(s): A04.72 - ENTEROCOLITIS D/T CLOSTRIDIUM DIFFICILE, NOT SPCF RECUR (7) Failure to thrive in adult Code(s): R62.7 - ADULT FAILURE TO THRIVE (8) HLD (hyperlipidemia) Code(s): E78.5 - HYPERLIPIDEMIA, UNSPECIFIED (9) HTN (hypertension) Code(s): I10 - ESSENTIAL (PRIMARY) HYPERTENSION (10) Lactic acidosis Code(s): E87.2 - ACIDOSIS (11) Seizure Code(s): R56.9 - UNSPECIFIED CONVULSIONS Assessment/Plan 67 y.o. female with PMH of HTN, HLD, CVA, dysphagia/peg, seizure d.o., treated recently for sepsis due to VRE/Clostridium bacteremia and C. difficile colitis presenting with AMS, hypotension, hypernatremia, fever, leukocytosis, elevated lactic acid. Hospital records/imaging/labs reviewed Severe Sepsis R/O bacteremia AMS Fever Leukocytosis NICOLÁS Lactic acidosis History of VRE/Clostridium bacteremia C. difficile Colitis Seizure d.o. CVA -- continue Zosyn IV, (s/p 1 dose Vancomycin) -- will start Daptomycin IV, one Dose of Diflucan IV -- Vancomycin via peg to continue -- Blood cultures ordered -- check cpk level, repeat lactic acid -- IV fluid hydration as tolerable -- monitor wbc trend, temperatures -- rest of care per ICU will f/u Thank you cc time: 45 min
--- NOTE | 2018-04-12 11:48 | EKG ---
Test Reason : Blood Pressure : / mmHG Vent. Rate : 104 BPM Atrial Rate : 104 BPM P-R Int : 130 ms QRS Dur : 060 ms QT Int : 408 ms P-R-T Axes : 077 014 062 degrees QTc Int : 536 ms SINUS TACHYCARDIA NONSPECIFIC ST ABNORMALITY PROLONGED QT ABNORMAL ECG WHEN COMPARED WITH ECG OF 26-FEB-2018 16:03, NO SIGNIFICANT CHANGE WAS FOUND Confirmed by ANDREW BAIRES MD ([id number]) on 04/12/2018 11:48:16 AM Referred By: Confirmed By:ANDREW BAIRES MD
[2018-04-12] MEDS ORDERED: FLUCONAZOLE 200 MG/D5W 100 ML IVPB ONE (12:00)
[2018-04-12] MEDS ORDERED: SODIUM CHLORIDE 0.45% 1,000 ML IV SCH (12:30)
[2018-04-12 13:12] LABS: ANION GAP 1 MMOL/L (8-16); BLOOD UREA NITROGEN 47 mg/dL (7-18); CALCIUM 8.1 mg/dL (8.5-10.1); CHLORIDE 137 mmol/L (98-107); CO2 35 mmol/L (21-32); CREATININE 1.3 mg/dL (0.55-1.02); GLUCOSE,RANDOM 177 mg/dL (74-106); POTASSIUM 3.9 mmol/L (3.5-5.1)
--- NOTE | 2018-04-12 13:21 | PN ---
Teaching Attending Note Name of Resident: Mateo Valentin ATTENDING PHYSICIAN STATEMENT I saw and evaluated the patient. I reviewed the resident's note and discussed the case with the resident. I agree with the resident's findings and plan as documented. SUBJECTIVE: Pt seen and examined in the ICU. Briefly, 67yo female with h/o HTN, hyperlipidemia, seizure disorder, h/o CVA, dementia, recent hospitalizations for recurrent C diff colitis who was [facility] the [facility] for altered mental status and fevers. Hypotensive, tachycardic in the ER, given IVF , antibiotics, transferred to the ICU for further monitoring. Found to be severely hypernatremic to 180 with acute renal failure. OBJECTIVE: Vital Signs Period Temp Pulse Resp BP Sys/Levine Pulse Ox Last 24 Hr 98.8 F-100.4 F 90-104 19-24 79-110/52-78 94-100 Intake & Output 04/09/18 04/10/18 04/11/18 04/12/18 23:59 23:59 23:59 23:59 Intake Total 3600 Output Total 200 Balance 3400 Weight 60 kg Gen: lethargic, tachypneic Heart: tachycardic, regular Lung: decreased breath sounds at the bases Abd: softly distended, nontender Ext: no edema CBC, BMP 04/12/18 10:18 04/12/18 12:40 Active Medications Albuterol Sulfate (Ventolin 0.083% Nebulizer Soln -) 1 amp NEB Q4H PRN PRN Reason: SHORT OF BREATH/WHEEZING Aspirin (Asa -) 81 mg PO DAILY CLEMENTE Atorvastatin Calcium (Lipitor -) 40 mg GT HS CLEMENTE Chlorhexidine Gluconate (Hibiclens For Decolonization -) 1 applic TP HS CLEMENTE Chlorhexidine Gluconate (Hibiclens For Decolonization -) 1 applic TP HS CLEMENTE Heparin Sodium (Porcine) (Heparin -) 5,000 unit SQ BID CLEMENTE Piperacillin Sod/Tazobactam (Sod 4.5 gm/ Dextrose) 100 mls @ 200 mls/hr IVPB Q6H-IV CLEMENTE; Protocol Daptomycin 360 mg/ Sodium (Chloride) 50 mls @ 50 mls/hr IVPB DAILY CLEMENTE; Protocol Sodium Chloride (Normal Saline -) 1,000 mls @ 150 mls/hr IV ASDIR CLEMENTE Last Admin: 04/12/18 13:31 Dose: 150 mls/hr Levetiracetam (Keppra Oral Solution -) 500 mg GT BID [facility] Mupirocin (Bactroban Ointment (For Decolonization) -) 1 applic NS BID [facility] Stop: 04/17/18 21:59 Non-Formulary Medication (Lacosamide Liquid) 10 mg GT BID [facility] Non-Formulary Medication (Valproate Na [Depakene]) 250 mg GT BID [facility] Non-Formulary Medication (Vit A/Vitamin D3/E/Aloe V/Zinc [Periguard Ointment]) 5 gm TP DAILY [facility] Non-Formulary Medication (Zinc Oxide 20% Topical Oint) 454 gm NR TID [facility] Vancomycin HCl (Vancomycin Oral Solution) 250 mg PEG Q6HPO [facility] ASSESSMENT AND PLAN: Severe Sepsis r/o Recurrent C Diff Colitis Severe Hypernatremia Acute Kidney Injury Lactic Acidosis Thrombocytopenia h/o CVA Seizure Disorder Dementia - antibiotics per ID - f/u cultures - IVF resuscitation - monitor urine output, creatinine - trend lactate - continue antiepileptics - aspiration precautions - O2 to keep SpO2 >90% - continue ICU monitoring critical care time spent in reviewing chart, evaluating patient and formulating plan 35 min
[2018-04-12 13:25] LABS: SODIUM 173 mmol/L (136-145)
--- NOTE | 2018-04-12 13:25 | CONSULT ---
Consult - text type - Consultation Consultation Note: Renal Consult for NICOLÁS/Severe Hypernatremia This is a 67 year old woman with Hx of CVA, Hypertension, Anemia, Dysphagia, recent VRE/Cdiff who presented with AMS/Fever and admitted for sepsis syndrome with NICOLÁS and hypernatremia. Pt is awake and alert in the ICU but not able to provide history. Temp was 100.4 in the ED. Handy inserted with 200 cc urine output. G tube in place. PMhx: as above Allergies: NKDA Family Hx: NC Social Hx: No T/A/D ROS: unable to obtain because of clinical status Home Medications Medication Instructions Recorded Aspirin [ASA -] 81 mg PO DAILY 30 Days tab.chew 05/27/17 Acetaminophen 325 mg PO Q4H 09/22/17 Amino Acids/Protein Hydrolys 30 ml PO BID 09/22/17 [Prosource No Carb Liquid Pkt] Enoxaparin [Lovenox -] 40 mg SQ DAILY 09/22/17 Metoprolol Tartrate 25 mg PO BID 09/22/17 Valproate Na [Depakene] 250 mg GT BID 09/22/17 Vit A/Vitamin D3/E/Aloe V/Zinc 5 gm TP DAILY 09/22/17 [Periguard Ointment] Atorvastatin Ca [Lipitor] 40 mg GT HS 12/11/17 Lacosamide Liquid [Vimpat Liquid -] 10 mg GT BID 12/11/17 Valproate Sodium Liquid [Depakene 1,250 mg GT BID 12/11/17 Oral Solution -] Zinc Oxide 20% Topical Oint 454 gm NR TID 12/11/17 levETIRAcetam [Keppra Oral 500 mg GT BID 12/11/17 Solution -] Albuterol 0.083% Nebulizer Hanane 1 amp NEB Q4H PRN amp 12/24/17 [Ventolin 0.083% Nebulizer Soln -] Chlorhexidine Gluconate [Hibiclens 1 applic TP HS bottle 12/24/17 For Decolonization -] metroNIDAZOLE [Flagyl -] 500 mg PEG TID #28 tablet 03/10/18 Vital Signs Temperature 98.8 F 04/12/18 12:22 Pulse Rate 90 04/12/18 12:22 Respiratory Rate 22 04/12/18 12:22 Blood Pressure 88/56 04/12/18 11:37 O2 Sat by Pulse Oximetry (%) 98 04/12/18 11:37 Intake & Output 04/09/18 04/10/18 04/11/18 04/12/18 23:59 23:59 23:59 23:59 Intake Total 3600 Output Total 200 Balance 3400 Weight 60 kg NAD awake RRR, No M/R CTA, no rales or wheeze soft NT/ND No LE edema CBC, BMP 04/12/18 10:18 Laboratory Tests 04/12/18 04/12/18 09:33 10:18 Sodium 180 H* Potassium 4.1 Chloride 142 H Carbon Dioxide 31 Anion Gap 7 L BUN 49 H Creatinine 1.3 H Creat Clearance w eGFR 41.11 Random Glucose 192 H Lactic Acid 4.8 H* Calcium 8.2 L Phosphorus 3.1 Magnesium 2.8 H Current Medications Chlorhexidine Gluconate (Hibiclens For Decolonization -) 1 applic TP HS CLEMENTE Piperacillin Sod/Tazobactam (Sod 4.5 gm/ Dextrose) 100 mls @ 200 mls/hr IVPB Q6H-IV CLEMENTE; Protocol Daptomycin 360 mg/ Sodium (Chloride) 50 mls @ 50 mls/hr IVPB DAILY CLEMENTE; Protocol Sodium Chloride (Normal Saline -) 1,000 mls @ 150 mls/hr IV ASDIR CLEMENTE Mupirocin (Bactroban Ointment (For Decolonization) -) 1 applic NS BID CLEMENTE Stop: 04/17/18 21:59 Vancomycin HCl (Vancomycin Oral Solution) 250 mg PEG Q6HPO CLEMENTE 67 year old woman with Hx of CVA, Hypertension, Anemia, Dysphagia, recent VRE/ Cdiff who presented with AMS/Fever and admitted for sepsis syndrome with NICOLÁS and hypernatremia. #Sepsis Syndrome #NICOLÁS in setting of sepsis/volume depletion #Hypernatremia (water deficit is > 8L) #Anemia #Thrombocytopenia #Recent VRE/Cdiff #lactic acidosis Would continue aggressive volume resuscitation with isotonic saline (sodium should still downtrend with isotonic saline) Keep MAP > 65 Trend urine output no indication for [employer]CH[employer] at the present time Trend renal function and electrolytes Trend H/H and plts counts Abx as per ID supportive care free water via G-tube as tolerated Trend serum na Q12h Thank you Constantino Clemons DO
--- NOTE | 2018-04-12 13:28 | CONSULT ---
Consultation: REQUESTING PROVIDER: Dr. Fabian CONSULT REQUEST: We have been asked to medically evaluate this patient for Dr. Fabian. HISTORY OF PRESENT ILLNESS: Pt. was BIBA from [facility] for fever (although when called denied Pt. had fever) and altered mental status likely 2/ 2 to sepsis. EMS record states that Pt. was hypotensive, tachycardic to 107 and had a blood glucose of 147. Pt. unable to answer questions about condition as Pt. is aphasic since CVA. REVIEW OF SYSTEMS: Pt. is Aphasic PHYSICAL EXAMINATION Vital Signs - 24 hr 04/12/18 04/12/18 04/12/18 07:35 07:36 08:00 Temperature 100.4 F H Pulse Rate 104 H Pulse Rate [ 102 H Apical] Respiratory 20 24 Rate Blood Pressure 85/63 Blood Pressure 83/54 [Right Arm] O2 Sat by Pulse 99 100 98 Oximetry (%) 04/12/18 04/12/18 04/12/18 08:30 09:00 09:59 Temperature Pulse Rate Pulse Rate [ 103 H 100 H 94 H Apical] Respiratory 24 22 21 Rate Blood Pressure Blood Pressure 85/78 86/60 110/64 [Right Arm] O2 Sat by Pulse 100 100 100 Oximetry (%) 04/12/18 04/12/18 04/12/18 10:30 11:00 11:37 Temperature Pulse Rate Pulse Rate [ 94 H 95 H 92 H Apical] Respiratory 20 19 20 Rate Blood Pressure Blood Pressure 110/64 79/52 88/56 [Right Arm] O2 Sat by Pulse 100 94 L 98 Oximetry (%) 04/12/18 04/12/18 12:00 12:22 Temperature 99.8 F H 98.8 F Pulse Rate 90 Pulse Rate [ Apical] Respiratory 22 Rate Blood Pressure Blood Pressure [Right Arm] O2 Sat by Pulse Oximetry (%) GENERAL: Awake, alert, and in mild distress. HEAD: Normal with no signs of trauma. EYES: Pupils equal, round and reactive to light, extraocular movements grossly intact, sclera anicteric, conjunctiva clear. No lid lag. EARS, NOSE, THROAT: Ears normal, nares patent, oropharynx clear with some exudates. Dry mucous membranes. NECK: No JVD LUNGS: Limited exam-Breath sounds equal, clear to auscultation bilaterally. No wheezes, and no crackles. No accessory muscle use. HEART: Regular rate and rhythm, normal S1 and S2 without murmur ABDOMEN: Soft, nontender, not distended, normoactive bowel sounds, PEG tube in place UPPER EXTREMITIES: 1+ radial pulses, hands cool to touch, forearm to chest warm b/l, well-perfused. No cyanosis. No clubbing. No peripheral edema. LOWER EXTREMITIES: 2+ dorsal pedal pulses, warm, well-perfused. No peripheral edema. SKIN: Warm, dry, normal turgor, no rashes or lesions noted. Laboratory Results - last 24 hr 04/12/18 04/12/18 04/12/18 07:45 07:45 07:45 WBC 16.6 H RBC 4.11 Hgb 11.5 Hct 37.3 D MCV 90.7 MCH 28.0 MCHC 30.9 L RDW 19.3 H Plt Count 81 L D MPV 12.4 H D Absolute Neuts (auto) 13.0 H Neutrophils % 78.6 D Lymphocytes % 15.3 D Monocytes % 5.5 Eosinophils % 0.4 D Basophils % 0.2 Nucleated RBC % 0 PT with INR 14.50 H INR 1.28 H PTT (Actin FS) 30.3 Anticoagulation Therapy Puncture Site ABG pH ABG pCO2 at Pt Temp ABG pO2 at Pt Temp ABG HCO3 ABG O2 Sat (Measured) ABG O2 Content ABG Base Excess Amando Test VBG pH POC VBG pCO2 POC VBG pO2 Mixed VBG HCO3 O2 Delivery Device Oxygen Flow Rate Vent Mode Vent Rate Mechanical Rate Pressure Support Vent Sodium Potassium Chloride Carbon Dioxide Anion Gap BUN Creatinine Creat Clearance w eGFR Random Glucose Lactic Acid Calcium Phosphorus Magnesium Total Bilirubin AST ALT Alkaline Phosphatase Creatine Kinase Troponin I Total Protein Albumin Urine Color Radha Urine Appearance Clear Urine pH 5.0 Ur Specific [place] 1.021 Urine Protein Negative Urine Glucose (UA) Negative Urine Ketones Negative Urine Blood Negative Urine Nitrite Negative Urine Bilirubin Negative Urine Urobilinogen Negative Ur Leukocyte Esterase Trace Urine WBC (Auto) 2 Urine RBC (Auto) 1 Ur Epithelial Cells Rare Hyaline Casts 5 Urine Mucus Rare 04/12/18 04/12/18 04/12/18 07:45 07:45 07:45 WBC RBC Hgb Hct MCV MCH MCHC RDW Plt Count MPV Absolute Neuts (auto) Neutrophils % Lymphocytes % Monocytes % Eosinophils % Basophils % Nucleated RBC % PT with INR INR PTT (Actin FS) Anticoagulation Therapy Puncture Site ABG pH ABG pCO2 at Pt Temp ABG pO2 at Pt Temp ABG HCO3 ABG O2 Sat (Measured) ABG O2 Content ABG Base Excess Amando Test VBG pH 7.37 POC VBG pCO2 60.5 H* POC VBG pO2 20.9 L Mixed VBG HCO3 33.9 H O2 Delivery Device Oxygen Flow Rate Vent Mode Vent Rate Mechanical Rate Pressure Support Vent Sodium 176 H* Potassium 3.6 Chloride 137 H Carbon Dioxide 38 H Anion Gap 1 L BUN 54 H Creatinine 1.5 H Creat Clearance w eGFR 34.85 Random Glucose 130 H Lactic Acid 3.6 H* Calcium 8.5 Phosphorus Magnesium Total Bilirubin 0.3 AST 20 ALT 15 Alkaline Phosphatase 78 Creatine Kinase Troponin I < 0.02 Total Protein 7.1 Albumin 2.5 L Urine Color Urine Appearance Urine pH Ur Specific [place] Urine Protein Urine Glucose (UA) Urine Ketones Urine Blood Urine Nitrite Urine Bilirubin Urine Urobilinogen Ur Leukocyte Esterase Urine WBC (Auto) Urine RBC (Auto) Ur Epithelial Cells Hyaline Casts Urine Mucus 04/12/18 04/12/18 04/12/18 07:45 09:10 09:33 WBC RBC Hgb Hct MCV MCH MCHC RDW Plt Count MPV Absolute Neuts (auto) Neutrophils % Lymphocytes % Monocytes % Eosinophils % Basophils % Nucleated RBC % PT with INR INR PTT (Actin FS) Anticoagulation Therapy No Result Required. Puncture Site Right radial ABG pH 7.43 ABG pCO2 at Pt Temp 45.8 H D ABG pO2 at Pt Temp 88.7 ABG HCO3 30.2 H ABG O2 Sat (Measured) 96.9 ABG O2 Content 14.3 L ABG Base Excess 5.6 H Amando Test Positive VBG pH POC VBG pCO2 POC VBG pO2 Mixed VBG HCO3 O2 Delivery Device Nasal cannula Oxygen Flow Rate 3l Vent Mode No Result Required. Vent Rate No Result Required. Mechanical Rate No Result Required. Pressure Support Vent No Result Required. Sodium Potassium Chloride Carbon Dioxide Anion Gap BUN Creatinine Creat Clearance w eGFR Random Glucose Lactic Acid 4.8 H* Calcium Phosphorus Magnesium Total Bilirubin AST ALT Alkaline Phosphatase Creatine Kinase Troponin I Cancelled Total Protein Albumin Urine Color Urine Appearance Urine pH Ur Specific [place] Urine Protein Urine Glucose (UA) Urine Ketones Urine Blood Urine Nitrite Urine Bilirubin Urine Urobilinogen Ur Leukocyte Esterase Urine WBC (Auto) Urine RBC (Auto) Ur Epithelial Cells Hyaline Casts Urine Mucus 04/12/18 04/12/18 04/12/18 10:18 10:18 10:18 WBC 16.2 H RBC 3.50 L Hgb 9.9 L Hct 31.7 L D MCV 90.7 MCH 28.2 MCHC 31.1 L RDW 19.1 H Plt Count 73 L MPV 11.7 H Absolute Neuts (auto) 12.6 H Neutrophils % 77.5 Lymphocytes % 14.8 Monocytes % 7.3 Eosinophils % 0.2 Basophils % 0.2 Nucleated RBC % 0 PT with INR INR PTT (Actin FS) Anticoagulation Therapy Puncture Site ABG pH ABG pCO2 at Pt Temp ABG pO2 at Pt Temp ABG HCO3 ABG O2 Sat (Measured) ABG O2 Content ABG Base Excess Amando Test VBG pH POC VBG pCO2 POC VBG pO2 Mixed VBG HCO3 O2 Delivery Device Oxygen Flow Rate Vent Mode Vent Rate Mechanical Rate Pressure Support Vent Sodium 180 H* Potassium 4.1 Chloride 142 H Carbon Dioxide 31 Anion Gap 7 L BUN 49 H Creatinine 1.3 H Creat Clearance w eGFR 41.11 Random Glucose 192 H Lactic Acid Calcium 8.2 L Phosphorus 3.1 Magnesium 2.8 H Total Bilirubin AST ALT Alkaline Phosphatase Creatine Kinase 60 Cancelled Troponin I Total Protein Albumin Urine Color Urine Appearance Urine pH Ur Specific [place] Urine Protein Urine Glucose (UA) Urine Ketones Urine Blood Urine Nitrite Urine Bilirubin Urine Urobilinogen Ur Leukocyte Esterase Urine WBC (Auto) Urine RBC (Auto) Ur Epithelial Cells Hyaline Casts Urine Mucus 04/12/18 04/12/18 12:40 12:40 WBC RBC Hgb Hct MCV MCH MCHC RDW Plt Count MPV Absolute Neuts (auto) Neutrophils % Lymphocytes % Monocytes % Eosinophils % Basophils % Nucleated RBC % PT with INR INR PTT (Actin FS) Anticoagulation Therapy Puncture Site ABG pH ABG pCO2 at Pt Temp ABG pO2 at Pt Temp ABG HCO3 ABG O2 Sat (Measured) ABG O2 Content ABG Base Excess Amando Test VBG pH POC VBG pCO2 POC VBG pO2 Mixed VBG HCO3 O2 Delivery Device Oxygen Flow Rate Vent Mode Vent Rate Mechanical Rate Pressure Support Vent Sodium 173 H* Potassium 3.9 Chloride 137 H Carbon Dioxide 35 H Anion Gap 1 L BUN 47 H Creatinine 1.3 H Creat Clearance w eGFR 41.11 Random Glucose 177 H Lactic Acid 2.4 H* Calcium 8.1 L Phosphorus Magnesium Total Bilirubin AST ALT Alkaline Phosphatase Creatine Kinase Troponin I Total Protein Albumin Urine Color Urine Appearance Urine pH Ur Specific [place] Urine Protein Urine Glucose (UA) Urine Ketones Urine Blood Urine Nitrite Urine Bilirubin Urine Urobilinogen Ur Leukocyte Esterase Urine WBC (Auto) Urine RBC (Auto) Ur Epithelial Cells Hyaline Casts Urine Mucus Active Medications Current Medications Chlorhexidine Gluconate (Hibiclens For Decolonization -) 1 applic TP HS CLEMENTE Piperacillin Sod/Tazobactam (Sod 4.5 gm/ Dextrose) 100 mls @ 200 mls/hr IVPB Q6H-IV CLEMENTE; Protocol Daptomycin 360 mg/ Sodium (Chloride) 50 mls @ 50 mls/hr IVPB DAILY CLEMENTE; Protocol Sodium Chloride (Normal Saline -) 1,000 mls @ 150 mls/hr IV ASDIR CLEMENTE Mupirocin (Bactroban Ointment (For Decolonization) -) 1 applic NS BID CLEMENTE Stop: 04/17/18 21:59 Vancomycin HCl (Vancomycin Oral Solution) 250 mg PEG Q6HPO CLEMENTE ASSESSMENT/PLAN: A 67yo female w/ PMHx. of HTN, hyperlipidemia, seizure disorder, CVA, dementia, recent hospitalizations for recurrent C diff colitis who was transferred from the skilled nursing for altered mental status and fevers. Found to be severely hypernatremic to 180 with acute renal failure. #Cardiovascular -HTN hold anti-HTN meds keep MAP above 65 c/w IVf Troponins: 0.02 -HLD c/w Lipitor #Gastroenterology -Recent hospitalization for C.diff Hold Metronidazole c/w Daptomycin and Vancomycin contact precautions completed Diflucan dose. #Renal -Acute Renal Failure Admission Cr. was 1.5-->.1.3, Pt.'s baseline is 0.4-0.7 Dr. Clemons (Nephrology) consult appreciated -Hypernatremia c/w NS, given 6.5L total fluids Goal of decreasing sodium by 0.5 units per hour F/u BMP q12H #Neurology -Seizure disorder c/w Keppra c/w Valproic Acid c/w Lacosimide #DVT Ppx. -Hold Lovenox as Pt. is in acute renal failure #F/E/N -Received total of 6.5 L of fluids -Free water deficit of 8L #Dispo: ICU We will continue to follow the patient. Thank you for this consultative opportunity. Visit type - Emergency Visit Emergency Visit: Yes ED Registration Date: 04/12/18 Care time: The patient presented to the Emergency Department on the above date and was hospitalized for further evaluation of their emergent condition. - New Patient This patient is new to me today: Yes Date on this admission: 04/13/18 - Critical Care Critical Care patient: No
[2018-04-12] MEDS: SODIUM CHLORIDE 1,000 ML IV SCH (13:31)
[2018-04-12] MEDS ORDERED: PIPERACILLIN/TAZOBACTAM 4.5 GM VIAL IVPB ONE ×2 (14:02→21:00)
[2018-04-12] MEDS ORDERED: DEXTROSE 5%-WATER 100 ML IVPB ONE ×2 (14:03→21:00)
[2018-04-12] MEDS: VANCOMYCIN 250 MG/5 ML ORAL SOLUTION PEG SCH ×2 (14:14→18:08)
[2018-04-12] MEDS ORDERED: SODIUM CHLORIDE 0.9% 500 ML INFUS.BAG IV ONE (15:00)
[2018-04-12] MEDS: DAPTOMYCIN 360 MG in SODIUM CHLORIDE 50 ML IVPB SCH (15:06)
[2018-04-12] MEDS: PIPERACILLIN/TAZOB 4.5 GM 4.5 GM in DEXTROSE 5%-WATER 100 ML IVPB SCH ×2 (15:06→21:33)
[2018-04-12] MEDS ORDERED: levETIRAcetam 500 MG/5 ML ORAL SOLUTION (UNIT-DOSE CUPS) PO ONE (15:20)
[2018-04-12 16:40] LABS: ANION GAP 5 MMOL/L (8-16); BLOOD UREA NITROGEN 41 mg/dL (7-18); CALCIUM 7.7 mg/dL (8.5-10.1); CHLORIDE 139 mmol/L (98-107); CO2 30 mmol/L (21-32); CREATININE 1.1 mg/dL (0.55-1.02); GLUCOSE,RANDOM 146 mg/dL (74-106); POTASSIUM 3.2 mmol/L (3.5-5.1)
[2018-04-12 16:49] LABS: SODIUM 174 mmol/L (136-145)
[2018-04-12] MEDS ORDERED: POTASSIUM CHLORIDE 20 MEQ PREMIX IVPB 100 ML IVPB ONE ×2 (17:04→17:07)
[2018-04-12] MEDS: ACETAMINOPHEN 1000 MG/100 ML VIAL (NON FORMULARY) IVPB PRN (18:08)
[2018-04-12] MEDS: KCL 10 MEQ IVPB 10 MEQ/100 ML INFUS.BAG IVPB SCH ×2 (18:09→19:13)
[2018-04-12] MEDS ORDERED: SODIUM CHLORIDE 500 ML IV STA (18:28)
[2018-04-12] MEDS ORDERED: PT OWN MED DRAWER 7, Y5N ONE (20:59)
[2018-04-12] MEDS ORDERED: PHENYLEPHRINE HCL 10 MG/1 ML SINGLE DOSE VIAL ONE (20:59)
[2018-04-12] MEDS ORDERED: PHENYLEPHRINE HCL 20,000 MCG in SODIUM CHLORIDE 248 ML IVPB SCH ×2 (21:00→22:06)
[2018-04-12] MEDS: HEPARIN NA (PORCINE) 5,000 UNITS/ML 1ML VIAL SQ SCH (21:34)
[2018-04-12] MEDS: MUPIROCIN 2% TOPICAL OINTMENT FOR DECOLONIZATION NS SCH (21:34)
[2018-04-12] MEDS: VALPROATE SODIUM 250 MG/5 ML UNIT DOSE CUP PO SCH (21:35)
[2018-04-12] MEDS: ATORVASTATIN CA 40 MG TABLET (FP) GT SCH (21:35)
[2018-04-12] MEDS: ZINC OXIDE 20% TOPICAL OINTMENT 30 GM TUBE TP SCH (21:36)
[2018-04-12] MEDS: CHLORHEXIDINE GLUCONATE 4% CLEANSER FOR DECOLONIZATION TP SCH (21:37)
[2018-04-12] MEDS ORDERED: VALPROATE SODIUM 250 MG/5 ML UNIT DOSE CUP GT SCH (22:00)
[2018-04-12] MEDS ORDERED: VALPROATE SODIUM 250 MG/5 ML UNIT DOSE CUP PO SCH (22:00)
[2018-04-12] MEDS ORDERED: CHLORHEXIDINE GLUCONATE 4% CLEANSER FOR DECOLONIZATION TP SCH (22:00)
[2018-04-12] MEDS: Lacosamide 50 MG/5 ML ORAL SOLUTION UNIT CUPS GT SCH (22:37)
[2018-04-12] MEDS: levETIRAcetam 500 MG/5 ML ORAL SOLUTION (UNIT-DOSE CUPS) GT SCH (22:37)
[2018-04-12] MEDS ORDERED: VASOPRESSIN 50 UNITS in SODIUM CHLORIDE 97.5 ML IVPB SCH (22:45)
[2018-04-12 22:57] LABS: ARTERIAL BLD GAS O2 SATURATION 98.5 % (90-98.9); ARTERIAL BLOOD GAS BASE EXCESS 0.4 meq/l (-2-2); ARTERIAL BLOOD GAS PCO2 42.4 mmHg (35-45); ARTERIAL BLOOD GAS pH 7.39 (7.35-7.45)
[2018-04-12] MEDS ORDERED: NOREPINEPHRINE BITARTRATE 4 MG/4 ML ML IV ONE (23:03)
[2018-04-12 23:14] LABS: ANION GAP 7 MMOL/L (8-16); BLOOD UREA NITROGEN 30 mg/dL (7-18); CALCIUM 7.6 mg/dL (8.5-10.1); CHLORIDE 138 mmol/L (98-107); CO2 25 mmol/L (21-32); GLUCOSE,RANDOM 129 mg/dL (74-106); POTASSIUM 3.3 mmol/L (3.5-5.1)
[2018-04-12 23:19] LABS: SODIUM 170 mmol/L (136-145)
--- NOTE | 2018-04-12 23:49 | PROC ---
Central Line Insertion Indication: Sepsis, Vasopressor Risks and Benefits Explained: Yes (To son) Consent on Chart: Yes (Verbal consent from son) Central Line: Triple Lumen Catheter Anesthesia: 1% Lidocaine Sterile Technique: Yes Ultrasound Guided Assistance: Yes Position: Right Internal Jugular Post Insertion: Yes: Bilateral Breath Sounds, Chest X-Ray Ordered Sterile Dressing Applied: Yes Remarks: RIJ triple lumen central line placed under sterile conditions with ultrasound guidance with lidocaine 1% for local anesthetic with in-house supervision under Dr. Nunu Paez. Modified seldinger technique used to insert guide wire and triple lumen catheter. Guide wire removed after catheter placement. Placement confirmed with CXR.
--- NOTE | 2018-04-12 23:53 | PN ---
Progress Note (short form) - Note Progress Note: Pt with MAPs consistently below 60 despite fluid resuscitation. Phenylepherine started with some improvement in MAP but pt became bradycardic into the 40s. Central line was placed under in-house supervision of Dr. Nunu Paez (as noted in procedure noted) and CXR confirmation of line placement. Pt d/c'd off phenylepherine and started on levophed to keep MAP >65.
[2018-04-13] MEDS: KCL 10 MEQ IVPB 10 MEQ/100 ML INFUS.BAG IVPB SCH ×2 (00:04→01:43)
[2018-04-13] MEDS: NOREPINEPHRINE BITARTRATE 8,000 MCG in DEXTROSE 5%-WATER - 492 ML IV SCH ×2 (00:04→16:00)
[2018-04-13] MEDS: VANCOMYCIN 250 MG/5 ML ORAL SOLUTION PEG SCH ×4 (00:05→17:48)
[2018-04-13] MEDS ORDERED: PIPERACILLIN/TAZOBACTAM 4.5 GM VIAL IVPB ONE ×4 (03:16→21:10)
[2018-04-13] MEDS ORDERED: DEXTROSE 5%-WATER 100 ML IVPB ONE ×4 (03:16→21:10)
[2018-04-13] MEDS: PIPERACILLIN/TAZOB 4.5 GM 4.5 GM in DEXTROSE 5%-WATER 100 ML IVPB SCH ×4 (03:17→21:18)
[2018-04-13 05:54] LABS: BASO % 0.4 % (0-2.0); EOS % 0.4 % (0-4.5); HEMATOCRIT 28.6 % (32.4-45.2); HEMOGLOBIN 9.2 GM/dL (10.7-15.3); LYMPH % 17.8 % (8-40); MCHC 32.1 g/dl (32.0-36.0); MEAN CELL VOLUME 93.4 fl (80-96); MEAN PLT VOLUME 11.7 fl (7.5-11.1); MONO % 5.7 % (3.8-10.2); NEUT % 75.7 % (42.8-82.8); PLATELET COUNT 69 K/MM3 (134-434); RBC 3.06 M/mm3 (3.60-5.2); WHITE BLOOD COUNT 20.6 K/mm3 (4.0-10.0)
[2018-04-13] MEDS ORDERED: PT OWN MED DRAWER 7, Y5N ONE ×5 (05:58→21:10)
[2018-04-13] MEDS: ZINC OXIDE 20% TOPICAL OINTMENT 30 GM TUBE TP SCH ×3 (06:00→23:00)
[2018-04-13 06:24] LABS: ANION GAP 3 MMOL/L (8-16); BLOOD UREA NITROGEN 25 mg/dL (7-18); CALCIUM 7.9 mg/dL (8.5-10.1); CO2 28 mmol/L (21-32); GLUCOSE,RANDOM 170 mg/dL (74-106); MAGNESIUM 2.2 mg/dL (1.8-2.4); POTASSIUM 3.4 mmol/L (3.5-5.1)
[2018-04-13 06:25] LABS: PHOSPHOROUS 1.8 mg/dL (2.5-4.9)
[2018-04-13 06:46] LABS: SODIUM 164 mmol/L (136-145)
[2018-04-13 06:47] LABS: CHLORIDE 133 mmol/L (98-107)
[2018-04-13 07:06] LABS: ANISOCYTOSIS 1+; PLATELET ESTIMATE DECREASED
[2018-04-13] MEDS ORDERED: POTASSIUM PHOSPHATE 30 MM in SODIUM CHLORIDE 250 ML IVPB ONE (07:24)
[2018-04-13] MEDS ORDERED: POTASSIUM CHLORIDE 20 MEQ PREMIX IVPB 100 ML IVPB ONE (09:00)
[2018-04-13] MEDS: ASPIRIN 81 MG CHEWABLE TABLETS PO SCH (09:55)
[2018-04-13] MEDS: VALPROATE SODIUM 250 MG/5 ML UNIT DOSE CUP PO SCH ×2 (09:56→21:21)
[2018-04-13] MEDS: levETIRAcetam 500 MG/5 ML ORAL SOLUTION (UNIT-DOSE CUPS) GT SCH ×2 (09:59→21:21)
[2018-04-13] MEDS ORDERED: PATIENT'S OWN MEDICATION (NON-FORMULARY) (Vit A/Vitamin D3/E/Aloe V/Zinc [Periguard Ointme TP SCH (10:00)
[2018-04-13] MEDS: MUPIROCIN 2% TOPICAL OINTMENT FOR DECOLONIZATION NS SCH ×2 (10:01→22:00)
[2018-04-13] MEDS: ACETAMINOPHEN 1000 MG/100 ML VIAL (NON FORMULARY) IVPB PRN (10:03)
[2018-04-13] MEDS: HEPARIN NA (PORCINE) 5,000 UNITS/ML 1ML VIAL SQ SCH ×2 (10:06→21:18)
[2018-04-13] MEDS ORDERED: INSULIN (NOVOLOG) ASPART 100 UNITS/ML 10ML VIAL ONE (10:11)
[2018-04-13] MEDS: Lacosamide 50 MG/5 ML ORAL SOLUTION UNIT CUPS GT SCH ×2 (10:16→21:17)
[2018-04-13] MEDS: DAPTOMYCIN 360 MG in SODIUM CHLORIDE 50 ML IVPB SCH (11:00)
--- NOTE | 2018-04-13 11:48 | PN ---
Progress Note (short form) - Note Progress Note: Lethargic, now on Levophed not in distress Vital Signs - 24 hr 04/12/18 04/12/18 04/12/18 12:00 12:22 13:00 Temperature 99.8 F H 98.8 F Pulse Rate 90 Respiratory 22 Rate Blood Pressure 84/46 O2 Sat by Pulse 97 Oximetry (%) 04/12/18 04/12/18 04/12/18 13:15 13:20 14:22 Temperature 98.8 F 99 F Pulse Rate 90 90 Respiratory 17 22 24 Rate Blood Pressure 86/55 96/54 O2 Sat by Pulse 97 Oximetry (%) 04/12/18 04/12/18 04/12/18 15:00 16:00 16:53 Temperature 99.2 F 99.3 F Pulse Rate 91 H 90 92 H Respiratory 23 21 19 Rate Blood Pressure 83/56 88/51 81/44 O2 Sat by Pulse Oximetry (%) 04/12/18 04/12/18 04/12/18 18:00 19:00 20:15 Temperature 100.2 F H 99.8 F H Pulse Rate 90 84 Respiratory 17 22 Rate Blood Pressure 86/55 106/77 O2 Sat by Pulse 100 Oximetry (%) 04/12/18 04/12/18 04/12/18 20:19 20:23 21:08 Temperature 99.6 F Pulse Rate 85 86 Respiratory 22 23 Rate Blood Pressure 80/44 77/39 O2 Sat by Pulse 100 Oximetry (%) 04/12/18 04/13/18 04/13/18 23:00 00:00 02:00 Temperature 99.5 F 99.4 F Pulse Rate 49 L 50 L 64 Respiratory 27 H 25 H 20 Rate Blood Pressure 85/26 122/27 104/57 O2 Sat by Pulse Oximetry (%) 04/13/18 04/13/18 04/13/18 04:00 06:00 06:57 Temperature 99.5 F Pulse Rate 89 64 68 Respiratory 27 H 13 Rate Blood Pressure 109/50 108/41 144/55 O2 Sat by Pulse Oximetry (%) 04/13/18 04/13/18 04/13/18 08:00 08:54 10:00 Temperature 99.8 F H Pulse Rate 60 81 Respiratory 16 16 23 Rate Blood Pressure 102/76 107/59 O2 Sat by Pulse 98 98 Oximetry (%) Current Medications Generic Name Dose Route Start Last Admin Trade Name Freq PRN Reason Stop Dose Admin Acetaminophen 1,000 mg 04/12/18 17:12 04/13/18 10:03 Ofirmev Injection - IVPB 1,000 mg Q6H PRN Administration FEVER Albuterol Sulfate 1 amp 04/12/18 13:42 Ventolin 0.083% Nebulizer Soln - NEB Q4H PRN SHORT OF BREATH/WHEEZING Aspirin 81 mg 04/13/18 10:00 04/13/18 09:55 Asa - PO 81 mg DAILY CLEMENTE Administration Atorvastatin Calcium 40 mg 04/12/18 22:00 04/12/18 21:35 Lipitor - GT 40 mg HS CLEMENTE Administration Chlorhexidine Gluconate 1 applic 04/12/18 22:00 04/12/18 21:37 Hibiclens For Decolonization - TP 1 applic HS CLEMENTE Administration Heparin Sodium (Porcine) 5,000 unit 04/12/18 22:00 04/13/18 10:06 Heparin - SQ 5,000 unit BID CLEMENTE Administration Piperacillin Sod/Tazobactam 100 mls @ 200 mls/hr 04/12/18 15:00 04/13/18 09: 55 Sod 4.5 gm/ Dextrose IVPB 200 mls/hr Q6H-IV CLEMENTE Administration Protocol Daptomycin 360 mg/ Sodium 50 mls @ 50 mls/hr 04/12/18 13:00 04/12/18 15:06 Chloride IVPB 50 mls/hr DAILY CLEMENTE Administration Protocol Sodium Chloride 1,000 mls @ 150 mls/hr 04/12/18 13:15 04/12/18 13:31 Normal Saline - IV 150 mls/hr ASDIR CLEMENTE Administration Norepinephrine Bitartrate 8, 500 mls @ 18.75 mls/hr 04/12/18 23:45 04/13/18 06:57 000 mcg/ Dextrose IV 15 mcg/min TITR CLEMENTE 56.25 mls/hr Titration Protocol 5 MCG/MIN Lacosamide 10 mg 04/12/18 22:30 04/13/18 10:16 Vimpat Liquid - GT 10 mg BID CLEMENTE Administration Levetiracetam 500 mg 04/12/18 22:00 04/13/18 09:59 Keppra Oral Solution - GT 500 mg BID CLEMENTE Administration Multi-Ingredient Ointment 1 applic 04/12/18 22:00 04/13/18 06:00 Zinc Oxide TP 1 applic TID CLEMENTE Administration Mupirocin 1 applic 04/12/18 22:00 04/13/18 10:01 Bactroban Ointment (For Decolonization) - NS 04/17/18 21:59 1 applic BID CLEMENTE Administration Non-Formulary Medication 5 gm 04/13/18 10:00 Vit A/Vitamin D3/E/Aloe V/Zinc [Periguard Ointment] TP DAILY CLEMENTE Valproate Sodium 1,250 mg 04/12/18 22:00 04/13/18 09:56 Depakene - PO 1,250 mg BID CLEMENTE Administration Vancomycin HCl 250 mg 04/12/18 12:00 04/13/18 06:00 Vancomycin Oral Solution PEG 250 mg Q6HPO CLEMENTE Administration Laboratory Results - last 24 hr 04/12/18 04/12/18 04/12/18 10:18 12:40 12:40 WBC RBC Hgb Hct MCV MCH MCHC RDW Plt Count MPV Absolute Neuts (auto) Total Counted Neutrophils % Neutrophils % (Manual) Band Neutrophils % Lymphocytes % Lymphocytes % (Manual) Monocytes % Monocytes % (Manual) Eosinophils % Basophils % Nucleated RBC % Hypochromia Platelet Estimate Platelet Comment Anisocytosis Anticoagulation Therapy Puncture Site ABG pH ABG pCO2 at Pt Temp ABG pO2 at Pt Temp ABG HCO3 ABG O2 Sat (Measured) ABG O2 Content ABG Base Excess Amando Test O2 Delivery Device Oxygen Flow Rate Vent Mode Vent Rate Mechanical Rate Pressure Support Vent Sodium 173 H* Potassium 3.9 Chloride 137 H Carbon Dioxide 35 H Anion Gap 1 L BUN 47 H Creatinine 1.3 H Creat Clearance w eGFR 41.11 Random Glucose 177 H Lactic Acid 2.4 H* Calcium 8.1 L Phosphorus Magnesium Creatine Kinase Troponin I Albumin Valproic Acid 31.9 L 04/12/18 04/12/18 04/12/18 12:40 15:45 15:45 WBC RBC Hgb Hct MCV MCH MCHC RDW Plt Count MPV Absolute Neuts (auto) Total Counted Neutrophils % Neutrophils % (Manual) Band Neutrophils % Lymphocytes % Lymphocytes % (Manual) Monocytes % Monocytes % (Manual) Eosinophils % Basophils % Nucleated RBC % Hypochromia Platelet Estimate Platelet Comment Anisocytosis Anticoagulation Therapy Puncture Site ABG pH ABG pCO2 at Pt Temp ABG pO2 at Pt Temp ABG HCO3 ABG O2 Sat (Measured) ABG O2 Content ABG Base Excess Amando Test O2 Delivery Device Oxygen Flow Rate Vent Mode Vent Rate Mechanical Rate Pressure Support Vent Sodium 174 H* Potassium 3.2 L Chloride 139 H Carbon Dioxide 30 Anion Gap 5 L BUN 41 H Creatinine 1.1 H Creat Clearance w eGFR 49.85 Random Glucose 146 H Lactic Acid 4.0 H* Calcium 7.7 L Phosphorus Magnesium Creatine Kinase 67 Troponin I Albumin Valproic Acid 04/12/18 04/12/18 04/12/18 19:30 22:45 22:45 WBC RBC Hgb Hct MCV MCH MCHC RDW Plt Count MPV Absolute Neuts (auto) Total Counted Neutrophils % Neutrophils % (Manual) Band Neutrophils % Lymphocytes % Lymphocytes % (Manual) Monocytes % Monocytes % (Manual) Eosinophils % Basophils % Nucleated RBC % Hypochromia Platelet Estimate Platelet Comment Anisocytosis Anticoagulation Therapy Puncture Site ABG pH ABG pCO2 at Pt Temp ABG pO2 at Pt Temp ABG HCO3 ABG O2 Sat (Measured) ABG O2 Content ABG Base Excess Amando Test O2 Delivery Device Oxygen Flow Rate Vent Mode Vent Rate Mechanical Rate Pressure Support Vent Sodium 170 H* Potassium 3.3 L Chloride 138 H Carbon Dioxide 25 Anion Gap 7 L BUN 30 H Creatinine 1.0 Creat Clearance w eGFR 55.64 Random Glucose 129 H Lactic Acid 2.1 H Calcium 7.6 L Phosphorus Magnesium Creatine Kinase Troponin I Albumin 1.9 L Valproic Acid 04/12/18 04/13/18 04/13/18 22:45 00:22 05:30 WBC 20.6 H RBC 3.06 L Hgb 9.2 L Hct 28.6 L MCV 93.4 MCH 30.0 MCHC 32.1 RDW 19.0 H Plt Count 69 L MPV 11.7 H Absolute Neuts (auto) 15.6 H Total Counted 100 Neutrophils % 75.7 Neutrophils % (Manual) 72.0 Band Neutrophils % 7.0 Lymphocytes % 17.8 D Lymphocytes % (Manual) 13.0 Monocytes % 5.7 Monocytes % (Manual) 8 D Eosinophils % 0.4 D Basophils % 0.4 Nucleated RBC % 0 Hypochromia 1+ Platelet Estimate Decreased Platelet Comment No clumping noted Anisocytosis 1+ Anticoagulation Therapy No Result Required. Puncture Site No Result Required. ABG pH 7.39 ABG pCO2 at Pt Temp 42.4 ABG pO2 at Pt Temp 117.0 H D ABG HCO3 25.0 ABG O2 Sat (Measured) 98.5 ABG O2 Content 12.4 L ABG Base Excess 0.4 Amando Test No Result Required. O2 Delivery Device No Result Required. Oxygen Flow Rate No Result Required. Vent Mode No Result Required. Vent Rate No Result Required. Mechanical Rate No Result Required. Pressure Support Vent No Result Required. Sodium Potassium Chloride Carbon Dioxide Anion Gap BUN Creatinine Creat Clearance w eGFR Random Glucose Lactic Acid Calcium Phosphorus Magnesium Creatine Kinase Troponin I 0.02 Albumin Valproic Acid 04/13/18 04/13/18 04/13/18 05:30 05:30 05:30 WBC RBC Hgb Hct MCV MCH MCHC RDW Plt Count MPV Absolute Neuts (auto) Total Counted Neutrophils % Neutrophils % (Manual) Band Neutrophils % Lymphocytes % Lymphocytes % (Manual) Monocytes % Monocytes % (Manual) Eosinophils % Basophils % Nucleated RBC % Hypochromia Platelet Estimate Platelet Comment Anisocytosis Anticoagulation Therapy Puncture Site ABG pH ABG pCO2 at Pt Temp ABG pO2 at Pt Temp ABG HCO3 ABG O2 Sat (Measured) ABG O2 Content ABG Base Excess Amando Test O2 Delivery Device Oxygen Flow Rate Vent Mode Vent Rate Mechanical Rate Pressure Support Vent Sodium 164 H* Potassium 3.4 L Chloride 133 H Carbon Dioxide 28 Anion Gap 3 L BUN 25 H Creatinine 1.0 Creat Clearance w eGFR 55.64 Random Glucose 170 H Lactic Acid 1.8 Calcium 7.9 L Phosphorus 1.8 L Magnesium 2.2 Creatine Kinase Troponin I 0.04 Albumin Valproic Acid S1 S2 RRR Lungs decreased breath sounds B/L Abd- soft, tenderness diffuse, ND, BS+ No edema PLAN on Levophed drip WBC elevated, on iv antibiotics Sodium better iv fluids prognosis guarded Problem List - Problems (1) Hypernatremia Code(s): E87.0 - HYPEROSMOLALITY AND HYPERNATREMIA (2) Sepsis Code(s): A41.9 - SEPSIS, UNSPECIFIED ORGANISM Qualifiers: Sepsis type: sepsis due to unspecified organism Qualified Code(s): A41.9 - Sepsis, unspecified organism (3) NICOL[place]S (acute kidney injury) Code(s): N17.9 - ACUTE KIDNEY FAILURE, UNSPECIFIED (4) Anemia Code(s): D64.9 - ANEMIA, UNSPECIFIED Qualifiers: Anemia type: unspecified type Qualified Code(s): D64.9 - Anemia, unspecified
--- NOTE | 2018-04-13 12:44 | PN ---
Physical Exam: SUBJECTIVE: Patient seen and examined. Pt. was hypotensive with a MAP of 45, Phenylepherine was started. MAP still did not rise to above 65 so a Central line was placed in the right internal jugular vein. Levophed @ 15 mcg was given to good effect. Pt. MAP then maintained above 65. Pt. was seen this morning and was much more alert and reactive. Pt. is aphasic and has a right hand tremor that is more pronounced with the intention of moving. OBJECTIVE: Vital Signs Period Temp Pulse Resp BP Sys/Levine Pulse Ox Last 24 Hr 98.8 F-100.2 F 49-92 13- 77-144/ 97-100 GENERAL: The patient is awake, alert, and fully oriented, in mild distress? HEAD: Normal with no signs of trauma. EYES: sclera anicteric, conjunctiva clear. No ptosis. ENT: Ears normal, nares patent, oropharynx clear without exudates, poor dentition, dry mucous membranes. LUNGS: Breath sounds equal, clear to auscultation bilaterally, no wheezes, no crackles, no accessory muscle use. HEART: Regular rate and rhythm, S1, S2 without murmur ABDOMEN: Soft, nontender, nondistended, normoactive bowel sounds, no guarding, no rebound EXTREMITIES: 2+ dorsal pedal pulses, no calf tenderness, right sided weakness compared to the left on churn driller strength, warm, well-perfused, no edema. SKIN: Warm, dry, normal turgor Laboratory Results - last 24 hr 04/12/18 04/12/18 04/12/18 10:18 12:40 12:40 WBC RBC Hgb Hct MCV MCH MCHC RDW Plt Count MPV Absolute Neuts (auto) Total Counted Neutrophils % Neutrophils % (Manual) Band Neutrophils % Lymphocytes % Lymphocytes % (Manual) Monocytes % Monocytes % (Manual) Eosinophils % Basophils % Nucleated RBC % Hypochromia Platelet Estimate Platelet Comment Anisocytosis Anticoagulation Therapy Puncture Site ABG pH ABG pCO2 at Pt Temp ABG pO2 at Pt Temp ABG HCO3 ABG O2 Sat (Measured) ABG O2 Content ABG Base Excess Amando Test O2 Delivery Device Oxygen Flow Rate Vent Mode Vent Rate Mechanical Rate Pressure Support Vent Sodium 173 H* Potassium 3.9 Chloride 137 H Carbon Dioxide 35 H Anion Gap 1 L BUN 47 H Creatinine 1.3 H Creat Clearance w eGFR 41.11 Random Glucose 177 H Lactic Acid 2.4 H* Calcium 8.1 L Phosphorus Magnesium Creatine Kinase Troponin I Albumin Valproic Acid 31.9 L 04/12/18 04/12/18 04/12/18 12:40 15:45 15:45 WBC RBC Hgb Hct MCV MCH MCHC RDW Plt Count MPV Absolute Neuts (auto) Total Counted Neutrophils % Neutrophils % (Manual) Band Neutrophils % Lymphocytes % Lymphocytes % (Manual) Monocytes % Monocytes % (Manual) Eosinophils % Basophils % Nucleated RBC % Hypochromia Platelet Estimate Platelet Comment Anisocytosis Anticoagulation Therapy Puncture Site ABG pH ABG pCO2 at Pt Temp ABG pO2 at Pt Temp ABG HCO3 ABG O2 Sat (Measured) ABG O2 Content ABG Base Excess Amando Test O2 Delivery Device Oxygen Flow Rate Vent Mode Vent Rate Mechanical Rate Pressure Support Vent Sodium 174 H* Potassium 3.2 L Chloride 139 H Carbon Dioxide 30 Anion Gap 5 L BUN 41 H Creatinine 1.1 H Creat Clearance w eGFR 49.85 Random Glucose 146 H Lactic Acid 4.0 H* Calcium 7.7 L Phosphorus Magnesium Creatine Kinase 67 Troponin I Albumin Valproic Acid 04/12/18 04/12/18 04/12/18 19:30 22:45 22:45 WBC RBC Hgb Hct MCV MCH MCHC RDW Plt Count MPV Absolute Neuts (auto) Total Counted Neutrophils % Neutrophils % (Manual) Band Neutrophils % Lymphocytes % Lymphocytes % (Manual) Monocytes % Monocytes % (Manual) Eosinophils % Basophils % Nucleated RBC % Hypochromia Platelet Estimate Platelet Comment Anisocytosis Anticoagulation Therapy Puncture Site ABG pH ABG pCO2 at Pt Temp ABG pO2 at Pt Temp ABG HCO3 ABG O2 Sat (Measured) ABG O2 Content ABG Base Excess Amando Test O2 Delivery Device Oxygen Flow Rate Vent Mode Vent Rate Mechanical Rate Pressure Support Vent Sodium 170 H* Potassium 3.3 L Chloride 138 H Carbon Dioxide 25 Anion Gap 7 L BUN 30 H Creatinine 1.0 Creat Clearance w eGFR 55.64 Random Glucose 129 H Lactic Acid 2.1 H Calcium 7.6 L Phosphorus Magnesium Creatine Kinase Troponin I Albumin 1.9 L Valproic Acid 04/12/18 04/13/18 04/13/18 22:45 00:22 05:30 WBC 20.6 H RBC 3.06 L Hgb 9.2 L Hct 28.6 L MCV 93.4 MCH 30.0 MCHC 32.1 RDW 19.0 H Plt Count 69 L MPV 11.7 H Absolute Neuts (auto) 15.6 H Total Counted 100 Neutrophils % 75.7 Neutrophils % (Manual) 72.0 Band Neutrophils % 7.0 Lymphocytes % 17.8 D Lymphocytes % (Manual) 13.0 Monocytes % 5.7 Monocytes % (Manual) 8 D Eosinophils % 0.4 D Basophils % 0.4 Nucleated RBC % 0 Hypochromia 1+ Platelet Estimate Decreased Platelet Comment No clumping noted Anisocytosis 1+ Anticoagulation Therapy No Result Required. Puncture Site No Result Required. ABG pH 7.39 ABG pCO2 at Pt Temp 42.4 ABG pO2 at Pt Temp 117.0 H D ABG HCO3 25.0 ABG O2 Sat (Measured) 98.5 ABG O2 Content 12.4 L ABG Base Excess 0.4 Amando Test No Result Required. O2 Delivery Device No Result Required. Oxygen Flow Rate No Result Required. Vent Mode No Result Required. Vent Rate No Result Required. Mechanical Rate No Result Required. Pressure Support Vent No Result Required. Sodium Potassium Chloride Carbon Dioxide Anion Gap BUN Creatinine Creat Clearance w eGFR Random Glucose Lactic Acid Calcium Phosphorus Magnesium Creatine Kinase Troponin I 0.02 Albumin Valproic Acid 04/13/18 04/13/18 04/13/18 05:30 05:30 05:30 WBC RBC Hgb Hct MCV MCH MCHC RDW Plt Count MPV Absolute Neuts (auto) Total Counted Neutrophils % Neutrophils % (Manual) Band Neutrophils % Lymphocytes % Lymphocytes % (Manual) Monocytes % Monocytes % (Manual) Eosinophils % Basophils % Nucleated RBC % Hypochromia Platelet Estimate Platelet Comment Anisocytosis Anticoagulation Therapy Puncture Site ABG pH ABG pCO2 at Pt Temp ABG pO2 at Pt Temp ABG HCO3 ABG O2 Sat (Measured) ABG O2 Content ABG Base Excess Amando Test O2 Delivery Device Oxygen Flow Rate Vent Mode Vent Rate Mechanical Rate Pressure Support Vent Sodium 164 H* Potassium 3.4 L Chloride 133 H Carbon Dioxide 28 Anion Gap 3 L BUN 25 H Creatinine 1.0 Creat Clearance w eGFR 55.64 Random Glucose 170 H Lactic Acid 1.8 Calcium 7.9 L Phosphorus 1.8 L Magnesium 2.2 Creatine Kinase Troponin I 0.04 Albumin Valproic Acid Active Medications Current Medications Acetaminophen (Ofirmev Injection -) 1,000 mg IVPB Q6H PRN PRN Reason: FEVER Last Admin: 04/13/18 10:03 Dose: 1,000 mg Albuterol Sulfate (Ventolin 0.083% Nebulizer Soln -) 1 amp NEB Q4H PRN PRN Reason: SHORT OF BREATH/WHEEZING Aspirin (Asa -) 81 mg PO DAILY [facility] Last Admin: 04/13/18 09:55 Dose: 81 mg Atorvastatin Calcium (Lipitor -) 40 mg GT HS [facility] Last Admin: 04/12/18 21:35 Dose: 40 mg Chlorhexidine Gluconate (Hibiclens For Decolonization -) 1 applic TP HS [facility] Last Admin: 04/12/18 21:37 Dose: 1 applic Heparin Sodium (Porcine) (Heparin -) 5,000 unit SQ BID [facility] Last Admin: 04/13/18 10:06 Dose: 5,000 unit Piperacillin Sod/Tazobactam (Sod 4.5 gm/ Dextrose) 100 mls @ 200 mls/hr IVPB Q6H-IV [facility]; Protocol Last Admin: 04/13/18 09:55 Dose: 200 mls/hr Daptomycin 360 mg/ Sodium (Chloride) 50 mls @ 50 mls/hr IVPB DAILY [facility]; Protocol Last Admin: 04/13/18 11:00 Dose: 50 mls/hr Sodium Chloride (Normal Saline -) 1,000 mls @ 150 mls/hr IV ASDIR [facility] Last Admin: 04/12/18 13:31 Dose: 150 mls/hr Norepinephrine Bitartrate 8, (000 mcg/ Dextrose) 500 mls @ 18.75 mls/hr IV TITR [facility]; Protocol Last Titration: 04/13/18 06:57 Dose: 15 mcg/min, 56.25 mls/hr Lacosamide (Vimpat Liquid -) 10 mg GT BID [facility] Last Admin: 04/13/18 10:16 Dose: 10 mg Levetiracetam (Keppra Oral Solution -) 500 mg GT BID [facility] Last Admin: 04/13/18 09:59 Dose: 500 mg Multi-Ingredient Ointment (Zinc Oxide) 1 applic TP TID [facility] Last Admin: 04/13/18 06:00 Dose: 1 applic Mupirocin (Bactroban Ointment (For Decolonization) -) 1 applic NS BID [facility] Stop: 04/17/18 21:59 Last Admin: 04/13/18 10:01 Dose: 1 applic Non-Formulary Medication (Vit A/Vitamin D3/E/Aloe V/Zinc [Periguard Ointment]) 5 gm TP DAILY [facility] Valproate Sodium (Depakene -) 1,250 mg PO BID [facility] Last Admin: 04/13/18 09:56 Dose: 1,250 mg Vancomycin HCl (Vancomycin Oral Solution) 250 mg PEG Q6HPO [facility] Last Admin: 04/13/18 12:09 Dose: 250 mg ASSESSMENT/PLAN: A 67yo female w/ PMHx. of HTN, hyperlipidemia, seizure disorder, CVA, dementia, recent hospitalizations for recurrent C diff colitis who was transferred from the longterm for altered mental status and fevers. Found to be severely hypernatremic to 180 with acute renal failure. #Cardiovascular -HTN hold anti-HTN meds keep MAP above 65 c/w IVf Troponin: 0.02 -HLD c/w Lipitor #Gastroenterology -Recent hospitalization for C.diff D/C-ed Metronidazole c/w Daptomycin and Vancomycin contact precautions completed Diflucan dose for broad spectrum coverage. #Renal -Acute Renal Failure Admission Cr. was 1.5-->.1.3-->1.0, Pt.'s baseline is 0.4-0.7 Dr. Clemons (Nephrology) consult appreciated -Hypernatremia c/w NS @ 100ml/hr Goal of decreasing sodium by 0.5 units per hour #Neurology -Seizure disorder c/w Keppra c/w Valproic Acid c/w Lacosimide #DVT Ppx. -Hold Lovenox as Pt. is in acute renal failure #F/E/N -Titrated NS to 100ml/hr -Na+ is now 164, monitoring to decrease Na+ by 0.5 units/hr -f/u BMP @ 6pm -Free water deficit of 5.1L -RD consult appreciated. Recommends Osmolite 1.2 @ 20cc/hr, increase slowly to 1300ml volume. Total free water 1066ml w/ 20ml/hr pump flush, would consider restarting tube feeds in the AM pending clinical status and Na+ level. #Dispo: ICU We will continue to follow the patient. Thank you for this consultative opportunity. Visit type - Emergency Visit Emergency Visit: Yes ED Registration Date: 04/12/18 Care time: The patient presented to the Emergency Department on the above date and was hospitalized for further evaluation of their emergent condition. - New Patient This patient is new to me today: No - Critical Care Critical Care patient: No - Discharge Referral Referred to [facility] No
--- NOTE | 2018-04-13 15:00 | PN ---
Teaching Attending Note Name of Resident: Mateo Valentin ATTENDING PHYSICIAN STATEMENT I saw and evaluated the patient. I reviewed the resident's note and discussed the case with the resident. I agree with the resident's findings and plan as documented. SUBJECTIVE: Patient seen and examined in the ICU. Awake and able some questions, but confused. On 14 mcq NE for hemodynamic support. Denies CP or SOB. Labs noted. Intake & Output 04/10/18 04/11/18 04/12/18 04/13/18 23:59 23:59 23:59 23:59 Intake Total 7250 1735 Output Total 200 1000 Balance 7050 735 Weight 145 lb 4 oz 145 lb 4 oz Last Vital Signs Temp Pulse Resp BP Pulse Ox 99.8 F H 53 L 21 94/50 98 04/13/18 10:00 04/13/18 12:00 04/13/18 12:00 04/13/18 12:00 04/13/18 10:00 Active Medications Acetaminophen (Ofirmev Injection -) 1,000 mg IVPB Q6H PRN PRN Reason: FEVER Last Admin: 04/13/18 10:03 Dose: 1,000 mg Albuterol Sulfate (Ventolin 0.083% Nebulizer Soln -) 1 amp NEB Q4H PRN PRN Reason: SHORT OF BREATH/WHEEZING Aspirin (Asa -) 81 mg PO DAILY [facility] Last Admin: 04/13/18 09:55 Dose: 81 mg Atorvastatin Calcium (Lipitor -) 40 mg GT HS [facility] Last Admin: 04/12/18 21:35 Dose: 40 mg Chlorhexidine Gluconate (Hibiclens For Decolonization -) 1 applic TP HS [facility] Last Admin: 04/12/18 21:37 Dose: 1 applic Heparin Sodium (Porcine) (Heparin -) 5,000 unit SQ BID [facility] Last Admin: 04/13/18 10:06 Dose: 5,000 unit Piperacillin Sod/Tazobactam (Sod 4.5 gm/ Dextrose) 100 mls @ 200 mls/hr IVPB Q6H-IV [facility]; Protocol Last Admin: 04/13/18 14:15 Dose: 200 mls/hr Daptomycin 360 mg/ Sodium (Chloride) 50 mls @ 50 mls/hr IVPB DAILY [facility]; Protocol Last Admin: 04/13/18 11:00 Dose: 50 mls/hr Sodium Chloride (Normal Saline -) 1,000 mls @ 150 mls/hr IV ASDIR [facility] Last Admin: 04/12/18 13:31 Dose: 150 mls/hr Norepinephrine Bitartrate 8, (000 mcg/ Dextrose) 500 mls @ 18.75 mls/hr IV TITR [facility]; Protocol Last Titration: 04/13/18 06:57 Dose: 15 mcg/min, 56.25 mls/hr Lacosamide (Vimpat Liquid -) 10 mg GT BID [facility] Last Admin: 04/13/18 10:16 Dose: 10 mg Levetiracetam (Keppra Oral Solution -) 500 mg GT BID [facility] Last Admin: 04/13/18 09:59 Dose: 500 mg Multi-Ingredient Ointment (Zinc Oxide) 1 applic TP TID [facility] Last Admin: 04/13/18 14:14 Dose: 1 applic Mupirocin (Bactroban Ointment (For Decolonization) -) 1 applic NS BID [facility] Stop: 04/17/18 21:59 Last Admin: 04/13/18 10:01 Dose: 1 applic Non-Formulary Medication (Vit A/Vitamin D3/E/Aloe V/Zinc [Periguard Ointment]) 5 gm TP DAILY [facility] Valproate Sodium (Depakene -) 1,250 mg PO BID [facility] Last Admin: 04/13/18 09:56 Dose: 1,250 mg Vancomycin HCl (Vancomycin Oral Solution) 250 mg PEG Q6HPO [facility] Last Admin: 04/13/18 12:09 Dose: 250 mg Gen: lethargic, NAD Heart: tachycardic, regular Lung: decreased breath sounds at the bases Abd: softly distended, nontender Ext: no edema Laboratory Results - last 24 hr 04/12/18 04/12/18 04/12/18 10:18 15:45 15:45 WBC RBC Hgb Hct MCV MCH MCHC RDW Plt Count MPV Absolute Neuts (auto) Total Counted Neutrophils % Neutrophils % (Manual) Band Neutrophils % Lymphocytes % Lymphocytes % (Manual) Monocytes % Monocytes % (Manual) Eosinophils % Basophils % Nucleated RBC % Hypochromia Platelet Estimate Platelet Comment Anisocytosis Anticoagulation Therapy Puncture Site ABG pH ABG pCO2 at Pt Temp ABG pO2 at Pt Temp ABG HCO3 ABG O2 Sat (Measured) ABG O2 Content ABG Base Excess Amando Test O2 Delivery Device Oxygen Flow Rate Vent Mode Vent Rate Mechanical Rate Pressure Support Vent Sodium 174 H* Potassium 3.2 L Chloride 139 H Carbon Dioxide 30 Anion Gap 5 L BUN 41 H Creatinine 1.1 H Creat Clearance w eGFR 49.85 Random Glucose 146 H Lactic Acid 4.0 H* Calcium 7.7 L Phosphorus Magnesium Troponin I Albumin Valproic Acid 31.9 L 04/12/18 04/12/18 04/12/18 19:30 22:45 22:45 WBC RBC Hgb Hct MCV MCH MCHC RDW Plt Count MPV Absolute Neuts (auto) Total Counted Neutrophils % Neutrophils % (Manual) Band Neutrophils % Lymphocytes % Lymphocytes % (Manual) Monocytes % Monocytes % (Manual) Eosinophils % Basophils % Nucleated RBC % Hypochromia Platelet Estimate Platelet Comment Anisocytosis Anticoagulation Therapy Puncture Site ABG pH ABG pCO2 at Pt Temp ABG pO2 at Pt Temp ABG HCO3 ABG O2 Sat (Measured) ABG O2 Content ABG Base Excess Amando Test O2 Delivery Device Oxygen Flow Rate Vent Mode Vent Rate Mechanical Rate Pressure Support Vent Sodium 170 H* Potassium 3.3 L Chloride 138 H Carbon Dioxide 25 Anion Gap 7 L BUN 30 H Creatinine 1.0 Creat Clearance w eGFR 55.64 Random Glucose 129 H Lactic Acid 2.1 H Calcium 7.6 L Phosphorus Magnesium Troponin I Albumin 1.9 L Valproic Acid 04/12/18 04/13/18 04/13/18 22:45 00:22 05:30 WBC 20.6 H RBC 3.06 L Hgb 9.2 L Hct 28.6 L MCV 93.4 MCH 30.0 MCHC 32.1 RDW 19.0 H Plt Count 69 L MPV 11.7 H Absolute Neuts (auto) 15.6 H Total Counted 100 Neutrophils % 75.7 Neutrophils % (Manual) 72.0 Band Neutrophils % 7.0 Lymphocytes % 17.8 D Lymphocytes % (Manual) 13.0 Monocytes % 5.7 Monocytes % (Manual) 8 D Eosinophils % 0.4 D Basophils % 0.4 Nucleated RBC % 0 Hypochromia 1+ Platelet Estimate Decreased Platelet Comment No clumping noted Anisocytosis 1+ Anticoagulation Therapy No Result Required. Puncture Site No Result Required. ABG pH 7.39 ABG pCO2 at Pt Temp 42.4 ABG pO2 at Pt Temp 117.0 H D ABG HCO3 25.0 ABG O2 Sat (Measured) 98.5 ABG O2 Content 12.4 L ABG Base Excess 0.4 Amando Test No Result Required. O2 Delivery Device No Result Required. Oxygen Flow Rate No Result Required. Vent Mode No Result Required. Vent Rate No Result Required. Mechanical Rate No Result Required. Pressure Support Vent No Result Required. Sodium Potassium Chloride Carbon Dioxide Anion Gap BUN Creatinine Creat Clearance w eGFR Random Glucose Lactic Acid Calcium Phosphorus Magnesium Troponin I 0.02 Albumin Valproic Acid 04/13/18 04/13/18 04/13/18 05:30 05:30 05:30 WBC RBC Hgb Hct MCV MCH MCHC RDW Plt Count MPV Absolute Neuts (auto) Total Counted Neutrophils % Neutrophils % (Manual) Band Neutrophils % Lymphocytes % Lymphocytes % (Manual) Monocytes % Monocytes % (Manual) Eosinophils % Basophils % Nucleated RBC % Hypochromia Platelet Estimate Platelet Comment Anisocytosis Anticoagulation Therapy Puncture Site ABG pH ABG pCO2 at Pt Temp ABG pO2 at Pt Temp ABG HCO3 ABG O2 Sat (Measured) ABG O2 Content ABG Base Excess Amando Test O2 Delivery Device Oxygen Flow Rate Vent Mode Vent Rate Mechanical Rate Pressure Support Vent Sodium 164 H* Potassium 3.4 L Chloride 133 H Carbon Dioxide 28 Anion Gap 3 L BUN 25 H Creatinine 1.0 Creat Clearance w eGFR 55.64 Random Glucose 170 H Lactic Acid 1.8 Calcium 7.9 L Phosphorus 1.8 L Magnesium 2.2 Troponin I 0.04 Albumin Valproic Acid ASSESSMENT AND PLAN: Severe Sepsis r/o Recurrent C Diff Colitis Severe Hypernatremia Acute Kidney Injury Lactic Acidosis Thrombocytopenia h/o CVA Seizure Disorder Dementia - NE for hemodynamic support - antibiotics per ID - f/u cultures - IVF resuscitation - monitor urine output, creatinine - trend lactate - continue antiepileptics - aspiration precautions - O2 to keep SpO2 >90% - continue ICU monitoring Dr Early Critical care time spent in reviewing chart, evaluating patient and formulating plan 35 min
[2018-04-13] MEDS ORDERED: SODIUM CHLORIDE 1,000 ML IV SCH ×3 (15:33→19:56)
--- NOTE | 2018-04-13 15:39 | EKG ---
Test Reason : Blood Pressure : / mmHG Vent. Rate : 049 BPM Atrial Rate : 049 BPM P-R Int : 128 ms QRS Dur : 072 ms QT Int : 526 ms P-R-T Axes : 002 -03 045 degrees QTc Int : 475 ms SINUS BRADYCARDIA LOW VOLTAGE QRS POSSIBLE INFERIOR INFARCT , AGE UNDETERMINED T WAVE ABNORMALITY, CONSIDER ANTERIOR ISCHEMIA ABNORMAL ECG WHEN COMPARED WITH ECG OF 12-APR-2018 07:32, VENT. RATE HAS DECREASED BY 55 BPM T WAVE INVERSION NOW EVIDENT IN ANTERIOR LEADS QT HAS SHORTENED Confirmed by BRENTON ENCINAS MD ([id number]) on 04/13/2018 3:39:20 PM Referred By: Confirmed By:BRENTON ENCINAS MD
--- NOTE | 2018-04-13 16:45 | PN ---
Progress Note (short form) - Note Progress Note: Renal follow up for NICOLÁS/Severe Hypernatremia Pt seen and examined in the ICU awake but not verbal started on vasopressers overnight making urine Vital Signs Temperature 99.3 F 04/13/18 14:00 Pulse Rate 46 L 04/13/18 14:00 Respiratory Rate 24 04/13/18 14:00 Blood Pressure 89/56 04/13/18 14:00 O2 Sat by Pulse Oximetry (%) 98 04/13/18 10:00 Intake & Output 04/10/18 04/11/18 04/12/18 04/13/18 23:59 23:59 23:59 23:59 Intake Total 7250 1735 Output Total 200 2100 Balance 7050 -365 Weight 65.884 kg 65.771 kg NAD CTA No LE edema bingham in place CBC, BMP 04/13/18 05:30 04/13/18 05:30 Current Medications Acetaminophen (Ofirmev Injection -) 1,000 mg IVPB Q6H PRN PRN Reason: FEVER Last Admin: 04/13/18 10:03 Dose: 1,000 mg Albuterol Sulfate (Ventolin 0.083% Nebulizer Soln -) 1 amp NEB Q4H PRN PRN Reason: SHORT OF BREATH/WHEEZING Aspirin (Asa -) 81 mg PO DAILY [facility] Last Admin: 04/13/18 09:55 Dose: 81 mg Atorvastatin Calcium (Lipitor -) 40 mg GT HS [facility] Last Admin: 04/12/18 21:35 Dose: 40 mg Chlorhexidine Gluconate (Hibiclens For Decolonization -) 1 applic TP HS [facility] Last Admin: 04/12/18 21:37 Dose: 1 applic Heparin Sodium (Porcine) (Heparin -) 5,000 unit SQ BID [facility] Last Admin: 04/13/18 10:06 Dose: 5,000 unit Piperacillin Sod/Tazobactam (Sod 4.5 gm/ Dextrose) 100 mls @ 200 mls/hr IVPB Q6H-IV [facility]; Protocol Last Admin: 04/13/18 14:15 Dose: 200 mls/hr Norepinephrine Bitartrate 8, (000 mcg/ Dextrose) 500 mls @ 18.75 mls/hr IV TITR [facility]; Protocol Last Titration: 04/13/18 06:57 Dose: 15 mcg/min, 56.25 mls/hr Sodium Chloride (Normal Saline -) 1,000 mls @ 100 mls/hr IV ASDIR [facility] Lacosamide (Vimpat Liquid -) 10 mg GT BID [facility] Last Admin: 04/13/18 10:16 Dose: 10 mg Levetiracetam (Keppra Oral Solution -) 500 mg GT BID [facility] Last Admin: 04/13/18 09:59 Dose: 500 mg Multi-Ingredient Ointment (Zinc Oxide) 1 applic TP TID [facility] Last Admin: 04/13/18 14:14 Dose: 1 applic Mupirocin (Bactroban Ointment (For Decolonization) -) 1 applic NS BID [facility] Stop: 04/17/18 21:59 Last Admin: 04/13/18 10:01 Dose: 1 applic Non-Formulary Medication (Vit A/Vitamin D3/E/Aloe V/Zinc [Periguard Ointment]) 5 gm TP DAILY [facility] Valproate Sodium (Depakene -) 1,250 mg PO BID [facility] Last Admin: 04/13/18 09:56 Dose: 1,250 mg Vancomycin HCl (Vancomycin Oral Solution) 250 mg PEG Q6HPO [facility] Last Admin: 04/13/18 12:09 Dose: 250 mg 67 year old woman with Hx of CVA, Hypertension, Anemia, Dysphagia, recent VRE/ Cdiff who presented with AMS/Fever and admitted for sepsis syndrome with NICOLÁS and hypernatremia. #Sepsis Syndrome #NICOLÁS in setting of sepsis/volume depletion #Hypernatremia (water deficit now 5.4 L ) #Anemia #Thrombocytopenia #Recent VRE/Cdiff #lactic acidosis Renal function improved Serum na improved by 14 in ~24 hours continue isotonic saline at lower rate supplament K keep MAP > 65 continue Abx as per ID ICU monitoring Thank you Constantino Clemons DO
--- NOTE | 2018-04-13 16:47 | PN ---
Progress Note, Physician History of Present Illness: Pt seen and examined. Is currently on Levophed. Low grade fever 100.3F. No respiratory distress. No loose BMs reported. She is weak but verbally responsive. - Current Medication List Current Medications: Active Medications Acetaminophen (Ofirmev Injection -) 1,000 mg IVPB Q6H PRN PRN Reason: FEVER Last Admin: 04/13/18 10:03 Dose: 1,000 mg Albuterol Sulfate (Ventolin 0.083% Nebulizer Soln -) 1 amp NEB Q4H PRN PRN Reason: SHORT OF BREATH/WHEEZING Aspirin (Asa -) 81 mg PO DAILY [facility] Last Admin: 04/13/18 09:55 Dose: 81 mg Atorvastatin Calcium (Lipitor -) 40 mg GT HS [facility] Last Admin: 04/12/18 21:35 Dose: 40 mg Chlorhexidine Gluconate (Hibiclens For Decolonization -) 1 applic TP HS [facility] Last Admin: 04/12/18 21:37 Dose: 1 applic Heparin Sodium (Porcine) (Heparin -) 5,000 unit SQ BID [facility] Last Admin: 04/13/18 10:06 Dose: 5,000 unit Piperacillin Sod/Tazobactam (Sod 4.5 gm/ Dextrose) 100 mls @ 200 mls/hr IVPB Q6H-IV [facility]; Protocol Last Admin: 04/13/18 14:15 Dose: 200 mls/hr Norepinephrine Bitartrate 8, (000 mcg/ Dextrose) 500 mls @ 18.75 mls/hr IV TITR [facility]; Protocol Last Titration: 04/13/18 06:57 Dose: 15 mcg/min, 56.25 mls/hr Sodium Chloride (Normal Saline -) 1,000 mls @ 100 mls/hr IV ASDIR [facility] Lacosamide (Vimpat Liquid -) 10 mg GT BID [facility] Last Admin: 04/13/18 10:16 Dose: 10 mg Levetiracetam (Keppra Oral Solution -) 500 mg GT BID [facility] Last Admin: 04/13/18 09:59 Dose: 500 mg Multi-Ingredient Ointment (Zinc Oxide) 1 applic TP TID [facility] Last Admin: 04/13/18 14:14 Dose: 1 applic Mupirocin (Bactroban Ointment (For Decolonization) -) 1 applic NS BID [facility] Stop: 04/17/18 21:59 Last Admin: 04/13/18 10:01 Dose: 1 applic Non-Formulary Medication (Vit A/Vitamin D3/E/Aloe V/Zinc [Periguard Ointment]) 5 gm TP DAILY [facility] Valproate Sodium (Depakene -) 1,250 mg PO BID [facility] Last Admin: 04/13/18 09:56 Dose: 1,250 mg Vancomycin HCl (Vancomycin Oral Solution) 250 mg PEG Q6HPO [facility] Last Admin: 04/13/18 12:09 Dose: 250 mg - Objective Vital Signs: Vital Signs Temperature 99.3 F 04/13/18 14:00 Pulse Rate 46 L 04/13/18 14:00 Respiratory Rate 24 04/13/18 14:00 Blood Pressure 89/56 04/13/18 14:00 O2 Sat by Pulse Oximetry (%) 98 04/13/18 10:00 Constitutional: Yes: No Distress, Calm Cardiovascular: Yes: Regular Rate and Rhythm Respiratory: Yes: CTA Bilaterally Gastrointestinal: Yes: Normal Bowel Sounds, Soft, Other (peg site clean) Genitourinary: Yes: Handy Present Extremities: Yes: WNL Integumentary: Yes: WNL Neurological: Yes: Alert, Tremors (upper ext b/l) Psychiatric: Yes: Alert Labs: CBC, BMP 04/13/18 05:30 04/13/18 05:30 INR, PTT INR 1.28 (0.83-1.09) H 04/12/18 07:45 - ....Imaging Chest X-ray: Report Reviewed Problem List - Problems (1) Hypernatremia Code(s): E87.0 - HYPEROSMOLALITY AND HYPERNATREMIA (2) Sepsis Code(s): A41.9 - SEPSIS, UNSPECIFIED ORGANISM Qualifiers: Sepsis type: sepsis due to unspecified organism Qualified Code(s): A41.9 - Sepsis, unspecified organism (3) NICOLÁS (acute kidney injury) Code(s): N17.9 - ACUTE KIDNEY FAILURE, UNSPECIFIED (4) Anemia Code(s): D64.9 - ANEMIA, UNSPECIFIED Qualifiers: Anemia type: unspecified type Qualified Code(s): D64.9 - Anemia, unspecified (5) CVA (cerebral vascular accident) Code(s): I63.9 - CEREBRAL INFARCTION, UNSPECIFIED Qualifiers: CVA mechanism: unspecified Qualified Code(s): I63.9 - Cerebral infarction, unspecified (6) Clostridium difficile diarrhea Code(s): A04.72 - ENTEROCOLITIS D/T CLOSTRIDIUM DIFFICILE, NOT SPCF RECUR (7) Failure to thrive in adult Code(s): R62.7 - ADULT FAILURE TO THRIVE (8) HLD (hyperlipidemia) Code(s): E78.5 - HYPERLIPIDEMIA, UNSPECIFIED (9) HTN (hypertension) Code(s): I10 - ESSENTIAL (PRIMARY) HYPERTENSION (10) Lactic acidosis Code(s): E87.2 - ACIDOSIS (11) Seizure Code(s): R56.9 - UNSPECIFIED CONVULSIONS Assessment/Plan 67 y.o. female with PMH of HTN, HLD, CVA, dysphagia/peg, seizure d.o., treated recently for sepsis due to VRE/Clostridium bacteremia and C. difficile colitis presenting with AMS, hypotension, hypernatremia, fever, leukocytosis, elevated lactic acid. Hospital records/imaging/labs reviewed Severe Sepsis - etiology unclear Shock AMS Fever - low grade persists Leukocytosis - wbc elevated NICOLÁS Lactic acidosis History of VRE/Clostridium bacteremia C. difficile Colitis Seizure d.o. CVA -- continue Zosyn empirically for now, cont. Vancomycin gt -- d/c Daptomycin -- Blood cultures no growth in 24hrs, urine culture negative -- pt without diarrhea -- lactate normal, renal function improving -- wbc elevated from yesterday -- monitor wbc trend, temperatures closely -- if wbc continues to rise or fevers persist will suggest CT chest/abd/pelvis -- rest of care per ICU will f/u cc time: 40 min
[2018-04-13] MEDS: SODIUM CHLORIDE 1,000 ML IV SCH (17:50)
[2018-04-13 19:20] LABS: ANION GAP 6 MMOL/L (8-16); BLOOD UREA NITROGEN 13 mg/dL (7-18); CALCIUM 7.9 mg/dL (8.5-10.1); CHLORIDE 130 mmol/L (98-107); CO2 27 mmol/L (21-32); CREATININE 0.8 mg/dL (0.55-1.3); GLUCOSE,RANDOM 149 mg/dL (74-106); POTASSIUM 3.6 mmol/L (3.5-5.1)
[2018-04-13 19:26] LABS: SODIUM 163 mmol/L (136-145)
[2018-04-13] MEDS: ATORVASTATIN CA 40 MG TABLET (FP) GT SCH (21:17)
[2018-04-13] MEDS: CHLORHEXIDINE GLUCONATE 4% CLEANSER FOR DECOLONIZATION TP SCH (23:00)
[2018-04-14] MEDS: VANCOMYCIN 250 MG/5 ML ORAL SOLUTION PEG SCH ×5 (01:00→23:52)
[2018-04-14] MEDS ORDERED: NOREPINEPHRINE BITARTRATE 4 MG/4 ML ML IV ONE ×3 (01:09→22:13)
[2018-04-14] MEDS: NOREPINEPHRINE BITARTRATE 8,000 MCG in DEXTROSE 5%-WATER - 492 ML IV SCH ×3 (01:48→22:49)
[2018-04-14] MEDS: PIPERACILLIN/TAZOB 4.5 GM 4.5 GM in DEXTROSE 5%-WATER 100 ML IVPB SCH ×4 (04:00→20:21)
[2018-04-14] MEDS ORDERED: DEXTROSE 5%-WATER 100 ML IVPB ONE ×3 (05:47→20:18)
[2018-04-14] MEDS ORDERED: PIPERACILLIN/TAZOBACTAM 4.5 GM VIAL IVPB ONE ×3 (05:47→20:18)
[2018-04-14 05:54] LABS: BASO % 0.2 % (0-2.0); EOS % 3.1 % (0-4.5); HEMATOCRIT 28.4 % (32.4-45.2); HEMOGLOBIN 9.6 GM/dL (10.7-15.3); LYMPH % 23.1 % (8-40); MCH 30.8 pg (25.7-33.7); MEAN CELL VOLUME 90.8 fl (80-96); MEAN PLT VOLUME 11.4 fl (7.5-11.1); NEUT % 68.6 % (42.8-82.8); PLATELET COUNT 81 K/MM3 (134-434); RBC 3.12 M/mm3 (3.60-5.2); RDW 18.5 % (11.6-15.6); WHITE BLOOD COUNT 10.5 K/mm3 (4.0-10.0)
[2018-04-14] MEDS: ZINC OXIDE 20% TOPICAL OINTMENT 30 GM TUBE TP SCH ×3 (06:01→22:08)
[2018-04-14 06:10] LABS: ANION GAP 3 MMOL/L (8-16); BLOOD UREA NITROGEN 8 mg/dL (7-18); CALCIUM 7.9 mg/dL (8.5-10.1); CHLORIDE 123 mmol/L (98-107); CO2 30 mmol/L (21-32); MAGNESIUM 1.6 mg/dL (1.8-2.4); POTASSIUM 3.2 mmol/L (3.5-5.1); SODIUM 156 mmol/L (136-145)
[2018-04-14 06:13] LABS: CREATININE 0.7 mg/dL (0.55-1.3); GLUCOSE,RANDOM 143 mg/dL (74-106); PHOSPHOROUS 2.7 mg/dL (2.5-4.9)
[2018-04-14] MEDS ORDERED: MAGNESIUM SULF 50% (8.12 MEQ/2 ML-1 GM VIAL) IVPB ONE (07:08)
[2018-04-14] MEDS ORDERED: POTASSIUM CHLORIDE 20 MEQ PREMIX IVPB 100 ML IVPB ONE (07:49)
[2018-04-14] MEDS ORDERED: KCL 20 MEQ PREMIX BAG 100 ML IVPB ONE (08:00)
[2018-04-14] MEDS ORDERED: PT OWN MED DRAWER 7, Y5N ONE ×2 (09:47→21:33)
[2018-04-14] MEDS: SODIUM CHLORIDE 1,000 ML IV SCH ×2 (09:52→23:06)
[2018-04-14] MEDS: MUPIROCIN 2% TOPICAL OINTMENT FOR DECOLONIZATION NS SCH ×2 (09:55→21:39)
[2018-04-14] MEDS: VALPROATE SODIUM 250 MG/5 ML UNIT DOSE CUP PO SCH ×2 (09:55→21:38)
[2018-04-14] MEDS: ASPIRIN 81 MG CHEWABLE TABLETS PO SCH (09:55)
[2018-04-14] MEDS: HEPARIN NA (PORCINE) 5,000 UNITS/ML 1ML VIAL SQ SCH ×2 (09:59→21:38)
[2018-04-14] MEDS: levETIRAcetam 500 MG/5 ML ORAL SOLUTION (UNIT-DOSE CUPS) GT SCH ×2 (10:02→21:39)
[2018-04-14] MEDS: Lacosamide 50 MG/5 ML ORAL SOLUTION UNIT CUPS GT SCH ×2 (10:03→21:42)
--- NOTE | 2018-04-14 10:14 | PN ---
Progress Note (short form) - Note Progress Note: pt seen/ examined . chart reviewed. more awake. denies pain remains on pressors Vital Signs Temp 99.4 F 04/14/18 05:00 Pulse 62 04/14/18 05:00 Resp 14 04/14/18 05:00 BP 114/71 04/14/18 05:00 Pulse Ox 98 04/13/18 21:00 Intake & Output 04/13/18 04/13/18 04/14/18 11:59 23:59 11:59 Intake Total 1735 3068 1100 Output Total 1000 3700 1300 Balance 735 -632 -200 Weight 145 lb 4 oz 145 lb 144 lb 8 oz Intake: IV 1575 1718 1000 Levophed - 8,000 Mcg In 668 400 D5w - 492 ml @ 5 MCG/MIN 18.75 mls/hr IV TITR [facility] Rx#:[id number] Adis-Synephrine - 20,000 525 Mcg In Normal Saline - 248 ml @ 100 MCG/MIN 75 mls/hr IVPB TITR [facility] Rx#: [id number] Normal Saline - 1,000 ml 900 600 @ 100 mls/hr IV ASDIR [facility] Rx#:[id number] Normal Saline - 1,000 ml 1050 150 @ 150 mls/hr IV ASDIR [facility] Rx#:[id number] IVPB 100 650 100 Tube Feeding 60 Tube Irrigant 700 Output: Urine 1000 3700 1300 Handy 1000 3700 1300 Other: Voiding Method Indwelling Catheter Indwelling Catheter Bowel Movement Yes Yes # Bowel Movements 1 1 1 Height 5 ft 6 in Body Mass Index (BMI) 23.3 Weight Measurement Method Built in [facility] Built in [facility] Active Medications Acetaminophen (Ofirmev Injection -) 1,000 mg IVPB Q6H PRN PRN Reason: FEVER Last Admin: 04/13/18 10:03 Dose: 1,000 mg Albuterol Sulfate (Ventolin 0.083% Nebulizer Soln -) 1 amp NEB Q4H PRN PRN Reason: SHORT OF BREATH/WHEEZING Aspirin (Asa -) 81 mg PO DAILY [facility] Last Admin: 04/13/18 09:55 Dose: 81 mg Atorvastatin Calcium (Lipitor -) 40 mg GT HS [facility] Last Admin: 04/13/18 21:17 Dose: 40 mg Chlorhexidine Gluconate (Hibiclens For Decolonization -) 1 applic TP HS [facility] Last Admin: 04/13/18 23:00 Dose: 1 applic Heparin Sodium (Porcine) (Heparin -) 5,000 unit SQ BID [facility] Last Admin: 04/13/18 21:18 Dose: 5,000 unit Piperacillin Sod/Tazobactam (Sod 4.5 gm/ Dextrose) 100 mls @ 200 mls/hr IVPB Q6H-IV [facility]; Protocol Last Admin: 04/14/18 04:00 Dose: 200 mls/hr Norepinephrine Bitartrate 8, (000 mcg/ Dextrose) 500 mls @ 18.75 mls/hr IV TITR [facility]; Protocol Last Admin: 04/14/18 01:48 Dose: 15 mcg/min, 56.25 mls/hr Sodium Chloride (Normal Saline -) 1,000 mls @ 75 mls/hr IV ASDIR [facility] Lacosamide (Vimpat Liquid -) 10 mg GT BID [facility] Last Admin: 04/13/18 21:17 Dose: 10 mg Levetiracetam (Keppra Oral Solution -) 500 mg GT BID [facility] Last Admin: 04/13/18 21:21 Dose: 500 mg Multi-Ingredient Ointment (Zinc Oxide) 1 applic TP TID [facility] Last Admin: 04/14/18 06:01 Dose: 1 applic Mupirocin (Bactroban Ointment (For Decolonization) -) 1 applic NS BID [facility] Stop: 04/17/18 21:59 Last Admin: 04/13/18 22:00 Dose: 1 applic Non-Formulary Medication (Vit A/Vitamin D3/E/Aloe V/Zinc [Periguard Ointment]) 5 gm TP DAILY [facility] Valproate Sodium (Depakene -) 1,250 mg PO BID [facility] Last Admin: 04/13/18 21:21 Dose: 1,250 mg Vancomycin HCl (Vancomycin Oral Solution) 250 mg PEG Q6HPO [facility] Last Admin: 04/14/18 06:00 Dose: 250 mg CBC, BMP 04/14/18 05:30 04/14/18 05:30 Microbiology 04/12/18 08:00 Blood Culture - Preliminary Blood - Peripheral Venous NO GROWTH OBTAINED AFTER 48 HOURS, INCUBATION TO CONTINUE FOR 3 DAYS. 04/12/18 08:00 Blood Culture - Preliminary Blood - Peripheral Venous NO GROWTH OBTAINED AFTER 48 HOURS, INCUBATION TO CONTINUE FOR 3 DAYS. 04/12/18 07:45 Urine Culture - Final Urine - Urine - Catheterized NO GROWTH OBTAINED Physical Exam S1 S2 RRR Lungs decreased breath sounds B/L Abd- soft, tenderness diffuse, ND, BS+ No edema. PLAN Better on Levophed drip -- taper Abx Monitor lytes will follow icu team also following Problem List - Problems (1) Hypernatremia Code(s): E87.0 - HYPEROSMOLALITY AND HYPERNATREMIA (2) Sepsis Code(s): A41.9 - SEPSIS, UNSPECIFIED ORGANISM Qualifiers: Sepsis type: sepsis due to unspecified organism Qualified Code(s): A41.9 - Sepsis, unspecified organism (3) NICOLÁS (acute kidney injury) Code(s): N17.9 - ACUTE KIDNEY FAILURE, UNSPECIFIED (4) Anemia Code(s): D64.9 - ANEMIA, UNSPECIFIED Qualifiers: Anemia type: unspecified type Qualified Code(s): D64.9 - Anemia, unspecified
--- NOTE | 2018-04-14 11:45 | PN ---
Teaching Attending Note Name of Resident: Mateo Valentin ATTENDING PHYSICIAN STATEMENT I saw and evaluated the patient. I reviewed the resident's note and discussed the case with the resident. I agree with the resident's findings and plan as documented. SUBJECTIVE: Patient seen and examined in the ICU. Awake and able some questions, but confused. On 13 mcq NE for hemodynamic support. Denies CP or SOB. Intake & Output 04/11/18 04/12/18 04/13/18 04/14/18 23:59 23:59 23:59 23:59 Intake Total 7500 4803 1100 Output Total 200 4700 1300 Balance 7300 103 -200 Weight 145 lb 4 oz 145 lb 144 lb 8 oz Last Vital Signs Temp Pulse Resp BP Pulse Ox 99.0 F 70 18 127/90 100 04/14/18 10:00 04/14/18 10:00 04/14/18 10:00 04/14/18 10:00 04/14/18 10:00 Active Medications Acetaminophen (Ofirmev Injection -) 1,000 mg IVPB Q6H PRN PRN Reason: FEVER Last Admin: 04/13/18 10:03 Dose: 1,000 mg Albuterol Sulfate (Ventolin 0.083% Nebulizer Soln -) 1 amp NEB Q4H PRN PRN Reason: SHORT OF BREATH/WHEEZING Aspirin (Asa -) 81 mg PO DAILY [facility] Last Admin: 04/14/18 09:55 Dose: 81 mg Atorvastatin Calcium (Lipitor -) 40 mg GT HS [facility] Last Admin: 04/13/18 21:17 Dose: 40 mg Chlorhexidine Gluconate (Hibiclens For Decolonization -) 1 applic TP HS [facility] Last Admin: 04/13/18 23:00 Dose: 1 applic Heparin Sodium (Porcine) (Heparin -) 5,000 unit SQ BID [facility] Last Admin: 04/14/18 09:59 Dose: 5,000 unit Piperacillin Sod/Tazobactam (Sod 4.5 gm/ Dextrose) 100 mls @ 200 mls/hr IVPB Q6H-IV [facility]; Protocol Last Admin: 04/14/18 10:00 Dose: 200 mls/hr Norepinephrine Bitartrate 8, (000 mcg/ Dextrose) 500 mls @ 18.75 mls/hr IV TITR [facility]; Protocol Last Admin: 04/14/18 10:29 Dose: 15 mcg/min, 56.25 mls/hr Sodium Chloride (Normal Saline -) 1,000 mls @ 75 mls/hr IV ASDIR [facility] Last Admin: 04/14/18 09:52 Dose: 75 mls/hr Lacosamide (Vimpat Liquid -) 10 mg GT BID [facility] Last Admin: 04/14/18 10:03 Dose: 10 mg Levetiracetam (Keppra Oral Solution -) 500 mg GT BID [facility] Last Admin: 04/14/18 10:02 Dose: 500 mg Multi-Ingredient Ointment (Zinc Oxide) 1 applic TP TID [facility] Last Admin: 04/14/18 06:01 Dose: 1 applic Mupirocin (Bactroban Ointment (For Decolonization) -) 1 applic NS BID [facility] Stop: 04/17/18 21:59 Last Admin: 04/14/18 09:55 Dose: 1 applic Non-Formulary Medication (Vit A/Vitamin D3/E/Aloe V/Zinc [Periguard Ointment]) 5 gm TP DAILY [facility] Valproate Sodium (Depakene -) 1,250 mg PO BID [facility] Last Admin: 04/14/18 09:55 Dose: 1,250 mg Vancomycin HCl (Vancomycin Oral Solution) 250 mg PEG Q6HPO [facility] Last Admin: 04/14/18 06:00 Dose: 250 mg Gen: More awake and alert, NAD Heart: tachycardic, regular Lung: decreased breath sounds at the bases Abd: softly distended, nontender Ext: no edema Laboratory Results - last 24 hr 04/13/18 04/14/18 04/14/18 18:30 05:30 05:30 WBC 10.5 H RBC 3.12 L Hgb 9.6 L Hct 28.4 L MCV 90.8 MCH 30.8 MCHC 34.0 RDW 18.5 H Plt Count 81 L MPV 11.4 H Absolute Neuts (auto) 7.2 Neutrophils % 68.6 Lymphocytes % 23.1 D Monocytes % 5.0 Eosinophils % 3.1 D Basophils % 0.2 Nucleated RBC % 0 Sodium 163 H* 156 H Potassium 3.6 3.2 L Chloride 130 H 123 H Carbon Dioxide 27 30 Anion Gap 6 L 3 L BUN 13 8 Creatinine 0.8 0.7 Creat Clearance w eGFR > 60 > 60 Random Glucose 149 H 143 H Calcium 7.9 L 7.9 L Phosphorus 2.7 Magnesium 1.6 L ASSESSMENT AND PLAN: Septic Shock Suspected Recurrent C Diff Colitis Severe Hypernatremia Acute Kidney Injury Lactic Acidosis Thrombocytopenia h/o CVA Seizure Disorder Dementia - NE for hemodynamic support: if pressor requirement increases further: can add Hydrocortisone/Fludrocortisone - ABX per ID - f/u final cultures - IVF resuscitation - monitor urine output, creatinine - continue antiepileptics - aspiration precautions - O2 to keep SpO2 >90% - continue ICU monitoring Dr Early Critical care time spent in reviewing chart, evaluating patient and formulating plan 35 min
--- NOTE | 2018-04-14 13:57 | PN ---
Physical Exam: SUBJECTIVE: Patient seen and examined. No acute events overnight. Pt. says she feels much better. Pt. says that she feels hungry and denies any diarrhea or pain anywhere. OBJECTIVE: Vital Signs Period Temp Pulse Resp BP Sys/Levine Pulse Ox Last 24 Hr 99.0 F-99.5 F 46-74 14-24 89-127/52-90 98-100 GENERAL: The patient is awake, A&O x 0, in no acute distress, responds to commands and answers questions. ENT: Ears normal, nares patent, oropharynx clear without exudates, moist mucous membranes. LUNGS: Breath sounds equal, clear to auscultation bilaterally, no wheezes, no crackles, no accessory muscle use. HEART: Irregular rate and rhythm, S1, S2 without murmur ABDOMEN: Soft, nondistended, normoactive bowel sounds, no guarding, no rebound, tender to palpation in the lower abdomen? EXTREMITIES: 2+ dorsal pedal pulses, warm, well-perfused, no edema. SKIN: Warm, dry, Laboratory Results - last 24 hr 04/13/18 04/14/18 04/14/18 18:30 05:30 05:30 WBC 10.5 H RBC 3.12 L Hgb 9.6 L Hct 28.4 L MCV 90.8 MCH 30.8 MCHC 34.0 RDW 18.5 H Plt Count 81 L MPV 11.4 H Absolute Neuts (auto) 7.2 Neutrophils % 68.6 Lymphocytes % 23.1 D Monocytes % 5.0 Eosinophils % 3.1 D Basophils % 0.2 Nucleated RBC % 0 Sodium 163 H* 156 H Potassium 3.6 3.2 L Chloride 130 H 123 H Carbon Dioxide 27 30 Anion Gap 6 L 3 L BUN 13 8 Creatinine 0.8 0.7 Creat Clearance w eGFR > 60 > 60 Random Glucose 149 H 143 H Calcium 7.9 L 7.9 L Phosphorus 2.7 Magnesium 1.6 L Active Medications Current Medications Acetaminophen (Ofirmev Injection -) 1,000 mg IVPB Q6H PRN PRN Reason: FEVER Last Admin: 04/13/18 10:03 Dose: 1,000 mg Albuterol Sulfate (Ventolin 0.083% Nebulizer Soln -) 1 amp NEB Q4H PRN PRN Reason: SHORT OF BREATH/WHEEZING Aspirin (Asa -) 81 mg PO DAILY [facility] Last Admin: 04/14/18 09:55 Dose: 81 mg Atorvastatin Calcium (Lipitor -) 40 mg GT HS [facility] Last Admin: 04/13/18 21:17 Dose: 40 mg Chlorhexidine Gluconate (Hibiclens For Decolonization -) 1 applic TP HS [facility] Last Admin: 04/13/18 23:00 Dose: 1 applic Heparin Sodium (Porcine) (Heparin -) 5,000 unit SQ BID [facility] Last Admin: 04/14/18 09:59 Dose: 5,000 unit Piperacillin Sod/Tazobactam (Sod 4.5 gm/ Dextrose) 100 mls @ 200 mls/hr IVPB Q6H-IV [facility]; Protocol Last Admin: 04/14/18 10:00 Dose: 200 mls/hr Norepinephrine Bitartrate 8, (000 mcg/ Dextrose) 500 mls @ 18.75 mls/hr IV TITR [facility]; Protocol Last Titration: 04/14/18 13:38 Dose: 12 mcg/min, 45 mls/hr Sodium Chloride (Normal Saline -) 1,000 mls @ 75 mls/hr IV ASDIR [facility] Last Admin: 04/14/18 09:52 Dose: 75 mls/hr Lacosamide (Vimpat Liquid -) 10 mg GT BID [facility] Last Admin: 04/14/18 10:03 Dose: 10 mg Levetiracetam (Keppra Oral Solution -) 500 mg GT BID [facility] Last Admin: 04/14/18 10:02 Dose: 500 mg Multi-Ingredient Ointment (Zinc Oxide) 1 applic TP TID [facility] Last Admin: 04/14/18 06:01 Dose: 1 applic Mupirocin (Bactroban Ointment (For Decolonization) -) 1 applic NS BID [facility] Stop: 04/17/18 21:59 Last Admin: 04/14/18 09:55 Dose: 1 applic Non-Formulary Medication (Vit A/Vitamin D3/E/Aloe V/Zinc [Periguard Ointment]) 5 gm TP DAILY [facility] Valproate Sodium (Depakene -) 1,250 mg PO BID [facility] Last Admin: 04/14/18 09:55 Dose: 1,250 mg Vancomycin HCl (Vancomycin Oral Solution) 250 mg PEG Q6HPO [facility] Last Admin: 04/14/18 06:00 Dose: 250 mg ASSESSMENT/PLAN: A 67yo female w/ PMHx. of HTN, hyperlipidemia, seizure disorder, CVA, dementia, recent hospitalizations for recurrent C diff colitis who was transferred from the senior care for altered mental status and fevers. Found to be severely hypernatremic to 180 with acute renal failure. #Cardiovascular -HTN hold anti-HTN meds keep MAP above 65 decreased Normal Saline to 75ml/hr decreased Levophed to 12mcg/hr c/w monitoring BP can give Hydrocortisone 50mg and Fludrocortisone 50mg is BP continues to drop. Can give midrodine if BP continues to drop as well. -HLD c/w Lipitor #Gastroenterology -Recent hospitalization for C.diff D/C-ed Metronidazole c/w Vancomycin D/c-ed Daptomycin contact precautions completed Diflucan dose for broad spectrum coverage. f/u ova and parasite Cx. #Renal -Acute Renal Failure Admission Cr. was 1.5-->.1.3-->1.0, Pt.'s baseline is 0.4-0.7 Dr. Clemons (Nephrology) consult appreciated -Hypernatremia c/w NS @ 75ml/hr Goal of decreasing sodium by 0.5 units per hour #Neurology -Seizure disorder c/w Keppra c/w Valproic Acid c/w Lacosimide #DVT Ppx. -Hold Lovenox as Pt. is in acute renal failure #F/E/N -Titrated NS to 75ml/hr -Na+ is now 156, monitoring to decrease Na+ by 0.5 units/hr -f/u BMP @ 6pm -Free water deficit of 5.1L -RD consult appreciated. Started Osmolite 1.2 @ 20cc/hr, increase slowly to 1300ml volume. Total free water 1066ml w/ 20ml/hr pump flush, would consider restarting tube feeds in the AM pending clinical status and Na+ level. #Dispo: ICU We will continue to follow the patient. Thank you for this consultative opportunity. Visit type - Emergency Visit Emergency Visit: Yes ED Registration Date: 04/12/18 Care time: The patient presented to the Emergency Department on the above date and was hospitalized for further evaluation of their emergent condition. - New Patient This patient is new to me today: No - Critical Care Critical Care patient: No - Discharge Referral Referred to [facility] Med [facility].C.: No
--- NOTE | 2018-04-14 16:42 | PN ---
Progress Note, Physician History of Present Illness: Pt is alert and more responsive today, answering questions. Norepinephrine being tapered. + LBM x 3 today. Pt currently afebrile. - Current Medication List Current Medications: Active Medications Acetaminophen (Ofirmev Injection -) 1,000 mg IVPB Q6H PRN PRN Reason: FEVER Last Admin: 04/13/18 10:03 Dose: 1,000 mg Albuterol Sulfate (Ventolin 0.083% Nebulizer Soln -) 1 amp NEB Q4H PRN PRN Reason: SHORT OF BREATH/WHEEZING Aspirin (Asa -) 81 mg PO DAILY [facility] Last Admin: 04/14/18 09:55 Dose: 81 mg Atorvastatin Calcium (Lipitor -) 40 mg GT HS [facility] Last Admin: 04/13/18 21:17 Dose: 40 mg Chlorhexidine Gluconate (Hibiclens For Decolonization -) 1 applic TP HS [facility] Last Admin: 04/13/18 23:00 Dose: 1 applic Heparin Sodium (Porcine) (Heparin -) 5,000 unit SQ BID [facility] Last Admin: 04/14/18 09:59 Dose: 5,000 unit Piperacillin Sod/Tazobactam (Sod 4.5 gm/ Dextrose) 100 mls @ 200 mls/hr IVPB Q6H-IV [facility]; Protocol Last Admin: 04/14/18 14:11 Dose: 200 mls/hr Norepinephrine Bitartrate 8, (000 mcg/ Dextrose) 500 mls @ 18.75 mls/hr IV TITR [facility]; Protocol Last Titration: 04/14/18 15:54 Dose: 9 mcg/min, 33.75 mls/hr Sodium Chloride (Normal Saline -) 1,000 mls @ 75 mls/hr IV ASDIR [facility] Last Admin: 04/14/18 09:52 Dose: 75 mls/hr Lacosamide (Vimpat Liquid -) 10 mg GT BID [facility] Last Admin: 04/14/18 10:03 Dose: 10 mg Levetiracetam (Keppra Oral Solution -) 500 mg GT BID [facility] Last Admin: 04/14/18 10:02 Dose: 500 mg Multi-Ingredient Ointment (Zinc Oxide) 1 applic TP TID [facility] Last Admin: 04/14/18 14:11 Dose: 1 applic Mupirocin (Bactroban Ointment (For Decolonization) -) 1 applic NS BID [facility] Stop: 04/17/18 21:59 Last Admin: 04/14/18 09:55 Dose: 1 applic Non-Formulary Medication (Vit A/Vitamin D3/E/Aloe V/Zinc [Periguard Ointment]) 5 gm TP DAILY [facility] Valproate Sodium (Depakene -) 1,250 mg PO BID [facility] Last Admin: 04/14/18 09:55 Dose: 1,250 mg Vancomycin HCl (Vancomycin Oral Solution) 250 mg PEG Q6HPO [facility] Last Admin: 04/14/18 14:11 Dose: 250 mg - Objective Vital Signs: Vital Signs Temperature 99.0 F 04/14/18 10:00 Pulse Rate 80 04/14/18 15:54 Respiratory Rate 16 04/14/18 15:00 Blood Pressure 117/77 04/14/18 15:54 O2 Sat by Pulse Oximetry (%) 100 04/14/18 10:00 Constitutional: Yes: No Distress, Calm Cardiovascular: Yes: Regular Rate and Rhythm Respiratory: Yes: CTA Bilaterally Gastrointestinal: Yes: Normal Bowel Sounds, Soft Genitourinary: Yes: WNL Extremities: Yes: WNL Neurological: Yes: Tremors Labs: CBC, BMP 04/14/18 05:30 04/14/18 05:30 INR, PTT INR 1.28 (0.83-1.09) H 04/12/18 07:45 Microbiology 04/12/18 08:00 Blood - Peripheral Venous Blood Culture - Preliminary NO GROWTH OBTAINED AFTER 48 HOURS, INCUBATION TO CONTINUE FOR 3 DAYS. 04/12/18 08:00 Blood - Peripheral Venous Blood Culture - Preliminary NO GROWTH OBTAINED AFTER 48 HOURS, INCUBATION TO CONTINUE FOR 3 DAYS. 04/12/18 07:45 Urine - Urine - Catheterized Urine Culture - Final NO GROWTH OBTAINED Problem List - Problems (1) Hypernatremia Code(s): E87.0 - HYPEROSMOLALITY AND HYPERNATREMIA (2) Sepsis Code(s): A41.9 - SEPSIS, UNSPECIFIED ORGANISM Qualifiers: Sepsis type: sepsis due to unspecified organism Qualified Code(s): A41.9 - Sepsis, unspecified organism (3) NICOLÁS (acute kidney injury) Code(s): N17.9 - ACUTE KIDNEY FAILURE, UNSPECIFIED (4) Anemia Code(s): D64.9 - ANEMIA, UNSPECIFIED Qualifiers: Anemia type: unspecified type Qualified Code(s): D64.9 - Anemia, unspecified (5) CVA (cerebral vascular accident) Code(s): I63.9 - CEREBRAL INFARCTION, UNSPECIFIED Qualifiers: CVA mechanism: unspecified Qualified Code(s): I63.9 - Cerebral infarction, unspecified (6) Clostridium difficile diarrhea Code(s): A04.72 - ENTEROCOLITIS D/T CLOSTRIDIUM DIFFICILE, NOT SPCF RECUR (7) Failure to thrive in adult Code(s): R62.7 - ADULT FAILURE TO THRIVE (8) HLD (hyperlipidemia) Code(s): E78.5 - HYPERLIPIDEMIA, UNSPECIFIED (9) HTN (hypertension) Code(s): I10 - ESSENTIAL (PRIMARY) HYPERTENSION (10) Lactic acidosis Code(s): E87.2 - ACIDOSIS (11) Seizure Code(s): R56.9 - UNSPECIFIED CONVULSIONS Assessment/Plan 67 y.o. female with PMH of HTN, HLD, CVA, dysphagia/peg, seizure d.o., treated recently for sepsis due to VRE/Clostridium bacteremia and C. difficile colitis presenting with AMS, hypotension, hypernatremia, fever, leukocytosis, elevated lactic acid. Hospital records/imaging/labs reviewed Severe Sepsis Shock AMS Fever Leukocytosis NICOLÁS Lactic acidosis History of VRE/Clostridium bacteremia C. difficile Colitis Seizure d.o. CVA -- continue Zosyn empirically for now, will consider d/c if continues to stabilize -- cont. Vancomycin gt -- Blood and Urine cultures negative -- lactate normal, renal function improving -- wbc trended down to normal, pt currently afebrile -- rest of care per ICU will f/u cc time: 40 min
[2018-04-14] MEDS: CHLORHEXIDINE GLUCONATE 4% CLEANSER FOR DECOLONIZATION TP SCH (21:39)
[2018-04-14] MEDS: ATORVASTATIN CA 40 MG TABLET (FP) GT SCH (21:40)
[2018-04-15] MEDS ORDERED: DEXTROSE 5%-WATER 100 ML IVPB ONE ×4 (02:42→20:33)
[2018-04-15] MEDS ORDERED: PIPERACILLIN/TAZOBACTAM 4.5 GM VIAL IVPB ONE ×5 (02:42→20:33)
[2018-04-15] MEDS: PIPERACILLIN/TAZOB 4.5 GM 4.5 GM in DEXTROSE 5%-WATER 100 ML IVPB SCH ×4 (02:54→20:38)
[2018-04-15] MEDS: ZINC OXIDE 20% TOPICAL OINTMENT 30 GM TUBE TP SCH ×3 (06:02→21:53)
[2018-04-15] MEDS: VANCOMYCIN 250 MG/5 ML ORAL SOLUTION PEG SCH ×3 (06:02→18:00)
[2018-04-15] MEDS ORDERED: PT OWN MED DRAWER 7, Y5N ONE ×3 (07:11→20:33)
[2018-04-15 08:37] LABS: BASO % 0.1 % (0-2.0); HEMATOCRIT 28.3 % (32.4-45.2); HEMOGLOBIN 9.6 GM/dL (10.7-15.3); LYMPH % 22.7 % (8-40); MCH 30.2 pg (25.7-33.7); MCHC 33.9 g/dl (32.0-36.0); MEAN PLT VOLUME 11.1 fl (7.5-11.1); MONO % 6.4 % (3.8-10.2); NEUT % 67.8 % (42.8-82.8); PLATELET COUNT 91 K/MM3 (134-434); RBC 3.18 M/mm3 (3.60-5.2); RDW 18.2 % (11.6-15.6); WHITE BLOOD COUNT 6.7 K/mm3 (4.0-10.0)
[2018-04-15 08:52] LABS: ANION GAP 6 MMOL/L (8-16); BLOOD UREA NITROGEN 5 mg/dL (7-18); CALCIUM 7.9 mg/dL (8.5-10.1); CHLORIDE 116 mmol/L (98-107); CO2 28 mmol/L (21-32); CREATININE 0.6 mg/dL (0.55-1.3); GLUCOSE,RANDOM 129 mg/dL (74-106); MAGNESIUM 1.8 mg/dL (1.8-2.4); PHOSPHOROUS 2.8 mg/dL (2.5-4.9); SODIUM 150 mmol/L (136-145)
[2018-04-15] MEDS ORDERED: POTASSIUM CHLORIDE 20 MEQ PREMIX IVPB 100 ML IVPB ONE ×2 (09:37→10:37)
--- NOTE | 2018-04-15 09:39 | PN ---
Teaching Attending Note Name of Resident: Mateo Valentin ATTENDING PHYSICIAN STATEMENT I saw and evaluated the patient. I reviewed the resident's note and discussed the case with the resident. I agree with the resident's findings and plan as documented. SUBJECTIVE: Patient seen and examined in the ICU. Awake and able to answer some questions, but confused. On 8 mcq NE for hemodynamic support (13 mcq yesterday). Denies CP or SOB. Intake & Output 04/12/18 04/13/18 04/14/18 04/15/18 23:59 23:59 23:59 23:59 Intake Total 7500 4803 2875 1021.6 Output Total 200 4700 4600 400 Balance 7300 103 -1725 621.6 Weight 145 lb 4 oz 145 lb 144 lb 8 oz 137 lb Last Vital Signs Temp Pulse Resp BP Pulse Ox 98.7 F 80 20 95/67 98 04/15/18 06:00 04/15/18 08:00 04/15/18 08:00 04/15/18 08:00 04/15/18 08:17 Active Medications Acetaminophen (Ofirmev Injection -) 1,000 mg IVPB Q6H PRN PRN Reason: FEVER Last Admin: 04/13/18 10:03 Dose: 1,000 mg Albuterol Sulfate (Ventolin 0.083% Nebulizer Soln -) 1 amp NEB Q4H PRN PRN Reason: SHORT OF BREATH/WHEEZING Aspirin (Asa -) 81 mg PO DAILY [facility] Last Admin: 04/14/18 09:55 Dose: 81 mg Atorvastatin Calcium (Lipitor -) 40 mg GT HS [facility] Last Admin: 04/14/18 21:40 Dose: 40 mg Chlorhexidine Gluconate (Hibiclens For Decolonization -) 1 applic TP HS [facility] Last Admin: 04/14/18 21:39 Dose: 1 applic Heparin Sodium (Porcine) (Heparin -) 5,000 unit SQ BID [facility] Last Admin: 04/14/18 21:38 Dose: 5,000 unit Piperacillin Sod/Tazobactam (Sod 4.5 gm/ Dextrose) 100 mls @ 200 mls/hr IVPB Q6H-IV [facility]; Protocol Last Admin: 04/15/18 02:54 Dose: 200 mls/hr Norepinephrine Bitartrate 8, (000 mcg/ Dextrose) 500 mls @ 18.75 mls/hr IV TITR [facility]; Protocol Last Titration: 04/15/18 07:30 Dose: 8 mcg/min, 30 mls/hr Sodium Chloride (Normal Saline -) 1,000 mls @ 75 mls/hr IV ASDIR [facility] Last Admin: 04/14/18 23:06 Dose: 75 mls/hr Lacosamide (Vimpat Liquid -) 10 mg GT BID [facility] Last Admin: 04/14/18 21:42 Dose: 10 mg Levetiracetam (Keppra Oral Solution -) 500 mg GT BID [facility] Last Admin: 04/14/18 21:39 Dose: 500 mg Multi-Ingredient Ointment (Zinc Oxide) 1 applic TP TID [facility] Last Admin: 04/15/18 06:02 Dose: 1 applic Mupirocin (Bactroban Ointment (For Decolonization) -) 1 applic NS BID [facility] Stop: 04/17/18 21:59 Last Admin: 04/14/18 21:39 Dose: 1 applic Valproate Sodium (Depakene -) 1,250 mg PO BID [facility] Last Admin: 04/14/18 21:38 Dose: 1,250 mg Vancomycin HCl (Vancomycin Oral Solution) 250 mg PEG Q6HPO [facility] Last Admin: 04/15/18 06:02 Dose: 250 mg Gen: awake and alert, NAD, confused Heart: tachycardic, regular Lung: decreased breath sounds at the bases Abd: softly distended, nontender Ext: no edema Laboratory Results - last 24 hr 04/12/18 04/15/18 04/15/18 10:18 08:05 08:05 WBC 6.7 RBC 3.18 L Hgb 9.6 L Hct 28.3 L MCV 89.0 MCH 30.2 MCHC 33.9 RDW 18.2 H Plt Count 91 L MPV 11.1 Absolute Neuts (auto) 4.5 Neutrophils % 67.8 Lymphocytes % 22.7 Monocytes % 6.4 Eosinophils % 3.0 Basophils % 0.1 Nucleated RBC % 0 Sodium 150 H Potassium 3.0 L Chloride 116 H Carbon Dioxide 28 Anion Gap 6 L BUN 5 L Creatinine 0.6 Creat Clearance w eGFR > 60 Random Glucose 129 H Calcium 7.9 L Phosphorus 2.8 Magnesium 1.8 Levetiracetam 26.9 ASSESSMENT AND PLAN: Septic Shock Suspected Recurrent C Diff Colitis Severe Hypernatremia Acute Kidney Injury Lactic Acidosis Thrombocytopenia h/o CVA Seizure Disorder Dementia - NE for hemodynamic support: wean as tolerated - ABX per ID - IVF - monitor urine output, creatinine - continue antiepileptics - aspiration precautions - O2 to keep SpO2 >90% - continue ICU monitoring Dr Early Critical care time spent in reviewing chart, evaluating patient and formulating plan 35 min
[2018-04-15] MEDS: ASPIRIN 81 MG CHEWABLE TABLETS PO SCH (09:40)
[2018-04-15] MEDS: MUPIROCIN 2% TOPICAL OINTMENT FOR DECOLONIZATION NS SCH ×2 (09:41→21:51)
[2018-04-15] MEDS: VALPROATE SODIUM 250 MG/5 ML UNIT DOSE CUP PO SCH ×2 (09:41→21:51)
[2018-04-15] MEDS: HEPARIN NA (PORCINE) 5,000 UNITS/ML 1ML VIAL SQ SCH ×2 (09:43→21:51)
[2018-04-15] MEDS: levETIRAcetam 500 MG/5 ML ORAL SOLUTION (UNIT-DOSE CUPS) GT SCH ×2 (09:44→21:53)
[2018-04-15] MEDS: SODIUM CHLORIDE 1,000 ML IV SCH ×2 (09:45→10:09)
[2018-04-15] MEDS: Lacosamide 50 MG/5 ML ORAL SOLUTION UNIT CUPS GT SCH ×2 (09:47→21:53)
--- NOTE | 2018-04-15 10:27 | PN ---
Progress Note (short form) - Note Progress Note: Renal follow up for NICOLÁS/Severe Hypernatremia Pt seen and examined in the ICU awake and alert talking reports mild abd pain no sob, cp, N/V/D on IVF, vasopressers making urine Vital Signs Temperature 98.7 F 04/15/18 06:00 Pulse Rate 80 04/15/18 08:00 Respiratory Rate 20 04/15/18 08:00 Blood Pressure 95/67 04/15/18 08:00 O2 Sat by Pulse Oximetry (%) 98 04/15/18 08:17 Intake & Output 04/12/18 04/13/18 04/14/18 04/15/18 23:59 23:59 23:59 23:59 Intake Total 7500 4803 2875 1021.6 Output Total 200 4700 4600 400 Balance 7300 103 -1725 621.6 Weight 65.884 kg 65.771 kg 65.544 kg 62.142 kg NAD CTA No LE edema bingham in place CBC, BMP 04/15/18 08:05 04/15/18 08:05 Current Medications Acetaminophen (Ofirmev Injection -) 1,000 mg IVPB Q6H PRN PRN Reason: FEVER Last Admin: 04/13/18 10:03 Dose: 1,000 mg Albuterol Sulfate (Ventolin 0.083% Nebulizer Soln -) 1 amp NEB Q4H PRN PRN Reason: SHORT OF BREATH/WHEEZING Aspirin (Asa -) 81 mg PO DAILY [facility] Last Admin: 04/15/18 09:40 Dose: 81 mg Atorvastatin Calcium (Lipitor -) 40 mg GT HS [facility] Last Admin: 04/14/18 21:40 Dose: 40 mg Chlorhexidine Gluconate (Hibiclens For Decolonization -) 1 applic TP HS [facility] Last Admin: 04/14/18 21:39 Dose: 1 applic Heparin Sodium (Porcine) (Heparin -) 5,000 unit SQ BID [facility] Last Admin: 04/15/18 09:43 Dose: 5,000 unit Piperacillin Sod/Tazobactam (Sod 4.5 gm/ Dextrose) 100 mls @ 200 mls/hr IVPB Q6H-IV [facility]; Protocol Last Admin: 04/15/18 09:38 Dose: 200 mls/hr Norepinephrine Bitartrate 8, (000 mcg/ Dextrose) 500 mls @ 18.75 mls/hr IV TITR [facility]; Protocol Last Titration: 04/15/18 07:30 Dose: 8 mcg/min, 30 mls/hr Sodium Chloride (Normal Saline -) 1,000 mls @ 75 mls/hr IV ASDIR [facility] Last Admin: 04/15/18 10:09 Dose: 75 mls/hr Lacosamide (Vimpat Liquid -) 10 mg GT BID [facility] Last Admin: 04/15/18 09:47 Dose: 10 mg Levetiracetam (Keppra Oral Solution -) 500 mg GT BID [facility] Last Admin: 04/15/18 09:44 Dose: 500 mg Multi-Ingredient Ointment (Zinc Oxide) 1 applic TP TID [facility] Last Admin: 04/15/18 06:02 Dose: 1 applic Mupirocin (Bactroban Ointment (For Decolonization) -) 1 applic NS BID [facility] Stop: 04/17/18 21:59 Last Admin: 04/15/18 09:41 Dose: 1 applic Potassium Chloride (Potassium Chloride 20 Meq Premix Ivpb -) 20 meq IVPB ONCE ONE Stop: 04/15/18 10:38 Valproate Sodium (Depakene -) 1,250 mg PO BID [facility] Last Admin: 04/15/18 09:41 Dose: 1,250 mg Vancomycin HCl (Vancomycin Oral Solution) 250 mg PEG Q6HPO [facility] Last Admin: 04/15/18 06:02 Dose: 250 mg 67 year old woman with Hx of CVA, Hypertension, Anemia, Dysphagia, recent VRE/ Cdiff who presented with AMS/Fever and admitted for sepsis syndrome with NICOLÁS and hypernatremia. #Sepsis Syndrome #NICOLÁS in setting of sepsis/volume depletion #Hypernatremia (water deficit now 5.4 L ) #Anemia #Thrombocytopenia #Recent VRE/Cdiff #lactic acidosis Renal function improved and stable, pt non-oliguirc serum na improved with isotonic saline continue fluids as needed to maintain MAP > 65 titrate vasopresser supplement K increase free water via G-tube Abx as per ID ICU monitoring Thank you Constantino Clemons DO
--- NOTE | 2018-04-15 10:40 | PN ---
Physical Exam: SUBJECTIVE: Patient seen and examined. Able to titrate Levophed down to 1 mcg overnight. Tried to wean off, and Pt.'s became hypotensive. Pt. is currently on 8mcg Levophed. Pt. endorses feeling better and is better able to communicate. Pt. endorses mild calf pain. Pt. denies SOB, chest pain, or abdominal pain. OBJECTIVE: Vital Signs Period Temp Pulse Resp BP Sys/Levine Pulse Ox Last 24 Hr 98.1 F-99 F 58-82 15-27 90-117/57-77 98-100 GENERAL: The patient is awake,A&O x1 to name only, in no acute distress. ENT: Ears normal, nares patent, oropharynx clear without exudates, dry mucous membranes. LUNGS: Breath sounds equal, clear to auscultation bilaterally, non-productive cough, mild crackles in RLL of axilla, no accessory muscle use. HEART: Regular rate and rhythm, S1, S2 without murmur ABDOMEN: Soft, nontender, nondistended, sluggish bowel sounds, no guarding, no rebound PEG tube in place EXTREMITIES: LLE: warm, 2+ dorsal pedal pulse, RLE: absent dorsal pedal and posterior tibial pulse, cool to touch,mild calf tenderness, unable to move RLE, endorses numbness, endorses decreased sensation to touch. no edema in any extremity. RUE 2/5 muscle stength. LUE 3/5 muscle strength. LLE has 3/5 muscle strength. Pt. has an intention tremor when trying to move. Laboratory Results - last 24 hr 04/12/18 04/15/18 04/15/18 10:18 08:05 08:05 WBC 6.7 RBC 3.18 L Hgb 9.6 L Hct 28.3 L MCV 89.0 MCH 30.2 MCHC 33.9 RDW 18.2 H Plt Count 91 L MPV 11.1 Absolute Neuts (auto) 4.5 Neutrophils % 67.8 Lymphocytes % 22.7 Monocytes % 6.4 Eosinophils % 3.0 Basophils % 0.1 Nucleated RBC % 0 Sodium 150 H Potassium 3.0 L Chloride 116 H Carbon Dioxide 28 Anion Gap 6 L BUN 5 L Creatinine 0.6 Creat Clearance w eGFR > 60 Random Glucose 129 H Calcium 7.9 L Phosphorus 2.8 Magnesium 1.8 Levetiracetam 26.9 Active Medications Current Medications Acetaminophen (Ofirmev Injection -) 1,000 mg IVPB Q6H PRN PRN Reason: FEVER Last Admin: 04/13/18 10:03 Dose: 1,000 mg Albuterol Sulfate (Ventolin 0.083% Nebulizer Soln -) 1 amp NEB Q4H PRN PRN Reason: SHORT OF BREATH/WHEEZING Aspirin (Asa -) 81 mg PO DAILY [facility] Last Admin: 04/15/18 09:40 Dose: 81 mg Atorvastatin Calcium (Lipitor -) 40 mg GT HS [facility] Last Admin: 04/14/18 21:40 Dose: 40 mg Chlorhexidine Gluconate (Hibiclens For Decolonization -) 1 applic TP HS [facility] Last Admin: 04/14/18 21:39 Dose: 1 applic Heparin Sodium (Porcine) (Heparin -) 5,000 unit SQ BID [facility] Last Admin: 04/15/18 09:43 Dose: 5,000 unit Piperacillin Sod/Tazobactam (Sod 4.5 gm/ Dextrose) 100 mls @ 200 mls/hr IVPB Q6H-IV [facility]; Protocol Last Admin: 04/15/18 09:38 Dose: 200 mls/hr Norepinephrine Bitartrate 8, (000 mcg/ Dextrose) 500 mls @ 18.75 mls/hr IV TITR [facility]; Protocol Last Titration: 04/15/18 07:30 Dose: 8 mcg/min, 30 mls/hr Sodium Chloride (Normal Saline -) 1,000 mls @ 75 mls/hr IV ASDIR [facility] Last Admin: 04/15/18 10:09 Dose: 75 mls/hr Lacosamide (Vimpat Liquid -) 10 mg GT BID [facility] Last Admin: 04/15/18 09:47 Dose: 10 mg Levetiracetam (Keppra Oral Solution -) 500 mg GT BID [facility] Last Admin: 04/15/18 09:44 Dose: 500 mg Multi-Ingredient Ointment (Zinc Oxide) 1 applic TP TID [facility] Last Admin: 04/15/18 06:02 Dose: 1 applic Mupirocin (Bactroban Ointment (For Decolonization) -) 1 applic NS BID [facility] Stop: 04/17/18 21:59 Last Admin: 04/15/18 09:41 Dose: 1 applic Valproate Sodium (Depakene -) 1,250 mg PO BID [facility] Last Admin: 04/15/18 09:41 Dose: 1,250 mg Vancomycin HCl (Vancomycin Oral Solution) 250 mg PEG Q6HPO [facility] Last Admin: 04/15/18 06:02 Dose: 250 mg ASSESSMENT/PLAN: A 67yo female w/ PMHx. of HTN, hyperlipidemia, seizure disorder, CVA, dementia, recent hospitalizations for recurrent C diff colitis who [facility] for [facility] status and fevers. Found to be severely hypernatremic to 180 with acute renal failure. #Cardiovascular -HTN hold anti-HTN meds keep MAP above 65 decreased Normal Saline to 75ml/hr decreased Levophed to 8mcg/hr, will try to wean off today c/w monitoring BP can give Hydrocortisone 50mg and Fludrocortisone 50mg is BP continues to drop. Can give midrodine if BP continues to drop as well. -HLD c/w Lipitor #Gastroenterology -Recent hospitalization for C.diff c/w Vancomycin and Zosyn (Day 4) f/u ova and parasite Cx. D/C-ed Metronidazole D/c-ed Daptomycin contact precautions completed Diflucan dose for broad spectrum coverage. #Renal -Acute Renal Failure resolved Dr. Clemons (Nephrology) consult appreciated -Hypernatremia resolving c/w NS @ 75ml/hr Goal of decreasing sodium by 0.5 units per hour #Neurology -Seizure disorder c/w Keppra c/w Valproic Acid c/w Lacosimide #DVT Ppx. -Hold Lovenox as Pt. is in acute renal failure #F/E/N -Titrated NS to 75ml/hr -Na+ is now 150, monitoring to decrease Na+ by 0.5 units/hr -f/u BMP in AM -Free water deficit of 2.0L -RD consult appreciated. Started Osmolite 1.2 @ 20cc/hr, increase slowly to 1300ml volume. Total free water 1066ml w/ 20ml/hr pump flush, would consider restarting tube feeds in the AM pending clinical status and Na+ level. #Dispo: ICU We will continue to follow the patient. Thank you for this consultative opportunity. Visit type - Emergency Visit Emergency Visit: Yes ED Registration Date: 04/12/18 Care time: The patient presented to the Emergency Department on the above date and was hospitalized for further evaluation of their emergent condition. - New Patient This patient is new to me today: No - Critical Care Critical Care patient: No - Discharge Referral Referred to [facility] No
--- NOTE | 2018-04-15 14:19 | PN ---
Progress Note, Physician History of Present Illness: Pt is arousable, afebrile. Remains on Norepinephrine drip. 1 loose BM so far today. WBC count now normal. No distress noted. - Current Medication List Current Medications: Active Medications Acetaminophen (Ofirmev Injection -) 1,000 mg IVPB Q6H PRN PRN Reason: FEVER Last Admin: 04/13/18 10:03 Dose: 1,000 mg Albuterol Sulfate (Ventolin 0.083% Nebulizer Soln -) 1 amp NEB Q4H PRN PRN Reason: SHORT OF BREATH/WHEEZING Aspirin (Asa -) 81 mg PO DAILY [facility] Last Admin: 04/15/18 09:40 Dose: 81 mg Atorvastatin Calcium (Lipitor -) 40 mg GT HS [facility] Last Admin: 04/14/18 21:40 Dose: 40 mg Chlorhexidine Gluconate (Hibiclens For Decolonization -) 1 applic TP HS [facility] Last Admin: 04/14/18 21:39 Dose: 1 applic Heparin Sodium (Porcine) (Heparin -) 5,000 unit SQ BID [facility] Last Admin: 04/15/18 09:43 Dose: 5,000 unit Piperacillin Sod/Tazobactam (Sod 4.5 gm/ Dextrose) 100 mls @ 200 mls/hr IVPB Q6H-IV [facility]; Protocol Last Admin: 04/15/18 09:38 Dose: 200 mls/hr Norepinephrine Bitartrate 8, (000 mcg/ Dextrose) 500 mls @ 18.75 mls/hr IV TITR [facility]; Protocol Last Titration: 04/15/18 07:30 Dose: 8 mcg/min, 30 mls/hr Sodium Chloride (Normal Saline -) 1,000 mls @ 75 mls/hr IV ASDIR [facility] Last Admin: 04/15/18 10:09 Dose: 75 mls/hr Lacosamide (Vimpat Liquid -) 10 mg GT BID [facility] Last Admin: 04/15/18 09:47 Dose: 10 mg Levetiracetam (Keppra Oral Solution -) 500 mg GT BID [facility] Last Admin: 04/15/18 09:44 Dose: 500 mg Multi-Ingredient Ointment (Zinc Oxide) 1 applic TP TID [facility] Last Admin: 04/15/18 06:02 Dose: 1 applic Mupirocin (Bactroban Ointment (For Decolonization) -) 1 applic NS BID [facility] Stop: 04/17/18 21:59 Last Admin: 04/15/18 09:41 Dose: 1 applic Valproate Sodium (Depakene -) 1,250 mg PO BID [facility] Last Admin: 04/15/18 09:41 Dose: 1,250 mg Vancomycin HCl (Vancomycin Oral Solution) 250 mg PEG Q6HPO [facility] Last Admin: 04/15/18 13:10 Dose: 250 mg - Objective Vital Signs: Vital Signs Temperature 98.5 F 04/15/18 08:00 Pulse Rate 85 04/15/18 12:00 Respiratory Rate 27 H 04/15/18 12:00 Blood Pressure 90/56 04/15/18 12:00 O2 Sat by Pulse Oximetry (%) 98 04/15/18 08:17 Constitutional: Yes: No Distress, Calm Cardiovascular: Yes: Regular Rate and Rhythm Respiratory: Yes: Regular Gastrointestinal: Yes: Normal Bowel Sounds, Soft Genitourinary: Yes: Handy Present Extremities: Yes: WNL Integumentary: Yes: WNL Neurological: Yes: Alert Labs: CBC, BMP 04/15/18 08:05 04/15/18 08:05 INR, PTT INR 1.28 (0.83-1.09) H 04/12/18 07:45 Microbiology 04/15/18 01:00 Stool Clostridium difficile Antigen (ALEX) - Final 04/15/18 01:00 Stool Clostridium difficile Toxin Assay - Final 04/12/18 08:00 Blood - Peripheral Venous Blood Culture - Preliminary NO GROWTH OBTAINED AFTER 72 HOURS, INCUBATION TO CONTINUE FOR 2 DAYS. 04/12/18 08:00 Blood - Peripheral Venous Blood Culture - Preliminary NO GROWTH OBTAINED AFTER 72 HOURS, INCUBATION TO CONTINUE FOR 2 DAYS. 04/12/18 07:45 Urine - Urine - Catheterized Urine Culture - Final NO GROWTH OBTAINED Problem List - Problems (1) Hypernatremia Code(s): E87.0 - HYPEROSMOLALITY AND HYPERNATREMIA (2) Sepsis Code(s): A41.9 - SEPSIS, UNSPECIFIED ORGANISM Qualifiers: Sepsis type: sepsis due to unspecified organism Qualified Code(s): A41.9 - Sepsis, unspecified organism (3) NICOLÁS (acute kidney injury) Code(s): N17.9 - ACUTE KIDNEY FAILURE, UNSPECIFIED (4) Anemia Code(s): D64.9 - ANEMIA, UNSPECIFIED Qualifiers: Anemia type: unspecified type Qualified Code(s): D64.9 - Anemia, unspecified (5) CVA (cerebral vascular accident) Code(s): I63.9 - CEREBRAL INFARCTION, UNSPECIFIED Qualifiers: CVA mechanism: unspecified Qualified Code(s): I63.9 - Cerebral infarction, unspecified (6) Clostridium difficile diarrhea Code(s): A04.72 - ENTEROCOLITIS D/T CLOSTRIDIUM DIFFICILE, NOT SPCF RECUR (7) Failure to thrive in adult Code(s): R62.7 - ADULT FAILURE TO THRIVE (8) HLD (hyperlipidemia) Code(s): E78.5 - HYPERLIPIDEMIA, UNSPECIFIED (9) HTN (hypertension) Code(s): I10 - ESSENTIAL (PRIMARY) HYPERTENSION (10) Lactic acidosis Code(s): E87.2 - ACIDOSIS (11) Seizure Code(s): R56.9 - UNSPECIFIED CONVULSIONS Assessment/Plan 67 y.o. female with PMH of HTN, HLD, CVA, dysphagia/peg, seizure d.o., treated recently for sepsis due to VRE/Clostridium bacteremia and C. difficile colitis presenting with AMS, hypotension, hypernatremia, fever, leukocytosis, elevated lactic acid. Hospital records/imaging/labs reviewed Severe Sepsis Shock AMS Fever Leukocytosis NICOLÁS Lactic acidosis History of VRE/Clostridium bacteremia C. difficile Colitis Seizure d.o. CVA -- continue Zosyn and Vancomycin via GT for now -- leukocytosis/fever resolved -- remains on Norepinephrine drip -- lactate normal, renal function improving, hypernatremia improving -- continue monitor -- rest of care per ICU cc: 40 min
[2018-04-15] MEDS: NOREPINEPHRINE BITARTRATE 8,000 MCG in DEXTROSE 5%-WATER - 492 ML IV SCH ×3 (15:35→21:58)
[2018-04-15] MEDS ORDERED: MAGNESIUM SULF 50% (8.12 MEQ/2 ML-1 GM VIAL) IVPB ONE (20:09)
[2018-04-15] MEDS ORDERED: SODIUM CHLORIDE 0.9% 500 ML INFUS.BAG IV ONE (20:14)
[2018-04-15] MEDS ORDERED: MAGNESIUM SULFATE IN WATER 2 GM/50 ML IVPB IVPB ONE (20:15)
[2018-04-15] MEDS ORDERED: SODIUM CHLORIDE 200 ML IV ONE (20:30)
[2018-04-15] MEDS: ATORVASTATIN CA 40 MG TABLET (FP) GT SCH (21:51)
[2018-04-15] MEDS: CHLORHEXIDINE GLUCONATE 4% CLEANSER FOR DECOLONIZATION TP SCH (21:52)
[2018-04-16] MEDS: SODIUM CHLORIDE 1,000 ML IV SCH ×2 (00:13→09:23)
[2018-04-16] MEDS: VANCOMYCIN 250 MG/5 ML ORAL SOLUTION PEG SCH ×4 (00:15→17:25)
[2018-04-16] MEDS: NOREPINEPHRINE BITARTRATE 8,000 MCG in DEXTROSE 5%-WATER - 492 ML IV SCH ×2 (00:21→09:29)
[2018-04-16] MEDS ORDERED: DEXTROSE 5%-WATER 100 ML IVPB ONE ×3 (02:24→14:57)
[2018-04-16] MEDS ORDERED: PIPERACILLIN/TAZOBACTAM 4.5 GM VIAL IVPB ONE ×3 (02:24→14:57)
[2018-04-16] MEDS: PIPERACILLIN/TAZOB 4.5 GM 4.5 GM in DEXTROSE 5%-WATER 100 ML IVPB SCH ×3 (02:32→15:07)
[2018-04-16 05:45] LABS: BASO % 0.2 % (0-2.0); EOS % 2.8 % (0-4.5); HEMATOCRIT 25.9 % (32.4-45.2); HEMOGLOBIN 8.6 GM/dL (10.7-15.3); LYMPH % 40.7 % (8-40); MCHC 33.3 g/dl (32.0-36.0); MEAN CELL VOLUME 90.2 fl (80-96); MEAN PLT VOLUME 10.6 fl (7.5-11.1); MONO % 5.8 % (3.8-10.2); NEUT % 50.5 % (42.8-82.8); PLATELET COUNT 96 K/MM3 (134-434); RBC 2.87 M/mm3 (3.60-5.2); RDW 18.6 % (11.6-15.6); WHITE BLOOD COUNT 5.5 K/mm3 (4.0-10.0)
[2018-04-16] MEDS ORDERED: PT OWN MED DRAWER 7, Y5N ONE ×4 (05:49→12:04)
[2018-04-16] MEDS: ZINC OXIDE 20% TOPICAL OINTMENT 30 GM TUBE TP SCH ×3 (05:53→22:01)
[2018-04-16 06:18] LABS: ANION GAP 5 MMOL/L (8-16); BLOOD UREA NITROGEN 3 mg/dL (7-18); CALCIUM 7.5 mg/dL (8.5-10.1); CHLORIDE 118 mmol/L (98-107); CO2 28 mmol/L (21-32); CREATININE 0.5 mg/dL (0.55-1.3); GLUCOSE,RANDOM 136 mg/dL (74-106); MAGNESIUM 2.2 mg/dL (1.8-2.4); PHOSPHOROUS 2.5 mg/dL (2.5-4.9); POTASSIUM 3.3 mmol/L (3.5-5.1); SODIUM 151 mmol/L (136-145)
[2018-04-16] MEDS ORDERED: POTASSIUM CHLORIDE ORAL LIQUID 20 MEQ/15 ML GT ONE (07:19)
[2018-04-16] MEDS ORDERED: POTASSIUM CHLORIDE ORAL LIQUID 20 MEQ/15 ML PO ONE (07:19)
[2018-04-16] MEDS ORDERED: SODIUM CHLORIDE 0.9% 1000 ML INFUS.BAG IV SCH (08:15)
--- NOTE | 2018-04-16 08:29 | PN ---
Physical Exam: SUBJECTIVE: Patient seen and examined at bedside. Overnight, afebrile with one loose stool. Continued on levo 8 mcg/min, IV NS 75 cc/hr. This AM, states that she "feels well," however has diarrhea "off and on." Denies VILCHIS, fever, chills, abdominal pain, or changes in urinary function. OBJECTIVE: Vital Signs Period Temp Pulse Resp BP Sys/Levine Pulse Ox Last 24 Hr 97.9 F-98.8 F 78-98 14-27 78-119/53-92 97-100 GENERAL: The patient is resting comfortably. AAOx2 (self, place), in no acute distress. HEAD: Normal with no signs of trauma. EYES: PERRL, extraocular movements intact, sclera anicteric, conjunctiva clear. ENT: Ears normal, nares patent, oropharynx clear without exudates NECK: supple LUNGS: Breath sounds equal, clear to auscultation bilaterally, no wheezes, no crackles, no accessory muscle use. HEART: Regular rate and rhythm, S1, S2 without murmur, rub or gallop. ABDOMEN: Soft, nontender, nondistended, normoactive bowel sounds, no guarding. + GT intact, no erythema or drainage around site EXTREMITIES: 2+ pt pulses, warm, well-perfused, no edema. NEUROLOGICAL: Cranial nerves II through XII grossly intact. Normal speech PSYCH: Normal mood, normal affect. SKIN: Warm, dry, normal turgor Laboratory Results - last 24 hr 04/15/18 04/15/18 04/16/18 08:05 08:05 05:00 WBC 6.7 5.5 RBC 3.18 L 2.87 L Hgb 9.6 L 8.6 L Hct 28.3 L 25.9 L MCV 89.0 90.2 MCH 30.2 30.0 MCHC 33.9 33.3 RDW 18.2 H 18.6 H Plt Count 91 L 96 L MPV 11.1 10.6 Absolute Neuts (auto) 4.5 2.8 Neutrophils % 67.8 50.5 D Lymphocytes % 22.7 40.7 H D Monocytes % 6.4 5.8 Eosinophils % 3.0 2.8 Basophils % 0.1 0.2 Nucleated RBC % 0 0 Sodium 150 H Potassium 3.0 L Chloride 116 H Carbon Dioxide 28 Anion Gap 6 L BUN 5 L Creatinine 0.6 Creat Clearance w eGFR > 60 Random Glucose 129 H Calcium 7.9 L Phosphorus 2.8 Magnesium 1.8 04/16/18 05:00 Nucleated RBC % Sodium 151 H Potassium 3.3 L Chloride 118 H Carbon Dioxide 28 Anion Gap 5 L BUN 3 L Creatinine 0.5 L Creat Clearance w eGFR > 60 Random Glucose 136 H Calcium 7.5 L Phosphorus 2.5 Magnesium 2.2 Active Medications Generic Name Dose Route Start Last Admin Trade Name Freq PRN Reason Stop Dose Admin Acetaminophen 1,000 mg 04/12/18 17:12 04/13/18 10:03 Ofirmev Injection - IVPB 1,000 mg Q6H PRN Administration FEVER Albuterol Sulfate 1 amp 04/12/18 13:42 Ventolin 0.083% Nebulizer Soln - NEB Q4H PRN SHORT OF BREATH/WHEEZING Aspirin 81 mg 04/13/18 10:00 04/15/18 09:40 Asa - PO 81 mg DAILY [facility] Administration Atorvastatin Calcium 40 mg 04/12/18 22:00 04/15/18 21:51 Lipitor - GT 40 mg HS [facility] Administration Chlorhexidine Gluconate 1 applic 04/12/18 22:00 04/15/18 21:52 Hibiclens For Decolonization - TP 1 applic HS [facility] Administration Heparin Sodium (Porcine) 5,000 unit 04/12/18 22:00 04/15/18 21:51 Heparin - SQ 5,000 unit BID [facility] Administration Piperacillin Sod/Tazobactam 100 mls @ 200 mls/hr 04/12/18 15:00 04/16/18 02: 32 Sod 4.5 gm/ Dextrose IVPB 200 mls/hr Q6H-IV [facility] Administration Protocol Norepinephrine Bitartrate 8, 500 mls @ 18.75 mls/hr 04/12/18 23:45 04/16/18 03:13 000 mcg/ Dextrose IV 8 mcg/min TITR [facility] 30 mls/hr Protocol 5 MCG/MIN Sodium Chloride 1,000 mls @ 75 mls/hr 04/14/18 06:41 04/16/18 00:13 Normal Saline - IV 75 mls/hr ASDIR [facility] Administration Lacosamide 10 mg 04/12/18 22:30 04/15/18 21:53 Vimpat Liquid - GT 10 mg BID [facility] Administration Levetiracetam 500 mg 04/12/18 22:00 04/15/18 21:53 Keppra Oral Solution - GT 500 mg BID [facility] Administration Multi-Ingredient Ointment 1 applic 04/12/18 22:00 04/16/18 05:53 Zinc Oxide TP 1 applic TID [facility] Administration Mupirocin 1 applic 04/12/18 22:00 04/15/18 21:51 Bactroban Ointment (For Decolonization) - NS 04/17/18 21:59 1 applic BID [facility] Administration Sodium Chloride 200 ml 04/16/18 08:15 Normal Saline - IV Q6H [facility] Valproate Sodium 1,250 mg 04/12/18 22:00 04/15/18 21:51 Depakene - PO 1,250 mg BID [facility] Administration Vancomycin HCl 250 mg 04/12/18 12:00 04/16/18 05:52 Vancomycin Oral Solution PEG 250 mg Q6HPO [facility] Administration ASSESSMENT/PLAN: 67 y/o F w/ PMH HTN, HLD, seizure disorder, CVA, dementia, recent hospitalizations for recurrent C. diff colitis, who was admitted for fever and AMS. Pt was found to be severely hypernatremic to 180 with ARF. #ID Septic shock Possible recurrent c.diff infection -Though c.diff (-) possible recurrence, d/t recent past hx -c/w vanco, zosyn (day 5) -F/u ova and parasite Cx. -Currently on levo 8mcg/min -Wean levo as tolerated, will give free water fluid boluses (200 q6h) -will reassess potential use of midodrine to aid with BP support -Maintain MAP >65 #Cardio HTN -continue to hold meds as BP labile HLD -c/w Lipitor #Renal Hypernatremia-resolving -c/w NS @ 75ml/hr, continue to follow BMP - 200 cc free water through GT q6h PRN -goal decrease sodium by 0.5 units/hour #Neurology Seizure disorder -without recent hx sz activity -c/w Keppra -c/w Valproic Acid -c/w Lacosimide #F/E/N -NS 75ml/hr -continue to follow lytes, especially Na -tube feed osmolite #DVT -Hold Lovenox d/t acute renal failure #Dispo continue ICU management, as still requiring pressors Visit type - Emergency Visit Emergency Visit: No - New Patient This patient is new to me today: No - Critical Care Critical Care patient: No Total Critical Care Time (in minutes): 40 Critical Care Statement: The care of this patient involved high complexity decision making to prevent further life threatening deterioration of the patient 's condition and/or to evaluate & treat vital organ system(s) failure or risk of failure.
[2018-04-16] MEDS: ASPIRIN 81 MG CHEWABLE TABLETS PO SCH (09:14)
[2018-04-16] MEDS: Lacosamide 50 MG/5 ML ORAL SOLUTION UNIT CUPS GT SCH (09:18)
[2018-04-16] MEDS: HEPARIN NA (PORCINE) 5,000 UNITS/ML 1ML VIAL SQ SCH ×2 (09:20→22:01)
[2018-04-16] MEDS: MUPIROCIN 2% TOPICAL OINTMENT FOR DECOLONIZATION NS SCH ×2 (09:21→22:00)
--- NOTE | 2018-04-16 09:34 | PN ---
Progress Note (short form) - Note Progress Note: Renal follow up for NICOLÁS/Severe Hypernatremia Pt seen and examined in the ICU sleeping no overnight events making urine remains on levophed 8mcg Vital Signs Temperature 97.9 F 04/16/18 06:00 Pulse Rate 78 04/16/18 08:00 Respiratory Rate 26 H 04/16/18 08:00 Blood Pressure 97/66 04/16/18 08:00 O2 Sat by Pulse Oximetry (%) 99 04/16/18 07:56 Intake & Output 04/13/18 04/14/18 04/15/18 04/16/18 23:59 23:59 23:59 23:59 Intake Total 4803 2875 4300.1 1405 Output Total 4700 4600 1200 900 Balance 103 -1725 3100.1 505 Weight 65.771 kg 65.544 kg 62.142 kg 65.317 kg NAD CTA No LE edema bingham in place CBC, BMP 04/16/18 05:00 04/16/18 05:00 Current Medications Acetaminophen (Ofirmev Injection -) 1,000 mg IVPB Q6H PRN PRN Reason: FEVER Last Admin: 04/13/18 10:03 Dose: 1,000 mg Albuterol Sulfate (Ventolin 0.083% Nebulizer Soln -) 1 amp NEB Q4H PRN PRN Reason: SHORT OF BREATH/WHEEZING Aspirin (Asa -) 81 mg PO DAILY [facility] Last Admin: 04/16/18 09:14 Dose: 81 mg Atorvastatin Calcium (Lipitor -) 40 mg GT HS [facility] Last Admin: 04/15/18 21:51 Dose: 40 mg Chlorhexidine Gluconate (Hibiclens For Decolonization -) 1 applic TP HS [facility] Last Admin: 04/15/18 21:52 Dose: 1 applic Heparin Sodium (Porcine) (Heparin -) 5,000 unit SQ BID [facility] Last Admin: 04/16/18 09:20 Dose: 5,000 unit Piperacillin Sod/Tazobactam (Sod 4.5 gm/ Dextrose) 100 mls @ 200 mls/hr IVPB Q6H-IV [facility]; Protocol Last Admin: 04/16/18 09:20 Dose: 200 mls/hr Norepinephrine Bitartrate 8, (000 mcg/ Dextrose) 500 mls @ 18.75 mls/hr IV TITR [facility]; Protocol Last Admin: 04/16/18 09:29 Dose: 8 mcg/min, 30 mls/hr Sodium Chloride (Normal Saline -) 1,000 mls @ 75 mls/hr IV ASDIR [facility] Last Admin: 04/16/18 09:23 Dose: 75 mls/hr Lacosamide (Vimpat Liquid -) 10 mg GT BID [facility] Last Admin: 04/16/18 09:18 Dose: 10 mg Levetiracetam (Keppra Oral Solution -) 500 mg GT BID [facility] Last Admin: 04/15/18 21:53 Dose: 500 mg Multi-Ingredient Ointment (Zinc Oxide) 1 applic TP TID [facility] Last Admin: 04/16/18 05:53 Dose: 1 applic Mupirocin (Bactroban Ointment (For Decolonization) -) 1 applic NS BID [facility] Stop: 04/17/18 21:59 Last Admin: 04/16/18 09:21 Dose: 1 applic Valproate Sodium (Depakene -) 1,250 mg PO BID [facility] Last Admin: 04/15/18 21:51 Dose: 1,250 mg Vancomycin HCl (Vancomycin Oral Solution) 250 mg PEG Q6HPO [facility] Last Admin: 04/16/18 05:52 Dose: 250 mg 67 year old woman with Hx of CVA, Hypertension, Anemia, Dysphagia, recent VRE/ Cdiff who presented with AMS/Fever and admitted for sepsis syndrome with NICOLÁS and hypernatremia. #Sepsis Syndrome #NICOLÁS in setting of sepsis/volume depletion #Hypernatremia (water deficit now 5.4 L ) #Anemia #Thrombocytopenia #Recent VRE/Cdiff #lactic acidosis Renal function improved and stable, pt non-oliguirc Continue IVF and vaospressers to maintain map > 65 IVF as needed to obtain CVP 8-10 Abx as per ID Thank you Constantino Clemons DO
--- NOTE | 2018-04-16 09:54 | PN ---
Teaching Attending Note Name of Resident: Rosey Diaz ATTENDING PHYSICIAN STATEMENT I saw and evaluated the patient. I reviewed the resident's note and discussed the case with the resident. I agree with the resident's findings and plan as documented. SUBJECTIVE: Patient seen and examined in the ICU. Awake and able to answer some questions, but still confused. On 8 mcq NE for hemodynamic support (8 mcq yesterday). Denies CP or SOB. Intake & Output 04/13/18 04/14/18 04/15/18 04/16/18 23:59 23:59 23:59 23:59 Intake Total 4803 2875 4300.1 1405 Output Total 4700 4600 1200 900 Balance 103 -1725 3100.1 505 Weight 145 lb 144 lb 8 oz 137 lb 144 lb Last Vital Signs Temp Pulse Resp BP Pulse Ox 97.9 F 78 26 H 97/66 99 04/16/18 06:00 04/16/18 08:00 04/16/18 08:00 04/16/18 08:00 04/16/18 07:56 Active Medications Acetaminophen (Ofirmev Injection -) 1,000 mg IVPB Q6H PRN PRN Reason: FEVER Last Admin: 04/13/18 10:03 Dose: 1,000 mg Albuterol Sulfate (Ventolin 0.083% Nebulizer Soln -) 1 amp NEB Q4H PRN PRN Reason: SHORT OF BREATH/WHEEZING Aspirin (Asa -) 81 mg PO DAILY [facility] Last Admin: 04/16/18 09:14 Dose: 81 mg Atorvastatin Calcium (Lipitor -) 40 mg GT HS [facility] Last Admin: 04/15/18 21:51 Dose: 40 mg Chlorhexidine Gluconate (Hibiclens For Decolonization -) 1 applic TP HS [facility] Last Admin: 04/15/18 21:52 Dose: 1 applic Heparin Sodium (Porcine) (Heparin -) 5,000 unit SQ BID [facility] Last Admin: 04/16/18 09:20 Dose: 5,000 unit Piperacillin Sod/Tazobactam (Sod 4.5 gm/ Dextrose) 100 mls @ 200 mls/hr IVPB Q6H-IV [facility]; Protocol Last Admin: 04/16/18 09:20 Dose: 200 mls/hr Norepinephrine Bitartrate 8, (000 mcg/ Dextrose) 500 mls @ 18.75 mls/hr IV TITR [facility]; Protocol Last Admin: 04/16/18 09:29 Dose: 8 mcg/min, 30 mls/hr Sodium Chloride (Normal Saline -) 1,000 mls @ 75 mls/hr IV ASDIR [facility] Last Admin: 04/16/18 09:23 Dose: 75 mls/hr Lacosamide (Vimpat Liquid -) 10 mg GT BID [facility] Last Admin: 04/16/18 09:18 Dose: 10 mg Levetiracetam (Keppra Oral Solution -) 500 mg GT BID [facility] Last Admin: 04/15/18 21:53 Dose: 500 mg Multi-Ingredient Ointment (Zinc Oxide) 1 applic TP TID [facility] Last Admin: 04/16/18 05:53 Dose: 1 applic Mupirocin (Bactroban Ointment (For Decolonization) -) 1 applic NS BID [facility] Stop: 04/17/18 21:59 Last Admin: 04/16/18 09:21 Dose: 1 applic Valproate Sodium (Depakene -) 1,250 mg PO BID [facility] Last Admin: 04/15/18 21:51 Dose: 1,250 mg Vancomycin HCl (Vancomycin Oral Solution) 250 mg PEG Q6HPO [facility] Last Admin: 04/16/18 05:52 Dose: 250 mg Gen: awake and alert, NAD, confused Heart: tachycardic, regular Lung: decreased breath sounds at the bases Abd: softly distended, nontender Ext: no edema Laboratory Results - last 24 hr 04/16/18 04/16/18 05:00 05:00 WBC 5.5 RBC 2.87 L Hgb 8.6 L Hct 25.9 L MCV 90.2 MCH 30.0 MCHC 33.3 RDW 18.6 H Plt Count 96 L MPV 10.6 Absolute Neuts (auto) 2.8 Neutrophils % 50.5 D Lymphocytes % 40.7 H D Monocytes % 5.8 Eosinophils % 2.8 Basophils % 0.2 Nucleated RBC % 0 Sodium 151 H Potassium 3.3 L Chloride 118 H Carbon Dioxide 28 Anion Gap 5 L BUN 3 L Creatinine 0.5 L Creat Clearance w eGFR > 60 Random Glucose 136 H Calcium 7.5 L Phosphorus 2.5 Magnesium 2.2 ASSESSMENT AND PLAN: Septic Shock Suspected Recurrent C Diff Colitis Severe Hypernatremia Acute Kidney Injury Lactic Acidosis Thrombocytopenia h/o CVA Seizure Disorder Dementia - Increase IVF resuscitation today - NE for hemodynamic support: wean as tolerated - ABX per ID - monitor urine output, creatinine - continue antiepileptics - aspiration precautions - O2 to keep SpO2 >90% - May need Midodrine (has required intermittently over this year) - continue ICU monitoring Dr Early Critical care time spent in reviewing chart, evaluating patient and formulating plan 35 min
[2018-04-16] MEDS: SODIUM CHLORIDE 250 ML IV SCH ×3 (12:16→23:00)
[2018-04-16] MEDS: VALPROATE SODIUM 250 MG/5 ML UNIT DOSE CUP PO SCH ×2 (12:19→22:01)
[2018-04-16] MEDS: levETIRAcetam 500 MG/5 ML ORAL SOLUTION (UNIT-DOSE CUPS) GT SCH ×2 (12:20→22:01)
--- NOTE | 2018-04-16 12:41 | PN ---
Progress Note (short form) - Note Progress Note: Late Note entry pt seen/ examined yesterday --in icu chart reviewed. better afebrile all f/u noted vitals stable labs - noted o/e awake/ comfortable lungs- clear cvs- s1, s2 rrr abd - soft ext- no edema Assessment/Plan In summary 67 y.o. female with PMH of HTN, HLD, CVA, dysphagia/peg, seizure d.o., treated recently for sepsis due to VRE/Clostridium bacteremia and C. difficile colitis presented with AMS, hypotension, hypernatremia, fever, leukocytosis, elevated lactic acid. Sepsis Leukocytosis NICOLÁS Continue abx wbc trending down f/u cultures taper off pressors will follow' Problem List - Problems (1) Hypernatremia Code(s): E87.0 - HYPEROSMOLALITY AND HYPERNATREMIA (2) Sepsis Code(s): A41.9 - SEPSIS, UNSPECIFIED ORGANISM Qualifiers: Sepsis type: sepsis due to unspecified organism Qualified Code(s): A41.9 - Sepsis, unspecified organism (3) NICOLÁS (acute kidney injury) Code(s): N17.9 - ACUTE KIDNEY FAILURE, UNSPECIFIED (4) Anemia Code(s): D64.9 - ANEMIA, UNSPECIFIED Qualifiers: Anemia type: unspecified type Qualified Code(s): D64.9 - Anemia, unspecified
--- NOTE | 2018-04-16 15:37 | PN ---
Progress Note, Physician History of Present Illness: Pt is alert, states she feels well. At baseline mental status. Still on norepinephrine drip but has been on extending periods in previous hospitalization. No abd pain, remains afebrile. - Current Medication List Current Medications: Active Medications Acetaminophen (Ofirmev Injection -) 1,000 mg IVPB Q6H PRN PRN Reason: FEVER Last Admin: 04/13/18 10:03 Dose: 1,000 mg Albuterol Sulfate (Ventolin 0.083% Nebulizer Soln -) 1 amp NEB Q4H PRN PRN Reason: SHORT OF BREATH/WHEEZING Aspirin (Asa -) 81 mg PO DAILY [facility] Last Admin: 04/16/18 09:14 Dose: 81 mg Atorvastatin Calcium (Lipitor -) 40 mg GT HS [facility] Last Admin: 04/15/18 21:51 Dose: 40 mg Chlorhexidine Gluconate (Hibiclens For Decolonization -) 1 applic TP HS [facility] Last Admin: 04/15/18 21:52 Dose: 1 applic Heparin Sodium (Porcine) (Heparin -) 5,000 unit SQ BID [facility] Last Admin: 04/16/18 09:20 Dose: 5,000 unit Piperacillin Sod/Tazobactam (Sod 4.5 gm/ Dextrose) 100 mls @ 200 mls/hr IVPB Q6H-IV [facility]; Protocol Last Admin: 04/16/18 15:07 Dose: 200 mls/hr Norepinephrine Bitartrate 8, (000 mcg/ Dextrose) 500 mls @ 18.75 mls/hr IV TITR [facility]; Protocol Last Admin: 04/16/18 09:29 Dose: 8 mcg/min, 30 mls/hr Sodium Chloride (Normal Saline -) 1,000 mls @ 75 mls/hr IV ASDIR [facility] Last Admin: 04/16/18 09:23 Dose: 75 mls/hr Sodium Chloride (Normal Saline -) 250 mls @ 250 mls/hr IV Q6H [facility] Last Admin: 04/16/18 12:16 Dose: 250 mls/hr Lacosamide (Vimpat Liquid -) 10 mg GT BID [facility] Last Admin: 04/16/18 09:18 Dose: 10 mg Levetiracetam (Keppra Oral Solution -) 500 mg GT BID [facility] Last Admin: 04/16/18 12:20 Dose: 500 mg Multi-Ingredient Ointment (Zinc Oxide) 1 applic TP TID [facility] Last Admin: 04/16/18 15:09 Dose: 1 applic Mupirocin (Bactroban Ointment (For Decolonization) -) 1 applic NS BID [facility] Stop: 04/17/18 21:59 Last Admin: 04/16/18 09:21 Dose: 1 applic Valproate Sodium (Depakene -) 1,250 mg PO BID [facility] Last Admin: 04/16/18 12:19 Dose: 1,250 mg Vancomycin HCl (Vancomycin Oral Solution) 250 mg PEG Q6HPO [facility] Last Admin: 04/16/18 12:21 Dose: 250 mg - Objective Vital Signs: Vital Signs Temperature 98.7 F 04/16/18 14:00 Pulse Rate 76 04/16/18 14:00 Respiratory Rate 20 04/16/18 14:00 Blood Pressure 98/71 04/16/18 14:00 O2 Sat by Pulse Oximetry (%) 99 04/16/18 07:56 Constitutional: Yes: No Distress, Calm Cardiovascular: Yes: Regular Rate and Rhythm Respiratory: Yes: CTA Bilaterally Gastrointestinal: Yes: Normal Bowel Sounds, Soft Extremities: Yes: WNL Edema: No Neurological: Yes: Alert Labs: CBC, BMP 04/16/18 05:00 04/16/18 05:00 INR, PTT INR 1.28 (0.83-1.09) H 04/12/18 07:45 Microbiology 04/12/18 08:00 Blood - Peripheral Venous Blood Culture - Preliminary NO GROWTH OBTAINED AFTER 96 HOURS, INCUBATION TO CONTINUE FOR 1 DAYS. 04/12/18 08:00 Blood - Peripheral Venous Blood Culture - Preliminary NO GROWTH OBTAINED AFTER 96 HOURS, INCUBATION TO CONTINUE FOR 1 DAYS. 04/15/18 01:00 Stool Salmonella/Shigella Culture - Preliminary NO ENTERIC PATHOGENS, 24 HOURS, ON PRIMARY PLATES 04/15/18 01:00 Stool Yersinia Culture - Preliminary NO ENTERIC PATHOGENS, 24 HOURS, ON PRIMARY PLATES 04/15/18 01:00 Stool Vibrio Culture - Final NO GROWTH OF VIBRIO SPECIES OBTAINED 04/15/18 01:00 Stool Escherichia coli 0157 Culture - Final NO GROWTH OF E COLI 0157 OBTAINED 04/15/18 01:00 Stool Gram Stain - Final 04/15/18 01:00 Stool Clostridium difficile Antigen (ALEX) - Final 04/15/18 01:00 Stool Clostridium difficile Toxin Assay - Final 04/12/18 07:45 Urine - Urine - Catheterized Urine Culture - Final NO GROWTH OBTAINED Problem List - Problems (1) Hypernatremia Code(s): E87.0 - HYPEROSMOLALITY AND HYPERNATREMIA (2) Sepsis Code(s): A41.9 - SEPSIS, UNSPECIFIED ORGANISM Qualifiers: Sepsis type: sepsis due to unspecified organism Qualified Code(s): A41.9 - Sepsis, unspecified organism (3) NICOLÁS (acute kidney injury) Code(s): N17.9 - ACUTE KIDNEY FAILURE, UNSPECIFIED (4) Anemia Code(s): D64.9 - ANEMIA, UNSPECIFIED Qualifiers: Anemia type: unspecified type Qualified Code(s): D64.9 - Anemia, unspecified (5) CVA (cerebral vascular accident) Code(s): I63.9 - CEREBRAL INFARCTION, UNSPECIFIED Qualifiers: CVA mechanism: unspecified Qualified Code(s): I63.9 - Cerebral infarction, unspecified (6) Clostridium difficile diarrhea Code(s): A04.72 - ENTEROCOLITIS D/T CLOSTRIDIUM DIFFICILE, NOT SPCF RECUR (7) Failure to thrive in adult Code(s): R62.7 - ADULT FAILURE TO THRIVE (8) HLD (hyperlipidemia) Code(s): E78.5 - HYPERLIPIDEMIA, UNSPECIFIED (9) HTN (hypertension) Code(s): I10 - ESSENTIAL (PRIMARY) HYPERTENSION (10) Lactic acidosis Code(s): E87.2 - ACIDOSIS (11) Seizure Code(s): R56.9 - UNSPECIFIED CONVULSIONS Assessment/Plan 67 y.o. female with PMH of HTN, HLD, CVA, dysphagia/peg, seizure d.o., treated recently for sepsis due to VRE/Clostridium bacteremia and C. difficile colitis presenting with AMS, hypotension, hypernatremia, fever, leukocytosis, elevated lactic acid. Hospital records/imaging/labs reviewed Severe Sepsis C. difficile Colitis Hypotension AMS Fever Leukocytosis NICOLÁS Lactic acidosis History of VRE/Clostridium bacteremia Seizure d.o. CVA -- cultures negative -- d/c Zosyn, continue Vancomycin oral -- leukocytosis/fever resolved -- remains on Norepinephrine drip -- lactate normal, renal function improving -- continue monitor -- rest of care per critical care cc: 40 min
[2018-04-16] MEDS: ATORVASTATIN CA 40 MG TABLET (FP) GT SCH (22:00)
[2018-04-17] MEDS: VANCOMYCIN 250 MG/5 ML ORAL SOLUTION PEG SCH ×4 (01:00→18:00)
[2018-04-17] MEDS: CHLORHEXIDINE GLUCONATE 4% CLEANSER FOR DECOLONIZATION TP SCH ×2 (01:52→21:03)
[2018-04-17] MEDS: NOREPINEPHRINE BITARTRATE 8,000 MCG in DEXTROSE 5%-WATER - 492 ML IV SCH ×2 (01:55→23:26)
[2018-04-17] MEDS: SODIUM CHLORIDE 250 ML IV SCH ×2 (05:00→09:33)
[2018-04-17] MEDS: Lacosamide 50 MG/5 ML ORAL SOLUTION UNIT CUPS GT SCH ×3 (05:23→21:03)
[2018-04-17 05:49] LABS: BASO % 0.1 % (0-2.0); EOS % 2.4 % (0-4.5); HEMATOCRIT 24.6 % (32.4-45.2); HEMOGLOBIN 8.7 GM/dL (10.7-15.3); LYMPH % 34.7 % (8-40); MCH 32.6 pg (25.7-33.7); MCHC 35.3 g/dl (32.0-36.0); MEAN CELL VOLUME 92.3 fl (80-96); MEAN PLT VOLUME 10.3 fl (7.5-11.1); MONO % 8.1 % (3.8-10.2); NEUT % 54.7 % (42.8-82.8); PLATELET COUNT 120 K/MM3 (134-434); RBC 2.67 M/mm3 (3.60-5.2); RDW 18.7 % (11.6-15.6); WHITE BLOOD COUNT 5.5 K/mm3 (4.0-10.0)
[2018-04-17 05:57] LABS: ANION GAP 5 MMOL/L (8-16); BLOOD UREA NITROGEN 3 mg/dL (7-18); CALCIUM 7.6 mg/dL (8.5-10.1); CHLORIDE 117 mmol/L (98-107); CO2 28 mmol/L (21-32); CREATININE 0.4 mg/dL (0.55-1.3); GLUCOSE,RANDOM 134 mg/dL (74-106); MAGNESIUM 1.6 mg/dL (1.8-2.4); PHOSPHOROUS 2.6 mg/dL (2.5-4.9); POTASSIUM 3.6 mmol/L (3.5-5.1); SODIUM 150 mmol/L (136-145)
[2018-04-17] MEDS: SODIUM CHLORIDE 1,000 ML IV SCH ×2 (06:28→12:00)
[2018-04-17] MEDS: ZINC OXIDE 20% TOPICAL OINTMENT 30 GM TUBE TP SCH ×3 (06:29→21:04)
[2018-04-17] MEDS: ALBUTEROL SO4 0.083% IH SOL 2.5 MG/3 ML VIAL.NEB. NEB PRN (08:26)
[2018-04-17] MEDS ORDERED: MAGNESIUM 2GM/50ML STERILE WATER IVPB IVPB ONE (08:30)
[2018-04-17] MEDS ORDERED: POTASSIUM PHOSPHATE 15 MM in SODIUM CHLORIDE 250 ML IVPB ONE (09:00)
[2018-04-17] MEDS ORDERED: PT OWN MED DRAWER 7, Y5N ONE ×3 (09:24→22:13)
[2018-04-17] MEDS: HEPARIN NA (PORCINE) 5,000 UNITS/ML 1ML VIAL SQ SCH ×2 (09:29→21:02)
[2018-04-17] MEDS: ASPIRIN 81 MG CHEWABLE TABLETS PO SCH (09:29)
[2018-04-17] MEDS: VALPROATE SODIUM 250 MG/5 ML UNIT DOSE CUP PO SCH ×2 (09:29→21:03)
[2018-04-17] MEDS: levETIRAcetam 500 MG/5 ML ORAL SOLUTION (UNIT-DOSE CUPS) GT SCH ×2 (09:30→21:03)
[2018-04-17] MEDS: MUPIROCIN 2% TOPICAL OINTMENT FOR DECOLONIZATION NS SCH (09:33)
--- NOTE | 2018-04-17 11:03 | PN ---
Teaching Attending Note Name of Resident: Mateo Valentin ATTENDING PHYSICIAN STATEMENT I saw and evaluated the patient. I reviewed the resident's note and discussed the case with the resident. I agree with the resident's findings and plan as documented. SUBJECTIVE: Pt seen and examined in the ICU. More alert, awake. Remains on low dose levophed gtt. CVP ~2. OBJECTIVE: Vital Signs Period Temp Pulse Resp BP Sys/Levine Pulse Ox Last 24 Hr 97.9 F-98.7 F 51-104 16-48 85-145/50-118 99-99 Intake & Output 04/14/18 04/15/18 04/16/18 04/17/18 23:59 23:59 23:59 23:59 Intake Total 2875 4300.1 5421 675 Output Total 4600 1200 2900 Balance -1725 3100.1 2521 675 Weight 65.544 kg 62.142 kg 65.317 kg 64.864 kg Gen: NAD at rest Heart: RRR Lung: decreased breath sounds at the bases Abd: soft, nontender Ext: no edema CBC, BMP 04/17/18 05:20 04/17/18 05:20 Active Medications Acetaminophen (Ofirmev Injection -) 1,000 mg IVPB Q6H PRN PRN Reason: FEVER Last Admin: 04/13/18 10:03 Dose: 1,000 mg Albuterol Sulfate (Ventolin 0.083% Nebulizer Soln -) 1 amp NEB Q4H PRN PRN Reason: SHORT OF BREATH/WHEEZING Last Admin: 04/17/18 08:26 Dose: 1 amp Aspirin (Asa -) 81 mg PO DAILY [facility] Last Admin: 04/17/18 09:29 Dose: 81 mg Atorvastatin Calcium (Lipitor -) 40 mg GT HS [facility] Last Admin: 04/16/18 22:00 Dose: 40 mg Chlorhexidine Gluconate (Hibiclens For Decolonization -) 1 applic TP HS [facility] Last Admin: 04/17/18 01:52 Dose: 1 applic Heparin Sodium (Porcine) (Heparin -) 5,000 unit SQ BID [facility] Last Admin: 04/17/18 09:29 Dose: 5,000 unit Norepinephrine Bitartrate 8, (000 mcg/ Dextrose) 500 mls @ 18.75 mls/hr IV TITR [facility]; Protocol Last Titration: 04/17/18 09:00 Dose: 6 mcg/min, 22.5 mls/hr Sodium Chloride (Normal Saline -) 250 mls @ 250 mls/hr IV Q6H [facility] Last Admin: 04/17/18 09:33 Dose: 250 mls/hr Potassium Phosphate 15 mm/ (Sodium Chloride) 255 mls @ 62.5 mls/hr IVPB ONCE ONE Stop: 04/17/18 13:04 Sodium Chloride (Normal Saline -) 1,000 mls @ 125 mls/hr IV ASDIR [facility] Lacosamide (Vimpat Liquid -) 10 mg GT BID [facility] Last Admin: 04/17/18 09:31 Dose: 10 mg Levetiracetam (Keppra Oral Solution -) 500 mg GT BID [facility] Last Admin: 04/17/18 09:30 Dose: 500 mg Multi-Ingredient Ointment (Zinc Oxide) 1 applic TP TID [facility] Last Admin: 04/17/18 06:29 Dose: 1 applic Mupirocin (Bactroban Ointment (For Decolonization) -) 1 applic NS BID [facility] Stop: 04/17/18 21:59 Last Admin: 04/17/18 09:33 Dose: 1 applic Valproate Sodium (Depakene -) 1,250 mg PO BID [facility] Last Admin: 04/17/18 09:29 Dose: 1,250 mg Vancomycin HCl (Vancomycin Oral Solution) 250 mg PEG Q6HPO [facility] Last Admin: 04/17/18 06:28 Dose: 250 mg ASSESSMENT AND PLAN: Septic Shock Suspected Recurrent C Diff Colitis Severe Hypernatremia improving Acute Kidney Injury improving Lactic Acidosis resolved Thrombocytopenia h/o CVA Seizure Disorder Dementia - bolus IVF to keep CVP 8-12 - titrate pressors to maintain MAP >65 - continue antibiotics per ID - monitor urine output, creatinine - continue antiepileptics - aspiration precautions - O2 to keep SpO2 >90% - continue ICU monitoring critical care time spent in reviewing chart, evaluating patient and formulating plan 35 min
[2018-04-17] MEDS ORDERED: PANTOPRAZOLE SOD 40 MG SUSPENSION PACKET NGT SCH (11:15)
--- NOTE | 2018-04-17 11:26 | PN ---
Physical Exam: SUBJECTIVE: Patient seen and examined. KAILYN overnight. Attempted to titrate Levophed down overnight but Pt.'s MAP decreased to below 65. Pt. denies any complaints at this time except dryness of mouth. Pt. is requesting some water or ice chips. OBJECTIVE: Vital Signs Period Temp Pulse Resp BP Sys/Levine Pulse Ox Last 24 Hr 97.9 F-98.7 F 51-104 16-48 85-145/50-118 99-99 GENERAL: The patient is awake, alert, and oriented only to name (A&Ox1), in no acute distress. EYES: sclera anicteric, conjunctiva clear ENT: Ears normal, nares patent, oropharynx clear without exudates, dry mucous membranes. LUNGS: anterior wheezing, decreased breath sounds bilaterally, some crackles in dependant positions HEART: Bradycardic regular rate and rhythm, S1, S2 without murmur ABDOMEN: Soft, nontender, nondistended, normoactive bowel sounds, no guarding, no rebound, G-tube in place EXTREMITIES: 2+ dorsal pedal pulses, warm, well-perfused, no edema, no calf tenderness. Right-sided weakness. B/l sporadic tremors more pronounced in the left extremity. NEUROLOGICAL: gait not observed. SKIN: Warm, dry, normal turgor Laboratory Results - last 24 hr 04/17/18 04/17/18 05:20 05:20 WBC 5.5 RBC 2.67 L Hgb 8.7 L Hct 24.6 L MCV 92.3 MCH 32.6 MCHC 35.3 RDW 18.7 H Plt Count 120 L D MPV 10.3 Absolute Neuts (auto) 3.0 Neutrophils % 54.7 Lymphocytes % 34.7 Monocytes % 8.1 Eosinophils % 2.4 Basophils % 0.1 Nucleated RBC % 0 Sodium 150 H Potassium 3.6 Chloride 117 H Carbon Dioxide 28 Anion Gap 5 L BUN 3 L Creatinine 0.4 L Creat Clearance w eGFR > 60 Random Glucose 134 H Calcium 7.6 L Phosphorus 2.6 Magnesium 1.6 L Active Medications Current Medications Acetaminophen (Ofirmev Injection -) 1,000 mg IVPB Q6H PRN PRN Reason: FEVER Last Admin: 04/13/18 10:03 Dose: 1,000 mg Albuterol Sulfate (Ventolin 0.083% Nebulizer Soln -) 1 amp NEB Q4H PRN PRN Reason: SHORT OF BREATH/WHEEZING Last Admin: 04/17/18 08:26 Dose: 1 amp Aspirin (Asa -) 81 mg PO DAILY [facility] Last Admin: 04/17/18 09:29 Dose: 81 mg Atorvastatin Calcium (Lipitor -) 40 mg GT HS [facility] Last Admin: 04/16/18 22:00 Dose: 40 mg Chlorhexidine Gluconate (Hibiclens For Decolonization -) 1 applic TP HS [facility] Last Admin: 04/17/18 01:52 Dose: 1 applic Heparin Sodium (Porcine) (Heparin -) 5,000 unit SQ BID [facility] Last Admin: 04/17/18 09:29 Dose: 5,000 unit Norepinephrine Bitartrate 8, (000 mcg/ Dextrose) 500 mls @ 18.75 mls/hr IV TITR [facility]; Protocol Last Titration: 04/17/18 09:00 Dose: 6 mcg/min, 22.5 mls/hr Sodium Chloride (Normal Saline -) 250 mls @ 250 mls/hr IV Q6H [facility] Last Admin: 04/17/18 09:33 Dose: 250 mls/hr Potassium Phosphate 15 mm/ (Sodium Chloride) 255 mls @ 62.5 mls/hr IVPB ONCE ONE Stop: 04/17/18 13:04 Sodium Chloride (Normal Saline -) 1,000 mls @ 125 mls/hr IV ASDIR [facility] Lacosamide (Vimpat Liquid -) 10 mg GT BID [facility] Last Admin: 04/17/18 09:31 Dose: 10 mg Levetiracetam (Keppra Oral Solution -) 500 mg GT BID [facility] Last Admin: 04/17/18 09:30 Dose: 500 mg Multi-Ingredient Ointment (Zinc Oxide) 1 applic TP TID [facility] Last Admin: 04/17/18 06:29 Dose: 1 applic Mupirocin (Bactroban Ointment (For Decolonization) -) 1 applic NS BID [facility] Stop: 04/17/18 21:59 Last Admin: 04/17/18 09:33 Dose: 1 applic Pantoprazole Sodium (Protonix Iv) 40 mg IVPUSH DAILY [facility] Valproate Sodium (Depakene -) 1,250 mg PO BID [facility] Last Admin: 04/17/18 09:29 Dose: 1,250 mg Vancomycin HCl (Vancomycin Oral Solution) 250 mg PEG Q6HPO [facility] Last Admin: 04/17/18 06:28 Dose: 250 mg ASSESSMENT/PLAN: A 67yo female w/ PMHx. of HTN, hyperlipidemia, seizure disorder, CVA, dementia, recent hospitalizations for recurrent C diff colitis who [facility] for altered mental status and fevers. Found to be severely hypernatremic to 180 with acute renal failure. #Cardiovascular -HTN hold anti-HTN meds keep MAP above 65 increased Normal Saline to 125ml/hr decreased Levophed to 8mcg/hr, will try to wean off today c/w monitoring BP can give Hydrocortisone 50mg and Fludrocortisone 50mg is BP continues to drop. Can give midrodine if BP continues to drop as well. -HLD c/w Lipitor #Gastroenterology -Recent hospitalization for C.diff c/w Vancomycin (Day 6)- will consider stopping Vancomycin orally per ID (Dr. Junior) Stool Cx. have negative growth over 72hrs. D/c-ed Zosyn f/u ova and parasite Cx. D/C-ed Metronidazole D/c-ed Daptomycin contact precautions completed Diflucan dose for broad spectrum coverage. #Renal -Acute Renal Failure resolved Dr. Clemons (Nephrology) consult appreciated -Hypernatremia resolving- Pt. has been holding at Na+:~150 for 3 consecutive days c/w NS @ 125ml/hr Goal of decreasing sodium by 0.5 units per hour #Endocrine -Suspected Adrenal Insufficency f/u Urine Cortisol level will start Cortisol if level is low #Neurology -Seizure disorder No seizures observed throughout hospital course c/w Keppra c/w Valproic Acid c/w Lacosimide #DVT Ppx. -Heparin SQ BID -Hold Lovenox #F/E/N -Titrated NS to 125ml/hr -D/c-ed q6h boluses, -Na+ is now 150, monitoring to decrease Na+ by 0.5 units/hr -f/u BMP in AM -Free water deficit of 2.0L -RD consult appreciated. Tube feeds switched to Jevity 1.5 (home regimen) with a reduced rate @ 30cc/hr with a goal target volume of 1L. #Dispo: ICU We will continue to follow the patient. Thank you for this consultative opportunity. Visit type - Emergency Visit Emergency Visit: Yes ED Registration Date: 04/12/18 Care time: The patient presented to the Emergency Department on the above date and was hospitalized for further evaluation of their emergent condition. - New Patient This patient is new to me today: No - Critical Care Critical Care patient: No - Discharge Referral Referred to [facility] No
--- NOTE | 2018-04-17 11:51 | PN ---
Progress Note (short form) - Note Progress Note: Renal follow up for NICOLÁS/Severe Hypernatremia Pt seen and examined in the ICU awake and alert no acute complaints no sob, cp, abd pain, N/V/D Vital Signs Temperature 98.1 F 04/17/18 10:00 Pulse Rate 71 04/17/18 10:00 Respiratory Rate 16 04/17/18 10:00 Blood Pressure 107/64 04/17/18 10:00 O2 Sat by Pulse Oximetry (%) 99 04/17/18 09:00 Intake & Output 04/14/18 04/15/18 04/16/18 04/17/18 23:59 23:59 23:59 23:59 Intake Total 2875 4300.1 5421 675 Output Total 4600 1200 2900 Balance -1725 3100.1 2521 675 Weight 65.544 kg 62.142 kg 65.317 kg 64.864 kg NAD CTA No LE edema bingham in place CBC, BMP 04/17/18 05:20 04/17/18 05:20 Current Medications Acetaminophen (Ofirmev Injection -) 1,000 mg IVPB Q6H PRN PRN Reason: FEVER Last Admin: 04/13/18 10:03 Dose: 1,000 mg Albuterol Sulfate (Ventolin 0.083% Nebulizer Soln -) 1 amp NEB Q4H PRN PRN Reason: SHORT OF BREATH/WHEEZING Last Admin: 04/17/18 08:26 Dose: 1 amp Aspirin (Asa -) 81 mg PO DAILY [facility] Last Admin: 04/17/18 09:29 Dose: 81 mg Atorvastatin Calcium (Lipitor -) 40 mg GT HS [facility] Last Admin: 04/16/18 22:00 Dose: 40 mg Chlorhexidine Gluconate (Hibiclens For Decolonization -) 1 applic TP HS [facility] Last Admin: 04/17/18 01:52 Dose: 1 applic Heparin Sodium (Porcine) (Heparin -) 5,000 unit SQ BID [facility] Last Admin: 04/17/18 09:29 Dose: 5,000 unit Norepinephrine Bitartrate 8, (000 mcg/ Dextrose) 500 mls @ 18.75 mls/hr IV TITR [facility]; Protocol Last Titration: 04/17/18 09:00 Dose: 6 mcg/min, 22.5 mls/hr Potassium Phosphate 15 mm/ (Sodium Chloride) 255 mls @ 62.5 mls/hr IVPB ONCE ONE Stop: 04/17/18 13:04 Sodium Chloride (Normal Saline -) 1,000 mls @ 125 mls/hr IV ASDIR [facility] Lacosamide (Vimpat Liquid -) 10 mg GT BID [facility] Last Admin: 04/17/18 09:31 Dose: 10 mg Levetiracetam (Keppra Oral Solution -) 500 mg GT BID [facility] Last Admin: 04/17/18 09:30 Dose: 500 mg Multi-Ingredient Ointment (Zinc Oxide) 1 applic TP TID [facility] Last Admin: 04/17/18 06:29 Dose: 1 applic Mupirocin (Bactroban Ointment (For Decolonization) -) 1 applic NS BID [facility] Stop: 04/17/18 21:59 Last Admin: 04/17/18 09:33 Dose: 1 applic Pantoprazole Sodium (Protonix Iv) 40 mg IVPUSH DAILY [facility] Valproate Sodium (Depakene -) 1,250 mg PO BID [facility] Last Admin: 04/17/18 09:29 Dose: 1,250 mg Vancomycin HCl (Vancomycin Oral Solution) 250 mg PEG Q6HPO [facility] Last Admin: 04/17/18 06:28 Dose: 250 mg 67 year old woman with Hx of CVA, Hypertension, Anemia, Dysphagia, recent VRE/ Cdiff who presented with AMS/Fever and admitted for sepsis syndrome with NICOLÁS and hypernatremia. #Sepsis Syndrome #NICOLÁS in setting of sepsis/volume depletion #Hypernatremia (water deficit now 5.4 L ) #Anemia #Thrombocytopenia #Recent VRE/Cdiff #lactic acidosis Renal function improved and stable Serum na remains high but much improved continue isotonic saline, increase hourly rate and d/c Q6h bolous wean off pressers as tolerated consider eval for adrenal insufficiency Abx as per ID supportive care Thank you Constantino Clemons DO
[2018-04-17] MEDS: PANTOPRAZOLE SODIUM 40 MG VIAL IVPUSH SCH (12:00)
--- NOTE | 2018-04-17 12:52 | PN ---
Progress Note, Physician History of Present Illness: patient doing well no new issues patient still on pressors blood pressure remaining stable awake and alert urine output improving - Current Medication List Current Medications: Active Medications Acetaminophen (Ofirmev Injection -) 1,000 mg IVPB Q6H PRN PRN Reason: FEVER Last Admin: 04/13/18 10:03 Dose: 1,000 mg Albuterol Sulfate (Ventolin 0.083% Nebulizer Soln -) 1 amp NEB Q4H PRN PRN Reason: SHORT OF BREATH/WHEEZING Last Admin: 04/17/18 08:26 Dose: 1 amp Aspirin (Asa -) 81 mg PO DAILY [facility] Last Admin: 04/17/18 09:29 Dose: 81 mg Atorvastatin Calcium (Lipitor -) 40 mg GT HS [facility] Last Admin: 04/16/18 22:00 Dose: 40 mg Chlorhexidine Gluconate (Hibiclens For Decolonization -) 1 applic TP HS [facility] Last Admin: 04/17/18 01:52 Dose: 1 applic Heparin Sodium (Porcine) (Heparin -) 5,000 unit SQ BID [facility] Last Admin: 04/17/18 09:29 Dose: 5,000 unit Norepinephrine Bitartrate 8, (000 mcg/ Dextrose) 500 mls @ 18.75 mls/hr IV TITR [facility]; Protocol Last Titration: 04/17/18 09:00 Dose: 6 mcg/min, 22.5 mls/hr Potassium Phosphate 15 mm/ (Sodium Chloride) 255 mls @ 62.5 mls/hr IVPB ONCE ONE Stop: 04/17/18 13:04 Sodium Chloride (Normal Saline -) 1,000 mls @ 125 mls/hr IV ASDIR [facility] Lacosamide (Vimpat Liquid -) 10 mg GT BID [facility] Last Admin: 04/17/18 09:31 Dose: 10 mg Levetiracetam (Keppra Oral Solution -) 500 mg GT BID [facility] Last Admin: 04/17/18 09:30 Dose: 500 mg Multi-Ingredient Ointment (Zinc Oxide) 1 applic TP TID [facility] Last Admin: 04/17/18 06:29 Dose: 1 applic Mupirocin (Bactroban Ointment (For Decolonization) -) 1 applic NS BID [facility] Stop: 04/17/18 21:59 Last Admin: 04/17/18 09:33 Dose: 1 applic Pantoprazole Sodium (Protonix Iv) 40 mg IVPUSH DAILY [facility] Valproate Sodium (Depakene -) 1,250 mg PO BID [facility] Last Admin: 04/17/18 09:29 Dose: 1,250 mg Vancomycin HCl (Vancomycin Oral Solution) 250 mg PEG Q6HPO [facility] Last Admin: 04/17/18 12:09 Dose: 250 mg - Objective Vital Signs: Vital Signs Temperature 98.1 F 04/17/18 10:00 Pulse Rate 71 04/17/18 10:00 Respiratory Rate 16 04/17/18 10:00 Blood Pressure 107/64 04/17/18 10:00 O2 Sat by Pulse Oximetry (%) 99 04/17/18 09:00 Constitutional: Yes: No Distress, Calm HENT: Yes: Other (central line) Cardiovascular: Yes: Regular Rate and Rhythm Respiratory: Yes: Regular, CTA Bilaterally Gastrointestinal: Yes: Normal Bowel Sounds, Soft, Other (feeding tube in place) Musculoskeletal: Yes: WNL Extremities: Yes: WNL Neurological: Yes: Alert Psychiatric: Yes: Alert Labs: CBC, BMP 04/17/18 05:20 04/17/18 05:20 INR, PTT INR 1.28 (0.83-1.09) H 04/12/18 07:45 Assessment/Plan Problem List - Problems (1) Hypernatremia Code(s): E87.0 - HYPEROSMOLALITY AND HYPERNATREMIA (2) Sepsis Code(s): A41.9 - SEPSIS, UNSPECIFIED ORGANISM Qualifiers: Sepsis type: sepsis due to unspecified organism Qualified Code(s): A41.9 - Sepsis, unspecified organism (3) NICOLÁS (acute kidney injury) Code(s): N17.9 - ACUTE KIDNEY FAILURE, UNSPECIFIED (4) Anemia Code(s): D64.9 - ANEMIA, UNSPECIFIED Qualifiers: Anemia type: unspecified type Qualified Code(s): D64.9 - Anemia, unspecified (5) CVA (cerebral vascular accident) Code(s): I63.9 - CEREBRAL INFARCTION, UNSPECIFIED Qualifiers: CVA mechanism: unspecified Qualified Code(s): I63.9 - Cerebral infarction, unspecified (6) Clostridium difficile diarrhea Code(s): A04.72 - ENTEROCOLITIS D/T CLOSTRIDIUM DIFFICILE, NOT SPCF RECUR (7) Failure to thrive in adult Code(s): R62.7 - ADULT FAILURE TO THRIVE (8) HLD (hyperlipidemia) Code(s): E78.5 - HYPERLIPIDEMIA, UNSPECIFIED (9) HTN (hypertension) Code(s): I10 - ESSENTIAL (PRIMARY) HYPERTENSION (10) Lactic acidosis Code(s): E87.2 - ACIDOSIS (11) Seizure Code(s): R56.9 - UNSPECIFIED CONVULSIONS Assessment/Plan 67 y.o. female with PMH of HTN, HLD, CVA, dysphagia/peg, seizure d.o., treated recently for sepsis due to VRE/Clostridium bacteremia and C. difficile colitis presenting with AMS, hypotension, hypernatremia, fever, leukocytosis, elevated lactic acid. Hospital records/imaging/labs reviewed Severe Sepsis C. difficile Colitis Hypotension AMS Fever Leukocytosis NICOLÁS Lactic acidosis History of VRE/Clostridium bacteremia Seizure d.o. CVA plan consider stopping vanco orally iv fluids electrolyte monitoring rest as per the team taper pressors as tolerated cc time 40 min
--- NOTE | 2018-04-17 13:32 | PN ---
Progress Note (short form) - Note Progress Note: pt seen/ examined in icu awake/ comfortable all f/u noted remains dependent on pressors afebrile diarrhea improved rate of feeding was decreased yesterday - changed to Javity also getting fluids-- rate increased Vital Signs Temp 98.1 F 04/17/18 10:00 Pulse 71 04/17/18 10:00 Resp 16 04/17/18 10:00 BP 107/64 04/17/18 10:00 Pulse Ox 99 04/17/18 09:00 Intake & Output 04/16/18 04/17/18 04/17/18 23:59 11:59 23:59 Intake Total 4016 675 Output Total 1999 Balance 2015 67 Weight 143 lb Intake: IV 2310 475 Levophed - 8,000 Mcg In 360 D5w - 492 ml @ 5 MCG/MIN 18.75 mls/hr IV TITR [facility] Rx#:[id number] Normal Saline - 1,000 ml 1200 225 @ 75 mls/hr IV ASDIR [facility] Rx#:[id number] Normal Saline - 250 ml @ 750 250 250 mls/hr IV Q6H [facility] Rx# :[id number] IVPB 200 Tube Feeding 566 Tube Irrigant 940 200 Output: Urine 1999 Handy 1999 Other: Voiding Method Indwelling Catheter Indwelling Catheter Bowel Movement Yes: 1 large watery # Bowel Movements 1 Body Mass Index (BMI) 23.1 Weight Measurement Method Built in [facility] Active Medications Acetaminophen (Ofirmev Injection -) 1,000 mg IVPB Q6H PRN PRN Reason: FEVER Last Admin: 04/13/18 10:03 Dose: 1,000 mg Albuterol Sulfate (Ventolin 0.083% Nebulizer Soln -) 1 amp NEB Q4H PRN PRN Reason: SHORT OF BREATH/WHEEZING Last Admin: 04/17/18 08:26 Dose: 1 amp Aspirin (Asa -) 81 mg PO DAILY [facility] Last Admin: 04/17/18 09:29 Dose: 81 mg Atorvastatin Calcium (Lipitor -) 40 mg GT HS [facility] Last Admin: 04/16/18 22:00 Dose: 40 mg Chlorhexidine Gluconate (Hibiclens For Decolonization -) 1 applic TP HS [facility] Last Admin: 04/17/18 01:52 Dose: 1 applic Heparin Sodium (Porcine) (Heparin -) 5,000 unit SQ BID [facility] Last Admin: 04/17/18 09:29 Dose: 5,000 unit Norepinephrine Bitartrate 8, (000 mcg/ Dextrose) 500 mls @ 18.75 mls/hr IV TITR [facility]; Protocol Last Titration: 04/17/18 09:00 Dose: 6 mcg/min, 22.5 mls/hr Sodium Chloride (Normal Saline -) 1,000 mls @ 125 mls/hr IV ASDIR [facility] Lacosamide (Vimpat Liquid -) 10 mg GT BID [facility] Last Admin: 04/17/18 09:31 Dose: 10 mg Levetiracetam (Keppra Oral Solution -) 500 mg GT BID [facility] Last Admin: 04/17/18 09:30 Dose: 500 mg Multi-Ingredient Ointment (Zinc Oxide) 1 applic TP TID [facility] Last Admin: 04/17/18 06:29 Dose: 1 applic Mupirocin (Bactroban Ointment (For Decolonization) -) 1 applic NS BID [facility] Stop: 04/17/18 21:59 Last Admin: 04/17/18 09:33 Dose: 1 applic Pantoprazole Sodium (Protonix Iv) 40 mg IVPUSH DAILY [facility] Valproate Sodium (Depakene -) 1,250 mg PO BID [facility] Last Admin: 04/17/18 09:29 Dose: 1,250 mg Vancomycin HCl (Vancomycin Oral Solution) 250 mg PEG Q6HPO [facility] Last Admin: 04/17/18 12:09 Dose: 250 mg CBC, BMP 04/17/18 05:20 04/17/18 05:20 Microbiology 04/15/18 01:00 Salmonella/Shigella Culture - Final Stool NO GROWTH OF SALMONELLA OR SHIGELLA SPECIES OBTAINED Campylobacter Culture - Final NO GROWTH OF CAMPYLOBACTER SPECIES OBTAINED Yersinia Culture - Final NO GROWTH OF YERSINIA SPECIES OBTAINED Vibrio Culture - Final NO GROWTH OF VIBRIO SPECIES OBTAINED Escherichia coli 0157 Culture - Final NO GROWTH OF E COLI 0157 OBTAINED 04/12/18 08:00 Blood Culture - Final Blood - Peripheral Venous NO GROWTH AFTER 5 DAYS INCUBATION 04/12/18 08:00 Blood Culture - Final Blood - Peripheral Venous NO GROWTH AFTER 5 DAYS INCUBATION Physical Exam comfortable neck- central line + S1 S2 RRR Lungs decreased breath sounds B/L Abd- soft, bs+ . peg + No edema. PLAN clinically better on Levophed drip -- taper as tolerated Abx-- on po vanco c diff -ve fluids Monitor lytes will follow icu team also following// discussed with icu resident Problem List - Problems (1) Hypernatremia Code(s): E87.0 - HYPEROSMOLALITY AND HYPERNATREMIA (2) Sepsis Code(s): A41.9 - SEPSIS, UNSPECIFIED ORGANISM Qualifiers: Sepsis type: sepsis due to unspecified organism Qualified Code(s): A41.9 - Sepsis, unspecified organism (3) NICOLÁS (acute kidney injury) Code(s): N17.9 - ACUTE KIDNEY FAILURE, UNSPECIFIED (4) Anemia Code(s): D64.9 - ANEMIA, UNSPECIFIED Qualifiers: Anemia type: unspecified type Qualified Code(s): D64.9 - Anemia, unspecified
--- NOTE | 2018-04-17 13:32 | PN ---
Progress Note (short form) - Note Progress Note: Late note entry for 04/16/18 pt was seen/ examined in icu Comfortable Alert/ awake afebrile all f/u noted vitals stable labs - noted o/e awake/ comfortable lungs- clear cvs- s1, s2 rrr abd - soft ext- no edema Assessment/Plan In summary 67 y.o. female with PMH of HTN, HLD, CVA, dysphagia/peg, seizure d.o., treated recently for sepsis due to VRE/Clostridium bacteremia and C. difficile colitis presented with AMS, hypotension, hypernatremia, fever, leukocytosis, elevated lactic acid. Sepsis Leukocytosis NICOLÁS Continue abx wbc trending down f/u cultures taper off pressors as tolerated discussed with icu team will follow' Problem List - Problems (1) Hypernatremia Code(s): E87.0 - HYPEROSMOLALITY AND HYPERNATREMIA (2) Sepsis Code(s): A41.9 - SEPSIS, UNSPECIFIED ORGANISM Qualifiers: Sepsis type: sepsis due to unspecified organism Qualified Code(s): A41.9 - Sepsis, unspecified organism (3) NICOLÁS (acute kidney injury) Code(s): N17.9 - ACUTE KIDNEY FAILURE, UNSPECIFIED (4) Anemia Code(s): D64.9 - ANEMIA, UNSPECIFIED Qualifiers: Anemia type: unspecified type Qualified Code(s): D64.9 - Anemia, unspecified
[2018-04-17] MEDS: ATORVASTATIN CA 40 MG TABLET (FP) GT SCH (21:02)
[2018-04-18] MEDS: VANCOMYCIN 250 MG/5 ML ORAL SOLUTION PEG SCH ×3 (00:08→19:28)
[2018-04-18] MEDS: ZINC OXIDE 20% TOPICAL OINTMENT 30 GM TUBE TP SCH ×3 (05:00→21:20)
[2018-04-18 06:13] LABS: BASO % 0.1 % (0-2.0); EOS % 2.3 % (0-4.5); HEMATOCRIT 23.9 % (32.4-45.2); HEMOGLOBIN 8.1 GM/dL (10.7-15.3); LYMPH % 38.3 % (8-40); MCH 30.9 pg (25.7-33.7); MCHC 33.9 g/dl (32.0-36.0); MEAN CELL VOLUME 90.9 fl (80-96); MONO % 7.7 % (3.8-10.2); NEUT % 51.6 % (42.8-82.8); PLATELET COUNT 114 K/MM3 (134-434); RBC 2.63 M/mm3 (3.60-5.2); RDW 18.8 % (11.6-15.6); WHITE BLOOD COUNT 5.4 K/mm3 (4.0-10.0)
[2018-04-18 06:37] LABS: CHLORIDE 113 mmol/L (98-107); POTASSIUM 3.2 mmol/L (3.5-5.1); SODIUM 147 mmol/L (136-145)
[2018-04-18 06:43] LABS: ANION GAP 7 MMOL/L (8-16); CALCIUM 7.6 mg/dL (8.5-10.1); CO2 27 mmol/L (21-32); CREATININE 0.4 mg/dL (0.55-1.3); GLUCOSE,RANDOM 95 mg/dL (74-106); MAGNESIUM 1.7 mg/dL (1.8-2.4); PHOSPHOROUS 2.8 mg/dL (2.5-4.9)
[2018-04-18 06:47] LABS: BLOOD UREA NITROGEN 2 mg/dL (7-18)
[2018-04-18] MEDS ORDERED: MAGNESIUM SULF 50% (8.12 MEQ/2 ML-1 GM VIAL) IVPB ONE (07:13)
[2018-04-18] MEDS ORDERED: POTASSIUM CHLORIDE 20 MEQ PREMIX IVPB 100 ML IVPB ONE (07:16)
[2018-04-18] MEDS: ALBUTEROL SO4 0.083% IH SOL 2.5 MG/3 ML VIAL.NEB. NEB PRN (07:30)
[2018-04-18] MEDS: POTASSIUM CHLORIDE ORAL LIQUID 20 MEQ/15 ML GT ONE ×2 (08:39→08:41)
[2018-04-18] MEDS: HEPARIN NA (PORCINE) 5,000 UNITS/ML 1ML VIAL SQ SCH ×2 (10:05→21:18)
[2018-04-18] MEDS: VALPROATE SODIUM 250 MG/5 ML UNIT DOSE CUP PO SCH ×2 (10:06→21:18)
[2018-04-18] MEDS: ASPIRIN 81 MG CHEWABLE TABLETS PO SCH (10:08)
[2018-04-18] MEDS: PANTOPRAZOLE SODIUM 40 MG VIAL IVPUSH SCH (10:08)
[2018-04-18] MEDS: levETIRAcetam 500 MG/5 ML ORAL SOLUTION (UNIT-DOSE CUPS) GT SCH ×2 (10:09→21:20)
--- NOTE | 2018-04-18 10:15 | PN ---
Progress Note (short form) - Note Progress Note: awake, Levophed discontinued today AM BP is acceptable No distress smiling Vital Signs - 24 hr 04/17/18 04/17/18 04/17/18 12:00 14:00 16:00 Temperature Pulse Rate 85 88 89 Respiratory 17 20 21 Rate Blood Pressure 102/65 105/67 111/68 O2 Sat by Pulse Oximetry (%) 04/17/18 04/17/18 04/17/18 18:00 19:00 20:00 Temperature 98.2 F Pulse Rate 84 86 83 Respiratory 17 13 Rate Blood Pressure 109/74 96/60 111/70 O2 Sat by Pulse Oximetry (%) 04/17/18 04/17/18 04/17/18 20:49 21:00 22:00 Temperature 98.8 F Pulse Rate 94 H Respiratory 13 15 Rate Blood Pressure 114/76 O2 Sat by Pulse 96 96 Oximetry (%) 04/17/18 04/18/18 04/18/18 23:26 00:00 02:00 Temperature Pulse Rate 93 H 99 H 98 H Respiratory 23 22 Rate Blood Pressure 112/69 98/81 109/79 O2 Sat by Pulse Oximetry (%) 04/18/18 04/18/18 04/18/18 02:38 03:00 04:00 Temperature 97.8 F Pulse Rate 95 H 88 Respiratory 15 Rate Blood Pressure 106/73 125/83 O2 Sat by Pulse Oximetry (%) 04/18/18 04/18/18 06:00 08:00 Temperature 98.1 F Pulse Rate 79 76 Respiratory 21 21 Rate Blood Pressure 95/67 94/64 O2 Sat by Pulse Oximetry (%) Current Medications Generic Name Dose Route Start Last Admin Trade Name Freq PRN Reason Stop Dose Admin Acetaminophen 1,000 mg 04/12/18 17:12 04/13/18 10:03 Ofirmev Injection - IVPB 1,000 mg Q6H PRN Administration FEVER Albuterol Sulfate 1 amp 04/12/18 13:42 04/18/18 07:30 Ventolin 0.083% Nebulizer Soln - NEB 1 amp Q4H PRN Administration SHORT OF BREATH/WHEEZING Aspirin 81 mg 04/13/18 10:00 04/18/18 10:08 Asa - PO 81 mg DAILY [facility] Administration Atorvastatin Calcium 40 mg 04/12/18 22:00 04/17/18 21:02 Lipitor - GT 40 mg HS [facility] Administration Chlorhexidine Gluconate 1 applic 04/12/18 22:00 04/17/18 21:03 Hibiclens For Decolonization - TP 1 applic HS [facility] Administration Heparin Sodium (Porcine) 5,000 unit 04/12/18 22:00 04/18/18 10:05 Heparin - SQ 5,000 unit BID [facility] Administration Norepinephrine Bitartrate 8, 500 mls @ 18.75 mls/hr 04/12/18 23:45 04/18/18 06:00 000 mcg/ Dextrose IV 0.5 mcg/min TITR [facility] 1.87 mls/hr Titration Protocol 5 MCG/MIN Sodium Chloride 1,000 mls @ 125 mls/hr 04/17/18 11:00 04/17/18 12:00 Normal Saline - IV 125 mls/hr ASDIR [facility] Administration Lacosamide 10 mg 04/17/18 02:15 04/17/18 21:03 Vimpat Liquid - GT 10 mg BID [facility] Administration Levetiracetam 500 mg 04/12/18 22:00 04/18/18 10:09 Keppra Oral Solution - GT 500 mg BID [facility] Administration Multi-Ingredient Ointment 1 applic 04/12/18 22:00 04/18/18 05:00 Zinc Oxide TP 1 applic TID [facility] Administration Pantoprazole Sodium 40 mg 04/17/18 11:15 04/18/18 10:08 Protonix Iv IVPUSH 40 mg DAILY [facility] Administration Valproate Sodium 1,250 mg 04/12/18 22:00 04/18/18 10:06 Depakene - PO 1,250 mg BID [facility] Administration Vancomycin HCl 250 mg 04/12/18 12:00 04/18/18 05:00 Vancomycin Oral Solution PEG 250 mg Q6HPO [facility] Administration Laboratory Results - last 24 hr 04/18/18 04/18/18 05:30 05:30 WBC 5.4 RBC 2.63 L Hgb 8.1 L Hct 23.9 L MCV 90.9 MCH 30.9 MCHC 33.9 RDW 18.8 H Plt Count 114 L MPV 10.0 Absolute Neuts (auto) 2.8 Neutrophils % 51.6 Lymphocytes % 38.3 Monocytes % 7.7 Eosinophils % 2.3 Basophils % 0.1 Nucleated RBC % 0 Sodium 147 H Potassium 3.2 L Chloride 113 H Carbon Dioxide 27 Anion Gap 7 L BUN 2 L* Creatinine 0.4 L Creat Clearance w eGFR > 60 Random Glucose 95 Calcium 7.6 L Phosphorus 2.8 Magnesium 1.7 L S1 S2 RRR Lungs decreased breath sounds B/L Abd- soft, NT, ND, BS+ No edema PLAN off Levophed drip antibiotics replace lytes continue GT feeding clinically better Problem List - Problems (1) Hypernatremia Code(s): E87.0 - HYPEROSMOLALITY AND HYPERNATREMIA (2) Sepsis Code(s): A41.9 - SEPSIS, UNSPECIFIED ORGANISM Qualifiers: Sepsis type: sepsis due to unspecified organism Qualified Code(s): A41.9 - Sepsis, unspecified organism (3) NICOLÁS (acute kidney injury) Code(s): N17.9 - ACUTE KIDNEY FAILURE, UNSPECIFIED (4) Anemia Code(s): D64.9 - ANEMIA, UNSPECIFIED Qualifiers: Anemia type: unspecified type Qualified Code(s): D64.9 - Anemia, unspecified
[2018-04-18] MEDS: Lacosamide 50 MG/5 ML ORAL SOLUTION UNIT CUPS GT SCH ×2 (10:20→21:19)
[2018-04-18] MEDS: SODIUM CHLORIDE 1,000 ML IV SCH (12:00)
[2018-04-18] MEDS ORDERED: SODIUM CHLORIDE 250 ML IV STA (12:15)
--- NOTE | 2018-04-18 12:50 | PN ---
Teaching Attending Note Name of Resident: Mateo Valentin ATTENDING PHYSICIAN STATEMENT I saw and evaluated the patient. I reviewed the resident's note and discussed the case with the resident. I agree with the resident's findings and plan as documented. SUBJECTIVE: Pt seen and examined in the ICU. Remains on low dose levophed gtt. More alert, awake. OBJECTIVE: Vital Signs Period Temp Pulse Resp BP Sys/Levine Pulse Ox Last 24 Hr 97.8 F-99.2 F 74-99 13-23 90-125/60-83 96-96 Intake & Output 04/15/18 04/16/18 04/17/18 04/18/18 23:59 23:59 23:59 23:59 Intake Total 4300.1 5421 2895 2190 Output Total 1200 2900 2500 940 Balance 3100.1 2521 395 1250 Weight 62.142 kg 65.317 kg 64.864 kg 65.091 kg Gen: more alert, awake Heart: RRR Lung: decreased breath sounds at the bases Abd: soft, nontender Ext: no edema CBC, BMP 04/18/18 05:30 04/18/18 05:30 Active Medications Acetaminophen (Ofirmev Injection -) 1,000 mg IVPB Q6H PRN PRN Reason: FEVER Last Admin: 04/13/18 10:03 Dose: 1,000 mg Albuterol Sulfate (Ventolin 0.083% Nebulizer Soln -) 1 amp NEB Q4H PRN PRN Reason: SHORT OF BREATH/WHEEZING Last Admin: 04/18/18 07:30 Dose: 1 amp Aspirin (Asa -) 81 mg PO DAILY [facility] Last Admin: 04/18/18 10:08 Dose: 81 mg Atorvastatin Calcium (Lipitor -) 40 mg GT HS [facility] Last Admin: 04/17/18 21:02 Dose: 40 mg Chlorhexidine Gluconate (Hibiclens For Decolonization -) 1 applic TP HS [facility] Last Admin: 04/17/18 21:03 Dose: 1 applic Heparin Sodium (Porcine) (Heparin -) 5,000 unit SQ BID [facility] Last Admin: 04/18/18 10:05 Dose: 5,000 unit Norepinephrine Bitartrate 8, (000 mcg/ Dextrose) 500 mls @ 18.75 mls/hr IV TITR [facility]; Protocol Last Titration: 04/18/18 10:00 Dose: 0 mcg/min, 0 mls/hr Sodium Chloride (Normal Saline -) 1,000 mls @ 125 mls/hr IV ASDIR [facility] Last Admin: 04/17/18 12:00 Dose: 125 mls/hr Sodium Chloride (Normal Saline -) 250 mls @ 250 mls/hr IV PRN STA Stop: 04/18/18 13:14 Lacosamide (Vimpat Liquid -) 10 mg GT BID [facility] Last Admin: 04/18/18 10:20 Dose: 10 mg Levetiracetam (Keppra Oral Solution -) 500 mg GT BID [facility] Last Admin: 04/18/18 10:09 Dose: 500 mg Midodrine (Proamatine -) 2.5 mg PO BID-MID PRN PRN Reason: MAP<65mm Hg OR SBP <90 Multi-Ingredient Ointment (Zinc Oxide) 1 applic TP TID [facility] Last Admin: 04/18/18 05:00 Dose: 1 applic Pantoprazole Sodium (Protonix Iv) 40 mg IVPUSH DAILY [facility] Last Admin: 04/18/18 10:08 Dose: 40 mg Valproate Sodium (Depakene -) 1,250 mg PO BID [facility] Last Admin: 04/18/18 10:06 Dose: 1,250 mg Vancomycin HCl (Vancomycin Oral Solution) 250 mg PEG Q6HPO [facility] Last Admin: 04/18/18 05:00 Dose: 250 mg ASSESSMENT AND PLAN: Septic Shock 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
--- NOTE | 2018-04-18 13:14 | PN ---
Progress Note, Physician History of Present Illness: patient better off of pressors no dirrhoea baseline - Current Medication List Current Medications: Active Medications Acetaminophen (Ofirmev Injection -) 1,000 mg IVPB Q6H PRN PRN Reason: FEVER Last Admin: 04/13/18 10:03 Dose: 1,000 mg Albuterol Sulfate (Ventolin 0.083% Nebulizer Soln -) 1 amp NEB Q4H PRN PRN Reason: SHORT OF BREATH/WHEEZING Last Admin: 04/18/18 07:30 Dose: 1 amp Aspirin (Asa -) 81 mg PO DAILY [facility] Last Admin: 04/18/18 10:08 Dose: 81 mg Atorvastatin Calcium (Lipitor -) 40 mg GT HS [facility] Last Admin: 04/17/18 21:02 Dose: 40 mg Chlorhexidine Gluconate (Hibiclens For Decolonization -) 1 applic TP HS [facility] Last Admin: 04/17/18 21:03 Dose: 1 applic Heparin Sodium (Porcine) (Heparin -) 5,000 unit SQ BID [facility] Last Admin: 04/18/18 10:05 Dose: 5,000 unit Norepinephrine Bitartrate 8, (000 mcg/ Dextrose) 500 mls @ 18.75 mls/hr IV TITR [facility]; Protocol Last Titration: 04/18/18 10:00 Dose: 0 mcg/min, 0 mls/hr Sodium Chloride (Normal Saline -) 1,000 mls @ 125 mls/hr IV ASDIR [facility] Last Admin: 04/17/18 12:00 Dose: 125 mls/hr Sodium Chloride (Normal Saline -) 250 mls @ 250 mls/hr IV PRN STA Stop: 04/18/18 13:14 Lacosamide (Vimpat Liquid -) 10 mg GT BID [facility] Last Admin: 04/18/18 10:20 Dose: 10 mg Levetiracetam (Keppra Oral Solution -) 500 mg GT BID [facility] Last Admin: 04/18/18 10:09 Dose: 500 mg Midodrine (Proamatine -) 2.5 mg PO BID-MID PRN PRN Reason: MAP<65mm Hg OR SBP <90 Multi-Ingredient Ointment (Zinc Oxide) 1 applic TP TID [facility] Last Admin: 04/18/18 05:00 Dose: 1 applic Pantoprazole Sodium (Protonix Iv) 40 mg IVPUSH DAILY [facility] Last Admin: 04/18/18 10:08 Dose: 40 mg Valproate Sodium (Depakene -) 1,250 mg PO BID [facility] Last Admin: 04/18/18 10:06 Dose: 1,250 mg - Objective Vital Signs: Vital Signs Temperature 99.2 F 04/18/18 10:00 Pulse Rate 76 04/18/18 12:00 Respiratory Rate 22 04/18/18 12:00 Blood Pressure 96/69 04/18/18 12:00 O2 Sat by Pulse Oximetry (%) 99 04/18/18 10:00 Constitutional: Yes: No Distress, Calm Cardiovascular: Yes: Regular Rate and Rhythm Respiratory: Yes: Regular, CTA Bilaterally Gastrointestinal: Yes: Normal Bowel Sounds, Soft, Other (peg in place) Musculoskeletal: Yes: WNL Extremities: Yes: WNL Neurological: Yes: Alert Psychiatric: Yes: Alert Labs: CBC, BMP 04/18/18 05:30 04/18/18 05:30 INR, PTT INR 1.28 (0.83-1.09) H 04/12/18 07:45 Assessment/Plan Problem List - Problems (1) Hypernatremia Code(s): E87.0 - HYPEROSMOLALITY AND HYPERNATREMIA (2) Sepsis Code(s): A41.9 - SEPSIS, UNSPECIFIED ORGANISM Qualifiers: Sepsis type: sepsis due to unspecified organism Qualified Code(s): A41.9 - Sepsis, unspecified organism (3) NICOLÁS (acute kidney injury) Code(s): N17.9 - ACUTE KIDNEY FAILURE, UNSPECIFIED (4) Anemia Code(s): D64.9 - ANEMIA, UNSPECIFIED Qualifiers: Anemia type: unspecified type Qualified Code(s): D64.9 - Anemia, unspecified (5) CVA (cerebral vascular accident) Code(s): I63.9 - CEREBRAL INFARCTION, UNSPECIFIED Qualifiers: CVA mechanism: unspecified Qualified Code(s): I63.9 - Cerebral infarction, unspecified (6) Clostridium difficile diarrhea Code(s): A04.72 - ENTEROCOLITIS D/T CLOSTRIDIUM DIFFICILE, NOT SPCF RECUR (7) Failure to thrive in adult Code(s): R62.7 - ADULT FAILURE TO THRIVE (8) HLD (hyperlipidemia) Code(s): E78.5 - HYPERLIPIDEMIA, UNSPECIFIED (9) HTN (hypertension) Code(s): I10 - ESSENTIAL (PRIMARY) HYPERTENSION (10) Lactic acidosis Code(s): E87.2 - ACIDOSIS (11) Seizure Code(s): R56.9 - UNSPECIFIED CONVULSIONS Assessment/Plan 67 y.o. female with PMH of HTN, HLD, CVA, dysphagia/peg, seizure d.o., treated recently for sepsis due to VRE/Clostridium bacteremia and C. difficile colitis presenting with AMS, hypotension, hypernatremia, fever, leukocytosis, elevated lactic acid. Hospital records/imaging/labs reviewed Severe Sepsis C. difficile Colitis Hypotension AMS Fever Leukocytosis NICOLÁS Lactic acidosis History of VRE/Clostridium bacteremia Seizure d.o. CVA plan stopped vanco rest continue as per icu continue monitoring patient improving cc time 40 min
[2018-04-18] MEDS: MIDODRINE HCL 2.5 MG TABLET PO PRN (13:51)
--- NOTE | 2018-04-18 15:11 | PN ---
Progress Note (short form) - Note Progress Note: Renal follow up for NICOLÁS/Severe Hypernatremia Pt seen and examined in the ICU awake and alert no acute complaints no sob, cp, abd pain, N/V/D Vital Signs Temperature 98.8 F 04/18/18 14:00 Pulse Rate 74 04/18/18 14:00 Respiratory Rate 22 04/18/18 14:00 Blood Pressure 98/67 04/18/18 14:00 O2 Sat by Pulse Oximetry (%) 99 04/18/18 10:00 Intake & Output 04/15/18 04/16/18 04/17/18 04/18/18 23:59 23:59 23:59 23:59 Intake Total 4300.1 5421 2895 2190 Output Total 1200 2900 2500 1940 Balance 3100.1 2521 395 250 Weight 62.142 kg 65.317 kg 64.864 kg 65.091 kg NAD CTA No LE edema bingham in place CBC, BMP 04/18/18 05:30 04/18/18 05:30 Current Medications Acetaminophen (Ofirmev Injection -) 1,000 mg IVPB Q6H PRN PRN Reason: FEVER Last Admin: 04/13/18 10:03 Dose: 1,000 mg Albuterol Sulfate (Ventolin 0.083% Nebulizer Soln -) 1 amp NEB Q4H PRN PRN Reason: SHORT OF BREATH/WHEEZING Last Admin: 04/18/18 07:30 Dose: 1 amp Aspirin (Asa -) 81 mg PO DAILY [facility] Last Admin: 04/18/18 10:08 Dose: 81 mg Atorvastatin Calcium (Lipitor -) 40 mg GT HS [facility] Last Admin: 04/17/18 21:02 Dose: 40 mg Chlorhexidine Gluconate (Hibiclens For Decolonization -) 1 applic TP HS [facility] Last Admin: 04/17/18 21:03 Dose: 1 applic Heparin Sodium (Porcine) (Heparin -) 5,000 unit SQ BID [facility] Last Admin: 04/18/18 10:05 Dose: 5,000 unit Sodium Chloride (Normal Saline -) 1,000 mls @ 125 mls/hr IV ASDIR [facility] Last Admin: 04/18/18 12:00 Dose: 125 mls/hr Lacosamide (Vimpat Liquid -) 10 mg GT BID [facility] Last Admin: 04/18/18 10:20 Dose: 10 mg Levetiracetam (Keppra Oral Solution -) 500 mg GT BID [facility] Last Admin: 04/18/18 10:09 Dose: 500 mg Midodrine (Proamatine -) 2.5 mg PO BID-MID PRN PRN Reason: MAP<65mm Hg OR SBP <90 Last Admin: 04/18/18 13:51 Dose: 2.5 mg Multi-Ingredient Ointment (Zinc Oxide) 1 applic TP TID [facility] Last Admin: 04/18/18 05:00 Dose: 1 applic Pantoprazole Sodium (Protonix Iv) 40 mg IVPUSH DAILY [facility] Last Admin: 04/18/18 10:08 Dose: 40 mg Valproate Sodium (Depakene -) 1,250 mg PO BID [facility] Last Admin: 04/18/18 10:06 Dose: 1,250 mg 67 year old woman with Hx of CVA, Hypertension, Anemia, Dysphagia, recent VRE/ Cdiff who presented with AMS/Fever and admitted for sepsis syndrome with NICOLÁS and hypernatremia. #Sepsis Syndrome #NICOLÁS in setting of sepsis/volume depletion #Hypernatremia (water deficit now 5.4 L ) #Anemia #Thrombocytopenia #Recent VRE/Cdiff #lactic acidosis Renal function improved and stable now off pressers continue isotonic saline as CVP is low, bolous as needed off Abx as per ID ICU monitoring Thank you Constantino Clemons DO
[2018-04-18] MEDS: ATORVASTATIN CA 40 MG TABLET (FP) GT SCH (21:19)
[2018-04-18] MEDS: CHLORHEXIDINE GLUCONATE 4% CLEANSER FOR DECOLONIZATION TP SCH (21:19)
[2018-04-18] MEDS ORDERED: SODIUM CHLORIDE 500 ML IV STA (22:23)
[2018-04-18] MEDS ORDERED: NOREPINEPHRINE BITARTRATE 4,000 MCG in DEXTROSE 5%-WATER - 496 ML IV SCH (22:30)
[2018-04-19 06:33] LABS: BASO % 0.3 % (0-2.0); HEMATOCRIT 23.5 % (32.4-45.2); HEMOGLOBIN 8.1 GM/dL (10.7-15.3); LYMPH % 40.2 % (8-40); MCH 31.4 pg (25.7-33.7); MCHC 34.4 g/dl (32.0-36.0); MEAN CELL VOLUME 91.4 fl (80-96); MEAN PLT VOLUME 10.1 fl (7.5-11.1); MONO % 6.6 % (3.8-10.2); NEUT % 50.9 % (42.8-82.8); PLATELET COUNT 137 K/MM3 (134-434); RBC 2.58 M/mm3 (3.60-5.2); RDW 18.7 % (11.6-15.6); WHITE BLOOD COUNT 5.2 K/mm3 (4.0-10.0)
[2018-04-19] MEDS: ZINC OXIDE 20% TOPICAL OINTMENT 30 GM TUBE TP SCH ×2 (06:38→13:47)
[2018-04-19 06:46] LABS: ALBUMIN 1.5 g/dl (3.4-5.0); ALK PHOS 74 U/L (45-117); ANION GAP 8 MMOL/L (8-16); BILIRUBIN,TOTAL 0.2 mg/dL (0.2-1); BLOOD UREA NITROGEN 4 mg/dL (7-18); CALCIUM 7.8 mg/dL (8.5-10.1); CHLORIDE 115 mmol/L (98-107); CO2 26 mmol/L (21-32); CREATININE 0.3 mg/dL (0.55-1.3); GLUCOSE,RANDOM 99 mg/dL (74-106); MAGNESIUM 1.8 mg/dL (1.8-2.4); PHOSPHOROUS 3.3 mg/dL (2.5-4.9); POTASSIUM 3.9 mmol/L (3.5-5.1); SGOT/AST 16 U/L (15-37); SGPT/ALT 11 U/L (13-61); SODIUM 149 mmol/L (136-145); TOT PROT 4.9 g/dl (6.4-8.2)
[2018-04-19] MEDS ORDERED: PT OWN MED DRAWER 7, Y5N ONE ×5 (06:50→21:08)
--- NOTE | 2018-04-19 08:59 | PN ---
Physical Exam: SUBJECTIVE: Patient seen and examined. Pt. BP went down to 60s/40s. Pt. bolused with fluids to good response. Pt. at this time has no complaints and endorses having a good night's sleep. Removed central line this morning. OBJECTIVE: Vital Signs Period Temp Pulse Resp BP Sys/Levine Pulse Ox Last 24 Hr 98.8 F-100.2 F 74-92 18-26 69-106/45-77 98-99 GENERAL: The patient is awake, alert, and fully oriented, in no acute distress. HEAD: Normal with no signs of trauma. EYES: PERRL, extraocular movements intact, sclera anicteric, conjunctiva clear. No ptosis. ENT: Ears normal, nares patent, oropharynx clear without exudates, moist mucous membranes. NECK: Trachea midline, full range of motion, supple. LUNGS: Breath sounds equal, clear to auscultation bilaterally, no wheezes, no crackles, no accessory muscle use. HEART: Regular rate and rhythm, S1, S2 without murmur, rub or gallop. ABDOMEN: Soft, nontender, nondistended, normoactive bowel sounds, no guarding, no rebound, no hepatosplenomegaly, no masses. EXTREMITIES: 2+ pulses, warm, well-perfused, no edema. NEUROLOGICAL: Normal speech, gait not observed. PSYCH: Normal mood, normal affect. SKIN: Warm, dry, normal turgor, no rashes or lesions noted Laboratory Results - last 24 hr 04/15/18 04/19/18 04/19/18 01:00 05:30 05:30 WBC 5.2 RBC 2.58 L Hgb 8.1 L Hct 23.5 L MCV 91.4 MCH 31.4 MCHC 34.4 RDW 18.7 H Plt Count 137 D MPV 10.1 Absolute Neuts (auto) 2.6 Neutrophils % 50.9 Lymphocytes % 40.2 H Monocytes % 6.6 Eosinophils % 2.0 Basophils % 0.3 Nucleated RBC % 0 Sodium 149 H Potassium 3.9 Chloride 115 H Carbon Dioxide 26 Anion Gap 8 BUN 4 L Creatinine 0.3 L Creat Clearance w eGFR > 60 Random Glucose 99 Calcium 7.8 L Phosphorus 3.3 Magnesium 1.8 Total Bilirubin 0.2 AST 16 ALT 11 L Alkaline Phosphatase 74 Total Protein 4.9 L Albumin 1.5 L Stool O & P Wet [place] & P Permanent Slide Final report Active Medications Current Medications Acetaminophen (Ofirmev Injection -) 1,000 mg IVPB Q6H PRN PRN Reason: FEVER Last Admin: 04/13/18 10:03 Dose: 1,000 mg Albuterol Sulfate (Ventolin 0.083% Nebulizer Soln -) 1 amp NEB Q4H PRN PRN Reason: SHORT OF BREATH/WHEEZING Last Admin: 04/18/18 07:30 Dose: 1 amp Aspirin (Asa -) 81 mg PO DAILY [facility] Last Admin: 04/18/18 10:08 Dose: 81 mg Atorvastatin Calcium (Lipitor -) 40 mg GT HS [facility] Last Admin: 04/18/18 21:19 Dose: 40 mg Chlorhexidine Gluconate (Hibiclens For Decolonization -) 1 applic TP HS [facility] Last Admin: 04/18/18 21:19 Dose: 1 applic Heparin Sodium (Porcine) (Heparin -) 5,000 unit SQ BID [facility] Last Admin: 04/18/18 21:18 Dose: 5,000 unit Sodium Chloride (Normal Saline -) 1,000 mls @ 125 mls/hr IV ASDIR [facility] Last Admin: 04/18/18 12:00 Dose: 125 mls/hr Norepinephrine Bitartrate 4, (000 mcg/ Dextrose) 500 mls @ 37.5 mls/hr IV TITR [facility]; Protocol Last Admin: 04/18/18 23:30 Dose: Not Given Lacosamide (Vimpat Liquid -) 10 mg GT BID [facility] Last Admin: 04/18/18 21:19 Dose: 10 mg Levetiracetam (Keppra Oral Solution -) 500 mg GT BID [facility] Last Admin: 04/18/18 21:20 Dose: 500 mg Midodrine (Proamatine -) 2.5 mg PO BID-MID PRN PRN Reason: MAP<65mm Hg OR SBP <90 Last Admin: 04/18/18 13:51 Dose: 2.5 mg Multi-Ingredient Ointment (Zinc Oxide) 1 applic TP TID [facility] Last Admin: 04/19/18 06:38 Dose: 1 applic Pantoprazole Sodium (Protonix Iv) 40 mg IVPUSH DAILY [facility] Last Admin: 04/18/18 10:08 Dose: 40 mg Valproate Sodium (Depakene -) 1,250 mg PO BID [facility] Last Admin: 04/18/18 21:18 Dose: 1,250 mg ASSESSMENT/PLAN: A 67yo female w/ PMHx. of HTN, hyperlipidemia, seizure disorder, CVA, dementia, recent hospitalizations for recurrent C diff colitis who was transferred from the detention for altered mental status and fevers. Found to be severely hypernatremic to 180 with acute renal failure. #Cardiovascular -HTN hold anti-HTN meds keep MAP above 65 increased Normal Saline to 125ml/hr Weaned off Levophed and central line removed c/w monitoring BP can give Hydrocortisone 50mg and Fludrocortisone 50mg is BP continues to drop. Can give midrodine if BP continues to drop as well. -HLD c/w Lipitor #Gastroenterology -Recent hospitalization for C.diff D/C-Vancomycin Stool Cx. have negative growth over 72hrs. D/c-ed Zosyn f/u ova and parasite Cx. D/C-ed Metronidazole D/c-ed Daptomycin contact precautions completed Diflucan dose for broad spectrum coverage. #Renal -Acute Renal Failure resolved Dr. Clemons (Nephrology) consult appreciated -Hypernatremia resolving- Na+ is now 149 c/w NS @ 125ml/hr #Endocrine -Suspected Adrenal Insufficency f/u Urine Cortisol level will start steroids if level is low #Neurology -Seizure disorder No seizures observed throughout hospital course c/w Keppra c/w Valproic Acid c/w Lacosimide #DVT Ppx. -Heparin SQ BID -Hold Lovenox #F/E/N -Titrated NS to 125ml/hr -D/c-ed q6h boluses, -Na+ is now 149, monitoring to decrease Na+ by 0.5 units/hr -f/u BMP in AM -RD consult appreciated. Tube feeds switched to Jevity 1.5 (home regimen) with a reduced rate @ 30cc/hr with a goal target volume of 1L. #Dispo: Med/Surg We will continue to follow the patient. Thank you for this consultative opportunity.
--- NOTE | 2018-04-19 09:46 | PN ---
Progress Note (short form) - Note Progress Note: awake,was hypotensive last night- received bolus of NS BP low No distress smiling Vital Signs - 24 hr 04/18/18 04/18/18 04/18/18 12:00 14:00 16:00 Temperature 98.8 F Pulse Rate 76 74 92 H Respiratory 22 22 21 Rate Blood Pressure 96/69 98/67 99/69 O2 Sat by Pulse Oximetry (%) 04/18/18 04/18/18 04/18/18 18:00 20:00 21:00 Temperature 98.9 F Pulse Rate 90 84 Respiratory 21 25 H 25 H Rate Blood Pressure 97/67 88/60 O2 Sat by Pulse 98 Oximetry (%) 04/18/18 04/18/18 04/18/18 21:48 22:00 22:30 Temperature 99.1 F Pulse Rate 85 88 Respiratory 24 25 H Rate Blood Pressure 69/45 77/45 O2 Sat by Pulse 98 Oximetry (%) 04/18/18 04/19/18 04/19/18 22:58 00:00 02:00 Temperature 100.2 F H Pulse Rate 84 84 84 Respiratory 26 H 25 H 23 Rate Blood Pressure 92/62 88/60 106/56 O2 Sat by Pulse Oximetry (%) 04/19/18 04/19/18 04/19/18 04:00 06:00 08:00 Temperature 99.8 F H 99.7 F H Pulse Rate 80 81 87 Respiratory 25 H 19 18 Rate Blood Pressure 92/53 100/77 97/68 O2 Sat by Pulse 99 Oximetry (%) 04/19/18 10:00 Temperature 99.7 F H Pulse Rate 84 Respiratory 19 Rate Blood Pressure 98/58 O2 Sat by Pulse Oximetry (%) Current Medications Generic Name Dose Route Start Last Admin Trade Name Freq PRN Reason Stop Dose Admin Acetaminophen 1,000 mg 04/12/18 17:12 04/13/18 10:03 Ofirmev Injection - IVPB 1,000 mg Q6H PRN Administration FEVER Albuterol Sulfate 1 amp 04/12/18 13:42 04/18/18 07:30 Ventolin 0.083% Nebulizer Soln - NEB 1 amp Q4H PRN Administration SHORT OF BREATH/WHEEZING Aspirin 81 mg 04/13/18 10:00 04/19/18 09:52 Asa - PO 81 mg DAILY [facility] Administration Atorvastatin Calcium 40 mg 04/12/18 22:00 04/18/18 21:19 Lipitor - GT 40 mg HS [facility] Administration Chlorhexidine Gluconate 1 applic 04/12/18 22:00 04/18/18 21:19 Hibiclens For Decolonization - TP 1 applic HS [facility] Administration Heparin Sodium (Porcine) 5,000 unit 04/12/18 22:00 04/19/18 09:55 Heparin - SQ 5,000 unit BID [facility] Administration Sodium Chloride 1,000 mls @ 125 mls/hr 04/17/18 11:00 04/18/18 12:00 Normal Saline - IV 125 mls/hr ASDIR [facility] Administration Lacosamide 10 mg 04/17/18 02:15 04/19/18 09:56 Vimpat Liquid - GT 10 mg BID [facility] Administration Levetiracetam 500 mg 04/12/18 22:00 04/19/18 09:55 Keppra Oral Solution - GT 500 mg BID [facility] Administration Midodrine 2.5 mg 04/18/18 12:04 04/19/18 09:57 Proamatine - PO 2.5 mg BID-MID PRN Administration MAP<65mm Hg OR SBP <90 Multi-Ingredient Ointment 1 applic 04/12/18 22:00 04/19/18 06:38 Zinc Oxide TP 1 applic TID [facility] Administration Pantoprazole Sodium 40 mg 04/17/18 11:15 04/19/18 09:56 Protonix Iv IVPUSH 40 mg DAILY [facility] Administration Valproate Sodium 1,250 mg 04/12/18 22:00 04/19/18 09:53 Depakene - PO 1,250 mg BID [facility] Administration Laboratory Results - last 24 hr 04/19/18 04/19/18 05:30 05:30 WBC 5.2 RBC 2.58 L Hgb 8.1 L Hct 23.5 L MCV 91.4 MCH 31.4 MCHC 34.4 RDW 18.7 H Plt Count 137 D MPV 10.1 Absolute Neuts (auto) 2.6 Neutrophils % 50.9 Lymphocytes % 40.2 H Monocytes % 6.6 Eosinophils % 2.0 Basophils % 0.3 Nucleated RBC % 0 Sodium 149 H Potassium 3.9 Chloride 115 H Carbon Dioxide 26 Anion Gap 8 BUN 4 L Creatinine 0.3 L Creat Clearance w eGFR > 60 Random Glucose 99 Calcium 7.8 L Phosphorus 3.3 Magnesium 1.8 Total Bilirubin 0.2 AST 16 ALT 11 L Alkaline Phosphatase 74 Total Protein 4.9 L Albumin 1.5 L S1 S2 RRR Lungs decreased breath sounds B/L Abd- soft, NT, ND, BS+ No edema PLAN off Levophed drip monitor BP antibiotics-- dc continue GT feeding clinically better Problem List - Problems (1) Hypernatremia Code(s): E87.0 - HYPEROSMOLALITY AND HYPERNATREMIA (2) Sepsis Code(s): A41.9 - SEPSIS, UNSPECIFIED ORGANISM Qualifiers: Sepsis type: sepsis due to unspecified organism Qualified Code(s): A41.9 - Sepsis, unspecified organism (3) NICOLÁS (acute kidney injury) Code(s): N17.9 - ACUTE KIDNEY FAILURE, UNSPECIFIED (4) Anemia Code(s): D64.9 - ANEMIA, UNSPECIFIED Qualifiers: Anemia type: unspecified type Qualified Code(s): D64.9 - Anemia, unspecified
[2018-04-19] MEDS: ASPIRIN 81 MG CHEWABLE TABLETS PO SCH (09:52)
[2018-04-19] MEDS: VALPROATE SODIUM 250 MG/5 ML UNIT DOSE CUP PO SCH ×2 (09:53→22:12)
[2018-04-19] MEDS: HEPARIN NA (PORCINE) 5,000 UNITS/ML 1ML VIAL SQ SCH ×2 (09:55→22:13)
[2018-04-19] MEDS: levETIRAcetam 500 MG/5 ML ORAL SOLUTION (UNIT-DOSE CUPS) GT SCH ×2 (09:55→22:14)
[2018-04-19] MEDS: Lacosamide 50 MG/5 ML ORAL SOLUTION UNIT CUPS GT SCH ×2 (09:56→22:17)
[2018-04-19] MEDS: PANTOPRAZOLE SODIUM 40 MG VIAL IVPUSH SCH (09:56)
[2018-04-19] MEDS: MIDODRINE HCL 2.5 MG TABLET PO PRN (09:57)
[2018-04-19] MEDS: SODIUM CHLORIDE 1,000 ML IV SCH ×2 (11:00→22:29)
[2018-04-19] MEDS ORDERED: PANTOPRAZOLE SOD 40 MG SUSPENSION PACKET PEG ONE (11:00)
--- NOTE | 2018-04-19 11:26 | PN ---
Teaching Attending Note Name of Resident: Mateo Valentin ATTENDING PHYSICIAN STATEMENT I saw and evaluated the patient. I reviewed the resident's note and discussed the case with the resident. I agree with the resident's findings and plan as documented. SUBJECTIVE: Pt seen and examined in the ICU. Off levophed gtt. No fevers recorded. Denies abdominal pain. OBJECTIVE: Vital Signs Period Temp Pulse Resp BP Sys/Levine Pulse Ox Last 24 Hr 98.8 F-100.2 F 74-92 18-26 69-106/45-77 98-99 Intake & Output 04/16/18 04/17/18 04/18/18 04/19/18 23:59 23:59 23:59 23:59 Intake Total 5421 2895 4495.7 2244 Output Total 2900 2500 2340 300 Balance 2521 395 2155.7 1944 Weight 65.317 kg 64.864 kg 65.091 kg 67.177 kg Gen: NAD at rest Heart: RRR Lung: decreased breath sounds at the bases Abd: soft, nontender Ext: no edema CBC, BMP 04/19/18 05:30 04/19/18 05:30 Active Medications Acetaminophen (Ofirmev Injection -) 1,000 mg IVPB Q6H PRN PRN Reason: FEVER Last Admin: 04/13/18 10:03 Dose: 1,000 mg Albuterol Sulfate (Ventolin 0.083% Nebulizer Soln -) 1 amp NEB Q4H PRN PRN Reason: SHORT OF BREATH/WHEEZING Last Admin: 04/18/18 07:30 Dose: 1 amp Aspirin (Asa -) 81 mg PO DAILY [facility] Last Admin: 04/19/18 09:52 Dose: 81 mg Atorvastatin Calcium (Lipitor -) 40 mg GT HS [facility] Last Admin: 04/18/18 21:19 Dose: 40 mg Chlorhexidine Gluconate (Hibiclens For Decolonization -) 1 applic TP HS [facility] Last Admin: 04/18/18 21:19 Dose: 1 applic Heparin Sodium (Porcine) (Heparin -) 5,000 unit SQ BID [facility] Last Admin: 04/19/18 09:55 Dose: 5,000 unit Sodium Chloride (Normal Saline -) 1,000 mls @ 125 mls/hr IV ASDIR [facility] Last Admin: 04/18/18 12:00 Dose: 125 mls/hr Lacosamide (Vimpat Liquid -) 10 mg GT BID [facility] Last Admin: 04/19/18 09:56 Dose: 10 mg Levetiracetam (Keppra Oral Solution -) 500 mg GT BID [facility] Last Admin: 04/19/18 09:55 Dose: 500 mg Midodrine (Proamatine -) 2.5 mg PO BID-MID PRN PRN Reason: MAP<65mm Hg OR SBP <90 Last Admin: 04/19/18 09:57 Dose: 2.5 mg Multi-Ingredient Ointment (Zinc Oxide) 1 applic TP TID [facility] Last Admin: 04/19/18 06:38 Dose: 1 applic Valproate Sodium (Depakene -) 1,250 mg PO BID [facility] Last Admin: 04/19/18 09:53 Dose: 1,250 mg ASSESSMENT AND PLAN: Septic Shock resolving 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
[2018-04-19] MEDS: ACETAMINOPHEN 1000 MG/100 ML VIAL (NON FORMULARY) IVPB PRN (11:32)
--- NOTE | 2018-04-19 12:15 | PN ---
Progress Note, Physician History of Present Illness: stable no new issues doing well - Current Medication List Current Medications: Active Medications Acetaminophen (Ofirmev Injection -) 1,000 mg IVPB Q6H PRN PRN Reason: FEVER Last Admin: 04/19/18 11:32 Dose: 1,000 mg Albuterol Sulfate (Ventolin 0.083% Nebulizer Soln -) 1 amp NEB Q4H PRN PRN Reason: SHORT OF BREATH/WHEEZING Last Admin: 04/18/18 07:30 Dose: 1 amp Aspirin (Asa -) 81 mg PO DAILY [facility] Last Admin: 04/19/18 09:52 Dose: 81 mg Atorvastatin Calcium (Lipitor -) 40 mg GT HS [facility] Last Admin: 04/18/18 21:19 Dose: 40 mg Chlorhexidine Gluconate (Hibiclens For Decolonization -) 1 applic TP HS [facility] Last Admin: 04/18/18 21:19 Dose: 1 applic Heparin Sodium (Porcine) (Heparin -) 5,000 unit SQ BID [facility] Last Admin: 04/19/18 09:55 Dose: 5,000 unit Sodium Chloride (Normal Saline -) 1,000 mls @ 125 mls/hr IV ASDIR [facility] Last Admin: 04/19/18 11:00 Dose: 125 mls/hr Lacosamide (Vimpat Liquid -) 10 mg GT BID [facility] Last Admin: 04/19/18 09:56 Dose: 10 mg Levetiracetam (Keppra Oral Solution -) 500 mg GT BID [facility] Last Admin: 04/19/18 09:55 Dose: 500 mg Midodrine (Proamatine -) 2.5 mg PO BID-MID PRN PRN Reason: MAP<65mm Hg OR SBP <90 Last Admin: 04/19/18 09:57 Dose: 2.5 mg Multi-Ingredient Ointment (Zinc Oxide) 1 applic TP TID [facility] Last Admin: 04/19/18 06:38 Dose: 1 applic Valproate Sodium (Depakene -) 1,250 mg PO BID [facility] Last Admin: 04/19/18 09:53 Dose: 1,250 mg - Objective Vital Signs: Vital Signs Temperature 99.7 F H 04/19/18 10:00 Pulse Rate 84 04/19/18 10:00 Respiratory Rate 04/19/18 10:00 Blood Pressure 98/58 04/19/18 10:00 O2 Sat by Pulse Oximetry (%) 99 04/19/18 08:00 Constitutional: Yes: No Distress, Calm Cardiovascular: Yes: Regular Rate and Rhythm Respiratory: Yes: Regular, CTA Bilaterally Gastrointestinal: Yes: Normal Bowel Sounds, Soft, Other (peg tube) Musculoskeletal: Yes: WNL Extremities: Yes: WNL Labs: CBC, BMP 04/19/18 05:30 04/19/18 05:30 INR, PTT INR 1.28 (0.83-1.09) H 04/12/18 07:45 Assessment/Plan Problem List - Problems (1) Hypernatremia Code(s): E87.0 - HYPEROSMOLALITY AND HYPERNATREMIA (2) Sepsis Code(s): A41.9 - SEPSIS, UNSPECIFIED ORGANISM Qualifiers: Sepsis type: sepsis due to unspecified organism Qualified Code(s): A41.9 - Sepsis, unspecified organism (3) NICOLÁS (acute kidney injury) Code(s): N17.9 - ACUTE KIDNEY FAILURE, UNSPECIFIED (4) Anemia Code(s): D64.9 - ANEMIA, UNSPECIFIED Qualifiers: Anemia type: unspecified type Qualified Code(s): D64.9 - Anemia, unspecified (5) CVA (cerebral vascular accident) Code(s): I63.9 - CEREBRAL INFARCTION, UNSPECIFIED Qualifiers: CVA mechanism: unspecified Qualified Code(s): I63.9 - Cerebral infarction, unspecified (6) Clostridium difficile diarrhea Code(s): A04.72 - ENTEROCOLITIS D/T CLOSTRIDIUM DIFFICILE, NOT SPCF RECUR (7) Failure to thrive in adult Code(s): R62.7 - ADULT FAILURE TO THRIVE (8) HLD (hyperlipidemia) Code(s): E78.5 - HYPERLIPIDEMIA, UNSPECIFIED (9) HTN (hypertension) Code(s): I10 - ESSENTIAL (PRIMARY) HYPERTENSION (10) Lactic acidosis Code(s): E87.2 - ACIDOSIS (11) Seizure Code(s): R56.9 - UNSPECIFIED CONVULSIONS Assessment/Plan 67 y.o. female with PMH of HTN, HLD, CVA, dysphagia/peg, seizure d.o., treated recently for sepsis due to VRE/Clostridium bacteremia and C. difficile colitis presenting with AMS, hypotension, hypernatremia, fever, leukocytosis, elevated lactic acid. Hospital records/imaging/labs reviewed Severe Sepsis C. difficile Colitis Hypotension AMS Fever Leukocytosis NICOLÁS Lactic acidosis History of VRE/Clostridium bacteremia Seizure d.o. CVA plan stable off of abx rest continue as per icu continue monitoring patient improving nutrition cc time 40 min
--- NOTE | 2018-04-19 14:56 | PN ---
Progress Note (short form) - Note Progress Note: Renal follow up for NICOLÁS/Severe Hypernatremia Pt seen and examined in the ICU awake and alert having loose stools no sob, cp, abd pain, N/V Vital Signs Temperature 98.9 F 04/19/18 14:00 Pulse Rate 78 04/19/18 14:00 Respiratory Rate 04/19/18 14:00 Blood Pressure 116/72 04/19/18 14:00 O2 Sat by Pulse Oximetry (%) 99 04/19/18 08:00 Intake & Output 04/16/18 04/17/18 04/18/18 04/19/18 23:59 23:59 23:59 23:59 Intake Total 5421 2895 4495.7 2344 Output Total 2900 2500 2340 300 Balance 2521 395 2155.7 2044 Weight 65.317 kg 64.864 kg 65.091 kg 67.177 kg NAD CTA No LE edema bingham in place CBC, BMP 04/19/18 05:30 04/19/18 05:30 Current Medications Acetaminophen (Ofirmev Injection -) 1,000 mg IVPB Q6H PRN PRN Reason: FEVER Last Admin: 04/19/18 11:32 Dose: 1,000 mg Albuterol Sulfate (Ventolin 0.083% Nebulizer Soln -) 1 amp NEB Q4H PRN PRN Reason: SHORT OF BREATH/WHEEZING Last Admin: 04/18/18 07:30 Dose: 1 amp Aspirin (Asa -) 81 mg PO DAILY [facility] Last Admin: 04/19/18 09:52 Dose: 81 mg Atorvastatin Calcium (Lipitor -) 40 mg GT HS [facility] Last Admin: 04/18/18 21:19 Dose: 40 mg Chlorhexidine Gluconate (Hibiclens For Decolonization -) 1 applic TP HS [facility] Last Admin: 04/18/18 21:19 Dose: 1 applic Heparin Sodium (Porcine) (Heparin -) 5,000 unit SQ BID [facility] Last Admin: 04/19/18 09:55 Dose: 5,000 unit Sodium Chloride (Normal Saline -) 1,000 mls @ 125 mls/hr IV ASDIR [facility] Last Admin: 04/19/18 11:00 Dose: 125 mls/hr Lacosamide (Vimpat Liquid -) 10 mg GT BID [facility] Last Admin: 04/19/18 09:56 Dose: 10 mg Levetiracetam (Keppra Oral Solution -) 500 mg GT BID [facility] Last Admin: 04/19/18 09:55 Dose: 500 mg Midodrine (Proamatine -) 2.5 mg PO BID-MID PRN PRN Reason: MAP<65mm Hg OR SBP <90 Last Admin: 04/19/18 09:57 Dose: 2.5 mg Multi-Ingredient Ointment (Zinc Oxide) 1 applic TP TID [facility] Last Admin: 04/19/18 13:47 Dose: 1 applic Valproate Sodium (Depakene -) 1,250 mg PO BID [facility] Last Admin: 04/19/18 09:53 Dose: 1,250 mg 67 year old woman with Hx of CVA, Hypertension, Anemia, Dysphagia, recent VRE/ Cdiff who presented with AMS/Fever and admitted for sepsis syndrome with NICOLÁS and hypernatremia. #Sepsis Syndrome #NICOLÁS in setting of sepsis/volume depletion #Hypernatremia (water deficit now 5.4 L ) #Anemia #Thrombocytopenia #Recent VRE/Cdiff #lactic acidosis Renal function improved and stable pt is non-oliguric titrate IVF to maintain CVP/MAP continue midodrine gtt ICU monitoring ID follow up for Abx Thank you Constantino Clemons DO
[2018-04-19] MEDS ORDERED: ACETAMINOPHEN 1000 MG/100 ML VIAL (NON FORMULARY) IVPB PRN (15:40)
[2018-04-19] MEDS ORDERED: ALBUTEROL SO4 0.083% IH SOL 2.5 MG/3 ML VIAL.NEB. NEB PRN (15:40)
[2018-04-19] MEDS ORDERED: MIDODRINE HCL 2.5 MG TABLET PO PRN (15:40)
[2018-04-19] MEDS: ATORVASTATIN CA 40 MG TABLET (FP) GT SCH (22:14)
[2018-04-19] MEDS: CHLORHEXIDINE GLUCONATE 4% CLEANSER FOR DECOLONIZATION TP SCH (22:20)
[2018-04-20] MEDS: ZINC OXIDE 20% TOPICAL OINTMENT 30 GM TUBE TP SCH ×4 (00:15→22:59)
[2018-04-20] MEDS ORDERED: PT OWN MED DRAWER 7, Y5N ONE (07:26)
--- NOTE | 2018-04-20 10:37 | PN ---
Progress Note, Physician History of Present Illness: stable no new issues - Current Medication List Current Medications: Active Medications Acetaminophen (Ofirmev Injection -) 1,000 mg IVPB Q6H PRN PRN Reason: FEVER Albuterol Sulfate (Ventolin 0.083% Nebulizer Soln -) 1 amp NEB Q4H PRN PRN Reason: SHORT OF BREATH/WHEEZING Aspirin (Asa -) 81 mg PO DAILY [facility] Atorvastatin Calcium (Lipitor -) 40 mg GT HS [facility] Last Admin: 04/19/18 22:14 Dose: 40 mg Chlorhexidine Gluconate (Hibiclens For Decolonization -) 1 applic TP HS [facility] Last Admin: 04/19/18 22:20 Dose: Not Given Heparin Sodium (Porcine) (Heparin -) 5,000 unit SQ BID [facility] Last Admin: 04/19/18 22:13 Dose: 5,000 unit Sodium Chloride (Normal Saline -) 1,000 mls @ 125 mls/hr IV ASDIR [facility] Last Admin: 04/19/18 22:29 Dose: 125 mls/hr Lacosamide (Vimpat Liquid -) 10 mg GT BID [facility] Last Admin: 04/19/18 22:17 Dose: 10 mg Levetiracetam (Keppra Oral Solution -) 500 mg GT BID [facility] Last Admin: 04/19/18 22:14 Dose: 500 mg Midodrine (Proamatine -) 2.5 mg PO BID-MID PRN PRN Reason: MAP<65mm Hg OR SBP <90 Multi-Ingredient Ointment (Zinc Oxide) 1 applic TP TID [facility] Last Admin: 04/20/18 06:47 Dose: 1 applic Valproate Sodium (Depakene -) 1,250 mg PO BID [facility] Last Admin: 04/19/18 22:12 Dose: 1,250 mg - Objective Vital Signs: Vital Signs Temperature 99.0 F 04/20/18 05:55 Pulse Rate 86 04/20/18 05:55 Respiratory Rate 18 04/20/18 05:55 Blood Pressure 99/59 04/20/18 05:55 O2 Sat by Pulse Oximetry (%) 99 04/19/18 21:00 Constitutional: Yes: No Distress, Calm Cardiovascular: Yes: Regular Rate and Rhythm Respiratory: Yes: Regular, CTA Bilaterally Gastrointestinal: Yes: Normal Bowel Sounds, Soft, Other (peg in place) Musculoskeletal: Yes: WNL Extremities: Yes: WNL Neurological: Yes: Alert, Oriented Psychiatric: Yes: Alert, Oriented Labs: CBC, BMP 04/19/18 05:30 04/19/18 05:30 INR, PTT INR 1.28 (0.83-1.09) H 04/12/18 07:45 Assessment/Plan Problem List - Problems (1) Hypernatremia Code(s): E87.0 - HYPEROSMOLALITY AND HYPERNATREMIA (2) Sepsis Code(s): A41.9 - SEPSIS, UNSPECIFIED ORGANISM Qualifiers: Sepsis type: sepsis due to unspecified organism Qualified Code(s): A41.9 - Sepsis, unspecified organism (3) NICOLÁS (acute kidney injury) Code(s): N17.9 - ACUTE KIDNEY FAILURE, UNSPECIFIED (4) Anemia Code(s): D64.9 - ANEMIA, UNSPECIFIED Qualifiers: Anemia type: unspecified type Qualified Code(s): D64.9 - Anemia, unspecified (5) CVA (cerebral vascular accident) Code(s): I63.9 - CEREBRAL INFARCTION, UNSPECIFIED Qualifiers: CVA mechanism: unspecified Qualified Code(s): I63.9 - Cerebral infarction, unspecified (6) Clostridium difficile diarrhea Code(s): A04.72 - ENTEROCOLITIS D/T CLOSTRIDIUM DIFFICILE, NOT SPCF RECUR (7) Failure to thrive in adult Code(s): R62.7 - ADULT FAILURE TO THRIVE (8) HLD (hyperlipidemia) Code(s): E78.5 - HYPERLIPIDEMIA, UNSPECIFIED (9) HTN (hypertension) Code(s): I10 - ESSENTIAL (PRIMARY) HYPERTENSION (10) Lactic acidosis Code(s): E87.2 - ACIDOSIS (11) Seizure Code(s): R56.9 - UNSPECIFIED CONVULSIONS Assessment/Plan 67 y.o. female with PMH of HTN, HLD, CVA, dysphagia/peg, seizure d.o., treated recently for sepsis due to VRE/Clostridium bacteremia and C. difficile colitis presenting with AMS, hypotension, hypernatremia, fever, leukocytosis, elevated lactic acid. Hospital records/imaging/labs reviewed Severe Sepsis C. difficile Colitis Hypotension AMS Fever Leukocytosis NICOLÁS Lactic acidosis History of VRE/Clostridium bacteremia Seizure d.o. CVA plan stable off of abx continue current mgmt no issues nutrition
[2018-04-20] MEDS: HEPARIN NA (PORCINE) 5,000 UNITS/ML 1ML VIAL SQ SCH ×2 (11:39→22:54)
[2018-04-20] MEDS: ASPIRIN 81 MG CHEWABLE TABLETS PO SCH (11:39)
[2018-04-20] MEDS: SODIUM CHLORIDE 1,000 ML IV SCH (11:39)
[2018-04-20] MEDS: Lacosamide 50 MG/5 ML ORAL SOLUTION UNIT CUPS GT SCH ×2 (11:40→22:55)
[2018-04-20] MEDS: levETIRAcetam 500 MG/5 ML ORAL SOLUTION (UNIT-DOSE CUPS) GT SCH ×2 (11:50→22:57)
[2018-04-20] MEDS: VALPROATE SODIUM 250 MG/5 ML UNIT DOSE CUP PO SCH ×2 (11:51→22:56)
--- NOTE | 2018-04-20 12:19 | DS ---
Physical Examination Vital Signs: Vital Signs Temperature 99.0 F 04/20/18 05:55 Pulse Rate 86 04/20/18 05:55 Respiratory Rate 18 04/20/18 05:55 Blood Pressure 99/59 04/20/18 05:55 O2 Sat by Pulse Oximetry (%) 99 04/19/18 21:00 Constitutional: Yes: No Distress, Calm Cardiovascular: Yes: Regular Rate and Rhythm Respiratory: Yes: Diminished Gastrointestinal: Yes: Normal Bowel Sounds, Soft. No: Tenderness Edema: No Labs: CBC, BMP 04/19/18 05:30 04/19/18 05:30 Discharge Summary Reason For Visit: SEPSIS Current Active Problems Hypernatremia (Acute) Sepsis (Acute) Hospital Course: Admitted for sepsis, Cdiff+ Seen by ID Was initially on pressor support- but recovered with antibiotics She is better Does have soft stools cdiff checked here negative stable for dc to [facility] Condition: Fair - Instructions [facility]position[facility] - Home Medications Comprehensive Discharge Medication List: Ambulatory Orders Aspirin [ASA -] 81 mg PO DAILY 30 Days tab.chew 05/27/17 Acetaminophen 325 mg PO Q4H 09/22/17 Amino Acids/Protein Hydrolys [Prosource No Carb Liquid Pkt] 30 ml PO BID Enoxaparin [Lovenox -] 40 mg SQ DAILY 09/22/17 Metoprolol Tartrate 25 mg PO BID 09/22/17 Valproate Na [Depakene] 250 mg GT BID 09/22/17 Vit A/Vitamin D3/E/Aloe V/Zinc [Periguard Ointment] 5 gm TP DAILY 09/22/17 Atorvastatin Ca [Lipitor] 40 mg GT HS 12/11/17 Lacosamide Liquid [Vimpat Liquid -] 10 mg GT BID 12/11/17 Valproate Sodium Liquid [Depakene Oral Solution -] 1,250 mg GT BID 12/11/17 Zinc Oxide 20% Topical Oint 454 gm NR TID 12/11/17 levETIRAcetam [Keppra Oral Solution -] 500 mg GT BID 12/11/17 Albuterol 0.083% Nebulizer Hanane [Ventolin 0.083% Nebulizer Soln -] 1 amp NEB Q4H PRN amp 12/24/17 Chlorhexidine Gluconate [Hibiclens For Decolonization -] 1 applic TP HS bottle 12/24/17 metroNIDAZOLE [Flagyl -] 500 mg PEG TID #28 tablet 03/10/18
--- NOTE | 2018-04-20 13:43 | PN ---
Progress Note (short form) - Note Progress Note: Resting in NAD. Afebrile. No acute events overnight. OBJECTIVE: Intake & Output 04/17/18 04/18/18 04/19/18 04/20/18 23:59 23:59 23:59 23:59 Intake Total 2895 4495.7 4027 2119 Output Total 2500 2340 300 Balance 395 2155.7 3727 2119 Weight 143 lb 143 lb 8 oz 148 lb 1.6 oz 145 lb 5 oz Last Vital Signs Temp Pulse Resp BP Pulse Ox 98.7 F 88 20 106/66 99 04/20/18 09:00 04/20/18 09:00 04/20/18 09:00 04/20/18 09:00 04/19/18 21:00 Active Medications Acetaminophen (Ofirmev Injection -) 1,000 mg IVPB Q6H PRN PRN Reason: FEVER Albuterol Sulfate (Ventolin 0.083% Nebulizer Soln -) 1 amp NEB Q4H PRN PRN Reason: SHORT OF BREATH/WHEEZING Aspirin (Asa -) 81 mg PO DAILY [facility] Last Admin: 04/20/18 11:39 Dose: 81 mg Atorvastatin Calcium (Lipitor -) 40 mg GT HS [facility] Last Admin: 04/19/18 22:14 Dose: 40 mg Chlorhexidine Gluconate (Hibiclens For Decolonization -) 1 applic TP HS [facility] Last Admin: 04/19/18 22:20 Dose: Not Given Heparin Sodium (Porcine) (Heparin -) 5,000 unit SQ BID [facility] Last Admin: 04/20/18 11:39 Dose: 5,000 unit Sodium Chloride (Normal Saline -) 1,000 mls @ 125 mls/hr IV ASDIR [facility] Last Admin: 04/20/18 11:39 Dose: 125 mls/hr Lacosamide (Vimpat Liquid -) 10 mg GT BID [facility] Last Admin: 04/20/18 11:40 Dose: 10 mg Levetiracetam (Keppra Oral Solution -) 500 mg GT BID [facility] Last Admin: 04/20/18 11:50 Dose: 500 mg Midodrine (Proamatine -) 2.5 mg PO BID-MID PRN PRN Reason: MAP<65mm Hg OR SBP <90 Multi-Ingredient Ointment (Zinc Oxide) 1 applic TP TID [facility] Last Admin: 04/20/18 06:47 Dose: 1 applic Valproate Sodium (Depakene -) 1,250 mg PO BID [facility] Last Admin: 04/20/18 11:51 Dose: 1,250 mg Gen: NAD at rest Heart: RRR Lung: decreased breath sounds at the bases Abd: soft, nontender, (+) BS, (+) PEG Ext: no edema ASSESSMENT AND PLAN: Septic Shock resolving 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
--- NOTE | 2018-04-20 14:25 | PN ---
Progress Note (short form) - Note Progress Note: Renal follow up for NICOLÁS/Severe Hypernatremia Pt seen and examined at the bedside transferred to medical floor no overnight events on IVF making urine Vital Signs Temperature 98.7 F 04/20/18 09:00 Pulse Rate 88 04/20/18 09:00 Respiratory Rate 20 04/20/18 09:00 Blood Pressure 106/66 04/20/18 09:00 O2 Sat by Pulse Oximetry (%) 99 04/19/18 21:00 Intake & Output 04/17/18 04/18/18 04/19/18 04/20/18 23:59 23:59 23:59 23:59 Intake Total 2895 4495.7 4027 2119 Output Total 2500 2340 300 Balance 395 2155.7 3727 2119 Weight 64.864 kg 65.091 kg 67.177 kg 65.913 kg NAD CTA No LE edema bingham in place CBC, BMP 04/19/18 05:30 04/19/18 05:30 Current Medications Acetaminophen (Ofirmev Injection -) 1,000 mg IVPB Q6H PRN PRN Reason: FEVER Albuterol Sulfate (Ventolin 0.083% Nebulizer Soln -) 1 amp NEB Q4H PRN PRN Reason: SHORT OF BREATH/WHEEZING Aspirin (Asa -) 81 mg PO DAILY [facility] Last Admin: 04/20/18 11:39 Dose: 81 mg Atorvastatin Calcium (Lipitor -) 40 mg GT HS [facility] Last Admin: 04/19/18 22:14 Dose: 40 mg Chlorhexidine Gluconate (Hibiclens For Decolonization -) 1 applic TP HS [facility] Last Admin: 04/19/18 22:20 Dose: Not Given Heparin Sodium (Porcine) (Heparin -) 5,000 unit SQ BID [facility] Last Admin: 04/20/18 11:39 Dose: 5,000 unit Lacosamide (Vimpat Liquid -) 10 mg GT BID [facility] Last Admin: 04/20/18 11:40 Dose: 10 mg Levetiracetam (Keppra Oral Solution -) 500 mg GT BID [facility] Last Admin: 04/20/18 11:50 Dose: 500 mg Midodrine (Proamatine -) 2.5 mg PO BID-MID PRN PRN Reason: MAP<65mm Hg OR SBP <90 Multi-Ingredient Ointment (Zinc Oxide) 1 applic TP TID [facility] Last Admin: 04/20/18 14:11 Dose: 1 applic Valproate Sodium (Depakene -) 1,250 mg PO BID [facility] Last Admin: 04/20/18 11:51 Dose: 1,250 mg 67 year old woman with Hx of CVA, Hypertension, Anemia, Dysphagia, recent VRE/ Cdiff who presented with AMS/Fever and admitted for sepsis syndrome with NICOLÁS and hypernatremia. #Sepsis Syndrome #NICOLÁS in setting of sepsis/volume depletion #Hypernatremia (water deficit now 5.4 L ) #Anemia #Thrombocytopenia #Recent VRE/Cdiff #lactic acidosis Renal function improved and stable d/c IVF Fluid intake with tube feeds stable for discharge would repeat CMP as outpatient Thank you Constantino Clemons DO
[2018-04-20] MEDS ORDERED: MIDODRINE HCL 2.5 MG TABLET PO SCH (18:00)
[2018-04-20] MEDS: CHLORHEXIDINE GLUCONATE 4% CLEANSER FOR DECOLONIZATION TP SCH (22:54)
[2018-04-20] MEDS: ATORVASTATIN CA 40 MG TABLET (FP) GT SCH (22:55)
[2018-04-21] MEDS: ZINC OXIDE 20% TOPICAL OINTMENT 30 GM TUBE TP SCH ×2 (06:20→13:22)
--- NOTE | 2018-04-21 09:02 | PN ---
Progress Note, Physician History of Present Illness: stable had low bp no complaints says she is doing well - Current Medication List Current Medications: Active Medications Albuterol Sulfate (Ventolin 0.083% Nebulizer Soln -) 1 amp NEB Q4H PRN PRN Reason: SHORT OF BREATH/WHEEZING Aspirin (Asa -) 81 mg PO DAILY [facility] Last Admin: 04/20/18 11:39 Dose: 81 mg Atorvastatin Calcium (Lipitor -) 40 mg GT HS [facility] Last Admin: 04/20/18 22:55 Dose: 40 mg Chlorhexidine Gluconate (Hibiclens For Decolonization -) 1 applic TP HS [facility] Last Admin: 04/20/18 22:54 Dose: Not Given Heparin Sodium (Porcine) (Heparin -) 5,000 unit SQ BID [facility] Last Admin: 04/20/18 22:54 Dose: 5,000 unit Lacosamide (Vimpat Liquid -) 10 mg GT BID [facility] Last Admin: 04/20/18 22:55 Dose: 10 mg Levetiracetam (Keppra Oral Solution -) 500 mg GT BID [facility] Last Admin: 04/20/18 22:57 Dose: 500 mg Midodrine (Proamatine -) 5 mg PO TID-MID [facility] Multi-Ingredient Ointment (Zinc Oxide) 1 applic TP TID [facility] Last Admin: 04/21/18 06:20 Dose: 1 applic Valproate Sodium (Depakene -) 1,250 mg PO BID [facility] Last Admin: 04/20/18 22:56 Dose: 1,250 mg - Objective Vital Signs: Vital Signs Temperature 98.4 F 04/21/18 08:58 Pulse Rate 77 04/21/18 08:58 Respiratory Rate 20 04/21/18 08:58 Blood Pressure 102/66 04/21/18 08:58 O2 Sat by Pulse Oximetry (%) 96 04/20/18 21:00 Constitutional: Yes: No Distress, Calm Cardiovascular: Yes: Regular Rate and Rhythm Respiratory: Yes: Regular, CTA Bilaterally Gastrointestinal: Yes: Normal Bowel Sounds, Soft, Other (peg in place) Musculoskeletal: Yes: WNL Neurological: Yes: Alert, Oriented Psychiatric: Yes: Alert Labs: CBC, BMP 04/19/18 05:30 04/19/18 05:30 INR, PTT INR 1.28 (0.83-1.09) H 04/12/18 07:45 Assessment/Plan Problem List - Problems (1) Hypernatremia Code(s): E87.0 - HYPEROSMOLALITY AND HYPERNATREMIA (2) Sepsis Code(s): A41.9 - SEPSIS, UNSPECIFIED ORGANISM Qualifiers: Sepsis type: sepsis due to unspecified organism Qualified Code(s): A41.9 - Sepsis, unspecified organism (3) NICOLÁS (acute kidney injury) Code(s): N17.9 - ACUTE KIDNEY FAILURE, UNSPECIFIED (4) Anemia Code(s): D64.9 - ANEMIA, UNSPECIFIED Qualifiers: Anemia type: unspecified type Qualified Code(s): D64.9 - Anemia, unspecified (5) CVA (cerebral vascular accident) Code(s): I63.9 - CEREBRAL INFARCTION, UNSPECIFIED Qualifiers: CVA mechanism: unspecified Qualified Code(s): I63.9 - Cerebral infarction, unspecified (6) Clostridium difficile diarrhea Code(s): A04.72 - ENTEROCOLITIS D/T CLOSTRIDIUM DIFFICILE, NOT SPCF RECUR (7) Failure to thrive in adult Code(s): R62.7 - ADULT FAILURE TO THRIVE (8) HLD (hyperlipidemia) Code(s): E78.5 - HYPERLIPIDEMIA, UNSPECIFIED (9) HTN (hypertension) Code(s): I10 - ESSENTIAL (PRIMARY) HYPERTENSION (10) Lactic acidosis Code(s): E87.2 - ACIDOSIS (11) Seizure Code(s): R56.9 - UNSPECIFIED CONVULSIONS Assessment/Plan 67 y.o. female with PMH of HTN, HLD, CVA, dysphagia/peg, seizure d.o., treated recently for sepsis due to VRE/Clostridium bacteremia and C. difficile colitis presenting with AMS, hypotension, hypernatremia, fever, leukocytosis, elevated lactic acid. Hospital records/imaging/labs reviewed Severe Sepsis C. difficile Colitis Hypotension AMS Fever Leukocytosis NICOLÁS Lactic acidosis History of VRE/Clostridium bacteremia Seizure d.o. CVA plan stable off of abx continue current mgmt no issues nutrition monitor bp
[2018-04-21] MEDS: HEPARIN NA (PORCINE) 5,000 UNITS/ML 1ML VIAL SQ SCH (10:19)
[2018-04-21] MEDS: VALPROATE SODIUM 250 MG/5 ML UNIT DOSE CUP PO SCH (10:20)
[2018-04-21] MEDS: ASPIRIN 81 MG CHEWABLE TABLETS PO SCH (10:20)
[2018-04-21] MEDS: MIDODRINE HCL 5 MG TABLET PO SCH ×2 (10:21→13:22)
[2018-04-21] MEDS: levETIRAcetam 500 MG/5 ML ORAL SOLUTION (UNIT-DOSE CUPS) GT SCH (10:21)
[2018-04-21] MEDS: Lacosamide 50 MG/5 ML ORAL SOLUTION UNIT CUPS GT SCH (10:21)
--- NOTE | 2018-04-21 10:44 | PN ---
Progress Note (short form) - Note Progress Note: pt seen/ examined chart reviewed discharge was held yesterday due to hypotension. better today Midodrine increased comfortable denies pain Vital Signs Temp 98.4 F 04/21/18 08:58 Pulse 77 04/21/18 08:58 Resp 20 04/21/18 08:58 BP 102/66 04/21/18 08:58 Pulse Ox 96 04/20/18 21:00 Intake & Output 04/20/18 04/20/18 04/21/18 11:59 23:59 11:59 Intake Total 2119 300 1144 Balance 2119 300 1144 Weight 145 lb 5 oz 145 lb 14.4 oz Intake: IV 1375 300 Normal Saline - 1,000 ml 1375 300 @ 125 mls/hr IV ASDIR [facility] Rx#:[id number] IVPB 100 Oral 0 Tube Feeding 504 504 Tube Irrigant 240 540 Other: Voiding Method Incontinent Incontinent # Unmeasured Voids Void 2 3 Bowel Movement Yes: large No Yes # Bowel Movements 1 2 Weight Measurement [facility] Active Medications Albuterol Sulfate (Ventolin 0.083% Nebulizer Soln -) 1 amp NEB Q4H PRN PRN Reason: SHORT OF BREATH/WHEEZING Aspirin (Asa -) 81 mg PO DAILY [facility] Last Admin: 04/21/18 10:20 Dose: 81 mg Atorvastatin Calcium (Lipitor -) 40 mg GT HS [facility] Last Admin: 04/20/18 22:55 Dose: 40 mg Chlorhexidine Gluconate (Hibiclens For Decolonization -) 1 applic TP HS [facility] Last Admin: 04/20/18 22:54 Dose: Not Given Heparin Sodium (Porcine) (Heparin -) 5,000 unit SQ BID [facility] Last Admin: 04/21/18 10:19 Dose: 5,000 unit Lacosamide (Vimpat Liquid -) 10 mg GT BID [facility] Last Admin: 04/21/18 10:21 Dose: 10 mg Levetiracetam (Keppra Oral Solution -) 500 mg GT BID [facility] Last Admin: 04/21/18 10:21 Dose: 500 mg Midodrine (Proamatine -) 5 mg PO TID-MID [facility] Last Admin: 04/21/18 10:21 Dose: 5 mg Multi-Ingredient Ointment (Zinc Oxide) 1 applic TP TID [facility] Last Admin: 04/21/18 06:20 Dose: 1 applic Valproate Sodium (Depakene -) 1,250 mg PO BID [facility] Last Admin: 04/21/18 10:20 Dose: 1,250 mg CBC, BMP 04/19/18 05:30 04/19/18 05:30 Physical S1 S2 RRR Lungs decreased breath sounds B/L Abd- soft, NT, ND, BS+ No edema PLAN stable discussed with Dr. Clemons also' stable for d/c see deatiled /dc summary as of yesterday Problem List - Problems (1) Hypernatremia Code(s): E87.0 - HYPEROSMOLALITY AND HYPERNATREMIA (2) Sepsis Code(s): A41.9 - SEPSIS, UNSPECIFIED ORGANISM Qualifiers: Sepsis type: sepsis due to unspecified organism Qualified Code(s): A41.9 - Sepsis, unspecified organism (3) NICOLÁS (acute kidney injury) Code(s): N17.9 - ACUTE KIDNEY FAILURE, UNSPECIFIED (4) Anemia Code(s): D64.9 - ANEMIA, UNSPECIFIED Qualifiers: Anemia type: unspecified type Qualified Code(s): D64.9 - Anemia, unspecified Problem List - Problems (1) Hypernatremia Code(s): E87.0 - HYPEROSMOLALITY AND HYPERNATREMIA (2) Sepsis Code(s): A41.9 - SEPSIS, UNSPECIFIED ORGANISM Qualifiers: Sepsis type: sepsis due to unspecified organism Qualified Code(s): A41.9 - Sepsis, unspecified organism (3) NICOLÁS (acute kidney injury) Code(s): N17.9 - ACUTE KIDNEY FAILURE, UNSPECIFIED (4) Anemia Code(s): D64.9 - ANEMIA, UNSPECIFIED Qualifiers: Anemia type: unspecified type Qualified Code(s): D64.9 - Anemia, unspecified
--- NOTE | 2018-04-21 11:16 | PN ---
Progress Note (short form) - Note Progress Note: Renal follow up for NICOLÁS/Severe Hypernatremia Pt seen and examined at the bedside no acute complaints BP improved s/p midodrine 5mg TID making urine tolerating tube feeds and free water Vital Signs Temperature 98.4 F 04/21/18 08:58 Pulse Rate 77 04/21/18 08:58 Respiratory Rate 20 04/21/18 08:58 Blood Pressure 102/66 04/21/18 08:58 O2 Sat by Pulse Oximetry (%) 96 04/20/18 21:00 Intake & Output 04/18/18 04/19/18 04/20/18 04/21/18 23:59 23:59 23:59 23:59 Intake Total 4495.7 4027 2419 1144 Output Total 2340 300 Balance 2155.7 3727 2419 1144 Weight 65.091 kg 67.177 kg 65.913 kg 66.179 kg NAD CTA No LE edema bingham in place CBC, BMP 04/19/18 05:30 04/19/18 05:30 Current Medications Albuterol Sulfate (Ventolin 0.083% Nebulizer Soln -) 1 amp NEB Q4H PRN PRN Reason: SHORT OF BREATH/WHEEZING Aspirin (Asa -) 81 mg PO DAILY [facility] Last Admin: 04/21/18 10:20 Dose: 81 mg Atorvastatin Calcium (Lipitor -) 40 mg GT HS [facility] Last Admin: 04/20/18 22:55 Dose: 40 mg Chlorhexidine Gluconate (Hibiclens For Decolonization -) 1 applic TP HS [facility] Last Admin: 04/20/18 22:54 Dose: Not Given Heparin Sodium (Porcine) (Heparin -) 5,000 unit SQ BID [facility] Last Admin: 04/21/18 10:19 Dose: 5,000 unit Lacosamide (Vimpat Liquid -) 10 mg GT BID [facility] Last Admin: 04/21/18 10:21 Dose: 10 mg Levetiracetam (Keppra Oral Solution -) 500 mg GT BID [facility] Last Admin: 04/21/18 10:21 Dose: 500 mg Midodrine (Proamatine -) 5 mg PO TID-MID [facility] Last Admin: 04/21/18 10:21 Dose: 5 mg Multi-Ingredient Ointment (Zinc Oxide) 1 applic TP TID [facility] Last Admin: 04/21/18 06:20 Dose: 1 applic Valproate Sodium (Depakene -) 1,250 mg PO BID [facility] Last Admin: 04/21/18 10:20 Dose: 1,250 mg 67 year old woman with Hx of CVA, Hypertension, Anemia, Dysphagia, recent VRE/ Cdiff who presented with AMS/Fever and admitted for sepsis syndrome with NICOLÁS and hypernatremia. #Sepsis Syndrome #NICOLÁS in setting of sepsis/volume depletion #Hypernatremia (water deficit now 5.4 L ) #Anemia #Thrombocytopenia #Recent VRE/Cdiff #lactic acidosis Renal function stable BP is now improved on midodrine 5mg TID continue free water with tube feeds stable for discharge Thank you Constantino Clemons DO
[2018-04-21 11:50] VITALS: BMI 23.3
[2018-04-21 13:22] VITALS: TEMP 98.3
[2018-04-21 16:05] VITALS: BP 97/59; PULSE 64
== END 2018-04-21 15:33 | DRG 720 ==
LOC: JER 07:33 → JERBED 10:13 → JICU 12:57 → J6S 04-19 15:48
PROVIDERS: ADMIT Internal Medicine; ATTEND Internal Medicine
PROC: 05HM33Z Insertion of Infusion Device into Right Internal Jugular Vein, Percutaneous Approach (ICD-10-PCS; principal; 2018-04-12)
PROC: B513ZZA Fluoroscopy of Right Jugular Veins, Guidance (ICD-10-PCS; 2018-04-12)
DX: A41.9 Sepsis, unspecified organism (principal); R65.21 Severe sepsis with septic shock; E87.0 Hyperosmolality and hypernatremia; N17.9 Acute kidney failure, unspecified; A04.72 Enterocolitis due to Clostridium difficile, not specified as recurrent; E87.2 Acidosis; R56.9 Unspecified convulsions; I95.9 Hypotension, unspecified; D69.6 Thrombocytopenia, unspecified; R62.7 Adult failure to thrive; Z93.1 Gastrostomy status; R13.19 Other dysphagia; I69.391 Dysphagia following cerebral infarction; F03.90 Unspecified dementia, unspecified severity, without behavioral disturbance, psychotic disturbance, mood disturbance, and anxiety; I10 Essential (primary) hypertension; K21.9 Gastro-esophageal reflux disease without esophagitis; D64.9 Anemia, unspecified; J45.909 Unspecified asthma, uncomplicated; K59.00 Constipation, unspecified; E78.5 Hyperlipidemia, unspecified; E86.0 Dehydration; E86.9 Volume depletion, unspecified
CPT/HCPCS: 36415; 36600; 71045-TC-FY; 80048; 80053; 80164; 81003; 81015; 82040; 82533; 82550; 82803; 83605; 83735; 84100; 84484; 85025; 85610; 85730; 87040; 87045; 87046; 87086; 87177; 87205; 87209; 87324; 87449; 93005; 93010; 94640; 99285-25; J0131; J0878; J1644; J7030

== ENCOUNTER 2018-06-13 15:38 | Emergency (ER) | payer SELFPAY ==
--- NOTE | 2018-06-13 15:49 | PDOC ---
History of Present Illness - General Stated Complaint: PEG REPLACEMENT - History of Present Illness Initial Comments: Joe Isidro is a 67yo woman with a PMH of CVA, STEMI, failure to thrive s/p g-tube placement, anemia, seizure disorder, MDD, MODS, HTN, HLD, and chronic respiratory failure who presents from [facility] after her bingham was accidentally removed earlier today. Ms Isidro was unable to provide much additional information, stating only that she has had the g-tube for a long time ( responded "yes" when asked) and that it had been out for "days." A call was placed to [facility], and nursing staff reported that Ms Isidro' g- tube was pulled out earlier today. A bingham catheter was placed to keep the tract open, but the facility does not have g-tubes available so she was sent to the ED for tube replacement. There are no other concerns or new symptoms at this time. Past History - Past Medical History Allergies/Adverse Reactions: Allergies Allergy/AdvReac Type Severity Reaction Status Date / Time No Known Allergies Allergy Verified 04/12/18 07:50 Home Medications: Ambulatory Orders Aspirin [ASA -] 81 mg PO DAILY 30 Days tab.chew 05/27/17 Acetaminophen 325 mg PO Q4H 09/22/17 Amino Acids/Protein Hydrolys [Prosource No Carb Liquid Pkt] 30 ml PO BID Enoxaparin [Lovenox -] 40 mg SQ DAILY 09/22/17 Vit A/Vitamin D3/E/Aloe V/Zinc [Periguard Ointment] 5 gm TP DAILY 09/22/17 Atorvastatin Ca [Lipitor] 40 mg GT HS 12/11/17 Lacosamide Liquid [Vimpat Liquid -] 10 mg GT BID 12/11/17 Valproate Sodium Liquid [Depakene Oral Solution -] 1,250 mg GT BID 12/11/17 Zinc Oxide 20% Topical Oint 454 gm NR TID 12/11/17 levETIRAcetam [Keppra Oral Solution -] 500 mg GT BID 12/11/17 Albuterol 0.083% Nebulizer Hanane [Ventolin 0.083% Nebulizer Soln -] 1 amp NEB Q4H PRN amp 12/24/17 Midodrine HCl [Proamatine -] 2.5 mg PO BID-MID PRN #30 tablet 04/20/18 Valproate Sodium [Depakene -] 1,250 mg PO BID #60 cup 04/20/18 Midodrine HCl [Proamatine -] 5 mg PO TID-MID #0 tablet 04/21/18 Anemia: No Asthma: Yes Cancer: No Cardiac Disorders: No CVA: Yes COPD: No CHF: No Dementia: Yes Diabetes: No GI Disorders: Yes (constipation, peg tube) Disorders: Yes (UTI) HTN: Yes Hypercholesterolemia: Yes Liver Disease: No Psychiatric Problems: Yes (depressive disorders) Seizures: Yes Thyroid Disease: No Lung CA: Yes (depression,) - Surgical History Abdominal Surgery: No Appendectomy: No Cardiac Surgery: No Cholecystectomy: No GI Surgery: Yes (gtube insertion) Lung Surgery: No Neurologic Surgery: No Orthopedic Surgery: No - Suicide/Smoking/Psychosocial Hx Smoking History: Unknown if ever smoked Have you smoked in the past 12 months: No Hx Alcohol Use: No Drug/Substance Use Hx: No Substance Use Type: None Hx Substance Use Treatment: No (unknown) Review of Systems - Review of Systems Able to Perform ROS?: No (Patient unable to provide) *Physical Exam - Physical Exam Comments: General: Comfortable, no acute distress HEENT: PERRL, EOMI, dry mouth/lips, poor dentition Cards: RRR Pulm: Comfortable on room air Abd: Soft, nontender, nondistended. Bingham catheter in g-tube tract. No surrounding erythema or edema, no drainage, tube moves freely. Ext: Atraumatic. No LE edema. Vasc: Extremities WWP. Neuro: Awake, alert, responsive. CN grossly intact. Continued tremors, especially in L hand. Psych: Mood appropriate to situation Medical Decision Making - Medical Decision Making 06/13/18 16:37 Joe Isidro is a 67yo woman with multiple chronic medical conditions who presents from [facility] after her g-tube was accidentally removed earlier today. It was replaced with a bingham catheter at the facility prior to transfer to the ED. - Bingham easily removed. 16F g-tube placed at bedside into open tract. No complications - Abdominal xray ordered to confirm placement - If placed correctly, will most likely discharge back to [facility] 06/13/18 18:38 - Spoke to Dr Gunderson, radiology, via phone. G-tube is placed correctly - Discharge back to [facility]. Seen and discussed with Dr Stone and Dr Monroy. Glenda Watts PGY1 *DC/Admit/Observation/Transfer Diagnosis at time of Disposition: Dislodged gastrostomy tube - Discharge Dispostion Disposition: HOME Condition at time of disposition: Stable Decision to Admit order: No - Referrals Referrals: Radha Arana MD [Primary Care Provider] - - Patient Instructions Additional Instructions: Discharge Instructions: - You were seen in the ED for an accidentally removed G-tube. The tube was replaced without any difficulty in the ED. - You should be able to use the tube for regular feeding and medication - Please see your primary physician within the next 2-3 days for follow up - Seek medical attention if you have any swelling, redness, or drainage around the tube. Go to the nearest emergency room if you have any medical emergency. - Post Discharge Activity
[2018-06-13 16:08] VITALS: BMI 21.6
--- NOTE | 2018-06-13 16:23 | PDOC ---
Attending Attestation - Resident Resident Name: Glenda Watts - ED Attending Attestation I have performed the following: I have examined & evaluated the patient, The case was reviewed & discussed with the resident, I agree w/resident's findings & plan - HPI HPI: 06/13/18 16:21 67y/o F from [facility] for replacement of dislodged feeding tube, replaced with bingham at [place]. no other complaints, no v/d/f/c/abd pain. - Physicial Exam PE: 06/13/18 16:22 afebrile alert soft/nt/nd bs nl bingham in place, removed and g-tube place without difficulty - Medical Decision Making 06/13/18 16:23 67y/o F with dislodged g-tube, s/p replacement axr confirmation d/c back to [facility]
[2018-06-13 20:07] VITALS: BP 120/82; PULSE 82; TEMP 98.2
== END 2018-06-13 20:09 | disposition home or self-care (01) ==
LOC: JER 15:38
PROC: 0D20XUZ Change Feeding Device in Upper Intestinal Tract, External Approach (ICD-10-PCS; principal; 2018-06-13)
DX: Z53.1 Procedure and treatment not carried out because of patient's decision for reasons of belief and group pressure (principal); I25.10 Atherosclerotic heart disease of native coronary artery without angina pectoris; I10 Essential (primary) hypertension; I25.2 Old myocardial infarction; E78.5 Hyperlipidemia, unspecified; R62.7 Adult failure to thrive; D64.9 Anemia, unspecified; G40.909 Epilepsy, unspecified, not intractable, without status epilepticus; Z86.73 Personal history of transient ischemic attack (TIA), and cerebral infarction without residual deficits; F33.9 Major depressive disorder, recurrent, unspecified; Z87.440 Personal history of urinary (tract) infections
CPT/HCPCS: 74018-TC-FY; 99282-25

== ENCOUNTER 2018-11-06 17:42 | Inpatient (IN) | payer SELFPAY ==
--- NOTE | 2018-11-06 18:40 | PDOC ---
History of Present Illness - General History Source: Patient Exam Limitations: Clinical Condition - History of Present Illness Initial Comments: History is limited bc patient is non-verbal 67 year old female with a PMHx of hypertension, hyperlipidemia, seizure disorder , epilepsy, GERD, frequent UTIs, sepsis, anemia, TIAs dysphagia with peg tube and CVA, who was BIBA from [facility] presenting with subjective fever, elevated blood pressure, altered mental status, and suspected SEPSIS. [facility] stated that they noted she had a fever and "things were off" PCP: Lyndon Akbar PSH: PEG tube placement Social Hx: [facility] resident Allergies: NKA, NKDA <Neno Jeffries - Last Filed: 11/07/18 00:19> <Anjali Cisneros - Last Filed: 11/07/18 01:13> - General Chief Complaint: SIRS, Suspected/Possible Stated Complaint: FEVER Time Seen by Provider: 11/06/18 18:39 Past History - Past Medical History Anemia: No Asthma: Yes Cancer: No Cardiac Disorders: No CVA: Yes COPD: No CHF: No Dementia: Yes Diabetes: No GI Disorders: Yes (constipation, peg tube) Disorders: Yes (UTI) HTN: Yes Hypercholesterolemia: Yes Liver Disease: No Psychiatric Problems: Yes (depressive disorders) Seizures: Yes Thyroid Disease: No Lung CA: Yes (depression,) - Surgical History Abdominal Surgery: No Appendectomy: No Cardiac Surgery: No Cholecystectomy: No GI Surgery: Yes (gtube insertion) Lung Surgery: No Neurologic Surgery: No Orthopedic Surgery: No - Suicide/Smoking/Psychosocial Hx Smoking History: Never smoked Have you smoked in the past 12 months: No Information on smoking cessation initiated: No Hx Alcohol Use: No Drug/Substance Use Hx: No Substance Use Type: None Hx Substance Use Treatment: No (unknown) <Neno Jeffries - Last Filed: 11/07/18 00:19> <Anjali Cisneros - Last Filed: 11/07/18 01:13> - Past Medical History Allergies/Adverse Reactions: Allergies Allergy/AdvReac Type Severity Reaction Status Date / Time No Known Allergies Allergy Verified 11/06/18 18:03 Home Medications: Ambulatory Orders Acetaminophen 325 mg GT Q4H PRN 09/22/17 Atorvastatin Ca [Lipitor] 40 mg GT HS 12/11/17 Zinc Oxide 20% Topical Oint 454 gm NR TID 12/11/17 levETIRAcetam [Keppra Oral Solution -] 500 mg GT BID 12/11/17 Albuterol 0.083% Nebulizer Hanane [Ventolin 0.083% Nebulizer Soln -] 1 amp NEB Q4H PRN amp 12/24/17 Amantadine HCl [Amantadine] 100 mg GT DAILY 11/06/18 Ascorbic Acid [Vitamin C] 500 mg GT DAILY 11/06/18 Aspirin [ASA -] 81 mg GT DAILY 11/06/18 Carbidopa/Levodopa [Carbidopa-Levodopa 25-250 Tab] 1 each GT TID 11/06/18 Chlorhexidine Gluconate 15 ml TT HS 11/06/18 Folic Acid 1 mg GT DAILY 11/06/18 Furosemide 20 mg GT DAILY 11/06/18 Lacosamide [Vimpat] 200 mg GT BID 11/06/18 Lactobacillus Acidophilus [Bacid -] 1 each GT TID 11/06/18 Magnesium Oxide 400 mg GT BID 11/06/18 Midodrine HCl [Proamatine -] 5 mg GT TID-MID 11/06/18 Mirtazapine 7.5 mg GT DAILY 11/06/18 Oxcarbazepine 300 mg GT TID 11/06/18 Ranitidine HCl [Zantac] 150 mg GT DAILY 11/06/18 Silver Sulfadiazine [Silvadene] 1 applic TP BID 11/06/18 Valproic Acid [Depakene] 1,250 mg GT BID 11/06/18 Review of Systems - Review of Systems Able to Perform ROS?: No (non-verbal) <Neno Jeffries - Last Filed: 11/07/18 00:19> *Physical Exam - Vital Signs Last Vital Signs Temp Pulse Resp BP Pulse Ox 102.4 F H 99 H 16 135/92 95 11/06/18 18:30 11/06/18 18:30 11/06/18 18:30 11/06/18 18:30 11/06/18 18:30 - Physical Exam Comments: GENERAL: Non-verbal. Feels warm. HEENT: Normocephalic, atraumatic. PERRL. CARDIOVASCULAR: Normal S1, S2. tachycardic rate and regular rhythm. PULMONARY: No evidence of respiratory distress. Lungs clear to auscultation bilaterally. No wheezing, rales or rhonchi. ABDOMEN: G-tube in place no erythema surrounding it. Soft, non-distended, non-tender. EXTREMITIES: Limited ROM in all four extremities. No gross deformities. There is a bandage around the right wrist. SKIN: Warm, dry. No rash NEUROLOGICAL: No focal neurological deficits. <Neno Jeffries - Last Filed: 11/07/18 00:19> - Vital Signs Last Vital Signs Temp Pulse Resp BP Pulse Ox 102.4 F H 76 20 130/82 99 11/06/18 18:30 11/06/18 22:03 11/06/18 22:03 11/06/18 22:03 11/06/18 22:03 <Anjali Cisneros - Last Filed: 11/07/18 01:13> Procedures - Lumbar Puncture Indication: AMS CT Scan: Yes Betadine Prep: No (chloraprep) Position: Left lateral decubitus Site: L3-L4 Volume(ml): 1 (lidocaine 1% without epi) Lumbar Puncture Kit: Adult Needle Size(gauge): 20 Complications: Dry Tap Progress: LP was significantly limited by patient's body habitus- difficulty with flexing her legs due to atrophy and muscle spasticity. Attempted x2, unsuccessful. Patient tolerated well, minimal blood loss. <Anjali Cisneros - Last Filed: 11/07/18 01:13> ED Treatment Course - LABORATORY CBC & Chemistry Diagram: 11/06/18 19:00 11/06/18 19:00 <Neno Jeffries - Last Filed: 11/07/18 00:19> - LABORATORY CBC & Chemistry Diagram: 11/06/18 19:00 11/06/18 19:00 - ADDITIONAL ORDERS Additional order review: Laboratory Results 11/06/18 11/06/18 11/06/18 21:20 19:00 19:00 PT with INR INR PTT (Actin FS) Sodium Potassium Chloride Carbon Dioxide Anion Gap BUN Creatinine Creat Clearance w eGFR Random Glucose Lactic Acid 2.0 Calcium Total Bilirubin AST ALT Alkaline Phosphatase Troponin I < 0.02 Total Protein Albumin Urine Color Urine Appearance Urine pH Ur Specific [place] Urine Protein Urine Glucose (UA) Urine Ketones Urine Blood Urine Nitrite Urine Bilirubin Urine Urobilinogen Ur Leukocyte Esterase Blood Type A POSITIVE Antibody Screen Negative 11/06/18 11/06/1811/06/19 19:00 19:00 19:00 PT with INR 13.60 H INR 1.15 H PTT (Actin FS) 31.9 Sodium 155 H Potassium 4.4 Chloride 115 H Carbon Dioxide 34 H Anion Gap 6 L BUN 35 H Creatinine 0.8 Creat Clearance w eGFR 71.99 Random Glucose 94 Lactic Acid 3.5 H* Calcium 9.0 Total Bilirubin 0.2 AST 52 H ALT 27 Alkaline Phosphatase 175 H Troponin I Total Protein 8.2 Albumin 2.8 L Urine Color Urine Appearance Urine pH Ur Specific [place] Urine Protein Urine Glucose (UA) Urine Ketones Urine Blood Urine Nitrite Urine Bilirubin Urine Urobilinogen Ur Leukocyte Esterase Blood Type Antibody Screen 11/06/18 18:57 PT with INR INR PTT (Actin FS) Sodium Potassium Chloride Carbon Dioxide Anion Gap BUN Creatinine Creat Clearance w eGFR Random Glucose Lactic Acid Calcium Total Bilirubin AST ALT Alkaline Phosphatase Troponin I Total Protein Albumin Urine Color Yellow Urine Appearance Clear Urine pH 6.0 Ur Specific [place] 1.021 Urine Protein Negative Urine Glucose (UA) Negative Urine Ketones Negative Urine Blood Negative Urine Nitrite Negative Urine Bilirubin Negative Urine Urobilinogen 0.2 Ur Leukocyte Esterase Negative Blood Type Antibody Screen 11/06/18 19:00 RBC 4.02 MCV 94.3 MCHC 32.7 RDW 16.4 H MPV 9.9 Neutrophils % 45.5 Lymphocytes % 44.5 H Monocytes % 8.0 Eosinophils % 0.8 Basophils % 1.2 D - Medications Given in the ED: ED Medications Discontinued Medications Generic Name Dose Route Start Last Admin Trade Name Freq PRN Reason Stop Dose Admin Acetaminophen 1,000 mg 11/06/18 20:13 11/06/18 20:19 Ofirmev Injection - IVPB 11/06/18 20:14 1,000 mg ONCE ONE Administration Sodium Chloride 1,897 mls @ 948.5 mls/hr 11/06/18 18:44 11/06/18 20:13 Normal Saline - 30 ml/kg infuse over 2 hr (1897 ml) 11/06/18 20:43 948.5 mls/hr IV Administration ONCE ONE Vancomycin HCl 1,000 mg/ 250 mls @ 166.667 mls/hr 11/06/18 19:50 11/06/18 20: 50 Dextrose IVPB 11/06/18 21:19 166.667 mls/hr ONCE ONE Administration Protocol Piperacillin Sod/Tazobactam 100 mls @ 200 mls/hr 11/06/18 19:50 11/06/18 20: 29 Sod 4.5 gm/ Dextrose IVPB 11/06/18 20:19 200 mls/hr ONCE ONE Administration Protocol Levetiracetam 500 mg 11/06/18 21:35 11/06/18 22:05 Keppra Injection - IVPB 11/06/18 21:36 500 mg ONCE ONE Administration Lorazepam 0.5 mg 11/06/18 22:51 11/06/18 23:05 Ativan Injection - IVPUSH 11/06/18 22:52 0.5 mg ONCE ONE Administration Valproate Sodium 1,250 mg 11/06/18 23:00 11/06/18 23:02 Depakene - PO 11/06/18 23:01 1,250 mg ONCE ONE Administration <Anjali Cisneros - Last Filed: 11/07/18 01:13> Medical Decision Making - Medical Decision Making 67 year old female with a PMHx of hypertension, hyperlipidemia, seizure disorder , epilepsy, GERD, frequent UTIs, sepsis, anemia, TIAs dysphagia with peg tube and CVA, who was BIBA from [facility] presenting with subjective fever, elevated blood pressure, altered mental status, and suspected SEPSIS. [facility] stated that they noted she had a fever and "things were off" VS: Tachycardic, febrile - Likely septic DDx IBNLT: Sepsis, PNA, UTI, catheter related infection, cellulitis. Plan: ED adult sepsis workup, probable admit, empiric Abx. CBC unremarkable Lactic acid originally elevated to 35. - Repeat lactic normalized to 2.0 CMP Sodium 155 mmol/L (136-145) H 11/06/18 19:00 Potassium 4.4 mmol/L (3.5-5.1) 11/06/18 19:00 Chloride 115 mmol/L (98-107) H 11/06/18 19:00 Carbon Dioxide 34 mmol/L (21-32) H 11/06/18 19:00 Anion Gap 6 MMOL/L (8-16) L 11/06/18 19:00 BUN 35 mg/dL (7-18) H 11/06/18 19:00 Creatinine 0.8 mg/dL (0.55-1.3) 11/06/18 19:00 Creat Clearance w eGFR 71.99 (>60) 11/06/18 19:00 Random Glucose 94 mg/dL (74-106) 11/06/18 19:00 Lactic Acid 2.0 mmol/L (0.4-2.0) 11/06/18 21:20 Calcium 9.0 mg/dL (8.5-10.1) 11/06/18 19:00 Total Bilirubin 0.2 mg/dL (0.2-1) 11/06/18 19:00 AST 52 U/L (15-37) H 11/06/18 19:00 ALT 27 U/L (13-61) 11/06/18 19:00 Alkaline Phosphatase 175 U/L (45-117) H 11/06/18 19:00 Troponin I < 0.02 ng/ml (0.00-0.05) 11/06/18 19:00 Total Protein 8.2 g/dl (6.4-8.2) 11/06/18 19:00 Albumin 2.8 g/dl (3.4-5.0) L 11/06/18 19:00 Urine clean - Flu negative - Head CT negative. - LP attempted without success. Will treat empirically with meningitic coverage. - Cannot figure out the source of this patient's fever - Will admit for sepsis and fever without a source. The patient has a small sacral decubitus ulcer but it is small, erythematous, and not likely the source of this patient's illness. - Will admit the patient to hospitalist for further care and management. - Patient accepted to Dr. Bal's service. <Neno Jeffries - Last Filed: 11/07/18 00:19> *DC/Admit/Observation/Transfer - Discharge Dispostion Decision to Admit order: Yes <Neno Jeffries - Last Filed: 11/07/18 00:19> <Anjali Cisneros - Last Filed: 11/07/18 01:13> Diagnosis at time of Disposition: Fever, unknown origin, Sepsis - Discharge Dispostion Condition at time of disposition: Stable
[2018-11-06] MEDS ORDERED: SODIUM CHLORIDE IV ONE (18:44)
[2018-11-06 19:36] LABS: BASO % 1.2 % (0-2.0); EOS % 0.8 % (0-4.5); HEMATOCRIT 37.9 % (32.4-45.2); HEMOGLOBIN 12.4 GM/dL (10.7-15.3); LYMPH % 44.5 % (8-40); MCH 30.8 pg (25.7-33.7); MCHC 32.7 g/dl (32.0-36.0); MEAN CELL VOLUME 94.3 fl (80-96); MEAN PLT VOLUME 9.9 fl (7.5-11.1); NEUT % 45.5 % (42.8-82.8); PLATELET COUNT 177 K/MM3 (134-434); RBC 4.02 M/mm3 (3.60-5.2); RDW 16.4 % (11.6-15.6); WHITE BLOOD COUNT 7.8 K/mm3 (4.0-10.0)
[2018-11-06 19:49] LABS: INR 1.15 (0.83-1.09); PROTHROMBIN TIME (PATIENT) 13.6 SEC (9.7-13.0)
[2018-11-06] MEDS ORDERED: PIPERACILLIN/TAZOB 4.5 GM 4.5 GM in DEXTROSE 5%-WATER 100 ML IVPB ONE (19:50)
[2018-11-06] MEDS ORDERED: VANCOMYCIN 1,000 MG in DEXTROSE 5%-WATER - 250 ML IVPB ONE (19:50)
[2018-11-06 19:52] LABS: ACTIVATED PTT 31.9 SECONDS (25.2-36.5)
[2018-11-06 20:00] LABS: ALBUMIN 2.8 g/dl (3.4-5.0); ALK PHOS 175 U/L (45-117); ANION GAP 6 MMOL/L (8-16); BILIRUBIN,TOTAL 0.2 mg/dL (0.2-1); BLOOD UREA NITROGEN 35 mg/dL (7-18); CHLORIDE 115 mmol/L (98-107); CO2 34 mmol/L (21-32); CREATININE 0.8 mg/dL (0.55-1.3); GLUCOSE,RANDOM 94 mg/dL (74-106); POTASSIUM 4.4 mmol/L (3.5-5.1); SGOT/AST 52 U/L (15-37); SGPT/ALT 27 U/L (13-61); SODIUM 155 mmol/L (136-145); TOT PROT 8.2 g/dl (6.4-8.2)
[2018-11-06] MEDS ORDERED: ACETAMINOPHEN 1000 MG/100 ML VIAL (NON FORMULARY) IVPB ONE (20:13)
[2018-11-06] MEDS ORDERED: ACETAMINOPHEN INJECTION 100 ML IVPB ONE (20:14)
[2018-11-06] MEDS ORDERED: PIPERACILLIN/TAZOB 4.5 GM 4.5 GM/100 ML BAG IVPB ONE (20:20)
[2018-11-06] MEDS ORDERED: VANCOMYCIN 1 GRAM (PRE-DOCKED) 1,000 MG/250 ML BAG IVPB ONE (20:20)
--- NOTE | 2018-11-06 20:22 | PDOC ---
Attending Attestation - HPI HPI: 11/06/18 20:25 The patient is a 67 year old female with a past medical history of HTN, HLD, seizure disorder, epilepsy, GERD, frequent UTIs, sepsis, anemia, TIAs dysphagia with peg tube and CVA brought in today by EMS from [facility] for evaluation of fever and suspected sepsis. The patient is nonverbal and was not able to provide a history. Allergies: NKA PCP: Lyndon Akbar <Matty Guzman - Last Filed: 11/06/18 20:25> - Resident Resident Name: Neno Jeffries - ED Attending Attestation I have performed the following: I have examined & evaluated the patient, The case was reviewed & discussed with the resident, I agree w/resident's findings & plan, Exceptions are as noted - Physicial Exam PE: GENERAL: Awake, nonverbal, in no acute distress HEAD: No signs of trauma EYES: PERRLA, EOMI, sclera anicteric, conjunctiva clear ENT: Auricles normal inspection, hearing grossly normal, nares patent, oropharynx clear without exudates. Dry mucosa NECK: Normal ROM, supple, no lymphadenopathy, JVD, or masses LUNGS: Breath sounds equal, clear to auscultation bilaterally. No wheezes, and no crackles HEART: Regular rate and rhythm, normal S1 and S2, no murmurs, rubs or gallops ABDOMEN: Soft, nontender, normoactive bowel sounds. No guarding, no rebound. No masses EXTREMITIES: Limited ROM of extremities- +atrophy and contractures. NEUROLOGICAL: Limited by ability to cooperate. SKIN: Warm, Dry, normal turgor. Small sacral decub, skin intact (appears to be healing). - Medical Decision Making Pt presents with fever, unknown source. UA negative, CXR no signs of infection. Will check flu swab. If all negative, will do an LP. <Anjali Cisneros - Last Filed: 11/06/18 22:16> Attestations - Attestations 11/06/18 20:26 Documentation prepared by JOHN Brian, acting as medical technician assistant for Anjali Cisneros MD. <Matty Guzman - Last Filed: 11/06/18 20:25>
[2018-11-06 20:27] LABS: URINE APPEARANCE CLEAR; URINE BILIRUBIN NEGATIVE (NEGATIVE); URINE COLOR YELLOW; URINE GLUCOSE (UA) NEGATIVE (NEGATIVE); URINE KETONE NEGATIVE (NEGATIVE); URINE LEUK ESTERASE NEGATIVE (NEGATIVE); URINE NITRITE NEGATIVE (NEGATIVE); URINE PROTEIN NEGATIVE (NEGATIVE); URINE UROBILINOGEN 0.2 mg/dL (0.2-1.0)
[2018-11-06] MEDS ORDERED: levETIRAcetam 500 MG/5 ML INJECTION VIAL IVPB ONE ×2 (21:35→21:40)
[2018-11-06] MEDS ORDERED: VALPROATE SODIUM 250 MG/5 ML UNIT DOSE CUP PO SCH (21:45)
[2018-11-06] MEDS ORDERED: VALPROATE SODIUM 250 MG/5 ML UNIT DOSE CUP PO ONE (23:00)
[2018-11-06] MEDS ORDERED: LORazepam 2 MG/ML SDV VIAL ONE (23:03)
[2018-11-07] MEDS ORDERED: CEFTRIAXONE 1,000 MG in DEXTROSE 5%-WATER - 50 ML IVPB ONE (00:13)
[2018-11-07] MEDS ORDERED: ALBUTEROL SO4 0.083% IH SOL 2.5 MG/3 ML VIAL.NEB. NEB PRN (01:07)
--- NOTE | 2018-11-07 01:39 | HP ---
CHIEF COMPLAINT: here from a from shelter with fever PCP:Dr. Akbar HISTORY OF PRESENT ILLNESS: This is a 67 year old female with past medical history of hypertension, hyperlipidemia, seizure disorder, epilepsy, GERD, frequent UTIs, sepsis, anemia , dysphagia with peg tube and TIA's/CVA who was BIBA from [facility] presenting with fever, elevated blood pressures, and an altered mental status.Upon evaluation in the ER she was found to have a fever of 102.4. She has a normal WBC and an elevated lactic acid level of 3.5. Urinalysis, influena and CXR were normal. Lumbar puncture was attempted in the the ER but reported was difficult to do due to difficulty positioning patient. Fever etiology is currently unknown. She was given one dosage of IV Vacomycin, pippercillin and ceftriaxone. She is being admitted for further medical management. Recent Travel:unable to obtain PAST MEDICAL HISTORY:as above PAST SURGICAL HISTORY: peg placement Social History: unable to obtain Family History:unable to obtain Allergies No Known Allergies Allergy (Verified 11/06/18 18:03) HOME MEDICATIONS: Home Medications Medication Instructions Recorded Acetaminophen 325 mg GT Q4H PRN 09/22/17 Atorvastatin Ca [Lipitor] 40 mg GT HS 12/11/17 Zinc Oxide 20% Topical Oint 454 gm NR TID 12/11/17 levETIRAcetam [Keppra Oral 500 mg GT BID 12/11/17 Solution -] Albuterol 0.083% Nebulizer Hanane 1 amp NEB Q4H PRN amp 12/24/17 [Ventolin 0.083% Nebulizer Soln -] Amantadine HCl [Amantadine] 100 mg GT DAILY 11/06/18 Ascorbic Acid [Vitamin C] 500 mg GT DAILY 11/06/18 Aspirin [ASA -] 81 mg GT DAILY 11/06/18 Carbidopa/Levodopa 1 each GT TID 11/06/18 [Carbidopa-Levodopa 25-250 Tab] Chlorhexidine Gluconate 15 ml TT HS 11/06/18 Folic Acid 1 mg GT DAILY 11/06/18 Furosemide 20 mg GT DAILY 11/06/18 Lacosamide [Vimpat] 200 mg GT BID 11/06/18 Lactobacillus Acidophilus [Bacid -] 1 each GT TID 11/06/18 Magnesium Oxide 400 mg GT BID 11/06/18 Midodrine HCl [Proamatine -] 5 mg GT TID-MID 11/06/18 Mirtazapine 7.5 mg GT DAILY 11/06/18 Oxcarbazepine 300 mg GT TID 11/06/18 Ranitidine HCl [Zantac] 150 mg GT DAILY 11/06/18 Silver Sulfadiazine [Silvadene] 1 applic TP BID 11/06/18 Valproic Acid [Depakene] 1,250 mg GT BID 11/06/18 REVIEW OF SYSTEMS Unable to obtain ROS due to patient mental and nonverbal status CONSTITUTIONAL: Absent: fever, chills, diaphoresis, generalized weakness, malaise, loss of appetite, weight change HEENT: Absent: rhinorrhea, nasal congestion, throat pain, throat swelling, difficulty swallowing, mouth swelling, ear pain, eye pain, visual changes CARDIOVASCULAR: Absent: chest pain, syncope, palpitations, irregular heart rate, lightheadedness , peripheral edema RESPIRATORY: Absent: cough, shortness of breath, dyspnea with exertion, orthopnea, wheezing, stridor, hemoptysis GASTROINTESTINAL: Absent: abdominal pain, abdominal distension, nausea, vomiting, diarrhea, constipation, melena, hematochezia GENITOURINARY: Absent: dysuria, frequency, urgency, hesitancy, hematuria, flank pain, genital pain MUSCULOSKELETAL: Absent: myalgia, arthralgia, joint swelling, back pain, neck pain SKIN: Absent: rash, itching, pallor HEMATOLOGIC/IMMUNOLOGIC: Absent: easy bleeding, easy bruising, lymphadenopathy, frequent infections ENDOCRINE: Absent: unexplained weight gain, unexplained weight loss, heat intolerance, cold intolerance NEUROLOGIC: Absent: headache, focal weakness or paresthesias, dizziness, unsteady gait, seizure, mental status changes, bladder or bowel incontinence PSYCHIATRIC: Absent: anxiety, depression, suicidal or homicidal ideation, hallucinations. PHYSICAL EXAMINATION Vital Signs - 24 hr 11/06/18 11/06/18 11/06/18 17:45 18:30 22:03 Temperature 97.1 F L 102.4 F H Pulse Rate 116 H Pulse Rate [ 99 H 76 Apical] Respiratory 18 16 20 Rate Blood Pressure 124/84 Blood Pressure 135/92 130/82 [Arm] O2 Sat by Pulse 100 95 99 Oximetry (%) GENERAL: awake does not follow commands EYES: pupils equal, round EARS, NOSE, THROAT: ears normal, nares patent, oropharynx clear without exudate NECK: limited range of motion LUNGS: breath sounds equal, clear to auscultation bilaterally. no wheezes no crackles no accessory muscle use. HEART: regular rate and rhythm, normal S1 and S2 present and tachycardic ABDOMEN: soft, nontender, not distended, normoactive bowel sounds, +PEG UPPER EXTREMITIES: 2+ pulses no peripheral edema. LOWER EXTREMITIES: 2+ pulses, warm, well-perfused no pitting edema PSYCHIATRIC: calm SKIN:no rashes or lesions noted Laboratory Results - last 24 hr 11/06/18 11/06/18 11/06/18 18:57 19:00 19:00 WBC 7.8 RBC 4.02 Hgb 12.4 Hct 37.9 D MCV 94.3 MCH 30.8 MCHC 32.7 RDW 16.4 H Plt Count 177 D MPV 9.9 Absolute Neuts (auto) 3.5 Neutrophils % 45.5 Lymphocytes % 44.5 H Monocytes % 8.0 Eosinophils % 0.8 Basophils % 1.2 D Nucleated RBC % 0 PT with INR 13.60 H INR 1.15 H PTT (Actin FS) 31.9 Sodium Potassium Chloride Carbon Dioxide Anion Gap BUN Creatinine Creat Clearance w eGFR Random Glucose Lactic Acid Calcium Total Bilirubin AST ALT Alkaline Phosphatase Troponin I Total Protein Albumin Urine Color Yellow Urine Appearance Clear Urine pH 6.0 Ur Specific [place] 1.021 Urine Protein Negative Urine Glucose (UA) Negative Urine Ketones Negative Urine Blood Negative Urine Nitrite Negative Urine Bilirubin Negative Urine Urobilinogen 0.2 Ur Leukocyte Esterase Negative Influenza A (Rapid) Influenza B (Rapid) Blood Type Antibody Screen 11/06/18 11/06/18 11/06/18 19:00 19:00 19:00 WBC RBC Hgb Hct MCV MCH MCHC RDW Plt Count MPV Absolute Neuts (auto) Neutrophils % Lymphocytes % Monocytes % Eosinophils % Basophils % Nucleated RBC % PT with INR INR PTT (Actin FS) Sodium 155 H Potassium 4.4 Chloride 115 H Carbon Dioxide 34 H Anion Gap 6 L BUN 35 H Creatinine 0.8 Creat Clearance w eGFR 71.99 Random Glucose 94 Lactic Acid 3.5 H* Calcium 9.0 Total Bilirubin 0.2 AST 52 H ALT 27 Alkaline Phosphatase 175 H Troponin I Total Protein 8.2 Albumin 2.8 L Urine Color Urine Appearance Urine pH Ur Specific [place] Urine Protein Urine Glucose (UA) Urine Ketones Urine Blood Urine Nitrite Urine Bilirubin Urine Urobilinogen Ur Leukocyte Esterase Influenza A (Rapid) Influenza B (Rapid) Blood Type A POSITIVE Antibody Screen Negative 11/06/18 11/06/18 11/06/18 19:00 21:20 21:55 WBC RBC Hgb Hct MCV MCH MCHC RDW Plt Count MPV Absolute Neuts (auto) Neutrophils % Lymphocytes % Monocytes % Eosinophils % Basophils % Nucleated RBC % PT with INR INR PTT (Actin FS) Sodium Potassium Chloride Carbon Dioxide Anion Gap BUN Creatinine Creat Clearance w eGFR Random Glucose Lactic Acid 2.0 Calcium Total Bilirubin AST ALT Alkaline Phosphatase Troponin I < 0.02 Total Protein Albumin Urine Color Urine Appearance Urine pH Ur Specific [place] Urine Protein Urine Glucose (UA) Urine Ketones Urine Blood Urine Nitrite Urine Bilirubin Urine Urobilinogen Ur Leukocyte Esterase Influenza A (Rapid) Negative Influenza B (Rapid) Negative Blood Type Antibody Screen ASSESSMENT/PLAN: 67 year old female with past medical history of hypertension, hyperlipidemia, seizure disorder, epilepsy, GERD, frequent UTIs, sepsis, anemia, dysphagia with peg tube and TIA's/CVA presented from a shelter with fever of unknown etiology, elevated blood pressures, and an altered mental status. Fever of Unknown Etiology WBC normal, lactic acid elevated. Influena, UA, and CXR are unremarkable. PEG site with no evidence of erthema or purulence. She has a sacral ulcer present. She received one dosage of IV vancomycin, pippercillin and ceftriaxone.Currently afebrile. Continue with IV zosyn 2.25mg every 8 hours. ID- Dr. Myers consulted. Patient has a scaral decubiti. Wound Care- Dr. Hernandez consulted. Hypernatremia Continue with IV Fluids at 75cc/hr. Repeat BMP in am. Seizure Continue with Keppra, valproic acid and amantadine. Hyperlipidemia Continue with statin therapy. Anemia Stable. Hypertension Normotensive. Patient is on midodrine. Albuminemia Patient has a PEG. Consulted training instructor. FEN IV fluids NS at 75cc/hr. Continue to monitor electrolytes closely. DVT Prophylaxis Continue with lovenox 30mg once daily. Visit type - Emergency Visit Emergency Visit: Yes ED Registration Date: 11/07/18 Care time: The patient presented to the Emergency Department on the above date and was hospitalized for further evaluation of their emergent condition. - New Patient This patient is new to me today: Yes Date on this admission: 11/07/18 - Critical Care Critical Care patient: No
[2018-11-07] MEDS ORDERED: PIPERACILLIN/TAZOB 2.25 GM 2.25 GM/50 ML BAG IVPB ONE (01:49)
[2018-11-07] MEDS ORDERED: CEFTRIAXONE 1 GM/50 ML BAG ONE (01:50)
[2018-11-07] MEDS ORDERED: PIPERACILLIN/TAZOB 2.25 GM 2.25 GM in DEXTROSE 5%-WATER - 50 ML IVPB SCH (02:00)
[2018-11-07] MEDS ORDERED: SODIUM CHLORIDE 1,000 ML IV SCH (02:15)
[2018-11-07] MEDS: SODIUM CHLORIDE 1,000 ML IV SCH ×2 (02:24→17:54)
[2018-11-07] MEDS: PIPERACILLIN/TAZOB 2.25 GM 2.25 GM in DEXTROSE 5%-WATER - 50 ML IVPB SCH ×2 (04:37→11:29)
[2018-11-07] MEDS ORDERED: ZINC OXIDE 20% TOPICAL OINTMENT 454 GM JAR TP SCH (06:00)
[2018-11-07] MEDS: CARBIDOPA/LEVODOPA 25/250 TABLET (FP) GT SCH ×3 (07:15→23:05)
[2018-11-07] MEDS: LACTOBACILLUS ACIDOPHILUS 1 TABLET GT SCH ×3 (07:15→22:33)
[2018-11-07] MEDS: OXcarbazepine 300 MG/5 ML 250 ML BULK BOTTLE PO SCH ×3 (07:15→23:08)
[2018-11-07 07:20] LABS: HEMATOCRIT 32.4 % (32.4-45.2); HEMOGLOBIN 11.5 GM/dL (10.7-15.3); MCH 35.3 pg (25.7-33.7); MCHC 35.7 g/dl (32.0-36.0); MEAN CELL VOLUME 98.9 fl (80-96); MEAN PLT VOLUME 9.9 fl (7.5-11.1); PLATELET COUNT 161 K/MM3 (134-434); RBC 3.27 M/mm3 (3.60-5.2); RDW 16.1 % (11.6-15.6); WHITE BLOOD COUNT 7.8 K/mm3 (4.0-10.0)
[2018-11-07 07:40] LABS: ANION GAP 6 MMOL/L (8-16); BLOOD UREA NITROGEN 28 mg/dL (7-18); CALCIUM 8.7 mg/dL (8.5-10.1); CHLORIDE 114 mmol/L (98-107); CO2 30 mmol/L (21-32); CREATININE 0.7 mg/dL (0.55-1.3); GLUCOSE,RANDOM 84 mg/dL (74-106); POTASSIUM 3.6 mmol/L (3.5-5.1); SODIUM 150 mmol/L (136-145)
--- NOTE | 2018-11-07 09:12 | CONSULT ---
- Consultation REQUESTING PROVIDER: CONSULT REQUEST: We have been asked to surgically evaluate this patient for sacral wound. PCP:Lyndon Akbar HISTORY OF PRESENT ILLNESS:NESS: The patient is a 67 yo female who was brought in from [facility] for mental status changes and a fever. While in the ER she was treated with IV abx abd a fever workup was completed. Her T max was 102. Surgery was called to evaluate a sacral wound. PMHx: HTN, seizure disorder, epilepsy, Gerd, frequent UTIs, stroke with right sided weakness. PSHx: PEG tube Home Medications Medication Instructions Recorded Acetaminophen 325 mg GT Q4H PRN 09/22/17 Atorvastatin Ca [Lipitor] 40 mg GT HS 12/11/17 Zinc Oxide 20% Topical Oint 454 gm NR TID 12/11/17 levETIRAcetam [Keppra Oral 500 mg GT BID 12/11/17 Solution -] Albuterol 0.083% Nebulizer Hanane 1 amp NEB Q4H PRN amp 12/24/17 [Ventolin 0.083% Nebulizer Soln -] Amantadine HCl [Amantadine] 100 mg GT DAILY 11/06/18 Ascorbic Acid [Vitamin C] 500 mg GT DAILY 11/06/18 Aspirin [ASA -] 81 mg GT DAILY 11/06/18 Carbidopa/Levodopa 1 each GT TID 11/06/18 [Carbidopa-Levodopa 25-250 Tab] Chlorhexidine Gluconate 15 ml TT HS 11/06/18 Folic Acid 1 mg GT DAILY 11/06/18 Furosemide 20 mg GT DAILY 11/06/18 Lacosamide [Vimpat] 200 mg GT BID 11/06/18 Lactobacillus Acidophilus [Bacid -] 1 each GT TID 11/06/18 Magnesium Oxide 400 mg GT BID 11/06/18 Midodrine HCl [Proamatine -] 5 mg GT TID-MID 11/06/18 Mirtazapine 7.5 mg GT DAILY 11/06/18 Oxcarbazepine 300 mg GT TID 11/06/18 Ranitidine HCl [Zantac] 150 mg GT DAILY 11/06/18 Silver Sulfadiazine [Silvadene] 1 applic TP BID 11/06/18 Valproic Acid [Depakene] 1,250 mg GT BID 11/06/18 Allergies Allergy/AdvReac Type Severity Reaction Status Date / Time No Known Allergies Allergy Verified 11/06/18 18:03 REVIEW OF SYSTEMS: unable to obtain a complete ROS, pt with altered mental status. CONSTITUTIONAL: Present: fever PHYSICAL EXAM: GENERAL: Awake, alert, and fully oriented, in no acute distress. HEAD: Normal with no signs of trauma. LUNGS: Clear to auscultation bilat anteriorly. No wheezes, and no crackles. No accessory muscle use. HEART: Regular rate and rhythm. ABDOMEN: Soft, nontender, G tube in place. LOWER EXTREMITIES: 2+ pulses, warm, well-perfused. No calf tenderness. No peripheral edema. Right lateral mallelous with stage 2 ulcer, clean pink base with evidence of healing. No necrotic tissue. no erythema, swelling or bone exposed. Superficial lesion size 2 x 0.5 cm. Sacrum: 1.5x 1 cm stage 2 ulcer, clean pink base with evidence of healing. No erythema, bogginess or purulent drainage noted. SKIN: back with no lesions, bandaid from attempted lumbar lesion. Vital Signs Temperature 102.4 F H 11/06/18 18:30 Pulse Rate 71 11/07/18 07:15 Respiratory Rate 18 11/07/18 07:15 Blood Pressure 106/74 11/07/18 07:15 O2 Sat by Pulse Oximetry (%) 100 11/07/18 07:15 Lab Results WBC 7.8 K/mm3 (4.0-10.0) 11/07/18 06:20 RBC 3.27 M/mm3 (3.60-5.2) L 11/07/18 06:20 Hgb 11.5 GM/dL (10.7-15.3) 11/07/18 06:20 Hct 32.4 % (32.4-45.2) 11/07/18 06:20 MCV 98.9 fl (80-96) H 11/07/18 06:20 MCHC 35.7 g/dl (32.0-36.0) 11/07/18 06:20 RDW 16.1 % (11.6-15.6) H 11/07/18 06:20 Plt Count 161 K/MM3 (134-434) 11/07/18 06:20 Sodium 150 mmol/L (136-145) H 11/07/18 06:20 Potassium 3.6 mmol/L (3.5-5.1) 11/07/18 06:20 Chloride 114 mmol/L (98-107) H 11/07/18 06:20 Carbon Dioxide 30 mmol/L (21-32) 11/07/18 06:20 Anion Gap 6 MMOL/L (8-16) L 11/07/18 06:20 BUN 28 mg/dL (7-18) H 11/07/18 06:20 Creatinine 0.7 mg/dL (0.55-1.3) 11/07/18 06:20 Random Glucose 84 mg/dL (74-106) 11/07/18 06:20 Calcium 8.7 mg/dL (8.5-10.1) 11/07/18 06:20 Blood Type A POSITIVE 11/06/18 19:00 Antibody Screen Negative 11/06/18 19:00 INR 1.15 (0.83-1.09) H 11/06/18 19:00 Microbiology Laboratory Tests 11/06/18 11/06/18 18:57 21:55 Urine Color Yellow Urine Appearance Clear Urine pH 6.0 Ur Specific [place] 1.021 Urine Protein Negative Urine Glucose (UA) Negative Urine Ketones Negative Urine Blood Negative Urine Nitrite Negative Urine Bilirubin Negative Urine Urobilinogen 0.2 Ur Leukocyte Esterase Negative Influenza A (Rapid) Negative Influenza B (Rapid) Negative Problem List - Problems (1) Fever, unknown origin Assessment/Plan: No evidence of infection to sacral wound. It appears to be superficial skin break down. No surgical intervention needed. -Reposition every two hours while in bed -Air mattress recommended -Use drawsheets and Trendelenburg when repositioning to reduce friction and shear -Manage incontinence via timely cleansing, use of appropriate incontinence disposables and use of barrier ointment to intact skin -Ensure adequate hydration/nutrition, supplementation per primary team -Ensure off-loading to all bony areas (heels, ankles, hips and tailbone) with Allevyn/Optifoam -Alleyven ordered to sacrum and right lateral mallelous Dr. Hernandez and he agrees with the following plan Code(s): R50.9 - FEVER, UNSPECIFIED
--- NOTE | 2018-11-07 10:02 | PN ---
Progress Note (short form) - Note Progress Note: drowsy known to me from [facility] recently completed Ceftriaxone IV in [place] for fever- she was previously on Levaquin prior to that Work up was negative-- influenza screen negative no diarrhea blood cultures were drawn and urine cultures were done there -- no results yet ! Vital Signs - 24 hr 11/06/18 11/06/18 11/06/18 17:45 18:30 22:03 Temperature 97.1 F L 102.4 F H Pulse Rate 116 H Pulse Rate [ 99 H 76 Apical] Respiratory 18 16 20 Rate Blood Pressure 124/84 Blood Pressure 135/92 130/82 [Arm] Blood Pressure [Left Arm] O2 Sat by Pulse 100 95 99 Oximetry (%) 11/07/18 07:15 Temperature Pulse Rate Pulse Rate [ 71 Apical] Respiratory 18 Rate Blood Pressure Blood Pressure [Arm] Blood Pressure 106/74 [Left Arm] O2 Sat by Pulse 100 Oximetry (%) Current Medications Generic Name Dose Route Start Last Admin Trade Name Freq PRN Reason Stop Dose Admin Acetaminophen 650 mg 11/07/18 10:02 Tylenol Oral Solution - GT Q4H PRN MODERATE PAIN Albuterol Sulfate 1 amp 11/07/18 01:07 Ventolin 0.083% Nebulizer Soln - NEB Q4H PRN SHORT OF BREATH/WHEEZING Amantadine HCl 100 mg 11/07/18 10:00 Symmetrel - NR DAILY CLEMENTE Ascorbic Acid 500 mg 11/07/18 10:00 Vitamin C Oral Solution - GT DAILY CLEMENTE Aspirin 81 mg 11/07/18 10:00 Asa - GT DAILY CLEMENTE Atorvastatin Calcium 40 mg 11/07/18 22:00 Lipitor - GT HS CLEMENTE Carbidopa/Levodopa 1 each 11/07/18 06:00 11/07/18 07:15 Sinemet 25/250 - GT 1 each TID CLEMENTE Administration Chlorhexidine Gluconate 15 ml 11/07/18 22:00 Peridex - MM HS CLEMENTE Enoxaparin Sodium 30 mg 11/07/18 10:00 Lovenox - SQ DAILY CLEMENTE Folic Acid 1 mg 11/07/18 10:00 Folic Acid - GT DAILY CLEMENTE Furosemide 20 mg 11/07/18 10:00 Lasix - GT DAILY CLEMENTE Sodium Chloride 1,000 mls @ 75 mls/hr 11/07/18 01:15 11/07/18 02:24 Normal Saline - IV 75 mls/hr ASDIR CLEMENTE Administration Piperacillin Sod/Tazobactam 50 mls @ 100 mls/hr 11/07/18 02:00 Sod 2.25 gm/ Dextrose IVPB Q8H-IV CLEMENTE Protocol Piperacillin Sod/Tazobactam 50 mls @ 100 mls/hr 11/07/18 02:00 11/07/18 04:37 Sod 2.25 gm/ Dextrose IVPB 11/07/18 18:29 100 mls/hr Q8H-IV CLEMENTE Administration Protocol Lacosamide 200 mg 11/07/18 10:00 Vimpat Liquid - GT BID CLMEENTE Lactobacillus Acidophilus 1 tab 11/07/18 06:00 11/07/18 07:15 Bacid - GT 1 tab TID CLEMENTE Administration Levetiracetam 500 mg 11/07/18 10:00 Keppra Oral Solution - GT BID CLEMENTE Magnesium Oxide 400 mg 11/07/18 10:00 Mag-Ox - GT BID CLEMENTE Midodrine 5 mg 11/07/18 10:00 Proamatine - GT TID-MID CLEMENTE Mirtazapine 7.5 mg 11/07/18 22:00 Remeron - GT HS [facility] Multi-Ingredient Ointment 1 applic 11/07/18 08:39 Zinc Oxide TP TID CLEMENTE Oxcarbazepine 300 mg 11/07/18 06:00 11/07/18 07:15 Trileptal PO 300 mg TID CLEMENTE Administration Ranitidine HCl 150 mg 11/07/18 10:00 Zantac Oral Solution - PO DAILY CLEMENTE Silver Sulfadiazine 1 applic 11/07/18 10:00 Silvadene - TP BID [facility] Laboratory Results - last 24 hr 11/06/18 11/06/18 11/06/18 18:57 19:00 19:00 WBC 7.8 RBC 4.02 Hgb 12.4 Hct 37.9 D MCV 94.3 MCH 30.8 MCHC 32.7 RDW 16.4 H Plt Count 177 D MPV 9.9 Absolute Neuts (auto) 3.5 Neutrophils % 45.5 Lymphocytes % 44.5 H Monocytes % 8.0 Eosinophils % 0.8 Basophils % 1.2 D Nucleated RBC % 0 PT with INR 13.60 H INR 1.15 H PTT (Actin FS) 31.9 Sodium Potassium Chloride Carbon Dioxide Anion Gap BUN Creatinine Creat Clearance w eGFR Random Glucose Lactic Acid Calcium Magnesium Total Bilirubin AST ALT Alkaline Phosphatase Troponin I Total Protein Albumin Urine Color Yellow Urine Appearance Clear Urine pH 6.0 Ur Specific [place] 1.021 Urine Protein Negative Urine Glucose (UA) Negative Urine Ketones Negative Urine Blood Negative Urine Nitrite Negative Urine Bilirubin Negative Urine Urobilinogen 0.2 Ur Leukocyte Esterase Negative Influenza A (Rapid) Influenza B (Rapid) Blood Type Antibody Screen 11/06/18 11/06/18 11/06/18 19:00 19:00 19:00 WBC RBC Hgb Hct MCV MCH MCHC RDW Plt Count MPV Absolute Neuts (auto) Neutrophils % Lymphocytes % Monocytes % Eosinophils % Basophils % Nucleated RBC % PT with INR INR PTT (Actin FS) Sodium 155 H Potassium 4.4 Chloride 115 H Carbon Dioxide 34 H Anion Gap 6 L BUN 35 H Creatinine 0.8 Creat Clearance w eGFR 71.99 Random Glucose 94 Lactic Acid 3.5 H* Calcium 9.0 Magnesium Total Bilirubin 0.2 AST 52 H ALT 27 Alkaline Phosphatase 175 H Troponin I Total Protein 8.2 Albumin 2.8 L Urine Color Urine Appearance Urine pH Ur Specific [place] Urine Protein Urine Glucose (UA) Urine Ketones Urine Blood Urine Nitrite Urine Bilirubin Urine Urobilinogen Ur Leukocyte Esterase Influenza A (Rapid) Influenza B (Rapid) Blood Type A POSITIVE Antibody Screen Negative 11/06/18 11/06/18 11/06/18 19:00 21:20 21:55 WBC RBC Hgb Hct MCV MCH MCHC RDW Plt Count MPV Absolute Neuts (auto) Neutrophils % Lymphocytes % Monocytes % Eosinophils % Basophils % Nucleated RBC % PT with INR INR PTT (Actin FS) Sodium Potassium Chloride Carbon Dioxide Anion Gap BUN Creatinine Creat Clearance w eGFR Random Glucose Lactic Acid 2.0 Calcium Magnesium Total Bilirubin AST ALT Alkaline Phosphatase Troponin I < 0.02 Total Protein Albumin Urine Color Urine Appearance Urine pH Ur Specific [place] Urine Protein Urine Glucose (UA) Urine Ketones Urine Blood Urine Nitrite Urine Bilirubin Urine Urobilinogen Ur Leukocyte Esterase Influenza A (Rapid) Negative Influenza B (Rapid) Negative Blood Type Antibody Screen 11/07/18 11/07/18 06:20 06:20 WBC 7.8 RBC 3.27 L Hgb 11.5 Hct 32.4 MCV 98.9 H MCH 35.3 H D MCHC 35.7 RDW 16.1 H Plt Count 161 MPV 9.9 Absolute Neuts (auto) Neutrophils % Lymphocytes % Monocytes % Eosinophils % Basophils % Nucleated RBC % PT with INR INR PTT (Actin FS) Sodium 150 H Potassium 3.6 Chloride 114 H Carbon Dioxide 30 Anion Gap 6 L BUN 28 H Creatinine 0.7 Creat Clearance w eGFR 83.98 Random Glucose 84 Lactic Acid Calcium 8.7 Magnesium 2.0 Total Bilirubin AST ALT Alkaline Phosphatase Troponin I Total Protein Albumin Urine Color Urine Appearance Urine pH Ur Specific [place] Urine Protein Urine Glucose (UA) Urine Ketones Urine Blood Urine Nitrite Urine Bilirubin Urine Urobilinogen Ur Leukocyte Esterase Influenza A (Rapid) Influenza B (Rapid) Blood Type Antibody Screen S1 S2 RRR\ Lungs decreased Abd- soft, GT+, ND No edema PLAN Fever-- unknown source-- ?aspiration no diarrhea CXR -- negative Restart GT feeds aspiration precautions LP attempted in ER--- pt was not able to get it done received antibiotics in ER ID eval pending Problem List - Problems (1) Fever, unknown origin Code(s): R50.9 - FEVER, UNSPECIFIED (2) Sepsis Code(s): A41.9 - SEPSIS, UNSPECIFIED ORGANISM (3) CVA (cerebral vascular accident) Code(s): I63.9 - CEREBRAL INFARCTION, UNSPECIFIED Qualifiers: CVA mechanism: unspecified Qualified Code(s): I63.9 - Cerebral infarction, unspecified
[2018-11-07] MEDS: FUROSEMIDE 20 MG TABLET (FP) GT SCH (10:30)
[2018-11-07] MEDS: RANITIDINE HCL 150 MG/10 ML UNIT-DOSE PO SCH (10:30)
[2018-11-07] MEDS: ASCORBIC ACID 500 MG/5 ML UNIT DOSE CUP GT SCH (10:30)
[2018-11-07] MEDS: ENOXAPARIN NA (PORCINE) 30 MG/0.3 ML DISP.SYRIN SQ SCH (10:30)
[2018-11-07] MEDS: MAGNESIUM OXIDE 400 MG TABLET (FP) GT SCH ×2 (10:30→22:33)
[2018-11-07] MEDS: levETIRAcetam 500 MG/5 ML ORAL SOLUTION (UNIT-DOSE CUPS) GT SCH ×2 (10:30→23:06)
[2018-11-07] MEDS: MIDODRINE HCL 5 MG TABLET GT SCH ×2 (10:30→17:36)
[2018-11-07] MEDS: FOLIC ACID 1 MG TABLET (FP) GT SCH (10:30)
[2018-11-07] MEDS: ASPIRIN 81 MG CHEWABLE TABLETS GT SCH (10:30)
[2018-11-07] MEDS: AMANTADINE HCL 100 MG TABLET NR SCH (10:30)
[2018-11-07] MEDS: Lacosamide 50 MG/5 ML ORAL SOLUTION UNIT CUPS GT SCH ×2 (14:15→23:11)
--- NOTE | 2018-11-07 14:26 | EKG ---
Test Reason : Blood Pressure : / mmHG Vent. Rate : 098 BPM Atrial Rate : 098 BPM P-R Int : 142 ms QRS Dur : 072 ms QT Int : 326 ms P-R-T Axes : 072 -80 058 degrees QTc Int : 416 ms NORMAL SINUS RHYTHM LEFT AXIS DEVIATION POSSIBLE LATERAL INFARCT , AGE UNDETERMINED INFERIOR INFARCT (CITED ON OR BEFORE 13-APR-2018) ABNORMAL ECG WHEN COMPARED WITH ECG OF 13-APR-2018 00:18, SIGNIFICANT CHANGES HAVE OCCURRED Confirmed by MD Kellie, Jefferson ([id number]) on 11/07/2018 2:26:31 PM Referred By: Confirmed By:Jefferson Hopkins MD
[2018-11-07] MEDS: SILVER SULFADIAZINE 1% TOP CREAM 50 GM JAR TP SCH (14:30)
--- NOTE | 2018-11-07 16:06 | CON.ID ---
Consult Consult Specialty:: infectious diseases Referred by:: Hospitalist Reason for Consultation:: amd fever r/o meningitis - History of Present Illness Chief Complaint: ams History of Present Illness: 67 year old female with past medical history of hypertension, hyperlipidemia, seizure disorder, epilepsy, GERD, frequent UTIs, sepsis, anemia, dysphagia with peg tube and TIA's/CVA who was BIBA from [facility] presenting with fever, elevated blood pressures, and an altered mental status.Upon evaluation in the ER she was found to have a fever of 102.4. She has a normal WBC and an elevated lactic acid level of 3.5. Urinalysis, influena and CXR were normal. Lumbar puncture was attempted in the the ER but reported was difficult to do due to difficulty positioning patient. Fever etiology is currently unknown. She was given one dosage of IV Vacomycin, pippercillin and ceftriaxone. She is being admitted for further medical management. the above was the history on admission currently patient is doing a little better,is more awake,in no distress and movement of the neck produces no pain - History Source History Provided By: Medical Record Limitations to Obtaining History: Clinical Condition - Past Medical History [employer]IST[employer]: Yes: TIA Cardio/Vascular: Yes: HTN, Hyperlipdemia Gastrointestinal: Yes: Other (dysphagia, s/p peg) Infectious Disease: Yes: C-Diff - Alcohol/Substance Use Hx Alcohol Use: No - Smoking History Smoking history: Never smoked Have you smoked in the past 12 months: No - Social History Usual Living Arrangement: [facility] History of Recent Travel: No Home Medications - Allergies Allergies/Adverse Reactions: Allergies Allergy/AdvReac Type Severity Reaction Status Date / Time No Known Allergies Allergy Verified 11/06/18 18:03 - Home Medications Home Medications: Ambulatory Orders RX: Acetaminophen 325 mg GT Q4H PRN 09/22/17 RX: Atorvastatin Ca [Lipitor] 40 mg GT HS 12/11/17 RX: Zinc Oxide 20% Topical Oint 454 gm NR TID 12/11/17 RX: levETIRAcetam [Keppra Oral Solution -] 500 mg GT BID 12/11/17 RX: Albuterol 0.083% Nebulizer Hanane [Ventolin 0.083% Nebulizer Soln -] 1 amp NEB Q4H PRN amp 12/24/17 Amantadine HCl [Amantadine] 100 mg GT DAILY 11/06/18 Ascorbic Acid [Vitamin C] 500 mg GT DAILY 11/06/18 Carbidopa/Levodopa [Carbidopa-Levodopa 25-250 Tab] 1 each GT TID 11/06/18 Lacosamide [Vimpat] 200 mg GT BID 11/06/18 Lactobacillus Acidophilus [Bacid -] 1 each GT TID 11/06/18 RX: Aspirin [ASA -] 81 mg GT DAILY 11/06/18 RX: Chlorhexidine Gluconate 15 ml TT HS 11/06/18 RX: Folic Acid 1 mg GT DAILY 11/06/18 RX: Furosemide 20 mg GT DAILY 11/06/18 RX: Magnesium Oxide 400 mg GT BID 11/06/18 RX: Midodrine HCl [Proamatine -] 5 mg GT TID-MID 11/06/18 RX: Mirtazapine 7.5 mg GT DAILY 11/06/18 RX: Oxcarbazepine 300 mg GT TID 11/06/18 Ranitidine HCl [Zantac] 150 mg GT DAILY 11/06/18 Silver Sulfadiazine [Silvadene] 1 applic TP BID 11/06/18 Valproic Acid [Depakene] 1,250 mg GT BID 11/06/18 Review of Systems Unable to obtain ROS, reason: unable to obtain Physical Exam Vital Signs: Vital Signs Temperature 102.4 F H 11/06/18 18:30 Pulse Rate 78 11/07/18 13:57 Respiratory Rate 18 11/07/18 13:57 Blood Pressure 141/78 11/07/18 13:57 O2 Sat by Pulse Oximetry (%) 95 11/07/18 13:57 Constitutional: Yes: No Distress, Calm Cardiovascular: Yes: Regular Rate and Rhythm Respiratory: Yes: Regular Gastrointestinal: Yes: Normal Bowel Sounds, Soft Musculoskeletal: Yes: WNL Extremities: Yes: Other Neurological: Yes: Alert, Confusion, Lethargy, Other (no pain on movement of the neck) Psychiatric: Yes: Other Labs: CBC, BMP 11/07/18 06:20 11/07/18 06:20 Imaging - Results Chest X-ray: Report Reviewed, Image Reviewed Cat Scan: Report Reviewed, Image Reviewed Assessment/Plan Problem List - Problems (1) Fever, unknown origin Code(s): R50.9 - FEVER, UNSPECIFIED (2) Sepsis Code(s): A41.9 - SEPSIS, UNSPECIFIED ORGANISM (3) CVA (cerebral vascular accident) Code(s): I63.9 - CEREBRAL INFARCTION, UNSPECIFIED Qualifiers: CVA mechanism: unspecified Qualified Code(s): I63.9 - Cerebral infarction, unspecified 4 pain plan i have low suspicion of meningitis will get a lp done under radiology rest as per the team will continue abx await for other cx reports
[2018-11-07 16:47] VITALS: BMI 22.6
[2018-11-07] MEDS ORDERED: DEXTROSE 5%-WATER - 50 ML IVPB ONE (17:01)
[2018-11-07] MEDS ORDERED: PIPERACILLIN/TAZOBACTAM 3.375 GM VIAL IVPB ONE (17:01)
[2018-11-07] MEDS: ZINC OXIDE 20% TOPICAL OINTMENT 30 GM TUBE TP SCH ×2 (17:34→23:13)
[2018-11-07] MEDS: PIPERACILLIN/TAZOB 3.375 GM 3.375 GM in DEXTROSE 5%-WATER - 50 ML IVPB SCH (17:36)
[2018-11-07] MEDS ORDERED: PT OWN MED DRAWER 7, Y5N ONE (21:23)
[2018-11-07] MEDS: ATORVASTATIN CA 40 MG TABLET (FP) GT SCH (22:33)
[2018-11-07] MEDS: MIRTAZAPINE 15 MG TABLET (FP) GT SCH (23:05)
[2018-11-07] MEDS: CHLORHEXIDINE GLUCONATE 0.12% 15ML CUP MM SCH (23:07)
[2018-11-07] MEDS: ACETAMINOPHEN 650 MG/20.3 ML ORAL SOLUTION (CUPS) GT PRN (23:14)
[2018-11-08] MEDS: SILVER SULFADIAZINE 1% TOP CREAM 50 GM JAR TP SCH ×3 (02:34→21:26)
[2018-11-08] MEDS ORDERED: DEXTROSE 5%-WATER - 50 ML IVPB ONE ×4 (02:39→21:16)
[2018-11-08] MEDS ORDERED: PIPERACILLIN/TAZOBACTAM 3.375 GM VIAL IVPB ONE ×4 (02:39→21:16)
[2018-11-08] MEDS: PIPERACILLIN/TAZOB 3.375 GM 3.375 GM in DEXTROSE 5%-WATER - 50 ML IVPB SCH ×3 (02:40→19:11)
[2018-11-08] MEDS: SODIUM CHLORIDE 1,000 ML IV SCH (02:44)
[2018-11-08] MEDS: LACTOBACILLUS ACIDOPHILUS 1 TABLET GT SCH ×3 (06:43→21:20)
[2018-11-08] MEDS: CARBIDOPA/LEVODOPA 25/250 TABLET (FP) GT SCH ×3 (06:43→21:23)
[2018-11-08] MEDS: OXcarbazepine 300 MG/5 ML 250 ML BULK BOTTLE PO SCH ×3 (06:43→21:24)
[2018-11-08] MEDS: ZINC OXIDE 20% TOPICAL OINTMENT 30 GM TUBE TP SCH ×3 (06:44→21:26)
[2018-11-08] MEDS ORDERED: PT OWN MED DRAWER 7, Y5N ONE ×2 (09:13→13:34)
[2018-11-08] MEDS: ENOXAPARIN NA (PORCINE) 30 MG/0.3 ML DISP.SYRIN SQ SCH (09:41)
[2018-11-08] MEDS: MAGNESIUM OXIDE 400 MG TABLET (FP) GT SCH ×2 (09:44→21:21)
[2018-11-08] MEDS: FOLIC ACID 1 MG TABLET (FP) GT SCH (09:44)
[2018-11-08] MEDS: FUROSEMIDE 20 MG TABLET (FP) GT SCH (09:44)
[2018-11-08] MEDS: ASPIRIN 81 MG CHEWABLE TABLETS GT SCH (09:44)
--- NOTE | 2018-11-08 09:46 | PN ---
Progress Note (short form) - Note Progress Note: more awake, but confused No distress able to move her neck Vital Signs - 24 hr 11/07/18 11/07/18 11/07/18 13:57 15:15 18:14 Temperature 98.6 F 97.9 F Pulse Rate 75 86 Pulse Rate [ 78 Apical] Respiratory 18 18 18 Rate Blood Pressure 120/90 151/51 L Blood Pressure 141/78 [Left Arm] O2 Sat by Pulse 95 100 Oximetry (%) 11/07/18 11/07/18 11/08/18 21:00 22:00 02:00 Temperature 98.9 F 98.4 F Pulse Rate 73 74 Pulse Rate [ Apical] Respiratory 20 20 20 Rate Blood Pressure 104/72 104/61 Blood Pressure [Left Arm] O2 Sat by Pulse 98 Oximetry (%) 11/08/18 05:46 Temperature 98.7 F Pulse Rate 75 Pulse Rate [ Apical] Respiratory 20 Rate Blood Pressure 106/66 Blood Pressure [Left Arm] O2 Sat by Pulse Oximetry (%) Current Medications Generic Name Dose Route Start Last Admin Trade Name Freq PRN Reason Stop Dose Admin Acetaminophen 650 mg 11/07/18 10:02 11/07/18 23:14 Tylenol Oral Solution - GT 650 mg Q4H PRN Administration MODERATE PAIN Albuterol Sulfate 1 amp 11/07/18 01:07 Ventolin 0.083% Nebulizer Soln - NEB Q4H PRN SHORT OF BREATH/WHEEZING Amantadine HCl 100 mg 11/07/18 10:00 11/08/18 09:50 Symmetrel - NR 100 mg DAILY CLE[facility]E Administration Ascorbic Acid 500 mg 11/07/18 10:00 11/08/18 09:51 Vitamin C Oral Solution - GT 500 mg DAILY CLE[facility]E Administration Aspirin 81 mg 11/07/18 10:00 11/08/18 09:44 Asa - GT 81 mg DAILY CLEMENTE Administration Atorvastatin Calcium 40 mg 11/07/18 22:00 11/07/18 22:33 Lipitor - GT 40 mg HS [facility]E Administration Carbidopa/Levodopa 1 each 11/07/18 06:00 11/08/18 06:43 Sinemet 25/250 - GT 1 each TID CLE[facility]E Administration Chlorhexidine Gluconate 15 ml 11/07/18 22:00 11/07/18 23:07 Peridex - MM 15 ml HS [facility]E Administration Enoxaparin Sodium 30 mg 11/07/18 10:00 11/08/18 09:41 Lovenox - SQ 30 mg DAILY CLMEENTE Administration Folic Acid 1 mg 11/07/18 10:00 11/08/18 09:44 Folic Acid - GT 1 mg DAILY [facility]E Administration Furosemide 20 mg 11/07/18 10:00 11/08/18 09:44 Lasix - GT 20 mg DAILY [facility] Administration Sodium Chloride 1,000 mls @ 75 mls/hr 11/07/18 01:15 11/08/18 02:44 Normal Saline - IV Not Given ASDIR CLEMENTE Piperacillin Sod/Tazobactam 50 mls @ 100 mls/hr 11/07/18 18:00 11/08/18 09:48 Sod 3.375 gm/ Dextrose IVPB 100 mls/hr Q8H-IV [facility]E Administration Protocol Lacosamide 200 mg 11/07/18 10:00 11/07/18 23:11 Vimpat Liquid - GT 200 mg BID [facility]E Administration Lactobacillus Acidophilus 1 tab 11/07/18 06:00 11/08/18 06:43 Bacid - GT 1 tab TID [facility] Administration Levetiracetam 500 mg 11/07/18 10:00 11/08/18 09:49 Keppra Oral Solution - GT 500 mg BID [facility] Administration Magnesium Oxide 400 mg 11/07/18 10:00 11/08/18 09:44 Mag-Ox - GT 400 mg BID [facility] Administration Midodrine 5 mg 11/07/18 10:00 11/08/18 09:48 Proamatine - GT 5 mg TID-MID CLE[facility]E Administration Mirtazapine 7.5 mg 11/07/18 22:00 11/07/18 23:05 Remeron - GT 7.5 mg HS [facility]E Administration Multi-Ingredient Ointment 1 applic 11/07/18 08:39 11/08/18 06:44 Zinc Oxide TP 1 applic TID [facility] Administration Oxcarbazepine 300 mg 11/07/18 06:00 11/08/18 06:43 Trileptal PO 300 mg TID [facility]E Administration Ranitidine HCl 150 mg 11/07/18 10:00 11/07/18 10:30 Zantac Oral Solution - PO 150 mg DAILY [facility]E Administration Silver Sulfadiazine 1 applic 11/07/18 10:00 04/10/19 09:51 Silvadene - TP 1 applic BID [facility]E Administration S1 S2 RRR\ Lungs decreased Abd- soft, GT+, ND No edema PLAN Fever-- unknown source-- ?aspiration does not appear to have meningeal signs or symptoms no diarrhea CXR -- negative Restart GT feeds aspiration precautions LP attempted in ER--- pt was not able to get it done received antibiotics in ER ID sharron -- spoke with Dr Junior Problem List - Problems (1) Fever, unknown origin Code(s): R50.9 - FEVER, UNSPECIFIED (2) Sepsis Code(s): A41.9 - SEPSIS, UNSPECIFIED ORGANISM (3) CVA (cerebral vascular accident) Code(s): I63.9 - CEREBRAL INFARCTION, UNSPECIFIED Qualifiers: CVA mechanism: unspecified Qualified Code(s): I63.9 - Cerebral infarction, unspecified
[2018-11-08] MEDS: MIDODRINE HCL 5 MG TABLET GT SCH ×4 (09:48→18:18)
[2018-11-08] MEDS: levETIRAcetam 500 MG/5 ML ORAL SOLUTION (UNIT-DOSE CUPS) GT SCH ×2 (09:49→21:20)
[2018-11-08] MEDS: AMANTADINE HCL 100 MG TABLET NR SCH (09:50)
[2018-11-08] MEDS: ASCORBIC ACID 500 MG/5 ML UNIT DOSE CUP GT SCH (09:51)
--- NOTE | 2018-11-08 12:21 | PN ---
Progress Note, Physician History of Present Illness: patient much more awake and alert does not seem to be in distress - Current Medication List Current Medications: Active Medications Acetaminophen (Tylenol Oral Solution -) 650 mg GT Q4H PRN PRN Reason: MODERATE PAIN Last Admin: 11/07/18 23:14 Dose: 650 mg Albuterol Sulfate (Ventolin 0.083% Nebulizer Soln -) 1 amp NEB Q4H PRN PRN Reason: SHORT OF BREATH/WHEEZING Amantadine HCl (Symmetrel -) 100 mg NR DAILY [facility] Last Admin: 11/08/18 09:50 Dose: 100 mg Ascorbic Acid (Vitamin C Oral Solution -) 500 mg GT DAILY [facility] Last Admin: 11/08/18 09:51 Dose: 500 mg Aspirin (Asa -) 81 mg GT DAILY [facility] Last Admin: 11/08/18 09:44 Dose: 81 mg Atorvastatin Calcium (Lipitor -) 40 mg GT HS [facility] Last Admin: 11/07/18 22:33 Dose: 40 mg Carbidopa/Levodopa (Sinemet 25/250 -) 1 each GT TID [facility] Last Admin: 11/08/18 06:43 Dose: 1 each Chlorhexidine Gluconate (Peridex -) 15 ml MM HS [facility] Last Admin: 11/07/18 23:07 Dose: 15 ml Enoxaparin Sodium (Lovenox -) 30 mg SQ DAILY [facility] Last Admin: 11/08/18 09:41 Dose: 30 mg Folic Acid (Folic Acid -) 1 mg GT DAILY [facility] Last Admin: 11/08/18 09:44 Dose: 1 mg Furosemide (Lasix -) 20 mg GT DAILY [facility] Last Admin: 11/08/18 09:44 Dose: 20 mg Sodium Chloride (Normal Saline -) 1,000 mls @ 75 mls/hr IV ASDIR [facility]MENTE Last Admin: 11/08/18 02:44 Dose: Not Given Piperacillin Sod/Tazobactam (Sod 3.375 gm/ Dextrose) 50 mls @ 100 mls/hr IVPB Q8H-IV [facility]MENTE; Protocol Last Admin: 11/08/18 09:48 Dose: 100 mls/hr Lacosamide (Vimpat Liquid -) 200 mg GT BID [facility] Last Admin: 11/07/18 23:11 Dose: 200 mg Lactobacillus Acidophilus (Bacid -) 1 tab GT TID [facility]E Last Admin: 11/08/18 06:43 Dose: 1 tab Levetiracetam (Keppra Oral Solution -) 500 mg GT BID [facility] Last Admin: 11/08/18 09:49 Dose: 500 mg Magnesium Oxide (Mag-Ox -) 400 mg GT BID [facility] Last Admin: 11/08/18 09:44 Dose: 400 mg Midodrine (Proamatine -) 5 mg GT TID-MID [facility] Last Admin: 11/08/18 09:48 Dose: 5 mg Mirtazapine (Remeron -) 7.5 mg GT HS [facility] Last Admin: 11/07/18 23:05 Dose: 7.5 mg Multi-Ingredient Ointment (Zinc Oxide) 1 applic TP TID [facility] Last Admin: 11/08/18 06:44 Dose: 1 applic Oxcarbazepine (Trileptal) 300 mg PO TID [facility] Last Admin: 11/08/18 06:43 Dose: 300 mg Ranitidine HCl (Zantac Oral Solution -) 150 mg PO DAILY [facility] Last Admin: 11/07/18 10:30 Dose: 150 mg Silver Sulfadiazine (Silvadene -) 1 applic TP BID [facility] Last Admin: 11/08/18 09:51 Dose: 1 applic - Objective Vital Signs: Vital Signs Temperature 98.7 F 11/08/18 05:46 Pulse Rate 75 11/08/18 05:46 Respiratory Rate 20 11/08/18 05:46 Blood Pressure 106/66 11/08/18 05:46 O2 Sat by Pulse Oximetry (%) 98 11/07/18 21:00 Constitutional: Yes: No Distress, Calm Cardiovascular: Yes: Regular Rate and Rhythm Respiratory: Yes: Regular, CTA Bilaterally Gastrointestinal: Yes: Normal Bowel Sounds, Soft Musculoskeletal: Yes: Other (pain in the rt knee when moving) Extremities: Yes: WNL Neurological: Yes: Alert, Other (no neck tendrness,no agitation) Labs: CBC, BMP 11/07/18 06:20 11/07/18 06:20 INR, PTT INR 1.15 (0.83-1.09) H 11/06/18 19:00 Assessment/Plan Problem List - Problems (1) Fever, unknown origin Code(s): R50.9 - FEVER, UNSPECIFIED (2) Sepsis Code(s): A41.9 - SEPSIS, UNSPECIFIED ORGANISM (3) CVA (cerebral vascular accident) Code(s): I63.9 - CEREBRAL INFARCTION, UNSPECIFIED Qualifiers: CVA mechanism: unspecified Qualified Code(s): I63.9 - Cerebral infarction, unspecified 4 pain patient has been afebrile now more awake it seems her baseline is confusion cx no growth if lp is to be done please get under fluroscopy--i jhave low suspicion for meningitis
[2018-11-08] MEDS: Lacosamide 50 MG/5 ML ORAL SOLUTION UNIT CUPS GT SCH (12:37)
[2018-11-08] MEDS: RANITIDINE HCL 150 MG/10 ML UNIT-DOSE PO SCH (12:37)
[2018-11-08] MEDS: ATORVASTATIN CA 40 MG TABLET (FP) GT SCH (21:21)
[2018-11-08] MEDS: CHLORHEXIDINE GLUCONATE 0.12% 15ML CUP MM SCH (21:22)
[2018-11-09] MEDS: Lacosamide 50 MG/5 ML ORAL SOLUTION UNIT CUPS GT SCH ×3 (01:00→21:49)
[2018-11-09] MEDS: PIPERACILLIN/TAZOB 3.375 GM 3.375 GM in DEXTROSE 5%-WATER - 50 ML IVPB SCH ×3 (01:53→17:25)
[2018-11-09] MEDS: MIRTAZAPINE 15 MG TABLET (FP) GT SCH ×2 (02:22→21:46)
[2018-11-09] MEDS: ZINC OXIDE 20% TOPICAL OINTMENT 30 GM TUBE TP SCH ×3 (06:55→21:47)
[2018-11-09] MEDS: CARBIDOPA/LEVODOPA 25/250 TABLET (FP) GT SCH ×3 (06:55→21:43)
[2018-11-09] MEDS: LACTOBACILLUS ACIDOPHILUS 1 TABLET GT SCH ×3 (06:55→21:43)
[2018-11-09] MEDS: OXcarbazepine 300 MG/5 ML 250 ML BULK BOTTLE PO SCH ×3 (06:55→21:44)
[2018-11-09] MEDS ORDERED: PT OWN MED DRAWER 7, Y5N ONE ×5 (07:04→21:39)
[2018-11-09 07:33] LABS: BASO % 0.5 % (0-2.0); EOS % 2.7 % (0-4.5); HEMATOCRIT 27.3 % (32.4-45.2); HEMOGLOBIN 9.6 GM/dL (10.7-15.3); LYMPH % 36.4 % (8-40); MCH 34.4 pg (25.7-33.7); MCHC 35.3 g/dl (32.0-36.0); MEAN CELL VOLUME 97.5 fl (80-96); MEAN PLT VOLUME 10.3 fl (7.5-11.1); MONO % 8.9 % (3.8-10.2); NEUT % 51.5 % (42.8-82.8); PLATELET COUNT 114 K/MM3 (134-434); RDW 15.8 % (11.6-15.6); WHITE BLOOD COUNT 6.2 K/mm3 (4.0-10.0)
[2018-11-09 08:06] LABS: ALBUMIN 2.4 g/dl (3.4-5.0); ALK PHOS 145 U/L (45-117); ANION GAP 3 MMOL/L (8-16); BILIRUBIN,TOTAL 0.2 mg/dL (0.2-1); BLOOD UREA NITROGEN 15 mg/dL (7-18); CALCIUM 8.9 mg/dL (8.5-10.1); CHLORIDE 116 mmol/L (98-107); CO2 32 mmol/L (21-32); CREATININE 0.5 mg/dL (0.55-1.3); GLUCOSE,RANDOM 106 mg/dL (74-106); POTASSIUM 3.4 mmol/L (3.5-5.1); SGOT/AST 36 U/L (15-37); SGPT/ALT 29 U/L (13-61); SODIUM 151 mmol/L (136-145); TOT PROT 6.6 g/dl (6.4-8.2)
[2018-11-09] MEDS ORDERED: PIPERACILLIN/TAZOBACTAM 3.375 GM VIAL IVPB ONE ×2 (10:02→17:02)
[2018-11-09] MEDS ORDERED: DEXTROSE 5%-WATER - 50 ML IVPB ONE ×2 (10:02→17:02)
[2018-11-09] MEDS: RANITIDINE HCL 150 MG/10 ML UNIT-DOSE PO SCH (10:05)
[2018-11-09] MEDS: ASPIRIN 81 MG CHEWABLE TABLETS GT SCH (10:07)
[2018-11-09] MEDS: FOLIC ACID 1 MG TABLET (FP) GT SCH (10:08)
[2018-11-09] MEDS: FUROSEMIDE 20 MG TABLET (FP) GT SCH (10:08)
[2018-11-09] MEDS: levETIRAcetam 500 MG/5 ML ORAL SOLUTION (UNIT-DOSE CUPS) GT SCH ×2 (10:08→21:45)
[2018-11-09] MEDS: MAGNESIUM OXIDE 400 MG TABLET (FP) GT SCH ×2 (10:08→21:43)
[2018-11-09] MEDS: MIDODRINE HCL 5 MG TABLET GT SCH ×3 (10:09→17:13)
[2018-11-09] MEDS: SILVER SULFADIAZINE 1% TOP CREAM 50 GM JAR TP SCH ×2 (10:10→21:47)
[2018-11-09] MEDS: AMANTADINE HCL 100 MG TABLET NR SCH (10:10)
[2018-11-09] MEDS: ASCORBIC ACID 500 MG/5 ML UNIT DOSE CUP GT SCH (10:10)
[2018-11-09] MEDS: ENOXAPARIN NA (PORCINE) 30 MG/0.3 ML DISP.SYRIN SQ SCH (10:10)
--- NOTE | 2018-11-09 12:03 | PN ---
Progress Note (short form) - Note Progress Note: awake and alert no complaints low grade fever Vital Signs - 24 hr 11/08/18 11/08/18 11/08/18 16:30 17:53 18:40 Temperature 97.8 F 97.6 F Pulse Rate 86 77 Respiratory 18 18 Rate Blood Pressure 102/69 104/63 O2 Sat by Pulse 97 Oximetry (%) 11/09/18 11/09/18 04:00 08:35 Temperature 98.1 F 99 F Pulse Rate 18 L 70 Respiratory 18 18 Rate Blood Pressure 98/53 L 100/60 O2 Sat by Pulse Oximetry (%) Current Medications Generic Name Dose Route Start Last Admin Trade Name Freq PRN Reason Stop Dose Admin Acetaminophen 650 mg 11/07/18 10:02 11/07/18 23:14 Tylenol Oral Solution - GT 650 mg Q4H PRN Administration MODERATE PAIN Albuterol Sulfate 1 amp 11/07/18 01:07 Ventolin 0.083% Nebulizer Soln - NEB Q4H PRN SHORT OF BREATH/WHEEZING Amantadine HCl 100 mg 11/07/18 10:00 11/09/18 10:10 Symmetrel - NR 100 mg DAILY CLE[facility]E Administration Ascorbic Acid 500 mg 11/07/18 10:00 11/09/18 10:10 Vitamin C Oral Solution - GT 500 mg DAILY [facility] Administration Aspirin 81 mg 11/07/18 10:00 11/09/18 10:07 Asa - GT 81 mg DAILY [facility]E Administration Atorvastatin Calcium 40 mg 11/07/18 22:00 11/08/18 21:21 Lipitor - GT 40 mg HS LCEMENTE Administration Carbidopa/Levodopa 1 each 11/07/18 06:00 11/09/18 06:55 Sinemet 25/250 - GT 1 each TID [facility]E Administration Chlorhexidine Gluconate 15 ml 11/07/18 22:00 11/08/18 21:22 Peridex - MM 15 ml HS [facility]E Administration Enoxaparin Sodium 30 mg 11/07/18 10:00 11/09/18 10:10 Lovenox - SQ 30 mg DAILY [facility] Administration Folic Acid 1 mg 11/07/18 10:00 11/09/18 10:08 Folic Acid - GT 1 mg DAILY [facility] Administration Furosemide 20 mg 11/07/18 10:00 11/09/18 10:08 Lasix - GT 20 mg DAILY [facility] Administration Piperacillin Sod/Tazobactam 50 mls @ 100 mls/hr 11/07/18 18:00 11/09/18 10:05 Sod 3.375 gm/ Dextrose IVPB 100 mls/hr Q8H-IV [facility]E Administration Protocol Lacosamide 200 mg 11/07/18 10:00 11/09/18 10:09 Vimpat Liquid - GT 200 mg BID [facility] Administration Lactobacillus Acidophilus 1 tab 11/07/18 06:00 11/09/18 06:55 Bacid - GT 1 tab TID [facility] Administration Levetiracetam 500 mg 11/07/18 10:00 11/09/18 10:08 Keppra Oral Solution - GT 500 mg BID [facility] Administration Magnesium Oxide 400 mg 11/07/18 10:00 11/09/18 10:08 Mag-Ox - GT 400 mg BID [facility] Administration Midodrine 5 mg 11/07/18 10:00 11/09/18 10:09 Proamatine - GT 5 mg TID-MID [facility]E Administration Mirtazapine 7.5 mg 11/07/18 22:00 11/09/18 02:22 Remeron - GT Not Given HS CLE[facility]E Multi-Ingredient Ointment 1 applic 11/07/18 08:39 11/09/18 06:55 Zinc Oxide TP 1 applic TID [facility] Administration Oxcarbazepine 300 mg 11/07/18 06:00 11/09/18 06:55 Trileptal PO 300 mg TID [facility]E Administration Ranitidine HCl 150 mg 11/07/18 10:00 11/09/18 10:05 Zantac Oral Solution - PO 150 mg DAILY [facility]E Administration Silver Sulfadiazine 1 applic 11/07/18 10:00 11/09/18 10:10 Silvadene - TP 1 applic BID [facility]E Administration Laboratory Results - last 24 hr 11/09/18 11/09/18 06:05 06:05 WBC 6.2 RBC 2.80 L Hgb 9.6 L Hct 27.3 L D MCV 97.5 H MCH 34.4 H MCHC 35.3 RDW 15.8 H Plt Count 114 L D MPV 10.3 Absolute Neuts (auto) 3.2 Neutrophils % 51.5 Lymphocytes % 36.4 Monocytes % 8.9 Eosinophils % 2.7 D Basophils % 0.5 Nucleated RBC % 0 Sodium 151 H Potassium 3.4 L Chloride 116 H Carbon Dioxide 32 Anion Gap 3 L BUN 15 Creatinine 0.5 L Creat Clearance w eGFR 123.83 Random Glucose 106 Calcium 8.9 Total Bilirubin 0.2 AST 36 ALT 29 Alkaline Phosphatase 145 H Total Protein 6.6 Albumin 2.4 L S1 S2 RRR Lungs decreased Abd- soft, GT+, ND No edema PLAN Fever-- unknown source-- ?aspiration now low grade fever one culture positive-- ?contaminant spoke with ID today-- order LP to r/o meningitis-- pt is currently in droplet isolation no diarrhea if spiking fever- will order CT scans CXR -- negative aspiration precautions LP attempted in ER--- pt was not able to get it done-- will order with interventional radiology Problem List - Problems (1) Fever, unknown origin Code(s): R50.9 - FEVER, UNSPECIFIED (2) Sepsis Code(s): A41.9 - SEPSIS, UNSPECIFIED ORGANISM (3) CVA (cerebral vascular accident) Code(s): I63.9 - CEREBRAL INFARCTION, UNSPECIFIED Qualifiers: CVA mechanism: unspecified Qualified Code(s): I63.9 - Cerebral infarction, unspecified
[2018-11-09] MEDS ORDERED: POTASSIUM CHLORIDE ORAL LIQUID 20 MEQ/15 ML PO ONE (12:30)
[2018-11-09] MEDS: ACETAMINOPHEN 650 MG/20.3 ML ORAL SOLUTION (CUPS) GT PRN (13:20)
--- NOTE | 2018-11-09 14:33 | PN ---
Progress Note, Physician History of Present Illness: patient continues to be in altered mental status had a low grade fever patient cannot get an LP ,the reason given by IR is that she is on aspirin i still think the probability of meningitis is low patients cx results noted - Current Medication List Current Medications: Active Medications Acetaminophen (Tylenol Oral Solution -) 650 mg GT Q4H PRN PRN Reason: MODERATE PAIN Last Admin: 11/09/18 13:20 Dose: 650 mg Albuterol Sulfate (Ventolin 0.083% Nebulizer Soln -) 1 amp NEB Q4H PRN PRN Reason: SHORT OF BREATH/WHEEZING Amantadine HCl (Symmetrel -) 100 mg NR DAILY [facility] Last Admin: 11/09/18 10:10 Dose: 100 mg Ascorbic Acid (Vitamin C Oral Solution -) 500 mg GT DAILY [facility] Last Admin: 11/09/18 10:10 Dose: 500 mg Aspirin (Asa -) 81 mg GT DAILY [facility] Last Admin: 11/09/18 10:07 Dose: 81 mg Atorvastatin Calcium (Lipitor -) 40 mg GT HS [facility] Last Admin: 11/08/18 21:21 Dose: 40 mg Carbidopa/Levodopa (Sinemet 25/250 -) 1 each GT TID [facility] Last Admin: 11/09/18 13:23 Dose: 1 each Chlorhexidine Gluconate (Peridex -) 15 ml MM HS [facility] Last Admin: 11/08/18 21:22 Dose: 15 ml Enoxaparin Sodium (Lovenox -) 30 mg SQ DAILY [facility] Last Admin: 11/09/18 10:10 Dose: 30 mg Folic Acid (Folic Acid -) 1 mg GT DAILY [facility] Last Admin: 11/09/18 10:08 Dose: 1 mg Furosemide (Lasix -) 20 mg GT DAILY [facility] Last Admin: 11/09/18 10:08 Dose: 20 mg Piperacillin Sod/Tazobactam (Sod 3.375 gm/ Dextrose) 50 mls @ 100 mls/hr IVPB Q8H-IV [facility]; Protocol Last Admin: 11/09/18 10:05 Dose: 100 mls/hr Lacosamide (Vimpat Liquid -) 200 mg GT BID [facility] Last Admin: 11/09/18 10:09 Dose: 200 mg Lactobacillus Acidophilus (Bacid -) 1 tab GT TID [facility] Last Admin: 11/09/18 13:22 Dose: 1 tab Levetiracetam (Keppra Oral Solution -) 500 mg GT BID [facility] Last Admin: 11/09/18 10:08 Dose: 500 mg Magnesium Oxide (Mag-Ox -) 400 mg GT BID [facility] Last Admin: 11/09/18 10:08 Dose: 400 mg Midodrine (Proamatine -) 5 mg GT TID-MID [facility] Last Admin: 11/09/18 13:22 Dose: 5 mg Mirtazapine (Remeron -) 7.5 mg GT HS [facility] Last Admin: 11/09/18 02:22 Dose: Not Given Multi-Ingredient Ointment (Zinc Oxide) 1 applic TP TID [facility] Last Admin: 11/09/18 13:23 Dose: 1 applic Oxcarbazepine (Trileptal) 300 mg PO TID [facility] Last Admin: 11/09/18 13:22 Dose: 300 mg Ranitidine HCl (Zantac Oral Solution -) 150 mg PO DAILY [facility] Last Admin: 11/09/18 10:05 Dose: 150 mg Silver Sulfadiazine (Silvadene -) 1 applic TP BID [facility] Last Admin: 11/09/18 10:10 Dose: 1 applic - Objective Vital Signs: Vital Signs Temperature 99 F 11/09/18 08:35 Pulse Rate 70 11/09/18 08:35 Respiratory Rate 18 11/09/18 08:35 Blood Pressure 100/60 11/09/18 08:35 O2 Sat by Pulse Oximetry (%) 97 11/08/18 17:53 Constitutional: Yes: Calm Eyes: Yes: Conjunctiva Clear Cardiovascular: Yes: Regular Rate and Rhythm Respiratory: Yes: Regular, CTA Bilaterally Musculoskeletal: Yes: WNL Extremities: Yes: WNL Neurological: Yes: Other (dementia) Psychiatric: Yes: Other Labs: CBC, BMP 11/09/18 06:05 11/09/18 06:05 INR, PTT INR 1.15 (0.83-1.09) H 11/06/18 19:00 Assessment/Plan Problem List - Problems (1) Fever, unknown origin Code(s): R50.9 - FEVER, UNSPECIFIED (2) Sepsis Code(s): A41.9 - SEPSIS, UNSPECIFIED ORGANISM (3) CVA (cerebral vascular accident) Code(s): I63.9 - CEREBRAL INFARCTION, UNSPECIFIED Qualifiers: CVA mechanism: unspecified Qualified Code(s): I63.9 - Cerebral infarction, unspecified 4 pain still with confusion plan will give one dose of vanco continue zosyn will check what the blood cx comes out then will decide further mgmt
[2018-11-09] MEDS ORDERED: VANCOMYCIN HCL 1,250 MG in DEXTROSE 5%-WATER - 250 ML IVPB ONE (15:00)
[2018-11-09] MEDS: ATORVASTATIN CA 40 MG TABLET (FP) GT SCH (21:43)
[2018-11-09] MEDS: CHLORHEXIDINE GLUCONATE 0.12% 15ML CUP MM SCH (21:45)
[2018-11-10] MEDS ORDERED: PIPERACILLIN/TAZOBACTAM 3.375 GM VIAL IVPB ONE ×3 (01:00→17:20)
[2018-11-10] MEDS ORDERED: DEXTROSE 5%-WATER - 50 ML IVPB ONE ×3 (01:01→17:20)
[2018-11-10] MEDS: PIPERACILLIN/TAZOB 3.375 GM 3.375 GM in DEXTROSE 5%-WATER - 50 ML IVPB SCH ×3 (01:26→17:25)
[2018-11-10] MEDS: LACTOBACILLUS ACIDOPHILUS 1 TABLET GT SCH ×3 (06:19→21:43)
[2018-11-10] MEDS: CARBIDOPA/LEVODOPA 25/250 TABLET (FP) GT SCH ×3 (06:19→21:41)
[2018-11-10] MEDS: OXcarbazepine 300 MG/5 ML 250 ML BULK BOTTLE PO SCH ×3 (06:20→21:42)
[2018-11-10] MEDS: ZINC OXIDE 20% TOPICAL OINTMENT 30 GM TUBE TP SCH ×3 (06:20→21:44)
[2018-11-10 08:36] LABS: BASO % 0.8 % (0-2.0); EOS % 4.4 % (0-4.5); HEMATOCRIT 28.9 % (32.4-45.2); HEMOGLOBIN 10.3 GM/dL (10.7-15.3); LYMPH % 44.3 % (8-40); MCH 35.4 pg (25.7-33.7); MCHC 35.5 g/dl (32.0-36.0); MEAN CELL VOLUME 99.6 fl (80-96); MEAN PLT VOLUME 11.2 fl (7.5-11.1); MONO % 8.3 % (3.8-10.2); NEUT % 42.2 % (42.8-82.8); PLATELET COUNT 80 K/MM3 (134-434); RDW 15.9 % (11.6-15.6); WHITE BLOOD COUNT 7.6 K/mm3 (4.0-10.0)
[2018-11-10 08:37] LABS: ALBUMIN 2.4 g/dl (3.4-5.0); ALK PHOS 146 U/L (45-117); ANION GAP 5 MMOL/L (8-16); BILIRUBIN,TOTAL 0.3 mg/dL (0.2-1); BLOOD UREA NITROGEN 13 mg/dL (7-18); CALCIUM 8.8 mg/dL (8.5-10.1); CHLORIDE 114 mmol/L (98-107); CO2 27 mmol/L (21-32); CREATININE 0.5 mg/dL (0.55-1.3); GLUCOSE,RANDOM 83 mg/dL (74-106); POTASSIUM 4.1 mmol/L (3.5-5.1); SGOT/AST 38 U/L (15-37); SGPT/ALT 16 U/L (13-61); SODIUM 146 mmol/L (136-145); TOT PROT 6.7 g/dl (6.4-8.2)
[2018-11-10] MEDS ORDERED: PT OWN MED DRAWER 7, Y5N ONE ×4 (09:36→21:35)
[2018-11-10] MEDS: ASPIRIN 81 MG CHEWABLE TABLETS GT SCH (09:44)
[2018-11-10] MEDS: MIDODRINE HCL 5 MG TABLET GT SCH ×3 (09:44→17:26)
[2018-11-10] MEDS: ENOXAPARIN NA (PORCINE) 30 MG/0.3 ML DISP.SYRIN SQ SCH (09:44)
[2018-11-10] MEDS: MAGNESIUM OXIDE 400 MG TABLET (FP) GT SCH ×2 (09:44→21:42)
[2018-11-10] MEDS: FUROSEMIDE 20 MG TABLET (FP) GT SCH (09:44)
[2018-11-10] MEDS: FOLIC ACID 1 MG TABLET (FP) GT SCH (09:44)
[2018-11-10] MEDS: RANITIDINE HCL 150 MG/10 ML UNIT-DOSE PO SCH (09:45)
[2018-11-10] MEDS: ASCORBIC ACID 500 MG/5 ML UNIT DOSE CUP GT SCH (09:46)
[2018-11-10] MEDS: levETIRAcetam 500 MG/5 ML ORAL SOLUTION (UNIT-DOSE CUPS) GT SCH ×2 (09:46→21:42)
[2018-11-10] MEDS: Lacosamide 50 MG/5 ML ORAL SOLUTION UNIT CUPS GT SCH ×2 (09:47→21:44)
[2018-11-10] MEDS: AMANTADINE HCL 100 MG TABLET NR SCH (09:48)
[2018-11-10] MEDS: SILVER SULFADIAZINE 1% TOP CREAM 50 GM JAR TP SCH ×2 (09:56→21:44)
[2018-11-10] MEDS ORDERED: IBUPROFEN 400 MG TABLET (FP) PO PRN (10:43)
--- NOTE | 2018-11-10 10:45 | PN ---
Progress Note (short form) - Note Progress Note: pt seen/ examined chart reviewed awake denies headache talking normal complains of right thigh pain Vital Signs Temp 98.2 F 11/10/18 06:00 Pulse 69 11/10/18 06:00 Resp 18 11/10/18 06:00 BP 79/50 L 11/10/18 06:00 Pulse Ox 96 11/09/18 21:00 Intake & Output 11/09/18 11/09/18 11/10/18 11:59 23:59 11:59 Intake Total 1815 Balance 1815 Intake: IVPB 350 Tube Feeding 800 Tube Irrigant 665 Other: Voiding Method Incontinent Incontinent # Unmeasured Voids Void 1 2 Bowel Movement No Yes Yes # Bowel Movements 2 1 Active Medications Acetaminophen (Tylenol Oral Solution -) 650 mg GT Q4H PRN PRN Reason: MODERATE PAIN Last Admin: 11/09/18 13:20 Dose: 650 mg Albuterol Sulfate (Ventolin 0.083% Nebulizer Soln -) 1 amp NEB Q4H PRN PRN Reason: SHORT OF BREATH/WHEEZING Amantadine HCl (Symmetrel -) 100 mg NR DAILY [facility] Last Admin: 11/10/18 09:48 Dose: 100 mg Ascorbic Acid (Vitamin C Oral Solution -) 500 mg GT DAILY [facility] Last Admin: 11/10/18 09:46 Dose: 500 mg Aspirin (Asa -) 81 mg GT DAILY [facility] Last Admin: 11/10/18 09:44 Dose: 81 mg Atorvastatin Calcium (Lipitor -) 40 mg GT HS [facility] Last Admin: 11/09/18 21:43 Dose: 40 mg Carbidopa/Levodopa (Sinemet 25/250 -) 1 each GT TID [facility] Last Admin: 11/10/18 06:19 Dose: 1 each Chlorhexidine Gluconate (Peridex -) 15 ml MM HS [facility] Last Admin: 11/09/18 21:45 Dose: 15 ml Enoxaparin Sodium (Lovenox -) 30 mg SQ DAILY [facility] Last Admin: 11/10/18 09:44 Dose: 30 mg Folic Acid (Folic Acid -) 1 mg GT DAILY [facility] Last Admin: 11/10/18 09:44 Dose: 1 mg Piperacillin Sod/Tazobactam (Sod 3.375 gm/ Dextrose) 50 mls @ 100 mls/hr IVPB Q8H-IV [facility]; Protocol Last Admin: 11/10/18 09:44 Dose: 100 mls/hr Potassium Chloride/Sodium Chloride (Ns+20 Meq Kcl -) 20 meq in 1,000 mls @ 100 mls/hr IV ASDIR [facility] Ibuprofen (Motrin -) 400 mg PO Q6H PRN PRN Reason: FEVER Lacosamide (Vimpat Liquid -) 200 mg GT BID [facility] Last Admin: 11/10/18 09:47 Dose: 200 mg Lactobacillus Acidophilus (Bacid -) 1 tab GT TID [facility] Last Admin: 11/10/18 06:19 Dose: 1 tab Levetiracetam (Keppra Oral Solution -) 500 mg GT BID [facility] Last Admin: 11/10/18 09:46 Dose: 500 mg Magnesium Oxide (Mag-Ox -) 400 mg GT BID [facility] Last Admin: 11/10/18 09:44 Dose: 400 mg Midodrine (Proamatine -) 5 mg GT TID-MID [facility] Last Admin: 11/10/18 09:44 Dose: 5 mg Mirtazapine (Remeron -) 7.5 mg GT HS [facility] Last Admin: 11/09/18 21:46 Dose: 7.5 mg Multi-Ingredient Ointment (Zinc Oxide) 1 applic TP TID [facility] Last Admin: 11/10/18 06:20 Dose: 1 applic Oxcarbazepine (Trileptal) 300 mg PO TID [facility] Last Admin: 11/10/18 06:20 Dose: 300 mg Ranitidine HCl (Zantac Oral Solution -) 150 mg PO DAILY [facility] Last Admin: 11/10/18 09:45 Dose: 150 mg Silver Sulfadiazine (Silvadene -) 1 applic TP BID [facility] Last Admin: 11/10/18 09:56 Dose: 1 applic CBC, BMP 11/10/18 06:30 11/10/18 06:30 Microbiology 11/06/18 19:00 Blood Culture - Preliminary Blood - Peripheral Venous Staphylococcus Coagulase Neg 11/06/18 19:20 Blood Culture - Preliminary Blood - Peripheral Venous NO GROWTH OBTAINED AFTER 72 HOURS, INCUBATION TO CONTINUE FOR 2 DAYS. Physical exam S1 S2 RRR Lungs decreased Abd- soft, GT+, ND No edema Right thigh--- no redness or swelling--- but tender to touch assessment and plan bp low start on fluids motrin for pain for now abx will follow discussed with nursing staff ID to follow
--- NOTE | 2018-11-10 12:45 | PN ---
Progress Note, Physician History of Present Illness: patient stable much more awake and alert still confused - Current Medication List Current Medications: Active Medications Acetaminophen (Tylenol Oral Solution -) 650 mg GT Q4H PRN PRN Reason: MODERATE PAIN Last Admin: 11/09/18 13:20 Dose: 650 mg Albuterol Sulfate (Ventolin 0.083% Nebulizer Soln -) 1 amp NEB Q4H PRN PRN Reason: SHORT OF BREATH/WHEEZING Amantadine HCl (Symmetrel -) 100 mg NR DAILY [facility] Last Admin: 11/10/18 09:48 Dose: 100 mg Ascorbic Acid (Vitamin C Oral Solution -) 500 mg GT DAILY [facility] Last Admin: 11/10/18 09:46 Dose: 500 mg Aspirin (Asa -) 81 mg GT DAILY [facility] Last Admin: 11/10/18 09:44 Dose: 81 mg Atorvastatin Calcium (Lipitor -) 40 mg GT HS [facility] Last Admin: 11/09/18 21:43 Dose: 40 mg Carbidopa/Levodopa (Sinemet 25/250 -) 1 each GT TID [facility] Last Admin: 11/10/18 06:19 Dose: 1 each Chlorhexidine Gluconate (Peridex -) 15 ml MM HS [facility] Last Admin: 11/09/18 21:45 Dose: 15 ml Enoxaparin Sodium (Lovenox -) 30 mg SQ DAILY [facility] Last Admin: 11/10/18 09:44 Dose: 30 mg Folic Acid (Folic Acid -) 1 mg GT DAILY [facility] Last Admin: 11/10/18 09:44 Dose: 1 mg Piperacillin Sod/Tazobactam (Sod 3.375 gm/ Dextrose) 50 mls @ 100 mls/hr IVPB Q8H-IV [facility]; Protocol Last Admin: 11/10/18 09:44 Dose: 100 mls/hr Potassium Chloride/Sodium Chloride (Ns+20 Meq Kcl -) 20 meq in 1,000 mls @ 100 mls/hr IV ASDIR [facility] Ibuprofen (Motrin -) 400 mg PO Q6H PRN PRN Reason: FEVER Lacosamide (Vimpat Liquid -) 200 mg GT BID [facility] Last Admin: 11/10/18 09:47 Dose: 200 mg Lactobacillus Acidophilus (Bacid -) 1 tab GT TID [facility] Last Admin: 11/10/18 06:19 Dose: 1 tab Levetiracetam (Keppra Oral Solution -) 500 mg GT BID [facility] Last Admin: 11/10/18 09:46 Dose: 500 mg Magnesium Oxide (Mag-Ox -) 400 mg GT BID [facility] Last Admin: 11/10/18 09:44 Dose: 400 mg Midodrine (Proamatine -) 5 mg GT TID-MID [facility] Last Admin: 11/10/18 09:44 Dose: 5 mg Mirtazapine (Remeron -) 7.5 mg GT HS [facility] Last Admin: 11/09/18 21:46 Dose: 7.5 mg Multi-Ingredient Ointment (Zinc Oxide) 1 applic TP TID [facility] Last Admin: 11/10/18 06:20 Dose: 1 applic Oxcarbazepine (Trileptal) 300 mg PO TID [facility] Last Admin: 11/10/18 06:20 Dose: 300 mg Ranitidine HCl (Zantac Oral Solution -) 150 mg PO DAILY [facility] Last Admin: 11/10/18 09:45 Dose: 150 mg Silver Sulfadiazine (Silvadene -) 1 applic TP BID [facility] Last Admin: 11/10/18 09:56 Dose: 1 applic - Objective Vital Signs: Vital Signs Temperature 97.6 F 11/10/18 09:00 Pulse Rate 70 11/10/18 09:00 Respiratory Rate 18 11/10/18 09:00 Blood Pressure 100/70 11/10/18 09:00 O2 Sat by Pulse Oximetry (%) 96 11/10/18 09:00 Constitutional: Yes: No Distress, Calm Cardiovascular: Yes: Regular Rate and Rhythm Respiratory: Yes: Regular, CTA Bilaterally Gastrointestinal: Yes: Normal Bowel Sounds, Soft Musculoskeletal: Yes: WNL Extremities: Yes: Other Neurological: Yes: Alert, Confusion Psychiatric: Yes: Other Labs: CBC, BMP 11/10/18 06:30 11/10/18 06:30 INR, PTT INR 1.15 (0.83-1.09) H 11/06/18 19:00 Assessment/Plan Problem List - Problems (1) Fever, unknown origin Code(s): R50.9 - FEVER, UNSPECIFIED (2) Sepsis Code(s): A41.9 - SEPSIS, UNSPECIFIED ORGANISM (3) CVA (cerebral vascular accident) Code(s): I63.9 - CEREBRAL INFARCTION, UNSPECIFIED Qualifiers: CVA mechanism: unspecified Qualified Code(s): I63.9 - Cerebral infarction, unspecified 4 pain patient growing staph saphrophyticus in blood i do not think this is a pathogen in blood will recheck the blood cx again will continue current mgmt
[2018-11-10] MEDS: SODIUM CHLORIDE 0.9%/KCL 20 MEQ/1,000 ML INFUS.BAG IV SCH (17:09)
[2018-11-10] MEDS: ATORVASTATIN CA 40 MG TABLET (FP) GT SCH (21:42)
[2018-11-10] MEDS: CHLORHEXIDINE GLUCONATE 0.12% 15ML CUP MM SCH (21:43)
[2018-11-10] MEDS: MIRTAZAPINE 15 MG TABLET (FP) GT SCH (21:44)
[2018-11-11] MEDS ORDERED: DEXTROSE 5%-WATER - 50 ML IVPB ONE ×3 (02:25→17:13)
[2018-11-11] MEDS ORDERED: PIPERACILLIN/TAZOBACTAM 3.375 GM VIAL IVPB ONE ×3 (02:25→17:13)
[2018-11-11] MEDS: PIPERACILLIN/TAZOB 3.375 GM 3.375 GM in DEXTROSE 5%-WATER - 50 ML IVPB SCH ×3 (02:51→17:17)
[2018-11-11] MEDS: CARBIDOPA/LEVODOPA 25/250 TABLET (FP) GT SCH ×3 (05:04→21:11)
[2018-11-11] MEDS: LACTOBACILLUS ACIDOPHILUS 1 TABLET GT SCH ×3 (05:04→21:11)
[2018-11-11] MEDS: OXcarbazepine 300 MG/5 ML 250 ML BULK BOTTLE PO SCH ×3 (05:04→21:11)
[2018-11-11] MEDS: ZINC OXIDE 20% TOPICAL OINTMENT 30 GM TUBE TP SCH ×3 (05:05→21:13)
[2018-11-11] MEDS: SODIUM CHLORIDE 0.9%/KCL 20 MEQ/1,000 ML INFUS.BAG IV SCH (08:37)
[2018-11-11] MEDS ORDERED: PT OWN MED DRAWER 7, Y5N ONE ×2 (10:10→13:12)
[2018-11-11] MEDS: RANITIDINE HCL 150 MG/10 ML UNIT-DOSE PO SCH (10:13)
[2018-11-11] MEDS: ASPIRIN 81 MG CHEWABLE TABLETS GT SCH (10:16)
[2018-11-11] MEDS: FOLIC ACID 1 MG TABLET (FP) GT SCH (10:16)
[2018-11-11] MEDS: levETIRAcetam 500 MG/5 ML ORAL SOLUTION (UNIT-DOSE CUPS) GT SCH ×2 (10:17→21:11)
[2018-11-11] MEDS: MIDODRINE HCL 5 MG TABLET GT SCH ×3 (10:18→17:17)
[2018-11-11] MEDS: MAGNESIUM OXIDE 400 MG TABLET (FP) GT SCH ×2 (10:18→21:11)
[2018-11-11] MEDS: AMANTADINE HCL 100 MG TABLET NR SCH (10:19)
[2018-11-11] MEDS: Lacosamide 50 MG/5 ML ORAL SOLUTION UNIT CUPS GT SCH ×2 (10:19→21:12)
[2018-11-11] MEDS: ENOXAPARIN NA (PORCINE) 30 MG/0.3 ML DISP.SYRIN SQ SCH (10:19)
[2018-11-11] MEDS: ASCORBIC ACID 500 MG/5 ML UNIT DOSE CUP GT SCH (10:19)
[2018-11-11] MEDS: SILVER SULFADIAZINE 1% TOP CREAM 50 GM JAR TP SCH ×2 (10:20→21:13)
--- NOTE | 2018-11-11 12:40 | PN ---
Progress Note (short form) - Note Progress Note: awake and no distress Vital Signs - 24 hr 11/10/18 11/10/18 11/10/18 16:20 20:38 20:50 Temperature 98.7 F 98.3 F Pulse Rate 78 79 Respiratory 18 18 17 Rate Blood Pressure 121/72 101/69 O2 Sat by Pulse 96 Oximetry (%) 11/11/18 11/11/18 07:00 08:30 Temperature 98.3 F 98.8 F Pulse Rate 88 73 Respiratory 20 20 Rate Blood Pressure 101/65 100/70 O2 Sat by Pulse Oximetry (%) Current Medications Generic Name Dose Route Start Last Admin Trade Name Freq PRN Reason Stop Dose Admin Acetaminophen 650 mg 11/07/18 10:02 11/09/18 13:20 Tylenol Oral Solution - GT 650 mg Q4H PRN Administration MODERATE PAIN Albuterol Sulfate 1 amp 11/07/18 01:07 Ventolin 0.083% Nebulizer Soln - NEB Q4H PRN SHORT OF BREATH/WHEEZING Amantadine HCl 100 mg 11/07/18 10:00 11/11/18 10:19 Symmetrel - NR 100 mg DAILY [facility] Administration Ascorbic Acid 500 mg 11/07/18 10:00 11/11/18 10:19 Vitamin C Oral Solution - GT 500 mg DAILY [facility] Administration Aspirin 81 mg 11/07/18 10:00 11/11/18 10:16 Asa - GT 81 mg DAILY [facility] Administration Atorvastatin Calcium 40 mg 11/07/18 22:00 11/10/18 21:42 Lipitor - GT 40 mg HS [facility] Administration Carbidopa/Levodopa 1 each 11/07/18 06:00 11/11/18 05:04 Sinemet 25/250 - GT 1 each TID [facility] Administration Chlorhexidine Gluconate 15 ml 11/07/18 22:00 11/10/18 21:43 Peridex - MM 15 ml HS [facility] Administration Enoxaparin Sodium 30 mg 11/07/18 10:00 11/11/18 10:19 Lovenox - SQ 30 mg DAILY [facility] Administration Folic Acid 1 mg 11/07/18 10:00 11/11/18 10:16 Folic Acid - GT 1 mg DAILY [facility] Administration Piperacillin Sod/Tazobactam 50 mls @ 100 mls/hr 11/07/18 18:00 11/11/18 10:13 Sod 3.375 gm/ Dextrose IVPB 100 mls/hr Q8H-IV [facility] Administration Protocol Ibuprofen 400 mg 11/10/18 10:43 Motrin - PO Q6H PRN FEVER Lacosamide 200 mg 11/07/18 10:00 11/11/18 10:19 Vimpat Liquid - GT 200 mg BID [facility] Administration Lactobacillus Acidophilus 1 tab 11/07/18 06:00 11/11/18 05:04 Bacid - GT 1 tab TID [facility] Administration Levetiracetam 500 mg 11/07/18 10:00 11/11/18 10:17 Keppra Oral Solution - GT 500 mg BID [facility] Administration Magnesium Oxide 400 mg 11/07/18 10:00 11/11/18 10:18 Mag-Ox - GT 400 mg BID [facility] Administration Midodrine 5 mg 11/07/18 10:00 11/11/18 10:18 Proamatine - GT 5 mg TID-MID [facility] Administration Mirtazapine 7.5 mg 11/07/18 22:00 11/10/18 21:44 Remeron - GT 7.5 mg HS [facility] Administration Multi-Ingredient Ointment 1 applic 11/07/18 08:39 11/11/18 05:05 Zinc Oxide TP 1 applic TID [facility] Administration Oxcarbazepine 300 mg 11/07/18 06:00 11/11/18 05:04 Trileptal PO 300 mg TID [facility] Administration Ranitidine HCl 150 mg 11/07/18 10:00 11/11/18 10:13 Zantac Oral Solution - PO 150 mg DAILY [facility] Administration Silver Sulfadiazine 1 applic 11/07/18 10:00 11/11/18 10:20 Silvadene - TP 1 applic BID [facility] Administration S1 S2 RRR Lungs decreased Abd- soft, GT+, ND No edema PLAN Fever-- unknown source-- ?aspiration one culture positive-- ?contaminant--cultures prepeated can not get LP as she is on ASA highly unlikely she has meningitis no diarrhea if spiking fever- will order CT scans CXR -- negative aspiration precautions Problem List - Problems (1) Fever, unknown origin Code(s): R50.9 - FEVER, UNSPECIFIED (2) Sepsis Code(s): A41.9 - SEPSIS, UNSPECIFIED ORGANISM (3) CVA (cerebral vascular accident) Code(s): I63.9 - CEREBRAL INFARCTION, UNSPECIFIED Qualifiers: CVA mechanism: unspecified Qualified Code(s): I63.9 - Cerebral infarction, unspecified
--- NOTE | 2018-11-11 18:58 | PN ---
Progress Note, Physician History of Present Illness: Pt seen and examined, chart reviewed, results noted. Pt is alert, responsive, without distress. Fever resolved on antibiotics. - Current Medication List Current Medications: Active Medications Acetaminophen (Tylenol Oral Solution -) 650 mg GT Q4H PRN PRN Reason: MODERATE PAIN Last Admin: 11/09/18 13:20 Dose: 650 mg Albuterol Sulfate (Ventolin 0.083% Nebulizer Soln -) 1 amp NEB Q4H PRN PRN Reason: SHORT OF BREATH/WHEEZING Amantadine HCl (Symmetrel -) 100 mg NR DAILY [facility] Last Admin: 11/11/18 10:19 Dose: 100 mg Ascorbic Acid (Vitamin C Oral Solution -) 500 mg GT DAILY [facility] Last Admin: 11/11/18 10:19 Dose: 500 mg Aspirin (Asa -) 81 mg GT DAILY [facility] Last Admin: 11/11/18 10:16 Dose: 81 mg Atorvastatin Calcium (Lipitor -) 40 mg GT HS [facility] Last Admin: 11/10/18 21:42 Dose: 40 mg Carbidopa/Levodopa (Sinemet 25/250 -) 1 each GT TID [facility] Last Admin: 11/11/18 13:16 Dose: 1 each Chlorhexidine Gluconate (Peridex -) 15 ml MM HS [facility] Last Admin: 11/10/18 21:43 Dose: 15 ml Enoxaparin Sodium (Lovenox -) 30 mg SQ DAILY [facility] Last Admin: 11/11/18 10:19 Dose: 30 mg Folic Acid (Folic Acid -) 1 mg GT DAILY [facility] Last Admin: 11/11/18 10:16 Dose: 1 mg Piperacillin Sod/Tazobactam (Sod 3.375 gm/ Dextrose) 50 mls @ 100 mls/hr IVPB Q8H-IV [facility]; Protocol Last Admin: 11/11/18 17:17 Dose: 100 mls/hr Ibuprofen (Motrin -) 400 mg PO Q6H PRN PRN Reason: FEVER Lacosamide (Vimpat Liquid -) 200 mg GT BID [facility] Last Admin: 11/11/18 10:19 Dose: 200 mg Lactobacillus Acidophilus (Bacid -) 1 tab GT TID [facility] Last Admin: 11/11/18 13:16 Dose: 1 tab Levetiracetam (Keppra Oral Solution -) 500 mg GT BID [facility] Last Admin: 11/11/18 10:17 Dose: 500 mg Magnesium Oxide (Mag-Ox -) 400 mg GT BID [facility] Last Admin: 11/11/18 10:18 Dose: 400 mg Midodrine (Proamatine -) 5 mg GT TID-MID [facility] Last Admin: 11/11/18 17:17 Dose: 5 mg Mirtazapine (Remeron -) 7.5 mg GT HS [facility] Last Admin: 11/10/18 21:44 Dose: 7.5 mg Multi-Ingredient Ointment (Zinc Oxide) 1 applic TP TID [facility] Last Admin: 11/11/18 13:17 Dose: 1 applic Oxcarbazepine (Trileptal) 300 mg PO TID [facility] Last Admin: 11/11/18 13:15 Dose: 300 mg Ranitidine HCl (Zantac Oral Solution -) 150 mg PO DAILY [facility] Last Admin: 11/11/18 10:13 Dose: 150 mg Silver Sulfadiazine (Silvadene -) 1 applic TP BID [facility] Last Admin: 11/11/18 10:20 Dose: 1 applic - Objective Vital Signs: Vital Signs Temperature 98.6 F 11/11/18 15:33 Pulse Rate 74 11/11/18 15:33 Respiratory Rate 20 11/11/18 15:33 Blood Pressure 100/70 11/11/18 08:30 O2 Sat by Pulse Oximetry (%) 96 11/10/18 20:38 Constitutional: Yes: No Distress, Calm Cardiovascular: Yes: Regular Rate and Rhythm Respiratory: Yes: CTA Bilaterally Gastrointestinal: Yes: Normal Bowel Sounds, Soft, Other (peg) Genitourinary: Yes: Incontinence Integumentary: Yes: Pressure Ulcer (small sacral st II DU - no drainage/malodor) Neurological: Yes: Alert Labs: CBC, BMP 11/10/18 06:30 11/10/18 06:30 INR, PTT INR 1.15 (0.83-1.09) H 11/06/18 19:00 Microbiology 11/06/18 19:20 Blood - Peripheral Venous Blood Culture - Preliminary NO GROWTH OBTAINED AFTER 96 HOURS, INCUBATION TO CONTINUE FOR 1 DAYS. 11/06/18 19:00 Blood - Peripheral Venous Blood Culture - Preliminary Staphylococcus Coagulase Neg 11/06/18 20:00 Urine - Urine - Catheterized Urine Culture - Final NO GROWTH OBTAINED - ....Imaging Chest X-ray: Report Reviewed Cat Scan: Report Reviewed Problem List - Problems (1) Fever, unknown origin Code(s): R50.9 - FEVER, UNSPECIFIED (2) NICOLÁS (acute kidney injury) Code(s): N17.9 - ACUTE KIDNEY FAILURE, UNSPECIFIED (3) CVA (cerebral vascular accident) Code(s): I63.9 - CEREBRAL INFARCTION, UNSPECIFIED Qualifiers: CVA mechanism: unspecified Qualified Code(s): I63.9 - Cerebral infarction, unspecified (4) Seizure Code(s): R56.9 - UNSPECIFIED CONVULSIONS Assessment/Plan Fever - ? aspiration Sepsis AMS Seizure d.o. Hx CVA HTN HLD -- culture results noted, f/u repeat blood cultures (initial likely contaminated ) -- continue Zosyn for now -- fever resolved, pt alert -- aspiration precautions
[2018-11-11] MEDS: ATORVASTATIN CA 40 MG TABLET (FP) GT SCH (21:11)
[2018-11-11] MEDS: MIRTAZAPINE 15 MG TABLET (FP) GT SCH (21:12)
[2018-11-11] MEDS: CHLORHEXIDINE GLUCONATE 0.12% 15ML CUP MM SCH (21:12)
[2018-11-12] MEDS: PIPERACILLIN/TAZOB 3.375 GM 3.375 GM in DEXTROSE 5%-WATER - 50 ML IVPB SCH ×3 (01:16→17:26)
[2018-11-12] MEDS ORDERED: PIPERACILLIN/TAZOBACTAM 3.375 GM VIAL IVPB ONE ×4 (01:27→23:44)
[2018-11-12] MEDS ORDERED: DEXTROSE 5%-WATER - 50 ML IVPB ONE ×4 (01:27→23:44)
[2018-11-12] MEDS: CARBIDOPA/LEVODOPA 25/250 TABLET (FP) GT SCH ×3 (05:54→21:35)
[2018-11-12] MEDS: LACTOBACILLUS ACIDOPHILUS 1 TABLET GT SCH ×3 (05:54→21:34)
[2018-11-12] MEDS: OXcarbazepine 300 MG/5 ML 250 ML BULK BOTTLE PO SCH ×3 (05:54→21:34)
[2018-11-12] MEDS: ZINC OXIDE 20% TOPICAL OINTMENT 30 GM TUBE TP SCH ×3 (05:55→21:37)
[2018-11-12] MEDS: RANITIDINE HCL 150 MG/10 ML UNIT-DOSE PO SCH (09:44)
[2018-11-12] MEDS: FOLIC ACID 1 MG TABLET (FP) GT SCH (09:47)
[2018-11-12] MEDS: ASPIRIN 81 MG CHEWABLE TABLETS GT SCH (09:47)
[2018-11-12] MEDS: levETIRAcetam 500 MG/5 ML ORAL SOLUTION (UNIT-DOSE CUPS) GT SCH ×2 (09:48→21:34)
[2018-11-12] MEDS: MAGNESIUM OXIDE 400 MG TABLET (FP) GT SCH ×2 (09:48→21:35)
[2018-11-12] MEDS: MIDODRINE HCL 5 MG TABLET GT SCH ×3 (09:48→17:27)
[2018-11-12] MEDS: ASCORBIC ACID 500 MG/5 ML UNIT DOSE CUP GT SCH (09:50)
[2018-11-12] MEDS: Lacosamide 50 MG/5 ML ORAL SOLUTION UNIT CUPS GT SCH ×2 (09:50→21:35)
[2018-11-12] MEDS: SILVER SULFADIAZINE 1% TOP CREAM 50 GM JAR TP SCH ×2 (09:51→21:36)
[2018-11-12] MEDS: ENOXAPARIN NA (PORCINE) 30 MG/0.3 ML DISP.SYRIN SQ SCH (09:51)
[2018-11-12] MEDS: AMANTADINE HCL 100 MG TABLET NR SCH (09:51)
--- NOTE | 2018-11-12 10:07 | PN ---
Progress Note (short form) - Note Progress Note: awake and no distress Vital Signs - 24 hr 11/11/18 11/11/18 11/12/18 17:45 21:00 07:25 Temperature 97.9 F 97.9 F Pulse Rate 81 82 Respiratory 20 20 Rate Blood Pressure 125/66 108/64 O2 Sat by Pulse 96 Oximetry (%) 11/12/18 11/12/18 08:35 15:12 Temperature 98.8 F 98.1 F Pulse Rate 70 74 Respiratory 20 20 Rate Blood Pressure 110/80 O2 Sat by Pulse Oximetry (%) Current Medications Generic Name Dose Route Start Last Admin Trade Name Freq PRN Reason Stop Dose Admin Acetaminophen 650 mg 11/07/18 10:02 11/09/18 13:20 Tylenol Oral Solution - GT 650 mg Q4H PRN Administration MODERATE PAIN Amantadine HCl 100 mg 11/07/18 10:00 11/12/18 09:51 Symmetrel - NR 100 mg DAILY [facility] Administration Ascorbic Acid 500 mg 11/07/18 10:00 11/12/18 09:50 Vitamin C Oral Solution - GT 500 mg DAILY [facility] Administration Aspirin 81 mg 11/07/18 10:00 11/12/18 09:47 Asa - GT 81 mg DAILY [facility] Administration Atorvastatin Calcium 40 mg 11/07/18 22:00 11/11/18 21:11 Lipitor - GT 40 mg HS [facility] Administration Carbidopa/Levodopa 1 each 11/07/18 06:00 11/12/18 13:41 Sinemet 25/250 - GT 1 each TID [facility] Administration Chlorhexidine Gluconate 15 ml 11/07/18 22:00 11/11/18 21:12 Peridex - MM Not Given HS [facility] Enoxaparin Sodium 30 mg 11/07/18 10:00 11/12/18 09:51 Lovenox - SQ 30 mg DAILY [facility] Administration Folic Acid 1 mg 11/07/18 10:00 11/12/18 09:47 Folic Acid - GT 1 mg DAILY [facility] Administration Piperacillin Sod/Tazobactam 50 mls @ 100 mls/hr 11/07/18 18:00 11/12/18 17:26 Sod 3.375 gm/ Dextrose IVPB 100 mls/hr Q8H-IV [facility] Administration Protocol Ibuprofen 400 mg 11/10/18 10:43 Motrin - PO Q6H PRN FEVER Lacosamide 200 mg 11/07/18 10:00 11/12/18 09:50 Vimpat Liquid - GT 200 mg BID [facility] Administration Lactobacillus Acidophilus 1 tab 11/07/18 06:00 11/12/18 13:41 Bacid - GT 1 tab TID [facility] Administration Levetiracetam 500 mg 11/07/18 10:00 11/12/18 09:48 Keppra Oral Solution - GT 500 mg BID [facility] Administration Magnesium Oxide 400 mg 11/07/18 10:00 11/12/18 09:48 Mag-Ox - GT 400 mg BID [facility] Administration Midodrine 5 mg 11/07/18 10:00 11/12/18 17:27 Proamatine - GT 5 mg TID-MID [facility] Administration Mirtazapine 7.5 mg 11/07/18 22:00 11/11/18 21:12 Remeron - GT 7.5 mg HS [facility] Administration Multi-Ingredient Ointment 1 applic 11/07/18 08:39 11/12/18 13:41 Zinc Oxide TP 1 applic TID [facility] Administration Oxcarbazepine 300 mg 11/07/18 06:00 11/12/18 13:40 Trileptal PO 300 mg TID [facility] Administration Ranitidine HCl 150 mg 11/07/18 10:00 11/12/18 09:44 Zantac Oral Solution - PO 150 mg DAILY [facility] Administration Silver Sulfadiazine 1 applic 11/07/18 10:00 11/12/18 09:51 Silvadene - TP 1 applic BID [facility] Administration S1 S2 RRR Lungs decreased Abd- soft, GT+, ND No edema PLAN Fever-- unknown source-- ?aspiration one culture positive-- ?contaminant--cultures repeated are negative can not get LP as she is on ASA highly unlikely she has meningitis no diarrhea afebrile at baseline mental status dc planning CXR -- negative aspiration precautions Problem List - Problems (1) Fever, unknown origin Code(s): R50.9 - FEVER, UNSPECIFIED (2) Sepsis Code(s): A41.9 - SEPSIS, UNSPECIFIED ORGANISM (3) CVA (cerebral vascular accident) Code(s): I63.9 - CEREBRAL INFARCTION, UNSPECIFIED Qualifiers: CVA mechanism: unspecified Qualified Code(s): I63.9 - Cerebral infarction, unspecified
[2018-11-12] MEDS ORDERED: PT OWN MED DRAWER 7, Y5N ONE ×2 (13:15→13:36)
--- NOTE | 2018-11-12 17:38 | PN ---
Progress Note, Physician History of Present Illness: Pt afebrile, without distress. Denies SOB/CP/VILCHIS. - Current Medication List Current Medications: Active Medications Acetaminophen (Tylenol Oral Solution -) 650 mg GT Q4H PRN PRN Reason: MODERATE PAIN Last Admin: 11/09/18 13:20 Dose: 650 mg Amantadine HCl (Symmetrel -) 100 mg NR DAILY [facility] Last Admin: 11/12/18 09:51 Dose: 100 mg Ascorbic Acid (Vitamin C Oral Solution -) 500 mg GT DAILY [facility] Last Admin: 11/12/18 09:50 Dose: 500 mg Aspirin (Asa -) 81 mg GT DAILY [facility] Last Admin: 11/12/18 09:47 Dose: 81 mg Atorvastatin Calcium (Lipitor -) 40 mg GT HS [facility] Last Admin: 11/11/18 21:11 Dose: 40 mg Carbidopa/Levodopa (Sinemet 25/250 -) 1 each GT TID [facility] Last Admin: 11/12/18 13:41 Dose: 1 each Chlorhexidine Gluconate (Peridex -) 15 ml MM HS [facility] Last Admin: 11/11/18 21:12 Dose: Not Given Folic Acid (Folic Acid -) 1 mg GT DAILY [facility] Last Admin: 11/12/18 09:47 Dose: 1 mg Piperacillin Sod/Tazobactam (Sod 3.375 gm/ Dextrose) 50 mls @ 100 mls/hr IVPB Q8H-IV [facility]; Protocol Last Admin: 11/12/18 17:26 Dose: 100 mls/hr Ibuprofen (Motrin -) 400 mg PO Q6H PRN PRN Reason: FEVER Lacosamide (Vimpat Liquid -) 200 mg GT BID [facility] Last Admin: 11/12/18 09:50 Dose: 200 mg Lactobacillus Acidophilus (Bacid -) 1 tab GT TID [facility] Last Admin: 11/12/18 13:41 Dose: 1 tab Levetiracetam (Keppra Oral Solution -) 500 mg GT BID [facility] Last Admin: 11/12/18 09:48 Dose: 500 mg Magnesium Oxide (Mag-Ox -) 400 mg GT BID [facility] Last Admin: 11/12/18 09:48 Dose: 400 mg Midodrine (Proamatine -) 5 mg GT TID-MID [facility] Last Admin: 11/12/18 17:27 Dose: 5 mg Mirtazapine (Remeron -) 7.5 mg GT HS [facility] Last Admin: 11/11/18 21:12 Dose: 7.5 mg Multi-Ingredient Ointment (Zinc Oxide) 1 applic TP TID [facility] Last Admin: 11/12/18 13:41 Dose: 1 applic Oxcarbazepine (Trileptal) 300 mg PO TID [facility] Last Admin: 11/12/18 13:40 Dose: 300 mg Ranitidine HCl (Zantac Oral Solution -) 150 mg PO DAILY [facility] Last Admin: 11/12/18 09:44 Dose: 150 mg Silver Sulfadiazine (Silvadene -) 1 applic TP BID [facility] Last Admin: 11/12/18 09:51 Dose: 1 applic - Objective Vital Signs: Vital Signs Temperature 98.1 F 11/12/18 15:12 Pulse Rate 74 11/12/18 15:12 Respiratory Rate 20 11/12/18 15:12 Blood Pressure 110/80 11/12/18 08:35 O2 Sat by Pulse Oximetry (%) 96 11/11/18 21:00 Constitutional: Yes: No Distress Cardiovascular: Yes: Regular Rate and Rhythm Respiratory: Yes: Regular Gastrointestinal: Yes: Normal Bowel Sounds, Soft Genitourinary: Yes: WNL Integumentary: Yes: WNL Neurological: Yes: Alert Labs: CBC, BMP 11/10/18 06:30 11/10/18 06:30 INR, PTT INR 1.15 (0.83-1.09) H 11/06/18 19:00 Microbiology 11/06/18 19:00 Blood - Peripheral Venous Blood Culture - Final Staphylococcus Auricularis 11/11/18 07:00 Blood - Peripheral Venous Blood Culture - Preliminary NO GROWTH OBTAINED AFTER 24 HOURS, INCUBATION TO CONTINUE FOR 4 DAYS. 11/11/18 06:00 Blood - Peripheral Venous Blood Culture - Preliminary NO GROWTH OBTAINED AFTER 24 HOURS, INCUBATION TO CONTINUE FOR 4 DAYS. 11/06/18 19:20 Blood - Peripheral Venous Blood Culture - Final NO GROWTH AFTER 5 DAYS INCUBATION 11/06/18 20:00 Urine - Urine - Catheterized Urine Culture - Final NO GROWTH OBTAINED Problem List - Problems (1) Fever, unknown origin Code(s): R50.9 - FEVER, UNSPECIFIED (2) NICOL[place]S (acute kidney injury) Code(s): N17.9 - ACUTE KIDNEY FAILURE, UNSPECIFIED (3) CVA (cerebral vascular accident) Code(s): I63.9 - CEREBRAL INFARCTION, UNSPECIFIED Qualifiers: CVA mechanism: unspecified Qualified Code(s): I63.9 - Cerebral infarction, unspecified (4) Seizure Code(s): R56.9 - UNSPECIFIED CONVULSIONS Assessment/Plan Fever - ? aspiration Sepsis AMS Seizure d.o. Hx CVA HTN HLD -- initial blood culture results likely contaminant, repeat blood cultures negative -- plan to d/c antibiotics tomorrow -- Pt is afebrile, alert, without distress -- aspiration precautions
[2018-11-12 18:55] LABS: HEMATOCRIT 28.4 % (32.4-45.2); HEMOGLOBIN 9.7 GM/dL (10.7-15.3); MCH 31.6 pg (25.7-33.7); MCHC 34.1 g/dl (32.0-36.0); MEAN CELL VOLUME 92.8 fl (80-96); MEAN PLT VOLUME 10.3 fl (7.5-11.1); PLATELET COUNT 125 K/MM3 (134-434); RBC 3.06 M/mm3 (3.60-5.2); RDW 15.7 % (11.6-15.6); WHITE BLOOD COUNT 9.5 K/mm3 (4.0-10.0)
[2018-11-12] MEDS: ATORVASTATIN CA 40 MG TABLET (FP) GT SCH (21:34)
[2018-11-12] MEDS: MIRTAZAPINE 15 MG TABLET (FP) GT SCH (21:35)
[2018-11-12] MEDS: CHLORHEXIDINE GLUCONATE 0.12% 15ML CUP MM SCH (21:36)
[2018-11-13] MEDS: PIPERACILLIN/TAZOB 3.375 GM 3.375 GM in DEXTROSE 5%-WATER - 50 ML IVPB SCH ×2 (01:53→09:49)
[2018-11-13] MEDS ORDERED: PT OWN MED DRAWER 7, Y5N ONE ×3 (05:15→13:26)
[2018-11-13] MEDS: OXcarbazepine 300 MG/5 ML 250 ML BULK BOTTLE PO SCH ×2 (05:37→13:15)
[2018-11-13] MEDS: CARBIDOPA/LEVODOPA 25/250 TABLET (FP) GT SCH ×2 (05:37→13:16)
[2018-11-13] MEDS: LACTOBACILLUS ACIDOPHILUS 1 TABLET GT SCH ×2 (05:37→13:15)
[2018-11-13] MEDS: ZINC OXIDE 20% TOPICAL OINTMENT 30 GM TUBE TP SCH ×2 (05:39→13:16)
[2018-11-13 07:04] LABS: BASO % 1.1 % (0-2.0); EOS % 3.3 % (0-4.5); HEMATOCRIT 28.5 % (32.4-45.2); HEMOGLOBIN 9.9 GM/dL (10.7-15.3); LYMPH % 42.2 % (8-40); MCHC 34.6 g/dl (32.0-36.0); MEAN CELL VOLUME 95.3 fl (80-96); MEAN PLT VOLUME 10.4 fl (7.5-11.1); MONO % 7.9 % (3.8-10.2); NEUT % 45.5 % (42.8-82.8); PLATELET COUNT 122 K/MM3 (134-434); RBC 2.99 M/mm3 (3.60-5.2); RDW 15.9 % (11.6-15.6); WHITE BLOOD COUNT 7.2 K/mm3 (4.0-10.0)
[2018-11-13 07:41] LABS: ALBUMIN 2.6 g/dl (3.4-5.0); ALK PHOS 153 U/L (45-117); ANION GAP 5 MMOL/L (8-16); BILIRUBIN,TOTAL 0.4 mg/dL (0.2-1); BLOOD UREA NITROGEN 14 mg/dL (7-18); CALCIUM 8.9 mg/dL (8.5-10.1); CHLORIDE 110 mmol/L (98-107); CO2 29 mmol/L (21-32); CREATININE 0.6 mg/dL (0.55-1.3); GLUCOSE,RANDOM 107 mg/dL (74-106); POTASSIUM 3.9 mmol/L (3.5-5.1); SGOT/AST 31 U/L (15-37); SGPT/ALT 18 U/L (13-61); SODIUM 144 mmol/L (136-145); TOT PROT 6.9 g/dl (6.4-8.2)
--- NOTE | 2018-11-13 09:16 | DS ---
Physical Examination Vital Signs: Vital Signs Temperature 97.8 F 11/13/18 06:18 Pulse Rate 60 11/13/18 06:18 Respiratory Rate 18 11/13/18 06:18 Blood Pressure 101/60 11/13/18 06:18 O2 Sat by Pulse Oximetry (%) 96 11/12/18 21:00 Findings/Remarks: pt seen/ examined chart reviewed awake/ comfotable no distress afebrile Constitutional: Yes: No Distress Eyes: Yes: Conjunctiva Clear Neck: Yes: Supple Cardiovascular: Yes: Regular Rate and Rhythm Respiratory: Yes: CTA Bilaterally Gastrointestinal: Yes: Soft, Other ( g tube) Extremities: Yes: Other (heel pads) Edema: No Neurological: Yes: Other (awake/) Labs: CBC, BMP 11/13/18 06:00 11/13/18 06:00 Discharge Summary Reason For Visit: FEVER OF UNKNOWN ORIGIN Current Active Problems Fever, unknown origin (Acute) Sepsis (Acute) Hospital Course: Admission records-- Reviewed This is a 67 year old female with past medical history of hypertension, hyperlipidemia, seizure disorder, epilepsy, GERD, frequent UTIs, sepsis, anemia , dysphagia with peg tube and TIA's/CVA who was BIBA from [facility] presenting with fever, elevated blood pressures, and an altered mental status.Upon evaluation in the ER she was found to have a fever of 102.4. She has a normal WBC and an elevated lactic acid level of 3.5. Urinalysis, influena and CXR were normal. Lumbar puncture was attempted in the the ER but reported was difficult to do due to difficulty positioning patient. pt treated with abx i/d followed b/c believed to be contaminant overall stable and back to baseline will d/c back to usp Lovenox held due to low platlets -- Monitor Meds reconcillled will discharge off abx discussed with nursing staff also Condition: Stable - Instructions Disposition: ALF FACILITY - Home Medications Comprehensive Discharge Medication List: Ambulatory Orders Acetaminophen 325 mg GT Q4H PRN 09/22/17 Atorvastatin Ca [Lipitor] 40 mg GT HS 12/11/17 Zinc Oxide 20% Topical Oint 454 gm NR TID 12/11/17 levETIRAcetam [Keppra Oral Solution -] 500 mg GT BID 12/11/17 Albuterol 0.083% Nebulizer Hanane [Ventolin 0.083% Nebulizer Soln -] 1 amp NEB Q4H PRN amp 12/24/17 Amantadine HCl [Amantadine] 100 mg GT DAILY 11/06/18 Ascorbic Acid [Vitamin C] 500 mg GT DAILY 11/06/18 Aspirin [ASA -] 81 mg GT DAILY 11/06/18 Carbidopa/Levodopa [Carbidopa-Levodopa 25-250 Tab] 1 each GT TID 11/06/18 Chlorhexidine Gluconate 15 ml TT HS 11/06/18 Folic Acid 1 mg GT DAILY 11/06/18 Furosemide 20 mg GT DAILY 11/06/18 Lacosamide [Vimpat] 200 mg GT BID 11/06/18 Lactobacillus Acidophilus [Bacid -] 1 each GT TID 11/06/18 Magnesium Oxide 400 mg GT BID 11/06/18 Midodrine HCl [Proamatine -] 5 mg GT TID-MID 11/06/18 Mirtazapine 7.5 mg GT DAILY 11/06/18 Oxcarbazepine 300 mg GT TID 11/06/18 Ranitidine HCl [Zantac] 150 mg GT DAILY 11/06/18 Silver Sulfadiazine [Silvadene] 1 applic TP BID 11/06/18 Valproic Acid [Depakene] 1,250 mg GT BID 11/06/18
[2018-11-13] MEDS ORDERED: PIPERACILLIN/TAZOBACTAM 3.375 GM VIAL IVPB ONE (09:37)
[2018-11-13] MEDS ORDERED: DEXTROSE 5%-WATER - 50 ML IVPB ONE (09:38)
[2018-11-13] MEDS: RANITIDINE HCL 150 MG/10 ML UNIT-DOSE PO SCH (09:48)
[2018-11-13] MEDS: ASPIRIN 81 MG CHEWABLE TABLETS GT SCH (09:49)
[2018-11-13] MEDS: levETIRAcetam 500 MG/5 ML ORAL SOLUTION (UNIT-DOSE CUPS) GT SCH (09:50)
[2018-11-13] MEDS: FOLIC ACID 1 MG TABLET (FP) GT SCH (09:50)
[2018-11-13] MEDS: MAGNESIUM OXIDE 400 MG TABLET (FP) GT SCH (09:50)
[2018-11-13] MEDS: MIDODRINE HCL 5 MG TABLET GT SCH ×2 (09:51→13:16)
[2018-11-13] MEDS: Lacosamide 50 MG/5 ML ORAL SOLUTION UNIT CUPS GT SCH (09:51)
[2018-11-13] MEDS: SILVER SULFADIAZINE 1% TOP CREAM 50 GM JAR TP SCH (09:52)
[2018-11-13] MEDS: AMANTADINE HCL 100 MG TABLET NR SCH (09:52)
[2018-11-13] MEDS: ASCORBIC ACID 500 MG/5 ML UNIT DOSE CUP GT SCH (09:52)
--- NOTE | 2018-11-13 10:32 | PN ---
Progress Note, Physician History of Present Illness: stable no new issues comfortable - Current Medication List Current Medications: Active Medications Acetaminophen (Tylenol Oral Solution -) 650 mg GT Q4H PRN PRN Reason: MODERATE PAIN Last Admin: 11/09/18 13:20 Dose: 650 mg Amantadine HCl (Symmetrel -) 100 mg NR DAILY [facility] Last Admin: 11/13/18 09:52 Dose: 100 mg Ascorbic Acid (Vitamin C Oral Solution -) 500 mg GT DAILY [facility] Last Admin: 11/13/18 09:52 Dose: 500 mg Aspirin (Asa -) 81 mg GT DAILY [facility] Last Admin: 11/13/18 09:49 Dose: 81 mg Atorvastatin Calcium (Lipitor -) 40 mg GT HS [facility] Last Admin: 11/12/18 21:34 Dose: 40 mg Carbidopa/Levodopa (Sinemet 25/250 -) 1 each GT TID [facility] Last Admin: 11/13/18 05:37 Dose: 1 each Chlorhexidine Gluconate (Peridex -) 15 ml MM HS [facility] Last Admin: 11/12/18 21:36 Dose: 15 ml Folic Acid (Folic Acid -) 1 mg GT DAILY [facility] Last Admin: 11/13/18 09:50 Dose: 1 mg Piperacillin Sod/Tazobactam (Sod 3.375 gm/ Dextrose) 50 mls @ 100 mls/hr IVPB Q8H-IV [facility]; Protocol Last Admin: 11/13/18 09:49 Dose: 100 mls/hr Ibuprofen (Motrin -) 400 mg PO Q6H PRN PRN Reason: FEVER Lacosamide (Vimpat Liquid -) 200 mg GT BID [facility] Last Admin: 11/13/18 09:51 Dose: 200 mg Lactobacillus Acidophilus (Bacid -) 1 tab GT TID [facility] Last Admin: 11/13/18 05:37 Dose: 1 tab Levetiracetam (Keppra Oral Solution -) 500 mg GT BID [facility] Last Admin: 11/13/18 09:50 Dose: 500 mg Magnesium Oxide (Mag-Ox -) 400 mg GT BID [facility] Last Admin: 11/13/18 09:50 Dose: 400 mg Midodrine (Proamatine -) 5 mg GT TID-MID [facility] Last Admin: 11/13/18 09:51 Dose: 5 mg Mirtazapine (Remeron -) 7.5 mg GT HS [facility] Last Admin: 11/12/18 21:35 Dose: 7.5 mg Multi-Ingredient Ointment (Zinc Oxide) 1 applic TP TID [facility] Last Admin: 11/13/18 05:39 Dose: 1 applic Oxcarbazepine (Trileptal) 300 mg PO TID [facility] Last Admin: 11/13/18 05:37 Dose: 300 mg Ranitidine HCl (Zantac Oral Solution -) 150 mg PO DAILY [facility] Last Admin: 11/13/18 09:48 Dose: 150 mg Silver Sulfadiazine (Silvadene -) 1 applic TP BID [facility] Last Admin: 11/13/18 09:52 Dose: 1 applic - Objective Vital Signs: Vital Signs Temperature 97.8 F 11/13/18 06:18 Pulse Rate 60 11/13/18 06:18 Respiratory Rate 18 11/13/18 06:18 Blood Pressure 101/60 11/13/18 06:18 O2 Sat by Pulse Oximetry (%) 96 11/12/18 21:00 Constitutional: Yes: No Distress, Calm Cardiovascular: Yes: Regular Rate and Rhythm Respiratory: Yes: Regular, CTA Bilaterally Gastrointestinal: Yes: Normal Bowel Sounds, Soft Musculoskeletal: Yes: WNL Extremities: Yes: WNL Neurological: Yes: Alert Labs: CBC, BMP 11/13/18 06:00 11/13/18 06:00 INR, PTT INR 1.15 (0.83-1.09) H 11/06/18 19:00 Assessment/Plan Problem List - Problems (1) Fever, unknown origin Code(s): R50.9 - FEVER, UNSPECIFIED (2) Sepsis Code(s): A41.9 - SEPSIS, UNSPECIFIED ORGANISM (3) CVA (cerebral vascular accident) Code(s): I63.9 - CEREBRAL INFARCTION, UNSPECIFIED Qualifiers: CVA mechanism: unspecified Qualified Code(s): I63.9 - Cerebral infarction, unspecified 4 pain plan can stop all abx continue to monitor rest as per the team patient stable
[2018-11-13 11:15] VITALS: BP 90/60; TEMP 98.8
[2018-11-13 12:35] VITALS: PULSE 65
== END 2018-11-13 14:22 | DRG 722 ==
LOC: JER 17:42 → JERBED 11-07 00:08 → J7W 11-07 14:52 → J8W 11-08 14:51
PROVIDERS: ADMIT Internal Medicine; ATTEND Internal Medicine
PROC: 009U3ZX Drainage of Spinal Canal, Percutaneous Approach, Diagnostic (ICD-10-PCS; principal; 2018-11-07)
DX: R50.9 Fever, unspecified (principal); I10 Essential (primary) hypertension; E78.5 Hyperlipidemia, unspecified; G40.909 Epilepsy, unspecified, not intractable, without status epilepticus; K21.9 Gastro-esophageal reflux disease without esophagitis; D64.9 Anemia, unspecified; F32.9 Major depressive disorder, single episode, unspecified; E78.00 Pure hypercholesterolemia, unspecified; R13.10 Dysphagia, unspecified; L89.152 Pressure ulcer of sacral region, stage 2; E87.0 Hyperosmolality and hypernatremia; R41.82 Altered mental status, unspecified; Z86.73 Personal history of transient ischemic attack (TIA), and cerebral infarction without residual deficits; Z93.1 Gastrostomy status
CPT/HCPCS: 36415; 70450-TC; 71045-TC-FY; 80048; 80053; 81003; 83605; 83735; 84484; 85025; 85027; 85610; 85730; 86850; 86900; 86901; 87040; 87086; 87186; 87804; 93005; 93010; 99285-25; E0186; J0131; J7030

== ENCOUNTER 2019-01-28 14:24 | Emergency (ER) | payer SELFPAY ==
[2019-01-28 14:53] VITALS: BMI 27.4
--- NOTE | 2019-01-28 15:10 | PDOC ---
History of Present Illness - General History Source: Patient Exam Limitations: Clinical Condition - History of Present Illness Initial Comments: History is limited bc patient is non-verbal Joe Isidro is a 67 year old non-verbal female with a pmh of HTN, HLD, seizure disorder, epilepsy - on depakote, Keppra and lacosamide, GERD, frequent UTIs, sepsis, anemia, TIAs dysphagia with peg tube and CVA, who was BIB longterm EMS from [facility] presenting for replacement of the G-tube. The [place] papers report that the patient inadvertently misplaced her G-tube, so the resident staff at [facility] took her G-tube out and placed a 16 iranian bingham cather in the tract, then sent her to the ED for G-tube replacement. PCP: Lyndon Akbar PSH: PEG tube placement Social Hx: [facility] resident. No smoking, drinking, or other substance usage. Allergies: NKA, NKDA <Neno Jeffries - Last Filed: 01/28/19 18:23> <Mary Parsons - Last Filed: 01/29/19 21:58> - General Chief Complaint: G Tube Problem Stated Complaint: GTUBE REPLACEMENT Time Seen by Provider: 01/28/19 14:55 Past History - Past Medical History Anemia: No Asthma: Yes Cancer: No Cardiac Disorders: No CVA: Yes COPD: No CHF: No Dementia: Yes Diabetes: No GI Disorders: Yes (constipation, peg tube) Disorders: Yes (UTI) HTN: Yes Hypercholesterolemia: Yes Liver Disease: No Psychiatric Problems: Yes (depressive disorders) Seizures: Yes Thyroid Disease: No Lung CA: Yes (depression,) - Surgical History Abdominal Surgery: No Appendectomy: No Cardiac Surgery: No Cholecystectomy: No GI Surgery: Yes (gtube insertion) Lung Surgery: No Neurologic Surgery: No Orthopedic Surgery: No - Suicide/Smoking/Psychosocial Hx Smoking History: Never smoked Have you smoked in the past 12 months: No Hx Alcohol Use: No Drug/Substance Use Hx: No Substance Use Type: None Hx Substance Use Treatment: No (unknown) <Neno Jeffries - Last Filed: 01/28/19 18:23> <Mary Parsons - Last Filed: 01/29/19 21:58> - Past Medical History Allergies/Adverse Reactions: Allergies Allergy/AdvReac Type Severity Reaction Status Date / Time No Known Allergies Allergy Verified 11/06/18 18:03 Home Medications: Ambulatory Orders Acetaminophen 325 mg GT Q4H PRN 09/22/17 Atorvastatin Ca [Lipitor] 40 mg GT HS 12/11/17 Zinc Oxide 20% Topical Oint 454 gm NR TID 12/11/17 levETIRAcetam [Keppra Oral Solution -] 500 mg GT BID 12/11/17 Albuterol 0.083% Nebulizer Hanane [Ventolin 0.083% Nebulizer Soln -] 1 amp NEB Q4H PRN amp 12/24/17 Amantadine HCl [Amantadine] 100 mg GT DAILY 11/06/18 Ascorbic Acid [Vitamin C] 500 mg GT DAILY 11/06/18 Aspirin [ASA -] 81 mg GT DAILY 11/06/18 Carbidopa/Levodopa [Carbidopa-Levodopa 25-250 Tab] 1 each GT TID 11/06/18 Chlorhexidine Gluconate 15 ml TT HS 11/06/18 Folic Acid 1 mg GT DAILY 11/06/18 Furosemide 20 mg GT DAILY 11/06/18 Lacosamide [Vimpat] 200 mg GT BID 11/06/18 Lactobacillus Acidophilus [Bacid -] 1 each GT TID 11/06/18 Magnesium Oxide 400 mg GT BID 11/06/18 Midodrine HCl [Proamatine -] 5 mg GT TID-MID 11/06/18 Mirtazapine 7.5 mg GT DAILY 11/06/18 Oxcarbazepine 300 mg GT TID 11/06/18 Ranitidine HCl [Zantac] 150 mg GT DAILY 11/06/18 Silver Sulfadiazine [Silvadene] 1 applic TP BID 11/06/18 Valproic Acid [Depakene] 1,250 mg GT BID 11/06/18 Review of Systems - Review of Systems Able to Perform ROS?: No (Non-verbal) <Neno Jeffries - Last Filed: 01/28/19 18:23> *Physical Exam - Vital Signs Last Vital Signs Temp Pulse Resp BP Pulse Ox 98.8 F 74 18 137/72 100 01/28/19 14:41 01/28/19 14:41 01/28/19 14:41 01/28/19 14:41 01/28/19 14:41 - Physical Exam Comments: GENERAL: Bed-Bound, non-verbal, shaking her left hand. HEENT: Normocephalic, atraumatic. PERRL. CARDIOVASCULAR: Normal S1, S2. Regular rate and rhythm. PULMONARY: No evidence of respiratory distress. Lungs clear to auscultation bilaterally. No wheezing, rales or rhonchi. ABDOMEN: There is a 16 iranian bingham in the G-tube opening. No erythema or bleeding around site. Soft, non-distended, non-tender. EXTREMITIES: Limited ROM in all four extremities. No gross deformities. SKIN: Warm, dry. No rash Neurologic: positive: Respond to painful stimul <Neno Jeffries - Last Filed: 01/28/19 18:23> - Vital Signs Last Vital Signs Temp Pulse Resp BP Pulse Ox 98.1 F 86 18 144/82 96 01/28/19 18:33 01/28/19 19:20 01/28/19 19:20 01/28/19 19:20 01/28/19 19:20 <Mary Parsons - Last Filed: 01/29/19 21:58> Procedures - Additional Procedures Additional Procedures: gastric tube replacement (16 size G tube placed in patient. Post placement x-ray taken for confirmation. No complications. ) <Neno Jeffries - Last Filed: 01/28/19 18:23> ED Treatment Course - RADIOLOGY Radiology Studies Ordered: Category Date Time Status ABDOMEN-KUB FLAT PLATE [RAD] Stat Radiology 01/28/19 15:07 Completed <Mary Parsons - Last Filed: 01/29/19 21:58> Medical Decision Making - Medical Decision Making History is limited bc patient is non-verbal Joe Isidro is a 67 year old non-verbal female with a pmh of HTN, HLD, seizure disorder, epilepsy - on depakote, Keppra and lacosamide, GERD, frequent UTIs, sepsis, anemia, TIAs dysphagia with peg tube and CVA, who was BIB longterm EMS from [facility] presenting for replacement of the G-tube. The [place] papers report that the patient inadvertently misplaced her G-tube, so the resident staff at [facility] took her G-tube out and placed a 16 iranian bingham cather in the tract, then sent her to the ED for G-tube replacement. Vital Signs Temp Pulse Resp BP Pulse Ox 98.8 F 74 18 137/72 100 01/28/19 14:41 01/28/19 14:41 01/28/19 14:41 01/28/19 14:41 01/28/19 14:41 MDM: Patient presents for G-tube re-placement Plan: Remove bingham, insert new G-tube, G-tube xray for confirmation, dispo. G-tube film confirms proper placement. - Will send patient back to [facility]. <Neno Jeffries - Last Filed: 01/28/19 18:23> *DC/Admit/Observation/Transfer - Discharge Dispostion Decision to Admit order: No <Neno Jeffries - Last Filed: 01/28/19 18:23> <Mary Parsons - Last Filed: 01/29/19 21:58> Diagnosis at time of Disposition: Dislodged gastrostomy tube - Discharge Dispostion Disposition: DETENTION FACILITY Condition at time of disposition: Improved - Referrals Referrals: Lyndon Akbar MD [Primary Care Provider] - - Patient Instructions Printed Discharge Instructions: How to Care for Your PEG Tube Additional Instructions: You came into the ER for a G-tube replacement. We replaced your G-tube. Come back to the ER immediately if your G-tube comes out, you have abdominal pain, or any other new or worsening concerns. Please make sure to follow up with your primary doctor to make sure you are getting better and being taken care of. Thank you for coming to the [facility] ER. We hope you feel better soon! Print Language: MOHAWK - Post Discharge Activity
--- NOTE | 2019-01-28 15:34 | PDOC ---
Documentation entered by Shahida Robles SCRIBE, acting as scribe for Mary Parsons MD. Mary Parsons MD: This documentation has been prepared by the scribe, Shahida Robles SCRIBE, under my direction and personally reviewed by me in its entirety. I confirm that the documentation accurately reflects all work, treatment, procedures, and medical decision making performed by me. Attending Attestation - Resident Resident Name: Neno Jeffries - ED Attending Attestation I have performed the following: I have examined & evaluated the patient, The case was reviewed & discussed with the resident, I agree w/resident's findings & plan, Exceptions are as noted - HPI HPI: 01/28/19 15:25 The patient is a 68-year-old female from [facility], with a past medical history of anemia, HTN, HLD, GERD, frequent UTIs, TIAs, dysphagia with PEG tube , seizure disorder, epilepsy (on Depakote, Keppra, and Lacosamide), who presents to the ED with for G-tube replacement after it fell out today. Patient has a bingham in place. HPI is limited due to patient's clinical condition. Allergies: NKDA Social History: No reported tobacco, alcohol, or drug use. Surgical History: PEG tube placement. PCP: Dr. Lyndon Akbar. - Physicial Exam PE: 01/28/19 15:27 NAD, nonverbal, EOMI, PERRL, nl conjunctiva, anicteric; neck supple. no respiratory distress, abdomen soft nontender. epigastric located G tube site with bingham in place, no skin changes or purulence. contracted, DELEON x4, No peripheral edema. normal color for ethnicity, WWP. 01/28/19 15:32 - Medical Decision Making 01/28/19 15:33 VS reviewed, wnl. NAD performed with resident G tube dislodged, stoma intact w/o signs of infection. Area cleaned with betadine. 16 Malay G tube inserted with sterile lubricant, balloon inflated with 6cc saline. Flushed with saline and gastroview. Patency confirmed on Abdomen Xray. no extravasation. Site cleaned and covered with gauze. Pt tolerated bedside procedure well without complications. no abdomen sx/tenderness, doubt pathology discharge back to [facility] with new G tube in place 01/28/19 15:34
[2019-01-28 18:34] VITALS: TEMP 98.1
[2019-01-28 19:50] VITALS: BP 144/82; PULSE 86
== END 2019-01-28 19:50 ==
LOC: JER 14:24
PROC: 0D20XUZ Change Feeding Device in Upper Intestinal Tract, External Approach (ICD-10-PCS; principal; 2019-01-28)
DX: Z43.1 Encounter for attention to gastrostomy (principal); I10 Essential (primary) hypertension; E78.5 Hyperlipidemia, unspecified; G40.909 Epilepsy, unspecified, not intractable, without status epilepticus; F32.9 Major depressive disorder, single episode, unspecified; Z87.440 Personal history of urinary (tract) infections; Z86.73 Personal history of transient ischemic attack (TIA), and cerebral infarction without residual deficits
CPT/HCPCS: 74018-TC-FY; 99282-25

== ENCOUNTER 2019-04-03 13:47 | Inpatient (IN) | payer SELFPAY ==
[2019-04-03] MEDS ORDERED: ACETAMINOPHEN 1000 MG/100 ML VIAL (NON FORMULARY) IVPB ONE (14:31)
[2019-04-03] MEDS ORDERED: SODIUM CHLORIDE 0.9% 500 ML INFUS.BAG IV ONE (14:31)
--- NOTE | 2019-04-03 14:56 | PDOC ---
Attending Attestation - Resident Resident Name: Glenda Watts - ED Attending Attestation I have performed the following: I have examined & evaluated the patient, The case was reviewed & discussed with the resident, I agree w/resident's findings & plan, Exceptions are as noted - HPI HPI: 04/03/19 14:56 68y F hx of cva, CAD, FTT sp G-tube placement, anemia, sz, sent by [facility] for evaluation of fever. History limited as pt is nonverbal. Paperwork from [place] reviewed and was not veryhelpful (Sent for evaluation). - Physicial Exam PE: 04/03/19 16:04 GEneral: No acute distress, Extremitiy: Contractures, tremulous, +decubitus ulcer on R lateral mall and heel - appears clean, without eryhtmea/discharge/induration, BACK: +stage 4 ulcer measuring ~9cm with packing, foul smelling, Card: rrr, no mrg Pulm: cta b/l abd: mild guarding of suprapubic region - Critical Care Time Total Critical Care Time: 35 Critical Care Statement: The care of this patient involved high complexity decision making to prevent further life threatening deterioration of the patient 's condition and/or to evaluate & treat vital organ system(s) failure or risk of failure. - Medical Decision Making 04/03/19 16:19 sepsis - will seek source, pna, uti, possible from her sacral ulcer - if ua/cxr neg, anticipate CT abd to eval abd and ulcer. will start braod spectrum abx - 04/03/19 19:42 pt signed out to evening team to fu with results. if cxr/ua neg, anticipate CT abd to further evluation source of fever pts labs noted for significant leukocytosis and hypernatremia, likely seonday to free fluid deficit in addition to infection pt writtenfor broad spectrum abx Heart Score/ECG Review - ECG Impressions Comment:: 04/03/19 16:23 Twelve-lead EKG was performed and reviewed by me. There is normal sinus rhythm with a rate of 122 1st degree avl block pvcs present artifacts present
[2019-04-03 15:18] LABS: EPI CELLS 1.4 /HPF (0-5/HPF); HYALINE CASTS 1 /lpf (0-8); PH,URINE 6.5 (5.0-8.0); URINE APPEARANCE CLEAR; URINE BACTERIA 0.5 /hpf (NEGATIVE); URINE BILIRUBIN NEGATIVE (NEGATIVE); URINE COLOR YELLOW; URINE GLUCOSE (UA) NEGATIVE (NEGATIVE); URINE KETONE NEGATIVE (NEGATIVE); URINE LEUK ESTERASE TRACE (NEGATIVE); URINE NITRITE NEGATIVE (NEGATIVE); URINE PROTEIN NEGATIVE (NEGATIVE); URINE RBC 1 /hpf (0-4); URINE UROBILINOGEN 0.2 mg/dL (0.2-1.0); URINE WBC 2 /hpf (0-5)
[2019-04-03] MEDS ORDERED: ACETAMINOPHEN INJECTION 100 ML IVPB ONE (15:33)
[2019-04-03 15:48] LABS: BASO % 0.4 % (0-2.0); HEMATOCRIT 32.4 % (32.4-45.2); HEMOGLOBIN 10.4 GM/dL (10.7-15.3); LYMPH % 13.5 % (8-40); MCHC 32.2 g/dl (32.0-36.0); MEAN CELL VOLUME 93.1 fl (80-96); MEAN PLT VOLUME 9.7 fl (7.5-11.1); MONO % 5.8 % (3.8-10.2); NEUT % 80.3 % (42.8-82.8); PLATELET COUNT 246 K/MM3 (134-434); RBC 3.48 M/mm3 (3.60-5.2); RDW 17.3 % (11.6-15.6); WHITE BLOOD COUNT 24.4 K/mm3 (4.0-10.0)
[2019-04-03 15:51] LABS: VENOUS PC02 56.7 mmHg (38-52); VENOUS PO2 < 49 mmHg (28-48)
[2019-04-03 16:00] LABS: INR 1.31 (0.83-1.09); PROTHROMBIN TIME (PATIENT) 15.5 SEC (9.7-13.0)
[2019-04-03 16:02] LABS: ACTIVATED PTT 39.6 SECONDS (25.2-36.5)
[2019-04-03] MEDS ORDERED: PIPERACILLIN/TAZOB 4.5 GM 4.5 GM in DEXTROSE 5%-WATER 100 ML IVPB ONE (16:02)
[2019-04-03] MEDS ORDERED: VANCOMYCIN 1,000 MG in DEXTROSE 5%-WATER - 250 ML IVPB ONE (16:02)
[2019-04-03] MEDS ORDERED: VANCOMYCIN 1 GRAM (PRE-DOCKED) 1,000 MG/250 ML BAG IVPB ONE (16:21)
[2019-04-03] MEDS ORDERED: PIPERACILLIN/TAZOB 4.5 GM 4.5 GM/100 ML BAG IVPB ONE (16:21)
--- NOTE | 2019-04-03 16:31 | EKG ---
Test Reason : Blood Pressure : / mmHG Vent. Rate : 122 BPM Atrial Rate : 122 BPM P-R Int : 230 ms QRS Dur : 082 ms QT Int : 424 ms P-R-T Axes : 040 238 068 degrees QTc Int : 604 ms POOR DATA QUALITY, INTERPRETATION MAY BE ADVERSELY AFFECTED SINUS TACHYCARDIA WITH 1ST DEGREE A-V BLOCK WITH OCCASIONAL PREMATURE VENTRICULAR COMPLEXES POSSIBLE LATERAL INFARCT (CITED ON OR BEFORE 06-NOV-2018) INFERIOR INFARCT (CITED ON OR BEFORE 13-APR-2018) ABNORMAL ECG WHEN COMPARED WITH ECG OF 06-NOV-2018 17:49, PREMATURE VENTRICULAR COMPLEXES ARE NOW PRESENT DC INTERVAL HAS INCREASED QUESTIONABLE CHANGE IN INITIAL FORCES OF LATERAL LEADS Confirmed by Alessandro Patterson ([id number]) on 04/03/2019 4:31:44 PM Referred By: Confirmed By:Alessandro Patterson
[2019-04-03 16:40] LABS: ALBUMIN 2.8 g/dl (3.4-5.0); ALK PHOS 224 U/L (45-117); ANION GAP 5 MMOL/L (8-16); BILIRUBIN,TOTAL 0.8 mg/dL (0.2-1); BLOOD UREA NITROGEN 50.2 mg/dL (7-18); CALCIUM 9.7 mg/dL (8.5-10.1); CHLORIDE 124 mmol/L (98-107); CO2 33 mmol/L (21-32); CREATININE 1.5 mg/dL (0.55-1.3); GLUCOSE,RANDOM 140 mg/dL (74-106); POTASSIUM 5.6 mmol/L (3.5-5.1); SGOT/AST 105 U/L (15-37); SGPT/ALT 34 U/L (13-61); TOT PROT 8.5 g/dl (6.4-8.2)
[2019-04-03 16:42] LABS: SODIUM 162 mmol/L (136-145)
--- NOTE | 2019-04-03 16:48 | PDOC ---
History of Present Illness - General Chief Complaint: SIRS, Suspected/Possible Stated Complaint: Shortness of Breath Time Seen by Provider: 04/03/19 14:21 - History of Present Illness Initial Comments: Joe Isidro is a 68yo woman with a PMH of CVA, STEMI, failure to thrive s/p g-tube placement, anemia, seizure disorder, MDD, MODS, HTN, HLD, and chronic respiratory failure who presents from [facility] for evaluation of fever. She was noted to have a temperature of 99F at the SNF with rectal temp of 102.3 on arrival to the ED. Ms Isidro is nonverbal and unable to provide any additional details. Past History - Past Medical History Allergies/Adverse Reactions: Allergies Allergy/AdvReac Type Severity Reaction Status Date / Time No Known Allergies Allergy Verified 11/06/18 18:03 Home Medications: Ambulatory Orders Acetaminophen [Tylenol] 650 mg GT Q4H PRN 04/03/19 Amantadine HCl [Amantadine] 100 mg GT BID 04/03/19 Ascorbic Acid [Vitamin C -] 500 mg GT DAILY 04/03/19 Aspirin 81 mg GT DAILY 04/03/19 Atorvastatin Calcium 40 mg GT HS 04/03/19 Carbidopa/Levodopa [Carbidopa-Levodopa 25-250 Tab] 1 each GT TID 04/03/19 Folic Acid 1 mg GT DAILY 04/03/19 Furosemide [Lasix -] 20 mg GT DAILY 04/03/19 Ibuprofen [Motrin -] 600 mg GT QID PRN 04/03/19 Lacosamide Liquid [Vimpat Liquid -] 200 mg GT BID 04/03/19 Magnesium Oxide [Mag-Oxide] 400 mg GT BID 04/03/19 Midodrine HCl [Proamatine -] 5 mg GT TID 04/03/19 Mirtazapine 7.5 mg GT HS 04/03/19 Omeprazole 20 mg GT DAILY 04/03/19 Oxcarbazepine [Trileptal -] 300 mg GT TID 04/03/19 Ranitidine [Zantac -] 150 mg GT HS 04/03/19 levETIRAcetam [Keppra -] 500 mg GT BID 04/03/19 Anemia: No Asthma: Yes Cancer: No Cardiac Disorders: No CVA: Yes COPD: No CHF: No Dementia: Yes Diabetes: No GI Disorders: Yes (constipation, peg tube) Disorders: Yes (UTI) HTN: Yes Hypercholesterolemia: Yes Liver Disease: No Psychiatric Problems: Yes (depressive disorders) Seizures: Yes Thyroid Disease: No Lung CA: Yes (depression,) - Surgical History Abdominal Surgery: No Appendectomy: No Cardiac Surgery: No Cholecystectomy: No GI Surgery: Yes (gtube insertion) Lung Surgery: No Neurologic Surgery: No Orthopedic Surgery: No - Suicide/Smoking/Psychosocial Hx Smoking History: Unknown if ever smoked Have you smoked in the past 12 months: No Information on smoking cessation initiated: No Hx Alcohol Use: No Drug/Substance Use Hx: No Substance Use Type: None Hx Substance Use Treatment: No (unknown) Review of Systems - Review of Systems Comments:: Could not obtain *Physical Exam - Vital Signs Last Vital Signs Temp Pulse Resp BP Pulse Ox 102.3 F H 120 H 22 H 160/90 04/03/19 14:10 04/03/19 14:10 04/03/19 14:10 04/03/19 14:10 - Physical Exam Comments: General: Appears uncomfortable, mild distress. Visible rigors HEENT: Atraumatic, PERRL, EOMI Cards: Tachycardic, regular, no murmur appreciated Pulm: Comfortable on room air, clear to auscultation bilaterally Abd: Soft, g-tube in place. Grimace w/ abdominal palpation : Diapered Ext: Atraumatic. No LE edema. Skin: Sacral ulcer, stage 4 or unstagable. [place] on left, large amount of yellow fibrinous material on right, tracking under wound edge. Malodorous but no significant drainage appreciated. 3x quarter-sized stage 1-2 ulcers on right heel, right foot, right calf. Neuro: A&Ox3, CN grossly intact, normal speech, motor/sensory grossly intact and symmetric Psych: Mood appropriate to situation ED Treatment Course - LABORATORY CBC & Chemistry Diagram: 04/03/19 15:30 04/03/19 15:30 - ADDITIONAL ORDERS Additional order review: Laboratory Results 04/03/19 04/03/19 04/03/19 15:30 15:30 15:30 PT with INR 15.50 H INR 1.31 H PTT (Actin FS) 39.6 H VBG pH 7.40 POC VBG pCO2 56.7 H POC VBG pO2 < 49 H VBG HCO3 34.5 H VBG O2 Sat (Carlton) 19.2 L VBG Base Excess 8.4 H Sodium 162 H* Potassium 5.6 H Chloride 124 H Carbon Dioxide 33 H Anion Gap 5 L BUN 50.2 H Creatinine 1.5 H Est GFR (CKD-EPI)AfAm 41.64 Est GFR (CKD-EPI)NonAf 35.93 Random Glucose 140 H Lactic Acid Calcium 9.7 Total Bilirubin 0.8 AST 105 H ALT 34 Alkaline Phosphatase 224 H Total Protein 8.5 H Albumin 2.8 L Urine Color Urine Appearance Urine pH Ur Specific Campbell Urine Protein Urine Glucose (UA) Urine Ketones Urine Blood Urine Nitrite Urine Bilirubin Urine Urobilinogen Ur Leukocyte Esterase Urine WBC (Auto) Urine RBC (Auto) Urine Casts (Auto) U Epithel Cells (Auto) Urine Bacteria (Auto) 04/03/19 04/03/19 04/03/19 15:30 14:50 14:33 PT with INR INR PTT (Actin FS) Cancelled VBG pH POC VBG pCO2 POC VBG pO2 VBG HCO3 VBG O2 Sat (Carlton) VBG Base Excess Sodium Potassium Chloride Carbon Dioxide Anion Gap BUN Creatinine Est GFR (CKD-EPI)AfAm Est GFR (CKD-EPI)NonAf Random Glucose Lactic Acid 2.2 H* Calcium Total Bilirubin AST ALT Alkaline Phosphatase Total Protein Albumin Urine Color Yellow Urine Appearance Clear Urine pH 6.5 Ur Specific Campbell 1.013 Urine Protein Negative Urine Glucose (UA) Negative Urine Ketones Negative Urine Blood Negative Urine Nitrite Negative Urine Bilirubin Negative Urine Urobilinogen 0.2 Ur Leukocyte Esterase Trace Urine WBC (Auto) 2 Urine RBC (Auto) 1 Urine Casts (Auto) 1 U Epithel Cells (Auto) 1.4 Urine Bacteria (Auto) 0.5 04/03/19 15:30 RBC 3.48 L MCV 93.1 MCHC 32.2 RDW 17.3 H MPV 9.7 Neutrophils % 80.3 D Lymphocytes % 13.5 D Monocytes % 5.8 Eosinophils % 0.0 D Basophils % 0.4 - RADIOLOGY Radiology Studies Ordered: Category Date Time Status CHEST X-RAY PORTABLE* [RAD] Stat Radiology 04/03/19 14:30 Taken - Medications Given in the ED: ED Medications Discontinued Medications Generic Name Dose Route Start Last Admin Trade Name Freq PRN Reason Stop Dose Admin Acetaminophen 1,000 mg 04/03/19 14:31 04/03/19 15:38 Ofirmev Injection - IVPB 04/03/19 14:32 1,000 mg ONCE ONE Administration Sodium Chloride 1,000 ml 04/03/19 14:31 04/03/19 15:32 Normal Saline - IV 04/03/19 14:32 1,000 ml ONCE ONE Administration Medical Decision Making - Medical Decision Making 04/03/19 14:36 Joe Isidro is a 68yo woman with a PMH of CVA, STEMI, failure to thrive s/p g-tube placement, anemia, seizure disorder, MDD, MODS, HTN, HLD, and chronic respiratory failure who presents from [facility] for evaluation of fever. She was noted to have a temperature of 99F at the SNF with rectal temp of 102.3 on arrival to the ED. Ms Isidro is nonverbal and unable to provide any additional details. - Septic workup including CBC, CMP, coags, trop, lactate, blood cultures, UA, urine culture - EKG, CXR - Straight cath for urine, possible UTI as a source - Clear lungs, unlikely to be pulmonary infection - Grimace w/ abdominal palpation, especially suprapubic. May need imaging depending on UA - 1L NS 04/03/19 16:48 - Labs with multiple abnormalities, most notable sodium 162, WBC 24, NICOLÁS w/ cr 1.5 from 0.5. - Likely significant free water deficit due to fever and tube feeds - Additional 1L LR for significant hypernatremia - UA w/o sign of infection, unlikely UTI - CT abd/pelvis with contrast to evaluate for source of infection and to further evaluate ulcer 04/03/19 17:54 - Requested by crown and bridge dental lab technician to change contrast to non-contrast CT due to Cr 1.5, GFR 41.6. Elevations most likely due to free water deficit, pt has already received 2L IVF. Baseline Cr 0.5 per chart review - Contrast needed to better evaluate for intra-abdominal inflammation, infection , or other source of fever and leukocytosis. Will sign consent for patient as she is unable to do so herself 04/03/19 20:47 - CT completed. Shows LLL infiltrate. Sacral ulcer w/ likely osteomyelitis - Microblog sent for admission 04/03/19 21:30 - Spoke to FRAN Barrera. Requesting repeat chemistry, vitals prior to determining if pt is appropriate for admission to the floor v telemetry - Additional IVF ordered - Called to bed for possible seizure. Pt appeared tremulous, agitated but continues to localize. Mental status improved, now attempting to communicate verbally. Does not appear to be seizing. To be admitted Discussed with Yamil Hernandez and Ortega Watts PGY2 *DC/Admit/Observation/Transfer Diagnosis at time of Disposition: NICOLÁS (acute kidney injury), Hypernatremia Sepsis Qualifiers: Sepsis type: sepsis due to unspecified organism Sepsis acute organ dysfunction status: with acute organ dysfunction Severe sepsis acute organ dysfunction type : acute renal failure Acute renal failure type: unspecified Severe sepsis shock status: without septic shock Qualified Code(s): A41.9 - Sepsis, unspecified organism; R65.20 - Severe sepsis without septic shock; N17.9 - Acute kidney failure, unspecified Pneumonia Qualifiers: Pneumonia type: due to unspecified organism Laterality: left Lung location: lower lobe of lung Qualified Code(s): J18.1 - Lobar pneumonia, unspecified organism - Discharge Dispostion Decision to Admit order: Yes - Referrals Referrals: Lyndon Akbar MD [Primary Care Provider] - - Patient Instructions - Post Discharge Activity
[2019-04-03] MEDS ORDERED: LACTATED RINGERS SOLUTION 1000 ML INFUS.BAG IV ONE (16:53)
[2019-04-03 17:58] LABS: ANISOCYTOSIS 1+; MACROCYTOSIS 1+; PLATELET ESTIMATE NORMAL; TARGET CELLS 1+
[2019-04-03] MEDS ORDERED: LORazepam 2 MG/ML SDV VIAL ONE (21:23)
[2019-04-03] MEDS ORDERED: LACTATED RINGERS SOLUTION 1,000 ML/1,000 ML INFUS.BAG IV SCH (21:30)
--- NOTE | 2019-04-03 21:58 | HP ---
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 Who was sent to the ED for respiratory distress and fever. Patient is non-verbal at baseline, unable to provide HPI. ED course noted for: (1) Sepsis- T Max 102.3, P 120, R 22, Spo2 94% RA, WBC 24.4, Lactic Acid 2.2 (2) CTAP- small L basilar infiltrate, large left lower sacral ulcer erosion subjacent coccyx,lower sacrum consistent with osteomyelitis, no evidence of acute diverticulitis, no bowel obstruction (3) Electrolytes Imbalances- Na 162, K 5.6, Chloride 124, BUN 50 History Source: Transfer Record Limitations to Obtaining History: Clinical Condition (non-verbal) - Past Medical History SYNCHRONIZER: Yes: CVA, Seizure, TIA Cardiovascular: Yes: CAD, HTN, Hyperlipdemia, [place] Pulmonary: Yes: Other (Chronic Respiratory Failure) Gastrointestinal: Yes: Other (dysphagia, s/p peg) Heme/Onc: Yes: Anemia Infectious Disease: Yes: C-Diff - Past Surgical History Additional Past Surgical History: PEG - Smoking History Smoking history: Unknown if ever smoked Have you smoked in the past 12 months: No - Alcohol/Substance Use Hx Alcohol Use: No History of Substance Use: reports: None - Social History Usual Living Arrangement: Yes: Custodial ADL: Support Services History of Recent Travel: No Home Medications - Allergies Allergies/Adverse Reactions: Allergies Allergy/AdvReac Type Severity Reaction Status Date / Time No Known Allergies Allergy Verified 11/06/18 18:03 - Home Medications Home Medications: Ambulatory Orders Acetaminophen [Tylenol] 650 mg GT Q4H PRN 04/03/19 Amantadine HCl [Amantadine] 100 mg GT BID 04/03/19 Ascorbic Acid [Vitamin C -] 500 mg GT DAILY 04/03/19 Aspirin 81 mg GT DAILY 04/03/19 Atorvastatin Calcium 40 mg GT HS 04/03/19 Carbidopa/Levodopa [Carbidopa-Levodopa 25-250 Tab] 1 each GT TID 04/03/19 Folic Acid 1 mg GT DAILY 04/03/19 Furosemide [Lasix -] 20 mg GT DAILY 04/03/19 Ibuprofen [Motrin -] 600 mg GT QID PRN 04/03/19 Lacosamide Liquid [Vimpat Liquid -] 200 mg GT BID 04/03/19 Magnesium Oxide [Mag-Oxide] 400 mg GT BID 04/03/19 Midodrine HCl [Proamatine -] 5 mg GT TID 04/03/19 Mirtazapine 7.5 mg GT HS 04/03/19 Omeprazole 20 mg GT DAILY 04/03/19 Oxcarbazepine [Trileptal -] 300 mg GT TID 04/03/19 Ranitidine [Zantac -] 150 mg GT HS 04/03/19 levETIRAcetam [Keppra -] 500 mg GT BID 04/03/19 Family Disease History - Family Disease History Family History: Unable to Obtain Review of Systems Unable to obtain ROS, reason: Clinical Condition Physical Examination Vital Signs: Vital Signs Temperature 102.3 F H 04/03/19 14:10 Pulse Rate 103 H 04/03/19 17:04 Respiratory Rate 25 H 04/03/19 17:04 Blood Pressure 133/69 04/03/19 17:04 O2 Sat by Pulse Oximetry (%) 94 L 04/03/19 17:04 Constitutional: Yes: Other (non-verbal- at baseline) Eyes: Yes: Conjunctiva Clear, PERRL HENT: Yes: Other (dry mucousa- with poor oral hygiene) Neck: Yes: WNL, Supple, Trachea Midline Cardiovascular: Yes: Tachycardia, S1, S2 Respiratory: Yes: Diminished, On Nasal O2, SOB, Tachypnea Gastrointestinal: Yes: Normal Bowel Sounds, Soft, Other (PEG) ...Rectal Exam: Yes: Sphincter Tone Normal Renal/: Yes: Incontinence Breast(s): Yes: WNL Extremities: Yes: Other (contractures) Edema: No Peripheral Pulses WNL: Yes Integumentary: Yes: Pressure Ulcer (stage 4 to L sacrum approx 9cm with packing , malodorous approx quarter size ulcers to R calf, R heel, R foot) Neurological: Yes: Pre-Existing Deficit, Other (non-verbal- at baseline) Labs: CBC, BMP 04/03/19 15:30 09/03/19 15:30 Imaging - Results Chest X-ray: Report Reviewed, Image Reviewed Cat Scan: Report Reviewed, Image Reviewed EKG: Image Reviewed Problem List - Problems (1) Sepsis Code(s): A41.9 - SEPSIS, UNSPECIFIED ORGANISM Qualifiers: Sepsis type: sepsis due to unspecified organism Sepsis acute organ dysfunction status: with acute organ dysfunction Severe sepsis acute organ dysfunction type: acute renal failure Acute renal failure type: unspecified Severe sepsis shock status: without septic shock Qualified Code(s): A41.9 - Sepsis, unspecified organism; R65.20 - Severe sepsis without septic shock; N17.9 - Acute kidney failure, unspecified (2) Chronic respiratory failure Code(s): J96.10 - CHRONIC RESPIRATORY FAILURE, UNSP W HYPOXIA OR HYPERCAPNIA (3) Pneumonia Code(s): J18.9 - PNEUMONIA, UNSPECIFIED ORGANISM Qualifiers: Pneumonia type: due to unspecified organism Laterality: left Lung location: lower lobe of lung Qualified Code(s): J18.1 - Lobar pneumonia, unspecified organism (4) Hypernatremia Code(s): E87.0 - HYPEROSMOLALITY AND HYPERNATREMIA (5) NICOLÁS (acute kidney injury) Code(s): N17.9 - ACUTE KIDNEY FAILURE, UNSPECIFIED (6) CVA (cerebral vascular accident) Code(s): I63.9 - CEREBRAL INFARCTION, UNSPECIFIED Qualifiers: CVA mechanism: unspecified Qualified Code(s): I63.9 - Cerebral infarction, unspecified (7) Failure to thrive in adult Code(s): R62.7 - ADULT FAILURE TO THRIVE (8) Functional quadriplegia Code(s): R53.2 - FUNCTIONAL QUADRIPLEGIA (9) HLD (hyperlipidemia) Code(s): E78.5 - HYPERLIPIDEMIA, UNSPECIFIED (10) HTN (hypertension) Code(s): I10 - ESSENTIAL (PRIMARY) HYPERTENSION (11) MDD (major depressive disorder) Code(s): F32.9 - MAJOR DEPRESSIVE DISORDER, SINGLE EPISODE, UNSPECIFIED (12) Seizure Code(s): R56.9 - UNSPECIFIED CONVULSIONS Assessment/Plan This is a 68 y/o woman from [facility] with a significant medical history of Chronic Respiratory Failure, CVA, STEMI, HTN, HLD, Seizure Disorder, Anemia, MDD , MODS, 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 Who was sent to the ED for respiratory distress and fever. Admitted to Telemetry for Sepsis, LLL Pneumonia, Acute on Chronic Respiratory Failure with Hypoxia, Hypernatremia, Sacral Ulcer for further evaluation of their emergent condition Plan: Admit Sepsis Pneumonia Likely secondary to Pneumonia vs Sacral Ulcer Will treat for HAP vs Aspiration PNA [id number] Score 5 Sepsis Criteria Met: WBC 24.4, T Max 102.3, P120, R30, BP 85/67, BUN 50, Lactic Acid 2.2 qSOFA 3 Blood Cultures-pending Urine Culture-pending Check for Legionella Chest Xray reviewed CTAP- L- basilar infiltrate Vancomycin and Zosyn given in ED, will continue Appreciate ID consult Appreciate Vascular consult- Sacral Ulcer, Ulcers to R- calf, R- heel, R- foot Santyl Monitor CBC, BMP IVF Maintain MAP > 65 Monitor vitals Tylenol prn O2 Acute on Chronic Respiratory Failure with Hypoxia Likely secondary to Pneumonia, Sepsis Chest Xray- no acute process CTAP- L- basilar infiltrate VB.40/56.7/49/34.5/19.2 Appreciate Pulm consult O2 Duonebs Continue home meds Hypernatremia Continue Cardiac monitoring Hypernatremia- Free Water Deficit 5.8L IVF- D5W@75ml/hr Serial BMPs Appreciate Nephrology consult Sacral Ulcer, R Calf Ulcer, R Heel Ulcer, R Foot Ulcer Appreciate Vascular consult Wound Care Elevate extremity Monitor vitals CVA Continue home meds Fall precautions HTN Monitor BP Hold home meds secondary to Hypotension due to Sepsis HLD stable Continue home med Monitor LFT Anemia stable Hgb 10.4 Will transfuse if Hgb < 7.0 Monitor CBC Monitor vitals Seizure Disorder Stable Continue home med Seizure Precautions Fall Precautions MDD Continue home med Failure to Thrive Albumin 2.[address] consult Resume Tube Feedings ad chalo Functional Quadriplegia Complete immobility due to frailty, CVA Requires total care Turn Q2h Art Lift as needed Heel Protectors Fall Precautions FEN [id number] Replete lytes prn LPS Sugar Free Tube Feedings DVT ppx TEDs/SCDs Heparin SQ Code Status: Full Code Dispo: Requires Inpatient Care Visit type - Emergency Visit Emergency Visit: Yes ED Registration Date: 04/03/19 Care time: The patient presented to the Emergency Department on the above date and was hospitalized for further evaluation of their emergent condition. - New Patient This patient is new to me today: Yes Date on this admission: 04/03/19 - Critical Care Critical Care patient: No
[2019-04-03 23:07] LABS: BLOOD UREA NITROGEN 42.5 mg/dL (7-18); CREATININE 1.3 mg/dL (0.55-1.3)
[2019-04-03] MEDS ORDERED: ATORVASTATIN CA 40 MG TABLET (FP) ONE (23:09)
[2019-04-03] MEDS ORDERED: CARBIDOPA/LEVODOPA 25/250 TABLET (FP) ONE (23:09)
[2019-04-03] MEDS: levETIRAcetam 500 MG/5 ML ORAL SOLUTION (UNIT-DOSE CUPS) PO SCH (23:54)
[2019-04-03] MEDS: CARBIDOPA/LEVODOPA 25/250 TABLET (FP) GT SCH (23:54)
[2019-04-03] MEDS: ATORVASTATIN CA 40 MG TABLET (FP) GT SCH (23:54)
[2019-04-03] MEDS: Lacosamide 50 MG/5 ML ORAL SOLUTION UNIT CUPS GT SCH (23:54)
[2019-04-04] MEDS: CARBIDOPA/LEVODOPA 25/250 TABLET (FP) GT SCH ×3 (06:18→23:17)
[2019-04-04] MEDS: OXcarbazepine 300 MG TABLET (UD) PO SCH ×3 (06:18→23:17)
[2019-04-04 07:04] LABS: BASO % 0.3 % (0-2.0); EOS % 0.1 % (0-4.5); HEMATOCRIT 27.9 % (32.4-45.2); HEMOGLOBIN 9.1 GM/dL (10.7-15.3); LYMPH % 16.8 % (8-40); MCH 30.6 pg (25.7-33.7); MCHC 32.5 g/dl (32.0-36.0); MEAN CELL VOLUME 94.2 fl (80-96); MEAN PLT VOLUME 10.1 fl (7.5-11.1); MONO % 4.5 % (3.8-10.2); NEUT % 78.3 % (42.8-82.8); PLATELET COUNT 171 K/MM3 (134-434); RBC 2.96 M/mm3 (3.60-5.2); WHITE BLOOD COUNT 19.6 K/mm3 (4.0-10.0)
[2019-04-04 07:20] LABS: BLOOD UREA NITROGEN 33.3 mg/dL (7-18); CALCIUM 9.3 mg/dL (8.5-10.1); CREATININE 1.1 mg/dL (0.55-1.3); MAGNESIUM 2.9 mg/dL (1.8-2.4); POTASSIUM 4.3 mmol/L (3.5-5.1)
[2019-04-04] MEDS ORDERED: PIPERACILLIN/TAZOB 4.5 GM 4.5 GM in DEXTROSE 5%-WATER 100 ML IVPB SCH ×2 (10:00→10:30)
[2019-04-04] MEDS ORDERED: PATIENT'S OWN MEDICATION (NON-FORMULARY) (Omeprazole 20 MG) GT SCH (10:00)
[2019-04-04] MEDS ORDERED: VANCOMYCIN 1,000 MG in DEXTROSE 5%-WATER - 250 ML IVPB SCH (10:15)
[2019-04-04] MEDS ORDERED: DEXTROSE 5%-WATER - 1,000 ML IV SCH ×2 (10:30→12:24)
--- NOTE | 2019-04-04 10:34 | PN ---
Progress Note (short form) - Note Progress Note: Events noted was lethargic and in respiratory distress in the NH Vital Signs - 24 hr 04/03/19 04/03/19 04/03/19 14:10 17:04 23:50 Temperature 102.3 F H 100.9 F H Pulse Rate 120 H Pulse Rate [ 103 H 105 H Right] Respiratory 22 H 25 H 30 H Rate Blood Pressure 160/90 Blood Pressure 133/69 [Left Thigh] Blood Pressure 102/69 [Right Arm] O2 Sat by Pulse 94 L 99 Oximetry (%) 04/04/19 04/04/19 04/04/19 03:00 04:00 07:24 Temperature 100.8 F H Pulse Rate Pulse Rate [ 104 H 102 H 98 H Right] Respiratory 25 H 20 Rate Blood Pressure Blood Pressure [Left Thigh] Blood Pressure 85/67 L 92/65 104/84 [Right Arm] O2 Sat by Pulse 98 98 Oximetry (%) Current Medications Generic Name Dose Route Start Last Admin Trade Name Freq PRN Reason Stop Dose Admin Acetaminophen 650 mg 04/03/19 23:53 04/04/19 11:04 Tylenol Oral Solution - GT 650 mg Q6H PRN Administration FEVER Ascorbic Acid 500 mg 04/04/19 10:00 04/04/19 11:01 Vitamin C - GT 500 mg DAILY CLEMENTE Administration Aspirin 81 mg 04/04/19 10:00 04/04/19 10:59 Asa - GT 81 mg DAILY CLEMENTE Administration Atorvastatin Calcium 40 mg 04/03/19 22:00 04/03/19 23:54 Lipitor - GT 40 mg HS CLEMENTE Administration Carbidopa/Levodopa 1 each 04/03/19 22:45 04/04/19 06:18 Sinemet 25/250 - GT 1 each TID CLEMENTE Administration Collagenase 1 applic 04/04/19 11:00 Santyl - TP DAILY CLEMENTE Protocol Collagenase 1 applic 04/04/19 10:45 Santyl - TP DAILY CLEMENTE Protocol Folic Acid 1 mg 04/04/19 10:00 04/04/19 10:59 Folic Acid - GT 1 mg DAILY CLEMENTE Administration Lactated Ringer's 1,000 ml in 1,000 mls @ 125 mls/hr 04/03/19 21:30 04/03/19 22:15 Lactated Ringers Solution IV 125 mls/hr ASDIR CLEMENTE Administration Vancomycin HCl 1,000 mg/ 250 mls @ 200 mls/hr 04/04/19 10:15 Dextrose IVPB Q24H CLEMENTE Protocol Vancomycin HCl 1,000 mg in 250 mls @ 166.667 mls/hr 04/04/19 18:00 Vancomycin (Pre-Docked) IVPB 04/04/19 19:29 ONCE ONE Dextrose 1,000 mls @ 75 mls/hr 04/04/19 10:30 D5w - IV .[id number] CLEMENTE Piperacillin Sod/Tazobactam 50 mls @ 100 mls/hr 04/04/19 18:00 Sod 3.375 gm/ Dextrose IVPB Q8H-IV CLEMENTE Protocol Lacosamide 200 mg 04/03/19 22:45 04/04/19 11:43 Vimpat Liquid - GT 200 mg BID CLEMENTE Administration Levetiracetam 500 mg 04/03/19 22:45 04/04/19 11:00 Keppra Oral Solution - PO 500 mg BID CLEMENTE Administration Magnesium Oxide 400 mg 04/04/19 10:00 04/04/19 11:00 Mag-Ox - GT 400 mg BID CLEMENTE Administration Midodrine 5 mg 04/04/19 10:00 04/04/19 11:00 Proamatine - GT 5 mg TID-MID CLEMENTE Administration Mirtazapine 7.5 mg 04/04/19 22:00 Remeron - GT HS [facility] Multi-Ingredient Ointment 1 applic 04/04/19 11:00 Zinc Oxide TP BID CLEMENTE Oxcarbazepine 300 mg 04/04/19 06:00 04/04/19 06:18 Trileptal - PO 300 mg TID CLEMENTE Administration Ranitidine HCl 150 mg 04/04/19 10:00 04/04/19 11:01 Zantac Oral Solution - GT 150 mg BID CLEMENTE Administration Laboratory Results - last 24 hr 04/03/19 04/03/19 04/03/19 14:33 14:50 15:30 WBC RBC Hgb Hct MCV MCH MCHC RDW Plt Count MPV Absolute Neuts (auto) Total Counted Neutrophils % Neutrophils % (Manual) Band Neutrophils % Lymphocytes % Lymphocytes % (Manual) Monocytes % Monocytes % (Manual) Eosinophils % Eosinophils % (Manual) Basophils % Basophils % (Manual) Myelocytes % (Man) Promyelocytes % (Man) Blast Cells % (Manual) Nucleated RBC % Metamyelocytes Platelet Estimate Platelet Comment Polychromasia Poikilocytosis Anisocytosis Microcytosis Macrocytosis Target Cells PT with INR INR PTT (Actin FS) Cancelled VBG pH POC VBG pCO2 POC VBG pO2 VBG HCO3 VBG O2 Sat (Carlton) VBG Base Excess Sodium Potassium Chloride Carbon Dioxide Anion Gap BUN Creatinine Est GFR (CKD-EPI)AfAm Est GFR (CKD-EPI)NonAf Random Glucose Lactic Acid 2.2 H* Calcium Phosphorus Magnesium Total Bilirubin AST ALT Alkaline Phosphatase Troponin I Total Protein Albumin Urine Color Yellow Urine Appearance Clear Urine pH 6.5 Ur Specific [place] 1.013 Urine Protein Negative Urine Glucose (UA) Negative Urine Ketones Negative Urine Blood Negative Urine Nitrite Negative Urine Bilirubin Negative Urine Urobilinogen 0.2 Ur Leukocyte Esterase Trace Urine WBC (Auto) 2 Urine RBC (Auto) 1 Urine Casts (Auto) 1 U Epithel Cells (Auto) 1.4 Urine Bacteria (Auto) 0.5 04/03/19 04/03/19 04/03/19 15:30 15:30 15:30 WBC 24.4 H RBC 3.48 L Hgb 10.4 L Hct 32.4 MCV 93.1 MCH 30.0 MCHC 32.2 RDW 17.3 H Plt Count 246 D MPV 9.7 Absolute Neuts (auto) 19.6 H Total Counted 100 Neutrophils % 80.3 D Neutrophils % (Manual) 73.5 Band Neutrophils % 0.0 Lymphocytes % 13.5 D Lymphocytes % (Manual) 17.4 D Monocytes % 5.8 Monocytes % (Manual) 5 Eosinophils % 0.0 D Eosinophils % (Manual) 0.0 Basophils % 0.4 Basophils % (Manual) 0.0 Myelocytes % (Man) 1 D Promyelocytes % (Man) 0 Blast Cells % (Manual) 0 Nucleated RBC % 0 Metamyelocytes 1 D Platelet Estimate Normal Platelet Comment Present Polychromasia 1+ Poikilocytosis 1+ Anisocytosis 1+ Microcytosis 1+ Macrocytosis 1+ Target Cells 1+ PT with INR 15.50 H INR 1.31 H PTT (Actin FS) 39.6 H VBG pH POC VBG pCO2 POC VBG pO2 VBG HCO3 VBG O2 Sat (Carlton) VBG Base Excess Sodium 162 H* Potassium 5.6 H Chloride 124 H Carbon Dioxide 33 H Anion Gap 5 L BUN 50.2 H Creatinine 1.5 H Est GFR (CKD-EPI)AfAm 41.64 Est GFR (CKD-EPI)NonAf 35.93 Random Glucose 140 H Lactic Acid Calcium 9.7 Phosphorus Magnesium Total Bilirubin 0.8 AST 105 H ALT 34 Alkaline Phosphatase 224 H Troponin I < 0.02 Total Protein 8.5 H Albumin 2.8 L Urine Color Urine Appearance Urine pH Ur Specific [place] Urine Protein Urine Glucose (UA) Urine Ketones Urine Blood Urine Nitrite Urine Bilirubin Urine Urobilinogen Ur Leukocyte Esterase Urine WBC (Auto) Urine RBC (Auto) Urine Casts (Auto) U Epithel Cells (Auto) Urine Bacteria (Auto) 04/03/19 04/03/19 04/03/19 15:30 17:00 22:33 WBC RBC Hgb Hct MCV MCH MCHC RDW Plt Count MPV Absolute Neuts (auto) Total Counted Neutrophils % Neutrophils % (Manual) Band Neutrophils % Lymphocytes % Lymphocytes % (Manual) Monocytes % Monocytes % (Manual) Eosinophils % Eosinophils % (Manual) Basophils % Basophils % (Manual) Myelocytes % (Man) Promyelocytes % (Man) Blast Cells % (Manual) Nucleated RBC % Metamyelocytes Platelet Estimate Platelet Comment Polychromasia Poikilocytosis Anisocytosis Microcytosis Macrocytosis Target Cells PT with INR INR PTT (Actin FS) VBG pH 7.40 POC VBG pCO2 56.7 H POC VBG pO2 < 49 H VBG HCO3 34.5 H VBG O2 Sat (Carlton) 19.2 L VBG Base Excess 8.4 H Sodium 166 H* Potassium 4.0 Chloride 123 H Carbon Dioxide 31 Anion Gap 12 BUN 42.5 H Creatinine 1.3 Est GFR (CKD-EPI)AfAm 49.51 Est GFR (CKD-EPI)NonAf 42.71 Random Glucose 101 Lactic Acid 2.0 Calcium 9.0 Phosphorus Magnesium Total Bilirubin AST ALT Alkaline Phosphatase Troponin I Total Protein Albumin Urine Color Urine Appearance Urine pH Ur Specific [place] Urine Protein Urine Glucose (UA) Urine Ketones Urine Blood Urine Nitrite Urine Bilirubin Urine Urobilinogen Ur Leukocyte Esterase Urine WBC (Auto) Urine RBC (Auto) Urine Casts (Auto) U Epithel Cells (Auto) Urine Bacteria (Auto) 04/04/19 04/04/19 06:23 06:23 WBC 19.6 H RBC 2.96 L Hgb 9.1 L Hct 27.9 L MCV 94.2 MCH 30.6 MCHC 32.5 RDW 17.0 H Plt Count 171 D MPV 10.1 Absolute Neuts (auto) 15.3 H Total Counted Neutrophils % 78.3 Neutrophils % (Manual) Band Neutrophils % Lymphocytes % 16.8 D Lymphocytes % (Manual) Monocytes % 4.5 Monocytes % (Manual) Eosinophils % 0.1 D Eosinophils % (Manual) Basophils % 0.3 Basophils % (Manual) Myelocytes % (Man) Promyelocytes % (Man) Blast Cells % (Manual) Nucleated RBC % 0 Metamyelocytes Platelet Estimate Platelet Comment Polychromasia Poikilocytosis Anisocytosis Microcytosis Macrocytosis Target Cells PT with INR INR PTT (Actin FS) VBG pH POC VBG pCO2 POC VBG pO2 VBG HCO3 VBG O2 Sat (Carlton) VBG Base Excess Sodium 168 H* Potassium 4.3 Chloride 126 H Carbon Dioxide 30 Anion Gap 12 BUN 33.3 H Creatinine 1.1 Est GFR (CKD-EPI)AfAm 60.59 Est GFR (CKD-EPI)NonAf 52.28 Random Glucose 80 Lactic Acid Calcium 9.3 Phosphorus 3.0 Magnesium 2.9 H Total Bilirubin AST ALT Alkaline Phosphatase Troponin I Total Protein Albumin Urine Color Urine Appearance Urine pH Ur Specific [place]ot Urine Protein Urine Glucose (UA) Urine Ketones Urine Blood Urine Nitrite Urine Bilirubin Urine Urobilinogen Ur Leukocyte Esterase Urine WBC (Auto) Urine RBC (Auto) Urine Casts (Auto) U Epithel Cells (Auto) Urine Bacteria (Auto) Currently awake and in pain S1 S2 RRR Lungs decreased Abd- soft, Peg+NT edema+ A/P Sepsis pneumonia Failure to thrive Hypernatremia Dehydration -->iv fluids -->cultures pending -->iv antibiotics ---> ID eval noted -->renal eval Problem List - Problems (1) NICOLÁS (acute kidney injury) Code(s): N17.9 - ACUTE KIDNEY FAILURE, UNSPECIFIED (2) Hypernatremia Code(s): E87.0 - HYPEROSMOLALITY AND HYPERNATREMIA (3) Pneumonia Code(s): J18.9 - PNEUMONIA, UNSPECIFIED ORGANISM Qualifiers: Pneumonia type: due to unspecified organism Laterality: left Lung location: lower lobe of lung Qualified Code(s): J18.1 - Lobar pneumonia, unspecified organism (4) Sepsis Code(s): A41.9 - SEPSIS, UNSPECIFIED ORGANISM Qualifiers: Sepsis type: sepsis due to unspecified organism Sepsis acute organ dysfunction status: with acute organ dysfunction Severe sepsis acute organ dysfunction type: acute renal failure Acute renal failure type: unspecified Severe sepsis shock status: without septic shock Qualified Code(s): A41.9 - Sepsis, unspecified organism; R65.20 - Severe sepsis without septic shock; N17.9 - Acute kidney failure, unspecified (5) Functional quadriplegia Code(s): R53.2 - FUNCTIONAL QUADRIPLEGIA (6) HLD (hyperlipidemia) Code(s): E78.5 - HYPERLIPIDEMIA, UNSPECIFIED (7) HTN (hypertension) Code(s): I10 - ESSENTIAL (PRIMARY) HYPERTENSION
--- NOTE | 2019-04-04 10:43 | CON.ID ---
Consult Consult Specialty:: infectious diseases Referred by:: Holly Reason for Consultation:: sepsis,fever. 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 Who was sent to the ED for respiratory distress and fever. patient currently stable dressing from the decubitus ulcer removed which is foul smelling but wound looks clean patient in pain - History Source History Provided By: Medical Record Limitations to Obtaining History: Clinical Condition - Past Medical History DEVELOPMENT MGR: Yes: CVA, Seizure, TIA Cardio/Vascular: Yes: CAD, HTN, Hyperlipdemia, [place] Pulmonary: Yes: Other (Chronic Respiratory Failure) Gastrointestinal: Yes: Other (dysphagia, s/p peg) Infectious Disease: Yes: C-Diff - Alcohol/Substance Use Hx Alcohol Use: No History of Substance Use: reports: None - Smoking History Smoking history: Unknown if ever smoked Have you smoked in the past 12 months: No - Social History Usual Living Arrangement: Senior Living ADL: Support Services History of Recent Travel: No Home Medications - Allergies Allergies/Adverse Reactions: Allergies Allergy/AdvReac Type Severity Reaction Status Date / Time No Known Allergies Allergy Verified 11/06/18 18:03 - Home Medications Home Medications: Ambulatory Orders Acetaminophen [Tylenol] 650 mg GT Q4H PRN 04/03/19 Amantadine HCl [Amantadine] 100 mg GT BID 04/03/19 Ascorbic Acid [Vitamin C -] 500 mg GT DAILY 04/03/19 Aspirin 81 mg GT DAILY 04/03/19 Atorvastatin Calcium 40 mg GT HS 04/03/19 Carbidopa/Levodopa [Carbidopa-Levodopa 25-250 Tab] 1 each GT TID 04/03/19 Folic Acid 1 mg GT DAILY 04/03/19 Furosemide [Lasix -] 20 mg GT DAILY 04/03/19 Ibuprofen [Motrin -] 600 mg GT QID PRN 04/03/19 Lacosamide Liquid [Vimpat Liquid -] 200 mg GT BID 04/03/19 Magnesium Oxide [Mag-Oxide] 400 mg GT BID 04/03/19 Midodrine HCl [Proamatine -] 5 mg GT TID 04/03/19 Mirtazapine 7.5 mg GT HS 04/03/19 Omeprazole 20 mg GT DAILY 04/03/19 Oxcarbazepine [Trileptal -] 300 mg GT TID 04/03/19 Ranitidine [Zantac -] 150 mg GT HS 04/03/19 levETIRAcetam [Keppra -] 500 mg GT BID 04/03/19 Review of Systems Unable to obtain ROS, reason: unable to obtain Physical Exam Vital Signs: Vital Signs Temperature 100.8 F H 04/04/19 07:24 Pulse Rate 98 H 04/04/19 07:24 Respiratory Rate 20 04/04/19 07:24 Blood Pressure 104/84 04/04/19 07:24 O2 Sat by Pulse Oximetry (%) 98 04/04/19 07:24 Constitutional: Yes: Calm, Mild Distress, Other (ever) Cardiovascular: Yes: Regular Rate and Rhythm, Tachycardia Respiratory: Yes: Regular, CTA Bilaterally Gastrointestinal: Yes: Normal Bowel Sounds, Soft, Other (g tube in place) Musculoskeletal: Yes: WNL Extremities: Yes: Other Wound/Incision: Yes: Dressing Removed, Other (large decubitus sacral ulcer on the bone--foul smelling site looks clean) Neurological: Yes: Alert Psychiatric: Yes: Alert Labs: CBC, BMP 04/04/19 06:23 04/04/19 06:23 Imaging - Results Cat Scan: Report Reviewed, Image Reviewed Assessment/Plan this patient with multiple medical problems coming wiht fever and resp distress with ct scan showing a new infiltrate and leukocytosis currently patient looks better sacral decubitus ulcer foul smelling decubitus ulcer fever resp distress leukocytosis plan will start on abx wound care await for all reports rest as per the team and all cx reports
[2019-04-04] MEDS ORDERED: COLLAGENASE CLOSTRIDIUM HIST. 30 GRAMS TUBE TP SCH (10:45)
--- NOTE | 2019-04-04 10:46 | CONSULT ---
- Consultation REQUESTING PROVIDER: CONSULT REQUEST: We have been asked to surgically evaluate this patient for sacral ulcer. 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 Vascular consulted for sacral ulcer. PMHx: as above PSHx: unknown Home Medications Medication Instructions Recorded Acetaminophen [Tylenol] 650 mg GT Q4H PRN 04/03/19 Amantadine HCl [Amantadine] 100 mg GT BID 04/03/19 Ascorbic Acid [Vitamin C -] 500 mg GT DAILY 04/03/19 Aspirin 81 mg GT DAILY 04/03/19 Atorvastatin Calcium 40 mg GT HS 04/03/19 Carbidopa/Levodopa 1 each GT TID 04/03/19 [Carbidopa-Levodopa 25-250 Tab] Folic Acid 1 mg GT DAILY 04/03/19 Furosemide [Lasix -] 20 mg GT DAILY 04/03/19 Ibuprofen [Motrin -] 600 mg GT QID PRN 04/03/19 Lacosamide Liquid [Vimpat Liquid -] 200 mg GT BID 04/03/19 Magnesium Oxide [Mag-Oxide] 400 mg GT BID 04/03/19 Midodrine HCl [Proamatine -] 5 mg GT TID 04/03/19 Mirtazapine 7.5 mg GT HS 04/03/19 Omeprazole 20 mg GT DAILY 04/03/19 Oxcarbazepine [Trileptal -] 300 mg GT TID 04/03/19 Ranitidine [Zantac -] 150 mg GT HS 04/03/19 levETIRAcetam [Keppra -] 500 mg GT BID 04/03/19 Allergies Allergy/AdvReac Type Severity Reaction Status Date / Time No Known Allergies Allergy Verified 11/06/18 18:03 REVIEW OF SYSTEMS: pt nonverbal at this time PHYSICAL EXAM: GENERAL: Awake, alert, in no acute distress. HEAD: Normal with no signs of trauma. Sacrum: Sacrum with 7x9x3.5cm ulcer, + undermining to 1 cm proximally, minimal fibrinous exudate proximally remainder of ulcer with granulation tissue. + foul odor. + bone exposed at right lateral aspect of ulcer. No purulent drainage. No erythema noted. Vital Signs Temperature 100.8 F H 04/04/19 07:24 Pulse Rate 98 H 04/04/19 07:24 Respiratory Rate 20 04/04/19 07:24 Blood Pressure 104/84 04/04/19 07:24 O2 Sat by Pulse Oximetry (%) 98 04/04/19 07:24 Lab Results WBC 19.6 K/mm3 (4.0-10.0) H 04/04/19 06:23 RBC 2.96 M/mm3 (3.60-5.2) L 04/04/19 06:23 Hgb 9.1 GM/dL (10.7-15.3) L 04/04/19 06:23 Hct 27.9 % (32.4-45.2) L 04/04/19 06:23 MCV 94.2 fl (80-96) 04/04/19 06:23 MCHC 32.5 g/dl (32.0-36.0) 04/04/19 06:23 RDW 17.0 % (11.6-15.6) H 04/04/19 06:23 Plt Count 171 K/MM3 (134-434) D 04/04/19 06:23 Sodium 168 mmol/L (136-145) H* 04/04/19 06:23 Potassium 4.3 mmol/L (3.5-5.1) 04/04/19 06:23 Chloride 126 mmol/L (98-107) H 04/04/19 06:23 Carbon Dioxide 30 mmol/L (21-32) 04/04/19 06:23 Anion Gap 12 MMOL/L (8-16) 04/04/19 06:23 BUN 33.3 mg/dL (7-18) H 04/04/19 06:23 Creatinine 1.1 mg/dL (0.55-1.3) 04/04/19 06:23 Random Glucose 80 mg/dL (74-106) 04/04/19 06:23 Calcium 9.3 mg/dL (8.5-10.1) 04/04/19 06:23 INR 1.31 (0.83-1.09) H 04/03/19 15:30 CT A/P (04/03/19): Development of a large left lower sacral ulcer (prior scan for comparison 12/12/17) is seen with associated development of partial erosion of the subjacent coccyx/lower sacrum consistent with osteomyelitis. 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 Vascular consulted for sacral ulcer. Large sacral ulcer, majority of which is clean based. +bone exposed, + osteomyelitis. -No acute vascular intervention/debridement warranted at this time -Reposition every two hours while in bed -Air mattress recommended -Use drawsheets and Trendelenburg when repositioning to reduce friction and shear -Manageincontinence via timely cleansing, use of appropriate incontinence disposables and use of barrier ointment to intact skin -Ensure adequate hydration/nutrition, supplementation per primary team -Ensure off-loading to all bony areas (heels, ankles, hips and tailbone) with Allevyn/Optifoam -Clean open wounds with normal saline and apply Santyl to area of fibrinous exudate (proximally) and wet to dry to remainder of sacral ulcer. Change daily. D/w attending Dr Hernandez
[2019-04-04] MEDS: FOLIC ACID 1 MG TABLET (FP) GT SCH (10:59)
[2019-04-04] MEDS: ASPIRIN 81 MG CHEWABLE TABLETS GT SCH (10:59)
[2019-04-04] MEDS: MAGNESIUM OXIDE 400 MG TABLET (FP) GT SCH ×2 (11:00→23:22)
[2019-04-04] MEDS: levETIRAcetam 500 MG/5 ML ORAL SOLUTION (UNIT-DOSE CUPS) PO SCH ×2 (11:00→23:18)
[2019-04-04] MEDS: MIDODRINE HCL 5 MG TABLET GT SCH ×3 (11:00→18:23)
[2019-04-04] MEDS: ASCORBIC ACID 500 MG TABLET (FP) GT SCH (11:01)
[2019-04-04] MEDS: RANITIDINE HCL 150 MG/10 ML UNIT-DOSE GT SCH ×2 (11:01→23:18)
[2019-04-04] MEDS: ACETAMINOPHEN 650 MG/20.3 ML ORAL SOLUTION (CUPS) GT PRN (11:04)
[2019-04-04] MEDS: Lacosamide 50 MG/5 ML ORAL SOLUTION UNIT CUPS GT SCH ×2 (11:43→23:22)
--- NOTE | 2019-04-04 12:57 | CON.PULM ---
Consult Consult Specialty:: PULMONARY Referred by:: Dr Akbar Reason for Consultation:: respiratory failure - History of Present Illness Chief Complaint: fever History of Present Illness: 68yo female with h/o HTN, hyperlipidemia, h/o CVA, CAD, seizure disorder, h/o PEG who was sent from the group home for fevers and respiratory distress. Pt unable to provide further history at this time. Noted to have a fever to 102.3 with leukocytosis. Abdominal imaging showing large sacral ulcer with evidence of osteomyelitis. Also incidentally found to have left basilar atelectasis. 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, TIA Cardio/Vascular: Yes: CAD, HTN, Hyperlipdemia, [place] Pulmonary: Yes: Other (Chronic Respiratory Failure) Gastrointestinal: Yes: Other (dysphagia, s/p peg) Infectious Disease: Yes: C-Diff - Alcohol/Substance Use Hx Alcohol Use: No History of Substance Use: reports: None - Smoking History Smoking history: Unknown if ever smoked Have you smoked in the past 12 months: No - Social History Usual Living Arrangement: Prison ADL: Support Services History of Recent Travel: No Home Medications - Allergies Allergies/Adverse Reactions: Allergies Allergy/AdvReac Type Severity Reaction Status Date / Time No Known Allergies Allergy Verified 11/06/18 18:03 - Home Medications Home Medications: Ambulatory Orders Acetaminophen [Tylenol] 650 mg GT Q4H PRN 04/03/19 Amantadine HCl [Amantadine] 100 mg GT BID 04/03/19 Ascorbic Acid [Vitamin C -] 500 mg GT DAILY 04/03/19 Aspirin 81 mg GT DAILY 04/03/19 Atorvastatin Calcium 40 mg GT HS 04/03/19 Carbidopa/Levodopa [Carbidopa-Levodopa 25-250 Tab] 1 each GT TID 04/03/19 Folic Acid 1 mg GT DAILY 04/03/19 Furosemide [Lasix -] 20 mg GT DAILY 04/03/19 Ibuprofen [Motrin -] 600 mg GT QID PRN 04/03/19 Lacosamide Liquid [Vimpat Liquid -] 200 mg GT BID 04/03/19 Magnesium Oxide [Mag-Oxide] 400 mg GT BID 04/03/19 Midodrine HCl [Proamatine -] 5 mg GT TID 04/03/19 Mirtazapine 7.5 mg GT HS 04/03/19 Omeprazole 20 mg GT DAILY 04/03/19 Oxcarbazepine [Trileptal -] 300 mg GT TID 04/03/19 Ranitidine [Zantac -] 150 mg GT HS 04/03/19 levETIRAcetam [Keppra -] 500 mg GT BID 04/03/19 Review of Systems Unable to obtain ROS, reason: pt nonverbal Physical Exam Vital Sings: Vital Signs Temperature 100.8 F H 04/04/19 07:24 Pulse Rate 98 H 04/04/19 07:24 Respiratory Rate 20 04/04/19 07:24 Blood Pressure 104/84 04/04/19 07:24 O2 Sat by Pulse Oximetry (%) 98 04/04/19 07:24 Constitutional: Yes: Mild Distress Eyes: Yes: Conjunctiva Clear, EOM Intact HENT: Yes: Atraumatic, Normocephalic Neck: Yes: Supple, Trachea Midline Cardiovascular: Yes: Tachycardia Respiratory: Yes: Diminished (decreased breath sounds at the bases) ...Clubbing: No Gastrointestinal: Yes: Normal Bowel Sounds, Soft. No: Tenderness Edema: No Neurological: Yes: Lethargy Labs: CBC, BMP 04/04/19 06:23 04/04/19 06:23 Imaging - Results Cat Scan: Report Reviewed, Image Reviewed (sarcral ulcer with evidence of osteomyelitis, left base atelectasis) Assessment/Plan Sacral Osteomyelitis Sepsis Acute Kidney Injury Lactic Acidosis Dehydration/Hypernatremia Left Atelectasis h/o CVA HTN Hyperlipidemia Seizure Disorder - antibiotics per ID - f/u cultures - do not suspect pneumonia at this time - aspiration precautions - free water replacement - monitor lytes - monitor urine output, creatinine - DVT prophylaxis Thank you for this consult Thiago Wallis MD
--- NOTE | 2019-04-04 12:58 | CONSULT ---
Consult - text type - Consultation Consultation Note: Renal consult for hypernatremia and NICOLÁS. This is a 68 year old woman with history of respiratory failure (not on chronic vent) stroke, CAD s/p STEMI, hypertension, hyperlipidemia, seizure disorder, MDD who presented with fever and respiratory distress and found to have serum na of 162 and Cr of 1.5. Baseline Cr 0.4-0.8. Pt seen and examined in the ED. Awake but not able to provide any further history. Noted to have stage 4 ulcer on sacrum. BP improved in the ED after isotonic IVF. PMHx: as above Allergies: NKDA Family Hx: NC Social Hx: No T/A ROS: Unable to obtain because of clinical status Home Medications Medication Instructions Recorded Acetaminophen [Tylenol] 650 mg GT Q4H PRN 04/03/19 Amantadine HCl [Amantadine] 100 mg GT BID 04/03/19 Ascorbic Acid [Vitamin C -] 500 mg GT DAILY 04/03/19 Aspirin 81 mg GT DAILY 04/03/19 Atorvastatin Calcium 40 mg GT HS 04/03/19 Carbidopa/Levodopa 1 each GT TID 04/03/19 [Carbidopa-Levodopa 25-250 Tab] Folic Acid 1 mg GT DAILY 04/03/19 Furosemide [Lasix -] 20 mg GT DAILY 04/03/19 Ibuprofen [Motrin -] 600 mg GT QID PRN 04/03/19 Lacosamide Liquid [Vimpat Liquid -] 200 mg GT BID 04/03/19 Magnesium Oxide [Mag-Oxide] 400 mg GT BID 04/03/19 Midodrine HCl [Proamatine -] 5 mg GT TID 04/03/19 Mirtazapine 7.5 mg GT HS 04/03/19 Omeprazole 20 mg GT DAILY 04/03/19 Oxcarbazepine [Trileptal -] 300 mg GT TID 04/03/19 Ranitidine [Zantac -] 150 mg GT HS 04/03/19 levETIRAcetam [Keppra -] 500 mg GT BID 04/03/19 Vital Signs Temperature 100.8 F H 04/04/19 07:24 Pulse Rate 98 H 04/04/19 07:24 Respiratory Rate 20 04/04/19 07:24 Blood Pressure 104/84 04/04/19 07:24 O2 Sat by Pulse Oximetry (%) 98 04/04/19 07:24 Intake & Output 04/01/19 04/02/19 04/03/19 04/04/19 23:59 23:59 23:59 23:59 Weight 65.136 kg NAD awake and alert neck supple RRR CTA soft NT/ND, feeding tube in place no LE edema no bladder distension CBC, BMP 04/04/19 06:23 04/04/19 06:23 Laboratory Tests 04/03/19 04/03/19 04/04/19 15:30 22:33 06:23 Sodium 162 H* 166 H* 168 H* BUN 50.2 H 42.5 H 33.3 H Creatinine 1.5 H 1.3 1.1 Calcium 9.3 Phosphorus 3.0 Magnesium 2.9 H Current Medications Acetaminophen (Tylenol Oral Solution -) 650 mg GT Q6H PRN PRN Reason: FEVER Last Admin: 04/04/19 11:04 Dose: 650 mg Ascorbic Acid (Vitamin C -) 500 mg GT DAILY [facility] Last Admin: 04/04/19 11:01 Dose: 500 mg Aspirin (Asa -) 81 mg GT DAILY [facility] Last Admin: 04/04/19 10:59 Dose: 81 mg Atorvastatin Calcium (Lipitor -) 40 mg GT HS [facility] Last Admin: 04/03/19 23:54 Dose: 40 mg Carbidopa/Levodopa (Sinemet 25/250 -) 1 each GT TID [facility] Last Admin: 04/04/19 06:18 Dose: 1 each Collagenase (Santyl -) 1 applic TP DAILY [facility]; Protocol Collagenase (Santyl -) 1 applic TP DAILY [facility]; Protocol Folic Acid (Folic Acid -) 1 mg GT DAILY [facility] Last Admin: 04/04/19 10:59 Dose: 1 mg Vancomycin HCl 1,000 mg/ (Dextrose) 250 mls @ 200 mls/hr IVPB Q24H [facility]; Protocol Vancomycin HCl (Vancomycin (Pre-Docked)) 1,000 mg in 250 mls @ 166.667 mls/hr IVPB ONCE ONE Stop: 04/04/19 19:29 Piperacillin Sod/Tazobactam (Sod 3.375 gm/ Dextrose) 50 mls @ 100 mls/hr IVPB Q8H-IV [facility]; Protocol Dextrose (D5w -) 1,000 mls @ 100 mls/hr IV .[id number] [facility] Lacosamide (Vimpat Liquid -) 200 mg GT BID [facility] Last Admin: 04/04/19 11:43 Dose: 200 mg Levetiracetam (Keppra Oral Solution -) 500 mg PO BID [facility] Last Admin: 04/04/19 11:00 Dose: 500 mg Magnesium Oxide (Mag-Ox -) 400 mg GT BID [facility] Last Admin: 04/04/19 11:00 Dose: 400 mg Midodrine (Proamatine -) 5 mg GT TID-MID [facility] Last Admin: 04/04/19 11:00 Dose: 5 mg Mirtazapine (Remeron -) 7.5 mg GT HS [facility] Multi-Ingredient Ointment (Zinc Oxide) 1 applic TP BID [facility] Oxcarbazepine (Trileptal -) 300 mg PO TID [facility] Last Admin: 04/04/19 06:18 Dose: 300 mg Ranitidine HCl (Zantac Oral Solution -) 150 mg GT BID [facility] Last Admin: 04/04/19 11:01 Dose: 150 mg 68 year old woman with history of respiratory failure, stroke, CAD s/p STEMI, hypertension, hyperlipidemia, seizure disorder, MDD who presented with fever and respiratory distress and found to have serum na of 162 and Cr of 1.5. Baseline Cr 0.4-0.8. 1. Acute Kidney injury in setting of suspected sepsis 2. Hypernatremia 3. Lactic acidosis 4. Suspected Sepsis 5. Chronic respiratory failure Serum Cr improving with IVF but remains above baseline water deficit is 5.8L Trend lactic acid levels Start 1/2 NS at 125cc per hour monitor BMP Q12h continue empiric antibiotics Thank you Constantino Mejía DO
[2019-04-04] MEDS ORDERED: SODIUM CHLORIDE 0.45% 1,000 ML IV SCH (13:45)
[2019-04-04 13:58] LABS: CALCIUM 9.3 mg/dL (8.5-10.1); CREATININE 1.1 mg/dL (0.55-1.3); POTASSIUM 3.5 mmol/L (3.5-5.1)
[2019-04-04] MEDS: PIPERACILLIN/TAZOB 3.375 GM 3.375 GM in DEXTROSE 5%-WATER - 50 ML IVPB SCH (17:18)
[2019-04-04] MEDS ORDERED: VANCOMYCIN 1 GRAM (PRE-DOCKED) 1,000 MG/250 ML BAG IVPB ONE ×2 (18:00→18:26)
[2019-04-04 20:41] LABS: BLOOD UREA NITROGEN 28.8 mg/dL (7-18); CALCIUM 9.2 mg/dL (8.5-10.1); CREATININE 1.3 mg/dL (0.55-1.3); POTASSIUM 3.5 mmol/L (3.5-5.1)
[2019-04-04] MEDS: MIRTAZAPINE 15 MG TABLET (FP) GT SCH (23:17)
[2019-04-04] MEDS: ATORVASTATIN CA 40 MG TABLET (FP) GT SCH (23:22)
[2019-04-04] MEDS: ZINC OXIDE 20% TOPICAL OINTMENT 30 GM TUBE TP SCH (23:34)
[2019-04-05] MEDS ORDERED: DEXTROSE 5%-WATER - 50 ML IVPB ONE ×3 (01:24→17:45)
[2019-04-05] MEDS ORDERED: PIPERACILLIN/TAZOBACTAM 3.375 GM VIAL IVPB ONE ×3 (01:24→17:45)
[2019-04-05] MEDS: PIPERACILLIN/TAZOB 3.375 GM 3.375 GM in DEXTROSE 5%-WATER - 50 ML IVPB SCH ×3 (02:05→17:52)
[2019-04-05] MEDS: ZINC OXIDE 20% TOPICAL OINTMENT 30 GM TUBE TP SCH ×3 (02:23→22:48)
[2019-04-05] MEDS: OXcarbazepine 300 MG TABLET (UD) PO SCH ×3 (06:13→22:44)
[2019-04-05] MEDS: COLLAGENASE CLOSTRIDIUM HIST. 30 GRAMS TUBE TP SCH ×2 (06:13→10:34)
[2019-04-05] MEDS: CARBIDOPA/LEVODOPA 25/250 TABLET (FP) GT SCH ×3 (06:13→22:44)
[2019-04-05 08:36] LABS: BASO % 0.4 % (0-2.0); EOS % 0.7 % (0-4.5); HEMATOCRIT 25.1 % (32.4-45.2); HEMOGLOBIN 8.4 GM/dL (10.7-15.3); LYMPH % 16.3 % (8-40); MCH 31.3 pg (25.7-33.7); MCHC 33.5 g/dl (32.0-36.0); MEAN CELL VOLUME 93.5 fl (80-96); MEAN PLT VOLUME 10.1 fl (7.5-11.1); MONO % 5.7 % (3.8-10.2); NEUT % 76.9 % (42.8-82.8); PLATELET COUNT 146 K/MM3 (134-434); RBC 2.69 M/mm3 (3.60-5.2); RDW 16.8 % (11.6-15.6); WHITE BLOOD COUNT 13.3 K/mm3 (4.0-10.0)
[2019-04-05 09:08] LABS: ALBUMIN 2.2 g/dl (3.4-5.0); BILIRUBIN,TOTAL 0.5 mg/dL (0.2-1); BLOOD UREA NITROGEN 23.6 mg/dL (7-18); CALCIUM 8.8 mg/dL (8.5-10.1); POTASSIUM 3.3 mmol/L (3.5-5.1); TOT PROT 6.6 g/dl (6.4-8.2)
[2019-04-05] MEDS ORDERED: PT OWN MED DRAWER 7, Y5N ONE ×2 (10:14→22:38)
[2019-04-05] MEDS: ACETAMINOPHEN 650 MG/20.3 ML ORAL SOLUTION (CUPS) GT PRN ×2 (10:21→18:01)
[2019-04-05] MEDS: Lacosamide 50 MG/5 ML ORAL SOLUTION UNIT CUPS GT SCH ×2 (10:22→22:47)
[2019-04-05] MEDS: ASPIRIN 81 MG CHEWABLE TABLETS GT SCH (10:32)
[2019-04-05] MEDS: MAGNESIUM OXIDE 400 MG TABLET (FP) GT SCH ×2 (10:32→22:46)
[2019-04-05] MEDS: ASCORBIC ACID 500 MG TABLET (FP) GT SCH (10:32)
[2019-04-05] MEDS: FOLIC ACID 1 MG TABLET (FP) GT SCH (10:32)
[2019-04-05] MEDS: RANITIDINE HCL 150 MG/10 ML UNIT-DOSE GT SCH ×2 (10:32→23:05)
[2019-04-05] MEDS: levETIRAcetam 500 MG/5 ML ORAL SOLUTION (UNIT-DOSE CUPS) PO SCH ×2 (10:33→22:46)
[2019-04-05] MEDS: MIDODRINE HCL 5 MG TABLET GT SCH ×3 (10:34→17:52)
--- NOTE | 2019-04-05 11:15 | PN ---
Progress Note, Physician History of Present Illness: more awake but confused - Current Medication List Current Medications: Active Medications Acetaminophen (Tylenol Oral Solution -) 650 mg GT Q6H PRN PRN Reason: FEVER Last Admin: 04/05/19 10:21 Dose: 650 mg Ascorbic Acid (Vitamin C -) 500 mg GT DAILY [facility] Last Admin: 04/05/19 10:32 Dose: 500 mg Aspirin (Asa -) 81 mg GT DAILY [facility] Last Admin: 04/05/19 10:32 Dose: 81 mg Atorvastatin Calcium (Lipitor -) 40 mg GT HS [facility] Last Admin: 04/04/19 23:22 Dose: 40 mg Carbidopa/Levodopa (Sinemet 25/250 -) 1 each GT TID [facility] Last Admin: 04/05/19 06:13 Dose: 1 each Collagenase (Santyl -) 1 applic TP DAILY [facility]; Protocol Last Admin: 04/05/19 10:34 Dose: 1 applic Folic Acid (Folic Acid -) 1 mg GT DAILY [facility] Last Admin: 04/05/19 10:32 Dose: 1 mg Vancomycin HCl 1,000 mg/ (Dextrose) 250 mls @ 200 mls/hr IVPB Q24H [facility]; Protocol Piperacillin Sod/Tazobactam (Sod 3.375 gm/ Dextrose) 50 mls @ 100 mls/hr IVPB Q8H-IV [facility]; Protocol Last Admin: 04/05/19 10:20 Dose: 100 mls/hr Sodium Chloride (1/2 Normal Saline) 1,000 mls @ 125 mls/hr IV ASDIR [facility] Last Admin: 04/04/19 17:16 Dose: 125 mls/hr Lacosamide (Vimpat Liquid -) 200 mg GT BID [facility] Last Admin: 04/05/19 10:22 Dose: 200 mg Levetiracetam (Keppra Oral Solution -) 500 mg PO BID [facility] Last Admin: 04/05/19 10:33 Dose: 500 mg Magnesium Oxide (Mag-Ox -) 400 mg GT BID [facility] Last Admin: 04/05/19 10:32 Dose: 400 mg Midodrine (Proamatine -) 5 mg GT TID-MID [facility] Last Admin: 04/05/19 10:34 Dose: 5 mg Mirtazapine (Remeron -) 7.5 mg GT HS [facility] Last Admin: 04/04/19 23:17 Dose: 7.5 mg Multi-Ingredient Ointment (Zinc Oxide) 1 applic TP BID [facility] Last Admin: 04/05/19 10:34 Dose: 1 applic Oxcarbazepine (Trileptal -) 300 mg PO TID [facility] Last Admin: 04/05/19 06:13 Dose: 300 mg Ranitidine HCl (Zantac Oral Solution -) 150 mg GT BID [facility] Last Admin: 04/05/19 10:32 Dose: 150 mg - Objective Vital Signs: Vital Signs Temperature 99.3 F 04/05/19 09:00 Pulse Rate 85 04/05/19 09:00 Respiratory Rate 04/05/19 09:00 Blood Pressure 88/57 L 04/05/19 09:00 O2 Sat by Pulse Oximetry (%) 97 04/04/19 22:00 Constitutional: Yes: No Distress, Calm Cardiovascular: Yes: S1, S2 Respiratory: Yes: Regular, CTA Bilaterally Gastrointestinal: Yes: Normal Bowel Sounds, Soft, Other Musculoskeletal: Yes: WNL Extremities: Yes: WNL Wound/Incision: Yes: Dressing Dry and Intact Neurological: Yes: Other Psychiatric: Yes: Other Labs: CBC, BMP 04/05/19 06:55 04/05/19 06:55 INR, PTT INR 1.31 (0.83-1.09) H 04/03/19 15:30 Assessment/Plan this patient with multiple medical problems coming wiht fever and resp distress with ct scan showing a new infiltrate and leukocytosis currently patient looks better sacral decubitus ulcer foul smelling decubitus ulcer fever resp distress leukocytosis plan continue abx hydration nephro close watch nutrition monitor wbc
--- NOTE | 2019-04-05 11:44 | PN ---
Progress Note (short form) - Note Progress Note: awake no distress not verbal-- baseline she usually talks and smiles-->but she is not clear INR, PTT INR 1.31 (0.83-1.09) H 04/03/19 15:30 S1 S2 RRR Lungs decreased Abd- soft, Peg+NT Vital Signs - 24 hr 04/04/19 04/04/19 04/04/19 14:23 16:00 18:41 Temperature 99.5 F 99.5 F 100.9 F H Pulse Rate 84 96 H Pulse Rate [ Right] Respiratory 28 H 30 H Rate Blood Pressure 106/67 103/58 L Blood Pressure [Right Arm] O2 Sat by Pulse Oximetry (%) 04/04/19 04/04/19 04/05/19 19:40 22:00 02:00 Temperature 98.8 F 99.0 F 99.7 F H Pulse Rate 86 92 H Pulse Rate [ 92 H Right] Respiratory 29 H 22 H 18 Rate Blood Pressure 105/51 L 83/54 L Blood Pressure 165/118 H [Right Arm] O2 Sat by Pulse 97 97 Oximetry (%) 04/05/19 04/05/19 06:00 09:00 Temperature 99.6 F 99.3 F Pulse Rate 90 85 Pulse Rate [ Right] Respiratory 18 19 Rate Blood Pressure 102/60 88/57 L Blood Pressure [Right Arm] O2 Sat by Pulse Oximetry (%) Laboratory Results - last 24 hr 04/04/19 04/04/19 04/05/19 13:20 19:00 06:55 WBC 13.3 H RBC 2.69 L Hgb 8.4 L Hct 25.1 L MCV 93.5 MCH 31.3 MCHC 33.5 RDW 16.8 H Plt Count 146 MPV 10.1 Absolute Neuts (auto) 10.2 H Neutrophils % 76.9 Lymphocytes % 16.3 Monocytes % 5.7 Eosinophils % 0.7 D Basophils % 0.4 Nucleated RBC % 0 Sodium 163 H* 161 H* Potassium 3.5 3.5 Chloride 129 H 125 H Carbon Dioxide 31 30 Anion Gap 3 L 5 L BUN 30.0 H 28.8 H Creatinine 1.1 1.3 Est GFR (CKD-EPI)AfAm 60.59 49.51 Est GFR (CKD-EPI)NonAf 52.28 42.71 Random Glucose 89 101 Calcium 9.3 9.2 Total Bilirubin AST ALT Alkaline Phosphatase Total Protein Albumin 04/05/19 06:55 WBC RBC Hgb Hct MCV MCH MCHC RDW Plt Count MPV Absolute Neuts (auto) Neutrophils % Lymphocytes % Monocytes % Eosinophils % Basophils % Nucleated RBC % Sodium 162 H* Potassium 3.3 L Chloride 124 H Carbon Dioxide 26 Anion Gap 11 BUN 23.6 H Creatinine 1.0 Est GFR (CKD-EPI)AfAm 67.99 Est GFR (CKD-EPI)NonAf 58.66 Random Glucose 122 H Calcium 8.8 Total Bilirubin 0.5 AST 40 H ALT 13 Alkaline Phosphatase 155 H Total Protein 6.6 Albumin 2.2 L edema+ Microbiology 04/03/19 15:30 Blood - Peripheral Venous Blood Culture - Preliminary Staphylococcus Coagulase Neg 04/03/19 14:50 Blood - Peripheral Venous Blood Culture - Preliminary NO GROWTH OBTAINED AFTER 24 HOURS, INCUBATION TO CONTINUE FOR 4 DAYS. 04/03/19 14:33 Urine - Urine - Catheterized Urine Culture - Final NO GROWTH OBTAINED A/P Sepsis pneumonia Failure to thrive Hypernatremia Dehydration -->iv fluids-->spoke with renal about changing -->cultures noted-- one positive--> check echo -->iv antibiotics ---> ID follow up -->renal eval noted -->she has loose bm now--> may need to change feeds Problem List - Problems (1) NICOLÁS (acute kidney injury) Code(s): N17.9 - ACUTE KIDNEY FAILURE, UNSPECIFIED (2) Hypernatremia Code(s): E87.0 - HYPEROSMOLALITY AND HYPERNATREMIA (3) Pneumonia Code(s): J18.9 - PNEUMONIA, UNSPECIFIED ORGANISM Qualifiers: Pneumonia type: due to unspecified organism Laterality: left Lung location: lower lobe of lung Qualified Code(s): J18.1 - Lobar pneumonia, unspecified organism (4) Sepsis Code(s): A41.9 - SEPSIS, UNSPECIFIED ORGANISM Qualifiers: Sepsis type: sepsis due to unspecified organism Sepsis acute organ dysfunction status: with acute organ dysfunction Severe sepsis acute organ dysfunction type: acute renal failure Acute renal failure type: unspecified Severe sepsis shock status: without septic shock Qualified Code(s): A41.9 - Sepsis, unspecified organism; R65.20 - Severe sepsis without septic shock; N17.9 - Acute kidney failure, unspecified (5) Functional quadriplegia Code(s): R53.2 - FUNCTIONAL QUADRIPLEGIA (6) HLD (hyperlipidemia) Code(s): E78.5 - HYPERLIPIDEMIA, UNSPECIFIED (7) HTN (hypertension) Code(s): I10 - ESSENTIAL (PRIMARY) HYPERTENSION
--- NOTE | 2019-04-05 11:53 | PN ---
Progress Note (short form) - Note Progress Note: Renal follow up for hypernatremia and NICOLÁS Seen and examined at the bedside awake but not talking nurse reports loose BM his AM on IVF no fevers overnight Vital Signs Temperature 99.3 F 04/05/19 09:00 Pulse Rate 85 04/05/19 09:00 Respiratory Rate 19 04/05/19 09:00 Blood Pressure 88/57 L 04/05/19 09:00 O2 Sat by Pulse Oximetry (%) 97 04/04/19 22:00 Intake & Output 04/02/19 04/03/19 04/04/19 04/05/19 23:59 23:59 23:59 23:59 Intake Total 1085 1610 Balance 1085 1610 Weight 65.136 kg 58.06 kg NAD RRR CTA soft NT/ND, feeding tube in place no LE edema CBC, BMP 04/05/19 06:55 04/05/19 06:55 Current Medications Acetaminophen (Tylenol Oral Solution -) 650 mg GT Q6H PRN PRN Reason: FEVER Last Admin: 04/05/19 10:21 Dose: 650 mg Ascorbic Acid (Vitamin C -) 500 mg GT DAILY [facility] Last Admin: 04/05/19 10:32 Dose: 500 mg Aspirin (Asa -) 81 mg GT DAILY [facility] Last Admin: 04/05/19 10:32 Dose: 81 mg Atorvastatin Calcium (Lipitor -) 40 mg GT HS [facility] Last Admin: 04/04/19 23:22 Dose: 40 mg Carbidopa/Levodopa (Sinemet 25/250 -) 1 each GT TID [facility] Last Admin: 04/05/19 06:13 Dose: 1 each Collagenase (Santyl -) 1 applic TP DAILY [facility]; Protocol Last Admin: 04/05/19 10:34 Dose: 1 applic Folic Acid (Folic Acid -) 1 mg GT DAILY [facility] Last Admin: 04/05/19 10:32 Dose: 1 mg Piperacillin Sod/Tazobactam (Sod 3.375 gm/ Dextrose) 50 mls @ 100 mls/hr IVPB Q8H-IV [facility]; Protocol Last Admin: 04/05/19 10:20 Dose: 100 mls/hr Dextrose/Sodium Chloride (D5-1/3ns+20 Meq Kcl -) 20 meq in 1,000 mls @ 125 mls/ hr IV ASDIR [facility] Lacosamide (Vimpat Liquid -) 200 mg GT BID [facility] Last Admin: 04/05/19 10:22 Dose: 200 mg Levetiracetam (Keppra Oral Solution -) 500 mg PO BID [facility] Last Admin: 04/05/19 10:33 Dose: 500 mg Magnesium Oxide (Mag-Ox -) 400 mg GT BID [facility] Last Admin: 04/05/19 10:32 Dose: 400 mg Midodrine (Proamatine -) 5 mg GT TID-MID [facility] Last Admin: 04/05/19 10:34 Dose: 5 mg Mirtazapine (Remeron -) 7.5 mg GT HS [facility] Last Admin: 04/04/19 23:17 Dose: 7.5 mg Multi-Ingredient Ointment (Zinc Oxide) 1 applic TP BID [facility] Last Admin: 04/05/19 10:34 Dose: 1 applic Oxcarbazepine (Trileptal -) 300 mg PO TID [facility] Last Admin: 04/05/19 06:13 Dose: 300 mg Ranitidine HCl (Zantac Oral Solution -) 150 mg GT BID [facility] Last Admin: 04/05/19 10:32 Dose: 150 mg 68 year old woman with history of respiratory failure, stroke, CAD s/p STEMI, hypertension, hyperlipidemia, seizure disorder, MDD who presented with fever and respiratory distress and found to have serum na of 162 and Cr of 1.5. Baseline Cr 0.4-0.8. 1. Acute Kidney injury in setting of suspected sepsis 2. Hypernatremia 3. Lactic acidosis 4. Suspected Sepsis 5. Chronic respiratory failure BUN/Cr is improved but remains above baseline Serum na with suboptimal improvement likely due to increased free water loss with loose stools will change IVF to D5 1/3 NS with KCl and increase free water via G-tube Repeat BMP this evening if she is hypotensive should get isotonic saline bolous as needed prognosis is guarded overall Thank you Constantino Mejía DO
[2019-04-05] MEDS ORDERED: D5-1/3NS+20 MEQ KCL - 20 MEQ/1,000 ML INFUS.BAG IV SCH (12:00)
[2019-04-05 12:34] VITALS: BMI 20.6
--- NOTE | 2019-04-05 13:37 | PN ---
Progress Note (short form) - Note Progress Note: Awake but not conversant. Noted marginal BOP that is improving with IVF. ECHO being completed at bedside. Intake & Output 04/02/19 04/03/19 04/04/19 04/05/19 23:59 23:59 23:59 23:59 Intake Total 1085 1610 Balance 1085 1610 Weight 143 lb 9.6 oz 128 lb 128 lb Last Vital Signs Temp Pulse Resp BP Pulse Ox 99.3 F 85 19 88/57 L 98 04/05/19 09:00 04/05/19 09:00 04/05/19 09:00 04/05/19 09:00 04/05/19 09:00 Active Medications Acetaminophen (Tylenol Oral Solution -) 650 mg GT Q6H PRN PRN Reason: FEVER Last Admin: 04/05/19 10:21 Dose: 650 mg Ascorbic Acid (Vitamin C -) 500 mg GT DAILY [facility] Last Admin: 04/05/19 10:32 Dose: 500 mg Aspirin (Asa -) 81 mg GT DAILY [facility] Last Admin: 04/05/19 10:32 Dose: 81 mg Atorvastatin Calcium (Lipitor -) 40 mg GT HS [facility] Last Admin: 04/04/19 23:22 Dose: 40 mg Carbidopa/Levodopa (Sinemet 25/250 -) 1 each GT TID [facility] Last Admin: 04/05/19 06:13 Dose: 1 each Collagenase (Santyl -) 1 applic TP DAILY [facility]; Protocol Last Admin: 04/05/19 10:34 Dose: 1 applic Folic Acid (Folic Acid -) 1 mg GT DAILY [facility] Last Admin: 04/05/19 10:32 Dose: 1 mg Piperacillin Sod/Tazobactam (Sod 3.375 gm/ Dextrose) 50 mls @ 100 mls/hr IVPB Q8H-IV [facility]; Protocol Last Admin: 04/05/19 10:20 Dose: 100 mls/hr Dextrose/Sodium Chloride (D5-1/3ns+20 Meq Kcl -) 20 meq in 1,000 mls @ 125 mls/ hr IV ASD[facility] Lacosamide (Vimpat Liquid -) 200 mg GT BID [facility] Last Admin: 04/05/19 10:22 Dose: 200 mg Levetiracetam (Keppra Oral Solution -) 500 mg PO BID [facility] Last Admin: 04/05/19 10:33 Dose: 500 mg Magnesium Oxide (Mag-Ox -) 400 mg GT BID [facility] Last Admin: 04/05/19 10:32 Dose: 400 mg Midodrine (Proamatine -) 5 mg GT TID-MID [facility] Last Admin: 04/05/19 10:34 Dose: 5 mg Mirtazapine (Remeron -) 7.5 mg GT HS [facility] Last Admin: 04/04/19 23:17 Dose: 7.5 mg Multi-Ingredient Ointment (Zinc Oxide) 1 applic TP BID [facility] Last Admin: 04/05/19 10:34 Dose: 1 applic Oxcarbazepine (Trileptal -) 300 mg PO TID [facility] Last Admin: 04/05/19 06:13 Dose: 300 mg Ranitidine HCl (Zantac Oral Solution -) 150 mg GT BID [facility] Last Admin: 04/05/19 10:32 Dose: 150 mg Constitutional: Yes: Awake, NAD, not conversant Eyes: Yes: Conjunctiva Clear, EOM Intact HENT: Yes: Atraumatic, Normocephalic Neck: Yes: Supple, Trachea Midline Cardiovascular: Yes: Tachycardia Respiratory: Yes: Diminished breath sounds at the bases ...Clubbing: No Gastrointestinal: Yes: Normal Bowel Sounds, Soft. No: Tenderness Edema: No Neurological: Yes: Lethargy Labs: Laboratory Results - last 24 hr 04/04/19 04/04/19 04/05/19 13:20 19:00 06:55 WBC 13.3 H RBC 2.69 L Hgb 8.4 L Hct 25.1 L MCV 93.5 MCH 31.3 MCHC 33.5 RDW 16.8 H Plt Count 146 MPV 10.1 Absolute Neuts (auto) 10.2 H Neutrophils % 76.9 Lymphocytes % 16.3 Monocytes % 5.7 Eosinophils % 0.7 D Basophils % 0.4 Nucleated RBC % 0 Sodium 163 H* 161 H* Potassium 3.5 3.5 Chloride 129 H 125 H Carbon Dioxide 31 30 Anion Gap 3 L 5 L BUN 30.0 H 28.8 H Creatinine 1.1 1.3 Est GFR (CKD-EPI)AfAm 60.59 49.51 Est GFR (CKD-EPI)NonAf 52.28 42.71 Random Glucose 89 101 Calcium 9.3 9.2 Total Bilirubin AST ALT Alkaline Phosphatase Total Protein Albumin 04/05/19 06:55 WBC RBC Hgb Hct MCV MCH MCHC RDW Plt Count MPV Absolute Neuts (auto) Neutrophils % Lymphocytes % Monocytes % Eosinophils % Basophils % Nucleated RBC % Sodium 162 H* Potassium 3.3 L Chloride 124 H Carbon Dioxide 26 Anion Gap 11 BUN 23.6 H Creatinine 1.0 Est GFR (CKD-EPI)AfAm 67.99 Est GFR (CKD-EPI)NonAf 58.66 Random Glucose 122 H Calcium 8.8 Total Bilirubin 0.5 AST 40 H ALT 13 Alkaline Phosphatase 155 H Total Protein 6.6 Albumin 2.2 L Assessment/Plan Sacral Osteomyelitis Sepsis Acute Kidney Injury Lactic Acidosis Dehydration/Hypernatremia Left Atelectasis h/o CVA HTN Hyperlipidemia Seizure Disorder - antibiotics per ID - f/u cultures - do not suspect pneumonia at this time - aspiration precautions - free water replacement - monitor lytes - IVF for hypotension - monitor urine output, creatinine - DVT prophylaxis Dr Early
--- NOTE | 2019-04-05 16:07 | ECHO ---
Name: HONEY ALNOZO Exam:Adult Echocardiogram Study Date: 04/05/2019 01:05 PM Age: 68 yrs Reason For Study: lvef Height: 66 in Weight: 128 lb BSA: 1.7 m2 MMode/2D Measurements & Calculations IVSd: 0.85 cm Ao root diam: 3.2 cm LVIDd: 3.5 cm LVPWd: 0.83 cm EDV(Teich): 50.7 ml LVOT diam: 2.0 cm LVLd ap4: 7.2 cm SV(MOD-sp4): 36.0 ml EDV(MOD-sp4): 59.0 ml LVLs ap4: 6.1 cm ESV(MOD-sp4): 23.0 ml Doppler Measurements & Calculations MV E max alexander: 70.6 cm/sec Ao V2 max: 150.6 cm/sec MV A max alexander: 100.2 cm/sec Ao max P.1 mmHg MV E/A: 0.70 Ao V2 mean: 96.2 cm/sec MV dec time: 0.28 sec Ao mean P.5 mmHg Ao V2 VTI: 27.0 cm GIA(I,D): 2.2 cm2 GIA(V,D): 2.4 cm2 LV V1 max P.5 mmHg SV(LVOT): 60.2 ml LV V1 mean P.4 mmHg LV V1 max: 117.5 cm/sec LV V1 mean: 64.3 cm/sec LV V1 VTI: 19.7 cm Med Peak E' Alexander: 7.6 cm/sec Med E/e': 9.3 Lat Peak E' Alexander: 9.7 cm/sec Lat E/e': 7.3 Procedure A complete two-dimensional transthoracic echocardiogram was performed (2D, M-mode, Doppler and color flow Doppler). Left Ventricle The left ventricular size, thickness and function are normal. The left ventricular ejection fraction is normal. Ejection Fraction = 60-65%. The left ventricular wall motion is normal. Right Ventricle The right ventricle is normal in size and function. Atria Normal left and right atrial size and function. Mitral Valve There is no mitral regurgitation noted. Tricuspid Valve There is trace tricuspid regurgitation. There was insufficient TR detected to calculate RV systolic p ressure. Aortic Valve No hemodynamically significant valvular aortic stenosis. No aortic regurgitation is present. Pulmonic Valve There is no pulmonic valvular regurgitation. Great Vessels The aortic root is normal size. Pericardium/Pleura There is no pericardial effusion. Interpretation Summary The left ventricular size, thickness and function are normal The right ventricle is normal in size and function. There is trace tricuspid regurgitation. MD Manuel Uribe 04/05/2019 04:06 PM
[2019-04-05] MEDS ORDERED: DEXTROSE 5%-1/3 NS - 500 ML with POTASSIUM CHLORIDE 10 MEQ IVPB SCH (17:00)
[2019-04-05] MEDS: POTASSIUM CHLORIDE 10 MEQ in DEXTROSE 5%-1/3 NS - 500 ML IVPB SCH ×2 (17:42→22:53)
[2019-04-05 21:01] LABS: BLOOD UREA NITROGEN 18.4 mg/dL (7-18); CALCIUM 9.2 mg/dL (8.5-10.1); CREATININE 0.9 mg/dL (0.55-1.3); POTASSIUM 3.2 mmol/L (3.5-5.1)
[2019-04-05] MEDS: ATORVASTATIN CA 40 MG TABLET (FP) GT SCH (22:44)
[2019-04-05] MEDS: MIRTAZAPINE 15 MG TABLET (FP) GT SCH (22:45)
[2019-04-06] MEDS ORDERED: DEXTROSE 5%-WATER - 50 ML IVPB ONE ×2 (01:36→10:30)
[2019-04-06] MEDS ORDERED: PIPERACILLIN/TAZOBACTAM 3.375 GM VIAL IVPB ONE ×2 (01:36→10:29)
[2019-04-06] MEDS: PIPERACILLIN/TAZOB 3.375 GM 3.375 GM in DEXTROSE 5%-WATER - 50 ML IVPB SCH ×3 (02:12→19:07)
[2019-04-06] MEDS: POTASSIUM CHLORIDE 10 MEQ in DEXTROSE 5%-1/3 NS - 500 ML IVPB SCH ×3 (03:45→23:09)
--- NOTE | 2019-04-06 04:42 | HOSP ---
Subjective - Review of Symptoms Events since last encounter: Hospitalist Encounter Notified by the RN that the patient had an episode of coffee ground emesis. Arrived to bedside, patient is awake- non-verbal at baseline. Large coffee ground emesis noted to gown. Plan: Large Bore IV stat CBC, BMP, Type N Screen, INR stat Protonix IV GI Consult Gastrointestinal: Yes: Vomiting (Coffee Ground Emesis) Physical Examination Vital Signs: Vital Signs Temperature 99.6 F 04/06/19 02:00 Pulse Rate 112 H 04/06/19 02:00 Respiratory Rate 18 04/06/19 02:00 Blood Pressure 112/71 04/06/19 02:00 O2 Sat by Pulse Oximetry (%) 97 04/05/19 21:00 Constitutional: Yes: Mild Distress, Other (Non-verbal) Eyes: Yes: Conjunctiva Clear, PERRL HENT: Yes: Atraumatic, Normocephalic, Drooling Neck: Yes: Supple, Trachea Midline Cardiovascular: Yes: Regular Rate and Rhythm, S1, S2 Respiratory: Yes: Diminished (L- Base), On Nasal O2 Gastrointestinal: Yes: Hematemesis (Coffee Ground), Other (PEG) Renal/: Yes: Incontinence Edema: No Peripheral Pulses WNL: Yes Neurological: Yes: Pre-Existing Deficit Psychiatric: Yes: Other (non verbal- at baseline) Labs: CBC, BMP 04/05/19 06:55 04/05/19 20:00 Hospitalist Encounter Outcome: H/H 8.2/25.6, Plt 154 Na 157 improving Will repeat CBC in 4 hrs PRBCs held for now Called patient's next of kin- Osmel Isidro (son), no answer, left a voice message to call [phone] regarding the patient. Critical Care Total Critical Care Time (in minutes): 45 Critical Care Statement: The care of this patient involved high complexity decision making to prevent further life threatening deterioration of the patient 's condition and/or to evaluate & treat vital organ system(s) failure or risk of failure.
[2019-04-06] MEDS ORDERED: PANTOPRAZOLE SODIUM 40 MG VIAL IVPUSH ONE (04:47)
[2019-04-06 05:25] LABS: BASO % 0.4 % (0-2.0); EOS % 0.9 % (0-4.5); HEMATOCRIT 25.6 % (32.4-45.2); HEMOGLOBIN 8.2 GM/dL (10.7-15.3); LYMPH % 13.5 % (8-40); MCH 30.3 pg (25.7-33.7); MCHC 32.1 g/dl (32.0-36.0); MEAN CELL VOLUME 94.4 fl (80-96); MEAN PLT VOLUME 10.7 fl (7.5-11.1); MONO % 5.1 % (3.8-10.2); NEUT % 80.1 % (42.8-82.8); PLATELET COUNT 154 K/MM3 (134-434); RBC 2.71 M/mm3 (3.60-5.2); RDW 16.9 % (11.6-15.6); WHITE BLOOD COUNT 12.5 K/mm3 (4.0-10.0)
[2019-04-06 05:35] LABS: INR 1.11 (0.83-1.09); PROTHROMBIN TIME (PATIENT) 13.1 SEC (9.7-13.0)
[2019-04-06 05:45] LABS: ALBUMIN 2.1 g/dl (3.4-5.0); BILIRUBIN,TOTAL 0.3 mg/dL (0.2-1); BLOOD UREA NITROGEN 16.2 mg/dL (7-18); CALCIUM 8.6 mg/dL (8.5-10.1); CREATININE 0.8 mg/dL (0.55-1.3); MAGNESIUM 2.3 mg/dL (1.8-2.4); PHOSPHOROUS 2.9 mg/dL (2.5-4.9); POTASSIUM 3.6 mmol/L (3.5-5.1); TOT PROT 6.4 g/dl (6.4-8.2)
[2019-04-06] MEDS: OXcarbazepine 300 MG TABLET (UD) PO SCH ×3 (06:37→23:05)
[2019-04-06] MEDS: CARBIDOPA/LEVODOPA 25/250 TABLET (FP) GT SCH ×3 (06:37→23:06)
[2019-04-06] MEDS ORDERED: PT OWN MED DRAWER 7, Y5N ONE ×2 (10:29→20:18)
[2019-04-06] MEDS: ZINC OXIDE 20% TOPICAL OINTMENT 30 GM TUBE TP SCH ×2 (10:41→23:08)
[2019-04-06] MEDS: COLLAGENASE CLOSTRIDIUM HIST. 30 GRAMS TUBE TP SCH (10:42)
[2019-04-06] MEDS: ASPIRIN 81 MG CHEWABLE TABLETS GT SCH (10:59)
[2019-04-06] MEDS: Lacosamide 50 MG/5 ML ORAL SOLUTION UNIT CUPS GT SCH ×2 (11:04→23:08)
[2019-04-06] MEDS: RANITIDINE HCL 150 MG/10 ML UNIT-DOSE GT SCH (11:05)
[2019-04-06] MEDS: MAGNESIUM OXIDE 400 MG TABLET (FP) GT SCH ×2 (11:05→23:07)
[2019-04-06] MEDS: FOLIC ACID 1 MG TABLET (FP) GT SCH (11:05)
[2019-04-06] MEDS: levETIRAcetam 500 MG/5 ML ORAL SOLUTION (UNIT-DOSE CUPS) PO SCH ×2 (11:05→23:08)
[2019-04-06] MEDS: ASCORBIC ACID 500 MG TABLET (FP) GT SCH (11:06)
[2019-04-06] MEDS: MIDODRINE HCL 5 MG TABLET GT SCH ×3 (11:07→18:06)
--- NOTE | 2019-04-06 11:28 | PN ---
Progress Note (short form) - Note Progress Note: pt seen/ examined chart reviewed d/w rn episode of coffee ground vomittus h/h noted transfusion was ordered but unable to reach son- signed 2 physician consent repeat cbc - ordered - will transfuse if HB<8 Gi consult also requested pt awake comfortable chronic ill appearance Vital Signs Temp 98.6 F 04/06/19 06:00 Pulse 98 H 04/06/19 06:00 Resp 16 04/06/19 06:00 BP 110/61 04/06/19 06:00 Pulse Ox 97 04/05/19 21:00 Intake & Output 04/05/19 04/05/19 04/06/19 11:59 23:59 11:59 Intake Total 1610 4310 Balance 1610 4310 Weight 128 lb Intake: IV 1000 2250 1/2 Normal Saline 1,000 1000 1750 ml @ 125 mls/hr IV ASDIR [facility] Rx#:[id number] D5-1/3Ns - 500 ml @ 125 500 mls/hr IVPB [facility] with KCl - 10 Meq Rx#: [id number] IVPB 50 100 Tube Feeding 400 1080 Tube Irrigant 160 880 Other: Voiding Method Incontinent Incontinent Incontinent # Unmeasured Voids Void 1 1 Bowel Movement Yes Yes Yes # Bowel Movements 1 1 1 Height 5 ft 6 in Body Mass Index (BMI) 20.6 Active Medications Acetaminophen (Tylenol Oral Solution -) 650 mg GT Q6H PRN PRN Reason: FEVER Last Admin: 04/05/19 18:01 Dose: 650 mg Ascorbic Acid (Vitamin C -) 500 mg GT DAILY [facility] Last Admin: 04/06/19 11:06 Dose: 500 mg Aspirin (Asa -) 81 mg GT DAILY [facility] Last Admin: 04/06/19 10:59 Dose: Not Given Atorvastatin Calcium (Lipitor -) 40 mg GT HS [facility] Last Admin: 04/05/19 22:44 Dose: 40 mg Carbidopa/Levodopa (Sinemet 25/250 -) 1 each GT TID [facility] Last Admin: 04/06/19 06:37 Dose: Not Given Collagenase (Santyl -) 1 applic TP DAILY [facility]; Protocol Last Admin: 04/06/19 10:42 Dose: 1 applic Folic Acid (Folic Acid -) 1 mg GT DAILY [facility] Last Admin: 04/06/19 11:05 Dose: 1 mg Piperacillin Sod/Tazobactam (Sod 3.375 gm/ Dextrose) 50 mls @ 100 mls/hr IVPB Q8H-IV [facility]; Protocol Last Admin: 04/06/19 10:40 Dose: 100 mls/hr Potassium Chloride 10 meq/ (Dextrose/Sodium Chloride) 505 mls @ 125 mls/hr IVPB [facility] Last Admin: 04/06/19 03:45 Dose: 125 mls/hr Lacosamide (Vimpat Liquid -) 200 mg GT BID [facility] Last Admin: 04/06/19 11:04 Dose: 200 mg Levetiracetam (Keppra Oral Solution -) 500 mg PO BID [facility] Last Admin: 04/06/19 11:05 Dose: 500 mg Magnesium Oxide (Mag-Ox -) 400 mg GT BID [facility] Last Admin: 04/06/19 11:05 Dose: 400 mg Midodrine (Proamatine -) 5 mg GT TID-MID [facility] Last Admin: 04/06/19 11:07 Dose: 5 mg Mirtazapine (Remeron -) 7.5 mg GT HS [facility] Last Admin: 04/05/19 22:45 Dose: 7.5 mg Multi-Ingredient Ointment (Zinc Oxide) 1 applic TP BID [facility] Last Admin: 04/06/19 10:41 Dose: 1 applic Oxcarbazepine (Trileptal -) 300 mg PO TID [facility] Last Admin: 04/06/19 06:37 Dose: Not Given Ranitidine HCl (Zantac Oral Solution -) 150 mg GT BID [facility] Last Admin: 04/06/19 11:05 Dose: 150 mg 04/06/19 04:48 04/06/19 04:48 echo- Normal lv function No vegetations Physical Awake/ Poor historian No distress S1 S2 RRR Lungs decreased Abd- soft, Peg+NT A/P GI bleed Sepsis pneumonia Failure to thrive Hypernatremia Dehydration Hold feeding I/v fluids i/v protonix d/c asa transfuse if bleed again or HB< 8 will follow Condition gaurded D/W Rn also Problem List - Problems (1) GI bleed Code(s): K92.2 - GASTROINTESTINAL HEMORRHAGE, UNSPECIFIED (2) NICOLÁS (acute kidney injury) Code(s): N17.9 - ACUTE KIDNEY FAILURE, UNSPECIFIED (3) Hypernatremia Code(s): E87.0 - HYPEROSMOLALITY AND HYPERNATREMIA (4) Osteomyelitis Code(s): M86.9 - OSTEOMYELITIS, UNSPECIFIED (5) Sepsis Code(s): A41.9 - SEPSIS, UNSPECIFIED ORGANISM Qualifiers: Sepsis type: sepsis due to unspecified organism Sepsis acute organ dysfunction status: with acute organ dysfunction Severe sepsis acute organ dysfunction type: acute renal failure Acute renal failure type: unspecified Severe sepsis shock status: without septic shock Qualified Code(s): A41.9 - Sepsis, unspecified organism; R65.20 - Severe sepsis without septic shock; N17.9 - Acute kidney failure, unspecified
[2019-04-06 11:38] LABS: BASO % 0.5 % (0-2.0); HEMATOCRIT 24.9 % (32.4-45.2); HEMOGLOBIN 7.9 GM/dL (10.7-15.3); LYMPH % 20.7 % (8-40); MCHC 31.9 g/dl (32.0-36.0); MEAN CELL VOLUME 90.7 fl (80-96); MEAN PLT VOLUME 10.2 fl (7.5-11.1); NEUT % 72.8 % (42.8-82.8); PLATELET COUNT 148 K/MM3 (134-434); RBC 2.74 M/mm3 (3.60-5.2); RDW 17.2 % (11.6-15.6); WHITE BLOOD COUNT 12.2 K/mm3 (4.0-10.0)
--- NOTE | 2019-04-06 12:43 | PN ---
Progress Note, Physician History of Present Illness: better receiving blood tranfusion mentally still confused - Current Medication List Current Medications: Active Medications Acetaminophen (Tylenol Oral Solution -) 650 mg GT Q6H PRN PRN Reason: FEVER Last Admin: 04/05/19 18:01 Dose: 650 mg Ascorbic Acid (Vitamin C -) 500 mg GT DAILY [facility] Last Admin: 04/06/19 11:06 Dose: 500 mg Atorvastatin Calcium (Lipitor -) 40 mg GT HS [facility] Last Admin: 04/05/19 22:44 Dose: 40 mg Carbidopa/Levodopa (Sinemet 25/250 -) 1 each GT TID [facility] Last Admin: 04/06/19 06:37 Dose: Not Given Collagenase (Santyl -) 1 applic TP DAILY [facility]; Protocol Last Admin: 04/06/19 10:42 Dose: 1 applic Folic Acid (Folic Acid -) 1 mg GT DAILY [facility] Last Admin: 04/06/19 11:05 Dose: 1 mg Piperacillin Sod/Tazobactam (Sod 3.375 gm/ Dextrose) 50 mls @ 100 mls/hr IVPB Q8H-IV [facility]; Protocol Last Admin: 04/06/19 10:40 Dose: 100 mls/hr Potassium Chloride 10 meq/ (Dextrose/Sodium Chloride) 505 mls @ 125 mls/hr IVPB [facility] Last Admin: 04/06/19 03:45 Dose: 125 mls/hr Lacosamide (Vimpat Liquid -) 200 mg GT BID [facility] Last Admin: 04/06/19 11:04 Dose: 200 mg Levetiracetam (Keppra Oral Solution -) 500 mg PO BID [facility] Last Admin: 04/06/19 11:05 Dose: 500 mg Magnesium Oxide (Mag-Ox -) 400 mg GT BID [facility] Last Admin: 04/06/19 11:05 Dose: 400 mg Midodrine (Proamatine -) 5 mg GT TID-MID [facility] Last Admin: 04/06/19 11:07 Dose: 5 mg Mirtazapine (Remeron -) 7.5 mg GT HS [facility] Last Admin: 04/05/19 22:45 Dose: 7.5 mg Multi-Ingredient Ointment (Zinc Oxide) 1 applic TP BID [facility] Last Admin: 04/06/19 10:41 Dose: 1 applic Oxcarbazepine (Trileptal -) 300 mg PO TID [facility] Last Admin: 04/06/19 06:37 Dose: Not Given Ranitidine HCl (Zantac Oral Solution -) 150 mg GT BID [facility] Last Admin: 04/06/19 11:05 Dose: 150 mg - Objective Vital Signs: Vital Signs Temperature 98.6 F 04/06/19 06:00 Pulse Rate 98 H 04/06/19 06:00 Respiratory Rate 16 04/06/19 06:00 Blood Pressure 110/61 04/06/19 06:00 O2 Sat by Pulse Oximetry (%) 97 04/05/19 21:00 Constitutional: Yes: No Distress, Calm Cardiovascular: Yes: S1, S2 Respiratory: Yes: Regular, CTA Bilaterally Gastrointestinal: Yes: Normal Bowel Sounds, Soft Musculoskeletal: Yes: WNL Extremities: Yes: WNL Neurological: Yes: Alert, Other Psychiatric: Yes: Other Labs: CBC, BMP 04/06/19 11:20 04/06/19 04:48 INR, PTT INR 1.11 (0.83-1.09) H 04/06/19 04:48 Assessment/Plan this patient with multiple medical problems coming wiht fever and resp distress with ct scan showing a new infiltrate and leukocytosis currently patient looks better sacral decubitus ulcer foul smelling decubitus ulcer fever resp distress leukocytosis plan continue abx hydration nephro close watch nutrition monitor wbc wound care
--- NOTE | 2019-04-06 15:48 | PN ---
Progress Note (short form) - Note Progress Note: Renal follow up for hypernatremia and NICOLÁS Seen and examined at the bedside awake currently not getting feeds due to suspicion of GI bleed on IVF Vital Signs Temperature 99.4 F 04/06/19 10:00 Pulse Rate 75 04/06/19 10:00 Respiratory Rate 24 H 04/06/19 10:00 Blood Pressure 132/78 04/06/19 10:00 O2 Sat by Pulse Oximetry (%) 100 04/06/19 09:00 Intake & Output 04/03/19 04/04/19 04/05/19 04/06/19 23:59 23:59 23:59 23:59 Intake Total 1085 5920 Balance 1085 5920 Weight 65.136 kg 58.06 kg 58.06 kg NAD RRR CTA soft NT/ND, feeding tube in place no LE edema CBC, BMP 04/06/19 11:20 04/06/19 04:48 Current Medications Acetaminophen (Tylenol Oral Solution -) 650 mg GT Q6H PRN PRN Reason: FEVER Last Admin: 04/05/19 18:01 Dose: 650 mg Ascorbic Acid (Vitamin C -) 500 mg GT DAILY [facility] Last Admin: 04/06/19 11:06 Dose: 500 mg Atorvastatin Calcium (Lipitor -) 40 mg GT HS [facility] Last Admin: 04/05/19 22:44 Dose: 40 mg Carbidopa/Levodopa (Sinemet 25/250 -) 1 each GT TID [facility] Last Admin: 04/06/19 13:43 Dose: 1 each Collagenase (Santyl -) 1 applic TP DAILY [facility]; Protocol Last Admin: 04/06/19 10:42 Dose: 1 applic Folic Acid (Folic Acid -) 1 mg GT DAILY [facility] Last Admin: 04/06/19 11:05 Dose: 1 mg Piperacillin Sod/Tazobactam (Sod 3.375 gm/ Dextrose) 50 mls @ 100 mls/hr IVPB Q8H-IV [facility]; Protocol Last Admin: 04/06/19 10:40 Dose: 100 mls/hr Potassium Chloride 10 meq/ (Dextrose/Sodium Chloride) 505 mls @ 100 mls/hr IVPB [facility] Lacosamide (Vimpat Liquid -) 200 mg GT BID [facility] Last Admin: 04/06/19 11:04 Dose: 200 mg Levetiracetam (Keppra Oral Solution -) 500 mg PO BID [facility] Last Admin: 04/06/19 11:05 Dose: 500 mg Magnesium Oxide (Mag-Ox -) 400 mg GT BID [facility] Last Admin: 04/06/19 11:05 Dose: 400 mg Midodrine (Proamatine -) 5 mg GT TID-MID [facility] Last Admin: 04/06/19 13:43 Dose: 5 mg Mirtazapine (Remeron -) 7.5 mg GT HS [facility] Last Admin: 04/05/19 22:45 Dose: 7.5 mg Multi-Ingredient Ointment (Zinc Oxide) 1 applic TP BID [facility] Last Admin: 04/06/19 10:41 Dose: 1 applic Oxcarbazepine (Trileptal -) 300 mg PO TID [facility] Last Admin: 04/06/19 13:43 Dose: 300 mg Ranitidine HCl (Zantac Oral Solution -) 150 mg GT BID [facility] Last Admin: 04/06/19 11:05 Dose: 150 mg 68 year old woman with history of respiratory failure, stroke, CAD s/p STEMI, hypertension, hyperlipidemia, seizure disorder, MDD who presented with fever and respiratory distress and found to have serum na of 162 and Cr of 1.5. Baseline Cr 0.4-0.8. 1. Acute Kidney injury in setting of suspected sepsis 2. Hypernatremia 3. Lactic acidosis 4. Suspected Sepsis 5. Sacral wound Renal function improving Serum Na is improved, will maitain on D5 1 NS with KCl as pt is now NPO if she is hypotensive should get isotonic saline bolous as needed however BP has been stable over the last 24 hours prognosis is guarded overall Thank you Constantino Mejía DO
[2019-04-06 17:44] LABS: BASO % 0.4 % (0-2.0); EOS % 1.7 % (0-4.5); HEMATOCRIT 27.6 % (32.4-45.2); HEMOGLOBIN 8.8 GM/dl (10.7-15.3); LYMPH % 24.2 % (8-40); MCH 29.4 pg (25.7-33.7); MCHC 31.9 g/dl (32.0-36.0); MEAN CELL VOLUME 92.1 fl (80-96); MEAN PLT VOLUME 10.6 fl (7.5-11.1); MONO % 6.5 % (3.8-10.2); NEUT % 67.2 % (42.8-82.8); PLATELET COUNT 144 K/MM3 (134-434); RDW 16.2 % (11.6-15.6); WHITE BLOOD COUNT 10.6 K/mm3 (4.0-10.8)
[2019-04-06 17:45] LABS: ADD RBC MORPHOLOGY NO
--- NOTE | 2019-04-06 20:44 | CON.GI ---
Consult Consult Specialty:: Gastroenterology ( covering the [facility] GI service) Referred by:: Mayi Barrera NP Reason for Consultation:: Anemia - History of Present Illness Chief Complaint: Patient offers no complaints History of Present Illness: 68F transferred from [place] for evaluation of fever. She has a large sacral decubitus. She came in dehydrated with electrolyte disturbances and been hydrated. With this her Hb has dropped but appears close to her baseline. She had coffee ground emesis earlier today but I get no blood on G tube lavage at present. No overt bleeding noted from rectum. No abnormalities found by Dr Santoro during PEG insertion on 05/26/17/ She had C diff colitis in 12/16. - History Source History Provided By: Medical Record Limitations to Obtaining History: Dementia - Past Medical History [employer]: Yes: CVA, Dementia, Seizure, TIA Cardio/Vascular: Yes: CAD, HTN, Hyperlipdemia, [place] Pulmonary: Yes: Other (Chronic Respiratory Failure) Gastrointestinal: Yes: Other (dysphagia, s/p peg, C diff colitis 12/16) Renal/: Yes: Renal Inusuff, Renal Calculi Heme/Onc: Yes: Anemia Infectious Disease: Yes: C-Diff (12/16) Additional Medical History: sacral decubitus - Past Surgical History Additional Surgical History: PEG insertion - Alcohol/Substance Use Hx Alcohol Use: No History of Substance Use: reports: None - Smoking History Smoking history: Unknown if ever smoked Have you smoked in the past 12 months: No - Social History Usual Living Arrangement: Long Term ADL: Support Services History of Recent Travel: No Home Medications - Allergies Allergies/Adverse Reactions: Allergies Allergy/AdvReac Type Severity Reaction Status Date / Time No Known Allergies Allergy Verified 11/06/18 18:03 - Home Medications Home Medications: Ambulatory Orders Acetaminophen [Tylenol] 650 mg GT Q4H PRN 04/03/19 Amantadine HCl [Amantadine] 100 mg GT BID 04/03/19 Ascorbic Acid [Vitamin C -] 500 mg GT DAILY 04/03/19 Aspirin 81 mg GT DAILY 04/03/19 Atorvastatin Calcium 40 mg GT HS 04/03/19 Carbidopa/Levodopa [Carbidopa-Levodopa 25-250 Tab] 1 each GT TID 04/03/19 Folic Acid 1 mg GT DAILY 04/03/19 Furosemide [Lasix -] 20 mg GT DAILY 04/03/19 Ibuprofen [Motrin -] 600 mg GT QID PRN 04/03/19 Lacosamide Liquid [Vimpat Liquid -] 200 mg GT BID 04/03/19 Magnesium Oxide [Mag-Oxide] 400 mg GT BID 04/03/19 Midodrine HCl [Proamatine -] 5 mg GT TID 04/03/19 Mirtazapine 7.5 mg GT HS 04/03/19 Omeprazole 20 mg GT DAILY 04/03/19 Oxcarbazepine [Trileptal -] 300 mg GT TID 04/03/19 Ranitidine [Zantac -] 150 mg GT HS 04/03/19 levETIRAcetam [Keppra -] 500 mg GT BID 04/03/19 Family Disease History - Family Disease History Family History: Unable to Obtain Review of Systems Unable to obtain ROS, reason: OMS Physical Exam-GI Vital Signs: Vital Signs Temperature 98.2 F 04/06/19 19:40 Pulse Rate 116 H 04/06/19 19:40 Respiratory Rate 24 H 04/06/19 19:40 Blood Pressure 121/49 L 04/06/19 19:40 O2 Sat by Pulse Oximetry (%) 100 04/06/19 09:00 CBC,CMP WBC 10.6 K/mm3 (4.0-10.8) 04/06/19 16:30 RBC 3.00 M/mm3 (3.60-5.2) L 04/06/19 16:30 Hgb 8.8 GM/dl (10.7-15.3) L 04/06/19 16:30 Hct 27.6 % (32.4-45.2) L 04/06/19 16:30 MCV 92.1 fl (80-96) 04/06/19 16:30 MCH 29.4 pg (25.7-33.7) 04/06/19 16:30 MCHC 31.9 g/dl (32.0-36.0) L 04/06/19 16:30 RDW 16.2 % (11.6-15.6) H 04/06/19 16:30 Plt Count 144 K/MM3 (134-434) 04/06/19 16:30 MPV 10.6 fl (7.5-11.1) 04/06/19 16:30 Absolute Neuts (auto) 7.1 K/mm3 04/06/19 16:30 Total Counted 100 04/03/19 15:30 Neutrophils % 67.2 % (42.8-82.8) 04/06/19 16:30 Neutrophils % (Manual) 73.5 % (42.8-82.8) 04/03/19 15:30 Band Neutrophils % 0.0 % 04/03/19 15:30 Lymphocytes % 24.2 % (8-40) 04/06/19 16:30 Lymphocytes % (Manual) 17.4 % (8-40) D 04/03/19 15:30 Monocytes % 6.5 % (3.8-10.2) 04/06/19 16:30 Monocytes % (Manual) 5 % (3.8-10.2) 04/03/19 15:30 Eosinophils % 1.7 % (0-4.5) 04/06/19 16:30 Eosinophils % (Manual) 0.0 % (0-4.5) 04/03/19 15:30 Basophils % 0.4 % (0-2.0) 04/06/19 16:30 Basophils % (Manual) 0.0 % (0-2.0) 04/03/19 15:30 Myelocytes % (Man) 1 % (0-2) D 04/03/19 15:30 Promyelocytes % (Man) 0 % (0-2) 04/03/19 15:30 Blast Cells % (Manual) 0 % (0-0) 04/03/19 15:30 Nucleated RBC % 0 % (0-0) 04/06/19 16:30 Metamyelocytes 1 % (0-2) D 04/03/19 15:30 Platelet Estimate Normal 04/03/19 15:30 Platelet Comment Present 04/03/19 15:30 Polychromasia 1+ 04/03/19 15:30 Poikilocytosis 1+ 04/03/19 15:30 Anisocytosis 1+ 04/03/19 15:30 Microcytosis 1+ 04/03/19 15:30 Macrocytosis 1+ 04/03/19 15:30 Target Cells 1+ 04/03/19 15:30 Sodium 157 mmol/L (136-145) H 04/06/19 04:48 Potassium 3.6 mmol/L (3.5-5.1) 04/06/19 04:48 Chloride 123 mmol/L (98-107) H 04/06/19 04:48 Carbon Dioxide 28 mmol/L (21-32) 04/06/19 04:48 Anion Gap 6 MMOL/L (8-16) L 04/06/19 04:48 BUN 16.2 mg/dL (7-18) 04/06/19 04:48 Creatinine 0.8 mg/dL (0.55-1.3) 04/06/19 04:48 Est GFR (CKD-EPI)AfAm 89.04 04/06/19 04:48 Est GFR (CKD-EPI)NonAf 76.83 04/06/19 04:48 Random Glucose 135 mg/dL (74-106) H 04/06/19 04:48 Lactic Acid 2.0 mmol/L (0.4-2.0) 04/03/19 17:00 Calcium 8.6 mg/dL (8.5-10.1) 04/06/19 04:48 Phosphorus 2.9 mg/dL (2.5-4.9) 04/06/19 04:48 Magnesium 2.3 mg/dL (1.8-2.4) 04/06/19 04:48 Total Bilirubin 0.3 mg/dL (0.2-1) 04/06/19 04:48 AST 31 U/L (15-37) 04/06/19 04:48 ALT 29 U/L (13-61) 04/06/19 04:48 Alkaline Phosphatase 146 U/L (45-117) H 04/06/19 04:48 Troponin I < 0.02 ng/ml (0.00-0.05) 04/03/19 15:30 Total Protein 6.4 g/dl (6.4-8.2) 04/06/19 04:48 Albumin 2.1 g/dl (3.4-5.0) L 04/06/19 04:48 Current Medications Generic Name Dose Route Start Last Admin Trade Name Freq PRN Reason Stop Dose Admin Acetaminophen 650 mg 04/03/19 23:53 04/05/19 18:01 Tylenol Oral Solution - GT 650 mg Q6H PRN Administration FEVER Ascorbic Acid 500 mg 04/04/19 10:00 04/06/19 11:06 Vitamin C - GT 500 mg DAILY [facility] Administration Atorvastatin Calcium 40 mg 04/03/19 22:00 04/05/19 22:44 Lipitor - GT 40 mg HS [facility] Administration Carbidopa/Levodopa 1 each 04/03/19 22:45 04/06/19 13:43 Sinemet 25/250 - GT 1 each TID [facility] Administration Collagenase 1 applic 04/04/19 11:00 04/06/19 10:42 Santyl - TP 1 applic DAILY [facility] Administration Protocol Folic Acid 1 mg 04/04/19 10:00 04/06/19 11:05 Folic Acid - GT 1 mg DAILY [facility] Administration Piperacillin Sod/Tazobactam 50 mls @ 100 mls/hr 04/04/19 18:00 04/06/19 19:07 Sod 3.375 gm/ Dextrose IVPB 100 mls/hr Q8H-IV [facility] Administration Protocol Potassium Chloride 10 meq/ 505 mls @ 100 mls/hr 04/06/19 15:46 04/06/19 16:35 Dextrose/Sodium Chloride IVPB 100 mls/hr Q5H [facility] Administration Lacosamide 200 mg 04/03/19 22:45 04/06/19 11:04 Vimpat Liquid - GT 200 mg BID [facility] Administration Levetiracetam 500 mg 04/03/19 22:45 04/06/19 11:05 Keppra Oral Solution - PO 500 mg BID [facility] Administration Magnesium Oxide 400 mg 04/04/19 10:00 04/06/19 11:05 Mag-Ox - GT 400 mg BID [facility] Administration Midodrine 5 mg 04/04/19 10:00 04/06/19 18:06 Proamatine - GT 5 mg TID-MID [facility] Administration Mirtazapine 7.5 mg 04/04/19 22:00 04/05/19 22:45 Remeron - GT 7.5 mg HS [facility] Administration Multi-Ingredient Ointment 1 applic 04/04/19 11:00 04/06/19 10:41 Zinc Oxide TP 1 applic BID [facility] Administration Oxcarbazepine 300 mg 04/04/19 06:00 04/06/19 13:43 Trileptal - PO 300 mg TID [facility] Administration Ranitidine HCl 150 mg 04/04/19 10:00 04/06/19 11:05 Zantac Oral Solution - GT 150 mg BID [facility] Administration Constitutional: Yes: Other (noncommunicative) Eyes: Yes: Conjunctiva Clear HENT: Yes: Atraumatic Neck: Yes: Supple Cardiovascular: Yes: Regular Rate and Rhythm Respiratory: Yes: CTA Bilaterally Gastrointestinal Inspection: Yes: Other (LUQ PEG tube wit mature fistula) ...Auscultate: Yes: Hypoactive Bowel Sounds ...Palpate: Yes: Soft, Other (nontender) ...Rectal Exam: Yes: Guaiac Positive (soft brown g positive stool) Labs: CBC, BMP 04/06/19 16:30 04/06/19 04:48 INR, PTT INR 1.11 (0.83-1.09) H 04/06/19 04:48 Laboratory Tests 04/23/17 12/20/17 04/19/18 06:00 05:58 05:30 Hgb 12.0 7.9 L 8.1 L 11/13/18 04/03/19 04/06/19 06:00 15:30 16:30 Hgb 9.9 L 10.4 L 8.8 L Problem List - Problems (1) GI bleed Assessment/Plan: It is not clear whether the coffee ground emesis reflects bleeding or stagnant small bowel contents as there is no active bleeding at present and her occult bleeding may reflect contamination from her decubitus. Would neverthless give PPI empirically Code(s): K92.2 - GASTROINTESTINAL HEMORRHAGE, UNSPECIFIED Qualifiers: GI bleed type/associated pathology: gastrointestinal hemorrhage with hematemesis Qualified Code(s): K92.0 - Hematemesis (2) NICOLÁS (acute kidney injury) Code(s): N17.9 - ACUTE KIDNEY FAILURE, UNSPECIFIED (3) Hypernatremia Code(s): E87.0 - HYPEROSMOLALITY AND HYPERNATREMIA (4) Anemia Code(s): D64.9 - ANEMIA, UNSPECIFIED Qualifiers: Anemia type: unspecified type Qualified Code(s): D64.9 - Anemia, unspecified (5) CVA (cerebral vascular accident) Code(s): I63.9 - CEREBRAL INFARCTION, UNSPECIFIED Qualifiers: CVA mechanism: unspecified Qualified Code(s): I63.9 - Cerebral infarction, unspecified (6) Chronic respiratory failure Code(s): J96.10 - CHRONIC RESPIRATORY FAILURE, UNSP W HYPOXIA OR HYPERCAPNIA (7) MODS (multiple organ dysfunction syndrome) Code(s): [id number] - (8) STEMI (ST elevation myocardial infarction) Code(s): I21.3 - ST ELEVATION (STEMI) MYOCARDIAL INFARCTION OF UNSP SITE Qualifiers: Involved coronary artery: LAD coronary artery Qualified Code(s): I21.02 - ST elevation (STEMI) myocardial infarction involving left anterior descending coronary artery (9) Seizures Code(s): R56.9 - UNSPECIFIED CONVULSIONS Assessment/Plan Assessment: - It is not clear whether the coffee ground emesis reflects bleeding or stagnant small bowel contents as there is no active bleeding at present and her occult bleeding may reflect contamination from her decubitus. Her Hb was have been dilated down to her baseline level and needs to be followed. Plan: -- PPI empirically -- Serial CBCs -- Reglan -- Iron studies -- The patient is not a candidate for elective endoscopies at this time
[2019-04-06] MEDS: MIRTAZAPINE 15 MG TABLET (FP) GT SCH (23:06)
[2019-04-06] MEDS: METOCLOPRAMIDE HCL INJECTION 10 MG/2 ML VIAL IVPUSH SCH (23:07)
[2019-04-06] MEDS: PANTOPRAZOLE SOD 40 MG SUSPENSION PACKET PEG SCH (23:07)
[2019-04-06] MEDS: ATORVASTATIN CA 40 MG TABLET (FP) GT SCH (23:07)
[2019-04-07] MEDS ORDERED: DEXTROSE 5%-WATER - 50 ML IVPB ONE ×3 (01:54→17:22)
[2019-04-07] MEDS ORDERED: PIPERACILLIN/TAZOBACTAM 3.375 GM VIAL IVPB ONE ×3 (01:54→17:22)
[2019-04-07] MEDS: POTASSIUM CHLORIDE 10 MEQ in DEXTROSE 5%-1/3 NS - 500 ML IVPB SCH ×2 (02:08→06:34)
[2019-04-07] MEDS: PIPERACILLIN/TAZOB 3.375 GM 3.375 GM in DEXTROSE 5%-WATER - 50 ML IVPB SCH ×3 (02:09→17:33)
[2019-04-07] MEDS ORDERED: PT OWN MED DRAWER 7, Y5N ONE ×4 (02:18→21:11)
[2019-04-07] MEDS: OXcarbazepine 300 MG TABLET (UD) PO SCH ×3 (06:31→22:34)
[2019-04-07] MEDS: CARBIDOPA/LEVODOPA 25/250 TABLET (FP) GT SCH ×3 (06:31→22:34)
[2019-04-07] MEDS: METOCLOPRAMIDE HCL INJECTION 10 MG/2 ML VIAL IVPUSH SCH ×3 (06:33→22:34)
[2019-04-07 08:31] LABS: BASO % 0.5 % (0-2.0); EOS % 2.3 % (0-4.5); HEMATOCRIT 27.1 % (32.4-45.2); HEMOGLOBIN 9.1 GM/dL (10.7-15.3); MCH 30.5 pg (25.7-33.7); MCHC 33.7 g/dl (32.0-36.0); MEAN CELL VOLUME 90.3 fl (80-96); MEAN PLT VOLUME 10.5 fl (7.5-11.1); MONO % 5.4 % (3.8-10.2); NEUT % 65.8 % (42.8-82.8); PLATELET COUNT 138 K/MM3 (134-434); RDW 16.3 % (11.6-15.6)
[2019-04-07 09:07] LABS: PHOSPHOROUS 2.5 mg/dL (2.5-4.9)
[2019-04-07 09:36] LABS: BILIRUBIN,TOTAL 0.7 mg/dL (0.2-1); CALCIUM 8.9 mg/dL (8.5-10.1); CREATININE 0.7 mg/dL (0.55-1.3); POTASSIUM 3.7 mmol/L (3.5-5.1); TOT PROT 6.1 g/dl (6.4-8.2)
--- NOTE | 2019-04-07 10:33 | PN ---
Progress Note, Physician History of Present Illness: mentally still not at base line spiked fever - Current Medication List Current Medications: Active Medications Acetaminophen (Tylenol Oral Solution -) 650 mg GT Q6H PRN PRN Reason: FEVER Last Admin: 04/05/19 18:01 Dose: 650 mg Ascorbic Acid (Vitamin C -) 500 mg GT DAILY [facility] Last Admin: 04/06/19 11:06 Dose: 500 mg Atorvastatin Calcium (Lipitor -) 40 mg GT HS [facility] Last Admin: 04/06/19 23:07 Dose: 40 mg Carbidopa/Levodopa (Sinemet 25/250 -) 1 each GT TID [facility] Last Admin: 04/07/19 06:31 Dose: 1 each Collagenase (Santyl -) 1 applic TP DAILY [facility]; Protocol Last Admin: 04/06/19 10:42 Dose: 1 applic Folic Acid (Folic Acid -) 1 mg GT DAILY [facility] Last Admin: 04/06/19 11:05 Dose: 1 mg Piperacillin Sod/Tazobactam (Sod 3.375 gm/ Dextrose) 50 mls @ 100 mls/hr IVPB Q8H-IV [facility]; Protocol Last Admin: 04/07/19 02:09 Dose: 100 mls/hr Potassium Chloride 10 meq/ (Dextrose/Sodium Chloride) 505 mls @ 100 mls/hr IVPB [facility] Last Admin: 04/07/19 06:34 Dose: 100 mls/hr Lacosamide (Vimpat Liquid -) 200 mg GT BID [facility] Last Admin: 04/06/19 23:08 Dose: 200 mg Levetiracetam (Keppra Oral Solution -) 500 mg PO BID [facility] Last Admin: 04/06/19 23:08 Dose: 500 mg Magnesium Oxide (Mag-Ox -) 400 mg GT BID [facility] Last Admin: 04/06/19 23:07 Dose: 400 mg Metoclopramide HCl (Reglan Injection -) 10 mg IVPUSH TID [facility] Last Admin: 04/07/19 06:33 Dose: 10 mg Midodrine (Proamatine -) 5 mg GT TID-MID [facility] Last Admin: 04/06/19 18:06 Dose: 5 mg Mirtazapine (Remeron -) 7.5 mg GT HS [facility] Last Admin: 04/06/19 23:06 Dose: 7.5 mg Multi-Ingredient Ointment (Zinc Oxide) 1 applic TP BID [facility] Last Admin: 04/06/19 23:08 Dose: 1 applic Oxcarbazepine (Trileptal -) 300 mg PO TID [facility] Last Admin: 04/07/19 06:31 Dose: 300 mg Pantoprazole Sodium (Protonix Packets For Oral Suspension -) 40 mg PEG BID [facility] Last Admin: 04/06/19 23:07 Dose: 40 mg - Objective Vital Signs: Vital Signs Temperature 98.9 F 04/07/19 09:15 Pulse Rate 80 04/07/19 09:15 Respiratory Rate 18 04/07/19 09:15 Blood Pressure 100/61 04/07/19 09:15 O2 Sat by Pulse Oximetry (%) 100 04/06/19 21:00 Constitutional: Yes: No Distress, Calm Cardiovascular: Yes: S1, S2 Respiratory: Yes: Regular Gastrointestinal: Yes: Normal Bowel Sounds, Soft, Other (peg) Extremities: Yes: WNL Neurological: Yes: Other Psychiatric: Yes: Other Labs: CBC, BMP 04/07/19 07:15 04/07/19 07:15 INR, PTT INR 1.11 (0.83-1.09) H 04/06/19 04:48 Assessment/Plan this patient with multiple medical problems coming wiht fever and resp distress with ct scan showing a new infiltrate and leukocytosis currently patient looks better sacral decubitus ulcer foul smelling decubitus ulcer fever resp distress leukocytosis plan continue abx hydration nephro close watch nutrition wound care
[2019-04-07] MEDS: MAGNESIUM OXIDE 400 MG TABLET (FP) GT SCH ×2 (10:54→22:35)
[2019-04-07] MEDS: PANTOPRAZOLE SOD 40 MG SUSPENSION PACKET PEG SCH ×2 (10:55→22:35)
[2019-04-07] MEDS: ASCORBIC ACID 500 MG TABLET (FP) GT SCH (10:55)
[2019-04-07] MEDS: FOLIC ACID 1 MG TABLET (FP) GT SCH (10:55)
[2019-04-07] MEDS: MIDODRINE HCL 5 MG TABLET GT SCH ×3 (10:55→17:33)
[2019-04-07] MEDS: Lacosamide 50 MG/5 ML ORAL SOLUTION UNIT CUPS GT SCH ×2 (10:56→22:37)
[2019-04-07] MEDS: levETIRAcetam 500 MG/5 ML ORAL SOLUTION (UNIT-DOSE CUPS) PO SCH ×2 (10:56→22:37)
[2019-04-07] MEDS: ZINC OXIDE 20% TOPICAL OINTMENT 30 GM TUBE TP SCH ×2 (10:57→22:38)
[2019-04-07] MEDS: COLLAGENASE CLOSTRIDIUM HIST. 30 GRAMS TUBE TP SCH (10:57)
--- NOTE | 2019-04-07 11:25 | PN ---
Progress Note (short form) - Note Progress Note: RENAL Pt is awake and alert speaks but not always coherent appears comfortable Last Vital Signs Temp Pulse Resp BP Pulse Ox 98.9 F 80 18 100/61 100 04/07/19 09:15 04/07/19 09:15 04/07/19 09:15 04/07/19 09:15 04/06/19 21:00 lungs clear anteriorly cvs s1`s2 rr abd soft, has a peg ext trace edema neuro awake, confused, some tremors noted CBC, BMP 04/07/19 07:15 04/07/19 07:15 Current Medications Generic Name Dose Route Start Last Admin Trade Name Freq PRN Reason Stop Dose Admin Acetaminophen 650 mg 04/03/19 23:53 04/05/19 18:01 Tylenol Oral Solution - GT 650 mg Q6H PRN Administration FEVER Ascorbic Acid 500 mg 04/04/19 10:00 04/07/19 10:55 Vitamin C - GT 500 mg DAILY CLEMENTE Administration Atorvastatin Calcium 40 mg 04/03/19 22:00 04/06/19 23:07 Lipitor - GT 40 mg HS CLEMENTE Administration Carbidopa/Levodopa 1 each 04/03/19 22:45 04/07/19 06:31 Sinemet 25/250 - GT 1 each TID CLEMENTE Administration Collagenase 1 applic 04/04/19 11:00 04/07/19 10:57 Santyl - TP 1 applic DAILY CLEMENTE Administration Protocol Folic Acid 1 mg 04/04/19 10:00 04/07/19 10:55 Folic Acid - GT 1 mg DAILY CLEMENTE Administration Piperacillin Sod/Tazobactam 50 mls @ 100 mls/hr 04/04/19 18:00 04/07/19 10:55 Sod 3.375 gm/ Dextrose IVPB 100 mls/hr Q8H-IV CLEMENTE Administration Protocol Potassium Chloride 10 meq/ 505 mls @ 100 mls/hr 04/07/19 03:40 04/07/19 06:34 Dextrose/Sodium Chloride IVPB 100 mls/hr ASDIR CLEMENTE Administration Lacosamide 200 mg 04/03/19 22:45 04/07/19 10:56 Vimpat Liquid - GT 200 mg BID CLEMENTE Administration Levetiracetam 500 mg 04/03/19 22:45 04/07/19 10:56 Keppra Oral Solution - PO 500 mg BID CLEMENTE Administration Magnesium Oxide 400 mg 04/04/19 10:00 04/07/19 10:54 Mag-Ox - GT 400 mg BID CLEMENTE Administration Metoclopramide HCl 10 mg 04/06/19 21:15 04/07/19 06:33 Reglan Injection - IVPUSH 10 mg TID CLEMENTE Administration Midodrine 5 mg 04/04/19 10:00 04/07/19 10:55 Proamatine - GT 5 mg TID-MID CLEMENTE Administration Mirtazapine 7.5 mg 04/04/19 22:00 04/06/19 23:06 Remeron - GT 7.5 mg HS CLEMENTE Administration Multi-Ingredient Ointment 1 applic 04/04/19 11:00 04/07/19 10:57 Zinc Oxide TP 1 applic BID CLEMENTE Administration Oxcarbazepine 300 mg 04/04/19 06:00 04/07/19 06:31 Trileptal - PO 300 mg TID CLEMENTE Administration Pantoprazole Sodium 40 mg 04/06/19 22:00 04/07/19 10:55 Protonix Packets For Oral Suspension - PEG 40 mg BID CLEMENTE Administration 68 year old woman with history of respiratory failure, stroke, CAD s/p STEMI, hypertension, hyperlipidemia, seizure disorder, MDD who presented with fever and respiratory distress and found to have serum na of 162 and Cr of 1.5. Baseline Cr 0.4-0.8. 1. Acute Kidney injury in setting of suspected sepsis 2. Hypernatremia improving- trileptal is actually associated with hyponatremia 3. Lactic acidosis 4. Suspected Sepsis 5. Sacral wound would continue fluids would reduce and stop metoclopramide which can exacerbate seizures renal function has improved with fluids so no further recommendations MV
--- NOTE | 2019-04-07 12:32 | PN ---
Progress Note (short form) - Note Progress Note: awake Vital Signs - 24 hr 04/06/19 04/06/19 04/06/19 19:40 21:00 22:00 Temperature 98.2 F 98.3 F Pulse Rate 116 H 79 Respiratory 24 H 24 H 18 Rate Blood Pressure 121/49 L 101/60 O2 Sat by Pulse 100 Oximetry (%) 04/07/19 04/07/19 04/07/19 01:50 05:00 09:15 Temperature 98.1 F 99.6 F 98.9 F Pulse Rate 80 76 80 Respiratory 22 H 22 H 18 Rate Blood Pressure 103/53 L 110/66 100/61 O2 Sat by Pulse Oximetry (%) 04/07/19 04/07/19 04/07/19 10:00 13:45 17:35 Temperature 98.2 F 100.6 F H Pulse Rate 81 Respiratory 18 Rate Blood Pressure 102/61 O2 Sat by Pulse 100 Oximetry (%) 04/07/19 18:00 Temperature 100.6 F H Pulse Rate 90 Respiratory 18 Rate Blood Pressure 114/62 O2 Sat by Pulse Oximetry (%) Current Medications Generic Name Dose Route Start Last Admin Trade Name Freq PRN Reason Stop Dose Admin Acetaminophen 650 mg 04/03/19 23:53 04/07/19 17:42 Tylenol Oral Solution - GT 650 mg Q6H PRN Administration FEVER Ascorbic Acid 500 mg 04/04/19 10:00 04/07/19 10:55 Vitamin C - GT 500 mg DAILY CLEMENTE Administration Atorvastatin Calcium 40 mg 04/03/19 22:00 04/06/19 23:07 Lipitor - GT 40 mg HS CLEMENTE Administration Carbidopa/Levodopa 1 each 04/03/19 22:45 04/07/19 15:11 Sinemet 25/250 - GT 1 each TID CLEMENTE Administration Collagenase 1 applic 04/04/19 11:00 04/07/19 10:57 Santyl - TP 1 applic DAILY CLEMENTE Administration Protocol Folic Acid 1 mg 04/04/19 10:00 04/07/19 10:55 Folic Acid - GT 1 mg DAILY CLEMENTE Administration Piperacillin Sod/Tazobactam 50 mls @ 100 mls/hr 04/04/19 18:00 04/07/19 17:33 Sod 3.375 gm/ Dextrose IVPB 100 mls/hr Q8H-IV CLEMENTE Administration Protocol Potassium Chloride 10 meq/ 505 mls @ 100 mls/hr 04/07/19 03:40 04/07/19 06:34 Dextrose/Sodium Chloride IVPB 100 mls/hr ASDIR CLEMENTE Administration Lacosamide 200 mg 04/03/19 22:45 04/07/19 10:56 Vimpat Liquid - GT 200 mg BID CLEMENTE Administration Levetiracetam 500 mg 04/03/19 22:45 04/07/19 10:56 Keppra Oral Solution - PO 500 mg BID CLEMENTE Administration Magnesium Oxide 400 mg 04/04/19 10:00 04/07/19 10:54 Mag-Ox - GT 400 mg BID CLEMENTE Administration Metoclopramide HCl 10 mg 04/06/19 21:15 04/07/19 15:10 Reglan Injection - IVPUSH 10 mg TID CLEMENTE Administration Midodrine 5 mg 04/04/19 10:00 04/07/19 17:33 Proamatine - GT 5 mg TID-MID CLEMENTE Administration Mirtazapine 7.5 mg 04/04/19 22:00 04/06/19 23:06 Remeron - GT 7.5 mg HS CLEMENTE Administration Multi-Ingredient Ointment 1 applic 04/04/19 11:00 04/07/19 10:57 Zinc Oxide TP 1 applic BID CLEMENTE Administration Oxcarbazepine 300 mg 04/04/19 06:00 04/07/19 15:11 Trileptal - PO 300 mg TID CLEMENTE Administration Pantoprazole Sodium 40 mg 04/06/19 22:00 04/07/19 10:55 Protonix Packets For Oral Suspension - PEG 40 mg BID CLEMENTE Administration Laboratory Results - last 24 hr 04/07/19 04/07/19 04/07/19 07:15 07:15 07:50 WBC 10.0 RBC 3.00 L Hgb 9.1 L Hct 27.1 L MCV 90.3 MCH 30.5 MCHC 33.7 RDW 16.3 H Plt Count 138 MPV 10.5 Absolute Neuts (auto) 6.6 Neutrophils % 65.8 Lymphocytes % 26.0 D Monocytes % 5.4 Eosinophils % 2.3 D Basophils % 0.5 Nucleated RBC % 0 Retic Count 0.59 Sodium 153 H Potassium 3.7 Chloride 120 H Carbon Dioxide 24 Anion Gap 9 BUN 10.0 Creatinine 0.7 Est GFR (CKD-EPI)AfAm 104.64 Est GFR (CKD-EPI)NonAf 90.29 Random Glucose 82 Calcium 8.9 Phosphorus 2.5 Magnesium 2.0 Iron 50 TIBC 127 L Iron Saturation 39 Unsaturated IBC 77 L Ferritin 463.4 H Total Bilirubin 0.7 AST 24 ALT 10 L Alkaline Phosphatase 133 H Total Protein 6.1 L Albumin 2.0 L S1 S2 RRR Lungs decreased Abd- soft, NT GT+ no distress edema+decreased Microbiology 04/03/19 15:30 Blood - Peripheral Venous Blood Culture - Preliminary Staphylococcus Coagulase Neg 04/03/19 14:50 Blood - Peripheral Venous Blood Culture - Preliminary NO GROWTH OBTAINED AFTER 24 HOURS, INCUBATION TO CONTINUE FOR 4 DAYS. 04/03/19 14:33 Urine - Urine - Catheterized Urine Culture - Final NO GROWTH OBTAINED A/P Sepsis pneumonia? Failure to thrive Hypernatremia Dehydration -->iv fluids--- sodium improving -->iv antibiotics ---> ID follow up -->renal eval noted Problem List - Problems (1) NICOLÁS (acute kidney injury) Code(s): N17.9 - ACUTE KIDNEY FAILURE, UNSPECIFIED (2) Hypernatremia Code(s): E87.0 - HYPEROSMOLALITY AND HYPERNATREMIA (3) Pneumonia Code(s): J18.9 - PNEUMONIA, UNSPECIFIED ORGANISM Qualifiers: Pneumonia type: due to unspecified organism Laterality: left Lung location: lower lobe of lung Qualified Code(s): J18.1 - Lobar pneumonia, unspecified organism (4) Sepsis Code(s): A41.9 - SEPSIS, UNSPECIFIED ORGANISM Qualifiers: Sepsis type: sepsis due to unspecified organism Sepsis acute organ dysfunction status: with acute organ dysfunction Severe sepsis acute organ dysfunction type: acute renal failure Acute renal failure type: unspecified Severe sepsis shock status: without septic shock Qualified Code(s): A41.9 - Sepsis, unspecified organism; R65.20 - Severe sepsis without septic shock; N17.9 - Acute kidney failure, unspecified (5) Functional quadriplegia Code(s): R53.2 - FUNCTIONAL QUADRIPLEGIA (6) HLD (hyperlipidemia) Code(s): E78.5 - HYPERLIPIDEMIA, UNSPECIFIED (7) HTN (hypertension) Code(s): I10 - ESSENTIAL (PRIMARY) HYPERTENSION
--- NOTE | 2019-04-07 17:21 | PN.GI ---
GI Progress Note Subjective: GI NOte ( covering the [facility] GI service). No further hematemesis. No melena. Hb stable - Objective Vital Signs: Vital Signs Temperature 98.2 F 04/07/19 13:45 Pulse Rate 81 04/07/19 13:45 Respiratory Rate 18 04/07/19 13:45 Blood Pressure 102/61 04/07/19 13:45 O2 Sat by Pulse Oximetry (%) 100 04/07/19 10:00 Laboratory Tests 04/06/19 04/07/19 16:30 07:15 Hgb 8.8 L 9.1 L Constitutional: Calm ...Auscultate: Yes: Hypoactive Bowel Sounds ...Palpate: Yes: Soft, Other (nontender) Labs: CBC, BMP 04/07/19 07:15 04/07/19 07:15 INR, PTT INR 1.11 (0.83-1.09) H 04/06/19 04:48 Assessment/Plan Assessment: - No signs of an active bleed. Suspect stagnant small bowel contents Plan: -- PPI empirically -- Serial CBCs -- Reglan -- [place] of feedings -- Iron studies pending -- The patient is not a candidate for elective endoscopies at this time Problem List - Problems (1) GI bleed Code(s): K92.2 - GASTROINTESTINAL HEMORRHAGE, UNSPECIFIED Qualifiers: GI bleed type/associated pathology: gastrointestinal hemorrhage with hematemesis Qualified Code(s): K92.0 - Hematemesis (2) NICOLÁS (acute kidney injury) Code(s): N17.9 - ACUTE KIDNEY FAILURE, UNSPECIFIED (3) Hypernatremia Code(s): E87.0 - HYPEROSMOLALITY AND HYPERNATREMIA (4) Anemia Code(s): D64.9 - ANEMIA, UNSPECIFIED Qualifiers: Anemia type: unspecified type Qualified Code(s): D64.9 - Anemia, unspecified (5) CVA (cerebral vascular accident) Code(s): I63.9 - CEREBRAL INFARCTION, UNSPECIFIED Qualifiers: CVA mechanism: unspecified Qualified Code(s): I63.9 - Cerebral infarction, unspecified (6) Chronic respiratory failure Code(s): J96.10 - CHRONIC RESPIRATORY FAILURE, UNSP W HYPOXIA OR HYPERCAPNIA (7) MODS (multiple organ dysfunction syndrome) Code(s): ZTC1521 - (8) STEMI (ST elevation myocardial infarction) Code(s): I21.3 - ST ELEVATION (STEMI) MYOCARDIAL INFARCTION OF UNSP SITE Qualifiers: Involved coronary artery: LAD coronary artery Qualified Code(s): I21.02 - ST elevation (STEMI) myocardial infarction involving left anterior descending coronary artery (9) Seizures Code(s): R56.9 - UNSPECIFIED CONVULSIONS
[2019-04-07] MEDS: ACETAMINOPHEN 650 MG/20.3 ML ORAL SOLUTION (CUPS) GT PRN (17:42)
[2019-04-07] MEDS ORDERED: VANCOMYCIN HCL 1,250 MG in DEXTROSE 5%-WATER - 250 ML IVPB ONE (19:30)
[2019-04-07] MEDS: MIRTAZAPINE 15 MG TABLET (FP) GT SCH (22:35)
[2019-04-07] MEDS: ATORVASTATIN CA 40 MG TABLET (FP) GT SCH (22:35)
[2019-04-08] MEDS ORDERED: PIPERACILLIN/TAZOBACTAM 3.375 GM VIAL IVPB ONE ×3 (01:58→17:25)
[2019-04-08] MEDS ORDERED: DEXTROSE 5%-WATER - 50 ML IVPB ONE ×3 (01:58→17:25)
[2019-04-08] MEDS: PIPERACILLIN/TAZOB 3.375 GM 3.375 GM in DEXTROSE 5%-WATER - 50 ML IVPB SCH ×3 (02:08→17:53)
[2019-04-08] MEDS: METOCLOPRAMIDE HCL INJECTION 10 MG/2 ML VIAL IVPUSH SCH ×3 (06:48→22:42)
[2019-04-08] MEDS: CARBIDOPA/LEVODOPA 25/250 TABLET (FP) GT SCH ×3 (06:48→22:42)
[2019-04-08] MEDS: OXcarbazepine 300 MG TABLET (UD) PO SCH ×3 (06:48→22:42)
[2019-04-08] MEDS: POTASSIUM CHLORIDE 10 MEQ in DEXTROSE 5%-1/3 NS - 500 ML IVPB SCH ×4 (06:49→22:47)
[2019-04-08 08:11] LABS: BASO % 0.6 % (0-2.0); EOS % 2.5 % (0-4.5); HEMATOCRIT 27.2 % (32.4-45.2); HEMOGLOBIN 9.1 GM/dL (10.7-15.3); LYMPH % 21.7 % (8-40); MCH 30.5 pg (25.7-33.7); MCHC 33.3 g/dl (32.0-36.0); MEAN CELL VOLUME 91.5 fl (80-96); MEAN PLT VOLUME 10.5 fl (7.5-11.1); MONO % 7.2 % (3.8-10.2); PLATELET COUNT 152 K/MM3 (134-434); RBC 2.98 M/mm3 (3.60-5.2); RDW 16.6 % (11.6-15.6)
[2019-04-08 08:40] LABS: BILIRUBIN,TOTAL 0.4 mg/dL (0.2-1); BLOOD UREA NITROGEN 8.9 mg/dL (7-18); CALCIUM 8.6 mg/dL (8.5-10.1); CREATININE 0.7 mg/dL (0.55-1.3); POTASSIUM 4.1 mmol/L (3.5-5.1)
--- NOTE | 2019-04-08 09:57 | PN ---
Progress Note (short form) - Note Progress Note: awake, anxious mumbling Vital Signs - 24 hr 04/07/19 04/07/19 04/08/19 21:00 22:00 02:00 Temperature 98.2 F 97.7 F Pulse Rate 85 83 Respiratory 18 18 18 Rate Blood Pressure 106/62 129/74 O2 Sat by Pulse 98 Oximetry (%) 04/08/19 04/08/19 04/08/19 06:00 08:54 14:15 Temperature 98.1 F 97.8 F 99.2 F Pulse Rate 85 77 83 Respiratory 18 18 18 Rate Blood Pressure 111/52 L 106/62 124/79 O2 Sat by Pulse Oximetry (%) Current Medications Generic Name Dose Route Start Last Admin Trade Name Freq PRN Reason Stop Dose Admin Acetaminophen 650 mg 04/03/19 23:53 04/07/19 17:42 Tylenol Oral Solution - GT 650 mg Q6H PRN Administration FEVER Ascorbic Acid 500 mg 04/04/19 10:00 04/08/19 11:07 Vitamin C - GT 500 mg DAILY CLEMENTE Administration Atorvastatin Calcium 40 mg 04/03/19 22:00 04/07/19 22:35 Lipitor - GT 40 mg HS CLEMENTE Administration Carbidopa/Levodopa 1 each 04/03/19 22:45 04/08/19 14:22 Sinemet 25/250 - GT 1 each TID CLEMENTE Administration Collagenase 1 applic 04/04/19 11:00 04/08/19 10:00 Santyl - TP 1 applic DAILY CLEMENTE Administration Protocol Folic Acid 1 mg 04/04/19 10:00 04/08/19 11:07 Folic Acid - GT 1 mg DAILY CLEMENTE Administration Piperacillin Sod/Tazobactam 50 mls @ 100 mls/hr 04/04/19 18:00 04/08/19 11:08 Sod 3.375 gm/ Dextrose IVPB 100 mls/hr Q8H-IV CLEMENTE Administration Protocol Potassium Chloride 10 meq/ 505 mls @ 80 mls/hr 04/08/19 10:28 04/08/19 10:23 Dextrose/Sodium Chloride IVPB 80 mls/hr Q6H CLEMENTE Administration Lacosamide 200 mg 04/03/19 22:45 04/08/19 11:09 Vimpat Liquid - GT 200 mg BID CLEMENTE Administration Levetiracetam 500 mg 04/03/19 22:45 04/08/19 11:10 Keppra Oral Solution - PO 500 mg BID CLEMENTE Administration Lorazepam 1 mg 04/08/19 10:32 04/08/19 11:07 Ativan Injection - IVPUSH 1 mg Q8H PRN Administration ANXIETY Magnesium Oxide 400 mg 04/04/19 10:00 04/08/19 11:08 Mag-Ox - GT 400 mg BID CLEMENTE Administration Metoclopramide HCl 10 mg 04/06/19 21:15 04/08/19 14:22 Reglan Injection - IVPUSH 10 mg TID CLEMENTE Administration Midodrine 5 mg 04/04/19 10:00 04/08/19 14:23 Proamatine - GT 5 mg TID-MID CLEMENTE Administration Mirtazapine 7.5 mg 04/04/19 22:00 04/07/19 22:35 Remeron - GT 7.5 mg HS CLEMENTE Administration Multi-Ingredient Ointment 1 applic 04/04/19 11:00 04/08/19 10:00 Zinc Oxide TP 1 applic BID CLEMENTE Administration Oxcarbazepine 300 mg 04/04/19 06:00 04/08/19 14:23 Trileptal - PO 300 mg TID CLEMENTE Administration Pantoprazole Sodium 40 mg 04/06/19 22:00 04/08/19 11:08 Protonix Packets For Oral Suspension - PEG 40 mg BID CLEMENTE Administration Laboratory Results - last 24 hr 04/08/19 04/08/19 06:40 06:40 WBC 10.0 RBC 2.98 L Hgb 9.1 L Hct 27.2 L MCV 91.5 MCH 30.5 MCHC 33.3 RDW 16.6 H Plt Count 152 MPV 10.5 Absolute Neuts (auto) 6.8 Neutrophils % 68.0 Lymphocytes % 21.7 Monocytes % 7.2 Eosinophils % 2.5 Basophils % 0.6 Nucleated RBC % 0 Sodium 149 H Potassium 4.1 Chloride 114 H Carbon Dioxide 25 Anion Gap 10 BUN 8.9 Creatinine 0.7 Est GFR (CKD-EPI)AfAm 104.64 Est GFR (CKD-EPI)NonAf 90.29 Random Glucose 112 H Calcium 8.6 Total Bilirubin 0.4 AST 19 ALT 21 Alkaline Phosphatase 131 H Total Protein 6.0 L Albumin 2.0 L S1 S2 RRR Lungs decreased, crackles heard+ Abd- soft, NT GT+ no distress edema+decreased Microbiology 04/03/19 15:30 Blood - Peripheral Venous Blood Culture - Preliminary Staphylococcus Coagulase Neg 04/03/19 14:50 Blood - Peripheral Venous Blood Culture - Preliminary NO GROWTH OBTAINED AFTER 24 HOURS, INCUBATION TO CONTINUE FOR 4 DAYS. 04/03/19 14:33 Urine - Urine - Catheterized Urine Culture - Final NO GROWTH OBTAINED A/P Sepsis pneumonia? Failure to thrive Hypernatremia Dehydration -->iv fluids--- sodium improving, decrease rate of fluids -->iv antibiotics ---> ID follow up -->renal eval noted -->ativan as needed Problem List - Problems (1) NICOLÁS (acute kidney injury) Code(s): N17.9 - ACUTE KIDNEY FAILURE, UNSPECIFIED (2) Hypernatremia Code(s): E87.0 - HYPEROSMOLALITY AND HYPERNATREMIA (3) Pneumonia Code(s): J18.9 - PNEUMONIA, UNSPECIFIED ORGANISM Qualifiers: Pneumonia type: due to unspecified organism Laterality: left Lung location: lower lobe of lung Qualified Code(s): J18.1 - Lobar pneumonia, unspecified organism (4) Sepsis Code(s): A41.9 - SEPSIS, UNSPECIFIED ORGANISM Qualifiers: Sepsis type: sepsis due to unspecified organism Sepsis acute organ dysfunction status: with acute organ dysfunction Severe sepsis acute organ dysfunction type: acute renal failure Acute renal failure type: unspecified Severe sepsis shock status: without septic shock Qualified Code(s): A41.9 - Sepsis, unspecified organism; R65.20 - Severe sepsis without septic shock; N17.9 - Acute kidney failure, unspecified (5) Functional quadriplegia Code(s): R53.2 - FUNCTIONAL QUADRIPLEGIA (6) HLD (hyperlipidemia) Code(s): E78.5 - HYPERLIPIDEMIA, UNSPECIFIED (7) HTN (hypertension) Code(s): I10 - ESSENTIAL (PRIMARY) HYPERTENSION
[2019-04-08] MEDS: ZINC OXIDE 20% TOPICAL OINTMENT 30 GM TUBE TP SCH ×2 (10:00→22:46)
[2019-04-08] MEDS: COLLAGENASE CLOSTRIDIUM HIST. 30 GRAMS TUBE TP SCH (10:00)
[2019-04-08] MEDS ORDERED: LORazepam 2 MG/ML SDV VIAL IVPUSH PRN (10:32)
[2019-04-08] MEDS ORDERED: PT OWN MED DRAWER 7, Y5N ONE ×3 (11:00→22:36)
[2019-04-08] MEDS: FOLIC ACID 1 MG TABLET (FP) GT SCH (11:07)
[2019-04-08] MEDS: ASCORBIC ACID 500 MG TABLET (FP) GT SCH (11:07)
[2019-04-08] MEDS: MIDODRINE HCL 5 MG TABLET GT SCH ×3 (11:07→17:53)
[2019-04-08] MEDS: PANTOPRAZOLE SOD 40 MG SUSPENSION PACKET PEG SCH ×2 (11:08→22:44)
[2019-04-08] MEDS: MAGNESIUM OXIDE 400 MG TABLET (FP) GT SCH ×2 (11:08→22:44)
[2019-04-08] MEDS: Lacosamide 50 MG/5 ML ORAL SOLUTION UNIT CUPS GT SCH ×2 (11:09→23:15)
[2019-04-08] MEDS: levETIRAcetam 500 MG/5 ML ORAL SOLUTION (UNIT-DOSE CUPS) PO SCH ×2 (11:10→22:45)
--- NOTE | 2019-04-08 12:56 | PN ---
Progress Note (short form) - Note Progress Note: RENAL Pt is awake and alert appears comfortable Last Vital Signs Temp Pulse Resp BP Pulse Ox 97.8 F 77 18 106/62 98 04/08/19 08:54 04/08/19 08:54 04/08/19 08:54 04/08/19 08:54 04/07/19 21:00 lungs clear anteriorly cvs s1`s2 rr abd soft, has a peg ext trace edema neuro awake, not speaking, some tremors noted CBC, BMP 04/08/19 06:40 04/08/19 06:40 Current Medications Generic Name Dose Route Start Last Admin Trade Name Freq PRN Reason Stop Dose Admin Acetaminophen 650 mg 04/03/19 23:53 04/07/19 17:42 Tylenol Oral Solution - GT 650 mg Q6H PRN Administration FEVER Ascorbic Acid 500 mg 04/04/19 10:00 04/08/19 11:07 Vitamin C - GT 500 mg DAILY CLEMENTE Administration Atorvastatin Calcium 40 mg 04/03/19 22:00 04/07/19 22:35 Lipitor - GT 40 mg HS CLEMENTE Administration Carbidopa/Levodopa 1 each 04/03/19 22:45 04/08/19 06:48 Sinemet 25/250 - GT 1 each TID CLEMENTE Administration Collagenase 1 applic 04/04/19 11:00 04/07/19 10:57 Santyl - TP 1 applic DAILY CLEMENTE Administration Protocol Folic Acid 1 mg 04/04/19 10:00 04/08/19 11:07 Folic Acid - GT 1 mg DAILY CLEMENTE Administration Piperacillin Sod/Tazobactam 50 mls @ 100 mls/hr 04/04/19 18:00 04/08/19 11:08 Sod 3.375 gm/ Dextrose IVPB 100 mls/hr Q8H-IV CLEMENTE Administration Protocol Potassium Chloride 10 meq/ 505 mls @ 80 mls/hr 04/08/19 10:28 Dextrose/Sodium Chloride IVPB Q6H CLEMENTE Lacosamide 200 mg 04/03/19 22:45 04/08/19 11:09 Vimpat Liquid - GT 200 mg BID CLEMENTE Administration Levetiracetam 500 mg 04/03/19 22:45 04/08/19 11:10 Keppra Oral Solution - PO 500 mg BID CLEMENTE Administration Lorazepam 1 mg 04/08/19 10:32 04/08/19 11:07 Ativan Injection - IVPUSH 1 mg Q8H PRN Administration ANXIETY Magnesium Oxide 400 mg 04/04/19 10:00 04/08/19 11:08 Mag-Ox - GT 400 mg BID CLEMENTE Administration Metoclopramide HCl 10 mg 04/06/19 21:15 04/08/19 06:48 Reglan Injection - IVPUSH 10 mg TID CLEMENTE Administration Midodrine 5 mg 04/04/19 10:00 04/08/19 11:07 Proamatine - GT 5 mg TID-MID CLEMENTE Administration Mirtazapine 7.5 mg 04/04/19 22:00 04/07/19 22:35 Remeron - GT 7.5 mg HS CLEMENTE Administration Multi-Ingredient Ointment 1 applic 04/04/19 11:00 04/07/19 22:38 Zinc Oxide TP 1 applic BID CLEMENTE Administration Oxcarbazepine 300 mg 04/04/19 06:00 04/08/19 06:48 Trileptal - PO 300 mg TID CLEMENTE Administration Pantoprazole Sodium 40 mg 04/06/19 22:00 04/08/19 11:08 Protonix Packets For Oral Suspension - PEG 40 mg BID CLEMENTE Administration 68 year old woman with history of respiratory failure, stroke, CAD s/p STEMI, hypertension, hyperlipidemia, seizure disorder, MDD who presented with fever and respiratory distress and found to have serum na of 162 and Cr of 1.5. Baseline Cr 0.4-0.8. 1. Acute Kidney injury in setting of suspected sepsis 2. Hypernatremia improving- trileptal is actually associated with hyponatremia 3. Lactic acidosis 4. Suspected Sepsis 5. Sacral wound would continue fluids would reduce and stop metoclopramide which can exacerbate seizures renal function has improved with fluids so no further recommendations for this MV
--- NOTE | 2019-04-08 15:09 | PN ---
Progress Note, Physician History of Present Illness: continues to spike fever mentally still not at base line - Current Medication List Current Medications: Active Medications Acetaminophen (Tylenol Oral Solution -) 650 mg GT Q6H PRN PRN Reason: FEVER Last Admin: 04/07/19 17:42 Dose: 650 mg Ascorbic Acid (Vitamin C -) 500 mg GT DAILY CLEMENTE Last Admin: 04/08/19 11:07 Dose: 500 mg Atorvastatin Calcium (Lipitor -) 40 mg GT HS CLEMENTE Last Admin: 04/07/19 22:35 Dose: 40 mg Carbidopa/Levodopa (Sinemet 25/250 -) 1 each GT TID CLEMENTE Last Admin: 04/08/19 14:22 Dose: 1 each Collagenase (Santyl -) 1 applic TP DAILY CLEMENTE; Protocol Last Admin: 04/08/19 10:00 Dose: 1 applic Folic Acid (Folic Acid -) 1 mg GT DAILY CLEMENTE Last Admin: 04/08/19 11:07 Dose: 1 mg Piperacillin Sod/Tazobactam (Sod 3.375 gm/ Dextrose) 50 mls @ 100 mls/hr IVPB Q8H-IV CLEMENTE; Protocol Last Admin: 04/08/19 11:08 Dose: 100 mls/hr Potassium Chloride 10 meq/ (Dextrose/Sodium Chloride) 505 mls @ 80 mls/hr IVPB Q6H CLEMENTE Last Admin: 04/08/19 10:23 Dose: 80 mls/hr Lacosamide (Vimpat Liquid -) 200 mg GT BID CLEMENTE Last Admin: 04/08/19 11:09 Dose: 200 mg Levetiracetam (Keppra Oral Solution -) 500 mg PO BID CLEMENTE Last Admin: 04/08/19 11:10 Dose: 500 mg Lorazepam (Ativan Injection -) 1 mg IVPUSH Q8H PRN PRN Reason: ANXIETY Last Admin: 04/08/19 11:07 Dose: 1 mg Magnesium Oxide (Mag-Ox -) 400 mg GT BID CLEMENTE Last Admin: 04/08/19 11:08 Dose: 400 mg Metoclopramide HCl (Reglan Injection -) 10 mg IVPUSH TID CLEMENTE Last Admin: 04/08/19 14:22 Dose: 10 mg Midodrine (Proamatine -) 5 mg GT TID-MID CLEMENTE Last Admin: 04/08/19 14:23 Dose: 5 mg Mirtazapine (Remeron -) 7.5 mg GT HS [facility] Last Admin: 04/07/19 22:35 Dose: 7.5 mg Multi-Ingredient Ointment (Zinc Oxide) 1 applic TP BID [facility] Last Admin: 04/08/19 10:00 Dose: 1 applic Oxcarbazepine (Trileptal -) 300 mg PO TID [facility] Last Admin: 04/08/19 14:23 Dose: 300 mg Pantoprazole Sodium (Protonix Packets For Oral Suspension -) 40 mg PEG BID [facility] Last Admin: 04/08/19 11:08 Dose: 40 mg - Objective Vital Signs: Vital Signs Temperature 97.8 F 04/08/19 08:54 Pulse Rate 77 04/08/19 08:54 Respiratory Rate 18 04/08/19 08:54 Blood Pressure 106/62 04/08/19 08:54 O2 Sat by Pulse Oximetry (%) 98 04/07/19 21:00 Constitutional: Yes: No Distress, Calm Cardiovascular: Yes: S1, S2 Respiratory: Yes: Regular, CTA Bilaterally Gastrointestinal: Yes: Normal Bowel Sounds, Soft, Other (peg in place) Musculoskeletal: Yes: WNL Extremities: Yes: Other Neurological: Yes: Other Labs: CBC, BMP 04/08/19 06:40 04/08/19 06:40 INR, PTT INR 1.11 (0.83-1.09) H 04/06/19 04:48 Assessment/Plan this patient with multiple medical problems coming wiht fever and resp distress with ct scan showing a new infiltrate and leukocytosis currently patient looks better sacral decubitus ulcer foul smelling decubitus ulcer fever resp distress leukocytosis plan continue abx hydration nephro close watch nutrition wound care
[2019-04-08] MEDS: MIRTAZAPINE 15 MG TABLET (FP) GT SCH (22:42)
[2019-04-08] MEDS: ATORVASTATIN CA 40 MG TABLET (FP) GT SCH (22:45)
[2019-04-09] MEDS ORDERED: DEXTROSE 5%-WATER - 50 ML IVPB ONE ×3 (01:10→17:40)
[2019-04-09] MEDS ORDERED: PIPERACILLIN/TAZOBACTAM 3.375 GM VIAL IVPB ONE ×3 (01:10→17:40)
[2019-04-09] MEDS: PIPERACILLIN/TAZOB 3.375 GM 3.375 GM in DEXTROSE 5%-WATER - 50 ML IVPB SCH ×3 (01:18→18:00)
[2019-04-09] MEDS: OXcarbazepine 300 MG TABLET (UD) PO SCH ×3 (06:54→22:09)
[2019-04-09] MEDS: CARBIDOPA/LEVODOPA 25/250 TABLET (FP) GT SCH ×3 (06:54→22:09)
[2019-04-09] MEDS: METOCLOPRAMIDE HCL INJECTION 10 MG/2 ML VIAL IVPUSH SCH ×3 (06:54→22:08)
[2019-04-09] MEDS: POTASSIUM CHLORIDE 10 MEQ in DEXTROSE 5%-1/3 NS - 500 ML IVPB SCH ×2 (06:55→09:35)
[2019-04-09 08:16] LABS: BASO % 0.4 % (0-2.0); EOS % 2.3 % (0-4.5); HEMATOCRIT 27.3 % (32.4-45.2); HEMOGLOBIN 9.2 GM/dL (10.7-15.3); LYMPH % 24.6 % (8-40); MCH 30.9 pg (25.7-33.7); MCHC 33.8 g/dl (32.0-36.0); MEAN CELL VOLUME 91.4 fl (80-96); MONO % 5.8 % (3.8-10.2); NEUT % 66.9 % (42.8-82.8); PLATELET COUNT 176 K/MM3 (134-434); RBC 2.98 M/mm3 (3.60-5.2); RDW 16.6 % (11.6-15.6); WHITE BLOOD COUNT 10.8 K/mm3 (4.0-10.0)
[2019-04-09 08:31] LABS: BLOOD UREA NITROGEN 7.8 mg/dL (7-18); CALCIUM 8.5 mg/dL (8.5-10.1); CREATININE 0.6 mg/dL (0.55-1.3); POTASSIUM 4.1 mmol/L (3.5-5.1)
[2019-04-09] MEDS ORDERED: PT OWN MED DRAWER 7, Y5N ONE ×2 (09:31→22:06)
--- NOTE | 2019-04-09 10:41 | PN ---
Progress Note, Physician History of Present Illness: low grade fever otherwise status quo - Current Medication List Current Medications: Active Medications Acetaminophen (Tylenol Oral Solution -) 650 mg GT Q6H PRN PRN Reason: FEVER Last Admin: 04/07/19 17:42 Dose: 650 mg Ascorbic Acid (Vitamin C -) 500 mg GT DAILY [facility] Last Admin: 04/08/19 11:07 Dose: 500 mg Atorvastatin Calcium (Lipitor -) 40 mg GT HS [facility] Last Admin: 04/08/19 22:45 Dose: 40 mg Carbidopa/Levodopa (Sinemet 25/250 -) 1 each GT TID [facility] Last Admin: 04/09/19 06:54 Dose: 1 each Collagenase (Santyl -) 1 applic TP DAILY [facility]; Protocol Last Admin: 04/08/19 10:00 Dose: 1 applic Folic Acid (Folic Acid -) 1 mg GT DAILY [facility] Last Admin: 04/08/19 11:07 Dose: 1 mg Piperacillin Sod/Tazobactam (Sod 3.375 gm/ Dextrose) 50 mls @ 100 mls/hr IVPB Q8H-IV [facility]; Protocol Last Admin: 04/09/19 01:18 Dose: 100 mls/hr Potassium Chloride 10 meq/ (Dextrose/Sodium Chloride) 505 mls @ 80 mls/hr IVPB Q6H [facility] Last Admin: 04/09/19 09:35 Dose: 80 mls/hr Lacosamide (Vimpat Liquid -) 200 mg GT BID [facility] Last Admin: 04/08/19 23:15 Dose: 200 mg Levetiracetam (Keppra Oral Solution -) 500 mg PO BID [facility] Last Admin: 04/08/19 22:45 Dose: 500 mg Lorazepam (Ativan Injection -) 1 mg IVPUSH Q8H PRN PRN Reason: ANXIETY Last Admin: 04/08/19 11:07 Dose: 1 mg Magnesium Oxide (Mag-Ox -) 400 mg GT BID [facility] Last Admin: 04/08/19 22:44 Dose: 400 mg Metoclopramide HCl (Reglan Injection -) 10 mg IVPUSH TID [facility] Last Admin: 04/09/19 06:54 Dose: 10 mg Midodrine (Proamatine -) 5 mg GT TID-MID [facility] Last Admin: 04/08/19 17:53 Dose: 5 mg Mirtazapine (Remeron -) 7.5 mg GT HS [facility] Last Admin: 04/08/19 22:42 Dose: 7.5 mg Multi-Ingredient Ointment (Zinc Oxide) 1 applic TP BID [facility] Last Admin: 04/08/19 22:46 Dose: 1 applic Oxcarbazepine (Trileptal -) 300 mg PO TID [facility] Last Admin: 04/09/19 06:54 Dose: 300 mg Pantoprazole Sodium (Protonix Packets For Oral Suspension -) 40 mg PEG BID [facility] Last Admin: 04/08/19 22:44 Dose: 40 mg - Objective Vital Signs: Vital Signs Temperature 98.8 F 04/09/19 08:10 Pulse Rate 81 04/09/19 08:10 Respiratory Rate 18 04/09/19 08:10 Blood Pressure 104/66 04/09/19 08:10 O2 Sat by Pulse Oximetry (%) 98 04/08/19 21:00 Constitutional: Yes: No Distress, Calm Cardiovascular: Yes: S1, S2 Respiratory: Yes: Regular, CTA Bilaterally Gastrointestinal: Yes: Normal Bowel Sounds, Soft, Other (peg) Musculoskeletal: Yes: WNL Extremities: Yes: WNL Neurological: Yes: Other Psychiatric: Yes: Other Labs: CBC, BMP 04/09/19 07:25 04/09/19 07:25 INR, PTT INR 1.11 (0.83-1.09) H 04/06/19 04:48 Assessment/Plan this patient with multiple medical problems coming wiht fever and resp distress with ct scan showing a new infiltrate and leukocytosis currently patient looks better sacral decubitus ulcer foul smelling decubitus ulcer fever resp distress leukocytosis plan conitnue abx nutrition monitor wbc will see how the fever pattern is
[2019-04-09] MEDS: FOLIC ACID 1 MG TABLET (FP) GT SCH (10:54)
[2019-04-09] MEDS: levETIRAcetam 500 MG/5 ML ORAL SOLUTION (UNIT-DOSE CUPS) PO SCH ×2 (10:55→22:07)
[2019-04-09] MEDS: MIDODRINE HCL 5 MG TABLET GT SCH ×3 (10:56→18:00)
[2019-04-09] MEDS: MAGNESIUM OXIDE 400 MG TABLET (FP) GT SCH ×2 (10:56→22:08)
[2019-04-09] MEDS: PANTOPRAZOLE SOD 40 MG SUSPENSION PACKET PEG SCH ×2 (10:57→22:08)
[2019-04-09] MEDS: ASCORBIC ACID 500 MG TABLET (FP) GT SCH (10:58)
[2019-04-09] MEDS: COLLAGENASE CLOSTRIDIUM HIST. 30 GRAMS TUBE TP SCH (10:59)
[2019-04-09] MEDS: ZINC OXIDE 20% TOPICAL OINTMENT 30 GM TUBE TP SCH ×2 (11:00→22:09)
--- NOTE | 2019-04-09 11:30 | PN ---
Progress Note, Physician History of Present Illness: PULMONARY AWAKE,NO RESP DISTRESS,-CONGESTION,+ TREMORS - Current Medication List Current Medications: Active Medications Acetaminophen (Tylenol Oral Solution -) 650 mg GT Q6H PRN PRN Reason: FEVER Last Admin: 04/07/19 17:42 Dose: 650 mg Ascorbic Acid (Vitamin C -) 500 mg GT DAILY [facility] Last Admin: 04/09/19 10:58 Dose: 500 mg Atorvastatin Calcium (Lipitor -) 40 mg GT HS [facility] Last Admin: 04/08/19 22:45 Dose: 40 mg Carbidopa/Levodopa (Sinemet 25/250 -) 1 each GT TID [facility] Last Admin: 04/09/19 06:54 Dose: 1 each Collagenase (Santyl -) 1 applic TP DAILY [facility]; Protocol Last Admin: 04/09/19 10:59 Dose: 1 applic Folic Acid (Folic Acid -) 1 mg GT DAILY [facility] Last Admin: 04/09/19 10:54 Dose: 1 mg Piperacillin Sod/Tazobactam (Sod 3.375 gm/ Dextrose) 50 mls @ 100 mls/hr IVPB Q8H-IV [facility]; Protocol Last Admin: 04/09/19 01:18 Dose: 100 mls/hr Lacosamide (Vimpat Liquid -) 200 mg GT BID [facility] Last Admin: 04/08/19 23:15 Dose: 200 mg Levetiracetam (Keppra Oral Solution -) 500 mg PO BID [facility] Last Admin: 04/09/19 10:55 Dose: 500 mg Lorazepam (Ativan Injection -) 1 mg IVPUSH Q8H PRN PRN Reason: ANXIETY Last Admin: 04/08/19 11:07 Dose: 1 mg Magnesium Oxide (Mag-Ox -) 400 mg GT BID [facility] Last Admin: 04/09/19 10:56 Dose: 400 mg Metoclopramide HCl (Reglan Injection -) 10 mg IVPUSH TID [facility] Last Admin: 04/09/19 06:54 Dose: 10 mg Midodrine (Proamatine -) 5 mg GT TID-MID [facility] Last Admin: 04/09/19 10:56 Dose: 5 mg Mirtazapine (Remeron -) 7.5 mg GT HS [facility] Last Admin: 04/08/19 22:42 Dose: 7.5 mg Multi-Ingredient Ointment (Zinc Oxide) 1 applic TP BID [facility] Last Admin: 04/09/19 11:00 Dose: 1 applic Oxcarbazepine (Trileptal -) 300 mg PO TID [facility] Last Admin: 04/09/19 06:54 Dose: 300 mg Pantoprazole Sodium (Protonix Packets For Oral Suspension -) 40 mg PEG BID [facility] Last Admin: 04/09/19 10:57 Dose: 40 mg - Objective Vital Signs: Vital Signs Temperature 98.8 F 04/09/19 08:10 Pulse Rate 81 04/09/19 08:10 Respiratory Rate 18 04/09/19 08:10 Blood Pressure 104/66 04/09/19 08:10 O2 Sat by Pulse Oximetry (%) 98 04/08/19 21:00 Constitutional: Yes: Well Nourished, Calm Eyes: Yes: WNL HENT: Yes: WNL Neck: Yes: WNL Cardiovascular: Yes: Regular Rate and Rhythm, S1, S2 Respiratory: Yes: Diminished Gastrointestinal: Yes: Normal Bowel Sounds, Soft Extremities: Yes: WNL Edema: No Labs: CBC, BMP 04/09/19 07:25 04/09/19 07:25 INR, PTT INR 1.11 (0.83-1.09) H 04/06/19 04:48 Problem List - Problems (1) NICOLÁS (acute kidney injury) Code(s): N17.9 - ACUTE KIDNEY FAILURE, UNSPECIFIED (2) Osteomyelitis Code(s): M86.9 - OSTEOMYELITIS, UNSPECIFIED (3) Sepsis Code(s): A41.9 - SEPSIS, UNSPECIFIED ORGANISM Qualifiers: Sepsis type: sepsis due to unspecified organism Sepsis acute organ dysfunction status: with acute organ dysfunction Severe sepsis acute organ dysfunction type: acute renal failure Acute renal failure type: unspecified Severe sepsis shock status: without septic shock Qualified Code(s): A41.9 - Sepsis, unspecified organism; R65.20 - Severe sepsis without septic shock; N17.9 - Acute kidney failure, unspecified (4) Anemia Code(s): D64.9 - ANEMIA, UNSPECIFIED Qualifiers: Anemia type: unspecified type Qualified Code(s): D64.9 - Anemia, unspecified (5) CVA (cerebral vascular accident) Code(s): I63.9 - CEREBRAL INFARCTION, UNSPECIFIED Qualifiers: CVA mechanism: unspecified Qualified Code(s): I63.9 - Cerebral infarction, unspecified (6) Functional quadriplegia Code(s): R53.2 - FUNCTIONAL QUADRIPLEGIA (7) HLD (hyperlipidemia) Code(s): E78.5 - HYPERLIPIDEMIA, UNSPECIFIED (8) HTN (hypertension) Code(s): I10 - ESSENTIAL (PRIMARY) HYPERTENSION (9) Seizures Code(s): R56.9 - UNSPECIFIED CONVULSIONS Assessment/Plan Assessment/Plan Sacral Osteomyelitis Sepsis Acute Kidney Injury Lactic Acidosis Dehydration/Hypernatremia Left Atelectasis h/o CVA HTN Hyperlipidemia Seizure Disorder - antibiotics per ID - aspiration precautions - monitor lytes - monitor urine output, creatinine - DVT prophylaxis DR BOWMAN
[2019-04-09] MEDS: Lacosamide 50 MG/5 ML ORAL SOLUTION UNIT CUPS GT SCH ×2 (12:01→22:09)
--- NOTE | 2019-04-09 12:16 | PN ---
Progress Note (short form) - Note Progress Note: pt seen/examined low grade temp chart reviewed awake baseline. Vital Signs Temp 98.8 F 04/09/19 08:10 Pulse 81 04/09/19 08:10 Resp 18 04/09/19 08:10 BP 104/66 04/09/19 08:10 Pulse Ox 98 04/08/19 21:00 Intake & Output 04/08/19 04/09/19 04/09/19 23:59 11:59 23:59 Intake Total 1250 Balance 1250 Intake: IVPB 50 Oral 0 Tube Feeding 550 Tube Irrigant 650 Other: Voiding Method Diaper Incontinent # Unmeasured Voids Void 2 Bowel Movement No Yes # Bowel Movements 1 1 Active Medications Acetaminophen (Tylenol Oral Solution -) 650 mg GT Q6H PRN PRN Reason: FEVER Last Admin: 04/07/19 17:42 Dose: 650 mg Ascorbic Acid (Vitamin C -) 500 mg GT DAILY [facility] Last Admin: 04/09/19 10:58 Dose: 500 mg Atorvastatin Calcium (Lipitor -) 40 mg GT HS [facility] Last Admin: 04/08/19 22:45 Dose: 40 mg Carbidopa/Levodopa (Sinemet 25/250 -) 1 each GT TID [facility] Last Admin: 04/09/19 06:54 Dose: 1 each Collagenase (Santyl -) 1 applic TP DAILY [facility]; Protocol Last Admin: 04/09/19 10:59 Dose: 1 applic Folic Acid (Folic Acid -) 1 mg GT DAILY [facility] Last Admin: 04/09/19 10:54 Dose: 1 mg Piperacillin Sod/Tazobactam (Sod 3.375 gm/ Dextrose) 50 mls @ 100 mls/hr IVPB Q8H-IV [facility]; Protocol Last Admin: 04/09/19 11:00 Dose: 100 mls/hr Lacosamide (Vimpat Liquid -) 200 mg GT BID [facility] Last Admin: 04/09/19 12:01 Dose: 200 mg Levetiracetam (Keppra Oral Solution -) 500 mg PO BID [facility] Last Admin: 04/09/19 10:55 Dose: 500 mg Lorazepam (Ativan Injection -) 1 mg IVPUSH Q8H PRN PRN Reason: ANXIETY Last Admin: 04/08/19 11:07 Dose: 1 mg Magnesium Oxide (Mag-Ox -) 400 mg GT BID [facility] Last Admin: 04/09/19 10:56 Dose: 400 mg Metoclopramide HCl (Reglan Injection -) 10 mg IVPUSH TID [facility] Last Admin: 04/09/19 06:54 Dose: 10 mg Midodrine (Proamatine -) 5 mg GT TID-MID [facility] Last Admin: 04/09/19 10:56 Dose: 5 mg Mirtazapine (Remeron -) 7.5 mg GT HS [facility] Last Admin: 04/08/19 22:42 Dose: 7.5 mg Multi-Ingredient Ointment (Zinc Oxide) 1 applic TP BID [facility] Last Admin: 04/09/19 11:00 Dose: 1 applic Oxcarbazepine (Trileptal -) 300 mg PO TID [facility] Last Admin: 04/09/19 06:54 Dose: 300 mg Pantoprazole Sodium (Protonix Packets For Oral Suspension -) 40 mg PEG BID [facility] Last Admin: 04/09/19 10:57 Dose: 40 mg CBC, BMP 04/09/19 07:25 04/09/19 07:25 Physical Exam. S1 S2 RRR Lungs decreased, crackles heard+ Abd- soft, NT GT+ no distress edema+decreased awake tremors + Microbiology 04/03/19 15:30 Blood - Peripheral Venous Blood Culture - Preliminary Staphylococcus Coagulase Neg 04/03/19 14:50 Blood - Peripheral Venous Blood Culture - Preliminary NO GROWTH OBTAINED AFTER 24 HOURS, INCUBATION TO CONTINUE FOR 4 DAYS. 04/03/19 14:33 Urine - Urine - Catheterized Urine Culture - Final NO GROWTH OBTAINED A/P Sepsis pneumonia Failure to thrive Hypernatremia h/o cva s/p g tube Dehydration meds reviewed Continue present care -->iv fluids--- s -->iv antibiotics ---> ID following -->will follow d/w RN also Problem List - Problems (1) GI bleed Code(s): K92.2 - GASTROINTESTINAL HEMORRHAGE, UNSPECIFIED Qualifiers: GI bleed type/associated pathology: gastrointestinal hemorrhage with hematemesis Qualified Code(s): K92.0 - Hematemesis (2) NICOLÁS (acute kidney injury) Code(s): N17.9 - ACUTE KIDNEY FAILURE, UNSPECIFIED (3) Hypernatremia Code(s): E87.0 - HYPEROSMOLALITY AND HYPERNATREMIA (4) Osteomyelitis Code(s): M86.9 - OSTEOMYELITIS, UNSPECIFIED (5) Sepsis Code(s): A41.9 - SEPSIS, UNSPECIFIED ORGANISM Qualifiers: Sepsis type: sepsis due to unspecified organism Sepsis acute organ dysfunction status: with acute organ dysfunction Severe sepsis acute organ dysfunction type: acute renal failure Acute renal failure type: unspecified Severe sepsis shock status: without septic shock Qualified Code(s): A41.9 - Sepsis, unspecified organism; R65.20 - Severe sepsis without septic shock; N17.9 - Acute kidney failure, unspecified
--- NOTE | 2019-04-09 14:40 | PN ---
Progress Note (short form) - Note Progress Note: Renal follow up for hypernatremia and NICOLÁS Seen and examined at the bedside awake, non-verbal no overnight events on tube feeds, tolerating it well making urine Vital Signs Temperature 101.1 F H 04/09/19 13:38 Pulse Rate 113 H 04/09/19 13:38 Respiratory Rate 18 04/09/19 13:38 Blood Pressure 130/71 04/09/19 13:38 O2 Sat by Pulse Oximetry (%) 98 04/08/19 21:00 Intake & Output 04/06/19 04/07/19 04/08/19 04/09/19 23:59 23:59 23:59 23:59 Intake Total 585 101 4005 1250 Balance 489 637 2711 1250 NAD RRR CTA soft NT/ND, feeding tube in place no LE or sacral edema CBC, BMP 04/09/19 07:25 04/09/19 07:25 Current Medications Acetaminophen (Tylenol Oral Solution -) 650 mg GT Q6H PRN PRN Reason: FEVER Last Admin: 04/07/19 17:42 Dose: 650 mg Ascorbic Acid (Vitamin C -) 500 mg GT DAILY [facility] Last Admin: 04/09/19 10:58 Dose: 500 mg Atorvastatin Calcium (Lipitor -) 40 mg GT HS [facility] Last Admin: 04/08/19 22:45 Dose: 40 mg Carbidopa/Levodopa (Sinemet 25/250 -) 1 each GT TID [facility] Last Admin: 04/09/19 06:54 Dose: 1 each Collagenase (Santyl -) 1 applic TP DAILY [facility]; Protocol Last Admin: 04/09/19 10:59 Dose: 1 applic Folic Acid (Folic Acid -) 1 mg GT DAILY [facility] Last Admin: 04/09/19 10:54 Dose: 1 mg Piperacillin Sod/Tazobactam (Sod 3.375 gm/ Dextrose) 50 mls @ 100 mls/hr IVPB Q8H-IV [facility]; Protocol Last Admin: 04/09/19 11:00 Dose: 100 mls/hr Lacosamide (Vimpat Liquid -) 200 mg GT BID [facility] Last Admin: 04/09/19 12:01 Dose: 200 mg Levetiracetam (Keppra Oral Solution -) 500 mg PO BID [facility] Last Admin: 04/09/19 10:55 Dose: 500 mg Lorazepam (Ativan Injection -) 1 mg IVPUSH Q8H PRN PRN Reason: ANXIETY Last Admin: 04/08/19 11:07 Dose: 1 mg Magnesium Oxide (Mag-Ox -) 400 mg GT BID [facility] Last Admin: 04/09/19 10:56 Dose: 400 mg Metoclopramide HCl (Reglan Injection -) 10 mg IVPUSH TID [facility] Last Admin: 04/09/19 06:54 Dose: 10 mg Midodrine (Proamatine -) 5 mg GT TID-MID [facility] Last Admin: 04/09/19 10:56 Dose: 5 mg Mirtazapine (Remeron -) 7.5 mg GT HS [facility] Last Admin: 04/08/19 22:42 Dose: 7.5 mg Multi-Ingredient Ointment (Zinc Oxide) 1 applic TP BID [facility] Last Admin: 04/09/19 11:00 Dose: 1 applic Oxcarbazepine (Trileptal -) 300 mg PO TID [facility] Last Admin: 04/09/19 06:54 Dose: 300 mg Pantoprazole Sodium (Protonix Packets For Oral Suspension -) 40 mg PEG BID [facility] Last Admin: 04/09/19 10:57 Dose: 40 mg 68 year old woman with history of respiratory failure, stroke, CAD s/p STEMI, hypertension, hyperlipidemia, seizure disorder, MDD who presented with fever and respiratory distress and found to have serum na of 162 and Cr of 1.5. Baseline Cr 0.4-0.8. 1. Acute Kidney injury in setting of suspected sepsis 2. Hypernatremia 3. Lactic acidosis 4. Suspected Sepsis 5. Sacral wound Renal function now improved to baseline Serum Na is now WNL, will D/c IVF and start additional 1200cc of free water throughout the day continue tube feeds and hourly flushes as well Continue zosyn as per ID /Primary team check BMP in AM Thank you Constantino Mejía DO
[2019-04-09] MEDS: ACETAMINOPHEN 650 MG/20.3 ML ORAL SOLUTION (CUPS) GT PRN (15:12)
[2019-04-09] MEDS: MIRTAZAPINE 15 MG TABLET (FP) GT SCH (22:08)
[2019-04-09] MEDS: ATORVASTATIN CA 40 MG TABLET (FP) GT SCH (22:08)
[2019-04-10] MEDS ORDERED: PIPERACILLIN/TAZOBACTAM 3.375 GM VIAL IVPB ONE ×3 (01:54→17:02)
[2019-04-10] MEDS ORDERED: DEXTROSE 5%-WATER - 50 ML IVPB ONE ×3 (01:54→17:02)
[2019-04-10] MEDS: PIPERACILLIN/TAZOB 3.375 GM 3.375 GM in DEXTROSE 5%-WATER - 50 ML IVPB SCH ×3 (02:10→17:17)
[2019-04-10] MEDS ORDERED: PT OWN MED DRAWER 7, Y5N ONE ×5 (06:35→21:53)
[2019-04-10] MEDS: CARBIDOPA/LEVODOPA 25/250 TABLET (FP) GT SCH ×3 (06:36→21:56)
[2019-04-10] MEDS: METOCLOPRAMIDE HCL INJECTION 10 MG/2 ML VIAL IVPUSH SCH ×3 (06:36→21:55)
[2019-04-10] MEDS: OXcarbazepine 300 MG TABLET (UD) PO SCH ×3 (06:37→21:56)
[2019-04-10] MEDS: FOLIC ACID 1 MG TABLET (FP) GT SCH ×2 (09:42→17:19)
[2019-04-10] MEDS: levETIRAcetam 500 MG/5 ML ORAL SOLUTION (UNIT-DOSE CUPS) PO SCH ×3 (09:42→21:57)
[2019-04-10] MEDS: MAGNESIUM OXIDE 400 MG TABLET (FP) GT SCH ×3 (09:43→21:55)
[2019-04-10] MEDS: MIDODRINE HCL 5 MG TABLET GT SCH ×4 (09:43→21:55)
[2019-04-10] MEDS: PANTOPRAZOLE SOD 40 MG SUSPENSION PACKET PEG SCH ×2 (09:43→21:55)
[2019-04-10] MEDS: ASCORBIC ACID 500 MG TABLET (FP) GT SCH ×2 (09:44→17:22)
[2019-04-10] MEDS: Lacosamide 50 MG/5 ML ORAL SOLUTION UNIT CUPS GT SCH ×3 (09:44→21:56)
[2019-04-10] MEDS: COLLAGENASE CLOSTRIDIUM HIST. 30 GRAMS TUBE TP SCH (09:44)
[2019-04-10] MEDS: ZINC OXIDE 20% TOPICAL OINTMENT 30 GM TUBE TP SCH ×2 (09:45→21:57)
--- NOTE | 2019-04-10 10:47 | PN ---
Progress Note (short form) - Note Progress Note: awake, no distress has loose stools mumbling Vital Signs - 24 hr 04/09/19 04/09/19 04/09/19 13:38 18:00 21:00 Temperature 100.1 F H 98.8 F Pulse Rate 113 H 83 Respiratory 18 18 Rate Blood Pressure 130/71 97/61 O2 Sat by Pulse 100 Oximetry (%) 04/09/19 04/10/19 04/10/19 22:00 02:00 06:00 Temperature 99.9 F H 98.9 F 98.6 F Pulse Rate 85 82 88 Respiratory 18 18 18 Rate Blood Pressure 112/63 108/61 97/64 O2 Sat by Pulse Oximetry (%) 04/10/19 08:30 Temperature 99.2 F Pulse Rate 81 Respiratory 18 Rate Blood Pressure 101/65 O2 Sat by Pulse Oximetry (%) Current Medications Generic Name Dose Route Start Last Admin Trade Name Freq PRN Reason Stop Dose Admin Acetaminophen 650 mg 04/03/19 23:53 04/09/19 15:12 Tylenol Oral Solution - GT 650 mg Q6H PRN Administration FEVER Ascorbic Acid 500 mg 04/04/19 10:00 04/10/19 09:44 Vitamin C - GT 500 mg DAILY [facility] Administration Atorvastatin Calcium 40 mg 04/03/19 22:00 04/09/19 22:08 Lipitor - GT 40 mg HS [facility] Administration Carbidopa/Levodopa 1 each 04/03/19 22:45 04/10/19 06:36 Sinemet 25/250 - GT 1 each TID [facility] Administration Collagenase 1 applic 04/04/19 11:00 04/10/19 09:44 Santyl - TP 1 applic DAILY [facility] Administration Protocol Folic Acid 1 mg 04/04/19 10:00 04/10/19 09:42 Folic Acid - GT 1 mg DAILY [facility] Administration Piperacillin Sod/Tazobactam 50 mls @ 100 mls/hr 04/04/19 18:00 04/10/19 09:45 Sod 3.375 gm/ Dextrose IVPB 100 mls/hr Q8H-IV [facility] Administration Protocol Lacosamide 200 mg 04/03/19 22:45 04/10/19 09:44 Vimpat Liquid - GT 200 mg BID [facility] Administration Levetiracetam 500 mg 04/03/19 22:45 04/10/19 09:42 Keppra Oral Solution - PO 500 mg BID [facility] Administration Lorazepam 1 mg 04/08/19 10:32 04/08/19 11:07 Ativan Injection - IVPUSH 1 mg Q8H PRN Administration ANXIETY Magnesium Oxide 400 mg 04/04/19 10:00 04/10/19 09:43 Mag-Ox - GT 400 mg BID [facility] Administration Metoclopramide HCl 10 mg 04/06/19 21:15 04/10/19 06:36 Reglan Injection - IVPUSH 10 mg TID [facility] Administration Midodrine 5 mg 04/04/19 10:00 04/10/19 09:43 Proamatine - GT 5 mg TID-MID [facility] Administration Mirtazapine 7.5 mg 04/04/19 22:00 04/09/19 22:08 Remeron - GT 7.5 mg HS [facility] Administration Multi-Ingredient Ointment 1 applic 04/04/19 11:00 04/10/19 09:45 Zinc Oxide TP 1 applic BID [facility] Administration Oxcarbazepine 300 mg 04/04/19 06:00 04/10/19 06:37 Trileptal - PO 300 mg TID [facility] Administration Pantoprazole Sodium 40 mg 04/06/19 22:00 04/10/19 09:43 Protonix Packets For Oral Suspension - PEG 40 mg BID [facility] Administration Laboratory Results - last 24 hr 04/06/19 04:48 Blood Type A POSITIVE Antibody Screen Negative Crossmatch See Detail S1 S2 RRR Lungs decreased, crackles heard+ Abd- soft, NT GT+ no distress edema+decreased Microbiology 04/03/19 15:30 Blood - Peripheral Venous Blood Culture - Preliminary Staphylococcus Coagulase Neg 04/03/19 14:50 Blood - Peripheral Venous Blood Culture - Preliminary NO GROWTH OBTAINED AFTER 24 HOURS, INCUBATION TO CONTINUE FOR 4 DAYS. 04/03/19 14:33 Urine - Urine - Catheterized Urine Culture - Final NO GROWTH OBTAINED A/P Sepsis pneumonia? Failure to thrive Hypernatremia Dehydration -->iv fluids--- dc-->sodium normal -->has low grade fever and slight elevated WBC-- monitor and continue Zosyn -->iv antibiotics ---> ID follow up -->renal eval noted -->ativan as needed Problem List - Problems (1) NICOLÁS (acute kidney injury) Code(s): N17.9 - ACUTE KIDNEY FAILURE, UNSPECIFIED (2) Hypernatremia Code(s): E87.0 - HYPEROSMOLALITY AND HYPERNATREMIA (3) Pneumonia Code(s): J18.9 - PNEUMONIA, UNSPECIFIED ORGANISM Qualifiers: Pneumonia type: due to unspecified organism Laterality: left Lung location: lower lobe of lung Qualified Code(s): J18.1 - Lobar pneumonia, unspecified organism (4) Sepsis Code(s): A41.9 - SEPSIS, UNSPECIFIED ORGANISM Qualifiers: Sepsis type: sepsis due to unspecified organism Sepsis acute organ dysfunction status: with acute organ dysfunction Severe sepsis acute organ dysfunction type: acute renal failure Acute renal failure type: unspecified Severe sepsis shock status: without septic shock Qualified Code(s): A41.9 - Sepsis, unspecified organism; R65.20 - Severe sepsis without septic shock; N17.9 - Acute kidney failure, unspecified (5) Functional quadriplegia Code(s): R53.2 - FUNCTIONAL QUADRIPLEGIA (6) HLD (hyperlipidemia) Code(s): E78.5 - HYPERLIPIDEMIA, UNSPECIFIED (7) HTN (hypertension) Code(s): I10 - ESSENTIAL (PRIMARY) HYPERTENSION
--- NOTE | 2019-04-10 12:34 | PN ---
Progress Note, Physician History of Present Illness: PULMONARY AWAKE,COMFORTABLE,-RESP DISTRESS - Current Medication List Current Medications: Active Medications Acetaminophen (Tylenol Oral Solution -) 650 mg GT Q6H PRN PRN Reason: FEVER Last Admin: 04/09/19 15:12 Dose: 650 mg Ascorbic Acid (Vitamin C -) 500 mg GT DAILY [facility] Last Admin: 04/09/19 10:58 Dose: 500 mg Atorvastatin Calcium (Lipitor -) 40 mg GT HS [facility] Last Admin: 04/09/19 22:08 Dose: 40 mg Carbidopa/Levodopa (Sinemet 25/250 -) 1 each GT TID [facility] Last Admin: 04/10/19 06:36 Dose: 1 each Collagenase (Santyl -) 1 applic TP DAILY [facility]; Protocol Last Admin: 04/10/19 09:44 Dose: 1 applic Folic Acid (Folic Acid -) 1 mg GT DAILY [facility] Last Admin: 04/09/19 10:54 Dose: 1 mg Piperacillin Sod/Tazobactam (Sod 3.375 gm/ Dextrose) 50 mls @ 100 mls/hr IVPB Q8H-IV [facility]; Protocol Last Admin: 04/10/19 09:45 Dose: 100 mls/hr Lacosamide (Vimpat Liquid -) 200 mg GT BID [facility] Last Admin: 04/09/19 22:09 Dose: 200 mg Levetiracetam (Keppra Oral Solution -) 500 mg PO BID [facility] Last Admin: 04/09/19 22:07 Dose: 500 mg Lorazepam (Ativan Injection -) 1 mg IVPUSH Q8H PRN PRN Reason: ANXIETY Last Admin: 04/08/19 11:07 Dose: 1 mg Magnesium Oxide (Mag-Ox -) 400 mg GT BID [facility] Last Admin: 04/09/19 22:08 Dose: 400 mg Metoclopramide HCl (Reglan Injection -) 10 mg IVPUSH TID [facility] Last Admin: 04/10/19 06:36 Dose: 10 mg Midodrine (Proamatine -) 5 mg GT TID-[facility] Last Admin: 04/09/19 18:00 Dose: 5 mg Mirtazapine (Remeron -) 7.5 mg GT HS [facility] Last Admin: 04/09/19 22:08 Dose: 7.5 mg Multi-Ingredient Ointment (Zinc Oxide) 1 applic TP BID [facility] Last Admin: 04/10/19 09:45 Dose: 1 applic Oxcarbazepine (Trileptal -) 300 mg PO TID [facility] Last Admin: 04/10/19 06:37 Dose: 300 mg Pantoprazole Sodium (Protonix Packets For Oral Suspension -) 40 mg PEG BID [facility] Last Admin: 04/10/19 09:43 Dose: 40 mg - Objective Vital Signs: Vital Signs Temperature 99.2 F 04/10/19 08:30 Pulse Rate 81 04/10/19 08:30 Respiratory Rate 18 04/10/19 08:30 Blood Pressure 101/65 04/10/19 08:30 O2 Sat by Pulse Oximetry (%) 100 04/09/19 21:00 Constitutional: Yes: Well Nourished, Calm Eyes: Yes: WNL HENT: Yes: WNL Neck: Yes: WNL Cardiovascular: Yes: Regular Rate and Rhythm, S1, S2 Respiratory: Yes: Rhonchi (FEW RHONCHI), Other (POOR INSPIRATORY EFFORT) Gastrointestinal: Yes: Normal Bowel Sounds, Soft Extremities: Yes: WNL Edema: No Labs: CBC, BMP 04/09/19 07:25 04/09/19 07:25 INR, PTT INR 1.11 (0.83-1.09) H 04/06/19 04:48 Problem List - Problems (1) NICOLÁS (acute kidney injury) Code(s): N17.9 - ACUTE KIDNEY FAILURE, UNSPECIFIED (2) Osteomyelitis Code(s): M86.9 - OSTEOMYELITIS, UNSPECIFIED (3) Sepsis Code(s): A41.9 - SEPSIS, UNSPECIFIED ORGANISM Qualifiers: Sepsis type: sepsis due to unspecified organism Sepsis acute organ dysfunction status: with acute organ dysfunction Severe sepsis acute organ dysfunction type: acute renal failure Acute renal failure type: unspecified Severe sepsis shock status: without septic shock Qualified Code(s): A41.9 - Sepsis, unspecified organism; R65.20 - Severe sepsis without septic shock; N17.9 - Acute kidney failure, unspecified (4) Anemia Code(s): D64.9 - ANEMIA, UNSPECIFIED Qualifiers: Anemia type: unspecified type Qualified Code(s): D64.9 - Anemia, unspecified (5) CVA (cerebral vascular accident) Code(s): I63.9 - CEREBRAL INFARCTION, UNSPECIFIED Qualifiers: CVA mechanism: unspecified Qualified Code(s): I63.9 - Cerebral infarction, unspecified (6) Functional quadriplegia Code(s): R53.2 - FUNCTIONAL QUADRIPLEGIA (7) HLD (hyperlipidemia) Code(s): E78.5 - HYPERLIPIDEMIA, UNSPECIFIED (8) HTN (hypertension) Code(s): I10 - ESSENTIAL (PRIMARY) HYPERTENSION (9) Seizures Code(s): R56.9 - UNSPECIFIED CONVULSIONS Assessment/Plan Assessment/Plan Sacral Osteomyelitis Sepsis Acute Kidney Injury Lactic Acidosis Dehydration/Hypernatremia Left Atelectasis h/o CVA HTN Hyperlipidemia Seizure Disorder - antibiotics per ID - aspiration precautions - monitor lytes - monitor urine output, creatinine - DVT prophylaxis DR BOWMAN
--- NOTE | 2019-04-10 13:29 | PN ---
Progress Note, Physician History of Present Illness: continues to have low grade fever patient has chronic osteo - Current Medication List Current Medications: Active Medications Acetaminophen (Tylenol Oral Solution -) 650 mg GT Q6H PRN PRN Reason: FEVER Last Admin: 04/09/19 15:12 Dose: 650 mg Ascorbic Acid (Vitamin C -) 500 mg GT DAILY [facility] Last Admin: 04/09/19 10:58 Dose: 500 mg Atorvastatin Calcium (Lipitor -) 40 mg GT HS [facility] Last Admin: 04/09/19 22:08 Dose: 40 mg Carbidopa/Levodopa (Sinemet 25/250 -) 1 each GT TID [facility] Last Admin: 04/10/19 06:36 Dose: 1 each Collagenase (Santyl -) 1 applic TP DAILY [facility]; Protocol Last Admin: 04/10/19 09:44 Dose: 1 applic Folic Acid (Folic Acid -) 1 mg GT DAILY [facility] Last Admin: 04/09/19 10:54 Dose: 1 mg Piperacillin Sod/Tazobactam (Sod 3.375 gm/ Dextrose) 50 mls @ 100 mls/hr IVPB Q8H-IV [facility]; Protocol Last Admin: 04/10/19 09:45 Dose: 100 mls/hr Lacosamide (Vimpat Liquid -) 200 mg GT BID [facility] Last Admin: 04/09/19 22:09 Dose: 200 mg Levetiracetam (Keppra Oral Solution -) 500 mg PO BID [facility] Last Admin: 04/09/19 22:07 Dose: 500 mg Lorazepam (Ativan Injection -) 1 mg IVPUSH Q8H PRN PRN Reason: ANXIETY Last Admin: 04/08/19 11:07 Dose: 1 mg Magnesium Oxide (Mag-Ox -) 400 mg GT BID [facility] Last Admin: 04/09/19 22:08 Dose: 400 mg Metoclopramide HCl (Reglan Injection -) 10 mg IVPUSH TID [facility] Last Admin: 04/10/19 06:36 Dose: 10 mg Midodrine (Proamatine -) 5 mg GT TID-MID [facility] Last Admin: 04/09/19 18:00 Dose: 5 mg Mirtazapine (Remeron -) 7.5 mg GT HS [facility] Last Admin: 04/09/19 22:08 Dose: 7.5 mg Multi-Ingredient Ointment (Zinc Oxide) 1 applic TP BID [facility] Last Admin: 04/10/19 09:45 Dose: 1 applic Oxcarbazepine (Trileptal -) 300 mg PO TID [facility] Last Admin: 04/10/19 06:37 Dose: 300 mg Pantoprazole Sodium (Protonix Packets For Oral Suspension -) 40 mg PEG BID [facility] Last Admin: 04/10/19 09:43 Dose: 40 mg - Objective Vital Signs: Vital Signs Temperature 99.2 F 04/10/19 08:30 Pulse Rate 81 04/10/19 08:30 Respiratory Rate 18 04/10/19 08:30 Blood Pressure 101/65 04/10/19 08:30 O2 Sat by Pulse Oximetry (%) 100 04/10/19 09:00 Constitutional: Yes: No Distress, Calm Cardiovascular: Yes: S1, S2 Gastrointestinal: Yes: Normal Bowel Sounds, Soft Musculoskeletal: Yes: WNL Extremities: Yes: WNL Wound/Incision: Yes: Dressing Dry and Intact Neurological: Yes: Alert, Oriented Psychiatric: Yes: Alert, Oriented Labs: CBC, BMP 04/09/19 07:25 04/09/19 07:25 INR, PTT INR 1.11 (0.83-1.09) H 04/06/19 04:48 Assessment/Plan this patient with multiple medical problems coming wiht fever and resp distress with ct scan showing a new infiltrate and leukocytosis currently patient looks better sacral decubitus ulcer foul smelling decubitus ulcer fever resp distress leukocytosis plan conitnue abx nutrition can villafana to oral augmentin for another week on discharge
--- NOTE | 2019-04-10 14:51 | PN ---
Progress Note (short form) - Note Progress Note: Renal follow up for hypernatremia and NICOLÁS Seen and examined at the bedside awake, non-verbal no overnight events on tube feeds with free water Vital Signs Temperature 99.2 F 04/10/19 08:30 Pulse Rate 81 04/10/19 08:30 Respiratory Rate 18 04/10/19 08:30 Blood Pressure 101/65 04/10/19 08:30 O2 Sat by Pulse Oximetry (%) 100 04/10/19 09:00 Intake & Output 04/07/19 04/08/19 04/09/19 04/10/19 23:59 23:59 23:59 23:59 Intake Total 550 2130 1970 880 Balance 550 2130 1970 880 NAD RRR CTA soft NT/ND, feeding tube in place no LE or sacral edema CBC, BMP 04/09/19 07:25 04/09/19 07:25 Current Medications Acetaminophen (Tylenol Oral Solution -) 650 mg GT Q6H PRN PRN Reason: FEVER Last Admin: 04/09/19 15:12 Dose: 650 mg Ascorbic Acid (Vitamin C -) 500 mg GT DAILY [facility] Last Admin: 04/09/19 10:58 Dose: 500 mg Atorvastatin Calcium (Lipitor -) 40 mg GT HS [facility] Last Admin: 04/09/19 22:08 Dose: 40 mg Carbidopa/Levodopa (Sinemet 25/250 -) 1 each GT TID [facility] Last Admin: 04/10/19 06:36 Dose: 1 each Collagenase (Santyl -) 1 applic TP DAILY [facility]; Protocol Last Admin: 04/10/19 09:44 Dose: 1 applic Folic Acid (Folic Acid -) 1 mg GT DAILY [facility] Last Admin: 04/09/19 10:54 Dose: 1 mg Piperacillin Sod/Tazobactam (Sod 3.375 gm/ Dextrose) 50 mls @ 100 mls/hr IVPB Q8H-IV [facility]; Protocol Last Admin: 04/10/19 09:45 Dose: 100 mls/hr Lacosamide (Vimpat Liquid -) 200 mg GT BID [facility] Last Admin: 04/09/19 22:09 Dose: 200 mg Levetiracetam (Keppra Oral Solution -) 500 mg PO BID [facility] Last Admin: 04/09/19 22:07 Dose: 500 mg Lorazepam (Ativan Injection -) 1 mg IVPUSH Q8H PRN PRN Reason: ANXIETY Last Admin: 04/08/19 11:07 Dose: 1 mg Magnesium Oxide (Mag-Ox -) 400 mg GT BID [facility] Last Admin: 04/09/19 22:08 Dose: 400 mg Metoclopramide HCl (Reglan Injection -) 10 mg IVPUSH TID [facility] Last Admin: 04/10/19 14:10 Dose: 10 mg Midodrine (Proamatine -) 5 mg GT TID-MID [facility] Last Admin: 04/09/19 18:00 Dose: 5 mg Mirtazapine (Remeron -) 7.5 mg GT HS [facility] Last Admin: 04/09/19 22:08 Dose: 7.5 mg Multi-Ingredient Ointment (Zinc Oxide) 1 applic TP BID [facility] Last Admin: 04/10/19 09:45 Dose: 1 applic Oxcarbazepine (Trileptal -) 300 mg PO TID [facility] Last Admin: 04/10/19 06:37 Dose: 300 mg Pantoprazole Sodium (Protonix Packets For Oral Suspension -) 40 mg PEG BID [facility] Last Admin: 04/10/19 09:43 Dose: 40 mg 68 year old woman with history of respiratory failure, stroke, CAD s/p STEMI, hypertension, hyperlipidemia, seizure disorder, MDD who presented with fever and respiratory distress and found to have serum na of 162 and Cr of 1.5. Baseline Cr 0.4-0.8. 1. Acute Kidney injury in setting of suspected sepsis 2. Hypernatremia 3. Lactic acidosis 4. Suspected Sepsis 5. Sacral wound Renal function improved and stable. continue free water via G-tube. Trend Na daily while inpatient. Thank you Constantino Mejía DO
--- NOTE | 2019-04-10 15:24 | PN ---
Progress Note (short form) - Note Progress Note: Called that g-Tube clogged: On exam, patient with 16Fr balloon PEG in place. Unable to be flushed. Balloon deflated and tube removed 18Fr. Balloon replacement gastrostomy tube placed through the stoma without difficulty and bolster noted at the 3cm at the level of the abdominal wall. Balloon inflated with 6cc sterile water Obtain G-Tube study prior to use (ordered) aspiration precautions
[2019-04-10] MEDS: ATORVASTATIN CA 40 MG TABLET (FP) GT SCH (21:56)
[2019-04-10] MEDS: MIRTAZAPINE 15 MG TABLET (FP) GT SCH (21:56)
[2019-04-10] MEDS: ACETAMINOPHEN 650 MG/20.3 ML ORAL SOLUTION (CUPS) GT PRN (22:15)
[2019-04-11] MEDS ORDERED: PIPERACILLIN/TAZOBACTAM 3.375 GM VIAL IVPB ONE ×2 (01:13→10:21)
[2019-04-11] MEDS ORDERED: DEXTROSE 5%-WATER - 50 ML IVPB ONE ×2 (01:14→10:21)
[2019-04-11] MEDS: PIPERACILLIN/TAZOB 3.375 GM 3.375 GM in DEXTROSE 5%-WATER - 50 ML IVPB SCH ×2 (01:17→10:30)
[2019-04-11] MEDS: OXcarbazepine 300 MG TABLET (UD) PO SCH ×2 (06:30→14:11)
[2019-04-11] MEDS: CARBIDOPA/LEVODOPA 25/250 TABLET (FP) GT SCH ×2 (06:30→14:11)
[2019-04-11] MEDS ORDERED: PT OWN MED DRAWER 7, Y5N ONE ×2 (06:30→10:21)
[2019-04-11] MEDS: METOCLOPRAMIDE HCL INJECTION 10 MG/2 ML VIAL IVPUSH SCH ×2 (06:30→14:11)
[2019-04-11 06:38] LABS: BLOOD UREA NITROGEN 7.2 mg/dL (7-18); CALCIUM 8.8 mg/dL (8.5-10.1); CREATININE 0.5 mg/dL (0.55-1.3); POTASSIUM 4.1 mmol/L (3.5-5.1)
[2019-04-11 07:06] LABS: BASO % 0.6 % (0-2.0); HEMOGLOBIN 9.4 GM/dL (10.7-15.3); LYMPH % 30.7 % (8-40); MCH 30.6 pg (25.7-33.7); MCHC 33.5 g/dl (32.0-36.0); MEAN CELL VOLUME 91.4 fl (80-96); MEAN PLT VOLUME 9.6 fl (7.5-11.1); NEUT % 57.7 % (42.8-82.8); PLATELET COUNT 231 K/MM3 (134-434); RBC 3.07 M/mm3 (3.60-5.2); RDW 16.5 % (11.6-15.6); WHITE BLOOD COUNT 8.8 K/mm3 (4.0-10.0)
[2019-04-11 08:59] VITALS: PULSE 89
[2019-04-11] MEDS: levETIRAcetam 500 MG/5 ML ORAL SOLUTION (UNIT-DOSE CUPS) PO SCH (10:31)
[2019-04-11] MEDS: FOLIC ACID 1 MG TABLET (FP) GT SCH (10:31)
[2019-04-11] MEDS: MIDODRINE HCL 5 MG TABLET GT SCH ×2 (10:31→14:11)
[2019-04-11] MEDS: MAGNESIUM OXIDE 400 MG TABLET (FP) GT SCH (10:31)
[2019-04-11] MEDS: PANTOPRAZOLE SOD 40 MG SUSPENSION PACKET PEG SCH (10:31)
[2019-04-11] MEDS: COLLAGENASE CLOSTRIDIUM HIST. 30 GRAMS TUBE TP SCH (10:32)
[2019-04-11] MEDS: ZINC OXIDE 20% TOPICAL OINTMENT 30 GM TUBE TP SCH (10:32)
[2019-04-11] MEDS: ASCORBIC ACID 500 MG TABLET (FP) GT SCH (10:32)
--- NOTE | 2019-04-11 11:49 | DS ---
Physical Examination Vital Signs: Vital Signs Temperature 99.4 F 04/11/19 08:45 Pulse Rate 89 04/11/19 08:45 Respiratory Rate 19 04/11/19 08:45 Blood Pressure 111/61 04/11/19 08:45 O2 Sat by Pulse Oximetry (%) 100 04/10/19 21:00 Labs: CBC, BMP 04/11/19 05:05 04/11/19 05:05 Discharge Summary Reason For Visit: ACUTE KIDNEY INJURY,HYPERNATREMIA,SEVERE SEPSIS Current Active Problems NICOLÁS (acute kidney injury) (Acute) GI bleed (Acute) Hypernatremia (Acute) Osteomyelitis (Acute) Pneumonia (Acute) Sepsis (Acute) - Instructions - Home Medications Comprehensive Discharge Medication List: Ambulatory Orders Acetaminophen [Tylenol] 650 mg GT Q4H PRN 04/03/19 Amantadine HCl [Amantadine] 100 mg GT BID 04/03/19 Ascorbic Acid [Vitamin C -] 500 mg GT DAILY 04/03/19 Aspirin 81 mg GT DAILY 04/03/19 Atorvastatin Calcium 40 mg GT HS 04/03/19 Carbidopa/Levodopa [Carbidopa-Levodopa 25-250 Tab] 1 each GT TID 04/03/19 Folic Acid 1 mg GT DAILY 04/03/19 Furosemide [Lasix -] 20 mg GT DAILY 04/03/19 Ibuprofen [Motrin -] 600 mg GT QID PRN 04/03/19 Lacosamide Liquid [Vimpat Liquid -] 200 mg GT BID 04/03/19 Magnesium Oxide [Mag-Oxide] 400 mg GT BID 04/03/19 Midodrine HCl [Proamatine -] 5 mg GT TID 04/03/19 Mirtazapine 7.5 mg GT HS 04/03/19 Omeprazole 20 mg GT DAILY 04/03/19 Oxcarbazepine [Trileptal -] 300 mg GT TID 04/03/19 Ranitidine [Zantac -] 150 mg GT HS 04/03/19 levETIRAcetam [Keppra -] 500 mg GT BID 04/03/19
[2019-04-11] MEDS ORDERED: Lacosamide 50 MG/5 ML ORAL SOLUTION UNIT CUPS PO SCH (12:00)
--- NOTE | 2019-04-11 12:55 | PN ---
Progress Note, Physician - Current Medication List Current Medications: Active Medications Acetaminophen (Tylenol Oral Solution -) 650 mg GT Q6H PRN PRN Reason: FEVER Last Admin: 04/10/19 22:15 Dose: 650 mg Ascorbic Acid (Vitamin C -) 500 mg GT DAILY [facility] Last Admin: 04/11/19 10:32 Dose: 500 mg Atorvastatin Calcium (Lipitor -) 40 mg GT HS [facility] Last Admin: 04/10/19 21:56 Dose: 40 mg Carbidopa/Levodopa (Sinemet 25/250 -) 1 each GT TID [facility] Last Admin: 04/11/19 06:30 Dose: 1 each Collagenase (Santyl -) 1 applic TP DAILY [facility]; Protocol Last Admin: 04/11/19 10:32 Dose: 1 applic Folic Acid (Folic Acid -) 1 mg GT DAILY [facility] Last Admin: 04/11/19 10:31 Dose: 1 mg Piperacillin Sod/Tazobactam (Sod 3.375 gm/ Dextrose) 50 mls @ 100 mls/hr IVPB Q8H-IV [facility]; Protocol Last Admin: 04/11/19 10:30 Dose: 100 mls/hr Lacosamide (Vimpat Liquid -) 200 mg PO BID [facility] Levetiracetam (Keppra Oral Solution -) 500 mg PO BID [facility] Last Admin: 04/11/19 10:31 Dose: 500 mg Magnesium Oxide (Mag-Ox -) 400 mg GT BID [facility] Last Admin: 04/11/19 10:31 Dose: 400 mg Metoclopramide HCl (Reglan Injection -) 10 mg IVPUSH TID [facility] Last Admin: 04/11/19 06:30 Dose: 10 mg Midodrine (Proamatine -) 5 mg GT TID-MID [facility] Last Admin: 04/11/19 10:31 Dose: 5 mg Mirtazapine (Remeron -) 7.5 mg GT HS [facility] Last Admin: 04/10/19 21:56 Dose: 7.5 mg Multi-Ingredient Ointment (Zinc Oxide) 1 applic TP BID [facility] Last Admin: 04/11/19 10:32 Dose: 1 applic Oxcarbazepine (Trileptal -) 300 mg PO TID [facility] Last Admin: 04/11/19 06:30 Dose: 300 mg Pantoprazole Sodium (Protonix Packets For Oral Suspension -) 40 mg PEG BID [facility] Last Admin: 04/11/19 10:31 Dose: 40 mg - Objective Vital Signs: Vital Signs Temperature 99.4 F 04/11/19 08:45 Pulse Rate 89 04/11/19 08:45 Respiratory Rate 04/11/19 08:45 Blood Pressure 111/61 04/11/19 08:45 O2 Sat by Pulse Oximetry (%) 100 04/11/19 09:00 Labs: CBC, BMP 04/11/19 05:05 04/11/19 05:05 INR, PTT INR 1.11 (0.83-1.09) H 04/06/19 04:48
--- NOTE | 2019-04-11 13:33 | PN ---
Progress Note (short form) - Note Progress Note: Renal follow up for hypernatremia and NICOLÁS Seen and examined at the bedside awake, non-verbal low grade fever overnight on tube feeds with free water Vital Signs Temperature 99.4 F 04/11/19 08:45 Pulse Rate 89 04/11/19 08:45 Respiratory Rate 19 04/11/19 08:45 Blood Pressure 111/61 04/11/19 08:45 O2 Sat by Pulse Oximetry (%) 100 04/11/19 09:00 Intake & Output 04/08/19 04/09/19 04/10/19 04/11/19 23:59 23:59 23:59 23:59 Intake Total 2129 1969 1890 880 Balance 2129 1969 1889 880 NAD RRR CTA soft NT/ND, feeding tube in place no LE or sacral edema CBC, BMP 04/11/19 05:05 04/11/19 05:05 Current Medications Acetaminophen (Tylenol Oral Solution -) 650 mg GT Q6H PRN PRN Reason: FEVER Last Admin: 04/10/19 22:15 Dose: 650 mg Ascorbic Acid (Vitamin C -) 500 mg GT DAILY [facility] Last Admin: 04/11/19 10:32 Dose: 500 mg Atorvastatin Calcium (Lipitor -) 40 mg GT HS [facility] Last Admin: 04/10/19 21:56 Dose: 40 mg Carbidopa/Levodopa (Sinemet 25/250 -) 1 each GT TID [facility] Last Admin: 04/11/19 06:30 Dose: 1 each Collagenase (Santyl -) 1 applic TP DAILY [facility]; Protocol Last Admin: 04/11/19 10:32 Dose: 1 applic Folic Acid (Folic Acid -) 1 mg GT DAILY [facility] Last Admin: 04/11/19 10:31 Dose: 1 mg Piperacillin Sod/Tazobactam (Sod 3.375 gm/ Dextrose) 50 mls @ 100 mls/hr IVPB Q8H-IV [facility]; Protocol Last Admin: 04/11/19 10:30 Dose: 100 mls/hr Lacosamide (Vimpat Liquid -) 200 mg PO BID [facility] Levetiracetam (Keppra Oral Solution -) 500 mg PO BID [facility] Last Admin: 04/11/19 10:31 Dose: 500 mg Magnesium Oxide (Mag-Ox -) 400 mg GT BID [facility] Last Admin: 04/11/19 10:31 Dose: 400 mg Metoclopramide HCl (Reglan Injection -) 10 mg IVPUSH TID [facility] Last Admin: 04/11/19 06:30 Dose: 10 mg Midodrine (Proamatine -) 5 mg GT TID-MID [facility] Last Admin: 04/11/19 10:31 Dose: 5 mg Mirtazapine (Remeron -) 7.5 mg GT HS [facility] Last Admin: 04/10/19 21:56 Dose: 7.5 mg Multi-Ingredient Ointment (Zinc Oxide) 1 applic TP BID [facility] Last Admin: 04/11/19 10:32 Dose: 1 applic Oxcarbazepine (Trileptal -) 300 mg PO TID [facility] Last Admin: 04/11/19 06:30 Dose: 300 mg Pantoprazole Sodium (Protonix Packets For Oral Suspension -) 40 mg PEG BID [facility] Last Admin: 04/11/19 10:31 Dose: 40 mg 68 year old woman with history of respiratory failure, stroke, CAD s/p STEMI, hypertension, hyperlipidemia, seizure disorder, MDD who presented with fever and respiratory distress and found to have serum na of 162 and Cr of 1.5. Baseline Cr 0.4-0.8. 1. Acute Kidney injury in setting of suspected sepsis 2. Hypernatremia 3. Lactic acidosis 4. Suspected Sepsis 5. Sacral wound Renal function improved and stable. electrolytes are within normal limits continue free water and tube feeds as ordered would recommend repeat BMP in 1 week as an outpatient discharge planning as per primary Thank you Constantino Mejía DO
[2019-04-11 13:45] VITALS: BP 123/69; TEMP 98.8
--- NOTE | 2019-04-11 16:34 | PN ---
Progress Note (short form) - Note Progress Note: G tube study confirms placement. Ok to use for feeds/meds. Dc planning today.
== END 2019-04-11 17:32 | DRG 720 ==
LOC: JER 13:47 → JERBED 21:33 → J4S 04-04 22:15
PROVIDERS: ADMIT Internal Medicine; ATTEND Internal Medicine
PROC: 30233N1 Transfusion of Nonautologous Red Blood Cells into Peripheral Vein, Percutaneous Approach (ICD-10-PCS; 2019-04-06)
PROC: 0D20XUZ Change Feeding Device in Upper Intestinal Tract, External Approach (ICD-10-PCS; principal; 2019-04-10)
DX: A41.9 Sepsis, unspecified organism (principal); I10 Essential (primary) hypertension; E78.5 Hyperlipidemia, unspecified; E87.0 Hyperosmolality and hypernatremia; N17.9 Acute kidney failure, unspecified; R62.7 Adult failure to thrive; R53.2 Functional quadriplegia; F32.9 Major depressive disorder, single episode, unspecified; J18.9 Pneumonia, unspecified organism; J96.21 Acute and chronic respiratory failure with hypoxia; D64.9 Anemia, unspecified; E87.2 Acidosis; K94.23 Gastrostomy malfunction; Y83.9 Surgical procedure, unspecified as the cause of abnormal reaction of the patient, or of later complication, without mention of misadventure at the time of the procedure; D72.829 Elevated white blood cell count, unspecified; M86.9 Osteomyelitis, unspecified; E86.0 Dehydration; J98.11 Atelectasis; G40.909 Epilepsy, unspecified, not intractable, without status epilepticus; K92.2 Gastrointestinal hemorrhage, unspecified; I25.10 Atherosclerotic heart disease of native coronary artery without angina pectoris; L89.154 Pressure ulcer of sacral region, stage 4
CPT/HCPCS: 36415; 36430; 36511; 71045-TC-FY; 74018-TC-FY; 74177-TC; 80048; 80053; 80177; 81003; 82272; 82728; 82803; 83540; 83550; 83605; 83735; 84100; 84484; 85025; 85044; 85610; 85730; 86850; 86900; 86901; 86922; 87040; 87086; 87186; 93005; 93010; 93306-TC; 99285-25; G0480; J0131; P9038; P9058